=== PATIENT | female | born 1955 | race Caucasian/White ===

== ENCOUNTER 2021-06-05 08:48 | Outpatient (REF) | payer OTHER, SELFPAY ==
[2021-06-05 09:06] LABS: MANUAL DIFF FLAG NO
[2021-06-05 09:26] LABS: Basophils Percent Auto 0.2 % (0-2); Hematocrit 41.2 % (37.0-47.0); Hemoglobin 13.2 g/dl (12.0-16.0); Imm Gran Abs Auto 0.01 X10*3/uL (0.00-0.03); Imm Gran Pct Auto 0.2 % (0.0-0.4); Lymphocytes Absolute Auto 0.4 X10*3/uL (1.2-4.9); Lymphocytes Percent Auto 9.9 % (20-40); Mean Corpuscular Volume 87.3 fL (80.0-98.0); Mean Platelet Volume 9.7 fL (9.4-12.3); Monocytes Absolute Auto 0.4 X10*3/uL (0.1-1.2); Monocytes Percent Auto 9.7 % (2-11); Neutrophils Absolute Auto 3.2 x10*3/uL (2.0-8.3); Platelet Count 161 X10*3/uL (160-400); Red Blood Count 4.72 X10*6/uL (4.20-5.50); Red Cell Distribution Width 13.3 % (11.0-16.0)
[2021-06-05 09:32] LABS: Estimated Average Glucose 97 mg/dL
[2021-06-05 10:07] LABS: Alanine Aminotransferase 14 U/L (0-31); Alkaline Phosphatase 93 U/L (39-117); Anion Gap 12 (12-20); Aspartate Amino Transferase 18 U/L (5-31); Bilirubin Total 0.6 mg/dL (0.0-1.0); Blood Urea Nitrogen 21 mg/dL (9-16); Calcium 9.2 mg/dL (8.4-10.2); Carbon Dioxide 27 mmol/L (22-29); Chloride 107 mmol/L (96-108); Cholesterol 166 mg/dL; Estimated Glomerular Filt Rate > 60; Glucose Fasting 100 mg/dL (60-99); HDL Cholesterol 46 mg/dL; LDL Cholesterol Calculated 96 mg/dl; Potassium 4.4 mmol/L (3.3-5.1); Sodium 142 mmol/L (135-145); Total Protein 6.1 g/dL (6.5-8.0); Triglycerides 122 mg/dL
[2021-06-05 10:14] LABS: TSH reflex Free T4 1.26 uIU/mL (0.32-4.0)
[2021-06-05 10:31] LABS: Folate 8.4 ng/mL (> or = 4.0); Vitamin B12 < 146 pg/mL (200-900)
[2021-06-09 13:40] LABS: Vitamin D 25-OH, D2 <4 ng/mL; Vitamin D 25-OH, D3 21 ng/mL; Vitamin D 25-OH, Total 21 ng/mL (30-100)
== END 2021-06-05 08:49 | disposition home or self-care (01) ==
LOC: HO.LAB 08:48
PROVIDERS: PCP Nurse Practitioner Acute Care; Visit Provider Nurse Practitioner Acute Care
DX: I10 Essential (primary) hypertension (principal)
CPT/HCPCS: 36415; 80053; 80061; 82306; 82607; 82746; 83036; 84443; 85025

== ENCOUNTER 2021-06-24 17:16 | Emergency (ER) | payer OTHER, SELFPAY ==
[2021-06-24 17:20] VITALS: BP 159/77; PULSE 76; RESP 18; TEMP 36.1; O2SAT 97; BMI 37.3
--- NOTE | 2021-06-24 18:21 | ED.SKABFB ---
HPI - Skin/Abscess/Foreign Bdy General Chief complaint: Skin/Abscess/Foreign Body Stated complaint: rash on chest/face/back Time Seen by Provider: 06/24/21 17:39 Source: patient Mode of arrival: ambulatory History of Present Illness HPI narrative: 66-year-old female with a past medical history of hypertension, anxiety, depression, presenting to the ED complaining of pruritic rash to scalp, forehead, face, chest, back, and arms x1.5 months. Reports rash is spreading. Admits was seen at Urgent Care given p.o. steroids and topical steroids without relief. States itching is becoming out of control. Denies new exposures/lotions or detergents, taken/insect bites, fever, new medications, travel, others with similar symptoms MD complaint: rash Onset (ago): month(s) Related Data Previous Rx's Medication Instructions Recorded clonidine HCl 0.2 mg tablet 0.2 mg PO BEDTIME #90 tab 05/18/21 duloxetine 60 mg capsule,delayed 60 mg PO DAILY #90 cap 05/18/21 release ibuprofen 800 mg tablet 800 mg PO Q8H PRN #14 tab 05/18/21 lisinopril 20 1 tab PO DAILY #90 tab 05/18/21 mg-hydrochlorothiazide 12.5 mg tablet triamcinolone acetonide 0.5 % 1 appl TOPICAL BID #15 g 05/29/21 topical cream cyanocobalamin (vitamin B-12) 1,000 mcg PO DAILY #30 cap 06/05/21 1,000 mcg capsule calcitriol 0.25 mcg capsule 0.25 mcg PO DAILY #30 cap 06/09/21 cetirizine 10 mg capsule (Zyrtec) 10 mg PO DAILY #14 cap 06/24/21 clobetasol 0.05 % scalp solution 1 appl TOPICAL DAILY PRN #50 ml 06/24/21 diphenhydramine HCl 25 mg capsule 25 mg PO TID PRN #14 cap 06/24/21 (Benadryl) ibuprofen 400 mg tablet 400 mg PO Q6H 7 Days #14 tab 06/24/21 prednisone 20 mg tablet 40 mg PO DAILY 5 Days #10 tab 06/24/21 Allergies Allergy/AdvReac Type Severity Reaction Status Date / Time No Known Allergies Allergy Verified 06/24/21 17:24 Review of Systems Review of Systems: Constitutional: No Fever, No Chills ENT/Mouth: No Ear Pain, No Nasal Congestion, No sore throat, No Rhinorrhea, No Swallowing Difficulty Cardiovascular: No Chest Pain, No SOB Respiratory: No Cough, No Sputum, No Wheezing Gastrointestinal: No Nausea, No Vomiting, No Diarrhea, No Constipation, No Abdominal pain Genitourinary: No Dysuria, No Urgency, No Flank Pain Musculoskeletal: No joint pain, No Myalgias, No Joint Swelling Skin: No Skin Lesions, + rash Neuro: No Weakness, No Numbness, No Paresthesias Yes all other systems are reviewed and are negative [facility] Past Medical History Attestation statement: The following information was validated with the patient. Medical History Anxiety Hypertension Insomnia Lumbar degenerative disc disease Major depression, chronic Surgical History History of arthroscopic knee surgery History of section History of cholecystectomy History of fusion of cervical spine History of gastric bypass History of hysterectomy History of tonsillectomy Family History Family History Mother No problems noted. Father No problems noted. Brother Substance use disorder Social History Social History Housing: House Patient Tobacco Use Status: Former Tobacco user Tobacco use type: Cigarette e-Cigarette/Vaping Use: Never Used Advance Directives: No Advance Directives Information Provided: No service: No Current occupational status: unemployed and retired Cognitive needs: No Hearing needs: No Vision needs: No Physical Exam Vital Signs: Vital Signs: Last Vital Signs Temp 97 F 06/24/21 17:20 Pulse 76 06/24/21 17:20 Resp 18 06/24/21 17:20 BP 159/77 H 06/24/21 17:20 Pulse Ox 97 06/24/21 17:20 BMI result Body Mass Index 37.3 Const: General: cooperative, healthy appearing, no acute distress, well developed and alert Orientation/consciousness: patient oriented x3 Limitations: no limitations HEENT: Other: No mucous membrane involvement Head: Yes normal to inspection and Yes atraumatic Ears: hearing grossly normal bilaterally General nose exam: Normal external nose present Face and sinus: Yes normal facial exam Eyes: General: appearance normal, both eyes and all related structures EOM: EOMs intact bilaterally Neck: Neck: Yes normal visual inspection and Yes no meningeal signs Resp: Effort & Inspection: normal respiratory effort and no respiratory distress Auscultation: clear to auscultation bilaterally Cardio: Rate: regular rate Heart sounds: S1 normal heart sound present and S2 normal heart sound present Skin: Other: + erythematous inflamed patch likelike rash noted to forehead and entire scalp, with skin thickening, no scaling, no pustules or drainage. + erythematous macules noted to chest, back, and arms rash blanchable. Not warm. No evidence of cellulitis. No palm or sole involvement Rashes: rashes noted Wounds: no wounds Neuro: General: patient oriented x3, tone normal and no meningeal signs Gait exam (Neuro): Normal gait present Extrem: General: Yes normal to inspection MDM - Skin/Abscess/Foreign Bdy MDM Narrative Medical decision making narrative: 66-year-old female with a past medical history of hypertension, anxiety, depression, presenting to the ED complaining of pruritic rash to scalp, forehead, face, chest, back, and arms x1.5 months. On exam vital signs stable, NAD, physical exam as above. Concern for atopic dermatitis vs psoriasis vs ? Allergic reaction although lower concern with duration of symptoms. Symptoms not consistent with SJS or TENs Plan: Symptomatic remedies, dermatology follow-up Medical Records Attestation: I reviewed the patient's medical records. Lab Data Attestation: I reviewed the patient's lab results. Discharge Plan Discharge Clinical Impression: Atopic dermatitis Patient Disposition: Home, Self-Care Instructions: Dermatitis (ED) Additional Instructions: You need to follow-up with Dermatology Clobetasol is a topical solution for her scalp, use as prescribed Prednisone as an oral steroid this will help with itching/rash. In addition take Benadryl at night as well make you drowsy, and Zyrtec during the day If symptoms persist or worsen, you have fever, or area begins to look infected please return to the ED Prescriptions: New clobetasol 0.05 % solution 1 appl topical DAILY PRN (Reason: rash) Qty: 50 0RF diphenhydramine HCl [Benadryl] 25 mg capsule 25 mg PO TID PRN (Reason: itching) Qty: 14 0RF Zyrtec 10 mg capsule 10 mg PO DAILY Qty: 14 0RF prednisone 20 mg tablet 40 mg PO DAILY 5 Days Qty: 10 0RF ibuprofen 400 mg tablet 400 mg PO Q6H 7 Days Qty: 14 0RF No Action triamcinolone acetonide 0.5 % cream 1 appl topical BID Qty: 15 0RF cyanocobalamin (vitamin B-12) 1,000 mcg capsule 1,000 mcg PO DAILY Qty: 30 2RF calcitriol 0.25 mcg capsule 0.25 mcg PO DAILY Qty: 30 2RF clonidine HCl 0.2 mg tablet 0.2 mg PO BEDTIME Qty: 90 0RF duloxetine 60 mg capsule,delayed release(DR/EC) 60 mg PO DAILY Qty: 90 0RF lisinopril-hydrochlorothiazide 20-12.5 mg tablet 1 tab PO DAILY Qty: 90 0RF ibuprofen 800 mg tablet 800 mg PO Q8H PRN (Reason: pain) Qty: 14 0RF Referrals: Bambi Reynolds PA [Physician [facility]] - Terrance Porter MD [Physician] - Genaro Cardoso MD [Physician] - Interventions: ED Discharge Assessment Last Done: 06/24/21 18:36 Discharge Date/Time: 06/24/21 18:37
== END 2021-06-24 18:37 | disposition home or self-care (01) ==
PROVIDERS: Emergency Provider Emergency Medicine Emergency Medical Services; PCP Nurse Practitioner Acute Care
DX: L20.9 Atopic dermatitis, unspecified (principal); I10 Essential (primary) hypertension
CPT/HCPCS: 99283

== ENCOUNTER 2021-07-17 10:57 | Emergency (ER) | payer OTHER, SELFPAY ==
[2021-07-17 11:06] VITALS: BP 131/74; PULSE 72; RESP 20; TEMP 36.2; O2SAT 100; BMI 35.4
--- NOTE | 2021-07-17 16:20 | ED_ITS ---
HPI - General Adult General Chief complaint: Skin/Abscess/Foreign Body Stated complaint: Rash for 3 months/facial swelling Time Seen by Provider: 07/17/21 14:56 Source: patient Mode of arrival: ambulatory Limitations: no limitations History of Present Illness HPI narrative: 66-year-old female healthy presents to ED for 3 months of age she tingling rash on face, chest, scalp, and upper extremities. Patient has been seen in the ER twice and been on steroids, Benadryl, and clobetasol. Patient seen by primary care provider on 30 of June and has dermatology appointment on the 28 of July. Patient also has a referral to Allergy and immunology doctor in October. Patient denies ever having any fever, chest pain, shortness of breath, or joint swelling. Patient denies any new cosmetics, foods, detergents, or new clothes. Patient states no one else at home having the symptoms. Patient denies going to the wound to being bitten by ticks. Related Data Previous Rx's Medication Instructions Recorded clonidine HCl 0.2 mg tablet 0.2 mg PO BEDTIME #90 tab 05/18/21 duloxetine 60 mg capsule,delayed 60 mg PO DAILY #90 cap 05/18/21 release ibuprofen 800 mg tablet 800 mg PO Q8H PRN #14 tab 05/18/21 lisinopril 20 1 tab PO DAILY #90 tab 05/18/21 mg-hydrochlorothiazide 12.5 mg tablet triamcinolone acetonide 0.5 % 1 appl TOPICAL BID #15 g 05/29/21 topical cream cyanocobalamin (vitamin B-12) 1,000 mcg PO DAILY #30 cap 06/05/21 1,000 mcg capsule calcitriol 0.25 mcg capsule 0.25 mcg PO DAILY #30 cap 06/09/21 cetirizine 10 mg capsule (Zyrtec) 10 mg PO DAILY #14 cap 06/24/21 clobetasol 0.05 % scalp solution 1 appl TOPICAL DAILY PRN #50 ml 06/24/21 diphenhydramine HCl 25 mg capsule 25 mg PO TID PRN #14 cap 06/24/21 (Benadryl) ibuprofen 400 mg tablet 400 mg PO Q6H 7 Days #14 tab 06/24/21 prednisone 10 mg tablet 10 mg PO DAILY #63 tab 07/04/21 cetirizine 10 mg capsule 10 mg PO DAILY 10 Days #10 cap 07/17/21 hydroxyzine HCl 50 mg tablet 50 mg PO TID PRN 7 Days #21 tab 07/17/21 prednisone 20 mg tablet 40 mg PO DAILY 5 Days #10 tab 07/17/21 Allergies Allergy/AdvReac Type Severity Reaction Status Date / Time No Known Allergies Allergy Verified 06/30/21 10:35 Review of Systems Review of Systems: Itchy rash Yes all other systems are reviewed and are negative [facility] Past Medical History Medical History (Updated 07/17/21 @ 16:37 by CHI Gonzales) Anxiety Encounter to establish care Hypertension Insomnia Lumbar degenerative disc disease Major depression, chronic Surgical History History of arthroscopic knee surgery History of section History of cholecystectomy History of fusion of cervical spine History of gastric bypass History of hysterectomy History of tonsillectomy Family History Family History Mother No problems noted. Father No problems noted. Brother Substance use disorder Social History Social History Housing: House Patient Tobacco Use Status: Former Tobacco user Tobacco use type: Cigarette e-Cigarette/Vaping Use: Never Used Advance Directives: No Advance Directives Information Provided: Yes Patient : No service: No Current occupational status: unemployed and retired Cognitive needs: No Hearing needs: No Vision needs: No Physical Exam ED Vital Signs: Vital Signs - 24 hr 07/17/21 11:06 Temperature 97.1 F Pulse Rate 72 Respiratory Rate 20 Blood Pressure 131/74 Pulse Oximetry 100 BMI result Body Mass Index 35.4 Const General: cooperative, healthy appearing, comfortable, no acute distress, well developed, alert, awake and Physically active Orientation/consciousness: patient oriented x3 HENMT Other: . negative for facial swelling. Head: Yes normal to inspection, Yes No palpable skull fracture present, Yes normocephalic, Yes atraumatic and No abrasion Head images: 1. Positive for allergic reaction rash. Negative for any vesicles or peeling. Negative for any weeping. Negative for any lip swelling, tongue swelling, or swelling of uvula. 2. Positive for allergic reaction rash. Negative for any vesicles or peeling. Negative for any weeping. Negative for any lip swelling, tongue swelling, or swelling of uvula. Eyes General: appearance normal, both eyes and all related structures Neck Neck: Yes normal visual inspection, Yes full ROM, Yes no lymphadenopathy, Yes no meningeal signs, Yes trachea midline, Yes supple, No anterior neck swelling and No tender Neck images: 1. Positive for allergic reaction rash. Negative for any vesicles or peeling. Negative for any weeping. Chest Chest palpation & inspection: normal inspection of the chest and normal palpation of entire chest wall Resp Effort & Inspection: normal respiratory effort and able to speak in complete sentences Auscultation: clear to auscultation bilaterally Cardio Jugular venous distension: no JVD Heart sounds: S1 normal heart sound present and S2 normal heart sound present GI Inspection: Yes normal to inspection and No abdominal wall ecchymosis Palpation (GI): Soft to palpation, not firm, nontender and no guarding General: No CVA tenderness and Yes no CVA tenderness Back/Spine/Pelvis Back: no CVA tenderness, No CVA tenderness and No back tenderness Skin Other: Allergic burning rash. General skin exam: no rashes or lesions noted and elasticity normal Neuro General: patient oriented x3, gait normal, tone normal, no meningeal signs and CN's II-XI intact bilaterally Cranial nerves: Yes CN's II-XII intact bilaterally Extrem Other: Mild upper extremities General: Yes normal to inspection and Yes full ROM Psych Appearance: grossly normal, well kempt and not disheveled Course Course Course Narrative: Allergic reaction rash. Reevaluation(s) Reevaluation #1: No further intervention needed in the ER visit. Patient given reassurance and inform necessity to keep appointment with digital marketing assistant. Patient was informed to call digital marketing assistant to see the CT of earlier appointment. She also formed to call stencil typist and conductor sleeping car to make sure if she can come in earlier. Patient will be discharged with Atarax, Pepcid, and steroids Time: 16:31 Medical Decision Making MDM Narrative Medical decision making narrative: A topic dermatitis Discharge Plan Discharge Clinical Impression: Atopic dermatitis Patient Disposition: Home, Self-Care Instructions: Dermatitis (ED) Additional Instructions: You will be prescribed with steroids, Atarax, and Pepcid. Please call digital marketing assistant or early appointment. Also called stencil typist and conductor sleeping car for earlier appointment. Return to the ED immediately for sensation of throat closing, shortness of breath, lip swelling, chest pain, worsening rash, tongue s welling, fever, chills, or any other concerning symptoms. Prescriptions: New prednisone 20 mg tablet 40 mg PO DAILY 5 Days Qty: 10 0RF hydroxyzine HCl 50 mg tablet 50 mg PO TID PRN (Reason: itching) 7 Days Qty: 21 0RF cetirizine 10 mg capsule 10 mg PO DAILY 10 Days Qty: 10 0RF No Action triamcinolone acetonide 0.5 % cream 1 appl topical BID Qty: 15 0RF cyanocobalamin (vitamin B-12) 1,000 mcg capsule 1,000 mcg PO DAILY Qty: 30 2RF calcitriol 0.25 mcg capsule 0.25 mcg PO DAILY Qty: 30 2RF prednisone 10 mg tablet 10 mg PO DAILY Qty: 63 0RF Rx Instructions: Take 6 tablets for 3 days then, Take 5 tablets for 3 days then, Take 4 tablets for 3 days then, Take 3 tablets for 3 days then, Take 2 tablets 3 days then, Take 1 tablet 3 days and stop clobetasol 0.05 % solution 1 appl topical DAILY PRN (Reason: rash) Qty: 50 0RF diphenhydramine HCl [Benadryl] 25 mg capsule 25 mg PO TID PRN (Reason: itching) Qty: 14 0RF Zyrtec 10 mg capsule 10 mg PO DAILY Qty: 14 0RF ibuprofen 400 mg tablet 400 mg PO Q6H 7 Days Qty: 14 0RF clonidine HCl 0.2 mg tablet 0.2 mg PO BEDTIME Qty: 90 0RF duloxetine 60 mg capsule,delayed release(DR/EC) 60 mg PO DAILY Qty: 90 0RF lisinopril-hydrochlorothiazide 20-12.5 mg tablet 1 tab PO DAILY Qty: 90 0RF ibuprofen 800 mg tablet 800 mg PO Q8H PRN (Reason: pain) Qty: 14 0RF Interventions: ED Discharge Assessment Last Done: 07/17/21 17:04 Discharge Date/Time: 07/17/21 17:14 Print Language: Greenlandic
== END 2021-07-17 17:14 | disposition home or self-care (01) ==
PROVIDERS: Emergency Provider Emergency Medicine; PCP Nurse Practitioner Acute Care
DX: L20.9 Atopic dermatitis, unspecified (principal); I10 Essential (primary) hypertension
CPT/HCPCS: 99283

== ENCOUNTER 2021-08-08 10:25 | Outpatient (REF) | payer OTHER, SELFPAY ==
--- NOTE | ~2021-08-08 | MM_ITS ---
EXAMINATION: MM SCREENING DIGITAL BREAST TOMOSYNTHESIS, BILATERAL CLINICAL INFORMATION: Screening. Asymptomatic. The lifetime risk of breast cancer based on the Tyrer-Cuzick Model is 12.1%. COMPARISON: Mammography: None. TECHNIQUE: Digital breast tomosynthesis is performed in both the craniocaudal and mediolateral oblique views along with computer-aided detection (CAD). Synthesized 2D images are generated from the tomosynthesis. FINDINGS: There are scattered areas of fibroglandular density (ACR BI-RADS breast composition Category b). About the anterior aspect of the right breast there is an irregularly marginated density with some calcifications present for which spot magnification views are recommended. Within the left breast about the deep lateral aspect there is a 4 x 3 mm circumscribed density with calcification present. Spot magnification views of this location are recommended as well. MM/MM tomosynthesis screening BI IMPRESSION: Bilateral breast densities for further evaluation as described. ASSESSMENT: BI-RADS 0: Incomplete - Need Additional Imaging Evaluation RECOMMENDATION: 1. Additional views of the bilateral breasts. 2. Targeted ultrasound if warranted after review of the additional views. 3. Radiology department staff will contact the patient for additional imaging.
--- NOTE | ~2021-08-08 | MM_ITS ---
EXAMINATION: BONE DENSITOMETRY CLINICAL INDICATION: Menopause. COMPARISON: None (current study represents initial baseline exam). TECHNIQUE: Using a [employer] DXA System (software version: 13.1) manufactured by [employer]), dual-energy x-ray absorptiometry was performed of the lumbar spine and left hip. The images are of good technical quality. Summary results are attached. FINDINGS: AP SPINE L1-L4: BMD 1.192 g/cm2, Z-score 0.6, T-score 0.1, normal. LEFT FEMUR, NECK: BMD 0.742 g/cm2, Z-score -1.4, T-score -2.1, osteopenia. LEFT FEMUR, TOTAL: BMD 0.754 g/cm2, Z-score -1.6, T-score -2.0, osteopenia. IDENTIFIED RISK FACTORS: Menopause, hysterectomy, bilateral oophorectomy, family history (parent hip fracture), glucocorticoids (chronic), secondary osteoporosis. HISTORY OF FRACTURE: None listed. MEDICATIONS: Calcium, vitamin D. MM/XR DEXA axial skeleton IMPRESSION: 1. DIAGNOSIS: Osteopenia based on the lowest T-score value of -2.1 in the femoral neck applying World Health Organization criteria. 2. 10-YEAR FRACTURE RISK PREDICTION, FRAX: Major osteoporotic fracture (clinical spine, forearm, hip or shoulder) 25.7%. Hip fracture 2.4%. 3. Treatment Recommendations: NOF guidelines recommend consideration for treatment in postmenopausal women and men age 50 and older presenting with the following: -A hip or vertebral (clinical or morphometric) fracture. -T-score less than or equal to -2.5 at the femoral neck or spine after appropriate evaluation to exclude secondary causes. -Low bone mass at the hip or spine and a 10-year fracture probability by FRAX of greater than or equal to 3% for hip fracture or greater than or equal to 20% for major osteoporotic fracture based on the [place] adapted WHO algorithm. 4. Other Recommendations: All treatment decisions require clinical judgment and consideration of individual patient factors, including patient preferences, comorbidities, previous drug use, risk factors not captured in the FRAX model (e.g. frailty, falls, vitamin D deficiency, increased bone turnover, interval significant decline in bone density) and possible under or overestimation of fracture risk by FRAX. Additional medical evaluation for secondary cause of low bone mineral density may be appropriate. FUTURE SCAN RECOMMENDATION: People with diagnosed cases of osteoporosis or at high risk for fracture should have regular bone mineral density tests. For patients eligible for Medicare, routine testing is allowed once every 2 years. The testing frequency can be increased to one year for patients who have rapidly progressing disease, those who are receiving or discontinuing medical therapy to restore bone mass, or have additional risk factors.
== END 2021-08-08 10:26 | disposition home or self-care (01) ==
LOC: HO.MAMMO 10:25
PROVIDERS: PCP Nurse Practitioner Acute Care; Visit Provider Nurse Practitioner Family
DX: Z12.31 Encounter for screening mammogram for malignant neoplasm of breast (principal); Z13.820 Encounter for screening for osteoporosis; Z78.0 Asymptomatic menopausal state; M85.80 Other specified disorders of bone density and structure, unspecified site
CPT/HCPCS: 77063; 77067; 77080

== ENCOUNTER 2021-08-10 11:22 | Outpatient (REF) | payer OTHER, SELFPAY ==
[2021-08-15 07:55] LABS: SM/Ribonucleoprotein Ab <1.0 NEG AI (<1.0 NEG); Smith Protein <1.0 NEG AI (<1.0 NEG)
[2021-08-15 10:36] LABS: ANA Pattern 2 Nuclear, Speckled; ANA Titer 2 1:40 titer; Anti Nuclear Antibody Pattern Nuclear, Homogeneous; Anti Nuclear Antibody Screen POSITIVE (NEGATIVE)
[2021-08-15 12:26] LABS: Aldolase 7.2 U/L (<=8.1)
== END 2021-08-10 11:23 | disposition home or self-care (01) ==
LOC: HO.LAB 11:22
PROVIDERS: PCP Nurse Practitioner Family; Visit Provider Dermatology
DX: L30.9 Dermatitis, unspecified (principal); M33.12 Other dermatomyositis with myopathy
CPT/HCPCS: 36415; 82085; 82550; 86038; 86039; 86235

== ENCOUNTER → 2021-09-12 14:51 | Outpatient (BNVA) | payer OTHER, SELFPAY | PROVIDERS: PCP Nurse Practitioner Family; Visit Provider Internal Medicine Endocrinology, Diabetes & Metabolism | DX: M85.80 Other specified disorders of bone density and structure, unspecified site (principal) | CPT/HCPCS: 99202 ==

== ENCOUNTER 2021-09-13 13:03 | Outpatient (REF) | payer OTHER, SELFPAY ==
--- NOTE | ~2021-09-13 | MM_ITS ---
EXAMINATION: MM DIAGNOSTIC DIGITAL BREAST TOMOSYNTHESIS, BILATERAL US DIAGNOSTIC ULTRASOUND BREAST, RIGHT CLINICAL INFORMATION: Recall from screening for bilateral findings: Punctate density posterior outer left breast; calcifications and density anterior right breast. Patient notes history dermatomyositis. BRCA negative. Family history breast cancer, father approximately age 60. COMPARISON: Mammography: 09/13/2021, outside mammography 10/19/2019, 11/03/2018, 10/17/2018 ([place], [place]). TECHNIQUE: Digital breast tomosynthesis is performed. 2D images are generated from the tomosynthesis. The following views are obtained: Magnification right CC x2, magnification right ML, magnification left CC, bilateral spot CC, spot right ML. Ultrasound right breast is targeted to the retroareolar and periareolar region. Grayscale imaging and color Doppler are performed without and with harmonics. FINDINGS: There are scattered areas of fibroglandular density (ACR BI-RADS breast composition Category b). Additional views left breast show no asymmetric density or abnormal calcifications in the area for recall. Left breast may be reassessed again in one year at time of annual exam. Additional views right breast shows subtle increased stromal markings retroareolar breast just medial to midline since outside imaging. There is no focal mass or focal architectural abnormality. There are scattered subtle new amorphous calcifications in this area, some possibly vascular. There are other incidental calcifications in the central upper right breast which are clearly benign rim type. Ultrasound right breast demonstrates no focal cystic or solid mass or architectural abnormality. No focal duct ectasia. No ultrasound correlate. Results and management options are discussed with the patient. There is no history right breast trauma. Given the subtle changes right breast, family history, and personal history dermatomyositis, stereotactic sampling targeted to the amorphous calcifications retroareolar area is suggested. Patient is in agreement. MM/MM tomosynthesis added view BI IMPRESSION: Subtle increased stromal markings with scattered faint amorphous calcifications medial retroareolar right breast. ASSESSMENT: BI-RADS 4: Suspicious RECOMMENDATION: Stereotactic sampling retroareolar right breast medial to midline. This patient's information was entered into a reminder system with a target due date for their next mammogram.
== END 2021-09-13 13:04 | disposition home or self-care (01) ==
LOC: HO.MAMMO 13:03
PROVIDERS: PCP Nurse Practitioner Family; Visit Provider Nurse Practitioner Family
DX: R92.2 Inconclusive mammogram (principal)
CPT/HCPCS: 76642; 77062; 77066

== ENCOUNTER 2021-09-18 14:48 | Outpatient (REF) | payer OTHER, SELFPAY ==
[2021-09-18 16:42] LABS: Creatinine, mg/dL 95.25
[2021-09-18 16:46] LABS: Creatinine, mg/dL 95.54
[2021-09-18 17:56] LABS: Creatinine, 24Hr Urine 0.7 G/Day (1.0-2.0); Sodium 24 Hr Urine 90.3 mmol/Day (40-220); Total Volume 24 Hour Urine 700 mL
[2021-09-18 17:57] LABS: Creatinine, 24Hr Urine 0.7 G/Day (1.0-2.0); Total Volume 24 Hour Urine 700 mL
[2021-09-20 18:32] LABS: Calcium, 24 Hr Urine 113 mg/24 h; Calcium/Creatinine Ratio 176 mg/g creat (30-275); Creatinine 24Hr Urine 0.64 g/24 h (0.50-2.15)
== END 2021-09-18 14:49 | disposition home or self-care (01) ==
LOC: HO.LNP 14:48
PROVIDERS: Visit Provider Internal Medicine Endocrinology, Diabetes & Metabolism
DX: M85.80 Other specified disorders of bone density and structure, unspecified site (principal)
CPT/HCPCS: 82340; 82570; 84300

== ENCOUNTER 2021-09-20 09:34 | Outpatient (REF) | payer OTHER, SELFPAY ==
--- NOTE | ~2021-09-20 | MM_ITS ---
EXAMINATION: STEREOTACTIC TOMOSYNTHESIS-GUIDED VACUUM-ASSISTED BREAST BIOPSY, RIGHT SPECIMEN RADIOGRAPH, RIGHT POST PROCEDURE DIGITAL MAMMOGRAM, RIGHT CLINICAL INFORMATION: Subtle increased stromal markings with scattered faint amorphous calcifications. Recent diagnosis dermatomyositis. BRCA negative. Family history breast cancer, father approximately age 60. COMPARISON: Mammography 08/08/2021, 09/13/2021. TECHNIQUE/PROCEDURE: Informed consent was obtained from the patient after discussion of the benefits, risks, and alternatives to biopsy today. Patient appeared to understand. Gave opportunity for questions. Patient signed consent form. BIOPSY TABLE: [employer] Aff[employer] Prone Biopsy System. LESION: Amorphous calcifications anterior breast and subtle increased stromal markings. LOCAL ANESTHESIA: 10 mL carbonated 1% lidocaine; 10 mL 1% lidocaine with epinephrine. DERMATOTOMY: Single skin asa dermatotomy performed. NEEDLE: [employer] 9-gauge vacuum assisted core biopsy device. APPROACH: Medial lateral. TARGETING: Combination of digital breast tomosynthesis and stereotactic digital mammography used for targeting. CORES: 10. CLIP: [employer] T-shaped marker. SPECIMEN RADIOGRAPH: Specimen radiograph is taken in separate room using digital mammography. The index calcifications are in the excised cores. There are over 25 calcifications in the cores. POST PROCEDURE UNILATERAL DIGITAL MAMMOGRAM: The post biopsy mammogram is performed in separate room using separate digital mammography equipment from the biopsy procedure. CC and LM views are obtained. There are scattered areas of fibroglandular density (breast composition category: b). The clip marker is in position. The calcifications are decreased at the biopsy site. No gross hematoma. The patient tolerated the procedure well. No immediate complications. Home instructions reviewed with the patient. Final pathology results are pending. MM/MM stereotactic biopsy RT IMPRESSION: 1. Digital tomosynthesis-guided core biopsy right breast with clip placement. 2. Specimen radiograph taken and post procedure mammogram. There is satisfactory positioning of the biopsy clip. 3. Final pathology results pending. An addendum report will be issued.
[2021-09-20] MEDS: Sodium Bicarbonate 8.4% 50 MEQ/50 ML VIAL SUBCUT (11:06)
== END 2021-09-20 09:35 | disposition home or self-care (01) ==
LOC: HO.MAMMO 09:34
PROVIDERS: Radiology Diagnostic Radiology; PCP Nurse Practitioner Family; Visit Provider Surgery
DX: R92.1 Mammographic calcification found on diagnostic imaging of breast (principal)
CPT/HCPCS: 19081; 36415; 88305; 88341; 88342; 88360; 88374; 99202; A4648

== ENCOUNTER → 2021-09-25 12:57 | Outpatient (BNVA) | payer OTHER, SELFPAY | PROVIDERS: PCP Nurse Practitioner Family; Visit Provider Surgery | DX: C50.911 Malignant neoplasm of unspecified site of right female breast (principal); Z98.890 Other specified postprocedural states | CPT/HCPCS: 99212 ==

== ENCOUNTER 2021-09-28 16:33 | Outpatient (REF) | payer OTHER, SELFPAY ==
--- NOTE | ~2021-09-28 | US_ITS ---
EXAMINATION: US VENOUS ULTRASOUND WITH DOPPLER LOWER EXTREMITY, BILATERAL CLINICAL INFORMATION: History of pulmonary embolism. COMPARISON: None TECHNIQUE: Ultrasound of the deep veins is performed from the hip to the calf with compression sonography and color and pulse Doppler assessment. Spectral analysis with color-flow imaging is performed. FINDINGS: RIGHT: There is normal venous compression and respiratory variation and augmented flow. The visualized common femoral vein, superficial femoral vein, profunda femoral vein, popliteal vein, and the trifurcation region shows no evidence of deep venous thrombosis. There is no significant popliteal fossa cyst. LEFT: There is normal venous compression and respiratory variation and augmented flow. The visualized common femoral vein, superficial femoral vein, profunda femoral vein, popliteal vein, and the trifurcation region shows no evidence of deep venous thrombosis. There is no significant popliteal fossa cyst. If the patient's symptoms persist, followup ultrasound in 5 days 7 days might be of value to exclude proximal propagation from a non-visualized calf vein. US/US venous duplex LE BI IMPRESSION: No DVT demonstrated in the both lower extremity.
== END 2021-09-28 16:34 | disposition home or self-care (01) ==
LOC: HO.US 16:33
PROVIDERS: Visit Provider Internal Medicine
DX: I82.403 Acute embolism and thrombosis of unspecified deep veins of lower extremity, bilateral (principal); M33.90 Dermatopolymyositis, unspecified, organ involvement unspecified
CPT/HCPCS: 93970

== ENCOUNTER → 2021-10-04 08:08 | Outpatient (BNV) | payer MEDICARE, OTHER, MEDICAID, SELFPAY | PROVIDERS: PCP Nurse Practitioner Family; Referring Provider Surgery; Visit Provider Internal Medicine Medical Oncology | DX: C50.911 Malignant neoplasm of unspecified site of right female breast (principal) | CPT/HCPCS: 99204; 99212; 99213; 99214 ==

== ENCOUNTER 2021-10-05 11:00 | Outpatient (REF) | payer OTHER, SELFPAY ==
[2021-10-05 14:04] LABS: C Reactive Protein 0.16 mg/dL (< or = 0.50)
[2021-10-05 14:26] LABS: Vitamin D 25-OH Total 41.8 ng/mL (>30)
[2021-10-05 14:36] LABS: Erythrocyte Sedimentation Rate 7 MM/HR (0-20)
[2021-10-06 04:45] LABS: HBsAGNum1 0.16 S/CO (0.00-0.99); Hepatitis A Antibody IgM 0.13 Index (0-0.79); Hepatitis B Surface Antigen Negative (Negative); ~HepC Num1 0.05 S/CO (0.00-0.79); ~Hepatitis A Antibody IgM Nonreactive (Nonreactive); ~Hepatitis B Surface Antibody REACTIVE (Nonreactive); ~Hepatitis C Antibody Nonreactive (Nonreactive)
[2021-10-06 07:58] LABS: HBc Num2 8.29 S/CO; Hepatitis B Core Antibody Reactive (Nonreactive)
[2021-10-07 23:32] LABS: TS Negative Control Passed; TS Panel A 0; TS Panel B 0; TS Positive Control Passed; TSpotTB Negative (Negative)
[2021-10-18 09:22] LABS: EJ Autoantibodies NOT DETECTED (NOT DETECTED); MI 2 Autoantibodies NOT DETECTED (NOT DETECTED); OJ Autoantibodies NOT DETECTED (NOT DETECTED); PL 12 Autoantibodies NOT DETECTED (NOT DETECTED); PL 7 Autoantibodies NOT DETECTED (NOT DETECTED)
== END 2021-10-05 11:01 | disposition home or self-care (01) ==
LOC: HO.10HDL 11:00
PROVIDERS: Absent Provider Nurse Practitioner Family; Referring Provider Internal Medicine Endocrinology, Diabetes & Metabolism; Visit Provider Internal Medicine Rheumatology
DX: M85.80 Other specified disorders of bone density and structure, unspecified site (principal); M33.90 Dermatopolymyositis, unspecified, organ involvement unspecified; E55.9 Vitamin D deficiency, unspecified; C50.911 Malignant neoplasm of unspecified site of right female breast; Z79.899 Other long term (current) drug therapy
CPT/HCPCS: 36415; 82306; 82550; 84100; 84443; 85652; 86140; 86481; 86704; 86705; 86706; 86709; 86803; 87340; 99202

== ENCOUNTER → 2021-10-16 13:33 | Outpatient (REF) | payer OTHER, SELFPAY ==
--- NOTE | ~2021-10-16 | XR_ITS ---
EXAMINATION: XR CHEST CLINICAL INFORMATION: Dermatopolymyositis COMPARISON: None TECHNIQUE: 2 views of the chest were obtained. FINDINGS: The cardiac and mediastinal contours are normal. The lungs are clear. There is no pleural effusion or pneumothorax. There are degenerative changes of the thoracic spine. There are postsurgical changes to the lower cervical spine. XR/XR chest 2V IMPRESSION: No evidence for acute disease in the chest.
--- NOTE | 2021-10-16 13:39 | ECG_ITS ---
Test Reason : DERMATOPOLYMYOSITIS Blood Pressure : / mmHG Vent. Rate : 081 BPM Atrial Rate : 081 BPM P-R Int : 130 ms QRS Dur : 076 ms QT Int : 360 ms P-R-T Axes : 085 048 050 degrees QTc Int : 418 ms Sinus rhythm with Premature atrial complexes Low voltage QRS Borderline ECG No previous ECGs available Referred By: Panda Felix Electronically Signed By:SHEA MIR
== END ==
LOC: HO.CARD 13:33
PROVIDERS: PCP Nurse Practitioner Family; Visit Provider Internal Medicine Rheumatology
DX: M33.90 Dermatopolymyositis, unspecified, organ involvement unspecified (principal)
CPT/HCPCS: 71046; 93005

== ENCOUNTER 2021-10-17 06:45 | Day surgery (SDC) | payer OTHER, SELFPAY ==
[2021-10-12 08:42] VITALS: BMI 38.7
--- NOTE | 2021-10-16 08:23 | HO.ANESPROP2 ---
Documented by User: Tamra Amaya NP 10/16/21 08:39 HPI - Anesthesia Eval Consult details Narrative: 66yo F for Right Breast Lumpectomy/Needle Loc, [place] Node Biopsy Recent dx of dermatomyositis. Symptoms began in May with facial/scalp rash. Also some fatigue/muscle weakness. Started on high dose daily prednisone. Recently saw C Rheum. Prednisone being tapered and started on azathioprine. Pending CXR and EKG. Pt will come in 10/16/21 to have done prior to DOS. PMFSH Active Problems Active Problems: All Active Problems (Updated 10/12/21 @ 08:50 by Mignon Stroud, RN) Seborrheic dermatitis (Acute) Vitamin B12 deficiency (Acute) Vitamin D deficiency (Acute) Post-menopausal (Acute) Osteopenia (Acute) Macular degeneration (senile) of retina (Acute) group home current use of immunosuppressive drug (Acute) Low TSH level (Acute) Invasive ductal carcinoma of right breast (Acute) Dermatomyositis (Acute) Lumbar degenerative disc disease (Acute) Anxiety (Acute) Insomnia (Acute) Major depression, chronic (Acute) Hypertension (Acute) Past Medical History Medical History (Updated 10/12/21 @ 08:50 by Mignon Stroud, RN) Anxiety Breast calcification, right Breast cancer, right Dermatomyositis Encounter to establish care History of COVID-19 Hypertension Insomnia Invasive ductal carcinoma of right breast Lumbar degenerative disc disease Major depression, chronic Pain in both feet Pedal edema Family History Family History Mother No problems noted. Father Breast cancer Bone cancer Brother Substance use disorder Paternal Aunt Breast cancer Surgical History Surgical History (Updated 10/04/21 @ 12:13 by Patrick Hernández MD) History of arthroscopic knee surgery History of section History of cholecystectomy History of fusion of cervical spine History of gastric bypass History of hysterectomy History of tonsillectomy Social History Social History Housing: House Are you a primary care management assistant to a significant other at home: No Do you presently have visiting nurse or other home services: No Patient Tobacco Use Status: Former Tobacco user Quit Date: 12 yrs ago Tobacco use type: Cigarette e-Cigarette/Vaping Use: Never Used Use of substances other than those prescribed or required for medical reasons: No Have you been hit, kicked, punched, or otherwise hurt by someone within the past year? If so, by whom?: No Are you DNR?: No Advance Directives: No Advance Directives Information Provided: Yes (mailed with preop instructions) Advance Directives on File: No Recently lost weight without trying: No Nutrition Risks: No Nutritional Risk Patient : No Poor oral hygiene: No service: No Current occupational status: unemployed and retired Cognitive needs: No Hearing needs: No Vision needs: No Meds Allergies Allergy/AdvReac Type Severity Reaction Status Date / Time No Known Allergies Allergy Verified 10/11/21 15:00 Home Medications Medication Instructions Recorded Confirmed Last Taken Type ketoconazole 2 % shampoo 1 appl topical 2XW 09/28/21 10/11/21 Unknown History mupirocin calcium 2 % topical cream 1 appl topical BID 09/28/21 10/11/21 Unknown History cyanocobalamin (vitamin B-12) 1,000 mcg PO BEDTIME 10/12/21 10/12/21 Unknown History 1,000 mcg capsule duloxetine 60 mg capsule,delayed 60 mg PO BEDTIME 10/12/21 10/12/21 Unknown History release prednisone 10 mg tablet 70 mg PO QAM 10/12/21 10/12/21 Unknown History Exam Exam Date and Time: October 16, [id number] Height,Weight and Vital Signs: Height 5 ft 3 in Weight 99.337 kg Pertinent Lab Results Pertinent Lab Results: Laboratory Tests 10/04/21 10/04/21 09:20 09:20 WBC 8.4 Hgb 11.2 L Hct 35.0 L Plt Count 157 L Sodium 142 Potassium 3.3 D Chloride 105 Carbon Dioxide 28 BUN 23 H Creatinine 0.69 Assessment and Plan Assessment Anesthesia Assessment: Chart Reviewed Documented by User: Juan Tracy MD 10/17/21 11:52 [facility] Past Medical History Medical History (Updated 10/12/21 @ 08:50 by Mignon Stroud RN) Anxiety Breast calcification, right Breast cancer, right Dermatomyositis Encounter to establish care History of COVID-19 Hypertension Insomnia Invasive ductal carcinoma of right breast Lumbar degenerative disc disease Major depression, chronic Pain in both feet Pedal edema Family History Family History Mother No problems noted. Father Breast cancer Bone cancer Brother Substance use disorder Paternal Aunt Breast cancer Family history of problems with anesthesia: No Surgical History Surgical History (Updated 10/04/21 @ 12:13 by Patrick Hernández MD) History of arthroscopic knee surgery History of section History of cholecystectomy History of fusion of cervical spine History of gastric bypass History of hysterectomy History of tonsillectomy History of Problems with Anesthesia: No Social History Social History Housing: House Are you a primary care management assistant to a significant other at home: No Do you presently have visiting nurse or other home services: No Patient Tobacco Use Status: Former Tobacco user Quit Date: 12 yrs ago Tobacco use type: Cigarette e-Cigarette/Vaping Use: Never Used Use of substances other than those prescribed or required for medical reasons: No Have you been hit, kicked, punched, or otherwise hurt by someone within the past year? If so, by whom?: No Are you DNR?: No Advance Directives: No Advance Directives Information Provided: Yes (mailed with preop instructions) Advance Directives on File: No Recently lost weight without trying: No Nutrition Risks: No Nutritional Risk Patient : No Poor oral hygiene: No service: No Current occupational status: unemployed and retired Cognitive needs: No Hearing needs: No Vision needs: No Meds Allergies Allergy/AdvReac Type Severity Reaction Status Date / Time No Known Allergies Allergy Verified 10/11/21 15:00 Home Medications Medication Instructions Recorded Confirmed Last Taken Type ketoconazole 2 % shampoo 1 appl topical 2XW 09/28/21 10/11/21 Unknown History mupirocin calcium 2 % topical cream 1 appl topical BID 09/28/21 10/11/21 Unknown History cyanocobalamin (vitamin B-12) 1,000 mcg PO BEDTIME 10/12/21 10/12/21 Unknown History 1,000 mcg capsule duloxetine 60 mg capsule,delayed 60 mg PO BEDTIME 10/12/21 10/12/21 Unknown History release prednisone 10 mg tablet 70 mg PO QAM 10/12/21 10/12/21 Unknown History Exam Narrative Narrative: last took prednisone yest., 60 mg CXR OK. Airway Mallampati Class: III TM Dist: <=3cm Neck ROM: Full Loose/Missing/Broken Teeth: Yes Heart: ok Lungs: ok Assessment and Plan Assessment Anesthesia Assessment: Anesthesia Plan Discussed and Chart Reviewed Final Anesthetic Review Family History of Problems with Anesthesia: No History of Problems with Anesthesia: No NPO: Yes ASA Class: III Final Preanesthetic Review: No Changes in Pt Med Stat, Meds/Allgs Chart Reviewed, Consent Obtained/Reviewed and Anes Risks/Benef Reviewed Patient Risk: High Procedure Risk: Low Anesthetic Plan Anesthetic Plan: GA and Agree w/ Assess. and Plan Disposition: Standard PACU
[2021-10-17] VITALS (9 sets, daily range): BP systolic 100–130; BP diastolic 36–70; PULSE 67–88; RESP 16–18; TEMP 36.3–36.8; O2SAT 96–98
--- NOTE | ~2021-10-17 | MM_ITS ---
EXAMINATION: MM MAMMOGRAM GUIDED NEEDLE LOCALIZATION BREAST, RIGHT MM NEEDLE LOCALIZATION SPECIMEN FROM THE RIGHT BREAST CLINICAL INFORMATION: Invasive ductal cancer right breast. COMPARISON: Mammography 08/09/2019, 09/13/2021, stereotactic biopsy 09/20/2021 TECHNIQUE NEEDLE LOC: Proper informed consent is obtained from the patient after discussion of the procedure, potential risks and complications, and alternatives including declining the procedure today. Patient was given an opportunity for questions. The patient appeared to understand. The patient consented to the procedure and signed the consent form. GUIDANCE: Digital mammography. APPROACH: Medial Lateral. TARGET: T shaped biopsy clip marker and faint amorphous calcifications anterior medial breast. ANESTHESIA: Carbonated lidocaine 1%: 5 mL. LOCALIZATION MARKER: [place] [employer]. 7.5 cm length. The skin is prepped and local anesthesia administered. The needle is positioned and position assessed with mammography. The wire is hooked into position. [place] needle protector placed. The patient tolerated the procedure well and had no immediate complication. Following the procedure, 4% lidocaine ointment was administered to the right areola and covered with Tegaderm in anticipation of nuclear lymphoscintigraphy injection for sentinel lymph node mapping. Procedure results called to durable medical equipment technician (Ayleen) for Dr. Palacios following the procedure. TECHNIQUE SPECIMEN RADIOGRAPH: Imaging of the excised specimen is performed using digital mammography in 1 view. FINDINGS SPECIMEN RADIOGRAPH: The specimen shows the needle and hookwire are delivered intact. The biopsy clip marker and index calcifications are identified in the specimen. Results were called to Dr. Domo Palacios in the operating room at the time of imaging. MM/MM needle loc RT IMPRESSION: 1. Status post right breast needle localization with wire hooked into position. 2. Post operative specimen radiograph obtained.
--- NOTE | ~2021-10-17 | NM_ITS ---
EXAMINATION: NM LYMPH SCINTIGRAPHY CLINICAL INFORMATION: Breast cancer. COMPARISON: None TECHNIQUE: The skin nipple interface of the right breast at the 12, 3, 6, and 9 o'clock axes were injected with 4 separate 0.125 mCi doses of technetium 99m labeled Lymphoseek for a total dose of 0.5 mCi. Anterior, [place] and right lateral imaging of the chest was performed at 20 minutes. FINDINGS: There is adequate radiotracer uptake seen in the right breast. There is sentinel node activity seen in the right axilla. NM/NM sentinel node w imaging IMPRESSION: [place] node activity seen in the right axilla.
[2021-10-17] MEDS: Lidocaine HCl 1 % 20 ML VIAL 10 ML SUBCUT (09:26)
[2021-10-17] MEDS: Sodium Bicarbonate 8.4% 50 MEQ/50 ML VIAL SUBCUT (09:27)
[2021-10-17] MEDS: Lactated Ringers 1,000 ML 100 ML IVCONT (09:33)
--- NOTE | 2021-10-17 10:53 | MHC.SHP ---
Pre-Procedural Eval Section A Date of Service: 10/17/21 The patient is an INPATIENT: No Changes since office visit: No Cold of Flu in the past 2 weeks, No New Medical Problems, No Changes in Medication and No Patient answered all questions The History & Physical has been completed within 30 days and I have reviewed it.: Yes Section B Chief Complaint: malignant neoplasm of breast Allergies: Allergies Allergy/AdvReac Type Severity Reaction Status Date / Time No Known Allergies Allergy Verified 10/11/21 15:00 Plan I have reviewed the history and physical and performed a pertinent physical examination on my patient. No changes have occurred unless specified.
--- NOTE | 2021-10-17 13:09 | P.OP_ITS ---
Operative Note Operative Note Date of Service: 10/17/21 Narrative: Preop diagnosis: Invasive ductal carcinoma, right breast Postop diagnosis: Invasive ductal carcinoma right breast Procedure: Lumpectomy with needle localization, right breast, with sentinel node biopsy Surgeon: Domo Palacios MD dental chairside assistant: CHI Beckham The patient is a 66 year female recently diagnosed to have invasive ductal carcinoma of the right breast seen on stereotactic biopsy. She wanted to proceed with lumpectomy, right breast with localization and sentinel node biopsy. She was aware of the risks of this procedure. She was aware of the alternatives including mastectomy. She understood that she will require radiation to the breast with lumpectomy She was brought to the operating room. She had earlier undergone needle localization in the radiology suite. I had discussed her needle Eleazar images with the radiologist. She also had undergone nuclear scintigraphy her sentinel nodes and I had reviewed this images as well She was placed under general anesthesia via laryngeal mask airway. The right chest area and axilla were prepped and draped in the usual sterile fashion. A surgical time-out was done The localizing needle was seen enter from medial to lateral on the right breast. I infiltrated the planned line of incision for the entry site of the localizing needle. I made the incision using blade 15. This was made tangential to the needle. This carried down with electrocautery through the full-thickness of the skin and subcutaneous fat. I then used the curved Genao scissors to divide the breast tissue surrounding this localizing needle. I was periodically checking for the orientation of the needle along with its tip to make sure that we were including the entire needle itself along with wide margins of breast tissue surrounding this. I continued to dissect past this tip of the needle using the curved Genao scissors until the entire specimen was completely delivered. I marked the medial side of the specimen with long sutures, the near side with jese rt sutures and the deep aspect with a white stitch for orientation This was sent for immediate reray and immediate gross examination. I did to then apply a packing with laps within the biopsy cavity. I covered this with Tegaderm. We changed gloves and changed the entire instrument setup to do the sentinel node biopsy I proceeded to use the nuclear probe to scan the right axilla. I marked the area with a maximal counts. I infiltrated this with lidocaine 1% and made a transverse incision using blade 15. This carried down with electrocautery through the full-thickness of the skin subcutaneous fat. I then proceeded to gently dissect through the fascia of the axilla and enter the axillary fat pad. I then periodic used the gamma probe direct are blunt dissection identify sentinel nodes I was able to identify the 1st sentinel node with a count of 983. I sharply dissected this with the Metzenbaum scissors. I applied a right angle clamp at its base and guided this above the clamp. I tied the tissue below the clamp with the Dexon 3-0 tie for hemostasis This was sent as the sentinel #1 with a count of 983 I continued to scan the axilla. There were 2 other lymph nodes with elevated counts that were seen and removed. [place] node #2 had a count of 160. [place] node #3 had a count of 99. This were also removed and sent for pathologic examination There were no other elevated counts on repeated scanning of the axilla. I irrigated. Once hemostasis was ensured, I reapposed the subcutaneous layer with multiple Polysorb 3-0 interrupted sutures. Skin closure was achieved with Polysorb 4-0 subcuticular running stitch. At this point, were able to talk to the bulges to quad confirm that the biopsy clip and the wire needle along with the foot is calcifications were seen within the specimen The pathologist had also called as to state that the she has appeared to be adequate I then proceeded to re-examine the lumpectomy site. There was note of some oozing and had to cauterize some areas of the cavity achieve hemostasis. I copies irrigated and suctioned out the irrigant fluid. I observed for hemos tasis for 1 minute. Once hemostasis was ensured, I then proceeded to reapposed the deep breast tissue with Dexon 3-0 interrupted sutures. Skin closure was achieved with Dexon 4-0 subcuticular running sutures. Both incisions were infiltrated with Marcaine 0.5% for postop analgesia. Steri-Strips and dressings were applied. Thick hemostatic fluffy dressings were applied on the lumpectomy site. The procedure was then completed The patient tolerated procedure well. There were no complications noted. Initial and final counts of sponges and instruments were correct. Estimated blood loss was about 75 cc . The patient was extubated without difficulty and transferred to the recovery room with stable vital signs.
--- NOTE | 2021-10-17 13:21 | W.PM.OPN ---
Operative Note Breast [place] Node Biopsy Substrate(s) used for sentinel node biopsy in the neoadjuvant setting: Radiotracer All significantly radioactive nodes were removed, if radionuclide was used as the substrate for localization: Yes All palpably suspicious nodes were removed, if present: N/A If clips were placed in pathology-involved nodes, those nodes were identified and removed: N/A General Surg. - Synoptic Notes Breast [place] Node Biopsy Substrate(s) used for sentinel node biopsy in the neoadjuvant setting: Radiotracer All significantly radioactive nodes were removed, if radionuclide was used as the substrate for localization: Yes All palpably suspicious nodes were removed, if present: N/A If clips were placed in pathology-involved nodes, those nodes were identified and removed: N/A
== END 2021-10-17 16:07 ==
LOC: HO.SSS 06:45
PROVIDERS: PCP Nurse Practitioner Family; Visit Provider Surgery
PROC: (CPT 19301; principal; 2021-10-17 11:00)
PROC: (CPT 19301; 2021-10-17 11:00)
DX: C50.911 Malignant neoplasm of unspecified site of right female breast (principal); C77.3 Secondary and unspecified malignant neoplasm of axilla and upper limb lymph nodes; Z17.0 Estrogen receptor positive status [ER+]; Z80.3 Family history of malignant neoplasm of breast; M33.11 Other dermatomyositis with respiratory involvement; M79.10 Myalgia, unspecified site; R60.9 Edema, unspecified; I10 Essential (primary) hypertension; F33.8 Other recurrent depressive disorders; Z99.89 Dependence on other enabling machines and devices; Z79.1 Long term (current) use of non-steroidal anti-inflammatories (NSAID); Z79.899 Other long term (current) drug therapy; Z79.52 Long term (current) use of systemic steroids; Z90.710 Acquired absence of both cervix and uterus; Z90.49 Acquired absence of other specified parts of digestive tract; Z98.84 Bariatric surgery status; Z86.16 Personal history of COVID-19; Z87.891 Personal history of nicotine dependence
CPT/HCPCS: 19301; 38525; 19281; 78195; 88307; 88329; 88342; A4648; A9520; J0690; J1100; J2250; J2405; J2795; J3010

== ENCOUNTER → 2021-11-08 10:52 | Outpatient (BNVA) | payer OTHER, SELFPAY | PROVIDERS: PCP Nurse Practitioner Family; Visit Provider Internal Medicine Rheumatology | DX: M33.90 Dermatopolymyositis, unspecified, organ involvement unspecified (principal); C50.911 Malignant neoplasm of unspecified site of right female breast; M85.80 Other specified disorders of bone density and structure, unspecified site; Z79.52 Long term (current) use of systemic steroids; Z79.899 Other long term (current) drug therapy | CPT/HCPCS: 99212 ==

== ENCOUNTER 2021-11-10 08:54 | Day surgery (SDC) | payer OTHER, SELFPAY ==
--- NOTE | ~2021-11-10 | IR_ITS ---
PROCEDURE: IR INSERTION OF TUNNEL CATHETER CLINICAL INFORMATION: Breast cancer. COMPARISON: None TECHNIQUE: The procedure, risks and benefits including bleeding, infection and pneumothorax were discussed with the patient and informed consent was obtained. All elements of maximal sterile barrier technique were followed including use of cap, mask, sterile gown, sterile gloves, a sterile full body drape and hand hygiene. Also followed was skin preparation with 2% chlorhexidine for cutaneous antisepsis, and sterile ultrasound preparation with sterile gel and probe cover when applicable. The left neck and chest were prepped and draped in the usual sterile fashion. The skin and soft tissues of the left lower neck were anesthetized with 1% lidocaine plain. A small incision was made. Using ultrasound guidance and a 5-Dominican micropuncture set, left internal jugular vein access was obtained. Over an 018 wire, a 5-Dominican dilator was positioned in the left innominate vein. The skin and soft tissues of the left upper anterior chest were anesthetized with 1% lidocaine plain. A small incision was made. Using blunt dissection, a subcutaneous pocket was created. A subcutaneous tunnel from the chest to the neck incision was anesthetized with 1% lidocaine plain. Using a tunneler, a 6.6-Dominican single-lumen port catheter was tunneled from the chest to the neck incision. The catheter was attached to the port. The port was positioned in the subcutaneous pocket and secured using two 2-0 nonabsorbable sutures. An 035 guidewire was advanced through the 5-Dominican dilator into the IVC. 5-Dominican dilator was exchanged for a 7-Dominican Peel-Away sheath. Using bent wire technique, catheter length was estimated and the catheter was cut. The catheter was fed through the Peel-Away sheath. Unfortunately, the tip of the catheter went superiorly into the SVC toward right internal jugular vein. The catheter could not be directed inferiorly in the SVC toward the heart. The catheter was removed. The dilator of the Peel-Away sheath was advanced over a guidewire and the sheath was advanced as centrally as possible. Despite this, the catheter could not be directed inferiorly toward the heart inferiorly the SVC. The catheter was cut to a shorter length of 27 cm. The catheter was fed through the Peel-Away sheath. Catheter tip is in the distal left innominate vein/proximal SVC. The neck incision was closed using a 4-0 absorbable subcuticular suture. The chest incision was closed using three 3-0 absorbable interrupted sutures followed by a running 4-0 absorbable subcuticular suture. The port was accessed. The port had good blood return, flushed easily and was instilled with 5 mL heparin 100 unit per mL solution. The patient received Versed and fentanyl and Kefzol intravenously during the procedure. Conscious sedation was provided by registered nurse under my direct supervision. The patient received Versed 3.5 mg and fentanyl 175 mcg intravenously during the procedure. TOTAL SEDATION TIME: 75 min FLUOROSCOPY TIME: 5.6 minutes DAP: 3655 cGy-cm2 Real-time ultrasound guidance was used to document vein patency and for needle entry. A formal ultrasound picture was recorded. FINDINGS: There is a left internal jugular 6.6-Dominican single-lumen Dignity Port-A-Cath with the tip projecting over the proximal SVC. IR/IR cvc insert tunnel w prt/b and b gang worker IMPRESSION: Left internal jugular 6.6-Dominican single-lumen Dignity Port-A-Cath placement.
[2021-11-10 06:58] VITALS: BMI 36.6
[2021-11-10 09:31] VITALS: BP 130/61; PULSE 83; RESP 18; TEMP 36.1; O2SAT 98
[2021-11-10 10:07] LABS: MANUAL DIFF FLAG NO
[2021-11-10 10:11] LABS: Basophils Percent Auto 0.4 % (0-2); Eosinophils Percent Auto 0.6 % (0-4); Hematocrit 34.1 % (37.0-47.0); Hemoglobin 10.7 g/dl (12.0-16.0); Imm Gran Abs Auto 0.18 X10*3/uL (0.00-0.03); Imm Gran Pct Auto 2.7 % (0.0-0.4); Lymphocytes Absolute Auto 0.8 X10*3/uL (1.2-4.9); Lymphocytes Percent Auto 12.1 % (20-40); Mean Corpuscular HGB Conc 31.4 g/dl (31.0-35.0); Mean Corpuscular Hemoglobin 27.5 pg (27.0-33.0); Mean Corpuscular Volume 87.7 fL (80.0-98.0); Monocytes Absolute Auto 0.7 X10*3/uL (0.1-1.2); Monocytes Percent Auto 10.3 % (2-11); Neutrophils Percent Auto 73.9 % (45-73); Platelet Count 196 X10*3/uL (160-400); Red Blood Count 3.89 X10*6/uL (4.20-5.50); Red Cell Distribution Width 15.8 % (11.0-16.0); White Blood Count 6.8 X10*3/uL (4.8-10.8)
[2021-11-10 10:20] LABS: INTERNATIONAL NORM RATIO 0.9 (0.9-1.1); Prothrombin Time 10.4 SEC (10.0-13.1)
[2021-11-10 10:23] LABS: Partial Thromboplastin Time 25.8 SEC (26.0-36.4)
[2021-11-10] MEDS: Lidocaine HCl 2 % MPF 5 ML VIAL 10 ML SUBCUT (11:31)
--- NOTE | 2021-11-10 12:40 | HO.RADPN ---
RADIOLOGY Narrative Narrative: Left IJ 6.6 fr single lumen port placed. Tip in SVC.
[2021-11-10] MEDS: iohexoL 300 MG/ML 50 ML INFUS..BTL PR (12:41)
[2021-11-10 13:00] VITALS: BP 107/55; PULSE 81; RESP 17; TEMP 37.1; O2SAT 100
[2021-11-10 13:15] VITALS: BP 135/54; PULSE 67; RESP 17; O2SAT 99
[2021-11-10 13:30] VITALS: BP 131/50; PULSE 68; RESP 17; O2SAT 99
[2021-11-10 13:44] VITALS: BP 119/52; PULSE 65; RESP 17; O2SAT 99
[2021-11-10 14:00] VITALS: BP 121/59; PULSE 79; RESP 18; TEMP 36.3; O2SAT 97
== END 2021-11-10 14:05 | disposition home or self-care (01) ==
PROVIDERS: Radiology Diagnostic Radiology; PCP Nurse Practitioner Family; Visit Provider Radiology Diagnostic Radiology
DX: Z45.2 Encounter for adjustment and management of vascular access device (principal); C50.911 Malignant neoplasm of unspecified site of right female breast; Z80.3 Family history of malignant neoplasm of breast; M33.10 Other dermatomyositis, organ involvement unspecified; L65.9 Nonscarring hair loss, unspecified; I10 Essential (primary) hypertension; F33.8 Other recurrent depressive disorders; Z79.52 Long term (current) use of systemic steroids; Z79.899 Other long term (current) drug therapy; Z90.49 Acquired absence of other specified parts of digestive tract; Z87.891 Personal history of nicotine dependence; Z86.16 Personal history of COVID-19; C77.3 Secondary and unspecified malignant neoplasm of axilla and upper limb lymph nodes; Z17.0 Estrogen receptor positive status [ER+]
CPT/HCPCS: 36415; 36561; 85025; 85610; 85730; 99152; 99153; C1769; C1788; C1892; J0690; J1642; J2250; J3010; Q9967

== ENCOUNTER → 2021-11-15 15:57 | Outpatient (REF) | payer OTHER, SELFPAY ==
--- NOTE | 2021-11-15 16:00 | CA_ITS ---
Transthoracic Echocardiogram Patient (Last, First, Middle): Kate Almaguer, Gender: Female Date of : 1955 Age: 66 Procedure Date: 11/15/2021 Procedure Type: Transthoracic Echocardiogram Location: OP Height: 160.02 cm Weight: 98.88 kg BSA: 2.01 m2 Heart Rate: bpm BP: 116 / 66 mmHg Associate Pathologist: Referring MD: Patrick Hernández MD Shed Boss: Josias Hameed MD Symptoms: C50.911 MALIGNANT NEOPLASM OF RIGHT BREAST BASELINE PRE CHEMO ASSESSMENT Study Quality: Fair ECG Rhythm: Sinus with extra beats Conclusions: - 1. Normal LV systolic function with mild LVH with impaired relaxation filling pattern 2. Mild aortic stenosis 3. Normal RV systolic pressure 4. No gross pericardial effusion Findings Left Ventricle Normal left ventricular size and systolic function. There is mildly increased left ventricular wall thickness. The visually estimated ejection fraction is between 60-65%. Spectral Doppler is indicative of an impaired relaxation filling pattern. E/E prime ratio is between 8 and 15 consistent with indeterminate filling pressures. Peak GLS is -23.4%, within normal limits. Right Ventricle Normal right ventricular cavity size and systolic function. Atria The left atrium is likely dilated. There is lipomatous hypertrophy of the interatrial septum. There is no evidence of interatrial shunt. The right atrium is normal in size. Aortic Valve The aortic valve was not well visualized. There is mild aortic valve stenosis. The peak aortic gradient is 26 mmHg.The mean gradient is 14 mmHg. The aortic valve area is 1.74 cm2. There is no aortic valve regurgitation. Mitral Valve There is mild anterior and posterior mitral leaflet thickening. There is trace mitral valve regurgitation. There is no mitral valve stenosis. Pulmonic Valve The pulmonic valve was not well visualized. Tricuspid Valve Likely normal tricuspid valve structure and function. There is trace tricuspid valve regurgitation. The right ventricular systolic pressure is normal. The right ventricular systolic pressure is 21 mmHg. Normal right atrial pressure. There is no evidence of pulmonary hypertension. Great Vessels All visible segments of the aorta are normal in size. The pulmonary artery was not well visualized. Venous The inferior vena cava is normal in size and collapses greater than 50% with inspiration. Pericardium/Pleural There is no evidence of pericardial effusion. Prior Study Comparison No prior study available for comparison. Measurements 2D Linear Measurements IVSd: 1.25 0.6-0.9/0.6-1.0 cm LVIDd: 4.23 3.9-5.3/4.2-5.9 cm LVIDd Index: 2.10 2.4-3.2/2.2-3.1 cm/m2 LVIDs: 2.70 2.0-3.6 cm LVPWd: 1.26 0.7-1.1 cm Ao Root: 2.60 2.1-3.5 cm LA Diam: 3.70 2.7-3.8/3.0-4.0 cm LAIDs Index: 1.84 1.5-2.3 cm/m2 LV Mass: 239.71 67-162/88-224 g LV Mass Index: 119.26 43-95/49-115 g/m2 LVOT Diam: 2.00 3.0+(-)1.3 cm Mitral Valve MV Pk E: 0.91 MV PK A: 0.97 MV Decel Time: 209.00 E/A: 0.90 E'Lateral: 7.18 E'Medial: 8.16 E/E' Med: 11.10 E/E' Lat: 12.60 PHT: 61.00 MVA PHT: 3.61 Decel Gulf: 4.35 Aortic Valve AoV Pk Taras: 2.57 AoV Mn Taras: 1.74 AoV VTI: 0.53 AoV Pk Grad: 26.00 Aov Mn Grad: 14.00 SAMANTHA Cont.VTI: 1.74 LVOT LVOT Pk Taras: 1.55 LVOT Mn Taras: 0.86 LVOT VTI: 0.30 LVOT Pk Grad: 10.00 LVOT Mn Grad: 4.00 LVOT Diam: 2.00 LVOT Area: 3.14 Diastolic Function MV Pk E: 0.91 MV Pk A: 0.97 E/A: 0.90 E'Medial: 8.16 E/E' Med: 11.10 E' Laterial: 7.18 E/E' Lat: 12.60 Tricuspid Valve TR Pk Taras: 2.14 TR Pk Grad: 18.00 RA Press: 3.00 RVSP: 21.00 Great Vessels Aorta Ao Root-2D: 2.60 2.0-3.7 cm Ao Asc: 3.00 2.1-3.4 cm Pulmonary Valve PV Pk Taras: 1.33 Peak PV Grad: 7.00 Updated in Other Vendor System with Status of Final Josias Hameed MD electronically signed on 11/16/2021 8:43:31 AM with status of Final
== END ==
LOC: HO.CARD 15:57
PROVIDERS: PCP Nurse Practitioner Family; Visit Provider Internal Medicine Medical Oncology
DX: C50.911 Malignant neoplasm of unspecified site of right female breast (principal)
CPT/HCPCS: 93306; 93356

== ENCOUNTER 2021-11-23 14:54 | Inpatient (IN) | payer OTHER, SELFPAY ==
--- NOTE | ~2021-11-23 | CT_ITS ---
EXAMINATION: CT ANGIOGRAM OF THE CHEST WITH AND WITHOUT CONTRAST (CT PULMONARY ANGIOGRAM FOR PE) CLINICAL INFORMATION: Reason for exam: tachycardia, hypotension, active breast CA. COMPARISON: Chest radiograph earlier today. TECHNIQUE: Prior to contrast administration, noncontrast localization images were obtained. Subsequently, multidetector volumetric imaging was performed from the thoracic inlet to below the diaphragms following the administration of 75 mL Omnipaque 350 intravenous contrast. No contrast reaction reported. Sagittal, coronal, and MIP oblique sagittal reformatted images were obtained on the CT workstation, uploaded to PACS, and reviewed. This CT examination was performed using dose optimization techniques as appropriate, variously including the following: *Automated exposure control *Adjustment of mA and/or kV according to patient size (this includes techniques or standardized protocols for targeted exams where dose is matched to indication/reason for exam; i.e. extremities or head) *Use of iterative reconstruction technique Total exam dose-length product 453 mGy-cm FINDINGS: QUALITY OF STUDY/CONTRAST BOLUS: Satisfactory. There is marked motion artifact. PULMONARY ARTERIES: No central or segmental pulmonary emboli. THORACIC AORTA: No aneurysm or dissection. LUNG: Mild emphysematous changes are present in the lungs. No worrisome lung masses or suspicious nodules are seen. PLEURA: No pleural effusion or pneumothorax. MEDIASTINUM: The right lobe of the thyroid is enlarged and heterogeneous. Normal heart size. No pericardial effusion. No hilar or mediastinal lymphadenopathy. No evidence of septal bowing or right heart strain. CHEST WALL/AXILLA: There is skin thickening overlying the right breast with an asymmetric mass present measuring 6.0 x 2.9 x 5.2 cm. No axillary lymphadenopathy. OSSEOUS STRUCTURES: No acute or suspicious osseous abnormality. Degenerative changes are present in the spine. UPPER ABDOMEN: Spleen is enlarged measuring 13.5 cm in size. No reflux of contrast into the hepatic veins to suggest elevated right heart pressures. CT/CT angio chest PE protocol IMPRESSION: 1. No pulmonary emboli are detected. 2. Incidental note made of mild emphysematous changes. Enlarged heterogeneous right lobe of the thyroid, right-sided skin thickening and breast mass and mild splenomegaly. VTE: Negative.
--- NOTE | ~2021-11-23 | CT_ITS ---
EXAMINATION: CT ABDOMEN AND PELVIS WITHOUT CONTRAST CLINICAL INFORMATION: Abdominal pain and diarrhea. COMPARISON: None TECHNIQUE: Multidetector volumetric imaging was performed from the superior aspect of the liver through the pubic symphysis. Sagittal and coronal reformatted images were obtained on the technologist's workstation. This CT examination was performed using dose optimization techniques as appropriate, variously including the following: *Automated exposure control *Adjustment of mA and/or kV according to patient size (this includes techniques or standardized protocols for targeted exams where dose is matched to indication/reason for exam; i.e. extremities or head) *Use of iterative reconstruction technique DLP: 725 mGy-cm FINDINGS: LUNG BASES: The visualized lung bases are unremarkable. The heart size is normal. There is no pericardial effusion. There is a right anterior breast skin thickening. LIVER, GALLBLADDER, AND BILIARY TREE: The liver is normal in size, shape, and attenuation. No focal hepatic lesion or biliary ductal dilatation is present. The gallbladder is not visualized and likely removed. PANCREAS: Unremarkable. 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 The left adrenal gland is normal. KIDNEYS AND URETERS: The kidneys are normal in size, shape, and attenuation. No hydronephrosis, hydroureter, or calculi seen. No perinephric stranding. BLADDER: Unremarkable. GASTROINTESTINAL TRACT: There is mural thickening involving sigmoid and descending colon and submucosal fat deposition in the ascending and the transverse colon. No pericolic fat stranding seen. There is minimal distention of these distal sigmoid colon and the rectum with air-fluid level. There is fatty lipomatous ileocecal valve. Appendix is not seen. The small bowel loops are normal caliber. Surgical sutures are seen along the lateral aspect of the stomach likely from partial resection or gastric sleeve surgery. ABDOMINAL WALL: A small umbilical hernia containing fat. LYMPH NODES: Normal. VASCULAR: Unremarkable. PELVIC VISCERA: There is no free fluid or free air seen. No abnormal pelvic lymph nodes the uterus is surgically absent. OSSEOUS STRUCTURES: There are degenerative disc changes and vacuum disc phenomena at every disc level. No aggressive lytic or sclerotic process seen CT/CT abdomen pelvis wo IV con IMPRESSION: Diffuse mural thickening especially the sigmoid and the descending colon most suggestive of inflammatory or infectious otitis. No pericolic fat stranding or diverticula seen. There is subpleural fat deposition in the ascending and transverse colon, nonspecific finding but can be seen with inflammatory bowel disease no obstruction or free air seen. Small lacunar hernia containing fat. Likely previous cholecystectomy and hysterectomy. Fleischner guidelines were followed.
--- NOTE | ~2021-11-23 | XR_ITS ---
EXAMINATION: XR CHEST CLINICAL INFORMATION: Chest pain COMPARISON: X-ray 10/16/2021 TECHNIQUE: Frontal view of the chest was obtained. FINDINGS: Stable cardiac mediastinal silhouette. Left-sided Port-A-Cath, the catheter extending towards the SVC, but distal aspect of the catheter is obscured by overlapping bone and not well seen. Stable mild central vascular prominence. No pulmonary edema. No focal consolidation. No effusion. No pneumothorax. Postsurgical changes in the lower cervical spine. XR/XR chest 1V IMPRESSION: The distal aspect of the Port-A-Cath is not clearly visualized, and position confirmed. Repeat radiographs as clinically warranted. No acute process otherwise seen.
--- NOTE | 2021-11-23 14:20 | ECG_ITS ---
Test Reason : TACHYCARDIA Blood Pressure : / mmHG Vent. Rate : 097 BPM Atrial Rate : 097 BPM P-R Int : 130 ms QRS Dur : 072 ms QT Int : 342 ms P-R-T Axes : 044 052 033 degrees QTc Int : 434 ms Normal sinus rhythm Low voltage QRS Cannot rule out Anterior infarct , age undetermined Abnormal ECG When compared with ECG of 16-OCT-2021 13:44, Premature atrial complexes are no longer Present Referred By: Katy Bess Electronically Signed By:LITZY GILLIAM
[2021-11-23 15:05] VITALS: BP 129/61; PULSE 101; RESP 20; TEMP 37; O2SAT 97; BMI 36.7
--- NOTE | 2021-11-23 15:34 | ED.GENADULT ---
HPI - General Adult General Chief complaint: General Medical Stated complaint: elevated heart rate Time Seen by Provider: 11/23/21 15:15 Source: patient Mode of arrival: wheelchair Limitations: no limitations History of Present Illness HPI narrative: Patient comes to the emergency room via wheelchair from Dr. Hernández's office. Patient was transferred to the emergency room for an episode of tachycardia HR in the 170s and hypotension in the low 80s. Of note, the Patient started chemotherapy one week ago for right breast cancer with lymph node involvement (carboplatin/docetaxel/Herceptin/pertuzumab based chemotherapy, On prednisone taper, 50 mg now). For last 3 days, patient developed profuse diarrhea and mouth sores/candidiasis. Patient denies fever or chills. Patient went to an office visit today for lab work. When it was noted that the patient's heart rate was in the 170s and had hypotension in the low 80s, patient was given 2 L of normal saline. By the time the patient arrived in the emergency room, patient's heart rate is in the 100s, blood pressure 129/61. Patient denies any chest pain or shortness of breath. Patient mentioned that she has had multiple episodes in the past, but she has tachycardia and feeling dizzy, lasting for approximately 5 minutes. Patient attributed her symptoms to panic attacks although she has never been diagnosed with anxiety/depression. Related Data Home Medications Medication Instructions Recorded Confirmed ketoconazole 2 % shampoo 1 appl topical 2XW 09/28/21 11/23/21 cyanocobalamin (vitamin B-12) 1,000 mcg PO BEDTIME 10/12/21 11/23/21 1,000 mcg capsule duloxetine 60 mg capsule,delayed 60 mg PO BEDTIME 10/12/21 11/23/21 release lutein 40 mg capsule 40 mg PO DAILY 10/30/21 11/23/21 calcium carbonate 600 mg-vitamin 1 tab PO DAILY 10/31/21 11/23/21 D3 10 mcg (400 unit) tablet prednisone 10 mg tablet 60 mg PO QAM 11/08/21 11/23/21 alendronate 70 mg tablet 70 mg PO FR 11/23/21 11/23/21 betamethasone dipropionate 0.05 % 1 appl topical BID PRN psorias 11/23/21 11/23/21 lotion flare up cholecalciferol (vitamin D3) 25 25 mcg PO DAILY 11/23/21 11/23/21 mcg (1,000 unit) tablet Previous Rx's Medication Instructions Recorded calcitriol 0.25 mcg capsule 0.25 mcg PO DAILY #30 caps 06/09/21 diphenhydramine HCl 25 mg capsule 25 mg PO TID PRN itching #14 caps 06/24/21 (Benadryl) ibuprofen 800 mg tablet 800 mg PO Q8H PRN pain #20 tabs 08/11/21 clonidine HCl 0.2 mg tablet 0.2 mg PO BEDTIME #90 tabs 09/07/21 lisinopril 20 1 tab PO DAILY #90 tabs 09/07/21 mg-hydrochlorothiazide 12.5 mg tablet ondansetron 8 mg disintegrating 8 mg PO Q8H #50 tabs 11/14/21 tablet Magic Mouthwash 10 ml PO QID #240 mL 11/23/21 Diphen/Lido/Antacid 1:1:1 240 mL suspension Allergies Allergy/AdvReac Type Severity Reaction Status Date / Time No Known Allergies Allergy Verified 11/14/21 11:02 Review of Systems Review of Systems: Constitutional : No Weight loss, No Fever, No Chills, No Night Sweats, No Fatigue, No Malaise ENT/Mouth : No Hearing loss, No Ear Pain, No Nasal Congestion, No Sinus Pain, No Hoarseness, No sore throat, No Rhinorrhea, No Swallowing Difficulty Eyes: No Eye Pain, No Swelling, No Redness, No Foreign Body, No Discharge, No Vision Changes Cardiovascular : No Chest Pain, No SOB, No Dyspnea on Exertion, No Orthopnea, No Edema, intermittent episodes of palpitations with dizziness Respiratory : No Cough, No Sputum, No Wheezing, No Smoke Exposure, No Dyspnea Gastrointestinal : No Nausea, No Vomiting, No Diarrhea, No Constipation, No abdominal Pain, No Hematochezia, No Melena Genitourinary : no irregular bleeding, No Dysuria, No Urinary Frequency, No Hematuria, No Urinary Incontinence, No Urgency, No Flank Pain, No Urinary Flow Changes, No Hesitancy Musculoskeletal : No joint pain, No Myalgias, No Joint Swelling Skin : No Skin Lesions, No rash Neuro : No Weakness, No Numbness, No Paresthesias, No Loss of Consciousness, no headache Psych : No Anxiety/Panic, No Depression, No SI/HI/AH/VH, No Social Issues, Heme/Lymph: No Bruising, No Bleeding,No Lymphadenopathy Endocrine : No Polyuria, No Polydipsia, No Temperature Intolerance [facility] Past Medical History Medical History Anxiety Breast calcification, right Breast cancer, right Dermatomyositis Encounter to establish care History of COVID-19 Hypertension Insomnia Invasive ductal carcinoma of right breast Lumbar degenerative disc disease Major depression, chronic Pain in both feet Pedal edema Port-A-Cath in place Surgical History History of arthroscopic knee surgery History of section History of cholecystectomy History of fusion of cervical spine History of gastric bypass History of hysterectomy History of tonsillectomy Status post right breast lumpectomy Family History Family History Mother No problems noted. Father Breast cancer Bone cancer Brother Substance use disorder Paternal Aunt Breast cancer Social History Social History (Updated 11/14/21 @ 11:01 by Sally Myers [facility]) Household Members: Children Housing: House Are you a primary spiritual care coordinator to a significant other at home: No Do you presently have visiting nurse or other home services: No Patient Tobacco Use Status: Former Tobacco user Quit Date: 12 yrs ago Tobacco use type: Cigarette e-Cigarette/Vaping Use: Never Used Use of substances other than those prescribed or required for medical reasons: No Advance Directives: No Advance Directives Information Provided: Yes service: No Current occupational status: unemployed and retired Cognitive needs: Yes (cane) Hearing needs: No Vision needs: Yes (glasses) Physical Exam ED Vital Signs: Vital Signs - 24 hr 11/23/21 15:05 11/23/21 19:14 Temperature 98.6 F Pulse Rate 101 H 94 Respiratory Rate 20 16 Blood Pressure 129/61 128/67 Pulse Oximetry 97 98 Oxygen Delivery Method Room Air Room Air BMI result Body Mass Index 36.7 Const Other: Appearance: Alert. Oriented X3. No acute distress. Eyes: Pupils equal, round and reactive to light. ENT: Pharynx normal. Neck: Normal inspection. Neck supple. No lymph nodes noted. No crepitus CVS: Normal heart rate and rhythm. Pulses normal. Normal S1 and S2 Respiratory: No respiratory distress. Breath sounds normal. No Wheezing. No rales Abdomen: Soft and nontender. No rigidity. No distention. Skin: Skin warm and dry. Normal skin color. Normal skin turgor. Extremities: No lower extremity edema. No Lacerations. No Rash Neuro: Oriented X 3. No motor deficit. No sensory deficit. Moving all extremities. No slurred speech. CN 2 through 12 grossly intact Psych: calm, cooperative, normal affect Course Course Course Narrative: All Of patient's labs are pending. I discussed with the patient that depending on the D-dimer, if positive she will have to get a CT scan of the chest. Patient agrees with plan. Also, given the patient's symptoms of chest pressure, dizziness and palpitations intermittently, accompanied by hypotension and significant tachycardia, it would be in her best interest to be admitted CT scan for pulmonary embolism is negative. At 19:43, patient had an episode of SVT. Patient had palpitations, which self-resolved. Patient was started on metoprolol 25mg I discussed the patient with Dr. De La Torre, patient being admitted for dehydration, diarrhea, SVT . Medical Decision Making Lab Data Result diagrams: 11/23/21 15:45 11/23/21 15:45 Labs: Lab Results 11/23/21 11/23/21 11/23/21 Range/Units 15:45 15:45 15:45 WBC 17.8 H (4.8-10.8) X10*3/uL RBC 3.60 L (4.20-5.50) X10*6/uL Hgb 9.7 L (12.0-16.0) g/dl Hct 31.3 L (37.0-47.0) % MCV 86.9 (80.0-98.0) fL MCH 26.9 L (27.0-33.0) pg MCHC 31.0 (31.0-35.0) g/dl RDW 16.2 H (11.0-16.0) % Plt Count 147 L (160-400) X10*3/uL MPV 10.6 (9.4-12.3) fL Immature Gran % (Auto) Cancelled Neut % (Auto) Cancelled Lymph % (Auto) Cancelled [place] % (Auto) Cancelled Eos % (Auto) Cancelled Baso % (Auto) Cancelled Lymph # (Auto) Cancelled [place] # (Auto) Cancelled Eos # (Auto) Cancelled Baso # (Auto) Cancelled Abs Immat Gran (auto) Cancelled Absolute Neuts (auto) Cancelled Absolute Nucleated RBC 0.040 H (0.0-0.012) X10*3/uL Nucleated RBC % (auto) 0.2 (0.0-0.2) /100WBC Neutrophils % (Manual) 57 (45-73) % Band Neutrophils % 22 H (3-5) % Lymphocytes % (Manual) 5 L (20-40) % Monocytes % (Manual) 3 (2-11) % Metamyelocytes % 7 % Myelocytes % 6 % Abs Neuts (Manual) 14.1 H (2.0-8.3) X10*3/uL Lymphocytes # (Manual) 0.9 L (1.2-4.9) X10*3/uL Monocytes # (Manual) 0.5 (0.1-1.2) X10*3/uL Metamyelocytes # 1.2 X10*3/uL Myelocytes # 1.1 X10*/uL Nucleated RBCs 1 H (0-0) /100WBC Dohle Bodies PRESENT Platelet Estimate SLIGHTLY DECREASED (NORMAL) Plt Morphology Comment NORM RBC Morphology NOTED Polychromasia 1+ (0-2) /OIF Microcytosis 1+ (5-14) /OIF Tear Drop Cells 1+ (0-2) /OIF Ovalocytes 1+ (5-14) /OIF PT 10.5 (10.0-13.1) SEC INR 0.9 (0.9-1.1) D-Dimer High Sensitivty 355 NG/ML Sodium 138 (135-145) mmol/L Potassium 3.8 (3.3-5.1) mmol/L Chloride 104 (96-108) mmol/L Carbon Dioxide 21 L (22-29) mmol/L Anion Gap 17 (12-20) BUN 12 (9-16) mg/dL Creatinine 0.73 (0.5-1.4) mg/dL Estim Creat Clear Calc 84.8 Estimated GFR > 60 Random Glucose 191 H (60-115) mg/dL Calcium 7.8 L (8.4-10.2) mg/dL Magnesium 1.7 (1.6-2.6) mg/dL Total Bilirubin 0.4 (0.0-1.0) mg/dL Direct Bilirubin 0.2 (0.0-0.5) mg/dL AST 33 H D (5-31) U/L ALT 29 (0-31) U/L Alkaline Phosphatase 78 (39-117) U/L Troponin I High Sens (<3.5-17.0) ng/L B-Natriuretic Peptide (<100) pg/mL Total Protein 5.2 L (6.5-8.0) g/dL Albumin 3.4 L (3.5-5.0) g/dL COVID-19 (EJN) (Negative) COVID-19 Clin Com 11/23/21 11/23/21 Range/Units 15:45 15:50 WBC (4.8-10.8) X10*3/uL RBC (4.20-5.50) X10*6/uL Hgb (12.0-16.0) g/dl Hct (37.0-47.0) % MCV (80.0-98.0) fL MCH (27.0-33.0) pg MCHC (31.0-35.0) g/dl RDW (11.0-16.0) % Plt Count (160-400) X10*3/uL MPV (9.4-12.3) fL Immature Gran % (Auto) Neut % (Auto) Lymph % (Auto) [place] % (Auto) Eos % (Auto) Baso % (Auto) Lymph # (Auto) [place] # (Auto) Eos # (Auto) Baso # (Auto) Abs Immat Gran (auto) Absolute Neuts (auto) Absolute Nucleated RBC (0.0-0.012) X10*3/uL Nucleated RBC % (auto) (0.0-0.2) /100WBC Neutrophils % (Manual) (45-73) % Band Neutrophils % (3-5) % Lymphocytes % (Manual) (20-40) % Monocytes % (Manual) (2-11) % Metamyelocytes % % Myelocytes % % Abs Neuts (Manual) (2.0-8.3) X10*3/uL Lymphocytes # (Manual) (1.2-4.9) X10*3/uL Monocytes # (Manual) (0.1-1.2) X10*3/uL Metamyelocytes # X10*3/uL Myelocytes # X10*/uL Nucleated RBCs (0-0) /100WBC Dohle Bodies Platelet Estimate (NORMAL) Plt Morphology Comment RBC Morphology Polychromasia /OIF Microcytosis /OIF Tear Drop Cells /OIF Ovalocytes /OIF PT (10.0-13.1) SEC INR (0.9-1.1) D-Dimer High Sensitivty NG/ML Sodium (135-145) mmol/L Potassium (3.3-5.1) mmol/L Chloride (96-108) mmol/L Carbon Dioxide (22-29) mmol/L Anion Gap (12-20) BUN (9-16) mg/dL Creatinine (0.5-1.4) mg/dL Estim Creat Clear Calc Estimated GFR Random Glucose (60-115) mg/dL Calcium (8.4-10.2) mg/dL Magnesium (1.6-2.6) mg/dL Total Bilirubin (0.0-1.0) mg/dL Direct Bilirubin (0.0-0.5) mg/dL AST (5-31) U/L ALT (0-31) U/L Alkaline Phosphatase (39-117) U/L Troponin I High Sens 8.6 (<3.5-17.0) ng/L B-Natriuretic Peptide 14 (<100) pg/mL Total Protein (6.5-8.0) g/dL Albumin (3.5-5.0) g/dL COVID-19 (JEN) Negative (Negative) COVID-19 Clin Com See Note Discharge Plan Discharge Clinical Impression: Diarrhea, Nonsustained supraventricular tachycardia Patient Disposition: Admitted As Inpatient Prescriptions: No Action calcitriol 0.25 mcg capsule 0.25 mcg PO DAILY Qty: 30 2RF ibuprofen 800 mg tablet 800 mg PO Q8H PRN (Reason: pain) Qty: 20 0RF lisinopril-hydrochlorothiazide 20-12.5 mg tablet 1 tab PO DAILY Qty: 90 0RF clonidine HCl 0.2 mg tablet 0.2 mg PO BEDTIME Qty: 90 0RF duloxetine 60 mg capsule,delayed release(DR/EC) 60 mg PO BEDTIME cyanocobalamin (vitamin B-12) 1,000 mcg capsule 1,000 mcg PO BEDTIME prednisone 10 mg tablet 60 mg PO QAM diphenhydramine HCl [Benadryl] 25 mg capsule 25 mg PO TID PRN (Reason: itching) Qty: 14 0RF lutein 40 mg Capsule 40 mg PO DAILY Rx Instructions: administer with meals ondansetron 8 mg Tablet,Disintegrating 8 mg PO Q8H Qty: 50 6RF Magic Mouthwash Diphen/Lido/Antacid 1:1:1 240 mL Suspension 10 ml PO QID Qty: 240 3RF Rx Instructions: Lidocaine Viscous 2 % 80mL; diphenhydramine 12.5 mg/5 mL 80mL; aluminum-mag hydrox-simeth [id number]/5mL 80mL betamethasone dipropionate 0.05 % lotion 1 appl topical BID PRN (Reason: psorias flare up) Rx Instructions: 2 WEEKS ON AND ONE WEEK OFF alendronate 70 mg tablet 70 mg PO FR cholecalciferol (vitamin D3) 25 mcg (1,000 unit) Tablet 25 mcg PO DAILY ketoconazole 2 % shampoo 1 appl topical 2XW calcium carbonate-vitamin D3 600 mg-10 mcg (400 unit) tablet 1 tab PO DAILY
[2021-11-23] MEDS: 0.9 % Sodium Chloride 2,000 ML 999 ML IVCONT (15:49)
[2021-11-23 16:05] LABS: INTERNATIONAL NORM RATIO 0.9 (0.9-1.1); Prothrombin Time 10.5 SEC (10.0-13.1)
[2021-11-23 16:07] LABS: D Dimer High Sensitivity 355 NG/ML; Hematocrit 31.3 % (37.0-47.0); Hemoglobin 9.7 g/dl (12.0-16.0); Mean Corpuscular Hemoglobin 26.9 pg (27.0-33.0); Mean Corpuscular Volume 86.9 fL (80.0-98.0); Mean Platelet Volume 10.6 fL (9.4-12.3); NRBC Pct Auto 0.2 /100WBC (0.0-0.2); Platelet Count 147 X10*3/uL (160-400); Red Cell Distribution Width 16.2 % (11.0-16.0)
[2021-11-23 16:09] LABS: Alanine Aminotransferase 29 U/L (0-31); Albumin Level 3.4 g/dL (3.5-5.0); Alkaline Phosphatase 78 U/L (39-117); Anion Gap 17 (12-20); Aspartate Amino Transferase 33 U/L (5-31); Bilirubin Direct 0.2 mg/dL (0.0-0.5); Bilirubin Total 0.4 mg/dL (0.0-1.0); Blood Urea Nitrogen 12 mg/dL (9-16); Calcium 7.8 mg/dL (8.4-10.2); Carbon Dioxide 21 mmol/L (22-29); Chloride 104 mmol/L (96-108); Creatinine Clr Calc Pharmacy 84.8; Estimated Glomerular Filt Rate > 60; Glucose Random 191 mg/dL (60-115); Magnesium 1.7 mg/dL (1.6-2.6); Potassium 3.8 mmol/L (3.3-5.1); Sodium 138 mmol/L (135-145); Total Protein 5.2 g/dL (6.5-8.0); WBC ABN SCTR FOR CBC 1; White Blood Count 17.8 X10*3/uL (4.8-10.8)
[2021-11-23 16:15] LABS: B Type Natriuretic Peptide 14 pg/mL (<100); Troponin-I High Sensitivity 8.6 ng/L (<3.5-17.0)
[2021-11-23 16:15] LABS: COVID-19 Test Negative (Negative)
[2021-11-23 16:45] LABS: Band Neutrophils Percent 22 % (3-5); Lymphocytes Absolute Manual 0.9 X10*3/uL (1.2-4.9); Lymphocytes Percent Manual 5 % (20-40); Metamyelocytes Absolute 1.2 X10*3/uL; Metamyelocytes Percent 7 %; Monocytes Absolute Manual 0.5 X10*3/uL (0.1-1.2); Monocytes Percent Manual 3 % (2-11); Myelocytes Absolute 1.1 X10*/uL; Myelocytes Percent 6 %; Neutrophils Absolute Manual 14.1 X10*3/uL (2.0-8.3); Neutrophils Percent Manual 57 % (45-73); Nucleated Red Blood Cells 1 /100WBC (0-0)
[2021-11-23 16:49] LABS: RBC Morphology NOTED
[2021-11-23 16:51] LABS: Dohle Bodies PRESENT; Microcytosis 1+ (5-14) /OIF; Polychromasia 1+ (0-2) /OIF
[2021-11-23 16:52] LABS: Ovalocytes 1+ (5-14) /OIF; Tear Drop Cells 1+ (0-2) /OIF
[2021-11-23 16:53] LABS: Platelet Estimate SLIGHTLY DECREASED (NORMAL)
[2021-11-23 16:54] LABS: Platelet Morphology Comment NORM
--- NOTE | 2021-11-23 17:19 | PHA.MEDREC ---
Pharmacy Consult ? Medication Reconciliation Pharmacy has completed the medication reconciliation. Patient confirmed medications. Patient was unsure about Calcitriol, however most recent PCP note says to continue. Patient reported she was told to stop the azathioprine today. Patient reported the magic mouthwash is new and she has not started it yet. Claim history does not show duloextine, calcitriol or lisinopril/HCTZ however PCP note says to romanue. Patient report her prednisone was increase from 30 mg to 60 mg at todays appointment prior to arriving in the ED. Joanne Malone, AbbyD
[2021-11-23] MEDS: iohexoL 350 MG/ML 100 ML INFUS..BTL IV (18:32)
[2021-11-23 19:14] VITALS: BP 128/67; PULSE 94; RESP 16; O2SAT 98
[2021-11-23 20:45] VITALS: BP 120/68; PULSE 96; RESP 16; O2SAT 98
[2021-11-23] MEDS: Metoprolol Tartrate 25 MG TABLET PO (20:46)
--- NOTE | 2021-11-23 22:01 | PM.IMHP ---
History of Present Illness Date of Service: 11/23/21 Attending physician on admission: Alejandro De La Torre Chief Complaint: SVT, dehydration 66 year old female with history of dermatomyositis on prednisone taper, anxiety, insomnia, depression, 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 She states she has been having copious watery diarrhea for several days without fever, hematochezia, or melena. There is lower abdominal pain. Due to the diarrhea was advised by Dr. Hernández to go to the clinic for IV fluids. While at the clinic became hypotensive which improved with a fluids but patient became tachycardic to 170 and was transferred to the ED. While in the ED she blood pressure improved to 129/61 with HR 101. In the ED patient had episode of SVT at 1943 with associated palpitations which resolved spontaneously. Patient states she has had similar episodes of palpitations, head pressure, chest pressure that lasts for several seconds before resolving but has never had this worked up. WBC elevated at 17.8 currently on high dose prednisone taper for dermatomyositis. Renal function stable. Mild anemia H/H 9.7/31.3%. PLT 147. D-Dimer 335, subsequent cta chest negative for pulmonary emboli. Review of Systems Review of Systems: General: No fevers, malaise, unintentional weight loss Cardiovascular: +palpitations, +chest pressure. No leg edema Respiratory: No shortness of breath, wheezing, cough GI: +abdominal pain, +diarrhea. No nausea, vomiting, constipation, melena, hematochezia Neuro: No headaches, weakness, paresthesias Skin: No rashes or lesions [facility] Medical History Anxiety Breast calcification, right Breast cancer, right Dermatomyositis Encounter to establish care History of COVID-19 Hypertension Insomnia Invasive ductal carcinoma of right breast Lumbar degenerative disc disease Major depression, chronic Pain in both feet Pedal edema Port-A-Cath in place Family History Mother No problems noted. Father Breast cancer Bone cancer Brother Substance use disorder Paternal Aunt Breast cancer Surgical History History of arthroscopic knee surgery History of section History of cholecystectomy History of fusion of cervical spine History of gastric bypass History of hysterectomy History of tonsillectomy Status post right breast lumpectomy Social History Household Members: Children Housing: House Are you a primary direct care professional to a significant other at home: No Do you presently have visiting nurse or other home services: No Patient Tobacco Use Status: Former Tobacco user Quit Date: 12 yrs ago Tobacco use type: Cigarette e-Cigarette/Vaping Use: Never Used Use of substances other than those prescribed or required for medical reasons: No Advance Directives: No Advance Directives Information Provided: Yes service: No Current occupational status: unemployed and retired Cognitive needs: Yes (cane) Hearing needs: No Vision needs: Yes (glasses) Meds Allergies Allergy/AdvReac Type Severity Reaction Status Date / Time No Known Allergies Allergy Verified 11/14/21 11:02 Active Medications: Current Medications Acetaminophen (Acetaminophen 325 Mg Tablet) 650 mg PO Q6H PRN PRN Reason: Pain, Mild (Pain Scale 1-3) Enoxaparin Sodium (Enoxaparin Sodium 40 Mg/0.4 Ml Syringe) 40 mg SUBCUT Q24H CHELSIE Sodium Chloride (Ns) 1,000 mls @ 100 mls/hr IVCONT .Q10H CHELSIE Ondansetron HCl (Ondansetron Hcl 4 Mg/2 Ml Vial) 4 mg IVPUSH Q8H PRN PRN Reason: Nausea and Vomiting Pharmacy Consult (Consult Rx Perform Med Rec) 1 each MISCELLANE ONCE PRN PRN Reason: Consult order Sodium Chloride (0.9 % Sodium Chloride Flush 3 Ml Syringe) 3 ml IVFLUSH QSHIFT CHELSIE Home Medications Medication Instructions Recorded Confirmed Last Taken Type ketoconazole 2 % shampoo 1 appl topical 2XW 09/28/21 11/23/21 Unknown History cyanocobalamin (vitamin B-12) 1,000 mcg PO BEDTIME 10/12/21 11/23/21 Unknown History 1,000 mcg capsule duloxetine 60 mg capsule,delayed 60 mg PO BEDTIME 10/12/21 11/23/21 Unknown History release lutein 40 mg capsule 40 mg PO DAILY 10/30/21 11/23/21 Unknown History calcium carbonate 600 mg-vitamin 1 tab PO DAILY 10/31/21 11/23/21 Unknown History D3 10 mcg (400 unit) tablet prednisone 10 mg tablet 60 mg PO QAM 11/08/21 11/23/21 Unknown History alendronate 70 mg tablet 70 mg PO FR 11/23/21 11/23/21 Unknown History betamethasone dipropionate 0.05 % 1 appl topical BID PRN psorias 11/23/21 11/23/21 Unknown History lotion flare up cholecalciferol (vitamin D3) 25 25 mcg PO DAILY 11/23/21 11/23/21 Unknown History mcg (1,000 unit) tablet Physical Exam Vital Signs and Narrative: Vital Signs: Last Vital Signs Temp 98.6 F 11/23/21 15:05 Pulse 96 11/23/21 20:45 Resp 16 11/23/21 20:45 BP 120/68 11/23/21 20:45 Pulse Ox 98 11/23/21 20:45 O2 Del Method 11/23/21 20:45 BMI result Body Mass Index 36.7 Constitutional - Awake and Alert, No apparent distress Eyes - PERRLA, EOMI Cardiovascular - S1S2, RRR, No edema Respiratory - Normal lung expansion, Normal respiratory effort, No respiratory distress, CTA bilaterally Chest- right chest port-a-cath in place Gastrointestinal - Moderate diffuse abdominal pain with voluntary guarding, no rebound. Mild distension. +BS; Extremities - no calf tenderness bilaterally, no swelling Skin - Warm/Dry Neurological - Alert & oriented x3, CN II - XII in tact Psychological - Appropriate affect Results Labs CBC and Chem 7: 11/23/21 15:45 11/23/21 15:45 Labs: Laboratory Results - last 24 hr 11/23/21 11/23/21 11/23/21 15:45 15:45 15:45 MCV 86.9 MCH 26.9 L MCHC 31.0 RDW 16.2 H Plt Count 147 L MPV 10.6 Immature Gran % (Auto) Cancelled Neut % (Auto) Cancelled Lymph % (Auto) Cancelled [place] % (Auto) Cancelled Eos % (Auto) Cancelled Baso % (Auto) Cancelled Lymph # (Auto) Cancelled [place] # (Auto) Cancelled Eos # (Auto) Cancelled Baso # (Auto) Cancelled Abs Immat Gran (auto) Cancelled Absolute Neuts (auto) Cancelled Absolute Nucleated RBC 0.040 H Nucleated RBC % (auto) 0.2 Neutrophils % (Manual) 57 Band Neutrophils % 22 H Lymphocytes % (Manual) 5 L Monocytes % (Manual) 3 Metamyelocytes % 7 Myelocytes % 6 Abs Neuts (Manual) 14.1 H Lymphocytes # (Manual) 0.9 L Monocytes # (Manual) 0.5 Metamyelocytes # 1.2 Myelocytes # 1.1 Nucleated RBCs 1 H Dohle Bodies PRESENT Platelet Estimate SLIGHTLY DECREASED Plt Morphology Comment NORM RBC Morphology NOTED Polychromasia 1+ (0-2) Microcytosis 1+ (5-14) Tear Drop Cells 1+ (0-2) Ovalocytes 1+ (5-14) PT 10.5 INR 0.9 D-Dimer High Sensitivty 355 Anion Gap 17 Estim Creat Clear Calc 84.8 Estimated GFR > 60 Random Glucose 191 H Calcium 7.8 L Magnesium 1.7 Total Bilirubin 0.4 Direct Bilirubin 0.2 AST 33 H D ALT 29 Alkaline Phosphatase 78 B-Natriuretic Peptide Total Protein 5.2 L Albumin 3.4 L COVID-19 (JEN) COVID-19 [facility] [place] Com 11/23/21 11/23/21 15:45 15:50 MCV MCH MCHC RDW Plt Count MPV Immature Gran % (Auto) Neut % (Auto) Lymph % (Auto) [place] % (Auto) Eos % (Auto) Baso % (Auto) Lymph # (Auto) [place] # (Auto) Eos # (Auto) Baso # (Auto) Abs Immat Gran (auto) Absolute Neuts (auto) Absolute Nucleated RBC Nucleated RBC % (auto) Neutrophils % (Manual) Band Neutrophils % Lymphocytes % (Manual) Monocytes % (Manual) Metamyelocytes % Myelocytes % Abs Neuts (Manual) Lymphocytes # (Manual) Monocytes # (Manual) Metamyelocytes # Myelocytes # Nucleated RBCs Dohle Bodies Platelet Estimate Plt Morphology Comment RBC Morphology Polychromasia Microcytosis Tear Drop Cells Ovalocytes PT INR D-Dimer High Sensitivty Anion Gap Estim Creat Clear Calc Estimated GFR Random Glucose Calcium Magnesium Total Bilirubin Direct Bilirubin AST ALT Alkaline Phosphatase B-Natriuretic Peptide 14 Total Protein Albumin COVID-19 (JEN) Negative COVID-19 Clin Com See Note Imaging Radiologist's Impressions: Impressions Chest X-Ray 11/23/21 16:09 IMPRESSION: The distal aspect of the Port-A-Cath is not clearly visualized, and position confirmed. Repeat radiographs as clinically warranted. No acute process otherwise seen. Chest CTA 11/23/21 18:45 IMPRESSION: 1. No pulmonary emboli are detected. 2. Incidental note made of mild emphysematous changes. Enlarged heterogeneous right lobe of the thyroid, right-sided skin thickening and breast mass and mild splenomegaly. VTE: Negative. Assessment and Plan (1) Nonsustained supraventricular tachycardia: Status: Acute (2) Diarrhea: Status: Acute (3) Dehydration: Status: Acute Plan 66 year old female with history of dermatomyositis on prednisone taper, anxiety, insomnia, depression, 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 1-Nonsustained PSVT- stable, possibly secondary to dehydration though patient reports prior episodes -Continue telemetry -Continue metoprolol 25mg BID -Cardiology consult placed 2-Dehydration secondary to diarrhea -Continue IVF -Follow BMP 3-Acute diarrhea- infectious vs chemotherapy side effect -CDiff and stool cultures ordered -NPO for bowel rest. Advance diet as tolerated -Pt with diffuse abdominal pain, mild distention, and copious diarrhea. Ct abd/pelvis ordered -Leukocytosis most likely related to prednisone use. Patient hypotension r/t dehydration and tachycardia r/t PSVT, not severe sepsis. Afebrile. Currently hemodynamically stable. Lactic acid normal. Trend cbc 4-Oral candidiasis secondary to prolonged steroid use -Nystatin swish and swallow 3-[id number] -Continue metoprolol as above -Hold home meds 6-Depression/anxiety -Continue duloxetine. Hold clonidine 7-Dermatomyositis -Continue prednisone per rheumatology 8-DCIS right breath on chemotherapy as above -Continue plan per oncology DVT prophylaxis- lovenox Full code Quality Stroke Does the patient have a stroke diagnosis?: No VTE Prior VTE?: No VTE Risk Level:: Medical - moderate - high VTE Device Contraindication: Treatment Not Indicated VTE Drug Contraindication: N/A - Med Ordered
[2021-11-23 22:04] VITALS: BP 132/64; PULSE 85; RESP 16; O2SAT 98
[2021-11-23 23:16] LABS: CDiff Gene PCR NEGATIVE (Negative)
[2021-11-23 23:28] VITALS: BP 93/54; PULSE 81; RESP 14; TEMP 37.2; O2SAT 98
[2021-11-24] VITALS (8 sets, daily range): BP systolic 103–142; BP diastolic 49–90; PULSE 68–86; RESP 14–20; TEMP 36.3–37.1; O2SAT 97; BMI 37.5
--- NOTE | 2021-11-24 | ECG_ITS ---
Test Reason : Tachycardia Blood Pressure : / mmHG Vent. Rate : 155 BPM Atrial Rate : 000 BPM P-R Int : 000 ms QRS Dur : 068 ms QT Int : 280 ms P-R-T Axes : 000 057 187 degrees QTc Int : 449 ms Supraventricular tachycardia Low voltage QRS Nonspecific T wave abnormality Abnormal ECG When compared with ECG of 24-NOV-2021 14:45, Nonspecific T wave abnormality has replaced inverted T waves in Lateral leads Referred By: Abigail Mistry Electronically Signed By:LITZY GILLIAM
--- NOTE | 2021-11-24 | ECG_ITS ---
Test Reason : Tachycardia Blood Pressure : / mmHG Vent. Rate : 159 BPM Atrial Rate : 000 BPM P-R Int : 000 ms QRS Dur : 070 ms QT Int : 252 ms P-R-T Axes : 000 -04 197 degrees QTc Int : 409 ms Supraventricular tachycardia Low voltage QRS Nonspecific ST and T wave abnormality Abnormal ECG When compared with ECG of 23-NOV-2021 15:09, Vent. rate has increased BY 62 BPM Questionable change in QRS axis ST now depressed in Anterolateral leads Nonspecific T wave abnormality now evident in Anterolateral leads Referred By: Abigail Mistry Electronically Signed By:LITZY GILLIAM
[2021-11-24] MEDS: Nystatin Oral Susp 500,000 UNIT/5 ML ORAL.SUSP 400000 UNIT PO ×5 (00:19→20:37)
[2021-11-24] MEDS: Enoxaparin Sodium 40 MG/0.4 ML SYRINGE SUBCUT ×2 (00:20→20:38)
[2021-11-24] MEDS: 0.9 % Sodium Chloride 1,000 ML 100 ML IVCONT ×3 (00:20→17:11)
[2021-11-24] MEDS: 0.9 % Sodium Chloride Flush 3 ML SYRINGE IVFLUSH ×3 (00:28→20:42)
[2021-11-24] MEDS: cefTRIAXone sodium 1 GM in 0.9 % Sodium Chloride 50 ML IV ×2 (01:41→20:28)
[2021-11-24] MEDS: metroNIDAZOLE/NS 500 MG/100 ML PIGGYBACK 100 MG IV ×3 (01:42→17:10)
[2021-11-24 02:30] LABS: Appearance Urine Clear; Color Urine Yellow; Glucose Urine UA Negative (Negative); Leukocyte Esterase Urine Negative (Negative); Nitrite Urine Negative (Negative); PH 5.5 (5.0-9.0); Specific Gravity - Urine >= 1.030 (1.005-1.025); Urine Blood Negative (Negative); Urine Ketones Negative (Negative); Urine Protein Trace mg/dL (Neg-Trace)
[2021-11-24 07:06] LABS: Hematocrit 29.7 % (37.0-47.0); Hemoglobin 9.4 g/dl (12.0-16.0); Mean Corpuscular HGB Conc 31.6 g/dl (31.0-35.0); Mean Corpuscular Hemoglobin 27.6 pg (27.0-33.0); Mean Corpuscular Volume 87.4 fL (80.0-98.0); Mean Platelet Volume 10.4 fL (9.4-12.3); NRBC Pct Auto 0.3 /100WBC (0.0-0.2); Platelet Count 136 X10*3/uL (160-400); Red Cell Distribution Width 16.3 % (11.0-16.0)
[2021-11-24 07:09] LABS: WBC ABN SCTR FOR CBC 1
[2021-11-24 07:35] LABS: Anion Gap 15 (12-20); Blood Urea Nitrogen 9 mg/dL (9-16); Calcium 7.7 mg/dL (8.4-10.2); Carbon Dioxide 21 mmol/L (22-29); Chloride 110 mmol/L (96-108); Creatinine Clr Calc Pharmacy 95.3; Estimated Glomerular Filt Rate > 60; Glucose Random 88 mg/dL (60-115); Potassium 3.5 mmol/L (3.3-5.1); Sodium 142 mmol/L (135-145)
[2021-11-24 08:01] LABS: Band Neutrophils Percent 17 % (3-5); Lymphocytes Percent Manual 4 % (20-40); Metamyelocytes Percent 7 %; Monocytes Percent Manual 3 % (2-11); Myelocytes Percent 2 %; Neutrophils Percent Manual 64 % (45-73); Promyelocytes Percent 3 %
[2021-11-24 08:05] LABS: Microcytosis 1+ (5-14) /OIF; Platelet Estimate SLIGHTLY DECREASED (NORMAL); RBC Morphology NOTED
[2021-11-24 08:06] LABS: Hypochromasia 1+ (5-14) /OIF; Ovalocytes 1+ (5-14) /OIF; Platelet Morphology Comment NORM; Polychromasia 1+ (0-2) /OIF
[2021-11-24 08:07] LABS: Dohle Bodies PRESENT; Toxic Granulation PRESENT
[2021-11-24 08:18] LABS: Metamyelocytes Absolute 1.8 X10*3/uL; Monocytes Absolute Manual 0.8 X10*3/uL (0.1-1.2); Myelocytes Absolute 0.5 X10*/uL; Neutrophils Absolute Manual 20.3 X10*3/uL (2.0-8.3); Promyelocytes Absolute 0.8 X10*3/uL
[2021-11-24] MEDS: predniSONE 10 MG TABLET 30 MG PO ×2 (09:15→20:30)
[2021-11-24] MEDS: Cholecalciferol (Vitamin D3) 25 MCG TABLET PO (09:15)
[2021-11-24] MEDS: Metoprolol Tartrate 25 MG TABLET PO ×2 (09:15→20:30)
[2021-11-24] MEDS: Calcium + Vitamin D 250 MG TABLET 500 MG PO (09:15)
[2021-11-24] MEDS: calcitrioL 0.25 MCG CAPSULE PO (09:53)
--- NOTE | 2021-11-24 11:20 | MHC.CM.PN ---
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
--- NOTE | 2021-11-24 11:55 | P.CONCA_ITS ---
History of Present Illness History of Present Illness Date of Service: 11/24/21 Requesting physician: Bhavesh Estrada Consult reason: other (SVT) Chief complaint: PSVT, dehydration Narrative: I was consulted to see Kate in cardiology consultation today for few paroxysmal burst of nonsustained SVT. Patient was brought to the ED from oncology unit after getting chemotherapy she was noted to be dehydrated and was noted to have low blood pressure. She subsequently now being diagnosed with possible colitis. Patient last year was diagnosed with dermatomyositis and was getting immunosuppressive therapy and subsequently was diagnosed with breast cancer for which she underwent lumpectomy but was noted to have lymph node positive is currently getting chemotherapy. Patient still was getting chemotherapy and was having diarrhea and was felt to be dehydrated with hypotension. While in emergency room she has noticed to have chest pressure this correlated with short burst of SVT. She says she has had this chest pressure along with head mandel for many years but this would last less than 2 minutes and would subside on its own. She thought that this was probably related to anxiety at that point time. No workup was done. She had symptomatic SVT again yesterday. Since then and hydration she has not had any repeat episodes this morning. She is feeling well and wants to go home. Review of Systems Constitutional: Constitutional: Reports no additional constitutional complaints Eyes: Eyes: Reports no additional eye complaints Cardiovascular: Cardiovascular: Reports chest pain at rest, Denies leg edema, Denies lightheadedness, Denies Loss of Consciousness, Denies palpitations and Denies dyspnea Respiratory: Respiratory: Reports no additional respiratory complaints and Denies dyspnea Gastrointestinal: Gastrointestinal: Reports diarrhea Musculoskeletal: Musculoskeletal: Reports no additional musculoskeletal complaints Integumentary/Breasts: Skin/Breast: Reports system reviewed and no additional complaints, except as docu Neurologic: Reports system reviewed and no additional complaints, except as documented Psychiatric: Psychiatric: Reports no additional psychiatric complaints Endocrine: Endocrine: Reports no additional endocrine complaints and Denies palpitations Hematologic/Lymphatic: Hematologic/Lymphatic: Reports no additional hematologic/lymphatic complaints Allergic/Immunologic: Allergic/Immunologic: Reports no additional allergic/immunologic complaints PMFSH Past Medical History Medical History Anxiety Breast calcification, right Breast cancer, right Dermatomyositis Encounter to establish care History of COVID-19 Hypertension Insomnia Invasive ductal carcinoma of right breast Lumbar degenerative disc disease Major depression, chronic Pain in both feet Pedal edema Port-A-Cath in place Family History Family History Mother No problems noted. Father Breast cancer Bone cancer Brother Substance use disorder Paternal Aunt Breast cancer Surgical History Surgical History History of arthroscopic knee surgery History of section History of cholecystectomy History of fusion of cervical spine History of gastric bypass History of hysterectomy History of tonsillectomy Status post right breast lumpectomy Social History Social History Household Members: Children Housing: House Are you a primary before and after school daycare worker to a significant other at home: No Do you presently have visiting nurse or other home services: No Patient Tobacco Use Status: Former Tobacco user Quit Date: 12 yrs ago Tobacco use type: Cigarette e-Cigarette/Vaping Use: Never Used Use of substances other than those prescribed or required for medical reasons: No Advance Directives: No Advance Directives Information Provided: Yes service: No Current occupational status: unemployed and retired Cognitive needs: Yes (cane) Hearing needs: No Vision needs: Yes (glasses) Meds Allergies Allergy/AdvReac Type Severity Reaction Status Date / Time No Known Allergies Allergy Verified 11/14/21 11:02 Active Medications: Current Medications Acetaminophen (Acetaminophen 325 Mg Tablet) 650 mg PO Q6H PRN PRN Reason: Pain, Mild (Pain Scale 1-3) Calcitriol (Calcitriol 0.25 Mcg Capsule) 0.25 mcg PO DAILY [facility] Last Admin: 11/24/21 09:53 Dose: 0.25 mcg Calcium Carbonate/Cholecalciferol (Calcium + Vitamin D 250 Mg Tablet) 500 mg PO DAILY [facility] Last Admin: 11/24/21 09:15 Dose: 500 mg Cyanocobalamin (Cyanocobalamin (Vitamin B-12) 1,000 Mcg Tablet) 1,000 mcg PO BEDTIME [facility] Diphenhydramine HCl (Diphenhydramine Hcl 25 Mg Tablet) 25 mg PO TID PRN PRN Reason: itching Duloxetine HCl (Duloxetine Hcl 60 Mg Capsule.Dr) 60 mg PO BEDTIME [facility] Enoxaparin Sodium (Enoxaparin Sodium 40 Mg/0.4 Ml Syringe) 40 mg SUBCUT Q24H [facility] Last Admin: 11/24/21 00:20 Dose: 40 mg Sodium Chloride (Ns) 1,000 mls @ 100 mls/hr IVCONT .Q10H [facility] Last Admin: 11/24/21 09:08 Dose: 100 mls/hr Ceftriaxone Sodium 1 gm/ (Sodium Chloride) 50 mls @ 100 mls/hr IV BEDTIME [facility] Last Infusion: 11/24/21 02:11 Dose: Infused Metronidazole (Flagyl) 500 mg in 100 mls @ 100 mls/hr IV Q8H [facility] Last Infusion: 11/24/21 10:11 Dose: Infused Metoprolol Tartrate (Metoprolol Tartrate 25 Mg Tablet) 25 mg PO BID [facility]; Protocol Last Admin: 11/24/21 09:15 Dose: 25 mg Nystatin (Nystatin Oral Susp 500,000 Unit/5 Ml Oral.Susp) 400,000 unit PO QID [facility]; Protocol Last Admin: 11/24/21 09:14 Dose: 400,000 unit Ondansetron HCl (Ondansetron Hcl 4 Mg/2 Ml Vial) 4 mg IVPUSH Q8H PRN PRN Reason: Nausea and Vomiting Pharmacy Consult (Consult Rx Perform Med Rec) 1 each MISCELLANE ONCE PRN PRN Reason: Consult order Prednisone (Prednisone 10 Mg Tablet) 30 mg PO BID [facility] Last Admin: 11/24/21 09:15 Dose: 30 mg Sodium Chloride (0.9 % Sodium Chloride Flush 3 Ml Syringe) 3 ml IVFLUSH QSHIFT [facility] Last Admin: 11/24/21 07:04 Dose: Not Given Vitamin D (Cholecalciferol (Vitamin D3) 25 Mcg Tablet) 25 mcg PO DAILY [facility] Last Admin: 11/24/21 09:15 Dose: 25 mcg Home Medications Medication Instructions Recorded Confirmed Last Taken Type ketoconazole 2 % shampoo 1 appl topical 2XW 09/28/21 11/23/21 Unknown History cyanocobalamin (vitamin B-12) 1,000 mcg PO BEDTIME 10/12/21 11/23/21 Unknown History 1,000 mcg capsule duloxetine 60 mg capsule,delayed 60 mg PO BEDTIME 10/12/21 11/23/21 Unknown History release lutein 40 mg capsule 40 mg PO DAILY 10/30/21 11/23/21 Unknown History calcium carbonate 600 mg-vitamin 1 tab PO DAILY 10/31/21 11/23/21 Unknown History D3 10 mcg (400 unit) tablet prednisone 10 mg tablet 60 mg PO QAM 11/08/21 11/23/21 Unknown History alendronate 70 mg tablet 70 mg PO FR 11/23/21 11/23/21 Unknown History betamethasone dipropionate 0.05 % 1 appl topical BID PRN psorias 11/23/21 11/23/21 Unknown History lotion flare up cholecalciferol (vitamin D3) 25 25 mcg PO DAILY 11/23/21 11/23/21 Unknown History mcg (1,000 unit) tablet Physical Exam Vital Signs: Vital Signs: Last Vital Signs Temp 98.5 F 11/24/21 10:59 Pulse 72 11/24/21 10:59 Resp 14 11/24/21 10:59 BP 119/67 11/24/21 10:59 Pulse Ox 97 11/24/21 10:59 O2 Del Method 11/24/21 10:59 BMI result Body Mass Index 36.7 Const: General: cooperative, comfortable, no acute distress, alert and awake Nutritional Appearance: obese Orientation/consciousness: patient oriented x3 Limitations: no limitations HEENT: Head: Yes normocephalic and Yes atraumatic Neck: Neck: Yes trachea midline, Yes supple and Yes no JVD Resp: Effort & Inspection: normal respiratory effort Auscultation: clear to auscultation bilaterally Cardio: Jugular venous distension: no JVD Palpation: normal PMI Rate: regular rate Rhythm: regular rhythm Heart sounds: S1 normal heart sound present, S2 normal heart sound present, no click, no gallops and no murmurs GI: Inspection: Yes obesity Auscultation: normal bowel sounds Skin: General skin exam: no rashes or lesions noted Neuro: General: patient oriented x3 and no focal motor deficits Extrem: General: Yes no clubbing, cyanosis or edema Objective Labs and Meds Result diagrams: 11/24/21 06:32 11/24/21 06:32 Lab results: Laboratory Results - last 24 hr 11/23/21 11/23/21 11/23/21 15:45 15:45 15:45 WBC 17.8 H RBC 3.60 L Hgb 9.7 L Hct 31.3 L MCV 86.9 MCH 26.9 L MCHC 31.0 RDW 16.2 H Plt Count 147 L MPV 10.6 Immature Gran % (Auto) Cancelled Neut % (Auto) Cancelled Lymph % (Auto) Cancelled Ida % (Auto) Cancelled Eos % (Auto) Cancelled Baso % (Auto) Cancelled Lymph # (Auto) Cancelled Ida # (Auto) Cancelled Eos # (Auto) Cancelled Baso # (Auto) Cancelled Abs Immat Gran (auto) Cancelled Absolute Neuts (auto) Cancelled Absolute Nucleated RBC 0.040 H Nucleated RBC % (auto) 0.2 Neutrophils % (Manual) 57 Band Neutrophils % 22 H Lymphocytes % (Manual) 5 L Monocytes % (Manual) 3 Metamyelocytes % 7 Myelocytes % 6 Promyelocytes % Abs Neuts (Manual) 14.1 H Lymphocytes # (Manual) 0.9 L Monocytes # (Manual) 0.5 Metamyelocytes # 1.2 Myelocytes # 1.1 Promyelocytes # Nucleated RBCs 1 H Toxic Granulation Dohle Bodies PRESENT Platelet Estimate SLIGHTLY DECREASED Plt Morphology Comment NORM RBC Morphology NOTED Polychromasia 1+ (0-2) Hypochromasia Microcytosis 1+ (5-14) Tear Drop Cells 1+ (0-2) Ovalocytes 1+ (5-14) PT 10.5 INR 0.9 D-Dimer High Sensitivty 355 Sodium 138 Potassium 3.8 Chloride 104 Carbon Dioxide 21 L Anion Gap 17 BUN 12 Creatinine 0.73 Estim Creat Clear Calc 84.8 Estimated GFR > 60 Random Glucose 191 H Calcium 7.8 L Magnesium 1.7 Total Bilirubin 0.4 Direct Bilirubin 0.2 AST 33 H D ALT 29 Alkaline Phosphatase 78 Troponin I High Sens B-Natriuretic Peptide Total Protein 5.2 L Albumin 3.4 L Urine Color Urine Appearance Urine pH Ur Specific [place] Urine Protein Urine Glucose (UA) Urine Ketones Urine Blood Urine Nitrite Ur Leukocyte Esterase C. difficile Tox B Gene COVID-19 ([facility]) COVID-19 Clin Com 11/23/21 11/23/21 11/23/21 15:45 15:50 22:07 WBC RBC Hgb Hct MCV MCH MCHC RDW Plt Count MPV Immature Gran % (Auto) Neut % (Auto) Lymph % (Auto) Ida % (Auto) Eos % (Auto) Baso % (Auto) Lymph # (Auto) Ida # (Auto) Eos # (Auto) Baso # (Auto) Abs Immat Gran (auto) Absolute Neuts (auto) Absolute Nucleated RBC Nucleated RBC % (auto) Neutrophils % (Manual) Band Neutrophils % Lymphocytes % (Manual) Monocytes % (Manual) Metamyelocytes % Myelocytes % Promyelocytes % Abs Neuts (Manual) Lymphocytes # (Manual) Monocytes # (Manual) Metamyelocytes # Myelocytes # Promyelocytes # Nucleated RBCs Toxic Granulation Dohle Bodies Platelet Estimate Plt Morphology Comment RBC Morphology Polychromasia Hypochromasia Microcytosis Tear Drop Cells Ovalocytes PT INR D-Dimer High Sensitivty Sodium Potassium Chloride Carbon Dioxide Anion Gap BUN Creatinine Estim Creat Clear Calc Estimated GFR Random Glucose Calcium Magnesium Total Bilirubin Direct Bilirubin AST ALT Alkaline Phosphatase Troponin I High Sens 8.6 B-Natriuretic Peptide 14 Total Protein Albumin Urine Color Urine Appearance Urine pH Ur Specific [place] Urine Protein Urine Glucose (UA) Urine Ketones Urine Blood Urine Nitrite Ur Leukocyte Esterase C. difficile Tox B Gene NEGATIVE COVID-19 (JEN) Negative COVID-19 Clin Com See Note 11/24/21 11/24/21 11/24/21 02:13 06:32 06:32 WBC 25.0 H RBC 3.40 L Hgb 9.4 L Hct 29.7 L MCV 87.4 MCH 27.6 MCHC 31.6 RDW 16.3 H Plt Count 136 L MPV 10.4 Immature Gran % (Auto) Cancelled Neut % (Auto) Cancelled Lymph % (Auto) Cancelled Ida % (Auto) Cancelled Eos % (Auto) Cancelled Baso % (Auto) Cancelled Lymph # (Auto) Cancelled Ida # (Auto) Cancelled Eos # (Auto) Cancelled Baso # (Auto) Cancelled Abs Immat Gran (auto) Cancelled Absolute Neuts (auto) Cancelled Absolute Nucleated RBC 0.080 H Nucleated RBC % (auto) 0.3 H Neutrophils % (Manual) 64 Band Neutrophils % 17 H Lymphocytes % (Manual) 4 L Monocytes % (Manual) 3 Metamyelocytes % 7 Myelocytes % 2 Promyelocytes % 3 Abs Neuts (Manual) 20.3 H Lymphocytes # (Manual) 1.0 L Monocytes # (Manual) 0.8 Metamyelocytes # 1.8 Myelocytes # 0.5 Promyelocytes # 0.8 Nucleated RBCs Toxic Granulation PRESENT Dohle Bodies PRESENT Platelet Estimate SLIGHTLY DECREASED Plt Morphology Comment NORM RBC Morphology NOTED Polychromasia 1+ (0-2) Hypochromasia 1+ (5-14) Microcytosis 1+ (5-14) Tear Drop Cells Ovalocytes 1+ (5-14) PT INR D-Dimer High Sensitivty Sodium 142 Potassium 3.5 Chloride 110 H Carbon Dioxide 21 L Anion Gap 15 BUN 9 Creatinine 0.65 Estim Creat Clear Calc 95.3 Estimated GFR > 60 Random Glucose 88 Calcium 7.7 L Magnesium Total Bilirubin Direct Bilirubin AST ALT Alkaline Phosphatase Troponin I High Sens B-Natriuretic Peptide Total Protein Albumin Urine Color Yellow Urine Appearance Clear Urine pH 5.5 Ur Specific [place] >= 1.030 H Urine Protein Trace Urine Glucose (UA) Negative Urine Ketones Negative Urine Blood Negative Urine Nitrite Negative Ur Leukocyte Esterase Negative C. difficile Tox B Gene COVID-19 ([facility]) COVID-19 Clin Com Imaging Radiologist's impression: Impressions Chest X-Ray 11/23/21 16:09 IMPRESSION: The distal aspect of the Port-A-Cath is not clearly visualized, and position confirmed. Repeat radiographs as clinically warranted. No acute process otherwise seen. Chest CTA 11/23/21 18:45 IMPRESSION: 1. No pulmonary emboli are detected. 2. Incidental note made of mild emphysematous changes. Enlarged heterogeneous right lobe of the thyroid, right-sided skin thickening and breast mass and mild splenomegaly. VTE: Negative. Abdomen/Pelvis CT 11/23/21 22:31 IMPRESSION: Diffuse mural thickening especially the sigmoid and the descending colon most suggestive of inflammatory or infectious otitis. No pericolic fat stranding or diverticula seen. There is subpleural fat deposition in the ascending and transverse colon, nonspecific finding but can be seen with inflammatory bowel disease no obstruction or free air seen. Small lacunar hernia containing fat. Likely previous cholecystectomy and hysterectomy. Fleischner guidelines were followed. Assessment and Plan (1) Nonsustained supraventricular tachycardia: Status: Acute Patient with intermittent episode of chest pressure correlating with her nonsustained SVT episodes. Symptoms are somewhat not classic for SVT. She does not have any symptoms of rapid heart rate or lightheadedness. We discussed pathophysiology of SVT secondary to most likely dual AV clinton physiology. These episodes are nonsustained. However there symptomatic. Will start on Toprol-XL 50 mg daily. Will follow up with outpatient testing. Given that she has symptoms of chest pressure risk factors for obstructive coronary artery disease will perform myocardial perfusion imaging as outpatient. Will also obtain echocardiogram and event monitor as outpatient. This was discussed with her. Avoidance of stimulants such as caffeine and alcohol was discussed. Continue medical management of her colitis and dehydration with IV fluids. Will sign of the case. Thank you for allowing me to partake in her care Procedures Date of Service Date of Service: 11/24/21
--- NOTE | 2021-11-24 13:36 | PM.GICN ---
History of Present Illness Data of Consult Service Date: 11/24/21 Requesting physician: Bhavesh Estrada Primary Care Provider: THA Cast HPI Reason for consult: Diarrhea, colitis This is a 66-year-old female with past medical history of recently diagnosed right breast cancer, currently on pertuzumab and chemotherapy that was started 8 days ago, who is currently admitted for intermittent runs of SVT. Gastroenterology has been consulted for ongoing diarrhea and abnormal CT scan. History was obtained from the patient, who states that she was recently found to have invasive ductal carcinoma grade 3 and underwent a right breast lumpectomy on 10/17. She was found to have micro metastases. She sees Dr. Hernández and is on chemotherapy, her 1st round was last . Saturday night, she started developing significant diarrhea was going up to 4 to 5 times a day. Describes the diarrhea as loose and watery without any blood in it. Denies any fevers or chills but does endorse significant weakness and postural hypotension. She was prescribed imodium by her Oncologist however despite taking this her diarrhea returned in a day. She was therefore advised to come to the office for IV fluid replacement. After receiving 2 L of fluids, when her vitals were checked before discharge, she was found to be in SVT with heart rates in the 170. She was therefore sent to the emergency room. In terms of the diarrhea, she says that she has not had any fevers with it. No sick contacts. No recent outside food. 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 She recently moved in 2020. She had her 1st colonoscopy when she was 52 years old, and was told she had some polyps, but thereafter had ??Cologuard every 3 years including in 2019 which was negative. No family history of ulcerative colitis, Crohn's disease or colon cancer. Father had breast cancer. Review of Systems Review of Systems: Yes all other systems are reviewed and are negative PMFSH Past Medical History Medical History (Updated 11/24/21 @ 13:47 by Tere Alonso MD) Anxiety Breast calcification, right Breast cancer, right Colitis Dermatomyositis Encounter to establish care History of COVID-19 Hypertension Insomnia Invasive ductal carcinoma of right breast Lumbar degenerative disc disease Major depression, chronic Pain in both feet Pedal edema Port-A-Cath in place Family History Family History Mother No problems noted. Father Breast cancer Bone cancer Brother Substance use disorder Paternal Aunt Breast cancer Surgical History Surgical History History of arthroscopic knee surgery History of section History of cholecystectomy History of fusion of cervical spine History of gastric bypass History of hysterectomy History of tonsillectomy Status post right breast lumpectomy Social History Social History Household Members: Children Housing: House Are you a primary patient care assistant to a significant other at home: No Do you presently have visiting nurse or other home services: No Patient Tobacco Use Status: Former Tobacco user Quit Date: 12 yrs ago Tobacco use type: Cigarette e-Cigarette/Vaping Use: Never Used Use of substances other than those prescribed or required for medical reasons: No Advance Directives: No Advance Directives Information Provided: Yes service: No Current occupational status: unemployed and retired Cognitive needs: Yes (cane) Hearing needs: No Vision needs: Yes (glasses) Meds Allergies Allergy/AdvReac Type Severity Reaction Status Date / Time No Known Allergies Allergy Verified 11/14/21 11:02 Active Medications: Current Medications Acetaminophen (Acetaminophen 325 Mg Tablet) 650 mg PO Q6H PRN PRN Reason: Pain, Mild (Pain Scale 1-3) Calcitriol (Calcitriol 0.25 Mcg Capsule) 0.25 mcg PO DAILY [facility] Last Admin: 11/24/21 09:53 Dose: 0.25 mcg Calcium Carbonate/Cholecalciferol (Calcium + Vitamin D 250 Mg Tablet) 500 mg PO DAILY [facility] Last Admin: 11/24/21 09:15 Dose: 500 mg Cyanocobalamin (Cyanocobalamin (Vitamin B-12) 1,000 Mcg Tablet) 1,000 mcg PO BEDTIME [facility] Diphenhydramine HCl (Diphenhydramine Hcl 25 Mg Tablet) 25 mg PO TID PRN PRN Reason: itching Duloxetine HCl (Duloxetine Hcl 60 Mg Capsule.Dr) 60 mg PO BEDTIME [facility] Enoxaparin Sodium (Enoxaparin Sodium 40 Mg/0.4 Ml Syringe) 40 mg SUBCUT Q24H [facility] Last Admin: 11/24/21 00:20 Dose: 40 mg Sodium Chloride (Ns) 1,000 mls @ 100 mls/hr IVCONT .Q10H [facility] Last Admin: 11/24/21 09:08 Dose: 100 mls/hr Ceftriaxone Sodium 1 gm/ (Sodium Chloride) 50 mls @ 100 mls/hr IV BEDTIME [facility] Last Infusion: 11/24/21 02:11 Dose: Infused Metronidazole (Flagyl) 500 mg in 100 mls @ 100 mls/hr IV Q8H [facility] Last Infusion: 11/24/21 10:11 Dose: Infused Metoprolol Tartrate (Metoprolol Tartrate 25 Mg Tablet) 25 mg PO BID [facility]; Protocol Last Admin: 11/24/21 09:15 Dose: 25 mg Nystatin (Nystatin Oral Susp 500,000 Unit/5 Ml Oral.Susp) 400,000 unit PO QID [facility]; Protocol Last Admin: 11/24/21 13:13 Dose: 400,000 unit Ondansetron HCl (Ondansetron Hcl 4 Mg/2 Ml Vial) 4 mg IVPUSH Q8H PRN PRN Reason: Nausea and Vomiting Pharmacy Consult (Consult Rx Perform Med Rec) 1 each MISCELLANE ONCE PRN PRN Reason: Consult order Prednisone (Prednisone 10 Mg Tablet) 30 mg PO BID [facility] Last Admin: 11/24/21 09:15 Dose: 30 mg Sodium Chloride (0.9 % Sodium Chloride Flush 3 Ml Syringe) 3 ml IVFLUSH QSHIFT [facility] Last Admin: 11/24/21 07:04 Dose: Not Given Vitamin D (Cholecalciferol (Vitamin D3) 25 Mcg Tablet) 25 mcg PO DAILY [facility] Last Admin: 11/24/21 09:15 Dose: 25 mcg Home Medications Medication Instructions Recorded Confirmed Last Taken Type ketoconazole 2 % shampoo 1 appl topical 2XW 09/28/21 11/23/21 Unknown History cyanocobalamin (vitamin B-12) 1,000 mcg PO BEDTIME 10/12/21 11/23/21 Unknown History 1,000 mcg capsule duloxetine 60 mg capsule,delayed 60 mg PO BEDTIME 10/12/21 11/23/21 Unknown History release lutein 40 mg capsule 40 mg PO DAILY 10/30/21 11/23/21 Unknown History calcium carbonate 600 mg-vitamin 1 tab PO DAILY 10/31/21 11/23/21 Unknown History D3 10 mcg (400 unit) tablet prednisone 10 mg tablet 60 mg PO QAM 11/08/21 11/23/21 Unknown History alendronate 70 mg tablet 70 mg PO FR 11/23/21 11/23/21 Unknown History betamethasone dipropionate 0.05 % 1 appl topical BID PRN psorias 11/23/21 11/23/21 Unknown History lotion flare up cholecalciferol (vitamin D3) 25 25 mcg PO DAILY 11/23/21 11/23/21 Unknown History mcg (1,000 unit) tablet Physical Exam Vital Signs: Vital Signs: Last Vital Signs Temp 98.5 F 11/24/21 10:59 Pulse 72 11/24/21 10:59 Resp 14 11/24/21 10:59 BP 119/67 11/24/21 10:59 Pulse Ox 97 11/24/21 10:59 O2 Del Method 11/24/21 10:59 BMI result Body Mass Index 36.7 Gen appear: No acute distress, sanchez facies HEENT: no icterus, no cervical lymphadenopathy Chest: No overt resp distress CVS: S1/S2, regular Abd: soft, nontender, nondistended Psych: Stable affect, answering questions appropriately Neuro: A/Ox3 noted to move all extremities spontaneously Ext: no peripheral edema Results Labs CBC & Chem 7: 11/24/21 06:32 11/24/21 06:32 Labs: Short CBC 11/23/21 11/24/21 Range/Units 15:45 06:32 WBC 17.8 H 25.0 H (4.8-10.8) X10*3/uL Hgb 9.7 L 9.4 L (12.0-16.0) g/dl Hct 31.3 L 29.7 L (37.0-47.0) % Plt Count 147 L 136 L (160-400) X10*3/uL BMP 11/23/21 11/24/21 15:45 06:32 Sodium 138 142 Potassium 3.8 3.5 Chloride 104 110 H Carbon Dioxide 21 L 21 L BUN 12 9 Creatinine 0.73 0.65 Calcium 7.8 L 7.7 L Liver Function 11/23/21 Range/Units 15:45 Total Bilirubin 0.4 (0.0-1.0) mg/dL Direct Bilirubin 0.2 (0.0-0.5) mg/dL AST 33 H D (5-31) U/L ALT 29 (0-31) U/L Alkaline Phosphatase 78 (39-117) U/L Albumin 3.4 L (3.5-5.0) g/dL Urine 11/24/21 Range/Units 02:13 Urine Color Yellow Urine Appearance Clear Urine pH 5.5 (5.0-9.0) Ur Specific [place] >= 1.030 H (1.005-1.025) Urine Protein Trace (Neg-Trace) mg/dL Urine Glucose (UA) Negative (Negative) mg/dL Imaging CT scan - abdomen: My impression: shows wall thickening in transverse colon with some involvement of the ascending colon as well. Sigmoid and rectum within normal limits. Hard to discern if there is pericolonic fat stranding. Assessment and Plan (1) Diarrhea: Status: Acute (2) Nonsustained supraventricular tachycardia: Status: Acute (3) Invasive ductal carcinoma of right breast: Status: Acute (4) Dehydration: Status: Acute (5) Colitis: Status: Acute Plan Suspect SVT runs were likely due to dehydration from diarrhea. Differentials for her colitis include infectious, inflammatory and ischemic. Pertuzumab is well known for its side effect of watery diarrhea that can occur in 70% of the patients within days of the therapy rolanda in combination with trastuzamab. This can be temporized with antimotility agents. Colitis is rare, but has been reported. Given her immunosuppressed state, and rising white count, would strongly recommend completing an infectious workup. Would also schedule her for a colonoscopy for endoscopic evaluation +/-biopsy. C Diff has already been ruled out. GI PCR pending. Recommend: - IV resusitation - Follow up on GI panel - Can have diet as tolerated today and tomorrow - Golytely on saturday evening. Pls make her NPO after midnight for Monday 11/27. Reviewed with the hospitalist. Procedures Date of Service Date of Service: 11/24/21
[2021-11-24 14:22] LABS: Adenovirus F 40/41 Not Detected (Not Detect.); Astrovirus Not Detected (Not Detect.); Campylobacter Not Detected (Not Detect.); Cryptosporidium Not Detected (Not Detect.); Cyclospora cayetanensis Not Detected (Not Detect.); E. coli EAEC Not Detected (Not Detect.); E. coli EPEC Not Detected (Not Detect.); E. coli ETEC Not Detected (Not Detect.); E. coli STEC Not Detected (Not Detect.); Entamoeba histolytica Not Detected (Not Detect.); Giardia lamblia Not Detected (Not Detect.); Norovirus GI/GII Not Detected (Not Detect.); Plesiomonas shigelloides Not Detected (Not Detect.); Rotavirus A Not Detected (Not Detect.); Salmonella Not Detected (Not Detect.); Sapovirus Not Detected (Not Detect.); Shigella sp./EIEC Not Detected (Not Detect.); Vibrio Not Detected (Not Detect.); Vibrio Cholerae Not Detected (Not Detect.); Yersinia enterocolitica Not Detected (Not Detect.)
--- NOTE | 2021-11-24 14:28 | HO.PM.IMPN ---
Subjective Subjective Date of Service: 11/24/21 Interval History: No acute events overnight. Diarrhea persistent Review of Systems Denies chest pain Denies shortness of breath Denies fever chills Admits to diarrhea and mild nausea Physical Exam Vital Signs: Vital Signs: Last Vital Signs Temp 98.5 F 11/24/21 13:58 Pulse 81 11/24/21 13:58 Resp 16 11/24/21 13:58 BP 142/75 H 11/24/21 13:58 Pulse Ox 97 11/24/21 13:58 O2 Del Method 11/24/21 13:58 BMI result Body Mass Index 36.7 Const: Other: No acute distress Resp: Other: Clear to auscultation bilaterally no rales rhonchi wheezes Cardio: Other: No S4; positive S1-S2; no S3 murmurs rubs or gallops GI: Other: Soft nontender nondistended normoactive bowel sounds Extrem: Other: No edema bilaterally Objective Data Active Medications Acetaminophen (Acetaminophen 325 Mg Tablet) 650 mg PO Q6H PRN PRN Reason: Pain, Mild (Pain Scale 1-3) Calcitriol (Calcitriol 0.25 Mcg Capsule) 0.25 mcg PO DAILY [facility] Last Admin: 11/24/21 09:53 Dose: 0.25 mcg Documented By: CASH Calcium Carbonate/Cholecalciferol (Calcium + Vitamin D 250 Mg Tablet) 500 mg PO DAILY [facility] Last Admin: 11/24/21 09:15 Dose: 500 mg Documented By: CASH Cyanocobalamin (Cyanocobalamin (Vitamin B-12) 1,000 Mcg Tablet) 1,000 mcg PO BEDTIME [facility] Diphenhydramine HCl (Diphenhydramine Hcl 25 Mg Tablet) 25 mg PO TID PRN PRN Reason: itching Duloxetine HCl (Duloxetine Hcl 60 Mg Capsule.Dr) 60 mg PO BEDTIME [facility] Enoxaparin Sodium (Enoxaparin Sodium 40 Mg/0.4 Ml Syringe) 40 mg SUBCUT Q24H [facility] Last Admin: 11/24/21 00:20 Dose: 40 mg Documented By: YOVANI Sodium Chloride (Ns) 1,000 mls @ 100 mls/hr IVCONT .Q10H [facility] Last Admin: 11/24/21 09:08 Dose: 100 mls/hr Documented By: CASH Ceftriaxone Sodium 1 gm/ (Sodium Chloride) 50 mls @ 100 mls/hr IV BEDTIME [facility] Last Infusion: 11/24/21 02:11 Dose: 0 mls/hr Documented By: CASH Metronidazole (Flagyl) 500 mg in 100 mls @ 100 mls/hr IV Q8H [facility] Last Infusion: 11/24/21 10:11 Dose: 0 mls/hr Documented By: CASH Metoprolol Tartrate (Metoprolol Tartrate 25 Mg Tablet) 25 mg PO BID [facility]; Protocol Last Admin: 11/24/21 09:15 Dose: 25 mg Documented By: CASH Nystatin (Nystatin Oral Susp 500,000 Unit/5 Ml Oral.Susp) 400,000 unit PO QID [facility]; Protocol Last Admin: 11/24/21 13:13 Dose: 400,000 unit Documented By: CASH Ondansetron HCl (Ondansetron Hcl 4 Mg/2 Ml Vial) 4 mg IVPUSH Q8H PRN PRN Reason: Nausea and Vomiting Pharmacy Consult (Consult Rx Perform Med Rec) 1 each MISCELLANE ONCE PRN PRN Reason: Consult order Polyethylene Glycol/Electrolytes (Peg 3350/Na Sulf,Bicarb,Cl/Kcl 4,000 Ml Soln.Recon) 4,000 ml PO ONCE ONE Stop: 11/26/21 03:01 Prednisone (Prednisone 10 Mg Tablet) 30 mg PO BID [facility] Last Admin: 11/24/21 09:15 Dose: 30 mg Documented By: CASH Sodium Chloride (0.9 % Sodium Chloride Flush 3 Ml Syringe) 3 ml IVFLUSH QSHIFT [facility] Last Admin: 11/24/21 07:04 Dose: Not Given Documented By: CASH Non-Admin Reason: IV Running Vitamin D (Cholecalciferol (Vitamin D3) 25 Mcg Tablet) 25 mcg PO DAILY [facility] Last Admin: 11/24/21 09:15 Dose: 25 mcg Documented By: CASH Labs CBC & Chem 7: 11/24/21 06:32 11/24/21 06:32 Labs: Laboratory Results - last 24 hr 11/23/21 11/23/21 11/23/21 15:45 15:45 15:45 MCV 86.9 MCH 26.9 L MCHC 31.0 RDW 16.2 H Plt Count 147 L MPV 10.6 Immature Gran % (Auto) Cancelled Neut % (Auto) Cancelled Lymph % (Auto) Cancelled [place] % (Auto) Cancelled Eos % (Auto) Cancelled Baso % (Auto) Cancelled Lymph # (Auto) Cancelled [place] # (Auto) Cancelled Eos # (Auto) Cancelled Baso # (Auto) Cancelled Abs Immat Gran (auto) Cancelled Absolute Neuts (auto) Cancelled Absolute Nucleated RBC 0.040 H Nucleated RBC % (auto) 0.2 Neutrophils % (Manual) 57 Band Neutrophils % 22 H Lymphocytes % (Manual) 5 L Monocytes % (Manual) 3 Metamyelocytes % 7 Myelocytes % 6 Promyelocytes % Abs Neuts (Manual) 14.1 H Lymphocytes # (Manual) 0.9 L Monocytes # (Manual) 0.5 Metamyelocytes # 1.2 Myelocytes # 1.1 Promyelocytes # Nucleated RBCs 1 H Toxic Granulation Dohle Bodies PRESENT Platelet Estimate SLIGHTLY DECREASED Plt Morphology Comment NORM RBC Morphology NOTED Polychromasia 1+ (0-2) Hypochromasia Microcytosis 1+ (5-14) Tear Drop Cells 1+ (0-2) Ovalocytes 1+ (5-14) PT 10.5 INR 0.9 D-Dimer High Sensitivty 355 Anion Gap 17 Estim Creat Clear Calc 84.8 Estimated GFR > 60 Random Glucose 191 H Calcium 7.8 L Magnesium 1.7 Total Bilirubin 0.4 Direct Bilirubin 0.2 AST 33 H D ALT 29 Alkaline Phosphatase 78 B-Natriuretic Peptide Total Protein 5.2 L Albumin 3.4 L Urine Color Urine Appearance Urine pH Ur Specific [place] Urine Protein Urine Glucose (UA) Urine Ketones Urine Blood Urine Nitrite Ur Leukocyte Esterase Stl C. cayetanensis PCR Stool Rotavirus A PCR Stl Adenov F 40/41 PCR Stool Astrovirus (PCR) Stool Campylobacter PCR Stool Cryptosporidium PCR Stl Sh Tox Pr E STEC PCR Stool E coli O157 PCR Stl Enterotoxigenic E PCR Stool EPEC (PCR) Stool EAEC (PCR) Stl E. histolytica PCR Stool Giardia Lamblia PCR Stl P. shigelloides PCR Stool Salmonella PCR Stool Sapovirus (PCR) Stl Shigella/EIEC PCR St Y.enterocolitica PCR Stool Vibrio (PCR) Stl Vibrio cholerae PCR Stl Norovirus GI/GII PCR C. difficile Tox B Gene COVID-19 (JEN) COVID-19 Clin Com 11/23/21 11/23/21 11/23/21 15:45 15:50 22:07 MCV MCH MCHC RDW Plt Count MPV Immature Gran % (Auto) Neut % (Auto) Lymph % (Auto) [place] % (Auto) Eos % (Auto) Baso % (Auto) Lymph # (Auto) [place] # (Auto) Eos # (Auto) Baso # (Auto) Abs Immat Gran (auto) Absolute Neuts (auto) Absolute Nucleated RBC Nucleated RBC % (auto) Neutrophils % (Manual) Band Neutrophils % Lymphocytes % (Manual) Monocytes % (Manual) Metamyelocytes % Myelocytes % Promyelocytes % Abs Neuts (Manual) Lymphocytes # (Manual) Monocytes # (Manual) Metamyelocytes # Myelocytes # Promyelocytes # Nucleated RBCs Toxic Granulation Dohle Bodies Platelet Estimate Plt Morphology Comment RBC Morphology Polychromasia Hypochromasia Microcytosis Tear Drop Cells Ovalocytes PT INR D-Dimer High Sensitivty Anion Gap Estim Creat Clear Calc Estimated GFR Random Glucose Calcium Magnesium Total Bilirubin Direct Bilirubin AST ALT Alkaline Phosphatase B-Natriuretic Peptide 14 Total Protein Albumin Urine Color Urine Appearance Urine pH Ur Specific [place] Urine Protein Urine Glucose (UA) Urine Ketones Urine Blood Urine Nitrite Ur Leukocyte Esterase Stl C. cayetanensis PCR Stool Rotavirus A PCR Stl Adenov F 40/41 PCR Stool Astrovirus (PCR) Stool Campylobacter PCR Stool Cryptosporidium PCR Stl Sh Tox Pr E STEC PCR Stool E coli O157 PCR Stl Enterotoxigenic E PCR Stool EPEC (PCR) Stool EAEC (PCR) Stl E. histolytica PCR Stool Giardia Lamblia PCR Stl P. shigelloides PCR Stool Salmonella PCR Stool Sapovirus (PCR) Stl Shigella/EIEC PCR St Y.enterocolitica PCR Stool Vibrio (PCR) Stl Vibrio cholerae PCR Stl Norovirus GI/GII PCR C. difficile Tox B Gene NEGATIVE COVID-19 (JEN) Negative COVID-19 Clin Com See Note 11/23/21 11/24/21 11/24/21 22:09 02:13 06:32 MCV 87.4 MCH 27.6 MCHC 31.6 RDW 16.3 H Plt Count 136 L MPV 10.4 Immature Gran % (Auto) Cancelled Neut % (Auto) Cancelled Lymph % (Auto) Cancelled [place] % (Auto) Cancelled Eos % (Auto) Cancelled Baso % (Auto) Cancelled Lymph # (Auto) Cancelled [place] # (Auto) Cancelled Eos # (Auto) Cancelled Baso # (Auto) Cancelled Abs Immat Gran (auto) Cancelled Absolute Neuts (auto) Cancelled Absolute Nucleated RBC 0.080 H Nucleated RBC % (auto) 0.3 H Neutrophils % (Manual) 64 Band Neutrophils % 17 H Lymphocytes % (Manual) 4 L Monocytes % (Manual) 3 Metamyelocytes % 7 Myelocytes % 2 Promyelocytes % 3 Abs Neuts (Manual) 20.3 H Lymphocytes # (Manual) 1.0 L Monocytes # (Manual) 0.8 Metamyelocytes # 1.8 Myelocytes # 0.5 Promyelocytes # 0.8 Nucleated RBCs Toxic Granulation PRESENT Dohle Bodies PRESENT Platelet Estimate SLIGHTLY DECREASED Plt Morphology Comment NORM RBC Morphology NOTED Polychromasia 1+ (0-2) Hypochromasia 1+ (5-14) Microcytosis 1+ (5-14) Tear Drop Cells Ovalocytes 1+ (5-14) PT INR D-Dimer High Sensitivty Anion Gap Estim Creat Clear Calc Estimated GFR Random Glucose Calcium Magnesium Total Bilirubin Direct Bilirubin AST ALT Alkaline Phosphatase B-Natriuretic Peptide Total Protein Albumin Urine Color Yellow Urine Appearance Clear Urine pH 5.5 Ur Specific [place] >= 1.030 H Urine Protein Trace Urine Glucose (UA) Negative Urine Ketones Negative Urine Blood Negative Urine Nitrite Negative Ur Leukocyte Esterase Negative Stl C. cayetanensis PCR Not Detected Stool Rotavirus A PCR Not Detected Stl Adenov F 40/41 PCR Not Detected Stool Astrovirus (PCR) Not Detected Stool Campylobacter PCR Not Detected Stool Cryptosporidium PCR Not Detected Stl Sh Tox Pr E STEC PCR Not Detected Stool E coli O157 PCR Not applicable Stl Enterotoxigenic E PCR Not Detected Stool EPEC (PCR) Not Detected Stool EAEC (PCR) Not Detected Stl E. histolytica PCR Not Detected Stool Giardia Lamblia PCR Not Detected Stl P. shigelloides PCR Not Detected Stool Salmonella PCR Not Detected Stool Sapovirus (PCR) Not Detected Stl Shigella/EIEC PCR Not Detected St Y.enterocolitica PCR Not Detected Stool Vibrio (PCR) Not Detected Stl Vibrio cholerae PCR Not Detected Stl Norovirus GI/GII PCR Not Detected C. difficile Tox B Gene COVID-19 (JEN) COVID-19 Clin Com 11/24/21 06:32 MCV MCH MCHC RDW Plt Count MPV Immature Gran % (Auto) Neut % (Auto) Lymph % (Auto) [place] % (Auto) Eos % (Auto) Baso % (Auto) Lymph # (Auto) [place] # (Auto) Eos # (Auto) Baso # (Auto) Abs Immat Gran (auto) Absolute Neuts (auto) Absolute Nucleated RBC Nucleated RBC % (auto) Neutrophils % (Manual) Band Neutrophils % Lymphocytes % (Manual) Monocytes % (Manual) Metamyelocytes % Myelocytes % Promyelocytes % Abs Neuts (Manual) Lymphocytes # (Manual) Monocytes # (Manual) Metamyelocytes # Myelocytes # Promyelocytes # Nucleated RBCs Toxic Granulation Dohle Bodies Platelet Estimate Plt Morphology Comment RBC Morphology Polychromasia Hypochromasia Microcytosis Tear Drop Cells Ovalocytes PT INR D-Dimer High Sensitivty Anion Gap 15 Estim Creat Clear Calc 95.3 Estimated GFR > 60 Random Glucose 88 Calcium 7.7 L Magnesium Total Bilirubin Direct Bilirubin AST ALT Alkaline Phosphatase B-Natriuretic Peptide Total Protein Albumin Urine Color Urine Appearance Urine pH Ur Specific [place] Urine Protein Urine Glucose (UA) Urine Ketones Urine Blood Urine Nitrite Ur Leukocyte Esterase Stl C. cayetanensis PCR Stool Rotavirus A PCR Stl Adenov F 40/41 PCR Stool Astrovirus (PCR) Stool Campylobacter PCR Stool Cryptosporidium PCR Stl Sh Tox Pr E STEC PCR Stool E coli O157 PCR Stl Enterotoxigenic E PCR Stool EPEC (PCR) Stool EAEC (PCR) Stl E. histolytica PCR Stool Giardia Lamblia PCR Stl P. shigelloides PCR Stool Salmonella PCR Stool Sapovirus (PCR) Stl Shigella/EIEC PCR St Y.enterocolitica PCR Stool Vibrio (PCR) Stl Vibrio cholerae PCR Stl Norovirus GI/GII PCR C. 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 1.Nonsustained PSVT- stable, possibly secondary to dehydration though patient reports prior episodes -Continue telemetry -Continue metoprolol 25mg BID -outpatient workup 2.Dehydration secondary to diarrhea -Continue IVF -Follow BMP 3-Acute diarrhea- infectious vs chemotherapy side effect -CDiff negative -Advance diet as tolerated 4-Oral candidiasis secondary to prolonged steroid use -Nystatin swish and swallow [id number] -Continue metoprolol as above -Hold home meds 6-Depression/anxiety -Continue duloxetine. Hold clonidine 7-Dermatomyositis -Continue prednisone per rheumatology 8-DCIS right breath on chemotherapy as above -Continue plan per oncology DVT prophylaxis- lovenox Full code Requires ongoing hospitalization for IV volume repletion secondary to diarrhea Quality Stroke Does the patient have a stroke diagnosis?: No VTE Prior VTE?: No VTE Risk Level:: Medical - moderate - high VTE Device Contraindication: Treatment Not Indicated VTE Drug Contraindication: N/A - Med Ordered
[2021-11-24] MEDS: Metoprolol Succinate ER 50 MG TAB.ER.24H PO (14:42)
[2021-11-24] MEDS: Metoprolol Tartrate 5 MG/5 ML VIAL IVPUSH ×2 (14:54→15:34)
[2021-11-24] MEDS: DULoxetine HCl 60 MG CAPSULE.DR PO (20:30)
[2021-11-24] MEDS: Cyanocobalamin (Vitamin B-12) 1,000 MCG TABLET 1000 MCG PO (20:30)
[2021-11-25] MEDS: metroNIDAZOLE/NS 500 MG/100 ML PIGGYBACK 100 MG IV ×3 (01:30→17:49)
[2021-11-25 03:22] VITALS: BP 138/67; PULSE 69; RESP 14; TEMP 36.8; O2SAT 97
[2021-11-25] MEDS: 0.9 % Sodium Chloride 1,000 ML 100 ML IVCONT ×2 (07:12→14:45)
[2021-11-25 07:15] LABS: Hematocrit 30.7 % (37.0-47.0); Hemoglobin 9.5 g/dl (12.0-16.0); Mean Corpuscular HGB Conc 30.9 g/dl (31.0-35.0); Mean Corpuscular Hemoglobin 27.2 pg (27.0-33.0); Mean Platelet Volume 10.2 fL (9.4-12.3); NRBC Pct Auto 0.5 /100WBC (0.0-0.2); Platelet Count 136 X10*3/uL (160-400); Red Blood Count 3.49 X10*6/uL (4.20-5.50); Red Cell Distribution Width 16.7 % (11.0-16.0)
[2021-11-25 07:26] LABS: WBC ABN SCTR FOR CBC 1
[2021-11-25 07:43] VITALS: BP 140/87; PULSE 65; RESP 18; TEMP 36.5; O2SAT 96
[2021-11-25 07:47] LABS: Alanine Aminotransferase 32 U/L (0-31); Albumin Level 3.2 g/dL (3.5-5.0); Anion Gap 18 (12-20); Aspartate Amino Transferase 37 U/L (5-31); Bilirubin Total 0.3 mg/dL (0.0-1.0); Blood Urea Nitrogen 10 mg/dL (9-16); Calcium 7.3 mg/dL (8.4-10.2); Carbon Dioxide 18 mmol/L (22-29); Chloride 112 mmol/L (96-108); Creatinine Clr Calc Pharmacy 94.9; Estimated Glomerular Filt Rate > 60; Glucose Fasting 129 mg/dL (60-99); Sodium 143 mmol/L (135-145)
[2021-11-25 08:23] LABS: Band Neutrophils Percent 19 % (3-5); Lymphocytes Percent Manual 4 % (20-40); Metamyelocytes Percent 2 %; Monocytes Percent Manual 6 % (2-11); Myelocytes Percent 2 %; Neutrophils Percent Manual 65 % (45-73); Promyelocytes Percent 2 %
[2021-11-25 08:24] LABS: Polychromasia 2+ (3-5) /OIF; RBC Morphology NOTED; Tear Drop Cells 1+ (0-2) /OIF
[2021-11-25 08:25] LABS: Dohle Bodies PRESENT; Ovalocytes 1+ (5-14) /OIF; Toxic Granulation PRESENT
[2021-11-25 08:26] LABS: Microcytosis 1+ (5-14) /OIF
[2021-11-25 08:27] LABS: Platelet Estimate SLIGHTLY DECREASED (NORMAL); Platelet Morphology Comment NORMAL
[2021-11-25 08:29] LABS: Hypochromasia 1+ (5-14) /OIF
[2021-11-25 08:30] LABS: Lymphocytes Absolute Manual 1.1 X10*3/uL (1.2-4.9); Metamyelocytes Absolute 0.5 X10*3/uL; Monocytes Absolute Manual 1.6 X10*3/uL (0.1-1.2); Myelocytes Absolute 0.5 X10*/uL; Neutrophils Absolute Manual 22.6 X10*3/uL (2.0-8.3); Promyelocytes Absolute 0.5 X10*3/uL; White Blood Count 26.9 X10*3/uL (4.8-10.8)
[2021-11-25 08:41] LABS: Alkaline Phosphatase 143 U/L (39-117); Potassium 4.5 mmol/L (3.3-5.1)
[2021-11-25] MEDS: Nystatin Oral Susp 500,000 UNIT/5 ML ORAL.SUSP 400000 UNIT PO ×4 (08:57→20:36)
[2021-11-25] MEDS: Calcium + Vitamin D 250 MG TABLET 500 MG PO (08:58)
[2021-11-25] MEDS: Metoprolol Tartrate 25 MG TABLET PO ×2 (08:58→20:36)
[2021-11-25] MEDS: predniSONE 10 MG TABLET 30 MG PO ×2 (08:58→20:35)
[2021-11-25] MEDS: Metoprolol Succinate ER 50 MG TAB.ER.24H PO (08:58)
[2021-11-25] MEDS: calcitrioL 0.25 MCG CAPSULE PO (08:58)
[2021-11-25] MEDS: Cholecalciferol (Vitamin D3) 25 MCG TABLET PO (08:58)
[2021-11-25] MEDS: 0.9 % Sodium Chloride Flush 3 ML SYRINGE IVFLUSH ×3 (08:59→20:41)
--- NOTE | 2021-11-25 11:55 | HO.PM.IMPN ---
Subjective Subjective Date of Service: 11/25/21 Interval History: Still with episodic diarrhea. Minimal abdomen pain.... Hungry Review of Systems Denies chest pain Denies shortness of breath Denies fever chills Admits to diarrhea and mild nausea Physical Exam Vital Signs: Vital Signs: Last Vital Signs Temp 97.7 F 11/25/21 07:43 Pulse 65 11/25/21 07:43 Resp 18 11/25/21 07:43 BP 140/87 H 11/25/21 07:43 Pulse Ox 96 11/25/21 07:43 O2 Del Method 11/25/21 07:43 BMI result Body Mass Index 37.5 Const: Other: No acute distress Resp: Other: Clear to auscultation bilaterally no rales rhonchi wheezes Cardio: Other: No S4; positive S1-S2; no S3 murmurs rubs or gallops GI: Other: Soft nontender nondistended normoactive bowel sounds Extrem: Other: No edema bilaterally Objective Data Active Medications Acetaminophen (Acetaminophen 325 Mg Tablet) 650 mg PO Q6H PRN PRN Reason: Pain, Mild (Pain Scale 1-3) Calcitriol (Calcitriol 0.25 Mcg Capsule) 0.25 mcg PO DAILY [facility] Last Admin: 11/25/21 08:58 Dose: 0.25 mcg Documented By: MARU Calcium Carbonate/Cholecalciferol (Calcium + Vitamin D 250 Mg Tablet) 500 mg PO DAILY [facility] Last Admin: 11/25/21 08:58 Dose: 500 mg Documented By: MARU Cyanocobalamin (Cyanocobalamin (Vitamin B-12) 1,000 Mcg Tablet) 1,000 mcg PO BEDTIME [facility] Last Admin: 11/24/21 20:30 Dose: 1,000 mcg Documented By: RICHARD Diphenhydramine HCl (Diphenhydramine Hcl 25 Mg Tablet) 25 mg PO TID PRN PRN Reason: itching Duloxetine HCl (Duloxetine Hcl 60 Mg Capsule.) 60 mg PO BEDTIME [facility] Last Admin: 11/24/21 20:30 Dose: 60 mg Documented By: RICHARD Enoxaparin Sodium (Enoxaparin Sodium 40 Mg/0.4 Ml Syringe) 40 mg SUBCUT Q24H [facility] Last Admin: 11/24/21 20:38 Dose: 40 mg Documented By: RICHARD Sodium Chloride (Ns) 1,000 mls @ 100 mls/hr IVCONT .Q10H [facility] Last Admin: 11/25/21 07:12 Dose: 100 mls/hr Documented By: MARU Ceftriaxone Sodium 1 gm/ (Sodium Chloride) 50 mls @ 100 mls/hr IV BEDTIME [facility] Last Infusion: 11/24/21 21:00 Dose: 0 mls/hr Documented By: RICHARD Metronidazole (Flagyl) 500 mg in 100 mls @ 100 mls/hr IV Q8H [facility] Last Infusion: 11/25/21 09:58 Dose: 0 mls/hr Documented By: MARU Metoprolol Succinate (Metoprolol Succinate Er 50 Mg Tab.Er.24h) 50 mg PO DAILY [facility]; Protocol Last Admin: 11/25/21 08:58 Dose: 50 mg Documented By: MARU Metoprolol Tartrate (Metoprolol Tartrate 25 Mg Tablet) 25 mg PO BID [facility]; Protocol Last Admin: 11/25/21 08:58 Dose: 25 mg Documented By: MARU Nystatin (Nystatin Oral Susp 500,000 Unit/5 Ml Oral.Susp) 400,000 unit PO QID [facility]; Protocol Last Admin: 11/25/21 08:57 Dose: 400,000 unit Documented By: MARU Ondansetron HCl (Ondansetron Hcl 4 Mg/2 Ml Vial) 4 mg IVPUSH Q8H PRN PRN Reason: Nausea and Vomiting Pharmacy Consult (Consult Rx Perform Med Rec) 1 each MISCELLANE ONCE PRN PRN Reason: Consult order Polyethylene Glycol/Electrolytes (Peg 3350/Na Sulf,Bicarb,Cl/Kcl 4,000 Ml Soln.Recon) 4,000 ml PO ONCE ONE Stop: 11/26/21 03:01 Prednisone (Prednisone 10 Mg Tablet) 30 mg PO BID [facility] Last Admin: 11/25/21 08:58 Dose: 30 mg Documented By: MARU Sodium Chloride (0.9 % Sodium Chloride Flush 3 Ml Syringe) 3 ml IVFLUSH QSHIFT [facility] Last Admin: 11/25/21 08:59 Dose: 3 ml Documented By: MARU Vitamin D (Cholecalciferol (Vitamin D3) 25 Mcg Tablet) 25 mcg PO DAILY [facility] Last Admin: 11/25/21 08:58 Dose: 25 mcg Documented By: MARU Labs CBC & Chem 7: 11/25/21 06:14 11/25/21 06:14 Labs: Laboratory Results - last 24 hr 11/23/21 11/25/21 11/25/21 22:09 06:14 06:14 MCV 88.0 MCH 27.2 MCHC 30.9 L RDW 16.7 H Plt Count 136 L MPV 10.2 Immature Gran % (Auto) Cancelled Neut % (Auto) Cancelled Lymph % (Auto) Cancelled [place] % (Auto) Cancelled Eos % (Auto) Cancelled Baso % (Auto) Cancelled Lymph # (Auto) Cancelled [place] # (Auto) Cancelled Eos # (Auto) Cancelled Baso # (Auto) Cancelled Abs Immat Gran (auto) Cancelled Absolute Neuts (auto) Cancelled Absolute Nucleated RBC 0.140 H Nucleated RBC % (auto) 0.5 H Neutrophils % (Manual) 65 Band Neutrophils % 19 H Lymphocytes % (Manual) 4 L Monocytes % (Manual) 6 Metamyelocytes % 2 Myelocytes % 2 Promyelocytes % 2 Abs Neuts (Manual) 22.6 H Lymphocytes # (Manual) 1.1 L Monocytes # (Manual) 1.6 H Metamyelocytes # 0.5 Myelocytes # 0.5 Promyelocytes # 0.5 Toxic Granulation PRESENT Dohle Bodies PRESENT Platelet Estimate SLIGHTLY DECREASED Plt Morphology Comment NORMAL RBC Morphology NOTED Polychromasia 2+ (3-5) Hypochromasia 1+ (5-14) Microcytosis 1+ (5-14) Tear Drop Cells 1+ (0-2) Ovalocytes 1+ (5-14) Anion Gap 18 Estim Creat Clear Calc 94.9 Estimated GFR > 60 Fasting Glucose 129 H Calcium 7.3 L Total Bilirubin 0.3 AST 37 H ALT 32 H Alkaline Phosphatase 143 H D Total Protein 5.0 L Albumin 3.2 L Stl C. cayetanensis PCR Not Detected Stool Rotavirus A PCR Not Detected Stl Adenov F 40/41 PCR Not Detected Stool Astrovirus (PCR) Not Detected Stool Campylobacter PCR Not Detected Stool Cryptosporidium PCR Not Detected Stl Sh Tox Pr E STEC PCR Not Detected Stool E coli O157 PCR Not applicable Stl Enterotoxigenic E PCR Not Detected Stool EPEC (PCR) Not Detected Stool EAEC (PCR) Not Detected Stl E. histolytica PCR Not Detected Stool Giardia Lamblia PCR Not Detected Stl P. 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 1.Nonsustained PSVT -1 episode overnight -Continue telemetry -Continue metoprolol 25mg BID -outpatient workup 2.Dehydration secondary to diarrhea -Continue IVF -Follow BMP 3-Acute diarrhea- infectious vs chemotherapy side effect -CDiff negative -Advance diet as tolerated -colon 11/27 4-Oral candidiasis secondary to prolonged steroid use -Nystatin swish and swallow [id number] -Continue metoprolol as above -Hold home meds 6-Depression/anxiety -Continue duloxetine. Hold clonidine 7-Dermatomyositis -Continue prednisone per rheumatology 8-DCIS right breath on chemotherapy as above -Continue plan per oncology DVT prophylaxis- lovenox Full code Requires ongoing hospitalization for IV volume repletion secondary to diarrhea Quality Stroke Does the patient have a stroke diagnosis?: No VTE Prior VTE?: No VTE Risk Level:: Medical - moderate - high VTE Device Contraindication: Treatment Not Indicated VTE Drug Contraindication: N/A - Med Ordered
[2021-11-25 12:00] VITALS: BP 133/60; PULSE 73; TEMP 36.6; O2SAT 96
[2021-11-25 15:58] VITALS: BP 126/60; PULSE 78; RESP 17; TEMP 36.7; O2SAT 97
[2021-11-25 19:58] VITALS: BP 146/69; PULSE 82; RESP 18; TEMP 36.4; O2SAT 97
[2021-11-25] MEDS: ondansetron HCL 4 MG/2 ML VIAL IVPUSH (20:27)
[2021-11-25] MEDS: cefTRIAXone sodium 1 GM in 0.9 % Sodium Chloride 50 ML IV (20:31)
[2021-11-25] MEDS: Enoxaparin Sodium 40 MG/0.4 ML SYRINGE SUBCUT (20:36)
[2021-11-25] MEDS: DULoxetine HCl 60 MG CAPSULE.DR PO (20:36)
[2021-11-25] MEDS: Cyanocobalamin (Vitamin B-12) 1,000 MCG TABLET 1000 MCG PO (20:43)
[2021-11-25 23:31] VITALS: BP 134/63; PULSE 76; RESP 16; TEMP 37.1; O2SAT 96
[2021-11-26] VITALS (7 sets, daily range): BP systolic 136–164; BP diastolic 65–82; PULSE 58–91; RESP 17–20; TEMP 36.4–36.9; O2SAT 95–98
[2021-11-26] MEDS: diphenhydrAMINE HCL 25 MG TABLET PO (01:29)
[2021-11-26] MEDS: metroNIDAZOLE/NS 500 MG/100 ML PIGGYBACK 100 MG IV ×3 (02:21→17:41)
[2021-11-26 07:06] LABS: Hematocrit 29.6 % (37.0-47.0); Hemoglobin 9.2 g/dl (12.0-16.0); Mean Corpuscular HGB Conc 31.1 g/dl (31.0-35.0); Mean Corpuscular Hemoglobin 27.5 pg (27.0-33.0); Mean Corpuscular Volume 88.4 fL (80.0-98.0); Mean Platelet Volume 10.3 fL (9.4-12.3); NRBC Pct Auto 0.9 /100WBC (0.0-0.2); Platelet Count 132 X10*3/uL (160-400); Red Blood Count 3.35 X10*6/uL (4.20-5.50); Red Cell Distribution Width 17.3 % (11.0-16.0)
[2021-11-26 07:30] LABS: WBC ABN SCTR FOR CBC 1
[2021-11-26 08:03] LABS: Band Neutrophils Percent 30 % (3-5); Lymphocytes Percent Manual 2 % (20-40); Metamyelocytes Percent 2 %; Monocytes Percent Manual 6 % (2-11); Neutrophils Percent Manual 59 % (45-73); Nucleated Red Blood Cells 1 /100WBC (0-0); Promyelocytes Percent 1 %
[2021-11-26 08:07] LABS: Acanthocytes 1+ (0-2) /OIF; Macrocytosis 1+ (5-14) /OIF; Microcytosis 1+ (5-14) /OIF; Ovalocytes 1+ (5-14) /OIF; Platelet Estimate SLIGHTLY INCREASED (NORMAL); Platelet Morphology Comment NORMAL; RBC Morphology NOTED; Target Cells 1+ (5-14) /OIF
[2021-11-26 08:08] LABS: Dohle Bodies PRESENT; Polychromasia 1+ (0-2) /OIF; Tear Drop Cells 1+ (0-2) /OIF
[2021-11-26 08:09] LABS: Toxic Granulation PRESENT
[2021-11-26 08:10] LABS: Alanine Aminotransferase 31 U/L (0-31); Albumin Level 3.2 g/dL (3.5-5.0); Anion Gap 18 (12-20); Aspartate Amino Transferase 49 U/L (5-31); Bilirubin Total 0.3 mg/dL (0.0-1.0); Blood Urea Nitrogen 11 mg/dL (9-16); Calcium 7.4 mg/dL (8.4-10.2); Carbon Dioxide 17 mmol/L (22-29); Chloride 109 mmol/L (96-108); Creatinine Clr Calc Pharmacy 85.8; Estimated Glomerular Filt Rate > 60; Glucose Fasting 156 mg/dL (60-99); Lymphocytes Absolute Manual 0.5 X10*3/uL (1.2-4.9); Metamyelocytes Absolute 0.5 X10*3/uL; Monocytes Absolute Manual 1.4 X10*3/uL (0.1-1.2); Neutrophils Absolute Manual 21.1 X10*3/uL (2.0-8.3); Potassium 4.1 mmol/L (3.3-5.1); Promyelocytes Absolute 0.2 X10*3/uL; Sodium 140 mmol/L (135-145); Total Protein 5.4 g/dL (6.5-8.0); White Blood Count 23.7 X10*3/uL (4.8-10.8)
[2021-11-26 08:34] LABS: Alkaline Phosphatase 218 U/L (39-117)
[2021-11-26] MEDS: Metoprolol Succinate ER 50 MG TAB.ER.24H PO (09:11)
[2021-11-26] MEDS: calcitrioL 0.25 MCG CAPSULE PO (09:11)
[2021-11-26] MEDS: predniSONE 10 MG TABLET 30 MG PO ×2 (09:11→22:07)
[2021-11-26] MEDS: Cholecalciferol (Vitamin D3) 25 MCG TABLET PO (09:12)
[2021-11-26] MEDS: Metoprolol Tartrate 25 MG TABLET PO ×2 (09:12→22:07)
[2021-11-26] MEDS: Calcium + Vitamin D 250 MG TABLET 500 MG PO (09:13)
[2021-11-26] MEDS: 0.9 % Sodium Chloride Flush 3 ML SYRINGE IVFLUSH ×2 (09:14→16:40)
[2021-11-26] MEDS: Nystatin Oral Susp 500,000 UNIT/5 ML ORAL.SUSP 400000 UNIT PO ×4 (10:11→22:29)
--- NOTE | 2021-11-26 12:39 | PM.GIPN ---
Subjective Subjective Date of Service: 11/26/21 Interval History: White count remains up. ALANNAH better. Stool panel and C diff negative. Pt reports improvement in abd pain. Frequency of BMs better but cont to be same consistency of watery diarrhea. Was given regular diet this morning for breakfast. Critical Care Time (minutes): 0 Physical Exam Vital Signs: Vital Signs: Last Vital Signs Temp 98.1 F 11/26/21 11:36 Pulse 78 11/26/21 11:36 Resp 18 11/26/21 11:36 BP 136/65 11/26/21 11:36 Pulse Ox 98 11/26/21 11:36 O2 Del Method 11/26/21 11:36 BMI result Body Mass Index 37.5 gen appear: NAD Abd: soft, nontender, nondistended Objective Data Labs CBC & Chem 7: 11/26/21 06:25 11/26/21 06:25 Labs: Laboratory Results - last 24 hr 11/26/21 11/26/21 06:25 06:25 WBC 23.7 H RBC 3.35 L Hgb 9.2 L Hct 29.6 L MCV 88.4 MCH 27.5 MCHC 31.1 RDW 17.3 H Plt Count 132 L MPV 10.3 Immature Gran % (Auto) Cancelled Neut % (Auto) Cancelled Lymph % (Auto) Cancelled [place] % (Auto) Cancelled Eos % (Auto) Cancelled Baso % (Auto) Cancelled Lymph # (Auto) Cancelled [place] # (Auto) Cancelled Eos # (Auto) Cancelled Baso # (Auto) Cancelled Abs Immat Gran (auto) Cancelled Absolute Neuts (auto) Cancelled Absolute Nucleated RBC 0.210 H Nucleated RBC % (auto) 0.9 H Neutrophils % (Manual) 59 Band Neutrophils % 30 H Lymphocytes % (Manual) 2 L Monocytes % (Manual) 6 Metamyelocytes % 2 Promyelocytes % 1 Abs Neuts (Manual) 21.1 H Lymphocytes # (Manual) 0.5 L Monocytes # (Manual) 1.4 H Metamyelocytes # 0.5 Promyelocytes # 0.2 Nucleated RBCs 1 H Toxic Granulation PRESENT Dohle Bodies PRESENT Platelet Estimate SLIGHTLY INCREASED Plt Morphology Comment NORMAL RBC Morphology NOTED Polychromasia 1+ (0-2) Microcytosis 1+ (5-14) Macrocytosis 1+ (5-14) Target Cells 1+ (5-14) Tear Drop Cells 1+ (0-2) Ovalocytes 1+ (5-14) Acanthocytes (Spur) 1+ (0-2) Sodium 140 Potassium 4.1 Chloride 109 H Carbon Dioxide 17 L Anion Gap 18 BUN 11 Creatinine 0.73 Estim Creat Clear Calc 85.8 Estimated GFR > 60 Fasting Glucose 156 H Calcium 7.4 L Total Bilirubin 0.3 AST 49 H ALT 31 Alkaline Phosphatase 218 H D Total Protein 5.4 L Albumin 3.2 L Procedures Date of Service Date of Service: 11/26/21 Progress Note: A&P Assessment and plan (1) Diarrhea: Status: Acute (2) Colitis: Status: Acute (3) Acute kidney injury: Status: Acute (4) Immunosuppressed status: Status: Acute Plan - Clear liquids today. NPO after MN - Golytely ordered - May need optimization of IVF to catch up to fluid losses to prevent worsening of ALANNAH Time Spent With Patient Time: Total time spent is greater than 50% in coordination of care (as documented) at patient's floor/unit and/or counseling patient: Quality Stroke Does the patient have a stroke diagnosis?: No VTE Prior VTE?: No VTE Risk Level:: Medical - moderate - high VTE Device Contraindication: Treatment Not Indicated VTE Drug Contraindication: N/A - Med Ordered
--- NOTE | 2021-11-26 14:45 | HO.PM.IMPN ---
Subjective Subjective Date of Service: 11/26/21 Interval History: Tolerating diet. Abdominal pain and diarrhea improved Review of Systems Denies chest pain Denies shortness of breath Denies fever chills Admits to diarrhea and mild nausea Physical Exam Vital Signs: Vital Signs: Last Vital Signs Temp 98.1 F 11/26/21 11:36 Pulse 78 11/26/21 11:36 Resp 18 11/26/21 11:36 BP 136/65 11/26/21 11:36 Pulse Ox 98 11/26/21 11:36 O2 Del Method 11/26/21 11:36 BMI result Body Mass Index 37.5 Const: Other: No acute distress Resp: Other: Clear to auscultation bilaterally no rales rhonchi wheezes Cardio: Other: No S4; positive S1-S2; no S3 murmurs rubs or gallops GI: Other: Soft nontender nondistended normoactive bowel sounds Extrem: Other: No edema bilaterally Objective Data Active Medications Acetaminophen (Acetaminophen 325 Mg Tablet) 650 mg PO Q6H PRN PRN Reason: Pain, Mild (Pain Scale 1-3) Calcitriol (Calcitriol 0.25 Mcg Capsule) 0.25 mcg PO DAILY [facility] Last Admin: 11/26/21 09:11 Dose: 0.25 mcg Documented By: VANESSA Calcium Carbonate/Cholecalciferol (Calcium + Vitamin D 250 Mg Tablet) 500 mg PO DAILY [facility] Last Admin: 11/26/21 09:13 Dose: 500 mg Documented By: VANESSA Cyanocobalamin (Cyanocobalamin (Vitamin B-12) 1,000 Mcg Tablet) 1,000 mcg PO BEDTIME [facility] Last Admin: 11/25/21 20:43 Dose: 1,000 mcg Documented By: RICHARD Diphenhydramine HCl (Diphenhydramine Hcl 25 Mg Tablet) 25 mg PO TID PRN PRN Reason: itching Last Admin: 11/26/21 01:29 Dose: 25 mg Documented By: RICHARD Duloxetine HCl (Duloxetine Hcl 60 Mg Capsule.Dr) 60 mg PO BEDTIME [facility] Last Admin: 11/25/21 20:36 Dose: 60 mg Documented By: RICHARD Enoxaparin Sodium (Enoxaparin Sodium 40 Mg/0.4 Ml Syringe) 40 mg SUBCUT Q24H [facility] Last Admin: 11/25/21 20:36 Dose: 40 mg Documented By: RICHARD Ceftriaxone Sodium 1 gm/ (Sodium Chloride) 50 mls @ 100 mls/hr IV BEDTIME [facility] Last Infusion: 11/25/21 23:20 Dose: 0 mls/hr Documented By: RICHARD Metronidazole (Flagyl) 500 mg in 100 mls @ 100 mls/hr IV Q8H [facility] Last Infusion: 11/26/21 10:36 Dose: 0 mls/hr Documented By: VANESSA Metoprolol Succinate (Metoprolol Succinate Er 50 Mg Tab.Er.24h) 50 mg PO DAILY [facility]; Protocol Last Admin: 11/26/21 09:11 Dose: 50 mg Documented By: VANESSA Metoprolol Tartrate (Metoprolol Tartrate 25 Mg Tablet) 25 mg PO BID [facility]; Protocol Last Admin: 11/26/21 09:12 Dose: 25 mg Documented By: VANESSA Nystatin (Nystatin Oral Susp 500,000 Unit/5 Ml Oral.Susp) 400,000 unit PO QID [facility]; Protocol Last Admin: 11/26/21 13:19 Dose: 400,000 unit Documented By: VANESSA Ondansetron HCl (Ondansetron Hcl 4 Mg/2 Ml Vial) 4 mg IVPUSH Q8H PRN PRN Reason: Nausea and Vomiting Last Admin: 11/25/21 20:27 Dose: 4 mg Documented By: RICHARD Pharmacy Consult (Consult Rx Perform Med Rec) 1 each MISCELLANE ONCE PRN PRN Reason: Consult order Polyethylene Glycol/Electrolytes (Peg 3350/Na Sulf,Bicarb,Cl/Kcl 4,000 Ml Soln.Recon) 4,000 ml PO ONCE ONE Stop: 11/26/21 18:01 Prednisone (Prednisone 10 Mg Tablet) 30 mg PO BID [facility] Last Admin: 11/26/21 09:11 Dose: 30 mg Documented By: VANESSA Sodium Chloride (0.9 % Sodium Chloride Flush 3 Ml Syringe) 3 ml IVFLUSH QSHIFT [facility] Last Admin: 11/26/21 09:14 Dose: 3 ml Documented By: VANESSA Vitamin D (Cholecalciferol (Vitamin D3) 25 Mcg Tablet) 25 mcg PO DAILY [facility] Last Admin: 11/26/21 09:12 Dose: 25 mcg Documented By: VANESSA Labs CBC & Chem 7: 11/26/21 06:25 11/26/21 06:25 Labs: Laboratory Results - last 24 hr 11/26/21 11/26/21 06:25 06:25 MCV 88.4 MCH 27.5 MCHC 31.1 RDW 17.3 H Plt Count 132 L MPV 10.3 Immature Gran % (Auto) Cancelled Neut % (Auto) Cancelled Lymph % (Auto) Cancelled [place] % (Auto) Cancelled Eos % (Auto) Cancelled Baso % (Auto) Cancelled Lymph # (Auto) Cancelled [place] # (Auto) Cancelled Eos # (Auto) Cancelled Baso # (Auto) Cancelled Abs Immat Gran (auto) Cancelled Absolute Neuts (auto) Cancelled Absolute Nucleated RBC 0.210 H Nucleated RBC % (auto) 0.9 H Neutrophils % (Manual) 59 Band Neutrophils % 30 H Lymphocytes % (Manual) 2 L Monocytes % (Manual) 6 Metamyelocytes % 2 Promyelocytes % 1 Abs Neuts (Manual) 21.1 H Lymphocytes # (Manual) 0.5 L Monocytes # (Manual) 1.4 H Metamyelocytes # 0.5 Promyelocytes # 0.2 Nucleated RBCs 1 H Toxic Granulation PRESENT Dohle Bodies PRESENT Platelet Estimate SLIGHTLY INCREASED Plt Morphology Comment NORMAL RBC Morphology NOTED Polychromasia 1+ (0-2) Microcytosis 1+ (5-14) Macrocytosis 1+ (5-14) Target Cells 1+ (5-14) Tear Drop Cells 1+ (0-2) Ovalocytes 1+ (5-14) Acanthocytes (Spur) 1+ (0-2) Anion Gap 18 Estim Creat Clear Calc 85.8 Estimated GFR > 60 Fasting Glucose 156 H Calcium 7.4 L Total Bilirubin 0.3 AST 49 H ALT 31 Alkaline Phosphatase 218 H D Total Protein 5.4 L Albumin 3.2 L Assessment and Plan (1) Nonsustained supraventricular tachycardia: Status: Acute (2) Dehydration: Status: Acute (3) Colitis: Status: Acute Plan 66 year old female with history of dermatomyositis on prednisone taper, anxiety, insomnia, depression, 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 1.Nonsustained PSVT -one episode overnight -Continue telemetry -Continue metoprolol 25mg BID -outpatient workup 2.Dehydration secondary to diarrhea -Continue IVF -Follow BMP 3-Acute diarrhea- infectious vs chemotherapy side effect -CDiff negative -Advance diet as tolerated -colon 11/27 4-Oral candidiasis secondary to prolonged steroid use -Nystatin swish and swallow [id number] -Continue metoprolol as above -Hold home meds 6-Depression/anxiety -Continue duloxetine. Hold clonidine DVT prophylaxis- lovenox Full code Requires ongoing hospitalization for IV volume repletion secondary to diarrhea Quality Stroke Does the patient have a stroke diagnosis?: No VTE Prior VTE?: No VTE Risk Level:: Medical - moderate - high VTE Device Contraindication: Treatment Not Indicated VTE Drug Contraindication: N/A - Med Ordered
[2021-11-26] MEDS: PEG 3350/Na Sulf,Bicarb,Cl/KCL 4,000 ML SOLN.RECON 4000 ML PO (17:40)
[2021-11-26] MEDS: cefTRIAXone sodium 1 GM in 0.9 % Sodium Chloride 50 ML IV (22:06)
[2021-11-26] MEDS: Cyanocobalamin (Vitamin B-12) 1,000 MCG TABLET 1000 MCG PO (22:07)
[2021-11-26] MEDS: DULoxetine HCl 60 MG CAPSULE.DR PO (22:07)
[2021-11-26] MEDS: Enoxaparin Sodium 40 MG/0.4 ML SYRINGE SUBCUT (22:07)
[2021-11-27] VITALS (7 sets, daily range): BP systolic 133–160; BP diastolic 68–81; PULSE 59–67; RESP 16–20; TEMP 36.2–36.9; O2SAT 95–100
[2021-11-27] MEDS: 0.9 % Sodium Chloride Flush 3 ML SYRINGE IVFLUSH ×2 (00:03→09:46)
[2021-11-27] MEDS: metroNIDAZOLE/NS 500 MG/100 ML PIGGYBACK 100 MG IV ×2 (02:20→10:07)
[2021-11-27 06:57] LABS: Hematocrit 30.8 % (37.0-47.0); Hemoglobin 9.5 g/dl (12.0-16.0); Mean Corpuscular HGB Conc 30.8 g/dl (31.0-35.0); Mean Corpuscular Hemoglobin 27.2 pg (27.0-33.0); Mean Corpuscular Volume 88.3 fL (80.0-98.0); Mean Platelet Volume 10.2 fL (9.4-12.3); NRBC Pct Auto 0.8 /100WBC (0.0-0.2); Platelet Count 125 X10*3/uL (160-400); Red Blood Count 3.49 X10*6/uL (4.20-5.50)
[2021-11-27 07:00] LABS: WBC ABN SCTR FOR CBC 1
[2021-11-27 07:35] LABS: Band Neutrophils Percent 17 % (3-5); Lymphocytes Percent Manual 4 % (20-40); Metamyelocytes Percent 4 %; Monocytes Percent Manual 4 % (2-11); Neutrophils Percent Manual 71 % (45-73)
[2021-11-27 07:37] LABS: Hypochromasia 1+ (5-14) /OIF; Ovalocytes 1+ (5-14) /OIF; Polychromasia 1+ (0-2) /OIF; RBC Morphology NOTED; Tear Drop Cells 1+ (0-2) /OIF; Toxic Granulation PRESENT
[2021-11-27 07:38] LABS: Platelet Estimate SLIGHTLY DECREASED (NORMAL); Platelet Morphology Comment NORMAL
[2021-11-27 07:40] LABS: Dohle Bodies PRESENT; Neutrophils Absolute Manual 21.4 X10*3/uL (2.0-8.3); White Blood Count 24.3 X10*3/uL (4.8-10.8)
[2021-11-27 07:57] LABS: Alanine Aminotransferase 32 U/L (0-31); Albumin Level 3.4 g/dL (3.5-5.0); Alkaline Phosphatase 135 U/L (39-117); Anion Gap 15 (12-20); Aspartate Amino Transferase 30 U/L (5-31); Bilirubin Total 0.4 mg/dL (0.0-1.0); Blood Urea Nitrogen 10 mg/dL (9-16); Calcium 7.5 mg/dL (8.4-10.2); Carbon Dioxide 20 mmol/L (22-29); Chloride 109 mmol/L (96-108); Creatinine Clr Calc Pharmacy 92.1; Estimated Glomerular Filt Rate > 60; Glucose Fasting 138 mg/dL (60-99); Potassium 3.3 mmol/L (3.3-5.1); Sodium 141 mmol/L (135-145); Total Protein 5.2 g/dL (6.5-8.0)
[2021-11-27] MEDS: predniSONE 10 MG TABLET 30 MG PO (09:45)
[2021-11-27] MEDS: Calcium + Vitamin D 250 MG TABLET 500 MG PO (09:45)
[2021-11-27] MEDS: Nystatin Oral Susp 500,000 UNIT/5 ML ORAL.SUSP 400000 UNIT PO ×2 (09:45→14:17)
[2021-11-27] MEDS: Metoprolol Succinate ER 50 MG TAB.ER.24H PO (09:45)
[2021-11-27] MEDS: Metoprolol Tartrate 25 MG TABLET PO (09:45)
[2021-11-27] MEDS: calcitrioL 0.25 MCG CAPSULE PO (09:45)
[2021-11-27] MEDS: Cholecalciferol (Vitamin D3) 25 MCG TABLET PO (09:45)
--- NOTE | 2021-11-27 10:05 | MHC.CM.PN ---
Female 66 PSVT Dehydration. Patient continues with loose stools. NPO for scope today. Cardiac work up out patient. DP Home no services family will provide transportation.
--- NOTE | 2021-11-27 12:16 | P.DS_ITS ---
DS: Providers Provider Date of Service: 11/27/21 Date of admission: 11/23/21 21:44 Date of discharge: 11/27/21 Primary care physician: THA Cast Consults: 11/23/21 22:21 Consult to Cardiology Routine Consulting Provider: Josias Hameed Reason for consultation: nonsustained svt 11/24/21 12:33 Consult to Gastroenterology Stat Consulting Provider: Tere Alonso Reason for consultation: colitis Has provider been notified: Yes DS: Diagnosis Discharge Diagnosis (1) Nonsustained supraventricular tachycardia: Status: Inactive (2) Dehydration: Status: Resolved (3) Colitis: Status: Acute DS: Summary Hospital Course Hospital Course: 66 year old female with history of dermatomyositis on prednisone taper, anxiety, insomnia, depression, 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 She states she has been having copious watery diarrhea for several days without fever, hematochezia, or melena. There is lower abdominal pain. Due to the diarrhea was advised by Dr. Hernández to go to the clinic for IV fluids. While at the clinic became hypotensive which improved with a fluids but patient became tachycardic to 170 and was transferred to the ED. While in the ED she blood pressure improved to 129/61 with HR 101. In the ED patient had episode of SVT at 1943 with associated palpitations which resolved spontaneously. Patient states she has had similar episodes of palpitations, head pressure, chest pressure that lasts for several seconds before resolving but has never had this worked up. WBC elevated at 17.8 currently on high dose prednisone taper for dermatomyositis. Renal function stable. Mild anemia H/H 9.7/31.3%. PLT 147. D-Dimer 335, subsequent cta chest negative for pulmonary emboli. CT scan of the abdomen done for copious diarrhea; diffuse mural thickening especially the sigmoid and descending colon suggestive of inflammatory or infectious colitis. Hospital Course Patient admitted to telemetry; volume repletion with IV normal saline. Was seen in consultation by Cardiology who recommended Toprol 50 mg daily. She continued to have intermittent burst of SVT however over the last 24 hours prior to discharge she had only 1 short burst during which she was .asymptomatic. She was seen in consultation by GI and on 11/27/2021 underwent a colonoscopy. Colonoscopy inconclusive secondary to poor prep. GI recommends follow-up at next recommended interval she will be discharged to follow-up with PCP and GI as scheduled Time Spent with Patient Time attestation: Total time spent providing and/or coordinating discharge services: Discharge coordination time: Greater than 30 minutes Quality: Safe Use of Opioids Does Pt have an Active Cancer Diagnosis on the Problem List?: No Quality: Stroke Does the patient have a stroke diagnosis?: No Physical Exam Vital Signs: Vital Signs: Last Vital Signs Temp 98.5 F 11/27/21 11:00 Pulse 66 11/27/21 11:00 Resp 20 11/27/21 11:00 BP 138/81 11/27/21 11:00 Pulse Ox 97 11/27/21 11:00 O2 Del Method 11/27/21 11:00 BMI result Body Mass Index 37.5 Const: Other: No acute distress Resp: Other: Clear to auscultation bilaterally no rales rhonchi wheezes Cardio: Other: No S4; positive S1-S2; no S3 murmurs rubs or gallops GI: Other: Soft nontender nondistended normoactive bowel sounds Extrem: Other: No edema bilaterally DS: Data Data Completed and Pending Labs on day of discharge: Laboratory Results - last 24 hr 11/27/21 11/27/21 06:30 06:30 WBC 24.3 H RBC 3.49 L Hgb 9.5 L Hct 30.8 L MCV 88.3 MCH 27.2 MCHC 30.8 L RDW 18.0 H Plt Count 125 L MPV 10.2 Immature Gran % (Auto) Cancelled Neut % (Auto) Cancelled Lymph % (Auto) Cancelled [place] % (Auto) Cancelled Eos % (Auto) Cancelled Baso % (Auto) Cancelled Lymph # (Auto) Cancelled [place] # (Auto) Cancelled Eos # (Auto) Cancelled Baso # (Auto) Cancelled Abs Immat Gran (auto) Cancelled Absolute Neuts (auto) Cancelled Absolute Nucleated RBC 0.200 H Nucleated RBC % (auto) 0.8 H Neutrophils % (Manual) 71 Band Neutrophils % 17 H Lymphocytes % (Manual) 4 L Monocytes % (Manual) 4 Metamyelocytes % 4 Abs Neuts (Manual) 21.4 H Lymphocytes # (Manual) 1.0 L Monocytes # (Manual) 1.0 Metamyelocytes # 1.0 Toxic Granulation PRESENT Dohle Bodies PRESENT Platelet Estimate SLIGHTLY DECREASED Plt Morphology Comment NORMAL RBC Morphology NOTED Polychromasia 1+ (0-2) Hypochromasia 1+ (5-14) Tear Drop Cells 1+ (0-2) Ovalocytes 1+ (5-14) Sodium 141 Potassium 3.3 Chloride 109 H Carbon Dioxide 20 L Anion Gap 15 BUN 10 Creatinine 0.68 Estim Creat Clear Calc 92.1 Estimated GFR > 60 Fasting Glucose 138 H Calcium 7.5 L Total Bilirubin 0.4 AST 30 ALT 32 H Alkaline Phosphatase 135 H D Total Protein 5.2 L Albumin 3.4 L Discharge Plan Discharge Anticipated Discharge Date/Time: 01/19/22 15:42 Patient Disposition: Home, Self-Care Discharge Diagnosis: PSVT Referrals: Leslie Washington FNP [Primary Care Provider] - 1 Week Discharge Medications: New metoprolol succinate 50 mg Tablet Extended Release 24 Hr 50 mg PO DAILY Qty: 30 0RF Protocol: Hold for SBP/HR < HOLD for SBP < : 90 HOLD for HR < : 60 Continued cyanocobalamin (vitamin B-12) 1,000 mcg capsule 1,000 mcg PO BEDTIME diphenhydramine HCl [Benadryl] 25 mg capsule 25 mg PO TID PRN (Reason: itching) Qty: 14 0RF cholecalciferol (vitamin D3) 25 mcg (1,000 unit) Tablet 25 mcg PO DAILY ketoconazole 2 % shampoo 1 appl topical 2XW calcium carbonate-vitamin D3 600 mg-10 mcg (400 unit) tablet 1 tab PO DAILY No Action clonidine HCl 0.2 mg tablet 0.2 mg PO BEDTIME Qty: 90 1RF Gammagard S-D (IgA < 1 mcg/mL) 10 gram recon soln 45 g IV DAILY Qty: 1 4RF Rx Instructions: for 2 consecutive days every 30 days lisinopril 20 mg Tablet 20 mg PO DAILY azathioprine [Imuran] 50 mg Tablet 50 mg PO BID hydrochlorothiazide 12.5 mg Tablet 12.5 mg PO DAILY betamethasone dipropionate 0.05 % lotion 1 appl topical BID Rx Instructions: for 2 weeks as needed for scalp digoxin 250 mcg (0.25 mg) Tablet 0.25 mg PO DAILY Qty: 30 0RF valsartan 40 mg Tablet 20 mg PO BID Qty: 30 0RF Protocol: Hold for SBP< HOLD for SBP < : 90 furosemide [Lasix] 20 mg Tablet 20 mg PO DAILY Qty: 30 4RF potassium chloride 20 mEq tablet,ER particles/crystals 20 meq PO DAILY Qty: 2 0RF duloxetine [Cymbalta] 60 mg capsule,delayed release(DR/EC) 60 mg PO BEDTIME alendronate [Fosamax] 70 mg tablet 70 mg PO FR@0600 loperamide 2 mg Capsule 2 mg PO Q4H PRN (Reason: Diarrhea) Qty: 24 0RF hydrocortisone [Proctozone-HC] 2.5 % Cream With Perineal Applicator 1 appl VA BID Qty: 30 0RF ondansetron 8 mg tablet,disintegrating 8 mg PO Q8H PRN (Reason: Nausea) Discharge Orders: Discharge Order (Routine); Ordered 11/27/21 Ordered By: Bhavesh Estrada Diet: Advance to usual diet Activity on Discharge: As tolerated Stand Alone Forms: Patient Portal Discharge page Care Plan Goals: Add metoprolol XR 50 mg once daily to your medical regimen Health Concerns: Continue all previous medicines as before hospitalization Plan of Treatment: Follow-up with GI PCP as scheduled Assessment: See discharge summary Patient Instructions: Metoprolol (By mouth) Discharge Date/Time: 11/27/21 17:32
[2021-11-27] MEDS: Sodium Phosphate,Mono-Dibasic 133 ML ENEMA PR (12:19)
--- NOTE | 2021-11-27 12:38 | HO.ANESPROP2 ---
FORMERLY [facility] Active Problems Active Problems: All Active Problems (Updated 11/26/21 @ 21:56 by Patrick Hernández MD) Immunosuppressed status (Acute) Acute kidney injury (Acute) Dehydration (Acute) Colitis (Acute) Dehydration (Acute) Seborrheic dermatitis (Acute) Vitamin B12 deficiency (Acute) Vitamin D deficiency (Acute) Post-menopausal (Acute) Osteopenia (Acute) Macular degeneration (senile) of retina (Acute) jail current use of immunosuppressive drug (Acute) Low TSH level (Acute) Bilateral lower extremity edema (Acute) Diarrhea (Acute) Nonsustained supraventricular tachycardia (Acute) Invasive ductal carcinoma of right breast (Acute) Dermatomyositis (Acute) Lumbar degenerative disc disease (Acute) Anxiety (Acute) Insomnia (Acute) Major depression, chronic (Acute) Hypertension (Acute) Past Medical History Medical History Anxiety Breast calcification, right Breast cancer, right Colitis Dermatomyositis Encounter to establish care History of COVID-19 Hypertension Insomnia Invasive ductal carcinoma of right breast Lumbar degenerative disc disease Major depression, chronic Pain in both feet Pedal edema Port-A-Cath in place Family History Family History Mother No problems noted. Father Breast cancer Bone cancer Brother Substance use disorder Paternal Aunt Breast cancer Family history of problems with anesthesia: No Surgical History Surgical History History of arthroscopic knee surgery History of section History of cholecystectomy History of fusion of cervical spine History of gastric bypass History of hysterectomy History of tonsillectomy Status post right breast lumpectomy History of Problems with Anesthesia: No Social History Social History Household Members: Family Housing: House Are you a primary care services manager to a significant other at home: No Do you presently have visiting nurse or other home services: No Patient Tobacco Use Status: Former Tobacco user Quit Date: 12 yrs ago Tobacco use type: Cigarette e-Cigarette/Vaping Use: Never Used service: No Current occupational status: unemployed and retired Cognitive needs: Yes (cane) Hearing needs: No Vision needs: Yes (glasses) Meds Allergies Allergy/AdvReac Type Severity Reaction Status Date / Time No Known Allergies Allergy Verified 11/14/21 11:02 Active Medications: Current Medications Acetaminophen (Acetaminophen 325 Mg Tablet) 650 mg PO Q6H PRN PRN Reason: Pain, Mild (Pain Scale 1-3) Calcitriol (Calcitriol 0.25 Mcg Capsule) 0.25 mcg PO DAILY [facility] Last Admin: 11/27/21 09:45 Dose: 0.25 mcg Calcium Carbonate/Cholecalciferol (Calcium + Vitamin D 250 Mg Tablet) 500 mg PO DAILY [facility] Last Admin: 11/27/21 09:45 Dose: 500 mg Cyanocobalamin (Cyanocobalamin (Vitamin B-12) 1,000 Mcg Tablet) 1,000 mcg PO BEDTIME [facility] Last Admin: 11/26/21 22:07 Dose: 1,000 mcg Diphenhydramine HCl (Diphenhydramine Hcl 25 Mg Tablet) 25 mg PO TID PRN PRN Reason: itching Last Admin: 11/26/21 01:29 Dose: 25 mg Duloxetine HCl (Duloxetine Hcl 60 Mg Capsule.Dr) 60 mg PO BEDTIME [facility] Last Admin: 11/26/21 22:07 Dose: 60 mg Enoxaparin Sodium (Enoxaparin Sodium 40 Mg/0.4 Ml Syringe) 40 mg SUBCUT Q24H [facility] Last Admin: 11/26/21 22:07 Dose: 40 mg Ceftriaxone Sodium 1 gm/ (Sodium Chloride) 50 mls @ 100 mls/hr IV BEDTIME [facility] Last Infusion: 11/26/21 22:52 Dose: Infused Metronidazole (Flagyl) 500 mg in 100 mls @ 100 mls/hr IV Q8H [facility] Last Infusion: 11/27/21 11:13 Dose: Infused Metoprolol Succinate (Metoprolol Succinate Er 50 Mg Tab.Er.24h) 50 mg PO DAILY [facility]; Protocol Last Admin: 11/27/21 09:45 Dose: 50 mg Metoprolol Tartrate (Metoprolol Tartrate 25 Mg Tablet) 25 mg PO BID [facility]; Protocol Last Admin: 11/27/21 09:45 Dose: 25 mg Nystatin (Nystatin Oral Susp 500,000 Unit/5 Ml Oral.Susp) 400,000 unit PO QID [facility]; Protocol Last Admin: 11/27/21 09:45 Dose: 400,000 unit Ondansetron HCl (Ondansetron Hcl 4 Mg/2 Ml Vial) 4 mg IVPUSH Q8H PRN PRN Reason: Nausea and Vomiting Last Admin: 11/25/21 20:27 Dose: 4 mg Pharmacy Consult (Consult Rx Perform Med Rec) 1 each MISCELLANE ONCE PRN PRN Reason: Consult order Prednisone (Prednisone 10 Mg Tablet) 30 mg PO BID [facility] Last Admin: 11/27/21 09:45 Dose: 30 mg Sodium Chloride (0.9 % Sodium Chloride Flush 3 Ml Syringe) 3 ml IVFLUSH QSHIFT [facility] Last Admin: 11/27/21 09:46 Dose: 3 ml Vitamin D (Cholecalciferol (Vitamin D3) 25 Mcg Tablet) 25 mcg PO DAILY [facility] Last Admin: 11/27/21 09:45 Dose: 25 mcg Home Medications Medication Instructions Recorded Confirmed Last Taken Type ketoconazole 2 % shampoo 1 appl topical 2XW 09/28/21 11/23/21 Unknown History cyanocobalamin (vitamin B-12) 1,000 mcg PO BEDTIME 10/12/21 11/23/21 Unknown History 1,000 mcg capsule duloxetine 60 mg capsule,delayed 60 mg PO BEDTIME 10/12/21 11/23/21 Unknown History release lutein 40 mg capsule 40 mg PO DAILY 10/30/21 11/23/21 Unknown History calcium carbonate 600 mg-vitamin 1 tab PO DAILY 10/31/21 11/23/21 Unknown History D3 10 mcg (400 unit) tablet prednisone 10 mg tablet 60 mg PO QAM 11/08/21 11/23/21 Unknown History alendronate 70 mg tablet 70 mg PO FR 11/23/21 11/23/21 Unknown History betamethasone dipropionate 0.05 % 1 appl topical BID PRN psorias 11/23/21 11/23/21 Unknown History lotion flare up cholecalciferol (vitamin D3) 25 25 mcg PO DAILY 11/23/21 11/23/21 Unknown History mcg (1,000 unit) tablet Exam Exam Date and Time: November 27, 2021 1238 Height,Weight and Vital Signs: Height 5 ft 3 in Weight 96 kg Last Vital Signs Temp 97.6 F 11/27/21 12:35 Pulse 67 11/27/21 12:35 Resp 16 11/27/21 12:35 BP 153/75 H 11/27/21 12:35 Pulse Ox 97 11/27/21 12:35 O2 Del Method 11/27/21 12:35 Pertinent Lab Results Pertinent Lab Results: Laboratory Tests 11/23/21 11/23/21 11/23/21 15:45 15:45 15:45 WBC 17.8 H RBC 3.60 L Hgb 9.7 L Hct 31.3 L MCV 86.9 MCH 26.9 L MCHC 31.0 RDW 16.2 H Plt Count 147 L MPV 10.6 Immature Gran % (Auto) Cancelled Neut % (Auto) Cancelled Lymph % (Auto) Cancelled [place] % (Auto) Cancelled Eos % (Auto) Cancelled Baso % (Auto) Cancelled Lymph # (Auto) Cancelled [place] # (Auto) Cancelled Eos # (Auto) Cancelled Baso # (Auto) Cancelled Abs Immat Gran (auto) Cancelled Absolute Neuts (auto) Cancelled Absolute Nucleated RBC 0.040 H Nucleated RBC % (auto) 0.2 Neutrophils % (Manual) 57 Band Neutrophils % 22 H Lymphocytes % (Manual) 5 L Monocytes % (Manual) 3 Metamyelocytes % 7 Myelocytes % 6 Promyelocytes % Abs Neuts (Manual) 14.1 H Lymphocytes # (Manual) 0.9 L Monocytes # (Manual) 0.5 Metamyelocytes # 1.2 Myelocytes # 1.1 Promyelocytes # Nucleated RBCs 1 H Toxic Granulation Dohle Bodies PRESENT Platelet Estimate SLIGHTLY DECREASED Plt Morphology Comment NORM RBC Morphology NOTED Polychromasia 1+ (0-2) Hypochromasia Microcytosis 1+ (5-14) Macrocytosis Target Cells Tear Drop Cells 1+ (0-2) Ovalocytes 1+ (5-14) Acanthocytes (Spur) PT 10.5 INR 0.9 D-Dimer High Sensitivty 355 Sodium 138 Potassium 3.8 Chloride 104 Carbon Dioxide 21 L Anion Gap 17 BUN 12 Creatinine 0.73 Estim Creat Clear Calc 84.8 Estimated GFR > 60 Random Glucose 191 H Fasting Glucose Calcium 7.8 L Magnesium 1.7 Total Bilirubin 0.4 Direct Bilirubin 0.2 AST 33 H D ALT 29 Alkaline Phosphatase 78 Troponin I High Sens B-Natriuretic Peptide Total Protein 5.2 L Albumin 3.4 L Urine Color Urine Appearance Urine pH Ur Specific [place] Urine Protein Urine Glucose (UA) Urine Ketones Urine Blood Urine Nitrite Ur Leukocyte Esterase Stl C. cayetanensis PCR Stool Rotavirus A PCR Stl Adenov F 40/41 PCR Stool Astrovirus (PCR) Stool Campylobacter PCR Stool Cryptosporidium PCR Stl Sh Tox Pr E STEC PCR Stool E coli O157 PCR Stl Enterotoxigenic E PCR Stool EPEC (PCR) Stool EAEC (PCR) Stl E. histolytica PCR Stool Giardia Lamblia PCR Stl P. shigelloides PCR Stool Salmonella PCR Stool Sapovirus (PCR) Stl Shigella/EIEC PCR St Y.enterocolitica PCR Stool Vibrio (PCR) Stl Vibrio cholerae PCR Stl Norovirus GI/GII PCR C. difficile Tox B Gene COVID-19 (J[facility]) COVID-19 Clin Com 11/23/21 11/23/21 11/23/21 15:45 15:50 22:07 WBC RBC Hgb Hct MCV MCH MCHC RDW Plt Count MPV Immature Gran % (Auto) Neut % (Auto) Lymph % (Auto) [place] % (Auto) Eos % (Auto) Baso % (Auto) Lymph # (Auto) [place] # (Auto) Eos # (Auto) Baso # (Auto) Abs Immat Gran (auto) Absolute Neuts (auto) Absolute Nucleated RBC Nucleated RBC % (auto) Neutrophils % (Manual) Band Neutrophils % Lymphocytes % (Manual) Monocytes % (Manual) Metamyelocytes % Myelocytes % Promyelocytes % Abs Neuts (Manual) Lymphocytes # (Manual) Monocytes # (Manual) Metamyelocytes # Myelocytes # Promyelocytes # Nucleated RBCs Toxic Granulation Dohle Bodies Platelet Estimate Plt Morphology Comment RBC Morphology Polychromasia Hypochromasia Microcytosis Macrocytosis Target Cells Tear Drop Cells Ovalocytes Acanthocytes (Spur) PT INR D-Dimer High Sensitivty Sodium Potassium Chloride Carbon Dioxide Anion Gap BUN Creatinine Estim Creat Clear Calc Estimated GFR Random Glucose Fasting Glucose Calcium Magnesium Total Bilirubin Direct Bilirubin AST ALT Alkaline Phosphatase Troponin I High Sens 8.6 B-Natriuretic Peptide 14 Total Protein Albumin Urine Color Urine Appearance Urine pH Ur Specific [place] Urine Protein Urine Glucose (UA) Urine Ketones Urine Blood Urine Nitrite Ur Leukocyte Esterase Stl C. cayetanensis PCR Stool Rotavirus A PCR Stl Adenov F 40/41 PCR Stool Astrovirus (PCR) Stool Campylobacter PCR Stool Cryptosporidium PCR Stl Sh Tox Pr E STEC PCR Stool E coli O157 PCR Stl Enterotoxigenic E PCR Stool EPEC (PCR) Stool EAEC (PCR) Stl E. histolytica PCR Stool Giardia Lamblia PCR Stl P. shigelloides PCR Stool Salmonella PCR Stool Sapovirus (PCR) Stl Shigella/EIEC PCR St Y.enterocolitica PCR Stool Vibrio (PCR) Stl Vibrio cholerae PCR Stl Norovirus GI/GII PCR C. difficile Tox B Gene NEGATIVE COVID-19 (JEN) Negative COVID-19 Clin Com See Note 11/23/21 11/24/21 11/24/21 22:09 02:13 06:32 WBC 25.0 H RBC 3.40 L Hgb 9.4 L Hct 29.7 L MCV 87.4 MCH 27.6 MCHC 31.6 RDW 16.3 H Plt Count 136 L MPV 10.4 Immature Gran % (Auto) Cancelled Neut % (Auto) Cancelled Lymph % (Auto) Cancelled [place] % (Auto) Cancelled Eos % (Auto) Cancelled Baso % (Auto) Cancelled Lymph # (Auto) Cancelled [place] # (Auto) Cancelled Eos # (Auto) Cancelled Baso # (Auto) Cancelled Abs Immat Gran (auto) Cancelled Absolute Neuts (auto) Cancelled Absolute Nucleated RBC 0.080 H Nucleated RBC % (auto) 0.3 H Neutrophils % (Manual) 64 Band Neutrophils % 17 H Lymphocytes % (Manual) 4 L Monocytes % (Manual) 3 Metamyelocytes % 7 Myelocytes % 2 Promyelocytes % 3 Abs Neuts (Manual) 20.3 H Lymphocytes # (Manual) 1.0 L Monocytes # (Manual) 0.8 Metamyelocytes # 1.8 Myelocytes # 0.5 Promyelocytes # 0.8 Nucleated RBCs Toxic Granulation PRESENT Dohle Bodies PRESENT Platelet Estimate SLIGHTLY DECREASED Plt Morphology Comment NORM RBC Morphology NOTED Polychromasia 1+ (0-2) Hypochromasia 1+ (5-14) Microcytosis 1+ (5-14) Macrocytosis Target Cells Tear Drop Cells Ovalocytes 1+ (5-14) Acanthocytes (Spur) PT INR D-Dimer High Sensitivty Sodium Potassium Chloride Carbon Dioxide Anion Gap BUN Creatinine Estim Creat Clear Calc Estimated GFR Random Glucose Fasting Glucose Calcium Magnesium Total Bilirubin Direct Bilirubin AST ALT Alkaline Phosphatase Troponin I High Sens B-Natriuretic Peptide Total Protein Albumin Urine Color Yellow Urine Appearance Clear Urine pH 5.5 Ur Specific [place] >= 1.030 H Urine Protein Trace Urine Glucose (UA) Negative Urine Ketones Negative Urine Blood Negative Urine Nitrite Negative Ur Leukocyte Esterase Negative Stl C. cayetanensis PCR Not Detected Stool Rotavirus A PCR Not Detected Stl Adenov F 40/41 PCR Not Detected Stool Astrovirus (PCR) Not Detected Stool Campylobacter PCR Not Detected Stool Cryptosporidium PCR Not Detected Stl Sh Tox Pr E STEC PCR Not Detected Stool E coli O157 PCR Not applicable Stl Enterotoxigenic E PCR Not Detected Stool EPEC (PCR) Not Detected Stool EAEC (PCR) Not Detected Stl E. histolytica PCR Not Detected Stool Giardia Lamblia PCR Not Detected Stl P. shigelloides PCR Not Detected Stool Salmonella PCR Not Detected Stool Sapovirus (PCR) Not Detected Stl Shigella/EIEC PCR Not Detected St Y.enterocolitica PCR Not Detected Stool Vibrio (PCR) Not Detected Stl Vibrio cholerae PCR Not Detected Stl Norovirus GI/GII PCR Not Detected C. difficile Tox B Gene COVID-19 (JEN) COVID-19 Clin [facility] 11/24/21 11/25/21 11/25/21 06:32 06:14 06:14 WBC 26.9 H RBC 3.49 L Hgb 9.5 L Hct 30.7 L MCV 88.0 MCH 27.2 MCHC 30.9 L RDW 16.7 H Plt Count 136 L MPV 10.2 Immature Gran % (Auto) Cancelled Neut % (Auto) Cancelled Lymph % (Auto) Cancelled [place] % (Auto) Cancelled Eos % (Auto) Cancelled Baso % (Auto) Cancelled Lymph # (Auto) Cancelled [place] # (Auto) Cancelled Eos # (Auto) Cancelled Baso # (Auto) Cancelled Abs Immat Gran (auto) Cancelled Absolute Neuts (auto) Cancelled Absolute Nucleated RBC 0.140 H Nucleated RBC % (auto) 0.5 H Neutrophils % (Manual) 65 Band Neutrophils % 19 H Lymphocytes % (Manual) 4 L Monocytes % (Manual) 6 Metamyelocytes % 2 Myelocytes % 2 Promyelocytes % 2 Abs Neuts (Manual) 22.6 H Lymphocytes # (Manual) 1.1 L Monocytes # (Manual) 1.6 H Metamyelocytes # 0.5 Myelocytes # 0.5 Promyelocytes # 0.5 Nucleated RBCs Toxic Granulation PRESENT Dohle Bodies PRESENT Platelet Estimate SLIGHTLY DECREASED Plt Morphology Comment NORMAL RBC Morphology NOTED Polychromasia 2+ (3-5) Hypochromasia 1+ (5-14) Microcytosis 1+ (5-14) Macrocytosis Target Cells Tear Drop Cells 1+ (0-2) Ovalocytes 1+ (5-14) Acanthocytes (Spur) PT INR D-Dimer High Sensitivty Sodium 142 143 Potassium 3.5 4.5 D Chloride 110 H 112 H Carbon Dioxide 21 L 18 L Anion Gap 15 18 BUN 9 10 Creatinine 0.65 0.66 Estim Creat Clear Calc 95.3 94.9 Estimated GFR > 60 > 60 Random Glucose 88 Fasting Glucose 129 H Calcium 7.7 L 7.3 L Magnesium Total Bilirubin 0.3 Direct Bilirubin AST 37 H ALT 32 H Alkaline Phosphatase 143 H D Troponin I High Sens B-Natriuretic Peptide Total Protein 5.0 L Albumin 3.2 L Urine Color Urine Appearance Urine pH Ur Specific [place] Urine Protein Urine Glucose (UA) Urine Ketones Urine Blood Urine Nitrite Ur Leukocyte Esterase Stl C. cayetanensis PCR Stool Rotavirus A PCR Stl Adenov F 40/41 PCR Stool Astrovirus (PCR) Stool Campylobacter PCR Stool Cryptosporidium PCR Stl Sh Tox Pr E STEC PCR Stool E coli O157 PCR Stl Enterotoxigenic E PCR Stool EPEC (PCR) Stool EAEC (PCR) Stl E. histolytica PCR Stool Giardia Lamblia PCR Stl P. shigelloides PCR Stool Salmonella PCR Stool Sapovirus (PCR) Stl Shigella/EIEC PCR St Y.enterocolitica PCR Stool Vibrio (PCR) Stl Vibrio cholerae PCR Stl Norovirus GI/GII PCR C. difficile Tox B Gene COVID-19 (JEN) COVID-19 Clin Com 11/26/21 11/26/21 11/27/21 06:25 06:25 06:30 WBC 23.7 H 24.3 H RBC 3.35 L 3.49 L Hgb 9.2 L 9.5 L Hct 29.6 L 30.8 L MCV 88.4 88.3 MCH 27.5 27.2 MCHC 31.1 30.8 L RDW 17.3 H 18.0 H Plt Count 132 L 125 L MPV 10.3 10.2 Immature Gran % (Auto) Cancelled Cancelled Neut % (Auto) Cancelled Cancelled Lymph % (Auto) Cancelled Cancelled [place] % (Auto) Cancelled Cancelled Eos % (Auto) Cancelled Cancelled Baso % (Auto) Cancelled Cancelled Lymph # (Auto) Cancelled Cancelled [place] # (Auto) Cancelled Cancelled Eos # (Auto) Cancelled Cancelled Baso # (Auto) Cancelled Cancelled Abs Immat Gran (auto) Cancelled Cancelled Absolute Neuts (auto) Cancelled Cancelled Absolute Nucleated RBC 0.210 H 0.200 H Nucleated RBC % (auto) 0.9 H 0.8 H Neutrophils % (Manual) 59 71 Band Neutrophils % 30 H 17 H Lymphocytes % (Manual) 2 L 4 L Monocytes % (Manual) 6 4 Metamyelocytes % 2 4 Myelocytes % Promyelocytes % 1 Abs Neuts (Manual) 21.1 H 21.4 H Lymphocytes # (Manual) 0.5 L 1.0 L Monocytes # (Manual) 1.4 H 1.0 Metamyelocytes # 0.5 1.0 Myelocytes # Promyelocytes # 0.2 Nucleated RBCs 1 H Toxic Granulation PRESENT PRESENT Dohle Bodies PRESENT PRESENT Platelet Estimate SLIGHTLY INCREASED SLIGHTLY DECREASED Plt Morphology Comment NORMAL NORMAL RBC Morphology NOTED NOTED Polychromasia 1+ (0-2) 1+ (0-2) Hypochromasia 1+ (5-14) Microcytosis 1+ (5-14) Macrocytosis 1+ (5-14) Target Cells 1+ (5-14) Tear Drop Cells 1+ (0-2) 1+ (0-2) Ovalocytes 1+ (5-14) 1+ (5-14) Acanthocytes (Spur) 1+ (0-2) PT INR D-Dimer High Sensitivty Sodium 140 Potassium 4.1 Chloride 109 H Carbon Dioxide 17 L Anion Gap 18 BUN 11 Creatinine 0.73 Estim Creat Clear Calc 85.8 Estimated GFR > 60 Random Glucose Fasting Glucose 156 H Calcium 7.4 L Magnesium Total Bilirubin 0.3 Direct Bilirubin AST 49 H ALT 31 Alkaline Phosphatase 218 H D Troponin I High Sens B-Natriuretic Peptide Total Protein 5.4 L Albumin 3.2 L Urine Color Urine Appearance Urine pH Ur Specific [place] Urine Protein Urine Glucose (UA) Urine Ketones Urine Blood Urine Nitrite Ur Leukocyte Esterase Stl C. cayetanensis PCR Stool Rotavirus A PCR Stl Adenov F 40/ PCR Stool Astrovirus (PCR) Stool Campylobacter PCR Stool Cryptosporidium PCR Stl Sh Tox Pr E STEC PCR Stool E coli O157 PCR Stl Enterotoxigenic E PCR Stool EPEC (PCR) Stool EAEC (PCR) Stl E. histolytica PCR Stool Giardia Lamblia PCR Stl P. shigelloides PCR Stool Salmonella PCR Stool Sapovirus (PCR) Stl Shigella/EIEC PCR St Y.enterocolitica PCR Stool Vibrio (PCR) Stl Vibrio cholerae PCR Stl Norovirus GI/GII PCR C. difficile Tox B Gene COVID-19 (JEN) COVID-19 Clin Com 11/27/21 06:30 WBC RBC Hgb Hct MCV MCH MCHC RDW Plt Count MPV Immature Gran % (Auto) Neut % (Auto) Lymph % (Auto) [place] % (Auto) Eos % (Auto) Baso % (Auto) Lymph # (Auto) [place] # (Auto) Eos # (Auto) Baso # (Auto) Abs Immat Gran (auto) Absolute Neuts (auto) Absolute Nucleated RBC Nucleated RBC % (auto) Neutrophils % (Manual) Band Neutrophils % Lymphocytes % (Manual) Monocytes % (Manual) Metamyelocytes % Myelocytes % Promyelocytes % Abs Neuts (Manual) Lymphocytes # (Manual) Monocytes # (Manual) Metamyelocytes # Myelocytes # Promyelocytes # Nucleated RBCs Toxic Granulation Dohle Bodies Platelet Estimate Plt Morphology Comment RBC Morphology Polychromasia Hypochromasia Microcytosis Macrocytosis Target Cells Tear Drop Cells Ovalocytes Acanthocytes (Spur) PT INR D-Dimer High Sensitivty Sodium 141 Potassium 3.3 Chloride 109 H Carbon Dioxide 20 L Anion Gap 15 BUN 10 Creatinine 0.68 Estim Creat Clear Calc 92.1 Estimated GFR > 60 Random Glucose Fasting Glucose 138 H Calcium 7.5 L Magnesium Total Bilirubin 0.4 Direct Bilirubin AST 30 ALT 32 H Alkaline Phosphatase 135 H D Troponin I High Sens B-Natriuretic Peptide Total Protein 5.2 L Albumin 3.4 L Urine Color Urine Appearance Urine pH Ur Specific [place] Urine Protein Urine Glucose (UA) Urine Ketones Urine Blood Urine Nitrite Ur Leukocyte Esterase Stl C. cayetanensis PCR Stool Rotavirus A PCR Stl Adenov F 40/41 PCR Stool Astrovirus (PCR) Stool Campylobacter PCR Stool Cryptosporidium PCR Stl Sh Tox Pr E STEC PCR Stool E coli O157 PCR Stl Enterotoxigenic E PCR Stool EPEC (PCR) Stool EAEC (PCR) Stl E. histolytica PCR Stool Giardia Lamblia PCR Stl P. shigelloides PCR Stool Salmonella PCR Stool Sapovirus (PCR) Stl Shigella/EIEC PCR St Y.enterocolitica PCR Stool Vibrio (PCR) Stl Vibrio cholerae PCR Stl Norovirus GI/GII PCR C. difficile Tox B Gene COVID-19 (JEN) COVID-19 Clin Com Airway Mallampati Class: III TM Dist: >3cm Neck ROM: Limited Loose/Missing/Broken Teeth: No Heart: RRR Lungs: CLEAR BUT DISTANT Assessment and Plan Final Anesthetic Review Family History of Problems with Anesthesia: No History of Problems with Anesthesia: No NPO: Yes ASA Class: III Final Preanesthetic Review: Meds/Allgs Chart Reviewed, Consent Obtained/Reviewed and Anes Risks/Benef Reviewed Patient Risk: Intermediate Procedure Risk: Low Anesthetic Plan Anesthetic Plan: MAC: Disposition: Standard PACU
[2021-11-27] MEDS: Lactated Ringers 1,000 ML 50 ML IVCONT (12:44)
--- NOTE | 2021-11-27 12:47 | MHC.SHP ---
Pre-Procedural Eval Section A Date of Service: 11/27/21 The patient is an INPATIENT: Yes The History & Physical has been completed within 30 days and I have reviewed it.: Yes Section B Chief Complaint: Diarrhea - immunosuppressed status Allergies: Allergies Allergy/AdvReac Type Severity Reaction Status Date / Time No Known Allergies Allergy Verified 11/14/21 11:02 Plan Diagnosis/Plan: Unchanged I have reviewed the history and physical and performed a pertinent physical examination on my patient. No changes have occurred unless specified.
--- NOTE | 2021-11-27 13:36 | P.OP_ITS ---
Operative Note Operative Note Date of Service: 11/27/21 Narrative: Procedure: Colonoscopy Indication: Diarrhea and colitis in immunosuppressed patient Endoscopist: Tere Alonso MD Anesthesia Provider: Dr Xiomara Ozuna Anesthesia type: MAC Instrument: Olympus [id number]-H190L Consent: Indication, risks vs benefits, and alternatives were discussed with the patient who gave written informed consent to proceed. Monitoring: EKG, pulse, pulse oximetry and blood pressure were monitored throughout the procedure. Medications: Please see anesthesia flowsheet. Procedure: The patient was brought to the procedure room and placed in the left lateral decubitus position. IV medications were administered by the anesthesia provider in attendance. A digital rectal exam was performed which was abnormal due to finding of hemorrhoids. The colonoscope was then inserted through the anus and advanced through the colon to the cecum at 90 cm. Mucosa was carefully examined under high definition white light as the instrument was slowly withdrawn in a retrograde panoramic fashion. Retroflexion was performed in rectum. The procedure was not difficult. There were no immediate obvious complications. The quality of the prep was BBPS: 2+1+2 = inadequate Withdrawal time 12 minutes. Limitations: Poor prep. Findings: Mucosa: Loss of normal vacular pattern and edematous appearing mucosa was noted in descending colon. Cold forceps biospies were taken. Protruding lesions: * Large external hemorrhoids stigmata of recent bleeding. Impression: 1. Abnormal mucosa in descending colon (biopsy) 2. External hemorrhoids 3. Poor prep Recommendations: - Follow path results. - Exam was not adequate for colorectal screening. Recommend repeat CRC screening (stool or colonoscopy) at the interval determined by previous test.
== END 2021-11-27 17:32 | disposition home or self-care (01) | DRG 249 ==
LOC: HO.ED 20:24 → HO.IMC 11-24 15:44 → HO.EDOVER 11-25 14:56 → HO.IMC 11-25 14:56
PROVIDERS: Internal Medicine; Admitting Provider Physician Assistant; Emergency Provider Emergency Medicine; PCP Nurse Practitioner Family; Visit Provider Hospitalist
PROC: 0DJD8ZZ Inspection of Lower Intestinal Tract, Via Natural or Artificial Opening Endoscopic (ICD-10-PCS; CPT 45378; principal; 2021-11-27 11:30)
DX: K52.1 Toxic gastroenteritis and colitis (principal); B37.0 Candidal stomatitis; C77.9 Secondary and unspecified malignant neoplasm of lymph node, unspecified; I47.1 Supraventricular tachycardia; D84.821 Immunodeficiency due to drugs; M36.0 Dermato(poly)myositis in neoplastic disease; D05.11 Intraductal carcinoma in situ of right breast; T45.1X5A Adverse effect of antineoplastic and immunosuppressive drugs, initial encounter; T38.0X5A Adverse effect of glucocorticoids and synthetic analogues, initial encounter; F41.9 Anxiety disorder, unspecified; F32.A Depression, unspecified; K64.4 Residual hemorrhoidal skin tags; E86.0 Dehydration; Z20.822 Contact with and (suspected) exposure to COVID-19; Z79.82 Long term (current) use of aspirin; Z86.16 Personal history of COVID-19; Z98.84 Bariatric surgery status; Z87.891 Personal history of nicotine dependence; Z79.899 Other long term (current) drug therapy
CPT/HCPCS: 36415; 71045; 71275; 74176; 80048; 80053; 80076; 81003; 83735; 83880; 84484; 85007; 85025; 85027; 85379; 85610; 87493; 87507; 87635; 88305; 93005; 96360; 99219; 99285; J0696; J1642; J1650; J2405; Q0163; Q9967

== ENCOUNTER → 2021-11-29 07:40 | Outpatient (BNVA) | payer OTHER, SELFPAY | PROVIDERS: PCP Nurse Practitioner Family; Visit Provider Internal Medicine Rheumatology | DX: M33.90 Dermatopolymyositis, unspecified, organ involvement unspecified (principal); M85.80 Other specified disorders of bone density and structure, unspecified site; C50.911 Malignant neoplasm of unspecified site of right female breast; Z79.899 Other long term (current) drug therapy | CPT/HCPCS: 99212 ==

== ENCOUNTER 2021-12-06 10:26 | Outpatient (REF) | payer OTHER, SELFPAY ==
[2021-12-06 10:51] LABS: MANUAL DIFF FLAG NO
[2021-12-06 10:54] LABS: Basophils Percent Auto 0.1 % (0-2); Hematocrit 30.3 % (37.0-47.0); Hemoglobin 9.4 g/dl (12.0-16.0); Imm Gran Abs Auto 0.15 X10*3/uL (0.00-0.03); Imm Gran Pct Auto 1.7 % (0.0-0.4); Lymphocytes Absolute Auto 0.5 X10*3/uL (1.2-4.9); Lymphocytes Percent Auto 5.7 % (20-40); Mean Corpuscular Hemoglobin 28.1 pg (27.0-33.0); Mean Corpuscular Volume 90.7 fL (80.0-98.0); Mean Platelet Volume 10.3 fL (9.4-12.3); Monocytes Absolute Auto 0.4 X10*3/uL (0.1-1.2); Monocytes Percent Auto 4.5 % (2-11); Platelet Count 149 X10*3/uL (160-400); Red Blood Count 3.34 X10*6/uL (4.20-5.50); Red Cell Distribution Width 20.2 % (11.0-16.0); White Blood Count 9.1 X10*3/uL (4.8-10.8)
[2021-12-06 11:14] LABS: C Reactive Protein 0.24 mg/dL (< or = 0.50); Estimated Glomerular Filt Rate > 60
[2021-12-06 11:35] LABS: Thyroid Stimulating Hormone 0.57 uIU/mL (0.32-4.0)
== END 2021-12-06 10:27 | disposition home or self-care (01) ==
LOC: HO.LAB 10:26
PROVIDERS: PCP Nurse Practitioner Family; Visit Provider Internal Medicine Rheumatology
DX: M33.90 Dermatopolymyositis, unspecified, organ involvement unspecified (principal); R79.89 Other specified abnormal findings of blood chemistry; Z79.899 Other long term (current) drug therapy
CPT/HCPCS: 36415; 82550; 82565; 84443; 85025; 86140

== ENCOUNTER 2021-12-14 10:54 | Inpatient (IN) | payer OTHER, SELFPAY ==
[2021-12-14] VITALS (7 sets, daily range): BP systolic 107–168; BP diastolic 52–86; PULSE 75–96; RESP 14–23; TEMP 36.5–37; O2SAT 95–99; BMI 42.0
--- NOTE | ~2021-12-14 | CT_ITS ---
EXAMINATION: CT HEAD WITHOUT CONTRAST CLINICAL INFORMATION: Fall COMPARISON: None TECHNIQUE: Contiguous axial imaging was performed from the skull base to vertex without intravenous administration of contrast. This CT examination was performed using dose optimization techniques as appropriate, variously including the following: *Automated exposure control *Adjustment of mA and/or kV according to patient size (this includes techniques or standardized protocols for targeted exams where dose is matched to indication/reason for exam; i.e. extremities or head) *Use of iterative reconstruction technique DLP: 782 mGy-cm FINDINGS: There is no evidence of an extra-axial collection. There is no evidence of intra-axial or extra-axial hemorrhage. The ventricles and extra-axial CSF spaces are appropriate. Arroyo-white matter differentiation is normal. No mass, mass effect or infarct is seen. No skull fracture is seen. There is a polyp or cyst in the right maxillary sinus. Paranasal sinuses, mastoid air cells and middle ears are otherwise clear. CT/CT head/brain wo IV con IMPRESSION: No acute findings.
--- NOTE | ~2021-12-14 | CT_ITS ---
EXAMINATION: CT ABDOMEN AND PELVIS WITH CONTRAST CLINICAL INFORMATION: Lower abdominal pain. Bloody diarrhea. Rule out colitis. COMPARISON: Previous CT of the abdomen and pelvis 11/23/2021 TECHNIQUE: Multidetector volumetric images were obtained from the superior aspect of the liver through the pubic symphysis following administration 85 mL of Omnipaque 350 intravenous contrast. Sagittal and coronal reformatted images were obtained on the technologist's workstation. Oral contrast: Yes This CT examination was performed using dose optimization techniques as appropriate, variously including the following: *Automated exposure control *Adjustment of mA and/or kV according to patient size (this includes techniques or standardized protocols for targeted exams where dose is matched to indication/reason for exam; i.e. extremities or head) *Use of iterative reconstruction technique DLP: 835 mGy-cm FINDINGS: LUNG BASES: The small left pleural effusion and atelectasis or small infiltrate at the left lung base. LIVER, GALLBLADDER, AND BILIARY TREE: The liver is normal in size, shape, and attenuation. No focal hepatic lesion or biliary ductal dilatation is present. The gallbladder is seen is presumably been. PANCREAS: Fatty infiltration of the head of the pancreas. The pancreas is otherwise unremarkable. SPLEEN: Slightly enlarged measuring 14 cm in length. ADRENAL GLANDS: Stable low-attenuation 1 cm right adrenal nodule probably representing a benign adenoma. Normal left adrenal gland. KIDNEYS AND URETERS: The kidneys are normal in size, shape, and attenuation. No hydronephrosis, hydroureter, or calculi seen. No perinephric stranding. BLADDER: Unremarkable. GASTROINTESTINAL TRACT: There is wall thickening and edema of the colon suggestive of pancolitis. No bowel dilatation is seen. There are postsurgical changes from gastric bypass. The appendix is normal.. There is a small amount of ascites in the pelvis. ABDOMINAL WALL: Small umbilical hernia containing fat. Diffuse subcutaneous edema. LYMPH NODES: Normal. VASCULAR: Unremarkable. PELVIC VISCERA: Uterus is been. No adnexal mass. OSSEOUS STRUCTURES: Degenerative changes. No focal bone lesion or fracture. CT/CT abdomen pelvis w IV con IMPRESSION: Pancolitis. Small amount of ascites in the pelvis. Other stable findings from November 2021 exam. Fleischner guidelines were followed.
--- NOTE | ~2021-12-14 | CT_ITS ---
EXAMINATION: CT ANGIOGRAM OF THE CHEST WITH AND WITHOUT CONTRAST (CT PULMONARY ANGIOGRAM FOR PE) CLINICAL INFORMATION: Reason for Exam Breast CA, SOB rule out PE COMPARISON: Previous chest CTA November 2021 TECHNIQUE: Prior to contrast administration, noncontrast localization images were obtained. Subsequently, multidetector volumetric imaging was performed from the thoracic inlet to below the diaphragms following the administration of 85 mL Omnipaque 350 intravenous contrast. No contrast reaction reported Sagittal, coronal, and MIP oblique sagittal reformatted images were obtained on the CT workstation, uploaded to PACS, and reviewed. This CT examination was performed using dose optimization techniques as appropriate, variously including the following: *Automated exposure control *Adjustment of mA and/or kV according to patient size (this includes techniques or standardized protocols for targeted exams where dose is matched to indication/reason for exam; i.e. extremities or head) *Use of iterative reconstruction technique Total exam dose-length product 407 mGy-cm FINDINGS: QUALITY OF STUDY/CONTRAST BOLUS: Satisfactory. PULMONARY ARTERIES: No central or segmental pulmonary emboli. THORACIC AORTA: No aneurysm or dissection. LUNG: There is new atelectasis or small infiltrate in the left lower lobe the left anterior lateral lung base. There is subsegmental atelectasis in the inferior segment of the lingula and right lower lobe. There are several new heterogeneous peribronchial nodules seen in the left upper lobe probably related to airways disease. There is heterogeneous or metastatic attenuation of the lungs probably related to airways disease as well. PLEURA: New small left pleural effusion. MEDIASTINUM: Normal heart size. No pericardial effusion. Small mediastinal and bilateral hilar lymph nodes. No enlarged hilar or mediastinal lymphadenopathy. No evidence of septal bowing or right heart strain. There is a left jugular port with tip projecting over the proximal SVC. CHEST WALL/AXILLA: There is skin thickening over the right breast diffuse increased attenuation of the right breast tissue compared to the left.. There is a 4 x 5 cm fluid collection in the right breast likely representing postsurgical change. There is a partially visualized low-attenuation 2.5 x 3 cm question fluid collection in the right axilla questionable for postsurgical change as well. OSSEOUS STRUCTURES: No acute or suspicious osseous abnormality. Postsurgical changes to the lower cervical and upper thoracic spine. Degenerative changes of the thoracic spine. UPPER ABDOMEN: No reflux of contrast into the hepatic veins to suggest elevated right heart pressures. CT/CT angio chest PE protocol IMPRESSION: No evidence of pulmonary embolism. New small left pleural effusion. Atelectasis or small infiltrate at the left lung base. Small heterogeneous left upper lobe nodules in peribronchial distribution, question related to airways disease. Postsurgical changes to the right breast and axilla. VTE: negative
--- NOTE | 2021-12-14 11:23 | PC.NURSE ---
patient a/ox4 . pearrla . redness and swelling noted bilaterally in eyes r/t chemo treatment patient has scheduled IVG treatments in December for it . Lungs diminished , patient reports heaviness to breathing with history of asthma lungs diminished . port on left side . skin pink warm and dry . abdomen soft , edematous . rebound tenderness noted throughout lower abdomen . positive bowel sounds noted throughout . bilateral 3plus bitting edema noted in lower extremities patient reports during chemo treatment she has experienced this and its not a new finding . patient on monitor now . patient aware of plan of care .
--- NOTE | 2021-12-14 11:40 | ED_ITS ---
HPI - General Adult General Chief complaint: General Medical Stated complaint: Blood in stool/SOB Time Seen by Provider: 12/14/21 11:39 Source: patient and other (Oncology note) Mode of arrival: ambulatory Limitations: no limitations History of Present Illness HPI narrative: 66-year-old female who was referred to the emergency department from Oncology for evaluation bloody diarrhea, abdominal pain, facial swelling, throat swelling and shortness of breath. The patient states that she is been receiving chemotherapy for right-sided breast cancer. She states that she has had 2 rounds of chemotherapy with her last round on , 12/07/2021 (8 days prior to evaluation). She states that she went to the oncology department for laboratory evaluation and told her provider that she was feeling short of breath, she had 2 bloody stools today, she was having swelling of her face and difficulty swallowing. The patient told me that she has been having diarrhea 3 to 4 times a day since getting chemotherapy. She states that she had 3-4 diarrhea stools daily that are soft and liquidy, and ? dijion mustard colored . She states she may have had some slight blood in her stool 1 week prior but attributed this to your hemorrhoids. She states that at 03:00 and 06:00 hours she had 2 bloody diarrheal stools which were new for her. She states that she also developed lower abdominal pain. She points to her suprapubic and left lower quadrant when asked to localize the pain, she states the pain is a cramping like pain which is intermittent, moderate in intensity (6/10). Patient states that 1 week prior her leg gave out on her causing her to fall forward. She states she hit her head but had no loss of consciousness. She did chip her front tooth. She denies headache. Related Data Home Medications Medication Instructions Recorded Confirmed ketoconazole 2 % shampoo 1 appl topical 2XW 09/28/21 11/29/21 cyanocobalamin (vitamin B-12) 1,000 mcg PO BEDTIME 10/12/21 11/29/21 1,000 mcg capsule lutein 40 mg capsule 40 mg PO DAILY 10/30/21 11/29/21 calcium carbonate 600 mg-vitamin 1 tab PO DAILY 10/31/21 11/29/21 D3 10 mcg (400 unit) tablet prednisone 10 mg tablet 60 mg PO QAM 11/08/21 11/23/21 betamethasone dipropionate 0.05 % 1 appl topical BID PRN psorias 11/23/21 11/29/21 lotion flare up cholecalciferol (vitamin D3) 25 25 mcg PO DAILY 11/23/21 11/29/21 mcg (1,000 unit) tablet alendronate 70 mg tablet 70 mg PO QWEEK 11/29/21 11/29/21 ondansetron 8 mg disintegrating 8 mg PO Q8H PRN 11/29/21 tablet Previous Rx's Medication Instructions Recorded calcitriol 0.25 mcg capsule 0.25 mcg PO DAILY #30 caps 06/09/21 diphenhydramine HCl 25 mg capsule 25 mg PO TID PRN itching #14 caps 06/24/21 (Benadryl) ibuprofen 800 mg tablet 800 mg PO Q8H PRN pain #20 tabs 08/11/21 lisinopril 20 1 tab PO DAILY #90 tabs 09/07/21 mg-hydrochlorothiazide 12.5 mg tablet Magic Mouthwash 10 ml PO QID #240 mL 11/23/21 Diphen/Lido/Antacid 1:1:1 240 mL suspension metoprolol succinate 50 mg 50 mg PO DAILY #30 tabs 11/27/21 tablet,extended release 24 hr immune glob,gamma(IgG) 10 70 g IV DAILY #7 ea 11/29/21 [id number]-IgA 0 to 50 mcg/mL IV solution (Gammagard S-D (IgA < 1 mcg/mL)) clonidine HCl 0.2 mg tablet 0.2 mg PO BEDTIME #90 tabs 12/13/21 duloxetine 60 mg capsule,delayed 60 mg PO BEDTIME #90 caps 12/13/21 release Allergies Allergy/AdvReac Type Severity Reaction Status Date / Time No Known Allergies Allergy Verified 12/11/21 15:41 Review of Systems Review of Systems: Yes all other systems are reviewed and are negative PMFSH Past Medical History Medical History (Updated 12/14/21 @ 17:58 by Augie Rich MD) Anxiety Breast calcification, right Breast cancer, right Colitis Dermatomyositis Encounter to establish care History of COVID-19 Hypertension Insomnia Invasive ductal carcinoma of right breast Lumbar degenerative disc disease Major depression, chronic Pain in both feet Pedal edema Port-A-Cath in place Surgical History (Updated 12/14/21 @ 15:18 by Mario Grey) History of arthroscopic knee surgery History of section History of cholecystectomy History of fusion of cervical spine History of gastric bypass History of hysterectomy History of tonsillectomy Hx of colonoscopy Status post right breast lumpectomy Family History Family History Mother No problems noted. Father Breast cancer Bone cancer Brother Substance use disorder Paternal Aunt Breast cancer Social History Social History Household Members: Family Housing: House Are you a primary acute care registered nurse to a significant other at home: No Do you presently have visiting nurse or other home services: No Alcohol intake: former Patient Tobacco Use Status: Former Tobacco user Quit Date: 12 yrs ago Tobacco use type: Cigarette e-Cigarette/Vaping Use: Never Used Advance Directives: Yes Advance Directives on File: Yes Advance Directives Date on File: 11/28/21 Patient : No service: No Current occupational status: unemployed and retired Cognitive needs: Yes (cane) Hearing needs: No Vision needs: Yes (glasses) Physical Exam ED Vital Signs: Vital Signs - 24 hr 12/14/21 11:05 12/14/21 11:18 12/14/21 12:46 Temperature 98.6 F 98.3 F 98.2 F Pulse Rate 85 84 75 Respiratory Rate 16 16 14 Blood Pressure 146/76 H 146/76 H 143/80 H Pulse Oximetry 96 96 95 Oxygen Delivery Method Room Air Room Air Room Air 12/14/21 16:24 Temperature 97.7 F Pulse Rate 80 Respiratory Rate 16 Blood Pressure 121/60 Pulse Oximetry 99 Oxygen Delivery Method Room Air BMI result Body Mass Index 42.0 Const General: cooperative and no acute distress Orientation/consciousness: oriented to person and oriented to place Limitations: no limitations HENMT Head: Yes normal to inspection, Yes normocephalic and Yes atraumatic Ears: external ears normal General nose exam: Normal external nose present Face and sinus: Yes normal facial exam Mouth: Normal oral and palatal mucosa present Throat: Yes posterior oropharynx normal Eyes General: appearance normal, both eyes and all related structures Pupils: Equal, round and reactive pupils present Neck Neck: Yes normal visual inspection, Yes no lymphadenopathy, Yes trachea midline and Yes supple Chest Chest palpation & inspection: normal inspection of the chest and normal palpation of entire chest wall Resp Effort & Inspection: normal respiratory effort and able to speak in complete sentences Auscultation: clear to auscultation bilaterally Cardio Rate: regular rate Rhythm: regular rhythm Heart sounds: S1 normal heart sound present, S2 normal heart sound present and no murmurs GI Inspection: Yes obesity Palpation (GI): Soft to palpation, Tenderness to palpation present (GI) in the LLQ (Moderate) and suprapubicly (Moderate) and no guarding Auscultation: normal bowel sounds General: Yes no CVA tenderness Back/Spine/Pelvis Back: no CVA tenderness Skin General skin exam: no rashes or lesions noted Neuro General: oriented to person and oriented to place Cranial nerves: Yes CN's II-XII intact bilaterally and Yes Equal, round and reactive pupils present Cognition (Neuro): normal cognition Motor exam (neuro): 5/5 motor strength present throughout Extrem General: Yes normal to inspection Psych Appearance: grossly normal Speech and movement: Normal speech and movement present Affect: normal affect Attitude: cooperative Thought process: Normal thought process present Thought content: Normal thought content present Course Course Course Narrative: 66-year-old female with a history of right sided breast cancer currently getting chemotherapy (2nd dose given 12/07/2021-pertuzumab, trastuzumab, doxetaxel, carboplatin) who presents emergency department for evaluation of bloody stools and abdominal pain which began this morning, facial swelling throat swelling shortness of breath and fatigue. Vital signs were unremarkable. Physical examination did reveal suprapubic and left lower quadrant abdominal tenderness. Rectal exam revealed reddish stool which was sent for occult blood testing. Labs were drawn at the Oncology Department, I added lipase, C diff, GI panel. I will obtain a CT scan of the patient's head given her recent fall. I also ordered CT pulmonary angiogram PE protocol, CT abdomen pelvis with IV contrast. Patient was given normal saline x1 L and morphine 4 mg IV with Zofran 4 mg IV f or her pain. 1222: Laboratory evaluation done from the oncology department at 1028: Pancytopenia, WBC 3600, H&H 8.2 and 27, platelet count 62720(decreased compared to 11/16/2021 WBC 9.1, H&H 9.4 and 30.3, platelet count [id number])-this is most likely secondary to recent chemotherapy. CMP revealed elevated glucose 138 otherwise unremarkable. 1657: Patient is feeling better after receiving IV fluid. Stool sample was obtained, C diff and GI panel are pending. Patient had a GI panel 11/23/2021. CT scan of the head was negative. CT pulmonary angiogram of the chest revealed no PE and no significant findings to explain your request shortness of breath. CT scan of the abdomen pelvis with IV contrast was consistent with garcia colitis. I will discuss these findings with the patient's oncologist, Dr. Hernández. 175: I did discuss the patient's presentation with Dr. Hernández. After this discussion, there is a concerned that the patient's anemia may be multifactorial related to her garcia colitis/bleeding and secondary to her chemotherapy. She is also concerned that patient may have C difficile, this test is pending. Her recommendation was that the patient be admitted for 24 hours for IV hydration, to follow her H&H and determine if she needs treatment for possible C difficile colitis . Therefore I will discuss admission with the covering hospitalist. Medical Decision Making Lab Data Labs: Lab Results 12/14/21 12/14/21 Range/Units 10:28 16:29 Stool Occult Blood POSITIVE (NEGATIVE) Blood Type A Positive Antibody Screen NEGATIVE Discharge Plan Discharge Clinical Impression: Pancolitis, Diarrhea, Pancytopenia, Acute dehydration Patient Disposition: Admitted As Inpatient Prescriptions: No Action calcitriol 0.25 mcg capsule 0.25 mcg PO DAILY Qty: 30 2RF ibuprofen 800 mg tablet 800 mg PO Q8H PRN (Reason: pain) Qty: 20 0RF lisinopril-hydrochlorothiazide 20-12.5 mg tablet 1 tab PO DAILY Qty: 90 0RF Hold Instructions: Doctor's Order duloxetine 60 mg capsule,delayed release(DR/EC) 60 mg PO BEDTIME Qty: 90 1RF clonidine HCl 0.2 mg tablet 0.2 mg PO BEDTIME Qty: 90 1RF cyanocobalamin (vitamin B-12) 1,000 mcg capsule 1,000 mcg PO BEDTIME prednisone 10 mg tablet 60 mg PO QAM diphenhydramine HCl [Benadryl] 25 mg capsule 25 mg PO TID PRN (Reason: itching) Qty: 14 0RF lutein 40 mg Capsule 40 mg PO DAILY Rx Instructions: administer with meals Magic Mouthwash Diphen/Lido/Antacid 1:1:1 240 mL Suspension 10 ml PO QID Qty: 240 3RF Rx Instructions: Lidocaine Viscous 2 % 80mL; diphenhydramine 12.5 mg/5 mL 80mL; aluminum-mag hydrox-simeth [id number] 80mL betamethasone dipropionate 0.05 % lotion 1 appl topical BID PRN (Reason: psorias flare up) Rx Instructions: 2 WEEKS ON AND ONE WEEK OFF cholecalciferol (vitamin D3) 25 mcg (1,000 unit) Tablet 25 mcg PO DAILY metoprolol succinate 50 mg Tablet Extended Release 24 Hr 50 mg PO DAILY Qty: 30 0RF Protocol: Hold for SBP/HR < HOLD for SBP < : 90 HOLD for HR < : 60 alendronate 70 mg tablet 70 mg PO QWEEK ketoconazole 2 % shampoo 1 appl topical 2XW calcium carbonate-vitamin D3 600 mg-10 mcg (400 unit) tablet 1 tab PO DAILY ondansetron 8 mg tablet,disintegrating 8 mg PO Q8H PRN Gammagard S-D (IgA < 1 mcg/mL) 10 gram recon soln 70 g IV DAILY Qty: 7 4RF Rx Instructions: for 2 consecutive days every 30 days
--- NOTE | 2021-12-14 12:02 | PC.NURSE ---
Quiac stool obtained by Dr Rich, stool does appear blood tinged
[2021-12-14] MEDS: Morphine Sulfate 4 MG/ML CARTRIDGE IVPUSH (12:24)
[2021-12-14] MEDS: 0.9 % Sodium Chloride 1,000 ML 999 ML IV (12:25)
[2021-12-14] MEDS: ondansetron HCL 4 MG/2 ML VIAL IVPUSH (12:25)
[2021-12-14] MEDS: iohexoL 350 MG/ML 100 ML INFUS..BTL IV (13:47)
[2021-12-14 16:58] LABS: OBS Int Ctl Valid YES; OBS1 POSITIVE (NEGATIVE)
[2021-12-14 17:55] LABS: CDiff Gene PCR NEGATIVE (Negative)
[2021-12-14] MEDS: Lactated Ringers 1,000 ML 125 ML IVCONT (19:27)
[2021-12-14 19:42] LABS: Appearance Urine Clear; Color Urine Dark Yellow; Glucose Urine UA Negative (Negative); Leukocyte Esterase Urine Negative (Negative); Nitrite Urine Negative (Negative); PH 6.5 (5.0-9.0); Specific Gravity - Urine >= 1.030 (1.005-1.025); UMIC TRIGGER UACC YES; Urine Blood Trace (Negative); Urine Ketones Negative (Negative); Urine Protein 30 (1+) mg/dL (Neg-Trace)
--- NOTE | 2021-12-14 19:45 | PHA.MEDREC ---
MED REC COMPLETE Pharmacy Consult ? Medication Reconciliation Pharmacy has completed the medication reconciliation.
--- NOTE | 2021-12-14 19:45 | PHA.MEDREC ---
MED REC COMPLETE, NO ISSUES Pharmacy Consult ? Medication Reconciliation Pharmacy has completed the medication reconciliation.
--- NOTE | 2021-12-14 19:54 | P.HPHOSP_ITS ---
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 States has had copious diarrhea since starting chemo 4 weeks ago, but first noticed bright red blood yesterday and continued into today. Also reporting SOB for one week. Has history of asthma but states this has been controlled since quitting smoking 12 years ago. Feels like air hunger, no wheezing. Mild tachypnea 23, vitals otherwise stable without hypoxia. WBC 3.6. H/H 8.2/27.0% (baseline 9.4/30.3%). Renal function stable, electrolytes normal. UA with high SG, 1+ protein. CT abd/pelvis showing pancolitis with small amount ascites. Chest CTA negative for PE. New small left pleural effusion and atelectasis left lung base vs infiltrate. Small heterogenous RHODA nodules in peribronchial distribution, ?r/t airway disease. Head CT negative. Review of Systems Review of Systems: General: No fevers, malaise, unintentional weight loss Cardiovascular: No chest pain, palpitations, or leg edema Respiratory: +sob. No wheezing, cough GI: +abd pain, +diarrhea, +brbpr. No abdominal pain, nausea, vomiting, diarrhea, constipation, melena, hematochezia : No dysuria, hematuria, increased frequency Neuro: No headaches, weakness, paresthesias Skin: No rashes or lesions [facility] Medical History Anxiety Breast calcification, right Breast cancer, right Colitis Dermatomyositis Encounter to establish care History of COVID-19 Hypertension Insomnia Invasive ductal carcinoma of right breast Lumbar degenerative disc disease Major depression, chronic Pain in both feet Pedal edema Port-A-Cath in place Family History Mother No problems noted. Father Breast cancer Bone cancer Brother Substance use disorder Paternal Aunt Breast cancer Surgical History History of arthroscopic knee surgery History of section History of cholecystectomy History of fusion of cervical spine History of gastric bypass History of hysterectomy History of tonsillectomy Hx of colonoscopy Status post right breast lumpectomy Social History Household Members: Family Housing: House Are you a primary customer care agent to a significant other at home: No Do you presently have visiting nurse or other home services: No Alcohol intake: former Patient Tobacco Use Status: Former Tobacco user Quit Date: 12 yrs ago Tobacco use type: Cigarette e-Cigarette/Vaping Use: Never Used Advance Directives: Yes Advance Directives on File: Yes Advance Directives Date on File: 11/28/21 Patient : No service: No Current occupational status: unemployed and retired Cognitive needs: Yes (cane) Hearing needs: No Vision needs: Yes (glasses) Meds Allergies Allergy/AdvReac Type Severity Reaction Status Date / Time No Known Allergies Allergy Verified 12/11/21 15:41 Active Medications: Current Medications Acetaminophen (Acetaminophen 325 Mg Tablet) 650 mg PO Q6H PRN PRN Reason: Pain, Mild (Pain Scale 1-3) Clonidine HCl (Clonidine Hcl 0.2 Mg Tablet) 0.2 mg PO BEDTIME CHELSIE; Protocol Cyanocobalamin (Cyanocobalamin (Vitamin B-12) 1,000 Mcg Tablet) 1,000 mcg PO BEDTIME CHELSIE Diphenhydramine HCl (Diphenhydramine Hcl 25 Mg Tablet) 25 mg PO TID PRN PRN Reason: itching Duloxetine HCl (Duloxetine Hcl 60 Mg Capsule.Dr) 60 mg PO BEDTIME CHELSIE Enoxaparin Sodium (Enoxaparin Sodium 40 Mg/0.4 Ml Syringe) 40 mg SUBCUT Q24H CHELSIE Lactated Ringer's (Lr) 1,000 mls @ 125 mls/hr IVCONT .Q8H CHELSIE Last Admin: 12/14/21 19:27 Dose: 125 mls/hr Metoprolol Succinate (Metoprolol Succinate Er 50 Mg Tab.Er.24h) 50 mg PO DAILY CHELSIE; Protocol Non-Formulary Medication (Lutein) 40 mg PO DAILY [facility]SI[facility] Non-Formulary Medication (Magic Mouthwash Diphen/Lido/Antacid 1:1:1) 10 ml PO QID [facility] Non-Formulary Medication (Calcium Carbonate-Vitamin D3) 1 tab PO DAILY [facility] Ondansetron HCl (Ondansetron Hcl 4 Mg/2 Ml Vial) 4 mg IVPUSH Q8H PRN PRN Reason: Nausea and Vomiting Prednisone (Prednisone 20 Mg Tablet) 40 mg PO DAILY [facility] Sodium Chloride (0.9 % Sodium Chloride Flush 3 Ml Syringe) 3 ml IVFLUSH QSHIFT [facility] Vitamin D (Cholecalciferol (Vitamin D3) 25 Mcg Tablet) 25 mcg PO DAILY [facility] Home Medications Medication Instructions Recorded Confirmed Last Taken Type ketoconazole 2 % shampoo 1 appl topical 2XW 09/28/21 12/14/21 Unknown History cyanocobalamin (vitamin B-12) 1,000 mcg PO BEDTIME 10/12/21 12/14/21 Unknown History 1,000 mcg capsule lutein 40 mg capsule 40 mg PO DAILY 10/30/21 12/14/21 Unknown History calcium carbonate 600 mg-vitamin 1 tab PO DAILY 10/31/21 12/14/21 Unknown History D3 10 mcg (400 unit) tablet prednisone 10 mg tablet 40 mg PO DAILY 11/08/21 12/14/21 12/14/21 History betamethasone dipropionate 0.05 % 1 appl topical BID PRN psorias 11/23/21 12/14/21 Unknown History lotion flare up cholecalciferol (vitamin D3) 25 25 mcg PO DAILY 11/23/21 12/14/21 Unknown History mcg (1,000 unit) tablet alendronate 70 mg tablet 70 mg PO FR@0600 11/29/21 12/14/21 12/08/21 History ondansetron 8 mg disintegrating 8 mg PO Q8H PRN Nausea 11/29/21 12/14/21 Unknown History tablet Physical Exam Vital Signs and Narrative: Vital Signs: Last Vital Signs Temp 98.1 F 12/14/21 19:20 Pulse 96 12/14/21 19:20 Resp 23 H 12/14/21 19:20 BP 168/86 H 12/14/21 19:20 Pulse Ox 98 12/14/21 19:20 O2 Del Method 12/14/21 19:20 BMI result Body Mass Index 42.0 Constitutional - Awake and Alert, No apparent distress Eyes - PERRLA, EOMI Mouth: dry lips and tongue Cardiovascular - S1S2, RRR, 3+b/l pitting edema Respiratory - Normal lung expansion, Normal respiratory effort, No respiratory distress, CTA bilaterally Gastrointestinal - Diffuse abd ttp without guarding or rebound.ND; +BS Extremities - no calf tenderness bilaterally Skin - Warm/Dry Neurological - Alert & oriented x3, No focal deficit Psychological - Appropriate affect Results Labs Labs: Laboratory Results - last 24 hr 12/14/21 12/14/21 12/14/21 10:28 16:29 16:29 Urine Color Urine Appearance Urine pH Ur Specific [place] Urine Protein Urine Glucose (UA) Urine Ketones Urine Blood Urine Nitrite Ur Leukocyte Esterase Stool Occult Blood POSITIVE C. difficile Tox B Gene NEGATIVE Blood Type A Positive Antibody Screen NEGATIVE 12/14/21 19:33 Urine Color Dark Yellow Urine Appearance Clear Urine pH 6.5 Ur Specific [place] >= 1.030 H Urine Protein 30 (1+) H Urine Glucose (UA) Negative Urine Ketones Negative Urine Blood Trace H Urine Nitrite Negative Ur Leukocyte Esterase Negative Stool Occult Blood C. difficile Tox B Gene Blood Type Antibody Screen Imaging Radiologist's Impressions: Impressions Abdomen/Pelvis CT 12/14/21 14:04 IMPRESSION: Pancolitis. Small amount of ascites in the pelvis. Other stable findings from November 2021 exam. Fleischner guidelines were followed. Chest CTA 12/14/21 14:08 IMPRESSION: No evidence of pulmonary embolism. New small left pleural effusion. Atelectasis or small infiltrate at the left lung base. Small heterogeneous left upper lobe nodules in peribronchial distribution, question related to airways disease. Postsurgical changes to the right breast and axilla. VTE: negative Head CT 12/14/21 14:09 IMPRESSION: No acute findings. 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 1-Pancolitis r/t chemotherapy -Diarrhea ongoing 4 weeks since chemo initiated with BRBPR x 1 day -CT abd/pelvis with pancolitis -H/H decreased from baseline. Follow H/H -Renal fx and lytes normal. Mag added. Recheck BMP am -Bell diet -Immodium prn -Stool studies pending -Gastroenterology consulted -Hold fluids due to fluid overload 2-Acute dehydration secondary to diarrhea -Received NS bolus and LR in ED -Hold fluids d/t fluid overload -Follow bmp 3-Volume overload -3+ b/l pitting edema with new pleural effusion. No hx heart failure -BNP ordered. Follow BNP -40mg IV lasix once given -Daily weights -Monitor I&O 4-SOB -likely secondary to pleural effusion. See above -Hx asthma. Nebs prn 5-Oral candidiasis secondary to prolonged steroid use -Nystatin swish and swallow 8-PWA-amnhnl -Continue home meds 7-Depression/anxiety -Continue duloxetine. 8-Dermatomyositis -Continue prednisone per rheumatology 9-DCIS right breath on chemotherapy as above -Continue plan per oncology DVT prophylaxis- lovenox Full code Pt requires inpt stay at least 2 midngiths for management of pancolitis with BRBPR and new effusions requiring further evaluation and management with IV diuretic and further monitoring and specialist evaluation. Quality Stroke Does the patient have a stroke diagnosis?: No VTE Prior VTE?: No VTE Risk Level:: Medical - moderate - high VTE Device Contraindication: Treatment Not Indicated VTE Drug Contraindication: N/A - Med Ordered
[2021-12-14 20:02] LABS: Renal Epithelial Cells Urine Present; Transitional Epi Cells Urine Present
[2021-12-14 20:03] LABS: Bacteria Urine 2+ (None Seen); Hyaline Casts Urine 0-2 /LPF (0-2); WBC Urine 0-5 /HPF (0-5)
[2021-12-14] MEDS: cloNIDine HCL 0.2 MG TABLET PO (21:30)
[2021-12-14] MEDS: Enoxaparin Sodium 40 MG/0.4 ML SYRINGE SUBCUT (21:31)
[2021-12-14] MEDS: Furosemide 40 MG/4 ML VIAL IVPUSH (21:31)
[2021-12-14] MEDS: Cyanocobalamin (Vitamin B-12) 1,000 MCG TABLET 1000 MCG PO (21:31)
[2021-12-14] MEDS: DULoxetine HCl 60 MG CAPSULE.DR PO (21:31)
[2021-12-14] MEDS: 0.9 % Sodium Chloride Flush 3 ML SYRINGE IVFLUSH (23:11)
[2021-12-14 23:38] LABS: B Type Natriuretic Peptide 65 pg/mL (<100)
[2021-12-15] VITALS (9 sets, daily range): BP systolic 112–151; BP diastolic 56–90; PULSE 9–137; RESP 14–20; TEMP 36–36.6; O2SAT 95–99
[2021-12-15] MEDS: Lactated Ringers 1,000 ML 125 ML IVCONT (01:51)
[2021-12-15 06:26] LABS: COVID-19 Test Negative (Negative)
[2021-12-15] MEDS: cefTRIAXone sodium 1 GM in 0.9 % Sodium Chloride 50 ML IV (06:45)
[2021-12-15] MEDS: Lactated Ringers 1,000 ML 100 ML IVCONT ×2 (06:45→18:02)
[2021-12-15 07:01] LABS: Hematocrit 26.2 % (37.0-47.0); Mean Corpuscular HGB Conc 30.5 g/dl (31.0-35.0); Mean Corpuscular Hemoglobin 27.7 pg (27.0-33.0); Mean Corpuscular Volume 90.7 fL (80.0-98.0); Mean Platelet Volume 11.2 fL (9.4-12.3); Red Blood Count 2.89 X10*6/uL (4.20-5.50); Red Cell Distribution Width 18.8 % (11.0-16.0)
[2021-12-15 07:03] LABS: NRBC Pct Auto 1.1 /100WBC (0.0-0.2); Platelet Count 78 X10*3/uL (160-400); WBC ABN SCTR FOR CBC 1
--- NOTE | 2021-12-15 07:09 | PM.GICN ---
History of Present Illness Data of Consult Service Date: 12/15/21 Requesting physician: Abigail Mistry Primary Care Provider: THA Cast Reason for consult: chemo realted colitis, brbpr 66 YF with dermatomyositis on prednisone taper, anxiety, insomnia, asthma, depression, DCIS right breast on carboplatin/docetaxel/Herceptin/pertuzumab based chemotherapy started on 11/16 s/p lumpectomy seen at [facility] on 12/14/21 with 1 day hx of BRBPR. Pt stated she has copious diarrhea since starting chemo 4 weeks ago, but first noticed bright red blood yesterday and continued into today. Pt received 2nd cycle of chemotherapy on 12/07/2021. Also reporting SOB for one week. Has history of asthma but states this has been controlled since quitting smoking 12 years ago. Feels like air hunger, no wheezing. Mild tachypnea 23, vitals otherwise stable without hypoxia. WBC 3.6. H/H 8.2/27.0% (baseline 9.4/30.3%). Renal function stable, electrolytes normal. UA with high SG, 1+ protein. CT abd/pelvis showing pancolitis with small amount ascites. Chest CTA negative for PE. New small left pleural effusion and atelectasis left lung base vs infiltrate. Small heterogenous RHODA nodules in peribronchial distribution, ?r/t airway disease. Head CT negative. 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 She recently moved in 2020.? She had her 1st colonoscopy when she was 52 years old, and was told she had some polyps, but thereafter had ??Cologuard every 3 years including in 2019 which was negative. No family history of ulcerative colitis, Crohn's disease or colon cancer.? Father had breast cancer. 12/14/[address] SCAN SHOWED: GASTROINTESTINAL TRACT: There is wall thickening and edema of the colon suggestive of pancolitis. No bowel dilatation is seen. There are postsurgical changes from gastric bypass. The appendix is normal.. There is a small amount of ascites in the pelvis. ABDOMINAL WALL: Small umbilical hernia containing fat. Diffuse subcutaneous edema. 11/27/21 [address] PER[address] NGUYEN: Findings: Mucosa:? Loss of normal vacular pattern and edematous appearing mucosa was noted in descending colon. Cold forceps biospies were taken. Protruding lesions: Large external hemorrhoids stigmata of recent bleeding. Impression: 1. Abnormal mucosa in descending colon (biopsy) 2. External hemorrhoids 3. Poor prep Recommendations: - Follow path results. - Exam was not adequate for colorectal screening. Recommend repeat CRC screening (stool or colonoscopy) at the interval determined by previous test. BIOPSIES SHOWED: Colon, descending, biopsy:? Mildly active colitis; melanosis coli. Review of Systems Review of Systems: General: No fevers, malaise, unintentional weight loss Cardiovascular: No chest pain, palpitations, or leg edema Respiratory: +sob. No wheezing, cough GI: +abd pain, +diarrhea, +brbpr. No abdominal pain, nausea, vomiting, diarrhea, constipation, melena, hematochezia : No dysuria, hematuria, increased frequency Neuro: No headaches, weakness, paresthesias Skin: No rashes or lesions PMFSH Past Medical History Medical History Anxiety Breast calcification, right Breast cancer, right Colitis Dermatomyositis Encounter to establish care History of COVID-19 Hypertension Insomnia Invasive ductal carcinoma of right breast Lumbar degenerative disc disease Major depression, chronic Pain in both feet Pancolitis Pancytopenia Pedal edema Port-A-Cath in place Family History Family History Mother No problems noted. Father Breast cancer Bone cancer Brother Substance use disorder Paternal Aunt Breast cancer Surgical History Surgical History History of arthroscopic knee surgery History of section History of cholecystectomy History of fusion of cervical spine History of gastric bypass History of hysterectomy History of tonsillectomy Hx of colonoscopy Status post right breast lumpectomy Social History Social History Household Members: Children Housing: House Are you a primary home care rn to a significant other at home: No Do you presently have visiting nurse or other home services: No Alcohol intake: former Patient Tobacco Use Status: Former Tobacco user Quit Date: 12 yrs ago Tobacco use type: Cigarette e-Cigarette/Vaping Use: Never Used Advance Directives Date on File: 11/28/21 service: No Current occupational status: unemployed and retired Cognitive needs: Yes (cane) Hearing needs: No Vision needs: Yes (glasses) Meds Allergies Allergy/AdvReac Type Severity Reaction Status Date / Time No Known Allergies Allergy Verified 12/27/21 00:53 Active Medications: Current Medications Acetaminophen (Acetaminophen 325 Mg Tablet) 650 mg PO Q6H PRN PRN Reason: Pain, Mild (Pain Scale 1-3) Calcium Carbonate/Cholecalciferol (Calcium + Vitamin D 250 Mg Tablet) 500 mg PO DAILY [facility] Clonidine HCl (Clonidine Hcl 0.2 Mg Tablet) 0.2 mg PO BEDTIME CHELSIE; Protocol Last Admin: 12/14/21 21:30 Dose: 0.2 mg Cyanocobalamin (Cyanocobalamin (Vitamin B-12) 1,000 Mcg Tablet) 1,000 mcg PO BEDTIME CHELSIE Last Admin: 12/14/21 21:31 Dose: 1,000 mcg Diphenhydramine HCl (Diphenhydramine Hcl 25 Mg Tablet) 25 mg PO TID PRN PRN Reason: itching Duloxetine HCl (Duloxetine Hcl 60 Mg Capsule.Dr) 60 mg PO BEDTIME CHELSIE Last Admin: 12/14/21 21:31 Dose: 60 mg Enoxaparin Sodium (Enoxaparin Sodium 40 Mg/0.4 Ml Syringe) 40 mg SUBCUT Q24H CHELSIE Last Admin: 12/14/21 21:31 Dose: 40 mg Lactated Ringer's (Lr) 1,000 mls @ 125 mls/hr IVCONT .Q8H CHELSIE Last Admin: 12/15/21 01:51 Dose: 125 mls/hr Lactated Ringer's (Lr) 1,000 mls @ 100 mls/hr IVCONT .Q10H CHELSIE Last Admin: 12/15/21 06:45 Dose: 100 mls/hr Ceftriaxone Sodium 1 gm/ (Sodium Chloride) 50 mls @ 100 mls/hr IV Q24H CHELSIE Last Admin: 12/15/21 06:45 Dose: 100 mls/hr Azithromycin 500 mg/ Sodium (Chloride) 250 mls @ 125 mls/hr IV Q24H [facility] Lidocaine/Diphenhydr/Alum/Mg/Simeth (Mag&Al/Sim/Diphenhyd/Lidocaine 10 Ml Oral.Susp) 10 ml PO QID [facility] Last Admin: 12/14/21 21:32 Dose: Not Given Loperamide HCl (Loperamide Hcl 2 Mg Capsule) 2 mg PO Q4H PRN PRN Reason: Diarrhea Metoprolol Succinate (Metoprolol Succinate Er 50 Mg Tab.Er.24h) 50 mg PO DAILY [facility]; Protocol Ondansetron HCl (Ondansetron Hcl 4 Mg/2 Ml Vial) 4 mg IVPUSH Q8H PRN PRN Reason: Nausea and Vomiting Prednisone (Prednisone 20 Mg Tablet) 40 mg PO DAILY [facility] Sodium Chloride (0.9 % Sodium Chloride Flush 3 Ml Syringe) 3 ml IVFLUSH QSHIFT [facility] Last Admin: 12/14/21 23:11 Dose: 3 ml Vitamin D (Cholecalciferol (Vitamin D3) 25 Mcg Tablet) 25 mcg PO DAILY [facility] Home Medications Medication Instructions Recorded Confirmed Last Taken Type ketoconazole 2 % shampoo 1 appl topical 2XW 09/28/21 12/29/21 Unknown History cyanocobalamin (vitamin B-12) 1,000 mcg PO BEDTIME 10/12/21 12/29/21 Unknown History 1,000 mcg capsule calcium carbonate 600 mg-vitamin 1 tab PO DAILY 10/31/21 12/29/21 Unknown History D3 10 mcg (400 unit) tablet prednisone 10 mg tablet 40 mg PO DAILY 11/08/21 12/29/21 12/14/21 History cholecalciferol (vitamin D3) 25 25 mcg PO DAILY 11/23/21 12/29/21 Unknown History mcg (1,000 unit) tablet alendronate 70 mg tablet 70 mg PO FR@0600 11/29/21 12/29/21 12/08/21 History ondansetron 8 mg disintegrating 8 mg PO Q8H PRN Nausea 11/29/21 12/29/21 Unknown History tablet azathioprine 50 mg tablet 50 mg PO BID 12/29/21 12/29/21 Unknown History betamethasone dipropionate 0.05 % 1 appl topical BID 12/29/21 12/29/21 Unknown History lotion hydrochlorothiazide 12.5 mg tablet 12.5 mg PO DAILY 12/29/21 12/29/21 Unknown History lisinopril 20 mg tablet 20 mg PO DAILY 12/29/21 12/29/21 Unknown History Physical Exam Vital Signs: Vital Signs: Last Vital Signs Temp 98.1 F 12/14/21 23:13 Pulse 89 12/14/21 23:13 Resp 14 12/14/21 23:13 BP 107/52 L 12/14/21 23:13 Pulse Ox 97 12/14/21 23:13 O2 Del Method 12/14/21 23:13 BMI result Body Mass Index 42.0 Const: General: no acute distress and ill appearing Nutritional Appearance: obese Orientation/consciousness: patient oriented x3 Limitations: no limitations HEENT: Head: Yes normal to inspection Ears: hearing grossly normal bilaterally Eyes: Sclerae: sclerae normal Pupils: Equal, round and reactive pupils present Neck: Neck: Yes normal visual inspection Chest: Chest palpation & inspection: normal inspection of the chest Resp: Effort & Inspection: normal respiratory effort Auscultation: clear to auscultation bilaterally Cardio: Palpation: normal PMI Rate: regular rate Rhythm: regular rhythm Heart sounds: S1 normal heart sound present, S2 normal heart sound present and no murmurs GI: Palpation (GI): Soft to palpation, Tenderness to palpation present (GI) (Mild diffuse abdominal tenderness) and No hepatosplenomegaly present Auscultation: normal bowel sounds Rectal Exam - Female: deferred Skin: General skin exam: no rashes or lesions noted Neuro: General: patient oriented x3, gait normal and moves all extremities Cranial nerves: Yes Equal, round and reactive pupils present Psych: Appearance: grossly normal Mental Status: mental status grossly normal Results Labs CBC & Chem 7: 12/19/21 05:31 12/19/21 09:34 Labs: Short CBC 12/15/21 Range/Units 06:53 Hgb 8.0 L (12.0-16.0) g/dl Hct 26.2 L (37.0-47.0) % Plt Count 78 L (160-400) X10*3/uL Urine 12/14/21 Range/Units 19:33 Urine Color Dark Yellow Urine Appearance Clear Urine pH 6.5 (5.0-9.0) Ur Specific [place] >= 1.030 H (1.005-1.025) Urine Protein 30 (1+) H (Neg-Trace) mg/dL Urine Glucose (UA) Negative (Negative) mg/dL Assessment and Plan (1) Pancolitis: Status: Inactive (2) Diarrhea: Qualifiers: Diarrhea type: unspecified type Qualified Code(s): R19.7 - Diarrhea, unspecified Status: Acute Plan 66 YF with dermatomyositis on prednisone taper, anxiety, insomnia, asthma, depression, DCIS right breast on carboplatin/docetaxel/Herceptin/pertuzumab based chemotherapy started on 11/16 s/p lumpectomy seen at [facility] on 12/14/21 with 1 day hx of BRBPR. Pt stated she has copious diarrhea since starting chemo 4 weeks ago and complaining of bright red blood since yesterday. Abd CT scan showed pancolitis. Pancolitis may be related to chemo, infectious colitis or ischemic colitis due to dehydration from diarhea Stool studies negative for CDiff, positive for enteropathogenic E Coli. RECOMMENDATIONS: 1. Follow H & H daily 2. Hydrocortisone cream for hemorrhoids (pt had large hemorrhoids seen on recent colonoscopy) 3. Discussed with Dr Hernández - dose of chemo to be reduced with her next cycle if pt continues to have diarrhea. Procedures Date of Service Date of Service: 01/15/22
[2021-12-15 07:24] LABS: Anion Gap 13 (12-20); Blood Urea Nitrogen 9 mg/dL (9-16); Calcium 8.1 mg/dL (8.4-10.2); Carbon Dioxide 28 mmol/L (22-29); Chloride 104 mmol/L (96-108); Creatinine Clr Calc Pharmacy 101.2; Estimated Glomerular Filt Rate > 60; Glucose Random 105 mg/dL (60-115); Magnesium 1.5 mg/dL (1.6-2.6); Potassium 3.4 mmol/L (3.3-5.1); Sodium 142 mmol/L (135-145)
[2021-12-15 07:47] LABS: Atypical Lymphs Percent Manual 2 % (0-6); Band Neutrophils Percent 18 % (3-5); Lymphocytes Percent Manual 11 % (20-40); Metamyelocytes Percent 3 %; Monocytes Percent Manual 7 % (2-11); Neutrophils Percent Manual 59 % (45-73)
[2021-12-15 07:49] LABS: Dohle Bodies PRESENT; Hypochromasia 1+ (5-14) /OIF; Ovalocytes 1+ (5-14) /OIF; Platelet Estimate DECREASED (NORMAL); Platelet Morphology Comment NORMAL; RBC Morphology NOTED; Tear Drop Cells 1+ (0-2) /OIF
[2021-12-15 07:50] LABS: Atypical Lymph Absolute Manual 0.1 x10*3/uL; Lymphocytes Absolute Manual 0.8 X10*3/uL (1.2-4.9); Metamyelocytes Absolute 0.2 X10*3/uL; Monocytes Absolute Manual 0.5 X10*3/uL (0.1-1.2); Neutrophils Absolute Manual 5.5 X10*3/uL (2.0-8.3); White Blood Count 7.1 X10*3/uL (4.8-10.8)
[2021-12-15] MEDS: Calcium + Vitamin D 250 MG TABLET 500 MG PO (09:05)
[2021-12-15] MEDS: Metoprolol Succinate ER 50 MG TAB.ER.24H PO (09:05)
[2021-12-15] MEDS: predniSONE 20 MG TABLET 40 MG PO (09:05)
[2021-12-15] MEDS: Cholecalciferol (Vitamin D3) 25 MCG TABLET PO (09:05)
[2021-12-15] MEDS: Azithromycin 500 MG in 0.9 % Sodium Chloride 250 ML 125 MG IV (09:06)
[2021-12-15] MEDS: Mag&Al/Sim/Diphenhyd/Lidocaine 10 ML ORAL.SUSP PO ×4 (09:06→22:07)
[2021-12-15] MEDS: 0.9 % Sodium Chloride Flush 3 ML SYRINGE IVFLUSH ×2 (09:06→22:14)
[2021-12-15 10:19] LABS: E. coli EPEC Detected (Not Detect.)
[2021-12-15 10:20] LABS: Adenovirus F 40/41 Not Detected (Not Detect.); Astrovirus Not Detected (Not Detect.); Campylobacter Not Detected (Not Detect.); Cryptosporidium Not Detected (Not Detect.); Cyclospora cayetanensis Not Detected (Not Detect.); E. coli EAEC Not Detected (Not Detect.); E. coli ETEC Not Detected (Not Detect.); E. coli STEC Not Detected (Not Detect.); Entamoeba histolytica Not Detected (Not Detect.); Giardia lamblia Not Detected (Not Detect.); Norovirus GI/GII Not Detected (Not Detect.); Plesiomonas shigelloides Not Detected (Not Detect.); Rotavirus A Not Detected (Not Detect.); Salmonella Not Detected (Not Detect.); Shigella sp./EIEC Not Detected (Not Detect.); Vibrio Not Detected (Not Detect.); Vibrio Cholerae Not Detected (Not Detect.); Yersinia enterocolitica Not Detected (Not Detect.)
[2021-12-15 10:25] LABS: Sapovirus Not Detected (Not Detect.)
--- NOTE | 2021-12-15 11:23 | P.PNIM_ITS ---
Subjective Subjective Date of Service: 12/15/21 Interval History: Pt seen in follow up for BRBPR with pancolitis and sob with fluid overload Pt reports two episodes bloody diarrhea this morning. 6/10 lower abdominal discomfort improves following BM. Stool studies negative for CDiff, positive for enteropathic e.coli. Reports SOB has improved following lasix. Still significant ble edema. Review of Systems General: No fevers, malaise, unintentional weight loss Cardiovascular: No chest pain, palpitations, or leg edema Respiratory: No shortness of breath, wheezing, cough GI: +abdominal pain, +diarrhea, +BRBPR. No nausea, vomiting, constipation, melena : No dysuria, hematuria, incrased frequency Neuro: No headaches, weakness, paresthesias Skin: No rashes or lesions Physical Exam Vital Signs: Vital Signs: Last Vital Signs Temp 97.7 F 12/15/21 08:00 Pulse 137 H 12/15/21 08:00 Resp 20 12/15/21 08:00 BP 151/90 H 12/15/21 08:00 Pulse Ox 98 12/15/21 08:00 O2 Del Method 12/15/21 08:00 BMI result Body Mass Index 42.0 Constitutional - Awake and Alert, No apparent distress Eyes - PERRLA, EOMI Mouth-lips dry Cardiovascular - S1S2, RRR, No edema Respiratory - Normal lung expansion, Normal respiratory effort, No respiratory distress, CTA bilaterally Gastrointestinal - Mild ttp lower quadrants. ND; +BS; No rebound or guarding Extremities - no calf tenderness bilaterally, no swelling Skin - Warm/Dry. Facial swelling with dry skin and erythema most prominant around eyes Neurological - Alert & oriented x3, No focal deficit Psychological - Appropriate affect Objective Data Active Medications Acetaminophen (Acetaminophen 325 Mg Tablet) 650 mg PO Q6H PRN PRN Reason: Pain, Mild (Pain Scale 1-3) Calcium Carbonate/Cholecalciferol (Calcium + Vitamin D 250 Mg Tablet) 500 mg PO DAILY [facility] Last Admin: 12/15/21 09:05 Dose: 500 mg Documented By: SURESH Clonidine HCl (Clonidine Hcl 0.2 Mg Tablet) 0.2 mg PO BEDTIME [facility]; Protocol Last Admin: 12/14/21 21:30 Dose: 0.2 mg Documented By: LAURA Cyanocobalamin (Cyanocobalamin (Vitamin B-12) 1,000 Mcg Tablet) 1,000 mcg PO BEDTIME [facility] Last Admin: 12/14/21 21:31 Dose: 1,000 mcg Documented By: LAURA Diphenhydramine HCl (Diphenhydramine Hcl 25 Mg Tablet) 25 mg PO TID PRN PRN Reason: itching Duloxetine HCl (Duloxetine Hcl 60 Mg Capsule.Dr) 60 mg PO BEDTIME [facility] Last Admin: 12/14/21 21:31 Dose: 60 mg Documented By: LAURA Enoxaparin Sodium (Enoxaparin Sodium 40 Mg/0.4 Ml Syringe) 40 mg SUBCUT Q24H [facility] Last Admin: 12/14/21 21:31 Dose: 40 mg Documented By: LAURA Lactated Ringer's (Lr) 1,000 mls @ 125 mls/hr IVCONT .Q8H [facility] Last Admin: 12/15/21 01:51 Dose: 125 mls/hr Documented By: LAURA Lactated Ringer's (Lr) 1,000 mls @ 100 mls/hr IVCONT .Q10H [facility] Last Admin: 12/15/21 06:45 Dose: 100 mls/hr Documented By: LAURA Ceftriaxone Sodium 1 gm/ (Sodium Chloride) 50 mls @ 100 mls/hr IV Q24H [facility] Last Infusion: 12/15/21 09:17 Dose: 0 mls/hr Documented By: SURESH Azithromycin 500 mg/ Sodium (Chloride) 250 mls @ 125 mls/hr IV Q24H [facility] Last Admin: 12/15/21 09:06 Dose: 125 mls/hr Documented By: SURESH Lidocaine/Diphenhydr/Alum/Mg/Simeth (Mag&Al/Sim/Diphenhyd/Lidocaine 10 Ml Oral.Susp) 10 ml PO QID [facility] Last Admin: 12/15/21 09:06 Dose: 10 ml Documented By: SURESH Loperamide HCl (Loperamide Hcl 2 Mg Capsule) 2 mg PO Q4H PRN PRN Reason: Diarrhea Metoprolol Succinate (Metoprolol Succinate Er 50 Mg Tab.Er.24h) 50 mg PO DAILY [facility]; Protocol Last Admin: 12/15/21 09:05 Dose: 50 mg Documented By: SURESH Ondansetron HCl (Ondansetron Hcl 4 Mg/2 Ml Vial) 4 mg IVPUSH Q8H PRN PRN Reason: Nausea and Vomiting Prednisone (Prednisone 20 Mg Tablet) 40 mg PO DAILY [facility] Last Admin: 12/15/21 09:05 Dose: 40 mg Documented By: SURESH Sodium Chloride (0.9 % Sodium Chloride Flush 3 Ml Syringe) 3 ml IVFLUSH QSHIFT [facility] Last Admin: 12/15/21 09:06 Dose: 3 ml Documented By: SURESH Vitamin D (Cholecalciferol (Vitamin D3) 25 Mcg Tablet) 25 mcg PO DAILY [facility] Last Admin: 12/15/21 09:05 Dose: 25 mcg Documented By: SURESH Labs CBC & Chem 7: 12/15/21 06:53 12/15/21 06:53 Labs: Laboratory Results - last 24 hr 12/14/21 12/14/21 12/14/21 10:28 16:29 16:29 MCV MCH MCHC RDW Plt Count MPV Immature Gran % (Auto) Neut % (Auto) Lymph % (Auto) [place] % (Auto) Eos % (Auto) Baso % (Auto) Lymph # (Auto) [place] # (Auto) Eos # (Auto) Baso # (Auto) Abs Immat Gran (auto) Absolute Neuts (auto) Absolute Nucleated RBC Nucleated RBC % (auto) Neutrophils % (Manual) Band Neutrophils % Lymphocytes % (Manual) Atypical Lymphs % (Man) Monocytes % (Manual) Metamyelocytes % Abs Neuts (Manual) Lymphocytes # (Manual) Atyp Lymphs # (Manual) Monocytes # (Manual) Metamyelocytes # Dohle Bodies Platelet Estimate Plt Morphology Comment RBC Morphology Hypochromasia Tear Drop Cells Ovalocytes Anion Gap Estim Creat Clear Calc Estimated GFR Random Glucose Calcium Magnesium B-Natriuretic Peptide Urine Color Urine Appearance Urine pH Ur Specific Melvin Urine Protein Urine Glucose (UA) Urine Ketones Urine Blood Urine Nitrite Ur Leukocyte Esterase Urine RBC Urine WBC Ur Squamous Epith Cells Ur Transition Epith Cell Ur Renal Epithelial Cell Urine Bacteria Hyaline Casts Stool Occult Blood POSITIVE Stl C. cayetanensis PCR Not Detected Stool Rotavirus A PCR Not Detected Stl Adenov F 40/41 PCR Not Detected Stool Astrovirus (PCR) Not Detected Stool Campylobacter PCR Not Detected Stool Cryptosporidium PCR Not Detected Stl Sh Tox Pr E STEC PCR Not Detected Stool E coli O157 PCR Not applicable Stl Enterotoxigenic E PCR Not Detected Stool EPEC (PCR) Detected A Stool EAEC (PCR) Not Detected Stl E. histolytica PCR Not Detected Stool Giardia Lamblia PCR Not Detected Stl P. shigelloides PCR Not Detected Stool Salmonella PCR Not Detected Stool Sapovirus (PCR) Not Detected Stl Shigella/EIEC PCR Not Detected St Y.enterocolitica PCR Not Detected Stool Vibrio (PCR) Not Detected Stl Vibrio cholerae PCR Not Detected Stl Norovirus GI/GII PCR Not Detected C. difficile Tox B Gene COVID-19 (JEN) COVID-19 Clin Com Blood Type A Positive Antibody Screen NEGATIVE 12/14/21 12/14/21 12/14/21 16:29 19:33 23:10 MCV MCH MCHC RDW Plt Count MPV Immature Gran % (Auto) Neut % (Auto) Lymph % (Auto) [place] % (Auto) Eos % (Auto) Baso % (Auto) Lymph # (Auto) [place] # (Auto) Eos # (Auto) Baso # (Auto) Abs Immat Gran (auto) Absolute Neuts (auto) Absolute Nucleated RBC Nucleated RBC % (auto) Neutrophils % (Manual) Band Neutrophils % Lymphocytes % (Manual) Atypical Lymphs % (Man) Monocytes % (Manual) Metamyelocytes % Abs Neuts (Manual) Lymphocytes # (Manual) Atyp Lymphs # (Manual) Monocytes # (Manual) Metamyelocytes # Dohle Bodies Platelet Estimate Plt Morphology Comment RBC Morphology Hypochromasia Tear Drop Cells Ovalocytes Anion Gap Estim Creat Clear Calc Estimated GFR Random Glucose Calcium Magnesium B-Natriuretic Peptide 65 Urine Color Dark Yellow Urine Appearance Clear Urine pH 6.5 Ur Specific Melvin >= 1.030 H Urine Protein 30 (1+) H Urine Glucose (UA) Negative Urine Ketones Negative Urine Blood Trace H Urine Nitrite Negative Ur Leukocyte Esterase Negative Urine RBC 3-5 H Urine WBC 0-5 Ur Squamous Epith Cells 3-5 Ur Transition Epith Cell Present Ur Renal Epithelial Cell Present Urine Bacteria 2+ Hyaline Casts 0-2 Stool Occult Blood Stl C. cayetanensis PCR Stool Rotavirus A PCR Stl Adenov F 40/41 PCR Stool Astrovirus (PCR) Stool Campylobacter PCR Stool Cryptosporidium PCR Stl Sh Tox Pr E STEC PCR Stool E coli O157 PCR Stl Enterotoxigenic E PCR Stool EPEC (PCR) Stool EAEC (PCR) Stl E. histolytica PCR Stool Giardia Lamblia PCR Stl P. shigelloides PCR Stool Salmonella PCR Stool Sapovirus (PCR) Stl Shigella/EIEC PCR St Y.enterocolitica PCR Stool Vibrio (PCR) Stl Vibrio cholerae PCR Stl Norovirus GI/GII PCR C. difficile Tox B Gene NEGATIVE COVID-19 (JEN) COVID-19 Clin Com Blood Type Antibody Screen 12/15/21 12/15/21 12/15/21 06:02 06:53 06:53 MCV 90.7 MCH 27.7 MCHC 30.5 L RDW 18.8 H Plt Count 78 L MPV 11.2 Immature Gran % (Auto) Cancelled Neut % (Auto) Cancelled Lymph % (Auto) Cancelled [place] % (Auto) Cancelled Eos % (Auto) Cancelled Baso % (Auto) Cancelled Lymph # (Auto) Cancelled [place] # (Auto) Cancelled Eos # (Auto) Cancelled Baso # (Auto) Cancelled Abs Immat Gran (auto) Cancelled Absolute Neuts (auto) Cancelled Absolute Nucleated RBC 0.080 H Nucleated RBC % (auto) 1.1 H Neutrophils % (Manual) 59 Band Neutrophils % 18 H Lymphocytes % (Manual) 11 L Atypical Lymphs % (Man) 2 Monocytes % (Manual) 7 Metamyelocytes % 3 Abs Neuts (Manual) 5.5 Lymphocytes # (Manual) 0.8 L Atyp Lymphs # (Manual) 0.1 Monocytes # (Manual) 0.5 Metamyelocytes # 0.2 Dohle Bodies PRESENT Platelet Estimate DECREASED Plt Morphology Comment NORMAL RBC Morphology NOTED Hypochromasia 1+ (5-14) Tear Drop Cells 1+ (0-2) Ovalocytes 1+ (5-14) Anion Gap Estim Creat Clear Calc Estimated GFR Random Glucose Calcium Magnesium 1.5 L B-Natriuretic Peptide Urine Color Urine Appearance Urine pH Ur Specific Melvin Urine Protein Urine Glucose (UA) Urine Ketones Urine Blood Urine Nitrite Ur Leukocyte Esterase Urine RBC Urine WBC Ur Squamous Epith Cells Ur Transition Epith Cell Ur Renal Epithelial Cell Urine Bacteria Hyaline Casts Stool Occult Blood Stl C. cayetanensis PCR Stool Rotavirus A PCR Stl Adenov F 40/41 PCR Stool Astrovirus (PCR) Stool Campylobacter PCR Stool Cryptosporidium PCR Stl Sh Tox Pr E STEC PCR Stool E coli O157 PCR Stl Enterotoxigenic E PCR Stool EPEC (PCR) Stool EAEC (PCR) Stl E. histolytica PCR Stool Giardia Lamblia PCR Stl P. shigelloides PCR Stool Salmonella PCR Stool Sapovirus (PCR) Stl Shigella/EIEC PCR St Y.enterocolitica PCR Stool Vibrio (PCR) Stl Vibrio cholerae PCR Stl Norovirus GI/GII PCR C. difficile Tox B Gene COVID-19 (JEN) Negative COVID-19 Clin Com See Note Blood Type Antibody Screen 12/15/21 06:53 MCV MCH MCHC RDW Plt Count MPV Immature Gran % (Auto) Neut % (Auto) Lymph % (Auto) [place] % (Auto) Eos % (Auto) Baso % (Auto) Lymph # (Auto) [place] # (Auto) Eos # (Auto) Baso # (Auto) Abs Immat Gran (auto) Absolute Neuts (auto) Absolute Nucleated RBC Nucleated RBC % (auto) Neutrophils % (Manual) Band Neutrophils % Lymphocytes % (Manual) Atypical Lymphs % (Man) Monocytes % (Manual) Metamyelocytes % Abs Neuts (Manual) Lymphocytes # (Manual) Atyp Lymphs # (Manual) Monocytes # (Manual) Metamyelocytes # Dohle Bodies Platelet Estimate Plt Morphology Comment RBC Morphology Hypochromasia Tear Drop Cells Ovalocytes Anion Gap 13 Estim Creat Clear Calc 101.2 Estimated GFR > 60 Random Glucose 105 Calcium 8.1 L Magnesium B-Natriuretic Peptide Urine Color Urine Appearance Urine pH Ur Specific Melvin Urine Protein Urine Glucose (UA) Urine Ketones Urine Blood Urine Nitrite Ur Leukocyte Esterase Urine RBC Urine WBC Ur Squamous Epith Cells Ur Transition Epith Cell Ur Renal Epithelial Cell Urine Bacteria Hyaline Casts Stool Occult Blood Stl C. cayetanensis PCR Stool Rotavirus A PCR Stl Adenov F 40/41 PCR Stool Astrovirus (PCR) Stool Campylobacter PCR Stool Cryptosporidium PCR Stl Sh Tox Pr E STEC PCR Stool E coli O157 PCR Stl Enterotoxigenic E PCR Stool EPEC (PCR) Stool EAEC (PCR) Stl E. histolytica PCR Stool Giardia Lamblia PCR Stl P. shigelloides PCR Stool Salmonella PCR Stool Sapovirus (PCR) Stl Shigella/EIEC PCR St Y.enterocolitica PCR Stool Vibrio (PCR) Stl Vibrio cholerae PCR Stl Norovirus GI/GII PCR C. 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 1-Pancolitis r/t chemotherapy -Diarrhea ongoing 4 weeks since chemo initiated with BRBPR x 1 day -CT abd/pelvis with pancolitis -Stool studies negative for c.diff. POSITIVE for ENTEROPATHIC E.COLI. On azithromycin which should effectively treat -GI following. -Clear liquids for bowel rest -Immodium prn -Hold IVF for blood transfusion -Continue following CBC and BMP 2-Blood loss anemia -Secondary to pancolitis -Slight drop in H/H 8.0/26.2 from 8.2/27.0% yesterday. Discussed with Dr. Hernández. Will transfuse 1 unit packed RBC due to H/H drop, ongoing bleeding in pt on chemotherapy. T&S completed. Will complete informed consent with pt. Tylenol and benadryl to be given prior to infusion. -Follow CBC and BMP am 3-Acute dehydration secondary to diarrhea -Hold IVF for blood transfusion -Renal fx and lytes normal. Follow BMP 4-SOB- resolved with IV diuresis -BNP 68. No concern for HF. Plerual effusion initially seen on CXR causing SOB. Continues with 3+ pitting edema but this has been chronic with prednisone use -Concern for infiltrates. Continue azithromycin -Daily weights -Monitor I&O 5-Oral candidiasis secondary to prolonged steroid use -Nystatin swish and swallow [id number] -Continue home meds 7-Depression/anxiety -Continue duloxetine. 8-Dermatomyositis -Continue prednisone per rheumatology 9-DCIS right breath on chemotherapy as above -Continue plan per oncology DVT prophylaxis- lovenox Full code Pt requires ongoing inpatient stay for management of pancolitis with BRBPR and stool studies showing e.coli Also requires furhter monitoring for fluid reaccumulation in the lung following diuresis though no evidence of HF at this time. Quality Stroke Does the patient have a stroke diagnosis?: No VTE Prior VTE?: No VTE Risk Level:: Medical - moderate - high VTE Device Contraindication: Treatment Not Indicated VTE Drug Contraindication: N/A - Med Ordered
--- NOTE | 2021-12-15 12:57 | P.CNHO_ITS ---
Subjective - Subjective Chief complaint: Consult for: Breast cancer, on chemotherapy, colitis, pancytopenia. Consult date: 12/15/21 Requesting Physician: Fede. Primary Care Provider: THA Cast Family Provider: Padmini. Medical Summary: DIAGNOSIS: DERMATOMYOSITIS. BREAST CANCER. ON CHEMOTHERAPY. GASTROENTERITIS. HPI - Consult Narrative Reason for consult: Consult for: 1. Colitis related to chemotherapy. Breast cancer. 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 She is s/p lumpectomy. She presented to ED today for evaluation of BRBPR ongoing for 1 days. Stated has had copious diarrhea since starting chemo 4 weeks ago, but first noticed bright red blood yesterday and continued into today. Also reporting SOB for one week. Has history of asthma but states this has been controlled since quitting smoking 12 years ago. Feels like air hunger, no wheezing. Mild tachypnea 23, vitals otherwise stable without hypoxia. WBC 3.6. H/H 8.2/27.0% (baseline 9.4/30.3%). Renal function stable, electrolytes normal. UA with high SG, 1+ protein. CT abd/pelvis showing pancolitis with small amount ascites. Chest CTA negative for PE. New small left pleural effusion and atelectasis left lung base vs infiltrate. Small heterogenous RHODA nodules in peribronchial distribution, ?r/t airway disease. Head CT negative. Review of Systems Review of Systems: General: No fevers, malaise, unintentional weight loss Cardiovascular: No chest pain, palpitations, or leg edema Respiratory: +sob. No wheezing, cough GI: +abd pain, +diarrhea, +brbpr. No abdominal pain, nausea, vomiting, diarrhea, constipation, melena, hematochezia : No dysuria, hematuria, increased frequency Neuro: No headaches, weakness, paresthesias Skin: No rashes or lesions PMFSH Medical History: anxiety, insomnia, asthma, depression, Breast calcification, right Breast cancer, right Colitis Dermatomyositis Encounter to establish care History of COVID-19 Hypertension Insomnia Invasive ductal carcinoma of right breast Lumbar degenerative disc disease Major depression, chronic Pain in both feet Pedal edema Port-A-Cath in place Review of Systems - Constitutional Reports system reviewed and no additional complaints, except as documented, Reports fatigue, Reports malaise, Reports poor appetite, Reports weakness, Reports weight loss, Denies fever(s) - Eyes Reports system reviewed and no additional complaints, except as documented - ENT Reports system reviewed and no additional complaints, except as documented - Cardiovascular Reports system reviewed and no additional complaints, except as documented - Respiratory Reports no additional respiratory complaints - Gastrointestinal Reports system reviewed and no additional complaints, except as documented - Genitourinary Reports no additional female genitourinary complaints - Musculoskeletal Reports system reviewed and no additional complaints, except as documented - Integumentary/Breasts Skin/Breast: Reports no additional skin complaints - Neurologic Reports system reviewed and no additional complaints, except as documented - Psychiatric Reports system reviewed and no additional complaints, except as documented - Endocrine Reports no additional endocrine complaints - Hematologic/Lymphatic Reports system reviewed and no additional complaints, except as documented - Allergic/Immunologic Reports system reviewed and no additional complaints, except as documented Oncology Screenings - ECOG Performance Status ECOG Performance Status: 2 [facility] Medical History: Medical History (Last Reviewed 12/14/21 @ 20:03 by CHI Carnes) Anxiety Breast calcification, right Breast cancer, right Colitis Dermatomyositis Encounter to establish care History of COVID-19 Hypertension Insomnia Invasive ductal carcinoma of right breast Lumbar degenerative disc disease Major depression, chronic Pain in both feet Pedal edema Port-A-Cath in place Functional capacity: uses cane/walker Patient : No Family History: Family History (Last Reviewed 12/14/21 @ 20:03 by CHI Carnes) Mother No problems noted. Father Breast cancer Bone cancer Brother Substance use disorder Paternal Aunt Breast cancer Surgical History: Surgical History (Last Reviewed 12/14/21 @ 20:03 by CHI Carnes) History of arthroscopic knee surgery History of section History of cholecystectomy History of fusion of cervical spine History of gastric bypass History of hysterectomy History of tonsillectomy Hx of colonoscopy Status post right breast lumpectomy Social History: Social History (Last Reviewed 12/14/21 @ 20:03 by CHI Carnes) Living Situation History: Household Members: Family Housing: House Are you a primary rn palliative care to a significant other at home: No Do you presently have visiting nurse or other home services: No Tobacco History: Patient Tobacco Use Status: Former Tobacco user Tobacco use type: Cigarette Smoke Quit Date: 12 yrs ago e-Cigarette/Vaping Use: Never Used Advance Directives: Advance Directives Date on File: 11/28/21 Occupation Assessmet: service: No Current occupational status: unemployed Current occupational status: retired Home Medications and Allergies Current Medications: Current Medications Acetaminophen (Acetaminophen 325 Mg Tablet) 650 mg PO Q6H PRN PRN Reason: Pain, Mild (Pain Scale 1-3) Calcium Carbonate/Cholecalciferol (Calcium + Vitamin D 250 Mg Tablet) 500 mg PO DAILY [facility] Last Admin: 12/15/21 09:05 Dose: 500 mg Clonidine HCl (Clonidine Hcl 0.2 Mg Tablet) 0.2 mg PO BEDTIME [facility]; Protocol Last Admin: 12/14/21 21:30 Dose: 0.2 mg Cyanocobalamin (Cyanocobalamin (Vitamin B-12) 1,000 Mcg Tablet) 1,000 mcg PO BEDTIME [facility] Last Admin: 12/14/21 21:31 Dose: 1,000 mcg Diphenhydramine HCl (Diphenhydramine Hcl 25 Mg Tablet) 25 mg PO TID PRN PRN Reason: itching Duloxetine HCl (Duloxetine Hcl 60 Mg Capsule.Dr) 60 mg PO BEDTIME [facility] Last Admin: 12/14/21 21:31 Dose: 60 mg Enoxaparin Sodium (Enoxaparin Sodium 40 Mg/0.4 Ml Syringe) 40 mg SUBCUT Q24H [facility] Last Admin: 12/14/21 21:31 Dose: 40 mg Lactated Ringer's (Lr) 1,000 mls @ 125 mls/hr IVCONT .Q8H [facility] Last Admin: 12/15/21 01:51 Dose: 125 mls/hr Lactated Ringer's (Lr) 1,000 mls @ 100 mls/hr IVCONT .Q10H [facility] Last Admin: 12/15/21 06:45 Dose: 100 mls/hr Ceftriaxone Sodium 1 gm/ (Sodium Chloride) 50 mls @ 100 mls/hr IV Q24H [facility] Last Infusion: 12/15/21 09:17 Dose: Infused Azithromycin 500 mg/ Sodium (Chloride) 250 mls @ 125 mls/hr IV Q24H [facility] Last Infusion: 12/15/21 11:32 Dose: Infused Lidocaine/Diphenhydr/Alum/Mg/Simeth (Mag&Al/Sim/Diphenhyd/Lidocaine 10 Ml Oral.Susp) 10 ml PO QID [facility] Last Admin: 12/15/21 09:06 Dose: 10 ml Loperamide HCl (Loperamide Hcl 2 Mg Capsule) 2 mg PO Q4H PRN PRN Reason: Diarrhea Metoprolol Succinate (Metoprolol Succinate Er 50 Mg Tab.Er.24h) 50 mg PO DAILY [facility]; Protocol Last Admin: 12/15/21 09:05 Dose: 50 mg Ondansetron HCl (Ondansetron Hcl 4 Mg/2 Ml Vial) 4 mg IVPUSH Q8H PRN PRN Reason: Nausea and Vomiting Prednisone (Prednisone 20 Mg Tablet) 40 mg PO DAILY [facility] Last Admin: 12/15/21 09:05 Dose: 40 mg Sodium Chloride (0.9 % Sodium Chloride Flush 3 Ml Syringe) 3 ml IVFLUSH QSHIFT [facility] Last Admin: 12/15/21 09:06 Dose: 3 ml Vitamin D (Cholecalciferol (Vitamin D3) 25 Mcg Tablet) 25 mcg PO DAILY [facility] Last Admin: 12/15/21 09:05 Dose: 25 mcg Home Medications Medication Instructions Recorded Confirmed Type ketoconazole 2 % shampoo 1 appl topical 2XW 09/28/21 12/14/21 History cyanocobalamin (vitamin B-12) 1,000 mcg PO BEDTIME 10/12/21 12/14/21 History 1,000 mcg capsule lutein 40 mg capsule 40 mg PO DAILY 10/30/21 12/14/21 History calcium carbonate 600 mg-vitamin 1 tab PO DAILY 10/31/21 12/14/21 History D3 10 mcg (400 unit) tablet prednisone 10 mg tablet 40 mg PO DAILY 11/08/21 12/14/21 History betamethasone dipropionate 0.05 % 1 appl topical BID PRN psorias 11/23/21 12/14/21 History lotion flare up cholecalciferol (vitamin D3) 25 25 mcg PO DAILY 11/23/21 12/14/21 History mcg (1,000 unit) tablet alendronate 70 mg tablet 70 mg PO FR@0600 11/29/21 12/14/21 History ondansetron 8 mg disintegrating 8 mg PO Q8H PRN Nausea 11/29/21 12/14/21 History tablet Allergies Allergy/AdvReac Type Severity Reaction Status Date / Time No Known Allergies Allergy Verified 12/11/21 15:41 Physical Exam Vital signs: Vital Signs Temp 97.6 F 12/15/21 12:00 Pulse 109 H 12/15/21 12:00 Resp 18 12/15/21 12:00 BP 124/74 12/15/21 12:00 Pulse Ox 98 12/15/21 12:00 O2 Del Method 12/15/21 12:00 Intake & Output 12/14/21 12/15/21 12/15/21 18:59 06:59 18:59 Intake Total 1000 / 1800 800 / 1800 300 / 300 Balance 1000 / 1800 800 / 1800 300 / 300 Intake: Intake, IV Amount 1000 / 1800 800 / 1800 300 / 300 0.9 % Sodium Chloride 1,000 ml 1000 / 1000 @ 999 mls/hr IV .Q1H1M [facility] Rx#: [id number] Azithromycin 500 mg In 0.9 % 250 / 250 Sodium Chloride 250 ml @ 125 mls/hr IV Q24H [facility] Rx#: [id number] cefTRIAXone sodium 1 gm In 0.9 50 / 50 % Sodium Chloride 50 ml @ 100 mls/hr IV Q24H CHEL[facility] Rx#: [id number] Lactated Ringers 1,000 ml @ 125 800 / 800 mls/hr IVCONT .Q8H [facility] Rx#: [id number] Other: Number of Unmeasured Voids 3 Urine Bathroom Last Bowel Movement 12/15/21 Weight 107.726 kg Weight 107.726 kg - Constitutional Present: moderate distress - Routine HEENT Exam Head: Present: normal inspection, normocephalic ENT: Present: mucous membranes moist - Routine Neck Exam Present: supple - Routine Respiratory Exam Present: CTAB - Routine Abdominal Exam Present: soft, tenderness - Routine Extremities Exam Present: nontender - Routine Skin Exam Present: intact - Routine Neurological Exam Present: alert, oriented X3 - Detailed Neurological Exam: Coma Scale Eye Opening: Spontaneous (4) Verbal Response: Oriented (5) Motor Response: Obeys commands (6) Karina Coma Scale Total: 15 Hem/Onc Consult Result - Labs CBC & Chem 7: 12/16/21 05:43 12/16/21 05:43 Labs: Short CBC 12/15/21 Range/Units 06:53 WBC 7.1 (4.8-10.8) X10*3/uL Hgb 8.0 L (12.0-16.0) g/dl Hct 26.2 L (37.0-47.0) % Plt Count 78 L (160-400) X10*3/uL BMP 12/15/21 06:53 Sodium 142 Potassium 3.4 Chloride 104 Carbon Dioxide 28 BUN 9 Creatinine 0.66 Calcium 8.1 L Urine 12/14/21 Range/Units 19:33 Urine Color Dark Yellow Urine Appearance Clear Urine pH 6.5 (5.0-9.0) Ur Specific Powers >= 1.030 H (1.005-1.025) Urine Protein 30 (1+) H (Neg-Trace) mg/dL Urine Glucose (UA) Negative (Negative) mg/dL Assessment and Plan Patient Active problem list reviewed?: Yes (1) Pancytopenia Status: Acute Assessment and plan: This is a pleasant 66-year-old lady with recent diagnosis of right breast cancer. Mammogram from 08/08 revealed: Outside studies are now available for comparison from 10/19/2019 and dating to 07/24/2017. The right and left breast findings do not appear to have been present on prior studies and callback is still recommended, as described in the initial study. OVERALL ASSESSMENT: BI-RADS 0 - Incomplete: Needs additional Imaging. RECOMMENDATION: Additional Imaging required. Repeat mammogram from 09/13, with additional views: Subtle increased stromal markings with scattered faint amorphous calcifications medial retro areola right breast. She underwent stereotactic biopsy of the right breast abnormality on 09/20. Pathology revealed: Invasive ductal carcinoma grade 2. ER positive, WY negative, HER2 2+, fish pending. Proliferation index: 12% by Ki-67 immunostain. She has had genetic testing done twice and both times it has come back negative. She had an opinion from Dr. Webb. A lumpectomy was recommended.. She underwent a lumpectomy on 10/12, pathology revealed: Tumor size: 12 mm. Focality: Single focus. Grade: 3. Mitotic score: 2. No DCIS nor LCIS identified. Lymphovascular invasion identified. 1/3 sentinel lymph nodes positive for metastatic tumor: Micro metastases (pN1mi (sn.) Size of micro met: 1.5 mm. ER: Positive. WY: Negative. HER2 Liz 2+, fish positive. Ki-67: Low, 12%. Stage:pT1c. I went over the details of her diagnosis and possible treatment options. Since she has HER2 positive disease with micro metastatic disease to the axilla, she is a candidate for adjuvant systemic chemotherapy. I offered her CHTP. I did touch base with Dr. Felix. He agreed with the chemotherapy agents. He also feels, like Dr. Webb, that in the setting of malignancy related dermatomyositis, treatment of malignancy should help improve her symptoms. Her baseline echocardiogram was done. She had her Port-A-Cath,placed. She was started on the treatment on 11/16. She had some diarrhea earlier a coupe of weeks ago, that resolved after 4 days. She was admitted with BRBPR, most likely related to pancytopenia from chemotherapy. 1-Pancolitis, S/P chemotherapy: Diarrhea ongoing for a few weeks, since chemo initiated with BRBPR x 1 day -CT abd/pelvis revealed: Pancolitis.Small amount of ascites in the pelvis. Other stable findings from November 2021 exam. H/H declined from baseline. Hemoglobin today is down to 8. PLAN: Stool studies: Has Enteropathogenic E.Coli: started on Zithromax. Since she has had chemotherapy and has ongoing GI bleeding, would recommend a blood transfusion. Follow H/H. Renal fx and lytes normal. Mag added. Meanwhile will continue her on a [place] diet. She can take Imodium on a prn basis. Gastroenterology consulted. She did receive some IV hydration however now the fluids are decreased, due to concern for fluid overload. Will decrease her chemotherapy dose to 75% with the next cycle, to ameliorate the GI toxicity. Thank you, Cc: Dr. Felix. Leslie Washington. - Time Spent With Patient Time Spent with Patient (in minutes): 30
[2021-12-15] MEDS: diphenhydrAMINE HCL 25 MG TABLET PO (14:02)
[2021-12-15] MEDS: Acetaminophen 325 MG TABLET PO (14:02)
[2021-12-15] MEDS: diphenhydrAMINE HCL 25 MG CAPSULE PO (14:39)
--- NOTE | 2021-12-15 15:31 | MHC.CM.PN ---
Addendum entered by Kate Perez 12/15/21 15:35: [facility] WILL TRANSPORT HOME AT [place] Original Note: CM MET WITH PATIENT. LIVES IN A SINGLE FAMILY HOME WITH ALYSE,DAUGHTER AND 3 GRANDCHILDREN. USES A WALKER AND CANE AND HAS NO PRIOR SERVICES. + HCP AND COVID VAX X2 WITH PFIZER. PCP IS IKER KELLY.
[2021-12-15] MEDS: Cyanocobalamin (Vitamin B-12) 1,000 MCG TABLET 1000 MCG PO (22:07)
[2021-12-15] MEDS: DULoxetine HCl 60 MG CAPSULE.DR PO (22:07)
[2021-12-15] MEDS: Enoxaparin Sodium 40 MG/0.4 ML SYRINGE SUBCUT (22:08)
[2021-12-15] MEDS: cloNIDine HCL 0.2 MG TABLET PO (22:14)
[2021-12-16] VITALS (8 sets, daily range): BP systolic 120–156; BP diastolic 66–86; PULSE 61–99; RESP 16–19; TEMP 36–37.3; O2SAT 88–99
[2021-12-16] MEDS: Lactated Ringers 1,000 ML 100 ML IVCONT (04:09)
[2021-12-16 06:55] LABS: Hematocrit 28.6 % (37.0-47.0); Hemoglobin 8.6 g/dl (12.0-16.0); Mean Corpuscular HGB Conc 30.1 g/dl (31.0-35.0); Mean Corpuscular Hemoglobin 27.5 pg (27.0-33.0); Mean Corpuscular Volume 91.4 fL (80.0-98.0); Mean Platelet Volume 11.7 fL (9.4-12.3); Red Blood Count 3.13 X10*6/uL (4.20-5.50); Red Cell Distribution Width 19.5 % (11.0-16.0)
[2021-12-16 07:12] LABS: NRBC Pct Auto 1.1 /100WBC (0.0-0.2); Platelet Count 77 X10*3/uL (160-400); WBC ABN SCTR FOR CBC 1
[2021-12-16] MEDS: cefTRIAXone sodium 1 GM in 0.9 % Sodium Chloride 50 ML IV (07:18)
[2021-12-16 07:32] LABS: Anion Gap 15 (12-20); Blood Urea Nitrogen 12 mg/dL (9-16); Calcium 8.1 mg/dL (8.4-10.2); Carbon Dioxide 28 mmol/L (22-29); Chloride 104 mmol/L (96-108); Creatinine Clr Calc Pharmacy 107.8; Estimated Glomerular Filt Rate > 60; Glucose Random 87 mg/dL (60-115); Potassium 3.6 mmol/L (3.3-5.1); Sodium 143 mmol/L (135-145)
[2021-12-16 08:15] LABS: Band Neutrophils Percent 18 % (3-5); Lymphocytes Percent Manual 11 % (20-40); Metamyelocytes Percent 1 %; Monocytes Percent Manual 6 % (2-11); Neutrophils Percent Manual 64 % (45-73); Nucleated Red Blood Cells 2 /100WBC (0-0)
[2021-12-16 08:16] LABS: Hypochromasia 1+ (5-14) /OIF; Polychromasia 1+ (0-2) /OIF; RBC Morphology NOTED
[2021-12-16 08:18] LABS: Tear Drop Cells 1+ (0-2) /OIF
[2021-12-16 08:19] LABS: Large Platelet PRESENT; Ovalocytes 1+ (5-14) /OIF; Platelet Estimate DECREASED (NORMAL); Platelet Morphology Comment NOTED
[2021-12-16 08:20] LABS: Dohle Bodies PRESENT
[2021-12-16 08:49] LABS: Lymphocytes Absolute Manual 0.9 X10*3/uL (1.2-4.9); Metamyelocytes Absolute 0.1 X10*3/uL; Monocytes Absolute Manual 0.5 X10*3/uL (0.1-1.2); Neutrophils Absolute Manual 6.5 X10*3/uL (2.0-8.3); White Blood Count 7.9 X10*3/uL (4.8-10.8)
[2021-12-16 09:40] LABS: B Type Natriuretic Peptide 41 pg/mL (<100)
[2021-12-16] MEDS: Acetaminophen 325 MG TABLET 650 MG PO (10:21)
[2021-12-16] MEDS: Cholecalciferol (Vitamin D3) 25 MCG TABLET PO (10:22)
[2021-12-16] MEDS: Metoprolol Succinate ER 50 MG TAB.ER.24H PO (10:22)
[2021-12-16] MEDS: predniSONE 20 MG TABLET 40 MG PO (10:23)
[2021-12-16] MEDS: Calcium + Vitamin D 250 MG TABLET 500 MG PO (10:23)
[2021-12-16] MEDS: Mag&Al/Sim/Diphenhyd/Lidocaine 10 ML ORAL.SUSP PO ×4 (10:26→21:39)
[2021-12-16] MEDS: Azithromycin 500 MG in 0.9 % Sodium Chloride 250 ML 125 MG IV (10:34)
--- NOTE | 2021-12-16 12:18 | HO.PM.IMPN ---
Subjective Subjective Date of Service: 12/16/21 Interval History: Pt seen in follow up for BRBPR with pancolitis and sob with fluid overload Continues with blood diarrhea. 6/10 lower abdominal discomfort. No nausea/vomiting. Still with significant BLE. Now reporting significant SUMNER. No sob at rest. No orthopnea. No CP. Review of Systems General: No fevers, malaise, unintentional weight loss Cardiovascular: No chest pain, palpitations. +ble edema Respiratory: +sumner. No orthopnea. No wheezing, cough GI: +abdominal pain, +diarrhea, +BRBPR. No nausea, vomiting, constipation, melena : No dysuria, hematuria, increased frequency Neuro: No headaches, weakness, paresthesias Skin: No rashes or lesions Physical Exam Vital Signs: Vital Signs: Last Vital Signs Temp 99.2 F 12/16/21 11:39 Pulse 96 12/16/21 11:39 Resp 18 12/16/21 11:39 BP 120/66 12/16/21 11:39 Pulse Ox 98 12/16/21 11:39 O2 Del Method 12/16/21 11:39 BMI result Body Mass Index 42.0 Constitutional - Awake and Alert, No apparent distress Eyes - PERRLA, EOMI Mouth-lips dry Cardiovascular - S1S2, RRR, No edema Respiratory - Normal lung expansion, Normal respiratory effort, No respiratory distress, CTA bilaterally Gastrointestinal - Mild ttp lower quadrants. ND; +BS; No rebound or guarding Extremities - no calf tenderness bilaterally, no swelling Skin - Warm/Dry. Facial swelling with dry skin and erythema most prominant around eyes Neurological - Alert & oriented x3, No focal deficit Psychological - Appropriate affect Objective Data Active Medications Acetaminophen (Acetaminophen 325 Mg Tablet) 650 mg PO Q6H PRN PRN Reason: Pain, Mild (Pain Scale 1-3) Last Admin: 12/16/21 10:21 Dose: 650 mg Documented By: YOLIE Calcium Carbonate/Cholecalciferol (Calcium + Vitamin D 250 Mg Tablet) 500 mg PO DAILY [facility] Last Admin: 12/16/21 10:23 Dose: 500 mg Documented By: YOLIE Clonidine HCl (Clonidine Hcl 0.2 Mg Tablet) 0.2 mg PO BEDTIME [facility]; Protocol Last Admin: 12/15/21 22:14 Dose: 0.2 mg Documented By: MCKINLEY Cyanocobalamin (Cyanocobalamin (Vitamin B-12) 1,000 Mcg Tablet) 1,000 mcg PO BEDTIME [facility] Last Admin: 12/15/21 22:07 Dose: 1,000 mcg Documented By: MCKINLEY Diphenhydramine HCl (Diphenhydramine Hcl 25 Mg Tablet) 25 mg PO TID PRN PRN Reason: itching Last Admin: 12/15/21 14:02 Dose: 25 mg Documented By: SURESH Duloxetine HCl (Duloxetine Hcl 60 Mg Capsule.Dr) 60 mg PO BEDTIME [facility] Last Admin: 12/15/21 22:07 Dose: 60 mg Documented By: MCKINLEY Enoxaparin Sodium (Enoxaparin Sodium 40 Mg/0.4 Ml Syringe) 40 mg SUBCUT Q24H [facility] Last Admin: 12/15/21 22:08 Dose: 40 mg Documented By: MKCINLEY Hydrocortisone (Hydrocortisone 2.5 % Rectal Cr 30 Gm Tube) 1 appl OK BID [facility] Last Admin: 12/16/21 10:37 Dose: Not Given Documented By: YOLIE Non-Admin Reason: Patient Refused Ceftriaxone Sodium 1 gm/ (Sodium Chloride) 50 mls @ 100 mls/hr IV Q24H [facility] Last Infusion: 12/16/21 08:09 Dose: 0 mls/hr Documented By: YOLIE Azithromycin 500 mg/ Sodium (Chloride) 250 mls @ 125 mls/hr IV Q24H [facility] Last Admin: 12/16/21 10:34 Dose: 125 mls/hr Documented By: YOLIE Lidocaine/Diphenhydr/Alum/Mg/Simeth (Mag&Al/Sim/Diphenhyd/Lidocaine 10 Ml Oral.Susp) 10 ml PO QID [facility] Last Admin: 12/16/21 10:26 Dose: 10 ml Documented By: YOLIE Loperamide HCl (Loperamide Hcl 2 Mg Capsule) 2 mg PO Q4H PRN PRN Reason: Diarrhea Metoprolol Succinate (Metoprolol Succinate Er 50 Mg Tab.Er.24h) 50 mg PO DAILY [facility]; Protocol Last Admin: 12/16/21 10:22 Dose: 50 mg Documented By: YOLIE Ondansetron HCl (Ondansetron Hcl 4 Mg/2 Ml Vial) 4 mg IVPUSH Q8H PRN PRN Reason: Nausea and Vomiting Prednisone (Prednisone 20 Mg Tablet) 40 mg PO DAILY [facility] Last Admin: 12/16/21 10:23 Dose: 40 mg Documented By: YOLIE Sodium Chloride (0.9 % Sodium Chloride Flush 3 Ml Syringe) 3 ml IVFLUSH QSHIFT [facility] Last Admin: 12/16/21 10:57 Dose: Not Given Documented By: ROSINA Non-Admin Reason: IV Running Vitamin D (Cholecalciferol (Vitamin D3) 25 Mcg Tablet) 25 mcg PO DAILY [facility] Last Admin: 12/16/21 10:22 Dose: 25 mcg Documented By: YOLIE Labs CBC & Chem 7: 12/16/21 05:43 12/16/21 05:43 Labs: Laboratory Results - last 24 hr 12/14/21 12/16/21 12/16/21 10:28 05:43 05:43 MCV 91.4 MCH 27.5 MCHC 30.1 L RDW 19.5 H Plt Count 77 L MPV 11.7 Immature Gran % (Auto) Cancelled Neut % (Auto) Cancelled Lymph % (Auto) Cancelled Kerr % (Auto) Cancelled Eos % (Auto) Cancelled Baso % (Auto) Cancelled Lymph # (Auto) Cancelled Kerr # (Auto) Cancelled Eos # (Auto) Cancelled Baso # (Auto) Cancelled Abs Immat Gran (auto) Cancelled Absolute Neuts (auto) Cancelled Absolute Nucleated RBC 0.090 H Nucleated RBC % (auto) 1.1 H Neutrophils % (Manual) 64 Band Neutrophils % 18 H Lymphocytes % (Manual) 11 L Monocytes % (Manual) 6 Metamyelocytes % 1 Abs Neuts (Manual) 6.5 Lymphocytes # (Manual) 0.9 L Monocytes # (Manual) 0.5 Metamyelocytes # 0.1 Nucleated RBCs 2 H Dohle Bodies PRESENT Platelet Estimate DECREASED Large Platelets PRESENT Plt Morphology Comment NOTED RBC Morphology NOTED Polychromasia 1+ (0-2) Hypochromasia 1+ (5-14) Tear Drop Cells 1+ (0-2) Ovalocytes 1+ (5-14) Anion Gap 15 Estim Creat Clear Calc 107.8 Estimated GFR > 60 Random Glucose 87 Calcium 8.1 L B-Natriuretic Peptide Blood Type A Positive Antibody Screen NEGATIVE Crossmatch See Detail 12/16/21 05:43 MCV MCH MCHC RDW Plt Count MPV Immature Gran % (Auto) Neut % (Auto) Lymph % (Auto) Kerr % (Auto) Eos % (Auto) Baso % (Auto) Lymph # (Auto) Kerr # (Auto) Eos # (Auto) Baso # (Auto) Abs Immat Gran (auto) Absolute Neuts (auto) Absolute Nucleated RBC Nucleated RBC % (auto) Neutrophils % (Manual) Band Neutrophils % Lymphocytes % (Manual) Monocytes % (Manual) Metamyelocytes % Abs Neuts (Manual) Lymphocytes # (Manual) Monocytes # (Manual) Metamyelocytes # Nucleated RBCs Dohle Bodies Platelet Estimate Large Platelets Plt Morphology Comment RBC Morphology Polychromasia Hypochromasia Tear Drop Cells Ovalocytes Anion Gap Estim Creat Clear Calc Estimated GFR Random Glucose Calcium B-Natriuretic Peptide 41 Blood Type Antibody Screen Crossmatch Assessment and Plan (1) Pancolitis: Status: Acute (2) Diarrhea: Status: Acute (3) Pancytopenia: Status: Acute Plan 66 year old female with 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 1-Pancolitis r/t chemotherapy -Diarrhea ongoing 4 weeks since chemo initiated with BRBPR x 1 day -CT abd/pelvis with pancolitis -Stool studies negative for c.diff. POSITIVE for ENTEROPATHIC E.COLI. On azithromycin which should effectively treat, continue 3 days total course -GI following. -Clear liquids for bowel rest -Immodium prn -Resume LR- no evidence of fluid overload on cxr -Continue following CBC and BMP 2-Blood loss anemia -Secondary to pancolitis with BRBPR -H/H improved to 8.6/28.6% following transfusion yesterday -Continue following CBC and BMP am 3-Acute dehydration secondary to diarrhea- resolved -Hold IVF for blood transfusion -Renal fx and lytes normal. Follow BMP 4-SUMNER -oximetry 98% RA at rest, drops to 88% with ambulation -BNP 41. CXR without evidence of fluid overload as previously seen on admission. No concern for HF. -No tachycardia. No chest pain. CTA chest negative on admission -Most likely hypoventilation syndrome secondary to morbid obesity -Incentive spirometry ordered 5- LLL pneumonia -Continue ceftriaxone and azithromycin -Procalcitonin ordered. If normal dc antibiotics. 6-Oral candidiasis secondary to prolonged steroid use -Nystatin swish and swallow 7-[id number]-bruvdk -Continue home meds 8-Depression/anxiety -Continue duloxetine. 9-Dermatomyositis -Continue prednisone per rheumatology 10-DCIS right breath on chemotherapy as above -Continue plan per oncology 11-Thrombocytopenia from chemo -MOnitor closely whole on lovenox DVT prophylaxis- lovenox Full code Pt requires ongoing inpatient stay for management of pancolitis with BRBPR and stool studies showing e.coli Also requires further monitoring for fluid reaccumulation in the lung following diuresis though no evidence of HF at this time. Quality Stroke Does the patient have a stroke diagnosis?: No VTE Prior VTE?: No VTE Risk Level:: Medical - moderate - high VTE Device Contraindication: Treatment Not Indicated VTE Drug Contraindication: N/A - Med Ordered
[2021-12-16] MEDS: Loperamide HCl 2 MG CAPSULE PO (14:45)
[2021-12-16] MEDS: Lactated Ringers 1,000 ML 80 ML IVCONT (14:46)
[2021-12-16] MEDS: Enoxaparin Sodium 40 MG/0.4 ML SYRINGE SUBCUT (21:39)
[2021-12-16] MEDS: 0.9 % Sodium Chloride Flush 3 ML SYRINGE IVFLUSH (21:39)
[2021-12-16] MEDS: DULoxetine HCl 60 MG CAPSULE.DR PO (21:39)
[2021-12-16] MEDS: Cyanocobalamin (Vitamin B-12) 1,000 MCG TABLET 1000 MCG PO (21:39)
[2021-12-16] MEDS: cloNIDine HCL 0.2 MG TABLET PO (21:46)
[2021-12-17] MEDS: Lactated Ringers 1,000 ML 80 ML IVCONT ×3 (03:30→21:37)
[2021-12-17 04:00] VITALS: BP 124/64; PULSE 77; RESP 16; TEMP 36.2; O2SAT 97
[2021-12-17] MEDS: Azithromycin 500 MG in 0.9 % Sodium Chloride 250 ML 125 MG IV (06:25)
[2021-12-17 08:00] VITALS: BP 143/77; PULSE 98; RESP 19; TEMP 36.8; O2SAT 99
[2021-12-17] MEDS: Cholecalciferol (Vitamin D3) 25 MCG TABLET PO (08:21)
[2021-12-17] MEDS: Metoprolol Succinate ER 50 MG TAB.ER.24H PO (08:21)
[2021-12-17] MEDS: predniSONE 20 MG TABLET 40 MG PO (08:21)
[2021-12-17] MEDS: Mag&Al/Sim/Diphenhyd/Lidocaine 10 ML ORAL.SUSP PO ×4 (08:21→21:34)
[2021-12-17] MEDS: Calcium + Vitamin D 250 MG TABLET 500 MG PO (08:23)
[2021-12-17] MEDS: cefTRIAXone sodium 1 GM in 0.9 % Sodium Chloride 50 ML IV (08:25)
[2021-12-17] MEDS: 0.9 % Sodium Chloride Flush 3 ML SYRINGE IVFLUSH ×2 (08:35→21:41)
--- NOTE | 2021-12-17 09:37 | HO.PM.IMPN ---
Subjective Subjective Date of Service: 12/18/21 Review of Systems Follow-up pancolitis still with diarrhea sitting up in bed Physical Exam Vital Signs: Vital Signs: Last Vital Signs Temp 98.2 F 12/17/21 08:00 Pulse 98 12/17/21 08:00 Resp 19 12/17/21 08:00 BP 143/77 H 12/17/21 08:00 Pulse Ox 99 12/17/21 08:00 O2 Del Method 12/17/21 08:00 BMI result Body Mass Index 42.0 Appearing in no acute distress lung sounds are clear to auscultation heart regular rate rhythm, clear S1, S2 positive bowel sounds, abdomen is soft, nontender neuro patient is alert x3, no focal deficits Objective Data Active Medications Acetaminophen (Acetaminophen 325 Mg Tablet) 650 mg PO Q6H PRN PRN Reason: Pain, Mild (Pain Scale 1-3) Last Admin: 12/16/21 10:21 Dose: 650 mg Documented By: YOLIE Calcium Carbonate/Cholecalciferol (Calcium + Vitamin D 250 Mg Tablet) 500 mg PO DAILY [facility] Last Admin: 12/17/21 08:23 Dose: 500 mg Documented By: HAZEL Clonidine HCl (Clonidine Hcl 0.2 Mg Tablet) 0.2 mg PO BEDTIME CHELSIE; Protocol Last Admin: 12/16/21 21:46 Dose: 0.2 mg Documented By: MCKINLEY Cyanocobalamin (Cyanocobalamin (Vitamin B-12) 1,000 Mcg Tablet) 1,000 mcg PO BEDTIME CHELSIE Last Admin: 12/16/21 21:39 Dose: 1,000 mcg Documented By: MCKINLEY Diphenhydramine HCl (Diphenhydramine Hcl 25 Mg Tablet) 25 mg PO TID PRN PRN Reason: itching Last Admin: 12/15/21 14:02 Dose: 25 mg Documented By: SURESH Duloxetine HCl (Duloxetine Hcl 60 Mg Capsule.) 60 mg PO BEDTIME CHELSIE Last Admin: 12/16/21 21:39 Dose: 60 mg Documented By: MCKINLEY Enoxaparin Sodium (Enoxaparin Sodium 40 Mg/0.4 Ml Syringe) 40 mg SUBCUT Q24H CHELSIE Last Admin: 12/16/21 21:39 Dose: 40 mg Documented By: MCKINLEY Hydrocortisone (Hydrocortisone 2.5 % Rectal Cr 30 Gm Tube) 1 appl NM BID [facility] Last Admin: 12/17/21 08:35 Dose: Not Given Documented By: HAZEL Non-Admin Reason: Patient Refused Ceftriaxone Sodium 1 gm/ (Sodium Chloride) 50 mls @ 100 mls/hr IV Q24H [facility] Last Infusion: 12/17/21 09:10 Dose: 0 mls/hr Documented By: HAZEL Azithromycin 500 mg/ Sodium (Chloride) 250 mls @ 125 mls/hr IV Q24H [facility] Last Infusion: 12/17/21 08:35 Dose: 0 mls/hr Documented By: HAZEL Lactated Ringer's (Lr) 1,000 mls @ 80 mls/hr IVCONT .[id number] [facility] Last Admin: 12/17/21 03:30 Dose: 80 mls/hr Documented By: MCKINLEY Lidocaine/Diphenhydr/Alum/Mg/Simeth (Mag&Al/Sim/Diphenhyd/Lidocaine 10 Ml Oral.Susp) 10 ml PO QID [facility] Last Admin: 12/17/21 08:21 Dose: 10 ml Documented By: HAZEL Loperamide HCl (Loperamide Hcl 2 Mg Capsule) 2 mg PO Q4H PRN PRN Reason: Diarrhea Last Admin: 12/16/21 14:45 Dose: 2 mg Documented By: YOLIE Metoprolol Succinate (Metoprolol Succinate Er 50 Mg Tab.Er.24h) 50 mg PO DAILY [facility]; Protocol Last Admin: 12/17/21 08:21 Dose: 50 mg Documented By: HAZEL Ondansetron HCl (Ondansetron Hcl 4 Mg/2 Ml Vial) 4 mg IVPUSH Q8H PRN PRN Reason: Nausea and Vomiting Prednisone (Prednisone 20 Mg Tablet) 40 mg PO DAILY [facility] Last Admin: 12/17/21 08:21 Dose: 40 mg Documented By: HAZEL Sodium Chloride (0.9 % Sodium Chloride Flush 3 Ml Syringe) 3 ml IVFLUSH QSHIFT [facility] Last Admin: 12/17/21 08:35 Dose: 3 ml Documented By: HAZEL Vitamin D (Cholecalciferol (Vitamin D3) 25 Mcg Tablet) 25 mcg PO DAILY [facility] Last Admin: 12/17/21 08:21 Dose: 25 mcg Documented By: HAZEL Labs CBC & Chem 7: 12/18/21 08:14 12/16/21 05:43 Labs: Laboratory Results - last 24 hr 12/16/21 12/17/21 05:43 05:52 B-Natriuretic Peptide 41 Procalcitonin 0.10 Assessment and Plan (1) Pancolitis: Status: Acute (2) Diarrhea: Status: Acute (3) Pancytopenia: Status: Acute Plan 66 year old female with 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 Pancolitis r/t chemotherapy Ongoing diarrhea over the last 4 weeks since initiation of chemotherapy with 1 episode of bright red blood per rectum CT abdomen showing pancolitis Stool studies positive for enteropathogenic E coli. Started on azithromycin total of 3 day treatment Clear liquid diet for now Imodium as needed IV fluids Blood loss anemia Secondary to pancolitis Status post transfusion of packed red blood cells and follow CBC Dehydration. Secondary to fluid losses from diarrhea IV fluids Imodium as needed for diarrhea Left lower lobe pneumonia, community-acquired Continue Rocephin and azithromycin Supplemental oxygen as needed Oral candidiasis Likely secondary to prolonged steroid use Nystatin swish and swallow Hemorrhoids Hydrocortisone application twice daily [place] Hypertension Stable blood pressure Continue clonidine, metoprolol Mental health Continue home medications Dermatomyositis Continue steroids Thrombocytopenia Secondary to chemotherapy Follow CBC closely DVT prophylaxis with Lovenox Full code Attending Dr. Ramsey Pt requires ongoing inpatient stay for management of pancolitis with BRBPR and stool studies showing e.coli Quality Stroke Does the patient have a stroke diagnosis?: No VTE Prior VTE?: No VTE Risk Level:: Medical - moderate - high VTE Device Contraindication: Treatment Not Indicated VTE Drug Contraindication: N/A - Med Ordered
[2021-12-17 11:33] VITALS: BP 142/67; PULSE 73; RESP 18; TEMP 37.3; O2SAT 98
[2021-12-17 15:25] VITALS: BP 140/77; PULSE 70; RESP 16; TEMP 36.2; O2SAT 98
[2021-12-17 19:07] VITALS: BP 120/65; PULSE 77; RESP 17; TEMP 36.3; O2SAT 98
[2021-12-17] MEDS: Enoxaparin Sodium 40 MG/0.4 ML SYRINGE SUBCUT (21:33)
[2021-12-17] MEDS: DULoxetine HCl 60 MG CAPSULE.DR PO (21:33)
[2021-12-17] MEDS: cloNIDine HCL 0.2 MG TABLET PO (21:43)
[2021-12-17] MEDS: Cyanocobalamin (Vitamin B-12) 1,000 MCG TABLET 1000 MCG PO (21:44)
[2021-12-18] VITALS (8 sets, daily range): BP systolic 105–147; BP diastolic 56–82; PULSE 59–85; RESP 16–19; TEMP 36–37.1; O2SAT 95–99
[2021-12-18] MEDS: Calcium + Vitamin D 250 MG TABLET 500 MG PO (07:46)
[2021-12-18] MEDS: Azithromycin 500 MG in 0.9 % Sodium Chloride 250 ML 125 MG IV (07:47)
[2021-12-18] MEDS: predniSONE 20 MG TABLET 40 MG PO (07:59)
[2021-12-18] MEDS: Metoprolol Succinate ER 50 MG TAB.ER.24H PO (07:59)
[2021-12-18] MEDS: Mag&Al/Sim/Diphenhyd/Lidocaine 10 ML ORAL.SUSP PO ×4 (07:59→20:45)
[2021-12-18] MEDS: Cholecalciferol (Vitamin D3) 25 MCG TABLET PO (07:59)
[2021-12-18] MEDS: Hydrocortisone 2.5 % Rectal Cr 30 GM TUBE 1 APPL PR (08:01)
[2021-12-18] MEDS: 0.9 % Sodium Chloride Flush 3 ML SYRINGE IVFLUSH (08:02)
[2021-12-18 08:31] LABS: Hemoglobin 8.6 g/dl (12.0-16.0); Mean Corpuscular HGB Conc 30.7 g/dl (31.0-35.0); Mean Corpuscular Hemoglobin 27.9 pg (27.0-33.0); Mean Corpuscular Volume 90.9 fL (80.0-98.0); Mean Platelet Volume 10.7 fL (9.4-12.3); NRBC Pct Auto 0.2 /100WBC (0.0-0.2); Red Blood Count 3.08 X10*6/uL (4.20-5.50); Red Cell Distribution Width 20.8 % (11.0-16.0); White Blood Count 8.1 X10*3/uL (4.8-10.8)
[2021-12-18 08:43] LABS: Platelet Count 56 X10*3/uL (160-400)
--- NOTE | 2021-12-18 08:56 | HO.PM.IMPN ---
Subjective Subjective Date of Service: 12/18/21 Review of Systems Follow-up pancolitis still with diarrhea sitting up in bed Physical Exam Vital Signs: Vital Signs: Last Vital Signs Temp 97.1 F 12/18/21 08:13 Pulse 69 12/18/21 08:13 Resp 19 12/18/21 08:13 BP 115/82 12/18/21 08:08 Pulse Ox 96 12/18/21 08:13 O2 Del Method 12/18/21 08:13 BMI result Body Mass Index 42.0 Appearing in no acute distress lung sounds are clear to auscultation heart regular rate rhythm, clear S1, S2 positive bowel sounds, abdomen is soft, nontender neuro patient is alert x3, no focal deficits Objective Data Active Medications Acetaminophen (Acetaminophen 325 Mg Tablet) 650 mg PO Q6H PRN PRN Reason: Pain, Mild (Pain Scale 1-3) Last Admin: 12/16/21 10:21 Dose: 650 mg Documented By: YOLIE Calcium Carbonate/Cholecalciferol (Calcium + Vitamin D 250 Mg Tablet) 500 mg PO DAILY [facility] Last Admin: 12/18/21 07:46 Dose: 500 mg Documented By: JUAN DANIEL Clonidine HCl (Clonidine Hcl 0.2 Mg Tablet) 0.2 mg PO BEDTIME CHELSIE; Protocol Last Admin: 12/17/21 21:43 Dose: 0.2 mg Documented By: MONICA Cyanocobalamin (Cyanocobalamin (Vitamin B-12) 1,000 Mcg Tablet) 1,000 mcg PO BEDTIME CHELSIE Last Admin: 12/17/21 21:44 Dose: 1,000 mcg Documented By: MONICA Diphenhydramine HCl (Diphenhydramine Hcl 25 Mg Tablet) 25 mg PO TID PRN PRN Reason: itching Last Admin: 12/15/21 14:02 Dose: 25 mg Documented By: SURESH Duloxetine HCl (Duloxetine Hcl 60 Mg Capsule.Dr) 60 mg PO BEDTIME [facility]HELSIE Last Admin: 12/17/21 21:33 Dose: 60 mg Documented By: MONICA Enoxaparin Sodium (Enoxaparin Sodium 40 Mg/0.4 Ml Syringe) 40 mg SUBCUT Q24H [facility] Last Admin: 12/17/21 21:33 Dose: 40 mg Documented By: MONICA Hydrocortisone (Hydrocortisone 2.5 % Rectal Cr 30 Gm Tube) 1 appl PA BID [facility] Last Admin: 12/18/21 08:01 Dose: 1 appl Documented By: JUAN DANIEL Ceftriaxone Sodium 1 gm/ (Sodium Chloride) 50 mls @ 100 mls/hr IV Q24H [facility] Last Infusion: 12/17/21 09:10 Dose: 0 mls/hr Documented By: JACOB-KONGM Azithromycin 500 mg/ Sodium (Chloride) 250 mls @ 125 mls/hr IV Q24H [facility] Last Admin: 12/18/21 07:47 Dose: 125 mls/hr Documented By: JUAN DANIEL Lactated Ringer's (Lr) 1,000 mls @ 80 mls/hr IVCONT .[id number] [facility] Last Infusion: 12/18/21 08:06 Dose: 0 mls/hr Documented By: JUAN DANIEL Lidocaine/Diphenhydr/Alum/Mg/Simeth (Mag&Al/Sim/Diphenhyd/Lidocaine 10 Ml Oral.Susp) 10 ml PO QID [facility] Last Admin: 12/18/21 07:59 Dose: 10 ml Documented By: JUAN DANIEL Loperamide HCl (Loperamide Hcl 2 Mg Capsule) 2 mg PO Q4H PRN PRN Reason: Diarrhea Last Admin: 12/16/21 14:45 Dose: 2 mg Documented By: YOLIE Metoprolol Succinate (Metoprolol Succinate Er 50 Mg Tab.Er.24h) 50 mg PO DAILY [facility]; Protocol Last Admin: 12/18/21 07:59 Dose: 50 mg Documented By: JUAN DANIEL Ondansetron HCl (Ondansetron Hcl 4 Mg/2 Ml Vial) 4 mg IVPUSH Q8H PRN PRN Reason: Nausea and Vomiting Prednisone (Prednisone 20 Mg Tablet) 40 mg PO DAILY [facility] Last Admin: 12/18/21 07:59 Dose: 40 mg Documented By: JUAN DANIEL Sodium Chloride (0.9 % Sodium Chloride Flush 3 Ml Syringe) 3 ml IVFLUSH QSHIFT [facility] Last Admin: 12/18/21 08:02 Dose: 3 ml Documented By: JUAN DANIEL Vitamin D (Cholecalciferol (Vitamin D3) 25 Mcg Tablet) 25 mcg PO DAILY [facility] Last Admin: 12/18/21 07:59 Dose: 25 mcg Documented By: JUAN DANIEL Labs CBC & Chem 7: 12/18/21 08:14 12/16/21 05:43 Labs: Laboratory Results - last 24 hr 12/18/21 08:14 MCV 90.9 MCH 27.9 MCHC 30.7 L RDW 20.8 H Plt Count 56 L D MPV 10.7 Absolute Nucleated RBC 0.020 H Nucleated RBC % (auto) 0.2 Assessment and Plan (1) Pancolitis: Status: Acute (2) Diarrhea: Status: Acute (3) Pancytopenia: Status: Acute Plan 66 year old female with 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 Pancolitis r/t chemotherapy Ongoing diarrhea over the last 4 weeks since initiation of chemotherapy with 1 episode of bright red blood per rectum CT abdomen showing pancolitis Stool studies positive for enteropathogenic E coli. S/p azithromycin total of 3 day treatment Imodium as needed IV fluids stopped diet advanced to regular Blood loss anemia . No further blood per rectum Secondary to pancolitis Status post transfusion of packed red blood cells CBC stable Dehydration. Secondary to fluid losses from diarrhea. Resolved Imodium as needed for diarrhea Left lower lobe pneumonia, community-acquired Continue Rocephin and azithromycin day 3/5 Supplemental oxygen as needed Oral candidiasis Likely secondary to prolonged steroid use Nystatin swish and swallow Hemorrhoids Hydrocortisone application twice daily [place] Hypertension Stable blood pressure Continue clonidine, metoprolol Mental health Continue home medications Dermatomyositis Continue steroids Thrombocytopenia Secondary to chemotherapy Follow CBC closely Morbid obesity. BMI 42.1 Discussed importance of weight management as this may be contributing to worsening of other comorbidities DVT prophylaxis with Lovenox Full code Attending Dr. Ramsey Pt requires ongoing inpatient stay for management of pancolitis with BRBPR and stool studies showing e.coli Quality Stroke Does the patient have a stroke diagnosis?: No VTE Prior VTE?: No VTE Risk Level:: Medical - moderate - high VTE Device Contraindication: Treatment Not Indicated VTE Drug Contraindication: N/A - Med Ordered
[2021-12-18] MEDS: cefTRIAXone sodium 1 GM in 0.9 % Sodium Chloride 50 ML IV (10:04)
[2021-12-18] MEDS: cloNIDine HCL 0.2 MG TABLET PO (20:45)
[2021-12-18] MEDS: Enoxaparin Sodium 40 MG/0.4 ML SYRINGE SUBCUT (20:45)
[2021-12-18] MEDS: DULoxetine HCl 60 MG CAPSULE.DR PO (20:45)
[2021-12-18] MEDS: Cyanocobalamin (Vitamin B-12) 1,000 MCG TABLET 1000 MCG PO (20:45)
[2021-12-19] MEDS: 0.9 % Sodium Chloride Flush 3 ML SYRINGE IVFLUSH ×2 (01:59→07:59)
[2021-12-19 04:00] VITALS: BP 122/66; PULSE 66; RESP 17; TEMP 36.4; O2SAT 98
[2021-12-19] MEDS: cefTRIAXone sodium 1 GM in 0.9 % Sodium Chloride 50 ML IV (06:32)
[2021-12-19 06:51] LABS: Hematocrit 27.2 % (37.0-47.0); Hemoglobin 8.3 g/dl (12.0-16.0); Mean Corpuscular HGB Conc 30.5 g/dl (31.0-35.0); Mean Corpuscular Hemoglobin 27.9 pg (27.0-33.0); Mean Corpuscular Volume 91.6 fL (80.0-98.0); Mean Platelet Volume 11.6 fL (9.4-12.3); Red Blood Count 2.97 X10*6/uL (4.20-5.50); Red Cell Distribution Width 20.7 % (11.0-16.0); White Blood Count 7.1 X10*3/uL (4.8-10.8)
[2021-12-19 07:00] LABS: Platelet Count 47 X10*3/uL (160-400)
[2021-12-19 07:51] VITALS: BP 116/57; PULSE 75
[2021-12-19] MEDS: Azithromycin 500 MG in 0.9 % Sodium Chloride 250 ML 125 MG IV (07:53)
[2021-12-19] MEDS: Cholecalciferol (Vitamin D3) 25 MCG TABLET PO (07:58)
[2021-12-19] MEDS: Calcium + Vitamin D 250 MG TABLET 500 MG PO (07:58)
[2021-12-19] MEDS: Mag&Al/Sim/Diphenhyd/Lidocaine 10 ML ORAL.SUSP PO ×2 (07:58→12:51)
[2021-12-19] MEDS: predniSONE 20 MG TABLET 40 MG PO (07:59)
[2021-12-19] MEDS: Metoprolol Succinate ER 50 MG TAB.ER.24H PO (07:59)
[2021-12-19] MEDS: Hydrocortisone 2.5 % Rectal Cr 30 GM TUBE 1 APPL PR (07:59)
[2021-12-19 08:00] VITALS: BP 139/83; PULSE 89; RESP 18; TEMP 36.8; O2SAT 97
--- NOTE | 2021-12-19 09:08 | P.DS_ITS ---
DS: Providers Provider Date of Service: 12/19/21 Date of admission: 12/14/21 19:46 Primary care physician: THA Cast Consults: 12/14/21 19:46 Consult to Gastroenterology Routine Consulting Provider: Fady Dang Reason for consultation: chemo realted colitis, brbpr Attending physician on discharge: Omero Castillo Discharging clinician: Bhavani Hu DS: Diagnosis Discharge Diagnosis (1) Pancolitis: Status: Acute (2) Diarrhea: Status: Acute (3) Pancytopenia: Status: Acute DS: Summary Hospital Course Hospital Course: History and physical as per admitting provider 66 year old female with history of dermatomyositis on prednisone taper, anxiety, insomnia, asthma, depression, 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 States has had copious diarrhea since starting chemo 4 weeks ago, but first noticed bright red blood yesterday and continued into today. Also reporting SOB for one week. Has history of asthma but states this has been controlled since quitting smoking 12 years ago. Feels like air hunger, no wheezing. Mild tachypnea 23, vitals otherwise stable without hypoxia. WBC 3.6. H/H 8.2/27.0% (baseline 9.4/30.3%). Renal function stable, electrolytes normal. UA with high SG, 1+ protein. CT abd/pelvis showing pancolitis with small amount ascites. Chest CTA negative for PE. New small left pleural effusion and atelectasis left lung base vs infiltrate. Small heterogenous RHODA nodules in peribronchial distribution, ?r/t airway disease. Head CT negative . Pancolitis r/t chemotherapy Ongoing diarrhea over the last 4 weeks since initiation of chemotherapy with 1 episode of bright red blood per rectum, no further episodes of bleeding Stool studies positive for enteropathogenic E coli. S/p azithromycin completed 3 day treatment Imodium as needed IV fluids stopped diet advanced to regular Follow up with GI as outpatient as needed Blood loss anemia .? No further blood per rectum Secondary to pancolitis Status post transfusion of packed red blood cells CBC stable Dehydration.? Secondary to fluid losses from diarrhea. Resolved Imodium as needed for diarrhea Left lower lobe pneumonia, community-acquired Continue Rocephin and azithromycin 2 more days Oral candidiasis Likely secondary to prolonged steroid use Nystatin swish and swallow Hemorrhoids Hydrocortisone application twice daily [place] Hypertension Stable blood pressure Continue clonidine, metoprolol Mental health Continue home medications Dermatomyositis Continue steroids Thrombocytopenia Secondary to chemotherapy Morbid obesity.? BMI 42.1 Discussed importance of weight management as this may be contributing to worsening of other comorbidities Time Spent with Patient Time attestation: Total time spent providing and/or coordinating discharge services: Discharge coordination time: Greater than 30 minutes Quality: Safe Use of Opioids Does Pt have an Active Cancer Diagnosis on the Problem List?: No Quality: Stroke Does the patient have a stroke diagnosis?: No Physical Exam Vital Signs: Vital Signs: Last Vital Signs Temp 98.2 F 12/19/21 08:00 Pulse 89 12/19/21 08:00 Resp 18 12/19/21 08:00 BP 139/83 12/19/21 08:00 Pulse Ox 97 12/19/21 08:00 O2 Del Method 12/19/21 08:00 BMI result Body Mass Index 42.0 Appearing in no acute distress head is normocephalic atraumatic eyes pupils are PERRLA sclera is anicteric mouth throat mucous membranes are intact and moist neck is supple no lymphadenopathy, no JVD noted lung sounds are clear to auscultation heart regular rate rhythm, clear S1, S2 positive bowel sounds, abdomen is soft, nontender neuro patient is alert x3, no focal deficits DS: Data Data Completed and Pending Completed studies during hospitalization [Text1]: Procedures Excision of Descending Colon, Via Natural or Artificial Opening Endoscopic, Diagnostic (11/23/21) Labs on day of discharge: Laboratory Results - last 24 hr 12/19/21 05:31 WBC 7.1 RBC 2.97 L Hgb 8.3 L Hct 27.2 L MCV 91.6 MCH 27.9 MCHC 30.5 L RDW 20.7 H Plt Count 47 L MPV 11.6 Absolute Nucleated RBC 0.000 Nucleated RBC % (auto) 0.0 Discharge Plan Discharge Anticipated Discharge Date/Time: 12/19/21 09:02 Patient Disposition: Home, Self-Care Discharge Diagnosis: Pancolitis Referrals: Leslie Washington FNP [Primary Care Provider] - 1 Week Discharge Medications: New loperamide 2 mg Capsule 2 mg PO Q4H PRN (Reason: Diarrhea) Qty: 24 0RF hydrocortisone [Proctozone-HC] 2.5 % Cream With Perineal Applicator 1 appl [place] BID Qty: 30 0RF azithromycin 500 mg tablet 500 mg PO DAILY Qty: 2 0RF cefuroxime axetil 500 mg tablet 500 mg PO BID Qty: 4 0RF Continued duloxetine 60 mg capsule,delayed release(DR/EC) 60 mg PO BEDTIME Qty: 90 1RF clonidine HCl 0.2 mg tablet 0.2 mg PO BEDTIME Qty: 90 1RF cyanocobalamin (vitamin B-12) 1,000 mcg capsule 1,000 mcg PO BEDTIME prednisone 10 mg tablet 40 mg PO DAILY diphenhydramine HCl [Benadryl] 25 mg capsule 25 mg PO TID PRN (Reason: itching) Qty: 14 0RF lutein 40 mg Capsule 40 mg PO DAILY Rx Instructions: administer with meals Magic Mouthwash Diphen/Lido/Antacid 1:1:1 240 mL Suspension 10 ml PO QID Qty: 240 3RF Rx Instructions: Lidocaine Viscous 2 % 80mL; diphenhydramine 12.5 mg/5 mL 80mL; aluminum-mag hydrox-simeth [id number]/5mL 80mL betamethasone dipropionate 0.05 % lotion 1 appl topical BID PRN (Reason: psorias flare up) Rx Instructions: 2 WEEKS ON AND ONE WEEK OFF cholecalciferol (vitamin D3) 25 mcg (1,000 unit) Tablet 25 mcg PO DAILY metoprolol succinate 50 mg Tablet Extended Release 24 Hr 50 mg PO DAILY Qty: 30 0RF Protocol: Hold for SBP/HR < HOLD for SBP < : 90 HOLD for HR < : 60 alendronate 70 mg tablet 70 mg PO FR@0600 ketoconazole 2 % shampoo 1 appl topical 2XW calcium carbonate-vitamin D3 600 mg-10 mcg (400 unit) tablet 1 tab PO DAILY ondansetron 8 mg tablet,disintegrating 8 mg PO Q8H PRN (Reason: Nausea) Gammagard S-D (IgA < 1 mcg/mL) 10 gram recon soln 70 g IV DAILY Qty: 7 4RF Rx Instructions: for 2 consecutive days every 30 days Diet: Advance to usual diet Activity on Discharge: As tolerated Stand Alone Forms: Patient Portal Discharge page Care Plan Goals: complete resolution of symptoms Health Concerns: pancolitis Plan of Treatment: Follow-up with primary care provider as needed Follow-up with investigative analyst as needed May take Imodium for diarrhea Take all medications as prescribed Assessment: see discharge summary
[2021-12-19 10:07] LABS: Anion Gap 15 (12-20); Blood Urea Nitrogen 9 mg/dL (9-16); Calcium 8.1 mg/dL (8.4-10.2); Carbon Dioxide 25 mmol/L (22-29); Chloride 106 mmol/L (96-108); Creatinine Clr Calc Pharmacy 95.5; Estimated Glomerular Filt Rate > 60; Glucose Random 132 mg/dL (60-115); Magnesium 1.6 mg/dL (1.6-2.6); Potassium 3.1 mmol/L (3.3-5.1); Sodium 143 mmol/L (135-145)
[2021-12-19 11:24] VITALS: BP 142/63; PULSE 81; RESP 18; TEMP 36.1; O2SAT 97
--- NOTE | 2021-12-19 11:47 | MHC.CM.PN ---
PATIENT TO DC HOME TODAY - SELF CARE [facility] REPORTEDLY TO PROVIDE TRANSPORT CM AWAITING DC ORDER.
[2021-12-19] MEDS: Potassium Chloride ER 20 MEQ TAB.ER.PRT 40 MEQ PO (12:51)
[2021-12-19] MEDS: Heparin Sodium,Porcine Flush 50 UNITS, 0.9 % Sodium Chloride Flush 5 ML IVFLUSH (14:07)
== END 2021-12-19 14:19 | disposition home or self-care (01) | DRG 249 ==
LOC: HO.ED 17:58 → HO.EDOVER 20:02 → HO.S3 12-15 07:04
PROVIDERS: Internal Medicine; Admitting Provider Physician Assistant; Emergency Provider Emergency Medicine Emergency Medical Services; PCP Nurse Practitioner Family; Visit Provider Nurse Practitioner Acute Care
DX: K52.1 Toxic gastroenteritis and colitis (principal); D61.810 Antineoplastic chemotherapy induced pancytopenia; B37.0 Candidal stomatitis; C77.3 Secondary and unspecified malignant neoplasm of axilla and upper limb lymph nodes; J18.9 Pneumonia, unspecified organism; M36.0 Dermato(poly)myositis in neoplastic disease; B96.20 Unspecified Escherichia coli [E. coli] as the cause of diseases classified elsewhere; E86.0 Dehydration; D05.11 Intraductal carcinoma in situ of right breast; D50.0 Iron deficiency anemia secondary to blood loss (chronic); F32.A Depression, unspecified; K64.9 Unspecified hemorrhoids; D63.0 Anemia in neoplastic disease; K62.5 Hemorrhage of anus and rectum; T45.1X5A Adverse effect of antineoplastic and immunosuppressive drugs, initial encounter; E66.01 Morbid (severe) obesity due to excess calories; Z68.41 Body mass index [BMI] 40.0-44.9, adult; I10 Essential (primary) hypertension; F41.9 Anxiety disorder, unspecified; Z17.0 Estrogen receptor positive status [ER+]; T38.0X5A Adverse effect of glucocorticoids and synthetic analogues, initial encounter; Z87.891 Personal history of nicotine dependence; Z79.899 Other long term (current) drug therapy
CPT/HCPCS: 36415; 70450; 71045; 71275; 74177; 80048; 81001; 82272; 83735; 83880; 84145; 85007; 85025; 85027; 86850; 86900; 86901; 86923; 87493; 87507; 87635; 99285; J0456; J0696; J1642; J1650; J1940; J2270; J2405; P9016; Q0163; Q9967

== ENCOUNTER 2021-12-25 09:45 | Outpatient (REF) | payer OTHER, SELFPAY | END 2021-12-25 09:46 | disposition home or self-care (01) | LOC: HO.MDS 09:45 | PROVIDERS: Visit Provider Internal Medicine Rheumatology | DX: Z45.2 Encounter for adjustment and management of vascular access device (principal); M33.90 Dermatopolymyositis, unspecified, organ involvement unspecified | CPT/HCPCS: 96365; 96366; J1569 ==

== ENCOUNTER 2021-12-26 09:55 | Outpatient (REF) | payer OTHER, SELFPAY | END 2021-12-26 09:56 | disposition home or self-care (01) | LOC: HO.MDS 09:55 | PROVIDERS: PCP Nurse Practitioner Family; Visit Provider Internal Medicine Rheumatology | DX: Z45.2 Encounter for adjustment and management of vascular access device (principal); M33.13 Other dermatomyositis without myopathy | CPT/HCPCS: 96365; 96366; J1569; J1642 ==

== ENCOUNTER 2021-12-27 00:23 | Emergency (ER) | payer OTHER, SELFPAY ==
[2021-12-27 00:53] VITALS: BP 184/89; PULSE 81; RESP 20; TEMP 36.2; O2SAT 98; BMI 38.9
[2021-12-27] MEDS: Acetaminophen 325 MG TABLET 650 MG PO (01:06)
[2021-12-27 01:21] LABS: Hematocrit 26.9 % (37.0-47.0); Hemoglobin 8.1 g/dl (12.0-16.0); Mean Corpuscular HGB Conc 30.1 g/dl (31.0-35.0); Mean Corpuscular Hemoglobin 28.3 pg (27.0-33.0); Mean Corpuscular Volume 94.1 fL (80.0-98.0); Mean Platelet Volume 10.1 fL (9.4-12.3); NRBC Pct Auto 0.8 /100WBC (0.0-0.2); Platelet Count 156 X10*3/uL (160-400); Red Blood Count 2.86 X10*6/uL (4.20-5.50); Red Cell Distribution Width 23.9 % (11.0-16.0); White Blood Count 13.5 X10*3/uL (4.8-10.8)
[2021-12-27 01:39] LABS: Alanine Aminotransferase 57 U/L (0-31); Albumin Level 2.9 g/dL (3.5-5.0); Alkaline Phosphatase 177 U/L (39-117); Anion Gap 16 (12-20); Aspartate Amino Transferase 70 U/L (5-31); Bilirubin Direct 0.4 mg/dL (0.0-0.5); Bilirubin Total 0.8 mg/dL (0.0-1.0); Blood Urea Nitrogen 21 mg/dL (9-16); Carbon Dioxide 22 mmol/L (22-29); Chloride 104 mmol/L (96-108); Estimated Glomerular Filt Rate > 60; Glucose Random 123 mg/dL (60-115); Lipase 85 U/L (8-78); Potassium 3.5 mmol/L (3.3-5.1); Sodium 138 mmol/L (135-145); Total Protein 7.3 g/dL (6.5-8.0)
== END 2021-12-27 03:37 | disposition left against medical advice (07) ==
PROVIDERS: Emergency Provider Emergency Medicine
DX: R10.9 Unspecified abdominal pain (principal); R30.0 Dysuria
CPT/HCPCS: 36415; 80053; 82248; 83690; 85027; 99282; 99283

== ENCOUNTER → 2021-12-27 08:26 | Outpatient (REF) | payer OTHER, SELFPAY ==
--- NOTE | 2021-12-27 08:30 | CA_ITS ---
Transthoracic Echocardiogram Patient (Last, First, Middle): Kate Almaguer, Gender: Female Date of : 1955 Age: 66 Procedure Date: 12/27/2021 Procedure Type: Transthoracic Echocardiogram Location: OP Height: 160.02 cm Weight: 99.79 kg BSA: 2.01 m2 Heart Rate: bpm BP: 130 / 75 mmHg Railroad Repairer: TO Referring MD: Josias Hameed MD Symptoms: R07.9 - Chest pain, unspecified Study Quality: Technically Difficult/Contrast ECG Rhythm: Sinus Conclusions: - The left ventricular systolic function is normal. The calculated ejection fraction is 68% by biplane method. Findings Procedure Information Contrast agent, definity, is being given per protocol without apparent complications. Left Ventricle Normal left ventricular cavity size. There is normal left ventricular wall thickness. The left ventricular systolic function is normal. The calculated ejection fraction is 68% by biplane method. There is no evidence of regional wall motion abnormalities. E/E prime ratio is >15, consistent with elevated filling pressures. Evidence suggests grade II (moderate) diastolic dysfunction. LV peak GLS -17.4%. Venous The inferior vena cava is dilated and collapses less than 50% with inspiration. Prior Study Comparison Changes noted compared to prior study dated: 11/15/2021. Strain values lower. IVC dilated/blunted respiratory variation. Measurements 2D Linear Measurements IVSd: 1.06 0.6-0.9/0.6-1.0 cm LVIDd: 3.78 3.9-5.3/4.2-5.9 cm LVIDd Index: 1.88 2.4-3.2/2.2-3.1 cm/m2 LVIDs: 2.57 2.0-3.6 cm LVPWd: 0.94 0.7-1.1 cm LV Mass: 144.65 67-162/88-224 g LV Mass Index: 71.97 43-95/49-115 g/m2 2D Systolic Function EF 4C: 69.10 >55% EF 2C: 65.50 >55% EF BiP: 67.70 >55% Mitral Valve MV Pk E: 1.38 MV PK A: 0.59 MV Decel Time: 212.00 E/A: 2.30 E'Lateral: 7.40 E'Medial: 8.38 E/E' Med: 16.50 E/E' Lat: 18.60 PHT: 62.00 MVA PHT: 3.55 Decel [place]: 6.52 Diastolic Function MV Pk E: 1.38 MV Pk A: 0.59 E/A: 2.30 E'Medial: 8.38 E/E' Med: 16.50 E' Laterial: 7.40 E/E' Lat: 18.60 Tricuspid Valve RA Press: 15.00 Updated in Other Vendor System with Status of Final Trevor Taveras MD electronically signed on 12/28/2021 9:04:14 AM with status of Final
--- NOTE | 2021-12-27 08:30 | HM_ITS ---
Conclusion: 1. Patient was monitored for total period of 6 days and 1 hour 2. Intermittent atrial fibrillation, 72% of the time with longest episode lasting 4 days and 14 hours with maximum heart rate 133 beats per minute 3. Average heart rate is 85 beats per minute 4. Total of 22,010 PACs accounting for 3.6% of total beats accounting for frequent PACs 5. No significant pauses noted 6. No patient reported symptoms MTDD
[2021-12-27 11:14] LABS: Hematocrit 25.5 % (37.0-47.0); Hemoglobin 7.9 g/dl (12.0-16.0); Mean Corpuscular Hemoglobin 28.7 pg (27.0-33.0); Mean Corpuscular Volume 92.7 fL (80.0-98.0); Mean Platelet Volume 9.4 fL (9.4-12.3); NRBC Pct Auto 0.8 /100WBC (0.0-0.2); Platelet Count 161 X10*3/uL (160-400); Red Blood Count 2.75 X10*6/uL (4.20-5.50); Red Cell Distribution Width 24.1 % (11.0-16.0); White Blood Count 11.2 X10*3/uL (4.8-10.8)
[2021-12-27 11:26] LABS: Alanine Aminotransferase 56 U/L (0-31); Albumin Level 2.9 g/dL (3.5-5.0); Alkaline Phosphatase 163 U/L (39-117); Anion Gap 12 (12-20); Aspartate Amino Transferase 56 U/L (5-31); Bilirubin Total 0.9 mg/dL (0.0-1.0); Blood Urea Nitrogen 22 mg/dL (9-16); Calcium 8.2 mg/dL (8.4-10.2); Carbon Dioxide 25 mmol/L (22-29); Chloride 105 mmol/L (96-108); Estimated Glomerular Filt Rate > 60; Glucose Random 128 mg/dL (60-115); Potassium 3.1 mmol/L (3.3-5.1); Sodium 139 mmol/L (135-145)
[2021-12-27 11:51] LABS: Band Neutrophils Percent 6 % (3-5); Lymphocytes Absolute Manual 0.4 X10*3/uL (1.2-4.9); Lymphocytes Percent Manual 4 % (20-40); Metamyelocytes Absolute 0.3 X10*3/uL; Metamyelocytes Percent 3 %; Monocytes Absolute Manual 0.2 X10*3/uL (0.1-1.2); Monocytes Percent Manual 2 % (2-11); Neutrophils Absolute Manual 10.2 X10*3/uL (2.0-8.3); Neutrophils Percent Manual 85 % (45-73); Nucleated Red Blood Cells 2 /100WBC (0-0)
[2021-12-27 11:54] LABS: Ovalocytes 1+ (5-14) /OIF; Platelet Estimate NORMAL (NORMAL); Platelet Morphology Comment NORMAL; Polychromasia 1+ (0-2) /OIF; RBC Morphology NOTED; Tear Drop Cells 1+ (0-2) /OIF
== END ==
LOC: HO.CARD 08:26
PROVIDERS: Internal Medicine Medical Oncology; PCP Nurse Practitioner Family; Visit Provider Internal Medicine Cardiovascular Disease
DX: R07.9 Chest pain, unspecified (principal); I47.1 Supraventricular tachycardia; Z98.890 Other specified postprocedural states
CPT/HCPCS: 36415; 80053; 85007; 85027; 93246; 93308; 93356; Q9957

== ENCOUNTER 2021-12-29 14:49 | Inpatient (IN) | payer OTHER, SELFPAY ==
--- NOTE | ~2021-12-29 | XR_ITS ---
EXAMINATION: XR CHEST CLINICAL INFORMATION: 66-year-old female with shortness of breath COMPARISON: 12/29/2021 TECHNIQUE: Frontal view of the chest was obtained. FINDINGS: There is stable position of Port-A-Cath with the tip over the SVC. Patient is rotated to the right. Right lung is well expanded. There is mild increased attenuation of the left lung due to atelectasis at the left lung base. There is blunting of left costophrenic angle likely due to pleural effusion. XR/XR chest 1V IMPRESSION: No interval change
--- NOTE | ~2021-12-29 | XR_ITS ---
EXAMINATION: XR CHEST CLINICAL INFORMATION: Short of breath COMPARISON: 12/16/2021 TECHNIQUE: Frontal view of the chest was obtained. FINDINGS: CT compatible left chest wall port terminates over the midline, likely in the brachiocephalic vein. Cervical fusion hardware. The lungs are well expanded. Increased small left-sided pleural effusion with airspace opacity. No edema. No pneumothorax. The cardiomediastinal silhouette is unchanged. XR/XR chest 1V IMPRESSION: Increased small left-sided pleural effusion with airspace opacity which could represent atelectasis or pneumonia.
--- NOTE | ~2021-12-29 | US_ITS ---
EXAMINATION: US VENOUS ULTRASOUND WITH DOPPLER LOWER EXTREMITY, BILATERAL CLINICAL INFORMATION: Bilateral lower extremity edema COMPARISON: Bilateral lower extremity venous ultrasound 09/28/2021 TECHNIQUE: Ultrasound of the deep veins is performed from the hip to the calf with compression sonography and color and pulse Doppler assessment. Spectral analysis with color-flow imaging is performed. FINDINGS: Examination is somewhat limited due to large body habitus and lower extremity edema. RIGHT: There is normal venous compression and respiratory variation and augmented flow. The visualized common femoral vein, superficial femoral vein, profunda femoral vein, popliteal vein, and the trifurcation region shows no evidence of deep venous thrombosis. The right peroneal veins were not visualized. LEFT: There is normal venous compression and respiratory variation and augmented flow. The visualized common femoral vein, superficial femoral vein, profunda femoral vein, popliteal vein, and the trifurcation region shows no evidence of deep venous thrombosis. If the patient's symptoms persist, followup ultrasound in 5 days 7 days might be of value to exclude proximal propagation from a non-visualized calf vein. US/US venous duplex LE BI IMPRESSION: 1. Somewhat limited exam due to body habitus and lower extremity edema. 2. No DVT demonstrated in the bilateral lower extremities.
[2021-12-29 15:14] VITALS: BP 137/64; PULSE 92; RESP 20; TEMP 36.3; BMI 45.3
--- NOTE | 2021-12-29 15:25 | ECG_ITS ---
Test Reason : SOB Blood Pressure : / mmHG Vent. Rate : 089 BPM Atrial Rate : 096 BPM P-R Int : 000 ms QRS Dur : 068 ms QT Int : 272 ms P-R-T Axes : 000 043 121 degrees QTc Int : 330 ms Normal sinus rhythm with occasional Premature ventricular complexes Premature atrial complexes Nonspecific ST abnormality Low voltage QRS Abnormal ECG When compared with ECG of 24-NOV-2021 15:05, Normal sinus rhythm has replaced Supraventricular tachycardia ST less depressed in Lateral leads Premature ventricular complexes Premature atrial complexes are new Referred By: Supriya Siddiqi Electronically Signed By:REN SLADE MD
--- NOTE | 2021-12-29 15:26 | ED.SOB ---
HPI - SOB/Dyspnea General Chief Complaint: Dyspnea Stated Complaint: SOB, breast cancer - SOB increased today Time Seen by Provider: 12/29/21 15:24 Source: patient and EMS Mode of arrival: EMS Limitations: no limitations History of Present Illness HPI Narrative: 66 yo female with history o fDCIS right breast s/p lumpectomy on carboplatin/docetaxel/Herceptin/pertuzumab based chemotherapy started on 11/16 complicated by pancolitis, acute blood loss anemia and dehydration requiring admission to the hospital 12/14-12/19, hx dermatomyositis on chronic prednisone, asthma, depression, insomnia who presents to the ER for evaluation of worsening SOB for the last 1 week. She last got her infusion of chemo yesterday. She states last night her breathing got significantly worse. She was unable to lay flat or sleep because of difficulty breathing. She was recently started on lasix for leg swelling and weight gain. At the start of chemo 9 weeks ago she weighed 99kg and now weighs 116kg. She denies any chest pain, fever, chills, nausea, vomiting, diarrhea or abdominal pain. She had bloody diarrhea that resolved 1 week ago. MD elicited complaint: shortness of breath Pertinent past history: other (anemia) Onset (ago): week(s) (1) Timing: constant and progressively worsening Severity: severe Exacerbating factors: lying flat, exertion, inspiration and talking Relieving factors: rest and upright position Known history of: asthma Associated symptoms: orthopnea and lower extremity pain Treatment prior to arrival: none Related Data Home oxygen amount: none Home Medications Medication Instructions Recorded Confirmed ketoconazole 2 % shampoo 1 appl topical 2XW 09/28/21 12/14/21 cyanocobalamin (vitamin B-12) 1,000 mcg PO BEDTIME 10/12/21 12/14/21 1,000 mcg capsule lutein 40 mg capsule 40 mg PO DAILY 10/30/21 12/14/21 calcium carbonate 600 mg-vitamin 1 tab PO DAILY 10/31/21 12/14/21 D3 10 mcg (400 unit) tablet prednisone 10 mg tablet 40 mg PO DAILY 11/08/21 12/14/21 cholecalciferol (vitamin D3) 25 25 mcg PO DAILY 11/23/21 12/14/21 mcg (1,000 unit) tablet alendronate 70 mg tablet 70 mg PO FR@0600 11/29/21 12/14/21 ondansetron 8 mg disintegrating 8 mg PO Q8H PRN Nausea 11/29/21 12/14/21 tablet Previous Rx's Medication Instructions Recorded diphenhydramine HCl 25 mg capsule 25 mg PO TID PRN itching #14 caps 06/24/21 (Benadryl) metoprolol succinate 50 mg 50 mg PO DAILY #30 tabs 11/27/21 tablet,extended release 24 hr immune glob,gamma(IgG) 10 70 g IV DAILY #7 ea 11/29/21 [id number] 0 to 50 mcg/mL IV solution (Gammagard S-D (IgA < 1 mcg/mL)) clonidine HCl 0.2 mg tablet 0.2 mg PO BEDTIME #90 tabs 12/13/21 duloxetine 60 mg capsule,delayed 60 mg PO BEDTIME #90 caps 12/13/21 release hydrocortisone 2.5 % topical cream 1 appl TX BID #30 grams 12/19/21 with perineal applicator (Proctozone-HC) loperamide 2 mg capsule 2 mg PO Q4H PRN Diarrhea #24 caps 12/19/21 potassium chloride 20 mEq 20 meq PO DAILY #2 tabs 12/19/21 tablet,extended release(part/cryst) furosemide 20 mg tablet (Lasix) 20 mg PO DAILY #30 tabs 12/28/21 Allergies Allergy/AdvReac Type Severity Reaction Status Date / Time No Known Allergies Allergy Verified 12/27/21 00:53 Review of Systems Review of Systems: Constitutional: No Fever, No Chills ENT/Mouth: No sore throat, No Rhinorrhea, No Swallowing Difficulty Eyes: No Eye Pain, No Swelling, No Redness Cardiovascular: No Chest Pain, + SOB, + Orthopnea, + Edema Respiratory: No Cough, No Sputum, No Wheezing, No dyspnea Gastrointestinal: No Nausea, No Vomiting, No Diarrhea, No abdominal Pain, No Hematochezia, No Melena Genitourinary: No Dysuria, No Urinary Frequency, No Hematuria Musculoskeletal: No joint pain, No Myalgias Skin: No Skin Lesions, No rash Neuro: No Weakness, No Numbness, No Dizziness, No Headache Psych: + Anxiety/Panic, No Depression Heme/Lymph: No Bruising, No Lymphadenopathy Endocrine: No Polyuria, No Polydipsia [facility] Past Medical History Medical History (Updated 12/29/21 @ 17:38 by CHI Tee) Anxiety Breast calcification, right Breast cancer, right Colitis Dermatomyositis Encounter to establish care History of COVID-19 Hypertension Insomnia Invasive ductal carcinoma of right breast Lumbar degenerative disc disease Major depression, chronic Pain in both feet Pancolitis Pancytopenia Pedal edema Port-A-Cath in place Surgical History (Updated 12/15/21 @ 13:03 by Patrick Hernández MD) History of arthroscopic knee surgery History of section History of cholecystectomy History of fusion of cervical spine History of gastric bypass History of hysterectomy History of tonsillectomy Hx of colonoscopy Status post right breast lumpectomy Family History Family History Mother No problems noted. Father Breast cancer Bone cancer Brother Substance use disorder Paternal Aunt Breast cancer Social History Social History Household Members: Family Housing: House Are you a primary health care analyst to a significant other at home: No Do you presently have visiting nurse or other home services: No Alcohol intake: former Patient Tobacco Use Status: Former Tobacco user Quit Date: 12 yrs ago Tobacco use type: Cigarette e-Cigarette/Vaping Use: Never Used Advance Directives Date on File: 11/28/21 service: No Current occupational status: unemployed and retired Cognitive needs: Yes (cane) Hearing needs: No Vision needs: Yes (glasses) Physical Exam Vital Signs: Vital Signs: Last Vital Signs Temp 97.3 F 12/29/21 15:14 Pulse 84 12/29/21 16:27 Resp 22 H 12/29/21 16:32 BP 137/64 12/29/21 15:14 O2 Del Method 12/29/21 15:14 BMI result Body Mass Index 45.3 Appearance: Alert. Oriented X3. Moderate respiratory distress, dyspneic Eyes: Pupils equal, round and reactive to light. ENT: Pharynx normal. Neck: Normal inspection. Neck supple. CVS: Normal heart rate and rhythm. Pulses normal. Respiratory: Moderate respiratory distress. Breath sounds with rales to the middle lung lord, diminished at right base Abdomen: Obese, Soft and nontender. +BS x4 Skin: Skin warm and dry. Normal skin color. Normal skin turgor. No rashes. Extremities:3+ bilateral pitting lower extremity edema to the upper thighs. No warmth, erythema or calf tenderness. Neuro: Oriented X 3. No motor deficit. No sensory deficit. Course Course Course Narrative: 66-year-old female with history of invasive ductal carcinoma of the right breast on current chemotherapy, history of dermatomyositis on chronic prednisone (not on PJP ppx) who presents to the ER with worsening SOB x1 week, signficantly worse in last 24 hours. +orthopnea, +LE edema and 30lb weight gain in the last 9 weeks with chemo. CXR with volume overload. IV lasix ordered. Placed on rescue CPAP of 8 with 35% Fio2 and tolerating well, breathing much more comfortably. Doubt PE given her physical exam findings and CXR findings. Will hold off on CTA and check LE dopplers given her edema. Reevaluation(s) Reevaluation #1: No leukocytosis, no neutropenia. No fevers. Procal low. Will hold off on abx for now. K+ 3.1 - repleted both orally and IV. Kline placed with 600 cc UOP. Reevaluation #2: ECHO from last week reviewed - EF 65%, Grade II diastolic dysfunction. Comfortable on low CPAP settings. Will plan to admit for diuresis and further management. Dr. Ramsey down to admit the patient. MDM - SOB/Dyspnea Medical Records Attestation: I reviewed the patient's medical records. Lab Data Attestation: I reviewed the patient's lab results. Result diagrams: 12/29/21 16:26 12/29/21 16:26 Labs: Lab Results 12/29/21 12/29/21 12/29/21 Range/Units 16:25 16:25 16:26 WBC 7.8 (4.8-10.8) X10*3/uL RBC 3.04 L (4.20-5.50) X10*6/uL Hgb 8.7 L (12.0-16.0) g/dl Hct 28.1 L (37.0-47.0) % MCV 92.4 (80.0-98.0) fL MCH 28.6 (27.0-33.0) pg MCHC 31.0 (31.0-35.0) g/dl RDW 24.3 H (11.0-16.0) % Plt Count 174 (160-400) X10*3/uL MPV 9.5 (9.4-12.3) fL Immature Gran % (Auto) 2.3 H (0.0-0.4) % Neut % (Auto) 83.4 H (45-73) % Lymph % (Auto) 10.6 L (20-40) % [place] % (Auto) 3.6 (2-11) % Eos % (Auto) 0.0 (0-4) % Baso % (Auto) 0.1 (0-2) % Lymph # (Auto) 0.8 L (1.2-4.9) X10*3/uL [place] # (Auto) 0.3 (0.1-1.2) X10*3/uL Eos # (Auto) 0.0 (0.0-0.4) X10*3/uL Baso # (Auto) 0.0 (0.0-0.2) X10*3/uL Abs Immat Gran (auto) 0.18 H (0.00-0.03) X10*3/uL Absolute Neuts (auto) 6.5 (2.0-8.3) x10*3/uL Absolute Nucleated RBC 0.030 H (0.0-0.012) X10*3/uL Nucleated RBC % (auto) 0.4 H (0.0-0.2) /100WBC VBG pH (7.32-7.43) VBG pCO2 mmHg VBG pO2 mmHg VBG HCO3 (22-26) mmol/L VBG O2 Saturation % VBG Base Excess mmol/L Sodium (135-145) mmol/L Potassium (3.3-5.1) mmol/L Chloride (96-108) mmol/L Carbon Dioxide (22-29) mmol/L Anion Gap (12-20) BUN (9-16) mg/dL Creatinine (0.5-1.4) mg/dL Estim Creat Clear Calc Estimated GFR Random Glucose (60-115) mg/dL Calcium (8.4-10.2) mg/dL Magnesium (1.6-2.6) mg/dL Total Bilirubin (0.0-1.0) mg/dL Direct Bilirubin (0.0-0.5) mg/dL AST (5-31) U/L ALT (0-31) U/L Alkaline Phosphatase (39-117) U/L Total Creatine Kinase (26-140) U/L Troponin I High Sens (<3.5-17.0) ng/L B-Natriuretic Peptide (<100) pg/mL Total Protein (6.5-8.0) g/dL Albumin (3.5-5.0) g/dL Procalcitonin 0.10 ng/mL COVID-19 (JEN) Negative (Negative) COVID-19 Clin Com See Note Influenza Type A (LISA) (Negative) Influenza Type B (LISA) (Negative) Influenza A & B Note 12/29/21 12/29/21 12/29/21 Range/Units 16:26 16:26 16:26 WBC (4.8-10.8) X10*3/uL RBC (4.20-5.50) X10*6/uL Hgb (12.0-16.0) g/dl Hct (37.0-47.0) % MCV (80.0-98.0) fL MCH (27.0-33.0) pg MCHC (31.0-35.0) g/dl RDW (11.0-16.0) % Plt Count (160-400) X10*3/uL MPV (9.4-12.3) fL Immature Gran % (Auto) (0.0-0.4) % Neut % (Auto) (45-73) % Lymph % (Auto) (20-40) % [place] % (Auto) (2-11) % Eos % (Auto) (0-4) % Baso % (Auto) (0-2) % Lymph # (Auto) (1.2-4.9) X10*3/uL [place] # (Auto) (0.1-1.2) X10*3/uL Eos # (Auto) (0.0-0.4) X10*3/uL Baso # (Auto) (0.0-0.2) X10*3/uL Abs Immat Gran (auto) (0.00-0.03) X10*3/uL Absolute Neuts (auto) (2.0-8.3) x10*3/uL Absolute Nucleated RBC (0.0-0.012) X10*3/uL Nucleated RBC % (auto) (0.0-0.2) /100WBC VBG pH (7.32-7.43) VBG pCO2 mmHg VBG pO2 mmHg VBG HCO3 (22-26) mmol/L VBG O2 Saturation % VBG Base Excess mmol/L Sodium 144 (135-145) mmol/L Potassium 3.1 L (3.3-5.1) mmol/L Chloride 106 (96-108) mmol/L Carbon Dioxide 26 (22-29) mmol/L Anion Gap 15 (12-20) BUN 23 H (9-16) mg/dL Creatinine 0.78 (0.5-1.4) mg/dL Estim Creat Clear Calc 89.5 Estimated GFR > 60 Random Glucose 109 (60-115) mg/dL Calcium 8.1 L (8.4-10.2) mg/dL Magnesium 1.6 (1.6-2.6) mg/dL Total Bilirubin 1.2 H (0.0-1.0) mg/dL Direct Bilirubin 0.5 (0.0-0.5) mg/dL AST 51 H (5-31) U/L ALT 48 H (0-31) U/L Alkaline Phosphatase 156 H (39-117) U/L Total Creatine Kinase 36 (26-140) U/L Troponin I High Sens 25.1 H D (<3.5-17.0) ng/L B-Natriuretic Peptide 149 H (<100) pg/mL Total Protein 6.6 (6.5-8.0) g/dL Albumin 2.9 L (3.5-5.0) g/dL Procalcitonin ng/mL COVID-19 (JEN) (Negative) COVID-19 Clin Com Influenza Type A (LISA) Negative (Negative) Influenza Type B (LISA) Negative (Negative) Influenza A & B Note See Note 12/29/21 Range/Units 16:28 WBC (4.8-10.8) X10*3/uL RBC (4.20-5.50) X10*6/uL Hgb (12.0-16.0) g/dl Hct (37.0-47.0) % MCV (80.0-98.0) fL MCH (27.0-33.0) pg MCHC (31.0-35.0) g/dl RDW (11.0-16.0) % Plt Count (160-400) X10*3/uL MPV (9.4-12.3) fL Immature Gran % (Auto) (0.0-0.4) % Neut % (Auto) (45-73) % Lymph % (Auto) (20-40) % [place] % (Auto) (2-11) % Eos % (Auto) (0-4) % Baso % (Auto) (0-2) % Lymph # (Auto) (1.2-4.9) X10*3/uL [place] # (Auto) (0.1-1.2) X10*3/uL Eos # (Auto) (0.0-0.4) X10*3/uL Baso # (Auto) (0.0-0.2) X10*3/uL Abs Immat Gran (auto) (0.00-0.03) X10*3/uL Absolute Neuts (auto) (2.0-8.3) x10*3/uL Absolute Nucleated RBC (0.0-0.012) X10*3/uL Nucleated RBC % (auto) (0.0-0.2) /100WBC VBG pH 7.47 H (7.32-7.43) VBG pCO2 39 mmHg VBG pO2 65 mmHg VBG HCO3 28 H (22-26) mmol/L VBG O2 Saturation 91.0 % VBG Base Excess 4.8 mmol/L Sodium (135-145) mmol/L Potassium (3.3-5.1) mmol/L Chloride (96-108) mmol/L Carbon Dioxide (22-29) mmol/L Anion Gap (12-20) BUN (9-16) mg/dL Creatinine (0.5-1.4) mg/dL Estim Creat Clear Calc Estimated GFR Random Glucose (60-115) mg/dL Calcium (8.4-10.2) mg/dL Magnesium (1.6-2.6) mg/dL Total Bilirubin (0.0-1.0) mg/dL Direct Bilirubin (0.0-0.5) mg/dL AST (5-31) U/L ALT (0-31) U/L Alkaline Phosphatase (39-117) U/L Total Creatine Kinase (26-140) U/L Troponin I High Sens (<3.5-17.0) ng/L B-Natriuretic Peptide (<100) pg/mL Total Protein (6.5-8.0) g/dL Albumin (3.5-5.0) g/dL Procalcitonin ng/mL COVID-19 (JEN) (Negative) COVID-19 Clin Com Influenza Type A (LISA) (Negative) Influenza Type B (LISA) (Negative) Influenza A & B Note ECG Data Attestation: I personally reviewed and interpreted this ECG as follows: ECG interpretation date: 12/29/21 ECG interpretation time: 17:35 Prior ECG tracings: available for review Interpretation: normal sinus rhythm, HR 89 bpm, low voltage QRS, no ST segment elevation or depression. Critical Care Time Critical Care Time Critical Care Time: Yes Total Critical Care Time: 42 Attestation: I have personally provided critical care time exclusive of time spent on separately billable procedures. Time includes review of lab data, radiology results, discussion with consultants, and monitoring for potential decompensation. Intervention performed as documented. Discharge Plan Discharge Clinical Impression: Volume overload, Acute diastolic (congestive) heart failure Patient Disposition: Admitted As Inpatient
[2021-12-29] MEDS: Albuterol Sulfate 2.5 MG, Albuterol Sulfate (0.083%) 2.5 MG 5 MG INHALE (16:24)
[2021-12-29 16:27] VITALS: PULSE 84; RESP 22; O2SAT 100
[2021-12-29] MEDS: Furosemide 40 MG/4 ML VIAL IVPUSH ×2 (16:30→18:01)
[2021-12-29 16:32] VITALS: PULSE 89; RESP 22; O2SAT 100
[2021-12-29 16:32] LABS: MANUAL DIFF FLAG NO
--- NOTE | 2021-12-29 16:32 | PC.NURSE ---
placed on cpap tolerating well. tolerated childers placement well as well. 600ml pale yellow urine output. port accessed as well- labs sent and medicated per emar. pt given warm blankets, lights turned down and pt is resting. denied having any questions about plan of care. will continue to monitor.
[2021-12-29 16:33] LABS: VBG Base Excess 4.8 mmol/L; VBG HCO3 28 mmol/L (22-26); VBG pCO2 39 mmHg; VBG pH 7.47 (7.32-7.43); VBG pO2 65 mmHg
[2021-12-29 16:35] LABS: Basophils Percent Auto 0.1 % (0-2); Hematocrit 28.1 % (37.0-47.0); Hemoglobin 8.7 g/dl (12.0-16.0); Imm Gran Abs Auto 0.18 X10*3/uL (0.00-0.03); Imm Gran Pct Auto 2.3 % (0.0-0.4); Lymphocytes Absolute Auto 0.8 X10*3/uL (1.2-4.9); Lymphocytes Percent Auto 10.6 % (20-40); Mean Corpuscular Hemoglobin 28.6 pg (27.0-33.0); Mean Corpuscular Volume 92.4 fL (80.0-98.0); Mean Platelet Volume 9.5 fL (9.4-12.3); Monocytes Absolute Auto 0.3 X10*3/uL (0.1-1.2); Monocytes Percent Auto 3.6 % (2-11); NRBC Pct Auto 0.4 /100WBC (0.0-0.2); Neutrophils Absolute Auto 6.5 x10*3/uL (2.0-8.3); Neutrophils Percent Auto 83.4 % (45-73); Platelet Count 174 X10*3/uL (160-400); Red Blood Count 3.04 X10*6/uL (4.20-5.50); Red Cell Distribution Width 24.3 % (11.0-16.0); White Blood Count 7.8 X10*3/uL (4.8-10.8)
[2021-12-29 16:50] LABS: Influenza A Negative (Negative); Influenza B2 Negative (Negative)
[2021-12-29 16:50] LABS: COVID-19 Test Negative (Negative); IDNOW Serial# 16C4AD1C
[2021-12-29 16:55] LABS: Alanine Aminotransferase 48 U/L (0-31); Albumin Level 2.9 g/dL (3.5-5.0); Alkaline Phosphatase 156 U/L (39-117); Anion Gap 15 (12-20); Aspartate Amino Transferase 51 U/L (5-31); Bilirubin Direct 0.5 mg/dL (0.0-0.5); Bilirubin Total 1.2 mg/dL (0.0-1.0); Blood Urea Nitrogen 23 mg/dL (9-16); Calcium 8.1 mg/dL (8.4-10.2); Carbon Dioxide 26 mmol/L (22-29); Chloride 106 mmol/L (96-108); Creatinine Clr Calc Pharmacy 89.5; Estimated Glomerular Filt Rate > 60; Glucose Random 109 mg/dL (60-115); Magnesium 1.6 mg/dL (1.6-2.6); Potassium 3.1 mmol/L (3.3-5.1); Sodium 144 mmol/L (135-145); Total Protein 6.6 g/dL (6.5-8.0)
[2021-12-29 16:56] LABS: Troponin-I High Sensitivity 25.1 ng/L (<3.5-17.0)
[2021-12-29] MEDS: Albumin Human 25 % 100 ML IV (17:14)
[2021-12-29] MEDS: Potassium Chloride ER 20 MEQ TAB.ER.PRT 40 MEQ PO (17:14)
[2021-12-29 17:28] LABS: Venous Blood Gas Refer to POC result
[2021-12-29 18:02] LABS: B Type Natriuretic Peptide 149 pg/mL (<100)
--- NOTE | 2021-12-29 18:18 | P.HPHOSP_ITS ---
History of Present Illness Date of Service: 12/29/21 Chief Complaint: dyspnea, edema, weight gain 66yo F with invasive DCIS of right breast s/p lumpectomy who started carboplatin/docetaxel/trastuzumab/pertuzumab on 11/16/21 and got her 3rd cycle yesterday. Her oncologist is Dr Hernández here at [facility]. Recent admissions 11/23- 11/27/21 for SVT and colitis, again 12/24-12/19/21 for colitis. She is on IVIg and a prolonged steroid taper for dermatomyositis as prescribed by her modern languages professor, Dr Felix. She was on 90 mg of prednisone in June and is currently on 40 mg. She presents today with worsening exertional dyspnea for the past week. She complains of orthopnea and leg swelling and was just prescribed furosemide yesterday. An echocardiogram done on 12/27/21 as an outpatient demonstrated normal LVEF and grade 2 diastolic dysfunction. She notes that at the beginning of chemotherapy, she weighed 99 kg; currently, she weighs 116 kg. No chest pain. She does have a history of asthma but is not wheezing. In the ED, she was given IV furosemide and placed on CPAP of 8 cm H2O @ 35% fiO2. Currently she is breathing comfortably. Bilateral leg Dopplers are pending. BNP is 149 and high-sensitivity troponin-I 25. EKG with sinus tachycardia. She is not neutropenic. Review of Systems Review of Systems: Yes all other systems are reviewed and are negative [facility] Medical History Anxiety Breast calcification, right Breast cancer, right Colitis Dermatomyositis Encounter to establish care History of COVID-19 Hypertension Insomnia Invasive ductal carcinoma of right breast Lumbar degenerative disc disease Major depression, chronic Pain in both feet Pancolitis Pancytopenia Pedal edema Port-A-Cath in place Family History Mother No problems noted. Father Breast cancer Bone cancer Brother Substance use disorder Paternal Aunt Breast cancer Surgical History History of arthroscopic knee surgery History of section History of cholecystectomy History of fusion of cervical spine History of gastric bypass History of hysterectomy History of tonsillectomy Hx of colonoscopy Status post right breast lumpectomy Social History Household Members: Family Housing: House Are you a primary career technical education instructor to a significant other at home: No Do you presently have visiting nurse or other home services: No Alcohol intake: former Patient Tobacco Use Status: Former Tobacco user Quit Date: 12 yrs ago Tobacco use type: Cigarette e-Cigarette/Vaping Use: Never Used Advance Directives Date on File: 11/28/21 service: No Current occupational status: unemployed and retired Cognitive needs: Yes (cane) Hearing needs: No Vision needs: Yes (glasses) Meds Allergies Allergy/AdvReac Type Severity Reaction Status Date / Time No Known Allergies Allergy Verified 12/27/21 00:53 Active Medications: Current Medications Furosemide (Furosemide 40 Mg/4 Ml Vial) 40 mg IVPUSH BID@0900,1800 CHELSIE; Protocol Last Admin: 12/29/21 18:01 Dose: 40 mg Potassium Chloride (Potassium Chloride/H20) 10 meq in 100 mls @ 100 mls/hr IV Q1H CHELSIE Stop: 12/29/21 20:14 Pharmacy Consult (Consult Rx Perform Med Rec) 1 each MISCELLANE STAT STA Stop: 12/29/21 17:51 Home Medications Medication Instructions Recorded Confirmed Last Taken Type ketoconazole 2 % shampoo 1 appl topical 2XW 09/28/21 12/14/21 Unknown History cyanocobalamin (vitamin B-12) 1,000 mcg PO BEDTIME 10/12/21 12/14/21 Unknown History 1,000 mcg capsule lutein 40 mg capsule 40 mg PO DAILY 10/30/21 12/14/21 Unknown History calcium carbonate 600 mg-vitamin 1 tab PO DAILY 10/31/21 12/14/21 Unknown History D3 10 mcg (400 unit) tablet prednisone 10 mg tablet 40 mg PO DAILY 11/08/21 12/14/21 12/14/21 History cholecalciferol (vitamin D3) 25 25 mcg PO DAILY 11/23/21 12/14/21 Unknown History mcg (1,000 unit) tablet alendronate 70 mg tablet 70 mg PO FR@0600 11/29/21 12/14/21 12/08/21 History ondansetron 8 mg disintegrating 8 mg PO Q8H PRN Nausea 11/29/21 12/14/21 Unknown History tablet Physical Exam Vital Signs and Narrative: Vital Signs: Last Vital Signs Temp 97.3 F 12/29/21 15:14 Pulse 84 12/29/21 16:27 Resp 22 H 12/29/21 16:32 BP 137/64 12/29/21 15:14 O2 Del Method 12/29/21 15:14 BMI result Body Mass Index 45.3 Gen: mild respiratory distress HEENT: sclera anicteric, moist mucus membranes Neck: supple, Portacath in place R subclavian Lungs: diminished L side, mildly tachypneic Heart: regular rate and rhythm, no murmurs Abd: soft, non-tender, non-distended, obese Ext: 3+ bilateral edema Skin: warm/well-perfused Neuro: alert and oriented x3, no focal findings Psych: appropriate affect Results Labs CBC and Chem 7: 12/29/21 16:26 12/29/21 16:26 Labs: Laboratory Results - last 24 hr 12/29/21 12/29/21 12/29/21 16:25 16:25 16:26 MCV 92.4 MCH 28.6 MCHC 31.0 RDW 24.3 H Plt Count 174 MPV 9.5 Immature Gran % (Auto) 2.3 H Neut % (Auto) 83.4 H Lymph % (Auto) 10.6 L [place] % (Auto) 3.6 Eos % (Auto) 0.0 Baso % (Auto) 0.1 Lymph # (Auto) 0.8 L [place] # (Auto) 0.3 Eos # (Auto) 0.0 Baso # (Auto) 0.0 Abs Immat Gran (auto) 0.18 H Absolute Neuts (auto) 6.5 Absolute Nucleated RBC 0.030 H Nucleated RBC % (auto) 0.4 H VBG pH VBG pCO2 VBG pO2 VBG HCO3 VBG O2 Saturation VBG Base Excess Anion Gap Estim Creat Clear Calc Estimated GFR Random Glucose Calcium Magnesium Total Bilirubin Direct Bilirubin AST ALT Alkaline Phosphatase Total Creatine Kinase Troponin I High Sens B-Natriuretic Peptide Total Protein Albumin Procalcitonin 0.10 COVID-19 (JEN) Negative COVID-19 Clin Com See Note Influenza Type A (LISA) Influenza Type B (LISA) Influenza A & B Note 12/29/21 12/29/21 12/29/21 16:26 16:26 16:26 MCV MCH MCHC RDW Plt Count MPV Immature Gran % (Auto) Neut % (Auto) Lymph % (Auto) [place] % (Auto) Eos % (Auto) Baso % (Auto) Lymph # (Auto) [place] # (Auto) Eos # (Auto) Baso # (Auto) Abs Immat Gran (auto) Absolute Neuts (auto) Absolute Nucleated RBC Nucleated RBC % (auto) VBG pH VBG pCO2 VBG pO2 VBG HCO3 VBG O2 Saturation VBG Base Excess Anion Gap 15 Estim Creat Clear Calc 89.5 Estimated GFR > 60 Random Glucose 109 Calcium 8.1 L Magnesium 1.6 Total Bilirubin 1.2 H Direct Bilirubin 0.5 AST 51 H ALT 48 H Alkaline Phosphatase 156 H Total Creatine Kinase 36 Troponin I High Sens 25.1 H D B-Natriuretic Peptide 149 H Total Protein 6.6 Albumin 2.9 L Procalcitonin COVID-19 (JEN) COVID-19 Clin Com Influenza Type A (LISA) Negative Influenza Type B (LISA) Negative Influenza A & B Note See Note 12/29/21 16:28 MCV MCH MCHC RDW Plt Count MPV Immature Gran % (Auto) Neut % (Auto) Lymph % (Auto) [place] % (Auto) Eos % (Auto) Baso % (Auto) Lymph # (Auto) [place] # (Auto) Eos # (Auto) Baso # (Auto) Abs Immat Gran (auto) Absolute Neuts (auto) Absolute Nucleated RBC Nucleated RBC % (auto) VBG pH 7.47 H VBG pCO2 39 VBG pO2 65 VBG HCO3 28 H VBG O2 Saturation 91.0 VBG Base Excess 4.8 Anion Gap Estim Creat Clear Calc Estimated GFR Random Glucose Calcium Magnesium Total Bilirubin Direct Bilirubin AST ALT Alkaline Phosphatase Total Creatine Kinase Troponin I High Sens B-Natriuretic Peptide Total Protein Albumin Procalcitonin COVID-19 (JEN) COVID-19 Clin Com Influenza Type A (LISA) Influenza Type B (LISA) Influenza A & B Note Imaging Radiologist's Impressions: Impressions Chest X-Ray 12/29/21 15:45 IMPRESSION: Increased small left-sided pleural effusion with airspace opacity which could represent atelectasis or pneumonia. Assessment and Plan (1) Volume overload: Status: Acute (2) Acute diastolic (congestive) heart failure: Status: Acute Plan 66yo F with invasive DCIS of right breast s/p lumpectomy and 3 cycles of chemotherapy, dermatomyositis on prolonged steroid taper + IVIg, and asthma; recent admissions for SVT and colitis; who presents with 1 week of worsening ex ertional dyspnea and orthopnea associated with leg edema and 17 kg weight gain. Impression is of [id number] HFpEF # acute/chronic HFpEF exacerbation - admit to [facility], continue furosemide diuresis, monitor electrolytes and BNP, consult Cardiology - continue metoprolol succinate # acute hypoxic respiratory failure - diurese as above, wean to O2 via NC # hypoK - replete, recheck in AM # hx SVT - continue metoprolol succinate # dermatomyositis - continue prednisone; stress-dose hydrocortisone if develops hypotension or critical illness # B12 deficiency - continue repletion # depression - continue duloxetine, clonidine # VTE ppx: LMWH # code: full I anticipate that the patient will stay at least 2 midnights in hospital due to the above reasons. It is neither reasonable nor safe to care for them in a less acute setting. Quality Stroke Does the patient have a stroke diagnosis?: No VTE Prior VTE?: No VTE Risk Level:: Medical - moderate - high VTE Device Contraindication: N/A - Device Ordered VTE Drug Contraindication: N/A - Med Ordered
[2021-12-29] MEDS: Potassium Chloride/H20 10 MEQ/100 ML PIGGYBACK 100 MEQ IV ×2 (18:20→19:40)
--- NOTE | 2021-12-29 18:49 | PHA.MEDREC ---
Pharmacy Consult ? Medication Reconciliation Pharmacy has completed the medication reconciliation. Spoke to pt's stepdaughter Sonal who read through home medications. Did state that pt takes azathioprine 50mg BID but did not see that i nclaim history; she read the bottle dose and directions to me over the phone. Also stated pt takes lisinopril/HCTZ combo tablet also not in claim history but was confident that both of these non-history meds are current.
[2021-12-29] MEDS: Enoxaparin Sodium 40 MG/0.4 ML SYRINGE SUBCUT (19:46)
--- NOTE | 2021-12-29 19:47 | PC.NURSE ---
Pt k+ is running as order by the provider. Pt does not have any apparent of distress. Pt is on the telemetry and it shows sinus tachy. will continue to monitor.
[2021-12-29 20:28] LABS: Troponin-I High Sensitivity 33.9 ng/L (<3.5-17.0)
[2021-12-29 20:55] VITALS: BP 122/63; PULSE 100; RESP 20; TEMP 36.7; O2SAT 97
[2021-12-29] MEDS: DULoxetine HCl 60 MG CAPSULE.DR PO (21:01)
[2021-12-29] MEDS: cloNIDine HCL 0.2 MG TABLET PO (21:01)
--- NOTE | 2021-12-29 21:06 | PC.NURSE ---
Pt Cath was empty, pt night meds were administered as order. Pt has NC 2L, Pt V/S ar estable and pt has edema +4. Pt has + skin turgor, and is a/o x4. will continue to moniotr.
[2021-12-29 22:34] VITALS: PULSE 99; RESP 20
--- NOTE | 2021-12-30 | ECG_ITS ---
Test Reason : RHYTHM CHANGE Blood Pressure : / mmHG Vent. Rate : 097 BPM Atrial Rate : 000 BPM P-R Int : 000 ms QRS Dur : 064 ms QT Int : 328 ms P-R-T Axes : 000 067 076 degrees QTc Int : 416 ms Normal sinus rhythm with Premature supraventricular complexes and with occasional , and consecutive Premature ventricular complexes Low voltage QRS Nonspecific ST abnormality Abnormal ECG When compared with ECG of 29-DEC-2021 16:01, No significant changes seen Referred By: Dwight Ramsey Electronically Signed By:REN SLADE MD
[2021-12-30] MEDS: 0.9 % Sodium Chloride Flush 3 ML SYRINGE IVFLUSH ×3 (01:38→17:42)
[2021-12-30 07:55] LABS: B Type Natriuretic Peptide 107 pg/mL (<100)
[2021-12-30 08:03] LABS: Anion Gap 16 (12-20); Blood Urea Nitrogen 21 mg/dL (9-16); Calcium 8.3 mg/dL (8.4-10.2); Carbon Dioxide 31 mmol/L (22-29); Chloride 103 mmol/L (96-108); Creatinine Clr Calc Pharmacy 89.5; Estimated Glomerular Filt Rate > 60; Glucose Random 80 mg/dL (60-115); Magnesium 1.7 mg/dL (1.6-2.6); Potassium 3.6 mmol/L (3.3-5.1); Sodium 146 mmol/L (135-145)
[2021-12-30 08:12] VITALS: BP 139/67; PULSE 98; RESP 26; O2SAT 97
--- NOTE | 2021-12-30 09:07 | PC.NURSE ---
Assumed care of patient at this time.
[2021-12-30] MEDS: Metoprolol Succinate ER 50 MG TAB.ER.24H PO (09:25)
[2021-12-30] MEDS: Potassium Chloride ER 20 MEQ TAB.ER.PRT PO (09:26)
[2021-12-30] MEDS: lisinopriL 20 MG TABLET PO (09:26)
[2021-12-30] MEDS: hydroCHLOROthiazide 12.5 MG TABLET PO (09:26)
[2021-12-30] MEDS: Cholecalciferol (Vitamin D3) 25 MCG TABLET PO (09:26)
[2021-12-30] MEDS: Furosemide 40 MG/4 ML VIAL IVPUSH ×2 (09:26→17:42)
[2021-12-30] MEDS: Calcium + Vitamin D 250 MG TABLET 500 MG PO (09:26)
[2021-12-30] MEDS: azaTHIOprine 50 MG TABLET PO ×2 (09:26→22:21)
[2021-12-30] MEDS: Cyanocobalamin (Vitamin B-12) 1,000 MCG TABLET 1000 MCG PO (09:26)
--- NOTE | 2021-12-30 10:22 | HO.PM.IMPN ---
Subjective Subjective Date of Service: 12/30/21 Interval History: off CPAP and O2 breathing improved legs remain very swollen negative 4.5L thus far Review of Systems Review of Systems: Yes all other systems are reviewed and are negative Physical Exam Vital Signs: Vital Signs: Last Vital Signs Temp 98.1 F 12/29/21 20:55 Pulse 98 12/30/21 08:12 Resp 26 H 12/30/21 08:12 BP 139/67 12/30/21 08:12 Pulse Ox 97 12/30/21 08:12 O2 Del Method 12/30/21 08:12 BMI result Body Mass Index 45.3 Gen: NAD HEENT: sclera anicteric, moist mucus membranes Neck: supple, Portacath in place R subclavian Lungs: diminished L side, no respiratory distress Heart: regular rate and rhythm, no murmurs Abd: soft, non-tender, non-distended, obese Ext: 3+ bilateral pitting leg edema Skin: warm/well-perfused Neuro: alert and oriented x3, no focal findings Psych: appropriate affect Objective Data Active Medications Acetaminophen (Acetaminophen 325 Mg Tablet) 650 mg PO Q6H PRN PRN Reason: Pain, Mild (Pain Scale 1-3) Azathioprine (Azathioprine 50 Mg Tablet) 50 mg PO BID [facility] Last Admin: 12/30/21 09:26 Dose: 50 mg Documented By: JEFFERY Calcium Carbonate/Cholecalciferol (Calcium + Vitamin D 250 Mg Tablet) 500 mg PO DAILY [facility] Last Admin: 12/30/21 09:26 Dose: 500 mg Documented By: JEFFERY Clonidine HCl (Clonidine Hcl 0.2 Mg Tablet) 0.2 mg PO BEDTIME [facility]; Protocol Last Admin: 12/29/21 21:01 Dose: 0.2 mg Documented By: GABRIELA Cyanocobalamin (Cyanocobalamin (Vitamin B-12) 1,000 Mcg Tablet) 1,000 mcg PO DAILY [facility] Last Admin: 12/30/21 09:26 Dose: 1,000 mcg Documented By: JEFFERY Duloxetine HCl (Duloxetine Hcl 60 Mg Capsule.Dr) 60 mg PO BEDTIME [facility] Last Admin: 12/29/21 21:01 Dose: 60 mg Documented By: GABRIELA Enoxaparin Sodium (Enoxaparin Sodium 40 Mg/0.4 Ml Syringe) 40 mg SUBCUT Q24H [facility] Last Admin: 12/29/21 19:46 Dose: 40 mg Documented By: GABRIELA Furosemide (Furosemide 40 Mg/4 Ml Vial) 40 mg IVPUSH BID@0900,1800 [facility]; Protocol Last Admin: 12/30/21 09:26 Dose: 40 mg Documented By: JEFFERY Hydrochlorothiazide (Hydrochlorothiazide 12.5 Mg Tablet) 12.5 mg PO DAILY [facility]; Protocol Last Admin: 12/30/21 09:26 Dose: 12.5 mg Documented By: JEFFERY Lisinopril (Lisinopril 20 Mg Tablet) 20 mg PO DAILY [facility]; Protocol Last Admin: 12/30/21 09:26 Dose: 20 mg Documented By: JEFFERY Metoprolol Succinate (Metoprolol Succinate Er 50 Mg Tab.Er.24h) 50 mg PO DAILY [facility]; Protocol Last Admin: 12/30/21 09:25 Dose: 50 mg Documented By: JEFFERY Morphine Sulfate (Morphine Sulfate 4 Mg/Ml Cartridge) 4 mg IVPUSH Q4H PRN; Protocol PRN Reason: Pain, Severe (Pain Scale 7-10) Ondansetron HCl (Ondansetron Hcl 4 Mg/2 Ml Vial) 4 mg IVPUSH Q8H PRN PRN Reason: Nausea and Vomiting Oxycodone HCl (Oxycodone Hcl Immed Release 5 Mg Tablet) 5 mg PO Q6H PRN PRN Reason: Pain, Severe (Pain Scale 7-10) Potassium Chloride (Potassium Chloride Er 20 Meq Tab.Er.Prt) 20 meq PO DAILY [facility] Last Admin: 12/30/21 09:26 Dose: 20 meq Documented By: JEFFERY Sodium Chloride (0.9 % Sodium Chloride Flush 3 Ml Syringe) 3 ml IVFLUSH QSHIFT [facility] Last Admin: 12/30/21 09:27 Dose: 3 ml Documented By: JEFFERY Vitamin D (Cholecalciferol (Vitamin D3) 25 Mcg Tablet) 25 mcg PO DAILY [facility] Last Admin: 12/30/21 09:26 Dose: 25 mcg Documented By: JEFFERY Labs CBC & Chem 7: 12/29/21 16:26 12/30/21 06:35 Labs: Laboratory Results - last 24 hr 12/29/21 12/29/21 12/29/21 16:25 16:25 16:26 MCV 92.4 MCH 28.6 MCHC 31.0 RDW 24.3 H Plt Count 174 MPV 9.5 Immature Gran % (Auto) 2.3 H Neut % (Auto) 83.4 H Lymph % (Auto) 10.6 L [place] % (Auto) 3.6 Eos % (Auto) 0.0 Baso % (Auto) 0.1 Lymph # (Auto) 0.8 L [place] # (Auto) 0.3 Eos # (Auto) 0.0 Baso # (Auto) 0.0 Abs Immat Gran (auto) 0.18 H Absolute Neuts (auto) 6.5 Absolute Nucleated RBC 0.030 H Nucleated RBC % (auto) 0.4 H VBG pH VBG pCO2 VBG pO2 VBG HCO3 VBG O2 Saturation VBG Base Excess Anion Gap Estim Creat Clear Calc Estimated GFR Random Glucose Calcium Magnesium Total Bilirubin Direct Bilirubin AST ALT Alkaline Phosphatase Total Creatine Kinase Troponin I High Sens B-Natriuretic Peptide Total Protein Albumin Procalcitonin 0.10 COVID-19 (JEN) Negative COVID-19 Clin Com See Note Influenza Type A (LISA) Influenza Type B (LISA) Influenza A & B Note 12/29/21 12/29/21 12/29/21 16:26 16:26 16:26 MCV MCH MCHC RDW Plt Count MPV Immature Gran % (Auto) Neut % (Auto) Lymph % (Auto) [place] % (Auto) Eos % (Auto) Baso % (Auto) Lymph # (Auto) [place] # (Auto) Eos # (Auto) Baso # (Auto) Abs Immat Gran (auto) Absolute Neuts (auto) Absolute Nucleated RBC Nucleated RBC % (auto) VBG pH VBG pCO2 VBG pO2 VBG HCO3 VBG O2 Saturation VBG Base Excess Anion Gap 15 Estim Creat Clear Calc 89.5 Estimated GFR > 60 Random Glucose 109 Calcium 8.1 L Magnesium 1.6 Total Bilirubin 1.2 H Direct Bilirubin 0.5 AST 51 H ALT 48 H Alkaline Phosphatase 156 H Total Creatine Kinase 36 Troponin I High Sens 25.1 H D B-Natriuretic Peptide 149 H Total Protein 6.6 Albumin 2.9 L Procalcitonin COVID-19 (JEN) COVID-19 Clin Com Influenza Type A (LISA) Negative Influenza Type B (LISA) Negative Influenza A & B Note See Note 12/29/21 12/29/21 12/30/21 16:28 19:42 06:35 MCV MCH MCHC RDW Plt Count MPV Immature Gran % (Auto) Neut % (Auto) Lymph % (Auto) [place] % (Auto) Eos % (Auto) Baso % (Auto) Lymph # (Auto) [place] # (Auto) Eos # (Auto) Baso # (Auto) Abs Immat Gran (auto) Absolute Neuts (auto) Absolute Nucleated RBC Nucleated RBC % (auto) VBG pH 7.47 H VBG pCO2 39 VBG pO2 65 VBG HCO3 28 H VBG O2 Saturation 91.0 VBG Base Excess 4.8 Anion Gap 16 Estim Creat Clear Calc 89.5 Estimated GFR > 60 Random Glucose 80 Calcium 8.3 L Magnesium 1.7 Total Bilirubin Direct Bilirubin AST ALT Alkaline Phosphatase Total Creatine Kinase Troponin I High Sens 33.9 H B-Natriuretic Peptide Total Protein Albumin Procalcitonin COVID-19 (JEN) COVID-19 Clin Com Influenza Type A (LISA) Influenza Type B (LISA) Influenza A & B Note 12/30/21 06:35 MCV MCH MCHC RDW Plt Count MPV Immature Gran % (Auto) Neut % (Auto) Lymph % (Auto) [place] % (Auto) Eos % (Auto) Baso % (Auto) Lymph # (Auto) [place] # (Auto) Eos # (Auto) Baso # (Auto) Abs Immat Gran (auto) Absolute Neuts (auto) Absolute Nucleated RBC Nucleated RBC % (auto) VBG pH VBG pCO2 VBG pO2 VBG HCO3 VBG O2 Saturation VBG Base Excess Anion Gap Estim Creat Clear Calc Estimated GFR Random Glucose Calcium Magnesium Total Bilirubin Direct Bilirubin AST ALT Alkaline Phosphatase Total Creatine Kinase Troponin I High Sens B-Natriuretic Peptide 107 H Total Protein Albumin Procalcitonin COVID-19 (JEN) COVID-19 Clin Com Influenza Type A (LISA) Influenza Type B (LISA) Influenza A & B Note Assessment and Plan (1) Acute diastolic (congestive) heart failure: Status: Acute Plan d#2 66yo F with 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 Admitted for CHF exacerbation # acute/chronic HFpEF exacerbation - continue furosemide diuresis, monitor electrolytes and BNP, Cardiology following - continue metoprolol succinate + lisinopril + HCTZ # acute hypoxic respiratory failure - resolved # hypoK - repleted # hx SVT - continue metoprolol succinate # HTN - continue metoprolol succinate + lisinopril + HCTZ # dermatomyositis - continue prednisone + azathiorpine; stress-dose hydrocortisone if develops hypotension or critical illness; also on IVIg as outpt # B12 deficiency - continue repletion # depression - continue duloxetine, clonidine # VTE ppx: LMWH In my clinical judgment, the patient requires continued hospitalization for the following reasons: IV diuresis Quality Stroke Does the patient have a stroke diagnosis?: No VTE Prior VTE?: No VTE Risk Level:: Medical - moderate - high VTE Device Contraindication: N/A - Device Ordered VTE Drug Contraindication: N/A - Med Ordered
[2021-12-30] MEDS: Acetaminophen 325 MG TABLET 650 MG PO (13:10)
--- NOTE | 2021-12-30 13:28 | MHC.CM.PN ---
Female 66 DX CHF She lives with family. She uses a cane/walker prn. She is independent ADLs. PCP is Leslie Rivera. HCP is on file. She has been vaccinated 2x. DP home self care family will provide transport home.
[2021-12-30 13:42] VITALS: BP 134/73; PULSE 176; RESP 20; TEMP 37.4; O2SAT 98
--- NOTE | 2021-12-30 15:30 | PM.CNCAR ---
History of Present Illness History of Present Illness Date of Service: 12/30/21 Requesting physician: Dwight Ramsey Chief complaint: chf exac Narrative: 66-year-old female with breast cancer currently on chemotherapy presenting significant volume overload and shortness of breath. She has had gradually her breathing got worse and then yesterday there was significant worsening breathing and she came to emergency department. She has gained significant amount of weight. Volume overloaded currently. On Lasix currently. Denies chest discomfort. No palpitations. She had episode of SVT recently when she was in hospital. Telemetry showing in regular rhythm to premature atrial complexes. [facility] Past Medical History Medical History Anxiety Breast calcification, right Breast cancer, right Colitis Dermatomyositis Encounter to establish care History of COVID-19 Hypertension Insomnia Invasive ductal carcinoma of right breast Lumbar degenerative disc disease Major depression, chronic Pain in both feet Pancolitis Pancytopenia Pedal edema Port-A-Cath in place Family History Family History Mother No problems noted. Father Breast cancer Bone cancer Brother Substance use disorder Paternal Aunt Breast cancer Surgical History Surgical History History of arthroscopic knee surgery History of section History of cholecystectomy History of fusion of cervical spine History of gastric bypass History of hysterectomy History of tonsillectomy Hx of colonoscopy Status post right breast lumpectomy Social History Social History Household Members: Family Housing: House Are you a primary critical care physician to a significant other at home: No Do you presently have visiting nurse or other home services: No Alcohol intake: former Patient Tobacco Use Status: Former Tobacco user Quit Date: 12 yrs ago Tobacco use type: Cigarette e-Cigarette/Vaping Use: Never Used Advance Directives: Yes Advance Directives on File: Yes Advance Directives Date on File: 11/28/21 service: No Current occupational status: unemployed and retired Cognitive needs: Yes (cane) Hearing needs: No Vision needs: Yes (glasses) Meds Allergies Allergy/AdvReac Type Severity Reaction Status Date / Time No Known Allergies Allergy Verified 12/27/21 00:53 Active Medications: Current Medications Acetaminophen (Acetaminophen 325 Mg Tablet) 650 mg PO Q6H PRN PRN Reason: Pain, Mild (Pain Scale 1-3) Last Admin: 12/30/21 13:10 Dose: 650 mg Azathioprine (Azathioprine 50 Mg Tablet) 50 mg PO BID [facility] Last Admin: 12/30/21 09:26 Dose: 50 mg Calcium Carbonate/Cholecalciferol (Calcium + Vitamin D 250 Mg Tablet) 500 mg PO DAILY [facility] Last Admin: 12/30/21 09:26 Dose: 500 mg Clonidine HCl (Clonidine Hcl 0.2 Mg Tablet) 0.2 mg PO BEDTIME [facility]; Protocol Last Admin: 12/29/21 21:01 Dose: 0.2 mg Cyanocobalamin (Cyanocobalamin (Vitamin B-12) 1,000 Mcg Tablet) 1,000 mcg PO DAILY [facility] Last Admin: 12/30/21 09:26 Dose: 1,000 mcg Duloxetine HCl (Duloxetine Hcl 60 Mg Capsule.Dr) 60 mg PO BEDTIME [facility] Last Admin: 12/29/21 21:01 Dose: 60 mg Enoxaparin Sodium (Enoxaparin Sodium 40 Mg/0.4 Ml Syringe) 40 mg SUBCUT Q24H [facility] Last Admin: 12/29/21 19:46 Dose: 40 mg Furosemide (Furosemide 40 Mg/4 Ml Vial) 40 mg IVPUSH BID@0900,1800 [facility]; Protocol Last Admin: 12/30/21 09:26 Dose: 40 mg Hydrochlorothiazide (Hydrochlorothiazide 12.5 Mg Tablet) 12.5 mg PO DAILY [facility]; Protocol Last Admin: 12/30/21 09:26 Dose: 12.5 mg Lisinopril (Lisinopril 20 Mg Tablet) 20 mg PO DAILY [facility]; Protocol Last Admin: 12/30/21 09:26 Dose: 20 mg Metoprolol Succinate (Metoprolol Succinate Er 50 Mg Tab.Er.24h) 50 mg PO DAILY [facility]; Protocol Last Admin: 12/30/21 09:25 Dose: 50 mg Morphine Sulfate (Morphine Sulfate 4 Mg/Ml Cartridge) 4 mg IVPUSH Q4H PRN; Protocol PRN Reason: Pain, Severe (Pain Scale 7-10) Ondansetron HCl (Ondansetron Hcl 4 Mg/2 Ml Vial) 4 mg IVPUSH Q8H PRN PRN Reason: Nausea and Vomiting Oxycodone HCl (Oxycodone Hcl Immed Release 5 Mg Tablet) 5 mg PO Q6H PRN PRN Reason: Pain, Severe (Pain Scale 7-10) Potassium Chloride (Potassium Chloride Er 20 Meq Tab.Er.Prt) 20 meq PO DAILY [facility] Last Admin: 12/30/21 09:26 Dose: 20 meq Sodium Chloride (0.9 % Sodium Chloride Flush 3 Ml Syringe) 3 ml IVFLUSH QSHIFT [facility] Last Admin: 12/30/21 09:27 Dose: 3 ml Vitamin D (Cholecalciferol (Vitamin D3) 25 Mcg Tablet) 25 mcg PO DAILY [facility] Last Admin: 12/30/21 09:26 Dose: 25 mcg Home Medications Medication Instructions Recorded Confirmed Last Taken Type ketoconazole 2 % shampoo 1 appl topical 2XW 09/28/21 12/29/21 Unknown History cyanocobalamin (vitamin B-12) 1,000 mcg PO BEDTIME 10/12/21 12/29/21 Unknown History 1,000 mcg capsule calcium carbonate 600 mg-vitamin 1 tab PO DAILY 10/31/21 12/29/21 Unknown History D3 10 mcg (400 unit) tablet prednisone 10 mg tablet 40 mg PO DAILY 11/08/21 12/29/21 12/14/21 History cholecalciferol (vitamin D3) 25 25 mcg PO DAILY 11/23/21 12/29/21 Unknown History mcg (1,000 unit) tablet alendronate 70 mg tablet 70 mg PO FR@0600 11/29/21 12/29/21 12/08/21 History ondansetron 8 mg disintegrating 8 mg PO Q8H PRN Nausea 11/29/21 12/29/21 Unknown History tablet azathioprine 50 mg tablet 50 mg PO BID 12/29/21 12/29/21 Unknown History betamethasone dipropionate 0.05 % 1 appl topical BID 12/29/21 12/29/21 Unknown History lotion hydrochlorothiazide 12.5 mg tablet 12.5 mg PO DAILY 12/29/21 12/29/21 Unknown History lisinopril 20 mg tablet 20 mg PO DAILY 12/29/21 12/29/21 Unknown History Physical Exam Vital Signs: Vital Signs: Last Vital Signs Temp 99.3 F 12/30/21 13:42 Pulse 176 H 12/30/21 13:42 Resp 20 12/30/21 13:42 BP 134/73 12/30/21 13:42 Pulse Ox 98 12/30/21 13:42 O2 Del Method 12/30/21 13:42 BMI result Body Mass Index 45.3 GENERAL APPEARANCE: in no acute distress, pleasant. NECK: no carotid bruit, + jugular venous distention. SKIN: no suspicious lesions, warm and dry. HEART: no murmurs, regular rate and rhythm. LUNGS: crackles at bases. ABDOMEN: soft, nontender. EXTREMITIES: 1-2+ edema. PERIPHERAL PULSES: equal. NEUROLOGIC: No gross deficits, AAO X 3 Objective Labs and Meds Result diagrams: 12/29/21 16:26 12/30/21 06:35 Lab results: Laboratory Results - last 24 hr 12/29/21 12/29/21 12/29/21 16:25 16:25 16:26 WBC 7.8 RBC 3.04 L Hgb 8.7 L Hct 28.1 L MCV 92.4 MCH 28.6 MCHC 31.0 RDW 24.3 H Plt Count 174 MPV 9.5 Immature Gran % (Auto) 2.3 H Neut % (Auto) 83.4 H Lymph % (Auto) 10.6 L [place] % (Auto) 3.6 Eos % (Auto) 0.0 Baso % (Auto) 0.1 Lymph # (Auto) 0.8 L [place] # (Auto) 0.3 Eos # (Auto) 0.0 Baso # (Auto) 0.0 Abs Immat Gran (auto) 0.18 H Absolute Neuts (auto) 6.5 Absolute Nucleated RBC 0.030 H Nucleated RBC % (auto) 0.4 H VBG pH VBG pCO2 VBG pO2 VBG HCO3 VBG O2 Saturation VBG Base Excess Sodium Potassium Chloride Carbon Dioxide Anion Gap BUN Creatinine Estim Creat Clear Calc Estimated GFR Random Glucose Calcium Magnesium Total Bilirubin Direct Bilirubin AST ALT Alkaline Phosphatase Total Creatine Kinase Troponin I High Sens B-Natriuretic Peptide Total Protein Albumin Procalcitonin 0.10 COVID-19 (JEN) Negative COVID-19 Clin Com See Note Influenza Type A (LISA) Influenza Type B (LISA) Influenza A & B Note 12/29/21 12/29/21 12/29/21 16:26 16:26 16:26 WBC RBC Hgb Hct MCV MCH MCHC RDW Plt Count MPV Immature Gran % (Auto) Neut % (Auto) Lymph % (Auto) [place] % (Auto) Eos % (Auto) Baso % (Auto) Lymph # (Auto) [place] # (Auto) Eos # (Auto) Baso # (Auto) Abs Immat Gran (auto) Absolute Neuts (auto) Absolute Nucleated RBC Nucleated RBC % (auto) VBG pH VBG pCO2 VBG pO2 VBG HCO3 VBG O2 Saturation VBG Base Excess Sodium 144 Potassium 3.1 L Chloride 106 Carbon Dioxide 26 Anion Gap 15 BUN 23 H Creatinine 0.78 Estim Creat Clear Calc 89.5 Estimated GFR > 60 Random Glucose 109 Calcium 8.1 L Magnesium 1.6 Total Bilirubin 1.2 H Direct Bilirubin 0.5 AST 51 H ALT 48 H Alkaline Phosphatase 156 H Total Creatine Kinase 36 Troponin I High Sens 25.1 H D B-Natriuretic Peptide 149 H Total Protein 6.6 Albumin 2.9 L Procalcitonin COVID-19 (JEN) COVID-19 Clin Com Influenza Type A (LISA) Negative Influenza Type B (LISA) Negative Influenza A & B Note See Note 12/29/21 12/29/21 12/30/21 16:28 19:42 06:35 WBC RBC Hgb Hct MCV MCH MCHC RDW Plt Count MPV Immature Gran % (Auto) Neut % (Auto) Lymph % (Auto) [place] % (Auto) Eos % (Auto) Baso % (Auto) Lymph # (Auto) [place] # (Auto) Eos # (Auto) Baso # (Auto) Abs Immat Gran (auto) Absolute Neuts (auto) Absolute Nucleated RBC Nucleated RBC % (auto) VBG pH 7.47 H VBG pCO2 39 VBG pO2 65 VBG HCO3 28 H VBG O2 Saturation 91.0 VBG Base Excess 4.8 Sodium 146 H Potassium 3.6 Chloride 103 Carbon Dioxide 31 H Anion Gap 16 BUN 21 H Creatinine 0.78 Estim Creat Clear Calc 89.5 Estimated GFR > 60 Random Glucose 80 Calcium 8.3 L Magnesium 1.7 Total Bilirubin Direct Bilirubin AST ALT Alkaline Phosphatase Total Creatine Kinase Troponin I High Sens 33.9 H B-Natriuretic Peptide Total Protein Albumin Procalcitonin COVID-19 (JEN) COVID-19 Clin Com Influenza Type A (LISA) Influenza Type B (LISA) Influenza A & B Note 12/30/21 06:35 WBC RBC Hgb Hct MCV MCH MCHC RDW Plt Count MPV Immature Gran % (Auto) Neut % (Auto) Lymph % (Auto) [place] % (Auto) Eos % (Auto) Baso % (Auto) Lymph # (Auto) [place] # (Auto) Eos # (Auto) Baso # (Auto) Abs Immat Gran (auto) Absolute Neuts (auto) Absolute Nucleated RBC Nucleated RBC % (auto) VBG pH VBG pCO2 VBG pO2 VBG HCO3 VBG O2 Saturation VBG Base Excess Sodium Potassium Chloride Carbon Dioxide Anion Gap BUN Creatinine Estim Creat Clear Calc Estimated GFR Random Glucose Calcium Magnesium Total Bilirubin Direct Bilirubin AST ALT Alkaline Phosphatase Total Creatine Kinase Troponin I High Sens B-Natriuretic Peptide 107 H Total Protein Albumin Procalcitonin COVID-19 (JEN) COVID-19 Clin Com Influenza Type A (LISA) Influenza Type B (LISA) Influenza A & B Note Imaging Radiologist's impression: Impressions Chest X-Ray 12/29/21 15:45 IMPRESSION: Increased small left-sided pleural effusion with airspace opacity which could represent atelectasis or pneumonia. Venous Duplex 12/29/21 18:01 IMPRESSION: 1. Somewhat limited exam due to body habitus and lower extremity edema. 2. No DVT demonstrated in the bilateral lower extremities. Assessment and Plan (1) CHF (congestive heart failure): Status: Acute Plan Pleasant 66-year-old female who has breast cancer and doing chemotherapy presenting with significant volume overloaded and congestive heart failure. On Lasix IV. Stop the hydrochlorothiazide because of risk of significant electrolyte abnormalities. If blood pressure allows then add nitrates isosorbide 30 mg once a day. Monitor I's and O's closely. Monitor his electrolytes closely. Thank you for allowing me to participate in the care of your patient. Please feel free to contact me if you have any questions. Procedures Date of Service Date of Service: 12/30/21
[2021-12-30 15:50] LABS: Troponin-I High Sensitivity 47.8 ng/L (<3.5-17.0)
[2021-12-30 15:59] VITALS: TEMP 37.4
[2021-12-30 17:28] LABS: Appearance Urine Clear; Color Urine Yellow; Glucose Urine UA Negative (Negative); Leukocyte Esterase Urine Negative (Negative); Nitrite Urine Negative (Negative); UMIC TRIGGER UACC YES; Urine Blood Moderate (2+) (Negative); Urine Ketones Negative (Negative); Urine Protein Trace mg/dL (Neg-Trace)
[2021-12-30 17:33] LABS: Bacteria Urine 1+ (None Seen); RBC Urine >20 /HPF (0-2); WBC Urine 0-5 /HPF (0-5)
[2021-12-30] MEDS: Enoxaparin Sodium 40 MG/0.4 ML SYRINGE SUBCUT (17:42)
[2021-12-30] MEDS: Morphine Sulfate 4 MG/ML CARTRIDGE IVPUSH (18:18)
[2021-12-30 18:55] LABS: Troponin-I High Sensitivity 46.3 ng/L (<3.5-17.0)
--- NOTE | 2021-12-30 19:25 | PC.NURSE ---
Report given to oncoming RUFUS Alanis at this time.
[2021-12-30] MEDS: DULoxetine HCl 60 MG CAPSULE.DR PO (22:21)
[2021-12-30] MEDS: cloNIDine HCL 0.2 MG TABLET PO (22:21)
[2021-12-31] VITALS (8 sets, daily range): BP systolic 97–193; BP diastolic 44–78; PULSE 80–104; RESP 17–20; TEMP 36.6–37.1; O2SAT 93–98
[2021-12-31] MEDS: 0.9 % Sodium Chloride Flush 3 ML SYRINGE IVFLUSH ×4 (00:31→23:11)
[2021-12-31 09:09] LABS: Anion Gap 15 (12-20); Blood Urea Nitrogen 19 mg/dL (9-16); Carbon Dioxide 33 mmol/L (22-29); Chloride 98 mmol/L (96-108); Creatinine Clr Calc Pharmacy 99.7; Estimated Glomerular Filt Rate > 60; Glucose Random 91 mg/dL (60-115); Magnesium 1.4 mg/dL (1.6-2.6); Potassium 3.3 mmol/L (3.3-5.1); Sodium 143 mmol/L (135-145)
[2021-12-31 09:11] LABS: B Type Natriuretic Peptide 52 pg/mL (<100)
[2021-12-31] MEDS: Cholecalciferol (Vitamin D3) 25 MCG TABLET PO (09:57)
[2021-12-31] MEDS: lisinopriL 20 MG TABLET PO (09:57)
[2021-12-31] MEDS: Potassium Chloride ER 20 MEQ TAB.ER.PRT PO (09:57)
[2021-12-31] MEDS: Metoprolol Succinate ER 50 MG TAB.ER.24H PO (09:57)
[2021-12-31] MEDS: Calcium + Vitamin D 250 MG TABLET 500 MG PO (09:57)
[2021-12-31] MEDS: Cyanocobalamin (Vitamin B-12) 1,000 MCG TABLET 1000 MCG PO (09:57)
[2021-12-31] MEDS: Furosemide 40 MG/4 ML VIAL IVPUSH ×2 (09:58→18:18)
[2021-12-31] MEDS: azaTHIOprine 50 MG TABLET PO ×2 (10:00→20:31)
[2021-12-31] MEDS: Morphine Sulfate 4 MG/ML CARTRIDGE IVPUSH ×2 (10:38→20:31)
[2021-12-31] MEDS: Magnesium Sulfate/H2O 2 GM/50 ML PIGGYBACK IV (10:41)
--- NOTE | 2021-12-31 12:04 | P.PNIM_ITS ---
Subjective Subjective Date of Service: 12/31/21 Interval History: No acute issues overnight appearing responding well to diuresis. Breathing improved Review of Systems Denies chest pain Denies shortness of breath Denies nausea vomiting diarrhea Denies fever chills Physical Exam Vital Signs: Vital Signs: Last Vital Signs Temp 98.1 F 12/31/21 03:56 Pulse 90 12/31/21 03:56 Resp 17 12/31/21 03:56 BP 104/64 12/31/21 03:56 Pulse Ox 95 12/31/21 03:56 O2 Del Method 12/31/21 03:56 BMI result Body Mass Index 45.3 Const: Other: No acute issues Resp: Other: Clear but diminished with scant crackles bilateral bases Cardio: Other: No S4; positive S1-S2; no S3 murmurs rubs gallops GI: Other: Soft nontender nondistended normoactive bowel sounds Objective Data Active Medications Acetaminophen (Acetaminophen 325 Mg Tablet) 650 mg PO Q6H PRN PRN Reason: Pain, Mild (Pain Scale 1-3) Last Admin: 12/30/21 13:10 Dose: 650 mg Documented By: STEPHANIE Albuterol/Ipratropium (Albuterol/Iprat 2.5/0.5mg 3 Ml Ampul.Neb) 3 ml INHALE Q4H PRN PRN Reason: Shortness of Breath/Wheezing Azathioprine (Azathioprine 50 Mg Tablet) 50 mg PO BID [facility] Last Admin: 12/31/21 10:00 Dose: 50 mg Documented By: JEFFERY Calcium Carbonate/Cholecalciferol (Calcium + Vitamin D 250 Mg Tablet) 500 mg PO DAILY [facility] Last Admin: 12/31/21 09:57 Dose: 500 mg Documented By: JEFFERY Clonidine HCl (Clonidine Hcl 0.2 Mg Tablet) 0.2 mg PO BEDTIME [facility]; Protocol Last Admin: 12/30/21 22:21 Dose: 0.2 mg Documented By: QI Cyanocobalamin (Cyanocobalamin (Vitamin B-12) 1,000 Mcg Tablet) 1,000 mcg PO DAILY [facility] Last Admin: 12/31/21 09:57 Dose: 1,000 mcg Documented By: JEFFERY Duloxetine HCl (Duloxetine Hcl 60 Mg Capsule.Dr) 60 mg PO BEDTIME [facility] Last Admin: 12/30/21 22:21 Dose: 60 mg Documented By: QI Enoxaparin Sodium (Enoxaparin Sodium 40 Mg/0.4 Ml Syringe) 40 mg SUBCUT Q24H [facility] Last Admin: 12/30/21 17:42 Dose: 40 mg Documented By: JEFFERY Furosemide (Furosemide 40 Mg/4 Ml Vial) 40 mg IVPUSH BID@0900,1800 [facility]; Protocol Last Admin: 12/31/21 09:58 Dose: 40 mg Documented By: JEFFERY Lisinopril (Lisinopril 20 Mg Tablet) 20 mg PO DAILY [facility]; Protocol Last Admin: 12/31/21 09:57 Dose: 20 mg Documented By: JEFFERY Metoprolol Succinate (Metoprolol Succinate Er 50 Mg Tab.Er.24h) 50 mg PO DAILY [facility]; Protocol Last Admin: 12/31/21 09:57 Dose: 50 mg Documented By: JEFFERY Morphine Sulfate (Morphine Sulfate 4 Mg/Ml Cartridge) 4 mg IVPUSH Q4H PRN; Protocol PRN Reason: Pain, Severe (Pain Scale 7-10) Last Admin: 12/31/21 10:38 Dose: 4 mg Documented By: JEFFERY Ondansetron HCl (Ondansetron Hcl 4 Mg/2 Ml Vial) 4 mg IVPUSH Q8H PRN PRN Reason: Nausea and Vomiting Oxycodone HCl (Oxycodone Hcl Immed Release 5 Mg Tablet) 5 mg PO Q6H PRN PRN Reason: Pain, Severe (Pain Scale 7-10) Potassium Chloride (Potassium Chloride Er 20 Meq Tab.Er.Prt) 20 meq PO DAILY [facility] Last Admin: 12/31/21 09:57 Dose: 20 meq Documented By: JEFFERY Sodium Chloride (0.9 % Sodium Chloride Flush 3 Ml Syringe) 3 ml IVFLUSH QSHIFT [facility] Last Admin: 12/31/21 09:58 Dose: 3 ml Documented By: JEFFERY Vitamin D (Cholecalciferol (Vitamin D3) 25 Mcg Tablet) 25 mcg PO DAILY [facility] Last Admin: 12/31/21 09:57 Dose: 25 mcg Documented By: JEFFERY Labs CBC & Chem 7: 12/29/21 16:26 12/31/21 07:33 Labs: Laboratory Results - last 24 hr 10/22/22 10/22/22 10/22/22 15:18 16:38 18:24 Anion Gap Estim Creat Clear Calc Estimated GFR Random Glucose Calcium Magnesium Troponin I High Sens 47.8 H 46.3 H B-Natriuretic Peptide Urine Color Yellow Urine Appearance Clear Urine pH 6.0 Ur Specific [place] 1.010 Urine Protein Trace Urine Glucose (UA) Negative Urine Ketones Negative Urine Blood Moderate (2+) H Urine Nitrite Negative Ur Leukocyte Esterase Negative Urine RBC >20 H Urine WBC 0-5 Ur Squamous Epith Cells 6-10 Urine Bacteria 1+ Hyaline Casts 3-5 12/31/21 12/31/21 07:33 07:33 Anion Gap 15 Estim Creat Clear Calc 99.7 Estimated GFR > 60 Random Glucose 91 Calcium 8.0 L Magnesium 1.4 L* Troponin I High Sens B-Natriuretic Peptide 52 Urine Color Urine Appearance Urine pH Ur Specific [place] Urine Protein Urine Glucose (UA) Urine Ketones Urine Blood Urine Nitrite Ur Leukocyte Esterase Urine RBC Urine WBC Ur Squamous Epith Cells Urine Bacteria Hyaline Casts Assessment and Plan (1) Acute diastolic (congestive) heart failure: Status: Acute (2) Nonsustained supraventricular tachycardia: Status: Acute (3) Dermatomyositis: Status: Acute Plan 66yo F with 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 Admitted for CHF exacerbation 1.Acute/chronic HFpEF exacerbation - continue b.i.d. Lasix -continue outpatient therapies adjusting as indicated 2. History SVT - continue metoprolol succinate -adjust as clinically indicated 3. HTN - acceptable control on current therapies -adjust as indicated 4.Dermatomyositis - continue prednisone /azathiorpine; - stress-dose hydrocortisone if develops hypotension or critical illness VTE ppx: LMWH Requires continued hospitalization for the following reasons: IV diuresis Quality Stroke Does the patient have a stroke diagnosis?: No VTE Prior VTE?: No VTE Risk Level:: Medical - moderate - high VTE Device Contraindication: N/A - Device Ordered VTE Drug Contraindication: N/A - Med Ordered
--- NOTE | 2021-12-31 12:20 | P.PNCA_ITS ---
Subjective Subjective Date of Service: 12/31/21 Interval history: Patient was seen examined at bedside. She is improving. Breathing is getting better. Still volume overloaded. Physical Exam Vital Signs: Last Vital Signs Temp 98.1 F 12/31/21 03:56 Pulse 90 12/31/21 03:56 Resp 17 12/31/21 03:56 BP 104/64 12/31/21 03:56 Pulse Ox 95 12/31/21 03:56 O2 Del Method 12/31/21 03:56 BMI result Body Mass Index 45.3 GENERAL APPEARANCE: in no acute distress, pleasant. NECK: no carotid bruit, + jugular venous distention. SKIN: no suspicious lesions, warm and dry. HEART: no murmurs, regular rate and rhythm. LUNGS: Clear to auscultation. ABDOMEN: soft, nontender. EXTREMITIES: 1-2+ edema. PERIPHERAL PULSES: equal. NEUROLOGIC: No gross deficits, AAO X 3 Objective Labs and Meds Result diagrams: 12/29/21 16:26 12/31/21 07:33 Lab results: Laboratory Results - last 24 hr 12/30/21 12/30/21 12/30/21 15:18 16:38 18:24 Sodium Potassium Chloride Carbon Dioxide Anion Gap BUN Creatinine Estim Creat Clear Calc Estimated GFR Random Glucose Calcium Magnesium Troponin I High Sens 47.8 H 46.3 H B-Natriuretic Peptide Urine Color Yellow Urine Appearance Clear Urine pH 6.0 Ur Specific [place] 1.010 Urine Protein Trace Urine Glucose (UA) Negative Urine Ketones Negative Urine Blood Moderate (2+) H Urine Nitrite Negative Ur Leukocyte Esterase Negative Urine RBC >20 H Urine WBC 0-5 Ur Squamous Epith Cells 6-10 Urine Bacteria 1+ Hyaline Casts 3-5 12/31/21 12/31/21 07:33 07:33 Sodium 143 Potassium 3.3 Chloride 98 Carbon Dioxide 33 H Anion Gap 15 BUN 19 H Creatinine 0.70 Estim Creat Clear Calc 99.7 Estimated GFR > 60 Random Glucose 91 Calcium 8.0 L Magnesium 1.4 L* Troponin I High Sens B-Natriuretic Peptide 52 Urine Color Urine Appearance Urine pH Ur Specific [place] Urine Protein Urine Glucose (UA) Urine Ketones Urine Blood Urine Nitrite Ur Leukocyte Esterase Urine RBC Urine WBC Ur Squamous Epith Cells Urine Bacteria Hyaline Casts Imaging Radiologist's impression: Impressions Chest X-Ray 12/30/21 18:20 IMPRESSION: No interval change Progress Note: A&P Assessment and plan (1) CHF (congestive heart failure): Status: Acute Plan 66-year-old female presenting with acute diastolic heart failure. Still clinically volume overloaded. Continue the diuretics at the same dose. Monitor potassium magnesium and replete accordingly. She has a lot of premature atrial complexes which are due to Hypomagnesium. Etiology of her heart failure episode is currently clear unclear. This can be related to chemotherapy and steroid related volume overload. In any case she is improving with diuretics currently. There is no clear Signs or symptoms of coronary ischemia. Thank you for allowing me to participate in the care of your patient. Please feel free to contact me if you have any questions. Time Spent With Patient Time: Total time spent is greater than 50% in coordination of care (as documented) at patient's floor/unit and/or counseling patient: Progress Note: Quality Stroke Does the patient have a stroke diagnosis?: No Procedures Date of Service Date of Service: 12/31/21
--- NOTE | 2021-12-31 17:02 | PC.NURSE ---
informed of critical magnesium level. Safety and fall precautions maintained. Call koehler within reach.
[2021-12-31] MEDS: Enoxaparin Sodium 40 MG/0.4 ML SYRINGE SUBCUT (18:18)
[2021-12-31] MEDS: DULoxetine HCl 60 MG CAPSULE.DR PO (20:30)
[2021-12-31] MEDS: cloNIDine HCL 0.2 MG TABLET PO (20:30)
[2021-12-31 23:19] LABS: Anion Gap 15 (12-20); Blood Urea Nitrogen 19 mg/dL (9-16); Calcium 7.9 mg/dL (8.4-10.2); Carbon Dioxide 34 mmol/L (22-29); Chloride 95 mmol/L (96-108); Creatinine Clr Calc Pharmacy 91.9; Estimated Glomerular Filt Rate > 60; Glucose Random 121 mg/dL (60-115); Magnesium 1.6 mg/dL (1.6-2.6); Potassium 3.7 mmol/L (3.3-5.1); Sodium 140 mmol/L (135-145)
--- NOTE | 2022-01-01 01:22 | PC.NURSE ---
12/31/21 2225 pt had 3 beat v-tach notified ordered stat labs.pt asymptomatic.
[2022-01-01 03:42] VITALS: BP 93/48; PULSE 85; RESP 18; TEMP 36.4; O2SAT 93
[2022-01-01 06:24] LABS: Hematocrit 24.3 % (37.0-47.0); Hemoglobin 7.6 g/dl (12.0-16.0); Mean Corpuscular HGB Conc 31.3 g/dl (31.0-35.0); Mean Corpuscular Hemoglobin 28.7 pg (27.0-33.0); Mean Corpuscular Volume 91.7 fL (80.0-98.0); Mean Platelet Volume 10.3 fL (9.4-12.3); Platelet Count 111 X10*3/uL (160-400); Red Blood Count 2.65 X10*6/uL (4.20-5.50); Red Cell Distribution Width 22.2 % (11.0-16.0)
[2022-01-01 06:33] LABS: WBC ABN SCTR FOR CBC 1
[2022-01-01 06:42] LABS: Alanine Aminotransferase 24 U/L (0-31); Albumin Level 2.9 g/dL (3.5-5.0); Alkaline Phosphatase 99 U/L (39-117); Anion Gap 14 (12-20); Aspartate Amino Transferase 34 U/L (5-31); Bilirubin Total 1.5 mg/dL (0.0-1.0); Blood Urea Nitrogen 21 mg/dL (9-16); Carbon Dioxide 35 mmol/L (22-29); Chloride 96 mmol/L (96-108); Creatinine Clr Calc Pharmacy 91.9; Estimated Glomerular Filt Rate > 60; Glucose Fasting 102 mg/dL (60-99); Potassium 3.6 mmol/L (3.3-5.1); Sodium 141 mmol/L (135-145); Total Protein 5.7 g/dL (6.5-8.0)
[2022-01-01 06:59] LABS: Band Neutrophils Percent 7 % (3-5); Basophils Percent Manual 1 % (0-2); Lymphocytes Percent Manual 6 % (20-40); Metamyelocytes Percent 1 %; Monocytes Percent Manual 6 % (2-11); Neutrophils Percent Manual 79 % (45-73)
--- NOTE | 2022-01-01 07:00 | CA_ITS ---
Transthoracic Echocardiogram LIMITED Patient (Last, First, Middle): Kate Almaguer, Gender: Female Date of : 1955 Age: 66 Procedure Date: 01/01/2022 Procedure Type: Transthoracic Echocardiogram [place] [facility] [place]: 160.02 cm Weight: 115.67 kg BSA: 2.14 m2 Heart Rate: bpm BP: 110 / 53 mmHg Weigh Tank Operator: Referring MD: Josias Hameed MD Asparagus Cutter: Josias Hameed MD Symptoms: CHF, perform strain Study Quality: Adequate ECG Rhythm: Sinus w EXTRA BEATS Conclusions: - Normal LV systolic function and diastolic filling pattern with normal strain Findings Left Ventricle Normal left ventricular size, thickness, and systolic function. The visually estimated ejection fraction is between 60-65%. Spectral Doppler is indicative of a normal filling pattern. Tricuspid Valve Normal right atrial pressure. Venous The inferior vena cava is normal in size and collapses greater than 50% with inspiration. Measurements 2D Linear Measurements IVSd: 1.05 0.6-0.9/0.6-1.0 cm LVIDd: 3.79 3.9-5.3/4.2-5.9 cm LVIDd Index: 1.77 2.4-3.2/2.2-3.1 cm/m2 LVIDs: 2.45 2.0-3.6 cm LVPWd: 1.05 0.7-1.1 cm LV Mass: 155.89 67-162/88-224 g LV Mass Index: 72.85 43-95/49-115 g/m2 2D Systolic Function EF 4C: 62.00 >55% EF 2C: 66.00 >55% EF BiP: 64.30 >55% Mitral Valve MV Pk E: 1.25 MV PK A: 0.84 MV Decel Time: 194.00 E/A: 1.50 E'Lateral: 7.40 E'Medial: 8.49 E/E' Med: 14.70 E/E' Lat: 16.90 PHT: 57.00 MVA PHT: 3.86 Decel [place]: 6.42 Diastolic Function MV Pk E: 1.25 MV Pk A: 0.84 E/A: 1.50 E'Medial: 8.49 E/E' Med: 14.70 E' Laterial: 7.40 E/E' Lat: 16.90 Updated in Other Vendor System with Status of Final Josias Hameed MD electronically signed on 01/01/2022 4:36:40 PM with status of Final
[2022-01-01 07:01] LABS: RBC Morphology NOTED
[2022-01-01 07:02] LABS: Hypochromasia 1+ (5-14) /OIF; Microcytosis 1+ (5-14) /OIF; Ovalocytes 1+ (5-14) /OIF; Platelet Estimate DECREASED (NORMAL); Platelet Morphology Comment NORM; Polychromasia 1+ (0-2) /OIF; Tear Drop Cells 1+ (0-2) /OIF
[2022-01-01 07:10] LABS: Lymphocytes Absolute Manual 0.2 X10*3/uL (1.2-4.9); Monocytes Absolute Manual 0.2 X10*3/uL (0.1-1.2); Neutrophils Absolute Manual 3.5 X10*3/uL (2.0-8.3); White Blood Count 4.1 X10*3/uL (4.8-10.8)
[2022-01-01 08:00] VITALS: BP 110/53; PULSE 96; RESP 20; TEMP 36.7; O2SAT 97
[2022-01-01 08:45] LABS: Magnesium 1.6 mg/dL (1.6-2.6)
[2022-01-01] MEDS: azaTHIOprine 50 MG TABLET PO ×2 (09:38→20:50)
[2022-01-01] MEDS: Metoprolol Succinate ER 50 MG TAB.ER.24H PO (09:38)
[2022-01-01] MEDS: Potassium Chloride ER 20 MEQ TAB.ER.PRT PO ×2 (09:38→20:49)
[2022-01-01] MEDS: Calcium + Vitamin D 250 MG TABLET 500 MG PO (09:38)
[2022-01-01] MEDS: 0.9 % Sodium Chloride Flush 3 ML SYRINGE IVFLUSH (09:38)
[2022-01-01] MEDS: Cholecalciferol (Vitamin D3) 25 MCG TABLET PO (09:38)
[2022-01-01] MEDS: lisinopriL 20 MG TABLET PO (09:38)
[2022-01-01] MEDS: Cyanocobalamin (Vitamin B-12) 1,000 MCG TABLET 1000 MCG PO (09:38)
[2022-01-01] MEDS: Furosemide 40 MG/4 ML VIAL IVPUSH (09:39)
[2022-01-01] MEDS: Morphine Sulfate 4 MG/ML CARTRIDGE IVPUSH ×2 (09:53→21:57)
--- NOTE | 2022-01-01 11:08 | P.CDIC_ITS ---
CDI Concurrent Query Documentation Clarification: PHYSICIAN'S DOCUMENTATION REQUEST Date of Query: 01/01/22 1109 Patient Name: Kate Almaguer Admit Date: 12/29/21 Dear Doctor, A review of the medical record indicates additional documentation may be needed. Please review below and update the documentation accordingly. Clinical Indicators: Is there a diagnosis that correlates with the findings below: Risk Factors/Clinical Indicators/Treatments BMI: 45.3 HEIGHT: 5ft 3in WEIGHT: 116kg Per provider note on 12/31: 17 kg weight gain she weighed 99 kg; currently, she weighs 116 kg If possible, please provide an associated diagnosis related to the abnormal BMI, such as: l For a BMI >= 40: * Severe or Morbid Obesity * Overweight * Obesity * Due to excess calories * Drug induced * Due to other cause * With alveolar hypoventilation * Without alveolar hypoventilation Or: * BMI is not significant * Other (please specify) * Unable to determine Use of terms such as suspected, likely, concern for, or probable (associated with a specific diagnosis that is being evaluated, monitored, or treated as if it exists) are acceptable and can be coded in the inpatient setting, when documented at the time of discharge. Thank you, Eva Chinchilla MS, RN, CCRN Extension: [phone] Please use your independent medical judgment in providing your response. THIS QUERY IS PART OF THE PERMANENT MEDICAL RECORD Provider Response: Other Other Diagnosis: Morbidly obese without alveolar hypoventilation
--- NOTE | 2022-01-01 11:08 | MHC.CDI.CONC ---
CDI Concurrent Query Documentation Clarification: PHYSICIAN'S DOCUMENTATION REQUEST Date of Query: 01/01/22 1108 Patient Name: Kate Almaguer Admit Date: 12/29/21 Dear Doctor, A review of the medical record indicates additional documentation may be needed. Please review below and update the documentation accordingly. Clinical Indicators: Is there a diagnosis that correlates with the findings below: Risk Factors/Clinical Indicators/Treatments BMI: 45.3 HEIGHT: 5ft 3in WEIGHT: 116kg Per provider note on 12/31: 17 kg weight gain she weighed 99 kg; currently, she weighs 116 kg If possible, please provide an associated diagnosis related to the abnormal BMI, such as: For a BMI >= 40: Severe or Morbid Obesity Overweight Obesity Due to excess calories Drug induced Due to other cause With alveolar hypoventilation Without alveolar hypoventilation Or: BMI is not significant Other (please specify) Unable to determine Use of terms such as suspected, likely, concern for, or probable (associated with a specific diagnosis that is being evaluated, monitored, or treated as if it exists) are acceptable and can be coded in the inpatient setting, when documented at the time of discharge. Thank you, Eva Chinchilla MS, RN, CCRN Extension: [phone] Please use your independent medical judgment in providing your response. THIS QUERY IS PART OF THE PERMANENT MEDICAL RECORD Provider Response: Other Other Diagnosis: Morbidly obese without alveolar hypoventilation
--- NOTE | 2022-01-01 11:25 | PM.PNCARD ---
Subjective Subjective Date of Service: 01/01/22 Principal diagnosis: CHF Interval history: Patient has diuresed about 12 L since admission. Her shortness of breath is significantly improved. Leg edema is significantly improved. Monitor shows 3-4 beat runs of nonsustained VT. She denies any palpitation lightheadedness. Blood pressure this morning was noted to be on the lower side. Review of Systems Constitutional: Reports no additional constitutional complaints Cardiovascular: Reports no additional cardiovascular complaints Respiratory: Reports no additional respiratory complaints Gastrointestinal: Reports no additional gastrointestinal complaints Musculoskeletal: Reports no additional musculoskeletal complaints Reports system reviewed and no additional complaints, except as documented Psychiatric: Reports no additional psychiatric complaints Endocrine: Reports no additional endocrine complaints Physical Exam Vital Signs: Last Vital Signs Temp 98.1 F 01/01/22 08:00 Pulse 96 01/01/22 08:00 Resp 20 01/01/22 08:00 BP 110/53 L 01/01/22 08:00 Pulse Ox 97 01/01/22 08:00 O2 Del Method 01/01/22 08:00 BMI result Body Mass Index 45.3 Const General: cooperative, comfortable, no acute distress, alert and awake Nutritional Appearance: obese Orientation/consciousness: patient oriented x3 Neck Neck: Yes trachea midline, Yes supple and Yes no JVD Resp Effort & Inspection: normal respiratory effort Auscultation: clear to auscultation bilaterally Cardio Jugular venous distension: no JVD Rate: regular rate Rhythm: regular rhythm Heart sounds: S1 normal heart sound present, S2 normal heart sound present, no click, no gallops and no murmurs GI Auscultation: normal bowel sounds Skin General skin exam: no rashes or lesions noted Neuro General: patient oriented x3 and no focal motor deficits Extrem General: No no clubbing, cyanosis or edema Objective Labs and Meds Result diagrams: 01/01/22 06:03 01/01/22 06:03 Lab results: Laboratory Results - last 24 hr 12/31/21 01/01/22 01/01/22 22:45 06:03 06:03 WBC 4.1 L RBC 2.65 L Hgb 7.6 L Hct 24.3 L MCV 91.7 MCH 28.7 MCHC 31.3 RDW 22.2 H Plt Count 111 L D MPV 10.3 Immature Gran % (Auto) Cancelled Neut % (Auto) Cancelled Lymph % (Auto) Cancelled Barren % (Auto) Cancelled Eos % (Auto) Cancelled Baso % (Auto) Cancelled Lymph # (Auto) Cancelled Barren # (Auto) Cancelled Eos # (Auto) Cancelled Baso # (Auto) Cancelled Abs Immat Gran (auto) Cancelled Absolute Neuts (auto) Cancelled Absolute Nucleated RBC 0.000 Nucleated RBC % (auto) 0.0 Neutrophils % (Manual) 79 H Band Neutrophils % 7 H Lymphocytes % (Manual) 6 L Monocytes % (Manual) 6 Basophils % (Manual) 1 Metamyelocytes % 1 Abs Neuts (Manual) 3.5 Lymphocytes # (Manual) 0.2 L Monocytes # (Manual) 0.2 Platelet Estimate DECREASED Plt Morphology Comment NORM RBC Morphology NOTED Polychromasia 1+ (0-2) Hypochromasia 1+ (5-14) Microcytosis 1+ (5-14) Tear Drop Cells 1+ (0-2) Ovalocytes 1+ (5-14) Sodium 140 141 Potassium 3.7 3.6 Chloride 95 L 96 Carbon Dioxide 34 H 35 H Anion Gap 15 14 BUN 19 H 21 H Creatinine 0.76 0.76 Estim Creat Clear Calc 91.9 91.9 Estimated GFR > 60 > 60 Random Glucose 121 H Fasting Glucose 102 H Calcium 7.9 L 8.0 L Magnesium 1.6 1.6 Total Bilirubin 1.5 H AST 34 H ALT 24 Alkaline Phosphatase 99 D Total Protein 5.7 L Albumin 2.9 L Progress Note: A&P Assessment and plan (1) CHF (congestive heart failure): Status: Acute Assessment and Plan: New onset congestive heart failure under middle-aged woman with current therapy for breast cancer with Herceptin. Concern for systolic heart failure is high. Repeat limited echocardiogram. Her recent echocardiogram November showed normal LV systolic function. She has diuresed and probably been over diuresed at this point time with slightly low blood pressure. Further treatment based on the findings of echocardiogram. However will switch her lisinopril to valsartan and if she has significant LV systolic dysfunction with eventually switch her to Entresto therapy. Continue metoprolol therapy. Having runs of nonsustained VT. Replace magnesium as potassium with magnesium goal above 2 and potassium goal about 4. Reduce Lasix to 40 mg daily. Most likely will switch her to p.o. Lasix therapy starting tomorrow. Out of bed to chair. Incentive spirometry. Will continue to follow with you. Time Spent With Patient Time: Total time spent is greater than 50% in coordination of care (as documented) at patient's floor/unit and/or counseling patient: Progress Note: Quality Stroke Does the patient have a stroke diagnosis?: No Procedures Date of Service Date of Service: 01/01/22
[2022-01-01] MEDS: Potassium Chloride/H20 10 MEQ/100 ML PIGGYBACK 100 MEQ IV ×4 (11:28→15:53)
[2022-01-01] MEDS: Valsartan 40 MG TABLET 20 MG PO (11:28)
--- NOTE | 2022-01-01 11:34 | MHC.CM.PN ---
Per ROUNDS discussion, Patient is not yet medically cleared for dc (IV Lasix, needs ECHO); home is the goal and CM will continue to follow.
[2022-01-01 11:51] VITALS: BP 93/55; PULSE 93; RESP 16; TEMP 36.8; O2SAT 97
[2022-01-01] MEDS: Magnesium Sulfate/H2O 2 GM/50 ML PIGGYBACK IV (12:35)
--- NOTE | 2022-01-01 13:22 | P.PNIM_ITS ---
Subjective Subjective Date of Service: 01/01/22 Interval History: Feels much better this a.m.. Able to breathe freely lying completely supine in bed Review of Systems Denies chest pain Denies shortness of breath Denies nausea vomiting diarrhea Denies fever chills Physical Exam Vital Signs: Vital Signs: Last Vital Signs Temp 98.2 F 01/01/22 11:51 Pulse 93 01/01/22 11:51 Resp 16 01/01/22 11:51 BP 93/55 L 01/01/22 11:51 Pulse Ox 97 01/01/22 11:51 O2 Del Method 01/01/22 11:51 BMI result Body Mass Index 45.3 Const: Other: No acute issues Resp: Other: Clear but diminished with scant crackles bilateral bases Cardio: Other: No S4; positive S1-S2; no S3 murmurs rubs gallops GI: Other: Soft nontender nondistended normoactive bowel sounds Objective Data Active Medications Acetaminophen (Acetaminophen 325 Mg Tablet) 650 mg PO Q6H PRN PRN Reason: Pain, Mild (Pain Scale 1-3) Last Admin: 12/30/21 13:10 Dose: 650 mg Documented By: STEPHANIE Albuterol/Ipratropium (Albuterol/Iprat 2.5/0.5mg 3 Ml Ampul.Neb) 3 ml INHALE Q4H PRN PRN Reason: Shortness of Breath/Wheezing Azathioprine (Azathioprine 50 Mg Tablet) 50 mg PO BID [facility] Last Admin: 01/01/22 09:38 Dose: 50 mg Documented By: RAÚL Calcium Carbonate/Cholecalciferol (Calcium + Vitamin D 250 Mg Tablet) 500 mg PO DAILY [facility] Last Admin: 01/01/22 09:38 Dose: 500 mg Documented By: RAÚL Clonidine HCl (Clonidine Hcl 0.2 Mg Tablet) 0.2 mg PO BEDTIME [facility]; Protocol Last Admin: 12/31/21 20:30 Dose: 0.2 mg Documented By: MARIA INES Cyanocobalamin (Cyanocobalamin (Vitamin B-12) 1,000 Mcg Tablet) 1,000 mcg PO DAILY [facility] Last Admin: 01/01/22 09:38 Dose: 1,000 mcg Documented By: RAÚL Duloxetine HCl (Duloxetine Hcl 60 Mg Capsule.Dr) 60 mg PO BEDTIME [facility] Last Admin: 12/31/21 20:30 Dose: 60 mg Documented By: LEELEEJ Enoxaparin Sodium (Enoxaparin Sodium 40 Mg/0.4 Ml Syringe) 40 mg SUBCUT Q24H [facility] Last Admin: 12/31/21 18:18 Dose: 40 mg Documented By: JEFFERY Furosemide (Furosemide 40 Mg/4 Ml Vial) 40 mg IVPUSH DAILY [facility]; Protocol Potassium Chloride (Potassium Chloride/H20) 10 meq in 100 mls @ 100 mls/hr IV Q1H [facility] Stop: 01/01/22 14:44 Last Admin: 01/01/22 12:35 Dose: 100 mls/hr Documented By: RAÚL Metoprolol Succinate (Metoprolol Succinate Er 50 Mg Tab.Er.24h) 50 mg PO DAILY [facility]; Protocol Last Admin: 01/01/22 09:38 Dose: 50 mg Documented By: RAÚL Morphine Sulfate (Morphine Sulfate 4 Mg/Ml Cartridge) 4 mg IVPUSH Q4H PRN; Protocol PRN Reason: Pain, Severe (Pain Scale 7-10) Last Admin: 01/01/22 09:53 Dose: 4 mg Documented By: RAÚL Ondansetron HCl (Ondansetron Hcl 4 Mg/2 Ml Vial) 4 mg IVPUSH Q8H PRN PRN Reason: Nausea and Vomiting Oxycodone HCl (Oxycodone Hcl Immed Release 5 Mg Tablet) 5 mg PO Q6H PRN PRN Reason: Pain, Severe (Pain Scale 7-10) Potassium Chloride (Potassium Chloride Er 20 Meq Tab.Er.Prt) 20 meq PO BID [facility] Last Admin: 01/01/22 09:38 Dose: 20 meq Documented By: RAÚL Sodium Chloride (0.9 % Sodium Chloride Flush 3 Ml Syringe) 3 ml IVFLUSH QSHIFT [facility] Last Admin: 01/01/22 09:38 Dose: 3 ml Documented By: RAÚL Valsartan (Valsartan 40 Mg Tablet) 20 mg PO BID [facility]; Protocol Last Admin: 01/01/22 11:28 Dose: 20 mg Documented By: RAÚL Vitamin D (Cholecalciferol (Vitamin D3) 25 Mcg Tablet) 25 mcg PO DAILY [facility] Last Admin: 01/01/22 09:38 Dose: 25 mcg Documented By: RAÚL Labs CBC & Chem 7: 01/01/22 06:03 01/01/22 06:03 Labs: Laboratory Results - last 24 hr 12/31/21 01/01/22 01/01/22 22:45 06:03 06:03 MCV 91.7 MCH 28.7 MCHC 31.3 RDW 22.2 H Plt Count 111 L D MPV 10.3 Immature Gran % (Auto) Cancelled Neut % (Auto) Cancelled Lymph % (Auto) Cancelled [place] % (Auto) Cancelled Eos % (Auto) Cancelled Baso % (Auto) Cancelled Lymph # (Auto) Cancelled [place] # (Auto) Cancelled Eos # (Auto) Cancelled Baso # (Auto) Cancelled Abs Immat Gran (auto) Cancelled Absolute Neuts (auto) Cancelled Absolute Nucleated RBC 0.000 Nucleated RBC % (auto) 0.0 Neutrophils % (Manual) 79 H Band Neutrophils % 7 H Lymphocytes % (Manual) 6 L Monocytes % (Manual) 6 Basophils % (Manual) 1 Metamyelocytes % 1 Abs Neuts (Manual) 3.5 Lymphocytes # (Manual) 0.2 L Monocytes # (Manual) 0.2 Platelet Estimate DECREASED Plt Morphology Comment NORM RBC Morphology NOTED Polychromasia 1+ (0-2) Hypochromasia 1+ (5-14) Microcytosis 1+ (5-14) Tear Drop Cells 1+ (0-2) Ovalocytes 1+ (5-14) Anion Gap 15 14 Estim Creat Clear Calc 91.9 91.9 Estimated GFR > 60 > 60 Random Glucose 121 H Fasting Glucose 102 H Calcium 7.9 L 8.0 L Magnesium 1.6 1.6 Total Bilirubin 1.5 H AST 34 H ALT 24 Alkaline Phosphatase 99 D Total Protein 5.7 L Albumin 2.9 L Microbiology Microbiology Results: Microbiology 12/30/21 16:40 Blood Culture - Preliminary Blood - Venous No growth after 24 hours. 12/30/21 16:40 Blood Culture - Preliminary Blood - Venous No growth after 24 hours. 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 Admitted for CHF exacerbation 1.Acute/chronic HFpEF exacerbation - continue IV Lasix times 24 hours switch to oral in a.m. -continue outpatient therapies adjusting as indicated -add valsartan 20 mg b.i.d. 2. History SVT - continue metoprolol succinate -replete divalents -adjust as clinically indicated 3. HTN - acceptable control on current therapies -adjust as indicated 4.Dermatomyositis - continue prednisone /azathiorpine; - stress-dose hydrocortisone if develops hypotension or critical illness VTE ppx: LMWH Requires continued hospitalization for the following reasons: IV diuresis Quality Stroke Does the patient have a stroke diagnosis?: No VTE Prior VTE?: No VTE Risk Level:: Medical - moderate - high VTE Device Contraindication: N/A - Device Ordered VTE Drug Contraindication: N/A - Med Ordered
[2022-01-01 15:48] VITALS: BP 101/56; PULSE 77; RESP 16; TEMP 37.1; O2SAT 93
[2022-01-01 19:50] VITALS: BP 88/54; PULSE 84; RESP 16; TEMP 37.4; O2SAT 97
[2022-01-01] MEDS: Enoxaparin Sodium 40 MG/0.4 ML SYRINGE SUBCUT (20:50)
[2022-01-01] MEDS: DULoxetine HCl 60 MG CAPSULE.DR PO (20:50)
[2022-01-01] MEDS: Albumin Human 25 % 100 ML IV (20:50)
[2022-01-01] MEDS: cloNIDine HCL 0.2 MG TABLET PO (21:56)
[2022-01-01] MEDS: Acetaminophen 325 MG TABLET 650 MG PO (22:02)
[2022-01-01 23:45] VITALS: BP 93/46; PULSE 83; RESP 16; TEMP 36.6; O2SAT 96
[2022-01-02] VITALS (13 sets, daily range): BP systolic 81–121; BP diastolic 40–62; PULSE 65–95; RESP 15–20; TEMP 36.1–38.2; O2SAT 95–99
[2022-01-02] MEDS: 0.9 % Sodium Chloride Flush 3 ML SYRINGE IVFLUSH ×2 (00:44→09:02)
[2022-01-02] MEDS: Albumin Human 25 % 100 ML IV (03:37)
[2022-01-02 07:01] LABS: Alanine Aminotransferase 20 U/L (0-31); Albumin Level 3.5 g/dL (3.5-5.0); Alkaline Phosphatase 76 U/L (39-117); Anion Gap 14 (12-20); Aspartate Amino Transferase 34 U/L (5-31); Bilirubin Total 1.3 mg/dL (0.0-1.0); Blood Urea Nitrogen 22 mg/dL (9-16); Calcium 7.9 mg/dL (8.4-10.2); Carbon Dioxide 32 mmol/L (22-29); Chloride 97 mmol/L (96-108); Creatinine Clr Calc Pharmacy 68.4; Estimated Glomerular Filt Rate 55; Glucose Fasting 96 mg/dL (60-99); Magnesium 1.9 mg/dL (1.6-2.6); Sodium 139 mmol/L (135-145); Total Protein 5.8 g/dL (6.5-8.0)
[2022-01-02 07:18] LABS: Mean Corpuscular Hemoglobin 28.9 pg (27.0-33.0); Mean Corpuscular Volume 90.2 fL (80.0-98.0); Mean Platelet Volume 10.1 fL (9.4-12.3); PLT CLUMP 1; Red Blood Count 2.25 X10*6/uL (4.20-5.50); Red Cell Distribution Width 22.1 % (11.0-16.0)
[2022-01-02 07:19] LABS: WBC ABN SCTR FOR CBC 1
[2022-01-02 07:29] LABS: White Blood Count 1.3 X10*3/uL (4.8-10.8)
[2022-01-02 07:32] LABS: Hematocrit 20.3 % (37.0-47.0); Hemoglobin 6.5 g/dl (12.0-16.0)
[2022-01-02 07:52] LABS: Band Neutrophils Percent 14 % (3-5); Lymphocytes Absolute Manual 0.5 X10*3/uL (1.2-4.9); Lymphocytes Percent Manual 38 % (20-40); Metamyelocytes Percent 2 %; Monocytes Percent Manual 2 % (2-11); Neutrophils Absolute Manual 0.8 X10*3/uL (2.0-8.3); Neutrophils Percent Manual 44 % (45-73)
[2022-01-02 07:53] LABS: RBC Morphology NOTED; Tear Drop Cells 2+ (3-5) /OIF
[2022-01-02 07:54] LABS: Hypochromasia 1+ (5-14) /OIF
[2022-01-02 07:55] LABS: Ovalocytes 1+ (5-14) /OIF
[2022-01-02 07:56] LABS: Platelet Estimate DECREASED (NORMAL); Platelet Morphology Comment NORMAL
[2022-01-02 08:00] LABS: Platelet Count 84 X10*3/uL (160-400)
[2022-01-02] MEDS: azaTHIOprine 50 MG TABLET PO ×2 (09:01→22:03)
[2022-01-02] MEDS: Cyanocobalamin (Vitamin B-12) 1,000 MCG TABLET 1000 MCG PO (09:02)
[2022-01-02] MEDS: Calcium + Vitamin D 250 MG TABLET 500 MG PO (09:02)
[2022-01-02] MEDS: Cholecalciferol (Vitamin D3) 25 MCG TABLET PO (09:02)
[2022-01-02] MEDS: Potassium Chloride ER 20 MEQ TAB.ER.PRT PO ×2 (09:03→22:03)
--- NOTE | 2022-01-02 10:27 | P.PNCA_ITS ---
Subjective Subjective Date of Service: 01/02/22 Principal diagnosis: CHF Interval history: Patient developed low blood pressure with systolic blood pressure in the 80s. Also having multiple runs of atrial arrhythmias with some aberrant conduction. She has significant drop in her hemoglobin. She denies any significant chest pain or shortness of breath. Has overall still diuresed significantly with overall negative balance of 12.2 L. she denies any palpitations. Her echocardiogram yesterday shows normal LV systolic and diastolic filling pattern with normal strain. Overall cause for heart failure still unclear could be high output congestive heart failure due to anemia. Review of Systems Constitutional: Reports weakness Eyes: Reports no additional eye complaints Cardiovascular: Reports no additional cardiovascular complaints Respiratory: Reports no additional respiratory complaints Gastrointestinal: Reports no additional gastrointestinal complaints Genitourinary: Reports no additional female genitourinary complaints Musculoskeletal: Reports no additional musculoskeletal complaints Skin/Breast: Reports system reviewed and no additional complaints, except as docu Reports weakness Physical Exam Vital Signs: Last Vital Signs Temp 98.5 F 01/02/22 07:51 Pulse 87 01/02/22 07:51 Resp 20 01/02/22 07:51 BP 81/62 L 01/02/22 07:51 Pulse Ox 95 01/02/22 07:51 O2 Del Method 01/02/22 07:51 BMI result Body Mass Index 45.3 Const General: cooperative, comfortable, no acute distress, alert and awake Nutritional Appearance: obese Orientation/consciousness: patient oriented x3 Neck Neck: Yes trachea midline, Yes supple and Yes no JVD Resp Effort & Inspection: normal respiratory effort Auscultation: clear to auscultation bilaterally Cardio Jugular venous distension: no JVD Rate: regular rate Rhythm: regular rhythm Heart sounds: S1 normal heart sound present, S2 normal heart sound present, no click, no gallops and no murmurs GI Auscultation: normal bowel sounds Skin General skin exam: no rashes or lesions noted Neuro General: patient oriented x3 and no focal motor deficits Extrem General: No no clubbing, cyanosis or edema Objective Labs and Meds Result diagrams: 01/02/22 06:04 01/02/22 06:04 Lab results: Laboratory Results - last 24 hr 01/02/22 01/02/22 01/02/22 06:04 06:04 07:55 WBC 1.3 L RBC 2.25 L Hgb 6.5 L* Hct 20.3 L* MCV 90.2 MCH 28.9 MCHC 32.0 RDW 22.1 H Plt Count 84 L MPV 10.1 Immature Gran % (Auto) Cancelled Neut % (Auto) Cancelled Lymph % (Auto) Cancelled [place] % (Auto) Cancelled Eos % (Auto) Cancelled Baso % (Auto) Cancelled Lymph # (Auto) Cancelled [place] # (Auto) Cancelled Eos # (Auto) Cancelled Baso # (Auto) Cancelled Abs Immat Gran (auto) Cancelled Absolute Neuts (auto) Cancelled Absolute Nucleated RBC 0.000 Nucleated RBC % (auto) 0.0 Neutrophils % (Manual) 44 L Band Neutrophils % 14 H Lymphocytes % (Manual) 38 Monocytes % (Manual) 2 Metamyelocytes % 2 Abs Neuts (Manual) 0.8 L Lymphocytes # (Manual) 0.5 L Platelet Estimate DECREASED Plt Morphology Comment NORMAL RBC Morphology NOTED Hypochromasia 1+ (5-14) Tear Drop Cells 2+ (3-5) Ovalocytes 1+ (5-14) Sodium 139 Potassium 4.0 Chloride 97 Carbon Dioxide 32 H Anion Gap 14 BUN 22 H Creatinine 1.02 Estim Creat Clear Calc 68.4 Estimated GFR 55 Fasting Glucose 96 Calcium 7.9 L Magnesium 1.9 Total Bilirubin 1.3 H AST 34 H ALT 20 Alkaline Phosphatase 76 D Total Protein 5.8 L Albumin 3.5 D Blood Type A Positive Antibody Screen NEGATIVE Crossmatch See Detail Progress Note: A&P Assessment and plan (1) Low blood pressure: Status: Acute Assessment and Plan: Patient is low blood pressures multifactorial and probably appears to be due to probably over-diuresis also drop in her hematocrit which could be due to GI blood loss. This needs to be investigated. Agree with volume repletion with blood transfusion maybe 2 units of packed RBC and following her hematocrit closely. Hold off on diuretic regimen at this point time. Hold other antihypertensive regimen as well. (2) CHF (congestive heart failure): Status: Acute Assessment and Plan: Congestive heart failure with completely normal LV systolic function and strain. Unlikely related to chemotherapy related systolic dysfunction. Unclear as to the etiology of heart failure. Possible a predominantly right heart failure syndrome related to obesity hypoventilation/obstructive sleep apnea. Will need workup for the same. Clinically now probably volume depleted. Hold off on diuretic regimen. Continue to monitor for signs and symptoms of heart failure. Other possible etiology of heart failure could be due to high cardiac output related to significant anemia. Correct anemia as above. (3) Atrial arrhythmia: Status: Acute Assessment and Plan: Atrial arrhythmias with short burst of suggestive atrial fibrillation. This could be related to a lot of medical issues going on at this point time. Cannot use metoprolol effectively due to low blood pressure. Did load her with 0.25 mg IV push q.6 hours x3 doses. Was blood pressure is better can resume her metoprolol therapy. Will continue to monitor. Continue to correct electrolytes and maintain magnesium above 2 and potassium above 4. Will continue to follow with you Time Spent With Patient Time: Total time spent is greater than 50% in coordination of care (as documented) at patient's floor/unit and/or counseling patient: Progress Note: Quality Stroke Does the patient have a stroke diagnosis?: No Procedures Date of Service Date of Service: 01/02/22
--- NOTE | 2022-01-02 10:36 | PM.PNCARD ---
Subjective Subjective Date of Service: 01/03/22 Principal diagnosis: CHF Interval history: Blood pressure still on the softer side. Has transfusion with some improvement hematocrit. She received her blood pressure medications last night. None were given this morning. She has noticed some increased swelling in the right leg. Denies orthopnea, PND, shortness of breath. Review of Systems Review of Systems Yes all other systems are reviewed and are negative Physical Exam Vital Signs: Last Vital Signs Temp 98.5 F 01/02/22 07:51 Pulse 87 01/02/22 07:51 Resp 20 01/02/22 07:51 BP 81/62 L 01/02/22 07:51 Pulse Ox 95 01/02/22 07:51 O2 Del Method 01/02/22 07:51 BMI result Body Mass Index 45.3 Const General: cooperative, comfortable, no acute distress, alert and awake Nutritional Appearance: obese Orientation/consciousness: patient oriented x3 Neck Neck: Yes trachea midline, Yes supple and Yes no JVD Resp Effort & Inspection: normal respiratory effort Auscultation: clear to auscultation bilaterally Cardio Jugular venous distension: no JVD Rate: regular rate Rhythm: regular rhythm Heart sounds: S1 normal heart sound present, S2 normal heart sound present, no click, no gallops and no murmurs GI Auscultation: normal bowel sounds Skin General skin exam: no rashes or lesions noted Neuro General: patient oriented x3 and no focal motor deficits Extrem General: No no clubbing, cyanosis or edema Objective Labs and Meds Result diagrams: 01/03/22 06:08 01/03/22 06:08 Lab results: Laboratory Results - last 24 hr 01/02/22 01/02/22 01/02/22 06:04 06:04 07:55 WBC 1.3 L RBC 2.25 L Hgb 6.5 L* Hct 20.3 L* MCV 90.2 MCH 28.9 MCHC 32.0 RDW 22.1 H Plt Count 84 L MPV 10.1 Immature Gran % (Auto) Cancelled Neut % (Auto) Cancelled Lymph % (Auto) Cancelled [place] % (Auto) Cancelled Eos % (Auto) Cancelled Baso % (Auto) Cancelled Lymph # (Auto) Cancelled [place] # (Auto) Cancelled Eos # (Auto) Cancelled Baso # (Auto) Cancelled Abs Immat Gran (auto) Cancelled Absolute Neuts (auto) Cancelled Absolute Nucleated RBC 0.000 Nucleated RBC % (auto) 0.0 Neutrophils % (Manual) 44 L Band Neutrophils % 14 H Lymphocytes % (Manual) 38 Monocytes % (Manual) 2 Metamyelocytes % 2 Abs Neuts (Manual) 0.8 L Lymphocytes # (Manual) 0.5 L Platelet Estimate DECREASED Plt Morphology Comment NORMAL RBC Morphology NOTED Hypochromasia 1+ (5-14) Tear Drop Cells 2+ (3-5) Ovalocytes 1+ (5-14) Sodium 139 Potassium 4.0 Chloride 97 Carbon Dioxide 32 H Anion Gap 14 BUN 22 H Creatinine 1.02 Estim Creat Clear Calc 68.4 Estimated GFR 55 Fasting Glucose 96 Calcium 7.9 L Magnesium 1.9 Total Bilirubin 1.3 H AST 34 H ALT 20 Alkaline Phosphatase 76 D Total Protein 5.8 L Albumin 3.5 D Blood Type A Positive Antibody Screen NEGATIVE Crossmatch See Detail Progress Note: A&P Assessment and plan (1) CHF (congestive heart failure): Status: Acute Assessment and Plan: CHF with some evidence of mild fluid overload without any central venous congestion. Although this is difficult to assess. Etiology of CHF is not entirely clear with normal LV systolic and diastolic function. Likely right heart failure from possible obesity hypoventilation or untreated sleep apnea and/or high output congestive heart failure. Start Lasix 20 mg p.o. starting tomorrow. Heart failure management was discussed with her. She understands and agrees. (2) Low blood pressure: Status: Acute Assessment and Plan: Patient with still soft blood pressure. Hold off on medications such as metoprolol as well as valsartan at this point in time. I think she needs more transfusion and maintain hematocrit over 30. Workup for source of bleeding needs to be pursued. If she receives packed RBC transfusion give her IV Lasix 20 mg following that. (3) Atrial arrhythmia: Status: Acute Assessment and Plan: Atrial arrhythmias without any significant evidence at this point time. Recommend digoxin 0.25 mg daily to her regimen. Continue monitor full disclosure cardiac telemetry. Will continue to follow with you Time Spent With Patient Time: Total time spent is greater than 50% in coordination of care (as documented) at patient's floor/unit and/or counseling patient: Progress Note: Quality Stroke Does the patient have a stroke diagnosis?: No Procedures Date of Service Date of Service: 01/03/22
--- NOTE | 2022-01-02 13:39 | P.PNIM_ITS ---
Subjective Subjective Date of Service: 01/02/22 Interval History: Feet feels ?lousy? today. Hemoglobin 6.5. No active bleeding Review of Systems Denies chest pain Denies shortness of breath Denies nausea vomiting diarrhea Denies fever chills Physical Exam Vital Signs: Vital Signs: Last Vital Signs Temp 99.1 F 01/02/22 13:23 Pulse 95 01/02/22 13:23 Resp 16 01/02/22 13:23 BP 90/40 L 01/02/22 13:23 Pulse Ox 95 01/02/22 11:06 O2 Del Method 01/02/22 11:06 BMI result Body Mass Index 45.3 Const: Other: No acute issues Resp: Other: Clear but diminished with scant crackles bilateral bases Cardio: Other: No S4; positive S1-S2; no S3 murmurs rubs gallops GI: Other: Soft nontender nondistended normoactive bowel sounds Objective Data Active Medications Acetaminophen (Acetaminophen 325 Mg Tablet) 650 mg PO Q6H PRN PRN Reason: Pain, Mild (Pain Scale 1-3) Last Admin: 01/01/22 22:02 Dose: 650 mg Documented By: MARIA INES Albuterol/Ipratropium (Albuterol/Iprat 2.5/0.5mg 3 Ml Ampul.Neb) 3 ml INHALE Q4H PRN PRN Reason: Shortness of Breath/Wheezing Azathioprine (Azathioprine 50 Mg Tablet) 50 mg PO BID [facility] Last Admin: 01/02/22 09:01 Dose: 50 mg Documented By: RAÚL Calcium Carbonate/Cholecalciferol (Calcium + Vitamin D 250 Mg Tablet) 500 mg PO DAILY [facility] Last Admin: 01/02/22 09:02 Dose: 500 mg Documented By: RAÚL Clonidine HCl (Clonidine Hcl 0.2 Mg Tablet) 0.2 mg PO BEDTIME [facility]; Protocol Last Admin: 01/01/22 21:56 Dose: 0.2 mg Documented By: MARIA INES Cyanocobalamin (Cyanocobalamin (Vitamin B-12) 1,000 Mcg Tablet) 1,000 mcg PO DAILY [facility] Last Admin: 01/02/22 09:02 Dose: 1,000 mcg Documented By: RAÚL Duloxetine HCl (Duloxetine Hcl 60 Mg Capsule.Dr) 60 mg PO BEDTIME [facility] Last Admin: 01/01/22 20:50 Dose: 60 mg Documented By: MARIA INES Enoxaparin Sodium (Enoxaparin Sodium 40 Mg/0.4 Ml Syringe) 40 mg SUBCUT Q24H [facility] Last Admin: 01/01/22 20:50 Dose: 40 mg Documented By: MARIA INES Metoprolol Succinate (Metoprolol Succinate Er 50 Mg Tab.Er.24h) 50 mg PO DAILY [facility]; Protocol Last Admin: 01/02/22 09:10 Dose: Not Given Documented By: RAÚL Non-Admin Reason: Physician Held Med Morphine Sulfate (Morphine Sulfate 4 Mg/Ml Cartridge) 4 mg IVPUSH Q4H PRN; Protocol PRN Reason: Pain, Severe (Pain Scale 7-10) Last Admin: 01/01/22 21:57 Dose: 4 mg Documented By: MARIA INES Ondansetron HCl (Ondansetron Hcl 4 Mg/2 Ml Vial) 4 mg IVPUSH Q8H PRN PRN Reason: Nausea and Vomiting Oxycodone HCl (Oxycodone Hcl Immed Release 5 Mg Tablet) 5 mg PO Q6H PRN PRN Reason: Pain, Severe (Pain Scale 7-10) Potassium Chloride (Potassium Chloride Er 20 Meq Tab.Er.Prt) 20 meq PO BID [facility] Last Admin: 01/02/22 09:03 Dose: 20 meq Documented By: RAÚL Sodium Chloride (0.9 % Sodium Chloride Flush 3 Ml Syringe) [address] [facility] Last Admin: 01/02/22 09:02 Dose: 3 ml Documented By: RAÚL Valsartan (Valsartan 40 Mg Tablet) 20 mg PO BID [facility]; Protocol Last Admin: 01/02/22 09:10 Dose: Not Given Documented By: RAÚL Non-Admin Reason: Physician Held Med Vitamin D (Cholecalciferol (Vitamin D3) 25 Mcg Tablet) 25 mcg PO DAILY [facility] Last Admin: 01/02/22 09:02 Dose: 25 mcg Documented By: RAÚL Labs CBC & Chem 7: 01/02/22 06:04 01/02/22 06:04 Labs: Laboratory Results - last 24 hr 01/02/22 01/02/22 01/02/22 06:04 06:04 07:55 MCV 90.2 MCH 28.9 MCHC 32.0 RDW 22.1 H Plt Count 84 L MPV 10.1 Immature Gran % (Auto) Cancelled Neut % (Auto) Cancelled Lymph % (Auto) Cancelled [place] % (Auto) Cancelled Eos % (Auto) Cancelled Baso % (Auto) Cancelled Lymph # (Auto) Cancelled [place] # (Auto) Cancelled Eos # (Auto) Cancelled Baso # (Auto) Cancelled Abs Immat Gran (auto) Cancelled Absolute Neuts (auto) Cancelled Absolute Nucleated RBC 0.000 Nucleated RBC % (auto) 0.0 Neutrophils % (Manual) 44 L Band Neutrophils % 14 H Lymphocytes % (Manual) 38 Monocytes % (Manual) 2 Metamyelocytes % 2 Abs Neuts (Manual) 0.8 L Lymphocytes # (Manual) 0.5 L Platelet Estimate DECREASED Plt Morphology Comment NORMAL RBC Morphology NOTED Hypochromasia 1+ (5-14) Tear Drop Cells 2+ (3-5) Ovalocytes 1+ (5-14) Anion Gap 14 Estim Creat Clear Calc 68.4 Estimated GFR 55 Fasting Glucose 96 Calcium 7.9 L Magnesium 1.9 Total Bilirubin 1.3 H AST 34 H ALT 20 Alkaline Phosphatase 76 D Total Protein 5.8 L Albumin 3.5 D Blood Type A Positive Antibody Screen NEGATIVE Crossmatch See Detail Microbiology Microbiology Results: Microbiology 12/30/21 16:40 Blood Culture - Preliminary Blood - Venous No growth after 48 hours. 12/30/21 16:40 Blood Culture - Preliminary Blood - Venous No growth after 48 hours. 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 Admitted for CHF exacerbation 1.Acute/chronic HFpEF exacerbation - hold Lasix at this time given low blood pressures --add back valsartan 20 mg b.i.d. when appropriate 2 Anemia. (query etiology) -will consult GI as patient has had history of bloody stools -will ask patient's oncologist Dr. Hernández to review labs and offer advice 3. History SVT - continue metoprolol succinate... No room to increase with relative hypotension -replete divalents -digoxin 0.25 IV q.6 x3 doses -adjust as clinically indicated 4. HTN - acceptable control on current therapies -adjust as indicated 5..Dermatomyositis - continue prednisone /azathiorpine; - stress-dose hydrocortisone if develops hypotension or critical illness VTE ppx: LMWH Requires continued hospitalization for the following reasons: IV diuresis Quality Stroke Does the patient have a stroke diagnosis?: No VTE Prior VTE?: No VTE Risk Level:: Medical - moderate - high VTE Device Contraindication: N/A - Device Ordered VTE Drug Contraindication: N/A - Med Ordered
[2022-01-02] MEDS: Digoxin 0.5 MG/2 ML AMPUL 0.25 MG IVPUSH ×2 (14:53→22:03)
[2022-01-02] MEDS: Acetaminophen 325 MG TABLET 650 MG PO (15:39)
--- NOTE | 2022-01-02 16:51 | P.CNHO_ITS ---
Subjective - Subjective Chief complaint: Consult for: Pancytopenia. Breast cancer. Patient: known to practice within the last 3 years Consult date: 01/02/22 Requesting Physician: Natalie. Primary Care Provider: Panda Felix MD Medical Summary: DIAGNOSIS: 1. PANCYTOPENIA. 2. BREAST CANCER. 3. ON CHEMOTHERAPY. HPI - Consult Narrative Reason for consult: Consult for: 1. Pancytopenia. 2. Breast cancer. 3. On ch emotherapy. Narrative: Kate Almaguer is a pleasant 66 year old lady who presented on 12/29, with the complaints of: dyspnea, edema, weight gain. HPI: Invasive carcinoma of right breast s/p lumpectomy who started carboplatin/docetaxel/trastuzumab/pertuzumab on 11/16/21. She recieved her 3rd cycle on 12/28. Recent admissions 11/23-11/27/21 for SVT and colitis, again 12/24-12/19/21 for colitis. She is on IVIg and a prolonged steroid taper for dermatomyositis as prescribed by her refinisher, Dr Felix. She was on 90 mg of prednisone in June and is currently on 40 mg. She presented with worsening exertional dyspnea for the past week. She complai ns of orthopnea and leg swelling. She was prescribed furosemide on 12/28. An echocardiogram done on 12/27/21 as an outpatient demonstrated normal LVEF and grade 2 diastolic dysfunction. She notes that at the beginning of chemotherapy, she weighed 99 kg; currently, she weighs 116 kg. No chest pain. She does have a history of asthma but is not wheezing. In the ED, she was given IV furosemide and placed on CPAP of 8 cm H2O @ 35% fiO2. She was then breathing comfortably. Bilateral leg Dopplers; negative. BNP is 149 and high-sensitivity troponin-I 25. EKG with sinus tachycardia. She was initially not neutropenic. Review of Systems Review of Systems: AQll other systems are reviewed and are negative PMFSH Medical History : Anxiety Breast calcification, right Breast cancer, right Colitis Dermatomyositis Encounter to establish care History of COVID-19 Hypertension Insomnia Invasive ductal carcinoma of right breast Lumbar degenerative disc disease Major depression, chronic Pain in both feet Pancolitis Pancytopenia Pedal edema Port-A-Cath in place Family History; Mother No problems noted. Father Breast cancer Bone cancer Brother Substance use disorder Paternal Aunt Breast cancer Review of Systems - Constitutional Reports system reviewed and no additional complaints, except as documented, Reports fatigue, Reports fever(s), Reports lack of energy, Reports malaise, Reports poor appetite, Reports weakness, Reports weight gain - Eyes Reports system reviewed and no additional complaints, except as documented - ENT Reports system reviewed and no additional complaints, except as documented - Cardiovascular Reports system reviewed and no additional complaints, except as documented - Respiratory Reports no additional respiratory complaints - Gastrointestinal Reports system reviewed and no additional complaints, except as documented - Genitourinary Reports no additional female genitourinary complaints - Musculoskeletal Reports system reviewed and no additional complaints, except as documented - Integumentary/Breasts Skin/Breast: Reports no additional skin complaints - Neurologic Reports system reviewed and no additional complaints, except as documented, Reports weakness - Psychiatric Reports system reviewed and no additional complaints, except as documented - Endocrine Reports no additional endocrine complaints - Hematologic/Lymphatic Reports system reviewed and no additional complaints, except as documented - Allergic/Immunologic Reports system reviewed and no additional complaints, except as documented Oncology Screenings - ECOG Performance Status ECOG Performance Status: 2 [facility] Medical History: Medical History (Last Reviewed 12/29/21 @ 18:25 by Dwight Ramsey MD) Anxiety Breast calcification, right Breast cancer, right Colitis Dermatomyositis Encounter to establish care History of COVID-19 Hypertension Insomnia Invasive ductal carcinoma of right breast Lumbar degenerative disc disease Major depression, chronic Pain in both feet Pancolitis Pancytopenia Pedal edema Port-A-Cath in place Functional capacity: wheelchair bound Patient : No Family History: Family History (Last Reviewed 12/29/21 @ 18:25 by Dwight Ramsey MD) Mother No problems noted. Father Breast cancer Bone cancer Brother Substance use disorder Paternal Aunt Breast cancer Surgical History: Surgical History (Last Reviewed 12/29/21 @ 18:25 by Dwight Ramsey MD) History of arthroscopic knee surgery History of section History of cholecystectomy History of fusion of cervical spine History of gastric bypass History of hysterectomy History of tonsillectomy Hx of colonoscopy Status post right breast lumpectomy Social History: Social History (Last Reviewed 12/29/21 @ 18:25 by Dwight Ramsey MD) Living Situation History: Household Members: Children Housing: House Are you a primary certified caregiver to a significant other at home: No Do you presently have visiting nurse or other home services: No Tobacco History: Patient Tobacco Use Status: Former Tobacco user Tobacco use type: Cigarette Smoke Quit Date: 12 yrs ago e-Cigarette/Vaping Use: Never Used Advance Directives: Advance Directives Date on File: 11/28/21 Occupation Assessmet: service: No Current occupational status: unemployed Current occupational status: retired Home Medications and Allergies Current Medications: Current Medications Acetaminophen (Acetaminophen 325 Mg Tablet) 650 mg PO Q6H PRN PRN Reason: Pain, Mild (Pain Scale 1-3) Last Admin: 01/02/22 15:39 Dose: 650 mg Albuterol/Ipratropium (Albuterol/Iprat 2.5/0.5mg 3 Ml Ampul.Neb) 3 ml INHALE Q4H PRN PRN Reason: Shortness of Breath/Wheezing Azathioprine (Azathioprine 50 Mg Tablet) 50 mg PO BID [facility] Last Admin: 01/02/22 09:01 Dose: 50 mg Calcium Carbonate/Cholecalciferol (Calcium + Vitamin D 250 Mg Tablet) 500 mg PO DAILY [facility] Last Admin: 01/02/22 09:02 Dose: 500 mg Clonidine HCl (Clonidine Hcl 0.2 Mg Tablet) 0.2 mg PO BEDTIME [facility]; Protocol Last Admin: 01/01/22 21:56 Dose: 0.2 mg Cyanocobalamin (Cyanocobalamin (Vitamin B-12) 1,000 Mcg Tablet) 1,000 mcg PO DAILY [facility] Last Admin: 01/02/22 09:02 Dose: 1,000 mcg Digoxin (Digoxin 0.5 Mg/2 Ml Ampul) 0.25 mg IVPUSH Q6H [facility] Stop: 01/03/22 02:01 Last Admin: 01/02/22 14:53 Dose: 0.25 mg Duloxetine HCl (Duloxetine Hcl 60 Mg Capsule.Dr) 60 mg PO BEDTIME [facility] Last Admin: 01/01/22 20:50 Dose: 60 mg Enoxaparin Sodium (Enoxaparin Sodium 40 Mg/0.4 Ml Syringe) 40 mg SUBCUT Q24H [facility] Last Admin: 01/01/22 20:50 Dose: 40 mg Metoprolol Succinate (Metoprolol Succinate Er 50 Mg Tab.Er.24h) 50 mg PO DAILY [facility]; Protocol Last Admin: 01/02/22 09:10 Dose: Not Given Morphine Sulfate (Morphine Sulfate 4 Mg/Ml Cartridge) 4 mg IVPUSH Q4H PRN; Protocol PRN Reason: Pain, Severe (Pain Scale 7-10) Last Admin: 01/01/22 21:57 Dose: 4 mg Ondansetron HCl (Ondansetron Hcl 4 Mg/2 Ml Vial) 4 mg IVPUSH Q8H PRN PRN Reason: Nausea and Vomiting Oxycodone HCl (Oxycodone Hcl Immed Release 5 Mg Tablet) 5 mg PO Q6H PRN PRN Reason: Pain, Severe (Pain Scale 7-10) Potassium Chloride (Potassium Chloride Er 20 Meq Tab.Er.Prt) 20 meq PO BID [facility] Last Admin: 01/02/22 09:03 Dose: 20 meq Sodium Chloride (0.9 % Sodium Chloride Flush 3 Ml Syringe) 3 ml IVFLUSH QSHIFT [facility] Last Admin: 01/02/22 16:40 Dose: Not Given Valsartan (Valsartan 40 Mg Tablet) 20 mg PO BID [facility]; Protocol Last Admin: 01/02/22 09:10 Dose: Not Given Vitamin D (Cholecalciferol (Vitamin D3) 25 Mcg Tablet) 25 mcg PO DAILY [facility] Last Admin: 01/02/22 09:02 Dose: 25 mcg Home Medications Medication Instructions Recorded Confirmed Type ketoconazole 2 % shampoo 1 appl topical 2XW 09/28/21 12/29/21 History cyanocobalamin (vitamin B-12) 1,000 mcg PO BEDTIME 10/12/21 12/29/21 History 1,000 mcg capsule calcium carbonate 600 mg-vitamin 1 tab PO DAILY 10/31/21 12/29/21 History D3 10 mcg (400 unit) tablet prednisone 10 mg tablet 40 mg PO DAILY 11/08/21 12/29/21 History cholecalciferol (vitamin D3) 25 25 mcg PO DAILY 11/23/21 12/29/21 History mcg (1,000 unit) tablet alendronate 70 mg tablet 70 mg PO FR@0600 11/29/21 12/29/21 History ondansetron 8 mg disintegrating 8 mg PO Q8H PRN Nausea 11/29/21 12/29/21 History tablet azathioprine 50 mg tablet 50 mg PO BID 12/29/21 12/29/21 History betamethasone dipropionate 0.05 % 1 appl topical BID 12/29/21 12/29/21 History lotion hydrochlorothiazide 12.5 mg tablet 12.5 mg PO DAILY 12/29/21 12/29/21 History lisinopril 20 mg tablet 20 mg PO DAILY 12/29/21 12/29/21 History Allergies Allergy/AdvReac Type Severity Reaction Status Date / Time No Known Allergies Allergy Verified 12/27/21 00:53 Physical Exam Vital signs: Vital Signs Temp 98.9 F 01/02/22 15:59 Pulse 93 01/02/22 15:59 Resp 16 01/02/22 15:59 BP 118/59 L 01/02/22 15:59 Pulse Ox 95 01/02/22 15:59 O2 Del Method 01/02/22 15:59 Intake & Output 01/01/22 01/02/22 01/02/22 18:59 06:59 18:59 Intake Total 670 / 870 200 / 870 550 / 550 Output Total 700 / 700 0 / 0 Balance 670 / 170 -500 / 170 550 / 550 Urine Output (Average ml/kg/hr) 0.36 0.00 Intake: Intake, Oral Amount 220 / 220 0 / 220 200 / 200 Intake (Blood Product) Amount 350 / 350 Red Blood Cells (E0382) Unit 350 / 350 [id number] Red Blood Cells (E0382) Unit 0 / 0 [id number] Intake, IV Amount 450 / 650 200 / 650 Albumin Human 25 % 100 ml @ 100 200 / 200 mls/hr IV ONCE ONE Rx#: [id number] Magnesium Sulfate/H2O 2 gm In 50 / 50 50 ml @ 25 mls/hr IV ONCE ONE Rx#:[id number] Potassium Chloride/H20 10 meq 400 / 400 In 100 ml @ 100 mls/hr IV Q1H [facility] Rx#:[id number] Output: Output, Urine Amount 500 / 500 0 / 0 Output, Post Void Residual 200 / 200 Amount Other: Breakfast % Eaten 100% 25% Lunch % Eaten 100% 25% Number of Incontinent Voids 1 Number of Bowel Movements 2 Urine Bathroom purewick purewick Urine Color purewice Tea Last Bowel Movement 01/02/22 Stool Bedside Commode Stool Amount Moderate Stool Consistency Liquid Weight 116 kg - Constitutional Present: moderate distress - Routine HEENT Exam Head: Present: normal inspection ENT: Present: mucous membranes moist - Routine Neck Exam Present: supple - Routine Respiratory Exam Present: CTAB - Routine Abdominal Exam Present: normal bowel sounds, nontender - Routine Extremities Exam Present: pallor, nontender - Routine Skin Exam Present: intact - Routine Neurological Exam Present: alert, oriented X3, normal speech Hem/Onc Consult Result - Labs CBC & Chem 7: 01/02/22 06:04 01/02/22 06:04 Labs: Short CBC 01/02/22 Range/Units 06:04 WBC 1.3 L (4.8-10.8) X10*3/uL Hgb 6.5 L* (12.0-16.0) g/dl Hct 20.3 L* (37.0-47.0) % Plt Count 84 L (160-400) X10*3/uL BMP 01/02/22 06:04 Sodium 139 Potassium 4.0 Chloride 97 Carbon Dioxide 32 H BUN 22 H Creatinine 1.02 Calcium 7.9 L Liver Function 01/02/22 Range/Units 06:04 Total Bilirubin 1.3 H (0.0-1.0) mg/dL AST 34 H (5-31) U/L ALT 20 (0-31) U/L Alkaline Phosphatase 76 D (39-117) U/L Albumin 3.5 D (3.5-5.0) g/dL Assessment and Plan Patient Active problem list reviewed?: Yes (1) Invasive ductal carcinoma of right breast Problem details: micrometastestases in sentinel node Status: Acute Assessment and plan: 66-year-old lady with recent diagnosis of infiltrating ductal carcinoma of the right breast. This is ER positive, WI negative, HER2 Liz positive. Since she had HER2 positive disease with micro metastatic disease to the axilla, she was considered a candidate for adjuvant systemic chemotherapy. I have offered her CHTP. However she a history of recently diagnosed dermatomyositis. She has been on high-dose steroids. I did touch base with Dr. Felix. He agreed with the chemotherapy agents. He also feels, like Dr. Webb, from radiation, that in the setting of malignancy related dermatomyositis, treatment of malignancy should help improve her symptoms. Her baseline echocardiogram was:wnl. She had her Port-A-Cath,placed. She underwent chemotherapy teaching. Details of the regimen including potential side effects of nausea vomiting diarrhea, skin rash, hypersensitivity reaction, hand-foot syndrome, cardiotoxicity, nephrotoxicity, pancytopenia, risk of i nfection, need for antibiotic blood transfusions as well as growth factors were all addressed with her. She understood and was willing to proceed. She was started on the treatment on 11/16. She had cycle 3 On Dermatomyositis on prolonged steroid taper + IVIg. She was recently admitted for SVT and colitis. She now presented with 1 week of worsening exertional dyspnea and orthopnea associated with leg edema and 17 kg weight gain. The impression is of [id number] HFpEF # Acute/chronic HFpEF exacerbation PLAN: - Plan is to continue furosemide diuresis,Metoprolol Succinate. Will monitor electrolytes and BNP, consult Cardiology. # Acute hypoxic respiratory failure. wean to O2 via NC # hypoK: replete, recheck in AM # hx SVT - continue metoprolol succinate # Dermatomyositis: - continue prednisone. Stress-dose hydrocortisone if develops hypotension or critical illness. # PANCYTOPENIA: Related to chemotherapy. She is to receive 2 units of packed RBCs. She did receive Neulasta Onpro. Hopefully the white count will rebound quickly. Will cover with broad-spectrum antibiotics to cover for Gram-negative enteric bacteria in case of a fever. Will continue supportive care as you are doing. Thank you for the consult, Cc: Dr. Felix. Thank you, Cc: Dr. Palacios. Leslie dunn. - Time Spent With Patient Time Spent with Patient (in minutes): 30
[2022-01-02] MEDS: Valsartan 40 MG TABLET 20 MG PO (22:02)
[2022-01-02] MEDS: cloNIDine HCL 0.2 MG TABLET PO (22:03)
[2022-01-02] MEDS: DULoxetine HCl 60 MG CAPSULE.DR PO (22:03)
[2022-01-02] MEDS: Enoxaparin Sodium 40 MG/0.4 ML SYRINGE SUBCUT (22:04)
[2022-01-03] VITALS (10 sets, daily range): BP systolic 102–119; BP diastolic 54–60; PULSE 76–93; RESP 16–20; TEMP 36.7–38; O2SAT 96–98
[2022-01-03] MEDS: Morphine Sulfate 4 MG/ML CARTRIDGE IVPUSH (03:15)
[2022-01-03] MEDS: Digoxin 0.5 MG/2 ML AMPUL 0.25 MG IVPUSH (03:15)
[2022-01-03] MEDS: 0.9 % Sodium Chloride Flush 3 ML SYRINGE IVFLUSH ×4 (04:07→22:19)
[2022-01-03 07:01] LABS: Alanine Aminotransferase 19 U/L (0-31); Albumin Level 3.3 g/dL (3.5-5.0); Alkaline Phosphatase 73 U/L (39-117); Anion Gap 14 (12-20); Aspartate Amino Transferase 34 U/L (5-31); Bilirubin Total 0.9 mg/dL (0.0-1.0); Blood Urea Nitrogen 12 mg/dL (9-16); Calcium 7.9 mg/dL (8.4-10.2); Carbon Dioxide 28 mmol/L (22-29); Chloride 102 mmol/L (96-108); Creatinine Clr Calc Pharmacy 93.1; Estimated Glomerular Filt Rate > 60; Glucose Fasting 97 mg/dL (60-99); Potassium 4.7 mmol/L (3.3-5.1); Sodium 139 mmol/L (135-145); Total Protein 5.7 g/dL (6.5-8.0)
[2022-01-03 07:02] LABS: Mean Platelet Volume 11.3 fL (9.4-12.3); PLT CLUMP 1
[2022-01-03 07:04] LABS: Hematocrit 26.7 % (37.0-47.0); Hemoglobin 8.5 g/dl (12.0-16.0); Mean Corpuscular HGB Conc 31.8 g/dl (31.0-35.0); Mean Corpuscular Hemoglobin 29.2 pg (27.0-33.0); Mean Corpuscular Volume 91.8 fL (80.0-98.0); Red Blood Count 2.91 X10*6/uL (4.20-5.50); Red Cell Distribution Width 19.9 % (11.0-16.0)
[2022-01-03 07:10] LABS: WBC ABN SCTR FOR CBC 1
--- NOTE | 2022-01-03 07:38 | P.CDIC_ITS ---
CDI Concurrent Query Documentation Clarification: PHYSICIAN'S DOCUMENTATION REQUEST Date of Query: 01/03/22 0739 Patient Name: Kate Almaguer Admit Date: 12/29/21 Dear Doctor, A review of the medical record indicates additional documentation may be needed. Please review below and update the documentation accordingly. Clinical Indicators: Is there a diagnosis that correlates with the findings below. The patient's infectious clinical indicators include: Risk Factors/Clinical Indicators/Treatments POA/RESOLVED/TREAT/RULE OUT LABS: WBC on 01/02 - 1.3 VITALS: TEMP on 01/02 - 100.7 HR on 12/30 - HR on 12/31 RR on 12/29 RR on 12/30 BP on 01/02 - / ADMINISTERED MEDICATIONS: Vancomycin Zosyn Recognized standard criteria for this condition and other infectious definitions includes: Sepsis Systemic manifestations of infection, with 2 or more SIRS criteria which include: * Fever > 100.4?F or hypothermia < 96.8?F * Leukocytosis ? WBC > 12,000 or leukopenia, WBC < 4,000, or > 10% bands * Tachycardia- > 90 beats/minute * Tachypnea- RR > 20 breaths/minute or PaCO2 < 32mmHg Source: [employer] Manual 2013 Documentation should include the known or suspected organism, and the underlying infection, such as UTI or pneumonia Severe Sepsis Sepsis with associated acute organ dysfunction, such as renal or respiratory failure Documentation should indicate the association between the sepsis and the organ dysfunction Septic Shock Severe sepsis with associated with circulatory failure, evidenced by hypotension and hypoperfusion Based on the above information and the recognized standard for sepsis, could you please clarify in the Progress Notes if this diagnoses is still accurate and reflective of the patient's condition to ensure quality of the medical record. * Sepsis is/was present and is a clinical diagnosis based on (please include this additional support in the medical record) * After study (the condition) has been ruled out * Other (please specify) * Unable to determine Use of terms such as suspected, likely, concern for, or probable (associated with a specific diagnosis that is being evaluated, monitored, or treated as if it exists) are acceptable and can be coded in the inpatient setting, when documented at the time of discharge. Thank you, Eva Chinchilla MS, RN, CCRN Extension: [phone] Please use your independent medical judgment in providing your response. THIS QUERY IS PART OF THE PERMANENT MEDICAL RECORD Provider Response: Other Other Diagnosis: After studies and discussion with Hematology, pancytopenia secondary to chemo covered empirically pending blood cultures. Sepsis was ruled out
[2022-01-03 08:24] LABS: Atypical Lymphs Percent Manual 1 % (0-6); Band Neutrophils Percent 13 % (3-5); Lymphocytes Percent Manual 49 % (20-40); Metamyelocytes Percent 1 %; Monocytes Percent Manual 11 % (2-11); Neutrophils Percent Manual 25 % (45-73)
[2022-01-03 08:27] LABS: Dohle Bodies PRESENT; Hypochromasia 1+ (5-14) /OIF; Macrocytosis 1+ (5-14) /OIF; Microcytosis 1+ (5-14) /OIF; Ovalocytes 1+ (5-14) /OIF; RBC Morphology NOTED; Tear Drop Cells 1+ (0-2) /OIF
[2022-01-03 08:28] LABS: Platelet Estimate DECREASED (NORMAL); Platelet Morphology Comment NORMAL
[2022-01-03 08:29] LABS: Lymphocytes Absolute Manual 0.7 X10*3/uL (1.2-4.9); Monocytes Absolute Manual 0.2 X10*3/uL (0.1-1.2); Neutrophils Absolute Manual 0.6 X10*3/uL (2.0-8.3); Platelet Count 94 X10*3/uL (160-400); White Blood Count 1.5 X10*3/uL (4.8-10.8)
[2022-01-03] MEDS: Cholecalciferol (Vitamin D3) 25 MCG TABLET PO (08:43)
[2022-01-03] MEDS: Calcium + Vitamin D 250 MG TABLET 500 MG PO (08:44)
[2022-01-03] MEDS: Cyanocobalamin (Vitamin B-12) 1,000 MCG TABLET 1000 MCG PO (08:44)
[2022-01-03] MEDS: azaTHIOprine 50 MG TABLET PO ×2 (08:44→22:18)
[2022-01-03] MEDS: Potassium Chloride ER 20 MEQ TAB.ER.PRT PO ×2 (08:45→22:17)
[2022-01-03] MEDS: Piperacillin Sodium/Tazobactam 4.5 GM in 0.9 % Sodium Chloride 100 ML IV ×3 (09:00→22:16)
[2022-01-03] MEDS: Alteplase Cath Clear 2 MG VIAL INTRACATH (09:20)
--- NOTE | 2022-01-03 10:52 | PHA.PROG ---
Admission Date/Time: December 29, 2021 18:16 Indication: other Weight in k kg Adjusted body weight in Kg: [place] body weight in Kg: Obesity Dosing Indication % IBW: Serum Creatinine - Last 168 Hours 12/29/21 12/30/21 12/31/21 16:26 06:35 07:33 Creatinine 0.78 0.78 0.70 12/31/21 01/01/22 01/02/22 22:45 06:03 06:04 Creatinine 0.76 0.76 1.02 01/03/22 06:08 Creatinine 0.75 Estimated CrCl and GFR - Last 168 Hours 12/29/21 12/30/21 12/31/21 16:26 06:35 07:33 Estim Creat Clear Calc 89.5 89.5 99.7 Estimated GFR > 60 > 60 > 60 12/31/21 01/01/22 01/02/22 22:45 06:03 06:04 Estim Creat Clear Calc 91.9 91.9 68.4 Estimated GFR > 60 > 60 55 01/03/22 06:08 Estim Creat Clear Calc 93.1 Estimated GFR > 60 Vancomycin Loading Dose: 2000mg x 1 Current Vancomycin Dosing Regimen: 750mg Q12H Vancomycin Monitoring using AUC goal of 400 - 600 range with trough as surrogate marker: 431mg/L Date and Time for next Vancomycin Level to be drawn: 01/04/22 @1900 Pharmacist Comments on Vancomycin Plan: using obese model, will continue to monitor renal function and adjust accordingly Vancomycin dosing will take advantage of [employer] as a clinical decision support tool that uses Bayesian modeling to calculate individual patient's pharmacokinetic parameters and forecast the patient's drug concentration time course with the target goal AUC 24 range of 400 - 600 mg/L/hr.
--- NOTE | 2022-01-03 14:19 | P.PNIM_ITS ---
Subjective Subjective Date of Service: 01/03/22 Interval History: Slowly feeling better no acute issues overnight Review of Systems Denies chest pain Denies shortness of breath Denies nausea vomiting diarrhea Denies fever chills Physical Exam Vital Signs: Vital Signs: Last Vital Signs Temp 98.7 F 01/03/22 11:12 Pulse 76 01/03/22 11:12 Resp 18 01/03/22 11:12 BP 107/56 L 01/03/22 11:12 Pulse Ox 98 01/03/22 11:12 O2 Del Method 01/03/22 11:12 BMI result Body Mass Index 45.3 Const: Other: No acute issues Resp: Other: Clear but diminished with scant crackles bilateral bases Cardio: Other: No S4; positive S1-S2; no S3 murmurs rubs gallops GI: Other: Soft nontender nondistended normoactive bowel sounds Objective Data Active Medications Acetaminophen (Acetaminophen 325 Mg Tablet) 650 mg PO Q6H PRN PRN Reason: Pain, Mild (Pain Scale 1-3) Last Admin: 01/02/22 15:39 Dose: 650 mg Documented By: LOUISA Albuterol/Ipratropium (Albuterol/Iprat 2.5/0.5mg 3 Ml Ampul.Neb) 3 ml INHALE Q4H PRN PRN Reason: Shortness of Breath/Wheezing Azathioprine (Azathioprine 50 Mg Tablet) 50 mg PO BID [facility] Last Admin: 01/03/22 08:44 Dose: 50 mg Documented By: HITESH Calcium Carbonate/Cholecalciferol (Calcium + Vitamin D 250 Mg Tablet) 500 mg PO DAILY [facility] Last Admin: 01/03/22 08:44 Dose: 500 mg Documented By: HITESH Clonidine HCl (Clonidine Hcl 0.2 Mg Tablet) 0.2 mg PO BEDTIME [facility]; Protocol Last Admin: 01/02/22 22:03 Dose: 0.2 mg Documented By: MARIA INES Cyanocobalamin (Cyanocobalamin (Vitamin B-12) 1,000 Mcg Tablet) 1,000 mcg PO DAILY [facility] Last Admin: 01/03/22 08:44 Dose: 1,000 mcg Documented By: HITESH Duloxetine HCl (Duloxetine Hcl 60 Mg Capsule.Dr) 60 mg PO BEDTIME [facility] Last Admin: 01/02/22 22:03 Dose: 60 mg Documented By: MARIA INES Enoxaparin Sodium (Enoxaparin Sodium 40 Mg/0.4 Ml Syringe) 40 mg SUBCUT Q24H [facility] Last Admin: 01/02/22 22:04 Dose: 40 mg Documented By: MARIA INES Piperacillin Sod/Tazobactam (Sod 4.5 gm/ Sodium Chloride) 100 mls @ 200 mls/hr IV Q6H [facility] Last Admin: 01/03/22 14:09 Dose: 200 mls/hr Documented By: HITESH Vancomycin HCl 750 mg/ Sodium (Chloride) 265 mls @ 265 mls/hr IV Q12H [facility] Metoprolol Succinate (Metoprolol Succinate Er 50 Mg Tab.Er.24h) 50 mg PO DAILY [facility]; Protocol Last Admin: 01/03/22 09:29 Dose: Not Given Documented By: HITESH Non-Admin Reason: Decreased Blood Pressure Morphine Sulfate (Morphine Sulfate 4 Mg/Ml Cartridge) 4 mg IVPUSH Q4H PRN; Protocol PRN Reason: Pain, Severe (Pain Scale 7-10) Last Admin: 01/03/22 03:15 Dose: 4 mg Documented By: MARIA INES Ondansetron HCl (Ondansetron Hcl 4 Mg/2 Ml Vial) 4 mg IVPUSH Q8H PRN PRN Reason: Nausea and Vomiting Oxycodone HCl (Oxycodone Hcl Immed Release 5 Mg Tablet) 5 mg PO Q6H PRN PRN Reason: Pain, Severe (Pain Scale 7-10) Pharmacy Consult (Consult Rx Vancomycin Dosing) 1 each MISCELLANE DAILY PRN PRN Reason: Consult order Potassium Chloride (Potassium Chloride Er 20 Meq Tab.Er.Prt) 20 meq PO BID [facility] Last Admin: 01/03/22 08:45 Dose: 20 meq Documented By: HITESH Sodium Chloride (0.9 % Sodium Chloride Flush 3 Ml Syringe) 3 ml IVFLUSH QSHIFT [facility] Last Admin: 01/03/22 14:13 Dose: 3 ml Documented By: HITESH Valsartan (Valsartan 40 Mg Tablet) 20 mg PO BID [facility]; Protocol Last Admin: 01/03/22 09:29 Dose: Not Given Documented By: HITESH Non-Admin Reason: Decreased Blood Pressure Vitamin D (Cholecalciferol (Vitamin D3) 25 Mcg Tablet) 25 mcg PO DAILY [facility] Last Admin: 01/03/22 08:43 Dose: 25 mcg Documented By: HITESH Labs CBC & Chem 7: 01/03/22 06:08 01/03/22 06:08 Labs: Laboratory Results - last 24 hr 01/02/22 01/03/22 01/03/22 07:55 06:08 06:08 MCV 91.8 MCH 29.2 MCHC 31.8 RDW 19.9 H Plt Count 94 L MPV 11.3 Immature Gran % (Auto) Cancelled Neut % (Auto) Cancelled Lymph % (Auto) Cancelled [place] % (Auto) Cancelled Eos % (Auto) Cancelled Baso % (Auto) Cancelled Lymph # (Auto) Cancelled [place] # (Auto) Cancelled Eos # (Auto) Cancelled Baso # (Auto) Cancelled Abs Immat Gran (auto) Cancelled Absolute Neuts (auto) Cancelled Absolute Nucleated RBC 0.000 Nucleated RBC % (auto) 0.0 Neutrophils % (Manual) 25 L Band Neutrophils % 13 H Lymphocytes % (Manual) 49 H Atypical Lymphs % (Man) 1 Monocytes % (Manual) 11 Metamyelocytes % 1 Abs Neuts (Manual) 0.6 L Lymphocytes # (Manual) 0.7 L Monocytes # (Manual) 0.2 Dohle Bodies PRESENT Platelet Estimate DECREASED Plt Morphology Comment NORMAL RBC Morphology NOTED Hypochromasia 1+ (5-14) Microcytosis 1+ (5-14) Macrocytosis 1+ (5-14) Tear Drop Cells 1+ (0-2) Ovalocytes 1+ (5-14) Anion Gap 14 Estim Creat Clear Calc 93.1 Estimated GFR > 60 Fasting Glucose 97 Calcium 7.9 L Magnesium 2.0 Total Bilirubin 0.9 AST 34 H ALT 19 Alkaline Phosphatase 73 Total Protein 5.7 L Albumin 3.3 L Blood Type A Positive Antibody Screen NEGATIVE Crossmatch See Detail Assessment and Plan (1) Acute on chronic heart failure with preserved ejection fraction (HFpEF): Status: Acute (2) Anemia: Status: Acute Plan 66yo F with 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 Admitted for CHF exacerbation 1.Acute/chronic HFpEF exacerbation - hold Lasix at this time given low blood pressures --add back valsartan 20 mg b.i.d. when appropriate 2 Anemia. (query etiology) -as per Cardiology request will transfuse 2 additional units to maintain HCT greater than 30 -follow-up CBC 3. History SVT - continue metoprolol succinate... No room to increase with relative hypotension -replete divalents -digoxin 0.25 IV q.6 x3 doses -adjust as clinically indicated 4. HTN - acceptable control on current therapies -adjust as indicated 5..Dermatomyositis - continue prednisone /azathiorpine; - stress-dose hydrocortisone if develops hypotension or critical illness VTE ppx: LMWH Requires continued hospitalization for the following reasons: IV diuresis Quality Stroke Does the patient have a stroke diagnosis?: No VTE Prior VTE?: No VTE Risk Level:: Medical - moderate - high VTE Device Contraindication: N/A - Device Ordered VTE Drug Contraindication: N/A - Med Ordered
--- NOTE | 2022-01-03 15:45 | MHC.CM.PN ---
per rounds pt not ready for dc plan [facility] home no servcis
[2022-01-03] MEDS: Acetaminophen 325 MG TABLET 650 MG PO (18:07)
[2022-01-03] MEDS: Enoxaparin Sodium 40 MG/0.4 ML SYRINGE SUBCUT (18:07)
[2022-01-03] MEDS: vancomycin HCL 750 MG in 0.9 % Sodium Chloride 250 ML 265 MG IV (22:17)
[2022-01-03] MEDS: DULoxetine HCl 60 MG CAPSULE.DR PO (22:17)
[2022-01-03] MEDS: cloNIDine HCL 0.2 MG TABLET PO (22:18)
[2022-01-04] VITALS (9 sets, daily range): BP systolic 100–145; BP diastolic 54–74; PULSE 77–90; RESP 14–20; TEMP 35.7–37.1; O2SAT 97–98
[2022-01-04] MEDS: Piperacillin Sodium/Tazobactam 4.5 GM in 0.9 % Sodium Chloride 100 ML IV ×4 (02:23→19:05)
[2022-01-04] MEDS: Calcium + Vitamin D 250 MG TABLET 500 MG PO (08:05)
[2022-01-04] MEDS: 0.9 % Sodium Chloride Flush 3 ML SYRINGE IVFLUSH ×3 (08:05→20:39)
[2022-01-04] MEDS: Cyanocobalamin (Vitamin B-12) 1,000 MCG TABLET 1000 MCG PO (08:05)
[2022-01-04] MEDS: azaTHIOprine 50 MG TABLET PO ×2 (08:05→20:37)
[2022-01-04] MEDS: Potassium Chloride ER 20 MEQ TAB.ER.PRT PO ×2 (08:05→20:40)
[2022-01-04] MEDS: Cholecalciferol (Vitamin D3) 25 MCG TABLET PO (08:05)
[2022-01-04 08:21] LABS: Hemoglobin 11.2 g/dl (12.0-16.0); Mean Platelet Volume 11.4 fL (9.4-12.3); PLT CLUMP 1; Red Cell Distribution Width 18.6 % (11.0-16.0)
[2022-01-04 08:23] LABS: Hematocrit 34.5 % (37.0-47.0); Mean Corpuscular HGB Conc 32.5 g/dl (31.0-35.0); Mean Corpuscular Hemoglobin 28.8 pg (27.0-33.0); Mean Corpuscular Volume 88.7 fL (80.0-98.0); Red Blood Count 3.89 X10*6/uL (4.20-5.50)
[2022-01-04 08:33] LABS: NRBC Pct Auto 1.2 /100WBC (0.0-0.2); WBC ABN SCTR FOR CBC 1
[2022-01-04 08:38] LABS: Creatinine Clr Calc Pharmacy 93.1; Estimated Glomerular Filt Rate > 60; Magnesium 1.6 mg/dL (1.6-2.6)
[2022-01-04 08:46] LABS: Atypical Lymphs Percent Manual 2 % (0-6); Band Neutrophils Percent 9 % (3-5); Dohle Bodies PRESENT; Eosinophils Percent Manual 1 % (0-4); Lymphocytes Percent Manual 26 % (20-40); Metamyelocytes Percent 1 %; Monocytes Percent Manual 20 % (2-11); Neutrophils Percent Manual 40 % (45-73); Nucleated Red Blood Cells 2 /100WBC (0-0); Ovalocytes 1+ (5-14) /OIF; Polychromasia 1+ (0-2) /OIF; Promyelocytes Percent 1 %; RBC Morphology NOTED
[2022-01-04 08:47] LABS: Macrocytosis 1+ (5-14) /OIF; Microcytosis 1+ (5-14) /OIF; Platelet Estimate DECREASED (NORMAL)
[2022-01-04 08:48] LABS: Atypical Lymph Absolute Manual 0.1 x10*3/uL; Lymphocytes Absolute Manual 1.1 X10*3/uL (1.2-4.9); Monocytes Absolute Manual 0.9 X10*3/uL (0.1-1.2); Neutrophils Absolute Manual 2.1 X10*3/uL (2.0-8.3); Platelet Count 94 X10*3/uL (160-400); Platelet Morphology Comment NORM; White Blood Count 4.3 X10*3/uL (4.8-10.8)
[2022-01-04] MEDS: vancomycin HCL 750 MG in 0.9 % Sodium Chloride 250 ML 265 MG IV ×2 (09:47→20:44)
--- NOTE | 2022-01-04 09:58 | PM.PNCARD ---
Subjective Subjective Date of Service: 01/04/22 Principal diagnosis: CHF Interval history: Patient without any significant shortness of breath. Hematocrit has improved significantly after transfusion. Blood pressure is also mole stable at this point in time. Very few PACs with 1 short run of PACs last evening. She denies any palpitations chest tightness or orthopnea. Review of Systems Review of Systems Yes all other systems are reviewed and are negative Physical Exam Vital Signs: Last Vital Signs Temp 98.5 F 01/04/22 07:33 Pulse 83 01/04/22 07:33 Resp 18 01/04/22 07:33 BP 132/64 01/04/22 07:33 Pulse Ox 98 01/04/22 07:33 O2 Del Method 01/04/22 07:33 BMI result Body Mass Index 45.3 Const General: cooperative, comfortable, no acute distress, alert and awake Nutritional Appearance: obese Orientation/consciousness: patient oriented x3 Neck Neck: Yes trachea midline, Yes supple and Yes no JVD Resp Effort & Inspection: normal respiratory effort Auscultation: clear to auscultation bilaterally Cardio Jugular venous distension: no JVD Rate: regular rate Rhythm: regular rhythm Heart sounds: S1 normal heart sound present, S2 normal heart sound present, no click, no gallops and no murmurs GI Auscultation: normal bowel sounds Skin General skin exam: no rashes or lesions noted Neuro General: patient oriented x3 and no focal motor deficits Extrem General: No no clubbing, cyanosis or edema Objective Labs and Meds Result diagrams: 01/04/22 07:39 01/04/22 07:39 Lab results: Laboratory Results - last 24 hr 01/02/22 01/04/22 01/04/22 07:55 07:39 07:39 WBC 4.3 L RBC 3.89 L D Hgb 11.2 L D Hct 34.5 L D MCV 88.7 MCH 28.8 MCHC 32.5 RDW 18.6 H Plt Count 94 L MPV 11.4 Immature Gran % (Auto) Cancelled Neut % (Auto) Cancelled Lymph % (Auto) Cancelled [place] % (Auto) Cancelled Eos % (Auto) Cancelled Baso % (Auto) Cancelled Lymph # (Auto) Cancelled [place] # (Auto) Cancelled Eos # (Auto) Cancelled Baso # (Auto) Cancelled Abs Immat Gran (auto) Cancelled Absolute Neuts (auto) Cancelled Absolute Nucleated RBC 0.050 H Nucleated RBC % (auto) 1.2 H Neutrophils % (Manual) 40 L Band Neutrophils % 9 H Lymphocytes % (Manual) 26 Atypical Lymphs % (Man) 2 Monocytes % (Manual) 20 H Eosinophils % (Manual) 1 Metamyelocytes % 1 Promyelocytes % 1 Abs Neuts (Manual) 2.1 Lymphocytes # (Manual) 1.1 L Atyp Lymphs # (Manual) 0.1 Monocytes # (Manual) 0.9 Nucleated RBCs 2 H Dohle Bodies PRESENT Platelet Estimate DECREASED Plt Morphology Comment NORM RBC Morphology NOTED Polychromasia 1+ (0-2) Microcytosis 1+ (5-14) Macrocytosis 1+ (5-14) Ovalocytes 1+ (5-14) Creatinine 0.75 Estim Creat Clear Calc 93.1 Estimated GFR > 60 Magnesium 1.6 Blood Type A Positive Antibody Screen NEGATIVE Crossmatch See Detail Progress Note: A&P Assessment and plan (1) CHF (congestive heart failure): Status: Acute Assessment and Plan: CHF syndrome, clinically euvolemic at this point time. Will start her on low-dose Lasix 20 mg p.o. daily. Heart failure education to be provided. Etiology of CHF is not clear. However this does not appear to be related LV systolic and diastolic function at this point in time. Can resume a her chemotherapy if needed. Continue to watch for anemia development and could have a component of high output failure due to anemia. Also outpatient sleep study to rule out obstructive sleep apnea. Continue manage blood pressure. Can start on valsartan and metoprolol. (2) Atrial arrhythmia: Status: Acute Assessment and Plan: Atrial arrhythmias which are now more suppressed. Resume metoprolol therapy. Continue watch for blood pressure. At this point time will sign of the case. Thank you for allowing me to partake in her care Time Spent With Patient Time: Total time spent is greater than 50% in coordination of care (as documented) at patient's floor/unit and/or counseling patient: Progress Note: Quality Stroke Does the patient have a stroke diagnosis?: No Procedures Date of Service Date of Service: 01/04/22
--- NOTE | 2022-01-04 12:35 | HO.PM.IMPN ---
Subjective Subjective Date of Service: 01/04/22 Interval History: Markedly improved since yesterday. Up in chair Review of Systems Denies chest pain Denies shortness of breath Denies nausea vomiting diarrhea Denies fever chills Physical Exam Vital Signs: Vital Signs: Last Vital Signs Temp 98.7 F 01/04/22 11:17 Pulse 79 01/04/22 11:17 Resp 18 01/04/22 11:17 BP 126/58 L 01/04/22 11:17 Pulse Ox 98 01/04/22 11:17 O2 Del Method 01/04/22 11:17 BMI result Body Mass Index 45.3 Const: Other: No acute issues Resp: Other: Clear but diminished with scant crackles bilateral bases Cardio: Other: No S4; positive S1-S2; no S3 murmurs rubs gallops GI: Other: Soft nontender nondistended normoactive bowel sounds Objective Data Active Medications Acetaminophen (Acetaminophen 325 Mg Tablet) 650 mg PO Q6H PRN PRN Reason: Pain, Mild (Pain Scale 1-3) Last Admin: 01/03/22 18:07 Dose: 650 mg Documented By: HITESH Albuterol/Ipratropium (Albuterol/Iprat 2.5/0.5mg 3 Ml Ampul.Neb) 3 ml INHALE Q4H PRN PRN Reason: Shortness of Breath/Wheezing Azathioprine (Azathioprine 50 Mg Tablet) 50 mg PO BID [facility] Last Admin: 01/04/22 08:05 Dose: 50 mg Documented By: HITESH Calcium Carbonate/Cholecalciferol (Calcium + Vitamin D 250 Mg Tablet) 500 mg PO DAILY [facility] Last Admin: 01/04/22 08:05 Dose: 500 mg Documented By: HITESH Clonidine HCl (Clonidine Hcl 0.2 Mg Tablet) 0.2 mg PO BEDTIME [facility]; Protocol Last Admin: 01/03/22 22:18 Dose: 0.2 mg Documented By: TANYA Cyanocobalamin (Cyanocobalamin (Vitamin B-12) 1,000 Mcg Tablet) 1,000 mcg PO DAILY [facility] Last Admin: 01/04/22 08:05 Dose: 1,000 mcg Documented By: HITESH Duloxetine HCl (Duloxetine Hcl 60 Mg Capsule.Dr) 60 mg PO BEDTIME [facility] Last Admin: 01/03/22 22:17 Dose: 60 mg Documented By: TANYA Enoxaparin Sodium (Enoxaparin Sodium 40 Mg/0.4 Ml Syringe) 40 mg SUBCUT Q24H [facility] Last Admin: 01/03/22 18:07 Dose: 40 mg Documented By: HITESH Piperacillin Sod/Tazobactam (Sod 4.5 gm/ Sodium Chloride) 100 mls @ 200 mls/hr IV Q6H [facility] Last Infusion: 01/04/22 09:44 Dose: 0 mls/hr Documented By: HITESH Vancomycin HCl 750 mg/ Sodium (Chloride) 265 mls @ 265 mls/hr IV Q12H [facility] Last Infusion: 01/04/22 10:52 Dose: 0 mls/hr Documented By: HITESH Lidocaine/Diphenhydr/Alum/Mg/Simeth (Mag&Al/Sim/Diphenhyd/Lidocaine 10 Ml Oral.Susp) 10 ml PO Q4H PRN; Protocol PRN Reason: Cold Sores Metoprolol Succinate (Metoprolol Succinate Er 50 Mg Tab.Er.24h) 50 mg PO DAILY [facility]; Protocol Last Admin: 01/04/22 08:06 Dose: Not Given Documented By: HITESH Non-Admin Reason: per Dental Scheduler Ondansetron HCl (Ondansetron Hcl 4 Mg/2 Ml Vial) 4 mg IVPUSH Q8H PRN PRN Reason: Nausea and Vomiting Pharmacy Consult (Consult Rx Vancomycin Dosing) 1 each MISCELLANE DAILY PRN PRN Reason: Consult order Potassium Chloride (Potassium Chloride Er 20 Meq Tab.Er.Prt) 20 meq PO BID [facility] Last Admin: 01/04/22 08:05 Dose: 20 meq Documented By: HITESH Sodium Chloride (0.9 % Sodium Chloride Flush 3 Ml Syringe) 3 ml IVFLUSH QSHIFT [facility] Last Admin: 01/04/22 08:05 Dose: 3 ml Documented By: HITESH Valsartan (Valsartan 40 Mg Tablet) 20 mg PO BID [facility]; Protocol Last Admin: 01/04/22 08:06 Dose: Not Given Documented By: HITESH Non-Admin 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: 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 Vitamin D (Cholecalciferol (Vitamin D3) 25 Mcg Tablet) 25 mcg PO DAILY [facility] Last Admin: 01/04/22 08:05 Dose: 25 mcg Documented By: HITESH Labs CBC & Chem 7: 01/04/22 07:39 01/04/22 07:39 Labs: Laboratory Results - last 24 hr 01/02/22 01/04/22 01/04/22 07:55 07:39 07:39 MCV 88.7 MCH 28.8 MCHC 32.5 RDW 18.6 H Plt Count 94 L MPV 11.4 Immature Gran % (Auto) Cancelled Neut % (Auto) Cancelled Lymph % (Auto) Cancelled [place] % (Auto) Cancelled Eos % (Auto) Cancelled Baso % (Auto) Cancelled Lymph # (Auto) Cancelled [place] # (Auto) Cancelled Eos # (Auto) Cancelled Baso # (Auto) Cancelled Abs Immat Gran (auto) Cancelled Absolute Neuts (auto) Cancelled Absolute Nucleated RBC 0.050 H Nucleated RBC % (auto) 1.2 H Neutrophils % (Manual) 40 L Band Neutrophils % 9 H Lymphocytes % (Manual) 26 Atypical Lymphs % (Man) 2 Monocytes % (Manual) 20 H Eosinophils % (Manual) 1 Metamyelocytes % 1 Promyelocytes % 1 Abs Neuts (Manual) 2.1 Lymphocytes # (Manual) 1.1 L Atyp Lymphs # (Manual) 0.1 Monocytes # (Manual) 0.9 Nucleated RBCs 2 H Dohle Bodies PRESENT Platelet Estimate DECREASED Plt Morphology Comment NORM RBC Morphology NOTED Polychromasia 1+ (0-2) Microcytosis 1+ (5-14) Macrocytosis 1+ (5-14) Ovalocytes 1+ (5-14) Estim Creat Clear Calc 93.1 Estimated GFR > 60 Magnesium 1.6 Blood Type A Positive Antibody Screen NEGATIVE Crossmatch See Detail Microbiology Microbiology Results: Microbiology 01/02/22 16:53 Blood Culture - Preliminary Blood - Venous No growth after 24 hours. 01/02/22 16:54 Blood Culture - Preliminary Blood - Venous No growth after 24 hours. 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 Admitted for CHF exacerbation 1.Acute/chronic HFpEF exacerbation - lasix 20mg daily --continue valsartan 20 mg b.i.d. 2 Anemia. (post chemo) -acceptable response to blood products -follow CBC 3. History SVT - continue metoprolol succinate -replete divalents -adjust as clinically indicated 4. HTN - acceptable control on current therapies -adjust as indicated 5..Dermatomyositis - continue prednisone /azathiorpine; - stress-dose hydrocortisone if develops hypotension or critical illness VTE ppx: LMWH Requires continued hospitalization for the following reasons: IV diuresis Quality Stroke Does the patient have a stroke diagnosis?: No VTE Prior VTE?: No VTE Risk Level:: Medical - moderate - high VTE Device Contraindication: N/A - Device Ordered VTE Drug Contraindication: N/A - Med Ordered
[2022-01-04] MEDS: Acetaminophen 325 MG TABLET 650 MG PO (16:45)
[2022-01-04] MEDS: ondansetron HCL 4 MG/2 ML VIAL IVPUSH (16:45)
[2022-01-04] MEDS: Enoxaparin Sodium 40 MG/0.4 ML SYRINGE SUBCUT (19:03)
[2022-01-04 19:59] LABS: Vancomycin Trough 15.3 mcg/mL (10.0-20.0)
[2022-01-04] MEDS: Ketorolac Tromethamine 30 MG/ML VIAL IVPUSH (20:38)
[2022-01-04] MEDS: DULoxetine HCl 60 MG CAPSULE.DR PO (20:39)
[2022-01-04] MEDS: cloNIDine HCL 0.2 MG TABLET PO (20:41)
[2022-01-04 20:47] LABS: CDiff Gene PCR NEGATIVE (Negative)
--- NOTE | 2022-01-05 | ECG_ITS ---
Test Reason : pain Blood Pressure : / mmHG Vent. Rate : 091 BPM Atrial Rate : 091 BPM P-R Int : 134 ms QRS Dur : 070 ms QT Int : 332 ms P-R-T Axes : 038 073 054 degrees QTc Int : 408 ms Sinus rhythm with Premature atrial complexes with Aberrant conduction Low voltage QRS Nonspecific T wave abnormality Abnormal ECG When compared with ECG of 30-DEC-2021 14:08, Premature ventricular complexes are no longer Present Referred By: Bhavani Hu Electronically Signed By:REN SLADE MD
[2022-01-05] MEDS: Piperacillin Sodium/Tazobactam 4.5 GM in 0.9 % Sodium Chloride 100 ML IV ×3 (01:25→13:14)
[2022-01-05 03:09] VITALS: BP 139/73; PULSE 82; RESP 18; TEMP 36.8; O2SAT 97
[2022-01-05 06:47] LABS: Hematocrit 36.1 % (37.0-47.0); Hemoglobin 11.3 g/dl (12.0-16.0); Mean Corpuscular HGB Conc 31.3 g/dl (31.0-35.0); Mean Corpuscular Hemoglobin 28.9 pg (27.0-33.0); Mean Corpuscular Volume 92.3 fL (80.0-98.0); NRBC Pct Auto 0.7 /100WBC (0.0-0.2); Red Blood Count 3.91 X10*6/uL (4.20-5.50); Red Cell Distribution Width 19.9 % (11.0-16.0)
[2022-01-05 06:48] LABS: Platelet Count 99 X10*3/uL (160-400); WBC ABN SCTR FOR CBC 1
[2022-01-05 07:09] LABS: Band Neutrophils Percent 10 % (3-5); Lymphocytes Percent Manual 16 % (20-40); Metamyelocytes Percent 10 %; Monocytes Percent Manual 20 % (2-11); Myelocytes Percent 3 %; Neutrophils Percent Manual 41 % (45-73)
[2022-01-05 07:10] LABS: Macrocytosis 1+ (5-14) /OIF; Microcytosis 1+ (5-14) /OIF; Ovalocytes 1+ (5-14) /OIF; RBC Morphology NOTED
[2022-01-05 07:11] LABS: Dohle Bodies PRESENT; Hypochromasia 1+ (5-14) /OIF; Lymphocytes Absolute Manual 1.1 X10*3/uL (1.2-4.9); Metamyelocytes Absolute 0.7 X10*3/uL; Monocytes Absolute Manual 1.3 X10*3/uL (0.1-1.2); Myelocytes Absolute 0.2 X10*/uL; Neutrophils Absolute Manual 3.4 X10*3/uL (2.0-8.3); Platelet Estimate DECREASED (NORMAL); Platelet Morphology Comment NORMAL; Tear Drop Cells 1+ (0-2) /OIF; White Blood Count 6.7 X10*3/uL (4.8-10.8)
[2022-01-05 07:13] LABS: Creatinine Clr Calc Pharmacy 90.7; Estimated Glomerular Filt Rate > 60
[2022-01-05 07:46] VITALS: BP 137/68; PULSE 80; RESP 20; TEMP 37.2; O2SAT 97
[2022-01-05] MEDS: Cholecalciferol (Vitamin D3) 25 MCG TABLET PO (08:37)
[2022-01-05] MEDS: Calcium + Vitamin D 250 MG TABLET 500 MG PO (08:37)
[2022-01-05] MEDS: Furosemide 20 MG TABLET PO (08:37)
[2022-01-05] MEDS: Potassium Chloride ER 20 MEQ TAB.ER.PRT PO ×2 (08:37→21:20)
[2022-01-05] MEDS: Cyanocobalamin (Vitamin B-12) 1,000 MCG TABLET 1000 MCG PO (08:37)
[2022-01-05] MEDS: azaTHIOprine 50 MG TABLET PO ×2 (08:38→21:20)
[2022-01-05] MEDS: 0.9 % Sodium Chloride Flush 3 ML SYRINGE IVFLUSH ×3 (08:41→21:21)
[2022-01-05] MEDS: vancomycin HCL 750 MG in 0.9 % Sodium Chloride 250 ML 265 MG IV (10:13)
[2022-01-05 11:14] VITALS: BP 125/68; PULSE 80; RESP 20; TEMP 36.9; O2SAT 98
--- NOTE | 2022-01-05 11:59 | MHC.CM.PN ---
Per ROUNDS discussion, Patient is experiencing low grade fevers and is not yet medically cleared for dc. Home is the goal and CM will continue to follow.
--- NOTE | 2022-01-05 13:43 | P.PNIM_ITS ---
Subjective Subjective Date of Service: 01/05/22 Interval History: seen and examined this morning Follow-up for CHF Reporting intermittent lower abdominal pain, some loose stool after eating breathing improved, no cough Review of Systems Review of Systems: Yes all other systems are reviewed and are negative Constitutional Constitutional: Denies chills and Denies fever(s) ENT Ears, Nose, Mouth, and Throat: Denies dizziness Cardiovascular Cardiovascular: Denies chest pain, Denies palpitations and Denies dyspnea Respiratory Respiratory: Denies cough and Denies dyspnea Gastrointestinal Gastrointestinal: Reports abdominal pain, Denies diarrhea, Denies nausea and Denies vomiting Neurologic Neurologic: Denies dizziness Endocrine Endocrine: Denies palpitations Physical Exam Vital Signs: Vital Signs: Last Vital Signs Temp 98.5 F 01/05/22 11:14 Pulse 80 01/05/22 11:14 Resp 20 01/05/22 11:14 BP 125/68 01/05/22 11:14 Pulse Ox 98 01/05/22 11:14 O2 Del Method 01/05/22 11:14 BMI result Body Mass Index 45.3 Const: General: cooperative, comfortable, alert and awake Nutritional Appearance: obese Orientation/consciousness: patient oriented x3 Resp: Effort & Inspection: normal respiratory effort and able to speak in complete sentences Auscultation: clear to auscultation bilaterally Cardio: Rate: regular rate Heart sounds: S1 normal heart sound present and S2 normal heart sound present GI: Inspection: No distended Palpation (GI): Soft to palpation and nontender Neuro: General: patient oriented x3 and CN's II-XI intact bilaterally Extrem: Other: b/l 2+ lower extremity edema Objective Data Active Medications Acetaminophen (Acetaminophen 325 Mg Tablet) 650 mg PO Q6H PRN PRN Reason: Pain, Mild (Pain Scale 1-3) Last Admin: 01/04/22 16:45 Dose: 650 mg Documented By: HITESH Albuterol/Ipratropium (Albuterol/Iprat 2.5/0.5mg 3 Ml Ampul.Neb) 3 ml INHALE Q4H PRN PRN Reason: Shortness of Breath/Wheezing Azathioprine (Azathioprine 50 Mg Tablet) 50 mg PO BID [facility] Last Admin: 01/05/22 08:38 Dose: 50 mg Documented By: SHAHLA Calcium Carbonate/Cholecalciferol (Calcium + Vitamin D 250 Mg Tablet) 500 mg PO DAILY [facility] Last Admin: 01/05/22 08:37 Dose: 500 mg Documented By: SHAHLA Clonidine HCl (Clonidine Hcl 0.2 Mg Tablet) 0.2 mg PO BEDTIME [facility]; Protocol Last Admin: 01/04/22 20:41 Dose: 0.2 mg Documented By: ALBERT Cyanocobalamin (Cyanocobalamin (Vitamin B-12) 1,000 Mcg Tablet) 1,000 mcg PO DAILY [facility] Last Admin: 01/05/22 08:37 Dose: 1,000 mcg Documented By: SHAHLA Duloxetine HCl (Duloxetine Hcl 60 Mg Capsule.Dr) 60 mg PO BEDTIME [facility] Last Admin: 01/04/22 20:39 Dose: 60 mg Documented By: ALBERT Enoxaparin Sodium (Enoxaparin Sodium 40 Mg/0.4 Ml Syringe) 40 mg SUBCUT Q24H [facility] Last Admin: 01/04/22 19:03 Dose: 40 mg Documented By: HITESH Furosemide (Furosemide 20 Mg Tablet) 20 mg PO DAILY [facility]; Protocol Last Admin: 01/05/22 08:37 Dose: 20 mg Documented By: SHAHLA Piperacillin Sod/Tazobactam (Sod 4.5 gm/ Sodium Chloride) 100 mls @ 200 mls/hr IV Q6H [facility] Last Admin: 01/05/22 13:14 Dose: 200 mls/hr Documented By: SHAHLA Vancomycin HCl 750 mg/ Sodium (Chloride) 265 mls @ 265 mls/hr IV Q12H [facility] Last Infusion: 01/05/22 12:26 Dose: 0 mls/hr Documented By: SHAHLA Lidocaine/Diphenhydr/Alum/Mg/Simeth (Mag&Al/Sim/Diphenhyd/Lidocaine 10 Ml Oral.Susp) 10 ml PO Q4H PRN; Protocol PRN Reason: Cold Sores Metoprolol Succinate (Metoprolol Succinate Er 50 Mg Tab.Er.24h) 50 mg PO DAILY [facility]; Protocol Last Admin: 01/05/22 10:18 Dose: Not Given Documented By: SHAHLA Non-Admin Reason: Physician Held Med Ondansetron HCl (Ondansetron Hcl 4 Mg/2 Ml Vial) 4 mg IVPUSH Q8H PRN PRN Reason: Nausea and Vomiting Last Admin: 01/04/22 16:45 Dose: 4 mg Documented By: HITESH Pharmacy Consult (Consult Rx Vancomycin Dosing) 1 each MISCELLANE DAILY PRN PRN Reason: Consult order Potassium Chloride (Potassium Chloride Er 20 Meq Tab.Er.Prt) 20 meq PO BID [facility] Last Admin: 01/05/22 08:37 Dose: 20 meq Documented By: SHAHLA Sodium Chloride (0.9 % Sodium Chloride Flush 3 Ml Syringe) 3 ml IVFLUSH QSHIFT [facility] Last Admin: 01/05/22 08:41 Dose: 3 ml Documented By: SHAHLA Valsartan (Valsartan 40 Mg Tablet) 20 mg PO BID [facility]; Protocol Last Admin: 01/05/22 10:18 Dose: Not Given Documented By: SHAHLA Non-Admin Reason: Physician Held Med Vitamin D (Cholecalciferol (Vitamin D3) 25 Mcg Tablet) 25 mcg PO DAILY [facility] Last Admin: 01/05/22 08:37 Dose: 25 mcg Documented By: SHAHLA Labs CBC & Chem 7: 01/05/22 06:28 01/05/22 06:28 Labs: Laboratory Results - last 24 hr 01/04/22 01/04/22 01/05/22 18:59 19:40 06:28 MCV 92.3 MCH 28.9 MCHC 31.3 RDW 19.9 H Plt Count 99 L MPV 11.0 Immature Gran % (Auto) Cancelled Neut % (Auto) Cancelled Lymph % (Auto) Cancelled [place] % (Auto) Cancelled Eos % (Auto) Cancelled Baso % (Auto) Cancelled Lymph # (Auto) Cancelled [place] # (Auto) Cancelled Eos # (Auto) Cancelled Baso # (Auto) Cancelled Abs Immat Gran (auto) Cancelled Absolute Neuts (auto) Cancelled Absolute Nucleated RBC 0.050 H Nucleated RBC % (auto) 0.7 H Neutrophils % (Manual) 41 L Band Neutrophils % 10 H Lymphocytes % (Manual) 16 L Monocytes % (Manual) 20 H Metamyelocytes % 10 Myelocytes % 3 Abs Neuts (Manual) 3.4 Lymphocytes # (Manual) 1.1 L Monocytes # (Manual) 1.3 H Metamyelocytes # 0.7 Myelocytes # 0.2 Dohle Bodies PRESENT Platelet Estimate DECREASED Plt Morphology Comment NORMAL RBC Morphology NOTED Hypochromasia 1+ (5-14) Microcytosis 1+ (5-14) Macrocytosis 1+ (5-14) Tear Drop Cells 1+ (0-2) Ovalocytes 1+ (5-14) Estim Creat Clear Calc Estimated GFR Vancomycin Trough 15.3 C. difficile Tox B Gene NEGATIVE 01/05/22 06:28 MCV MCH MCHC RDW Plt Count MPV Immature Gran % (Auto) Neut % (Auto) Lymph % (Auto) [place] % (Auto) Eos % (Auto) Baso % (Auto) Lymph # (Auto) [place] # (Auto) Eos # (Auto) Baso # (Auto) Abs Immat Gran (auto) Absolute Neuts (auto) Absolute Nucleated RBC Nucleated RBC % (auto) Neutrophils % (Manual) Band Neutrophils % Lymphocytes % (Manual) Monocytes % (Manual) Metamyelocytes % Myelocytes % Abs Neuts (Manual) Lymphocytes # (Manual) Monocytes # (Manual) Metamyelocytes # Myelocytes # Dohle Bodies Platelet Estimate Plt Morphology Comment RBC Morphology Hypochromasia Microcytosis Macrocytosis Tear Drop Cells Ovalocytes Estim Creat Clear Calc 90.7 Estimated GFR > 60 Vancomycin Trough C. difficile Tox B Gene Microbiology Microbiology Results: Microbiology 01/02/22 16:53 Blood Culture - Preliminary Blood - Venous No growth after 48 hours. 01/02/22 16:54 Blood Culture - Preliminary Blood - Venous No growth after 48 hours. 12/30/21 16:40 Blood Culture - Final Blood - Venous No growth after 5 days. 12/30/21 16:40 Blood Culture - Final Blood - Venous No growth after 5 days. 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 Admitted for CHF exacerbation Acute/chronic HFpEF exacerbation etiology of CHF is not clear. possible high output CHF from anemia. ECHO with preserved EF and normal filling pattern s/p diuresis with IV lasix change to lasix 20mg Abdominal pain states intermittent and occurring after each round of chemo has been tolerating diet Anemia. (post chemo) acceptable response to blood products follow CBC possible UTI was started on broad-spectrum antibiotics with Zosyn and vancomycin given on chemotherapy and having low-grade fever chest x-ray negative, blood cultures have remained negative UA with some bacteria although probably not a good sample. UCx not obtained will change to oral Ceftin History SVT continue metoprolol succinate HTN acceptable control on current therapies Dermatomyositis continue prednisone /azathiorpine; stress-dose hydrocortisone if develops hypotension or critical illness VTE ppx: LMWH attending - dr. aponte Requires continued hospitalization for the following reasons: IV diuresis Quality Stroke Does the patient have a stroke diagnosis?: No VTE Prior VTE?: No VTE Risk Level:: Medical - moderate - high VTE Device Contraindication: N/A - Device Ordered VTE Drug Contraindication: N/A - Med Ordered
[2022-01-05] MEDS: Morphine Sulfate 2 MG/ML CARTRIDGE IVPUSH (13:53)
[2022-01-05 15:21] VITALS: BP 163/74; PULSE 91; RESP 18; TEMP 37.1; O2SAT 98
[2022-01-05] MEDS: Enoxaparin Sodium 40 MG/0.4 ML SYRINGE SUBCUT (18:40)
--- NOTE | 2022-01-05 18:50 | PM.EVENT ---
Event Note Date of Service: 01/05/22 Event Note: Call by a nurse due to self-limiting episode of SVT with premature atrial complexes with heart rate up to 170s patient during the episode felt like chest and neck pressure with no associated shortness of breath, no diaphoresis symptoms resolved without treatment Reviewed patient record it seems that patient had similar episodes in the past, including SVT, short run of V-tach At present patient awake alert Heart rate 90-100 BP stable Will obtain EKG Potassium 4.7 Magnesium 1.6 with goal magnesium above 2 Will give additional dose of metoprolol 25 mg now will discuss further management with Cardiology give magnesium 1 dose.
[2022-01-05 19:12] VITALS: BP 134/90; PULSE 99; RESP 16; TEMP 36.1; O2SAT 99
[2022-01-05] MEDS: Metoprolol Tartrate 25 MG TABLET PO (19:39)
[2022-01-05 19:50] LABS: Vancomycin Random 16.3 mcg/mL (15-20)
[2022-01-05] MEDS: Valsartan 40 MG TABLET 20 MG PO (21:19)
[2022-01-05] MEDS: DULoxetine HCl 60 MG CAPSULE.DR PO (21:20)
[2022-01-05] MEDS: cloNIDine HCL 0.2 MG TABLET PO (21:20)
[2022-01-05 23:33] VITALS: BP 119/59; PULSE 82; RESP 16; TEMP 36.5; O2SAT 98
[2022-01-06 02:59] VITALS: BP 121/71; PULSE 80; RESP 16; TEMP 36.3; O2SAT 96
[2022-01-06 07:18] VITALS: BP 148/78; PULSE 77; RESP 17; TEMP 37.1; O2SAT 97
[2022-01-06 07:33] LABS: Hematocrit 36.3 % (37.0-47.0); Hemoglobin 11.5 g/dl (12.0-16.0); Mean Corpuscular HGB Conc 31.7 g/dl (31.0-35.0); Mean Corpuscular Volume 91.4 fL (80.0-98.0); NRBC Pct Auto 0.2 /100WBC (0.0-0.2); Platelet Count 121 X10*3/uL (160-400); Red Blood Count 3.97 X10*6/uL (4.20-5.50); Red Cell Distribution Width 20.4 % (11.0-16.0)
[2022-01-06 07:48] LABS: Creatinine Clr Calc Pharmacy 107.4; Estimated Glomerular Filt Rate > 60
[2022-01-06 07:50] LABS: WBC ABN SCTR FOR CBC 1
[2022-01-06 08:00] LABS: Band Neutrophils Percent 15 % (3-5); Lymphocytes Percent Manual 11 % (20-40); Metamyelocytes Percent 1 %; Monocytes Percent Manual 10 % (2-11); Neutrophils Percent Manual 63 % (45-73)
[2022-01-06 08:05] LABS: RBC Morphology NOTED
[2022-01-06 08:06] LABS: Dohle Bodies PRESENT; Polychromasia 1+ (0-2) /OIF
[2022-01-06 08:07] LABS: Tear Drop Cells 1+ (0-2) /OIF
[2022-01-06 08:08] LABS: Platelet Estimate SLIGHTLY DECREASED (NORMAL)
[2022-01-06 08:10] LABS: Platelet Morphology Comment NORMAL
[2022-01-06 08:11] LABS: Ovalocytes 1+ (5-14) /OIF
[2022-01-06 08:20] LABS: Lymphocytes Absolute Manual 1.4 X10*3/uL (1.2-4.9); Metamyelocytes Absolute 0.1 X10*3/uL; Monocytes Absolute Manual 1.2 X10*3/uL (0.1-1.2); Neutrophils Absolute Manual 9.7 X10*3/uL (2.0-8.3); White Blood Count 12.4 X10*3/uL (4.8-10.8)
[2022-01-06] MEDS: 0.9 % Sodium Chloride Flush 3 ML SYRINGE IVFLUSH ×2 (09:18→17:42)
[2022-01-06] MEDS: Cyanocobalamin (Vitamin B-12) 1,000 MCG TABLET 1000 MCG PO (09:18)
[2022-01-06] MEDS: Calcium + Vitamin D 250 MG TABLET 500 MG PO (09:18)
[2022-01-06] MEDS: Cholecalciferol (Vitamin D3) 25 MCG TABLET PO (09:19)
[2022-01-06] MEDS: Metoprolol Succinate ER 50 MG TAB.ER.24H PO (09:19)
[2022-01-06] MEDS: Potassium Chloride ER 20 MEQ TAB.ER.PRT PO ×2 (09:19→21:46)
[2022-01-06] MEDS: Valsartan 40 MG TABLET 20 MG PO ×2 (09:19→21:46)
[2022-01-06] MEDS: Furosemide 20 MG TABLET PO (09:19)
[2022-01-06] MEDS: azaTHIOprine 50 MG TABLET PO ×2 (09:21→21:47)
--- NOTE | 2022-01-06 10:32 | P.PNIM_ITS ---
Subjective Subjective Date of Service: 01/06/22 Interval History: Follow-up for CHF Reporting intermittent lower abdominal pain, some loose stool after eating breathing improved, no cough Review of Systems Review of Systems: Yes all other systems are reviewed and are negative Constitutional Constitutional: Denies chills and Denies fever(s) ENT Ears, Nose, Mouth, and Throat: Denies dizziness Cardiovascular Cardiovascular: Denies chest pain, Denies palpitations and Denies dyspnea Respiratory Respiratory: Denies cough and Denies dyspnea Gastrointestinal Gastrointestinal: Reports abdominal pain, Denies diarrhea, Denies nausea and Denies vomiting Neurologic Neurologic: Denies dizziness Endocrine Endocrine: Denies palpitations Physical Exam 2 Vital Signs: Vital Signs: Last Vital Signs Temp 98.8 F 01/06/22 07:18 Pulse 77 01/06/22 07:18 Resp 17 01/06/22 07:18 BP 148/78 H 01/06/22 07:18 Pulse Ox 97 01/06/22 07:18 O2 Del Method 01/06/22 07:18 BMI result Body Mass Index 45.3 Appearing in no acute distress lung sounds are clear to auscultation heart regular rate rhythm, clear S1, S2 positive bowel sounds, abdomen is soft, nontender. obese neuro patient is alert x3, no focal deficits Objective Data Active Medications Acetaminophen (Acetaminophen 325 Mg Tablet) 650 mg PO Q6H PRN PRN Reason: Pain, Mild (Pain Scale 1-3) Last Admin: 01/04/22 16:45 Dose: 650 mg Documented By: HITESH Albuterol/Ipratropium (Albuterol/Iprat 2.5/0.5mg 3 Ml Ampul.Neb) 3 ml INHALE Q4H PRN PRN Reason: Shortness of Breath/Wheezing Azathioprine (Azathioprine 50 Mg Tablet) 50 mg PO BID [facility] Last Admin: 01/06/22 09:21 Dose: 50 mg Documented By: SHAHLA Calcium Carbonate/Cholecalciferol (Calcium + Vitamin D 250 Mg Tablet) 500 mg PO DAILY [facility] Last Admin: 01/06/22 09:18 Dose: 500 mg Documented By: SHAHLA Cefuroxime Axetil (Cefuroxime Axetil 500 Mg Tablet) 500 mg PO BID [facility] Last Admin: 01/06/22 09:19 Dose: 500 mg Documented By: SHAHLA Clonidine HCl (Clonidine Hcl 0.2 Mg Tablet) 0.2 mg PO BEDTIME [facility]; Protocol Last Admin: 01/05/22 21:20 Dose: 0.2 mg Documented By: CAR Cyanocobalamin (Cyanocobalamin (Vitamin B-12) 1,000 Mcg Tablet) 1,000 mcg PO DAILY [facility] Last Admin: 01/06/22 09:18 Dose: 1,000 mcg Documented By: SHAHLA Duloxetine HCl (Duloxetine Hcl 60 Mg Capsule.Dr) 60 mg PO BEDTIME [facility] Last Admin: 01/05/22 21:20 Dose: 60 mg Documented By: CAR Enoxaparin Sodium (Enoxaparin Sodium 40 Mg/0.4 Ml Syringe) 40 mg SUBCUT Q24H [facility] Last Admin: 01/05/22 18:40 Dose: 40 mg Documented By: SHAHLA Furosemide (Furosemide 20 Mg Tablet) 20 mg PO DAILY [facility]; Protocol Last Admin: 01/06/22 09:19 Dose: 20 mg Documented By: SHAHLA Lidocaine/Diphenhydr/Alum/Mg/Simeth (Mag&Al/Sim/Diphenhyd/Lidocaine 10 Ml Oral.Susp) 10 ml PO Q4H PRN; Protocol PRN Reason: Cold Sores Metoprolol Succinate (Metoprolol Succinate Er 50 Mg Tab.Er.24h) 50 mg PO DAILY [facility]; Protocol Last Admin: 01/06/22 09:19 Dose: 50 mg Documented By: SHAHLA Ondansetron HCl (Ondansetron Hcl 4 Mg/2 Ml Vial) 4 mg IVPUSH Q8H PRN PRN Reason: Nausea and Vomiting Last Admin: 01/04/22 16:45 Dose: 4 mg Documented By: HITESH Pharmacy Consult (Consult Rx Vancomycin Dosing) 1 each MISCELLANE DAILY PRN PRN Reason: Consult order Potassium Chloride (Potassium Chloride Er 20 Meq Tab.Er.Prt) 20 meq PO BID [facility] Last Admin: 01/06/22 09:19 Dose: 20 meq Documented By: SHAHLA Sodium Chloride (0.9 % Sodium Chloride Flush 3 Ml Syringe) 3 ml IVFLUSH QSHIFT [facility] Last Admin: 01/06/22 09:18 Dose: 3 ml Documented By: SHAHLA Valsartan (Valsartan 40 Mg Tablet) 20 mg PO BID [facility]; Protocol Last Admin: 01/06/22 09:19 Dose: 20 mg Documented By: SHAHLA Vitamin D (Cholecalciferol (Vitamin D3) 25 Mcg Tablet) 25 mcg PO DAILY [facility] Last Admin: 01/06/22 09:19 Dose: 25 mcg Documented By: SHAHLA Labs CBC & Chem 7: 01/06/22 06:30 01/06/22 06:30 Labs: Laboratory Results - last 24 hr 01/05/22 01/06/22 01/06/22 19:10 06:30 06:30 MCV 91.4 MCH 29.0 MCHC 31.7 RDW 20.4 H Plt Count 121 L MPV 11.0 Immature Gran % (Auto) Cancelled Neut % (Auto) Cancelled Lymph % (Auto) Cancelled [place] % (Auto) Cancelled Eos % (Auto) Cancelled Baso % (Auto) Cancelled Lymph # (Auto) Cancelled [place] # (Auto) Cancelled Eos # (Auto) Cancelled Baso # (Auto) Cancelled Abs Immat Gran (auto) Cancelled Absolute Neuts (auto) Cancelled Absolute Nucleated RBC 0.020 H Nucleated RBC % (auto) 0.2 Neutrophils % (Manual) 63 Band Neutrophils % 15 H Lymphocytes % (Manual) 11 L Monocytes % (Manual) 10 Metamyelocytes % 1 Abs Neuts (Manual) 9.7 H Lymphocytes # (Manual) 1.4 Monocytes # (Manual) 1.2 Metamyelocytes # 0.1 Dohle Bodies PRESENT Platelet Estimate SLIGHTLY DECREASED Plt Morphology Comment NORMAL RBC Morphology NOTED Polychromasia 1+ (0-2) Tear Drop Cells 1+ (0-2) Ovalocytes 1+ (5-14) Estim Creat Clear Calc 107.4 Estimated GFR > 60 Random Vancomycin 16.3 Assessment and Plan (1) Acute on chronic heart failure with preserved ejection fraction (HFpEF): Status: Acute (2) Invasive ductal carcinoma of right breast: Status: Acute Plan 66yo F with 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 Admitted for CHF exacerbation Diarrhea Secondary to chemotherapy Scheduled Imodium C diff negative Acute/chronic HFpEF exacerbation etiology of CHF is not clear. possible high output CHF from anemia. ECHO with preserved EF and normal filling pattern s/p diuresis with IV lasix change to lasix 20mg Abdominal pain states intermittent and occurring after each round of chemo has been tolerating diet Anemia. (post chemo) acceptable response to blood products follow CBC UTI Ceftin History SVT Episode last night metoprolol increased HTN acceptable control on current therapies Dermatomyositis continue prednisone /azathiorpine; stress-dose hydrocortisone if develops hypotension or critical illness Morbid obesity. BMI 45.3 Discussed the importance of weight loss as obesity may contribute to worsening of other comorbid conditions. VTE ppx: LMWH attending - Dr. Conti continue hospitalization for treatment of diarrhea Quality Stroke Does the patient have a stroke diagnosis?: No VTE Prior VTE?: No VTE Risk Level:: Medical - moderate - high VTE Device Contraindication: N/A - Device Ordered VTE Drug Contraindication: N/A - Med Ordered
[2022-01-06 11:15] VITALS: BP 127/67; PULSE 88; RESP 17; TEMP 37.2; O2SAT 99
[2022-01-06] MEDS: Loperamide HCl 2 MG CAPSULE 4 MG PO ×3 (11:27→21:47)
[2022-01-06 15:50] VITALS: BP 129/78; PULSE 85; RESP 16; TEMP 37.2; O2SAT 98
[2022-01-06] MEDS: Heparin Sodium,Porcine Flush 50 UNITS, 0.9 % Sodium Chloride Flush 5 ML IVFLUSH (17:41)
[2022-01-06] MEDS: Enoxaparin Sodium 40 MG/0.4 ML SYRINGE SUBCUT (18:36)
[2022-01-06 19:34] VITALS: BP 144/67; PULSE 92; RESP 18; TEMP 36.1; O2SAT 99
[2022-01-06] MEDS: DULoxetine HCl 60 MG CAPSULE.DR PO (21:46)
[2022-01-06] MEDS: cloNIDine HCL 0.2 MG TABLET PO (21:47)
[2022-01-06 23:52] VITALS: BP 112/52; PULSE 80; RESP 20; TEMP 36.7; O2SAT 97
[2022-01-07] MEDS: Heparin Sodium,Porcine Flush 50 UNITS, 0.9 % Sodium Chloride Flush 5 ML IVFLUSH ×3 (00:49→17:55)
[2022-01-07] MEDS: 0.9 % Sodium Chloride Flush 3 ML SYRINGE IVFLUSH ×4 (00:52→19:47)
[2022-01-07 04:00] VITALS: BP 134/61; PULSE 76; RESP 20; TEMP 36.6; O2SAT 97
[2022-01-07 07:22] LABS: Creatinine Clr Calc Pharmacy 102.7; Estimated Glomerular Filt Rate > 60
[2022-01-07 07:38] VITALS: BP 135/60; PULSE 88; RESP 17; TEMP 37.2; O2SAT 97
[2022-01-07] MEDS: Valsartan 40 MG TABLET 20 MG PO ×2 (09:05→19:46)
[2022-01-07] MEDS: azaTHIOprine 50 MG TABLET PO ×2 (09:05→19:45)
[2022-01-07] MEDS: Potassium Chloride ER 20 MEQ TAB.ER.PRT PO ×2 (09:06→19:44)
[2022-01-07] MEDS: Loperamide HCl 2 MG CAPSULE 4 MG PO ×4 (09:06→19:45)
[2022-01-07] MEDS: Furosemide 20 MG TABLET PO (09:06)
[2022-01-07] MEDS: Metoprolol Succinate ER 50 MG TAB.ER.24H PO (09:06)
[2022-01-07] MEDS: Calcium + Vitamin D 250 MG TABLET 500 MG PO (09:06)
[2022-01-07] MEDS: Cholecalciferol (Vitamin D3) 25 MCG TABLET PO (09:06)
[2022-01-07] MEDS: Cyanocobalamin (Vitamin B-12) 1,000 MCG TABLET 1000 MCG PO (09:06)
--- NOTE | 2022-01-07 09:56 | P.PNIM_ITS ---
Subjective Subjective Date of Service: 01/07/22 Interval History: Follow-up for CHF Reporting intermittent lower abdominal pain, some loose stool after eating breathing improved, no cough Review of Systems Review of Systems: Yes all other systems are reviewed and are negative Constitutional Constitutional: Denies chills and Denies fever(s) ENT Ears, Nose, Mouth, and Throat: Denies dizziness Cardiovascular Cardiovascular: Denies chest pain, Denies palpitations and Denies dyspnea Respiratory Respiratory: Denies cough and Denies dyspnea Gastrointestinal Gastrointestinal: Reports abdominal pain, Denies diarrhea, Denies nausea and Denies vomiting Neurologic Neurologic: Denies dizziness Endocrine Endocrine: Denies palpitations Physical Exam 2 Vital Signs: Vital Signs: Last Vital Signs Temp 98.9 F 01/07/22 07:38 Pulse 88 01/07/22 07:38 Resp 17 01/07/22 07:38 BP 135/60 01/07/22 07:38 Pulse Ox 97 01/07/22 07:38 O2 Del Method 01/07/22 07:38 BMI result Body Mass Index 45.3 Appearing in no acute distress lung sounds are clear to auscultation heart regular rate rhythm, clear S1, S2 positive bowel sounds, abdomen is soft, nontender neuro patient is alert x3, no focal deficits Objective Data Active Medications Acetaminophen (Acetaminophen 325 Mg Tablet) 650 mg PO Q6H PRN PRN Reason: Pain, Mild (Pain Scale 1-3) Last Admin: 01/04/22 16:45 Dose: 650 mg Documented By: HITESH Azathioprine (Azathioprine 50 Mg Tablet) 50 mg PO BID [facility] Last Admin: 01/07/22 09:05 Dose: 50 mg Documented By: SHAHLA Calcium Carbonate/Cholecalciferol (Calcium + Vitamin D 250 Mg Tablet) 500 mg PO DAILY [facility] Last Admin: 01/07/22 09:06 Dose: 500 mg Documented By: SHAHLA Cefuroxime Axetil (Cefuroxime Axetil 500 Mg Tablet) 500 mg PO BID [facility] Last Admin: 01/07/22 09:06 Dose: 500 mg Documented By: SHAHLA Clonidine HCl (Clonidine Hcl 0.2 Mg Tablet) 0.2 mg PO BEDTIME [facility]; Protocol Last Admin: 01/06/22 21:47 Dose: 0.2 mg Documented By: MARIA INES Heparin Sodium (Porcine) 50 (units/ Sodium Chloride 5 ml) 0 units IVFLUSH QSH IFT [facility] Last Admin: 01/07/22 09:07 Dose: 50 unit Documented By: SHAHLA Cyanocobalamin (Cyanocobalamin (Vitamin B-12) 1,000 Mcg Tablet) 1,000 mcg PO DAILY [facility] Last Admin: 01/07/22 09:06 Dose: 1,000 mcg Documented By: SHAHLA Duloxetine HCl (Duloxetine Hcl 60 Mg Capsule.Dr) 60 mg PO BEDTIME [facility] Last Admin: 01/06/22 21:46 Dose: 60 mg Documented By: MARIA INES Enoxaparin Sodium (Enoxaparin Sodium 40 Mg/0.4 Ml Syringe) 40 mg SUBCUT Q24H [facility] Last Admin: 01/06/22 18:36 Dose: 40 mg Documented By: SHAHLA Furosemide (Furosemide 20 Mg Tablet) 20 mg PO DAILY [facility]; Protocol Last Admin: 01/07/22 09:06 Dose: 20 mg Documented By: SHAHLA Lidocaine/Diphenhydr/Alum/Mg/Simeth (Mag&Al/Sim/Diphenhyd/Lidocaine 10 Ml Oral.Susp) 10 ml PO Q4H PRN; Protocol PRN Reason: Cold Sores Loperamide HCl (Loperamide Hcl 2 Mg Capsule) 4 mg PO TID [facility] Last Admin: 01/07/22 09:06 Dose: 4 mg Documented By: SHAHLA Metoprolol Succinate (Metoprolol Succinate Er 50 Mg Tab.Er.24h) 50 mg PO DAILY [facility]; Protocol Last Admin: 01/07/22 09:06 Dose: 50 mg Documented By: SHAHLA Ondansetron HCl (Ondansetron Hcl 4 Mg/2 Ml Vial) 4 mg IVPUSH Q8H PRN PRN Reason: Nausea and Vomiting Last Admin: 01/04/22 16:45 Dose: 4 mg Documented By: HITESH Pharmacy Consult (Consult Rx Vancomycin Dosing) 1 each MISCELLANE DAILY PRN PRN Reason: Consult order Potassium Chloride (Potassium Chloride Er 20 Meq Tab.Er.Prt) 20 meq PO BID [facility] Last Admin: 01/07/22 09:06 Dose: 20 meq Documented By: SHAHLA Sodium Chloride (0.9 % Sodium Chloride Flush 3 Ml Syringe) 3 ml IVFLUSH QSHIFT [facility] Last Admin: 01/07/22 09:07 Dose: 3 ml Documented By: SHAHLA Valsartan (Valsartan 40 Mg Tablet) 20 mg PO BID [facility]; Protocol Last Admin: 01/07/22 09:05 Dose: 20 mg Documented By: SHAHLA Vitamin D (Cholecalciferol (Vitamin D3) 25 Mcg Tablet) 25 mcg PO DAILY [facility] Last Admin: 01/07/22 09:06 Dose: 25 mcg Documented By: SHAHLA Labs CBC & Chem 7: 01/06/22 06:30 01/07/22 06:52 Labs: Laboratory Results - last 24 hr 01/07/22 06:52 Estim Creat Clear Calc 102.7 Estimated GFR > 60 Assessment and Plan (1) Acute on chronic heart failure with preserved ejection fraction (HFpEF): Status: Acute (2) Invasive ductal carcinoma of right breast: Status: Acute Plan 66yo F with 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 Admitted for CHF exacerbation Diarrhea Secondary to chemotherapy Scheduled Imodium QID C diff negative Acute/chronic HFpEF exacerbation. Resolved etiology of CHF is not clear. possible high output CHF from anemia. ECHO with preserved EF and normal filling pattern s/p diuresis with IV lasix change to lasix 20mg Abdominal pain states intermittent and occurring after each round of chemo has been tolerating diet Anemia. (post chemo) acceptable response to blood products follow CBC UTI Ceftin History SVT Episode last night metoprolol increased HTN acceptable control on current therapies Dermatomyositis continue prednisone /azathiorpine; stress-dose hydrocortisone if develops hypotension or critical illness Morbid obesity. BMI 45.3 Discussed the importance of weight loss as obesity may contribute to worsening of other comorbid conditions. VTE ppx: LMWH attending - Dr. Conti continue hospitalization for treatment of diarrhea Quality Stroke Does the patient have a stroke diagnosis?: No VTE Prior VTE?: No VTE Risk Level:: Medical - moderate - high VTE Device Contraindication: N/A - Device Ordered VTE Drug Contraindication: N/A - Med Ordered
[2022-01-07 11:54] VITALS: BP 134/70; PULSE 88; RESP 16; TEMP 37.1; O2SAT 98
[2022-01-07 16:00] VITALS: BP 138/71; PULSE 77; RESP 18; TEMP 37.2; O2SAT 96
--- NOTE | 2022-01-07 18:27 | PC.NURSE ---
at approx 1815, pt had a sustained run of what appeared to be vtach. heart rate was approx 150-160. pt has had previous runs of SVT of a much shorter duration. Pt also has occasional PACs and PVCs. pt stated they felt like it was a hot flash and gas you can't get rid of. this rn texted [facility] gilbert and dr. amaya. upon review of the current monitor readout and strips from the event, it was determined that the rhythm was most likely svt. dr amaya suggested vagal manuvers and a dose of metoprolol. labs were also ordered to check on electrolyte levels.
--- NOTE | 2022-01-07 18:38 | PM.EVENT ---
Event Note Date of Service: 01/07/22 Event Note: had another episode of SVT, broke with vagal maneuvers will give extra dose of lopressor 25mg and check electrolytes
[2022-01-07] MEDS: Metoprolol Tartrate 25 MG TABLET PO (18:45)
[2022-01-07 19:41] LABS: Anion Gap 14 (12-20); Blood Urea Nitrogen 6 mg/dL (9-16); Calcium 8.5 mg/dL (8.4-10.2); Carbon Dioxide 19 mmol/L (22-29); Chloride 108 mmol/L (96-108); Creatinine Clr Calc Pharmacy 101.2; Estimated Glomerular Filt Rate > 60; Glucose Random 108 mg/dL (60-115); Magnesium 1.5 mg/dL (1.6-2.6); Potassium 3.9 mmol/L (3.3-5.1); Sodium 137 mmol/L (135-145)
[2022-01-07] MEDS: Enoxaparin Sodium 40 MG/0.4 ML SYRINGE SUBCUT (19:43)
[2022-01-07] MEDS: DULoxetine HCl 60 MG CAPSULE.DR PO (19:44)
[2022-01-07] MEDS: cloNIDine HCL 0.2 MG TABLET PO (19:45)
[2022-01-07 19:48] VITALS: BP 160/73; PULSE 70; RESP 18; TEMP 36.9; O2SAT 96
[2022-01-07 23:23] VITALS: BP 144/70; PULSE 82; RESP 16; TEMP 36.2; O2SAT 97
[2022-01-08] MEDS: Heparin Sodium,Porcine Flush 50 UNITS, 0.9 % Sodium Chloride Flush 5 ML IVFLUSH ×3 (01:30→14:19)
[2022-01-08] MEDS: Magnesium Sulfate/H2O 2 GM/50 ML PIGGYBACK IV (02:54)
[2022-01-08] MEDS: Potassium Chloride Packet 20 MEQ PACKET 40 MEQ PO (03:00)
[2022-01-08 03:32] VITALS: BP 102/54; PULSE 74; RESP 16; TEMP 36.7; O2SAT 97
[2022-01-08 07:12] LABS: Creatinine Clr Calc Pharmacy 109.1; Estimated Glomerular Filt Rate > 60
[2022-01-08 07:54] VITALS: BP 117/62; PULSE 75; RESP 16; TEMP 37.3; O2SAT 97
[2022-01-08] MEDS: azaTHIOprine 50 MG TABLET PO (09:23)
[2022-01-08] MEDS: Valsartan 40 MG TABLET 20 MG PO (09:24)
[2022-01-08] MEDS: 0.9 % Sodium Chloride Flush 3 ML SYRINGE IVFLUSH (09:24)
[2022-01-08] MEDS: Calcium + Vitamin D 250 MG TABLET 500 MG PO (09:25)
[2022-01-08] MEDS: Cyanocobalamin (Vitamin B-12) 1,000 MCG TABLET 1000 MCG PO (09:25)
[2022-01-08] MEDS: Furosemide 20 MG TABLET PO (09:25)
[2022-01-08] MEDS: Loperamide HCl 2 MG CAPSULE 4 MG PO ×2 (09:25→13:45)
[2022-01-08] MEDS: Potassium Chloride ER 20 MEQ TAB.ER.PRT PO (09:25)
[2022-01-08] MEDS: Metoprolol Succinate ER 50 MG TAB.ER.24H PO (09:25)
[2022-01-08] MEDS: Cholecalciferol (Vitamin D3) 25 MCG TABLET PO (09:25)
[2022-01-08] MEDS: Digoxin 0.25 MG TABLET PO (09:32)
[2022-01-08 11:33] VITALS: BP 138/70; PULSE 85; RESP 18; TEMP 36.4; O2SAT 97
--- NOTE | 2022-01-08 12:44 | P.DS_ITS ---
DS: Providers Provider Date of Service: 01/08/22 Date of admission: 12/29/21 18:16 Primary care physician: Panda Felix MD Consults: 12/29/21 17:48 Consult to Cardiology Routine Consulting Provider: Robb Jean-Baptiste Reason for consultation: hfpef 01/02/22 15:43 Consult to Gastroenterology Stat Consulting Provider: Tere Alonso Reason for consultation: anemia w/Hx hematochezia Has provider been notified: No 01/02/22 15:44 Consult to Hematology / Oncology Stat Consulting Provider: Patrick Hernández Reason for consultation: Pancytopenia Has provider been notified: Yes Attending physician on discharge: Omero Castillo Discharging clinician: Bhavani Hu DS: Diagnosis Discharge Diagnosis (1) Acute on chronic heart failure with preserved ejection fraction (HFpEF): Status: Acute (2) Invasive ductal carcinoma of right breast: Status: Acute DS: Summary Hospital Course Hospital Course: 66yo F with invasive DCIS of right breast s/p lumpectomy who started carboplatin/docetaxel/trastuzumab/pertuzumab on 11/16/21 and got her 3rd cycle yesterday. Her onc[place] is Dr Hernán[place] [facility] [place] Recent admissions 11/23- 11/27/21 for SVT and colitis, again 12/24-12/19/21 for colitis.? 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 She was on 90 mg of prednisone in June and is currently on 40 mg.? She presents today with worsening exertional dyspnea for the past week.? She complains of orthopnea and leg swelling and was just prescri bed furosemide yesterday.? An echocardiogram done on 12/27/21 as an outpatient demonstrated normal LVEF and grade 2 diastolic dysfunction. She notes that at the beginning of chemotherapy, she weighed 99 kg; currently, she weighs 116 kg. ? No chest pain.? She does have a history of asthma but is not wheezing. In the ED, she was given IV furosemide and placed on CPAP of 8 cm H2O @ 35% fiO2.? Currently she is breathing comfortably.? Bilateral leg Dopplers are pending.? BNP is 149 and high-sensitivity troponin-I 25.? EKG with sinus tachycardia.? She is not neutropenic. Diarrhea Secondary to chemotherapy Scheduled Imodium QID C diff negative Acute/chronic HFpEF exacerbation. Resolved etiology of CHF is not clear. possible high output CHF from anemia.? ECHO with preserved EF and normal filling pattern s/p diuresis with IV lasix change to lasix 20mg daily Abdominal pain states intermittent and occurring after each round of chemo has been tolerating diet Anemia.? (post chemo) acceptable response to blood products UTI Ceftin completed History SVT metoprolol increased, digoxin added f/u with cardiology for possible holter monitor HTN Valsartan, lisinopril, metoprolol Dermatomyositis continue prednisone /azathiorpine Morbid obesity.? BMI 45.3 Discussed the importance of weight loss as obesity may contribute to worsening of other comorbid conditions. Time Spent with Patient Time attestation: Total time spent providing and/or coordinating discharge services: Discharge coordination time: Greater than 30 minutes Quality: Safe Use of Opioids Does Pt have an Active Cancer Diagnosis on the Problem List?: No Quality: Stroke Does the patient have a stroke diagnosis?: No Physical Exam Vital Signs: Vital Signs: Last Vital Signs Temp 97.6 F 01/08/22 11:33 Pulse 85 01/08/22 11:33 Resp 18 01/08/22 11:33 BP 138/70 01/08/22 11:33 Pulse Ox 97 01/08/22 11:33 O2 Del Method 01/08/22 11:33 BMI result Body Mass Index 45.3 Appearing in no acute distress head is normocephalic atraumatic eyes pupils are PERRLA sclera is anicteric mouth throat mucous membranes are intact and moist neck is supple no lymphadenopathy, no JVD noted lung sounds are clear to auscultation heart regular rate rhythm, clear S1, S2 positive bowel sounds, abdomen is soft, nontender neuro patient is alert x3, no focal deficits DS: Data Data Completed and Pending Completed studies during hospitalization [Text1]: Procedures Excision of Descending Colon, Via Natural or Artificial Opening Endoscopic, Diagnostic (11/23/21) Transfusion of Nonautologous Red Blood Cells into Peripheral Vein, Percutaneous Approach (12/14/21) Labs on day of discharge: Laboratory Results - last 24 hr 01/07/22 01/08/22 19:01 06:21 Sodium 137 Potassium 3.9 Chloride 108 Carbon Dioxide 19 L Anion Gap 14 BUN 6 L Creatinine 0.69 0.64 Estim Creat Clear Calc 101.2 109.1 Estimated GFR > 60 > 60 Random Glucose 108 Calcium 8.5 D Magnesium 1.5 L 2.0 Discharge Plan Discharge Anticipated Discharge Date/Time: 01/08/22 12:25 Patient Disposition: Home, Self-Care Discharge Diagnosis: Diarrhea Acute on chronic heart failure with preserved ejection fraction Anemia UTI SVT Referrals: Panda Felix MD [Primary Care Provider] - 1 Week Josias Hameed MD [Physician] - 1 Week (SVT ) Discharge Medications: New digoxin 250 mcg (0.25 mg) Tablet 0.25 mg PO DAILY Qty: 30 0RF valsartan 40 mg Tablet 20 mg PO BID Qty: 30 0RF Protocol: Hold for SBP< HOLD for SBP < : 90 Continued duloxetine 60 mg capsule,delayed release(DR/EC) 60 mg PO BEDTIME Qty: 90 1RF clonidine HCl 0.2 mg tablet 0.2 mg PO BEDTIME Qty: 90 1RF Gammagard S-D (IgA < 1 mcg/mL) 10 gram recon soln 45 g IV DAILY Qty: 1 4RF Rx Instructions: for 2 consecutive days every 30 days cyanocobalamin (vitamin B-12) 1,000 mcg capsule 1,000 mcg PO BEDTIME prednisone 10 mg tablet 40 mg PO DAILY lisinopril 20 mg Tablet 20 mg PO DAILY azathioprine 50 mg Tablet 50 mg PO BID hydrochlorothiazide 12.5 mg Tablet 12.5 mg PO DAILY betamethasone dipropionate 0.05 % lotion 1 appl topical BID Rx Instructions: for 2 weeks as needed for scalp diphenhydramine HCl [Benadryl] 25 mg capsule 25 mg PO TID PRN (Reason: itching) Qty: 14 0RF furosemide [Lasix] 20 mg Tablet 20 mg PO DAILY Qty: 30 4RF cholecalciferol (vitamin D3) 25 mcg (1,000 unit) Tablet 25 mcg PO DAILY metoprolol succinate 50 mg Tablet Extended Release 24 Hr 50 mg PO DAILY Qty: 30 0RF Protocol: Hold for SBP/HR < HOLD for SBP < : 90 HOLD for HR < : 60 alendronate 70 mg tablet 70 mg PO FR@0600 loperamide 2 mg Capsule 2 mg PO Q4H PRN (Reason: Diarrhea) Qty: 24 0RF hydrocortisone [Proctozone-HC] 2.5 % Cream With Perineal Applicator 1 appl MT BID Qty: 30 0RF potassium chloride 20 mEq tablet,ER particles/crystals 20 meq PO DAILY Qty: 2 0RF ketoconazole 2 % shampoo 1 appl topical 2XW calcium carbonate-vitamin D3 600 mg-10 mcg (400 unit) tablet 1 tab PO DAILY ondansetron 8 mg tablet,disintegrating 8 mg PO Q8H PRN (Reason: Nausea) Discharge Orders: Discharge Order (Routine); Ordered 01/08/22 Ordered By: Bhavani Hu Diet: Advance to usual diet Activity on Discharge: As tolerated Stand Alone Forms: Patient Portal Discharge page Care Plan Goals: Complete resolution of symptoms Health Concerns: Diarrhea Acute on chronic heart failure with preserved ejection fraction Anemia UTI SVT Plan of Treatment: Follow-up with primary care provider as needed Follow-up with Cardiology for possible Holter monitor placement secondary to SVT Assessment: see discharge summary
--- NOTE | 2022-01-08 12:45 | MHC.CM.PN ---
Patient has been medically cleared for dc to home today, self care.
== END 2022-01-08 15:49 | disposition home or self-care (01) | DRG 194 ==
LOC: HO.ED 17:38 → HO.EDOVER 18:22 → HO.IMC 12-31 18:23
PROVIDERS: Hospitalist; Internal Medicine; Physician Assistant; Admitting Provider Family Medicine; Emergency Provider Emergency Medicine; PCP Internal Medicine Rheumatology; Visit Provider Nurse Practitioner Acute Care
DX: I11.0 Hypertensive heart disease with heart failure (principal); J96.01 Acute respiratory failure with hypoxia; D61.810 Antineoplastic chemotherapy induced pancytopenia; M36.0 Dermato(poly)myositis in neoplastic disease; I95.9 Hypotension, unspecified; K52.1 Toxic gastroenteritis and colitis; E66.2 Morbid (severe) obesity with alveolar hypoventilation; D05.11 Intraductal carcinoma in situ of right breast; Z20.822 Contact with and (suspected) exposure to COVID-19; Z23 Encounter for immunization; D63.0 Anemia in neoplastic disease; T45.1X5A Adverse effect of antineoplastic and immunosuppressive drugs, initial encounter; Z68.42 Body mass index [BMI] 45.0-49.9, adult; N39.0 Urinary tract infection, site not specified; I47.1 Supraventricular tachycardia; E87.6 Hypokalemia; F32.A Depression, unspecified; E53.8 Deficiency of other specified B group vitamins; I50.33 Acute on chronic diastolic (congestive) heart failure; Z79.52 Long term (current) use of systemic steroids; Z87.891 Personal history of nicotine dependence; Z98.1 Arthrodesis status; Z98.84 Bariatric surgery status; Z79.899 Other long term (current) drug therapy
CPT/HCPCS: 36415; 71045; 80048; 80053; 80076; 80202; 81001; 82550; 82565; 82803; 83735; 83880; 84145; 84484; 85007; 85025; 85027; 86850; 86900; 86901; 86923; 87040; 87493; 87502; 87635; 90686; 93005; 93308; 93356; 93970; 94640; 94660; 99285; J1160; J1642; J1650; J1885; J1940; J2270; J2405; J2543; J2997; J3370; J3475; P9016; P9047; Q9957

== ENCOUNTER → 2022-01-11 08:46 | Outpatient (REF) | payer MEDICARE, MEDICAID, OTHER, SELFPAY ==
--- NOTE | ~2022-01-11 | NM_ITS ---
Myocardial perfusion study Indication: Chest pain to evaluate for myocardial ischemia Technique: The patient was brought in for a Lexiscan perfusion study on 01/11/2022. Patient performed low-level exercise and was injected 0.4 mg of Lexiscan intravenously. Within a minute of injection, 35 mCi of sestamibi was given intravenously. Images were obtained using the SPECT gamma camera interlaced with the gating device. Images were obtained in supine position. Resting perfusion study was performed on 01/12/2022. Patient was administered 35 mCi of sestamibi intravenously at rest. Images were then obtained in supine position. Images obtained with and without CT attenuation. Total DLP 128 mGy-cm. Images were processed with the software and compared side to side in short axis, horizontal long axis and vertical long axis views. Findings: The stress perfusion study showed non attenuated images show normal uptake of radiotracer in all segments of LV myocardium. There is suggestion all left-sided hypertrophy. Attenuation corrected images show mildly reduced uptake in the septum and the apex of the LV myocardium.. The gated study shows normal LV systolic function with calculated LVEF of 73%. LV cavity is normal size. The gated study shows normal systolic wall thickening and contraction of segments. Resting study shows no change in perfusion pattern compared to stress perfusion study. Gating at rest reveals normal systolic wall motion with ejection fraction at 71%. The findings are consistent with normal myocardial perfusion. NM/NM lazaro perf SPECT rest & str Impression: 1. Myocardial perfusion imaging study shows normal myocardial perfusion 2. Gated LVEF is 71% 3. Transient ischemic dilatation not present EKG is nondiagnostic for ischemia
--- NOTE | 2022-01-11 08:51 | CA_ITS ---
Acquisition Time: 2022-01-11 09:06:12 Total Exercise Time: 00:02:00 Test Indications: Abnormal ECG Medications: SEE DISCHARGE SUMMARY Protocol: LEXISCAN Max HR: 101 BPM 64% of Pred: 156 BPM Max BP: 114/060 mmHG Max Work Load: 1.0 METS Pharmacological stress test with Lexiscan injection, while sitting and kicking her legs, without anginal symptoms, with isolated PACs, atrial cuplets, isolated PVCs, with normotensive response to injection, with nondiagnostic EKG for ischemia. In recovery, she reported nausea and was treated with Aminophylline 75mg IVP to reverse Lexiscan with improvement in symptom. Nuclear images pending. Test reviewed with Dr Taveras. Note on arrival to stress lab her BP was low at 86/70, asymptomatic. She was treated with IV Normal saline 250cc over next hour with improvement in BP prior to start of test. Referred By: Josias Hameed Overread By: MATT CONNER
== END ==
LOC: HO.CARD 08:46
PROVIDERS: Visit Provider Internal Medicine Cardiovascular Disease
DX: R07.9 Chest pain, unspecified (principal); I47.1 Supraventricular tachycardia
CPT/HCPCS: 78452; 93017; A9500; J0280; J2785

== ENCOUNTER → 2022-01-22 13:56 | Outpatient (BNVA) | payer MEDICARE, MEDICAID, SELFPAY | PROVIDERS: PCP Nurse Practitioner Family; Visit Provider Internal Medicine Cardiovascular Disease | DX: I50.9 Heart failure, unspecified (principal); I49.8 Other specified cardiac arrhythmias | CPT/HCPCS: 36415; 80053; 80162; 83880; 85007; 85027; 99212 ==

== ENCOUNTER 2022-01-22 14:36 | Outpatient (REF) | payer MEDICARE, OTHER, SELFPAY ==
[2022-01-22 15:16] LABS: Mean Corpuscular Volume 91.4 fL (80.0-98.0); PLT CLUMP 1
[2022-01-22 15:18] LABS: Hematocrit 30.8 % (37.0-47.0); Hemoglobin 9.9 g/dl (12.0-16.0); Mean Corpuscular HGB Conc 32.1 g/dl (31.0-35.0); Mean Corpuscular Hemoglobin 29.4 pg (27.0-33.0); Red Blood Count 3.37 X10*6/uL (4.20-5.50); Red Cell Distribution Width 19.6 % (11.0-16.0)
[2022-01-22 15:34] LABS: White Blood Count 6.1 X10*3/uL (4.8-10.8)
[2022-01-22 15:45] LABS: Alanine Aminotransferase 26 U/L (0-31); Albumin Level 3.2 g/dL (3.5-5.0); Alkaline Phosphatase 102 U/L (39-117); Anion Gap 17 (12-20); Aspartate Amino Transferase 49 U/L (5-31); Bilirubin Total 1.2 mg/dL (0.0-1.0); Blood Urea Nitrogen 13 mg/dL (9-16); Calcium 7.5 mg/dL (8.4-10.2); Carbon Dioxide 30 mmol/L (22-29); Chloride 94 mmol/L (96-108); Estimated Glomerular Filt Rate > 60; Glucose Random 108 mg/dL (60-115); Potassium 2.6 mmol/L (3.3-5.1); Sodium 138 mmol/L (135-145); Total Protein 5.5 g/dL (6.5-8.0)
[2022-01-22 15:49] LABS: B Type Natriuretic Peptide 97 pg/mL (<100); Digoxin 0.8 ng/mL (0.8-2.0)
[2022-01-22 19:01] LABS: Band Neutrophils Percent 5 % (3-5); Lymphocytes Absolute Manual 0.6 X10*3/uL (1.2-4.9); Lymphocytes Percent Manual 10 % (20-40); Monocytes Absolute Manual 0.1 X10*3/uL (0.1-1.2); Monocytes Percent Manual 2 % (2-11); Neutrophils Absolute Manual 5.4 X10*3/uL (2.0-8.3); Neutrophils Percent Manual 83 % (45-73); RBC Morphology NOTED
[2022-01-22 19:02] LABS: Macrocytosis 1+ (5-14) /OIF; Microcytosis 1+ (5-14) /OIF; Platelet Estimate DECREASED (NORMAL); Platelet Morphology Comment NORMAL
[2022-01-22 19:03] LABS: Hypochromasia 2+ (15-30) /OIF; Tear Drop Cells 2+ (3-5) /OIF; Toxic Granulation PRESENT
[2022-01-22 19:04] LABS: Mean Platelet Volume 10.7 fL (9.4-12.3); Platelet Count 94 X10*3/uL (160-400)
== END 2022-01-22 14:37 | disposition home or self-care (01) ==
LOC: HO.LAB 14:36
PROVIDERS: Internal Medicine Medical Oncology; PCP Nurse Practitioner Family; Visit Provider Internal Medicine Cardiovascular Disease
DX: Z13.89 Encounter for screening for other disorder (principal)
CPT/HCPCS: 36415; 80053; 80162; 83880; 85007; 85025; 85027

== ENCOUNTER 2022-01-23 10:46 | Outpatient (REF) | payer MEDICARE, MEDICAID, OTHER, SELFPAY ==
[2022-01-23 12:15] LABS: Hematocrit 29.1 % (37.0-47.0); Hemoglobin 9.6 g/dl (12.0-16.0); Mean Corpuscular Hemoglobin 29.9 pg (27.0-33.0); Mean Corpuscular Volume 90.7 fL (80.0-98.0); Mean Platelet Volume 10.8 fL (9.4-12.3); Red Blood Count 3.21 X10*6/uL (4.20-5.50); Red Cell Distribution Width 19.1 % (11.0-16.0)
[2022-01-23 12:17] LABS: Platelet Count 84 X10*3/uL (160-400); White Blood Count 2.1 X10*3/uL (4.8-10.8)
[2022-01-23 12:40] LABS: Band Neutrophils Percent 14 % (3-5); Lymphocytes Absolute Manual 0.4 X10*3/uL (1.2-4.9); Lymphocytes Percent Manual 20 % (20-40); Monocytes Absolute Manual 0.2 X10*3/uL (0.1-1.2); Monocytes Percent Manual 8 % (2-11); Neutrophils Absolute Manual 1.5 X10*3/uL (2.0-8.3); Neutrophils Percent Manual 58 % (45-73); Nucleated Red Blood Cells 3 /100WBC (0-0)
[2022-01-23 12:44] LABS: Macrocytosis 1+ (5-14) /OIF; Ovalocytes 1+ (5-14) /OIF; Platelet Estimate DECREASED (NORMAL); Platelet Morphology Comment NORMAL; RBC Morphology NOTED; Tear Drop Cells 1+ (0-2) /OIF
[2022-01-23 13:31] LABS: Alanine Aminotransferase 24 U/L (0-31); Albumin Level 3.1 g/dL (3.5-5.0); Alkaline Phosphatase 92 U/L (39-117); Anion Gap 13 (12-20); Aspartate Amino Transferase 46 U/L (5-31); Bilirubin Total 1.1 mg/dL (0.0-1.0); Blood Urea Nitrogen 11 mg/dL (9-16); Calcium 7.7 mg/dL (8.4-10.2); Carbon Dioxide 32 mmol/L (22-29); Chloride 98 mmol/L (96-108); Estimated Glomerular Filt Rate > 60; Glucose Random 141 mg/dL (60-115); Magnesium 1.4 mg/dL (1.6-2.6); Potassium 2.6 mmol/L (3.3-5.1); Sodium 140 mmol/L (135-145); Total Protein 5.4 g/dL (6.5-8.0)
== END 2022-01-23 10:47 | disposition home or self-care (01) ==
LOC: HO.MDS 10:46
PROVIDERS: Internal Medicine Medical Oncology; Visit Provider Internal Medicine Rheumatology
DX: Z45.2 Encounter for adjustment and management of vascular access device (principal); M33.90 Dermatopolymyositis, unspecified, organ involvement unspecified
CPT/HCPCS: 36415; 80053; 83735; 85007; 85027; 96365; 96366; 96375; J1569; J1642; J3475

== ENCOUNTER 2022-01-24 11:08 | Outpatient (REF) | payer MEDICARE, OTHER, SELFPAY ==
[2022-01-24 12:39] LABS: Anion Gap 14 (12-20); Blood Urea Nitrogen 11 mg/dL (9-16); Calcium 7.9 mg/dL (8.4-10.2); Carbon Dioxide 30 mmol/L (22-29); Chloride 97 mmol/L (96-108); Estimated Glomerular Filt Rate > 60; Glucose Random 128 mg/dL (60-115); Potassium 2.7 mmol/L (3.3-5.1); Sodium 138 mmol/L (135-145)
== END 2022-01-24 11:09 | disposition home or self-care (01) ==
LOC: HO.MDS 11:08
PROVIDERS: Visit Provider Internal Medicine Rheumatology
DX: Z45.2 Encounter for adjustment and management of vascular access device (principal); M33.90 Dermatopolymyositis, unspecified, organ involvement unspecified
CPT/HCPCS: 36415; 80048; 82550; 96365; 96366; J1569; J1642

== ENCOUNTER → 2022-01-26 08:30 | Outpatient (REF) | payer MEDICARE, OTHER, SELFPAY ==
--- NOTE | 2022-01-26 08:32 | CA_ITS ---
Transthoracic Echocardiogram Patient (Last, First, Middle): Kate Almaguer, Gender: Female Date of : 1955 Age: 67 Procedure Date: 01/26/2022 Procedure Type: Transthoracic Echocardiogram Location: OP Height: 160.02 cm Weight: 90.72 kg BSA: 1.93 m2 Heart Rate: 80 bpm BP: 110 / 65 mmHg Dog Bather: MERLYN Referring MD: Patrick Hernández MD Range Mechanic: Josias Hameed MD Symptoms: F/U for breast cancer, assess LV function Study Quality: Adequate ECG Rhythm: Sinus with extra beats Conclusions: - Normal LV systolic function Findings Left Ventricle Normal left ventricular size, thickness, and systolic function. The visually estimated ejection fraction is between 65-70%. Peak GLS is -20.2%, within normal limits. Prior Study Comparison No significant change compared to prior study dated: 01/01/2022. Measurements 2D Linear Measurements IVSd: 0.87 0.6-0.9/0.6-1.0 cm LVIDd: 4.53 3.9-5.3/4.2-5.9 cm LVIDd Index: 2.35 2.4-3.2/2.2-3.1 cm/m2 LVIDs: 2.53 2.0-3.6 cm LVPWd: 1.05 0.7-1.1 cm LV Mass: 182.26 67-162/88-224 g LV Mass Index: 94.44 43-95/49-115 g/m2 LVOT Diam: 1.80 3.0+(-)1.3 cm 2D Systolic Function EF 4C: 72.80 >55% EF 2C: 68.90 >55% EF BiP: 71.80 >55% LVOT LVOT Pk Taras: 1.55 LVOT Mn Taras: 0.96 LVOT VTI: 0.28 LVOT Pk Grad: 10.00 LVOT Mn Grad: 4.00 LVOT Diam: 1.80 LVOT Area: 2.54 Updated in Other Vendor System with Status of Final Josias Hameed MD electronically signed on 01/27/2022 1:28:26 PM with status of Final
== END ==
LOC: HO.CARD 08:30
PROVIDERS: Visit Provider Internal Medicine Medical Oncology
DX: C50.919 Malignant neoplasm of unspecified site of unspecified female breast (principal)
CPT/HCPCS: 93308; 93356

== ENCOUNTER → 2022-01-30 10:23 | Outpatient (REF) | payer MEDICARE, OTHER, MEDICAID, SELFPAY | LOC: HO.SL 10:23 | PROVIDERS: PCP Nurse Practitioner Family; Visit Provider Internal Medicine Cardiovascular Disease | DX: E87.6 Hypokalemia (principal); R19.7 Diarrhea, unspecified; M85.80 Other specified disorders of bone density and structure, unspecified site; M33.90 Dermatopolymyositis, unspecified, organ involvement unspecified; Z79.899 Other long term (current) drug therapy | CPT/HCPCS: 99212 ==

== ENCOUNTER → 2022-01-31 10:49 | Outpatient (REF) | payer MEDICARE, OTHER, SELFPAY ==
--- NOTE | 2022-01-31 10:52 | HM_ITS ---
Conclusion: 1. Patient was monitored for total period of 2 days and 23 hours 2. Baseline was normal sinus rhythm with average heart of 83 beats per minute 3. No significant pauses noted 4. Total of 25,624 PACs accounting for 7.55% total beats account for frequent PACs 5. Frequent short runs of SVE , 3-4 beats with fastest 149 beats per minute 6. Total of 1571 PVCs accounting for 0.5% total beats account for occasional PVCs 7. No patient reported events MTDD
== END ==
LOC: HO.CARD 10:49
PROVIDERS: Visit Provider Internal Medicine Cardiovascular Disease
DX: I49.8 Other specified cardiac arrhythmias (principal)
CPT/HCPCS: 93242

== ENCOUNTER 2022-02-03 22:32 | Inpatient (IN) | payer MEDICARE, OTHER, SELFPAY ==
--- NOTE | ~2022-02-03 | CT_ITS ---
EXAMINATION: CT ABDOMEN AND PELVIS WITHOUT CONTRAST CLINICAL INFORMATION: Fever and upper abdominal pain COMPARISON: CT abdomen pelvis December 14, 2021 and CTA chest December 14, 2021 TECHNIQUE: Multidetector volumetric imaging was performed from the superior aspect of the liver through the pubic symphysis. Sagittal and coronal reformatted images were obtained on the technologist's workstation. This CT examination was performed using dose optimization techniques as appropriate, variously including the following: *Automated exposure control *Adjustment of mA and/or kV according to patient size (this includes techniques or standardized protocols for targeted exams where dose is matched to indication/reason for exam; i.e. extremities or head) *Use of iterative reconstruction technique DLP: 702 mGy-cm FINDINGS: Visualized lung bases demonstrate mild dependent atelectasis. There is asymmetric soft tissue thickening of the right breast with suspected postsurgical changes including a small fluid collection. The liver is enlarged and demonstrates diffusely decreased attenuation. The gallbladder is again not visualized and presumed to be surgically absent. There is fatty atrophy of the pancreas. The spleen remains mildly enlarged. Unremarkable left adrenal gland. Similar small adenoma of the right adrenal gland. Symmetrically sized kidneys. No renal calculi or hydronephrosis of either kidney. Surgical changes of the stomach consistent with gastric bypass again noted. Normal caliber loops of small and large bowel. Stable small fat-containing umbilical hernia. Normal caliber abdominal aorta demonstrating mild to moderate atherosclerotic disease. The bladder is decompressed and therefore not accurately evaluated, however, no gross bladder abnormality is identified. Uterus is surgically absent. No gross free pelvic fluid. No inguinal lymphadenopathy. Mild to moderate degenerative changes of the spine. CT/CT abdomen pelvis wo IV con IMPRESSION: No acute abnormality within the abdomen or pelvis. Fleischner guidelines were followed.
--- NOTE | ~2022-02-03 | XR_ITS ---
EXAMINATION: XR CHEST CLINICAL INFORMATION: Fever. COMPARISON: Chest x-ray 12/30/2021 TECHNIQUE: Frontal view of the chest was obtained. FINDINGS: The lungs are well-expanded without acute pneumonic process. Heart size and pulmonary vascularity is normal. No gross bony abnormality seen. There is a left central venous port with its tip in left brachiocephalic vein. There is mild dextroscoliosis of dorsal spine with mild spondylosis. There is a ventral plate in the lower cervical spine for fusion XR/XR chest 1V IMPRESSION: 1. No acute cardiopulmonary process seen. 2. Mild dextroscoliosis dorsal spine with spondylosis.
[2022-02-03 22:47] VITALS: BP 109/46; PULSE 100; RESP 18; TEMP 36.6; O2SAT 94; BMI 35.4
[2022-02-04] VITALS (8 sets, daily range): BP systolic 112–153; BP diastolic 37–83; PULSE 91–130; RESP 17–26; TEMP 36.8–38.5; O2SAT 94–99
[2022-02-04 00:24] LABS: PLT CLUMP 1; SCAN SMEAR FLAG 1
[2022-02-04 00:26] LABS: Hematocrit 23.8 % (37.0-47.0); Hemoglobin 7.9 g/dl (12.0-16.0); Imm Gran Abs Auto 0.07 X10*3/uL (0.00-0.03); Lymphocytes Absolute Auto 0.5 X10*3/uL (1.2-4.9); Lymphocytes Percent Auto 6.7 % (20-40); Mean Corpuscular HGB Conc 33.2 g/dl (31.0-35.0); Mean Corpuscular Hemoglobin 29.8 pg (27.0-33.0); Mean Corpuscular Volume 89.8 fL (80.0-98.0); Mean Platelet Volume 10.7 fL (9.4-12.3); Monocytes Absolute Auto 0.4 X10*3/uL (0.1-1.2); Monocytes Percent Auto 5.3 % (2-11); Neutrophils Absolute Auto 6.2 x10*3/uL (2.0-8.3); Red Blood Count 2.65 X10*6/uL (4.20-5.50); Red Cell Distribution Width 20.5 % (11.0-16.0)
[2022-02-04 00:28] LABS: MANUAL DIFF FLAG NO; Platelet Count 49 X10*3/uL (160-400); White Blood Count 7.1 X10*3/uL (4.8-10.8)
[2022-02-04 00:37] LABS: Anion Gap 13 (12-20); Blood Urea Nitrogen 16 mg/dL (9-16); Calcium 7.9 mg/dL (8.4-10.2); Carbon Dioxide 23 mmol/L (22-29); Chloride 100 mmol/L (96-108); Estimated Glomerular Filt Rate > 60; Glucose Random 111 mg/dL (60-115); Potassium 2.8 mmol/L (3.3-5.1); Sodium 133 mmol/L (135-145)
[2022-02-04 01:01] LABS: Influenza A PCR NEGATIVE (Negative); Influenza B PCR NEGATIVE (Negative); Resp Syncy Virus RNA Qual PCR NEGATIVE (Negative); SARS COV2 PCR INHOUSE NEGATIVE (Negative)
[2022-02-04] MEDS: Acetaminophen 325 MG TABLET 975 MG PO (05:51)
[2022-02-04] MEDS: 0.9 % Sodium Chloride 1,000 ML 999 ML IV ×2 (06:12→10:00)
[2022-02-04 06:36] LABS: Lactic Acid 1.6 mmol/L (0.5-2.0)
[2022-02-04 06:43] LABS: Alanine Aminotransferase 13 U/L (0-31); Albumin Level 2.8 g/dL (3.5-5.0); Alkaline Phosphatase 85 U/L (39-117); Aspartate Amino Transferase 20 U/L (5-31); Bilirubin Direct 0.4 mg/dL (0.0-0.5); Bilirubin Total 0.8 mg/dL (0.0-1.0); Total Protein 5.5 g/dL (6.5-8.0)
--- NOTE | 2022-02-04 07:00 | ED.GENADULT ---
HPI - General Adult General Chief complaint: General Medical Stated complaint: Fever Time Seen by Provider: 02/04/22 06:49 Source: patient and EMS Mode of arrival: EMS Limitations: no limitations History of Present Illness HPI narrative: 67-year-old female came in for evaluation of fever for the last 4 days, patient been having headache, generalized body ache, upper abdominal pain with a fever, no nausea, no vomiting. Patient had a history of breast cancer status post chemotherapy every 3 weeks last chemo was 3 weeks ago presented with fever for the past 4 days patient has been taking Tylenol to control her fever, patient declined any sick contact, known travel. Mild nonproductive coughing. Related Data Home Medications Medication Instructions Recorded Confirmed ketoconazole 2 % shampoo 1 appl topical 2XW 09/28/21 01/30/22 cyanocobalamin (vitamin B-12) 1,000 mcg PO BEDTIME 10/12/21 01/30/22 1,000 mcg capsule calcium carbonate 600 mg-vitamin 1 tab PO DAILY 10/31/21 01/30/22 D3 10 mcg (400 unit) tablet cholecalciferol (vitamin D3) 25 25 mcg PO DAILY 11/23/21 01/30/22 mcg (1,000 unit) tablet alendronate 70 mg tablet (Fosamax) 70 mg PO FR@0600 11/29/21 01/30/22 ondansetron 8 mg disintegrating 8 mg PO Q8H PRN Nausea 11/29/21 01/30/22 tablet duloxetine 60 mg capsule,delayed 60 mg PO BEDTIME 01/18/22 01/30/22 release (Cymbalta) Previous Rx's Medication Instructions Recorded diphenhydramine HCl 25 mg capsule 25 mg PO TID PRN itching #14 caps 06/24/21 (Benadryl) clonidine HCl 0.2 mg tablet 0.2 mg PO BEDTIME #90 tabs 12/13/21 hydrocortisone 2.5 % topical cream 1 appl [place] BID #30 grams 12/19/21 with perineal applicator (Proctozone-HC) loperamide 2 mg capsule 2 mg PO Q4H PRN Diarrhea #24 caps 12/19/21 immune glob,gamma(IgG) 10 45 g IV DAILY #1 ea 01/03/22 csbw-xwr-ylpe-IgA 0 to 50 mcg/mL IV solution (Gammagard S-D (IgA < 1 mcg/mL)) digoxin 250 mcg (0.25 mg) tablet 0.25 mg PO DAILY #30 tabs 01/08/22 valsartan 40 mg tablet 20 mg PO BID #30 tabs 01/08/22 furosemide 20 mg tablet (Lasix) 20 mg PO .3 times a week #30 tabs 01/22/22 potassium chloride 20 mEq 20 meq PO BID #60 tabs 01/24/22 tablet,extended release(part/cryst) (Klor-Con M) magnesium aspartate HCl 61 mg (615 61 mg PO DAILY #30 tabs 01/30/22 mg) tablet,delayed release (Maginex) Allergies Allergy/AdvReac Type Severity Reaction Status Date / Time No Known Allergies Allergy Verified 01/30/22 09:41 Review of Systems Review of Systems: All other systems are reviewed and are negative Constitutional: Reports as per HPI and Reports no additional constitutional complaints Eyes: Reports as per HPI and Reports no additional eye complaints Reports system reviewed and no additional complaints, except as documented Cardiovascular: Reports as per HPI and Reports no additional cardiovascular complaints Respiratory: Reports as per HPI and Reports no additional respiratory complaints Gastrointestinal: Reports as per HPI and Reports no additional gastrointestinal complaints Genitourinary: Reports no additional female genitourinary complaints Musculoskeletal: Reports no additional musculoskeletal complaints Skin/Breast: Reports system reviewed and no additional complaints, except as docu Psychiatric: Reports no additional psychiatric complaints Endocrine: Reports no additional endocrine complaints Hematologic/Lymphatic: Reports no additional hematologic/lymphatic complaints Allergic/Immunologic: Reports no additional allergic/immunologic complaints Reports system reviewed and no additional complaints, except as documented and Reports Abnormal speech present [facility] Past Medical History Medical History Acute diastolic (congestive) heart failure Acute on chronic heart failure with preserved ejection fraction (HFpEF) Anemia Anxiety Atrial arrhythmia Breast calcification, right Breast cancer, right CHF (congestive heart failure) Colitis Dermatomyositis Encounter to establish care History of COVID-19 Hypertension Insomnia Invasive ductal carcinoma of right breast Lumbar degenerative disc disease Major depression, chronic Nonsustained supraventricular tachycardia Pain in both feet Pancolitis Pancytopenia Pedal edema Port-A-Cath in place Surgical History History of arthroscopic knee surgery History of section History of cholecystectomy History of fusion of cervical spine History of gastric bypass History of hysterectomy History of tonsillectomy Hx of colonoscopy Status post right breast lumpectomy Family History Family History Mother No problems noted. Father Breast cancer Bone cancer Brother Substance use disorder Paternal Aunt Breast cancer Social History Social History Household Members: Children Housing: House Are you a primary personal carer to a significant other at home: No Do you presently have visiting nurse or other home services: No Alcohol intake: former Patient Tobacco Use Status: Former Tobacco user Quit Date: 12 yrs ago Tobacco use type: Cigarette e-Cigarette/Vaping Use: Never Used Second Hand Smoke Exposure: No Advance Directives: Yes Advance Directives on File: Yes Advance Directives Date on File: 11/28/21 service: No Current occupational status: unemployed and retired Cognitive needs: Yes (cane) Hearing needs: No Vision needs: Yes (glasses) Physical Exam ED Vital Signs: Vital Signs - 24 hr 02/03/22 22:47 02/04/22 02:07 02/04/22 04:02 Temperature 97.9 F 99.3 F 100.2 F Pulse Rate 100 91 96 Respiratory Rate 18 18 17 Blood Pressure 109/46 L 144/70 H 115/43 L Pulse Oximetry 94 94 96 Oxygen Delivery Method Room Air Room Air Room Air 02/04/22 05:45 02/04/22 07:14 02/04/22 07:26 Temperature 101.3 F H 98.2 F 98.2 F Pulse Rate 97 130 H 108 H Respiratory Rate 21 H 22 H 21 H Blood Pressure 115/43 L 118/62 112/67 Pulse Oximetry 95 97 95 Oxygen Delivery Method Room Air Room Air BMI result Body Mass Index 35.4 Vital signs have been reviewed as appeared to be correct. Blood pressure normal. Heart rate normal. Respiration rate normal. Temperature normal. Oxygen saturation normal. Appearance: Alert. Oriented X3. No acute distress. Head: Normal external exam. Normocephalic. Atraumatic. No Wheeler signs noted. No raccoon eyes noted Eyes: PERRLA. EOMI. Conjunctiva and sclera normal. Eyelids normal. ENT: TM's Normal. Pharynx normal. Uvula midline. Moist mucous membranes. No trismus noted. No drooling noted. No muffled voice noted. Neck: Normal inspection. Neck supple. FROM. No adenopathy. Thyroid Normal. No meningeal signs. No neck mass noted. CVS: Normal heart rate and rhythm. Heart sound normal. No murmurs noted. Pulses normal throughout. Respiratory: No respiratory distress. Painless inspiration. Breath sounds normal. No wheezes/rales/rhonchi noted. Chest nontender. No accessory muscle usage noted or decreased air movement noted. Abdomen: Soft and nontender. Bowel sounds normal in all 4 quadrants. No distention noted. No organomegaly noted. No visible injury noted. Back: No CVA tenderness. Full range of motion noted. Skin: Skin warm and dry. Normal skin color. Normal skin turgor. No rashes/lesions/lacerations noted. Extremities: No lower extremity edema. Extremities exhibit normal range of motion. Extremities nontender. Neuro: Oriented X 3. Cranial nerve exam: II-XII are grossly intact No motor deficit. No sensory deficit. Reflexes normal. Course Course Course Narrative: 67-year-old female with history of breast cancer on chemotherapy presented with fever of unknown source, found to have urinary tract infection patient meets criteria for SIRS will start patient on IV hydration and antibiotic. Hypokalemia will replete potassium. Abdominal pain no acute findings on the CT. Medications Administered Discontinued Medications Generic Name Dose Route Start Last Admin Trade Name Freq PRN Reason Stop Dose Admin Acetaminophen 975 mg 02/04/22 05:47 02/04/22 05:51 Acetaminophen 325 Mg Tablet PO 02/04/22 05:48 975 mg ONCE ONE Administration Sodium Chloride 1,000 mls @ 999 mls/hr 02/04/22 05:55 02/04/22 06:12 Ns IV 02/04/22 06:55 999 mls/hr .[id number] STA Administration Medical Decision Making Lab Data Lab results reviewed: Yes I reviewed the patient's lab results. Result diagrams: 02/04/22 00:17 02/04/22 00:17 Labs: Lab Results 02/04/22 02/04/22 02/04/22 Range/Units 00:17 00:17 00:17 WBC 7.1 (4.8-10.8) X10*3/uL RBC 2.65 L (4.20-5.50) X10*6/uL Hgb 7.9 L (12.0-16.0) g/dl Hct 23.8 L (37.0-47.0) % MCV 89.8 (80.0-98.0) fL MCH 29.8 (27.0-33.0) pg MCHC 33.2 (31.0-35.0) g/dl RDW 20.5 H (11.0-16.0) % Plt Count 49 L D (160-400) X10*3/uL MPV 10.7 (9.4-12.3) fL Immature Gran % (Auto) 1.0 H (0.0-0.4) % Neut % (Auto) 87.0 H (45-73) % Lymph % (Auto) 6.7 L (20-40) % [place] % (Auto) 5.3 (2-11) % Eos % (Auto) 0.0 (0-4) % Baso % (Auto) 0.0 (0-2) % Lymph # (Auto) 0.5 L (1.2-4.9) X10*3/uL [place] # (Auto) 0.4 (0.1-1.2) X10*3/uL Eos # (Auto) 0.0 (0.0-0.4) X10*3/uL Baso # (Auto) 0.0 (0.0-0.2) X10*3/uL Abs Immat Gran (auto) 0.07 H (0.00-0.03) X10*3/uL Absolute Neuts (auto) 6.2 (2.0-8.3) x10*3/uL Absolute Nucleated RBC 0.000 (0.0-0.012) X10*3/uL Nucleated RBC % (auto) 0.0 (0.0-0.2) /100WBC Sodium 133 L (135-145) mmol/L Potassium 2.8 L (3.3-5.1) mmol/L Chloride 100 (96-108) mmol/L Carbon Dioxide 23 (22-29) mmol/L Anion Gap 13 (12-20) BUN 16 (9-16) mg/dL Creatinine 0.81 (0.5-1.4) mg/dL Estim Creat Clear Calc 74.0 Estimated GFR > 60 Random Glucose 111 (60-115) mg/dL Lactic Acid (0.5-2.0) mmol/L Calcium 7.9 L (8.4-10.2) mg/dL Total Bilirubin 0.8 (0.0-1.0) mg/dL Direct Bilirubin 0.4 (0.0-0.5) mg/dL AST 20 (5-31) U/L ALT 13 (0-31) U/L Alkaline Phosphatase 85 (39-117) U/L Total Protein 5.5 L (6.5-8.0) g/dL Albumin 2.8 L (3.5-5.0) g/dL Urine Color Urine Appearance Urine pH (5.0-9.0) Ur Specific [place] (1.005-1.025) Urine Protein (Neg-Trace) mg/dL Urine Glucose (UA) (Negative) mg/dL Urine Ketones (Negative) mg/dL Urine Blood (Negative) Urine Nitrite (Negative) Ur Leukocyte Esterase (Negative) Urine RBC (0-2) /HPF Urine WBC (0-5) /HPF Ur Squamous Epith Cells (0-2) /HPF Urine Bacteria (None Seen) Hyaline Casts (0-2) /LPF Influenza Type A (PCR) NEGATIVE (Negative) Influenza Type B (PCR) NEGATIVE (Negative) RSV RNA Qual (PCR) NEGATIVE (Negative) SARS-CoV-2 RNA (RT-PCR) NEGATIVE (Negative) 02/04/22 02/04/22 Range/Units 06:14 07:20 WBC (4.8-10.8) X10*3/uL RBC (4.20-5.50) X10*6/uL Hgb (12.0-16.0) g/dl Hct (37.0-47.0) % MCV (80.0-98.0) fL MCH (27.0-33.0) pg MCHC (31.0-35.0) g/dl RDW (11.0-16.0) % Plt Count (160-400) X10*3/uL MPV (9.4-12.3) fL Immature Gran % (Auto) (0.0-0.4) % Neut % (Auto) (45-73) % Lymph % (Auto) (20-40) % [place] % (Auto) (2-11) % Eos % (Auto) (0-4) % Baso % (Auto) (0-2) % Lymph # (Auto) (1.2-4.9) X10*3/uL [place] # (Auto) (0.1-1.2) X10*3/uL Eos # (Auto) (0.0-0.4) X10*3/uL Baso # (Auto) (0.0-0.2) X10*3/uL Abs Immat Gran (auto) (0.00-0.03) X10*3/uL Absolute Neuts (auto) (2.0-8.3) x10*3/uL Absolute Nucleated RBC (0.0-0.012) X10*3/uL Nucleated RBC % (auto) (0.0-0.2) /100WBC Sodium (135-145) mmol/L Potassium (3.3-5.1) mmol/L Chloride (96-108) mmol/L Carbon Dioxide (22-29) mmol/L Anion Gap (12-20) BUN (9-16) mg/dL Creatinine (0.5-1.4) mg/dL Estim Creat Clear Calc Estimated GFR Random Glucose (60-115) mg/dL Lactic Acid 1.6 (0.5-2.0) mmol/L Calcium (8.4-10.2) mg/dL Total Bilirubin (0.0-1.0) mg/dL Direct Bilirubin (0.0-0.5) mg/dL AST (5-31) U/L ALT (0-31) U/L Alkaline Phosphatase (39-117) U/L Total Protein (6.5-8.0) g/dL Albumin (3.5-5.0) g/dL Urine Color Dark Yellow Urine Appearance Cloudy Urine pH 5.5 (5.0-9.0) Ur Specific [place] 1.020 (1.005-1.025) Urine Protein 100 (2+) H (Neg-Trace) mg/dL Urine Glucose (UA) Negative (Negative) mg/dL Urine Ketones Negative (Negative) mg/dL Urine Blood Small (1+) H (Negative) Urine Nitrite Negative (Negative) Ur Leukocyte Esterase Small (1+) H (Negative) Urine RBC 6-10 H (0-2) /HPF Urine WBC >50 H (0-5) /HPF Ur Squamous Epith Cells 6-10 (0-2) /HPF Urine Bacteria 4+ (None Seen) Hyaline Casts 0-2 (0-2) /LPF Influenza Type A (PCR) (Negative) Influenza Type B (PCR) (Negative) RSV RNA Qual (PCR) (Negative) SARS-CoV-2 RNA (RT-PCR) (Negative) Imaging Data CT scan - abdomen: Attestation: I personally reviewed and interpreted this imaging study as follows: Radiologist's impression: No acute intra-abdominal pathology. Chest x-ray: Attestation: I personally reviewed and interpreted this imaging study as follows: Radiologist's impression: No acute cardiopulmonary process seen. Discharge Plan Discharge Clinical Impression: Abdominal pain, UTI (urinary tract infection), Acute hypokalemia, SIRS (systemic inflammatory response syndrome) Patient Disposition: Admitted As Inpatient Prescriptions: No Action clonidine HCl 0.2 mg tablet 0.2 mg PO BEDTIME Qty: 90 1RF Gammagard S-D (IgA < 1 mcg/mL) 10 gram recon soln 45 g IV DAILY Qty: 1 4RF Rx Instructions: for 2 consecutive days every 30 days cyanocobalamin (vitamin B-12) 1,000 mcg capsule 1,000 mcg PO BEDTIME digoxin 250 mcg (0.25 mg) Tablet 0.25 mg PO DAILY Qty: 30 0RF valsartan 40 mg Tablet 20 mg PO BID Qty: 30 0RF Protocol: Hold for SBP< HOLD for SBP < : 90 diphenhydramine HCl [Benadryl] 25 mg capsule 25 mg PO TID PRN (Reason: itching) Qty: 14 0RF duloxetine [Cymbalta] 60 mg capsule,delayed release(DR/EC) 60 mg PO BEDTIME Maginex 61 mg (615 mg) Tablet,Delayed Release (Dr/Ec) 61 mg PO DAILY Qty: 30 0RF cholecalciferol (vitamin D3) 25 mcg (1,000 unit) Tablet 25 mcg PO DAILY alendronate [Fosamax] 70 mg tablet 70 mg PO FR@0600 loperamide 2 mg Capsule 2 mg PO Q4H PRN (Reason: Diarrhea) Qty: 24 0RF hydrocortisone [Proctozone-HC] 2.5 % Cream With Perineal Applicator 1 appl [place] BID Qty: 30 0RF ketoconazole 2 % shampoo 1 appl topical 2XW calcium carbonate-vitamin D3 600 mg-10 mcg (400 unit) tablet 1 tab PO DAILY ondansetron 8 mg tablet,disintegrating 8 mg PO Q8H PRN (Reason: Nausea) potassium chloride [Klor-Con M20] 20 mEq tablet,ER particles/crystals 20 meq PO BID Qty: 60 4RF furosemide [Lasix] 20 mg tablet 20 mg PO .3 times a week Qty: 30 4RF
--- NOTE | 2022-02-04 07:12 | PC.NURSE ---
Assisted pt to get to the restroom. Pt c/o diarrhea.
[2022-02-04 07:37] LABS: Appearance Urine Cloudy; Color Urine Dark Yellow; Glucose Urine UA Negative (Negative); Leukocyte Esterase Urine Small (1+) (Negative); Nitrite Urine Negative (Negative); PH 5.5 (5.0-9.0); UMIC TRIGGER UACC YES; Urine Blood Small (1+) (Negative); Urine Ketones Negative (Negative); Urine Protein 100 (2+) mg/dL (Neg-Trace)
--- NOTE | 2022-02-04 07:40 | PC.NURSE ---
PT ATE SMALL AMOUNT OF BREAKFAST SHE STATES HE IS GENERALLY NOT FEELING WELL. SHE IS SCHEDULED FOR A CT ABDOMEN. IV FLUIDS ARE CONTINUING TO INFUSE IN HER LEFT CHEST PORT.
[2022-02-04 07:42] LABS: Bacteria Urine 4+ (None Seen); Hyaline Casts Urine 0-2 /LPF (0-2); UACC Culture Trigger YES; WBC Urine >50 /HPF (0-5)
[2022-02-04] MEDS: Potassium Chloride Packet 20 MEQ PACKET 40 MEQ PO (10:01)
[2022-02-04] MEDS: cefTRIAXone sodium 1 GM in 0.9 % Sodium Chloride 50 ML IV (10:01)
--- NOTE | 2022-02-04 10:23 | PHA.MEDREC ---
Pharmacy Consult ? Medication Reconciliation Pharmacy has completed the medication reconciliation. Patient confirmed all medications. Joanne Malone, AbbyD
[2022-02-04] MEDS: Potassium Chloride/H20 10 MEQ/100 ML PIGGYBACK 100 MEQ IV (10:40)
--- NOTE | 2022-02-04 12:13 | PM.IMHP ---
History of Present Illness Date of Service: 02/04/22 Chief Complaint: chills 67F pmh atrial tach, hfpef, breast cancer, obesity, presented with chills. patient is on chemotherapy for breast cancer, carboplatin/docetaxel/Herceptin/pertuzumab, last dose 01/18/22, s/p ivig 01/23-, started feeling ill 3 days ptp, complaining of fevers, chills, myalgias, water diarrhea, abd discomfort. sympotmst worsening so she came to ED. in ED noted to have fever 101.3, tachycardia, ua positive, CT abd, cxr unremarkable. Review of Systems Review of Systems: Constitutional: see hpi Eyes: denies blurry vision ENT: denies sore throat CVS: denies chest pain Respiratory: Denies dyspnea GI: abdominal pain : denies dysuria MSK: denies neck pain Skin: denies rash Neuro: denies specific motor weakness Psych: denies suicidal ideation Endocrine: denies heat/cold intolerance Hematologic: denies easy bleeding Allergy: denies hives [facility] Medical History Acute diastolic (congestive) heart failure Acute on chronic heart failure with preserved ejection fraction (HFpEF) Anemia Anxiety Atrial arrhythmia Breast calcification, right Breast cancer, right CHF (congestive heart failure) Colitis Dermatomyositis Encounter to establish care History of COVID-19 Hypertension Insomnia Invasive ductal carcinoma of right breast Lumbar degenerative disc disease Major depression, chronic Nonsustained supraventricular tachycardia Pain in both feet Pancolitis Pancytopenia Pedal edema Port-A-Cath in place Family History Mother No problems noted. Father Breast cancer Bone cancer Brother Substance use disorder Paternal Aunt Breast cancer Surgical History History of arthroscopic knee surgery History of section History of cholecystectomy History of fusion of cervical spine History of gastric bypass History of hysterectomy History of tonsillectomy Hx of colonoscopy Status post right breast lumpectomy Social History Household Members: Children Housing: House Are you a primary home care assistant to a significant other at home: No Do you presently have visiting nurse or other home services: No Alcohol intake: former Patient Tobacco Use Status: Former Tobacco user Quit Date: 12 yrs ago Tobacco use type: Cigarette e-Cigarette/Vaping Use: Never Used Second Hand Smoke Exposure: No Advance Directives: Yes Advance Directives on File: Yes Advance Directives Date on File: 11/28/21 service: No Current occupational status: unemployed and retired Cognitive needs: Yes (cane) Hearing needs: No Vision needs: Yes (glasses) Meds Allergies Allergy/AdvReac Type Severity Reaction Status Date / Time No Known Allergies Allergy Verified 01/30/22 09:41 Active Medications: Current Medications Calcium Carbonate/Cholecalciferol (Calcium + Vitamin D 250 Mg Tablet) 500 mg PO DAILY [facility] Cyanocobalamin (Cyanocobalamin (Vitamin B-12) 1,000 Mcg Tablet) 1,000 mcg PO BEDTIME CHELSIE Digoxin (Digoxin 0.25 Mg Tablet) 0.25 mg PO DAILY [facility] Diphenhydramine HCl (Diphenhydramine Hcl 25 Mg Capsule) 25 mg PO TID PRN PRN Reason: itching Duloxetine HCl (Duloxetine Hcl 60 Mg Capsule.Dr) 60 mg PO BEDTIME [facility] Ceftriaxone Sodium 1 gm/ (Sodium Chloride) 50 mls @ 100 mls/hr IV Q24H CHELSIE Sodium Chloride (Ns) 1,000 mls @ 75 mls/hr IVCONT .[id number] [facility] Loperamide HCl (Loperamide Hcl 2 Mg Capsule) 2 mg PO Q4H PRN PRN Reason: Diarrhea Magnesium Oxide (Magnesium Oxide 400 Mg Tablet) 400 mg PO BIDPC [facility] Pharmacy Consult (Consult Rx Perform Med Rec) 1 each MISCELLANE ONCE PRN PRN Reason: Consult order Vitamin D (Cholecalciferol (Vitamin D3) 25 Mcg Tablet) 25 mcg PO DAILY [facility] Home Medications Medication Instructions Recorded Confirmed Last Taken Type cyanocobalamin (vitamin B-12) 1,000 mcg PO BEDTIME 10/12/21 02/04/22 02/02/22 History 1,000 mcg capsule calcium carbonate 600 mg-vitamin 1 tab PO DAILY 10/31/21 02/04/22 02/02/22 History D3 10 mcg (400 unit) tablet cholecalciferol (vitamin D3) 25 25 mcg PO DAILY 11/23/21 02/04/22 02/02/22 History mcg (1,000 unit) tablet alendronate 70 mg tablet (Fosamax) 70 mg PO FR@0600 11/29/21 02/04/22 02/02/22 History duloxetine 60 mg capsule,delayed 60 mg PO BEDTIME 01/18/22 02/04/22 02/02/22 History release (Cymbalta) furosemide 20 mg tablet (Lasix) 20 mg PO MOWEFR 02/04/22 02/04/22 02/02/22 History hydrocortisone 2.5 % topical cream 1 appl NE BID PRN Hemorrhoids 02/04/22 02/04/22 Unknown History with perineal applicator (Proctozone-HC) immune glob,gamma(IgG) 10 45 g IV QMONTH 02/04/22 02/04/22 01/27/22 History yvip-yip-kilr-IgA 0 to 50 mcg/mL IV solution (Gammagard S-D (IgA < 1 mcg/mL)) prednisone 10 mg tablet 9 tab PO QAM 02/04/22 02/04/22 02/02/22 History Physical Exam Vital Signs and Narrative: Vital Signs: Last Vital Signs Temp 98.2 F 02/04/22 07:26 Pulse 108 H 02/04/22 07:26 Resp 21 H 02/04/22 07:26 BP 112/67 02/04/22 07:26 Pulse Ox 95 02/04/22 07:26 O2 Del Method 02/04/22 07:26 BMI result Body Mass Index 35.4 General: shivering, ill appearing HEENT: atraumatic Neck: normal to visual inspection CVS: S1, S2, RRR Resp: CTA bilateral Chest: non tender GI: soft, non tender, non distended : no CVA tenderness Skin: no rashes Extremities: no edema Neuro: Oriented X3, grossly intact Psych: cooperative Results Labs CBC and Chem 7: 02/04/22 00:17 02/04/22 00:17 Labs: Laboratory Results - last 24 hr 02/04/22 02/04/22 02/04/22 00:17 00:17 00:17 MCV 89.8 MCH 29.8 MCHC 33.2 RDW 20.5 H Plt Count 49 L D MPV 10.7 Immature Gran % (Auto) 1.0 H Neut % (Auto) 87.0 H Lymph % (Auto) 6.7 L [place] % (Auto) 5.3 Eos % (Auto) 0.0 Baso % (Auto) 0.0 Lymph # (Auto) 0.5 L [place] # (Auto) 0.4 Eos # (Auto) 0.0 Baso # (Auto) 0.0 Abs Immat Gran (auto) 0.07 H Absolute Neuts (auto) 6.2 Absolute Nucleated RBC 0.000 Nucleated RBC % (auto) 0.0 Anion Gap 13 Estim Creat Clear Calc 74.0 Estimated GFR > 60 Random Glucose 111 Lactic Acid Calcium 7.9 L Total Bilirubin 0.8 Direct Bilirubin 0.4 AST 20 ALT 13 Alkaline Phosphatase 85 Total Protein 5.5 L Albumin 2.8 L Urine Color Urine Appearance Urine pH Ur Specific [place] Urine Protein Urine Glucose (UA) Urine Ketones Urine Blood Urine Nitrite Ur Leukocyte Esterase Urine RBC Urine WBC Ur Squamous Epith Cells Urine Bacteria Hyaline Casts Influenza Type A (PCR) NEGATIVE Influenza Type B (PCR) NEGATIVE RSV RNA Qual (PCR) NEGATIVE SARS-CoV-2 RNA (RT-PCR) NEGATIVE 02/04/22 02/04/22 06:14 07:20 MCV MCH MCHC RDW Plt Count MPV Immature Gran % (Auto) Neut % (Auto) Lymph % (Auto) [place] % (Auto) Eos % (Auto) Baso % (Auto) Lymph # (Auto) [place] # (Auto) Eos # (Auto) Baso # (Auto) Abs Immat Gran (auto) Absolute Neuts (auto) Absolute Nucleated RBC Nucleated RBC % (auto) Anion Gap Estim Creat Clear Calc Estimated GFR Random Glucose Lactic Acid 1.6 Calcium Total Bilirubin Direct Bilirubin AST ALT Alkaline Phosphatase Total Protein Albumin Urine Color Dark Yellow Urine Appearance Cloudy Urine pH 5.5 Ur Specific [place] 1.020 Urine Protein 100 (2+) H Urine Glucose (UA) Negative Urine Ketones Negative Urine Blood Small (1+) H Urine Nitrite Negative Ur Leukocyte Esterase Small (1+) H Urine RBC 6-10 H Urine WBC >50 H Ur Squamous Epith Cells 6-10 Urine Bacteria 4+ Hyaline Casts 0-2 Influenza Type A (PCR) Influenza Type B (PCR) RSV RNA Qual (PCR) SARS-CoV-2 RNA (RT-PCR) Imaging Radiologist's Impressions: Impressions Chest X-Ray 02/04/22 07:50 IMPRESSION: 1. No acute cardiopulmonary process seen. 2. Mild dextroscoliosis dorsal spine with spondylosis. Abdomen/Pelvis CT 02/04/22 07:57 IMPRESSION: No acute abnormality within the abdomen or pelvis. Fleischner guidelines were followed. Assessment and Plan (1) Abdominal pain: Status: Acute Plan 67F pmh atrial tach, hfpef, breast cancer, obesity, presented with chills sepsis in patient with breast cancer on chemotherapy likely uti rocephin, follow up cultures hypokalemia and hypomagnesemia replace and monitor atrial tach continue dig anxiety cymbalta hfpef hold lasix, monitor obesity weight loss dvt prophylaxis - mechancial due to thrombocytopenia full code patient with sepsis in high risk paitent due to breast cancer on chemotherapy, therefore, likely to require atleast to midnights inpatient Quality Stroke Does the patient have a stroke diagnosis?: No VTE Prior VTE?: No VTE Risk Level:: Medical - moderate - high VTE Device Contraindication: N/A - Device Ordered VTE Drug Contraindication: Treatment Not Indicated
--- NOTE | 2022-02-04 12:18 | PC.NURSE ---
PT REPORTS DIFF BREATHING, SHE WAS PLACED ON A NC @4L FOR O2 SATS OF 87%
[2022-02-04] MEDS: 0.9 % Sodium Chloride 1,000 ML 75 ML IVCONT (13:40)
--- NOTE | 2022-02-04 14:32 | PC.NURSE ---
pt with several episodes of liquid diarrhea, provider aware, stool sample to be sent to lab.
--- NOTE | 2022-02-04 15:22 | MHC.CM.PN ---
MET WITH PT AND [facility] HAD NO SERVCEIS IS COVID VAX X3 DC PLAN HOME NO SERVCEIS
[2022-02-04 15:50] LABS: CDiff Gene PCR NEGATIVE (Negative)
[2022-02-04] MEDS: Magnesium Oxide 400 MG TABLET PO (17:19)
[2022-02-04] MEDS: DULoxetine HCl 60 MG CAPSULE.DR PO (21:51)
[2022-02-04] MEDS: Cyanocobalamin (Vitamin B-12) 1,000 MCG TABLET 1000 MCG PO (21:51)
[2022-02-04] MEDS: Acetaminophen 325 MG TABLET 650 MG PO (22:27)
[2022-02-04] MEDS: cloNIDine HCL 0.2 MG TABLET PO (22:27)
[2022-02-05] VITALS (9 sets, daily range): BP systolic 107–150; BP diastolic 37–80; PULSE 90–101; RESP 18–25; TEMP 36.7–37.8; O2SAT 95
[2022-02-05] MEDS: 0.9 % Sodium Chloride Flush 3 ML SYRINGE IVFLUSH (02:14)
[2022-02-05] MEDS: 0.9 % Sodium Chloride 1,000 ML 75 ML IVCONT ×2 (02:14→15:01)
[2022-02-05 06:30] LABS: Mean Corpuscular HGB Conc 32.7 g/dl (31.0-35.0); Mean Corpuscular Hemoglobin 29.8 pg (27.0-33.0); Mean Corpuscular Volume 91.1 fL (80.0-98.0); Mean Platelet Volume 10.9 fL (9.4-12.3); Red Blood Count 2.25 X10*6/uL (4.20-5.50); Red Cell Distribution Width 20.4 % (11.0-16.0)
[2022-02-05 06:45] LABS: Hemoglobin 6.7 g/dl (12.0-16.0); Platelet Count 47 X10*3/uL (160-400)
[2022-02-05 06:46] LABS: Hematocrit 20.5 % (37.0-47.0)
--- NOTE | 2022-02-05 07:18 | PC.NURSE ---
Critical Magnesium 1.4 received. Provider aware.
[2022-02-05 07:20] LABS: Blood Urea Nitrogen 11 mg/dL (9-16); Creatinine Clr Calc Pharmacy 83.2; Estimated Glomerular Filt Rate > 60; Glucose Fasting 102 mg/dL (60-99); Magnesium 1.4 mg/dL (1.6-2.6)
[2022-02-05 07:27] LABS: Anion Gap 11 (12-20); Carbon Dioxide 21 mmol/L (22-29); Chloride 103 mmol/L (96-108); Potassium 2.7 mmol/L (3.3-5.1); Sodium 132 mmol/L (135-145)
[2022-02-05] MEDS: Magnesium Oxide 400 MG TABLET PO ×2 (07:37→16:30)
[2022-02-05] MEDS: cefTRIAXone sodium 1 GM in 0.9 % Sodium Chloride 50 ML IV (07:38)
--- NOTE | 2022-02-05 08:07 | PC.NURSE ---
Two active orders for PRBC, per Dr. Barron only transfuse one unit.
[2022-02-05] MEDS: Digoxin 0.25 MG TABLET PO (08:13)
[2022-02-05] MEDS: Calcium + Vitamin D 250 MG TABLET 500 MG PO (08:13)
[2022-02-05] MEDS: Cholecalciferol (Vitamin D3) 25 MCG TABLET PO (08:13)
--- NOTE | 2022-02-05 08:53 | PC.NURSE ---
Blood consent obtained by Dr. Barron.
--- NOTE | 2022-02-05 09:14 | HO.PM.IMPN ---
Subjective Subjective Date of Service: 02/05/22 Interval History: cc: diarrhea, weakness interval history: minimal improvement Cardiovascular Cardiovascular: Reports no additional cardiovascular complaints Respiratory Respiratory: Reports no additional respiratory complaints Physical Exam Vital Signs: Vital Signs: Last Vital Signs Temp 98.8 F 02/05/22 07:58 Pulse 91 02/05/22 07:58 Resp 24 H 02/05/22 07:58 BP 107/41 L 02/05/22 07:58 Pulse Ox 95 02/05/22 06:24 O2 Del Method 02/05/22 07:58 O2 Flow Rate 2.5 02/04/22 16:27 BMI result Body Mass Index 35.4 General: AO X 3, weak, ill appearing Resp: CTA bilateral, no accessory muscles used CVS: S1,S2,RRR GI: soft, non tender, non distended Neuro: motor grossly intact, alert Psych: appropriate affect, appropriate insight Objective Data Active Medications Acetaminophen (Acetaminophen 325 Mg Tablet) 650 mg PO Q6H PRN PRN Reason: fever Last Admin: 02/04/22 22:27 Dose: 650 mg Documented By: YOVANI Calcium Carbonate/Cholecalciferol (Calcium + Vitamin D 250 Mg Tablet) 500 mg PO DAILY [facility] Last Admin: 02/05/22 08:13 Dose: 500 mg Documented By: DIEGO Clonidine HCl (Clonidine Hcl 0.2 Mg Tablet) 0.2 mg PO BEDTIME [facility]; Protocol Last Admin: 02/04/22 22:27 Dose: 0.2 mg Documented By: YOVANI Cyanocobalamin (Cyanocobalamin (Vitamin B-12) 1,000 Mcg Tablet) 1,000 mcg PO BEDTIME [facility] Last Admin: 02/04/22 21:51 Dose: 1,000 mcg Documented By: YOVANI Digoxin (Digoxin 0.25 Mg Tablet) 0.25 mg PO DAILY [facility] Last Admin: 02/05/22 08:13 Dose: 0.25 mg Documented By: DIEGO Diphenhydramine HCl (Diphenhydramine Hcl 25 Mg Capsule) 25 mg PO TID PRN PRN Reason: itching Duloxetine HCl (Duloxetine Hcl 60 Mg Capsule.) 60 mg PO BEDTIME [facility] Last Admin: 02/04/22 21:51 Dose: 60 mg Documented By: YOVANI Ceftriaxone Sodium 1 gm/ (Sodium Chloride) 50 mls @ 100 mls/hr IV Q24H [facility] Last Infusion: 02/05/22 08:13 Dose: 0 mls/hr Documented By: DIEGO Sodium Chloride (Ns) 1,000 mls @ 75 mls/hr IVCONT .[id number] [facility] Last Admin: 02/05/22 02:14 Dose: 75 mls/hr Documented By: YOVANI Loperamide HCl (Loperamide Hcl 2 Mg Capsule) 2 mg PO Q4H PRN PRN Reason: Diarrhea Magnesium Oxide (Magnesium Oxide 400 Mg Tablet) 400 mg PO BIDPC [facility] Last Admin: 02/05/22 07:37 Dose: 400 mg Documented By: DIEGO Pharmacy Consult (Consult Rx Perform Med Rec) 1 each MISCELLANE ONCE PRN PRN Reason: Consult order Sodium Chloride (0.9 % Sodium Chloride Flush 3 Ml Syringe) 3 ml IVFLUSH QSHIFT [facility] Last Admin: 02/05/22 07:44 Dose: Not Given Documented By: DIEGO Non-Admin Reason: IV Running Vitamin D (Cholecalciferol (Vitamin D3) 25 Mcg Tablet) 25 mcg PO DAILY [facility] Last Admin: 02/05/22 08:13 Dose: 25 mcg Documented By: DIEGO Labs CBC & Chem 7: 02/05/22 06:20 02/05/22 06:20 Labs: Laboratory Results - last 24 hr 02/04/22 02/05/22 02/05/22 14:48 06:20 06:20 MCV 91.1 MCH 29.8 MCHC 32.7 RDW 20.4 H Plt Count 47 L MPV 10.9 Absolute Nucleated RBC 0.000 Nucleated RBC % (auto) 0.0 Anion Gap 11 L Estim Creat Clear Calc 83.2 Estimated GFR > 60 Fasting Glucose 102 H Calcium 7.0 L D Magnesium 1.4 L* C. difficile Tox B Gene NEGATIVE Blood Type Antibody Screen Crossmatch 02/05/22 08:04 MCV MCH MCHC RDW Plt Count MPV Absolute Nucleated RBC Nucleated RBC % (auto) Anion Gap Estim Creat Clear Calc Estimated GFR Fasting Glucose Calcium Magnesium C. difficile Tox B Gene Blood Type A Positive Antibody Screen NEGATIVE Crossmatch See Detail Microbiology Microbiology Results: Microbiology 02/04/22 06:19 Blood Culture - Preliminary Blood - Venous Gram negative kristal 02/04/22 06:14 Blood Culture - Preliminary Blood - Venous Gram negative kristal Assessment and Plan (1) Abdominal pain: Status: Acute Plan 67F pmh atrial tach, hfpef, breast cancer, obesity, presented with chills sepsis in patient with breast cancer on chemotherapy likely uti vs GI, blood growing GNR cdif negative, follow up stool pcr continue rocephin, follow up cultures pancytopneia with worsening anemia due to chemo transfusing prbc, monitor cbc hypokalemia and hypomagnesemia replace and monitor atrial tach continue dig anxiety cymbalta hfpef hold lasix, monitor obesity weight loss dvt prophylaxis - mechancial due to thrombocytopenia full code reason for continued hospitalization: awaiting defervesence Quality Stroke Does the patient have a stroke diagnosis?: No VTE Prior VTE?: No VTE Risk Level:: Medical - moderate - high VTE Device Contraindication: N/A - Device Ordered VTE Drug Contraindication: Treatment Not Indicated
--- NOTE | 2022-02-05 09:51 | PC.NURSE ---
Blood transfusion started.
--- NOTE | 2022-02-05 10:06 | PC.NURSE ---
No transfusion reaction note. PT denies any pain, SOB, CP, and chills. Will continue to observe.
[2022-02-05] MEDS: Magnesium Sulfate/H2O 2 GM/50 ML PIGGYBACK IV (10:11)
[2022-02-05] MEDS: Potassium Chloride ER 20 MEQ TAB.ER.PRT 40 MEQ PO (10:46)
--- NOTE | 2022-02-05 10:51 | PC.NURSE ---
PT reported IV insertion pain to left arm. IV removed.
[2022-02-05] MEDS: Acetaminophen 325 MG TABLET 650 MG PO (10:58)
[2022-02-05 11:23] LABS: Campylobacter Not Detected (Not Detect.); Cryptosporidium Not Detected (Not Detect.); Cyclospora cayetanensis Not Detected (Not Detect.); E. coli EAEC Not Detected (Not Detect.); E. coli EPEC Not Detected (Not Detect.); E. coli ETEC Detected (Not Detect.); E. coli STEC Not Detected (Not Detect.); Entamoeba histolytica Not Detected (Not Detect.); Giardia lamblia Not Detected (Not Detect.); Plesiomonas shigelloides Not Detected (Not Detect.); Salmonella Not Detected (Not Detect.); Shigella sp./EIEC Not Detected (Not Detect.); Vibrio Not Detected (Not Detect.); Vibrio Cholerae Not Detected (Not Detect.); Yersinia enterocolitica Not Detected (Not Detect.)
[2022-02-05 11:24] LABS: Adenovirus F 40/41 Not Detected (Not Detect.); Astrovirus Not Detected (Not Detect.); Rotavirus A Not Detected (Not Detect.); Sapovirus Not Detected (Not Detect.)
--- NOTE | 2022-02-05 11:24 | MHC.IC ---
Notified by Microbiology that patient is positive for Norovirus, placed on strict Contact precautions to include gowns & gloves, hand washing and cleaning of patient equipment with bleach.
[2022-02-05 11:25] LABS: Norovirus GI/GII Detected (Not Detect.)
--- NOTE | 2022-02-05 13:40 | PC.NURSE ---
PT 1 assist to bedside commode.
--- NOTE | 2022-02-05 16:31 | PC.NURSE ---
patient medicated per order float nurse
[2022-02-05] MEDS: DULoxetine HCl 60 MG CAPSULE.DR PO (21:12)
[2022-02-05] MEDS: cloNIDine HCL 0.2 MG TABLET PO (21:12)
[2022-02-05] MEDS: Cyanocobalamin (Vitamin B-12) 1,000 MCG TABLET 1000 MCG PO (21:12)
--- NOTE | 2022-02-05 21:41 | PC.NURSE ---
Assumed care of pt. at 1900. Pt. sleeping at that time. Pt. called nurses station as she'd had an accident . Pt. bedding and clothing changed and pt. cleaned up from a moderate runny bm. Pt. medicated with night meds and adjusted bed for comfort. Pt. asleep at 21:42.
[2022-02-06] MEDS: 0.9 % Sodium Chloride 1,000 ML 75 ML IVCONT (04:24)
--- NOTE | 2022-02-06 04:25 | PC.NURSE ---
pt had a loose stool accident, commode was set up by the bed side if she can get up in time to make it.. cream was also provided redness on her buttock, pt was able to make it to the commode she had 600 cc of liquid stool in hat
[2022-02-06 06:36] LABS: Hematocrit 22.8 % (37.0-47.0); Hemoglobin 7.5 g/dl (12.0-16.0); Mean Corpuscular HGB Conc 32.9 g/dl (31.0-35.0); Mean Corpuscular Hemoglobin 30.2 pg (27.0-33.0); Mean Corpuscular Volume 91.9 fL (80.0-98.0); Red Blood Count 2.48 X10*6/uL (4.20-5.50); White Blood Count 4.2 X10*3/uL (4.8-10.8)
[2022-02-06 06:37] LABS: Platelet Count 62 X10*3/uL (160-400)
[2022-02-06] MEDS: cefTRIAXone sodium 1 GM in 0.9 % Sodium Chloride 50 ML IV (07:12)
[2022-02-06 07:16] LABS: Anion Gap 8 (12-20); Blood Urea Nitrogen 9 mg/dL (9-16); Carbon Dioxide 23 mmol/L (22-29); Chloride 104 mmol/L (96-108); Creatinine Clr Calc Pharmacy 86.9; Estimated Glomerular Filt Rate > 60; Glucose Fasting 99 mg/dL (60-99); Potassium 2.9 mmol/L (3.3-5.1); Sodium 132 mmol/L (135-145)
[2022-02-06 07:26] VITALS: BP 163/85; PULSE 94; RESP 23; O2SAT 97
--- NOTE | 2022-02-06 07:47 | PC.NURSE ---
PT switched over to hospital bed.
[2022-02-06] MEDS: Digoxin 0.25 MG TABLET PO (09:19)
[2022-02-06] MEDS: Potassium Chloride Packet 20 MEQ PACKET 40 MEQ PO (09:20)
[2022-02-06] MEDS: Cholecalciferol (Vitamin D3) 25 MCG TABLET PO (09:20)
[2022-02-06] MEDS: Calcium + Vitamin D 250 MG TABLET 500 MG PO (09:20)
[2022-02-06] MEDS: Magnesium Oxide 400 MG TABLET PO ×2 (09:20→16:34)
--- NOTE | 2022-02-06 09:25 | PC.NURSE ---
PT resting quietly, no apparent distress. Denies pain, SOB, headache or CP. Meds given as documented.
--- NOTE | 2022-02-06 11:45 | HO.PM.IMPN ---
Subjective Subjective Date of Service: 02/06/22 Interval History: the patient was seen and evaluated this morning Laying in bed, feels better but having diarrhea culture growing klebsiella No reported other overnight events. Systemic review: No fever, chills but has generalized weakness No chest pain, palpitation No shortness of breath or coughing No abdominal pain, but having diarrhea No urinary symptoms No reported rash Physical Exam Vital Signs: Vital Signs: Last Vital Signs Temp 98.8 F 02/05/22 21:39 Pulse 94 02/06/22 07:26 Resp 23 H 02/06/22 07:26 BP 163/85 H 02/06/22 07:26 Pulse Ox 97 02/06/22 07:26 O2 Del Method 02/06/22 07:26 O2 Flow Rate 2 02/05/22 10:20 BMI result Body Mass Index 35.4 Const: Other: Constitutional : Awake, interactive, not in distress Neck : Normal inspection, Supple Cardiovascular : RRR, no JVP, no lower extremity edema Respiratory : good bilateral air entry, no crackles, wheezes or rhonchi Gastrointestinal: soft, lax, Normal bowel sounds, Non tender Skin : Warm, Dry Neurological : Alert & oriented x3, No focal deficit Objective Data Active Medications Acetaminophen (Acetaminophen 325 Mg Tablet) 650 mg PO Q6H PRN PRN Reason: fever Last Admin: 02/05/22 10:58 Dose: 650 mg Documented By: DIEGO Calcium Carbonate/Cholecalciferol (Calcium + Vitamin D 250 Mg Tablet) 500 mg PO DAILY [facility] Last Admin: 02/06/22 09:20 Dose: 500 mg Documented By: DIEGO Clonidine HCl (Clonidine Hcl 0.2 Mg Tablet) 0.2 mg PO BEDTIME [facility]; Protocol Last Admin: 02/05/22 21:12 Dose: 0.2 mg Documented By: KENDALL Cyanocobalamin (Cyanocobalamin (Vitamin B-12) 1,000 Mcg Tablet) 1,000 mcg PO BEDTIME [facility] Last Admin: 02/05/22 21:12 Dose: 1,000 mcg Documented By: KENDALL Digoxin (Digoxin 0.25 Mg Tablet) 0.25 mg PO DAILY [facility] Last Admin: 02/06/22 09:19 Dose: 0.25 mg Documented By: DIEGO Diphenhydramine HCl (Diphenhydramine Hcl 25 Mg Capsule) 25 mg PO TID PRN PRN Reason: itching Duloxetine HCl (Duloxetine Hcl 60 Mg Capsule.Dr) 60 mg PO BEDTIME [facility] Last Admin: 02/05/22 21:12 Dose: 60 mg Documented By: KENDALL Ceftriaxone Sodium 1 gm/ (Sodium Chloride) 50 mls @ 100 mls/hr IV Q24H [facility] Last Infusion: 02/06/22 07:48 Dose: 100 mls/hr Documented By: DIEGO Loperamide HCl (Loperamide Hcl 2 Mg Capsule) 2 mg PO Q4H PRN PRN Reason: Diarrhea Magnesium Oxide (Magnesium Oxide 400 Mg Tablet) 400 mg PO BIDPC [facility] Last Admin: 02/06/22 09:20 Dose: 400 mg Documented By: DIEGO Pharmacy Consult (Consult Rx Perform Med Rec) 1 each MISCELLANE ONCE PRN PRN Reason: Consult order Sodium Chloride (0.9 % Sodium Chloride Flush 3 Ml Syringe) 3 ml IVFLUSH QSHIFT [facility] Last Admin: 02/06/22 07:19 Dose: Not Given Documented By: DIEGO Non-Admin Reason: IV Running Vitamin D (Cholecalciferol (Vitamin D3) 25 Mcg Tablet) 25 mcg PO DAILY [facility] Last Admin: 02/06/22 09:20 Dose: 25 mcg Documented By: DIEGO Labs CBC & Chem 7: 02/06/22 06:20 02/06/22 06:20 Labs: Laboratory Results - last 24 hr 02/05/22 02/06/22 02/06/22 08:04 06:20 06:20 MCV 91.9 MCH 30.2 MCHC 32.9 RDW 20.0 H Plt Count 62 L D MPV 12.0 Absolute Nucleated RBC 0.000 Nucleated RBC % (auto) 0.0 Anion Gap 8 L Estim Creat Clear Calc 86.9 Estimated GFR > 60 Fasting Glucose 99 Calcium 7.0 L Crossmatch See Detail Microbiology Microbiology Results: Microbiology 02/04/22 06:19 Blood Culture - Final Blood - Venous Klebsiella pneumoniae 02/04/22 06:14 Blood Culture - Final Blood - Venous Klebsiella pneumoniae 02/04/22 Unknown Urine Culture - Final Urine clean catch - Urine delgado top Klebsiella pneumoniae Assessment and Plan (1) UTI (urinary tract infection): Status: Acute (2) Bacteremia due to Klebsiella pneumoniae: Status: Acute (3) Acute hypokalemia: Status: Acute Plan 67F pmh atrial tach, hfpef, breast cancer, obesity, presented with chills sepsis in patient with breast cancer on chemotherapy 2/2 Klebsiella Bacteremia from UTI cdif negative follow up stool pcr continue rocephin Immodium as needed for diarrhea pancytopneia with worsening anemia due to chemo improving transfusing prbc, monitor cbc hypokalemia and hypomagnesemia replace and monitor atrial tach continue dig anxiety cymbalta hfpef hold lasix, monitor obesity weight loss dvt prophylaxis - mechancial due to thrombocytopenia full code reason for continued hospitalization: Pending physical improvement and resolution of diarrhea Quality Stroke Does the patient have a stroke diagnosis?: No VTE Prior VTE?: No VTE Risk Level:: Medical - moderate - high VTE Device Contraindication: N/A - Device Ordered VTE Drug Contraindication: Treatment Not Indicated
[2022-02-06 13:21] VITALS: BMI 36.9
--- NOTE | 2022-02-06 13:35 | PC.NURSE ---
report received form ED RN, pt up to the floor at 1320. Admission assessment complete, call koehler within reach, bed alarm on, safety precautions taken.
[2022-02-06 15:04] VITALS: BP 108/52; PULSE 90; RESP 18; TEMP 36.2; O2SAT 94
[2022-02-06] MEDS: 0.9 % Sodium Chloride Flush 3 ML SYRINGE IVFLUSH (16:34)
[2022-02-06] MEDS: DULoxetine HCl 60 MG CAPSULE.DR PO (20:53)
[2022-02-06] MEDS: Cyanocobalamin (Vitamin B-12) 1,000 MCG TABLET 1000 MCG PO (20:53)
[2022-02-06] MEDS: cloNIDine HCL 0.2 MG TABLET PO (20:53)
[2022-02-07] VITALS: BP 123/58; PULSE 80; RESP 18; TEMP 37.4; O2SAT 98
[2022-02-07] MEDS: 0.9 % Sodium Chloride Flush 3 ML SYRINGE IVFLUSH ×3 (00:39→20:03)
[2022-02-07 06:20] LABS: Hemoglobin 7.6 g/dl (12.0-16.0); Mean Corpuscular Hemoglobin 30.4 pg (27.0-33.0); Mean Platelet Volume 10.9 fL (9.4-12.3); Red Cell Distribution Width 19.9 % (11.0-16.0); White Blood Count 5.2 X10*3/uL (4.8-10.8)
[2022-02-07 06:21] LABS: Platelet Count 90 X10*3/uL (160-400)
[2022-02-07 07:21] LABS: Anion Gap 9 (12-20); Blood Urea Nitrogen 7 mg/dL (9-16); Calcium 7.3 mg/dL (8.4-10.2); Carbon Dioxide 23 mmol/L (22-29); Chloride 103 mmol/L (96-108); Creatinine Clr Calc Pharmacy 94.4; Estimated Glomerular Filt Rate > 60; Glucose Random 97 mg/dL (60-115); Potassium 3.1 mmol/L (3.3-5.1); Sodium 132 mmol/L (135-145)
[2022-02-07 08:00] VITALS: BP 118/66; PULSE 92; RESP 20; TEMP 35.9; O2SAT 98
[2022-02-07] MEDS: Potassium Chloride ER 20 MEQ TAB.ER.PRT 40 MEQ PO (09:08)
[2022-02-07] MEDS: Digoxin 0.25 MG TABLET PO (09:08)
[2022-02-07] MEDS: cefTRIAXone sodium 1 GM in 0.9 % Sodium Chloride 50 ML IV (09:09)
[2022-02-07] MEDS: Cholecalciferol (Vitamin D3) 25 MCG TABLET PO (09:09)
[2022-02-07] MEDS: Calcium + Vitamin D 250 MG TABLET 500 MG PO (09:09)
[2022-02-07] MEDS: Magnesium Oxide 400 MG TABLET PO ×2 (09:09→16:54)
[2022-02-07 10:34] LABS: Magnesium 1.9 mg/dL (1.6-2.6)
[2022-02-07 11:41] VITALS: BP 118/66; PULSE 92; O2SAT 98
--- NOTE | 2022-02-07 15:23 | HO.PM.IMPN ---
Subjective Subjective Date of Service: 02/07/22 Interval History: No fever No urinary symptoms No N/V Ongoing diarrhea Feels tired Review of Systems Review of Systems: Yes all other systems are reviewed and are negative Physical Exam Vital Signs: Vital Signs: Last Vital Signs Temp 96.7 F L 02/07/22 08:00 Pulse 92 02/07/22 11:41 Resp 20 02/07/22 08:00 BP 118/66 02/07/22 11:41 Pulse Ox 98 02/07/22 11:41 O2 Del Method 02/07/22 08:00 O2 Flow Rate 2 02/05/22 10:20 BMI result Body Mass Index 36.9 Gen: in no acute distress HEENT: sclera anicteric, moist/pale mucus membranes Neck: supple Lungs: clear to auscultation bilaterally Heart: regular rate and rhythm, no murmurs Abd: soft, non-tender, non-distended Ext: no edema Skin: warm/well-perfused Neuro: alert and oriented x3, no focal findings Psych: appropriate affect Objective Data Active Medications Acetaminophen (Acetaminophen 325 Mg Tablet) 650 mg PO Q6H PRN PRN Reason: fever Last Admin: 02/05/22 10:58 Dose: 650 mg Documented By: DIEGO Calcium Carbonate/Cholecalciferol (Calcium + Vitamin D 250 Mg Tablet) 500 mg PO DAILY [facility] Last Admin: 02/07/22 09:09 Dose: 500 mg Documented By: TAL Clonidine HCl (Clonidine Hcl 0.2 Mg Tablet) 0.2 mg PO BEDTIME [facility]; Protocol Last Admin: 02/06/22 20:53 Dose: 0.2 mg Documented By: FLORY Cyanocobalamin (Cyanocobalamin (Vitamin B-12) 1,000 Mcg Tablet) 1,000 mcg PO BEDTIME [facility] Last Admin: 02/06/22 20:53 Dose: 1,000 mcg Documented By: FLORY Digoxin (Digoxin 0.25 Mg Tablet) 0.25 mg PO DAILY [facility] Last Admin: 02/07/22 09:08 Dose: 0.25 mg Documented By: TAL Diphenhydramine HCl (Diphenhydramine Hcl 25 Mg Capsule) 25 mg PO TID PRN PRN Reason: itching Duloxetine HCl (Duloxetine Hcl 60 Mg Capsule.) 60 mg PO BEDTIME [facility] Last Admin: 02/06/22 20:53 Dose: 60 mg Documented By: FLORY Ceftriaxone Sodium 1 gm/ (Sodium Chloride) 50 mls @ 100 mls/hr IV Q24H [facility] Last Infusion: 02/07/22 11:26 Dose: 100 mls/hr Documented By: TAL Loperamide HCl (Loperamide Hcl 2 Mg Capsule) 2 mg PO Q4H PRN PRN Reason: Diarrhea Magnesium Oxide (Magnesium Oxide 400 Mg Tablet) 400 mg PO BIDPC [facility] Last Admin: 02/07/22 09:09 Dose: 400 mg Documented By: TAL Pharmacy Consult (Consult Rx Perform Med Rec) 1 each MISCELLANE ONCE PRN PRN Reason: Consult order Sodium Chloride (0.9 % Sodium Chloride Flush 3 Ml Syringe) 3 ml IVFLUSH QSHIFT [facility] Last Admin: 02/07/22 09:10 Dose: Not Given Documented By: TAL Non-Admin Reason: Unable to Scan Barcode Vitamin D (Cholecalciferol (Vitamin D3) 25 Mcg Tablet) 25 mcg PO DAILY [facility] Last Admin: 02/07/22 09:09 Dose: 25 mcg Documented By: TAL Labs CBC & Chem 7: 02/07/22 06:10 02/07/22 06:10 Labs: Laboratory Results - last 24 hr 02/07/22 02/07/22 06:10 06:10 MCV 92.0 MCH 30.4 MCHC 33.0 RDW 19.9 H Plt Count 90 L D MPV 10.9 Absolute Nucleated RBC 0.000 Nucleated RBC % (auto) 0.0 Anion Gap 9 L Estim Creat Clear Calc 94.4 Estimated GFR > 60 Random Glucose 97 Calcium 7.3 L Magnesium 1.9 Assessment and Plan (1) UTI (urinary tract infection): Status: Acute (2) Bacteremia due to Klebsiella pneumoniae: Status: Acute (3) Acute hypokalemia: Status: Acute Plan hospital d#4 67yo F with atrial tachycardia, HFpEF, breast CA recently started chemotherapy, obesity presented with chills, admitted with sepsis from UTI/bacteremia # sepsis due to Klebsiella bacteremia/UTI - ceftriaxone d#4, ID consultation - GI PCR panel + for norovirus + ETEC, no Cdiff; loperamide prn diarrhea # pancytopenia - due to recent chemotherapy - transfused 2u pRBCs - monitor CBC # hypoK - replete; recheck in AM # hypoMg - repleted # atrial tachycardia - continue digoxin # anxiety - continue duloxetine # chronic HFpEF - hold furosemide # VTE ppx: SCDs due to low platelets # dispo: anticipate home with VNA In my clinical judgment, the patient requires continued inpatient hospitalization for the following reasons: IV ABX Quality Stroke Does the patient have a stroke diagnosis?: No VTE Prior VTE?: No VTE Risk Level:: Medical - moderate - high VTE Device Contraindication: N/A - Device Ordered VTE Drug Contraindication: Treatment Not Indicated
[2022-02-07 15:47] VITALS: BP 112/56; PULSE 89; RESP 17; TEMP 36.4; O2SAT 97
--- NOTE | 2022-02-07 15:58 | MHC.CM.PN ---
per rounds pt to go home with vna when dcd
[2022-02-07] MEDS: DULoxetine HCl 60 MG CAPSULE.DR PO (20:02)
[2022-02-07] MEDS: Cyanocobalamin (Vitamin B-12) 1,000 MCG TABLET 1000 MCG PO (20:02)
[2022-02-07] MEDS: cloNIDine HCL 0.2 MG TABLET PO (20:02)
[2022-02-07] MEDS: Loperamide HCl 2 MG CAPSULE PO (20:04)
--- NOTE | 2022-02-07 21:26 | W.PM.IDCN ---
History of Present Illness Data of Consult Service Date: 02/07/22 Requesting physician: Dwight Ramsey Primary Care Provider: THA Cast HPI Reason for consult: sepsis,Klebsiella pneumonia She presents with weakness and fever and chills for four days. She has Klebsiella pneumonia bacteremia and urinary same organism She has CT abdomen and pelvis unremarkable. She has had chemotherapy for breast cancer three weeks ago. Review of Systems Review of Systems: Yes all other systems are reviewed and are negative PMFSH Past Medical History Medical History Acute diastolic (congestive) heart failure Acute on chronic heart failure with preserved ejection fraction (HFpEF) Anemia Anxiety Atrial arrhythmia Breast calcification, right Breast cancer, right CHF (congestive heart failure) Colitis Dermatomyositis Encounter to establish care History of COVID-19 Hypertension Insomnia Invasive ductal carcinoma of right breast Lumbar degenerative disc disease Major depression, chronic Nonsustained supraventricular tachycardia Pain in both feet Pancolitis Pancytopenia Pedal edema Port-A-Cath in place Family History Family History Mother No problems noted. Father Breast cancer Bone cancer Brother Substance use disorder Paternal Aunt Breast cancer Family history: reviewed and not pertinent Surgical History Surgical History History of arthroscopic knee surgery History of section History of cholecystectomy History of fusion of cervical spine History of gastric bypass History of hysterectomy History of tonsillectomy Hx of colonoscopy Status post right breast lumpectomy Social History Social History Household Members: Family Housing: House Are you a primary patient care coordinator to a significant other at home: No Do you presently have visiting nurse or other home services: No Alcohol intake: former Patient Tobacco Use Status: Former Tobacco user Quit Date: 12 yrs ago Tobacco use type: Cigarette e-Cigarette/Vaping Use: Never Used Second Hand Smoke Exposure: No Advance Directives Date on File: 11/28/21 service: No Current occupational status: unemployed and retired Cognitive needs: Yes (cane) Hearing needs: No Vision needs: Yes (glasses) Meds Allergies Allergy/AdvReac Type Severity Reaction Status Date / Time No Known Allergies Allergy Verified 01/30/22 09:41 Active Medications: Current Medications Acetaminophen (Acetaminophen 325 Mg Tablet) 650 mg PO Q6H PRN PRN Reason: fever Last Admin: 02/05/22 10:58 Dose: 650 mg Calcium Carbonate/Cholecalciferol (Calcium + Vitamin D 250 Mg Tablet) 500 mg PO DAILY [facility] Last Admin: 02/07/22 09:09 Dose: 500 mg Clonidine HCl (Clonidine Hcl 0.2 Mg Tablet) 0.2 mg PO BEDTIME [facility]; Protocol Last Admin: 02/07/22 20:02 Dose: 0.2 mg Cyanocobalamin (Cyanocobalamin (Vitamin B-12) 1,000 Mcg Tablet) 1,000 mcg PO BEDTIME [facility] Last Admin: 02/07/22 20:02 Dose: 1,000 mcg Digoxin (Digoxin 0.25 Mg Tablet) 0.25 mg PO DAILY [facility] Last Admin: 02/07/22 09:08 Dose: 0.25 mg Diphenhydramine HCl (Diphenhydramine Hcl 25 Mg Capsule) 25 mg PO TID PRN PRN Reason: itching Duloxetine HCl (Duloxetine Hcl 60 Mg Capsule.Dr) 60 mg PO BEDTIME [facility] Last Admin: 02/07/22 20:02 Dose: 60 mg Ceftriaxone Sodium 1 gm/ (Sodium Chloride) 50 mls @ 100 mls/hr IV Q24H [facility] Last Infusion: 02/07/22 11:26 Dose: Infused Loperamide HCl (Loperamide Hcl 2 Mg Capsule) 2 mg PO Q4H PRN PRN Reason: Diarrhea Last Admin: 02/07/22 20:04 Dose: 2 mg Magnesium Oxide (Magnesium Oxide 400 Mg Tablet) 400 mg PO BIDPC [facility] Last Admin: 02/07/22 16:54 Dose: 400 mg Pharmacy Consult (Consult Rx Perform Med Rec) 1 each MISCELLANE ONCE PRN PRN Reason: Consult order Sodium Chloride (0.9 % Sodium Chloride Flush 3 Ml Syringe) 3 ml IVFLUSH QSHIFT [facility] Last Admin: 02/07/22 20:03 Dose: 3 ml Vitamin D (Cholecalciferol (Vitamin D3) 25 Mcg Tablet) 25 mcg PO DAILY [facility] Last Admin: 02/07/22 09:09 Dose: 25 mcg Home Medications Medication Instructions Recorded Confirmed Last Taken Type cyanocobalamin (vitamin B-12) 1,000 mcg PO BEDTIME 10/12/21 02/04/22 02/02/22 History 1,000 mcg capsule calcium carbonate 600 mg-vitamin 1 tab PO DAILY 10/31/21 02/04/22 02/02/22 History D3 10 mcg (400 unit) tablet cholecalciferol (vitamin D3) 25 25 mcg PO DAILY 11/23/21 02/04/22 02/02/22 History mcg (1,000 unit) tablet duloxetine 60 mg capsule,delayed 60 mg PO BEDTIME 01/18/22 02/04/22 02/02/22 History release (Cymbalta) furosemide 20 mg tablet (Lasix) 20 mg PO MOWEFR 02/04/22 02/04/22 02/02/22 History hydrocortisone 2.5 % topical cream 1 appl [place] BID PRN Hemorrhoids 02/04/22 02/04/22 Unknown History with perineal applicator (Proctozone-HC) immune glob,gamma(IgG) 10 45 g IV QMONTH 02/04/22 02/04/22 01/27/22 History [id number] 0 to 50 mcg/mL IV solution (Gammagard S-D (IgA < 1 mcg/mL)) prednisone 10 mg tablet 9 tab PO QAM 02/04/22 02/04/22 02/02/22 History Physical Exam Vital Signs: Vital Signs: Last Vital Signs Temp 97.5 F 02/07/22 15:47 Pulse 89 02/07/22 15:47 Resp 17 02/07/22 15:47 BP 112/56 L 02/07/22 15:47 Pulse Ox 97 02/07/22 15:47 O2 Del Method 02/07/22 15:47 O2 Flow Rate 2 02/05/22 10:20 BMI result Body Mass Index 36.9 Const: General: cooperative HEENT: Head: Yes normal to inspection Face and sinus: Yes normal facial exam Mouth: Normal oral and palatal mucosa present Teeth and gingiva: dentition normal Eyes: General: appearance normal, both eyes and all related structures Pupils: Equal, round and reactive pupils present Resp: Effort & Inspection: normal respiratory effort Cardio: Rate: regular rate Rhythm: regular rhythm GI: Palpation (GI): Soft to palpation and nontender : General: Yes no CVA tenderness Back/Spine/Pelvis: Back: no CVA tenderness Skin: General skin exam: no rashes or lesions noted Neuro: General: moves all extremities Cranial nerves: Yes Equal, round and reactive pupils present Extrem: General: Yes normal to inspection Psych: Appearance: grossly normal Results Labs CBC & Chem 7: 02/07/22 06:10 02/07/22 06:10 Labs: Short CBC 02/07/22 Range/Units 06:10 WBC 5.2 (4.8-10.8) X10*3/uL Hgb 7.6 L (12.0-16.0) g/dl Hct 23.0 L (37.0-47.0) % Plt Count 90 L D (160-400) X10*3/uL BMP 02/07/22 06:10 Sodium 132 L Potassium 3.1 L Chloride 103 Carbon Dioxide 23 BUN 7 L Creatinine 0.65 Calcium 7.3 L Microbiology Microbiology Results: Microbiology 02/04/22 06:19 Blood - Venous Blood Culture - Final Klebsiella pneumoniae 02/04/22 06:14 Blood - Venous Blood Culture - Final Klebsiella pneumoniae 02/04/22 Unknown Urine clean catch - Urine delgado top Urine Culture - Final Klebsiella pneumoniae Assessment and Plan (1) Bacteremia due to Klebsiella pneumoniae: Status: Acute This is due to urinary infection. She may have antibiotic associated colitis (2) Abdominal pain: Status: Acute Plan Would continue Ceftriaxone daily, day 4/7 likely or finish with Ceftin. Symptomatic treatment for diarrhea.
[2022-02-07 23:06] VITALS: BP 108/50; PULSE 69; RESP 17; TEMP 36.1; O2SAT 95
[2022-02-08 07:13] VITALS: BP 113/64; PULSE 80; RESP 17; TEMP 36.8; O2SAT 100
[2022-02-08 07:14] LABS: Basophils Percent Auto 0.2 % (0-2); Hematocrit 23.4 % (37.0-47.0); Hemoglobin 7.6 g/dl (12.0-16.0); Imm Gran Pct Auto 1.8 % (0.0-0.4); Lymphocytes Absolute Auto 1.1 X10*3/uL (1.2-4.9); Lymphocytes Percent Auto 19.1 % (20-40); MANUAL DIFF FLAG SCAN; Mean Corpuscular HGB Conc 32.5 g/dl (31.0-35.0); Mean Corpuscular Hemoglobin 30.2 pg (27.0-33.0); Mean Corpuscular Volume 92.9 fL (80.0-98.0); Monocytes Absolute Auto 0.4 X10*3/uL (0.1-1.2); Monocytes Percent Auto 7.5 % (2-11); Neutrophils Percent Auto 71.4 % (45-73); PLT CLUMP 1; Red Blood Count 2.52 X10*6/uL (4.20-5.50); Red Cell Distribution Width 20.5 % (11.0-16.0); SCAN SMEAR FLAG 1
[2022-02-08 07:30] LABS: Anion Gap 10 (12-20); Blood Urea Nitrogen 6 mg/dL (9-16); Calcium 7.6 mg/dL (8.4-10.2); Carbon Dioxide 23 mmol/L (22-29); Chloride 106 mmol/L (96-108); Creatinine Clr Calc Pharmacy 94.4; Estimated Glomerular Filt Rate > 60; Glucose Random 86 mg/dL (60-115); Magnesium 1.8 mg/dL (1.6-2.6); Potassium 3.2 mmol/L (3.3-5.1); Sodium 136 mmol/L (135-145)
[2022-02-08 08:22] LABS: Platelet Count 138 X10*3/uL (160-400); White Blood Count 5.6 X10*3/uL (4.8-10.8)
[2022-02-08 08:23] LABS: SLIDE REVIEW VERIFIED
[2022-02-08] MEDS: cefTRIAXone sodium 1 GM in 0.9 % Sodium Chloride 50 ML IV (09:49)
[2022-02-08] MEDS: Cholecalciferol (Vitamin D3) 25 MCG TABLET PO (09:49)
[2022-02-08] MEDS: Calcium + Vitamin D 250 MG TABLET 500 MG PO (09:49)
[2022-02-08] MEDS: Magnesium Oxide 400 MG TABLET PO ×2 (09:49→16:31)
[2022-02-08] MEDS: Digoxin 0.25 MG TABLET PO (09:49)
[2022-02-08] MEDS: 0.9 % Sodium Chloride Flush 3 ML SYRINGE IVFLUSH ×2 (09:50→21:17)
[2022-02-08 10:55] VITALS: BP 113/64; PULSE 80; O2SAT 100
[2022-02-08] MEDS: Potassium Chloride ER 20 MEQ TAB.ER.PRT 40 MEQ PO (11:53)
--- NOTE | 2022-02-08 12:10 | P.PNIM_ITS ---
Subjective Subjective Date of Service: 02/08/22 Interval History: No fever No urinary symptoms No N/V Ongoing diarrhea Feels tired Review of Systems Constitutional: see hpi Eyes: denies blurry vision ENT: denies sore throat CVS: denies chest pain Respiratory: Denies dyspnea GI: abdominal pain, diarrhea : denies dysuria MSK: denies neck pain Skin: denies rash Neuro: denies specific motor weakness Psych: denies suicidal ideation Endocrine: denies heat/cold intolerance Hematologic: denies easy bleeding Allergy: denies hives Cardiovascular Cardiovascular: Reports no additional cardiovascular complaints Respiratory Respiratory: Reports no additional respiratory complaints Gastrointestinal Gastrointestinal: Reports diarrhea Physical Exam Vital Signs: Vital Signs: Last Vital Signs Temp 98.2 F 02/08/22 07:13 Pulse 80 02/08/22 10:55 Resp 17 02/08/22 07:13 BP 113/64 02/08/22 10:55 Pulse Ox 100 02/08/22 10:55 O2 Del Method 02/08/22 07:13 O2 Flow Rate 2 02/05/22 10:20 BMI result Body Mass Index 36.9 Const: Other: Constitutional : Awake, interactive, not in distress Neck : Normal inspection, Supple Cardiovascular : RRR, no JVP, no lower extremity edema Respiratory : good bilateral air entry, no crackles, wheezes or rhonchi Gastrointestinal: soft, lax, Normal bowel sounds, Non tender Skin : Warm, Dry Neurological : Alert & oriented x3, No focal deficit Objective Data Active Medications Acetaminophen (Acetaminophen 325 Mg Tablet) 650 mg PO Q6H PRN PRN Reason: fever Last Admin: 02/05/22 10:58 Dose: 650 mg Documented By: DIEGO Calcium Carbonate/Cholecalciferol (Calcium + Vitamin D 250 Mg Tablet) 500 mg PO DAILY [facility] Last Admin: 02/08/22 09:49 Dose: 500 mg Documented By: KELLY Clonidine HCl (Clonidine Hcl 0.2 Mg Tablet) 0.2 mg PO BEDTIME [facility]; Protocol Last Admin: 02/07/22 20:02 Dose: 0.2 mg Documented By: RICHARD Cyanocobalamin (Cyanocobalamin (Vitamin B-12) 1,000 Mcg Tablet) 1,000 mcg PO BEDTIME [facility] Last Admin: 02/07/22 20:02 Dose: 1,000 mcg Documented By: RICHARD Digoxin (Digoxin 0.25 Mg Tablet) 0.25 mg PO DAILY [facility] Last Admin: 02/08/22 09:49 Dose: 0.25 mg Documented By: KELLY Diphenhydramine HCl (Diphenhydramine Hcl 25 Mg Capsule) 25 mg PO TID PRN PRN Reason: itching Duloxetine HCl (Duloxetine Hcl 60 Mg Capsule.Dr) 60 mg PO BEDTIME [facility] Last Admin: 02/07/22 20:02 Dose: 60 mg Documented By: RICHARD Ceftriaxone Sodium 1 gm/ (Sodium Chloride) 50 mls @ 100 mls/hr IV Q24H [facility] Last Infusion: 02/08/22 10:41 Dose: 0 mls/hr Documented By: KELLY Loperamide HCl (Loperamide Hcl 2 Mg Capsule) 2 mg PO Q4H PRN PRN Reason: Diarrhea Last Admin: 02/07/22 20:04 Dose: 2 mg Documented By: RICHARD Magnesium Oxide (Magnesium Oxide 400 Mg Tablet) 400 mg PO BIDPC [facility] Last Admin: 02/08/22 09:49 Dose: 400 mg Documented By: KELLY Pharmacy Consult (Consult Rx Perform Med Rec) 1 each MISCELLANE ONCE PRN PRN Reason: Consult order Sodium Chloride (0.9 % Sodium Chloride Flush 3 Ml Syringe) 3 ml IVFLUSH QSHIFT [facility] Last Admin: 02/08/22 09:50 Dose: 3 ml Documented By: KELLY Vitamin D (Cholecalciferol (Vitamin D3) 25 Mcg Tablet) 25 mcg PO DAILY [facility] Last Admin: 02/08/22 09:49 Dose: 25 mcg Documented By: KELLY Labs CBC & Chem 7: 02/08/22 06:09 02/08/22 06:09 Labs: Laboratory Results - last 24 hr 02/08/22 02/08/22 06:09 06:09 MCV 92.9 MCH 30.2 MCHC 32.5 RDW 20.5 H Plt Count 138 L D MPV Not Reportable Immature Gran % (Auto) 1.8 H Neut % (Auto) 71.4 Lymph % (Auto) 19.1 L [place] % (Auto) 7.5 Eos % (Auto) 0.0 Baso % (Auto) 0.2 Lymph # (Auto) 1.1 L [place] # (Auto) 0.4 Eos # (Auto) 0.0 Baso # (Auto) 0.0 Abs Immat Gran (auto) 0.10 H Absolute Neuts (auto) 4.0 Absolute Nucleated RBC 0.000 Nucleated RBC % (auto) 0.0 Smear Tech's Comments VERIFIED Anion Gap 10 L Estim Creat Clear Calc 94.4 Estimated GFR > 60 Random Glucose 86 Calcium 7.6 L Magnesium 1.8 Assessment and Plan (1) Bacteremia due to Klebsiella pneumoniae: Status: Acute (2) UTI (urinary tract infection): Status: Acute (3) Diarrhea: Status: Acute Plan hospital d#5 67yo F with atrial tachycardia, HFpEF, breast CA recently started chemotherapy, obesity presented with chills, admitted with sepsis from UTI/bacteremia # sepsis due to Klebsiella bacteremia/UTI - ceftriaxone d#5, ID consultation. D/c tomorrow on cefitin to complete 7 day course # Diarrhea - GI PCR panel + for norovirus + ETEC, no Cdiff; loperamide prn diarrhea - Resuscitating with IV fluids today # pancytopenia - due to recent chemotherapy - transfused 2u pRBCs - monitor CBC # hypoK - replete; recheck in AM # hypoMg - repleted # atrial tachycardia - continue digoxin # anxiety - continue duloxetine # chronic HFpEF - hold furosemide # VTE ppx: SCDs due to low platelets # dispo: anticipate home with [facility] tomorrow on cefitin In my clinical judgment, the patient requires continued inpatient hospitalization for the following reasons: IV ABX and IV fluids Quality Stroke Does the patient have a stroke diagnosis?: No VTE Prior VTE?: No VTE Risk Level:: Medical - moderate - high VTE Device Contraindication: N/A - Device Ordered VTE Drug Contraindication: Treatment Not Indicated
[2022-02-08] MEDS: 0.9 % Sodium Chloride 1,000 ML 999 ML IV (13:08)
[2022-02-08] MEDS: Potassium Chloride/H20 10 MEQ/100 ML PIGGYBACK 100 MEQ IV ×4 (13:08→18:04)
[2022-02-08 15:38] VITALS: BP 120/56; PULSE 86; RESP 16; TEMP 36.2; O2SAT 100
[2022-02-08 19:43] VITALS: BP 129/67; PULSE 83; RESP 16; TEMP 36.6; O2SAT 97
[2022-02-08] MEDS: cloNIDine HCL 0.2 MG TABLET PO (19:44)
[2022-02-08] MEDS: Cyanocobalamin (Vitamin B-12) 1,000 MCG TABLET 1000 MCG PO (19:44)
[2022-02-08] MEDS: DULoxetine HCl 60 MG CAPSULE.DR PO (19:44)
[2022-02-08 23:41] VITALS: BP 103/59; PULSE 79; RESP 20; TEMP 36.2; O2SAT 99
[2022-02-09 06:08] LABS: MANUAL DIFF FLAG NO
[2022-02-09 06:21] LABS: Basophils Percent Auto 0.2 % (0-2); Hematocrit 23.2 % (37.0-47.0); Hemoglobin 7.4 g/dl (12.0-16.0); Imm Gran Abs Auto 0.16 X10*3/uL (0.00-0.03); Imm Gran Pct Auto 3.1 % (0.0-0.4); Lymphocytes Absolute Auto 1.1 X10*3/uL (1.2-4.9); Lymphocytes Percent Auto 21.1 % (20-40); Mean Corpuscular HGB Conc 31.9 g/dl (31.0-35.0); Mean Corpuscular Hemoglobin 30.1 pg (27.0-33.0); Mean Corpuscular Volume 94.3 fL (80.0-98.0); Mean Platelet Volume 10.5 fL (9.4-12.3); Monocytes Absolute Auto 0.4 X10*3/uL (0.1-1.2); Monocytes Percent Auto 7.4 % (2-11); Neutrophils Absolute Auto 3.5 x10*3/uL (2.0-8.3); Neutrophils Percent Auto 68.2 % (45-73); Platelet Count 183 X10*3/uL (160-400); Red Blood Count 2.46 X10*6/uL (4.20-5.50); Red Cell Distribution Width 20.7 % (11.0-16.0); White Blood Count 5.1 X10*3/uL (4.8-10.8)
[2022-02-09 06:40] LABS: Anion Gap 9 (12-20); Blood Urea Nitrogen 6 mg/dL (9-16); Calcium 7.6 mg/dL (8.4-10.2); Carbon Dioxide 23 mmol/L (22-29); Chloride 106 mmol/L (96-108); Creatinine Clr Calc Pharmacy 88.8; Estimated Glomerular Filt Rate > 60; Glucose Random 89 mg/dL (60-115); Potassium 3.5 mmol/L (3.3-5.1); Sodium 134 mmol/L (135-145)
[2022-02-09 07:51] VITALS: BP 130/61; PULSE 78; RESP 17; TEMP 36.8; O2SAT 98
[2022-02-09] MEDS: Digoxin 0.25 MG TABLET PO (09:08)
[2022-02-09] MEDS: Cholecalciferol (Vitamin D3) 25 MCG TABLET PO (09:08)
[2022-02-09] MEDS: Calcium + Vitamin D 250 MG TABLET 500 MG PO (09:08)
[2022-02-09] MEDS: Magnesium Oxide 400 MG TABLET PO (09:11)
[2022-02-09] MEDS: cefTRIAXone sodium 1 GM in 0.9 % Sodium Chloride 50 ML IV (09:11)
[2022-02-09] MEDS: 0.9 % Sodium Chloride Flush 3 ML SYRINGE IVFLUSH (09:30)
--- NOTE | 2022-02-09 11:30 | P.DS_ITS ---
DS: Providers Provider Date of Service: 02/09/22 Date of admission: 02/04/22 12:12 Primary care physician: THA Cast Consults: 02/07/22 08:43 Consult to Infectious Diseases Routine Consulting Provider: Faye Smith Reason for consultation: K pna bacteremia. immunosupressed DS: Diagnosis Discharge Diagnosis (1) Bacteremia due to Klebsiella pneumoniae: Status: Acute (2) UTI (urinary tract infection): Status: Acute (3) Diarrhea: Status: Acute DS: Summary Hospital Course Hospital Course: HPI from admission H&P: 67F pmh atrial tach, hfpef, breast cancer, obesity, presented with chills. patient is on chemotherapy for breast cancer, carboplatin/docetaxel/Herceptin/pertuzumab, last dose 01/18/22, s/p ivig 01/23- , started feeling ill 3 days ptp, complaining of fevers, chills, myalgias, water diarrhea, abd discomfort. sympotmst worsening so she came to ED. in ED noted to have fever 101.3, tachycardia, ua positive, CT abd, cxr unremarkable. Hospital Course: Pt was treated with iv rocephin. Her urine and blood cx returned positive for Klebsiella pneumoniae which was sensitive to ceftriaxone. With this treatment, her sepsis resolved and the patient improved dramatically. However her hospital course was complicated by persistent profuse diarrhea. She was tested for C diff which was negative. Her stool tested positive for ETEC E. Coli + norovirus. She was treated symptomatically with loperamide. Her diarrhea has improved dramatically with only 1-2 loose bowel movements daily. She has been encouraged to drink plenty of fluids upon discharge. She may take p.r.n. loperamide. In regards to her bacteremia and urinary tract infection, infectious Disease was consulted and recommended a a course of treatment with IV ceftriaxone and transitioned to oral Ceftin. She will be discharged on 5 more days of oral cefuroxime. Her Lasix was held due to the diarrhea will be held for an additional week from the of discharge. If her diarrhea resolves before then she may resume it sooner. Final Discharge diagnosis: 1. Sepsis due to Klebsiella urinary tract infection and bacteremia 2. Klebsiella bacteremia due to Klebsiella urinary tract infection 3. Pancytopenia 4. Hypokalemia 5 hypomagnesemia 6. Atrial tachycardia 7. Anxiety 8. Chronic heart failure with Preserved ejection fraction Time Spent with Patient Time attestation: Total time spent providing and/or coordinating discharge services: Discharge coordination time: Greater than 30 minutes Quality: Safe Use of Opioids Does Pt have an Active Cancer Diagnosis on the Problem List?: No Quality: Stroke Does the patient have a stroke diagnosis?: No Physical Exam 2 Vital Signs: Vital Signs: Last Vital Signs Temp 98.2 F 02/09/22 07:51 Pulse 78 02/09/22 07:51 Resp 17 02/09/22 07:51 BP 130/61 02/09/22 07:51 Pulse Ox 98 02/09/22 07:51 O2 Del Method 02/09/22 07:51 O2 Flow Rate 2 02/05/22 10:20 BMI result Body Mass Index 36.9 General - no acute distress, appears comfortable Cardiovascular - regular rate and rhythm, S1-S2 Lungs - normal respiratory effort, clear to auscultation bilaterally, no wheezing Abdomen - soft, nontender, no rebound or guarding Extremities - no edema bilaterally Neuro - awake and alert, no focal deficits DS: Data Data Completed and Pending Completed studies during hospitalization [Text1]: Procedures Excision of Descending Colon, Via Natural or Artificial Opening Endoscopic, Diagnostic (11/23/21) Transfusion of Nonautologous Red Blood Cells into Peripheral Vein, Percutaneous Approach (12/29/21) Labs on day of discharge: Laboratory Results - last 24 hr 02/09/22 02/09/22 05:58 05:58 WBC 5.1 RBC 2.46 L Hgb 7.4 L Hct 23.2 L MCV 94.3 MCH 30.1 MCHC 31.9 RDW 20.7 H Plt Count 183 D MPV 10.5 Immature Gran % (Auto) 3.1 H Neut % (Auto) 68.2 Lymph % (Auto) 21.1 [place] % (Auto) 7.4 Eos % (Auto) 0.0 Baso % (Auto) 0.2 Lymph # (Auto) 1.1 L [place] # (Auto) 0.4 Eos # (Auto) 0.0 Baso # (Auto) 0.0 Abs Immat Gran (auto) 0.16 H Absolute Neuts (auto) 3.5 Absolute Nucleated RBC 0.000 Nucleated RBC % (auto) 0.0 Sodium 134 L Potassium 3.5 Chloride 106 Carbon Dioxide 23 Anion Gap 9 L BUN 6 L Creatinine 0.69 Estim Creat Clear Calc 88.8 Estimated GFR > 60 Random Glucose 89 Calcium 7.6 L Discharge Plan Discharge Anticipated Discharge Date/Time: 02/09/22 11:33 Patient Disposition: Home, Self-Care Discharge Diagnosis: Bacteremia Diarrhea Referrals: Leslie Washington FNP [Primary Care Provider] - 1 Week Discharge Medications: New magnesium oxide 400 mg (241.3 mg magnesium) Tablet 400 mg PO BIDPC Qty: 60 0RF cefuroxime axetil 500 mg tablet 500 mg PO Q12H Qty: 10 0RF Continued clonidine HCl 0.2 mg tablet 0.2 mg PO BEDTIME Qty: 90 1RF alendronate 70 mg tablet 70 mg PO QWEEK Qty: 4 5RF cyanocobalamin (vitamin B-12) 1,000 mcg capsule 1,000 mcg PO BEDTIME digoxin 250 mcg (0.25 mg) Tablet 0.25 mg PO DAILY Qty: 30 0RF diphenhydramine HCl [Benadryl] 25 mg capsule 25 mg PO TID PRN (Reason: itching) Qty: 14 0RF duloxetine [Cymbalta] 60 mg capsule,delayed release(DR/EC) 60 mg PO BEDTIME Maginex 61 mg (615 mg) Tablet,Delayed Release (Dr/Ec) 61 mg PO DAILY Qty: 30 0RF cholecalciferol (vitamin D3) 25 mcg (1,000 unit) Tablet 25 mcg PO DAILY loperamide 2 mg Capsule 2 mg PO Q4H PRN (Reason: Diarrhea) Qty: 24 0RF prednisone 10 mg tablet 9 tab PO QAM hydrocortisone [Proctozone-HC] 2.5 % cream with perineal applicator 1 appl MD BID PRN (Reason: Hemorrhoids) Gammagard S-D (IgA < 1 mcg/mL) 10 gram recon soln 45 g IV QMONTH Rx Instructions: for 2 consecutive days every 30 days calcium carbonate-vitamin D3 600 mg-10 mcg (400 unit) tablet 1 tab PO DAILY potassium chloride [Klor-Con M20] 20 mEq tablet,ER particles/crystals 20 meq PO BID Qty: 60 4RF Held furosemide [Lasix] 20 mg tablet 20 mg PO MOWEFR Hold Instructions: Resume on 02/15/22. Discharge Orders: Discharge Order (Routine); Ordered 02/09/22 Ordered By: Omero Castillo Diet: Advance to usual diet Activity on Discharge: As tolerated Stand Alone Forms: Patient Portal Discharge page Care Plan Goals: To stay healthy and out of the hospital. Health Concerns: UTI / Bacteremia Diarrhea Plan of Treatment: Take Ceftin 500mg twice daily for 5 more days Take imodium as needed for diarrhea drink plenty of water hold your lasix for 1 week -- if your diarrhea stop before then, you may restart it f/u with PCP in 1-2 weeks f/u with oncology Assessment: see d/c summary
--- NOTE | 2022-02-09 11:44 | MHC.CM.PN ---
pt to be dcd home with [facility]
[2022-02-09] MEDS: Heparin Sodium,Porcine Flush 50 UNITS, 0.9 % Sodium Chloride Flush 5 ML IVFLUSH (13:08)
--- NOTE | 2022-02-12 09:44 | P.F2F_ITS ---
Service Date Service Date: 02/12/22 Encounter Date of encounter: 02/09/22 Reasons for Services Signs and symptoms assessed: BP monitoring Reason for detention: medication management and medication treatment MD Overseeing Care: Leslie Washington Homebound: Leaving the home is medically contraindicated at this time without the asist of a device and/or another person due th the listed conditions above and below. Reason homebound: weakness related to hospital stay Certification: Based on the above findings, I certify that this patient is confined to the home and needs intermittent detention care, physical therapy and/or speech the rapy, or continues to need occupational therapy. The patient is under my care, and I have initiated the establishment of the plan of care. The patient will be followed by a physician who will periodically review the plan of care.
== END 2022-02-09 13:59 | disposition home or self-care (01) | DRG 871 ==
LOC: HO.ED 02-04 08:27 → HO.EDOVER 02-04 12:19 → HO.IMC 02-06 12:24
PROVIDERS: Emergency Medicine Emergency Medical Services; Family Medicine; Student in an Organized Health Care Education/Training Program; Admitting Provider Internal Medicine; Emergency Provider Emergency Medicine; PCP Nurse Practitioner Family; Visit Provider Family Medicine
DX: A41.4 Sepsis due to anaerobes (principal); D61.810 Antineoplastic chemotherapy induced pancytopenia; C77.3 Secondary and unspecified malignant neoplasm of axilla and upper limb lymph nodes; I47.1 Supraventricular tachycardia; M33.90 Dermatopolymyositis, unspecified, organ involvement unspecified; F33.9 Major depressive disorder, recurrent, unspecified; I50.32 Chronic diastolic (congestive) heart failure; C50.911 Malignant neoplasm of unspecified site of right female breast; E83.42 Hypomagnesemia; I11.0 Hypertensive heart disease with heart failure; E87.6 Hypokalemia; F41.9 Anxiety disorder, unspecified; B96.1 Klebsiella pneumoniae [K. pneumoniae] as the cause of diseases classified elsewhere; T45.1X5A Adverse effect of antineoplastic and immunosuppressive drugs, initial encounter; Z68.36 Body mass index [BMI] 36.0-36.9, adult; Z20.822 Contact with and (suspected) exposure to COVID-19; Z79.52 Long term (current) use of systemic steroids; Z86.16 Personal history of COVID-19; Z87.891 Personal history of nicotine dependence; Z79.899 Other long term (current) drug therapy
CPT/HCPCS: 0241U; 36415; 71045; 74176; 80048; 80076; 81001; 83605; 83735; 85025; 85027; 86850; 86900; 86901; 86923; 87040; 87077; 87086; 87088; 87186; 87205; 87493; 87507; 97116; 97162; 99285; J0696; J1642; J3475; P9016

== ENCOUNTER → 2022-03-01 09:18 | Outpatient (BNVA) | payer MEDICARE, MEDICAID, SELFPAY | PROVIDERS: PCP Nurse Practitioner Family; Visit Provider Surgery | DX: C50.911 Malignant neoplasm of unspecified site of right female breast (principal) | CPT/HCPCS: 99212 ==

== ENCOUNTER 2022-03-05 09:38 | Outpatient (REF) | payer MEDICARE, OTHER, SELFPAY ==
--- NOTE | ~2022-03-05 | MR_ITS ---
EXAMINATION: MR ABDOMEN WITHOUT AND WITH CONTRAST CLINICAL INFORMATION: Genetic mutation with increased pancreatic cancer risk. COMPARISON: CT abdomen/pelvis 02/04/2022. TECHNIQUE: MR abdomen was performed without and with use of 10 mL intravenous Gadavist gadolinium contrast. Postcontrast images are performed in multiphase dynamic sequences. Imaging was performed in 3 planes. FINDINGS: LUNG BASES: Partial visualization of a septated T2 bright lesion in the right breast measuring approximately 4.6 cm craniocaudally on image 13, series 1. There is an additional T2 bright lesion more inferiorly and anteriorly in the right breast measuring 4.3 cm craniocaudally on image 23, series 3. Small left-sided pleural effusion with trace amount of right-sided pleural fluid. LIVER, GALLBLADDER, AND BILIARY TREE: There is signal loss in the [id number]-[id number] dual echo images suggesting the presence of hepatic steatosis. The liver is otherwise normal in size and shape. No focal liver lesion noted. The gallbladder is not visualized, presumed to be surgically absent. There is no biliary ductal dilatation. PANCREAS: Fatty infiltration of the proximal pancreas. No measurable lesion. The main duct is of normal diameter. No peripancreatic free fluid or fat stranding. SPLEEN: The spleen measures 14.7 cm craniocaudally. No discrete focal lesion noted. ADRENAL GLANDS: A 1.3 x 1.5 cm right adrenal nodule, is unchanged compared to a baseline CT from 11/23/2021. There is signal loss in the [id number] dual echo images in this nodule, most suggestive of a lipid-rich adenoma. Normal left adrenal gland. KIDNEYS AND URETERS: The kidneys are not entirely included within the [id number]. The visualized portions are within normal limits. GASTROINTESTINAL TRACT: Postsurgical changes from prior Brittney-en-Y gastric bypass. No evidence of bowel obstruction. ABDOMINAL WALL: Mild anasarca. No significant hernia. LYMPH NODES: Prominent but subcentimeter in short axis periportal lymph nodes are nonspecific. VASCULAR: Normal diameter of the abdominal aorta. The main portal vein is patent. OSSEOUS STRUCTURES: No acute or aggressive-appearing osseous abnormalities. MR/MR abdomen wo/w con IMPRESSION: 1. Fatty infiltration of the proximal pancreas which is otherwise unremarkable. 2. Hepatic steatosis. 3. Mild splenomegaly. 4. 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 5. Small left-sided pleural effusion with trace amount of right-sided pleural fluid, new when compared to 02/04/2022. 6. Partial visualization of T2 bright lesions in the right breast, incompletely characterized in this examination, could potentially represent postoperative seromas. Recommend correlation with physical examination and, if clinically deemed appropriate, mammographic studies.
== END 2022-03-05 09:39 | disposition home or self-care (01) ==
LOC: HO.MRI 09:38
PROVIDERS: Visit Provider Internal Medicine Medical Oncology
DX: C50.911 Malignant neoplasm of unspecified site of right female breast (principal)
CPT/HCPCS: 74183; A9585

== ENCOUNTER 2022-03-23 14:14 | Outpatient (REF) | payer MEDICARE, SELFPAY ==
--- NOTE | ~2022-03-23 | MM_ITS ---
EXAMINATION: MM DIAGNOSTIC DIGITAL BREAST TOMOSYNTHESIS, RIGHT CLINICAL INFORMATION: Right breast six-month followup for calcifications. Status post lumpectomy and chemotherapy. COMPARISON: Mammography: 10/17/2021 and studies dating back to 07/24/2017. TECHNIQUE: Digital breast tomosynthesis is performed in both the craniocaudal and mediolateral oblique views along with computer-aided detection (CAD). Synthesized 2-D images are generated from the tomosynthesis. Spot magnification views in craniocaudal and 90 degree mediolateral views performed. FINDINGS: There are scattered areas of fibroglandular density (ACR BI-RADS breast composition Category b). Postsurgical change is evident involving the anterior aspect of the right breast. There are some regions of fat necrosis present. There is also a region of calcification which may represent grouped dystrophic calcifications. However, residual calcifications adjacent to the surgical bed cannot be excluded. These lie about the lateral and inferior aspects of the surgical site. Results are discussed with the patient at time of visit. Referring provider's nurse, Priti, given the above results. MM/MM tomosynthesis diagnostic RT IMPRESSION: Calcifications near the surgical bed which are difficult to tell whether they may be dystrophic or residual. Surgical consultation recommended. ASSESSMENT: BI-RADS 4: Suspicious. RECOMMENDATION: Surgical consultation. This patient's information was entered into a reminder system with a target due date for their next mammogram.
== END 2022-03-23 14:15 | disposition home or self-care (01) ==
LOC: HO.MAMMO 14:14
PROVIDERS: PCP Nurse Practitioner Family; Visit Provider Nurse Practitioner Family
DX: R92.1 Mammographic calcification found on diagnostic imaging of breast (principal)
CPT/HCPCS: 77061; 77065

== ENCOUNTER 2022-03-26 07:09 | Observation (INO) | payer MEDICARE, SELFPAY ==
[2022-03-26] VITALS (8 sets, daily range): BP systolic 122–174; BP diastolic 52–84; PULSE 73–922; RESP 13–22; TEMP 36.2–37.2; O2SAT 95–98; BMI 35.4
--- NOTE | 2022-03-26 | ECG_ITS ---
Test Reason : sob Blood Pressure : / mmHG Vent. Rate : 086 BPM Atrial Rate : 084 BPM P-R Int : 000 ms QRS Dur : 070 ms QT Int : 322 ms P-R-T Axes : 000 046 017 degrees QTc Int : 385 ms Normal sinus rhythm Low voltage QRS Borderline ECG When compared with ECG of 05-JAN-2022 18:50, Premature atrial complexes are no longer Present Referred By: Generic ED Physician Electronically Signed By:CASSIA KAUR MD
--- NOTE | ~2022-03-26 | CT_ITS ---
EXAMINATION: CT ANGIOGRAM OF THE CHEST WITH AND WITHOUT CONTRAST (CT PULMONARY ANGIOGRAM FOR PE) CLINICAL INFORMATION: Reason for Exam SOB and elevated D-dimer, history of cancer COMPARISON: CT angiography chest from 12/14/2021 TECHNIQUE: Prior to contrast administration, noncontrast localization images were obtained. Subsequently, multidetector volumetric imaging was performed from the thoracic inlet to below the diaphragms following the administration of 80 mL Omnipaque 350 intravenous contrast. No contrast reaction reported Sagittal, coronal, and MIP oblique sagittal reformatted images were obtained on the CT workstation, uploaded to PACS, and reviewed. This CT examination was performed using dose optimization techniques as appropriate, variously including the following: *Automated exposure control *Adjustment of mA and/or kV according to patient size (this includes techniques or standardized protocols for targeted exams where dose is matched to indication/reason for exam; i.e. extremities or head) *Use of iterative reconstruction technique Total exam dose-length product 378 mGy-cm FINDINGS: QUALITY OF STUDY/CONTRAST BOLUS: Satisfactory. PULMONARY ARTERIES: No central or segmental pulmonary emboli. Main pulmonary artery is not enlarged THORACIC AORTA: No aneurysm or dissection. Atherosclerotic calcifications of the aortic arch. LUNG/PLEURA: Interval development of multifocal groundglass infiltrate solid nodule involving the right upper lobe for example in the inferior portion (series 6, image 2:15) measuring up to 8 mm may reflect evolving infectious/inflammatory etiology versus metastatic disease. Additional smaller nodular densities are noted in the posterior aspect of the left upper lobe (series 6, image 205) measuring up to 4 mm. Peripheral reticular nodular opacities. Small left pleural effusion. Lingular atelectasis. Central airways are patent. No pneumothorax. MEDIASTINUM: Heart is not enlarged. No pericardial effusion. Faint coronary artery calcifications. Stable mildly prominent right paratracheal lymph node measuring up to 9 mm in short axis. Left single lumen chest port partially visualized with its distal tip terminating in the mid SVC. Visualized portions of the thyroid are unremarkable. No evidence of septal bowing or right heart strain. CHEST WALL/AXILLA: Redemonstration of fluid collection in the right breast tissue measuring 4.6 x 2.0 cm previously measuring 4.0 x 5.0 cm. Redemonstration of right axillary hypodense collection measuring 3.0 x 3.2 cm, previously measuring 2.5 x 3.0 cm OSSEOUS STRUCTURES: No acute or suspicious osseous abnormality. UPPER ABDOMEN: Patent hepatic attenuation suggesting hepatic steatosis. Postsurgical changes of the stomach. Abdominal aorta is nonaneurysmal. No reflux of contrast into the hepatic veins to suggest elevated right heart pressures. CT/CT angio chest PE protocol IMPRESSION: 1. No central or segmental pulmonary emboli. 2. Interval development of multifocal groundglass infiltrate solid nodule involving the right upper lobe for example in the inferior portion measuring up to 8 mm may reflect evolving infectious/inflammatory etiology versus metastatic disease. Additional smaller nodular densities are noted in the posterior aspect of the left upper lobe measuring up to 4 mm. Follow-up as per oncologic criteria. 3. Small left pleural effusion. 4. Redemonstration of fluid collection in the right breast tissue measuring 4.6 x 2.0 cm previously measuring 4.0 x 5.0 cm. Redemonstration of right axillary hypodense collection measuring 3.0 x 3.2 cm, previously measuring 2.5 x 3.0 cm. 5. Hepatic attenuation suggesting hepatic steatosis.
[2022-03-26 07:48] LABS: MANUAL DIFF FLAG NO
[2022-03-26 07:50] LABS: Basophils Percent Auto 0.2 % (0-2); Hematocrit 27.9 % (37.0-47.0); Hemoglobin 8.8 g/dl (12.0-16.0); Imm Gran Abs Auto 0.03 X10*3/uL (0.00-0.03); Imm Gran Pct Auto 0.5 % (0.0-0.4); Lymphocytes Absolute Auto 0.7 X10*3/uL (1.2-4.9); Lymphocytes Percent Auto 10.6 % (20-40); Mean Corpuscular HGB Conc 31.5 g/dl (31.0-35.0); Mean Corpuscular Hemoglobin 32.4 pg (27.0-33.0); Mean Corpuscular Volume 102.6 fL (80.0-98.0); Mean Platelet Volume 9.7 fL (9.4-12.3); Monocytes Absolute Auto 0.5 X10*3/uL (0.1-1.2); Monocytes Percent Auto 8.4 % (2-11); Neutrophils Percent Auto 80.3 % (45-73); Platelet Count 105 X10*3/uL (160-400); Red Blood Count 2.72 X10*6/uL (4.20-5.50); Red Cell Distribution Width 19.2 % (11.0-16.0); White Blood Count 6.2 X10*3/uL (4.8-10.8)
--- NOTE | 2022-03-26 08:00 | ED_ITS ---
HPI - SOB/Dyspnea General Chief Complaint: Dyspnea Stated Complaint: diff breathing Time Seen by Provider: 03/26/22 07:45 Source: patient Mode of arrival: ambulatory Limitations: no limitations History of Present Illness HPI Narrative: 67-year-old female history of breast cancer on chemotherapy currently presented with a sudden onset of shortness of breath started since last night patient has been coughing with no phlegm coming out. No recent travel, no prolonged immobilization, patient suffer from chronic bila teral lower extremity swelling and edema. Shortness of breath is associated with chest pain only with coughing. No history of PE or DVT, patient had a history of asthma. Related Data Home Medications Medication Instructions Recorded Confirmed cyanocobalamin (vitamin B-12) 1,000 mcg PO BEDTIME 10/12/21 03/01/22 1,000 mcg capsule calcium carbonate 600 mg-vitamin 1 tab PO DAILY 10/31/21 03/01/22 D3 10 mcg (400 unit) tablet cholecalciferol (vitamin D3) 25 25 mcg PO DAILY 11/23/21 03/01/22 mcg (1,000 unit) tablet duloxetine 60 mg capsule,delayed 60 mg PO BEDTIME 01/18/22 03/01/22 release (Cymbalta) furosemide 20 mg tablet (Lasix) 20 mg PO MOWEFR 02/04/22 03/01/22 hydrocortisone 2.5 % topical cream 1 appl NC BID PRN Hemorrhoids 02/04/22 03/01/22 with perineal applicator (Proctozone-HC) immune glob,gamma(IgG) 10 45 g IV QMONTH 02/04/22 03/01/22 [id number] 0 to 50 mcg/mL IV solution (Gammagard S-D (IgA < 1 mcg/mL)) Previous Rx's Medication Instructions Recorded clonidine HCl 0.2 mg tablet 0.2 mg PO BEDTIME #90 tabs 12/13/21 loperamide 2 mg capsule 2 mg PO Q4H PRN Diarrhea #24 caps 12/19/21 potassium chloride 20 mEq 20 meq PO BID #60 tabs 01/24/22 tablet,extended release(part/cryst) (Klor-Con M) alendronate 70 mg tablet 70 mg PO QWEEK #4 tabs 02/06/22 magnesium oxide 400 mg (241.3 mg 400 mg PO BIDPC #60 tabs 02/09/22 magnesium) tablet digoxin 250 mcg (0.25 mg) tablet 0.25 mg PO DAILY #90 tabs 02/23/22 Allergies Allergy/AdvReac Type Severity Reaction Status Date / Time No Known Allergies Allergy Verified 03/01/22 09:26 Review of Systems Review of Systems: All other systems are reviewed and are negative Constitutional: Reports as per HPI and Reports no additional constitutional complaints Eyes: Reports as per HPI and Reports no additional eye complaints Reports system reviewed and no additional complaints, except as documented Cardiovascular: Reports as per HPI and Reports no additional cardiovascular complaints Respiratory: Reports as per HPI and Reports no additional respiratory complaints Gastrointestinal: Reports as per HPI and Reports no additional gastrointestinal complaints Genitourinary: Reports no additional female genitourinary complaints Musculoskeletal: Reports no additional musculoskeletal complaints Skin/Breast: Reports system reviewed and no additional complaints, except as docu Psychiatric: Reports no additional psychiatric complaints Endocrine: Reports no additional endocrine complaints Hematologic/Lymphatic: Reports no additional hematologic/lymphatic complaints Allergic/Immunologic: Reports no additional allergic/immunologic complaints Reports system reviewed and no additional complaints, except as documented and Reports Abnormal speech present FOR[facility]LY [facility], [facility] Past Medical History Medical History Abdominal pain Acute diastolic (congestive) heart failure Acute hypokalemia Acute on chronic heart failure with preserved ejection fraction (HFpEF) Anemia Anxiety Atrial arrhythmia Bacteremia due to Klebsiella pneumoniae Breast calcification, right Breast cancer, right CHF (congestive heart failure) Colitis Dermatomyositis Diarrhea Encounter to establish care History of COVID-19 Hypertension Insomnia Invasive ductal carcinoma of right breast Lumbar degenerative disc disease Major depression, chronic Nonsustained supraventricular tachycardia Pain in both feet Pancolitis Pancytopenia Pedal edema Port-A-Cath in place SIRS (systemic inflammatory response syndrome) UTI (urinary tract infection) Surgical History History of arthroscopic knee surgery History of section History of cholecystectomy History of fusion of cervical spine History of gastric bypass History of hysterectomy History of tonsillectomy Hx of colonoscopy Status post right breast lumpectomy Family History Family History Mother No problems noted. Father Breast cancer Bone cancer Brother Substance use disorder Paternal Aunt Breast cancer Social History Social History Household Members: Family Housing: House Are you a primary intensive care unit registered nurse to a significant other at home: No Do you presently have visiting nurse or other home services: No Alcohol intake: former Patient Tobacco Use Status: Former Tobacco user Quit Date: 12 yrs ago Tobacco use type: Cigarette e-Cigarette/Vaping Use: Never Used Second Hand Smoke Exposure: No Advance Directives: Yes Advance Directives on File: Yes Advance Directives Date on File: 11/28/21 service: No Current occupational status: unemployed and retired Cognitive needs: Yes (cane) Hearing needs: No Vision needs: Yes (glasses) Physical Exam Vital Signs: Vital Signs: Last Vital Signs Temp 99 F 03/26/22 07:20 Pulse 82 03/26/22 09:10 Resp 22 H 03/26/22 09:10 BP 149/58 H 03/26/22 09:10 Pulse Ox 97 03/26/22 09:10 O2 Del Method 03/26/22 09:10 BMI result Body Mass Index 35.4 Vital signs have been reviewed as appeared to be correct. Blood pressure normal. Heart rate normal. Respiration rate normal. Temperature normal. Oxygen saturation normal. Appearance: Alert. Oriented X3. No acute distress. Head: Normal external exam. Normocephalic. Atraumatic. No Wheeler signs noted. No raccoon eyes noted Eyes: PERRLA. EOMI. Conjunctiva and sclera normal. Eyelids normal. ENT: TM's Normal. Pharynx normal. Uvula midline. Moist mucous membranes. No trismus noted. No drooling noted. No muffled voice noted. Neck: Normal inspection. Neck supple. FROM. No adenopathy. Thyroid Normal. No meningeal signs. No neck mass noted. CVS: Normal heart rate and rhythm. Heart sound normal. No murmurs noted. Pulses normal throughout. Respiratory: No respiratory distress. Painless inspiration. Breath sounds normal. Diffuse expiratory wheezing with prolonged expiration. Chest nontender. No accessory muscle usage noted or decreased air movement noted. Abdomen: Soft and nontender. Bowel sounds normal in all 4 quadrants. No d istention noted. No organomegaly noted. No visible injury noted. Back: No CVA tenderness. Full range of motion noted. Skin: Skin warm and dry. Normal skin color. Normal skin turgor. No rashes/l esions/lacerations noted. Extremities: No lower extremity edema. Extremities exhibit normal range of motion. Extremities nontender. Neuro: Oriented X 3. Cranial nerve exam: II-XII are grossly intact No motor deficit. No sensory deficit. Reflexes normal. Course Course Course Narrative: A 67-year-old female with shortness of breath and mild respiratory distress patient has an ammonia no PE, patient was satting 90% room air initially now O2 saturation is 93% with oxygen after treatment, start the patient on ceftriaxone and Zithromax will admit to monitor O2 sat. Medications Administered Discontinued Medications Generic Name Dose Route Start Last Admin Trade Name Freq PRN Reason Stop Dose Admin Albuterol Sulfate 2.5 mg 03/26/22 07:57 03/26/22 08:25 Albuterol Sulfate (0.083%) 2.5 Mg/3 Ml Vial.Neb INHALE 03/26/22 07:58 2.5 mg ONCE ONE Administration Albuterol Sulfate 2.5 mg/ 5 mg 03/26/22 07:57 03/26/22 08:25 Albuterol Sulfate 2.5 mg INHALE 03/26/22 07:58 5 mg ONCE ONE Administration Magnesium Sulfate 2 gm in 50 mls @ 25 mls/hr 03/26/22 07:57 03/26/22 08:45 Magnesium Sulfate/H2o IV 03/26/22 09:56 Infused ONCE ONE Infusion Iohexol 100 ml 03/26/22 09:04 03/26/22 09:05 Iohexol 350 Mg/Ml 100 Ml Infus..Btl IV 03/26/22 09:05 65 ml ONCE ONE Administration Ipratropium Marathon 0.5 mg 03/26/22 07:57 03/26/22 08:25 Ipratropium [place] 0.5 Mg/2.5 Ml Solution INHALE 03/26/22 07:58 0.5 mg ONCE ONE Administration Methylprednisolone Sodium Succinate 125 mg 03/26/22 07:57 03/26/22 08:16 Methylprednisolone Sod Succ 125 Mg/2 Ml Vial IVPUSH 03/26/22 07:58 125 mg ONCE ONE Administration Potassium Chloride 40 meq 03/26/22 08:18 03/26/22 08:32 Potassium Chloride Packet 20 Meq Packet PO 03/26/22 08:19 40 meq ONCE ONE Administration Medical Decision Making Differential Diagnosis Differential Diagnoses: The differential diagnosis associated with the presentation includes (Pneumonia, viral infection, pulmonary embolism, pleural effusion, pneumothorax.) Admission/Observation Consideration of admission/observation: Escalation of care including admission/observation considered Consult Healthcare Provider Management of the patient was discussed with: Hospitalist Lab Data MDM Lab Attestation statement: I reviewed the patient's lab results. 03/26/22 07:39 03/26/22 07:39 Labs: Lab Results 03/26/22 03/26/22 03/26/22 Range/Units 07:39 07:39 07:39 WBC 6.2 (4.8-10.8) X10*3/uL RBC 2.72 L (4.20-5.50) X10*6/uL Hgb 8.8 L (12.0-16.0) g/dl Hct 27.9 L (37.0-47.0) % MCV 102.6 H (80.0-98.0) fL MCH 32.4 (27.0-33.0) pg MCHC 31.5 (31.0-35.0) g/dl RDW 19.2 H (11.0-16.0) % Plt Count 105 L D (160-400) X10*3/uL MPV 9.7 (9.4-12.3) fL Immature Gran % (Auto) 0.5 H (0.0-0.4) % Neut % (Auto) 80.3 H (45-73) % Lymph % (Auto) 10.6 L (20-40) % Travis % (Auto) 8.4 (2-11) % Eos % (Auto) 0.0 (0-4) % Baso % (Auto) 0.2 (0-2) % Lymph # (Auto) 0.7 L (1.2-4.9) X10*3/uL Travis # (Auto) 0.5 (0.1-1.2) X10*3/uL Eos # (Auto) 0.0 (0.0-0.4) X10*3/uL Baso # (Auto) 0.0 (0.0-0.2) X10*3/uL Abs Immat Gran (auto) 0.03 (0.00-0.03) X10*3/uL Absolute Neuts (auto) 5.0 (2.0-8.3) x10*3/uL Absolute Nucleated RBC 0.000 (0.0-0.012) X10*3/uL Nucleated RBC % (auto) 0.0 (0.0-0.2) /100WBC D-Dimer High Sensitivty NG/ML Sodium 143 (135-145) mmol/L Potassium 3.1 L (3.3-5.1) mmol/L Chloride 105 (96-108) mmol/L Carbon Dioxide 25 (22-29) mmol/L Anion Gap 16 (12-20) BUN 9 (9-16) mg/dL Creatinine 0.74 (0.5-1.4) mg/dL Estim Creat Clear Calc 81.0 Estimated GFR > 60 Random Glucose 95 (60-115) mg/dL Calcium 8.1 L (8.4-10.2) mg/dL Total Bilirubin 0.8 (0.0-1.0) mg/dL AST 24 (5-31) U/L ALT 12 (0-31) U/L Alkaline Phosphatase 111 (39-117) U/L Troponin I High Sens (<3.5-17.0) ng/L Total Protein 5.2 L (6.5-8.0) g/dL Albumin 3.1 L (3.5-5.0) g/dL Lipase (8-78) U/L Influenza Type A (PCR) NEGATIVE (Negative) Influenza Type B (PCR) NEGATIVE (Negative) RSV RNA Qual (PCR) NEGATIVE (Negative) SARS-CoV-2 RNA (RT-PCR) NEGATIVE (Negative) 03/26/22 03/26/22 03/26/22 Range/Units 08:10 08:10 08:10 WBC (4.8-10.8) X10*3/uL RBC (4.20-5.50) X10*6/uL Hgb (12.0-16.0) g/dl Hct (37.0-47.0) % MCV (80.0-98.0) fL MCH (27.0-33.0) pg MCHC (31.0-35.0) g/dl RDW (11.0-16.0) % Plt Count (160-400) X10*3/uL MPV (9.4-12.3) fL Immature Gran % (Auto) (0.0-0.4) % Neut % (Auto) (45-73) % Lymph % (Auto) (20-40) % Travis % (Auto) (2-11) % Eos % (Auto) (0-4) % Baso % (Auto) (0-2) % Lymph # (Auto) (1.2-4.9) X10*3/uL Travis # (Auto) (0.1-1.2) X10*3/uL Eos # (Auto) (0.0-0.4) X10*3/uL Baso # (Auto) (0.0-0.2) X10*3/uL Abs Immat Gran (auto) (0.00-0.03) X10*3/uL Absolute Neuts (auto) (2.0-8.3) x10*3/uL Absolute Nucleated RBC (0.0-0.012) X10*3/uL Nucleated RBC % (auto) (0.0-0.2) /100WBC D-Dimer High Sensitivty 535 NG/ML Sodium (135-145) mmol/L Potassium (3.3-5.1) mmol/L Chloride (96-108) mmol/L Carbon Dioxide (22-29) mmol/L Anion Gap (12-20) BUN (9-16) mg/dL Creatinine (0.5-1.4) mg/dL Estim Creat Clear Calc Estimated GFR Random Glucose (60-115) mg/dL Calcium (8.4-10.2) mg/dL Total Bilirubin (0.0-1.0) mg/dL AST (5-31) U/L ALT (0-31) U/L Alkaline Phosphatase (39-117) U/L Troponin I High Sens 12.2 (<3.5-17.0) ng/L Total Protein (6.5-8.0) g/dL Albumin (3.5-5.0) g/dL Lipase 23 (8-78) U/L Influenza Type A (PCR) (Negative) Influenza Type B (PCR) (Negative) RSV RNA Qual (PCR) (Negative) SARS-CoV-2 RNA (RT-PCR) (Negative) Independent Interpretation I performed an independent interpretation of an: CT Scan (CT angiogram of the chest.1. No central or segmental pulmonary emboli. 2. Interval development of multifocal groundglass infiltrate solid nodule involving the right upper lobe for example in the inferior portion measuring up to 8 mm may reflect evolving infectious/inflammatory etiology versus meta) Radiology Impression Discussion of test interpretation with radiology: I have reviewed the radiologist's reading. Discharge Plan Discharge Clinical Impression: Pneumonia Patient Disposition: Admitted As Inpatient Prescriptions: No Action clonidine HCl 0.2 mg tablet 0.2 mg PO BEDTIME Qty: 90 1RF alendronate 70 mg tablet 70 mg PO QWEEK Qty: 4 5RF digoxin 250 mcg (0.25 mg) tablet 0.25 mg PO DAILY Qty: 90 1RF cyanocobalamin (vitamin B-12) 1,000 mcg capsule 1,000 mcg PO BEDTIME duloxetine [Cymbalta] 60 mg capsule,delayed release(DR/EC) 60 mg PO BEDTIME cholecalciferol (vitamin D3) 25 mcg (1,000 unit) Tablet 25 mcg PO DAILY loperamide 2 mg Capsule 2 mg PO Q4H PRN (Reason: Diarrhea) Qty: 24 0RF hydrocortisone [Proctozone-HC] 2.5 % cream with perineal applicator 1 appl NC BID PRN (Reason: Hemorrhoids) furosemide [Lasix] 20 mg tablet 20 mg PO MOWEFR Hold Instructions: Resume on 02/15/22. Gammagard S-D (IgA < 1 mcg/mL) 10 gram recon soln 45 g IV QMONTH Rx Instructions: for 2 consecutive days every 30 days magnesium oxide 400 mg (241.3 mg magnesium) Tablet 400 mg PO BIDPC Qty: 60 0RF calcium carbonate-vitamin D3 600 mg-10 mcg (400 unit) tablet 1 tab PO DAILY potassium chloride [Klor-Con M20] 20 mEq tablet,ER particles/crystals 20 meq PO BID Qty: 60 4RF
[2022-03-26 08:08] LABS: Alanine Aminotransferase 12 U/L (0-31); Albumin Level 3.1 g/dL (3.5-5.0); Alkaline Phosphatase 111 U/L (39-117); Anion Gap 16 (12-20); Aspartate Amino Transferase 24 U/L (5-31); Bilirubin Total 0.8 mg/dL (0.0-1.0); Blood Urea Nitrogen 9 mg/dL (9-16); Calcium 8.1 mg/dL (8.4-10.2); Carbon Dioxide 25 mmol/L (22-29); Chloride 105 mmol/L (96-108); Estimated Glomerular Filt Rate > 60; Glucose Random 95 mg/dL (60-115); Potassium 3.1 mmol/L (3.3-5.1); Sodium 143 mmol/L (135-145); Total Protein 5.2 g/dL (6.5-8.0)
[2022-03-26] MEDS: Magnesium Sulfate/H2O 2 GM/50 ML PIGGYBACK IV (08:16)
[2022-03-26] MEDS: methylPREDNISolone Sod Succ 125 MG/2 ML VIAL IVPUSH (08:16)
[2022-03-26 08:23] LABS: D Dimer High Sensitivity 535 NG/ML
[2022-03-26] MEDS: Albuterol Sulfate 2.5 MG, Albuterol Sulfate (0.083%) 2.5 MG 5 MG INHALE (08:25)
[2022-03-26] MEDS: Albuterol Sulfate (0.083%) 2.5 MG/3 ML VIAL.NEB INHALE (08:25)
[2022-03-26] MEDS: Ipratropium Bromide 0.5 MG/2.5 ML SOLUTION INHALE (08:25)
[2022-03-26] MEDS: Potassium Chloride Packet 20 MEQ PACKET 40 MEQ PO (08:32)
[2022-03-26 08:34] LABS: Influenza A PCR NEGATIVE (Negative); Influenza B PCR NEGATIVE (Negative); Resp Syncy Virus RNA Qual PCR NEGATIVE (Negative); SARS COV2 PCR INHOUSE NEGATIVE (Negative)
[2022-03-26 08:34] LABS: Lipase 23 U/L (8-78)
[2022-03-26 08:39] LABS: Troponin-I High Sensitivity 12.2 ng/L (<3.5-17.0)
--- NOTE | 2022-03-26 08:50 | PC.NURSE ---
port accessed. medicated per emar. pt getting resp treatment. aware of plan of care and denied having any questions.
[2022-03-26] MEDS: iohexoL 350 MG/ML 100 ML INFUS..BTL IV (09:05)
--- NOTE | 2022-03-26 12:29 | PHA.MEDREC ---
Pharmacy Consult ? Medication Reconciliation Pharmacy has completed the medication reconciliation. Patient is a good historian and was able to provide me with her full medication list. The doses she was unsure of I asked her based off of claim history and she was able to say what was correct. She was unable to take her doses last night, but did take last dosing yesterday (03/25/22) morning.
--- NOTE | 2022-03-26 12:53 | P.HPHOSP_ITS ---
History of Present Illness Date of Service: 03/26/22 Attending physician on admission: Omero Castillo Chief Complaint: cough, sob, pleuritic cp 67-year-old female with history HFpEF, unspecified atrial arrhythmia, anxiety/depression,, right-sided invasive ductal carcinoma the right breast with pancytopenia recently completed final cycle carboplatin/docetaxel/trastuzumab/pertuzumab on 03/06 ([facility]), hypokalelmia, dermatomyositis on IVIG, hypertension, insomnia, nonsustained SVT, bilateral lower extremity edema presented to the ED earlier this morning for evaluation of nonproductive cough, shortness of breath, chest congestion, and pleuritic chest pain that started yesterday. She is a former smoker. Denies any fevers, chills, sore throat, nasal congestion, abd pain, n/v, urinary symptoms, orthopnea, PND, wheezing, chest pressure. Has had recent Hospitalizations 01/08/22. for CHF exacebration and Klebsiella bacteremia/sepsis on 02/09/22. On arrival, patient afebrile. Intermittently tachypnea to 22. No hypoxia. WBC 6.2 (last measured 2.8). H/H 8.8, 27.9%. Reanl function baseline. K 3.1. BNP pending. DDimer 535. CTA chest negatvive for PE, showing interval development of multifocal groundglass infiltrate solid nodule in the RUL measuring up to 8mm representing infectious/inflammatory etiology vs metastatic disease. Also small left pleural effusion. There is also redemonstration of fluid collection in right breast tissue as well as right axillary hypodense collection. Treated with albuterol, IV mag, KCl, methylprednisolone 125mg. Negative for flu, covid, rsv. Review of Systems Review of Systems: General: No fevers, malaise, unintentional weight loss HEENT: No blurred vision, diplopia. No sore throat, nasal congestion, rhinorrhea, sinus pain, ear pain Cardiovascular: +pleuritic chest pain. No chest pressure, palpitations, or leg edema Respiratory: +shortness of breath, +cough. No wheezing GI: +diarrhea. No abdominal pain, nausea, vomiting, constipation, melena, hematochezia : No dysuria, hematuria, increased urinary frequency, decreased urinary output MSK: No myalgia, back pain Neuro: No headaches, weakness, paresthesias Skin: No rashes or lesions [facility] Medical History Abdominal pain Acute diastolic (congestive) heart failure Acute hypokalemia Acute on chronic heart failure with preserved ejection fraction (HFpEF) Anemia Anxiety Atrial arrhythmia Bacteremia due to Klebsiella pneumoniae Breast calcification, right Breast cancer, right CHF (congestive heart failure) Colitis Dermatomyositis Diarrhea Encounter to establish care History of COVID-19 Hypertension Insomnia Invasive ductal carcinoma of right breast Lumbar degenerative disc disease Major depression, chronic Nonsustained supraventricular tachycardia Pain in both feet Pancolitis Pancytopenia Pedal edema Port-A-Cath in place SIRS (systemic inflammatory response syndrome) UTI (urinary tract infection) Family History Mother No problems noted. Father Breast cancer Bone cancer Brother Substance use disorder Paternal Aunt Breast cancer Surgical History History of arthroscopic knee surgery History of section History of cholecystectomy History of fusion of cervical spine History of gastric bypass History of hysterectomy History of tonsillectomy Hx of colonoscopy Status post right breast lumpectomy Social History Household Members: Family Housing: House Are you a primary critical care transport nurse to a significant other at home: No Do you presently have visiting nurse or other home services: No Alcohol intake: former Patient Tobacco Use Status: Former Tobacco user Quit Date: 12 yrs ago Tobacco use type: Cigarette e-Cigarette/Vaping Use: Never Used Second Hand Smoke Exposure: No Advance Directives: Yes Advance Directives on File: Yes Advance Directives Date on File: 11/28/21 service: No Current occupational status: unemployed and retired Cognitive needs: Yes (cane) Hearing needs: No Vision needs: Yes (glasses) Meds Allergies Allergy/AdvReac Type Severity Reaction Status Date / Time No Known Allergies Allergy Verified 03/01/22 09:26 Active Medications: Current Medications Acetaminophen (Acetaminophen 325 Mg Tablet) 650 mg PO Q6H PRN PRN Reason: Pain, Mild (Pain Scale 1-3) Enoxaparin Sodium (Enoxaparin Sodium 40 Mg/0.4 Ml Syringe) 40 mg SUBCUT Q24H [facility] Cefepime HCl 2 gm/ Sodium (Chloride) 50 mls @ 100 mls/hr IV Q8H [facility] Ondansetron HCl (Ondansetron Hcl 4 Mg/2 Ml Vial) 4 mg IVPUSH Q8H PRN PRN Reason: Nausea and Vomiting Pharmacy Consult (Consult Rx Perform Med Rec) 1 each MISCELLANE ONCE PRN PRN Reason: Consult order Pharmacy Consult (Consult Rx Vancomycin Dosing) 1 each MISCELLANE DAILY PRN PRN Reason: Consult order Sodium Chloride (0.9 % Sodium Chloride Flush 3 Ml Syringe) 3 ml IVFLUSH QSHIFT [facility] Home Medications Medication Instructions Recorded Confirmed Last Taken Type cyanocobalamin (vitamin B-12) 1,000 mcg PO BEDTIME 10/12/21 03/26/22 03/24/22 History 1,000 mcg capsule calcium carbonate 600 mg-vitamin 1 tab PO DAILY 10/31/21 03/26/22 03/25/22 History D3 10 mcg (400 unit) tablet cholecalciferol (vitamin D3) 25 25 mcg PO BEDTIME 11/23/21 03/26/22 03/24/22 History mcg (1,000 unit) tablet duloxetine 60 mg capsule,delayed 60 mg PO DAILY 01/18/22 03/26/22 03/24/22 History release (Cymbalta) furosemide 20 mg tablet (Lasix) 20 mg PO DAILY 02/04/22 03/26/22 03/24/22 H istory alendronate 70 mg tablet 70 mg PO SA 03/26/22 03/26/22 03/24/22 History clonidine HCl 0.2 mg tablet 0.2 mg PO BEDTIME SLEEP 03/26/22 03/26/22 03/24/22 History magnesium oxide 400 mg (241.3 mg 400 mg PO BID 03/26/22 03/26/22 03/25/22 History magnesium) tablet Physical Exam Vital Signs and Narrative: Vital Signs: Last Vital Signs Temp 99 F 03/26/22 07:20 Pulse 82 03/26/22 09:10 Resp 22 H 03/26/22 09:10 BP 149/58 H 03/26/22 09:10 Pulse Ox 97 03/26/22 09:10 O2 Del Method 03/26/22 09:10 BMI result Body Mass Index 35.4 Constitutional - Awake and Alert, No apparent distress Eyes - PERRLA, EOMI Cardiovascular - S1S2, RRR, No edema Respiratory - Normal lung expansion, Normal respiratory effort, No respiratory distress, CTA bilaterally Gastrointestinal - NT / ND; +BS; No rebound or guarding Extremities - no calf tenderness bilaterally, no swelling Skin - Warm/Dry Neurological - Alert & oriented x3, CN II-XII in tact, 5/5 strength BUE and BLE Psychological - Appropriate affect Results Labs 03/26/22 07:39 03/26/22 07:39 Labs: Laboratory Results - last 24 hr 03/26/22 03/26/22 03/26/22 07:39 07:39 07:39 MCV 102.6 H MCH 32.4 MCHC 31.5 RDW 19.2 H Plt Count 105 L D MPV 9.7 Immature Gran % (Auto) 0.5 H Neut % (Auto) 80.3 H Lymph % (Auto) 10.6 L [place] % (Auto) 8.4 Eos % (Auto) 0.0 Baso % (Auto) 0.2 Lymph # (Auto) 0.7 L [place] # (Auto) 0.5 Eos # (Auto) 0.0 Baso # (Auto) 0.0 Abs Immat Gran (auto) 0.03 Absolute Neuts (auto) 5.0 Absolute Nucleated RBC 0.000 Nucleated RBC % (auto) 0.0 D-Dimer High Sensitivty Anion Gap 16 Estim Creat Clear Calc 81.0 Estimated GFR > 60 Random Glucose 95 Calcium 8.1 L Total Bilirubin 0.8 AST 24 ALT 12 Alkaline Phosphatase 111 Troponin I High Sens Total Protein 5.2 L Albumin 3.1 L Lipase Influenza Type A (PCR) NEGATIVE Influenza Type B (PCR) NEGATIVE RSV RNA Qual (PCR) NEGATIVE SARS-CoV-2 RNA (RT-PCR) NEGATIVE 03/26/22 03/26/22 03/26/22 08:10 08:10 08:10 MCV MCH MCHC RDW Plt Count MPV Immature Gran % (Auto) Neut % (Auto) Lymph % (Auto) [place] % (Auto) Eos % (Auto) Baso % (Auto) Lymph # (Auto) [place] # (Auto) Eos # (Auto) Baso # (Auto) Abs Immat Gran (auto) Absolute Neuts (auto) Absolute Nucleated RBC Nucleated RBC % (auto) D-Dimer High Sensitivty 535 Anion Gap Estim Creat Clear Calc Estimated GFR Random Glucose Calcium Total Bilirubin AST ALT Alkaline Phosphatase Troponin I High Sens 12.2 Total Protein Albumin Lipase 23 Influenza Type A (PCR) Influenza Type B (PCR) RSV RNA Qual (PCR) SARS-CoV-2 RNA (RT-PCR) Imaging Radiologist's Impressions: Impressions Chest CTA 03/26/22 09:06 IMPRESSION: 1. No central or segmental pulmonary emboli. 2. Interval development of multifocal groundglass infiltrate solid nodule involving the right upper lobe for example in the inferior portion measuring up to 8 mm may reflect evolving infectious/inflammatory etiology versus metastatic disease. Additional smaller nodular densities are noted in the posterior aspect of the left upper lobe measuring up to 4 mm. Follow-up as per oncologic criteria. 3. Small left pleural effusion. 4. Redemonstration of fluid collection in the right breast tissue measuring 4.6 x 2.0 cm previously measuring 4.0 x 5.0 cm. Redemonstration of right axillary hypodense collection measuring 3.0 x 3.2 cm, previously measuring 2.5 x 3.0 cm. 5. Hepatic attenuation suggesting hepatic steatosis. Assessment and Plan (1) Pneumonia: Status: Acute Plan 67-year-old female with history HFpEF, unspecified atrial arrhythmia, anxiety/depression,, right-sided invasive ductal carcinoma the right breast with pancytopenia recently completed final cycle carboplatin/docetaxel/trastuzum ab/pertuzumab on 03/06 ([facility]), hypokalelmia, dermatomyositis on IVIG, hypertension, insomnia, nonsustained SVT, bilateral lower extremity edema to be observed for RUL pneumonia. #RUL groundlass infiltrate -interval development of multifocal groundglass infiltrate solid nodule in the RUL measuring up to 8mm representing infectious/inflammatory etiology vs metastatic disease -Pt symptomatic with sob, cough, chest congestion, and pleuritic cp. Afebrile, no sepsis. Given immunocompromised state with recent admissions treated with abx, will cover for pneumonia empirically with cefepime and vanco and observe overnight -Legionella, strep pneumonia cultures pending. MRSA swab ordered -Albuterol prn, symptomatic management -Oncology consult placed -Consider pulm consult if no improvement #Right sided invasive ductal carcinoma -Completed carboplatin/docetaxel/trastuzumab/pertuzumab on 03/06 -Per pt, supposed to start maintenance therapy tomorrow -Oncology consult pending #Elevated Ddimer -CTA chest neg for PE #HFpEF -CTA chest showing small right sided pleural effusion -BNP pending #Thrombocytopenia from chemo- Plt 105 -MOnitor closely whole on lovenox #Chronic normocytic anemia- due to chemo/cancer -H/H stable #Atrial arrhythmia- rate controlled - Previously following with cardiology for PACs -Continue digoxin #Chronic diarrhea- r/t chemotherapy -loperamide prn #Hypokalemia -K 3.1 today. Repleted -Continue KCl BID -Follow BMP #Hypomagnesemia -Repleted -Continue home mag dose -Follow mag DVT prophylaxis- lovenox Full code Time Spent With Patient Time: Total time managing care of this patient today ____ minutes. Quality Stroke Does the patient have a stroke diagnosis?: No VTE Prior VTE?: No VTE Risk Level:: Medical - moderate - high VTE Device Contraindication: Treatment Not Indicated VTE Drug Contraindication: N/A - Med Ordered
[2022-03-26] MEDS: Enoxaparin Sodium 40 MG/0.4 ML SYRINGE SUBCUT (14:10)
[2022-03-26] MEDS: Digoxin 0.25 MG TABLET PO (14:10)
[2022-03-26] MEDS: cefEPime HCl 2 GM in 0.9 % Sodium Chloride 50 ML IV ×2 (14:10→20:59)
[2022-03-26] MEDS: Furosemide 20 MG TABLET PO (14:10)
[2022-03-26] MEDS: Magnesium Oxide 400 MG TABLET PO ×2 (14:10→21:11)
--- NOTE | 2022-03-26 15:49 | PHA.PROG ---
Admission Date/Time: March 26, 2022 12:00 Indication: RESP INF Weight in k.718 kg Adjusted body weight in K.7 KG [place] body weight in K.4 KG Obesity Dosing Indication % IBW: Serum Creatinine - Last 168 Hours 03/26/22 07:39 Creatinine 0.74 Estimated CrCl and GFR - Last 168 Hours 03/26/22 07:39 Estim Creat Clear Calc 81.0 Estimated GFR > 60 Vancomycin Loading Dose: 2000 MG Current Vancomycin Dosing Regimen: 750 MG Q12H Vancomycin Monitoring using AUC goal of 400 - 600 range with trough as surrogate marker: PREDICTED AUC 486 Date and Time for next Vancomycin Level to be drawn: 03/27/22 @1300 Pharmacist Comments on Vancomycin Plan: OBESE MODEL USED . TROUGH BEFORE 3RD DOSE OTHEWISE IF SCHEDULED BEFORE 4TH WOULD BE OVERNIGHT . Vancomycin dosing will take advantage of [employer] as a clinical decision support tool that uses Bayesian modeling to calculate individual patient's pharmacokinetic parameters and forecast the patient's drug concentration time course with the target goal AUC 24 range of 400 - 600 mg/L/hr.
--- NOTE | 2022-03-26 21:02 | PC.NURSE ---
This chart writer assumed care of this PT at 1900. PT denies any pain. Denies CP, SOB, or dizziness. States feeling better then this AM . Meds given as documented. VSS.
[2022-03-26] MEDS: cloNIDine HCL 0.2 MG TABLET PO (21:04)
[2022-03-26] MEDS: Cyanocobalamin (Vitamin B-12) 1,000 MCG TABLET 1000 MCG PO (21:07)
[2022-03-26] MEDS: Cholecalciferol (Vitamin D3) 25 MCG TABLET PO (21:07)
[2022-03-26] MEDS: Potassium Chloride ER 20 MEQ TAB.ER.PRT PO (21:07)
[2022-03-27] VITALS (8 sets, daily range): BP systolic 111–138; BP diastolic 53–91; PULSE 72–97; RESP 12–20; TEMP 36.5–36.9; O2SAT 95–99
[2022-03-27] MEDS: vancomycin HCL 750 MG in 0.9 % Sodium Chloride 250 ML 265 MG IV (03:01)
[2022-03-27] MEDS: cefEPime HCl 2 GM in 0.9 % Sodium Chloride 50 ML IV ×3 (05:04→21:17)
[2022-03-27 06:16] LABS: MANUAL DIFF FLAG NO
[2022-03-27 06:27] LABS: Basophils Percent Auto 0.2 % (0-2); Imm Gran Abs Auto 0.04 X10*3/uL (0.00-0.03); Imm Gran Pct Auto 0.5 % (0.0-0.4); Lymphocytes Percent Auto 11.4 % (20-40); Mean Corpuscular HGB Conc 30.8 g/dl (31.0-35.0); Mean Corpuscular Hemoglobin 32.5 pg (27.0-33.0); Mean Corpuscular Volume 105.7 fL (80.0-98.0); Mean Platelet Volume 10.1 fL (9.4-12.3); Monocytes Absolute Auto 0.8 X10*3/uL (0.1-1.2); Monocytes Percent Auto 8.8 % (2-11); Neutrophils Absolute Auto 6.8 x10*3/uL (2.0-8.3); Neutrophils Percent Auto 79.1 % (45-73); Platelet Count 124 X10*3/uL (160-400); Red Blood Count 2.46 X10*6/uL (4.20-5.50); Red Cell Distribution Width 19.3 % (11.0-16.0); White Blood Count 8.6 X10*3/uL (4.8-10.8)
[2022-03-27 06:34] LABS: Anion Gap 12 (12-20); Blood Urea Nitrogen 12 mg/dL (9-16); Calcium 8.1 mg/dL (8.4-10.2); Carbon Dioxide 26 mmol/L (22-29); Chloride 107 mmol/L (96-108); Creatinine Clr Calc Pharmacy 82.1; Estimated Glomerular Filt Rate > 60; Glucose Random 108 mg/dL (60-115); Potassium 3.6 mmol/L (3.3-5.1); Sodium 141 mmol/L (135-145)
--- NOTE | 2022-03-27 07:08 | PC.NURSE ---
report given to RUFUS Oakes pt is alert and oriented resting in bed no signs of acute distress notice
[2022-03-27] MEDS: Calcium + Vitamin D 250 MG TABLET 500 MG PO (07:59)
[2022-03-27] MEDS: DULoxetine HCl 60 MG CAPSULE.DR PO (07:59)
[2022-03-27] MEDS: Potassium Chloride ER 20 MEQ TAB.ER.PRT PO ×2 (07:59→21:17)
[2022-03-27] MEDS: 0.9 % Sodium Chloride Flush 3 ML SYRINGE IVFLUSH ×2 (08:00→21:18)
[2022-03-27] MEDS: Magnesium Oxide 400 MG TABLET PO ×2 (08:00→21:18)
[2022-03-27] MEDS: Furosemide 20 MG TABLET PO (08:00)
--- NOTE | 2022-03-27 08:04 | PC.NURSE ---
pt is a/o x 4 c/o sob, speaks in full sentences. lungs faint exp wheezing all lobes. heart sounds regular. port-a-cath patent to l chest. abd soft and non-tender. sonido lower ext 2=pitting edema. r leg slightly vik and warm to touch. pt aware of plan of care.
--- NOTE | 2022-03-27 08:20 | PC.NURSE ---
rn manny rn report given to jann ellison aware of plan of care for transfer to med surg unit.
[2022-03-27] MEDS: Albuterol Sulfate (0.083%) 2.5 MG/3 ML VIAL.NEB INHALE (08:34)
[2022-03-27] MEDS: Digoxin 0.25 MG TABLET PO (09:27)
--- NOTE | 2022-03-27 10:36 | P.PNIM_ITS ---
Subjective Subjective Date of Service: 03/27/22 Interval History: Seen in follow-up for right upper lobe ground-glass opacities Interval history: Patient reports feeling somewhat better. Still with cough, now productive. Intermittent shortness of breath improved with albuterol treatments. Remains afebrile Review of Systems Review of Systems: Yes all other systems are reviewed and are negative Physical Exam Vital Signs: Vital Signs: Last Vital Signs Temp 97.7 F 03/27/22 09:44 Pulse 86 03/27/22 09:44 Resp 18 03/27/22 09:44 BP 118/55 L 03/27/22 09:44 Pulse Ox 96 03/27/22 09:44 O2 Del Method 03/27/22 09:44 BMI result Body Mass Index 35.4 Constitutional - Awake and Alert, No apparent distress Eyes - PERRLA, EOMI Cardiovascular - S1S2, RRR, 3+ pitting edema BLE Respiratory - Normal lung expansion, Normal respiratory effort, No respiratory distress, coarse breath sounds bilaterally with expiratory wheezing Gastrointestinal - NT / ND; +BS; No rebound or guarding Extremities - no calf tenderness bilaterally, no swelling Skin - Warm/Dry Neurological - Alert & oriented x3 Psychological - Appropriate affect Objective Data Active Medications Acetaminophen (Acetaminophen 325 Mg Tablet) 650 mg PO Q6H PRN PRN Reason: Pain, Mild (Pain Scale 1-3) Albuterol Sulfate (Albuterol Sulfate (0.083%) 2.5 Mg/3 Ml Vial.Neb) 2.5 mg INHALE Q3H PRN PRN Reason: Shortness of Breath/Wheezing Last Admin: 03/27/22 08:34 Dose: 2.5 mg Documented By: AP Calcium Carbonate/Cholecalciferol (Calcium + Vitamin D 250 Mg Tablet) 500 mg PO DAILY [facility] Last Admin: 03/27/22 07:59 Dose: 500 mg Documented By: DIONNE Clonidine HCl (Clonidine Hcl 0.2 Mg Tablet) 0.2 mg PO BEDTIME [facility]; Protocol Last Admin: 03/26/22 21:04 Dose: 0.2 mg Documented By: DIEGO Cyanocobalamin (Cyanocobalamin (Vitamin B-12) 1,000 Mcg Tablet) 1,000 mcg PO BEDTIME [facility] Last Admin: 03/26/22 21:07 Dose: 1,000 mcg Documented By: HO.SERRANX Digoxin (Digoxin 0.25 Mg Tablet) 0.25 mg PO DAILY [facility] Last Admin: 03/27/22 09:27 Dose: 0.25 mg Documented By: KRYSTAL Duloxetine HCl (Duloxetine Hcl 60 Mg Capsule.Dr) 60 mg PO DAILY [facility] Last Admin: 03/27/22 07:59 Dose: 60 mg Documented By: DIONNE Enoxaparin Sodium (Enoxaparin Sodium 40 Mg/0.4 Ml Syringe) 40 mg SUBCUT Q24H [facility] Last Admin: 03/26/22 14:10 Dose: 40 mg Documented By: SUSANNASTJoe Furosemide (Furosemide 20 Mg Tablet) 20 mg PO DAILY [facility]; Protocol Last Admin: 03/27/22 08:00 Dose: 20 mg Documented By: DIONNE Cefepime HCl 2 gm/ Sodium (Chloride) 50 mls @ 100 mls/hr IV Q8H [facility] Last Infusion: 03/27/22 06:43 Dose: 0 mls/hr Documented By: N-ANICL Vancomycin HCl 750 mg/ Sodium (Chloride) 265 mls @ 265 mls/hr IV Q12H [facility] Last Infusion: 03/27/22 04:42 Dose: 0 mls/hr Documented By: N-ANICL Loperamide HCl (Loperamide Hcl 2 Mg Capsule) 2 mg PO Q4H PRN PRN Reason: Diarrhea Magnesium Oxide (Magnesium Oxide 400 Mg Tablet) 400 mg PO BID [facility] Last Admin: 03/27/22 08:00 Dose: 400 mg Documented By: DIONNE Methylprednisolone Sodium Succinate (Methylprednisolone Sod Succ 40 Mg/Ml Vial) 40 mg IVPUSH Q12H [facility] Ondansetron HCl (Ondansetron Hcl 4 Mg/2 Ml Vial) 4 mg IVPUSH Q8H PRN PRN Reason: Nausea and Vomiting Pharmacy Consult (Consult Rx Perform Med Rec) 1 each MISCELLANE ONCE PRN PRN Reason: Consult order Pharmacy Consult (Consult Rx Vancomycin Dosing) 1 each MISCELLANE DAILY PRN PRN Reason: Consult order Potassium Chloride (Potassium Chloride Er 20 Meq Tab.Er.Prt) 20 meq PO BID [facility] Last Admin: 03/27/22 07:59 Dose: 20 meq Documented By: DIONNE Sodium Chloride (0.9 % Sodium Chloride Flush 3 Ml Syringe) 3 ml IVFLUSH QSHIFT [facility] Last Admin: 03/27/22 08:00 Dose: 3 ml Documented By: DIONNE Vitamin D (Cholecalciferol (Vitamin D3) 25 Mcg Tablet) 25 mcg PO BEDTIME [facility] Last Admin: 03/26/22 21:07 Dose: 25 mcg Documented By: DIEGO Labs 03/27/22 05:49 03/27/22 05:49 Labs: Laboratory Results - last 24 hr 03/27/22 03/27/22 05:49 05:49 MCV 105.7 H MCH 32.5 MCHC 30.8 L RDW 19.3 H Plt Count 124 L MPV 10.1 Immature Gran % (Auto) 0.5 H Neut % (Auto) 79.1 H Lymph % (Auto) 11.4 L [place] % (Auto) 8.8 Eos % (Auto) 0.0 Baso % (Auto) 0.2 Lymph # (Auto) 1.0 L [place] # (Auto) 0.8 Eos # (Auto) 0.0 Baso # (Auto) 0.0 Abs Immat Gran (auto) 0.04 H Absolute Neuts (auto) 6.8 Absolute Nucleated RBC 0.000 Nucleated RBC % (auto) 0.0 Anion Gap 12 Estim Creat Clear Calc 82.1 Estimated GFR > 60 Random Glucose 108 Calcium 8.1 L Assessment and Plan (1) Pneumonia: Status: Acute Plan 67-year-old female with history HFpEF, unspecified atrial arrhythmia, anxiety/depression,, right-sided invasive ductal carcinoma the right breast with pancytopenia recently completed final cycle carbo platin/docetaxel/trastuzumab/pertuzumab on 03/06 ([facility]), hypokalelmia, dermatomyositis on IVIG, hypertension, insomnia, nonsustained SVT, bilateral lower extremity edema to be observed for RUL pneumonia. #RUL groundlass infiltrate -interval development of multifocal groundglass infiltrate solid nodule in the RUL measuring up to 8mm representing infectious/inflammatory etiology vs metastatic disease -Pt symptomatic with sob, cough, chest congestion, and pleuritic cp. Afebrile, no sepsis. Given immunocompromised state with recent admissions treated with abx -Continue cefepime and vanco -Legionella, strep pneumonia cultures pending. MRSA swab pending -add Duonebs q4h, albuterol prn -Add solumedrol 40mg BID -Oncology consult pending -Consider pulm consult if no improvement #Right sided invasive ductal carcinoma -Completed carboplatin/docetaxel/trastuzumab/pertuzumab on 03/06 -Per pt, supposed to start maintenance therapy tomorrow -Oncology consult pending #Elevated Ddimer -CTA chest neg for PE #HFpEF -CTA chest showing small right sided pleural effusion -BNP pending -3+ BLE pitting edema -Continue lasix 20mg PO. One time dose 20mg IV added -Follow BMP, strict I&O, 1.5L fluid restrictions #Thrombocytopenia from chemo- Plt 105 -MOnitor closely whole on lovenox #Chronic normocytic anemia- due to chemo/cancer -H/H stable #Atrial arrhythmia- rate controlled - Previously following with cardiology for PACs - Continue digoxin #Chronic diarrhea- r/t chemotherapy -loperamide prn #Hypokalemia- resolved -K 3.6 today -Continue KCl BID -Follow BMP #Hypomagnesemia -Repleted -Continue home mag dose -Follow mag DVT prophylaxis- lovenox Full code Pt requires inpt stay of at least two midnights for management of Time Spent With Patient Time: Total time managing care of this patient today ____ minutes. Quality Stroke Does the patient have a stroke diagnosis?: No VTE Prior VTE?: No VTE Risk Level:: Medical - moderate - high VTE Device Contraindication: Treatment Not Indicated VTE Drug Contraindication: N/A - Med Ordered
[2022-03-27 11:27] LABS: Magnesium 1.9 mg/dL (1.6-2.6)
[2022-03-27] MEDS: methylPREDNISolone Sod Succ 40 MG/ML VIAL IVPUSH ×2 (11:27→21:17)
[2022-03-27] MEDS: Enoxaparin Sodium 40 MG/0.4 ML SYRINGE SUBCUT (11:27)
[2022-03-27 12:09] LABS: MRSA Nasal PCR NEGATIVE (Negative); SA Nasal PCR NEGATIVE (Negative)
--- NOTE | 2022-03-27 13:56 | HE.PHANOTE ---
Vancomycin Dosing Patient level is 17 after 2 dose. Will decrease dose to 1500 mg Q24H. Will start 03/28 @ 0000. Next level 03/28 @ 2130. Abby MastD
--- NOTE | 2022-03-27 16:22 | P.CNHO_ITS ---
Subjective - Subjective Chief complaint: CONSULT FOR: 1. BREAST CANCER. 2. PNEUMONIA. Patient: new to practice Consult date: 03/27/22 Requesting Physician: Abigail Zaidi. Primary Care Provider: THA Cast Medical Summary: DIAGNOSIS: 1. BREAST CANCER. STATUS POST COMPLETION OF CHEMOTHERAPY . TO START MAINTENANCE THERAPY. 2. PNEUMONIA. HPI - Consult Narrative Reason for consult: consult for: 1. Pneumonia. 2. Breast cancer. Narrative: Kate Almaguer is a 67 year old lady who presented yesterday, with the chief Complaints of cough, sob, pleuritic cp. She has a history HFpEF, unspecified atrial arrhythmia, anxiety/depression, H/O right-sided invasive ductal carcinoma the right breast recently completed final cycle carboplatin/docetaxel/trastuzumab/pertuzumab on 03/06. She presented to the ED yesterday morning for evaluation of nonproductive cough, shortness of breath, chest congestion, and pleuritic chest pain. She is a former smoker. She denied any fevers, chills, sore throat, nasal congestion, abd pain, n/v, urinary symptoms, orthopnea, PND, wheezing, chest pressure. She had a recent Hospitalizations 01/08/22.for CHF exacebration and Klebsiella b acteremia/sepsis on 02/09/22. On arrival, patient afebrile. Intermittently tachypnea to 22. No hypoxia. WBC 6.2 (last measured 2.8). H/H 8.8, 27.9%. Reanl function baseline. K 3.1. BNP pending. DDimer 535. CTA chest negatvive for PE, showing interval development of multifocal groundglass infiltrate solid nodule in the RUL measuring up to 8mm representing infectious/inflammatory etiology vs metastatic disease. Also small left pleural effusion. There is also redemonstration of fluid collection in right breast tissue as well as right axillary hypodense collection. Negative for flu, covid, rsv. Associated symptoms: hypokalelmia, dermatomyositis on IVIG, hypertension, insomnia, nonsustained SVT, bilateral lower extremity edema. Treated with albuterol, IV mag, KCl, methylprednisolone 125mg. Review of Systems Review of Systems: General: No fevers, malaise, unintentional weight loss HEENT: No blurred vision, diplopia. No sore throat, nasal congestion, rhinorrhea, sinus pain, ear pain Cardiovascular: +pleuritic chest pain. No chest pressure, palpitations, or leg edema Respiratory: +shortness of breath, +cough. No wheezing GI: +diarrhea. No abdominal pain, nausea, vomiting, constipation, melena, hematochezia : No dysuria, hematuria, increased urinary frequency, decreased urinary output MSK: No myalgia, back pain Neuro: No headaches, weakness, paresthesias Skin: No rashes or lesions [facility] Medical History: Abdominal pain Acute diastolic (congestive) heart failure Acute hypokalemia Acute on chronic heart failure with preserved ejection fraction (HFpEF) Anemia Anxiety Atrial arrhythmia Bacteremia due to Klebsiella pneumoniae Breast calcification, right Breast cancer, right CHF (congestive heart failure) Colitis Dermatomyositis Diarrhea Encounter to establish care History of COVID-19 Hypertension Insomnia Invasive ductal carcinoma of right breast Lumbar degenerative disc disease Major depression, chronic. Review of Systems - Constitutional Reports system reviewed and no additional complaints, except as documented, Reports fatigue, Reports lack of energy, Reports poor appetite, Reports weight gain, Denies fever(s) - Eyes Reports system reviewed and no additional complaints, except as documented - ENT Reports system reviewed and no additional complaints, except as documented - Cardiovascular Reports system reviewed and no additional complaints, except as documented - Respiratory Reports no additional respiratory complaints, Reports chest congestion, Reports cough, Reports dyspnea - Gastrointestinal Reports system reviewed and no additional complaints, except as documented - Genitourinary Reports no additional female genitourinary complaints - Musculoskeletal Reports system reviewed and no additional complaints, except as documented - Integumentary/Breasts Skin/Breast: Reports no additional skin complaints - Neurologic Reports system reviewed and no additional complaints, except as documented - Psychiatric Reports system reviewed and no additional complaints, except as documented - Endocrine Reports no additional endocrine complaints - Hematologic/Lymphatic Reports system reviewed and no additional complaints, except as documented - Allergic/Immunologic Reports system reviewed and no additional complaints, except as documented Oncology Screenings - ECOG Performance Status ECOG Performance Status: 2 [facility] Medical History: Medical History (Last Reviewed 03/26/22 @ 13:09 by CHI Carnes) Abdominal pain Acute diastolic (congestive) heart failure Acute hypokalemia Acute on chronic heart failure with preserved ejection fraction (HFpEF) Anemia Anxiety Atrial arrhythmia Bacteremia due to Klebsiella pneumoniae Breast calcification, right Breast cancer, right CHF (congestive heart failure) Colitis Dermatomyositis Diarrhea Encounter to establish care History of COVID-19 Hypertension Insomnia Invasive ductal carcinoma of right breast Lumbar degenerative disc disease Major depression, chronic Nonsustained supraventricular tachycardia Pain in both feet Pancolitis Pancytopenia Pedal edema Port-A-Cath in place SIRS (systemic inflammatory response syndrome) UTI (urinary tract infection) Functional capacity: uses cane/walker Patient : No Family History: Family History (Last Reviewed 03/26/22 @ 13:09 by CHI Carnes) Mother No problems noted. Father Breast cancer Bone cancer Brother Substance use disorder Paternal Aunt Breast cancer Surgical History: Surgical History (Last Reviewed 03/26/22 @ 13:09 by CHI Carnes) History of arthroscopic knee surgery History of section History of cholecystectomy History of fusion of cervical spine History of gastric bypass History of hysterectomy History of tonsillectomy Hx of colonoscopy Status post right breast lumpectomy Social History: Social History (Last Reviewed 03/26/22 @ 13:09 by CHI Carnes) Living Situation History: Household Members: Significant Other Household Members: Family Household Members: Children Housing: House Are you a primary respiratory care assistant to a significant other at home: No Do you presently have visiting nurse or other home services: Yes Do you presently have visiting nurse or other home services comment: [facility] Tobacco History: Patient Tobacco Use Status: Former Tobacco user Tobacco use type: Cigarette Smoke Quit Date: 12 years ago e-Cigarette/Vaping Use: Never Used Second Hand Smoke Exposure: No Advance Directives: Advance Directives Date on File: 11/28/21 Occupation Assessmet: service: No Current occupational status: unemployed Current occupational status: retired Home Medications and Allergies Current Medications: Current Medications Acetaminophen (Acetaminophen 325 Mg Tablet) 650 mg PO Q6H PRN PRN Reason: Pain, Mild (Pain Scale 1-3) Albuterol Sulfate (Albuterol Sulfate (0.083%) 2.5 Mg/3 Ml Vial.Neb) 2.5 mg INHALE Q3H PRN PRN Reason: Shortness of Breath/Wheezing Last Admin: 03/27/22 08:34 Dose: 2.5 mg Calcium Carbonate/Cholecalciferol (Calcium + Vitamin D 250 Mg Tablet) 500 mg PO DAILY [facility] Last Admin: 03/27/22 07:59 Dose: 500 mg Clonidine HCl (Clonidine Hcl 0.2 Mg Tablet) 0.2 mg PO BEDTIME [facility]; Protocol Last Admin: 03/26/22 21:04 Dose: 0.2 mg Albuterol Sulfate 2.5 mg/ (Ipratropium [place] 0.5 mg) 0 mg INHALE RQ4H WHILE AWAKE [facility] Last Admin: 03/27/22 12:17 Dose: 1 each Cyanocobalamin (Cyanocobalamin (Vitamin B-12) 1,000 Mcg Tablet) 1,000 mcg PO BEDTIME [facility] Last Admin: 03/26/22 21:07 Dose: 1,000 mcg Digoxin (Digoxin 0.25 Mg Tablet) 0.25 mg PO DAILY [facility] Last Admin: 03/27/22 09:27 Dose: 0.25 mg Duloxetine HCl (Duloxetine Hcl 60 Mg Capsule.Dr) 60 mg PO DAILY [facility] Last Admin: 03/27/22 07:59 Dose: 60 mg Enoxaparin Sodium (Enoxaparin Sodium 40 Mg/0.4 Ml Syringe) 40 mg SUBCUT Q24H [facility] Last Admin: 03/27/22 11:27 Dose: 40 mg Furosemide (Furosemide 20 Mg Tablet) 20 mg PO DAILY [facility]; Protocol Last Admin: 03/27/22 08:00 Dose: 20 mg Cefepime HCl 2 gm/ Sodium (Chloride) 50 mls @ 100 mls/hr IV Q8H [facility] Last Infusion: 03/27/22 14:59 Dose: Infused Vancomycin HCl 1,500 mg/ (Sodium Chloride) 500 mls @ 333.333 mls/hr IV Q24H [facility] Loperamide HCl (Loperamide Hcl 2 Mg Capsule) 2 mg PO Q4H PRN PRN Reason: Diarrhea Magnesium Oxide (Magnesium Oxide 400 Mg Tablet) 400 mg PO BID [facility] Last Admin: 03/27/22 08:00 Dose: 400 mg Methylprednisolone Sodium Succinate (Methylprednisolone Sod Succ 40 Mg/Ml Vial) 40 mg IVPUSH Q12H [facility] Last Admin: 03/27/22 11:27 Dose: 40 mg Ondansetron HCl (Ondansetron Hcl 4 Mg/2 Ml Vial) 4 mg IVPUSH Q8H PRN PRN Reason: Nausea and Vomiting Pharmacy Consult (Consult Rx Perform Med Rec) 1 each MISCELLANE ONCE PRN PRN Reason: Consult order Pharmacy Consult (Consult Rx Vancomycin Dosing) 1 each MISCELLANE DAILY PRN PRN Reason: Consult order Potassium Chloride (Potassium Chloride Er 20 Meq Tab.Er.Prt) 20 meq PO BID [facility] Last Admin: 03/27/22 07:59 Dose: 20 meq Sodium Chloride (0.9 % Sodium Chloride Flush 3 Ml Syringe) 3 ml IVFLUSH QSHIFT [facility] Last Admin: 03/27/22 15:38 Dose: Not Given Vitamin D (Cholecalciferol (Vitamin D3) 25 Mcg Tablet) 25 mcg PO BEDTIME [facility] Last Admin: 03/26/22 21:07 Dose: 25 mcg Home Medications Medication Instructions Recorded Confirmed Type cyanocobalamin (vitamin B-12) 1,000 mcg PO BEDTIME 10/12/21 03/26/22 History 1,000 mcg capsule calcium carbonate 600 mg-vitamin 1 tab PO DAILY 10/31/21 03/26/22 History D3 10 mcg (400 unit) tablet cholecalciferol (vitamin D3) 25 25 mcg PO BEDTIME 11/23/21 03/26/22 History mcg (1,000 unit) tablet duloxetine 60 mg capsule,delayed 60 mg PO DAILY 01/18/22 03/26/22 History release (Cymbalta) furosemide 20 mg tablet (Lasix) 20 mg PO DAILY 02/04/22 03/26/22 History alendronate 70 mg tablet 70 mg PO SA 03/26/22 03/26/22 History clonidine HCl 0.2 mg tablet 0.2 mg PO BEDTIME SLEEP 03/26/22 03/26/22 History magnesium oxide 400 mg (241.3 mg 400 mg PO BID 03/26/22 03/26/22 History magnesium) tablet Allergies Allergy/AdvReac Type Severity Reaction Status Date / Time No Known Allergies Allergy Verified 03/01/22 09:26 Physical Exam Vital signs: Vital Signs Temp 98.3 F 03/27/22 15:13 Pulse 89 03/27/22 15:13 Resp 20 03/27/22 15:13 BP 111/53 L 03/27/22 15:13 Pulse Ox 96 03/27/22 15:13 O2 Del Method 03/27/22 15:13 Intake & Output 03/26/22 03/27/22 03/27/22 18:59 06:59 18:59 Intake Total 620 / 1285 665 / 1285 530 / 530 Balance 620 / 1285 665 / 1285 530 / 530 Intake: Intake, Oral Amount 300 / 300 480 / 480 Intake, IV Amount 620 / 985 365 / 985 50 / 50 Magnesium Sulfate/H2O 2 gm In 50 / 50 50 ml @ 25 mls/hr IV ONCE ONE Rx#:[id number] cefEPime HCl 2 gm In 0.9 % 50 / 150 100 / 150 50 / 50 Sodium Chloride 50 ml @ 100 mls /hr IV Q8H [facility] Rx#:[id number] vancomycin HCL 750 mg In 0.9 % 265 / 265 Sodium Chloride 250 ml @ 265 mls/hr IV Q12H [facility] Rx#: [id number] vancomycin/NS 2,000 mg In 520 520 / 520 ml @ 260 mls/hr IV ONCE ONE Rx# :[id number] Other: Meal Refused No NPO No Lunch % Eaten 100% Number of Unmeasured Voids 2 Urine Bathroom Weight 90.718 kg Weight 90.718 kg - Constitutional Present: moderate distress - Routine HEENT Exam Head: Present: normal inspection, normocephalic Eye: Present: normal appearance ENT: Present: mucous membranes moist - Routine Neck Exam Present: supple - Routine Respiratory Exam Present: decreased breath sounds - Routine Cardiovascular Exam Cardiovascular: Present: RRR, S1, S2 - Routine Abdominal Exam Present: soft, nontender - Routine Skin Exam Present: intact, normal turgor Hem/Onc Consult Result - Labs CBC & Chem 7: 03/27/22 05:49 03/28/22 05:18 Labs: Short CBC 03/27/22 Range/Units 05:49 WBC 8.6 (4.8-10.8) X10*3/uL Hgb 8.0 L (12.0-16.0) g/dl Hct 26.0 L (37.0-47.0) % Plt Count 124 L (160-400) X10*3/uL BMP 03/27/22 05:49 Sodium 141 Potassium 3.6 Chloride 107 Carbon Dioxide 26 BUN 12 Creatinine 0.73 Calcium 8.1 L Assessment and Plan Patient Active problem list reviewed?: Yes (1) Invasive ductal carcinoma of right breast Problem details: micrometastestases in sentinel node Status: Acute Assessment and plan: This is a pleasant 66-year-old lady with recent diagnosis of right breast cancer. She denies having felt any lump. It was picked up on a mammogram. Mammogram from 08/08 revealed: Outside studies are now available for comparison from 10/19/2019 and dating to 07/24/2017. The right and left breast findings do not appear to have been present on prior studies and callback is still recommended, as described in the initial study. OVERALL ASSESSMENT: BI-RADS 0 - Incomplete: Needs additional Imaging. RECOMMENDATION: Additional Imaging required. Repeat mammogram from 09/13, with additional views: Subtle increased stromal markings with scattered faint amorphous calcifications medial retro areola right breast. Stereotactic biopsy recommended. She underwent stereotactic biopsy of the right breast abnormality on 09/20. Pathology revealed: Invasive ductal carcinoma grade 2. ER positive, IN negative, HER2 2+, fish pending. Proliferation index: 12% by Ki-67 immunostain. She has had genetic testing done twice and both times it has come back negative. She was rather undecided initially between lumpectomy with radiation versus a simple mastectomy. In view of the concern of radiation in the setting of dermatomyositis, I offered to get an opinion from Dr. Webb. A lumpectomy was recommended. She underwent a mastectomy on 10/12, pathology revealed: Tumor size: 12 mm. Focality: Single focus. Grade: 3. Mitotic score: 2. No DCIS nor LCIS identified. Lymphovascular invasion identified. 1/3 sentinel lymph nodes positive for metastatic tumor: Micro metastases (pN1mi (sn.) Size of micro met: 1.5 mm. ER: Positive. IN: Negative. HER2 Liz 2+, fish positive. Ki-67: Low, 12%. Stage:pT1c. Since she has HER2 positive disease with micro metastatic disease to the axilla, she was deemed a candidate for adjuvant systemic chemotherapy. I offered her CHTP. I did touch base with Dr. Felix. She completed her 6th cycle on 03/06. She was scheduled to start on the targeted therapy from today. Unfortunately she ended up getting admitted to the hospital. 1. CT scan of the chest has revealed: RUL groundlass infiltrate. -interval development of multifocal groundglass infiltrate solid nodule in the RUL measuring up to 8mm representing infectious/inflammatory etiology vs metastatic disease No sepsis. -Legionella, strep pneumonia cultures pending. MRSA swab ordered. She has been covered for pneumonia empirically with cefepime and vanco, In view of immunocompromised state with recent admissions treated with abx. She had an Elevated D dimer, however fortunately, CTA chest is neg for PE. Also showing small right sided pleural effusion: Parapneumonic versus CHF. BNP is pending. 2. Right sided invasive ductal carcinoma She has completed carboplatin/docetaxel/trastuzumab/pertuzumab on 03/06. She was supposed to start maintenance therapy today. Thrombocytopenia from chemo- Plt 105 To be monitor, while on lovenox. Normocytic anemia: Related to chemotherapy, plus underlying dermatomyositis. PLAN: Continue treatment for pneumonia as you are doing. Will transfuse 1 unit of blood for hemoglobin down to 7.8. Follow platelet count carefully. Will delay immunotherapy till next week. She will be seen by surgery, for bilateral mastectomies in view of the genetic mutation leading to high risk of recurrence. Thank you for this consult, I will follow along with you, Sincerely, - Time Spent With Patient Time Spent with Patient (in minutes): 30
[2022-03-27] MEDS: Furosemide 20 MG/2 ML VIAL IVPUSH (17:03)
[2022-03-27 17:47] LABS: B Type Natriuretic Peptide 64 pg/mL (<100)
[2022-03-27] MEDS: Cholecalciferol (Vitamin D3) 25 MCG TABLET PO (21:17)
[2022-03-27] MEDS: cloNIDine HCL 0.2 MG TABLET PO (21:17)
[2022-03-27] MEDS: Cyanocobalamin (Vitamin B-12) 1,000 MCG TABLET 1000 MCG PO (21:18)
[2022-03-27] MEDS: vancomycin HCL 1,500 MG in 0.9 % Sodium Chloride 500 ML 333.33 MG IV (23:22)
[2022-03-28 03:22] VITALS: BP 122/74; PULSE 100; RESP 18; TEMP 36.6; O2SAT 97
[2022-03-28] MEDS: cefEPime HCl 2 GM in 0.9 % Sodium Chloride 50 ML IV ×2 (05:09→14:05)
[2022-03-28 06:37] LABS: Anion Gap 12 (12-20); Blood Urea Nitrogen 12 mg/dL (9-16); Calcium 8.4 mg/dL (8.4-10.2); Carbon Dioxide 28 mmol/L (22-29); Chloride 107 mmol/L (96-108); Creatinine Clr Calc Pharmacy 84.4; Estimated Glomerular Filt Rate > 60; Glucose Random 155 mg/dL (60-115); Potassium 4.7 mmol/L (3.3-5.1); Sodium 142 mmol/L (135-145)
[2022-03-28 07:27] VITALS: BP 128/68; PULSE 81; RESP 18; TEMP 36.9; O2SAT 97
[2022-03-28 07:44] VITALS: PULSE 90; RESP 20; O2SAT 97
[2022-03-28] MEDS: Furosemide 20 MG TABLET PO ×2 (07:44→10:28)
[2022-03-28] MEDS: Magnesium Oxide 400 MG TABLET PO (07:44)
[2022-03-28] MEDS: DULoxetine HCl 60 MG CAPSULE.DR PO (07:44)
[2022-03-28] MEDS: Potassium Chloride ER 20 MEQ TAB.ER.PRT PO (07:44)
[2022-03-28] MEDS: Calcium + Vitamin D 250 MG TABLET 500 MG PO (07:44)
[2022-03-28] MEDS: Digoxin 0.25 MG TABLET PO (07:44)
[2022-03-28] MEDS: 0.9 % Sodium Chloride Flush 3 ML SYRINGE IVFLUSH (07:45)
[2022-03-28] MEDS: predniSONE 20 MG TABLET 40 MG PO (10:28)
[2022-03-28] MEDS: Enoxaparin Sodium 40 MG/0.4 ML SYRINGE SUBCUT (11:05)
[2022-03-28 14:53] VITALS: PULSE 96; RESP 18; O2SAT 97
--- NOTE | 2022-03-28 15:19 | MHC.CM.PN ---
IMM 03/28/22, EMR REVIEWED, PT WITH BREAST CA AND PNA, CM MET W/PT AND S.O. AT BEDSIDE, PT REPORTS SHE LIVES WHER S.O. 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 PT VERIFIES PCP IS IKER KELLY, DANNY X2 AND PT REPORTS HER HCP IS S.OWaqas TARIQ [phone] ANTIC POSSIBLE D/C TODAY W/RESUMP OF [facility] AND S.O. FOR TRANSPORT
[2022-03-28 15:22] VITALS: BP 123/55; PULSE 95; RESP 18; TEMP 36.5; O2SAT 97
--- NOTE | 2022-03-28 15:37 | P.DS_ITS ---
DS: Providers Provider Date of Service: 03/28/22 Date of admission: 03/26/22 12:00 Date of discharge: 03/28/22 Primary care physician: THA Cast Admitting clinician: Abigail Mistry Attending physician on admission: Omero Castillo Consults: 03/26/22 13:10 Consult to Hematology / Oncology Routine Consulting Provider: Patrick Alvarez Reason for consultation: RUL nodule, ?pneumonia, breast cancer Attending physician on discharge: Omero Castillo Discharging clinician: Abigail Mistry DS: Diagnosis Discharge Diagnosis (1) Invasive ductal carcinoma of right breast: Status: Acute DS: Summary Hospital Course Hospital Course: HPI on admission 03/26/22: 67-year-old female with history HFpEF, unspecified atrial arrhythmia, anxiety/depression,, right-sided invasive ductal carcinoma the right breast with pancytopenia recently completed final cycle carboplatin/docetaxel/trastuzuma b/pertuzumab on 03/06 ([facility]), hypokalelmia, dermatomyositis on IVIG, hypertension, insomnia, nonsustained SVT, bilateral lower extremity edema presented to the ED earlier this morning for evaluation of nonproductive cough, shortness of breath, chest congestion, and pleuritic chest pain that started yesterday. She is a former smoker. Denies any fevers, chills, sore throat, nasal congestion, abd pain, n/v, urinary symptoms, orthopnea, PND, wheezing, chest pressure. Has had recent Hospitalizations 01/08/22.? for CHF exacebration and Klebsiella bacteremia/sepsis on 02/09/22. On arrival, patient afebrile. Intermittently tachypnea to 22. No hypoxia. WBC 6.2 (last measured 2.8). H/H 8.8, 27.9%. Reanl function baseline. K 3.1. BNP pending. DDimer 535. CTA chest negatvive for PE, showing interval development of multifocal groundglass infiltrate solid nodule in the RUL measuring up to 8mm representing infectious/inflammatory etiology vs metastatic disease. Also small left pleural effusion. There is also redemonstration of fluid collection in right breast tissue as well as right axillary hypodense collection. Treated with albuterol, IV mag, KCl, methylprednisolone 125mg. Negative for flu, covid, rsv. Hospital Course: Pt admitted for management of pneumonia in immunocompromised patient. Treated with braod spectrum abx- vanco and cefepime- given recent hospitalizations and immunocompromised status. CTA chest showed interval development of multifocal groundglass infiltrate solid nodule in the RUL measuring up to 8mm representing infectious/inflammatory etiology vs metastatic disease. Given symptoms, most likely pneumonia. However, oncology was consulted and agreed with proposed treatment plan. There was no sepsis or hypoxia. She was also treated with methylprednisolone, transitioned to prednisone as well as nebulizer treatments. Cultures for strep pneumo, legionella pending though low suspicion for this. MRSA swab negative. She did develop BLE edema and addl dose IV lasix admin istered with improvement. BNP baseline. There was no leukocytosis throughout admission and renal function and electrolyte levels normal. Likely related to steroid use, no exacerbation of HFpEF. She will be discharged on augmentin, doxycycline, and prednisone 40mg. Advised to follow up soon with PCP and Dr. alvarez with repeat imaging recommended to ensure resolution of RUL opacities. Status at Discharge Functional status at discharge: independent ambulation Overall status at discharge: patient is progressing back to baseline Time Spent with Patient Time attestation: Total time managing care of this patient today ____ minutes. Discharge coordination time: Greater than 30 minutes Quality: Safe Use of Opioids Does Pt have an Active Cancer Diagnosis on the Problem List?: Yes Opioid Measure Date for [facility] Report: 02/26/22 Opioid Measure Time for [facility] Report: 17:10 Quality: Stroke Does the patient have a stroke diagnosis?: No Physical Exam Vital Signs: Vital Signs: Last Vital Signs Temp 97.7 F 03/28/22 15:22 Pulse 95 03/28/22 15:22 Resp 18 03/28/22 15:22 BP 123/55 L 03/28/22 15:22 Pulse Ox 97 03/28/22 15:22 O2 Del Method 03/28/22 15:22 BMI result Body Mass Index 35.4 Constitutional - Awake and Alert, No apparent distress Eyes - PERRLA, EOMI Cardiovascular - S1S2, RRR, 2+ ble edema Respiratory - Normal lung expansion, Normal respiratory effort, No respiratory distress, CTA bilaterally Gastrointestinal - NT / ND; +BS; No rebound or guarding Extremities - no calf tenderness bilaterally, no swelling Skin - Warm/Dry Neurological - Alert & oriented x3 Psychological - Appropriate affect DS: Data Data Completed and Pending Completed studies during hospitalization [Text1]: Procedures Excision of Descending Colon, Via Natural or Artificial Opening Endoscopic, Diagnostic (11/23/21) Transfusion of Nonautologous Red Blood Cells into Peripheral Vein, Percutaneous Approach (02/04/22) Labs on day of discharge: Laboratory Results - last 24 hr 03/27/22 03/28/22 17:17 05:18 Sodium 142 Potassium 4.7 D Chloride 107 Carbon Dioxide 28 Anion Gap 12 BUN 12 Creatinine 0.71 Estim Creat Clear Calc 84.4 Estimated GFR > 60 Random Glucose 155 H Calcium 8.4 B-Natriuretic Peptide 64 Preliminary micro results at discharge 03/26/22 13:58 Blood Culture - Preliminary Blood - Venous No growth after 24 hours. 03/26/22 13:58 Blood Culture - Preliminary Blood - Venous No growth after 24 hours. Discharge Plan Discharge Anticipated Discharge Date/Time: 03/28/22 15:24 Patient Disposition: Home, Self-Care Referrals: Leslie Washington FNP [Primary Care Provider] - 1 Week Discharge Medications: New prednisone 20 mg tablet 40 mg PO DAILY Qty: 4 0RF amoxicillin-pot clavulanate 875-125 mg tablet 1 tab PO BID Qty: 9 0RF doxycycline hyclate 100 mg tablet 100 mg PO BID Qty: 9 0RF Continued digoxin 250 mcg (0.25 mg) tablet 0.25 mg PO DAILY Qty: 90 1RF cyanocobalamin (vitamin B-12) 1,000 mcg capsule 1,000 mcg PO BEDTIME magnesium oxide 400 mg (241.3 mg magnesium) tablet 400 mg PO BID alendronate 70 mg tablet 70 mg PO SA clonidine HCl 0.2 mg tablet 0.2 mg PO BEDTIME duloxetine [Cymbalta] 60 mg capsule,delayed release(DR/EC) 60 mg PO DAILY cholecalciferol (vitamin D3) 25 mcg (1,000 unit) Tablet 25 mcg PO BEDTIME loperamide 2 mg Capsule 2 mg PO Q4H PRN (Reason: Diarrhea) Qty: 24 0RF furosemide [Lasix] 20 mg tablet 20 mg PO DAILY Hold Instructions: Resume on 02/15/22. calcium carbonate-vitamin D3 600 mg-10 mcg (400 unit) tablet 1 tab PO DAILY potassium chloride [Klor-Con M20] 20 mEq tablet,ER particles/crystals 20 meq PO BID Qty: 60 4RF Discharge Orders: Discharge Order (Routine); Ordered 03/28/22 Ordered By: Abigail Mistry Diet: Regular diet Activity on Discharge: As tolerated Stand Alone Forms: Patient Portal Discharge page Care Plan Goals: Complete treatment for pneumonia with antibiotics and steroids Follow up soon with Dr. Alvarez and PCP Health Concerns: Pneumonia Invasive ductal carcinoma of the right breast Plan of Treatment: Pneumonia -you were admitted for management of a community-acquired pneumonia in the right upper lobe. CT of the chest showed several opacities in the right upper lobe most consistent with pneumonia though there was a question of metastatic disease. Given your symptoms consistent with pneumonia and evaluation by Oncology, you were treated with broad-spectrum antibiotics. -continue oral antibiotics outpatient to complete treatment of pneumonia. Take Augmentin 875 mg twice daily and doxycycline 100 mg twice daily, next dose due this evening. Be sure to take with food and a full glass of water and do not lay down for at least 1 hour after taking doxycycline. Complete course of prednisone with 40 mg every morning for the next 2 days. -follow-up with PCP and Dr. Alvarez soon as he will require follow-up imaging in about 5-6 weeks. Assessment: As above
[2022-03-30 18:48] LABS: Strep Pneumo Ag urine Not Detected (Not Detected)
[2022-04-01 23:06] LABS: Legionella Ag Urine Not Detected (Not Detected)
== END 2022-03-28 18:00 | disposition home or self-care (01) ==
LOC: HO.ED 10:35 → HO.EDOVER 12:13 → HO.S3 03-27 07:32
PROVIDERS: Admitting Provider Physician Assistant; Emergency Provider Emergency Medicine; PCP Nurse Practitioner Family; Visit Provider Physician Assistant
DX: J18.9 Pneumonia, unspecified organism (principal); C50.911 Malignant neoplasm of unspecified site of right female breast; I49.9 Cardiac arrhythmia, unspecified; R60.0 Localized edema; R05.9 Cough, unspecified; R06.02 Shortness of breath; R07.89 Other chest pain; Z87.891 Personal history of nicotine dependence; Z79.899 Other long term (current) drug therapy; Z20.828 Contact with and (suspected) exposure to other viral communicable diseases; Z20.822 Contact with and (suspected) exposure to COVID-19
CPT/HCPCS: 0241U; 36415; 71275; 80048; 80053; 80202; 83690; 83735; 83880; 84484; 85025; 85379; 87040; 87449; 87640; 87641; 87899; 93005; 94640; 96365; 96366; 96372; 96375; 96376; 99221; 99285; J0692; J1642; J1650; J1940; J2920; J2930; J3370; J3371; J3475; Q9967

== ENCOUNTER → 2022-04-05 13:56 | Outpatient (REF) | payer MEDICARE, SELFPAY | LOC: HO.SL 13:56 | PROVIDERS: Visit Provider Internal Medicine Cardiovascular Disease | DX: G47.10 Hypersomnia, unspecified (principal); R06.83 Snoring; I50.9 Heart failure, unspecified | CPT/HCPCS: 95806 ==

== ENCOUNTER 2022-04-12 08:17 | Outpatient (REF) | payer MEDICARE, SELFPAY | END 2022-04-12 08:18 | disposition home or self-care (01) | LOC: HO.MDS 08:17 | PROVIDERS: Visit Provider Internal Medicine Rheumatology | DX: Z45.2 Encounter for adjustment and management of vascular access device (principal); M33.10 Other dermatomyositis, organ involvement unspecified; N63.31 Unspecified lump in axillary tail of the right breast; C50.511 Malignant neoplasm of lower-outer quadrant of right female breast; Z92.21 Personal history of antineoplastic chemotherapy | CPT/HCPCS: 96365; 96366; 99212; J1569; J1642 ==

== ENCOUNTER 2022-04-13 08:12 | Outpatient (REF) | payer MEDICARE, SELFPAY | END 2022-04-13 08:13 | disposition home or self-care (01) | LOC: HO.MDS 08:12 | PROVIDERS: PCP Nurse Practitioner Family; Visit Provider Internal Medicine Rheumatology | DX: Z45.2 Encounter for adjustment and management of vascular access device (principal); M33.10 Other dermatomyositis, organ involvement unspecified | CPT/HCPCS: 96365; 96366; J1569; J1642 ==

== ENCOUNTER → 2022-04-16 10:55 | Outpatient (BNVA) | payer MEDICARE, SELFPAY | PROVIDERS: PCP Nurse Practitioner Family; Visit Provider Internal Medicine Rheumatology | DX: M33.90 Dermatopolymyositis, unspecified, organ involvement unspecified (principal); M85.80 Other specified disorders of bone density and structure, unspecified site; M51.36 Other intervertebral disc degeneration, lumbar region; C50.911 Malignant neoplasm of unspecified site of right female breast | CPT/HCPCS: 99212 ==

== ENCOUNTER → 2022-04-18 09:33 | Outpatient (BNVA) | payer MEDICARE, SELFPAY | PROVIDERS: PCP Nurse Practitioner Family; Visit Provider Internal Medicine Endocrinology, Diabetes & Metabolism | DX: M85.80 Other specified disorders of bone density and structure, unspecified site (principal) | CPT/HCPCS: 99212 ==

== ENCOUNTER 2022-04-24 09:52 | Outpatient (REF) | payer MEDICARE, SELFPAY ==
--- NOTE | ~2022-04-24 | MM_ITS ---
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 Probable seroma right axilla noted on CTA chest. Also history dermatomyositis. COMPARISON: CTA chest 03/26/2022, 9 12/14/2021; mammography 03/23/2022, 09/20/2021, 09/13/2021. FINDINGS: Proper informed consent is obtained from the patient after discussion of the procedure, potential risks and complications, and alternatives. Patient was given an opportunity for questions. The patient appeared to understand. The patient consented to the procedure and signed the consent form. GUIDANCE: Ultrasound-guided; aseptic technique. LESION: Targeted right axillary ultrasound demonstrates a circumscribed predominantly cystic mass right axilla measuring 4.8 x 3.1 cm, probable complicated seroma. Margins are circumscribed and there is increased through-transmission of sound. There is an internal peripheral area of intermediate echogenicity with irregular contour with the fluid/lumen and measuring 2.0 x 1.5 cm. No associated color flow. APPROACH: Lateral medial. ANESTHESIA: 15 mL carbonated 1% lidocaine. DERMATOTOMY: Single skin asa dermatotomy performed. NEEDLE: 14-gauge Achieve core biopsy device with 13.5-gauge co-axial guide needle. ASPIRATION: The 13.5 gauge guide needle was used for aspiration. Initial 10 mL pink serous fluid. An additional 9 mL hemorrhagic fluid aspirated. CORES: 4 (directed to the internal avascular solid component). Specimen sent to lab for histology. The seroma cavity is refilled with echogenic material (blood) during sampling. No additional aspiration able to be achieved. CLIP: HydroMARK; shape: open coil. POST PROCEDURE DIGITAL BREAST TOMOSYNTHESIS, RIGHT: The post biopsy mammogram is performed in separate room using separate digital breast tomosynthesis equipment from the biopsy procedure. Right MLO view is obtained. 2-D synthesized images generated from the tomography. There are scattered areas of fibroglandular density (breast composition category: b). The clip marker is in position overlying the seroma/hematoma. Overall postbiopsy size similar to the prior mammography. There is anterior right breast skin thickening and scarring as before. No acute abnormality. The patient tolerated the procedure well. No immediate complications. Home instructions reviewed with the patient. Final histology and cytology results are pending. Preliminary procedure findings called to medical communication specialist (Tamra) for Dr. Palacios on 04/24/2022. Case discussed with pathologist following sampling. MM/MM tomosynthesis diagnostic RT IMPRESSION: 1. Status post ultrasound-guided aspiration and core biopsy right axilla. 2. Clip placed: HydroMARK; shape: open coil. 3. Histology and cytology pending. An addendum report will be issued.
[2022-04-24] MEDS: Lidocaine HCl 1 % 20 ML VIAL 10 ML SUBCUT (11:54)
[2022-04-24] MEDS: Sodium Bicarbonate 8.4% 50 MEQ/50 ML VIAL SUBCUT (11:56)
== END 2022-04-24 09:53 | disposition home or self-care (01) ==
LOC: HO.MAMMO 09:52
PROVIDERS: PCP Nurse Practitioner Family; Visit Provider Surgery
DX: R59.0 Localized enlarged lymph nodes (principal)
CPT/HCPCS: 38505; 76942; 77061; 77065; 88112; 88305

== ENCOUNTER 2022-04-26 12:09 | Outpatient (REF) | payer MEDICARE, SELFPAY | END 2022-04-26 12:10 | disposition home or self-care (01) | LOC: HO.LAB 12:09 | PROVIDERS: PCP Nurse Practitioner Family; Visit Provider Internal Medicine Rheumatology | DX: Z13.89 Encounter for screening for other disorder (principal) ==

== ENCOUNTER → 2022-05-02 14:45 | Outpatient (BNVA) | payer MEDICARE, SELFPAY | PROVIDERS: PCP Nurse Practitioner Family; Visit Provider Surgery | DX: Z85.3 Personal history of malignant neoplasm of breast (principal) | CPT/HCPCS: 99212 ==

== ENCOUNTER 2022-05-10 08:18 | Outpatient (REF) | payer MEDICARE, SELFPAY | END 2022-05-10 08:19 | disposition home or self-care (01) | LOC: HO.MDS 08:18 | PROVIDERS: Visit Provider Internal Medicine Rheumatology | DX: M33.90 Dermatopolymyositis, unspecified, organ involvement unspecified (principal) | CPT/HCPCS: 96365; 96366; J1569 ==

== ENCOUNTER 2022-05-11 08:17 | Outpatient (REF) | payer MEDICARE, SELFPAY | END 2022-05-11 08:18 | disposition home or self-care (01) | LOC: HO.MDS 08:17 | PROVIDERS: Visit Provider Internal Medicine Rheumatology | DX: M33.90 Dermatopolymyositis, unspecified, organ involvement unspecified (principal) | CPT/HCPCS: 96365; 96366; J1569 ==

== ENCOUNTER → 2022-05-15 13:24 | Outpatient (BNVA) | payer MEDICARE, SELFPAY | PROVIDERS: PCP Nurse Practitioner Family; Referring Provider Nurse Practitioner Family; Visit Provider Internal Medicine Cardiovascular Disease | DX: I50.9 Heart failure, unspecified (principal); I49.8 Other specified cardiac arrhythmias | CPT/HCPCS: 99212 ==

== ENCOUNTER 2022-05-17 09:00 | Outpatient (REF) | payer MEDICARE, SELFPAY ==
[2022-05-17 10:06] LABS: Anion Gap 9 (12-20); Blood Urea Nitrogen 19 mg/dL (9-16); Calcium 8.1 mg/dL (8.4-10.2); Carbon Dioxide 26 mmol/L (22-29); Chloride 108 mmol/L (96-108); Digoxin 0.3 ng/mL (0.8-2.0); Estimated Glomerular Filt Rate > 60; Glucose Random 81 mg/dL (60-115); Magnesium 1.7 mg/dL (1.6-2.6); Potassium 3.3 mmol/L (3.3-5.1); Sodium 140 mmol/L (135-145)
[2022-05-17 10:11] LABS: B Type Natriuretic Peptide 58 pg/mL (<100)
== END 2022-05-17 09:01 | disposition home or self-care (01) ==
LOC: HO.LAB 09:00
PROVIDERS: Visit Provider Internal Medicine Cardiovascular Disease
DX: I50.30 Unspecified diastolic (congestive) heart failure (principal); I49.8 Other specified cardiac arrhythmias; C50.911 Malignant neoplasm of unspecified site of right female breast
CPT/HCPCS: 36415; 80048; 80162; 83735; 83880

== ENCOUNTER → 2022-05-21 12:44 | Outpatient (REF) | payer MEDICARE, SELFPAY ==
--- NOTE | 2022-05-21 12:46 | CA_ITS ---
Transthoracic Echocardiogram Patient (Last, First, Middle): Kate Almaguer, Gender: Female Date of : 1955 Age: 67 Procedure Date: 05/21/2022 Procedure Type: Transthoracic Echocardiogram Location: OP Height: 160.02 cm Weight: 88.45 kg BSA: 1.91 m2 Heart Rate: 71 bpm BP: 161 / 71 mmHg Senior Electrical Design Engineer: SB Referring MD: Patrick Hernández MD Symptoms: follow-up on EF on chemo/limited echo Study Quality: Adequate w contrast ECG Rhythm: Sinus Conclusions: - The left ventricular systolic function is normal. The calculated ejection fraction is 67% by biplane method. Findings Procedure Information Contrast agent, definity, is being given per protocol without apparent complications. Left Ventricle Normal left ventricular cavity size. The left ventricular systolic function is normal. The calculated ejection fraction is 67% by biplane method. There is no evidence of regional wall motion abnormalities. LV peak GLS -20.2%; repeat -18.2%.. Prior Study Comparison No significant change compared to prior study dated: 01/26/2022. Measurements 2D Linear Measurements IVSd: 1.05 0.6-0.9/0.6-1.0 cm LVIDd: 4.39 3.9-5.3/4.2-5.9 cm LVIDd Index: 2.30 2.4-3.2/2.2-3.1 cm/m2 LVIDs: 2.28 2.0-3.6 cm LVPWd: 1.00 0.7-1.1 cm LV Mass: 189.78 67-162/88-224 g LV Mass Index: 99.36 43-95/49-115 g/m2 2D Systolic Function EF 4C: 65.60 >55% EF 2C: 68.50 >55% EF BiP: 66.90 >55% Mitral Valve MV Pk E: 1.23 MV PK A: 0.99 MV Decel Time: 231.00 E/A: 1.20 E'Lateral: 6.42 E'Medial: 6.42 E/E' Med: 19.20 E/E' Lat: 19.20 PHT: 68.00 MVA PHT: 3.24 Decel Placer: 5.34 Diastolic Function MV Pk E: 1.23 MV Pk A: 0.99 E/A: 1.20 E'Medial: 6.42 E/E' Med: 19.20 E' Laterial: 6.42 E/E' Lat: 19.20 Tricuspid Valve RA Press: 15.00 Updated in Other Vendor System with Status of Final Trevor Taveras MD electronically signed on 05/21/2022 4:54:43 PM with status of Final
== END ==
LOC: HO.CARD 12:44
PROVIDERS: PCP Nurse Practitioner Family; Visit Provider Internal Medicine Medical Oncology
DX: C50.911 Malignant neoplasm of unspecified site of right female breast (principal)
CPT/HCPCS: 93308; 93356; Q9957

== ENCOUNTER 2022-05-30 10:00 | Outpatient (REF) | payer MEDICARE, SELFPAY ==
--- NOTE | ~2022-05-30 | MM_ITS ---
EXAMINATION: STEREOTACTIC TOMOSYNTHESIS-GUIDED VACUUM-ASSISTED BREAST BIOPSY, RIGHT SPECIMEN RADIOGRAPH, RIGHT POST PROCEDURE DIGITAL MAMMOGRAM, RIGHT CLINICAL INFORMATION: Right breast IDC status post lumpectomy with 1 axillary node with micrometastasis and incidental post operative axillary seroma. Dystrophic versus residual calcifications anterior central lower right breast for stereotactic sampling. COMPARISON: Multiple prior right breast imaging exams, including diagnostic right mammography 03/23/2022. TECHNIQUE/PROCEDURE: Informed consent was obtained from the patient after discussion of the benefits, risks, and alternatives to biopsy today. Patient appeared to understand. Gave opportunity for questions. Patient signed consent form. BIOPSY TABLE: SABIA Affirm Prone Biopsy System. LESION: Calcifications lower anterior central right breast, possibly dystrophic. LOCAL ANESTHESIA: 10 mL carbonated 1% lidocaine; 10 mL 2% lidocaine with epinephrine. DERMATOTOMY: Single skin asa dermatotomy performed. NEEDLE: [employer] Eviva 9-gauge vacuum assisted core biopsy device. APPROACH: Caudal Cranial. TARGETING: Combination of digital breast tomosynthesis and stereotactic digital mammography used for targeting. CORES: 5. CLIP: [employer] SecurMark Cylinder-shaped marker. SPECIMEN RADIOGRAPH: Specimen radiograph is taken in separate room using digital mammography. The index calcifications are in the excised cores. There are at least 5 calcifications in the cores of various size. POST PROCEDURE UNILATERAL DIGITAL MAMMOGRAM: The post biopsy mammogram is performed in separate room using separate digital mammography equipment from the biopsy procedure. CC and ML views are obtained. There are scattered areas of fibroglandular density (breast composition category: b). The clip marker is in position. The calcifications are markedly decreased at the biopsy site. No gross hematoma. There is diffuse smooth skin thickening right breast. The patient tolerated the procedure well. No immediate complications. Home instructions reviewed with the patient. Final pathology results are pending. MM/MM stereotactic biopsy RT IMPRESSION: 1. Digital tomosynthesis-guided core biopsy right breast with clip placement. 2. Specimen radiograph taken and post procedure mammogram. There is satisfactory positioning of the biopsy clip. 3. Final pathology results pending. An addendum report will be issued.
[2022-05-30] MEDS: Lidocaine HCl 1 % 20 ML VIAL 9 ML SUBCUT (11:12)
[2022-05-30] MEDS: Sodium Bicarbonate 8.4% 50 MEQ/50 ML VIAL SUBCUT (11:14)
== END 2022-05-30 10:01 | disposition home or self-care (01) ==
LOC: HO.MAMMO 10:00
PROVIDERS: PCP Nurse Practitioner Family; Visit Provider Surgery
DX: R92.1 Mammographic calcification found on diagnostic imaging of breast (principal); Z85.3 Personal history of malignant neoplasm of breast
CPT/HCPCS: 19081; 88305; A4648

== ENCOUNTER → 2022-06-04 11:00 | Outpatient (BNVA) | payer MEDICARE, SELFPAY | PROVIDERS: PCP Nurse Practitioner Family; Visit Provider Surgery | DX: Z85.3 Personal history of malignant neoplasm of breast (principal) | CPT/HCPCS: 99212 ==

== ENCOUNTER → 2022-06-05 11:02 | Outpatient (BNVA) | payer MEDICARE, SELFPAY | PROVIDERS: PCP Nurse Practitioner Family; Visit Provider Internal Medicine Rheumatology | DX: M33.90 Dermatopolymyositis, unspecified, organ involvement unspecified (principal); Z79.899 Other long term (current) drug therapy | CPT/HCPCS: 99212 ==

== ENCOUNTER 2022-06-07 08:14 | Outpatient (REF) | payer MEDICARE, SELFPAY | END 2022-06-07 08:15 | disposition home or self-care (01) | LOC: HO.LAB 08:14 | PROVIDERS: PCP Nurse Practitioner Family; Visit Provider Internal Medicine Rheumatology | DX: M33.90 Dermatopolymyositis, unspecified, organ involvement unspecified (principal) | CPT/HCPCS: 36415; 82550 ==

== ENCOUNTER 2022-06-12 07:32 | Outpatient (REF) | payer MEDICARE, SELFPAY | END 2022-06-12 07:33 | disposition home or self-care (01) | LOC: HO.MDS 07:32 | PROVIDERS: Visit Provider Internal Medicine Rheumatology | DX: M33.90 Dermatopolymyositis, unspecified, organ involvement unspecified (principal) | CPT/HCPCS: 96365; 96366; 96368; J1569; J1642 ==

== ENCOUNTER 2022-06-13 07:30 | Outpatient (REF) | payer MEDICARE, SELFPAY | END 2022-06-13 07:31 | disposition home or self-care (01) | LOC: HO.MDS 07:30 | PROVIDERS: Visit Provider Internal Medicine Rheumatology | DX: M33.90 Dermatopolymyositis, unspecified, organ involvement unspecified (principal) | CPT/HCPCS: 96365; 96366; 96367; J1569; J1642 ==

== ENCOUNTER → 2022-06-18 10:08 | Outpatient (BNVA) | payer MEDICARE, SELFPAY | PROVIDERS: Visit Provider Internal Medicine Rheumatology | DX: C50.911 Malignant neoplasm of unspecified site of right female breast (principal); M33.90 Dermatopolymyositis, unspecified, organ involvement unspecified; Z79.899 Other long term (current) drug therapy | CPT/HCPCS: 36415; 85025; 99212 ==

== ENCOUNTER 2022-06-18 11:24 | Outpatient (REF) | payer MEDICARE, SELFPAY ==
[2022-06-18 13:42] LABS: MANUAL DIFF FLAG NO
[2022-06-18 13:49] LABS: Basophils Percent Auto 0.3 % (0-2); Eosinophils Percent Auto 0.2 % (0-4); Hematocrit 33.7 % (37.0-47.0); Hemoglobin 11.3 g/dl (12.0-16.0); Imm Gran Abs Auto 0.02 X10*3/uL (0.00-0.03); Imm Gran Pct Auto 0.3 % (0.0-0.4); Lymphocytes Absolute Auto 0.5 X10*3/uL (1.2-4.9); Lymphocytes Percent Auto 7.2 % (20-40); Mean Corpuscular HGB Conc 33.5 g/dl (31.0-35.0); Mean Corpuscular Hemoglobin 30.5 pg (27.0-33.0); Mean Corpuscular Volume 91.1 fL (80.0-98.0); Mean Platelet Volume 10.6 fL (9.4-12.3); Monocytes Absolute Auto 0.4 X10*3/uL (0.1-1.2); Monocytes Percent Auto 5.9 % (2-11); Neutrophils Absolute Auto 5.4 x10*3/uL (2.0-8.3); Neutrophils Percent Auto 86.1 % (45-73); Platelet Count 104 X10*3/uL (160-400); White Blood Count 6.3 X10*3/uL (4.8-10.8)
== END 2022-06-18 11:25 | disposition home or self-care (01) ==
LOC: HO.10HDL 11:24
PROVIDERS: Visit Provider Internal Medicine Rheumatology
DX: Z13.89 Encounter for screening for other disorder (principal)
CPT/HCPCS: 36415; 85025

== ENCOUNTER 2022-07-04 09:09 | Day surgery (SDC) | payer MEDICARE, SELFPAY ==
--- NOTE | ~2022-07-04 | CT_ITS ---
EXAMINATION: CT CHEST WITH CONTRAST CLINICAL INFORMATION: Follow-up left pleural effusion and infiltrate. History of breast cancer. COMPARISON: Previous chest CTA March 2022. TECHNIQUE: Multidetector volumetric CT imaging of the chest was obtained after the administration of 65 mL of Omnipaque 350 intravenous contrast without immediate adverse reactions. Axial MIP volume rendering provided. Sagittal and coronal reformatted images were obtained. This CT examination was performed using dose optimization techniques as appropriate, variously including the following: *Automated exposure control *Adjustment of mA and/or kV according to patient size (this includes techniques or standardized protocols for targeted exams where dose is matched to indication/reason for exam; i.e. extremities or head) *Use of iterative reconstruction technique DLP: 148 mGy-cm FINDINGS: LUNGS: There is subsegmental atelectasis in the inferior segment of the lingula. There are scattered areas of increased peribronchial attenuation questionable for bronchiolitis. The lungs are otherwise clear. No suspicious pulmonary nodule. MEDIASTINUM: 1.4 cm right thyroid nodule. Small mediastinal and hilar lymph nodes. No enlarged lymph nodes. Normal heart size. Mild coronary artery calcification. No pericardial effusion. PLEURA: Small left pleural effusion. This is decreased from previous exam. No right pleural effusion. AXILLA: Diffuse edema and skin thickening of the right breast. Stable 1.8 x 3.4 cm lesion in the central right breast axial image 24 series 3. Interval decrease in fluid collection in the right axilla. There is a central clip and this likely represents postsurgical site. This measures 1.6 x 2.6 cm. No left chest wall mass or adenopathy. Left jugular port with tip projecting over the SVC. UPPER ABDOMEN: There may be fatty infiltration of the liver. The spleen is prominent. OSSEOUS STRUCTURES: Degenerative changes of the spine. CT/CT chest w IV con IMPRESSION: Minimal subsegmental atelectasis in the inferior segment of the lingula. Small left pleural effusion. These findings are decreased from March 2022 exam. Fleischner guidelines were followed.
--- NOTE | ~2022-07-04 | US_ITS ---
EXAMINATION: US CHEST CLINICAL INFORMATION: Left pleural effusion check. Breast cancer COMPARISON: None available. TECHNIQUE: Limited ultrasound imaging of left posterior chest was performed. FINDINGS: There is a small left pleural effusion noted. US/US chest IMPRESSION: Small left pleural effusion. It is not adequate for therapeutic drainage.
[2022-07-04 09:40] LABS: MANUAL DIFF FLAG NO
[2022-07-04 09:42] LABS: Basophils Percent Auto 0.2 % (0-2); Eosinophils Percent Auto 0.8 % (0-4); Hematocrit 36.8 % (37.0-47.0); Hemoglobin 11.8 g/dl (12.0-16.0); Imm Gran Abs Auto 0.04 X10*3/uL (0.00-0.03); Imm Gran Pct Auto 0.8 % (0.0-0.4); Lymphocytes Absolute Auto 0.5 X10*3/uL (1.2-4.9); Lymphocytes Percent Auto 9.7 % (20-40); Mean Corpuscular HGB Conc 32.1 g/dl (31.0-35.0); Mean Corpuscular Hemoglobin 30.2 pg (27.0-33.0); Mean Corpuscular Volume 94.1 fL (80.0-98.0); Monocytes Absolute Auto 0.6 X10*3/uL (0.1-1.2); Monocytes Percent Auto 11.8 % (2-11); Neutrophils Absolute Auto 3.9 x10*3/uL (2.0-8.3); Neutrophils Percent Auto 76.7 % (45-73); Red Blood Count 3.91 X10*6/uL (4.20-5.50); Red Cell Distribution Width 15.9 % (11.0-16.0); White Blood Count 5.1 X10*3/uL (4.8-10.8)
[2022-07-04 09:43] LABS: Platelet Count 92 X10*3/uL (160-400)
[2022-07-04 09:47] LABS: INTERNATIONAL NORM RATIO 0.9 (0.9-1.1); Prothrombin Time 9.7 SEC (10.0-13.1)
[2022-07-04 09:50] LABS: Partial Thromboplastin Time 26.6 SEC (26.0-36.4)
[2022-07-04 10:09] VITALS: BMI 32.8
--- NOTE | 2022-07-04 11:17 | PC.NURSE ---
Addendum entered by Vini Rodriguez 07/04/22 11:46: Patient transported to CT waiting room at this time. Verbally gave report to CT scan staff. Reiterated that patient does still have IV line in. Addendum entered by Vini Rodriguez 07/04/22 11:42: CT instructed to discharge patient from shortstay surgery and to bring patient to CT registration. Informed that patient does still have IV line in. CT staff aware Addendum entered by Vini Rodriguez 07/04/22 11:36: As per CT we are to maintain IV from PACU. Patient to be transported to CT by interchange agent. Patient will be discharged from CT scan following CT. Original Note: Patient did not have procedure done. Per Latonia HOOPER patient did not have procedure or have any medications due to no fluids needing to be drained. CT is to take patient to have CT scan at 11:45 am.
[2022-07-04] MEDS: iohexoL 350 MG/ML 100 ML INFUS..BTL IV (12:07)
== END 2022-07-04 11:45 | disposition home or self-care (01) ==
PROVIDERS: Radiology Diagnostic Radiology; PCP Nurse Practitioner Family; Visit Provider Internal Medicine Medical Oncology
DX: J90 Pleural effusion, not elsewhere classified (principal); Z53.8 Procedure and treatment not carried out for other reasons; C50.911 Malignant neoplasm of unspecified site of right female breast; Z79.899 Other long term (current) drug therapy; Z79.52 Long term (current) use of systemic steroids; I11.0 Hypertensive heart disease with heart failure; I50.33 Acute on chronic diastolic (congestive) heart failure
CPT/HCPCS: 36415; 71260; 76604; 85025; 85610; 85730

== ENCOUNTER 2022-07-04 11:53 | Outpatient (REF) | payer MEDICARE, SELFPAY | END 2022-07-04 11:54 | disposition home or self-care (01) | LOC: HO.CT 11:53 | PROVIDERS: Visit Provider Internal Medicine Medical Oncology | DX: Z13.89 Encounter for screening for other disorder (principal) ==

== ENCOUNTER 2022-07-12 07:27 | Outpatient (REF) | payer MEDICARE, SELFPAY | END 2022-07-12 07:28 | disposition home or self-care (01) | LOC: HO.MDS 07:27 | PROVIDERS: PCP Nurse Practitioner Family; Visit Provider Internal Medicine Rheumatology | DX: M33.90 Dermatopolymyositis, unspecified, organ involvement unspecified (principal) | CPT/HCPCS: 96365; 96366; J1569; J1642 ==

== ENCOUNTER 2022-07-13 07:44 | Outpatient (REF) | payer MEDICARE, SELFPAY | END 2022-07-13 07:45 | disposition home or self-care (01) | LOC: HO.MDS 07:44 | PROVIDERS: Visit Provider Internal Medicine Rheumatology | DX: M33.90 Dermatopolymyositis, unspecified, organ involvement unspecified (principal) | CPT/HCPCS: 96365; 96366; J1569; J1642 ==

== ENCOUNTER 2022-07-20 09:43 | Outpatient (REF) | payer MEDICARE, SELFPAY ==
--- NOTE | ~2022-07-20 | US_ITS ---
EXAMINATION: US VENOUS WITH DOPPLER UPPER EXTREMITY, RIGHT CLINICAL INFORMATION: Right upper extremity swelling COMPARISON: None available. TECHNIQUE: Ultrasound of the upper extremity is performed using compression sonography and color and pulse Doppler flow with assessment of augmentation of flow. There is also imaging and Doppler assessment of the jugular and subclavian veins. Spectral analysis with color-flow imaging is performed. FINDINGS: Respiratory variation, normal compression, and augmented flow are noted throughout the upper extremity including the axillary, brachial, cubital, and radial and ulnar veins. There is normal flow in the internal jugular and subclavian veins. There is no visible deep or superficial thrombophlebitis. US/US venous duplex UE RT IMPRESSION: No DVT demonstrated in the right upper extremity
== END 2022-07-20 09:44 | disposition home or self-care (01) ==
LOC: HO.US 09:43
PROVIDERS: PCP Nurse Practitioner Family; Visit Provider Internal Medicine Medical Oncology
DX: R60.0 Localized edema (principal)
CPT/HCPCS: 93971

== ENCOUNTER 2022-08-13 07:46 | Outpatient (REF) | payer MEDICARE, SELFPAY | END 2022-08-13 07:47 | disposition home or self-care (01) | LOC: HO.MDS 07:46 | PROVIDERS: Visit Provider Internal Medicine Rheumatology | DX: M33.90 Dermatopolymyositis, unspecified, organ involvement unspecified (principal) | CPT/HCPCS: 96365; 96366; J1569; J1642 ==

== ENCOUNTER 2022-08-14 07:33 | Outpatient (REF) | payer MEDICARE, SELFPAY | END 2022-08-14 07:34 | disposition home or self-care (01) | LOC: HO.MDS 07:33 | PROVIDERS: PCP Nurse Practitioner Family; Visit Provider Internal Medicine Rheumatology | DX: M33.90 Dermatopolymyositis, unspecified, organ involvement unspecified (principal) | CPT/HCPCS: 96365; 96366; J1569; J1642 ==

== ENCOUNTER → 2022-09-13 10:16 | Outpatient (BNVA) | payer MEDICARE, SELFPAY | PROVIDERS: PCP Nurse Practitioner Family; Visit Provider Internal Medicine Rheumatology | DX: M33.90 Dermatopolymyositis, unspecified, organ involvement unspecified (principal); C50.911 Malignant neoplasm of unspecified site of right female breast; M85.80 Other specified disorders of bone density and structure, unspecified site; Z79.899 Other long term (current) drug therapy | CPT/HCPCS: 99212 ==

== ENCOUNTER 2022-09-17 07:35 | Outpatient (REF) | payer MEDICARE, SELFPAY | END 2022-09-17 07:36 | disposition home or self-care (01) | LOC: HO.MDS 07:35 | PROVIDERS: Visit Provider Internal Medicine Rheumatology | DX: M33.90 Dermatopolymyositis, unspecified, organ involvement unspecified (principal) | CPT/HCPCS: 96365; 96366; J1569; J1642 ==

== ENCOUNTER 2022-09-18 07:33 | Outpatient (REF) | payer MEDICARE, SELFPAY | END 2022-09-18 07:34 | disposition home or self-care (01) | LOC: HO.MDS 07:33 | PROVIDERS: Visit Provider Internal Medicine Rheumatology | DX: M33.90 Dermatopolymyositis, unspecified, organ involvement unspecified (principal) | CPT/HCPCS: 96365; 96366; J1569; J1642 ==

== ENCOUNTER 2022-09-20 08:16 | Outpatient (REF) | payer MEDICARE, SELFPAY ==
[2022-09-20 09:08] LABS: Basophils Percent Auto 0.5 % (0-2); Eosinophils Percent Auto 1.1 % (0-4); Hematocrit 28.6 % (37.0-47.0); Hemoglobin 9.2 g/dl (12.0-16.0); Imm Gran Abs Auto 0.01 X10*3/uL (0.00-0.03); Imm Gran Pct Auto 0.5 % (0.0-0.4); Lymphocytes Absolute Auto 0.3 X10*3/uL (1.2-4.9); Lymphocytes Percent Auto 18.7 % (20-40); MANUAL DIFF FLAG SCAN; Mean Corpuscular HGB Conc 32.2 g/dl (31.0-35.0); Mean Corpuscular Volume 96.3 fL (80.0-98.0); Mean Platelet Volume 9.9 fL (9.4-12.3); Monocytes Absolute Auto 0.3 X10*3/uL (0.1-1.2); Monocytes Percent Auto 14.8 % (2-11); Neutrophils Absolute Auto 1.2 x10*3/uL (2.0-8.3); Neutrophils Percent Auto 64.4 % (45-73); Red Blood Count 2.97 X10*6/uL (4.20-5.50); Red Cell Distribution Width 16.6 % (11.0-16.0); SCAN SMEAR FLAG 1
[2022-09-20 09:09] LABS: Platelet Count 74 X10*3/uL (160-400); White Blood Count 1.8 X10*3/uL (4.8-10.8)
[2022-09-20 09:20] LABS: Alanine Aminotransferase 32 U/L (0-31); Albumin Level 2.7 g/dL (3.5-5.0); Alkaline Phosphatase 53 U/L (39-117); Anion Gap 8 (12-20); Aspartate Amino Transferase 37 U/L (5-31); Bilirubin Total 0.9 mg/dL (0.0-1.0); Blood Urea Nitrogen 16 mg/dL (9-16); C Reactive Protein 0.68 mg/dL (< or = 0.50); Calcium 8.8 mg/dL (8.4-10.2); Carbon Dioxide 26 mmol/L (22-29); Chloride 109 mmol/L (96-108); Estimated Glomerular Filt Rate > 60; Glucose Random 87 mg/dL (60-115); Potassium 3.4 mmol/L (3.3-5.1); Sodium 140 mmol/L (135-145); Total Protein 6.9 g/dL (6.5-8.0)
[2022-09-20 09:48] LABS: SLIDE REVIEW VERIFIED
[2022-09-20 09:51] LABS: Erythrocyte Sedimentation Rate 67 MM/HR (0-20)
== END 2022-09-20 08:17 | disposition home or self-care (01) ==
LOC: HO.LAB 08:16
PROVIDERS: Internal Medicine Medical Oncology; PCP Nurse Practitioner Family; Visit Provider Internal Medicine Rheumatology
DX: C50.911 Malignant neoplasm of unspecified site of right female breast (principal); M33.90 Dermatopolymyositis, unspecified, organ involvement unspecified
CPT/HCPCS: 36415; 80053; 82550; 85025; 85652; 86140

== ENCOUNTER → 2022-10-24 10:46 | Outpatient (REF) | payer MEDICARE, SELFPAY ==
--- NOTE | 2022-10-24 10:49 | CA_ITS ---
Transthoracic Echocardiogram Patient (Last, First, Middle): Kate Almaguer, Gender: Female Date of : 1955 Age: 67 Procedure Date: 10/24/2022 Procedure Type: Transthoracic Echocardiogram Location: OP Height: 160.02 cm Weight: 78.02 kg BSA: 1.81 m2 Heart Rate: bpm BP: 140 / 88 mmHg Amalgamator: TO Referring MD: Patrick Hernández MD Chief Information Security Officer: Josias Hameed MD Symptoms: To check EF on chemotherapy. Study Quality: Fair/Contrast ECG Rhythm: Sinus Conclusions: - Normal LV systolic function with LVEF of 65-70% Findings Procedure Information Contrast agent, definity, is being given per protocol without apparent complications. Left Ventricle Normal left ventricular size, thickness, and systolic function. The visually estimated ejection fraction is between 65-70%. Peak GLS is -21.0%, within normal limits. Prior Study Comparison No significant change compared to prior study dated: 05/21/2022. Measurements 2D Linear Measurements IVSd: 1.18 0.6-0.9/0.6-1.0 cm LVIDd: 4.13 3.9-5.3/4.2-5.9 cm LVIDd Index: 2.28 2.4-3.2/2.2-3.1 cm/m2 LVIDs: 2.61 2.0-3.6 cm LVPWd: 1.00 0.7-1.1 cm LV Mass: 188.03 67-162/88-224 g LV Mass Index: 103.88 43-95/49-115 g/m2 LVOT Diam: 2.00 3.0+(-)1.3 cm 2D Systolic Function EF 4C: 65.80 >55% EF 2C: 67.20 >55% EF BiP: 67.40 >55% LVOT LVOT Pk Taras: 1.41 LVOT Mn Taras: 0.80 LVOT VTI: 0.25 LVOT Pk Grad: 8.00 LVOT Mn Grad: 3.00 LVOT Diam: 2.00 LVOT Area: 3.14 Tricuspid Valve RA Press: 8.00 Updated in Other Vendor System with Status of Final Josias Hameed MD electronically signed on 10/24/2022 3:17:30 PM with status of Final
== END ==
LOC: HO.CARD 10:46
PROVIDERS: PCP Nurse Practitioner Family; Visit Provider Internal Medicine Medical Oncology
DX: C50.911 Malignant neoplasm of unspecified site of right female breast (principal)
CPT/HCPCS: 93308; 93356; Q9957

== ENCOUNTER → 2022-10-24 10:49 | Outpatient (BNV) | payer MEDICARE, SELFPAY | PROVIDERS: PCP Nurse Practitioner Family; Visit Provider Internal Medicine Cardiovascular Disease | DX: Z51.81 Encounter for therapeutic drug level monitoring (principal) | CPT/HCPCS: 93308 ==

== ENCOUNTER 2022-10-30 13:18 | Outpatient (AMB) | payer MEDICARE, SELFPAY ==
--- NOTE | 2022-10-30 13:27 | MHC.OFFVIS ---
Intake Vital Signs 10/30/22 13:30 Height 5 ft 3 in Weight 180 lb 12.465 oz BMI 32.0 Pulse 71 Pulse Source Pulse Oximeter Pulse Oximetry (%) 98 Oxygen Delivery Method Room Air Intake Visit Reasons: Pulmonary nodule Test Pilot Required: No Allergies No Known Allergies Allergy (Verified 10/30/22 13:31) HPI HPI Comments History of Present Illness Details Patient is here for a pulmonary evaluation. The patient 67 year woman with right sided breast cancer. Started carboplatin/docetaxel/Herceptin/pertuzumab based chemotherapy x 15 cycles and now onHerceptin and pertuzumab maintenance. Patient follow-up adverse effects from the chemotherapy developing chemo related dermatomyositis, then UTI. She went to [place] in March 2022 and developed a left sided pneumonia and a small to moderate pleural effusion. She had a repeat CT chest 06/2022 with a residual effusion. Too small to tap. She has been having worsening LE edema. Actually gained 16lbs while visiting in [place]. Now on lasix 40mg daily. ECHO with normal EF, but, grade 2 diastolic dysfunction. [facility] Medical History (Updated 10/30/22 @ 21:42 by Ronal Hu MD) Abdominal pain Acute diastolic (congestive) heart failure Acute hypokalemia Acute on chronic heart failure with preserved ejection fraction (HFpEF) Anemia Anxiety Atrial arrhythmia Axillary adenopathy Bacteremia due to Klebsiella pneumoniae Breast calcification, right Breast cancer, right CHF (congestive heart failure) Colitis Dermatomyositis Diarrhea Encounter to establish care History of COVID-19 History of right breast cancer Hypertension Insomnia Invasive ductal carcinoma of right breast Lumbar degenerative disc disease Major depression, chronic Nonsustained supraventricular tachycardia Pain in both feet Pancolitis Pancytopenia Pedal edema Pleural effusion Port-A-Cath in place SIRS (systemic inflammatory response syndrome) UTI (urinary tract infection) Surgical History History of arthroscopic knee surgery History of section History of cholecystectomy History of fusion of cervical spine History of gastric bypass History of hysterectomy History of tonsillectomy Hx of colonoscopy Status post right breast lumpectomy Family History Mother No problems noted. Father Breast cancer Bone cancer Brother Substance use disorder Paternal Aunt Breast cancer Social History (Reviewed 09/13/22 @ 10:27 by Stephanie Haas CCMElmo Household Members: Significant Other, Family and Children Housing: House Are you a primary housekeeper caregiver to a significant other at home: No Do you presently have visiting nurse or other home services: Yes ([facility]) Alcohol intake: former Patient Tobacco Use Status: Former Tobacco user Quit Date: 12 years ago Tobacco use type: Cigarette e-Cigarette/Vaping Use: Never Used Second Hand Smoke Exposure: No Advance Directives Date on File: 11/28/21 service: No Current occupational status: unemployed and retired Cognitive needs: Yes (cane) Hearing needs: No Vision needs: Yes (glasses) Female Reproductive History Menstrual Age of Menarche: 17 Review of Systems Const Denies chills, Denies fatigue, Denies fever(s), Denies frequent falls, Denies weakness, Denies weight gain and Denies weight loss ENT Denies dizziness Card Denies chest pain, Denies leg edema, Denies lightheadedness, Denies palpitations, Denies dyspnea, Denies dyspnea on exertion, Denies orthopnea and Denies other (loss of consciousness) Resp Denies cough, Denies dyspnea and Denies dyspnea on exertion GI Denies hematochezia and Denies change in stool character Musc Denies abnormal gait, Denies muscle weakness, Denies numbness, Denies radiating pain into limb and Denies tingling Neuro Denies abnormal gait, Denies dizziness, Denies frequent falls, Denies numbness, Denies tingling and Denies weakness Endo Denies fatigue and Denies palpitations Physical Exam Vital Signs: Last Vital Signs Pulse 71 10/30/22 13:30 Pulse Ox 98 10/30/22 13:30 Oxygen Delivery Method Room Air 10/30/22 13:30 BMI result Body Mass Index 32.0 Const General: cooperative, comfortable, no acute distress, alert and awake Nutritional Appearance: obese Limitations: ambulation with cane Neck Neck: Yes trachea midline, Yes supple and Yes no JVD Resp Effort & Inspection: normal respiratory effort Auscultation: diminished lung sounds Cardio Jugular venous distension: no JVD Palpation: normal PMI Rate: regular rate Rhythm: regular rhythm Heart sounds: S1 normal heart sound present, S2 normal heart sound present, no click, no gallops and no murmurs GI Auscultation: normal bowel sounds Neuro General: no focal motor deficits Extrem General: Yes no clubbing, cyanosis or edema Assessment & Plan Assessment & Plan (1) Pleural effusion: Code(s): J90 - Pleural effusion, not elsewhere classified (2) Acute on chronic heart failure with preserved ejection fraction (HFpEF): Code(s): I50.33 - Acute on chronic diastolic (congestive) heart failure (3) 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: Code(s): C50.919 - Malignant neoplasm of unspecified site of unspecified female breast Plan repeat CXR Increase Lasix 60mg daily x 3 days, then 40mg daily and daily weights labs in 4 weeks F/U 2 months Orders: Orders XR chest 2V Today J90 - Pleural effusion, not elsewhere classified Complete Blood Count Auto Diff 3 Weeks J90 - Pleural effusion, not elsewhere classified Basic Metabolic Panel 3 Weeks J90 - Pleural effusion, not elsewhere classified B Type Natriuretic Peptide 3 Weeks J90 - Pleural effusion, not elsewhere classified Erythrocyte Sedimentation Rate 3 Weeks J90 - Pleural effusion, not elsewhere classified Liver Panel 3 Weeks J90 - Pleural effusion, not elsewhere classified Medications: New furosemide (Lasix) 40 mg PO DAILY 30 days 30 tabs 0RF Discontinued furosemide 20 mg PO DAILY 4RF Coding Level of Care Code New Pt Level 4 (25130) Diagnoses Pleural effusion J90 Acute on chronic heart failure with preserved ejection fraction (HFpEF) I50.33 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
[2022-10-30 13:30] VITALS: PULSE 71; O2SAT 98; BMI 32.0
== END 2022-10-30 13:59 | disposition home or self-care (01) ==
PROVIDERS: PCP Nurse Practitioner Family; Visit Provider Hospitalist
DX: J90 Pleural effusion, not elsewhere classified (principal); I50.33 Acute on chronic diastolic (congestive) heart failure; C50.919 Malignant neoplasm of unspecified site of unspecified female breast
CPT/HCPCS: 99204

== ENCOUNTER → 2022-10-30 13:18 | Outpatient (BNVA) | payer MEDICARE, SELFPAY | PROVIDERS: Visit Provider Hospitalist | DX: J90 Pleural effusion, not elsewhere classified (principal); I50.33 Acute on chronic diastolic (congestive) heart failure; C50.919 Malignant neoplasm of unspecified site of unspecified female breast; Z79.899 Other long term (current) drug therapy | CPT/HCPCS: 99202 ==

== ENCOUNTER 2022-11-01 07:58 | Outpatient (REF) | payer MEDICARE, SELFPAY ==
--- NOTE | ~2022-11-01 | XR_ITS ---
EXAMINATION: XR CHEST CLINICAL INFORMATION: Follow-up pleural effusion. COMPARISON: CT chest dated 07/04/2022; chest radiograph dated 02/04/2022.. TECHNIQUE: Frontal and lateral views of the chest were obtained. FINDINGS: The heart, great vessels and mediastinum are normal. There is pulmonary vasculature congestion, without overt pulmonary edema. No infiltrate, effusion or pneumothorax is seen. There is no acute osseous abnormality. There is multi-level thoracic degenerative disc disease and spondylosis. There is a moderately severe thoracic dextroscoliosis. A left internal jugular Port-A-Cath device is seen. There is a cervicothoracic orthopedic plate, with fixator screws. XR/XR chest 2V IMPRESSION: 1. There is pulmonary vascular congestion, without overt pulmonary edema. 2. No infiltrate, effusion or pneumothorax is seen.
== END 2022-11-01 07:59 | disposition home or self-care (01) ==
LOC: HO.MDS 07:58
PROVIDERS: Absent Provider Hospitalist; PCP Nurse Practitioner Family; Visit Provider Internal Medicine Rheumatology
DX: M33.90 Dermatopolymyositis, unspecified, organ involvement unspecified (principal); J90 Pleural effusion, not elsewhere classified
CPT/HCPCS: 71046; 96365; 96366; J1569; J1642

== ENCOUNTER 2022-11-02 07:58 | Outpatient (REF) | payer MEDICARE, SELFPAY | END 2022-11-02 07:59 | disposition home or self-care (01) | LOC: HO.MDS 07:58 | PROVIDERS: Visit Provider Internal Medicine Rheumatology | DX: M33.90 Dermatopolymyositis, unspecified, organ involvement unspecified (principal) | CPT/HCPCS: 96365; 96366; 96375; J1569; J1642 ==

== ENCOUNTER 2022-11-06 14:25 | Outpatient (REF) | payer MEDICARE, SELFPAY ==
--- NOTE | ~2022-11-06 | MR_ITS ---
EXAMINATION: MR ABDOMEN WITHOUT AND WITH CONTRAST CLINICAL INFORMATION: Genetic risk of pancreatic cancer. COMPARISON: Abdominal MRI 03/05/2022. TECHNIQUE: MR abdomen was performed without and with use of 7.5 mL intravenous Gadavist gadolinium contrast. Postcontrast images are performed in multiphase dynamic sequences. Imaging was performed in 3 planes. FINDINGS: LUNG BASES: Trace left-sided pleural fluid, decreased compared to 03/05/2022. A 1.6 cm T2 bright cystic-appearing observation in the right breast (4:28) is decreased in size from approximately 4.6 cm on 03/05/2022. LIVER, GALLBLADDER, AND BILIARY TREE: There is signal loss in the [id number] dual-echo images most suggestive of hepatic steatosis. Otherwise, the liver is normal in size and shape. A subcentimeter T2 bright cyst versus slow-filling hemangioma in the left hepatic lobe (5:11) is unchanged. Cholecystectomy. No biliary ductal dilatation. PANCREAS: Fatty infiltration of the proximal pancreas. No measurable lesion. No ductal dilatation. No peripancreatic free fluid or fat stranding. SPLEEN: The spleen measures 16.7 cm craniocaudally, previously 14.7 cm. No focal lesion. ADRENAL GLANDS: A 1.5 cm right adrenal nodule is unchanged with homogeneous signal loss in the [id number]-[id number] dual-echo images most consistent with an adenoma, for which no imaging followup is recommended. Normal left adrenal gland. KIDNEYS AND URETERS: The kidneys are normal in size, shape, and enhance symmetrically. No hydronephrosis. No perinephric stranding. GASTROINTESTINAL TRACT: Postsurgical changes from Brittney-en-Y gastric bypass. No bowel obstruction. Small fat-containing umbilical hernia. ABDOMINAL WALL: No significant hernia is appreciated. LYMPH NODES: Stable prominent periportal lymph nodes. VASCULAR: Normal caliber abdominal aorta. OSSEOUS STRUCTURES: Degenerative changes of the spine. No aggressive-appearing osseous findings. MR/MR abdomen wo/w con IMPRESSION: 1. Fatty infiltration of the proximal pancreas which is otherwise unremarkable. 2. Hepatic steatosis. 3. Increased nonspecific splenomegaly.
[2022-11-06] MEDS: gadobutroL 7.5 ML VIAL IVPUSH (15:25)
== END 2022-11-06 14:26 | disposition home or self-care (01) ==
LOC: HO.MRI 14:25
PROVIDERS: PCP Nurse Practitioner Family; Visit Provider Internal Medicine Medical Oncology
DX: Z91.89 Other specified personal risk factors, not elsewhere classified (principal)
CPT/HCPCS: 74183; A9585

== ENCOUNTER 2022-11-20 10:43 | Outpatient (AMB) | payer MEDICARE, SELFPAY ==
[2022-11-20 10:45] VITALS: BP 124/82; PULSE 86; BMI 29.7
--- NOTE | 2022-11-20 10:45 | MHC.OFFVIS ---
Intake Vital Signs 11/20/22 10:45 Height 5 ft 3 in Weight 167 lb 8.821 oz BMI 29.7 BP 124/82 Blood Pressure Location Lt brachial Position Sitting Pulse 86 Intake Visit Reasons: 6 mth f/up Intake Note: 6 month follow-up after echo feeling good has been out of digoxin x 1 week Aviation Safety Inspector Required: No Allergies No Known Allergies Allergy (Verified 10/30/22 13:31) Medication List - Last Reconciled 11/20/22 by Josias Hameed MD alendronate 70 mg PO QWEEK azathioprine 50 mg PO TID calcium carbonate-vitamin D3 600 mg-10 mcg (400 unit) 1 tab PO DAILY cholecalciferol (vitamin D3) 25 mcg PO BEDTIME clonidine HCl 0.2 mg PO BEDTIME cyanocobalamin (vitamin B-12) 1,000 mcg PO BEDTIME digoxin 0.25 mg PO DAILY duloxetine (Cymbalta) 60 mg PO DAILY furosemide (Lasix) 20 mg PO DAILY furosemide (Lasix) 40 mg PO DAILY hydroxyzine HCl 25 mg PO QID PRN immun glob X-[id number]-dkcn-IgA 0-50 10 gram (Gammagard S-D (IgA < 1 mcg/mL)) 70 grams IV DAILY 2 days loperamide 2 mg PO Q4H PRN magnesium oxide 400 mg PO BID meclizine mg PO miscellaneous medical supply 1 ea miscellaneous DAILY nystatin 5 mL PO QID 10 days potassium chloride ER (Klor-Con M) 20 mEq PO BID prednisone 10 mg PO DAILY triamcinolone acetonide 0.1% 1 appl topical DAILY walker (Ultra-Light Rollator misc) As directed. Rollator walker with the seat HPI HPI Comments History of Present Illness Details Kate comes for follow-up. She has had no hospitalization related to heart failure. Denies any palpitations. She ran out of digoxin about a week ago. Recently her Lasix was increased and was told to take alternate but she is taking 20 mg Saturday to then 60 mg Saturday. She says her leg edema is improved. She denies any orthopnea, PND. No lightheadedness, syncope. [facility] Medical History Pleural effusion History of right breast cancer Axillary adenopathy Bacteremia due to Klebsiella pneumoniae SIRS (systemic inflammatory response syndrome) Acute hypokalemia UTI (urinary tract infection) Abdominal pain Anemia Atrial arrhythmia Acute on chronic heart failure with preserved ejection fraction (HFpEF) CHF (congestive heart failure) Acute diastolic (congestive) heart failure Pancytopenia Diarrhea Pancolitis Colitis Nonsustained supraventricular tachycardia Port-A-Cath in place Pain in both feet Pedal edema History of COVID-19 Invasive ductal carcinoma of right breast Breast cancer, right Dermatomyositis Breast calcification, right Encounter to establish care Lumbar degenerative disc disease Hypertension Major depression, chronic Insomnia Anxiety Surgical History Hx of colonoscopy Status post right breast lumpectomy History of arthroscopic knee surgery History of hysterectomy History of section History of cholecystectomy History of gastric bypass History of fusion of cervical spine History of tonsillectomy Family History Mother No problems noted. Father Breast cancer Bone cancer Brother Substance use disorder Paternal Aunt Breast cancer Social History Household Members: Significant Other, Family and Children Housing: House Are you a primary nanny caregiver to a significant other at home: No Do you presently have visiting nurse or other home services: Yes ([facility]NA) Alcohol intake: former Patient Tobacco Use Status: Former Tobacco user Quit Date: 12 years ago Tobacco use type: Cigarette e-Cigarette/Vaping Use: Never Used Second Hand Smoke Exposure: No Advance Directives Date on File: 11/28/21 service: No Current occupational status: unemployed and retired Cognitive needs: Yes (cane) Hearing needs: No Vision needs: Yes (glasses) Female Reproductive History Menstrual Age of Menarche: 17 Review of Systems Const Denies chills, Denies fatigue, Denies fever(s), Denies frequent falls, Denies weakness, Denies weight gain and Denies weight loss ENT Denies dizziness Card Denies chest pain, Denies leg edema, Denies lightheadedness, Denies palpitations, Denies dyspnea, Denies dyspnea on exertion, Denies orthopnea and Denies other (loss of consciousness) Resp Denies cough, Denies dyspnea and Denies dyspnea on exertion GI Denies hematochezia and Denies change in stool character Musc Denies abnormal gait, Denies muscle weakness, Denies numbness, Denies radiating pain into limb and Denies tingling Neuro Denies abnormal gait, Denies dizziness, Denies frequent falls, Denies numbness, Denies tingling and Denies weakness Endo Denies fatigue and Denies palpitations Physical Exam Vital Signs: Last Vital Signs Pulse 86 11/20/22 10:45 BP 124/82 11/20/22 10:45 BMI result Body Mass Index 29.7 Const General: cooperative, comfortable, no acute distress, alert and awake Nutritional Appearance: obese Limitations: ambulation with cane Neck Neck: Yes trachea midline, Yes supple and Yes no JVD Resp Effort & Inspection: normal respiratory effort Auscultation: clear to auscultation bilaterally Cardio Jugular venous distension: no JVD Palpation: normal PMI Rate: regular rate Rhythm: regular rhythm Heart sounds: S1 normal heart sound present, S2 normal heart sound present, no click, no gallops and no murmurs GI Auscultation: normal bowel sounds Neuro General: no focal motor deficits Extrem General: Yes no clubbing, cyanosis or edema Assessment & Plan Assessment & Plan (1) Congestive heart failure: Code(s): I50.9 - Heart failure, unspecified Qualifiers: Heart failure type: right-sided Heart failure chronicity: chronic Qualified Code(s): I50.812 - Chronic right heart failure Plan: Heart failure preserved ejection fraction with normal BMP in this elderly woman doing well on current diuretic regimen. Advised to change her diuretic to 20 mg alternating with 40 mg. Daily weight monitoring avoidance of salt loading was discussed. Monitoring for heart failure symptoms were discussed with her. Advised to call me with worsening symptoms. Follow-up in 1 year's time. (2) Atrial arrhythmia: Code(s): I49.8 - Other specified cardiac arrhythmias Plan: Atrial arrhythmias have done well with digoxin therapy. Continue the same. Importance of digoxin assay every 6 months was discussed. Maintain potassium above 4 and magnesium above 2. Advised to monitor electrolytes at least every 6 months. Will follow up in the clinic 1 year's time, sooner p.r.n.. Thank you for allowing me to partake in her care Orders: Orders Digoxin Today I48.20 - Chronic atrial fibrillation, unspecified, I49.8 - Other specified cardiac arrhythmias Medications: Changed From furosemide (Lasix) 40 mg PO DAILY 30 days 30 tabs 0RF To furosemide (Lasix) fri/sat/sun 40 mg PO DAILY Refilled digoxin 0.25 mg PO DAILY 90 tabs 3RF I49.8 - Other specified cardiac arrhythmias Coding Level of Care Code Est Pt Level 4 (54658) Diagnoses Chronic right-sided congestive heart failure I50.812 Heart failure type: right-sided Heart failure chronicity: chronic Atrial arrhythmia I49.8
== END 2022-11-20 11:02 | disposition home or self-care (01) ==
PROVIDERS: PCP Nurse Practitioner Family; Referring Provider Nurse Practitioner Family; Visit Provider Internal Medicine Cardiovascular Disease
DX: I50.812 Chronic right heart failure (principal); I49.8 Other specified cardiac arrhythmias
CPT/HCPCS: 99214

== ENCOUNTER → 2022-11-20 10:43 | Outpatient (BNVA) | payer MEDICARE, SELFPAY | PROVIDERS: PCP Nurse Practitioner Family; Referring Provider Nurse Practitioner Family; Visit Provider Internal Medicine Cardiovascular Disease | DX: I50.812 Chronic right heart failure (principal); I49.8 Other specified cardiac arrhythmias; Z79.899 Other long term (current) drug therapy | CPT/HCPCS: 99212 ==

== ENCOUNTER 2022-11-22 10:49 | Outpatient (REF) | payer MEDICARE, SELFPAY | END 2022-11-22 10:50 | disposition home or self-care (01) | LOC: HO.LAB 10:49 | PROVIDERS: PCP Nurse Practitioner Family; Visit Provider Hospitalist | DX: Z13.89 Encounter for screening for other disorder (principal) ==

== ENCOUNTER 2022-12-03 07:57 | Outpatient (REF) | payer MEDICARE, SELFPAY | END 2022-12-03 07:58 | disposition home or self-care (01) | LOC: HO.LAB 07:57 | PROVIDERS: PCP Nurse Practitioner Family; Visit Provider Internal Medicine Cardiovascular Disease | DX: Z13.89 Encounter for screening for other disorder (principal) ==

== ENCOUNTER 2022-12-03 08:03 | Outpatient (REF) | payer MEDICARE, SELFPAY | END 2022-12-03 08:04 | disposition home or self-care (01) | LOC: HO.MDS 08:03 | PROVIDERS: Visit Provider Internal Medicine Rheumatology | DX: M33.90 Dermatopolymyositis, unspecified, organ involvement unspecified (principal) | CPT/HCPCS: 96365; 96366; J1569; J1642 ==

== ENCOUNTER 2022-12-04 08:32 | Outpatient (REF) | payer MEDICARE, SELFPAY ==
[2022-12-04 09:17] LABS: Basophils Percent Auto 0.8 % (0-2); Eosinophils Percent Auto 2.3 % (0-4); Hematocrit 30.3 % (37.0-47.0); Hemoglobin 9.8 g/dl (12.0-16.0); Lymphocytes Absolute Auto 0.2 X10*3/uL (1.2-4.9); Lymphocytes Percent Auto 13.2 % (20-40); MANUAL DIFF FLAG SCAN; Mean Corpuscular HGB Conc 32.3 g/dl (31.0-35.0); Mean Corpuscular Hemoglobin 30.7 pg (27.0-33.0); Mean Platelet Volume 9.7 fL (9.4-12.3); Monocytes Absolute Auto 0.2 X10*3/uL (0.1-1.2); Monocytes Percent Auto 16.3 % (2-11); Neutrophils Absolute Auto 0.9 x10*3/uL (2.0-8.3); Neutrophils Percent Auto 67.4 % (45-73); Platelet Count 104 X10*3/uL (160-400); Red Blood Count 3.19 X10*6/uL (4.20-5.50); Red Cell Distribution Width 16.9 % (11.0-16.0); SCAN SMEAR FLAG 1
[2022-12-04 09:22] LABS: White Blood Count 1.3 X10*3/uL (4.8-10.8)
[2022-12-04 10:01] LABS: Erythrocyte Sedimentation Rate 53 MM/HR (0-20)
[2022-12-04 10:18] LABS: SLIDE REVIEW VERIFIED
== END 2022-12-04 08:33 | disposition home or self-care (01) ==
LOC: HO.MDS 08:32
PROVIDERS: Visit Provider Internal Medicine Rheumatology
DX: M33.90 Dermatopolymyositis, unspecified, organ involvement unspecified (principal); Z79.899 Other long term (current) drug therapy
CPT/HCPCS: 36415; 82550; 85025; 85652; 96365; 96366; J1569; J1642

== ENCOUNTER 2022-12-05 11:43 | Outpatient (AMB) | payer MEDICARE, SELFPAY ==
[2022-12-05 11:33] VITALS: BP 144/62; PULSE 70; O2SAT 97; BMI 31.3
--- NOTE | 2022-12-05 11:33 | A.OFFPC_ITS ---
Vital Signs 12/05/22 11:33 12/05/22 12:35 Height 5 ft 3 in Weight 176 lb 12.972 oz BMI 31.3 BP 144/62 H 130/62 Blood Pressure Location Lt brachial Lt brachial Position Sitting Sitting Pulse 70 Pulse Source Pulse Oximeter Temp Source Skin Pulse Oximetry (%) 97 Oxygen Delivery Method Room Air Intake Visit Reasons: L eye cataract surgery-12/20 Intake Note: Patient is here for a Pre-op for Cataract surgery scheduled with [facility] on L 12/20. Quality Control Scientist Required: No Allergies No Known Allergies Allergy (Verified 12/10/22 11:47) Medication List - Last Reconciled 12/05/22 by THA Cast alendronate 70 mg PO QWEEK azathioprine 50 mg PO TID calcium carbonate-vitamin D3 600 mg-10 mcg (400 unit) 1 tab PO DAILY cholecalciferol (vitamin D3) 25 mcg PO BEDTIME clonidine HCl 0.2 mg PO BEDTIME cyanocobalamin (vitamin B-12) 1,000 mcg PO BEDTIME digoxin 0.25 mg PO DAILY duloxetine (Cymbalta) 60 mg PO DAILY furosemide 40 mg PO DAILY immun glob F-uqw-gwvm-IgA 0-50 10 gram (Gammagard S-D (IgA < 1 mcg/mL)) 70 grams IV DAILY 2 days loperamide 2 mg PO Q4H PRN magnesium oxide 400 mg PO BID miscellaneous medical supply 1 ea miscellaneous DAILY potassium chloride ER (Klor-Con M) 20 mEq PO BID walker (Ultra-Light Rollator misc) As directed. Rollator walker with the seat Tobacco use date assessed: 12/05/22 Fall risk assessment: No Falls in past year Last assessed Fall Risk: 12/05/22 Dental Screening Dental Screen Date: 12/05/22 Did you have a dental visit in the last 12 months?: No Did you have a dental problem in the last 6 months where you did not have access to dental care?: No Was dental information given to patient?: Patient has dentist HPI L eye cataract surgery-12/20 HPI Details Patient is a 67-year-old female who presents today for preop clearance. Surgery/Date: Left eye cataract 12/20/22, right eye cataract 01/03/23 Surgeon: Dr. Ford Location: [facility] [place], [place] Anaesthesia: Local. Patient reports history of general anesthesia in the past that she tolerated well. Patient denies history of perioperative hypothermia or blood clotting disorders. She is not on anticoagulation. Medical history significant for vitamin B12 deficiency, vitamin-D deficiency, osteopenia, invasive ductal carcinoma right breast-currently in chemotherapy until 03/2023 - followed by Dr. Palacios and Dr. Hernández, dermatomyositis- followed by Rheumatology, lumbar degenerative disc disease, anxiety, insomnia, depression, hypertension, congestive heart failure-followed by [facility] Dr. Hameed, unsteady gait, hypertension, jail current use of immunosuppressive drug, atrial arrhythmia, persistent insomnia. Patient denies chest pain, she reports shortness of breath with activity for the past couple weeks, patient is on Lasix 40 mg daily. [facility] Medical History (Updated 12/06/22 @ 09:45 by Panda Felix MD) Pleural effusion History of right breast cancer Axillary adenopathy Bacteremia due to Klebsiella pneumoniae SIRS (systemic inflammatory response syndrome) Acute hypokalemia UTI (urinary tract infection) Abdominal pain Anemia Atrial arrhythmia Acute on chronic heart failure with preserved ejection fraction (HFpEF) CHF (congestive heart failure) Acute diastolic (congestive) heart failure Pancytopenia Diarrhea Pancolitis Colitis Nonsustained supraventricular tachycardia Port-A-Cath in place Pain in both feet Pedal edema History of COVID-19 Invasive ductal carcinoma of right breast Breast cancer, right Dermatomyositis Breast calcification, right Encounter to establish care Lumbar degenerative disc disease Hypertension Major depression, chronic Insomnia Anxiety Surgical History Hx of colonoscopy Status post right breast lumpectomy History of arthroscopic knee surgery History of hysterectomy History of section History of cholecystectomy History of gastric bypass History of fusion of cervical spine History of tonsillectomy Family History Mother No problems noted. Father Breast cancer Bone cancer Brother Substance use disorder Paternal Aunt Breast cancer Social History Household Members: Significant Other, Family and Children Housing: House Are you a primary critical care clinical nurse specialist to a significant other at home: No Do you presently have visiting nurse or other home services: Yes ([facility]) Alcohol intake: former Patient Tobacco Use Status: Former Tobacco user Quit Date: 12 years ago Tobacco use type: Cigarette e-Cigarette/Vaping Use: Never Used Second Hand Smoke Exposure: No Advance Directives Date on File: 11/28/21 service: No Current occupational status: unemployed and retired Cognitive needs: Yes (cane) Hearing needs: No Vision needs: Yes (glasses) Female Reproductive History Menstrual Age of Menarche: 17 Questionnaire PHQ-9 Over the last 2 weeks, how often have you been bothered by any of the following problems? 1. Little interest or pleasure in doing things: not at all 2. Feeling down, depressed, or hopeless: not at all 3. Trouble falling or staying asleep, or sleeping too much: several days (trouble falling asleep ) 4. Feeling tired or having little energy: several days 5. Poor appetite or overeating: not at all 6. Feeling bad about yourself - or that you are a failure or have let yourself or your family down: several days 7. Trouble concentrating on things, such as reading the newspaper or watching television: not at all 8. Moving or speaking so slowly that other people could have noticed. Or the opposite - being so fidgety or restless that you have been moving around a lot more than usual: not at all 9. Thoughts that you would be better off or of hurting yourself in some way: not at all Total score: 3 Depression Screening Interpretation: Negative 83240 - PHQ-9 Billing: Yes Source: Developed by Drs. Litzy Delarosa, Navdeep Woodward and colleagues, with an educational julissa from [employer]. Thrive Questionnaire Date Thrive assessed: 06/18/22 AUDIT C Alcohol Use Questionnaire (AUDIT-C) 1. How often do you have a drink containing alcohol?: Never 3. How often do you have six or more drinks on one occasion?: Never Total Score: 0 Score Reviewed/Action Taken: No GATO-7 AMB Questionnaire GATO-7 Date GATO - 7 assessed: 06/18/22 Source: Developed by Drs. Litzy Delarosa, Navdeep Woodward and colleagues, with an educational julissa from [employer]. Review of Systems Const Denies body aches, Denies chills, Reports fatigue, Denies fever(s) and Denies headache(s) Eyes Denies change in vision ENT Denies dizziness, Denies otalgia, Denies headache(s), Denies nasal discharge, Denies sinus pain and Denies sore throat Card Denies chest pain, Denies edema, Denies lightheadedness, Denies dyspnea and Reports dyspnea on exertion Resp Denies chest congestion, Denies cough, Denies dyspnea and Reports dyspnea on exertion GI Denies constipation, Denies diarrhea, Denies nausea and Denies vomiting Denies hematuria, Denies dysuria and Denies flank pain Musc Reports back pain, Denies myalgias, Denies arthralgias and Denies joint swelling Skin/Breast Denies lesions and Denies rash Neuro Details: Unsteady gait Denies dizziness and Denies headache(s) Endo Reports fatigue Physical exam (Primary Care) Vital Signs: Last Vital Signs Pulse 70 12/05/22 11:33 BP 130/62 12/05/22 12:35 Pulse Ox 97 12/05/22 11:33 Oxygen Delivery Method Room Air 12/05/22 11:33 BMI result Body Mass Index 31.3 Tobacco/Smoking Status: Tobacco use Status Tobacco use date assessed 12/05/22 12/05/22 11:34 Patient Tobacco Use Status Former Tobacco user 12/05/22 11:34 Tobacco use type Cigarette 12/05/22 11:34 e-Cigarette/Vaping Use Never Used 12/05/22 11:34 PHQ-9: PHQ-9 Score PHQ-9: Total score 3 12/05/22 17:22 Depression Screening Interpretation: Negative Thrive Assessment: Date of Thrive Assessment Date Thrive assessed 06/18/22 12/05/22 11:34 Const Other: Patient ambulates with a cane General: cooperative and no acute distress Orientation/consciousness: patient oriented x3 HENMT Head: Yes normocephalic and Yes atraumatic Ears: TM's normal bilaterally Face and sinus: Yes sinuses nontender Mouth: oropharynx normal and moist mucous membranes Throat: Yes posterior oropharynx normal Eyes General: appearance normal, both eyes and all related structures Pupils: Equal, round and reactive pupils present EOM: EOMs intact bilaterally Neck Neck: Yes normal visual inspection, Yes full ROM and Yes no lymphadenopathy Thyroid: Thyroid normal Resp Effort & Inspection: normal respiratory effort and able to speak in complete sentences Auscultation: clear to auscultation bilaterally, no crackles, no rales, no rhonchi and no wheezes Cardio Rate: regular rate Rhythm: regular rhythm Heart sounds: S1 normal heart sound present, S2 normal heart sound present and no murmurs GI Palpation (GI): Soft to palpation, not firm, nontender, no guarding and no hepatosplenomegaly Auscultation: normal bowel sounds General: Yes no CVA tenderness Back/Spine/Pelvis Back: no CVA tenderness Skin Other: Moderate erythematous rash noted to face Neuro General: patient oriented x3 Cranial nerves: Yes Equal, round and reactive pupils present Gait exam (Neuro): Normal gait present Extrem General: Yes full ROM and No edema Results Reviewed Results Reviewed: Laboratory Tests 12/04/22 12/04/22 12/07/22 08:59 08:59 13:19 WBC 1.3 L RBC 3.19 L Hgb 9.8 L Hct 30.3 L MCV 95.0 MCH 30.7 MCHC 32.3 RDW 16.9 H Plt Count 104 L MPV 9.7 PT 11.9 INR 1.0 Sodium 143 Potassium 3.1 L Chloride 107 Carbon Dioxide 24 Anion Gap 15 BUN 15 Creatinine 0.79 Estim Creat Clear Calc Not Reportable Estimated GFR > 60 Random Glucose Estimat Average Glucose Hemoglobin A1c % Calcium TSH 12/07/22 13:19 WBC RBC Hgb Hct MCV MCH MCHC RDW Plt Count MPV PT INR Sodium Potassium Chloride Carbon Dioxide Anion Gap BUN Creatinine Estim Creat Clear Calc Estimated GFR Random Glucose 104 Estimat Average Glucose 91 Hemoglobin A1c % 4.8 Calcium 9.5 D TSH 1.12 Assessment and Plan Assessment & Plan (1) Preoperative clearance: Code(s): Z01.818 - Encounter for other preprocedural examination Plan: METs >/= 4; RCRI Class 2 cardiovascular risk 0.9% for a low risk surgery (recent blood work 11/2022) Regarding preop clearance, the patient is at acceptable risk for proposed surgery. Reviewed with the patient that no surgery is completely free of risk and that this examination is to assist the surgeon in reviewing informed consent. Postop care including DVT prophylaxis per surgeon. Patient is cleared for surgery. Ordering Physician: Leslie [place] Date of Service: 12/07/22 Procedure(s): ECG 12 lead EKG Accession Number(s): [id number] cc: Leslie Washington HOME DESIGNER~ Test Reason : preop Blood Pressure : / mmHG Vent. Rate : 071 BPM Atrial Rate : 000 BPM P-R Int : 000 ms QRS Dur : 070 ms QT Int : 344 ms P-R-T Axes : 000 043 102 degrees QTc Int : 373 ms Poor data quality, interpretation may be adversely affected Accelerated Junctional rhythm Low voltage QRS Nonspecific ST and T wave abnormality Abnormal ECG When compared with ECG of 26-MAR-2022 07:34, Junctional rhythm has replaced Sinus rhythm Nonspecific T wave abnormality, worse in Lateral leads Referred By: Leslie [place] Electronically Signed By:LITZY GILLIAM On 12/07/22 @ 14:50 Josias Hameed Wrote To Leslie [place] Scan quality is really poor. Cannot see the P-waves properly but some in lead V1. However overall should not affect the cataract surgery On 12/07/22 @ 14:03 Leslie [place] Wrote To TACOS Hameed Good afternoon Dr. Hameed, I saw Kate 2 days ago for preop clearance for cataract surgery, she had EKG done today which shows abnormal EKG. In the office patient said she did not have any chest pain, she did report shortness of breath with activity for the past couple weeks. Cataract surgery scheduled for 12/20/2022 under Local anaesthesia. Please review EKG and if it is okay for the patient to proceed with surgery? Thank you. On 12/11/22 @ 16:38 Patrick Hernández Wrote To Patrick Hernández Cataract surgery is low risk so should be okay. On 12/11/22 @ 13:19 Leslie [place] Wrote To Patrick Hernández Good afternoon Dr. Hernández. I saw Kate 12/05/22 for preop clearance for cataract surgery under Local anaesthesia 12/20/2022. White blood cells low, anemia noted, low platelets, other blood work stable. Patient is currently in chemotherapy, I would like to run by you if patient can proceed with surgery? Thank you (2) Cataract: Code(s): H26.9 - Unspecified cataract Plan: Surgery/Date: Left eye cataract 12/20/22, right eye cataract 01/03/23 Surgeon: Dr. Ford Location: [facility], [place], [place] Anaesthesia: Local. Patient reports history of general anesthesia in the past that she tolerated well. Orders: Orders TSH reflex Free T4 12/07/22 Z01.818 - Encounter for other preprocedural examination Basic Metabolic Panel 12/07/22 Z01.818 - Encounter for other preprocedural examination Hemoglobin A1c 12/07/22 Z01.818 - Encounter for other preprocedural examination ECG 12 lead EKG 12/07/22 Z01.818 - Encounter for other preprocedural examination Prothrombin Time INR 12/07/22 Z01.818 - Encounter for other preprocedural examination Coding Level of Care Code Est Pt Level 3 (39999) Diagnoses Preoperative clearance Z01.818 Cataract H26.9
[2022-12-05 12:35] VITALS: BP 130/62
== END 2022-12-05 12:39 | disposition home or self-care (01) ==
PROVIDERS: PCP Nurse Practitioner Family; Visit Provider Nurse Practitioner Family
DX: Z01.818 Encounter for other preprocedural examination (principal); H26.9 Unspecified cataract
CPT/HCPCS: 99213

== ENCOUNTER 2022-12-07 12:59 | Outpatient (REF) | payer MEDICARE, SELFPAY ==
--- NOTE | 2022-12-07 13:09 | ECG_ITS ---
Test Reason : preop Blood Pressure : / mmHG Vent. Rate : 071 BPM Atrial Rate : 000 BPM P-R Int : 000 ms QRS Dur : 070 ms QT Int : 344 ms P-R-T Axes : 000 043 102 degrees QTc Int : 373 ms Poor data quality, interpretation may be adversely affected Accelerated Junctional rhythm Low voltage QRS Nonspecific ST and T wave abnormality Abnormal ECG When compared with ECG of 26-MAR-2022 07:34, Junctional rhythm has replaced Sinus rhythm Nonspecific T wave abnormality, worse in Lateral leads Referred By: Leslie [place] Electronically Signed By:LITZY GILLIAM
[2022-12-07 14:13] LABS: Prothrombin Time 11.9 SEC (11.1-13.3)
[2022-12-07 14:14] LABS: Estimated Average Glucose 91 mg/dL; Hemoglobin A1c % 4.8 % (<6.0)
[2022-12-07 14:33] LABS: Anion Gap 15 (12-20); Blood Urea Nitrogen 15 mg/dL (9-16); Calcium 9.5 mg/dL (8.4-10.2); Carbon Dioxide 24 mmol/L (22-29); Chloride 107 mmol/L (96-108); Estimated Glomerular Filt Rate > 60; Glucose Random 104 mg/dL (60-115); Potassium 3.1 mmol/L (3.3-5.1); Sodium 143 mmol/L (135-145)
[2022-12-07 14:49] LABS: TSH reflex Free T4 1.12 uIU/mL (0.32-4.0)
== END 2022-12-07 13:00 | disposition home or self-care (01) ==
LOC: HO.LAB 12:59
PROVIDERS: PCP Nurse Practitioner Family; Visit Provider Nurse Practitioner Family
DX: Z01.818 Encounter for other preprocedural examination (principal); I50.9 Heart failure, unspecified; J90 Pleural effusion, not elsewhere classified; M33.13 Other dermatomyositis without myopathy
CPT/HCPCS: 36415; 80048; 83036; 84443; 85610; 93005

== ENCOUNTER 2022-12-10 11:32 | Outpatient (AMB) | payer MEDICARE, SELFPAY ==
--- NOTE | 2022-12-10 11:36 | A.OFFVIS_ITS ---
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 She has tapered off the prednisone in the past 2 weeks. She remains on azathioprine 150 mg once daily and IVIG 70 g daily x2 every 30 days. She did receive the last IVIG last week and did okay but developed some nausea and diarrhea the day after. That has subsided over the weekend. She has had problems in the past with recurrent loose stools, not usually related to the IVIG. She has noted in the past week or so some return of skin rash over the knuckles. This is not itchy. The strength remains weak in the arms and legs but she is able to walk with a walker and/or cane. Prolonged standing seems to cause some back pain. She was on alendronate 70 mg weekly for her osteopenia and high dose prednisone use but has stop taking it because she is off the prednisone at this point. She tells me she has cataract surgeries planned in the next few weeks. She relates that during the summer she had difficulty with exertional dyspnea and edema thought to be related to her diastolic CHF. That has been seemingly stabilized with the regular use of furosemide. [facility] Medical History (Updated 12/06/22 @ 09:45 by Panda Felix MD) Pleural effusion History of right breast cancer Axillary adenopathy Bacteremia due to Klebsiella pneumoniae SIRS (systemic inflammatory response syndrome) Acute hypokalemia UTI (urinary tract infection) Abdominal pain Anemia Atrial arrhythmia Acute on chronic heart failure with preserved ejection fraction (HFpEF) CHF (congestive heart failure) Acute diastolic (congestive) heart failure Pancytopenia Diarrhea Pancolitis Colitis Nonsustained supraventricular tachycardia Port-A-Cath in place Pain in both feet Pedal edema History of COVID-19 Invasive ductal carcinoma of right breast Breast cancer, right Dermatomyositis Breast calcification, right Encounter to establish care Lumbar degenerative disc disease Hypertension Major depression, chronic Insomnia Anxiety Surgical History Hx of colonoscopy Status post right breast lumpectomy History of arthroscopic knee surgery History of hysterectomy History of section History of cholecystectomy History of gastric bypass History of fusion of cervical spine History of tonsillectomy Family History Mother No problems noted. Father Breast cancer Bone cancer Brother Substance use disorder Paternal Aunt Breast cancer Social History Household Members: Significant Other, Family and Children Housing: House Are you a primary lawn caretaker to a significant other at home: No Do you presently have visiting nurse or other home services: Yes ([facility]NA) Alcohol intake: former Patient Tobacco Use Status: Former Tobacco user Quit Date: 12 years ago Tobacco use type: Cigarette e-Cigarette/Vaping Use: Never Used Second Hand Smoke Exposure: No Advance Directives Date on File: 11/28/21 service: No Current occupational status: unemployed and retired Cognitive needs: Yes (cane) Hearing needs: No Vision needs: Yes (glasses) Female Reproductive History Menstrual Age of Menarche: 17 Review of Systems Const Details: Negative for appetite change, weight change, fever, chills, malaise and fatigue Eyes Details: Negative for vision change, dry eyes,headaches and dizziness ENT Details: Negative for hearing change, tinnitus, oral ulcer, nose bleeds and oral dryness. Card Details: Negative chest pain, edema and syncope Resp Details: Negative for SOB, cough and wheezing GI Details: Negative indigestion/heartburn, nausea, abdominal pain, bowel changes, diarrhea, constipation and bloody stool. Skin/Breast Details: Negative for itching, rash, hives, Raynaud's symptoms, sun sensitivity, and skin cancer Neuro Details: Negative for epilepsy, palsy, stroke, changes in speech, tingling and weakness Endo Details: Negative for polyuria and polydypsia Pacheco/Lymph Details: Negative for excessive bruising or bleeding. Physical Exam Vital Signs: Last Vital Signs Temp 99.9 F 12/10/22 11:47 Pulse 78 12/10/22 11:47 BP 144/54 H 12/10/22 11:47 Pulse Ox 99 12/10/22 11:47 Oxygen Delivery Method Room Air 12/10/22 11:47 BMI result Body Mass Index 30.0 APPEARANCE: Patient in no acute distress EYES no redness, pupils equal and reactive to light, eyelids normal EARS: External ear normal, canal clear and tympanic membrane normal. NOSE/SINUS: Airflow through both nares, no nasal discharge, no bleeding THROAT: Oral mucosa moist, no ulcerations NECK:? No thyromegaly or masses, no adenopathy, trachea midline. HEART:? Regulrar rhythm, S1-S2 heard, no murmurs, rubs or gallops. LUNG:? Clear to percussion and auscultation ABD:? Normal bowel sounds, no organomegaly, masses or tenderness. EXTREMITIES:? No edema, no calf tenderness, normal peripheral pulses. NEURO:? There is 3/5 proximal muscle weakness in the upper extremity and lower extremities. She can stand up unassisted but use of arms to stand up from a chair. SKIN:? Patchy redness around the neck, anterior chest, and upper back.? there is also some slightly scaly red patches of skin over the PIP and MCP areas in both hands, more prominent on the left. This is consistent with some Gottron's papules. She has had these before of course. JOINT EXAM:? No swollen or tender joints. Results Reviewed Results Reviewed: Laboratory Tests 07/19/22 09/20/22 12/04/22 08:35 08:54 08:59 Total Creatine Kinase 353 H 27 57 C-Reactive Protein 0.68 H Laboratory Tests 12/04/22 08:59 WBC 1.3 L Hgb 9.8 L Lymph # (Auto) 0.2 L Absolute Neuts (auto) 0.9 L ESR 53 H Assessment & Plan Assessment & Plan (1) terminal carman current use of immunosuppressive drug: Code(s): Z79.899 - Other senior living (current) drug therapy (2) Osteopenia: Comment: September 2021: Alendronate started because of need for high-dose prednisone Code(s): M85.80 - Other specified disorders of bone density and structure, unspecified site (3) Leukopenia: Code(s): D72.819 - Decreased white blood cell count, unspecified (4) Dermatomyositis: Comment: on skin biopsy 07/2021 - Dr Krishna 08/10/2021 prednisone started. azathioprine added OSIRIS 1:80, CPK 991, marked proximal muscle weakness, CLARK neg, anti-SRP negative; aldolase WNL Associated breast cancer found 11/2021: Azathioprine stopped due to chemoRx 11/2021: flare of skin rash with taper of prednisone to 30mg 12/2021: monthly IV IVIG started 02/2022: prednisone stopped Code(s): M33.90 - Dermatopolymyositis, unspecified, organ involvement unspecified Plan She is finally off the prednisone but unfortunately has developed a return of the skin rash consistent with her dermatomyositis. The patient does not seem to have increased weakness. The last CPK was normal. At this point I think we should go back on the prednisone but see if we can avoid further flare up with 20 mg every other day, she was given the 5 mg tablets. The white count is very low and, likely due to the azathioprine so will have to cut it back to just 2 tablets a day. She does not seem to have any infection currently but might have had a gastroenteritis over the weekend. Given that she is going back on the prednisone I think she should be back on the alendronate 70 mg weekly. Bone density in July of 2021 it had shown osteopenia but she has had extensive exposure to prednisone including at very high doses so I think she needs to stay on the alendronate. We will recheck things in about 6 weeks. She will get the planned IVIG infusions on the and of this month. I will see if we can check the blood count before that visit with a CBC, CRP and CPK. Orders: Orders Complete Blood Count Auto Diff Today M33.90 - Dermatopolymyositis, unspecified, organ involvement unspecified C Reactive Protein Today M33.90 - Dermatopolymyositis, unspecified, organ involvement unspecified Creatine Kinase Total Today M33.90 - Dermatopolymyositis, unspecified, organ involvement unspecified Medications: New alendronate 70 mg PO QWEEK 12 tabs 2RF M85.80 - Other specified disorders of bone density and structure, unspecified site prednisone 20 mg (4 x 5 mg) PO Q OTHER DAY 60 tabs 2RF M33.90 - Dermatopolymyositis, unspecified, organ involvement unspecified Changed From azathioprine 50 mg PO TID 90 tabs 2RF M33.90 - Dermatopolymyositis, unspecified, organ involvement unspecified To azathioprine 50 mg PO BID 60 tabs 2RF M33.90 - Dermatopolymyositis, unspecified, organ involvement unspecified Coding Level of Care Code Est Pt Level 4 (79987) Diagnoses skilled nursing current use of immunosuppressive drug Z79.899 Osteopenia M85.80 Leukopenia D72.819 Dermatomyositis M33.90
[2022-12-10 11:47] VITALS: BP 144/54; PULSE 78; TEMP 37.7; O2SAT 99
== END 2022-12-10 12:26 | disposition home or self-care (01) ==
PROVIDERS: PCP Nurse Practitioner Family; Visit Provider Internal Medicine Rheumatology
DX: Z79.899 Other long term (current) drug therapy (principal); M85.80 Other specified disorders of bone density and structure, unspecified site; D72.819 Decreased white blood cell count, unspecified; M33.90 Dermatopolymyositis, unspecified, organ involvement unspecified
CPT/HCPCS: 99214

== ENCOUNTER → 2022-12-10 11:32 | Outpatient (BNVA) | payer MEDICARE, SELFPAY | PROVIDERS: PCP Nurse Practitioner Family; Visit Provider Internal Medicine Rheumatology | DX: M33.90 Dermatopolymyositis, unspecified, organ involvement unspecified (principal); D72.819 Decreased white blood cell count, unspecified; M85.80 Other specified disorders of bone density and structure, unspecified site; Z79.899 Other long term (current) drug therapy | CPT/HCPCS: 99212 ==

== ENCOUNTER 2023-01-01 12:46 | Outpatient (AMB) | payer MEDICARE, SELFPAY ==
[2023-01-01 13:07] VITALS: PULSE 66; O2SAT 97; BMI 29.8
--- NOTE | 2023-01-01 13:07 | A.OFFVIS_ITS ---
Intake Vital Signs 01/01/23 13:07 Height 5 ft 3 in Weight 168 lb 3.403 oz BMI 29.8 Pulse 66 Pulse Source Pulse Oximeter Pulse Oximetry (%) 97 Oxygen Delivery Method Room Air Intake Visit Reasons: Pulmonary nodule Tube Drawer Required: No Allergies No Known Allergies Allergy (Verified 01/01/23 13:08) HPI HPI Comments History of Present Illness Details The patient 67 year woman with right sided breast cancer. Started carboplatin/docetaxel/Herceptin/pertuzumab based chemotherapy x 15 cycles and now onHerceptin and pertuzumab maintenance. Patient follow-up adverse effects from the chemotherapy developing chemo related dermatomyositis, then UTI. She went to [place] in March 2022 and developed a left sided pneumonia and a small to moderate pleural effusion. She had a repeat CT chest 06/2022 with a residual effusion. Too small to tap. She has been having worsening LE edema. Actually gained 16lbs while visiting in [place]. Now on lasix 40mg daily. ECHO with normal EF, but, grade 2 diastolic dysfunction. 01/01/2023 the patient is here for a [facility]. The patient now is feeling better. She lost a lot a weight partly because of the chemotherapy. Although now she is feeling better and she has having some hair grow back. She is also on the prednisone for the amount of myositis she takes that every other day. For respiratory status the patient is doing well. She does have the diuretic. The patient was able to decrease the diuresis since she is doing better. She is going to be monitoring her weights closely in addition to her lower extremity edema. She is going to follow the recommendations from Cardiology. Her last chest x-ray was done October 2022 with evidence of pulmonary vascular congestion but no pleural effusions. Will plan to repeat the x-ray in May or June when she comes back for follow-up. If the patient has any worsening symptoms prior to that she can always call us and have the x-ray done earlier. [facility] Medical History (Updated 01/01/23 @ 13:23 by Ronal Hu MD) CHF (congestive heart failure) Pleural effusion History of right breast cancer Axillary adenopathy Bacteremia due to Klebsiella pneumoniae SIRS (systemic inflammatory response syndrome) Acute hypokalemia UTI (urinary tract infection) Abdominal pain Anemia Atrial arrhythmia Acute on chronic heart failure with preserved ejection fraction (HFpEF) Acute diastolic (congestive) heart failure Pancytopenia Diarrhea Pancolitis Colitis Nonsustained supraventricular tachycardia Port-A-Cath in place Pain in both feet Pedal edema History of COVID-19 Invasive ductal carcinoma of right breast Breast cancer, right Dermatomyositis Breast calcification, right Encounter to establish care Lumbar degenerative disc disease Hypertension Major depression, chronic Insomnia Anxiety Surgical History Hx of colonoscopy Status post right breast lumpectomy History of arthroscopic knee surgery History of hysterectomy History of section History of cholecystectomy History of gastric bypass History of fusion of cervical spine History of tonsillectomy Family History Mother No problems noted. Father Breast cancer Bone cancer Brother Substance use disorder Paternal Aunt Breast cancer Social History Household Members: Significant Other, Family and Children Housing: House Are you a primary client care manager to a significant other at home: No Do you presently have visiting nurse or other home services: Yes ([facility]) Alcohol intake: former Patient Tobacco Use Status: Former Tobacco user Quit Date: 12 years ago Tobacco use type: Cigarette e-Cigarette/Vaping Use: Never Used Second Hand Smoke Exposure: No Advance Directives Date on File: 11/28/21 service: No Current occupational status: unemployed and retired Cognitive needs: Yes (cane) Hearing needs: No Vision needs: Yes (glasses) Female Reproductive History Menstrual Age of Menarche: 17 Review of Systems Const Denies chills, Denies fatigue, Denies fever(s), Denies frequent falls, Denies weakness, Denies weight gain and Denies weight loss ENT Denies dizziness Card Denies chest pain, Denies leg edema, Denies lightheadedness, Denies palpitations, Denies dyspnea, Denies dyspnea on exertion, Denies orthopnea and Denies other (loss of consciousness) Resp Denies cough, Denies dyspnea and Denies dyspnea on exertion GI Denies hematochezia and Denies change in stool character Musc Denies abnormal gait, Denies muscle weakness, Denies numbness, Denies radiating pain into limb and Denies tingling Neuro Denies abnormal gait, Denies dizziness, Denies frequent falls, Denies numbness, Denies tingling and Denies weakness Endo Denies fatigue and Denies palpitations Physical Exam Vital Signs: Last Vital Signs Pulse 66 01/01/23 13:07 Pulse Ox 97 01/01/23 13:07 Oxygen Delivery Method Room Air 01/01/23 13:07 BMI result Body Mass Index 29.8 Const General: cooperative, comfortable, no acute distress, alert and awake Nutritional Appearance: obese Limitations: ambulation with cane Neck Neck: Yes trachea midline, Yes supple and Yes no JVD Resp Effort & Inspection: normal respiratory effort Auscultation: diminished lung sounds Cardio Jugular venous distension: no JVD Palpation: normal PMI Rate: regular rate Rhythm: regular rhythm Heart sounds: S1 normal heart sound present, S2 normal heart sound present, no click, no gallops and no murmurs GI Auscultation: normal bowel sounds Neuro General: no focal motor deficits Extrem General: Yes no clubbing, cyanosis or edema Immunizations pneumoc 20-vish conj-dip cr(PF) 0.5 mL IM syringe Performing Provider: Ronal Hu MD Performing Location: [facility] Administered by: Mere Moore LPN on 01/01/23 13:20 Dose Route Admin Location Dispensed Lot Number Expiration Date [facility] Energy [employer]st 0.5 mL IM Left Deltoid 0.5 mL [id number] 01/09/24 [employer] VIS Given Date VIS Provided VIS Publication Date 01/01/23 Single Vaccine 22 Eligibility Eligibility Date Funding Source Not [facility] Eligible 01/01/23 Private Assessment & Plan Assessment & Plan (1) Pleural effusion: Code(s): J90 - Pleural effusion, not elsewhere classified (2) 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 azathioprine added OSIRIS 1:80, CPK 991, marked proximal muscle weakness, CLARK neg, anti-SRP negative; aldolase WNL Associated breast cancer found 11/2021: Azathioprine stopped due to chemoRx 11/2021: flare of skin rash with taper of prednisone to 30mg 12/2021: monthly IV IVIG started 02/2022: prednisone stopped Code(s): M33.90 - Dermatopolymyositis, unspecified, organ involvement unspecified (4) Acute on chronic heart failure with preserved ejection fraction (HFpEF): Code(s): I50.33 - Acute on chronic diastolic (congestive) heart failure Plan Diuresis as tolerated CXR F/U 4-6 months Orders: Orders XR chest 2V Today J90 - Pleural effusion, not elsewhere classified Pneumococcal 20 Immunization Today Z23 - Encounter for immunization Coding Level of Care Code Est Pt Level 4 (84748) Diagnoses Pleural effusion J90 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
== END 2023-01-01 13:22 | disposition home or self-care (01) ==
PROVIDERS: PCP Nurse Practitioner Family; Visit Provider Hospitalist
DX: J90 Pleural effusion, not elsewhere classified (principal); C50.919 Malignant neoplasm of unspecified site of unspecified female breast; M33.90 Dermatopolymyositis, unspecified, organ involvement unspecified; I50.33 Acute on chronic diastolic (congestive) heart failure
CPT/HCPCS: 99214

== ENCOUNTER → 2023-01-01 12:46 | Outpatient (BNVA) | payer MEDICARE, SELFPAY | PROVIDERS: PCP Nurse Practitioner Family; Visit Provider Hospitalist | DX: Z23 Encounter for immunization (principal); J90 Pleural effusion, not elsewhere classified; M33.90 Dermatopolymyositis, unspecified, organ involvement unspecified; C50.919 Malignant neoplasm of unspecified site of unspecified female breast; I50.33 Acute on chronic diastolic (congestive) heart failure | CPT/HCPCS: 90471; 90677; 99212 ==

== ENCOUNTER 2023-01-07 07:14 | Outpatient (REF) | payer MEDICARE, SELFPAY ==
[2023-01-07 08:46] LABS: Basophils Percent Auto 0.5 % (0-2); Eosinophils Percent Auto 1.6 % (0-4); Hemoglobin 9.1 g/dl (12.0-16.0); Lymphocytes Absolute Auto 0.1 X10*3/uL (1.2-4.9); MANUAL DIFF FLAG SCAN; Mean Corpuscular HGB Conc 32.5 g/dl (31.0-35.0); Mean Corpuscular Hemoglobin 31.1 pg (27.0-33.0); Mean Corpuscular Volume 95.6 fL (80.0-98.0); Mean Platelet Volume 9.5 fL (9.4-12.3); Monocytes Absolute Auto 0.2 X10*3/uL (0.1-1.2); Monocytes Percent Auto 10.7 % (2-11); Neutrophils Absolute Auto 1.5 x10*3/uL (2.0-8.3); Neutrophils Percent Auto 80.2 % (45-73); Red Blood Count 2.93 X10*6/uL (4.20-5.50); Red Cell Distribution Width 15.9 % (11.0-16.0); SCAN SMEAR FLAG 1
[2023-01-07 08:47] LABS: Platelet Count 83 X10*3/uL (160-400); White Blood Count 1.9 X10*3/uL (4.8-10.8)
[2023-01-07 09:05] LABS: C Reactive Protein 0.29 mg/dL (< or = 0.50)
[2023-01-07 09:18] LABS: SLIDE REVIEW VERIFIED
[2023-01-07 09:25] LABS: Erythrocyte Sedimentation Rate 22 MM/HR (0-20)
== END 2023-01-07 07:15 | disposition home or self-care (01) ==
LOC: HO.LAB 07:14
PROVIDERS: PCP Nurse Practitioner Family; Visit Provider Internal Medicine Rheumatology
DX: Z13.89 Encounter for screening for other disorder (principal)
CPT/HCPCS: 36415; 82550; 85025; 85652; 86140

== ENCOUNTER 2023-01-07 07:24 | Outpatient (REF) | payer MEDICARE, SELFPAY | END 2023-01-07 07:25 | disposition home or self-care (01) | LOC: HO.MDS 07:24 | PROVIDERS: Visit Provider Internal Medicine Rheumatology | DX: M33.90 Dermatopolymyositis, unspecified, organ involvement unspecified (principal) | CPT/HCPCS: 36415; 82550; 85025; 85652; 86140; 96365; 96366; J1569; J1642 ==

== ENCOUNTER 2023-01-08 07:35 | Outpatient (REF) | payer MEDICARE, SELFPAY | END 2023-01-08 07:36 | disposition home or self-care (01) | LOC: HO.MDS 07:35 | PROVIDERS: Visit Provider Internal Medicine Rheumatology | DX: M33.90 Dermatopolymyositis, unspecified, organ involvement unspecified (principal) | CPT/HCPCS: 96365; 96366; J1569; J1642 ==

== ENCOUNTER 2023-01-28 09:12 | Outpatient (AMB) | payer MEDICARE, SELFPAY ==
--- NOTE | 2023-01-28 09:19 | MHC.OFFVIS ---
Intake Vital Signs 01/28/23 09:29 Height 5 ft 3 in Weight 161 lb 8 oz BMI 28.6 BP 127/59 L Blood Pressure Location Lt brachial Position Sitting Pulse 64 Intake Visit Reasons: Follow Up Breast Exam Intake Note: Patient is seen in office for follow up visit, breast exam. Patient c/o: finished radiation on 07/2022 @ [facility], has not started any new medications, breast feel hard, denies any other concerns Template Checker Required: No Accompanied by: Self / Same As Patient Allergies No Known Allergies Allergy (Verified 01/28/23 09:20) Medication List - Last Reconciled 01/28/23 by Domo Palacios MD alendronate 70 mg PO QWEEK azathioprine 50 mg PO BID betamethasone dipropionate 0.05% topical calcium carbonate-vitamin D3 600 mg-10 mcg (400 unit) 1 tab PO DAILY cholecalciferol (vitamin D3) 25 mcg PO BEDTIME clonidine HCl 0.2 mg PO BEDTIME cyanocobalamin (vitamin B-12) 1,000 mcg PO BEDTIME digoxin 0.25 mg PO DAILY duloxetine (Cymbalta) 60 mg PO DAILY furosemide 40 mg PO DIRECTED 90 days immun glob N-jzq-osak-IgA 0-50 10 gram (Gammagard S-D (IgA < 1 mcg/mL)) 70 grams IV DAILY 2 days ketorolac 0.5% drps ophthalmic (eye) loperamide 2 mg PO Q4H PRN magnesium oxide 400 mg PO BID miscellaneous medical supply 1 ea miscellaneous DAILY potassium chloride ER (Klor-Con M) 20 mEq PO BID prednisone 20 mg (4 x 5 mg) PO Q OTHER DAY walker (Ultra-Light Rollator [facility] [place] [place]) As directed. Rollator walker with the seat [facility] Follow Up Breast Exam HPI Details She is here for follow-up for her right breast cancer, invasive ductal, and she had undergone lumpectomy and sentinel biopsy last October 2021. She had a T1 N1 lesion at that time. She had undergone chemotherapy with Dr. Hernández and was on THCP regimen She says she has she feels well overall. She continues to follow-up with Dr. Hernández and was just seen by her a month ago. She denies any palpable breast masses. She says she is due for mammogram next month. [facility] Medical History (Updated 01/28/23 @ 10:07 by Domo Palacios MD) History of right breast cancer CHF (congestive heart failure) Pleural effusion Axillary adenopathy Bacteremia due to Klebsiella pneumoniae SIRS (systemic inflammatory response syndrome) Acute hypokalemia UTI (urinary tract infection) Abdominal pain Anemia Atrial arrhythmia Acute on chronic heart failure with preserved ejection fraction (HFpEF) Acute diastolic (congestive) heart failure Pancytopenia Diarrhea Pancolitis Colitis Nonsustained supraventricular tachycardia Port-A-Cath in place Pain in both feet Pedal edema History of COVID-19 Invasive ductal carcinoma of right breast Breast cancer, right Dermatomyositis Breast calcification, right Encounter to establish care Lumbar degenerative disc disease Hypertension Major depression, chronic Insomnia Anxiety Surgical History Hx of colonoscopy Status post right breast lumpectomy History of arthroscopic knee surgery History of hysterectomy History of section History of cholecystectomy History of gastric bypass History of fusion of cervical spine History of tonsillectomy Family History Mother No problems noted. Father Breast cancer Bone cancer Brother Substance use disorder Paternal Aunt Breast cancer Household Members: Significant Other, Family and Children Housing: House Are you a primary critical care educator to a significant other at home: No Do you presently have visiting nurse or other home services: Yes ([facility]) Alcohol intake: former Patient Tobacco Use Status: Former Tobacco user Quit Date: 12 years ago Tobacco use type: Cigarette e-Cigarette/Vaping Use: Never Used Second Hand Smoke Exposure: No Advance Directives Date on File: 11/28/21 service: No Current occupational status: unemployed and retired Cognitive needs: Yes (cane) Hearing needs: No Vision needs: Yes (glasses) Female Reproductive History Menstrual Age of Menarche: 17 Review of Systems Const Denies chills and Denies fever(s) Card Denies chest pain, Denies dyspnea and Denies dyspnea on exertion Resp Denies cough, Denies dyspnea and Denies dyspnea on exertion GI Denies hematochezia and Denies change in bowel habits Denies hematuria Musc Reports back pain, Reports myalgias, Reports arthralgias and Denies limited range of motion Neuro Denies focal weakness and Denies convulsions Psych Denies depression and Denies mood swings Physical Exam Vital Signs: Last Vital Signs Pulse 64 01/28/23 09:29 BP 127/59 L 01/28/23 09:29 BMI result Body Mass Index 28.6 Const Other: Appears frail and walks with a cane General: comfortable and no acute distress Orientation/consciousness: patient oriented x3 Neck Neck: Yes no lymphadenopathy Chest Other: Radiation changes to the right breast, no palpable masses, no axillary lymphadenopathy Resp Effort & Inspection: normal respiratory effort Auscultation: clear to auscultation bilaterally Cardio Rate: regular rate Rhythm: regular rhythm GI Palpation (GI): Soft to palpation, not firm and nontender Neuro General: patient oriented x3 Assessment & Plan Assessment & Plan (1) History of right breast cancer: Code(s): Z85.3 - Personal history of malignant neoplasm of breast Plan: Current exam does not reveal any new masses on both the left and the right breast. There is no axillary lymphadenopathy. She does have radiation changes on the right breast . She says that she is due for her mammogram again. This will be ordered. We may likely alternate this with MRI in between her yearly mammograms to decrease posterior to radiation. I will see her in the office about 6 months. She is to continue to see Dr. Hernández as well. Orders: Orders MM tomosynthesis screen imp BI 01/28/23 Z85.3 - Personal history of malignant neoplasm of breast Coding Level of Care Code Est Pt Level 3 (32746) Diagnoses History of right breast cancer Z85.3
[2023-01-28 09:29] VITALS: BP 127/59; PULSE 64; BMI 28.6
== END 2023-01-28 10:10 | disposition home or self-care (01) ==
PROVIDERS: PCP Nurse Practitioner Family; Visit Provider Surgery
DX: Z85.3 Personal history of malignant neoplasm of breast (principal)
CPT/HCPCS: 99213

== ENCOUNTER → 2023-01-28 09:12 | Outpatient (BNVA) | payer MEDICARE, SELFPAY | PROVIDERS: PCP Nurse Practitioner Family; Visit Provider Surgery | DX: Z85.3 Personal history of malignant neoplasm of breast (principal) | CPT/HCPCS: 99212 ==

== ENCOUNTER 2023-02-04 13:30 | Outpatient (AMB) | payer MEDICARE, SELFPAY ==
[2023-02-04 13:33] VITALS: BP 110/54; PULSE 64; TEMP 2.3; TEMP 36.1; O2SAT 97; BMI 28.5
--- NOTE | 2023-02-04 13:33 | A.OFFVIS_ITS ---
Intake Vital Signs 3 02/04/23 13:33 Height 5 ft 3 in Weight 161 lb 2.526 oz BMI 28.5 BP 110/54 L Blood Pressure Location Lt brachial Position Sitting Pulse 64 Pulse Source Pulse Oximeter Temp 36.1 F L Temp Source Skin Pulse Oximetry (%) 97 Oxygen Delivery Method Room Air Intake Visit Reasons: DM Intake Note: Patient presents today to follow up on dermatomyositis. Reports scabs on head and pain on fingertip. Computer Training Specialist Required: No Accompanied by: Self / Same As Patient Allergies No Known Allergies Allergy (Verified 02/04/23 13:33) Medication List - Last Reconciled 02/04/23 by Panda Felix MD alendronate 70 mg PO QWEEK azathioprine 50 mg PO BID betamethasone dipropionate 0.05% topical calcium carbonate-vitamin D3 600 mg-10 mcg (400 unit) 1 tab PO DAILY cholecalciferol (vitamin D3) 25 mcg PO BEDTIME clonidine HCl 0.2 mg PO BEDTIME cyanocobalamin (vitamin B-12) 1,000 mcg PO BEDTIME digoxin 0.25 mg PO DAILY duloxetine (Cymbalta) 60 mg PO DAILY furosemide 40 mg PO DIRECTED 90 days immun glob I-tns-elst-IgA 0-50 10 gram (Gammagard S-D (IgA < 1 mcg/mL)) 70 grams IV DAILY 2 days ketorolac 0.5% drps ophthalmic (eye) loperamide 2 mg PO Q4H PRN magnesium oxide 400 mg PO BID miscellaneous medical supply 1 ea miscellaneous DAILY potassium chloride ER (Klor-Con M) 20 mEq PO BID prednisone 20 mg (4 x 5 mg) PO Q OTHER DAY walker (Ultra-Light Rollator [facility]) As directed. 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 She says she finished off the last round of chemotherapy back in December. She thinks she may have to go on a chronic hormonal treatment in the next few months. She is still receiving monthly IVIG, 70 g daily for 2 days each month, azathioprine 50 mg b.i.d. and prednisone 20 mg on alternate days. She had been off the prednisone but when the rash came back I put her on the alternate day regimen. She is due for the IVIG in a week or so. She does not seem to have any side effects with that regimen. She thinks the muscles are getting stronger. She had both cataracts done so now is able to drive and feels more confident walking. Unfortunately she is still bothered by skin rash. This is associated with some scaling areas over the scalp where she has some alopecia, some facial redness and scaling, and redness over the PIP and MCP regions. The fingertips are also somewhat tender when she squeezes firmly with the hands. She has no hand numbness however. She remains on alendronate 70 mg weekly, vitamin-D3 25 mg daily, and duloxetine 60 mg daily. With the regular digoxin and furosemide her ankle edema and orthopnea have improved substantially. She noted a big improvement in her vision that enabled her to do more walking and now driving her car. This has enabled her to gain some muscle strength and balance. [facility] Medical History (Updated 02/04/23 @ 17:36 by Panda Felix MD) History of right breast cancer CHF (congestive heart failure) Pleural effusion Axillary adenopathy Bacteremia due to Klebsiella pneumoniae SIRS (systemic inflammatory response syndrome) Acute hypokalemia UTI (urinary tract infection) Abdominal pain Anemia Atrial arrhythmia Acute on chronic heart failure with preserved ejection fraction (HFpEF) Acute diastolic (congestive) heart failure Pancytopenia Diarrhea Pancolitis Colitis Nonsustained supraventricular tachycardia Port-A-Cath in place Pain in both feet Pedal edema History of COVID-19 Invasive ductal carcinoma of right breast Breast cancer, right Dermatomyositis Breast calcification, right Encounter to establish care Lumbar degenerative disc disease Hypertension Major depression, chronic Insomnia Anxiety Surgical History Hx of colonoscopy Status post right breast lumpectomy History of arthroscopic knee surgery History of hysterectomy History of section History of cholecystectomy History of gastric bypass History of fusion of cervical spine History of tonsillectomy Family History Mother No problems noted. Father Breast cancer Bone cancer Brother Substance use disorder Paternal Aunt Breast cancer Household Members: Significant Other, Family and Children Housing: House Are you a primary child day care provider to a significant other at home: No Do you presently have visiting nurse or other home services: Yes ([facility]) Alcohol intake: former Patient Tobacco Use Status: Former Tobacco user Quit Date: 12 years ago Tobacco use type: Cigarette e-Cigarette/Vaping Use: Never Used Second Hand Smoke Exposure: No Advance Directives Date on File: 11/28/21 service: No Current occupational status: unemployed and retired Cognitive needs: Yes (cane) Hearing needs: No Vision needs: Yes (glasses) Female Reproductive History Menstrual Age of Menarche: 17 Review of Systems Const Details: Some weight loss with more physical activity. Negative for appetite change, fever, chills, malaise and fatigue Eyes Details: Her vision improved substantially with the cataract surgery. Negative for dry eyes,headaches and dizziness ENT Details: Negative for hearing change, tinnitus, oral ulcer, nose bleeds and oral dryness. Card Details: Negative chest pain, edema and syncope Resp Details: Occasional cough. Negative for SOB, sputum production and wheezing GI Details: Negative indigestion/heartburn, nausea, abdominal pain, bowel changes, diarrhea, constipation and bloody stool. Details: Negative for dysuria, hematuria, nocturia, decreased force/flow and genital discharge Skin/Breast Details: Rash on the face, chest, neck, and hands as noted above. Negative for hives, Raynaud's symptoms, sun sensitivity, and skin cancer Neuro Details: She thinks the muscle strength in the arms and legs is almost back to normal. Negative for epilepsy, palsy, stroke, changes in speech, tingling and weakness Psych Details: Negative for anxiety, depression and stress Endo Details: Negative for polyuria and polydypsia Pacheco/Lymph Details: Negative for excessive bruising or bleeding. Physical Exam Vital Signs: Last Vital Signs Temp 36.1 F L 02/04/23 13:33 Pulse 64 02/04/23 13:33 BP 110/54 L 02/04/23 13:33 Pulse Ox 97 02/04/23 13:33 Oxygen Delivery Method Room Air 02/04/23 13:33 BMI result Body Mass Index 28.5 APPEARANCE: Patient in no acute distress EYES no redness, pupils equal and reactive to light. The eyelids are slightly red as well. EARS: External ear normal, canal clear and tympanic membrane normal. NOSE/SINUS: Airflow through both nares, no nasal discharge, no bleeding THROAT: Oral mucosa moist, no ulcerations NECK:? No thyromegaly or masses, no adenopathy, trachea midline. HEART:? Regulrar rhythm, S1-S2 heard, no murmurs, rubs or gallops. LUNG:? Clear to percussion and auscultation ABD:? Normal bowel sounds, no organomegaly, masses or tenderness. EXTREMITIES:? No edema, no calf tenderness, normal peripheral pulses. NEURO:? There is 5/5 proximal muscle strength in the upper extremities. She may be morning 4.5/5 at the quadriceps. She can stand up unassisted but use of arms to stand up from a chair. SKIN:? Patchy redness with slight scale around the neck, anterior chest, and upper back.? There is a bit more prominent redness around the malar region, nose, and forehead. She also has some slightly scaly red patches of skin over the PIP and MCP areas in both hands, more prominent on the left. This is consistent with some Gottron's papules. She has had these before of course. Photos today: JOINT EXAM:? No swollen or tender joints. ? Results Reviewed Results Reviewed: Laboratory Tests 01/04/23 01/07/23 01/07/23 10:25 08:41 08:41 WBC 1.9 L Hgb 9.1 L ESR 22 H Creatinine 0.97 Total Creatine Kinase 52 C-Reactive Protein 0.29 Assessment & Plan Assessment & Plan (1) Long-term use of immunosuppressant medication: Code(s): Z79.60 - nursing home (current) use of unspecified immunomodulators and immunosuppressants (2) Osteopenia: Comment: September 2021: Alendronate started because of need for high-dose prednisone Code(s): M85.80 - Other specified disorders of bone density and structure, unspecified site (3) Dermatomyositis: Comment: on skin biopsy 07/2021 - Dr Krishna 08/10/2021 prednisone started. azathioprine added OSIRIS 1:80, CPK 991, marked proximal muscle weakness, CLARK neg, anti-SRP negative; aldolase WNL Associated breast cancer found 11/2021: Azathioprine stopped due to chemoRx 11/2021: flare of skin rash with taper of prednisone to 30mg 12/2021: monthly IV IVIG started 02/2022: prednisone stopped Prednisone restarted on every other day basis because of recurrence of skin rash Code(s): M33.90 - Dermatopolymyositis, unspecified, organ involvement unspecified Plan Dermatomyositis with good improvement most recently in her muscle strength. The CPK has been normal for quite some time. However the rash had come back earlier this fall. At least some of this on the face looks more like a seborrheic dermatitis picture. The findings on the skin over the PIP's are not as prominently inflamed as they had been. We will see if we can get away with just some 1% hydrocortisone cream to the face and hands with some betamethasone liquid to the scalp lesions. She was encouraged to continue with physical activity to try to regain her muscle strength. I had cut back on the azathioprine because of leukopenia so we will recheck the CBC today as well as other chemistries and inflammatory markers. She will continue with the alendronate for the osteopenia in light of her prolonged prednisone use as well as the continued alternate day prednisone that she seems to need. I think she should continue on the IVIG every month for now. If the rash would subside we could see about tapering the IVIG. Alternatively if the rash does not taper off we might consider a trial of hydroxychloroquine since there are features of the rash on the face that look similar to lupus. Orders: Orders 2 Erythrocyte Sedimentation Rate Today M33.90 - Dermatopolymyositis, unspecified, organ involvement unspecified, Z79.60 - nursing home (current) use of unspecified immunomodulators and immunosuppressants Complete Blood Count Auto Diff Today M33.90 - Dermatopolymyositis, unspecified, organ involvement unspecified, Z79.60 - nursing home (current) use of unspecified immunomodulators and immunosuppressants C Reactive Protein Today M33.90 - Dermatopolymyositis, unspecified, organ involvement unspecified, Z79.60 - nursing home (current) use of unspecified immunomodulators and immunosuppressants Creatine Kinase Total Today M33.90 - Dermatopolymyositis, unspecified, organ involvement unspecified, Z79.60 - nursing home (current) use of unspecified immunomodulators and immunosuppressants Comprehensive Met. Panel Today M33.90 - Dermatopolymyositis, unspecified, organ involvement unspecified, Z79.60 - terminal make up operator (current) use of unspecified immunomodulators and immunosuppressants Medications: New 2 hydrocortisone 1% (Anti-Itch (hydrocortisone)) to facial rash 1 appl topical DAILY 57 grams 2RF M33.90 - Dermatopolymyositis, unspecified, organ involvement unspecified Changed 2 From betamethasone dipropionate 0.05% topical M33.90 - Dermatopolymyositis, unspecified, organ involvement unspecified To betamethasone dipropionate 0.05% apply to scalp lesions 1-2 times daily; 120 mL 2RF M33.90 - Dermatopolymyositis, unspecified, organ involvement unspecified Coding Level of Care Code Est Pt Level 4 (19091) Diagnoses Long-term use of immunosuppressant medication Z79.60 Osteopenia M85.80 Dermatomyositis M33.90
== END 2023-02-04 14:12 | disposition home or self-care (01) ==
LOC: HO.RHE 13:30
PROVIDERS: PCP Nurse Practitioner Family; Visit Provider Internal Medicine Rheumatology
DX: Z79.60 Long term (current) use of unspecified immunomodulators and immunosuppressants (principal); M85.80 Other specified disorders of bone density and structure, unspecified site; M33.90 Dermatopolymyositis, unspecified, organ involvement unspecified
CPT/HCPCS: 99214

== ENCOUNTER → 2023-02-04 13:30 | Outpatient (BNVA) | payer MEDICARE, SELFPAY | PROVIDERS: PCP Nurse Practitioner Family; Visit Provider Internal Medicine Rheumatology | DX: M33.90 Dermatopolymyositis, unspecified, organ involvement unspecified (principal); M85.80 Other specified disorders of bone density and structure, unspecified site; Z79.60 Long term (current) use of unspecified immunomodulators and immunosuppressants | CPT/HCPCS: 99212 ==

== ENCOUNTER 2023-02-06 08:03 | Outpatient (REF) | payer MEDICARE, SELFPAY | END 2023-02-06 08:04 | disposition home or self-care (01) | LOC: HO.MDS 08:03 | PROVIDERS: Visit Provider Internal Medicine Rheumatology | DX: M33.90 Dermatopolymyositis, unspecified, organ involvement unspecified (principal) | CPT/HCPCS: 96365; 96366; J1569; J1642 ==

== ENCOUNTER 2023-02-07 08:02 | Outpatient (REF) | payer MEDICARE, SELFPAY ==
[2023-02-07 16:17] LABS: Hematocrit 28.7 % (37.0-47.0); Hemoglobin 9.6 g/dl (12.0-16.0); Mean Corpuscular HGB Conc 33.4 g/dl (31.0-35.0); Mean Corpuscular Hemoglobin 31.6 pg (27.0-33.0); Mean Corpuscular Volume 94.4 fL (80.0-98.0); Mean Platelet Volume 10.1 fL (9.4-12.3); Platelet Count 107 X10*3/uL (160-400); Red Blood Count 3.04 X10*6/uL (4.20-5.50); Red Cell Distribution Width 16.5 % (11.0-16.0)
[2023-02-07 16:29] LABS: Alanine Aminotransferase 23 U/L (0-31); Albumin Level 3.2 g/dL (3.5-5.0); Alkaline Phosphatase 79 U/L (39-117); Anion Gap 10 (12-20); Aspartate Amino Transferase 36 U/L (5-31); Bilirubin Total 0.5 mg/dL (0.0-1.0); Blood Urea Nitrogen 31 mg/dL (9-16); C Reactive Protein 0.19 mg/dL (< or = 0.50); Calcium 8.5 mg/dL (8.4-10.2); Carbon Dioxide 26 mmol/L (22-29); Chloride 101 mmol/L (96-108); Estimated Glomerular Filt Rate > 60; Glucose Random 130 mg/dL (60-115); Potassium 2.9 mmol/L (3.3-5.1); Sodium 134 mmol/L (135-145); Total Protein 8.6 g/dL (6.5-8.0)
[2023-02-07 16:45] LABS: White Blood Count 1.9 X10*3/uL (4.8-10.8)
[2023-02-07 17:06] LABS: Erythrocyte Sedimentation Rate 90 MM/HR (0-20)
[2023-02-07 17:11] LABS: Band Neutrophils Percent 3 % (3-5); Basophils Percent Manual 1 % (0-2); Lymphocytes Absolute Manual 0.2 X10*3/uL (1.2-4.9); Lymphocytes Percent Manual 10 % (20-40); Monocytes Absolute Manual 0.2 X10*3/uL (0.1-1.2); Monocytes Percent Manual 10 % (2-11); Neutrophils Absolute Manual 1.5 X10*3/uL (2.0-8.3); Neutrophils Percent Manual 76 % (45-73)
[2023-02-07 17:12] LABS: Platelet Estimate NORMAL (NORMAL); Platelet Morphology Comment NORMAL; RBC Morphology NORMAL
[2023-02-08 16:59] LABS: CA 27.29 19 U/mL (<38)
== END 2023-02-07 08:03 | disposition home or self-care (01) ==
LOC: HO.LAB 08:02
PROVIDERS: Internal Medicine Medical Oncology; PCP Nurse Practitioner Family; Visit Provider Internal Medicine Rheumatology
DX: Z13.89 Encounter for screening for other disorder (principal)
CPT/HCPCS: 36415; 80053; 82550; 85007; 85027; 85652; 86140; 86300

== ENCOUNTER 2023-02-07 08:07 | Outpatient (REF) | payer MEDICARE, SELFPAY | END 2023-02-07 08:08 | disposition home or self-care (01) | LOC: HO.MDS 08:07 | PROVIDERS: Visit Provider Internal Medicine Rheumatology | DX: M33.90 Dermatopolymyositis, unspecified, organ involvement unspecified (principal); C50.911 Malignant neoplasm of unspecified site of right female breast | CPT/HCPCS: 36415; 80053; 82550; 85007; 85027; 85652; 86140; 86300; 96365; 96366; J1569 ==

== ENCOUNTER 2023-02-20 11:27 | Outpatient (REF) | payer MEDICARE, SELFPAY ==
--- NOTE | ~2023-02-20 | MM_ITS ---
EXAMINATION: MM DIAGNOSTIC DIGITAL BREAST TOMOSYNTHESIS, BILATERAL CLINICAL INFORMATION: Follow-up lumpectomy for IDC right breast 2021. COMPARISON: Mammography: TECHNIQUE: Digital breast tomosynthesis is performed in both the craniocaudal and mediolateral oblique views along with computer-aided detection (CAD). Synthesized 2D images are generated from the tomosynthesis. FINDINGS: The breasts are heterogeneously dense, which may obscure small masses (ACR BI-RADS breast composition Category c). There are treatment related changes to the right breast including diffuse trabecular thickening, mild skin thickening, and dystrophic calcifications especially at the lumpectomy site. A seroma in the right axilla is no longer visualized. There is a small open coil clip within the right axilla. No evidence of recurrent mass, or new area of architectural distortion. Port seen in the left axilla. No suspicious findings identified in the left breast. MM/MM tomosynthesis diagnostic BI IMPRESSION: There are no significant changes from prior study. Similar evolving post treatment related changes right breast. No evidence of recurrent malignancy. No suspicious findings in the left breast. Recommend one-year follow-up to complete the 3 year postop protocol. ASSESSMENT: BI-RADS BI-RADS 2 - Benign Findings RECOMMENDATION: 1 year F/U Results were provided to the patient at time of visit by the technologist. This patient's information was entered into a reminder system with a target due date for their next mammogram.
== END 2023-02-20 11:28 | disposition home or self-care (01) ==
LOC: HO.MAMMO 11:27
PROVIDERS: PCP Nurse Practitioner Family; Visit Provider Surgery
DX: Z85.3 Personal history of malignant neoplasm of breast (principal)
CPT/HCPCS: 77062; 77066

== ENCOUNTER → 2023-02-20 11:30 | Outpatient (BNV) | payer MEDICARE, SELFPAY | PROVIDERS: PCP Nurse Practitioner Family; Visit Provider Radiology Diagnostic Radiology | DX: Z85.3 Personal history of malignant neoplasm of breast (principal) | CPT/HCPCS: 77062; 77066 ==

== ENCOUNTER 2023-03-06 10:01 | Outpatient (REF) | payer MEDICARE, SELFPAY | END 2023-03-06 10:02 | disposition home or self-care (01) | LOC: HO.MDS 10:01 | PROVIDERS: Visit Provider Internal Medicine Rheumatology | DX: M33.90 Dermatopolymyositis, unspecified, organ involvement unspecified (principal) | CPT/HCPCS: 96365; 96366; J1569; J1642 ==

== ENCOUNTER 2023-03-07 08:30 | Outpatient (REF) | payer MEDICARE, SELFPAY | END 2023-03-07 08:31 | disposition home or self-care (01) | LOC: HO.MDS 08:30 | PROVIDERS: Visit Provider Internal Medicine Rheumatology | DX: M33.90 Dermatopolymyositis, unspecified, organ involvement unspecified (principal) | CPT/HCPCS: 96365; 96366; J1569; J1642 ==

== ENCOUNTER 2023-03-28 13:42 | Outpatient (AMB) | payer MEDICARE, SELFPAY ==
--- NOTE | 2023-03-28 13:43 | A.OFFVIS_ITS ---
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 Felix, presents today for follow up and test results. Concerned today for a skin rash on forehead. Allergies No Known Allergies Allergy (Verified 03/28/23 13:45) HPI HPI Comments 2 History of Present Illness0 Details Ms. 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 At the 01/2023 visit she reported that she had finished off the last round of chemotherapy back in December 2022. She is now on chronic hormonal treatment. She is still receiving monthly IVIG, 70 g daily for 2 days each month, azathioprine 50 mg b.i.d. and prednisone 20 mg on alternate days due to return of rash. She does not seem to have any side effects with this regimen. She reports continuous improvement in muscle strength. She had both cataracts done so now is able to drive and feels more confident walking. Unfortunately she is still bothered by skin rash. This is associated with some scaling areas over the scalp where she has some alopecia, some facial redness and scaling, and redness over the PIP and MCP regions. The fingertips are also somewhat tender when she squeezes firmly with the hands. She has no hand numbness however. She remains on alendronate 70 mg weekly for Osteopenia, vitamin-D3 25 mg daily, and duloxetine 60 mg daily. With the regular digoxin and furosemide her ankle edema and orthopnea have improved substantially. She noted a big improvement in her vision that enabled her to do more walking and now driving her car. This has enabled her to gain some muscle strength and balance. [facility] Medical History (Updated 03/28/23 @ 14:55 by DAQUAN Hall) Nocturnal cough History of right breast cancer CHF (congestive heart failure) Pleural effusion Axillary adenopathy Bacteremia due to Klebsiella pneumoniae SIRS (systemic inflammatory response syndrome) Acute hypokalemia UTI (urinary tract infection) Abdominal pain Anemia Atrial arrhythmia Acute on chronic heart failure with preserved ejection fraction (HFpEF) Acute diastolic (congestive) heart failure Pancytopenia Diarrhea Pancolitis Colitis Nonsustained supraventricular tachycardia Port-A-Cath in place Pain in both feet Pedal edema History of COVID-19 Invasive ductal carcinoma of right breast Breast cancer, right Dermatomyositis Breast calcification, right Encounter to establish care Lumbar degenerative disc disease Hypertension Major depression, chronic Insomnia Anxiety Surgical History Hx of colonoscopy Status post right breast lumpectomy History of arthroscopic knee surgery History of hysterectomy History of section History of cholecystectomy History of gastric bypass History of fusion of cervical spine History of tonsillectomy Family History Mother No problems noted. Father Breast cancer Bone cancer Brother Substance use disorder Paternal Aunt Breast cancer Social History Household Members: Significant Other, Family and Children Housing: House Are you a primary healthcare risk control consultant to a significant other at home: No Do you presently have visiting nurse or other home services: Yes ([facility]NA) Alcohol intake: former Comment: Pedal Edema and pain- uses cane Patient Tobacco Use Status: Former Tobacco user Quit Date: 12 years ago Tobacco use type: Cigarette e-Cigarette/Vaping Use: Never Used Second Hand Smoke Exposure: No Advance Directives Date on File: 11/28/21 service: No Current occupational status: unemployed and retired Cognitive needs: Yes (cane) Hearing needs: No Vision needs: Yes (glasses) Female Reproductive History Menstrual Age of Menarche: 17 Review of Systems Const All systems reviewed & are unremarkable except as noted in HPI and below Physical Exam Vital Signs: Last Vital Signs Temp 97 F 03/28/23 13:44 Pulse 62 03/28/23 13:44 BP 110/66 03/28/23 13:44 Pulse Ox 98 03/28/23 13:44 Oxygen Delivery Method Room Air 03/28/23 13:44 BMI result Body Mass Index 26.9 APPEARANCE: Patient in no acute distress EYES no redness, The eyelids are slightly red as well. EARS: External ear normal, canal clear and tympanic membrane normal. NECK:? No thyromegaly or masses, no adenopathy, trachea midline. HEART:? Regular rhythm, S1-S2 heard, no murmurs, rubs or gallops. LUNG:?Inspiratory wheeze, cough for about 10 days EXTREMITIES:? No edema, no calf tenderness, normal peripheral pulses. NEURO:? There is 5/5 proximal muscle strength in the upper extremities. She may be morning 4.5/5 at the quadriceps. She can stand up unassisted but use of arms to stand up from a chair. SKIN:? Patchy redness with slight scale around the neck, anterior chest, and upper back.? There is a bit more prominent redness around the malar region, nose, and forehead. She also has some slightly scaly red patches of skin over the PIP and MCP areas in both hands, more prominent on the left. This is consistent with some Gottron's papules. She has had these before of course. Photos today: JOINT EXAM:? No swollen or tender joints. ? Assessment & Plan Assessment & Plan (1) Long-term use of immunosuppressant medication: Code(s): Z79.60 - security officer (current) use of unspecified immunomodulators and immunosuppressants (2) Osteopenia: Comment: September 2021: Alendronate started because of need for high-dose prednisone Code(s): M85.80 - Other specified disorders of bone density and structure, unspecified site Qualifiers: Osteopenia location: multiple sites Qualified Code(s): M85.89 - Other specified disorders of bone density and structure, multiple sites (3) Dermatomyositis: Comment: on skin biopsy 07/2021 - Dr Krishna 08/10/2021 prednisone started. azathioprine added OSIRIS 1:80, CPK 991, marked proximal muscle weakness, CLARK neg, anti-SRP negative; aldolase WNL Associated breast cancer found 11/2021: Azathioprine stopped due to chemoRx 11/2021: flare of skin rash with taper of prednisone to 30mg 12/2021: monthly IV IVIG started 02/2022: prednisone stopped Prednisone restarted on every other day basis because of recurrence of skin rash Code(s): M33.90 - Dermatopolymyositis, unspecified, organ involvement unspecified (4) Nocturnal cough: Code(s): R05.8 - Other specified cough Plan #Dermatomyositis: Miss Almaguer 68 yoF reports continuos improvement in her muscle strength. The CPK has been normal for quite some time. However the rash had come back earlier this fall. At least some of this on the face looks more like a seborrheic dermatitis picture. The findings on the skin over the PIP's are not as prominently inflamed as they had been. We will see if we can get away with just some 1% hydrocortisone cream to the face and hands with some betamethasone liquid to the scalp lesions. She was encouraged to continue with physical activity to try to regain her muscle strength. I think she should continue on the IVIG every month for now. If the rash would subside we could see about tapering the IVIG. Alternatively if the rash does not taper off we might consider a trial of hydroxychloroquine since there are features of the rash on the face that look similar to lupus. #Osteopenia: 07/2021 DEXA lowest T score -2.0. She will continue with the alendronate for the osteopenia in light of her prolonged prednisone use as well as the continued alternate day prednisone that she seems to need. #Group Home Use: She has had some Leukopenia on the Azathioprine. The dose was adjusted down for the azathioprine because of leukopenia so we will recheck the CBC other chemistries and inflammatory markers. #Cough and Congestion: She is having a cough, mainly at night and chest congestion with Rhonchi on exam. Given her history of CHF and Pleural effusion, I will order a Chest Xray to further assess. Orders: Orders 2 Aldolase 03/28/23 M33.90 - Dermatopolymyositis, unspecified, organ involvement unspecified C Reactive Protein 03/28/23 M33.90 - Dermatopolymyositis, unspecified, organ involvement unspecified Creatine Kinase Total 03/28/23 M33.90 - Dermatopolymyositis, unspecified, organ involvement unspecified Erythrocyte Sedimentation Rate 03/28/23 M33.90 - Dermatopolymyositis, unspecified, organ involvement unspecified XR chest 2V 03/28/23 M33.90 - Dermatopolymyositis, unspecified, organ involvement unspecified, R05.8 - Other specified cough Coding Level of Care Code Est Pt Level 4 (94665) Diagnoses Long-term use of immunosuppressant medication Z79.60 Osteopenia of multiple sites M85.89 Osteopenia location: multiple sites Dermatomyositis M33.90 Nocturnal cough R05.8
[2023-03-28 13:44] VITALS: BP 110/66; PULSE 62; TEMP 36.1; O2SAT 98; BMI 26.9
== END 2023-03-28 14:23 | disposition home or self-care (01) ==
PROVIDERS: PCP Nurse Practitioner Family; Visit Provider Nurse Practitioner Family
DX: Z79.60 Long term (current) use of unspecified immunomodulators and immunosuppressants (principal); M85.89 Other specified disorders of bone density and structure, multiple sites; M33.90 Dermatopolymyositis, unspecified, organ involvement unspecified; R05.8 Other specified cough
CPT/HCPCS: 99214

== ENCOUNTER → 2023-03-28 13:42 | Outpatient (BNVA) | payer MEDICARE, SELFPAY | PROVIDERS: PCP Nurse Practitioner Family; Visit Provider Nurse Practitioner Family | DX: M33.90 Dermatopolymyositis, unspecified, organ involvement unspecified (principal); M85.89 Other specified disorders of bone density and structure, multiple sites; R05.8 Other specified cough; Z79.60 Long term (current) use of unspecified immunomodulators and immunosuppressants | CPT/HCPCS: 99212 ==

== ENCOUNTER 2023-03-29 11:56 | Outpatient (REF) | payer MEDICARE, SELFPAY ==
--- NOTE | ~2023-03-29 | XR_ITS ---
EXAMINATION: XR CHEST CLINICAL INFORMATION: Dermatopolymyositis inspiratory wheeze and rhonchi not cleared by cough. COMPARISON: 11/01/2022 chest. TECHNIQUE: 2 views of the chest were obtained. FINDINGS: There is no gross pneumothorax. Heart size is normal. S-shaped thoracolumbar scoliosis with multilevel degenerative changes. Redemonstration of left internal jugular Port-A-Cath. Cervicothoracic orthopedic plate with screws partially imaged. No gross pleural effusion. Redemonstration of similar mild pulmonary vascular congestion. XR/XR chest 2V IMPRESSION: Redemonstration of similar mild pulmonary vascular congestion. No gross pleural effusion.
[2023-03-29 14:40] LABS: Erythrocyte Sedimentation Rate 19 MM/HR (0-20)
[2023-03-29 14:51] LABS: C Reactive Protein 0.24 mg/dL (< or = 0.50)
[2023-04-03 05:05] LABS: Aldolase 3.7 U/L (<=8.1)
== END 2023-03-29 11:57 | disposition home or self-care (01) ==
LOC: HO.LAB 11:56
PROVIDERS: Visit Provider Nurse Practitioner Family
DX: M33.90 Dermatopolymyositis, unspecified, organ involvement unspecified (principal); R05.8 Other specified cough
CPT/HCPCS: 36415; 71046; 82085; 82550; 85652; 86140

== ENCOUNTER 2023-04-03 07:56 | Outpatient (REF) | payer MEDICARE, SELFPAY | END 2023-04-03 07:57 | disposition home or self-care (01) | LOC: HO.MDS 07:56 | PROVIDERS: Visit Provider Internal Medicine Rheumatology | DX: M33.90 Dermatopolymyositis, unspecified, organ involvement unspecified (principal) | CPT/HCPCS: 96365; 96366; J1569; J1642 ==

== ENCOUNTER 2023-04-04 08:12 | Outpatient (REF) | payer MEDICARE, SELFPAY | END 2023-04-04 08:13 | disposition home or self-care (01) | LOC: HO.MDS 08:12 | PROVIDERS: Visit Provider Internal Medicine Rheumatology | DX: M33.90 Dermatopolymyositis, unspecified, organ involvement unspecified (principal) | CPT/HCPCS: 96365; 96366; J1569; J1642 ==

== ENCOUNTER 2023-04-04 12:47 | Outpatient (AMB) | payer MEDICARE, SELFPAY ==
--- NOTE | 2023-04-04 12:57 | MHC.PC.OV ---
Vital Signs 04/04/23 13:00 Height 5 ft 3 in Weight 153 lb 4 oz BMI 27.1 BP 110/60 Blood Pressure Location Lt brachial Position Sitting Pulse 65 Pulse Source Pulse Oximeter Pulse Oximetry (%) 98 Oxygen Delivery Method Room Air Intake Visit Reasons: f/u HTN Intake Note: Patient is here to follow up on HTN, Chest xray results Optical Effects Line Up Person Required: No Machine Printer Hose: Not Required per policy Accompanied by: Self / Same As Patient Allergies No Known Allergies Allergy (Verified 04/04/23 13:43) Medication List - Last Reconciled 04/04/23 by Gerald Vance MD alendronate 70 mg PO QWEEK betamethasone dipropionate 0.05% apply to scalp lesions 1-2 times daily; calcium carbonate-vitamin D3 600 mg-10 mcg (400 unit) 1 tab PO DAILY cholecalciferol (vitamin D3) 25 mcg PO BEDTIME clonidine HCl 0.2 mg PO BEDTIME cyanocobalamin (vitamin B-12) 1,000 mcg PO BEDTIME digoxin 0.25 mg PO DAILY duloxetine (Cymbalta) 60 mg PO DAILY furosemide 40 mg PO DIRECTED 90 days hydrocortisone 1% (Anti-Itch (hydrocortisone)) 1 appl topical DAILY hydroxyzine HCl 25 mg PO BEDTIME PRN immun glob Q-vfx-phce-IgA 0-50 10 gram (Gammagard S-D (IgA < 1 mcg/mL)) 70 grams IV DAILY 2 days magnesium oxide 400 mg PO BID miscellaneous medical supply 1 ea miscellaneous DAILY potassium chloride ER (Klor-Con M) 20 mEq PO TID prednisone 10 mg PO Q OTHER DAY tamoxifen 20 mg PO DAILY Tobacco use date assessed: 04/04/23 Fall risk assessment: 1 Fall in past year Last assessed Fall Risk: 04/04/23 Dental Screening Dental Screen Date: 04/04/23 Did you have a dental visit in the last 12 months?: Yes Did you have a dental problem in the last 6 months where you did not have access to dental care?: No Was dental information given to patient?: Patient has dentist HPI f/u HTN HPI Details 68-year-old female presents to the office to discuss her medical condition. I am assuming her care as her previous primary care provider has left the practice. Patient has history of active dermatomyositis. 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 Patient also sees an oncologist for the breast cancer. She has had right lumpectomy followed by chemotherapy for 18 months and radiation for 6 weeks. 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 Recently she was having symptoms of cough and congestion. Patient had an x-ray and blood work done and she would like to know the results. [facility] Medical History Nocturnal cough History of right breast cancer CHF (congestive heart failure) Pleural effusion Axillary adenopathy Bacteremia due to Klebsiella pneumoniae SIRS (systemic inflammatory response syndrome) Acute hypokalemia UTI (urinary tract infection) Abdominal pain Anemia Atrial arrhythmia Acute on chronic heart failure with preserved ejection fraction (HFpEF) Acute diastolic (congestive) heart failure Pancytopenia Diarrhea Pancolitis Colitis Nonsustained supraventricular tachycardia Port-A-Cath in place Pain in both feet Pedal edema History of COVID-19 Invasive ductal carcinoma of right breast Breast cancer, right Dermatomyositis Breast calcification, right Encounter to establish care Lumbar degenerative disc disease Hypertension Major depression, chronic Insomnia Anxiety Surgical History Hx of colonoscopy Status post right breast lumpectomy History of arthroscopic knee surgery History of hysterectomy History of section History of cholecystectomy History of gastric bypass History of fusion of cervical spine History of tonsillectomy Family History Mother No problems noted. Father Breast cancer Bone cancer Brother Substance use disorder Paternal Aunt Breast cancer Social History Household Members: Significant Other, Family and Children Housing: House Are you a primary care trainer to a significant other at home: No Do you presently have visiting nurse or other home services: Yes ([facility]) Alcohol intake: former Comment: Pedal Edema and pain- uses cane Patient Tobacco Use Status: Former Tobacco user Quit Date: 12 years ago Tobacco use type: Cigarette e-Cigarette/Vaping Use: Never Used Second Hand Smoke Exposure: No Advance Directives Date on File: 11/28/21 service: No Current occupational status: unemployed and retired Cognitive needs: No Hearing needs: No Vision needs: Yes (glasses) Female Reproductive History Menstrual Age of Menarche: 17 Questionnaire PHQ-9 Over the last 2 weeks, how often have you been bothered by any of the following problems? 1. Little interest or pleasure in doing things: not at all 2. Feeling down, depressed, or hopeless: not at all 3. Trouble falling or staying asleep, or sleeping too much: not at all 4. Feeling tired or having little energy: not at all 5. Poor appetite or overeating: not at all 6. Feeling bad about yourself - or that you are a failure or have let yourself or your family down: not at all 7. Trouble concentrating on things, such as reading the newspaper or watching television: not at all 8. Moving or speaking so slowly that other people could have noticed. Or the opposite - being so fidgety or restless that you have been moving around a lot more than usual: not at all 9. Thoughts that you would be better off or of hurting yourself in some way: not at all Total score: 0 Depression Screening Interpretation: Negative Depression Screening Done: Yes Source: Developed by Drs. Billy Delarosa, Keara Painter, Navdeep Vargas and colleagues, with an educational julissa from [employer]. Thrive Questionnaire Date Thrive assessed: 04/04/23 I am a: Patient What is your living situation today?: I have a steady place to live Within the past 12 months, did the food you bought not last and you didn't have the money to get more?: Never true Within the past 12 months, did you worry whether your food would run out before you got money to buy more?: Never true Do you have trouble paying for medicines?: No Do you have trouble getting transportation to medical appointments?: No Do you have trouble paying your heating and electricity bill?: No Do you have trouble taking care of your child, family member or friend?: No Do you have trouble with day-to-day activities such as bathing, preparing meals, shopping, managing finances, etc.?: No Are you currently unemployed and looking for a job?: No Are you interested in more education?: No Currently or been in a relationship where the following occur: no concerns reported THRIVE Score: 0 AUDIT C Alcohol Use Questionnaire (AUDIT-C) 1. How often do you have a drink containing alcohol?: Never Total Score: 0 GATO-7 AMB Questionnaire GATO-7 Date GATO - 7 assessed: 04/04/23 Feeling nervous, anxious, or on edge: 0 = Not at all Not being able to stop or control worryin = Not at all Worrying too much about different things: 0 = Not at all Trouble relaxin = Not at all Being so restless that it is hard to sit still: 0 = Not at all Becoming easily annoyed or irritable: 0 = Not at all Feeling afraid as if something awful might happen: 0 = Not at all Total GATO-7 score (0-4 normal; 5-9 mild; 10-14 moderate; 15-21 severe): 0 Source: Developed by Drs. Billy Delarosa, Keara Painter, Navdeep Vargas and colleagues, with an educational julissa from [employer]. Physical exam (Primary Care) Vital Signs: Last Vital Signs Pulse 65 04/04/23 13:00 BP 110/60 04/04/23 13:00 Pulse Ox 98 04/04/23 13:00 Oxygen Delivery Method Room Air 04/04/23 13:00 Care Plan Goal for BP management: Blood pressure is in range. On no medications. BMI result Body Mass Index 27.1 Tobacco/Smoking Status: Tobacco use Status Tobacco use date assessed 04/04/23 04/04/23 13:02 Patient Tobacco Use Status Former Tobacco user 04/04/23 13:02 Tobacco use type Cigarette 04/04/23 13:02 e-Cigarette/Vaping Use Never Used 04/04/23 13:02 PHQ-9: PHQ-9 Score PHQ-9: Total score 0 04/04/23 13:09 Depression Screening Interpretation: Negative Thrive Assessment: Date of Thrive Assessment Date Thrive assessed 04/04/23 04/04/23 13:02 Currently or been in a relationship where the following occur: no concerns reported Advance Care Planning discussion: Exists, not on file Forms completed: Health Care Proxy Time spent: 1-15 minutes, not on file Actual minutes spent: 5 Const General: cooperative and healthy appearing Nutritional Appearance: well nourished Orientation/consciousness: patient oriented x3 Limitations: no limitations HENMT Head: Yes normal to inspection Eyes General: appearance normal, both eyes and all related structures Neck Neck: Yes normal visual inspection Chest Chest palpation & inspection: normal palpation of entire chest wall Resp Effort & Inspection: normal respiratory effort Neuro General: patient oriented x3 Office Procedures Flu Questionnaire Does the patient have a severe egg allergy?: No Does the patient have severe life threatening allergies?: No Does the patient have a fever or illness today?: No Has the patient ever had Guillain-Lyons Syndrome?: No Has the patient ever had any past reaction to a flu shot?: No Immunizations flu vacc [id number] 6mos up(PF) 60 mcg(15 mcgx4)/0.5 mL IM syringe Performing Provider: Gerald Vance MD [facility] Administered by: TISHA Varela on 04/04/23 13:09 Dose Route Admin Location Dispensed Lot Number Expiration Date NDC Bottle [employer] Quality Control Technician 0.5 mL IM Left Deltoid 0.5 mL [id number] 09/08/23 93623-903-99 [employer] VIS Given Date VIS Provided VIS Publication Date 04/04/23 Single Vaccine 20 Eligibility Eligibility Date Funding Source Not [facility] Eligible 04/04/23 Private Assessment and Plan Assessment & Plan (1) CHF (congestive heart failure): Code(s): I50.9 - Heart failure, unspecified Plan: Chest x-ray reviewed. Increased vascular congestion markings. No changes in medication made. If cough symptoms worsen, a diuretic will be added. (2) Acute on chronic heart failure with preserved ejection fraction (HFpEF): Code(s): I50.33 - Acute on chronic diastolic (congestive) heart failure Plan: As above. 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 Continue current medications. (4) Dermatomyositis: Comment: on skin biopsy 07/2021 - Dr Krishna 08/10/2021 prednisone started. azathioprine added OSIRIS 1:80, CPK 991, marked proximal muscle weakness, CLARK neg, anti-SRP negative; aldolase WNL Associated breast cancer found 11/2021: Azathioprine stopped due to chemoRx 11/2021: flare of skin rash with taper of prednisone to 30mg 12/2021: monthly IV IVIG started 02/2022: prednisone stopped Prednisone restarted on every other day basis because of recurrence of skin rash Code(s): M33.90 - Dermatopolymyositis, unspecified, organ involvement unspecified Plan: Blood work reviewed CK levels in range. Continue current dosage of prednisone. 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
[2023-04-04 13:00] VITALS: BP 110/60; PULSE 65; O2SAT 98; BMI 27.1
== END 2023-04-04 13:35 | disposition home or self-care (01) ==
PROVIDERS: PCP Internal Medicine; Visit Provider Internal Medicine
DX: Z23 Encounter for immunization (principal); I50.33 Acute on chronic diastolic (congestive) heart failure; M33.90 Dermatopolymyositis, unspecified, organ involvement unspecified; C50.911 Malignant neoplasm of unspecified site of right female breast
CPT/HCPCS: 1124F; 90471; 90686; 99214

== ENCOUNTER 2023-05-07 08:04 | Outpatient (REF) | payer MEDICARE, SELFPAY ==
[2023-05-07] VITALS (14 sets, daily range): BP systolic 105–135; BP diastolic 34–60; PULSE 52–67; RESP 16–18; TEMP 36.9; O2SAT 97–100; BMI 25.7
[2023-05-07] MEDS: Immun Glob G(IgG)/Gly/IGA Ov50 300 ML IV ×2 (09:15→10:30)
[2023-05-07] MEDS: Immun Glob G(IgG)/Gly/IGA Ov50 100 ML IV (14:05)
== END 2023-05-07 08:05 | disposition home or self-care (01) ==
LOC: HO.MDS 08:04
PROVIDERS: Visit Provider Internal Medicine Rheumatology
DX: M33.90 Dermatopolymyositis, unspecified, organ involvement unspecified (principal)
CPT/HCPCS: 96365; 96366; J1569; J1642

== ENCOUNTER 2023-05-08 08:08 | Outpatient (REF) | payer MEDICARE, SELFPAY ==
[2023-05-08] VITALS (12 sets, daily range): BP systolic 106–134; BP diastolic 52–69; PULSE 56–87; RESP 18; TEMP 37.1; O2SAT 98–99; BMI 26.2
[2023-05-08] MEDS: Immun Glob G(IgG)/Gly/IGA Ov50 100 ML IV (08:50)
[2023-05-08] MEDS: Immun Glob G(IgG)/Gly/IGA Ov50 300 ML IV ×2 (10:10→12:14)
== END 2023-05-08 08:09 | disposition home or self-care (01) ==
LOC: HO.MDS 08:08
PROVIDERS: Visit Provider Internal Medicine Rheumatology
DX: M33.90 Dermatopolymyositis, unspecified, organ involvement unspecified (principal)
CPT/HCPCS: 96365; 96366; J1569; J1642

== ENCOUNTER 2023-06-03 15:27 | Outpatient (AMB) | payer MEDICARE, SELFPAY ==
[2023-06-03 15:35] VITALS: BP 150/70; PULSE 76; TEMP 36.8; O2SAT 100; BMI 27.3
--- NOTE | 2023-06-03 15:35 | AM.OFFWIN_ITS ---
Intake Vital Signs 06/03/23 15:35 Height 5 ft 3 in Weight 154 lb 6 oz BMI 27.3 BP 150/70 H Blood Pressure Location Lt brachial Position Sitting Pulse 76 Pulse Source Pulse Oximeter Temp 98.3 F Temp Source Oral Pulse Oximetry (%) 100 Oxygen Delivery Method Room Air Intake Visit Reasons: EP RT leg numbness Intake Note: Pt presents to the office today for right leg numbness. Pt states this started years ago and she was told it was a pinched nerve in her back but recently it has become numb from the hip down and her toes are getting numb as well. Patient Tobacco Use Status: Former Tobacco user Quit Date: 12 years ago Allergies No Known Allergies Allergy (Verified 06/03/23 15:38) HPI HPI Comments History of Present Illness Details Patient presents to the walk-in today for sick visit Complaining of right lower extremity numbness. She states this started in 2018 but was from the knee down now she reports that it is from the right hip down to the toes. She reports minimal right lower back tenderness at L4/L5/S1 She denies red flag symptoms including new loss of bowel, bladder or saddle anesthesia. She does endorse at times that she will not make it to the bathroom, she attributes this to being on Lasix and having medications for cancer that cause her to have chronic diarrhea. She has sensation but will often lose her bowel/bladder en route to the bathroom. She denies any new back injury, did have surgery for pinched nerve in the right lower back in 2005. The numbness to her leg did not start until years after the surgery Gabapentin was prescribed in the past, this did not help the numbness. She stopped taking it. [facility] Medical History Nocturnal cough History of right breast cancer CHF (congestive heart failure) Pleural effusion Axillary adenopathy Bacteremia due to Klebsiella pneumoniae SIRS (systemic inflammatory response syndrome) Acute hypokalemia UTI (urinary tract infection) Abdominal pain Anemia Atrial arrhythmia Acute on chronic heart failure with preserved ejection fraction (HFpEF) Acute diastolic (congestive) heart failure Pancytopenia Diarrhea Pancolitis Colitis Nonsustained supraventricular tachycardia Port-A-Cath in place Pain in both feet Pedal edema History of COVID-19 Invasive ductal carcinoma of right breast Breast cancer, right Dermatomyositis Breast calcification, right Encounter to establish care Lumbar degenerative disc disease Hypertension Major depression, chronic Insomnia Anxiety Surgical History Hx of colonoscopy Status post right breast lumpectomy History of arthroscopic knee surgery History of hysterectomy History of section History of cholecystectomy History of gastric bypass History of fusion of cervical spine History of tonsillectomy Family History Mother No problems noted. Father Breast cancer Bone cancer Brother Substance use disorder Paternal Aunt Breast cancer Social History Household Members: Significant Other, Family and Children Housing: House Are you a primary child adolescent care to a significant other at home: No Do you presently have visiting nurse or other home services: Yes ([facility]) Alcohol intake: former Comment: Pedal Edema and pain- uses cane Patient Tobacco Use Status: Former Tobacco user Quit Date: 12 years ago Tobacco use type: Cigarette e-Cigarette/Vaping Use: Never Used Second Hand Smoke Exposure: No Advance Directives Date on File: 11/28/21 service: No Current occupational status: unemployed and retired Cognitive needs: No Hearing needs: No Vision needs: Yes (glasses) Female Reproductive History Menstrual Age of Menarche: 17 Review of Systems Const All systems reviewed & are unremarkable except as noted in HPI and below Physical Exam Vital Signs: Last Vital Signs Temp 98.3 F 06/03/23 15:35 Pulse 76 06/03/23 15:35 BP 150/70 H 06/03/23 15:35 Pulse Ox 100 06/03/23 15:35 Oxygen Delivery Method Room Air 06/03/23 15:35 BMI result Body Mass Index 27.3 General: awake, alert, oriented. Answers questions appropriately. Fully engaged in examination. Skin: warm, dry, intact HEENT: Normocephalic. Hearing intact. Cardiac: External chest normal in appearance. Respiratory: No cough, audible wheezing or stridor. Abdomen: without gross distension. MS: No obvious swelling or deformities. Able to transition from sit to stand unassisted. Decreased light touch sensation, unable to discern 2 point discrimination to 4cm dorsal aspect right foot Minimally tender over right L4-L5-S1 vertebrae. SLR with dorsiflexion negative bilaterally Neurological: Oriented to person, place, time and situation. Thought process intact. Psychiatric: Appropriate mood and affect. Good judgment and insight. Assessment & Plan Assessment & Plan (1) Neuropathy: Comment: Right lower extremity Code(s): G62.9 - Polyneuropathy, unspecified Plan Patient presented to the walk-in today for worsening right lower extremity neuropathy No red flag symptoms Message was sent to PCP requesting repeat EMG or sooner follow-up visit for the patient Reassurance provided to the patient. History, physical exam provocative testing most consistent with worsening neuropathy in the setting of post laminectomy syndrome. Follow-up with PCP or return here for any new or worsening symptoms Red flag symptoms discussed with patient including when to seek treatment in the emergency room All questions and concerns were answered, patient agrees with the plan Coding Level of Care Code Est Pt Level 3 (53040) Diagnoses Neuropathy G62.9
== END 2023-06-03 17:00 | disposition home or self-care (01) ==
PROVIDERS: PCP Internal Medicine; Visit Provider Registered Nurse Emergency
DX: G62.9 Polyneuropathy, unspecified (principal)
CPT/HCPCS: 99213

== ENCOUNTER 2023-06-04 10:52 | Outpatient (REF) | payer MEDICARE, SELFPAY ==
[2023-06-04] VITALS (10 sets, daily range): BP systolic 117–141; BP diastolic 45–67; PULSE 61–89; RESP 16–18; TEMP 36.8; O2SAT 96
[2023-06-04] MEDS: Immun Glob G(IgG)/Gly/IGA Ov50 100 ML IV (11:25)
== END 2023-06-04 10:53 | disposition home or self-care (01) ==
LOC: HO.MDS 10:52
PROVIDERS: Visit Provider Internal Medicine Rheumatology
DX: M33.90 Dermatopolymyositis, unspecified, organ involvement unspecified (principal)
CPT/HCPCS: 96365; 96366; J1569; J1642

== ENCOUNTER 2023-06-05 07:41 | Outpatient (REF) | payer MEDICARE, SELFPAY ==
[2023-06-05] VITALS (12 sets, daily range): BP systolic 117–178; BP diastolic 41–85; PULSE 66–82; RESP 18; TEMP 37.2; O2SAT 98; BMI 27.3
[2023-06-05] MEDS: Immun Glob G(IgG)/Gly/IGA Ov50 100 ML IV (08:00)
[2023-06-05] MEDS: Immun Glob G(IgG)/Gly/IGA Ov50 300 ML IV ×2 (09:11→11:14)
== END 2023-06-05 07:42 | disposition home or self-care (01) ==
LOC: HO.MDS 07:41
PROVIDERS: Visit Provider Internal Medicine Rheumatology
DX: M33.90 Dermatopolymyositis, unspecified, organ involvement unspecified (principal)
CPT/HCPCS: 96365; 96366; J1569; J1642

== ENCOUNTER 2023-07-09 13:03 | Outpatient (AMB) | payer MEDICARE, SELFPAY ==
[2023-07-09 13:11] VITALS: BP 128/60; PULSE 64; O2SAT 94; BMI 27.1
--- NOTE | 2023-07-09 13:11 | A.OFFVIS_ITS ---
Vital Signs 07/09/23 13:11 Height 5 ft 3 in Weight 153 lb 3.54 oz BMI 27.1 BP 128/60 Blood Pressure Location Lt brachial Position Sitting Pulse 64 Pulse Source Pulse Oximeter Pulse Oximetry (%) 94 Oxygen Delivery Method Room Air Intake Visit Reasons: Pulmonary nodule Accounting Officer Required: No Allergies No Known Allergies Allergy (Verified 07/09/23 17:10) HPI Comments Details: The patient 67 year woman with right sided breast cancer. Started carboplatin/docetaxel/Herceptin/pertuzumab based chemotherapy x 15 cycles and now onHerceptin and pertuzumab maintenance. Patient follow-up adverse effects from the chemotherapy developing chemo related dermatomyositis, then UTI. She went to [place] in March 2022 and developed a left sided pneumonia and a small to moderate pleural effusion. She had a repeat CT chest 06/2022 with a residual effusion. Too small to tap. She has been having worsening LE edema. Actually gained 16lbs while visiting in [place]. Now on lasix 40mg daily. ECHO with normal EF, but, grade 2 diastolic dysfunction. 01/01/2023 the patient is here for a pulmonary follow-up visit. The patient now is feeling better. She lost a lot a weight partly because of the chemotherapy. Although now she is feeling better and she has having some hair grow back. She is also on the prednisone for the amount of myositis she takes that every other day. For respiratory status the patient is doing well. She does have the diuretic. The patient was able to decrease the diuresis since she is doing better. She is going to be monitoring her weights closely in addition to her lower extremity edema. She is going to follow the recommendations from Cardiology. Her last chest x-ray was done October 2022 with evidence of pulmonary vascular congestion but no pleural effusions. Will plan to repeat the x-ray in May or June when she comes back for follow-up. If the patient has any worsening symptoms prior to that she can always call us and have the x-ray done earlier. 07/09/2023 the patient is here for pulmonary follow-up visit. Overall she is doing very well from a respiratory status. The patient has been on the IVIG infusions in the appeared to be very affecting beneficial. She has no longer on prednisone. Her strength is coming back and now she is actually working. She continues diuresis. She is monitoring her weight. She is having right now some right flank discomfort and she is going to be seeing her primary care regarding the discomfort at this time. In the meantime the patient did have a chest x-ray which I personally reviewed from March 2023 without any evidence of any pleural effusions. She did have some minimal vascular congestion but nothing significant. Clinically the patient is doing well respiratory exam is reassuring. Will plan to follow-up in a year's time with a chest x-ray. If the patient develops any worsening symptoms prior to that she will call for an earlier assessment. [facility] Medical History Nocturnal cough History of right breast cancer CHF (congestive heart failure) Pleural effusion Axillary adenopathy Bacteremia due to Klebsiella pneumoniae SIRS (systemic inflammatory response syndrome) Acute hypokalemia UTI (urinary tract infection) Abdominal pain Anemia Atrial arrhythmia Acute on chronic heart failure with preserved ejection fraction (HFpEF) Acute diastolic (congestive) heart failure Pancytopenia Diarrhea Pancolitis Colitis Nonsustained supraventricular tachycardia Port-A-Cath in place Pain in both feet Pedal edema History of COVID-19 Invasive ductal carcinoma of right breast Breast cancer, right Dermatomyositis Breast calcification, right Encounter to establish care Lumbar degenerative disc disease Hypertension Major depression, chronic Insomnia Anxiety Surgical History Hx of colonoscopy Status post right breast lumpectomy History of arthroscopic knee surgery History of hysterectomy History of section History of cholecystectomy History of gastric bypass History of fusion of cervical spine History of tonsillectomy Family History Mother No problems noted. Father Breast cancer Bone cancer Brother Substance use disorder Paternal Aunt Breast cancer Social History Household Members: Significant Other, Family and Children Housing: House Are you a primary inpatient care manager rn to a significant other at home: No Do you presently have visiting nurse or other home services: Yes ([facility]) Alcohol intake: former Comment: Pedal Edema and pain- uses cane Patient Tobacco Use Status: Former Tobacco user Quit Date: 12 years ago Tobacco use type: Cigarette e-Cigarette/Vaping Use: Never Used Second Hand Smoke Exposure: Yes Advance Directives Date on File: 11/28/21 service: No Current occupational status: unemployed and retired Cognitive needs: No Hearing needs: No Vision needs: Yes (glasses) Female Reproductive History Menstrual Age of Menarche: 17 Review of Systems Const Denies chills, Denies fatigue, Denies fever(s), Denies frequent falls, Denies weakness, Denies weight gain and Denies weight loss ENT Denies dizziness Card Denies chest pain, Denies leg edema, Denies lightheadedness, Denies palpitations, Denies dyspnea, Denies dyspnea on exertion, Denies orthopnea and Denies other (loss of consciousness) Resp Reports cough, Denies dyspnea and Denies dyspnea on exertion GI Denies hematochezia and Denies change in stool character Musc Denies abnormal gait, Denies muscle weakness, Denies numbness, Denies radiating pain into limb and Denies tingling Neuro Denies abnormal gait, Denies dizziness, Denies frequent falls, Denies numbness, Denies tingling and Denies weakness Endo Denies fatigue and Denies palpitations Physical Exam Vital Signs: Last Vital Signs Pulse 64 07/09/23 13:11 BP 128/60 07/09/23 13:11 Pulse Ox 94 07/09/23 13:11 Oxygen Delivery Method Room Air 07/09/23 13:11 BMI result Body Mass Index 27.1 Const General: cooperative, comfortable, no acute distress, alert and awake Nutritional Appearance: obese Limitations: ambulation with cane Neck Neck: Yes trachea midline, Yes supple and Yes no JVD Resp Effort & Inspection: normal respiratory effort Auscultation: diminished lung sounds Cardio Jugular venous distension: no JVD Palpation: normal PMI Rate: regular rate Rhythm: regular rhythm Heart sounds: S1 normal heart sound present, S2 normal heart sound present, no click, no gallops and no murmurs GI Auscultation: normal bowel sounds Neuro General: no focal motor deficits Extrem General: Yes no clubbing, cyanosis or edema Results AMB Urinalysis, Automated UA Leukoctes 0 Merari/uL Last Edit by TISHA Hicks on 07/09/23 14:06 UA Nitrite Negative Last Edit by TISHA Hicks on 07/09/23 14:06 UA Urobilinogen 2 mg/dL Last Edit by TISHA Hicks on 07/09/23 14:06 UA Protein 1 mg/dL Last Edit by Bradley Padillarolando, RMA on 07/09/23 14:06 UA pH 6.0 Last Edit by Bradley Acosta, RMA on 07/09/23 14:06 UA Blood 0 Demetrius/uL Last Edit by Bradley Acosta, RMA on 07/09/23 14:06 UA Specific [place] 1.025 Last Edit by Rodtha Padillarolando, RMA on 07/09/23 14: 06 UA Ketone Negative Last Edit by Nicolajordanalouann Valerierolando, RMA on 07/09/23 14:06 UA Bilirubin 0 mg/dL Last Edit by Rodtha Acosta, RMA on 07/09/23 14:06 UA Glucose 0 mg/dL Last Edit by Bradley Acosta, RMA on 07/09/23 14:06 Assessment & Plan Assessment & Plan (1) Pleural effusion: Code(s): J90 - Pleural effusion, not elsewhere classified Category: Medical (2) 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 azathioprine added OSIRIS 1:80, CPK 991, marked proximal muscle weakness, CLARK neg, anti-SRP negative; aldolase WNL Associated breast cancer found 11/2021: Azathioprine stopped due to chemoRx 11/2021: flare of skin rash with taper of prednisone to 30mg 12/2021: monthly IV IVIG started 02/2022: prednisone stopped Prednisone restarted on every other day basis because of recurrence of skin rash Code(s): M33.90 - Dermatopolymyositis, unspecified, organ involvement unspecified Category: Medical (4) Acute on chronic heart failure with preserved ejection fraction (HFpEF): Code(s): I50.33 - Acute on chronic diastolic (congestive) heart failure Category: Medical Plan Diuresis as tolerated CXR IVIG F/U 12 months Coding Level of Care Code Est Pt Level 4 (32402) Diagnoses Pleural effusion J90 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
== END 2023-07-09 13:23 | disposition home or self-care (01) ==
PROVIDERS: PCP Nurse Practitioner Family; Visit Provider Hospitalist
DX: J90 Pleural effusion, not elsewhere classified (principal); C50.919 Malignant neoplasm of unspecified site of unspecified female breast; M33.90 Dermatopolymyositis, unspecified, organ involvement unspecified; I50.33 Acute on chronic diastolic (congestive) heart failure
CPT/HCPCS: 99214

== ENCOUNTER → 2023-07-09 13:03 | Outpatient (BNVA) | payer MEDICARE, SELFPAY | PROVIDERS: PCP Nurse Practitioner Family; Visit Provider Hospitalist | DX: M33.90 Dermatopolymyositis, unspecified, organ involvement unspecified (principal); C50.919 Malignant neoplasm of unspecified site of unspecified female breast; I50.33 Acute on chronic diastolic (congestive) heart failure; J90 Pleural effusion, not elsewhere classified | CPT/HCPCS: 99212 ==

== ENCOUNTER 2023-07-09 13:27 | Outpatient (AMB) | payer MEDICARE, SELFPAY ==
--- NOTE | 2023-07-09 13:30 | MHC.PC.OV ---
Vital Signs 07/09/23 13:32 Height 5 ft 3 in Weight 152 lb 2 oz BMI 26.9 BP 100/60 Blood Pressure Location Lt brachial Position Sitting Pulse 61 Pulse Source Pulse Oximeter Pulse Oximetry (%) 98 Oxygen Delivery Method Room Air Intake Visit Reasons: follow up Intake Note: Patient is here to follow up on Neuropathy, CHF, HTN. Complaint of right lower back pain with orange color urine in the morning. Legal Contracts Specialist Required: No Surgical Assistant: Not Required per policy Accompanied by: Self / Same As Patient Allergies No Known Allergies Allergy (Verified 07/09/23 17:10) Tobacco use date assessed: 07/09/23 Fall risk assessment: No Falls in past year Last assessed Fall Risk: 07/09/23 Dental Screening Dental Screen Date: 04/04/23 HPI follow up HPI Details 68-year-old female presents to the office to discuss her medical condition. Patient is complaining of low back pain for the past month. Does not recall any fall or injury. No burning on urination. She also has pain and numbness in the right leg for a while. Has used gabapentin in the past with minimal relief. She stopped taking gabapentin a year ago. Able to walk and do all activities of daily living. [facility] Medical History Nocturnal cough History of right breast cancer CHF (congestive heart failure) Pleural effusion Axillary adenopathy Bacteremia due to Klebsiella pneumoniae SIRS (systemic inflammatory response syndrome) Acute hypokalemia UTI (urinary tract infection) Abdominal pain Anemia Atrial arrhythmia Acute on chronic heart failure with preserved ejection fraction (HFpEF) Acute diastolic (congestive) heart failure Pancytopenia Diarrhea Pancolitis Colitis Nonsustained supraventricular tachycardia Port-A-Cath in place Pain in both feet Pedal edema History of COVID-19 Invasive ductal carcinoma of right breast Breast cancer, right Dermatomyositis Breast calcification, right Encounter to establish care Lumbar degenerative disc disease Hypertension Major depression, chronic Insomnia Anxiety Surgical History Hx of colonoscopy Status post right breast lumpectomy History of arthroscopic knee surgery History of hysterectomy History of section History of cholecystectomy History of gastric bypass History of fusion of cervical spine History of tonsillectomy Family History Mother No problems noted. Father Breast cancer Bone cancer Brother Substance use disorder Paternal Aunt Breast cancer Social History Household Members: Significant Other, Family and Children Housing: House Are you a primary anesthesiologist and critical care to a significant other at home: No Do you presently have visiting nurse or other home services: Yes ([facility]) Alcohol intake: former Comment: Pedal Edema and pain- uses cane Patient Tobacco Use Status: Former Tobacco user Quit Date: 12 years ago Tobacco use type: Cigarette e-Cigarette/Vaping Use: Never Used Second Hand Smoke Exposure: Yes Advance Directives Date on File: 11/28/21 service: No Current occupational status: unemployed and retired Cognitive needs: No Hearing needs: No Vision needs: Yes (glasses) Female Reproductive History Menstrual Age of Menarche: 17 Questionnaire Thrive Questionnaire Date Thrive assessed: 04/04/23 GATO-7 AMB Questionnaire GATO-7 Date GATO - 7 assessed: 04/04/23 Source: Developed by Drs. Billy Delarosa, Keara Painter, Navdeep Vargas and colleagues, with an educational julissa from [employer]. Physical exam (Primary Care) Vital Signs: Last Vital Signs Pulse 61 07/09/23 13:32 BP 100/60 07/09/23 13:32 Pulse Ox 98 07/09/23 13:32 Oxygen Delivery Method Room Air 07/09/23 13:32 BMI result Body Mass Index 26.9 Tobacco/Smoking Status: Tobacco use Status Tobacco use date assessed 07/09/23 07/09/23 13:40 Patient Tobacco Use Status Former Tobacco user 07/09/23 13:40 Tobacco use type Cigarette 07/09/23 13:40 e-Cigarette/Vaping Use Never Used 07/09/23 13:40 Thrive Assessment: Date of Thrive Assessment Date Thrive assessed 04/04/23 07/09/23 13:40 Const General: cooperative and healthy appearing Nutritional Appearance: well nourished Orientation/consciousness: patient oriented x3 Limitations: no limitations HENMT Head: Yes normal to inspection Eyes General: appearance normal, both eyes and all related structures Neck Neck: Yes normal visual inspection Chest Chest palpation & inspection: normal palpation of entire chest wall Resp Effort & Inspection: normal respiratory effort Neuro General: patient oriented x3 Results AMB Urinalysis, Automated UA Leukoctes 0 Merari/uL Last Edit by Bradley Acosta A on 07/09/23 14:06 UA Nitrite Negative Last Edit by Bradley Acosta A on 07/09/23 14:06 UA Urobilinogen 2 mg/dL Last Edit by Bradley Acosta, A on 07/09/23 14:06 UA Protein 1 mg/dL Last Edit by Bradley Acosta A on 07/09/23 14:06 UA pH 6.0 Last Edit by Bradley Acosta A on 07/09/23 14:06 UA Blood 0 Demetrius/uL Last Edit by Bradley Acosta [facility] on 07/09/23 14:06 UA Specific [place] 1.025 Last Edit by Bradley Acosta A on 07/09/23 14:06 UA Ketone Negative Last Edit by Bradley Acosta [facility] on 07/09/23 14:06 UA Bilirubin 0 mg/dL Last Edit by Bradley Acosta A on 07/09/23 14:06 UA Glucose 0 mg/dL Last Edit by Bradley Acosta A on 07/09/23 14:06 Assessment and Plan Assessment & Plan (1) Low back pain: Code(s): M54.50 - Low back pain, unspecified Plan: Mostly muscular in etiology. Meloxicam called in. Orders: Orders AMB Urinalysis Automated Today Z13.9 - Encounter for screening, unspecified Coding Level of Care Code Est Pt Level 3 (35927) Diagnoses Low back pain M54.50
[2023-07-09 13:32] VITALS: BP 100/60; PULSE 61; O2SAT 98; BMI 26.9
== END 2023-07-09 16:48 | disposition home or self-care (01) ==
PROVIDERS: PCP Internal Medicine; Visit Provider Internal Medicine
DX: M54.50 Low back pain, unspecified (principal); R82.998 Other abnormal findings in urine
CPT/HCPCS: 81003; 99213

== ENCOUNTER 2023-07-29 14:50 | Outpatient (AMB) | payer MEDICARE, SELFPAY ==
--- NOTE | 2023-07-29 15:01 | MHC.OFFVIS ---
Vital Signs 07/29/23 15:06 Height 5 ft 3 in Weight 154 lb BMI 27.3 BP 125/58 L Blood Pressure Location Rt brachial Position Sitting Pulse 79 Intake Visit Reasons: Breast Exam, 6 month follow up Intake Note: This patient presents for a six month follow-up breast examination. Patient c/o; reports no breast complaints at this time, pt reports she completed her chemotherapy treatments. Media Executive Required: No Accompanied by: Self / Same As Patient Allergies No Known Allergies Allergy (Verified 07/29/23 15:06) Medication List - Last Reconciled 07/29/23 by Domo Palacios MD alendronate 70 mg PO QWEEK azathioprine mg PO betamethasone dipropionate 0.05% apply to scalp lesions 1-2 times daily; calcium carbonate-vitamin D3 600 mg-10 mcg (400 unit) 1 tab PO DAILY cholecalciferol (vitamin D3) 25 mcg PO BEDTIME clonidine HCl 0.2 mg PO BEDTIME cyanocobalamin (vitamin B-12) 1,000 mcg PO BEDTIME cyclobenzaprine 10 mg PO BEDTIME digoxin 0.25 mg PO DAILY duloxetine (Cymbalta) 60 mg PO DAILY furosemide 40 mg PO DIRECTED 90 days furosemide mg PO hydrocortisone 1% (Anti-Itch (hydrocortisone)) 1 appl topical DAILY hydroxyzine HCl 25 mg PO BEDTIME PRN immun glob S-cbu-jugv-IgA 0-50 10 gram (Gammagard S-D (IgA < 1 mcg/mL)) 70 grams IV DAILY 2 days magnesium oxide 400 mg PO BID miscellaneous medical supply 1 ea miscellaneous DAILY potassium chloride ER (Klor-Con M) 20 mEq PO TID tamoxifen 20 mg PO DAILY HPI HPI Breast Exam, 6 month follow up: Details: She is here for follow-up for her right breast cancer, invasive ductal, and she had undergone lumpectomy and sentinel biopsy last October 2021. She had a T1 N1 lesion at that time. She had undergone chemotherapy with Dr. Hernández and was on THCP regimen She says she has she feels well overall. She is being followed by Dr. Hernández. She denies any palpable breast masses. Her last mammogram was in 2022 and findings were benign. 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 COUNTS INCLUDE 234 BEDS AT THE [facility] Medical History Nocturnal cough History of right breast cancer CHF (congestive heart failure) Pleural effusion Axillary adenopathy Bacteremia due to Klebsiella pneumoniae SIRS (systemic inflammatory response syndrome) Acute hypokalemia UTI (urinary tract infection) Abdominal pain Anemia Atrial arrhythmia Acute on chronic heart failure with preserved ejection fraction (HFpEF) Acute diastolic (congestive) heart failure Pancytopenia Diarrhea Pancolitis Colitis Nonsustained supraventricular tachycardia Port-A-Cath in place Pain in both feet Pedal edema History of COVID-19 Invasive ductal carcinoma of right breast Breast cancer, right Dermatomyositis Breast calcification, right Encounter to establish care Lumbar degenerative disc disease Hypertension Major depression, chronic Insomnia Anxiety Surgical History Hx of colonoscopy Status post right breast lumpectomy History of arthroscopic knee surgery History of hysterectomy History of section History of cholecystectomy History of gastric bypass History of fusion of cervical spine History of tonsillectomy Family History Mother No problems noted. Father Breast cancer Bone cancer Brother Substance use disorder Paternal Aunt Breast cancer Social History Household Members: Significant Other, Family and Children Housing: House Are you a primary career services officer to a significant other at home: No Do you presently have visiting nurse or other home services: Yes ([facility]NA) Alcohol intake: former Comment: Pedal Edema and pain- uses cane Patient Tobacco Use Status: Former Tobacco user Quit Date: 12 years ago Tobacco use type: Cigarette e-Cigarette/Vaping Use: Never Used Second Hand Smoke Exposure: Yes Advance Directives Date on File: 11/28/21 service: No Current occupational status: unemployed and retired Cognitive needs: No Hearing needs: No Vision needs: Yes (glasses) Female Reproductive History Menstrual Age of Menarche: 17 Review of Systems Const Denies chills and Denies fever(s) Card Denies chest pain, Denies dyspnea and Denies dyspnea on exertion Resp Denies cough, Denies dyspnea and Denies dyspnea on exertion GI Denies hematochezia and Denies change in bowel habits Denies hematuria Musc Denies back pain and Denies limited range of motion Neuro Denies focal weakness and Denies convulsions Psych Denies depression and Denies mood swings Physical Exam Vital Signs: Last Vital Signs Pulse 79 07/29/23 15:06 BP 125/58 L 07/29/23 15:06 BMI result Body Mass Index 27.3 Const General: comfortable and no acute distress Orientation/consciousness: patient oriented x3 Neck Neck: Yes no lymphadenopathy Chest Other: No palpable breast masses, no axillary lymph nodes; surgical scar on the right breast Resp Auscultation: clear to auscultation bilaterally Cardio Rhythm: regular rhythm GI Palpation (GI): Soft to palpation, nontender and no guarding Neuro General: patient oriented x3 Assessment & Plan Assessment & Plan (1) History of right breast cancer: Code(s): Z85.3 - Personal history of malignant neoplasm of breast Category: Medical Plan: Status post lumpectomy, sentinel biopsy for a T1 N1 invasive ductal carcinoma. She is doing very well. She is completed chemotherapy and radiation. Her last mammogram in February, was benign. She is to continue to follow-up with Dr. Hernández. She is currently on hormonal treatment as well. I reminded her to continue doing her yearly mammograms. I will see her again in the office next year. Coding Level of Care Code Est Pt Level 3 (47185) Diagnoses History of right breast cancer Z85.3
[2023-07-29 15:06] VITALS: BP 125/58; PULSE 79; BMI 27.3
== END 2023-07-29 15:28 | disposition home or self-care (01) ==
PROVIDERS: PCP Internal Medicine; Visit Provider Surgery
DX: Z85.3 Personal history of malignant neoplasm of breast (principal)
CPT/HCPCS: 99213

== ENCOUNTER → 2023-07-29 14:50 | Outpatient (BNVA) | payer MEDICARE, SELFPAY | PROVIDERS: PCP Internal Medicine; Visit Provider Surgery | DX: C50.911 Malignant neoplasm of unspecified site of right female breast (principal); Z92.21 Personal history of antineoplastic chemotherapy; Z79.810 Long term (current) use of selective estrogen receptor modulators (SERMs) | CPT/HCPCS: 99212 ==

== ENCOUNTER 2023-10-07 07:48 | Outpatient (REF) | payer MEDICARE, SELFPAY | END 2023-10-07 07:49 | disposition home or self-care (01) | LOC: HO.LAB 07:48 | PROVIDERS: Absent Provider Internal Medicine Medical Oncology; PCP Internal Medicine; Visit Provider Nurse Practitioner Family | DX: Z13.89 Encounter for screening for other disorder (principal) ==

== ENCOUNTER 2023-10-09 14:10 | Outpatient (AMB) | payer MEDICARE, SELFPAY ==
--- NOTE | 2023-10-09 14:38 | A.OFFPC_ITS ---
Vital Signs 10/09/23 14:42 Height 5 ft 3 in Weight 157 lb BMI 27.8 BP 120/62 Blood Pressure Location Lt brachial Position Sitting Pulse 67 Pulse Source Pulse Oximeter Pulse Oximetry (%) 97 Oxygen Delivery Method Room Air Intake Visit Reasons: 3mth f/u Intake Note: Patient is here to follow up on Neuropathy, CHF, HTN. Medical Assembly Required: No Social Services Manager: Not Required per policy Accompanied by: Self / Same As Patient Allergies No Known Allergies Allergy (Verified 10/18/23 15:01) Medication List - Last Reconciled 10/18/23 by Gerald Vance MD alendronate 70 mg PO QWEEK azathioprine mg PO betamethasone dipropionate 0.05% apply to scalp lesions 1-2 times daily; calcium carbonate-vitamin D3 600 mg-10 mcg (400 unit) 1 tab PO DAILY cholecalciferol (vitamin D3) 25 mcg PO BEDTIME clonidine HCl 0.2 mg PO BEDTIME cyanocobalamin (vitamin B-12) 1,000 mcg PO BEDTIME cyclobenzaprine 10 mg PO BEDTIME digoxin 0.25 mg PO DAILY duloxetine (Cymbalta) 60 mg PO DAILY furosemide 20 mg PO DAILY furosemide 20 mg PO DAILY furosemide 40 mg PO DIRECTED 90 days furosemide mg PO hydrocortisone 1% (Anti-Itch (hydrocortisone)) 1 appl topical DAILY hydroxyzine HCl 25 mg PO BEDTIME PRN immun glob S-spn-xmzc-IgA 0-50 10 gram (Gammagard S-D (IgA < 1 mcg/mL)) 70 grams IV DAILY 2 days magnesium oxide 400 mg PO BID miscellaneous medical supply 1 ea miscellaneous DAILY potassium chloride ER (Klor-Con M) 20 mEq PO TID tamoxifen 20 mg PO DAILY Tobacco use date assessed: 10/09/23 Fall risk assessment: No Falls in past year Last assessed Fall Risk: 10/09/23 Dental Screening Dental Screen Date: 04/04/23 HPI 3mth f/u HPI Details 68-year-old female presents to the offic e to discuss her chronic medical conditions. Patient is reporting symptoms of pain in the leg and difficulty getting up. She has fecal incontinence for the past 6 months. The symptoms happened 3 times a week. She uses a pad or diapers when she goes out of the house. Incontinence is due to liquid stool. Patient is seeing a freight air brake fitter and her oncologist for this condition. Depression symptoms are stable. Compliant with her medications. [facility] Medical History Nocturnal cough History of right breast cancer CHF (congestive heart failure) Pleural effusion Axillary adenopathy Bacteremia due to Klebsiella pneumoniae SIRS (systemic inflammatory response syndrome) Acute hypokalemia UTI (urinary tract infection) Abdominal pain Anemia Atrial arrhythmia Acute on chronic heart failure with preserved ejection fraction (HFpEF) Acute diastolic (congestive) heart failure Pancytopenia Diarrhea Pancolitis Colitis Nonsustained supraventricular tachycardia Port-A-Cath in place Pain in both feet Pedal edema History of COVID-19 Invasive ductal carcinoma of right breast Breast cancer, right Dermatomyositis Breast calcification, right Encounter to establish care Lumbar degenerative disc disease Hypertension Major depression, chronic Insomnia Anxiety Surgical History Hx of colonoscopy Status post right breast lumpectomy History of arthroscopic knee surgery History of hysterectomy History of section History of cholecystectomy History of gastric bypass History of fusion of cervical spine History of tonsillectomy Family History Mother No problems noted. Father Breast cancer Bone cancer Brother Substance use disorder Paternal Aunt Breast cancer Social History Household Members: Significant Other, Family and Children Housing: House Are you a primary director long term care to a significant other at home: No Do you presently have visiting nurse or other home services: Yes ([facility]) Alcohol intake: former Comment: Pedal Edema and pain- uses cane Patient Tobacco Use Status: Former Tobacco user Tobacco use type: Cigarette e-Cigarette/Vaping Use: Never Used Second Hand Smoke Exposure: Yes Advance Directives Date on File: 11/28/21 service: No Current occupational status: unemployed and retired Cognitive needs: No Hearing needs: No Vision needs: Yes (glasses) Female Reproductive History Menstrual Age of Menarche: 17 Questionnaire Thrive Questionnaire Date Thrive assessed: 04/04/23 GATO-7 AMB Questionnaire GATO-7 Date AGTO - 7 assessed: 04/04/23 Source: Developed by Drs. Billy Delarosa, Keara B.W. Navdeep Painter and colleagues, with an educational julissa from [employer]. Physical exam (Primary Care) Vital Signs: Last Vital Signs Pulse 67 10/09/23 14:42 BP 120/62 10/09/23 14:42 Pulse Ox 97 10/09/23 14:42 Oxygen Delivery Method Room Air 10/09/23 14:42 Care Plan Goal for BP management: Blood pressure is in range. Continue current medications. BMI result Body Mass Index 27.8 Tobacco/Smoking Status: Tobacco use Status Tobacco use date assessed 10/09/23 10/09/23 15:32 Patient Tobacco Use Status Former Tobacco user 10/09/23 15:32 Tobacco use type Cigarette 10/09/23 15:32 e-Cigarette/Vaping Use Never Used 10/09/23 15:32 Thrive Assessment: Date of Thrive Assessment Date Thrive assessed 04/04/23 10/09/23 15:32 Const General: cooperative and healthy appearing Nutritional Appearance: well nourished Orientation/consciousness: patient oriented x3 Limitations: no limitations HENMT Head: Yes normal to inspection Eyes General: appearance normal, both eyes and all related structures Neck Neck: Yes normal visual inspection Chest Chest palpation & inspection: normal palpation of entire chest wall Resp Effort & Inspection: normal respiratory effort Neuro General: patient oriented x3 Assessment and Plan Assessment & Plan (1) Hypertension: Code(s): I10 - Essential (primary) hypertension Plan: Blood pressure is in range. Continue medications at same dosage. (2) Major depression, chronic: Code(s): F32.9 - Major depressive disorder, single episode, unspecified Plan: Depression symptoms are stable. Continue the duloxetine. (3) Osteopenia: Comment: September 2021: Alendronate started because of need for high-dose prednisone Code(s): M85.80 - Other specified disorders of bone density and structure, unspecified site Qualifiers: Osteopenia location: multiple sites Qualified Code(s): M85.89 - Other specified disorders of bone density and structure, multiple sites Plan: Per the freight air brake fitter, alendronate has been started. (4) Invasive ductal carcinoma of right breast: Comment: micrometastestases in sentinel node; treated with lumpectomy and chemotherapy 2021 the Code(s): C50.911 - Malignant neoplasm of unspecified site of right female breast Plan: Condition being followed by the oncologist. She is going to call her to determine if the diarrhea symptoms are due to the leukopenia and the medications she is getting. (5) Dermatomyositis: Comment: on skin biopsy 07/2021 - Dr Krishna 08/10/2021 prednisone started. azathioprine added OSIRIS 1:80, CPK 991, marked proximal muscle weakness, CLARK neg, anti-SRP negative; aldolase WNL Associated breast cancer found 11/2021: Azathioprine stopped due to chemoRx 11/2021: flare of skin rash with taper of prednisone to 30mg 12/2021: monthly IV IVIG started 02/2022: prednisone stopped Prednisone restarted on every other day basis because of recurrence of skin rash Code(s): M33.90 - Dermatopolymyositis, unspecified, organ involvement unspecified Plan: Seeing freight air brake fitter for this condition. Coding Level of Care Code Est Pt Level 4 (64895) Complex EM visit Add On G2211 Diagnoses Hypertension I10 Major depression, chronic F32.9 Osteopenia of multiple sites M85.89 Osteopenia location: multiple sites Invasive ductal carcinoma of right breast C50.911 Dermatomyositis M33.90
[2023-10-09 14:42] VITALS: BP 120/62; PULSE 67; O2SAT 97; BMI 27.8
== END 2023-10-09 16:26 | disposition home or self-care (01) ==
PROVIDERS: PCP Nurse Practitioner Family; Visit Provider Internal Medicine
DX: I10 Essential (primary) hypertension (principal); F33.9 Major depressive disorder, recurrent, unspecified; M85.89 Other specified disorders of bone density and structure, multiple sites; C50.911 Malignant neoplasm of unspecified site of right female breast
CPT/HCPCS: 99214; G2211

== ENCOUNTER 2023-10-21 14:34 | Outpatient (AMB) | payer MEDICARE, SELFPAY ==
--- NOTE | 2023-10-21 14:36 | A.OFFVIS_ITS ---
Vital Signs 10/21/23 14:40 Height 5 ft 3 in Weight 157 lb 3.033 oz BMI 27.8 BP 120/60 Blood Pressure Location Lt brachial Position Sitting Pulse 74 Pulse Source Pulse Oximeter Pulse Oximetry (%) 100 Oxygen Delivery Method Room Air Intake Visit Reasons: dermatomyositis/cough Intake Note: Patient presents for dermatomyositis/cough. Allergies No Known Allergies Allergy (Verified 10/21/23 14:39) Medication List - Last Reconciled 10/21/23 by Tamiko Dior MD alendronate 70 mg PO QWEEK citalopram 40 mg (2 x 20 mg) PO DAILY clonidine HCl 0.2 mg PO BEDTIME digoxin 0.25 mg PO DAILY furosemide 20 mg PO DAILY furosemide 40 mg PO DIRECTED 90 days immun glob B-dgj-oifl-IgA 0-50 10 gram (Gammagard S-D (IgA < 1 mcg/mL)) 70 grams IV DAILY 2 days tamoxifen 20 mg PO DAILY HPI Comments Details: This is a 68-year-old female with dermatomyositis who presents for follow-up. She was last seen by Rheumatology 03/2023. She states that she has been off the prednisone for about 7 months now. She continues to take the azathioprine 50 mg daily and gets regular IVIG infusions.. She states that her muscle strength is about the same overall. Her rashes were doing better but she went to the beach recently and developed a flare-up on her face. She denies any recent infections [facility] Medical History Nocturnal cough History of right breast cancer CHF (congestive heart failure) Pleural effusion Axillary adenopathy Bacteremia due to Klebsiella pneumoniae SIRS (systemic inflammatory response syndrome) Acute hypokalemia UTI (urinary tract infection) Abdominal pain Anemia Atrial arrhythmia Acute on chronic heart failure with preserved ejection fraction (HFpEF) Acute diastolic (congestive) heart failure Pancytopenia Diarrhea Pancolitis Colitis Nonsustained supraventricular tachycardia Port-A-Cath in place Pain in both feet Pedal edema History of COVID-19 Invasive ductal carcinoma of right breast Breast cancer, right Dermatomyositis Breast calcification, right Encounter to establish care Lumbar degenerative disc disease Hypertension Major depression, chronic Insomnia Anxiety Surgical History Hx of colonoscopy Status post right breast lumpectomy History of arthroscopic knee surgery History of hysterectomy History of section History of cholecystectomy History of gastric bypass History of fusion of cervical spine History of tonsillectomy Family History Mother No problems noted. Father Breast cancer Bone cancer Brother Substance use disorder Paternal Aunt Breast cancer Social History Household Members: Significant Other, Family and Children Housing: House Are you a primary healthcare network pricing consultant to a significant other at home: No Do you presently have visiting nurse or other home services: Yes ([facility]NA) Alcohol intake: former Comment: Pedal Edema and pain- uses cane Patient Tobacco Use Status: Former Tobacco user Tobacco use type: Cigarette e-Cigarette/Vaping Use: Never Used Second Hand Smoke Exposure: Yes Advance Directives Date on File: 11/28/21 service: No Current occupational status: unemployed and retired Cognitive needs: No Hearing needs: No Vision needs: Yes (glasses) Female Reproductive History Menstrual Age of Menarche: 17 Review of Systems Musc Reports back pain, Reports muscle weakness and Reports radiating pain into limb Skin/Breast Reports new lesions and Reports rash Physical Exam Vital Signs: Last Vital Signs Pulse 74 10/21/23 14:40 BP 120/60 10/21/23 14:40 Pulse Ox 100 10/21/23 14:40 Oxygen Delivery Method Room Air 10/21/23 14:40 BMI result Body Mass Index 27.8 Const General: cooperative, healthy appearing and comfortable Nutritional Appearance: overweight Orientation/consciousness: patient oriented x3 Limitations: no limitations HEENT Head: Yes normocephalic and Yes atraumatic Mouth: moist mucous membranes Resp Other: Gets shortness of breath with walking Effort & Inspection: normal respiratory effort Cardio Rate: regular rate Rhythm: regular rhythm Skin Other: Rash on forehead, nose, of her neck Gottron's papules and rash on extensor aspect of left hand PIPs Neuro General: patient oriented x3 Extrem Other: No active synovitis. 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 azathioprine added OSIRIS 1:80, CPK 991, marked proximal muscle weakness, CLARK neg, anti-SRP negative; aldolase WNL Associated breast cancer found 11/2021: Azathioprine stopped due to chemoRx 11/2021: flare of skin rash with taper of prednisone to 30mg 12/2021: monthly IV IVIG started 02/2022: prednisone stopped. Aza restarted Code(s): M33.90 - Dermatopolymyositis, unspecified, organ involvement unspecified Category: Medical Plan: This is a 68-year-old female with active myositis who presents for follow-up. This is her 1st visit with me. She is on IVIG 70 g x2 doses monthly. She is off the prednisone. Remains on azathioprine 50 mg daily. On exam it does not look like since disease is active, she probably has left over muscle weakness. I think patient needs muscle strengthening program. Referred patient to PT Given significant pancytopenia, we will stop azathioprine and repeat CBC in 2 weeks. Advised patient that she is at risk of infection and she should wear a mask in hospital settings and crowded areas. Perhaps the IVIG has some protective effect. If patient continues to have significant pancytopenia I will refer her back to Dr. Hernández, perhaps Neupogen can be considered Continue IVIG same dose Labs in 2 weeks and before next visit in 6 weeks (2) Long-term use of immunosuppressant medication: Code(s): Z79.60 - snf (current) use of unspecified immunomodulators and immunosuppressants Category: Medical Plan: Azathioprine discontinued as mentioned above (3) Osteopenia: Comment: September 2021: Alendronate started because of need for high-dose prednisone Code(s): M85.80 - Other specified disorders of bone density and structure, unspecified site Category: Medical Qualifiers: Osteopenia location: multiple sites Qualified Code(s): M85.89 - Other specified disorders of bone density and structure, multiple sites Plan: Continue alendronate 70 mg weekly. We will consider DEXA scan next visit Plan This is patient's 1st visit with me, I spent 49 minutes reviewing patient's chart, evaluating patient, ordering diagnostic workup, counseling patient and documenting in the chart Orders: Orders Complete Blood Count Auto Diff 2 Weeks M33.90 - Dermatopolymyositis, unspecified, organ involvement unspecified Comprehensive Met. Panel 2 Weeks M33.90 - Dermatopolymyositis, unspecified, organ involvement unspecified Creatine Kinase Total 2 Weeks M33.90 - Dermatopolymyositis, unspecified, organ involvement unspecified Complete Blood Count Auto Diff 6 Weeks M33.90 - Dermatopolymyositis, unspecified, organ involvement unspecified Comprehensive Met. Panel 6 Weeks M33.90 - Dermatopolymyositis, unspecified, organ involvement unspecified Erythrocyte Sedimentation Rate 6 Weeks M33.90 - Dermatopolymyositis, unspecified, organ involvement unspecified Hepatitis A,B,C Profile 6 Weeks Z11.59 - Encounter for screening for other viral diseases T Spot TB 6 Weeks Z11.7 - Encounter for testing for latent tuberculosis infection XR lumbar spine 4V min Today M54.16 - Radiculopathy, lumbar region XR hip LT min 2V Today M54.16 - Radiculopathy, lumbar region MSA Panel 11 Myositis Spec Abs 2 Weeks C Reactive Protein 2 Weeks M33.90 - Dermatopolymyositis, unspecified, organ involvement unspecified Erythrocyte Sedimentation Rate 2 Weeks M33.90 - Dermatopolymyositis, unspecified, organ involvement unspecified C Reactive Protein 6 Weeks M33.90 - Dermatopolymyositis, unspecified, organ involvement unspecified Creatine Kinase Total 6 Weeks M33.90 - Dermatopolymyositis, unspecified, organ involvement unspecified XR hip RT min 2V Today M54.16 - Radiculopathy, lumbar region PT Evaluation and Treatment Today R29.898 - Other symptoms and signs involving the musculoskeletal system Coding Level of Care Code Est Pt Level 5 (56245) Complex EM visit Add On G2211 Diagnoses Dermatomyositis M33.90 Long-term use of immunosuppressant medication Z79.60 Osteopenia of multiple sites M85.89 Osteopenia location: multiple sites
[2023-10-21 14:40] VITALS: BP 120/60; PULSE 74; O2SAT 100; BMI 27.8
== END 2023-10-21 15:11 | disposition home or self-care (01) ==
PROVIDERS: PCP Internal Medicine; Visit Provider Student in an Organized Health Care Education/Training Program
DX: M33.90 Dermatopolymyositis, unspecified, organ involvement unspecified (principal); Z79.60 Long term (current) use of unspecified immunomodulators and immunosuppressants; M85.89 Other specified disorders of bone density and structure, multiple sites
CPT/HCPCS: 99215; G2211

== ENCOUNTER → 2023-10-21 14:34 | Outpatient (BNVA) | payer MEDICARE, SELFPAY | PROVIDERS: PCP Internal Medicine; Visit Provider Student in an Organized Health Care Education/Training Program | DX: M33.90 Dermatopolymyositis, unspecified, organ involvement unspecified (principal); M85.89 Other specified disorders of bone density and structure, multiple sites; Z79.60 Long term (current) use of unspecified immunomodulators and immunosuppressants | CPT/HCPCS: 99212 ==

== ENCOUNTER 2023-10-24 10:09 | Outpatient (REF) | payer MEDICARE, SELFPAY ==
--- NOTE | ~2023-10-24 | XR_ITS ---
EXAMINATION: XR HIP, RIGHT CLINICAL INFORMATION: Lumbar radiculopathy. COMPARISON: None available. TECHNIQUE: AP and frog-leg lateral views of the right hip. FINDINGS: No fracture. Alignment is anatomic. Hip joint space is maintained. There is trace peripheral osteophyte formation of the right acetabular roof. The right femoral head is smooth. Soft tissues are unremarkable. There are pelvic phleboliths. XR/XR hip RT min 2V IMPRESSION: There is minimal osteoarthritic change of the right hip. No fracture or dislocation is seen. Electronically signed by: Ashkan Green MD 11/20/2023 02:54 PM EDT RP
--- NOTE | ~2023-10-24 | XR_ITS ---
EXAMINATION: XR HIP, LEFT CLINICAL INFORMATION: Lumbar radiculopathy. COMPARISON: None available. TECHNIQUE: AP and frog-leg lateral views of the left hip. FINDINGS: No fracture. Alignment is anatomic. Hip joint space is maintained. The left femoral head is smooth. Soft tissues are unremarkable. There are small pelvic phleboliths. XR/XR hip LT min 2V IMPRESSION: Normal left hip. Electronically signed by: Ashkan Green MD 11/20/2023 02:52 PM EDT
--- NOTE | ~2023-10-24 | XR_ITS ---
EXAMINATION: XR LUMBOSACRAL SPINE CLINICAL INFORMATION: Lumbar radiculopathy. COMPARISON: CT chest dated 07/04/2022. TECHNIQUE: AP, bilateral and lateral views of the lumbar spine and lateral views of the lumbosacral junction. FINDINGS: There is a mild L1 anterior wedge compression fracture. The remaining vertebral body heights are normal. There is a mild to moderate lumbar rotatory levoscoliosis. There is moderate disc space narrowing at L3-4, with vacuum phenomenon. The remaining disc spaces are relatively well-maintained. No acute fracture or spondylolisthesis is seen. There is multi-level lumbar endplate and facet arthropathy. The posterior elements are intact. No spondylolysis defect is seen on the oblique views. The paravertebral soft tissues are unremarkable. XR/XR lumbar spine 4V min IMPRESSION: 1. There is a mild to moderate lumbar rotatory levoscoliosis. 2. There is moderate degenerative disc disease at L3-4, with vacuum disc phenomenon. 3. There is a stable mild L1 anterior wedge compression fracture. Electronically signed by: Ashkan Green MD 11/20/2023 03:17 PM EDT
== END 2023-10-24 10:10 | disposition home or self-care (01) ==
LOC: HO.XRAY 10:09
PROVIDERS: PCP Internal Medicine; Visit Provider Student in an Organized Health Care Education/Training Program
DX: M54.16 Radiculopathy, lumbar region (principal)
CPT/HCPCS: 72110; 73502

== ENCOUNTER 2023-11-04 13:58 | Outpatient (REF) | payer MEDICARE, SELFPAY ==
[2023-11-04 14:39] LABS: MANUAL DIFF FLAG NO
[2023-11-04 15:01] LABS: Basophils Percent Auto 0.5 % (0-2); Eosinophils Percent Auto 1.6 % (0-4); Hematocrit 31.8 % (37.0-47.0); Hemoglobin 10.3 g/dl (12.0-16.0); Imm Gran Abs Auto 0.01 X10*3/uL (0.00-0.03); Imm Gran Pct Auto 0.5 % (0.0-0.4); Lymphocytes Absolute Auto 0.4 X10*3/uL (1.2-4.9); Lymphocytes Percent Auto 19.1 % (20-40); Mean Corpuscular HGB Conc 32.4 g/dl (31.0-35.0); Mean Corpuscular Hemoglobin 28.9 pg (27.0-33.0); Mean Corpuscular Volume 89.3 fL (80.0-98.0); Mean Platelet Volume 9.6 fL (9.4-12.3); Monocytes Absolute Auto 0.3 X10*3/uL (0.1-1.2); Monocytes Percent Auto 14.2 % (2-11); Neutrophils Absolute Auto 1.2 x10*3/uL (2.0-8.3); Neutrophils Percent Auto 64.1 % (45-73); Red Blood Count 3.56 X10*6/uL (4.20-5.50); Red Cell Distribution Width 14.8 % (11.0-16.0); SCAN SMEAR FLAG 1
[2023-11-04 15:15] LABS: Platelet Count 70 X10*3/uL (160-400); White Blood Count 1.8 X10*3/uL (4.8-10.8)
[2023-11-04 15:40] LABS: Alanine Aminotransferase 12 U/L (0-31); Albumin Level 3.6 g/dL (3.5-5.0); Alkaline Phosphatase 70 U/L (39-117); Anion Gap 12 (12-20); Aspartate Amino Transferase 22 U/L (5-31); Bilirubin Total 0.5 mg/dL (0.0-1.0); Blood Urea Nitrogen 19 mg/dL (9-16); C Reactive Protein < 0.10 mg/dL (< or = 0.50); Calcium 8.8 mg/dL (8.4-10.2); Carbon Dioxide 24 mmol/L (22-29); Chloride 109 mmol/L (96-108); Estimated Glomerular Filt Rate > 60; Glucose Random 79 mg/dL (60-115); Potassium 3.8 mmol/L (3.3-5.1); Sodium 141 mmol/L (135-145); Total Protein 6.6 g/dL (6.5-8.0)
[2023-11-04 15:55] LABS: Erythrocyte Sedimentation Rate 14 MM/HR (0-20)
[2023-11-05 05:04] LABS: HBc Num1 5.13 S/CO (0.00-0.79); HBsAGNum1 0.27 S/CO (0.00-0.99); Hepatitis A Antibody IgM 0.15 Index (0-0.79); Hepatitis B Surface Antigen Negative (Negative); ~HepC Num1 0.16 S/CO (0.00-0.79); ~Hepatitis A Antibody IgM Nonreactive (Nonreactive); ~Hepatitis B Surface Antibody REACTIVE (Nonreactive); ~Hepatitis C Antibody Nonreactive (Nonreactive)
[2023-11-05 05:51] LABS: HBc Num2 5.57 S/CO; HBc Num3 5.19 S/CO; Hepatitis B Core Antibody Reactive (Nonreactive)
[2023-11-06 22:43] LABS: TS Negative Control Passed; TS Panel A 1; TS Panel B 0; TS Positive Control Passed; TSpotTB Negative (Negative)
[2023-11-14 16:04] LABS: Ej Ab <11 SI (<11); Jo-1 Ab <11 SI (<11); MDA5 Ab <11 SI (<11); Mi-2 alpha Ab <11 SI (<11); Mi-2 beta Ab <11 SI (<11); NXP-2 (MJ) Ab <11 SI (<11); Oj Ab <11 SI (<11); Pl-12 Ab <11 SI (<11); Pl-7 Ab <11 SI (<11); SRP Ab <11 SI (<11); TIF1 gamma Ab 149 SI (<11)
== END 2023-11-04 13:59 | disposition home or self-care (01) ==
LOC: HO.LAB 13:58
PROVIDERS: PCP Internal Medicine; Visit Provider Student in an Organized Health Care Education/Training Program
DX: M33.90 Dermatopolymyositis, unspecified, organ involvement unspecified (principal); Z11.59 Encounter for screening for other viral diseases; Z11.7 Encounter for testing for latent tuberculosis infection
CPT/HCPCS: 36415; 80053; 82550; 84182; 85025; 85652; 86140; 86235; 86481; 86704; 86706; 86709; 86803; 87340

== ENCOUNTER 2023-11-21 10:24 | Outpatient (REF) | payer MEDICARE, SELFPAY ==
[2023-11-21 11:42] LABS: Basophils Percent Auto 0.7 % (0-2); Hematocrit 31.3 % (37.0-47.0); Hemoglobin 10.2 g/dl (12.0-16.0); Lymphocytes Absolute Auto 0.2 X10*3/uL (1.2-4.9); Lymphocytes Percent Auto 15.6 % (20-40); MANUAL DIFF FLAG SCAN; Mean Corpuscular HGB Conc 32.6 g/dl (31.0-35.0); Mean Corpuscular Volume 88.9 fL (80.0-98.0); Mean Platelet Volume 10.1 fL (9.4-12.3); Monocytes Absolute Auto 0.2 X10*3/uL (0.1-1.2); Monocytes Percent Auto 11.9 % (2-11); Neutrophils Absolute Auto 0.9 x10*3/uL (2.0-8.3); Neutrophils Percent Auto 68.8 % (45-73); Red Blood Count 3.52 X10*6/uL (4.20-5.50); Red Cell Distribution Width 15.9 % (11.0-16.0); SCAN SMEAR FLAG 1
[2023-11-21 11:44] LABS: Platelet Count 64 X10*3/uL (160-400); White Blood Count 1.4 X10*3/uL (4.8-10.8)
[2023-11-21 12:01] LABS: SLIDE REVIEW VERIFIED
[2023-11-21 12:08] LABS: B Type Natriuretic Peptide 276 pg/mL (<100)
[2023-11-21 12:19] LABS: Digoxin 0.5 ng/mL (0.8-2.0)
[2023-11-21 12:23] LABS: Alanine Aminotransferase 14 U/L (0-31); Albumin Level 3.4 g/dL (3.5-5.0); Alkaline Phosphatase 72 U/L (39-117); Anion Gap 9 (12-20); Aspartate Amino Transferase 25 U/L (5-31); Bilirubin Total 0.6 mg/dL (0.0-1.0); Blood Urea Nitrogen 12 mg/dL (9-16); C Reactive Protein 0.11 mg/dL (< or = 0.50); Calcium 8.6 mg/dL (8.4-10.2); Carbon Dioxide 24 mmol/L (22-29); Chloride 114 mmol/L (96-108); Estimated Glomerular Filt Rate > 60; Glucose Random 131 mg/dL (60-115); Potassium 3.8 mmol/L (3.3-5.1); Sodium 143 mmol/L (135-145); Total Protein 6.6 g/dL (6.5-8.0)
[2023-11-21 12:29] LABS: Erythrocyte Sedimentation Rate 14 MM/HR (0-20)
== END 2023-11-21 10:25 | disposition home or self-care (01) ==
LOC: HO.LAB 10:24
PROVIDERS: Absent Provider Student in an Organized Health Care Education/Training Program; PCP Nurse Practitioner Family; Visit Provider Internal Medicine Cardiovascular Disease
DX: R06.02 Shortness of breath (principal); M33.90 Dermatopolymyositis, unspecified, organ involvement unspecified; I50.9 Heart failure, unspecified
CPT/HCPCS: 36415; 80053; 80162; 82550; 83880; 85025; 85652; 86140; 93005; 99212

== ENCOUNTER 2023-11-21 10:24 | Outpatient (AMB) | payer MEDICARE, SELFPAY ==
[2023-11-21 10:35] VITALS: BP 120/62; PULSE 60; BMI 27.8
--- NOTE | 2023-11-21 10:35 | MHC.OFFVIS ---
Vital Signs 11/21/23 10:35 Height 5 ft 3 in Weight 157 lb BMI 27.8 BMI Reason not done Patient refused/unable BP 120/62 Blood Pressure Location Lt brachial Position Sitting Pulse 60 Pulse Source Monitor Intake Visit Reasons: 1 yr f/up Allergies No Known Allergies Allergy (Verified 10/21/23 14:39) Medication List - Last Reconciled 11/21/23 by Josias Hameed MD alendronate 70 mg PO QWEEK betamethasone dipropionate 0.05% 1 appl topical BID citalopram 20 mg PO DAILY clonidine HCl 0.2 mg PO BEDTIME digoxin 0.25 mg PO DAILY furosemide 20 mg PO DAILY furosemide 40 mg PO DIRECTED 90 days tamoxifen 20 mg PO DAILY HPI Comments Details: Kate comes for follow-up. She says over the last week she has been having increased exertional shortness of breath with minimal exertion. She denies any lightheadedness, syncope. Denies any orthopnea, PND, leg edema, abdominal distention, weight gain. She takes Lasix at 20 mg 3 to 4 times a week and 60 mg on other days. Unsure as to the regimen is off now. No significant recent drop in her hematocrit. She is not significantly anemic. She has no prolonged palpitation irregular heartbeat. Denies any exertional chest pain. No clear wheezing noted by her. No recent viral infection. [facility] Medical History (Updated 11/21/23 @ 11:00 by Josias Hameed MD) Acute on chronic heart failure with preserved ejection fraction (HFpEF) Nocturnal cough History of right breast cancer CHF (congestive heart failure) Pleural effusion Axillary adenopathy Bacteremia due to Klebsiella pneumoniae SIRS (systemic inflammatory response syndrome) Acute hypokalemia UTI (urinary tract infection) Abdominal pain Anemia Atrial arrhythmia Acute diastolic (congestive) heart failure Pancytopenia Diarrhea Pancolitis Colitis Nonsustained supraventricular tachycardia Port-A-Cath in place Pain in both feet Pedal edema History of COVID-19 Invasive ductal carcinoma of right breast Breast cancer, right Dermatomyositis Breast calcification, right Encounter to establish care Lumbar degenerative disc disease Hypertension Major depression, chronic Insomnia Anxiety Surgical History Hx of colonoscopy Status post right breast lumpectomy History of arthroscopic knee surgery History of hysterectomy History of section History of cholecystectomy History of gastric bypass History of fusion of cervical spine History of tonsillectomy Family History Mother No problems noted. Father Breast cancer Bone cancer Brother Substance use disorder Paternal Aunt Breast cancer Social History Household Members: Significant Other, Family and Children Housing: House Are you a primary animal care taker to a significant other at home: No Do you presently have visiting nurse or other home services: Yes ([facility]) Alcohol intake: former Comment: Pedal Edema and pain- uses cane Patient Tobacco Use Status: Former Tobacco user Tobacco use type: Cigarette e-Cigarette/Vaping Use: Never Used Second Hand Smoke Exposure: Yes Advance Directives Date on File: 11/28/21 service: No Current occupational status: unemployed and retired Cognitive needs: No Hearing needs: No Vision needs: Yes (glasses) Female Reproductive History Menstrual Age of Menarche: 17 Review of Systems Const Denies weakness ENT Denies dizziness Card Denies chest pain, Denies chest pain with activity, Denies syncope, Denies rapid heart rate, Denies pedal edema, Denies edema, Denies leg edema, Denies lightheadedness, Denies palpitations, Denies dyspnea, Denies dyspnea on exertion and Denies orthopnea Resp Denies cough, Denies dyspnea and Denies dyspnea on exertion GI Denies hematochezia and Denies change in stool character Musc Denies abnormal gait, Denies muscle cramps, Denies muscle weakness, Denies numbness, Denies radiating pain into limb and Denies tingling Neuro Denies abnormal gait, Denies dizziness, Denies syncope, Denies numbness, Denies tingling and Denies weakness Endo Denies palpitations Physical Exam Vital Signs: Last Vital Signs Pulse 60 11/21/23 10:35 BP 120/62 11/21/23 10:35 BMI result Body Mass Index 27.8 Const General: cooperative, comfortable, no acute distress, alert and awake Nutritional Appearance: obese Limitations: ambulation with cane Neck Neck: Yes trachea midline, Yes supple and Yes no JVD Resp Effort & Inspection: normal respiratory effort Auscultation: clear to auscultation bilaterally Cardio Jugular venous distension: no JVD Palpation: normal PMI Rate: regular rate Rhythm: regular rhythm Heart sounds: S1 normal heart sound present, S2 normal heart sound present, no click, no gallops and no murmurs GI Auscultation: normal bowel sounds Neuro General: no focal motor deficits Extrem General: Yes no clubbing, cyanosis or edema Office Procedures EKG Details: EKG shows junctional rhythm at 60 beats per minute with low-voltage QRS [id number], Complete Assessment & Plan Assessment & Plan (1) SOB (shortness of breath) on exertion: Code(s): R06.02 - Shortness of breath Category: Medical Plan: Recent onset exertional shortness of breath without any overt signs of fluid overload or any weight gain on her part or any wheezing. EKG noted to be junctional rhythm. This could be due to loss of AV synchrony in setting of diastolic dysfunction. This could be due to digoxin toxicity. She has not had any digoxin assay since May of last year. I have advised her to stop digoxin altogether. Will obtain digoxin assay today. Will recheck EKG next week. Could have underlying sick sinus syndrome and may need a cardiac pacemaker if her heart rate and sinus rhythm is not achieved. Was discussed with her. Will obtain a Holter monitor as well as a treadmill stress test and echocardiogram in 4 weeks after stopping digoxin. Further treatment based on the findings. (2) CHF (congestive heart failure): Code(s): I50.9 - Heart failure, unspecified Category: Medical Plan: Heart failure preserved ejection fraction, clinically euvolemic and well compensated. However will obtain BNP due to her increased shortness of breath. Will redo echocardiogram in near future. I have advised her to make her regimen simple and take Lasix 40 mg every day and monitor daily weights. Additional diuretics as need be. Prescription will be provided. Continue aggressive blood pressure control, currently well optimized. Continue current therapy. Low-salt diet was discussed. Continue optimize pulmonary function. Encouraged to continue to remain active and participate in physical activity. Will follow up in the clinic in 2 months time, sooner p.r.n.. Thank you for allowing me to partake in his care Orders: Orders B Type Natriuretic Peptide Today R06.02 - Shortness of breath XR chest 2V Today R06.02 - Shortness of breath CA stress test 4 Weeks R06.02 - Shortness of breath Digoxin Today R06.02 - Shortness of breath Basic Metabolic Panel Today R06.02 - Shortness of breath CA echo transthoracic complete 4 Weeks R06.02 - Shortness of breath ECG 3 day holter monitor 4 Weeks R06.02 - Shortness of breath Medications: Changed From furosemide Take one tablet on Saturday, Saturday and Saturday 40 mg PO DIRECTED 90 days 40 tabs 3RF To furosemide Take one tablet on Saturday, Saturday and Saturday 40 mg PO DAILY 100 tabs 3RF 90 days Discontinued furosemide Discontinued Reason: Doctor's Order 20 mg PO DAILY 90 tabs 4RF digoxin Discontinued Reason: Doctor's Order 0.25 mg PO DAILY 90 tabs 3RF I49.8 - Other specified cardiac arrhythmias Coding Level of Care Code Est Pt Level 4 (78435) Diagnoses SOB (shortness of breath) on exertion R06.02 CHF (congestive heart failure) I50.9 CPT Codes EKG - CPT: 46747-[id number], Complete ([id number])
== END 2023-11-21 10:59 | disposition home or self-care (01) ==
PROVIDERS: PCP Nurse Practitioner Family; Visit Provider Internal Medicine Cardiovascular Disease
DX: R06.02 Shortness of breath (principal); I50.9 Heart failure, unspecified
CPT/HCPCS: 93010; 99214

== ENCOUNTER 2023-11-28 09:31 | Outpatient (REF) | payer MEDICARE, SELFPAY ==
--- NOTE | ~2023-11-28 | XR_ITS ---
EXAMINATION: XR CHEST CLINICAL INFORMATION: Shortness of breath. COMPARISON: March 29, 2023. TECHNIQUE: 2 views of the chest were obtained. FINDINGS: No focal infiltrate or pneumothorax is appreciated. Minimal blunting of the left costophrenic angle, unchanged. The cardiac silhouette appears upper normal in size. Mildly atherosclerotic aorta. Degenerative changes of the shoulders and spine, with mild thoracic dextrocurvature. Partially imaged lower cervical anterior fixation plate and screws. Tip of left internal jugular chest port catheter projects over the junction of the left innominate vein and superior vena cava. XR/XR chest 2V IMPRESSION: Findings as above. Electronically signed by: Luciano Bullock MD 11/28/2023 12:58 PM EDT RP
[2023-11-28 12:13] LABS: B Type Natriuretic Peptide 119 pg/mL (<100)
[2023-11-28 12:18] LABS: Anion Gap 8 (12-20); Blood Urea Nitrogen 22 mg/dL (9-16); Calcium 8.9 mg/dL (8.4-10.2); Carbon Dioxide 33 mmol/L (22-29); Chloride 105 mmol/L (96-108); Estimated Glomerular Filt Rate > 60; Glucose Random 93 mg/dL (60-115); Potassium 3.4 mmol/L (3.3-5.1); Sodium 143 mmol/L (135-145)
== END 2023-11-28 09:32 | disposition home or self-care (01) ==
LOC: HO.LAB 09:31
PROVIDERS: PCP Internal Medicine; Visit Provider Internal Medicine Cardiovascular Disease
DX: R06.02 Shortness of breath (principal); I49.8 Other specified cardiac arrhythmias
CPT/HCPCS: 36415; 71046; 80048; 83880; 93005

== ENCOUNTER 2023-11-28 09:53 | Outpatient (AMB) | payer MEDICARE, SELFPAY ==
--- NOTE | 2023-11-28 09:57 | AM.OFFVISNUR ---
Intake Visit Reasons: ekg after stopping dig Allergies No Known Allergies Allergy (Verified 10/21/23 14:39) Nursing Note pt is here for nurse visit with ekg after stopping digoxin ekg left on providers desk for review Office Procedures EKG [id number], Complete
== END 2023-11-28 10:23 | disposition home or self-care (01) ==
LOC: HO.HCS 09:53
PROVIDERS: PCP Internal Medicine; Visit Provider Internal Medicine Cardiovascular Disease
DX: Z51.81 Encounter for therapeutic drug level monitoring (principal)
CPT/HCPCS: 93010

== ENCOUNTER 2023-12-04 07:39 | Outpatient (AMB) | payer MEDICARE, SELFPAY ==
--- NOTE | 2023-12-04 07:44 | A.OFFVIS_ITS ---
Vital Signs 12/04/23 07:46 Height 5 ft 3 in Weight 158 lb 4.67 oz BMI 28.0 BP 115/58 L Blood Pressure Location Lt brachial Position Sitting Pulse 71 Pulse Source Pulse Oximeter Pulse Oximetry (%) 96 Oxygen Delivery Method Room Air Intake Visit Reasons: DM Intake Note: Patient presents for DM. Allergies No Known Allergies Allergy (Verified 12/04/23 07:47) Medication List - Last Reconciled 12/04/23 by Tamiko Dior MD alendronate 70 mg PO QWEEK betamethasone dipropionate 0.05% 1 appl topical BID PRN citalopram 20 mg PO DAILY clonidine HCl 0.2 mg PO BEDTIME furosemide 60 mg PO DAILY tamoxifen 20 mg PO DAILY HPI Comments Details: This is a 68-year-old female with dermatomyositis who presents for follow-up. She started PT. She went to 3 sessions so far. She states that her muscle weakness is about the same. She has been having itchy rashes on her scalp. Similar to how she was when initially diagnosed with dermatomyositis. She has not had any fevers or recent illnesses. She remains on IVIG 2 gram/kilogram every 4 weeks [facility] Medical History Acute on chronic heart failure with preserved ejection fraction (HFpEF) Nocturnal cough History of right breast cancer CHF (congestive heart failure) Pleural effusion Axillary adenopathy Bacteremia due to Klebsiella pneumoniae SIRS (systemic inflammatory response syndrome) Acute hypokalemia UTI (urinary tract infection) Abdominal pain Anemia Atrial arrhythmia Acute diastolic (congestive) heart failure Pancytopenia Diarrhea Pancolitis Colitis Nonsustained supraventricular tachycardia Port-A-Cath in place Pain in both feet Pedal edema History of COVID-19 Invasive ductal carcinoma of right breast Breast cancer, right Dermatomyositis Breast calcification, right Encounter to establish care Lumbar degenerative disc disease Hypertension Major depression, chronic Insomnia Anxiety Surgical History Hx of colonoscopy Status post right breast lumpectomy History of arthroscopic knee surgery History of hysterectomy History of section History of cholecystectomy History of gastric bypass History of fusion of cervical spine History of tonsillectomy Family History Mother No problems noted. Father Breast cancer Bone cancer Brother Substance use disorder Paternal Aunt Breast cancer Social History Household Members: Significant Other, Family and Children Housing: House Are you a primary medicare sales executive to a significant other at home: No Do you presently have visiting nurse or other home services: Yes ([facility]NA) Alcohol intake: former Comment: Pedal Edema and pain- uses cane Patient Tobacco Use Status: Former Tobacco user Tobacco use type: Cigarette e-Cigarette/Vaping Use: Never Used Second Hand Smoke Exposure: Yes Advance Directives Date on File: 11/28/21 service: No Current occupational status: unemployed and retired Cognitive needs: No Hearing needs: No Vision needs: Yes (glasses) Female Reproductive History Menstrual Age of Menarche: 17 Review of Systems Musc Reports muscle weakness and Reports radiating pain into limb Skin/Breast Reports new lesions and Reports rash Physical Exam Vital Signs: Last Vital Signs Pulse 71 12/04/23 07:46 BP 115/58 L 12/04/23 07:46 Pulse Ox 96 12/04/23 07:46 Oxygen Delivery Method Room Air 12/04/23 07:46 BMI result Body Mass Index 28.0 Const General: cooperative, healthy appearing and comfortable Nutritional Appearance: overweight Orientation/consciousness: patient oriented x3 Limitations: no limitations HEENT Head: Yes normocephalic and Yes atraumatic Mouth: moist mucous membranes Resp Effort & Inspection: normal respiratory effort Cardio Rate: regular rate Rhythm: regular rhythm Skin Other: Rash on right upper side of scalp Gottron's papules and rash on extensor aspect of left hand PIPs Neuro General: patient oriented x3 Extrem Other: No active synovitis. 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 azathioprine added OSIRIS 1:80, CPK 991, marked proximal muscle weakness, CLARK neg, anti-SRP negative; aldolase WNL Associated breast cancer found 11/2021: Azathioprine stopped due to chemoRx 11/2021: flare of skin rash with taper of prednisone to 30mg 12/2021: monthly IV IVIG started 02/2022: prednisone stopped. Aza restarted Code(s): M33.90 - Dermatopolymyositis, unspecified, organ involvement unspecified Category: Medical Plan: This is a 68-year-old female with active myositis who presents for follow-up. She is on IVIG 70 g x2 doses monthly. Azathioprine was discontinued last visit. On exam patient is doing well overall. No muscle weakness. CPK is normal. She is having some return of skin rashes on her scalp and neck. I think hydroxychloroquine can be added. Perhaps at 200 mg daily which may help her rashes. Patient is on tamoxifen and she was told that she may have early macular degeneration. Advised patient to reach out to her technical photographer and ask whether hydroxychloroquine can be started Continue IVIG 70 gX 2 days every 4 weeks Labs before next visit in 10 weeks (2) Long-term use of immunosuppressant medication: Code(s): Z79.60 - [facility] (current) use of unspecified immunomodulators and immunosuppressants Category: Medical Plan: Azathioprine discontinued as mentioned above (3) Osteopenia: Comment: September 2021: Alendronate started because of need for high-dose prednisone Code(s): M85.80 - Other specified disorders of bone density and structure, unspecified site Category: Medical Qualifiers: Osteopenia location: multiple sites Qualified Code(s): M85.89 - Other specified disorders of bone density and structure, multiple sites Plan: Continue alendronate 70 mg weekly. We will consider DEXA scan next visit (4) Leukopenia: Code(s): D72.819 - Decreased white blood cell count, unspecified Category: Medical Plan: Follow-up with Dr. Hernández Plan I spent 45 minutes reviewing patient's chart, evaluating patient, ordering diagnostic workup, counseling patient and documenting in the chart Coding Level of Care Code Est Pt Level 5 (14424) Diagnoses Dermatomyositis M33.90 Long-term use of immunosuppressant medication Z79.60 Osteopenia of multiple sites M85.89 Osteopenia location: multiple sites Leukopenia D72.819
[2023-12-04 07:46] VITALS: BP 115/58; PULSE 71; O2SAT 96; BMI 28.0
== END 2023-12-04 08:14 | disposition home or self-care (01) ==
PROVIDERS: PCP Internal Medicine; Visit Provider Student in an Organized Health Care Education/Training Program
DX: M33.90 Dermatopolymyositis, unspecified, organ involvement unspecified (principal); Z79.60 Long term (current) use of unspecified immunomodulators and immunosuppressants; M85.89 Other specified disorders of bone density and structure, multiple sites; D72.819 Decreased white blood cell count, unspecified
CPT/HCPCS: 99215

== ENCOUNTER → 2023-12-04 07:39 | Outpatient (BNVA) | payer MEDICARE, SELFPAY | PROVIDERS: PCP Internal Medicine; Visit Provider Student in an Organized Health Care Education/Training Program | DX: M33.90 Dermatopolymyositis, unspecified, organ involvement unspecified (principal); M85.89 Other specified disorders of bone density and structure, multiple sites; D72.819 Decreased white blood cell count, unspecified; Z79.60 Long term (current) use of unspecified immunomodulators and immunosuppressants | CPT/HCPCS: 99212 ==

== ENCOUNTER → 2023-12-12 07:58 | Outpatient (REF) | payer MEDICARE, SELFPAY ==
--- NOTE | 2023-12-12 08:01 | CA_ITS ---
Acquisition Time: 2023-12-12 08:55:45 Total Exercise Time: 00:03:14 Test Indications: CHF Medications: ALENDRONATE CITALOPRAM CLONIDINE FUROSEMIDE Protocol: LACI Max HR: 113 BPM 73% of Pred: 154 BPM Max BP: 160/058 mmHG Max Work Load: 4.7 METS Exercise stress test exercise 3 min 14 sec of Laci protocol achieving 74% MPHR, with moderate SOB, no chest discomforts. with isolated PACs and PVCs, with normotensive response to exercise, without EKG changes at achieved workload. Breathing returned to baseline with rest. Test reviewed with Dr. Jean-Baptiste Referred By: Josias Hameed Overread By: Bella Lee
--- NOTE | 2023-12-12 08:01 | CA_ITS ---
Transthoracic Echocardiogram Patient (Last, First, Middle): Kate Almaguer, Gender: Female Date of : 1955 Age: 68 Procedure Date: 12/12/2023 Procedure Type: Transthoracic Echocardiogram Location: OP Height: 160. cm Weight: 71.22 kg BSA: 1.74 m2 Heart Rate: 62 bpm BP: 115 / 55 mmHg Placement Interviewer: MERLYN Referring MD: Josias Hameed MD Electric Crane Operator: Josias Hameed MD Symptoms: R06.02 - Shortness of breath Study Quality: Fair ECG Rhythm: Arrhythmia Conclusions: - 1. Normal LV ejection fraction at 65-70% with grade 2 diastolic dysfunction 2. Mildly dilated left atrium 3. Mild aortic stenosis 4. Mild mitral regurgitation possible mild calcific mitral stenosis 5. No gross pericardial effusion Findings Left Ventricle Normal left ventricular size, thickness, and systolic function. The visually estimated ejection fraction is between 65-70%. Spectral Doppler is indicative of a pseudonormal filling pattern. E/E prime ratio is >15, consistent with elevated filling pressures. Evidence suggests grade II (moderate) diastolic dysfunction. Right Ventricle Normal right ventricular cavity size and systolic function. Atria The left atrium is mildly dilated. There is lipomatous hypertrophy of the interatrial septum. There is no evidence of interatrial shunt. The right atrium is likely dilated. Aortic Valve The aortic valve was not well visualized. There is mild calcification of the aortic valve. There is mild thickening of the aortic valve. There is mild aortic valve stenosis. The peak aortic gradient is 20 mmHg.The mean gradient is 11 mmHg. The aortic valve area is 1.53 cm2. There is no aortic valve regurgitation. Mitral Valve There is mild anterior and posterior mitral leaflet thickening. There is mild mitral annular calcification. There is mild mitral valve regurgitation. There is mild mitral valve stenosis. Pulmonic Valve The pulmonic valve is likely normal. There is trace pulmonic valve regurgitation. Tricuspid Valve Likely normal tricuspid valve structure and function. There is trace tricuspid valve regurgitation. Tricuspid regurgitation envelope is inadequate for calculation of right ventricular systolic pressure. Normal right atrial pressure. Great Vessels The aorta was not well visualized. The pulmonary artery was not well visualized. There is no dilatation of the ascending aorta measuring 2.40 cm. Venous The inferior vena cava is normal in size and collapses greater than 50% with inspiration. Pericardium/Pleural There is no evidence of pericardial effusion. Prior Study Comparison No significant change compared to prior study dated: 10/24/2022. Measurements 2D Linear Measurements IVSd: 0.77 0.6-0.9/0.6-1.0 cm LVIDd: 4.15 3.9-5.3/4.2-5.9 cm LVIDd Index: 2.39 2.4-3.2/2.2-3.1 cm/m2 LVIDs: 1.81 2.0-3.6 cm LVPWd: 0.90 0.7-1.1 cm LA Diam: 3.80 2.7-3.8/3.0-4.0 cm LAIDs Index: 2.18 1.5-2.3 cm/m2 LV Mass: 130.58 67-162/88-224 g LV Mass Index: 75.05 43-95/49-115 g/m2 LVOT Diam: 1.70 3.0+(-)1.3 cm 2D Systolic Function EF 4C: 72.20 >55% EF 2C: 71.20 >55% EF BiP: 71.30 >55% Mitral Valve MV VTI: 0.46 MV Pk Taras: 1.31 MV Mn Taras: 0.70 MV Pk Grad: 7.00 MV Mn Grad: 2.00 MV Pk E: 1.28 MV PK A: 0.64 MV Decel Time: 265.00 E/A: 2.00 E'Lateral: 7.44 E'Medial: 7.15 E/E' Med: 17.90 E/E' Lat: 17.20 PHT: 78.00 MVA PHT: 2.82 MVA Continuity: 1.84 Decel Clinton: 4.89 Aortic Valve AoV Pk Taras: 2.26 AoV Mn Taras: 1.54 AoV VTI: 0.55 AoV Pk Grad: 20.00 Aov Mn Grad: 11.00 SAMANTHA Cont.VTI: 1.53 LVOT LVOT Pk Taras: 1.63 LVOT Mn Taras: 1.10 LVOT VTI: 0.37 LVOT Pk Grad: 11.00 LVOT Mn Grad: 6.00 LVOT Diam: 1.70 LVOT Area: 2.27 Diastolic Function MV Pk E: 1.28 MV Pk A: 0.64 E/A: 2.00 E'Medial: 7.15 E/E' Med: 17.90 E' Laterial: 7.44 E/E' Lat: 17.20 Right Ventricle TAPSE (mm): 2.81 TVS' Taras: 12.80 Tricuspid Valve RA Press: 8.00 Great Vessels Aorta Sinus of Valsalva: 2.70 2.0-3.5 cm Ao Asc: 2.40 2.1-3.4 cm Pulmonary Valve PV Pk Taras: 1.09 Peak PV Grad: 5.00 Updated in Other Vendor System with Status of Final Josias Hameed MD electronically signed on 12/12/2023 1:02:35 PM with status of Final
--- NOTE | 2023-12-12 08:01 | HM_ITS ---
* Total monitoring time 3 days. * Underlying rhythm is sinus with an average rate of 68/Min. * Supraventricular ectopy noted with a burden of 3.1%. * Rare ventricular ectopy. * No significant pauses or high-grade AV blocks. * Patient marker used in association with supraventricular ectopy. * No symptoms mentioned in diary. MTDD
== END ==
LOC: HO.CARD 07:58
PROVIDERS: PCP Nurse Practitioner Family; Visit Provider Internal Medicine Cardiovascular Disease
DX: R06.02 Shortness of breath (principal)
CPT/HCPCS: 93017; 93242; 93306

== ENCOUNTER → 2023-12-12 08:01 | Outpatient (BNV) | payer MEDICARE, SELFPAY | PROVIDERS: PCP Nurse Practitioner Family; Visit Provider Internal Medicine Cardiovascular Disease | DX: I47.10 Supraventricular tachycardia, unspecified (principal) | CPT/HCPCS: 93016; 93018; 93244; 93320; 93325; 93350 ==

== ENCOUNTER 2024-01-03 14:20 | Emergency (ER) | payer MEDICARE, SELFPAY ==
--- NOTE | ~2024-01-03 | CT_ITS ---
EXAMINATION: CT ABDOMEN AND PELVIS WITH CONTRAST CLINICAL INFORMATION: Pain. Concern for small bowel obstruction. COMPARISON: Feb 04, 2022. TECHNIQUE: Multidetector volumetric images were obtained from the superior aspect of the liver through the pubic symphysis following administration 85 mL of Omnipaque 350 intravenous contrast. Sagittal and coronal reformatted images were obtained on the technologist's workstation. Oral contrast: No This CT examination was performed using dose optimization techniques as appropriate, variously including the following: *Automated exposure control *Adjustment of mA and/or kV according to patient size (this includes techniques or standardized protocols for targeted exams where dose is matched to indication/reason for exam; i.e. extremities or head) *Use of iterative reconstruction technique DLP: 528 mGy-cm FINDINGS: LUNG BASES: There is a small right pleural effusion and minimal atelectatic change at the right lung base. LIVER, GALLBLADDER, AND BILIARY TREE: The liver is irregular in contour. No focal liver lesions are seen. There is no acute intrahepatic biliary duct dilatation. There has been a prior cholecystectomy. PANCREAS: Unremarkable. SPLEEN: The spleen is enlarged measuring up to 18 cm. ADRENAL GLANDS: There is a 1.8 cm low-density right adrenal nodule. KIDNEYS AND URETERS: The kidneys are normal in size, shape, and attenuation. No hydronephrosis, hydroureter, or calculi seen. No perinephric stranding. BLADDER: Unremarkable. GASTROINTESTINAL TRACT: There is been a prior gastric bypass with small bowel dilatation at the enteric anastomosis. There is no evidence for bowel obstruction. The appendix is visualized and is within normal limits. ABDOMINAL WALL: There is a small umbilical hernia containing fat. LYMPH NODES: Normal. VASCULAR: There is atherosclerotic plaque of the abdominal aorta and proximal branches. Splenic varices are noted. PELVIC VISCERA: Unremarkable. OSSEOUS STRUCTURES: There is diffuse thoracolumbar degenerative changes with curvature to the left. CT/CT abdomen pelvis w IV con IMPRESSION: 1. No evidence for bowel obstruction. There has been a prior gastric bypass with small bowel dilatation at the enteric anastomosis. 2. There is a 1.8 cm low-density right adrenal nodule which was seen previously. 3. There is a small right pleural effusion and minimal atelectatic change at the right lung base. 4. Cirrhotic-appearing liver with splenomegaly and splenic varices. Fleischner guidelines were followed. Electronically signed by: Javier Barajas MD 01/04/2024 01:45 AM EDT RP
--- NOTE | 2024-01-03 14:25 | ED.GENADULT ---
HPI - General Adult General Chief complaint: Nausea/Vomiting/Diarrhea Stated complaint: fever-port removal Time Seen by Provider: 01/03/24 17:21 Source: patient Limitations: no limitations History of Present Illness ED Provider: Kyleigh Tejada PA-C HPI narrative: 68-year-old female with a history of dermatomyositis currently admits to IgG therapy, breast cancer on chronic immunosuppressive therapy, vertigo, chronic pancytopenia, hypertension, depression and anxiety, presents with diarrhea x1 day. Associated chills and generalized malaise. Denies preceding cough or cold symptoms no fever. Denies abdominal pain, nausea, vomiting. The patient is on been exposed to sick contacts with similar symptoms. Denies recent hospitalization, travel or use of antibiotics. Related Data Home Medications ?Medication ?Instructions ?Recorded ?Confirmed betamethasone dipropionate 0.05 % 1 appl topical BID PRN 11/28/23 lotion citalopram 20 mg tablet 20 mg PO DAILY 11/28/23 tamoxifen 20 mg tablet 20 mg PO DAILY 11/28/23 Previous Rx's ?Medication ?Instructions ?Recorded alendronate 70 mg tablet 70 mg PO QWEEK #12 tabs 08/19/23 clonidine HCl 0.2 mg tablet 0.2 mg PO BEDTIME anxiety #30 tabs 11/19/23 furosemide 40 mg tablet 40 mg PO DAILY #90 tabs 12/20/23 hydroxychloroquine 200 mg tablet See Rx Instructions PO .COMPLEX 12/20/23 #48 tabs Allergies Allergy/AdvReac Type Severity Reaction Status Date / Time No Known Allergies Allergy Verified 01/03/24 14:29 Review of Systems Review of Systems: Yes all other systems are reviewed and are negative Constitutional: Constitutional: Reports chills, Denies fatigue, Denies fever(s) and Reports malaise Cardiovascular: Cardiovascular: Denies chest pain and Denies dyspnea Respiratory: Respiratory: Denies cough and Denies dyspnea Gastrointestinal: Gastrointestinal: Denies abdominal pain, Reports diarrhea, Denies nausea and Denies vomiting Endocrine: Endocrine: Denies fatigue PMFSH Past Medical History Attestation statement: The following information was validated with the patient. Medical History Acute on chronic heart failure with preserved ejection fraction (HFpEF) Nocturnal cough History of right breast cancer CHF (congestive heart failure) Pleural effusion Axillary adenopathy Bacteremia due to Klebsiella pneumoniae SIRS (systemic inflammatory response syndrome) Acute hypokalemia UTI (urinary tract infection) Abdominal pain Anemia Atrial arrhythmia Acute diastolic (congestive) heart failure Pancytopenia Diarrhea Pancolitis Colitis Nonsustained supraventricular tachycardia Port-A-Cath in place Pain in both feet Pedal edema History of COVID-19 Invasive ductal carcinoma of right breast Breast cancer, right Dermatomyositis Breast calcification, right Encounter to establish care Lumbar degenerative disc disease Hypertension Major depression, chronic Insomnia Anxiety Surgical History Hx of colonoscopy Status post right breast lumpectomy History of arthroscopic knee surgery History of hysterectomy History of section History of cholecystectomy History of gastric bypass History of fusion of cervical spine History of tonsillectomy Family History Family History Mother No problems noted. Father Breast cancer Bone cancer Brother Substance use disorder Paternal Aunt Breast cancer Social History Social History Household Members: Significant Other, Family and Children Housing: House Are you a primary account executive healthcare to a significant other at home: No Do you presently have visiting nurse or other home services: Yes ([facility]) Alcohol intake: former Comment: Pedal Edema and pain- uses cane Patient Tobacco Use Status: Former Tobacco user Tobacco use type: Cigarette Smoked in Last 30 Days: No e-Cigarette/Vaping Use: Never Used Second Hand Smoke Exposure: Yes Use of substances other than those prescribed or required for medical reasons: No Advance Directives: Yes Advance Directives Information Provided: Yes Advance Directives on File: No Advance Directives Date on File: 11/28/21 service: No Current occupational status: unemployed and retired Cognitive needs: No Hearing needs: No Vision needs: Yes (glasses) Physical Exam ED Vital Signs: Vital Signs - 24 hr 01/03/24 14:27 01/03/24 17:35 01/03/24 20:55 Temperature 97.8 F 97.8 F 98.4 F Pulse Rate 79 73 73 Respiratory Rate 18 18 14 Blood Pressure 148/59 H 138/71 137/57 L Pulse Oximetry 98 99 97 Oxygen Delivery Method Room Air Room Air Room Air 01/03/24 22:37 01/03/24 22:54 Temperature 98.3 F 98.0 F Pulse Rate 74 79 Respiratory Rate 16 22 H Blood Pressure 151/59 H 137/53 L Pulse Oximetry 98 95 Oxygen Delivery Method Room Air Room Air BMI result Body Mass Index 27.8 Const Other: Alert, overall well appearing Orientation/consciousness: patient oriented x3 Resp Other: Non labored respirations Cardio Other: Normal peripheral perfusion GI Other: Abdomen is soft, distended, tense, no guarding Skin Other: Warm dry no rash Neuro General: patient oriented x3, no focal motor deficits and CN's II-XI intact bilaterally Psych Other: Calm cooperative Course Course Course Narrative: Patient is a 68-year-old female who presents to the emergency department for evaluation. She states that 2 days ago she had her port accessed receives IVIG infusion. Yesterday she began experiencing Tactile fever, chills, nausea, diarrhea, generalized weakness. She called the infusion center today, they were not able to see her for her appointment or to remove the port access due to her symptoms and she was advised to come to the emergency department for evaluation. Plan: Serum labs, viral serologies Received call from lab regarding critical hypokalemia 2.8, order for ECG ordered, wire charger made aware Medications Administered Discontinued Medications Generic Name Dose Route Start Last Admin Trade Name Freq PRN Reason Stop Dose Admin Diatrizoate Meglum/Diatrizoate Sod 30 ml 01/03/24 19:23 01/03/24 19:23 Diatrizoate Meglumine, Sodium 30 Ml Solution PO 01/03/24 19:24 30 ml ONCE ONE Administration Potassium Chloride 40 meq in 100 mls @ 100 mls/hr 01/03/24 17:28 01/03/24 19:15 Potassium Chloride/H20 IV 01/03/24 18:27 Infused ONCE ONE Infusion Iohexol 85 ml 01/03/24 21:35 01/03/24 21:36 Iohexol 350 Mg/Ml 100 Ml Infus..Btl IV 01/03/24 21:36 85 ml ONCE ONE Administration Ondansetron HCl 4 mg 01/03/24 17:28 01/03/24 18:03 Ondansetron Hcl 4 Mg/2 Ml Vial IVPUSH 01/03/24 17:29 4 mg ONCE ONE Administration Potassium Chloride 40 meq 01/03/24 17:28 10/25/24 18:03 Potassium Chloride Packet 20 Meq Packet PO 01/03/24 17:29 40 meq ONCE ONE Administration Medical Decision Making Medical Decision Making MDM Narrative: 68-year-old female with a history of dermatomyositis currently admits to IgG therapy, breast cancer on chronic immunosuppressive therapy, vertigo, chronic pancytopenia, hypertension, depression and anxiety, presents with diarrhea x1 day. Associated chills and generalized malaise. Denies preceding cough or cold symptoms no fever. Denies abdominal pain, nausea, vomiting. The patient is on been exposed to sick contacts with similar symptoms. Denies recent hospitalization, travel or use of antibiotics. Problem: Age, immunosuppression, pancytopenia History: Per patient I have considered the following differential diagnoses: Metastatic disease process, bowel obstruction, viral gastroenteritis, diverticulitis, C diff Plan: This could be viral gastroenteritis, such illness has been prevalent within the community. However, given objective distention of the abdomen, I am concerned for potential obstruction. Perhaps she has metastatic disease. We will obtain a CT scan. Screening labs were completed including a viral panel from triage. She also has hypokalemia, we will give 40 mEq IV and 40 mEq oral. To note, she does not have any risk factors for C diff. I have independently reviewed the following tests: Labs: Pancytopenia, potassium 2.8, no additional electrolyte abnormalities, viral panel negative CT abdomen and pelvis:CT ABDOMEN AND PELVIS WITH CONTRAST CLINICAL INFORMATION: Pain. Concern for small bowel obstruction. COMPARISON: Feb 04, 2022. TECHNIQUE: Multidetector volumetric images were obtained from the superior aspect of the liver through the pubic symphysis following administration 85 mL of Omnipaque 350 intravenous contrast. Sagittal and coronal reformatted images were obtained on the technologist's workstation. Oral contrast: No This CT examination was performed using dose optimization techniques as appropriate, variously including the following: *Automated exposure control *Adjustment of mA and/or kV according to patient size (this includes techniques or standardized protocols for targeted exams where dose is matched to indication/reason for exam; i.e. extremities or head) *Use of iterative reconstruction technique DLP: 528 mGy-cm FINDINGS: LUNG BASES: There is a small right pleural effusion and minimal atelectatic change at the right lung base. LIVER, GALLBLADDER, AND BILIARY TREE: The liver is irregular in contour. No focal liver lesions are seen. There is no acute intrahepatic biliary duct dilatation. There has been a prior cholecystectomy. PANCREAS: Unremarkable. SPLEEN: The spleen is enlarged measuring up to 18 cm. ADRENAL GLANDS: There is a 1.8 cm low-density right adrenal nodule. KIDNEYS AND URETERS: The kidneys are normal in size, shape, and attenuation. No hydronephrosis, hydroureter, or calculi seen. No perinephric stranding. BLADDER: Unremarkable. GASTROINTESTINAL TRACT: There is been a prior gastric bypass with small bowel dilatation at the enteric anastomosis. There is no evidence for bowel obstruction. The appendix is visualized and is within normal limits. ABDOMINAL WALL: There is a small umbilical hernia containing fat. LYMPH NODES: Normal. VASCULAR: There is atherosclerotic plaque of the abdominal aorta and proximal branches. Splenic varices are noted. PELVIC VISCERA: Unremarkable. OSSEOUS STRUCTURES: There is diffuse thoracolumbar degenerative changes with curvature to the left. CT/CT abdomen pelvis w IV con IMPRESSION: 1. No evidence for bowel obstruction. There has been a prior gastric bypass with small bowel dilatation at the enteric anastomosis. 2. There is a 1.8 cm low-density right adrenal nodule which was seen previously. 3. There is a small right pleural effusion and minimal atelectatic change at the right lung base. 4. Cirrhotic-appearing liver with splenomegaly and splenic varices. Fleischner guidelines were followed. Electronically signed by: Javier Barajas MD 01/04/2024 01:45 AM EDT Lab Data 01/03/24 15:26 01/03/24 15:26 Labs: Lab Results 01/03/24 01/03/24 01/03/24 Range/Units 15:22 15:26 21:26 WBC 2.7 L (4.8-10.8) X10*3/uL RBC 3.60 L (4.20-5.50) X10*6/uL Hgb 10.3 L (12.0-16.0) g/dl Hct 30.7 L (37.0-47.0) % MCV 85.3 (80.0-98.0) fL MCH 28.6 (27.0-33.0) pg MCHC 33.6 (31.0-35.0) g/dl RDW 16.0 (11.0-16.0) % Plt Count 62 L (160-400) X10*3/uL MPV 10.3 (9.4-12.3) fL Immature Gran % (Auto) 0.0 (0.0-0.4) % Neut % (Auto) 76.3 H (45-73) % Lymph % (Auto) 12.0 L (20-40) % Ross % (Auto) 10.6 (2-11) % Eos % (Auto) 0.4 (0-4) % Baso % (Auto) 0.7 (0-2) % Lymph # (Auto) 0.3 L (1.2-4.9) X10*3/uL Ross # (Auto) 0.3 (0.1-1.2) X10*3/uL Eos # (Auto) 0.0 (0.0-0.4) X10*3/uL Baso # (Auto) 0.0 (0.0-0.2) X10*3/uL Abs Immat Gran (auto) 0.00 (0.00-0.03) X10*3/uL Absolute Neuts (auto) 2.1 (2.0-8.3) x10*3/uL Absolute Nucleated RBC 0.000 (0.0-0.012) X10*3/uL Nucleated RBC % (auto) 0.0 (0.0-0.2) /100WBC Sodium 140 (135-145) mmol/L Potassium 2.8 L* (3.3-5.1) mmol/L Chloride 109 H (96-108) mmol/L Carbon Dioxide 24 (22-29) mmol/L Anion Gap 10 L (12-20) BUN 15 (9-16) mg/dL Creatinine 0.87 (0.5-1.4) mg/dL Estim Creat Clear Calc 60.1 Estimated GFR > 60 Random Glucose 133 H (60-115) mg/dL Calcium 8.4 (8.4-10.2) mg/dL Magnesium 2.0 (1.6-2.6) mg/dL Total Bilirubin 0.9 (0.0-1.0) mg/dL AST 27 (5-31) U/L ALT 11 (0-31) U/L Alkaline Phosphatase 55 (39-117) U/L Total Protein 6.9 (6.5-8.0) g/dL Albumin 3.1 L (3.5-5.0) g/dL Lipase 20 (8-78) U/L Urine Color Yellow Urine Appearance Clear Urine pH 6.5 (5.0-9.0) Ur Specific [place] <= 1.005 (1.005-1.025) Urine Protein Negative (Neg-Trace) mg/dL Urine Glucose (UA) Negative (Negative) mg/dL Urine Ketones Negative (Negative) mg/dL Urine Blood Negative (Negative) Urine Nitrite Negative (Negative) Ur Leukocyte Esterase Negative (Negative) Influenza Type A (PCR) NEGATIVE (Negative) Influenza Type B (PCR) NEGATIVE (Negative) RSV RNA Qual (PCR) NEGATIVE (Negative) SARS-CoV-2 RNA (RT-PCR) NEGATIVE (Negative) Discharge Plan Discharge Clinical Impression: Diarrhea, Pancytopenia, Cirrhosis, Splenic varices Patient Disposition: Home, Self-Care Instructions: Cirrhosis (ED), Acute Diarrhea (ED), Pancytopenia (DC) Additional Instructions: In regard to your blood counts, your white blood cells, red blood cells and platelets are all low; to note they have been chronically below normal. In regard to the diarrhea, this is likely viral, see home care instructions. You can use [id number] Imodium if need be. On the CT scan, you were incidentally found to have cirrhosis, with enlarged vasculature associated with your spleen; they are called splenic varices. Having said that, your liver function tests were normal. You need to follow up with a java developer analyst, I would call Saturday to make an appointment with your primary care so that they can place a consult for you. Prescriptions: No Action alendronate 70 mg tablet 70 mg PO QWEEK Qty: 12 2RF clonidine HCl 0.2 mg tablet 0.2 mg PO BEDTIME Qty: 30 1RF furosemide 40 mg tablet 40 mg PO DAILY Qty: 90 3RF hydroxychloroquine 200 mg tablet See Rx Instructions PO .COMPLEX Qty: 48 2RF Rx Instructions: Take 2 tabs daily x5 days a week and 1 tab daily x2 days a week betamethasone dipropionate 0.05 % lotion 1 appl topical BID PRN citalopram 20 mg tablet 20 mg PO DAILY Rx Instructions: Take 20 mg p.o. daily for 1 week. Then go to 40 mg po daily. tamoxifen 20 mg tablet 20 mg PO DAILY Print Language: Malian
[2024-01-03 14:27] VITALS: BP 148/59; PULSE 79; RESP 18; TEMP 36.6; O2SAT 98; BMI 27.8
[2024-01-03 15:32] LABS: MANUAL DIFF FLAG NO
[2024-01-03 15:52] LABS: Basophils Percent Auto 0.7 % (0-2); Eosinophils Percent Auto 0.4 % (0-4); Hematocrit 30.7 % (37.0-47.0); Hemoglobin 10.3 g/dl (12.0-16.0); Lymphocytes Absolute Auto 0.3 X10*3/uL (1.2-4.9); Mean Corpuscular HGB Conc 33.6 g/dl (31.0-35.0); Mean Corpuscular Hemoglobin 28.6 pg (27.0-33.0); Mean Corpuscular Volume 85.3 fL (80.0-98.0); Mean Platelet Volume 10.3 fL (9.4-12.3); Monocytes Absolute Auto 0.3 X10*3/uL (0.1-1.2); Monocytes Percent Auto 10.6 % (2-11); Neutrophils Absolute Auto 2.1 x10*3/uL (2.0-8.3); Neutrophils Percent Auto 76.3 % (45-73); White Blood Count 2.7 X10*3/uL (4.8-10.8)
[2024-01-03 15:55] LABS: Platelet Count 62 X10*3/uL (160-400)
--- NOTE | 2024-01-03 15:57 | ECG_ITS ---
Test Reason : HYPOKALEMIA Blood Pressure : / mmHG Vent. Rate : 066 BPM Atrial Rate : 000 BPM P-R Int : 000 ms QRS Dur : 076 ms QT Int : 434 ms P-R-T Axes : 000 049 047 degrees QTc Int : 454 ms Accelerated Junctional rhythm Low voltage QRS Nonspecific ST abnormality Abnormal ECG When compared with ECG of 07-DEC-2022 13:17, Nonspecific T wave abnormality no longer evident in Inferior leads Nonspecific T wave abnormality, improved in Anterolateral leads QT has lengthened Referred By: Dorothea Givens Electronically Signed By:Robb Jean-Baptiste
[2024-01-03 15:58] LABS: Alanine Aminotransferase 11 U/L (0-31); Albumin Level 3.1 g/dL (3.5-5.0); Alkaline Phosphatase 55 U/L (39-117); Anion Gap 10 (12-20); Aspartate Amino Transferase 27 U/L (5-31); Bilirubin Total 0.9 mg/dL (0.0-1.0); Blood Urea Nitrogen 15 mg/dL (9-16); Calcium 8.4 mg/dL (8.4-10.2); Carbon Dioxide 24 mmol/L (22-29); Chloride 109 mmol/L (96-108); Creatinine Clr Calc Pharmacy 60.1; Estimated Glomerular Filt Rate > 60; Glucose Random 133 mg/dL (60-115); Lipase 20 U/L (8-78); Potassium 2.8 mmol/L (3.3-5.1); Sodium 140 mmol/L (135-145); Total Protein 6.9 g/dL (6.5-8.0)
[2024-01-03 16:22] LABS: Influenza A PCR NEGATIVE (Negative); Influenza B PCR NEGATIVE (Negative); Resp Syncy Virus RNA Qual PCR NEGATIVE (Negative); SARS COV2 PCR INHOUSE NEGATIVE (Negative)
[2024-01-03 17:35] VITALS: BP 138/71; PULSE 73; RESP 18; TEMP 36.6; O2SAT 99
[2024-01-03] MEDS: ondansetron HCL 4 MG/2 ML VIAL IVPUSH (18:03)
[2024-01-03] MEDS: Potassium Chloride Packet 20 MEQ PACKET 40 MEQ PO (18:03)
[2024-01-03] MEDS: Potassium Chloride/H20 40 MEQ/100 ML PIGGYBACK 100 MEQ IV (18:03)
--- NOTE | 2024-01-03 18:14 | PC.NURSE ---
patient a&ox3, groundwater monitoring technician applied, vss, pt has lt chest port previously accessed- iv medications running through port per order, call koehler within reach, will continue to monitor
--- NOTE | 2024-01-03 18:49 | PC.NURSE ---
upon this nurse going to put the patients coupon and bond collection clerk on, this nurse noted the patients abdomen distended and firm, pts family member also took note of this, pt states her abdomen is not normally like this and she is not in pain at this time.
[2024-01-03] MEDS: Diatrizoate Meglumine, Sodium 30 ML SOLUTION PO (19:23)
[2024-01-03 20:55] VITALS: BP 137/57; PULSE 73; RESP 14; TEMP 36.9; O2SAT 97
[2024-01-03] MEDS: iohexoL 350 MG/ML 100 ML INFUS..BTL 85 ML IV (21:36)
[2024-01-03 21:37] LABS: Appearance Urine Clear; Color Urine Yellow; Glucose Urine UA Negative (Negative); Leukocyte Esterase Urine Negative (Negative); Nitrite Urine Negative (Negative); PH 6.5 (5.0-9.0); Specific Gravity - Urine <= 1.005 (1.005-1.025); Urine Blood Negative (Negative); Urine Ketones Negative (Negative); Urine Protein Negative (Neg-Trace)
[2024-01-03 22:37] VITALS: BP 151/59; PULSE 74; RESP 16; TEMP 36.8; O2SAT 98
--- NOTE | 2024-01-03 22:37 | PC.NURSE ---
pt became sinus tachy on monitor, reports feeling heart race/palpitations. lasted approx 30 sec-1 min. now normal sinus, denies cp/sob. Bhavani MIRELES made aware. vitals as documented.
[2024-01-03 22:54] VITALS: BP 137/53; PULSE 79; RESP 22; TEMP 36.7; O2SAT 95
[2024-01-04] MEDS: Heparin Sodium,Porcine Flush 50 UNITS, 0.9 % Sodium Chloride Flush 5 ML IVFLUSH (02:42)
[2024-01-04 03:33] VITALS: BP 137/53; PULSE 79; RESP 20; TEMP 36.7; O2SAT 95
--- NOTE | 2024-01-04 03:33 | PC.NURSE ---
heparin requested by pt to flush chest port prior to deaccessing. heparin given per mar and chest port deaccessed.
== END 2024-01-04 03:34 | disposition home or self-care (01) ==
PROVIDERS: Nurse Practitioner Family; Emergency Provider Emergency Medicine Emergency Medical Services
DX: D61.818 Other pancytopenia (principal); I86.8 Varicose veins of other specified sites; R11.2 Nausea with vomiting, unspecified; R50.9 Fever, unspecified; R53.1 Weakness; K74.60 Unspecified cirrhosis of liver; Z03.818 Encounter for observation for suspected exposure to other biological agents ruled out; Z79.899 Other long term (current) drug therapy
CPT/HCPCS: 0241U; 36415; 74177; 80053; 81003; 83690; 83735; 85025; 93005; 96365; 96375; 99285; J1642; J2405; J3480; Q9967

== ENCOUNTER → 2024-01-03 15:57 | Outpatient (BNV) | payer MEDICARE, SELFPAY | PROVIDERS: Emergency Provider Emergency Medicine Emergency Medical Services; Visit Provider Internal Medicine Cardiovascular Disease | DX: R94.31 Abnormal electrocardiogram [ECG] [EKG] (principal) | CPT/HCPCS: 93010 ==

== ENCOUNTER 2024-01-27 08:00 | Outpatient (RCR) | payer MEDICARE, SELFPAY ==
--- NOTE | 2023-11-21 13:47 | MHC.PT.EP ---
[facility] [place] [facility] [place] [facility] [place] [facility] [address] Yi Mcdowell [address] [phone] F: [phone] F: [phone] F: [phone] F: [phone] Physical Therapy Plan of Care Date of Evaluation: 11/21/23 Date of Surgery: Diagnosis: bilateral leg weakness. Assessment: Patient is a 68 year old L handed male who presents with s/s consistent with bilateral LE weakness, LE pain. 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 Patient past medical history is complex and includes cervical fusion, dermatomyositis. Current impairments include pain, posture, ROM, gait mechanics, balance, strength, activity tolerance and functional mobility. Functional limitations include decreased ability to stand, walk, transfer, negotiate stairs, dress, squat and maneuver home environment. Patient is motivated with good rehab potential. Skilled PT will address impairments and functional limitations in order to achieve goals. Frequency and Duration: The patient will be seen 2x/week for 5 weeks Short Term Goals: I with HEP - 2 weeks Sit <> stand 5x in 30 seconds - 3 weeks knee AROM 0-120 - 3 weeks Realtime Reporter Goals: sit <> stand 8x in 30 seconds - 5 weeks LE strength 4/5 grossly - 5 weeks LEFS 28/80 - 5 weeks Treatment Plan: Modalities to reduce pain, spasms and effusion. Manual therapy to restore motion and function. Therapeutic exercise to improve strength and flexibility. Neuromuscular re-education for posture and balance. Therapeutic activities to return to functional activities of daily living. Electronically signed by: Víctor Dc, PT Please sign and return to therapist. Thank you for your referral.
--- NOTE | 2024-05-29 07:54 | MHC.PT.DC ---
[facility] [place] [facility] [place] [facility] [address] Yi Mcdowell [address] [phone] F: [phone] F: [phone] F: [phone] F: [phone] Physical Therapy Discharge Report Diagnosis: bilateral leg weakness. Date of Surgery: Date of Evaluation: 11/21/23 Date of Discharge: 02/29/24 Treatments to Date: 13 Cancellations to Date: No Shows to Date: Discharge Status: Independent with HEP Patient Elected to Stop Discharge Summary: 01/27/24: pt progress still. less pain overall. pt motivated and continues to work on stairs at home but still with fairly poorly mechanics here and poor eccentric control 01/20/24: pt progressing well with skilled PT. no HH assist with L LE step up. Required with R LE step up. educated in importance of HEP for hips strength moving foward as we taper to 1x/week. 01/13/24: reduced pain with program. still requires HH assist on stairs. still with quad/hip weakness impacting functional mobility and transfers. 01/08; Pt challenged with foam balance exs. Pt unable to use resistance with SAQ due to increased crunching. 12/30/23: added TRX squats to program. no adverse reactions. cues given for reduced valgus. continue to progress as tolerated. 12/26/23: pt progressing well. improving STS mechanics. some discomfort with rocker board m/l. otherwise no adverse reactions. 12/19/23: no cues required to maintain alignment on stepper. brace fit on with compression sleeve - size G coverflex sales support consultant. no adverse reactions. 12/16/23: pt progressing well with skilled PT for strength. she does have significant RLE strength impairment likely exacerbated by extremely mechanical valgus. 12/11; Pt c/o crunching. Pt fatigued after hip exs. 12/09/23: pt progressing with stairs. discussed different braces to reduce valgus progression at length. progress as tolerated. 12/02/23: improved tolerance today after taping. assess response and progress as tolerated. 11/28/23: pt progressing well with skilled PT. no adverse reactions. SAQ painful on R with crunching . 11/25/23: pt progressed with strength. issued hEP. assess response and progress as tolerated. edu on reduce valgus given. Patient is a 68 year old L handed male who presents with s/s consistent with bilateral LE weakness, LE pain. 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 Patient past medical history is complex and includes cervical fusion, dermatomyositis. Current impairments include pain, posture, ROM, gait mechanics, balance, strength, activity tolerance and functional mobility. Functional limitations include decreased ability to stand, walk, transfer, negotiate stairs, dress, squat and maneuver home environment. Patient is motivated with good rehab potential. Skilled PT will address impairments and functional limitations in order to achieve goals. Electronically signed by: Víctor Dc, PT Please sign and return to therapist. Thank you for your referral.
== END 2024-05-29 07:56 | disposition home or self-care (01) ==
LOC: HO.PTCHIC 08:00
PROVIDERS: PCP Internal Medicine; Visit Provider Student in an Organized Health Care Education/Training Program
DX: R29.898 Other symptoms and signs involving the musculoskeletal system (principal)
CPT/HCPCS: 97110; 97112; 97140; 97163; 97530

== ENCOUNTER 2024-01-30 08:00 | Outpatient (RCR) | payer MEDICARE, SELFPAY ==
[2023-07-04] VITALS (8 sets, daily range): BP systolic 107–135; BP diastolic 47–67; PULSE 60–72; RESP 18; TEMP 36.3
[2023-07-04] MEDS: Immun Glob G(IgG)/Gly/IGA Ov50 100 ML IV (08:04)
[2023-07-04] MEDS: Immun Glob G(IgG)/Gly/IGA Ov50 300 ML IV ×2 (09:19→10:45)
[2023-07-04] MEDS: 0.9 % Sodium Chloride Flush 10 ML SYRINGE 5 ML IVFLUSH (11:47)
[2023-07-04] MEDS: Heparin Sodium,Porcine Flush 50 UNITS/5 ML SYRINGE IVFLUSH (11:47)
[2023-07-05] VITALS (10 sets, daily range): BP systolic 101–129; BP diastolic 46–66; PULSE 52–66; RESP 18; TEMP 36.8
[2023-07-05] MEDS: Immun Glob G(IgG)/Gly/IGA Ov50 100 ML IV (08:03)
[2023-07-05] MEDS: Immun Glob G(IgG)/Gly/IGA Ov50 300 ML IV ×2 (09:21→10:42)
[2023-07-05] MEDS: 0.9 % Sodium Chloride Flush 10 ML SYRINGE 5 ML IVFLUSH (11:52)
[2023-07-05] MEDS: Heparin Sodium,Porcine Flush 500 UNIT/5 ML SYRINGE IVFLUSH (12:05)
[2023-08-06] VITALS (12 sets, daily range): BP systolic 103–161; BP diastolic 48–67; PULSE 57–72; RESP 16–20; TEMP 36.4; O2SAT 98
[2023-08-06] MEDS: Immun Glob G(IgG)/Gly/IGA Ov50 100 ML IV (08:30)
[2023-08-06] MEDS: Immun Glob G(IgG)/Gly/IGA Ov50 300 ML IV ×2 (09:54→11:30)
[2023-08-06] MEDS: 0.9 % Sodium Chloride Flush 10 ML SYRINGE 5 ML IVFLUSH (12:37)
[2023-08-06] MEDS: Heparin Sodium,Porcine Flush 50 UNITS/5 ML SYRINGE IVFLUSH (12:38)
[2023-08-07] VITALS (11 sets, daily range): BP systolic 100–137; BP diastolic 45–87; PULSE 58–70; RESP 16–20; TEMP 36.5; O2SAT 100
[2023-08-07] MEDS: 0.9 % Sodium Chloride Flush 10 ML SYRINGE 5 ML IVFLUSH (08:18)
[2023-08-07] MEDS: Immun Glob G(IgG)/Gly/IGA Ov50 100 ML IV (08:19)
[2023-08-07] MEDS: Immun Glob G(IgG)/Gly/IGA Ov50 300 ML IV ×2 (09:35→11:00)
[2023-08-07] MEDS: Heparin Sodium,Porcine Flush 500 UNIT/5 ML SYRINGE IVFLUSH (12:02)
[2023-09-03] VITALS (11 sets, daily range): BP systolic 103–140; BP diastolic 48–70; PULSE 52–72; RESP 16–20; TEMP 36.4; O2SAT 100
[2023-09-03] MEDS: Immun Glob G(IgG)/Gly/IGA Ov50 100 ML IV (08:14)
[2023-09-03] MEDS: Immun Glob G(IgG)/Gly/IGA Ov50 300 ML IV ×2 (09:29→10:52)
[2023-09-03] MEDS: 0.9 % Sodium Chloride Flush 10 ML SYRINGE 5 ML IVFLUSH (11:51)
[2023-09-03] MEDS: Heparin Sodium,Porcine Flush 50 UNITS/5 ML SYRINGE IVFLUSH (11:51)
[2023-09-04] VITALS (10 sets, daily range): BP systolic 102–134; BP diastolic 48–68; PULSE 54–67; RESP 18–20; TEMP 37.1; O2SAT 99
[2023-09-04] MEDS: Immun Glob G(IgG)/Gly/IGA Ov50 100 ML IV (09:36)
[2023-09-04] MEDS: Immun Glob G(IgG)/Gly/IGA Ov50 300 ML IV ×2 (11:01→12:26)
[2023-09-04] MEDS: Heparin Sodium,Porcine Flush 500 UNIT/5 ML SYRINGE IVFLUSH (13:21)
[2023-10-07] VITALS (9 sets, daily range): BP systolic 107–124; BP diastolic 50–59; PULSE 54–69; RESP 14; TEMP 37.1; O2SAT 100
--- NOTE | 2023-10-07 08:35 | HO.INF ---
0800 am- labs drawn by kimberlee gross- without difficulties, as per protocal
[2023-10-07] MEDS: Immun Glob G(IgG)/Gly/IGA Ov50 100 ML IV (08:37)
[2023-10-07 08:44] LABS: Basophils Percent Auto 0.6 % (0-2); Eosinophils Absolute Auto 0.1 X10*3/uL (0.0-0.4); Eosinophils Percent Auto 4.3 % (0-4); Hematocrit 30.2 % (37.0-47.0); Hemoglobin 10.1 g/dl (12.0-16.0); Lymphocytes Absolute Auto 0.3 X10*3/uL (1.2-4.9); Lymphocytes Percent Auto 18.4 % (20-40); MANUAL DIFF FLAG SCAN; Mean Corpuscular HGB Conc 33.4 g/dl (31.0-35.0); Mean Corpuscular Hemoglobin 30.3 pg (27.0-33.0); Mean Corpuscular Volume 90.7 fL (80.0-98.0); Monocytes Absolute Auto 0.3 X10*3/uL (0.1-1.2); Monocytes Percent Auto 15.3 % (2-11); Neutrophils Percent Auto 61.4 % (45-73); Platelet Count 70 X10*3/uL (160-400); Red Blood Count 3.33 X10*6/uL (4.20-5.50); Red Cell Distribution Width 14.1 % (11.0-16.0); SCAN SMEAR FLAG 1; White Blood Count 1.6 X10*3/uL (4.8-10.8)
[2023-10-07 08:56] LABS: Alanine Aminotransferase 10 U/L (0-31); Albumin Level 3.3 g/dL (3.5-5.0); Alkaline Phosphatase 59 U/L (39-117); Anion Gap 12 (12-20); Aspartate Amino Transferase 19 U/L (5-31); Bilirubin Total 0.6 mg/dL (0.0-1.0); Blood Urea Nitrogen 18 mg/dL (9-16); Calcium 8.5 mg/dL (8.4-10.2); Carbon Dioxide 26 mmol/L (22-29); Chloride 108 mmol/L (96-108); Estimated Glomerular Filt Rate > 60; Glucose Random 87 mg/dL (60-115); Potassium 3.6 mmol/L (3.3-5.1); Sodium 142 mmol/L (135-145); Total Protein 5.9 g/dL (6.5-8.0)
[2023-10-07 09:19] LABS: SLIDE REVIEW VERIFIED
[2023-10-07] MEDS: Immun Glob G(IgG)/Gly/IGA Ov50 300 ML IV ×2 (09:44→11:09)
[2023-10-07] MEDS: 0.9 % Sodium Chloride Flush 10 ML SYRINGE 5 ML IVFLUSH (12:14)
[2023-10-07] MEDS: Heparin Sodium,Porcine Flush 50 UNITS/5 ML SYRINGE IVFLUSH (12:15)
[2023-10-09] VITALS (9 sets, daily range): BP systolic 110–128; BP diastolic 45–72; PULSE 53–61; RESP 14; TEMP 36.9; O2SAT 99
[2023-10-09] MEDS: Immun Glob G(IgG)/Gly/IGA Ov50 100 ML IV (08:08)
[2023-10-09] MEDS: Immun Glob G(IgG)/Gly/IGA Ov50 300 ML IV ×2 (09:20→10:45)
[2023-10-09] MEDS: 0.9 % Sodium Chloride Flush 10 ML SYRINGE 5 ML IVFLUSH (11:49)
[2023-10-09] MEDS: Heparin Sodium,Porcine Flush 500 UNIT/5 ML SYRINGE IVFLUSH (11:49)
[2023-11-06] VITALS (10 sets, daily range): BP systolic 112–131; BP diastolic 43–68; PULSE 62–70; RESP 18–20; TEMP 37.3; O2SAT 97
[2023-11-06] MEDS: GAMMAGARD IV ×2 (08:25→10:49)
[2023-11-06] MEDS: IMMUNE GLOBULIN 10% IV ×2 (08:25→10:49)
[2023-11-06] MEDS: Heparin Sodium,Porcine Flush 50 UNITS/5 ML SYRINGE IVFLUSH (11:50)
[2023-11-07] VITALS (9 sets, daily range): BP systolic 115–130; BP diastolic 52–64; PULSE 59–70; RESP 16–18; TEMP 36.1
[2023-11-07] MEDS: GAMMAGARD IV ×2 (08:04→10:25)
[2023-11-07] MEDS: IMMUNE GLOBULIN 10% IV ×2 (08:04→10:25)
[2023-11-07] MEDS: Heparin Sodium,Porcine Flush 500 UNIT/5 ML SYRINGE IVFLUSH (11:28)
[2023-12-05] VITALS (10 sets, daily range): BP systolic 102–142; BP diastolic 41–60; PULSE 61–69; RESP 14–20; TEMP 37.1; O2SAT 98
[2023-12-05] MEDS: 0.9 % Sodium Chloride Flush 10 ML SYRINGE 5 ML IVFLUSH ×2 (08:10→11:33)
[2023-12-05] MEDS: IMMUNE GLOBULIN 10% IV ×2 (08:15→10:31)
[2023-12-05] MEDS: GAMMAGARD IV ×2 (08:15→10:31)
[2023-12-05] MEDS: Heparin Sodium,Porcine Flush 50 UNITS/5 ML SYRINGE IVFLUSH (11:33)
[2023-12-06] VITALS (10 sets, daily range): BP systolic 101–129; BP diastolic 49–70; PULSE 60–68; RESP 16–20; TEMP 37.6; O2SAT 99
[2023-12-06] MEDS: Immune Globulin 10% Gammagard 200 ML IV ×3 (07:50→10:24)
[2023-12-06] MEDS: 0.9 % Sodium Chloride Flush 10 ML SYRINGE 5 ML IVFLUSH (07:50)
[2023-12-06] MEDS: Heparin Sodium,Porcine Flush 500 UNIT/5 ML SYRINGE IVFLUSH (11:09)
[2024-01-02] VITALS (9 sets, daily range): BP systolic 105–121; BP diastolic 52–62; PULSE 61–76; RESP 16–18; TEMP 37.2
[2024-01-02] MEDS: Immune Globulin 10% Gammagard 200 ML IV ×3 (08:09→10:42)
[2024-01-02] MEDS: 0.9 % Sodium Chloride Flush 10 ML SYRINGE 5 ML IVFLUSH (11:26)
[2024-01-02] MEDS: Heparin Sodium,Porcine Flush 50 UNITS/5 ML SYRINGE IVFLUSH (11:27)
[2024-01-29] VITALS (9 sets, daily range): BP systolic 98–126; BP diastolic 41–61; PULSE 57–68; RESP 16; TEMP 37; O2SAT 99
[2024-01-29] MEDS: Immune Globulin 10% Gammagard 200 ML IV ×3 (08:24→11:04)
[2024-01-29] MEDS: Heparin Sodium,Porcine Flush 50 UNITS/5 ML SYRINGE IVFLUSH (11:44)
[2024-01-30] VITALS (8 sets, daily range): BP systolic 101–144; BP diastolic 45–73; PULSE 58–74; RESP 16–18; TEMP 36.8
[2024-01-30] MEDS: Immune Globulin 10% Gammagard 200 ML IV ×3 (08:08→10:41)
[2024-01-30] MEDS: Heparin Sodium,Porcine Flush 500 UNIT/5 ML SYRINGE IVFLUSH (11:27)
== END 2024-02-17 14:04 | disposition home or self-care (01) ==
LOC: HO.INF 08:00
PROVIDERS: Internal Medicine Medical Oncology; Visit Provider Internal Medicine Rheumatology
DX: M33.90 Dermatopolymyositis, unspecified, organ involvement unspecified (principal)
CPT/HCPCS: 36415; 80053; 85025; 96365; 96366; J1569; J1642

== ENCOUNTER 2024-02-04 15:32 | Outpatient (AMB) | payer MEDICARE, SELFPAY ==
[2024-02-04 15:35] VITALS: BP 116/74; PULSE 79; O2SAT 95; BMI 29.1
--- NOTE | 2024-02-04 15:35 | A.OFFVIS_ITS ---
Vital Signs 3 02/04/24 15:35 Height 5 ft 3 in Weight 164 lb 0.383 oz BMI 29.1 BP 116/74 Blood Pressure Location Lt brachial Position Sitting Pulse 79 Pulse Source Pulse Oximeter Pulse Oximetry (%) 95 Oxygen Delivery Method Room Air Intake Visit Reasons: Rash Intake Note: Patient is here with concern of rash over a week ago, had IV/IG treatment last week, she has had blood in her underwear, very itchy all over, usually on chest or back, but this time spread all over, she never had it this bad. Allergies No Known Allergies Allergy (Verified 02/04/24 15:39) Medication List - Last Reconciled 02/04/24 by Kasandra Pinto MD alendronate 70 mg PO QWEEK citalopram 20 mg PO DAILY citalopram 20 mg PO DAILY clonidine HCl 0.2 mg PO BEDTIME furosemide 40 mg PO DAILY furosemide mg PO tamoxifen 20 mg PO DAILY vitamins A,C,T-hhyq-hkbayq 4,296 mcg-226 mg-90 mg (PreserVision AREDS) 1 cap PO BID HPI Comments Details: Patient is a 69-year-old female with heart failure with preserved ejection fraction, chronic major depression, hypertension, anxiety, and history of breast cancer currently being followed up for dermatomyositis with Dr. Dior. Here today for an urgent visit for whole-body rash. Patient with Tif 1 gamma positive antibody dermatomyositis Found to have breast cancer in 2021. Patient last seen 12/04/2023. At that time she had started PT, had gone to 3 sessions, but stating that her muscle weakness is about the same. Receiving IVIG 2 grams/kilogram every 4 weeks. Azathioprine was recently discontinued She was started on hydroxychloroquine at that visit. Last IVIG was 1 week ago Started plaquenil 2 weeks ago When compared to her dermato rash she feels this is more volatile meaning to was restricted to her chest and face but not so spread out. She feels the rash extends to her labia. Muscle weakness is not worse Of note she also reports worsening shortness of breath [facility] Medical History Acute on chronic heart failure with preserved ejection fraction (HFpEF) Nocturnal cough History of right breast cancer CHF (congestive heart failure) Pleural effusion Axillary adenopathy Bacteremia due to Klebsiella pneumoniae SIRS (systemic inflammatory response syndrome) Acute hypokalemia UTI (urinary tract infection) Abdominal pain Anemia Atrial arrhythmia Acute diastolic (congestive) heart failure Pancytopenia Diarrhea Pancolitis Colitis Nonsustained supraventricular tachycardia Port-A-Cath in place Pain in both feet Pedal edema History of COVID-19 Invasive ductal carcinoma of right breast Breast cancer, right Dermatomyositis Breast calcification, right Encounter to establish care Lumbar degenerative disc disease Hypertension Major depression, chronic Insomnia Anxiety Surgical History Hx of colonoscopy Status post right breast lumpectomy History of arthroscopic knee surgery History of hysterectomy History of section History of cholecystectomy History of gastric bypass History of fusion of cervical spine History of tonsillectomy Family History Mother No problems noted. Father Breast cancer Bone cancer Brother Substance use disorder Paternal Aunt Breast cancer Social History Household Members: Significant Other, Family and Children Housing: House Are you a primary physician assistant primary care to a significant other at home: No Do you presently have visiting nurse or other home services: Yes ([facility]) Alcohol intake: former Comment: Pedal Edema and pain- uses cane Patient Tobacco Use Status: Former Tobacco user Tobacco use type: Cigarette e-Cigarette/Vaping Use: Never Used Second Hand Smoke Exposure: Yes Advance Directives Date on File: 11/28/21 service: No Current occupational status: unemployed and retired Cognitive needs: No Hearing needs: No Vision needs: Yes (glasses) Female Reproductive History Menstrual Age of Menarche: 17 Review of Systems Const All systems reviewed & are unremarkable except as noted in HPI and below Physical Exam Vital Signs: Last Vital Signs Pulse 79 02/04/24 15:35 BP 116/74 02/04/24 15:35 Pulse Ox 95 02/04/24 15:35 Oxygen Delivery Method Room Air 02/04/24 15:35 BMI result Body Mass Index 29.1 Patient with erythematous macular rash extending across her upper chest her back all the way down to her gluteal folds. Extending from her shoulders all the way down to her wrists. Her forearm rashes are more papillary. The rash is not raised it is very pruritic. Also involving her face and hairline as well as scalp. Chest overall clear but had some decreased air entry to the right base. Results Reviewed Results Reviewed: CT Chest Abd Pelvis 01/04/24 IMPRESSION: 1. No evidence for bowel obstruction. There has been a prior gastric bypass with small bowel dilatation at the enteric anastomosis. 2. There is a 1.8 cm low-density right adrenal nodule which was seen previously. 3. There is a small right pleural effusion and minimal atelectatic change at the right lung base. 4. Cirrhotic-appearing liver with splenomegaly and splenic varices. Assessment & Plan Assessment & Plan (1) Rash: Code(s): R21 - Rash and other nonspecific skin eruption Plan: #Rash Patient with rash involving her face, upper chest, stomach, bilateral upper extremities, bilateral lower extremities, upper and lower back that is pruritic. Differentials Plaquenil related drug eruption versus flare of her underlying dermatomyositis. The latter is less likely because she just had her IVIG infusion 1 week ago and she does not have any new or worsening of her muscle weakness. She did recently start Plaquenil and this could very well be a drug eruption. Also concerning is her mentioning that she is more and more short of breath and her recent CT scan showed a right-sided. Her chest was clear on examination today though. Plan - Medrol 16 mg for 1 week then 12 mg for 1 week then 8 mg for 1 week then 4 mg for 1 week then stop - Benadryl 50 mg up to 3 times a day for itching - stop Plaquenil - keep follow up visit with Dr. Dior Plan I spent 30 minutes reviewing the record and labs, seeing the patient, discussing the treatment plan and documenting in the medical record Orders: Orders 2 Immunoglobulins,IgG IgA IgM Today L27.0 - Generalized skin eruption due to drugs and medicaments taken internally, T37.8X5A - Adverse effect of other specified systemic anti-infectives and antiparasitics, initial encounter Immunoglobulin E Today L27.0 - Generalized skin eruption due to drugs and medicaments taken internally, T37.8X5A - Adverse effect of other specified systemic anti-infectives and antiparasitics, initial encounter C Reactive Protein Today L27.0 - Generalized skin eruption due to drugs and medicaments taken internally, T37.8X5A - Adverse effect of other specified systemic anti-infectives and antiparasitics, initial encounter Creatine Kinase Total Today L27.0 - Generalized skin eruption due to drugs and medicaments taken internally, T37.8X5A - Adverse effect of other specified systemic anti-infectives and antiparasitics, initial encounter Aldolase Today L27.0 - Generalized skin eruption due to drugs and medicaments taken internally, T37.8X5A - Adverse effect of other specified systemic anti- infectives and antiparasitics, initial encounter Complete Blood Count Auto Diff Today L27.0 - Generalized skin eruption due to drugs and medicaments taken internally, T37.8X5A - Adverse effect of other specified systemic anti-infectives and antiparasitics, initial encounter Comprehensive Met. Panel Today L27.0 - Generalized skin eruption due to drugs and medicaments taken internally, T37.8X5A - Adverse effect of other specified systemic anti-infectives and antiparasitics, initial encounter Erythrocyte Sedimentation Rate Today L27.0 - Generalized skin eruption due to drugs and medicaments taken internally, T37.8X5A - Adverse effect of other specified systemic anti-infectives and antiparasitics, initial encounter Medications: New 2 diphenhydramine HCl (Benadryl Allergy) 50 mg PO TID 14 days PRN 30 tabs 0RF itching T37.8X5A - Adverse effect of other specified systemic anti-infectives and antiparasitics, initial encounter methylprednisolone (Medrol) Take 3 tablets daily for 1 week, then 2 tablets daily for 1 week then 1 tablet daily for 1 week then stop 42 tabs 0RF L27.0 - Generalized skin eruption due to drugs and medicaments taken internally, T37.8X5A - Adverse effect of other specified systemic anti-infectives and antiparasitics, initial encounter methylprednisolone (Medrol) Take 4 tablets daily for 1 week, then 3 tablets daily for 1 week then 2 tablet daily for 1 week then 1 tablet daily for 1 week then stop 4 weeks 70 tabs 0RF L27.0 - Generalized skin eruption due to drugs and medicaments taken internally, T37.8X5A - Adverse effect of other specified systemic anti-infectives and antiparasitics, initial encounter Coding Level of Care Code Est Pt Level 4 (08408) Complex EM visit Add On G2211 Diagnoses Rash R21
== END 2024-02-04 16:15 | disposition home or self-care (01) ==
PROVIDERS: Visit Provider Student in an Organized Health Care Education/Training Program
DX: R21 Rash and other nonspecific skin eruption (principal)
CPT/HCPCS: 99214; G2211

== ENCOUNTER → 2024-02-04 15:32 | Outpatient (BNVA) | payer MEDICARE, SELFPAY | PROVIDERS: Visit Provider Student in an Organized Health Care Education/Training Program | DX: L27.0 Generalized skin eruption due to drugs and medicaments taken internally (principal); T37.8X5A Adverse effect of other specified systemic anti-infectives and antiparasitics, initial encounter; Z79.899 Other long term (current) drug therapy | CPT/HCPCS: 99212 ==

== ENCOUNTER 2024-02-05 08:47 | Outpatient (REF) | payer MEDICARE, SELFPAY ==
[2024-02-05 09:36] LABS: Basophils Percent Auto 0.8 % (0-2); Eosinophils Percent Auto 0.8 % (0-4); Hemoglobin 9.4 g/dl (12.0-16.0); Imm Gran Abs Auto 0.01 X10*3/uL (0.00-0.03); Imm Gran Pct Auto 0.8 % (0.0-0.4); Lymphocytes Absolute Auto 0.3 X10*3/uL (1.2-4.9); MANUAL DIFF FLAG SCAN; Mean Corpuscular HGB Conc 31.3 g/dl (31.0-35.0); Mean Corpuscular Hemoglobin 27.4 pg (27.0-33.0); Mean Corpuscular Volume 87.5 fL (80.0-98.0); Mean Platelet Volume 10.3 fL (9.4-12.3); Monocytes Absolute Auto 0.1 X10*3/uL (0.1-1.2); Monocytes Percent Auto 8.5 % (2-11); Neutrophils Absolute Auto 0.9 x10*3/uL (2.0-8.3); Neutrophils Percent Auto 69.1 % (45-73); Red Blood Count 3.43 X10*6/uL (4.20-5.50); Red Cell Distribution Width 15.2 % (11.0-16.0); SCAN SMEAR FLAG 1
[2024-02-05 09:37] LABS: Platelet Count 68 X10*3/uL (160-400); White Blood Count 1.3 X10*3/uL (4.8-10.8)
[2024-02-05 10:03] LABS: Alanine Aminotransferase 14 U/L (0-31); Albumin Level 3.4 g/dL (3.5-5.0); Alkaline Phosphatase 65 U/L (39-117); Anion Gap 12 (12-20); Aspartate Amino Transferase 35 U/L (5-31); Bilirubin Total 0.5 mg/dL (0.0-1.0); Blood Urea Nitrogen 16 mg/dL (9-16); C Reactive Protein < 0.10 mg/dL (< or = 0.50); Calcium 8.8 mg/dL (8.4-10.2); Carbon Dioxide 26 mmol/L (22-29); Chloride 110 mmol/L (96-108); Estimated Glomerular Filt Rate > 60; Glucose Random 142 mg/dL (60-115); Potassium 3.3 mmol/L (3.3-5.1); Sodium 145 mmol/L (135-145); Total Protein 7.2 g/dL (6.5-8.0)
[2024-02-05 10:15] LABS: Erythrocyte Sedimentation Rate 30 MM/HR (0-20)
[2024-02-05 10:17] LABS: SLIDE REVIEW VERIFIED
[2024-02-07 12:23] LABS: IgA 64 mg/dL (70-320); IgG 2272 mg/dL (600-1540); IgM 67 mg/dL (50-300)
[2024-02-07 13:42] LABS: Immunoglobulin E <2 kU/L (<OR=114)
[2024-02-11 03:43] LABS: Aldolase 3.6 U/L (<=8.1)
== END 2024-02-05 08:48 | disposition home or self-care (01) ==
LOC: HO.LAB 08:47
PROVIDERS: Visit Provider Student in an Organized Health Care Education/Training Program
DX: L27.0 Generalized skin eruption due to drugs and medicaments taken internally (principal); T37.8X5A Adverse effect of other specified systemic anti-infectives and antiparasitics, initial encounter
CPT/HCPCS: 36415; 80053; 82085; 82550; 82784; 82785; 85025; 85652; 86140

== ENCOUNTER 2024-02-12 09:14 | Outpatient (AMB) | payer MEDICARE, SELFPAY ==
[2024-02-12 09:26] VITALS: BP 124/64; PULSE 70; BMI 29.0
--- NOTE | 2024-02-12 09:26 | MHC.OFFVIS ---
Vital Signs 02/12/24 09:26 Height 5 ft 3 in Weight 164 lb BMI 29.0 BP 124/64 Blood Pressure Location Lt brachial Position Sitting Pulse 70 Pulse Source Pulse Oximeter Intake Visit Reasons: DM/CM Intake Note: Patient last seen by Doctor Tamiko Dior on 12/04/23. Presents for DM follow up. Radio Electrician Required: No Accompanied by: Self / Same As Patient Allergies No Known Allergies Allergy (Verified 02/12/24 09:30) Medication List - Last Reconciled 02/12/24 by Tamiko Dior MD alendronate 70 mg PO QWEEK citalopram 20 mg PO DAILY citalopram 20 mg PO DAILY clonidine HCl 0.2 mg PO BEDTIME furosemide 40 mg PO DAILY furosemide mg PO hydroxyzine HCl 50 mg PO TID PRN methylprednisolone (Medrol) 32 mg (4 x 8 mg) PO DAILY tamoxifen 20 mg PO DAILY vitamins A,C,E-llop-ntlrng 4,296 mcg-226 mg-90 mg (PreserVision AREDS) 1 cap PO BID HPI Comments Details: This is a 69-year-old female with dermatomyositis who presents for follow-up. She was evaluated by my colleague Dr. Pinto about 8 days ago for a flare-up of diffuse rash on her face, scalp, chest, abdomen, thighs. Hydroxychloroquine had been recently started. It was discontinued. And started on Medrol taper. Today patient states that her rashes the same. It has gotten worse. She denies any changes in her muscle weakness. Denies dysphagia. [facility] Medical History Plaquenil adverse reaction in therapeutic use Acute on chronic heart failure with preserved ejection fraction (HFpEF) Nocturnal cough History of right breast cancer CHF (congestive heart failure) Pleural effusion Axillary adenopathy Bacteremia due to Klebsiella pneumoniae SIRS (systemic inflammatory response syndrome) Acute hypokalemia UTI (urinary tract infection) Abdominal pain Anemia Atrial arrhythmia Acute diastolic (congestive) heart failure Pancytopenia Diarrhea Pancolitis Colitis Nonsustained supraventricular tachycardia Port-A-Cath in place Pain in both feet Pedal edema History of COVID-19 Invasive ductal carcinoma of right breast Breast cancer, right Dermatomyositis Breast calcification, right Encounter to establish care Lumbar degenerative disc disease Hypertension Major depression, chronic Insomnia Anxiety Surgical History Hx of colonoscopy Status post right breast lumpectomy History of arthroscopic knee surgery History of hysterectomy History of section History of cholecystectomy History of gastric bypass History of fusion of cervical spine History of tonsillectomy Family History Mother No problems noted. Father Breast cancer Bone cancer Brother Substance use disorder Paternal Aunt Breast cancer Social History Household Members: Significant Other, Family and Children Housing: House Are you a primary healthcare economics manager to a significant other at home: No Do you presently have visiting nurse or other home services: Yes ([facility]NA) Alcohol intake: former Comment: Pedal Edema and pain- uses cane Patient Tobacco Use Status: Former Tobacco user Tobacco use type: Cigarette e-Cigarette/Vaping Use: Never Used Second Hand Smoke Exposure: Yes Advance Directives Date on File: 11/28/21 service: No Current occupational status: unemployed and retired Cognitive needs: No Hearing needs: No Vision needs: Yes (glasses) Female Reproductive History Menstrual Age of Menarche: 17 Review of Systems Skin/Breast Reports new lesions and Reports rash Physical Exam Vital Signs: Last Vital Signs Pulse 70 02/12/24 09:26 BP 124/64 02/12/24 09:26 BMI result Body Mass Index 29.0 Const General: cooperative, healthy appearing and comfortable Nutritional Appearance: overweight Orientation/consciousness: patient oriented x3 Limitations: no limitations HEENT Head: Yes normocephalic and Yes atraumatic Mouth: moist mucous membranes Resp Effort & Inspection: normal respiratory effort Cardio Rate: regular rate Rhythm: regular rhythm Skin Other: Her rashes are essentially the same as last visit involving her face, scalp, chest, abdomen, thighs, back. Slightly progressed on her abdomen Neuro General: patient oriented x3 Extrem Other: No active synovitis. Muscle strength 5/5 left upper extremity 5-/5 both upper extremities Neck flexion and extension strength normal Muscle strength 5/5 left hip flexors 5-/5 right hip flexors Normal bilateral hand poultry packer strength Assessment & Plan Assessment & Plan (1) Dermatomyositis: Comment: on skin biopsy 07/2021 +++TIF gamma Ab- Dr Krishna 08/10/2021 prednisone started. azathioprine added OSIRIS 1:80, CPK 991, marked proximal muscle weakness, CLARK neg, anti-SRP negative; aldolase WNL Associated breast cancer found 11/2021: Azathioprine stopped due to chemoRx 11/2021: flare of skin rash with taper of prednisone to 30mg 12/2021: monthly IV IVIG started 02/2022: prednisone stopped. Aza restarted. DC in 2023 due to pancytopenia Hydroxychloroquine started 11/2023, DC 01/2024 due to worsening rash Code(s): M33.90 - Dermatopolymyositis, unspecified, organ involvement unspecified Category: Medical Plan: This is a 68-year-old female dermatomyositis who presents for follow-up. She is having worsening active dermatomyositis rashes all over. Did not improve with hydroxychloroquine for 6 weeks. She was prescribed Medrol taper last visit by Dr. Pinto. Was not effective. She has been on Gammagard regularly for 2 years. Likely her dermatomyositis has become refractory It does not look like she has recurrence of her cancer. We have limited options. Given her cirrhotic liver, can not use methotrexate. Azathioprine was not tolerated. Discussed risks and benefits of Xeljanz. It has shown effectiveness in multiple studies. Especially for dermatomyositis skin rashes. PMID:?[id number] PMID:?[id number] [email or web address] Discussed risks and benefits of ALHAJI inhibitors including the black box warning with mildly increased risk of cardiovascular events, thromboembolic phenomenon and mildly increased risk of malignancy Patient agreed to proceed. I will start prior authorization for Xeljanz Stop Gammagard Increase Medrol to 32 mg daily for 1 month then reduce to 24 mg daily Advised patient to wear a mask when going out now that she is significantly immunosuppressed Labs before next visit in one-month (2) Long-term use of immunosuppressant medication: Code(s): Z79.60 - senior living (current) use of unspecified immunomodulators and immunosuppressants Category: Medical Plan: Discussed risks and benefits of ALHAJI inhibitors including increased risk of infection, malignancy, cardiovascular events, increased thromboembolic phenomenon I am aware of the mildly increased risk of leukopenia with ALHAJI inhibitors however we do not have multiple therapeutic options in her case. We will have to monitor her white count while on Xeljanz (3) Osteopenia: Comment: September 2021: Alendronate started because of need for high-dose prednisone Code(s): M85.80 - Other specified disorders of bone density and structure, unspecified site Category: Medical Qualifiers: Osteopenia location: multiple sites Qualified Code(s): M85.89 - Other specified disorders of bone density and structure, multiple sites Plan: Continue alendronate 70 mg weekly. DEXA scan is scheduled soon (4) Leukopenia: Code(s): D72.819 - Decreased white blood cell count, unspecified Category: Medical Plan: Follow-up with Dr. Hernández Plan I spent 45 minutes reviewing patient's chart, evaluating patient, ordering diagnostic workup, counseling patient and documenting in the chart Orders: Orders Complete Blood Count Auto Diff 1 Month M33.90 - Dermatopolymyositis, unspecified, organ involvement unspecified Comprehensive Met. Panel 1 Month M33.90 - Dermatopolymyositis, unspecified, organ involvement unspecified C Reactive Protein 1 Month M33.90 - Dermatopolymyositis, unspecified, organ involvement unspecified Creatine Kinase Total 1 Month M33.90 - Dermatopolymyositis, unspecified, organ involvement unspecified Erythrocyte Sedimentation Rate 1 Month M33.90 - Dermatopolymyositis, unspecified, organ involvement unspecified Medications: New methylprednisolone (Medrol) 32 mg (4 x 8 mg) PO DAILY 120 tabs 1RF hydroxyzine HCl 50 mg PO TID PRN 60 tabs 1RF itching Discontinued diphenhydramine HCl (Benadryl Allergy) Discontinued Reason: Doctor's Order 50 mg PO TID PRN 30 tabs 0RF itching 14 days T37.8X5A - Adverse effect of other specified systemic anti-infectives and antiparasitics, initial encounter methylprednisolone (Medrol) Discontinued Reason: Doctor's Order Take 4 tablets daily for 1 week, then 3 tablets daily for 1 week then 2 tablet daily for 1 week then 1 tablet daily for 1 week then stop 70 tabs 0RF 4 weeks L27.0 - Generalized skin eruption due to drugs and medicaments taken internally, T37.8X5A - Adverse effect of other specified systemic anti-infectives and antiparasitics, initial encounter Coding Level of Care Code Est Pt Level 5 (38980) Complex EM visit Add On G2211 Diagnoses Dermatomyositis M33.90 Long-term use of immunosuppressant medication Z79.60 Osteopenia of multiple sites M85.89 Osteopenia location: multiple sites Leukopenia D72.819
== END 2024-02-12 10:08 | disposition home or self-care (01) ==
PROVIDERS: Visit Provider Student in an Organized Health Care Education/Training Program
DX: M33.90 Dermatopolymyositis, unspecified, organ involvement unspecified (principal); Z79.60 Long term (current) use of unspecified immunomodulators and immunosuppressants; M85.89 Other specified disorders of bone density and structure, multiple sites; D72.819 Decreased white blood cell count, unspecified
CPT/HCPCS: 99215; G2211

== ENCOUNTER → 2024-02-12 09:14 | Outpatient (BNVA) | payer MEDICARE, SELFPAY | PROVIDERS: Visit Provider Student in an Organized Health Care Education/Training Program | DX: M33.90 Dermatopolymyositis, unspecified, organ involvement unspecified (principal); M85.89 Other specified disorders of bone density and structure, multiple sites; D72.819 Decreased white blood cell count, unspecified; Z79.60 Long term (current) use of unspecified immunomodulators and immunosuppressants | CPT/HCPCS: 99212 ==

== ENCOUNTER → 2024-02-24 08:58 | Outpatient (REF) | payer MEDICARE, SELFPAY ==
--- NOTE | 2024-02-24 09:04 | CA_ITS ---
Acquisition Time: 2024-02-24 09:31:11 Total Exercise Time: 00:02:00 Test Indications: CHF, SOB Medications: SEE H Protocol: LEXISCAN Max HR: 120 BPM 78% of Pred: 153 BPM Max BP: 106/052 mmHG Max Work Load: 1.6 METS Pharmacologic stress test completed with Lexiscan, while pt walked on treadmill at 1mph, with reports of headache, no chest discomfort, with frequent PACs, atrial runs of 4 beats, with normotensive response to injection. Nondiagnostic EKG for ischemia. In recovery, headache resolved. Nuclear images pending. Test reviewed with Dr. Taveras. Referred By: Josias Hameed Overread By: MATT CONNER
== END ==
LOC: HO.CARD 08:58
PROVIDERS: Visit Provider Internal Medicine Cardiovascular Disease
DX: R06.02 Shortness of breath (principal); I50.9 Heart failure, unspecified; R94.39 Abnormal result of other cardiovascular function study
CPT/HCPCS: 78452; 93017; A9500; J0280; J2785

== ENCOUNTER → 2024-02-24 09:04 | Outpatient (BNV) | payer MEDICARE, SELFPAY | PROVIDERS: Visit Provider Nurse Practitioner Family | DX: I50.9 Heart failure, unspecified (principal) | CPT/HCPCS: 78452; 93016; 93018 ==

== ENCOUNTER 2024-02-26 09:33 | Outpatient (REF) | payer MEDICARE, SELFPAY ==
[2024-02-26 10:37] LABS: MANUAL DIFF FLAG NO
[2024-02-26 10:40] LABS: Basophils Percent Auto 1.4 % (0-2); Eosinophils Absolute Auto 0.2 X10*3/uL (0.0-0.4); Eosinophils Percent Auto 9.4 % (0-4); Hematocrit 32.5 % (37.0-47.0); Hemoglobin 10.5 g/dl (12.0-16.0); Imm Gran Abs Auto 0.01 X10*3/uL (0.00-0.03); Imm Gran Pct Auto 0.5 % (0.0-0.4); Lymphocytes Absolute Auto 0.3 X10*3/uL (1.2-4.9); Lymphocytes Percent Auto 14.1 % (20-40); Mean Corpuscular HGB Conc 32.3 g/dl (31.0-35.0); Mean Corpuscular Hemoglobin 26.9 pg (27.0-33.0); Mean Corpuscular Volume 83.1 fL (80.0-98.0); Mean Platelet Volume 9.9 fL (9.4-12.3); Monocytes Absolute Auto 0.2 X10*3/uL (0.1-1.2); Monocytes Percent Auto 11.3 % (2-11); Neutrophils Absolute Auto 1.4 x10*3/uL (2.0-8.3); Neutrophils Percent Auto 63.3 % (45-73); Red Blood Count 3.91 X10*6/uL (4.20-5.50); Red Cell Distribution Width 15.5 % (11.0-16.0); SCAN SMEAR FLAG 1
[2024-02-26 10:42] LABS: Platelet Count 77 X10*3/uL (160-400); White Blood Count 2.1 X10*3/uL (4.8-10.8)
[2024-02-26 11:09] LABS: Alanine Aminotransferase 20 U/L (0-31); Albumin Level 3.2 g/dL (3.5-5.0); Alkaline Phosphatase 50 U/L (39-117); Anion Gap 7 (12-20); Aspartate Amino Transferase 44 U/L (5-31); Bilirubin Total 0.5 mg/dL (0.0-1.0); Blood Urea Nitrogen 23 mg/dL (9-16); C Reactive Protein < 0.10 mg/dL (< or = 0.50); Calcium 7.8 mg/dL (8.4-10.2); Carbon Dioxide 33 mmol/L (22-29); Chloride 105 mmol/L (96-108); Estimated Glomerular Filt Rate > 60; Glucose Random 103 mg/dL (60-115); Potassium 2.3 mmol/L (3.3-5.1); Sodium 143 mmol/L (135-145); Total Protein 5.9 g/dL (6.5-8.0)
[2024-02-26 11:21] LABS: Erythrocyte Sedimentation Rate 7 MM/HR (0-20)
== END 2024-02-26 09:34 | disposition home or self-care (01) ==
LOC: HO.10HDL 09:33
PROVIDERS: Visit Provider Student in an Organized Health Care Education/Training Program
DX: M33.90 Dermatopolymyositis, unspecified, organ involvement unspecified (principal)
CPT/HCPCS: 36415; 80053; 82550; 85025; 85652; 86140

== ENCOUNTER 2024-02-26 14:21 | Emergency (ER) | payer MEDICARE, SELFPAY ==
--- NOTE | 2024-02-26 14:24 | ECG_ITS ---
Test Reason : HYPOKALEMIA? Blood Pressure : / mmHG Vent. Rate : 075 BPM Atrial Rate : 091 BPM P-R Int : 000 ms QRS Dur : 076 ms QT Int : 406 ms P-R-T Axes : 000 043 017 degrees QTc Int : 453 ms Undetermined rhythm , possibly ?sinus Abnormal ECG When compared with ECG of 03-JAN-2024 16:07, Current undetermined rhythm precludes rhythm comparison, needs review Referred By: Generic ED Physician Electronically Signed By:SHAE MIR
[2024-02-26 14:28] VITALS: BP 129/54; PULSE 72; RESP 16; TEMP 36.9; O2SAT 100; BMI 27.5
--- NOTE | 2024-02-26 14:28 | ED.GENADULT ---
HPI - General Adult General Chief complaint: Recheck/Abnormal Lab/Rx Stated complaint: Low Potassium Time Seen by Provider: 02/26/24 14:36 Source: patient Limitations: no limitations History of Present Illness ED Provider: Kyleigh mak PA-C HPI narrative: 69-year-old female with a history of dermatomyositis currently having a flare admits treatment, presents with abnormal labs. Patient had routine screening labs drawn today, her potassium was critically low at 2.3. Patient is asymptomatic. Related Data Home Medications ?Medication ?Instructions ?Recorded ?Confirmed citalopram 20 mg tablet 20 mg PO DAILY 11/28/23 01/27/24 tamoxifen 20 mg tablet 20 mg PO DAILY 11/28/23 02/04/24 furosemide 20 mg tablet mg PO 02/04/24 02/04/24 vitamins A,C,H-ppay-vmckch 4,296 1 cap PO BID 02/04/24 02/04/24 mcg-226 mg-90 mg capsule (PreserVision AREDS) Previous Rx's ?Medication ?Instructions ?Recorded alendronate 70 mg tablet 70 mg PO QWEEK #12 tabs 08/19/23 furosemide 40 mg tablet 40 mg PO DAILY #90 tabs 12/20/23 clonidine HCl 0.2 mg tablet 0.2 mg PO BEDTIME anxiety #30 tabs 01/21/24 citalopram 20 mg tablet 20 mg PO DAILY #30 tabs 02/01/24 Xeljanz XR 11 mg tablet,extended 11 mg PO DAILY #30 tabs 02/12/24 release (tofacitinib) hydroxyzine HCl 50 mg tablet 50 mg PO TID PRN itching #60 tabs 02/12/24 methylprednisolone 8 mg tablet 32 mg (4 x 8 mg) PO DAILY #120 tabs 02/12/24 (Medrol) Allergies Allergy/AdvReac Type Severity Reaction Status Date / Time No Known Allergies Allergy Verified 02/26/24 14:30 Review of Systems Review of Systems: Yes all other systems are reviewed and are negative Constitutional: Constitutional: Denies fatigue and Denies fever(s) ENT: Denies dizziness Cardiovascular: Cardiovascular: Denies chest pain, Denies palpitations and Denies dyspnea Respiratory: Respiratory: Denies dyspnea Gastrointestinal: Gastrointestinal: Denies abdominal pain and Denies nausea Neurologic: Denies dizziness Endocrine: Endocrine: Denies fatigue and Denies palpitations [facility] Past Medical History Attestation statement: The following information was validated with the patient. Medical History Plaquenil adverse reaction in therapeutic use Acute on chronic heart failure with preserved ejection fraction (HFpEF) Nocturnal cough History of right breast cancer CHF (congestive heart failure) Pleural effusion Axillary adenopathy Bacteremia due to Klebsiella pneumoniae SIRS (systemic inflammatory response syndrome) Acute hypokalemia UTI (urinary tract infection) Abdominal pain Anemia Atrial arrhythmia Acute diastolic (congestive) heart failure Pancytopenia Diarrhea Pancolitis Colitis Nonsustained supraventricular tachycardia Port-A-Cath in place Pain in both feet Pedal edema History of COVID-19 Invasive ductal carcinoma of right breast Breast cancer, right Dermatomyositis Breast calcification, right Encounter to establish care Lumbar degenerative disc disease Hypertension Major depression, chronic Insomnia Anxiety Surgical History Hx of colonoscopy Status post right breast lumpectomy History of arthroscopic knee surgery History of hysterectomy History of section History of cholecystectomy History of gastric bypass History of fusion of cervical spine History of tonsillectomy Family History Family History Mother No problems noted. Father Breast cancer Bone cancer Brother Substance use disorder Paternal Aunt Breast cancer Social History Social History Household Members: Significant Other, Family and Children Housing: House Are you a primary human services care specialist to a significant other at home: No Do you presently have visiting nurse or other home services: Yes ([facility]) Alcohol intake: former Comment: Pedal Edema and pain- uses cane Patient Tobacco Use Status: Former Tobacco user Tobacco use type: Cigarette Smoked in Last 30 Days: No e-Cigarette/Vaping Use: Never Used Second Hand Smoke Exposure: Yes Use of substances other than those prescribed or required for medical reasons: No Advance Directives: Yes Advance Directives on File: Yes Advance Directives Date on File: 11/28/21 service: No Current occupational status: unemployed and retired Cognitive needs: No Hearing needs: No Vision needs: Yes (glasses) Physical Exam ED Vital Signs: Vital Signs - 24 hr 02/26/24 14:28 02/26/24 18:26 02/26/24 20:08 Temperature 98.4 F 98.5 F 98.2 F Pulse Rate 72 79 76 Respiratory Rate 16 18 15 Blood Pressure 129/54 L 127/66 132/57 L Pulse Oximetry 100 97 97 Oxygen Delivery Method Room Air Room Air Room Air BMI result Body Mass Index 27.5 Const Other: Alert Orientation/consciousness: patient oriented x3 Resp Other: Nonlabored respiration Cardio Other: Normal peripheral perfusion Skin Other: Patient's face chest and neck are flushed and dry, Neuro General: patient oriented x3, no focal motor deficits and CN's II-XI intact bilaterally Psych Other: Calm cooperative Course Course Course Narrative: RME, this is a rapid medical exam performed by Bunny Méndez please refer to primary provider for complete H&P- 69-year-old female with past medical history significant for dermatomyositis presents for evaluation of low potassium. She was due to see Rheumatology tomorrow and had routine labs today was found to have a low potassium. Her labs from 9:00 a.m. this morning show a potassium of 2.3. She is on Lasix 60 mg daily but no change in her dosing. The patient is seeing Rheumatology due to a flare of her dermatomyositis, she reports her skin is blistering, red and painful. Patient recently discontinued IVIG treatment and is on dexamethasone. Plan for repeat labs, EKG Reevaluation(s) Reevaluation #1: When patient was assessed from triage, a lactic acid was ordered I am not sure why, it is elevated at 2.4, I attributed to dehydration, I do not think this is consistent with sepsis, we will give a L saline and repeat. Time: 15:28 Medications Administered Discontinued Medications Generic Name Dose Route Start Last Admin Trade Name Freq PRN Reason Stop Dose Admin Potassium Chloride 10 meq in 100 mls @ 100 mls/hr 02/26/24 15:15 02/26/24 19:17 Potassium Chloride/H20 IV 02/26/24 19:14 100 mls/hr Q1H CHELSIE Administration Sodium Chloride 1,000 mls @ 999 mls/hr 02/26/24 15:30 02/26/24 20:23 Ns IV 02/26/24 16:30 Infused .Q1H1M CHELSIE Infusion Ondansetron HCl 4 mg 02/26/24 15:06 02/26/24 15:49 Ondansetron Hcl 4 Mg/2 Ml Vial IVPUSH 02/26/24 15:07 4 mg ONCE ONE Administration Potassium Chloride 40 meq 02/26/24 15:05 02/26/24 15:49 Potassium Chloride Packet 20 Meq Packet PO 02/26/24 15:06 40 meq ONCE ONE Administration Medical Decision Making Medical Decision Making [facility] Narrative: 69-year-old female with a history of dermatomyositis currently having a flare admits treatment, presents with abnormal labs. Patient had routine screening labs drawn today, her potassium was critically low at 2.3. Patient is asymptomatic. Patient is on 60 mg of daily Lasix. Problem: Use of a diuretic History: Per patient I have considered the following differential diagnoses: Arrhythmia, hypomagnesemia, failure to thrive, starvation ketosis Plan: Patient is hypokalemic secondary to Lasix, we will give 40 mEq both IV and p.o.. Adding Zofran in the event that she becomes nauseous. EKG already obtained in addition to other screening labs. I have independently reviewed the following tests: Labs: Stable chronic pancytopenia, potassium 2.3, EKG: Undetermined rhythm, rate of 75, nonspecific T-wave abnormality in inferior leads, Lab Data 02/26/24 14:39 02/26/24 14:39 Labs: Lab Results 02/26/24 02/26/24 Range/Units 14:39 16:57 WBC 2.9 L (4.8-10.8) X10*3/uL RBC 4.01 L (4.20-5.50) X10*6/uL Hgb 10.8 L (12.0-16.0) g/dl Hct 33.3 L (37.0-47.0) % MCV 83.0 (80.0-98.0) fL MCH 26.9 L (27.0-33.0) pg MCHC 32.4 (31.0-35.0) g/dl RDW 15.5 (11.0-16.0) % Plt Count 72 L (160-400) X10*3/uL MPV 9.7 (9.4-12.3) fL Immature Gran % (Auto) 0.3 (0.0-0.4) % Neut % (Auto) 70.0 (45-73) % Lymph % (Auto) 10.6 L (20-40) % [place] % (Auto) 10.2 (2-11) % Eos % (Auto) 8.2 H (0-4) % Baso % (Auto) 0.7 (0-2) % Lymph # (Auto) 0.3 L (1.2-4.9) X10*3/uL [place] # (Auto) 0.3 (0.1-1.2) X10*3/uL Eos # (Auto) 0.2 (0.0-0.4) X10*3/uL Baso # (Auto) 0.0 (0.0-0.2) X10*3/uL Abs Immat Gran (auto) 0.01 (0.00-0.03) X10*3/uL Absolute Neuts (auto) 2.1 (2.0-8.3) x10*3/uL Absolute Nucleated RBC 0.000 (0.0-0.012) X10*3/uL Nucleated RBC % (auto) 0.0 (0.0-0.2) /100WBC ESR 9 (0-20) MM/HR Sodium 140 (135-145) mmol/L Potassium 2.7 L* (3.3-5.1) mmol/L Chloride 104 (96-108) mmol/L Carbon Dioxide 29 (22-29) mmol/L Anion Gap 10 L (12-20) BUN 23 H (9-16) mg/dL Creatinine 0.91 (0.5-1.4) mg/dL Estim Creat Clear Calc 56.4 Estimated GFR > 60 Random Glucose 113 (60-115) mg/dL Lactic Acid 2.4 H* (0.5-2.0) mmol/L Lactic Acid F/U @ 2Hr 1.6 (0.5-2.0) mmol/L Calcium 7.9 L (8.4-10.2) mg/dL Phosphorus 4.1 (2.7-4.5) mg/dL Magnesium 1.9 (1.6-2.6) mg/dL Total Bilirubin 0.5 (0.0-1.0) mg/dL AST 41 H (5-31) U/L ALT 22 (0-31) U/L Alkaline Phosphatase 55 (39-117) U/L C-Reactive Protein < 0.10 (< or = 0.50) mg/dL Total Protein 6.4 L (6.5-8.0) g/dL Albumin 3.4 L (3.5-5.0) g/dL Lipase 68 (8-78) U/L Urine Color Yellow Urine Appearance Clear Urine pH 7.0 (5.0-9.0) Ur Specific [place] <= 1.005 (1.005-1.025) Urine Protein Negative (Neg-Trace) mg/dL Urine Glucose (UA) Negative (Negative) mg/dL Urine Ketones Negative (Negative) mg/dL Urine Blood Negative (Negative) Urine Nitrite Negative (Negative) Ur Leukocyte Esterase Negative (Negative) Urine RBC 0-2 (0-2) /HPF Urine WBC 0-5 (0-5) /HPF Ur Squamous Epith Cells 0-2 (0-2) /HPF Urine Bacteria None Seen (None Seen) Hyaline Casts 0-2 (0-2) /LPF Discharge Plan Discharge Clinical Impression: Hypokalemia Patient Disposition: Home, Self-Care Instructions: Hypokalemia (ED), Potassium Content of Foods List (ED) Additional Instructions: Your potassium was shown to be low, you were given IV potassium and oral potassium. I provided you with a list of potassium rich foods. Follow up with your primary care provider. Prescriptions: No Action alendronate 70 mg tablet 70 mg PO QWEEK Qty: 12 2RF furosemide 40 mg tablet 40 mg PO DAILY Qty: 90 3RF clonidine HCl 0.2 mg tablet 0.2 mg PO BEDTIME Qty: 30 1RF Xeljanz XR 11 mg tablet extended release 24 hr 11 mg PO DAILY Qty: 30 2RF citalopram 20 mg Tablet 20 mg PO DAILY Qty: 30 3RF citalopram 20 mg tablet 20 mg PO DAILY Rx Instructions: Take 20 mg p.o. daily for 1 week. Then go to 40 mg po daily. tamoxifen 20 mg tablet 20 mg PO DAILY methylprednisolone [Medrol] 8 mg tablet 32 mg PO DAILY Qty: 120 1RF hydroxyzine HCl 50 mg tablet 50 mg PO TID PRN (Reason: itching) Qty: 60 1RF furosemide 20 mg tablet PO PreserVision AREDS 4,296 mcg-226 mg-90 mg capsule 1 cap PO BID Print Language: Faroese
[2024-02-26 14:47] LABS: MANUAL DIFF FLAG NO
[2024-02-26 14:48] LABS: Basophils Percent Auto 0.7 % (0-2); Eosinophils Absolute Auto 0.2 X10*3/uL (0.0-0.4); Eosinophils Percent Auto 8.2 % (0-4); Hematocrit 33.3 % (37.0-47.0); Hemoglobin 10.8 g/dl (12.0-16.0); Imm Gran Abs Auto 0.01 X10*3/uL (0.00-0.03); Imm Gran Pct Auto 0.3 % (0.0-0.4); Lymphocytes Absolute Auto 0.3 X10*3/uL (1.2-4.9); Lymphocytes Percent Auto 10.6 % (20-40); Mean Corpuscular HGB Conc 32.4 g/dl (31.0-35.0); Mean Corpuscular Hemoglobin 26.9 pg (27.0-33.0); Mean Platelet Volume 9.7 fL (9.4-12.3); Monocytes Absolute Auto 0.3 X10*3/uL (0.1-1.2); Monocytes Percent Auto 10.2 % (2-11); Neutrophils Absolute Auto 2.1 x10*3/uL (2.0-8.3); Red Blood Count 4.01 X10*6/uL (4.20-5.50); Red Cell Distribution Width 15.5 % (11.0-16.0); White Blood Count 2.9 X10*3/uL (4.8-10.8)
[2024-02-26 14:49] LABS: Platelet Count 72 X10*3/uL (160-400)
[2024-02-26 15:27] LABS: Lactic Acid 2.4 mmol/L (0.5-2.0)
[2024-02-26 15:28] LABS: Alanine Aminotransferase 22 U/L (0-31); Albumin Level 3.4 g/dL (3.5-5.0); Alkaline Phosphatase 55 U/L (39-117); Anion Gap 10 (12-20); Aspartate Amino Transferase 41 U/L (5-31); Bilirubin Total 0.5 mg/dL (0.0-1.0); Blood Urea Nitrogen 23 mg/dL (9-16); C Reactive Protein < 0.10 mg/dL (< or = 0.50); Calcium 7.9 mg/dL (8.4-10.2); Carbon Dioxide 29 mmol/L (22-29); Chloride 104 mmol/L (96-108); Creatinine Clr Calc Pharmacy 56.4; Erythrocyte Sedimentation Rate 9 MM/HR (0-20); Estimated Glomerular Filt Rate > 60; Glucose Random 113 mg/dL (60-115); Lipase 68 U/L (8-78); Magnesium 1.9 mg/dL (1.6-2.6); Phosphorus 4.1 mg/dL (2.7-4.5); Potassium 2.7 mmol/L (3.3-5.1); Sodium 140 mmol/L (135-145); Total Protein 6.4 g/dL (6.5-8.0)
[2024-02-26] MEDS: Potassium Chloride/H20 10 MEQ/100 ML PIGGYBACK 100 MEQ IV ×4 (15:49→19:17)
[2024-02-26] MEDS: Potassium Chloride Packet 20 MEQ PACKET 40 MEQ PO (15:49)
[2024-02-26] MEDS: ondansetron HCL 4 MG/2 ML VIAL IVPUSH (15:49)
[2024-02-26] MEDS: 0.9 % Sodium Chloride 1,000 ML 999 ML IV (15:50)
[2024-02-26 16:44] LABS: Reflex Lactate? Lactic Acid Added
[2024-02-26 17:08] LABS: Appearance Urine Clear; Color Urine Yellow; Glucose Urine UA Negative (Negative); Leukocyte Esterase Urine Negative (Negative); Nitrite Urine Negative (Negative); Specific Gravity - Urine <= 1.005 (1.005-1.025); Urine Blood Negative (Negative); Urine Ketones Negative (Negative); Urine Protein Negative (Neg-Trace)
[2024-02-26 17:14] LABS: Bacteria Urine None Seen (None Seen); Hyaline Casts Urine 0-2 /LPF (0-2); RBC Urine 0-2 /HPF (0-2); Squamous Epithelial Cell Urine 0-2 /HPF (0-2); WBC Urine 0-5 /HPF (0-5)
[2024-02-26 17:19] LABS: ~Lactic Acid-LAB USE ONLY 1.6 mmol/L (0.5-2.0)
[2024-02-26 18:26] VITALS: BP 127/66; PULSE 79; RESP 18; TEMP 36.9; O2SAT 97
[2024-02-26 20:08] VITALS: BP 132/57; PULSE 76; RESP 15; TEMP 36.8; O2SAT 97
[2024-02-26] MEDS: Heparin Sodium,Porcine Flush 50 UNITS/5 ML SYRINGE IVFLUSH (20:37)
== END 2024-02-26 20:44 | disposition home or self-care (01) ==
PROVIDERS: Physician Assistant; Emergency Provider Emergency Medicine; PCP Internal Medicine
DX: E87.6 Hypokalemia (principal); R79.89 Other specified abnormal findings of blood chemistry; R94.31 Abnormal electrocardiogram [ECG] [EKG]; Z79.899 Other long term (current) drug therapy; Z87.891 Personal history of nicotine dependence
CPT/HCPCS: 36415; 80053; 81001; 83605; 83690; 83735; 84100; 85025; 85652; 86140; 93005; 96365; 96366; 96375; 99285; J1642; J2405; J3480

== ENCOUNTER → 2024-02-26 14:24 | Outpatient (BNV) | payer MEDICARE, SELFPAY | PROVIDERS: Emergency Provider Emergency Medicine; PCP Internal Medicine; Visit Provider Internal Medicine | DX: R94.31 Abnormal electrocardiogram [ECG] [EKG] (principal) | CPT/HCPCS: 93010 ==

== ENCOUNTER 2024-02-27 13:24 | Outpatient (AMB) | payer MEDICARE, SELFPAY ==
--- NOTE | 2024-02-27 13:26 | A.OFFVIS_ITS ---
Vital Signs 3 02/27/24 13:30 Height 5 ft 3 in Weight 159 lb 2.78 oz BMI 28.2 BP 142/70 H Blood Pressure Location Lt brachial Position Sitting Respiration 16 Pulse 75 Pulse Source Pulse Oximeter Pulse Oximetry (%) 99 Oxygen Delivery Method Room Air Intake Visit Reasons: DM Intake Note: Patient presents for DM. Allergies No Known Allergies Allergy (Verified 02/27/24 13:29) Medication List - Last Reconciled 02/27/24 by Tamiko Dior MD alendronate 70 mg PO QWEEK citalopram 20 mg PO DAILY citalopram 20 mg PO DAILY clobetasol 0.05% 1 appl topical BID clonidine HCl 0.2 mg PO BEDTIME furosemide 40 mg PO DAILY furosemide mg PO hydroxyzine HCl 50 mg PO TID PRN methylprednisolone (Medrol) 32 mg (4 x 8 mg) PO DAILY tacrolimus 0.1% 1 appl topical BID tamoxifen 20 mg PO DAILY vitamins A,C,E-lrgb-fxuehr 4,296 mcg-226 mg-90 mg (PreserVision AREDS) 1 cap PO BID Xeljanz XR (tofacitinib) 11 mg PO DAILY NS HPI Comments Details: This is a 69-year-old female with dermatomyositis who presents for follow-up. He is having a severe flare with diffuse rashes all over her body including her face, scalp arms, chest, back, abdomen, thighs. The rashes are burning and itching. She is starting to have some weakness especially involving her right arm and right Thigh. Denies any dysphagia. [facility] Medical History (Updated 02/27/24 @ 14:13 by Tamiko Dior MD) Plaquenil adverse reaction in therapeutic use Acute on chronic heart failure with preserved ejection fraction (HFpEF) Nocturnal cough History of right breast cancer CHF (congestive heart failure) Pleural effusion Axillary adenopathy Bacteremia due to Klebsiella pneumoniae SIRS (systemic inflammatory response syndrome) Acute hypokalemia UTI (urinary tract infection) Abdominal pain Anemia Atrial arrhythmia Acute diastolic (congestive) heart failure Pancytopenia Diarrhea Pancolitis Colitis Nonsustained supraventricular tachycardia Port-A-Cath in place Pain in both feet Pedal edema History of COVID-19 Invasive ductal carcinoma of right breast Breast cancer, right Dermatomyositis Breast calcification, right Encounter to establish care Lumbar degenerative disc disease Hypertension Major depression, chronic Insomnia Anxiety Surgical History Hx of colonoscopy Status post right breast lumpectomy History of arthroscopic knee surgery History of hysterectomy History of section History of cholecystectomy History of gastric bypass History of fusion of cervical spine History of tonsillectomy Family History Mother No problems noted. Father Breast cancer Bone cancer Brother Substance use disorder Paternal Aunt Breast cancer Social History Household Members: Significant Other, Family and Children Housing: House Are you a primary critical care rn to a significant other at home: No Do you presently have visiting nurse or other home services: Yes ([facility]NA) Alcohol intake: former Comment: Pedal Edema and pain- uses cane Patient Tobacco Use Status: Former Tobacco user Tobacco use type: Cigarette e-Cigarette/Vaping Use: Never Used Second Hand Smoke Exposure: Yes Advance Directives Date on File: 11/28/21 service: No Current occupational status: unemployed and retired Cognitive needs: No Hearing needs: No Vision needs: Yes (glasses) Female Reproductive History Menstrual Age of Menarche: 17 Review of Systems Musc Reports muscle weakness Skin/Breast Reports new lesions and Reports rash Physical Exam Vital Signs: Last Vital Signs Pulse 75 02/27/24 13:30 Resp 16 02/27/24 13:30 BP 142/70 H 02/27/24 13:30 Pulse Ox 99 02/27/24 13:30 Oxygen Delivery Method Room Air 02/27/24 13:30 BMI result Body Mass Index 28.2 Const General: cooperative, healthy appearing and comfortable Nutritional Appearance: overweight Orientation/consciousness: patient oriented x3 Limitations: no limitations HEENT Head: Yes normocephalic and Yes atraumatic Mouth: moist mucous membranes Resp Effort & Inspection: normal respiratory effort Cardio Rate: regular rate Rhythm: regular rhythm Skin Other: Diffuse rashes, see pictures on face, neck, chest, back, arms, sleep sign, on abdomen, on thighs, rashes are warm to the touch Neuro General: patient oriented x3 Extrem Other: Prominent Gottron's papules today on PIPs Muscle strength 4+ out of 5 right upper extremity and 4+ out of 5 right lower extremity 5/5 otherwise No active synovitis. 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 azathioprine added OSIRIS 1:80, CPK 991, marked proximal muscle weakness, CLARK neg, anti-SRP negative; aldolase WNL Associated breast cancer found 11/2021: Azathioprine stopped due to chemoRx 11/2021: flare of skin rash with taper of prednisone to 30mg 12/2021: monthly IV IVIG started 02/2022: prednisone stopped. Aza restarted. DC in 2023 due to pancytopenia Hydroxychloroquine started 11/2023, DC 01/2024 due to worsening rash Code(s): M33.90 - Dermatopolymyositis, unspecified, organ involvement unspecified Category: Medical Plan: This is a 69-year-old female dermatomyositis who presents for follow-up. She is having worsening active dermatomyositis rashes all over. She is starting to have muscle weakness, CPK is rising. She is currently on hydroxychloroquine. And 32 mg of Medrol. Patient has been on monthly Gammagard since 12/2021 with good results. However has been flaring over the last 1-2 months. We have limited options for treatment, as patient can not get azathioprine, methotrexate, leflunomide due to leukopenia and cirrhotic liver. She is considered refractory at this time Tofacitinib has shown significant effectiveness in cases of refractory dermatomyositis. I tried to get it authorized through her insurance but it was denied and denied again when appealed as it is off-label use. I will try to appeal it again through external appeal. Some patient may lose response to 1 IVIG a brand and regained response if IVIG brand is switched, we started prior authorization for Gamunex C. Continue with hydroxychloroquine. Patient has been on it for 2 months only. Patient has not been on it long enough for effectiveness. Increase Medrol to 48 mg daily Start clobetasol cream to treat her rashes for most of her body, use tacrolimus ointment for face and sensitive areas Hydroxyzine was not effective Given recurrent dermatomyositis there is a chance that her cancer has returned. I discussed her case with Dr. 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 We will have to monitor her white count while on Xeljanz (3) Osteopenia: Comment: September 2021: Alendronate started because of need for high-dose prednisone Code(s): M85.80 - Other specified disorders of bone density and structure, unspecified site Category: Medical Qualifiers: Osteopenia location: multiple sites Qualified Code(s): M85.89 - Other specified disorders of bone density and structure, multiple sites Plan: Continue alendronate 70 mg weekly. (4) Leukopenia: Code(s): D72.819 - Decreased white blood cell count, unspecified Category: Medical Plan: Follow-up with Dr. Hernández Plan I spent 45 minutes reviewing patient's chart, evaluating patient, ordering diagnostic workup, counseling patient and documenting in the chart Orders: Orders [address] fusion skull to thigh Today C50.911 - Malignant neoplasm of unspecified site of right female breast Medications: New 2 tacrolimus 0.1% 1 appl topical BID 60 grams 2RF M33.90 - Dermatopolymyositis, unspecified, organ involvement unspecified clobetasol 0.05% Not apply on face or sensitive areas such as your armpits, genitals or groin 1 appl topical BID 60 grams 1RF Changed 2 From methylprednisolone (Medrol) 32 mg (4 x 8 mg) PO DAILY 120 tabs 1RF To methylprednisolone (Medrol) 48 mg (6 x 8 mg) PO DAILY 180 tabs 0RF Refilled 2 hydroxychloroquine Take 2 tabs daily x5 days a week and 1 tab daily x2 days a week 48 tabs 2RF Coding Level of Care Code Est Pt Level 5 (82414) Complex EM visit Add On G2211 Diagnoses Dermatomyositis M33.90 Long-term use of immunosuppressant medication Z79.60 Osteopenia of multiple sites M85.89 Osteopenia location: multiple sites Leukopenia D72.819
[2024-02-27 13:30] VITALS: BP 142/70; PULSE 75; RESP 16; O2SAT 99; BMI 28.2
== END 2024-02-27 14:12 | disposition home or self-care (01) ==
PROVIDERS: Visit Provider Student in an Organized Health Care Education/Training Program
DX: M33.90 Dermatopolymyositis, unspecified, organ involvement unspecified (principal); Z79.60 Long term (current) use of unspecified immunomodulators and immunosuppressants; M85.89 Other specified disorders of bone density and structure, multiple sites; D72.819 Decreased white blood cell count, unspecified
CPT/HCPCS: 99215; G2211

== ENCOUNTER → 2024-02-27 13:24 | Outpatient (BNVA) | payer MEDICARE, SELFPAY | PROVIDERS: Visit Provider Student in an Organized Health Care Education/Training Program | DX: M33.90 Dermatopolymyositis, unspecified, organ involvement unspecified (principal); M85.89 Other specified disorders of bone density and structure, multiple sites; D72.819 Decreased white blood cell count, unspecified; C50.911 Malignant neoplasm of unspecified site of right female breast; Z79.60 Long term (current) use of unspecified immunomodulators and immunosuppressants | CPT/HCPCS: 99212 ==

== ENCOUNTER 2024-03-19 09:01 | Outpatient (REF) | payer MEDICARE, SELFPAY ==
--- NOTE | ~2024-03-19 | MM_ITS ---
EXAMINATION: MM DIAGNOSTIC DIGITAL BREAST TOMOSYNTHESIS, BILATERAL CLINICAL INFORMATION: History of right breast cancer in 2021 status post lumpectomy. COMPARISON: Mammography: Comparison is made with relevant prior exams. TECHNIQUE: Digital breast mammography with tomosynthesis is performed in both the craniocaudal and mediolateral oblique views along with computer-aided detection (CAD). FINDINGS: There are scattered areas of fibroglandular density (ACR BI-RADS breast composition Category b). Postoperative changes in the right breast are stable. Developing dystrophic calcifications again seen. Port in the superior posterior left breast on MLO view is again seen. There are no significant masses, abnormal calcifications, or other abnormalities. Results are provided to the patient at time of visit by the technologist. MM/MM tomosynthesis diagnostic BI IMPRESSION: There are no significant changes from prior study. ASSESSMENT: BI-RADS BI-RADS 2 - Benign Findings RECOMMENDATION: 1 year F/U This patient's information was entered into a reminder system with a target due date for their next mammogram. Electronically signed by: Tatyana Dennis DO 03/19/2024 09:36 AM EST
== END 2024-03-19 09:02 | disposition home or self-care (01) ==
LOC: HO.MAMMO 09:01
PROVIDERS: PCP Internal Medicine; Visit Provider Surgery
DX: Z08 Encounter for follow-up examination after completed treatment for malignant neoplasm (principal); Z85.3 Personal history of malignant neoplasm of breast; Z98.890 Other specified postprocedural states
CPT/HCPCS: 77062; 77066

== ENCOUNTER → 2024-03-19 09:15 | Outpatient (BNV) | payer MEDICARE, SELFPAY | PROVIDERS: PCP Internal Medicine; Visit Provider Internal Medicine | DX: R92.2 Inconclusive mammogram (principal); Z85.3 Personal history of malignant neoplasm of breast | CPT/HCPCS: 77066; G0279 ==

== ENCOUNTER 2024-03-24 11:03 | Outpatient (REF) | payer MEDICARE, SELFPAY ==
--- NOTE | ~2024-03-24 | PE_ITS ---
EXAMINATION: FLUORINE-18 FDG PET/CT SCAN CLINICAL INFORMATION: Malignant neoplasm right breast. TECHNIQUE: 60 minutes following the intravenous administration of 16.4 mCi of fluorine 18 FDG, images from the skull base to mid thigh were obtained using a combined PET/CT scanner with CT scan based attenuation correction. No intravenous contrast was administered. Transverse, coronal, sagittal, and volume reconstruction projections were obtained. The patient's blood glucose as determined by a finger stick, was 77 mg/dL immediately prior to injection. The radiotracer was injected intravenously through a left antecubital vein, without any complications. Total CT exam dose-length product 638 mGy-cm. * These CT images were obtained using dose optimization techniques as appropriate, variously including the following: Automated exposure control * Adjustment of mA and/or kV according to patient size (this includes techniques or standardized protocols for targeted exams where dose is matched to indication/reason for exam; i.e. extremities or head) * Use of iterative reconstruction technique COMPARISON: None available. FINDINGS: HEAD AND NECK: No abnormal radiotracer uptake. Visualized the brain or the neck region. On noncontrast CT there is no large intracranial hemorrhage, acute territorial infarct or significant shift of midline structures. CHEST: Ports and Devices: None Lungs: No abnormal radiotracer uptake. Pleura: No significant pleural effusion. Lymph Nodes: No tracer-avid mediastinal, hilar or internal mammary or axillary lymphadenopathy. Mediastinum: There is no significant pericardial effusion/thickening. Breasts/Chest Wall: No abnormal radiotracer uptake. On CT the right breast is enlarged with heterogeneous appearing subcutaneous soft tissues likely cellulitis or edema. There are postsurgical changes with a thick-walled 1.5 cm lesion in the right mid breast. There is diffuse anterior skin thickening. The left breast is unremarkable. ABDOMEN/PELVIS: Liver/Biliary System: No focal tracer-avid liver lesion. The gallbladder is not visualized.. Pancreas: Normal. Spleen: No abnormal radiotracer uptake. Spleen is enlarged measuring 17 cm in length.. Adrenal Glands: There is a 1.2 cm right adrenal lesion not metabolically active. The left adrenal gland is normal.. Kidneys: No hydronephrosis, hydroureter or renal calculi bilaterally. Bowel: There is no significant bowel dilatation to suggest obstruction. Lymph Nodes: No tracer avid retroperitoneal, mesenteric or pelvic and/or groin lymphadenopathy. Pelvic Organs: The urinary bladder is underdistended. MUSCULOSKELETAL: No abnormal FDG activity seen. There is mild S-shaped scoliosis of dorsolumbar spine. VASCULAR: Unremarkable. THE SITE(S) OF MOST INTENSE FDG AVIDITY AND SUV MAX: PET/PET CT fusion skull to thigh IMPRESSION: No abnormal FDG activity seen in whole-body to suspect any metastatic lymphadenopathy and metastatic osseous lesions. On CT the right breast is enlarged with a heterogeneous breast appearance likely cellulitis or edema. Thick-walled small round lesion is seen in the right breast likely site of surgery. There is mild thickening of the right breast skin is well. No abnormal FDG activity seen in either breast. Electronically signed by: Cisco Cordero MD 03/26/2024 07:32 AM EST
== END 2024-03-24 11:04 | disposition home or self-care (01) ==
LOC: HO.PET 11:03
PROVIDERS: PCP Internal Medicine; Visit Provider Student in an Organized Health Care Education/Training Program
DX: Z13.89 Encounter for screening for other disorder (principal)

== ENCOUNTER 2024-04-02 14:43 | Outpatient (AMB) | payer MEDICARE, SELFPAY ==
--- NOTE | 2024-04-02 14:46 | A.OFFVIS_ITS ---
Vital Signs 04/02/24 14:50 Height 5 ft 3 in Weight 162 lb 7.691 oz BMI 28.8 BP 140/70 H Blood Pressure Location Lt brachial Position Sitting Pulse 71 Pulse Source Pulse Oximeter Pulse Oximetry (%) 99 Oxygen Delivery Method Room Air Intake Visit Reasons: DM Intake Note: Patient presents for DM. Allergies No Known Allergies Allergy (Verified 04/02/24 14:49) Medication List - Last Reconciled 04/02/24 by Kasandra Pinto MD alendronate 70 mg PO QWEEK citalopram 20 mg PO DAILY clobetasol 0.05% 1 appl topical BID clonidine HCl 0.2 mg PO BEDTIME furosemide 40 mg PO DAILY hydroxyzine HCl 50 mg PO TID PRN methylprednisolone Take 5 tablets daily for 30 days then 4 tablets daily for 30 days then 3 tablets daily for 30 days tacrolimus 0.1% 1 appl topical BID tamoxifen 20 mg PO DAILY vitamins A,C,P-tkan-bgmdsv 4,296 mcg-226 mg-90 mg (PreserVision AREDS) 1 cap PO BID HPI Comments Details: Patient is a 69-year-old female with heart failure with preserved ejection fraction, chronic major depression, hypertension, anxiety, and history of breast cancer currently being followed up for dermatomyositis with Dr. Dior. Here today for an urgent visit for whole-body rash. Interval History: Patient last seen 02/27/2024. At that time patient noted worsening rash all over her body including her face, scalp, arms, chest, back, abdomen and thighs. The rashes were associated with burning and itching and she has also started having weakness involving her right arm and right thigh. Denied any dysphagia at that time Her exam was consistent with a flare of her dermatomyositis. PET scan done showed that cancer had not returned. Attempted to get tofacitinib approved however this was denied x2 by the insurance company. Started on high-dose steroids and restarted IVIG Today patient reports improvement in her rash. She still is having prominent muscle weakness difficulty vacuuming having to change her vacuum from hand to hand because it would get progressively weaker with use. Rheumatologic History: Patient with Tif 1 gamma positive antibody dermatomyositis Found to have breast cancer in 2021. Patient last seen 12/04/2023. At that time she had started PT, had gone to 3 sessions, but stating that her muscle weakness is about the same. Receiving IVIG 2 grams/kilogram every 4 weeks. Azathioprine was recently discontinued She was started on hydroxychloroquine at that visit on skin biopsy 07/2021 +++TIF gamma Ab- Dr Krishna 08/10/2021 prednisone started. azathioprine added OSIRIS 1:80, CPK 991, marked proximal muscle weakness, CLARK neg, anti-SRP negative; aldolase WNL Associated breast cancer found 11/2021: Azathioprine stopped due to chemoRx 11/2021: flare of skin rash with taper of prednisone to 30mg 12/2021: monthly IV IVIG started 02/2022: prednisone stopped. Aza restarted. DC in 2023 due to pancytopenia Hydroxychloroquine started 11/2023, DC 01/2024 due to worsening rash Current Rheumatology Medication(s): IVIG 2g/kg every month Medrol 24mg daily [facility] Medical History (Updated 04/02/24 @ 15:36 by Kasandra Pinto MD) Encounter for monitoring rituximab therapy Long-term current use of intravenous immunoglobulin (IVIG) Plaquenil adverse reaction in therapeutic use Acute on chronic heart failure with preserved ejection fraction (HFpEF) Nocturnal cough History of right breast cancer CHF (congestive heart failure) Pleural effusion Axillary adenopathy Bacteremia due to Klebsiella pneumoniae SIRS (systemic inflammatory response syndrome) Acute hypokalemia UTI (urinary tract infection) Abdominal pain Anemia Atrial arrhythmia Acute diastolic (congestive) heart failure Pancytopenia Diarrhea Pancolitis Colitis Nonsustained supraventricular tachycardia Port-A-Cath in place Pain in both feet Pedal edema History of COVID-19 Invasive ductal carcinoma of right breast Breast cancer, right Dermatomyositis Breast calcification, right Encounter to establish care Lumbar degenerative disc disease Hypertension Major depression, chronic Insomnia Anxiety Surgical History Hx of colonoscopy Status post right breast lumpectomy History of arthroscopic knee surgery History of hysterectomy History of section History of cholecystectomy History of gastric bypass History of fusion of cervical spine History of tonsillectomy Family History Mother No problems noted. Father Breast cancer Bone cancer Brother Substance use disorder Paternal Aunt Breast cancer Social History Household Members: Significant Other, Family and Children Housing: House Are you a primary manager home healthcare to a significant other at home: No Do you presently have visiting nurse or other home services: Yes ([facility]) Alcohol intake: former Comment: Pedal Edema and pain- uses cane Patient Tobacco Use Status: Former Tobacco user Tobacco use type: Cigarette e-Cigarette/Vaping Use: Never Used Second Hand Smoke Exposure: Yes Advance Directives Date on File: 11/28/21 service: No Current occupational status: unemployed and retired Cognitive needs: No Hearing needs: No Vision needs: Yes (glasses) Female Reproductive History Menstrual Age of Menarche: 17 Review of Systems Const Details: Review of Systems Constitutional: Denies fever, chills, weight loss ENT: Denies vision changes, eye pain or eye redness, dental caries, dry mouth GI: Denies nausea, vomiting, diarrhea, abdominal pain, change in BM Pulm: Denies SOB, SUMNER, hemoptysis, wheezing Cards: Denies chest pain, palpitations Skin: Denies Raynaud's, nail changes, photosensitivity, ESTATE CONSERVATOR: Denies headaches, weakness, paresthesias, recurrent falls MSK: as per HPI All other systems reviewed and are unremarkable except noted above Physical Exam Vital Signs: Last Vital Signs Pulse 71 04/02/24 14:50 BP 140/70 H 04/02/24 14:50 Pulse Ox 99 04/02/24 14:50 Oxygen Delivery Method Room Air 04/02/24 14:50 BMI result Body Mass Index 28.8 Vital signs reviewed Physical Examination CONSTITUITIONAL Patient alert and cooperative. Well appearing and in no apparent painful distress HEENT Conjunctiva and sclera clear. ?Pupils equal round and reactive to light. ?No lymphadenopathy. ? CHEST/RESPIRATORY SYSTEM Normal respiratory effort and able to speak in complete sentences. ?Clear to auscultation bilaterally. ?No crackles, rales, rhonchi, wheezes heard. CARDIAC SYSTEM Regular rate and rhythm. ?S1 and S2 heard no murmurs. ?Radial pulses intact bilaterally MSK Hands: ?Good director housekeeping strength bilaterally. No deformities noted. ?No synovitis noted to the MCPs, PIPs or DIPs. ?No tenderness to palpation of these joints. Wrists: ?Full range of motion at the wrists without pain. ?No tenderness to palpation or synovitis noted to the wrists. Elbows: Full range of motion without pain. No tenderness, weakness, swelling, increased warmth or erythema. Shoulders: Full range of motion without pain. No tenderness, weakness, swelling, increased warmth or erythema. Hips: Full range of motion without pain. Hip bursa: No tenderness to palpation Knees: ?Full range of motion. ?No tenderness, swelling, increased warmth or erythema.?No effusion or crepitations Ankles: Full range of motion. ?No tenderness, swelling, increased warmth or erythema.? Feet: ?Negative squeeze test. ?No tenderness to palpation or swelling of the MTPs. Tender points:?No tenderness to palpation of the bilateral trapezius, supraspinatus, greater trochanters, anterior costochondral junctions, bilateral gluteal areas, bilateral suboccipital muscle insertions SKIN Faint erythematous rash noted overlying face. Rash on back has resolved. Faint erythematous rash on upper chest area. Rash on hands and trunk have resolved. Results Reviewed Results Reviewed: Laboratory Tests 11/04/23 02/05/24 04/01/24 14:30 09:06 08:14 WBC 3.4 L RBC 3.99 L Hgb 10.4 L Hct 33.1 L Plt Count 98 L D ESR 7 Sodium 142 Potassium 3.0 L Chloride 106 Carbon Dioxide 26 BUN 18 H Creatinine 0.82 Total Bilirubin 0.5 AST 28 ALT 12 Alkaline Phosphatase 54 Total Creatine Kinase 57 C-Reactive Protein < 0.10 Total Protein 5.6 L Albumin 3.1 L IgG Total 2272 H IgA Total 64 L IgM 67 IgE <2 Myos P155/140 TIF1-g Ab 149 H Assessment & Plan Assessment & Plan (1) Dermatomyositis: Comment: on skin biopsy 07/2021 +++TIF gamma Ab- Dr Krishna 08/10/2021 prednisone started. azathioprine added OSIRIS 1:80, CPK 991, marked proximal muscle weakness, CLARK neg, anti-SRP negative; aldolase WNL Associated breast cancer found 11/2021: Azathioprine stopped due to chemoRx 11/2021: flare of skin rash with taper of prednisone to 30mg 12/2021: monthly IV IVIG started 02/2022: prednisone stopped. Aza restarted. DC in 2023 due to pancytopenia Hydroxychloroquine started 11/2023, DC 01/2024 due to worsening rash Code(s): M33.90 - Dermatopolymyositis, unspecified, organ involvement unspecified Category: Medical Plan: #Dermatomyositis Patient is a 69 year old female with skin biopsy-proven dermatomyositis. Positive TIF 1 gamma associated with breast cancer that is currently in remission after chemotherapy. Patient was doing okay on IVIG however she has now had breakthrough rash. In the past she tried azathioprine but had to stop due to pancytopenia, tried hydroxychloroquine however there was worsening rash and concern for medication reaction and so this was stopped. We have limited options for treatment, as patient can not get azathioprine, methotrexate, leflunomide, MMF due to leukopenia and cirrhotic liver. Attempted to get tofa citinib approved but this was denied by insurance. Rituximab has been shown to be beneficial in refractory cases of dermatomyositis. The RIM Trial did show some benefit for rituximab although it was overall a negative trial. Plan would be to do IVIG and rituximab. To give 1 week between IVIG and rituximab doses. Plan - Rituximab 1000mg day 1 and day 14. every 6 months - IVIG 2g/kg over 2 days - Decrease medrol: 20mg x 30 days; 16mg x 30 days until follow up - RTC 2 months - Labs prior to visit: CBC, CMP, ESR, CRP, CK, Aldolase, Immunoglobulins, Hepatitis panel (2) Long-term current use of intravenous immunoglobulin (IVIG): Code(s): Z79.899 - Other jail (current) drug therapy Category: Medical Plan: #Long-term use of IVIG Discussed with this patient the risks and benefits of IVIG use to the management of the rheumatic condition Benefits include improved disease control and maintenance of remission Risks include anaphylaxis, blood clots, transfusion related acute lung injury, hemolytic reaction, fluid overload, heart problems (3) Encounter for monitoring rituximab therapy: Code(s): Z51.81 - Encounter for therapeutic drug level monitoring; Z79.620 - exterminator helper (current) use of immunosuppressive biologic Category: Medical Plan: #Long-term Use of Rituxumab Discussed with this patient the risks and benefits of rituximab use to the management of the rheumatic condition Benefits include improved disease control and maintenance of remission Risks include hypogammaglobulinemia and increased risk of opportunistic infections, reactivation of hepatitis-B, infusion reactions Monitoring: ?Immunoglobulins, hepatitis-B serologies, CBC Plan I spent 40 minutes reviewing the record and labs, taking a history, examining the patient, discussing the treatment plan and documenting in the medical record Orders: Orders C Reactive Protein 2 Months Kasandra Pinto MD - Dermatopolymyositis, unspecified, organ involvement unspecified Hepatitis A,B,C Profile 1 Week Kasandra Pinto MD - Dermatopolymyositis, unspecified, organ involvement unspecified Complete Blood Count Auto Diff 2 Months Kasandra Pinto MD - Dermatopolymyositis, unspecified, organ involvement unspecified Comprehensive Met. Panel 2 Months Kasandra Pinto MD - Dermatopolymyositis, unspecified, organ involvement unspecified Creatine Kinase Total 2 Months Kasandra Pinto MD - Dermatopolymyositis, unspecified, organ involvement unspecified Erythrocyte Sedimentation Rate 2 Months Kasandra Pinto MD - Dermatopolymyositis, unspecified, organ involvement unspecified Immunoglobulins,IgG IgA IgM 3 Months Kasandra Pinto MD - Dermatopolymyositis, unspecified, organ involvement unspecified, Z79.899 - Other exterminator helper (current) drug therapy Potassium 1 Week Kasandra Pinto MD - Dermatopolymyositis, unspecified, organ involvement unspecified, Z79.899 - Other exterminator helper (current) drug therapy Medications: New potassium chloride ER 10 mEq PO DAILY 14 tabs 0RF Kasandra Pinto MD E87.6 - Hypokalemia rituximab (Rituxan) 1,000 mg (100 mL) IV Q14D 0RF Kasandra Pinto MD - Dermatopolymyositis, unspecified, organ involvement unspecified Changed From methylprednisolone (Medrol) 48 mg (6 x 8 mg) PO DAILY 180 tabs 0RF To methylprednisolone Take 5 tablets daily for 30 days then 4 tablets daily for 30 days then 3 tablets daily for 30 days 150 tabs 1RF Kasandra Pinto MD Refilled citalopram 20 mg PO DAILY 30 tabs 3RF Patrick Hernández MD Discontinued Xeljanz XR (tofacitinib) Discontinued Reason: Doctor's Order 11 mg PO DAILY 30 tabs 2RF NS - Dermatopolymyositis, unspecified, organ involvement unspecified hydroxychloroquine Discontinued Reason: Doctor's Order Take 2 tabs daily x5 days a week and 1 tab daily x2 days a week 48 tabs 2RF Coding Level of Care Code Est Pt Level 5 (29637) Complex EM visit Add On G2211 Diagnoses Dermatomyositis M33.90 Long-term current use of intravenous immunoglobulin (IVIG) Z79.899 Encounter for monitoring rituximab therapy Z51.81; Z79.620
[2024-04-02 14:50] VITALS: BP 140/70; PULSE 71; O2SAT 99; BMI 28.8
== END 2024-04-02 15:19 | disposition home or self-care (01) ==
PROVIDERS: PCP Internal Medicine; Visit Provider Student in an Organized Health Care Education/Training Program
DX: M33.90 Dermatopolymyositis, unspecified, organ involvement unspecified (principal); Z79.899 Other long term (current) drug therapy; Z51.81 Encounter for therapeutic drug level monitoring; Z79.620 Long term (current) use of immunosuppressive biologic
CPT/HCPCS: 99215; G2211

== ENCOUNTER → 2024-04-02 14:43 | Outpatient (BNVA) | payer MEDICARE, SELFPAY | PROVIDERS: PCP Internal Medicine; Visit Provider Student in an Organized Health Care Education/Training Program | DX: M33.90 Dermatopolymyositis, unspecified, organ involvement unspecified (principal); Z51.81 Encounter for therapeutic drug level monitoring; Z79.620 Long term (current) use of immunosuppressive biologic; Z79.899 Other long term (current) drug therapy | CPT/HCPCS: 99212 ==

== ENCOUNTER 2024-05-28 14:10 | Outpatient (AMB) | payer MEDICARE, SELFPAY ==
--- NOTE | 2024-05-28 14:13 | A.OFFVIS_ITS ---
Vital Signs 05/28/24 14:16 Weight 162 lb 14.746 oz BP 122/60 Blood Pressure Location Lt brachial Position Sitting Pulse 76 Pulse Source Pulse Oximeter Pulse Oximetry (%) 100 Oxygen Delivery Method Room Air Intake Visit Reasons: DM Intake Note: Patient last seen by Doctor Tamiko Dior on 02/24/24. Presents today for Vasculitis follow up and test results. Allergies No Known Allergies Allergy (Verified 05/28/24 14:15) Medication List - Last Reconciled 05/28/24 by Kasandra Pinto MD alendronate 70 mg PO QWEEK citalopram 20 mg PO DAILY clobetasol 0.05% 1 appl topical BID clonidine HCl 0.2 mg PO BEDTIME furosemide 40 mg PO DAILY hydroxyzine HCl 50 mg PO TID PRN methylprednisolone Three tablets for 30 days then 2 tablets for 30 days then 1 tablet for 30 days then stop potassium chloride ER 10 mEq PO DAILY rituximab (Rituxan) 1,000 mg (100 mL) IV Q14D 4 doses tacrolimus 0.1% 1 appl topical BID tamoxifen 20 mg (2 x 10 mg) PO DAILY vitamins A,C,J-xhze-uecuru 4,296 mcg-226 mg-90 mg (PreserVision AREDS) 1 cap PO BID HPI Comments Details: Patient is a 69-year-old female with heart failure with preserved ejection fraction, chronic major depression, hypertension, anxiety, breast cancer currently in remission, TIF 1 gamma refractory dermatomyositis here today for follow up Interval History: Patient last seen 04/02/24 with me. At that time her dermatomyositis flare was improving after prednisolone taper and decision was made to start rituximab as an additional therapy due to her worsening dermatomyositis rash and weakness on IVIG monotherapy. Today patient notes her rash was improved but is now having hair loss with a scaling rash affecting her entire scalp Rheumatologic History: Patient with Tif 1 gamma positive antibody dermatomyositis Found to have breast cancer in 2021. Patient last seen 12/04/2023. At that time she had started PT, had gone to 3 sessions, but stating that her muscle weakness is about the same. Receiving IVIG 2 grams/kilogram every 4 weeks. Azathioprine was recently discontinued She was started on hydroxychloroquine at that visit Skin biopsy 07/2021 +++TIF gamma Ab Dr Krishna 08/10/2021 prednisone started. azathioprine added OSIRIS 1:80, CPK 991, marked proximal muscle weakness, CLARK neg, anti-SRP negative; aldolase WNL Associated breast cancer found 11/2021: Azathioprine stopped due to chemoRx 11/2021: flare of skin rash with taper of prednisone to 30mg 12/2021: monthly IV IVIG started 02/2022: prednisone stopped. Aza restarted. DC in 2023 due to pancytopenia 11/2023: Hydroxychloroquine started - DC 01/2024 due to worsening rash 02/2024: Worsening dermatomyositis with rash and muscle weakness Repeat PET Scan without evidence of recurrent cancer 03/2024 Attempted to get tofacitinib approved but this was denied by insurance 03/2024: Rituxumab 2000mg every 6 months IV Current Rheumatology Medication(s): IVIG 2g/kg every month Rituxumab 2000mg IV every 6 months given in 1000mg divided doses Medrol 12mg daily [facility] Medical History (Updated 05/28/24 @ 16:23 by Kasandra Pinto MD) Encounter for monitoring rituximab therapy Long-term current use of intravenous immunoglobulin (IVIG) Plaquenil adverse reaction in therapeutic use Nocturnal cough Pleural effusion History of right breast cancer Axillary adenopathy Bacteremia due to Klebsiella pneumoniae SIRS (systemic inflammatory response syndrome) Acute hypokalemia UTI (urinary tract infection) Abdominal pain Anemia Atrial arrhythmia Acute on chronic heart failure with preserved ejection fraction (HFpEF) CHF (congestive heart failure) Acute diastolic (congestive) heart failure Pancytopenia Diarrhea Pancolitis Colitis Nonsustained supraventricular tachycardia Port-A-Cath in place Pain in both feet Pedal edema History of COVID-19 Invasive ductal carcinoma of right breast Breast cancer, right Dermatomyositis Breast calcification, right Encounter to establish care Lumbar degenerative disc disease Hypertension Major depression, chronic Insomnia Anxiety Surgical History Hx of colonoscopy Status post right breast lumpectomy History of arthroscopic knee surgery History of hysterectomy History of section History of cholecystectomy History of gastric bypass History of fusion of cervical spine History of tonsillectomy Family History Mother No problems noted. Father Breast cancer Bone cancer Brother Substance use disorder Paternal Aunt Breast cancer Social History (Reviewed 04/02/24 @ 14:50 by ADAM Schwartz Household Members: Significant Other, Family and Children Housing: House Are you a primary pet caretaker to a significant other at home: No Do you presently have visiting nurse or other home services: Yes ([facility]) Alcohol intake: former Comment: Pedal Edema and pain- uses cane Patient Tobacco Use Status: Former Tobacco user Tobacco use type: Cigarette e-Cigarette/Vaping Use: Never Used Second Hand Smoke Exposure: Yes Advance Directives Date on File: 11/28/21 service: No Current occupational status: unemployed and retired Cognitive needs: No Hearing needs: No Vision needs: Yes (glasses) Female Reproductive History Menstrual Age of Menarche: 17 Review of Systems Const Details: Review of Systems Constitutional: Denies fever, chills, weight loss ENT: Denies vision changes, eye pain or eye redness, dental caries, dry mouth GI: Denies nausea, vomiting, diarrhea, abdominal pain, change in BM Pulm: Denies SOB, SUMNER, hemoptysis, wheezing Cards: Denies chest pain, palpitations Skin: Denies Raynaud's, nail changes, photosensitivity FINANCIAL SERVICES SPECIALIST: Denies headaches, weakness, paresthesias, recurrent falls MSK: as per HPI All other systems reviewed and are unremarkable except noted above Physical Exam Vital signs reviewed Physical Examination CONSTITUITIONAL Patient alert and cooperative. Well appearing and in no apparent painful distress HEENT Conjunctiva and sclera clear. ?Pupils equal round and reactive to light. ?No lymphadenopathy. ? CHEST/RESPIRATORY SYSTEM Normal respiratory effort and able to speak in complete sentences. ?Clear to auscultation bilaterally. ?No crackles, rales, rhonchi, wheezes heard. CARDIAC SYSTEM Regular rate and rhythm. ?S1 and S2 heard no murmurs. ?Radial pulses intact bilaterally MSK Hands: ?Good poly packer and heat sealer strength bilaterally. No deformities noted. ?No synovitis noted to the MCPs, PIPs or DIPs. ?No tenderness to palpation of these joints. Wrists: ?Full range of motion at the wrists without pain. ?No tenderness to palpation or synovitis noted to the wrists. Elbows: Full range of motion without pain. No tenderness, weakness, swelling, increased warmth or erythema. Shoulders: Full range of motion without pain. No tenderness, weakness, swelling, increased warmth or erythema. Hips: Full range of motion without pain. Hip bursa: No tenderness to palpation Knees: ?Full range of motion. ?No tenderness, swelling, increased warmth or erythema.?No effusion or crepitations Ankles: Full range of motion. ?No tenderness, swelling, increased warmth or erythema.? Feet: ?Negative squeeze test. ?No tenderness to palpation or swelling of the MTPs. Tender points:?No tenderness to palpation of the bilateral trapezius, s upraspinatus, greater trochanters, anterior costochondral junctions, bilateral gluteal areas, bilateral suboccipital muscle insertions SKIN Faint erythematous rash noted overlying face. Rash on back has resolved. Faint erythematous rash on upper chest area. Rash on hands and trunk have improved Patient with severe flaky and waxy rash in the patient's head: PsO vs seborrheic dermatitis Right Left Neck flexion Qc Tech strength 5 5 Elbow flexion 5 5 Elbow extension 5 5 Shoulder abduction 4 4 Shoulder adduction 4 4 Hip flexion 4 4 Knee flexion 5 5 Knee extension 5 5 Ankle dorsiflexion 5 5 Ankle plantarflexion 5 5 Results Reviewed Results Reviewed: Laboratory Tests 04/29/24 05/27/24 08:23 08:08 WBC 2.0 L 2.0 L RBC 3.54 L 3.32 L Hgb 9.3 L 8.9 L Hct 29.3 L 28.0 L Plt Count 90 L 81 L ESR 17 13 Sodium 143 141 Potassium 3.0 L 3.2 L Chloride 113 H 111 H Carbon Dioxide 24 24 BUN 11 15 Creatinine 0.70 0.78 Calcium 8.2 L 8.0 L Corrected Ca 8.9 Total Bilirubin 0.6 0.4 AST 29 25 ALT 13 9 Alkaline Phosphatase 53 50 C-Reactive Protein 0.49 < 0.10 Total Protein 5.5 L 5.6 L Albumin 2.8 L 2.9 L Laboratory Tests 04/08/24 09:25 IgG Total 2093 H IgA Total 70 IgM 75 Immunology Labs 08/10/21 11/04/23 11:52 14:30 OSIRIS Screen POSITIVE A OSIRIS Titer 1:80 H OSIRIS Titer 2 1:40 H OSIRIS Pattern Nuclear, Homogeneous A OSIRIS Pattern 2 Nuclear, Speckled A Myos P155/140 TIF1-g Ab [address] Scan 03/2024 FINDINGS: HEAD AND NECK: No abnormal radiotracer uptake. Visualized the brain or the neck region. On noncontrast CT there is no large intracranial hemorrhage, acute territorial infarct or significant shift of midline structures. CHEST: Ports and Devices: None Lungs: No abnormal radiotracer uptake. Pleura: No significant pleural effusion. Lymph Nodes: No tracer-avid mediastinal, hilar or internal mammary or axillary lymphadenopathy. Mediastinum: There is no significant pericardial effusion/thickening. Breasts/Chest Wall: No abnormal radiotracer uptake. On CT the right breast is enlarged with heterogeneous appearing subcutaneous soft tissues likely cellulitis or edema. There are postsurgical changes with a thick-walled 1.5 cm lesion in the right mid breast. There is diffuse anterior skin thickening. The left breast is unremarkable. ABDOMEN/PELVIS: Liver/Biliary System: No focal tracer-avid liver lesion. The gallbladder is not visualized.. Pancreas: Normal. Spleen: No abnormal radiotracer uptake. Spleen is enlarged measuring 17 cm in length.. Adrenal Glands: There is a 1.2 cm right adrenal lesion not metabolically active. The left adrenal gland is normal.. Kidneys: No hydronephrosis, hydroureter or renal calculi bilaterally. Bowel: There is no significant bowel dilatation to suggest obstruction. Lymph Nodes: No tracer avid retroperitoneal, mesenteric or pelvic and/or groin lymphadenopathy. Pelvic Organs: The urinary bladder is underdistended. MUSCULOSKELETAL: No abnormal FDG activity seen. There is mild S-shaped scoliosis of dorsolumbar spine. VASCULAR: Unremarkable. IMPRESSION: No abnormal FDG activity seen in whole-body to suspect any metastatic lymphadenopathy and metastatic osseous lesions. On CT the right breast is enlarged with a heterogeneous breast appearance likely cellulitis or edema. Thick-walled small round lesion is seen in the right breast likely site of surgery. There is mild thickening of the right breast skin is well. No abnormal FDG activity seen in either breast. Assessment & Plan Assessment & Plan (1) Dermatomyositis: Comment: on skin biopsy 07/2021 +++TIF gamma Ab- Dr Krishna 08/10/2021 prednisone started. az athioprine added OSIRIS 1:80, CPK 991, marked proximal muscle weakness, CLARK neg, anti-SRP negative; aldolase WNL Associated breast cancer found 11/2021: Azathioprine stopped due to chemoRx 11/2021: flare of skin rash with taper of prednisone to 30mg 12/2021: monthly IV IVIG started 02/2022: prednisone stopped. Aza restarted. DC in 2023 due to pancytopenia Hydroxychloroquine started 11/2023, DC 01/2024 due to worsening rash 03/2024: Rituxumab started Code(s): M33.90 - Dermatopolymyositis, unspecified, organ involvement unspecified Category: Medical Plan: #Dermatomyositis Patient is a 69-year-old female with TIF 1 gamma antibody positive dermato myositis. Associated with breast cancer that is current in remission. Patient's dermatomyositis has been refractory with a breakthrough rash on IVIG monotherapy, currently on dual therapy with IVIG and Rituximab. Repeat PET scan negative 03/2024 for recurrence of malignancy. With this regimen there has been improvement in CK, muscle strength and rashes. However she has been having worsening have a scaly rash involving her entire head which is also associated with significant hair loss. Differentials for this include psoriasis versus seborrheic dermatitis versus dermatomyositis rash. Since all of her blood work and her labs are looking better I am leaning towards psoriasis versus report dermatitis as the underlying issue. She has an appointment with Dr. Terri Isabel from [facility]. We will continue with her regimen: IVIG and Rituxumab. Continue medrol taper Plan - Continue Monthly IVIG 2g/kg over 2 days - Continue Rituxumab 2000mg IV every 6 months divided into 2 1000mg doses 14 days apart - Decrease medrol: 12mg x 30 days then 8mg x 30 days then 4mg x 30 days then stop - Agree with Dermatology follow up for eval of scalp rash - RTC 2months - Labs before visit: CBC, CMP, ESR, CRP, CK, Aldolase, Immunoglobulins, Hepatitis panel, lymphocyte subsets (2) Hypokalemia: Code(s): E87.6 - Hypokalemia Category: Medical Plan: #Hypokalemia Patient with persistent hypokalemia likely in the setting of her Lasix use. We will start potassium supplements (3) Long-term current use of intravenous immunoglobulin (IVIG): Code(s): Z79.899 - Other penitentiary (current) drug therapy Category: Medical Plan: #Long-term use of IVIG Discussed with this patient the risks and benefits of IVIG use to the management of the rheumatic condition Benefits include improved disease control and maintenance of remission Risks include anaphylaxis, blood clots, transfusion related acute lung injury, hemolytic reaction, fluid overload, heart problems (4) Encounter for monitoring rituximab therapy: Code(s): Z51.81 - Encounter for therapeutic drug level monitoring; Z79.620 - intermediate project manager (current) use of immunosuppressive biologic Category: Medical Plan: #Long-term Use of Rituxumab Discussed with this patient the risks and benefits of rituximab use to the management of the rheumatic condition Benefits include improved disease control and maintenance of remission Risks include hypogammaglobulinemia and increased risk of opportunistic infections, reactivation of hepatitis-B, infusion reactions Monitoring: ?Immunoglobulins, hepatitis-B serologies, CBC Plan I spent 40 minutes reviewing the record and labs, taking a history, examining the patient, discussing the treatment plan, ordering diagnostic work up and documenting in the medical record Medications: Changed From methylprednisolone Take 5 tablets daily for 30 days then 4 tablets daily for 30 days then 3 tablets daily for 30 days 150 tabs 1RF M33.90 - Dermatopolymyositis, unspecified, organ involvement unspecified To methylprednisolone Three tablets for 30 days then 2 tablets for 30 days then 1 tablet for 30 days then stop 180 tabs 0RF M33.90 - Dermatopolymyositis, unspecified, organ involvement unspecified Refilled potassium chloride ER 10 mEq PO DAILY 90 tabs 1RF E87.6 - Hypokalemia Coding Level of Care Code Est Pt Level 5 (16622) Complex EM visit Add On G2211 Diagnoses Dermatomyositis M33.90 Hypokalemia E87.6 Long-term current use of intravenous immunoglobulin (IVIG) Z79.899 Encounter for monitoring rituximab therapy Z51.81; Z79.620
[2024-05-28 14:16] VITALS: BP 122/60; PULSE 76; O2SAT 100
--- OUTSIDE RECORDS SUMMARY | 2024-05-28 16:51 | XMS_ITS | CCD ---
Author Name Interface, [id number] lity Address [place] [address] [facility] Address [place] [address] Care Team Providers Care Electroplater Helper Name Role Phone Lay Sánchez Unavailable Unavailable Allergies and Adverse Reactions Reason for Visit Functional Status Medications Problems Social History
--- OUTSIDE RECORDS SUMMARY | 2024-05-28 16:51 | XMS_ITS | CCD ---
Author Name Interface, [id number] lity Address [place] [address] [facility] Address [place] [address] Care Team Providers Care Compensation Director Name Role Phone Lay Sánchez Unavailable Unavailable Allergies and Adverse Reactions Reason for Visit Functional Status Medications Problems Social History
== END 2024-05-28 15:08 | disposition home or self-care (01) ==
LOC: HO.RHE 14:10
PROVIDERS: PCP Internal Medicine; Visit Provider Student in an Organized Health Care Education/Training Program
DX: M33.90 Dermatopolymyositis, unspecified, organ involvement unspecified (principal); E87.6 Hypokalemia; Z79.899 Other long term (current) drug therapy; Z51.81 Encounter for therapeutic drug level monitoring; Z79.620 Long term (current) use of immunosuppressive biologic
CPT/HCPCS: 99215; G2211

== ENCOUNTER → 2024-05-28 14:10 | Outpatient (BNVA) | payer MEDICARE, SELFPAY | PROVIDERS: PCP Internal Medicine; Visit Provider Student in an Organized Health Care Education/Training Program | DX: M33.90 Dermatopolymyositis, unspecified, organ involvement unspecified (principal); E87.6 Hypokalemia; Z51.81 Encounter for therapeutic drug level monitoring; Z79.620 Long term (current) use of immunosuppressive biologic; Z79.899 Other long term (current) drug therapy | CPT/HCPCS: 99212 ==

== ENCOUNTER 2024-06-21 18:53 | Emergency (ER) | payer MEDICARE, SELFPAY ==
[2024-06-21] VITALS (7 sets, daily range): BP systolic 124–161; BP diastolic 61–80; PULSE 62–96; RESP 16–20; TEMP 36.6–36.7; O2SAT 96–98; BMI 31.9
--- NOTE | ~2024-06-21 | CT_ITS ---
CLINICAL HISTORY: trauma CT head without contrast Comparison: 12/14/2021 Findings: No new intra-axial mass, midline shift, hydrocephalus, or acute hemorrhage. No significant atrophy-like change or white matter disease. There is no sinus or mastoid fluid. The orbits are unremarkable. There is no acute fracture. IMPRESSION: 1. No acute intracranial findings. This document has been electronically signed by: Terrance Damon MD on 06/21/2024 20:46:28
--- NOTE | ~2024-06-21 | CT_ITS ---
CLINICAL HISTORY: trauma CT chest without contrast Comparison: None Findings: The heart size is normal. The visualized thyroid and mediastinum are unremarkable. There is right middle and lower lobe consolidation with large right pleural effusion. There is small left pleural effusion. Differential considerations would include scarring, subsegmental atelectasis, pneumonia, or hemorrhage given the history of trauma. There is markedly abnormal appearance of the right breast with skin thickening. Correlate for possible iatrogenic findings. If no history of previous breast surgery or radiation therapy, appropriate further evaluation likely beginning with diagnostic mammography, is recommended. The visualized upper abdomen is unremarkable. No acute fractures. IMPRESSION: 1. Bilateral pleural effusions with right middle and lower lobe consolidation, differential considerations noted. 2. Possible iatrogenic findings in the right breast. Correlation with clinical history and comparison with any prior exams, if available, would be of value. If not, appropriate further evaluation beginning with diagnostic mammography is recommended.. This document has been electronically signed by: Terrance Damon MD on 06/21/2024 20:54:02
--- NOTE | ~2024-06-21 | XR_ITS ---
CLINICAL HISTORY: trauma 4 view right wrist Comparison: None Findings: Bones intact. No dislocations. No significant loss of joint space, osteophyte, or erosions. No radiopaque foreign body. IMPRESSION: 1. No acute findings This document has been electronically signed by: Terrance Damon MD on 06/21/2024 20:12:52
--- NOTE | ~2024-06-21 | XR_ITS ---
CLINICAL HISTORY: trauma 5 view right knee Comparison: None Findings: No fractures or dislocations. There is severe osteoarthritis most pronounced in the lateral compartment.. No joint effusion. No radiopaque foreign body. IMPRESSION: 1. No acute findings. This document has been electronically signed by: Terrance Damon MD on 06/21/2024 20:11:32
--- NOTE | ~2024-06-21 | CT_ITS ---
CLINICAL HISTORY: trauma CT cervical spine without contrast Comparison: None Findings: Normal vertebral body alignment. There is multiple level degenerative disc, facet, and uncovertebral joint change. Anterior cervical discectomy and fusion changes noted at C5 through C7 with intact well-positioned surgical hardware. No acute fractures or dislocations. Visualized intracranial contents are unremarkable. No cervical fluid collections or masses. Lung apices are clear. IMPRESSION: No acute findings. This document has been electronically signed by: Terrance Damon MD on 06/21/2024 20:45:50
--- NOTE | 2024-06-21 19:31 | ED.GENADULT ---
HPI - General Adult General Chief complaint: Fall Stated complaint: Fall, Rib and head pain Time Seen by Provider: 06/21/24 19:23 Source: patient Limitations: no limitations History of Present Illness ED Provider: Kyleigh Kline PA-C HPI narrative: 69-year-old female with a history of dermatomyositis on IVIG therapy, neuropathy, leukopenia, hypertension, anxiety and depression who presents after fall. Patient states she tripped over her door way step, subsequently landing with her full weight on her right side. Patient did strike her head, there was no loss consciousness, she is not on a blood thinner. Patient's primary complaint is for right-sided rib pain. She also complains of right wrist and right knee pain. Related Data Home Medications ?Medication ?Instructions ?Recorded ?Confirmed vitamins A,C,O-axri-uiyxmz 4,296 1 cap PO BID 02/04/24 05/28/24 mcg-226 mg-90 mg capsule (PreserVision AREDS) Previous Rx's ?Medication ?Instructions ?Recorded furosemide 40 mg tablet 40 mg PO DAILY #90 tabs 12/20/23 hydroxyzine HCl 50 mg tablet 50 mg PO TID PRN itching #60 tabs 02/12/24 tacrolimus 0.1 % topical ointment 1 appl topical BID #60 grams 02/27/24 clobetasol 0.05 % topical ointment 1 appl topical BID #60 grams 03/05/24 citalopram 20 mg tablet 20 mg PO DAILY #30 tabs 03/26/24 rituximab 10 mg/mL 1,000 mg (100 mL) IV Q14D 4 doses 04/02/24 concentrate,intravenous (Rituxan) tamoxifen 10 mg tablet 20 mg (2 x 10 mg) PO DAILY #90 tabs 05/04/24 alendronate 70 mg tablet 70 mg PO QWEEK #12 tabs 05/06/24 clonidine HCl 0.2 mg tablet 0.2 mg PO BEDTIME anxiety #30 tabs 05/13/24 methylprednisolone 4 mg tablet 4 mg PO .COMPLEX #180 tabs 05/28/24 potassium chloride 10 mEq 10 meq PO DAILY #90 tabs 05/28/24 tablet,extended release methocarbamol 750 mg tablet 1,500 mg (2 x 750 mg) PO Q8H PRN 06/21/24 pain, moderate #20 tabs Allergies Allergy/AdvReac Type Severity Reaction Status Date / Time No Known Allergies Allergy Verified 06/21/24 19:15 [facility] Past Medical History Medical History (Updated 06/22/24 @ 00:01 by Macho Nixon) Encounter for monitoring rituximab therapy Long-term current use of intravenous immunoglobulin (IVIG) Plaquenil adverse reaction in therapeutic use Nocturnal cough Pleural effusion History of right breast cancer Axillary adenopathy Bacteremia due to Klebsiella pneumoniae SIRS (systemic inflammatory response syndrome) Acute hypokalemia UTI (urinary tract infection) Abdominal pain Anemia Atrial arrhythmia Acute on chronic heart failure with preserved ejection fraction (HFpEF) CHF (congestive heart failure) Acute diastolic (congestive) heart failure Pancytopenia Diarrhea Pancolitis Colitis Nonsustained supraventricular tachycardia Port-A-Cath in place Pain in both feet Pedal edema History of COVID-19 Invasive ductal carcinoma of right breast Breast cancer, right Dermatomyositis Breast calcification, right Encounter to establish care Lumbar degenerative disc disease Hypertension Major depression, chronic Insomnia Anxiety Surgical History Hx of colonoscopy Status post right breast lumpectomy History of arthroscopic knee surgery History of hysterectomy History of section History of cholecystectomy History of gastric bypass History of fusion of cervical spine History of tonsillectomy Family History Family History Mother No problems noted. Father Breast cancer Bone cancer Brother Substance use disorder Paternal Aunt Breast cancer Social History Social History Household Members: Significant Other, Family and Children Housing: House Are you a primary animal care service worker to a significant other at home: No Do you presently have visiting nurse or other home services: Yes ([facility]) Alcohol intake: former Comment: Pedal Edema and pain- uses cane Patient Tobacco Use Status: Former Tobacco user Tobacco use type: Cigarette e-Cigarette/Vaping Use: Never Used Second Hand Smoke Exposure: Yes Advance Directives Date on File: 11/28/21 service: No Current occupational status: unemployed and retired Cognitive needs: No Hearing needs: No Vision needs: Yes (glasses) Physical Exam ED Vital Signs: Vital Signs - 24 hr 06/21/24 19:11 06/21/24 19:39 06/21/24 20:34 Temperature 98 F Pulse Rate 63 Respiratory Rate 20 20 20 Blood Pressure 135/69 Pulse Oximetry 98 Oxygen Delivery Method Room Air 06/21/24 20:38 06/21/24 20:38 06/21/24 22:41 Temperature Pulse Rate 62 Respiratory Rate 20 20 16 Blood Pressure 161/74 H Pulse Oximetry 96 Oxygen Delivery Method Room Air 06/21/24 22:56 Temperature 98.1 F Pulse Rate 96 Respiratory Rate 16 Blood Pressure 124/61 Pulse Oximetry 96 Oxygen Delivery Method Room Air BMI result Body Mass Index 31.9 Const Other: Alert well-appearing Orientation/consciousness: patient oriented x3 Chest Other: Palpable pain over right chest wall no obvious deformity Resp Effort & Inspection: normal respiratory effort Cardio Other: Normal peripheral perfusion Skin Other: Warm dry no rash Neuro General: patient oriented x3, gait normal, no focal motor deficits and CN's II-XI intact bilaterally Extrem Other: Patient able to flex and extend the right knee, swelling noted over the right wrist, minimal flexion and extension, no snuffbox tenderness Psych Other: Cooperative Medications Administered Discontinued Medications Generic Name Dose Route Start Last Admin Trade Name Christosq PRN Reason Stop Dose Admin Methocarbamol 1,500 mg 06/21/24 23:17 06/21/24 23:39 Methocarbamol 750 Mg Tablet PO 06/21/24 23:18 1,500 mg ONCE ONE Administration Morphine Sulfate 4 mg 06/21/24 19:30 06/21/24 19:39 Morphine Sulfate 4 Mg/Ml Cartridge IVPUSH 06/21/24 19:31 4 mg ONCE ONE Administration Protocol Morphine Sulfate 4 mg 06/21/24 20:26 06/21/24 20:38 Morphine Sulfate 4 Mg/Ml Cartridge IVPUSH 06/21/24 20:27 4 mg ONCE ONE Administration Protocol Medical Decision Making Medical Decision Making MDM Narrative: 69-year-old female with a history of dermatomyositis on IVIG therapy, neuropathy, leukopenia, hypertension, anxiety and depression who presents after fall. Patient states she tripped over her door way step, subsequently landing with her full weight on her right side. Patient did strike her head, there was no loss consciousness, she is not on a blood thinner. Patient's primary complaint is for right-sided rib pain. She also complains of right wrist and right knee pain. Problem: Dermatomyositis, chronic pain, neuropathy History: Per patient I have considered the following differential diagnoses: Chest wall contusion, rib fracture, intracranial hemorrhage, cervical spine injury, fracture, dislocation, sprain Plan: We will be imaging the patient's chest, head and cervical spine. Obtaining x-rays of the wrist and knee. I have low suspicion for intracranial hemorrhage given the patient was neurologically intact, she is not altered, not actively vomiting not complaining of the headache. I have independently reviewed the following tests: Labs: Chronic pancytopenia, no electrolyte abnormalities CT brain:IMPRESSION: 1. No acute intracranial findings. CT cervical spine: IMPRESSION: No acute findings. CT chest: MPRESSION: 1. Bilateral pleural effusions with right middle and lower lobe consolidation, differential considerations noted. 2. Possible iatrogenic findings in the right breast. Correlation with clinical history and comparison with any prior exams, if available, would be of value. If not, appropriate further evaluation beginning with diagnostic mammography is recommended.. X-ray knee:indings: No fractures or dislocations. There is severe osteoarthritis most pronounced in the lateral compartment.. No joint effusion. No radiopaque foreign body. IMPRESSION: 1. No acute findings. X-ray wrist: Findings: Bones intact. No dislocations. No significant loss of joint space, osteophyte, or erosions. No radiopaque foreign body. IMPRESSION: 1. No acute findings Lab Data 06/21/24 21:08 06/21/24 21:08 Labs: Lab Results 06/21/24 Range/Units 21:08 WBC 2.5 L (4.8-10.8) X10*3/uL RBC 3.52 L (4.20-5.50) X10*6/uL Hgb 9.2 L (12.0-16.0) g/dl Hct 29.4 L (37.0-47.0) % MCV 83.5 (80.0-98.0) fL MCH 26.1 L (27.0-33.0) pg MCHC 31.3 (31.0-35.0) g/dl RDW 15.8 (11.0-16.0) % Plt Count 77 L (160-400) X10*3/uL MPV 9.9 (9.4-12.3) fL Immature Gran % (Auto) 0.4 (0.0-0.4) % Neut % (Auto) 78.3 H (45-73) % Lymph % (Auto) 8.7 L (20-40) % Edgar % (Auto) 11.0 (2-11) % Eos % (Auto) 0.8 (0-4) % Baso % (Auto) 0.8 (0-2) % Lymph # (Auto) 0.2 L (1.2-4.9) X10*3/uL Edgar # (Auto) 0.3 (0.1-1.2) X10*3/uL Eos # (Auto) 0.0 (0.0-0.4) X10*3/uL Baso # (Auto) 0.0 (0.0-0.2) X10*3/uL Abs Immat Gran (auto) 0.01 (0.00-0.03) X10*3/uL Absolute Neuts (auto) 2.0 (2.0-8.3) x10*3/uL Absolute Nucleated RBC 0.000 (0.0-0.012) X10*3/uL Nucleated RBC % (auto) 0.0 (0.0-0.2) /100WBC Sodium 141 (135-145) mmol/L Potassium 3.8 (3.3-5.1) mmol/L Chloride 110 H (96-108) mmol/L Carbon Dioxide 22 (22-29) mmol/L Anion Gap 13 (12-20) BUN 15 (9-16) mg/dL Creatinine 0.68 (0.5-1.4) mg/dL Estim Creat Clear Calc 81.2 Estimated GFR > 60 Random Glucose 97 (60-115) mg/dL Calcium 8.1 L (8.4-10.2) mg/dL Magnesium 2.0 (1.6-2.6) mg/dL Total Bilirubin 0.7 (0.0-1.0) mg/dL AST 68 H (5-31) U/L ALT 28 (0-31) U/L Alkaline Phosphatase 70 (39-117) U/L Total Protein 6.3 L (6.5-8.0) g/dL Albumin 3.5 (3.5-5.0) g/dL Discharge Plan Discharge Clinical Impression: Right wrist sprain, Chest wall contusion, Contusion of right knee Patient Disposition: Home, Self-Care Instructions: Contusion in Adults (ED), Rib Contusion (ED) Additional Instructions: CT scans of your brain, cervical spine and chest were normal. You sustained contusions. See home care instructions. The x-ray of the right wrist and right knee were also negative for fracture or dislocation. You also have a right wrist sprain. See home care instructions. Use the brace as needed for comfort and to offer stability of the joint. Use the methocarbamol, this is a muscle relaxant, as needed for body aches. To note this medication will cause drowsiness do not drive or operate machinery while taking the medication. You also need to take an anti-inflammatory such as [id number] ibuprofen 600 mg taken every 6 hours with food. Follow up with your primary care provider as needed. Prescriptions: New methocarbamol 750 mg tablet 1,500 mg PO Q8H PRN (Reason: pain, moderate) Qty: 20 0RF No Action furosemide 40 mg tablet 40 mg PO DAILY Qty: 90 3RF clobetasol 0.05 % ointment 1 appl topical BID Qty: 60 3RF Rx Instructions: Do Not apply on face or sensitive areas such as your armpits, genitals or groin alendronate 70 mg tablet 70 mg PO QWEEK Qty: 12 1RF clonidine HCl 0.2 mg tablet 0.2 mg PO BEDTIME Qty: 30 1RF tamoxifen 10 mg Tablet 20 mg PO DAILY Qty: 90 4RF tacrolimus 0.1 % ointment 1 appl topical BID Qty: 60 2RF citalopram 20 mg Tablet 20 mg PO DAILY Qty: 30 3RF Rituxan 10 mg/mL concentrate 1,000 mg IV Q14D hydroxyzine HCl 50 mg tablet 50 mg PO TID PRN (Reason: itching) Qty: 60 1RF PreserVision AREDS 4,296 mcg-226 mg-90 mg capsule 1 cap PO BID potassium chloride 10 mEq tablet extended release 10 meq PO DAILY Qty: 90 1RF methylprednisolone 4 mg tablet 4 mg PO .COMPLEX Qty: 180 0RF Rx Instructions: Three tablets for 30 days then 2 tablets for 30 days then 1 tablet for 30 days then stop Interventions: ED Discharge Assessment Last Done: 06/21/24 23:54 Discharge Date/Time: 06/21/24 23:57 Print Language: Tanzanian
[2024-06-21] MEDS: Morphine Sulfate 4 MG/ML CARTRIDGE IVPUSH ×2 (19:39→20:38)
[2024-06-21 21:12] LABS: MANUAL DIFF FLAG NO
[2024-06-21 21:13] LABS: Basophils Percent Auto 0.8 % (0-2); Eosinophils Percent Auto 0.8 % (0-4); Hematocrit 29.4 % (37.0-47.0); Hemoglobin 9.2 g/dl (12.0-16.0); Imm Gran Abs Auto 0.01 X10*3/uL (0.00-0.03); Imm Gran Pct Auto 0.4 % (0.0-0.4); Lymphocytes Absolute Auto 0.2 X10*3/uL (1.2-4.9); Lymphocytes Percent Auto 8.7 % (20-40); Mean Corpuscular HGB Conc 31.3 g/dl (31.0-35.0); Mean Corpuscular Hemoglobin 26.1 pg (27.0-33.0); Mean Corpuscular Volume 83.5 fL (80.0-98.0); Mean Platelet Volume 9.9 fL (9.4-12.3); Monocytes Absolute Auto 0.3 X10*3/uL (0.1-1.2); Neutrophils Percent Auto 78.3 % (45-73); Red Blood Count 3.52 X10*6/uL (4.20-5.50); Red Cell Distribution Width 15.8 % (11.0-16.0)
[2024-06-21 21:14] LABS: Platelet Count 77 X10*3/uL (160-400); White Blood Count 2.5 X10*3/uL (4.8-10.8)
[2024-06-21 21:27] LABS: Alanine Aminotransferase 28 U/L (0-31); Albumin Level 3.5 g/dL (3.5-5.0); Alkaline Phosphatase 70 U/L (39-117); Anion Gap 13 (12-20); Aspartate Amino Transferase 68 U/L (5-31); Bilirubin Total 0.7 mg/dL (0.0-1.0); Blood Urea Nitrogen 15 mg/dL (9-16); Calcium 8.1 mg/dL (8.4-10.2); Carbon Dioxide 22 mmol/L (22-29); Chloride 110 mmol/L (96-108); Creatinine Clr Calc Pharmacy 81.2; Estimated Glomerular Filt Rate > 60; Glucose Random 97 mg/dL (60-115); Potassium 3.8 mmol/L (3.3-5.1); Sodium 141 mmol/L (135-145); Total Protein 6.3 g/dL (6.5-8.0)
--- NOTE | 2024-06-21 23:19 | PC.NURSE ---
Pt ambulated to BR with slow steady gait, reports using cane at home.
[2024-06-21] MEDS: methocarbamoL 750 MG TABLET 1500 MG PO (23:39)
--- NOTE | 2024-06-21 23:50 | PC.NURSE ---
Took over care from RUFUS Hastings, medicated pt, wrist splint applied and IV removed.
--- NOTE | 2024-06-21 23:53 | PC.NURSE ---
reviewed discharge instructions with pt. pt verbalized understanding, on sign of distress.
== END 2024-06-21 23:57 | disposition home or self-care (01) ==
PROVIDERS: Physician Assistant Medical; Emergency Provider Emergency Medicine; PCP Internal Medicine
DX: S63.501A Unspecified sprain of right wrist, initial encounter (principal); S20.219A Contusion of unspecified front wall of thorax, initial encounter; S80.01XA Contusion of right knee, initial encounter; W01.0XXA Fall on same level from slipping, tripping and stumbling without subsequent striking against object, initial encounter; Y93.9 Activity, unspecified; Y92.9 Unspecified place or not applicable; Y99.9 Unspecified external cause status
CPT/HCPCS: 36415; 70450; 71250; 72125; 73110; 73562; 80053; 83735; 85025; 96374; 96375; 99284; J2270

== ENCOUNTER → 2024-06-21 19:30 | Outpatient (BNV) | payer MEDICARE, SELFPAY | PROVIDERS: Emergency Provider Emergency Medicine; PCP Internal Medicine; Visit Provider Specialist | DX: M17.11 Unilateral primary osteoarthritis, right knee (principal); M25.531 Pain in right wrist; S00.93XA Contusion of unspecified part of head, initial encounter; M54.2 Cervicalgia; J90 Pleural effusion, not elsewhere classified | CPT/HCPCS: 70450; 71250; 72125; 73110; 73562 ==

== ENCOUNTER 2024-07-30 14:28 | Outpatient (AMB) | payer MEDICARE, SELFPAY ==
--- OUTSIDE RECORDS SUMMARY | 2024-07-30 14:31 | XMS_ITS | CCD ---
Author Name Interface, [id number] lity Address [place] [address] Organization [facility] Address [place] [address] Care Team Providers Care Ocean Biologist Name Role Phone Lay Sánchez Unavailable Unavailable Allergies and Adverse Reactions Medication/Group Name Reaction Severity Date No known allergies Reason for Visit Functional Status Date Name Score 03/18/2013 Karnofsky performance status 90 Medications Date Name Route Dose Frequency Instructions Start Date End Date Status 03/18/19 14 Zolpidem Oral Tablet PO 1.0 TABLET( S) QHS PRN sleep 03/18/19 14 active 03/18/19 14 Cyanocobalamin Oral PO 1.0 TABLET( S) as directed 03/18/19 14 active 03/18/19 14 Duloxetine Oral Delayed Release PO 1.0 CAPSULE (S) BID 03/18/19 14 active 03/18/19 14 Miscellaneous Drug PO 1.0 TABLET( S) daily 03/18/19 14 active Problems Diagnosis Status Date of Diagnosi s Itching (finding) Active Easy bruising (finding) Active Pins and needles (finding) Active Depressive disorder (disorder) Active Hazy vision (disorder) Active Pica (disorder) Active Iron deficiency anemia (disorder) Active Sleep disorder (disorder) Active Peripheral nerve disease (disorder) Active Nocturia (finding) Active Anemia (disorder) Active Normocytic normochromic anemia (disorder) Active Numbness (finding) Active Arthritis (disorder) Active Eruption of skin (disorder) Active Insomnia (disorder) Active Fatigue (finding) Active Excessive tear production (finding) Active Social History Date Name Value Sex Female
--- NOTE | 2024-07-30 14:34 | A.OFFVIS_ITS ---
Vital Signs 07/30/24 14:41 Height 5 ft 3 in Weight 175 lb 0.752 oz BMI 31.0 BP 124/70 Blood Pressure Location Lt brachial Position Sitting Pulse 69 Pulse Source Pulse Oximeter Pulse Oximetry (%) 99 Oxygen Delivery Method Room Air Intake Visit Reasons: follow u/ req Intake Note: Patient presents for Dermatomyositis follow up. Allergies No Known Allergies Allergy (Verified 07/30/24 14:40) Medication List - Last Reconciled 07/30/24 by Kasandra Pinto MD alendronate 70 mg PO QWEEK citalopram 20 mg PO DAILY clobetasol 0.05% 1 appl topical BID clonidine HCl 0.2 mg PO BEDTIME furosemide 40 mg PO DAILY hydroxyzine HCl 50 mg PO TID PRN methocarbamol 1,500 mg (2 x 750 mg) PO Q8H PRN methylprednisolone Three tablets for 30 days then 2 tablets for 30 days then 1 tablet for 30 days then stop mycophenolate mofetil 1,000 mg (2 x 500 mg) PO BID 90 days potassium chloride ER 10 mEq PO DAILY rituximab (Rituxan) 1,000 mg (100 mL) IV Q14D 4 doses tacrolimus 0.1% 1 appl topical BID tamoxifen 20 mg (2 x 10 mg) PO DAILY vitamins A,C,V-itcz-pjxvtu 4,296 mcg-226 mg-90 mg (PreserVision AREDS) 1 cap PO BID HPI Comments Details: Patient is a 69-year-old female with heart failure with preserved ejection fraction, chronic major depression, hypertension, anxiety, breast cancer currently in remission, TIF 1 gamma refractory dermatomyositis here today for follow up Interval History: Patient last seen 05/28/2024 with me. At that time she was following up for her dermatomyositis and complaining of a severe scalp rash. She was sent to Dermatology. Dermatology saw patient her rashes consistent with severe dermatomyositis. 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 She is here today to follow up after that. Today, Patient fell in the parking lot, complaining of weakness of her right leg. Otherwise patient is stable Rheumatologic History: Patient with Tif 1 gamma positive antibody dermatomyositis Found to have breast cancer in 2021. Patient last seen 12/04/2023. At that time she had started PT, had gone to 3 sessions, but stating that her muscle weakness is about the same. Receiving IVIG 2 grams/kilogram every 4 weeks. Azathioprine was recently discontinued She was started on hydroxychloroquine at that visit Skin biopsy 07/2021 +++TIF gamma Ab Dr Krishna 08/10/2021 prednisone started. azathioprine added OSIRIS 1:80, CPK 991, marked proximal muscle weakness, CLARK neg, anti-SRP negative; aldolase WNL Associated breast cancer found 11/2021: Azathioprine stopped due to chemoRx 11/2021: flare of skin rash with taper of prednisone to 30mg 12/2021: monthly IV IVIG started 02/2022: prednisone stopped. Aza restarted. DC in 2023 due to pancytopenia 11/2023: Hydroxychloroquine started - DC 01/2024 due to worsening rash 02/2024: Worsening dermatomyositis with rash and muscle weakness Repeat PET Scan without evidence of recurrent cancer 03/2024 Attempted to get tofacitinib approved but this was denied by insurance 03/2024: Rituxumab 2000mg every 6 months IV Current Rheumatology Medication(s): IVIG 2g/kg every month Rituxumab 2000mg IV every 6 months given in 1000mg divided doses Medrol 4mg daily [facility] Medical History (Updated 07/30/24 @ 15:16 by Kasandra Pinto MD) Encounter for monitoring rituximab therapy Long-term current use of intravenous immunoglobulin (IVIG) Plaquenil adverse reaction in therapeutic use Nocturnal cough Pleural effusion History of right breast cancer Axillary adenopathy Bacteremia due to Klebsiella pneumoniae SIRS (systemic inflammatory response syndrome) Acute hypokalemia UTI (urinary tract infection) Abdominal pain Anemia Atrial arrhythmia Acute on chronic heart failure with preserved ejection fraction (HFpEF) CHF (congestive heart failure) Acute diastolic (congestive) heart failure Pancytopenia Diarrhea Pancolitis Colitis Nonsustained supraventricular tachycardia Port-A-Cath in place Pain in both feet Pedal edema History of COVID-19 Invasive ductal carcinoma of right breast Breast cancer, right Dermatomyositis Breast calcification, right Encounter to establish care Lumbar degenerative disc disease Hypertension Major depression, chronic Insomnia Anxiety Surgical History Hx of colonoscopy Status post right breast lumpectomy History of arthroscopic knee surgery History of hysterectomy History of section History of cholecystectomy History of gastric bypass History of fusion of cervical spine History of tonsillectomy Family History Mother No problems noted. Father Breast cancer Bone cancer Brother Substance use disorder Paternal Aunt Breast cancer Social History Household Members: Significant Other, Family and Children Housing: House Are you a primary landcare officer to a significant other at home: No Do you presently have visiting nurse or other home services: Yes ([facility]NA) Alcohol intake: former Comment: Pedal Edema and pain- uses cane Patient Tobacco Use Status: Former Tobacco user Tobacco use type: Cigarette e-Cigarette/Vaping Use: Never Used Second Hand Smoke Exposure: Yes Advance Directives Date on File: 11/28/21 service: No Current occupational status: unemployed and retired Cognitive needs: No Hearing needs: No Vision needs: Yes (glasses) Female Reproductive History Menstrual Age of Menarche: 17 Review of Systems Const Details: Review of Systems Constitutional: Denies fever, chills, weight loss ENT: Denies vision changes, eye pain or eye redness, dental caries, dry mouth GI: Denies nausea, vomiting, diarrhea, abdominal pain, change in BM Pulm: Denies SOB, SUMNER, hemoptysis, wheezing Cards: Denies chest pain, palpitations Skin: Denies Raynaud's, rash, nail changes, photosensitivity, RN FIRST ASSIST: Denies headaches, weakness, paresthesias, recurrent falls MSK: as per HPI All other systems reviewed and are unremarkable except noted above Physical Exam Vital Signs: Last Vital Signs Pulse 69 07/30/24 14:41 BP 124/70 07/30/24 14:41 Pulse Ox 99 07/30/24 14:41 Oxygen Delivery Method Room Air 07/30/24 14:41 BMI result Body Mass Index 31.0 Vital signs reviewed Physical Examination CONSTITUITIONAL Patient alert and cooperative. Well appearing and in no apparent painful distress HEENT Conjunctiva and sclera clear. ?Pupils equal round and reactive to light. ?No lymphadenopathy. ? CHEST/RESPIRATORY SYSTEM Normal respiratory effort and able to speak in complete sentences. ?Clear to auscultation bilaterally. ?No crackles, rales, rhonchi, wheezes heard. CARDIAC SYSTEM Regular rate and rhythm. ?S1 and S2 heard no murmurs. ?Radial pulses intact bilaterally MSK Hands: ?Good puttying and calking supervisor strength bilaterally. No deformities noted. ?No synovitis noted to the MCPs, PIPs or DIPs. ?No tenderness to palpation of these joints. Wrists: ?Full range of motion at the wrists without pain. ?No tenderness to palpation or synovitis noted to the wrists. Elbows: Full range of motion without pain. No tenderness, weakness, swelling, increased warmth or erythema. Shoulders: Full range of motion without pain. No tenderness, weakness, swelling, increased warmth or erythema. Hips: Full range of motion without pain. Hip bursa: No tenderness to palpation Knees: ?Full range of motion. ?No tenderness, swelling, increased warmth or erythema.?No effusion or crepitations Ankles: Full range of motion. ?No tenderness, swelling, increased warmth or erythema.? Feet: ?Negative squeeze test. ?No tenderness to palpation or swelling of the MTPs. Tender points:?No tenderness to palpation of the bilateral trapezius, supraspinatus, greater trochanters, anterior costochondral junctions, bilateral gluteal areas, bilateral suboccipital muscle insertions SKIN Faint erythematous rash noted overlying face. Rash on back has resolved. Faint erythematous rash on upper chest area. Rash on hands and trunk have improved Patient with severe flaky and waxy rash in the patient's head. Patient shaved her hair off Right Left Neck flexion Spine Supervisor strength 5 5 Elbow flexion 5 5 Elbow extension 5 5 Shoulder abduction 4- 4 Shoulder adduction 4- 4 Hip flexion 4- 4 Knee flexion 5 5 Knee extension 5 5 Ankle dorsiflexion 5 5 Ankle plantarflexion 5 5 Results Reviewed Results Reviewed: Laboratory Tests 06/24/24 07/16/24 07:54 10:59 WBC 2.1 L RBC 3.87 L Hgb 9.7 L Hct 31.9 L ESR 8 Sodium 143 Potassium 3.2 L Chloride 111 H Carbon Dioxide 24 BUN 22 H Creatinine 0.69 AST 29 ALT 10 Alkaline Phosphatase 64 Total Creatine Kinase 45 C-Reactive Protein < 0.10 Assessment & Plan Assessment & Plan (1) Dermatomyositis: Comment: on skin biopsy 07/2021 +++TIF gamma Ab- Dr Krishna 08/10/2021 prednisone started. azathioprine added OSIRIS 1:80, CPK 991, marked proximal muscle weakness, CLARK neg, anti-SRP negative; aldolase WNL Associated breast cancer found 11/2021: Azathioprine stopped due to chemoRx 11/2021: flare of skin rash with taper of prednisone to 30mg 12/2021: monthly IV IVIG started 02/2022: prednisone stopped. Aza restarted. DC in 2023 due to pancytopenia Hydroxychloroquine started 11/2023, DC 01/2024 due to worsening rash 03/2024: Rituxumab started Code(s): M33.90 - Dermatopolymyositis, unspecified, organ involvement unspecified Category: Medical Plan: #Dermatomyositis Patient is a 69-year-old female with TIF 1 gamma antibody positive dermatomyositis. Associated with breast cancer that is current in remission. Patient's dermatomyositis has been refractory with a breakthrough rash on IVIG monotherapy, currently on dual therapy with IVIG and Rituximab. Repeat PET scan negative 03/2024 for recurrence of malignancy. With this regimen there has been improvement in CK, muscle strength and rashes. However she has been having worsening have a scaly rash involving her entire head which is also associated with significant hair loss. Discuss the case with Dr. Isabel (dermatology) patient is having a severe dermatomyositis rash. Recommendations for treatment include CellCept, anifrolumab, tofacitinib Plan - Start MMF 1000mg bid - MRI Right thigh - Continue Monthly IVIG 2g/kg over 2 days - Continue Rituxumab 2000mg IV every 6 months divided into 2 1000mg doses 14 days apart - Medrol 4mg daily - Appreciate Dermatology follow up - RTC 2 months - Labs before visit: CBC, CMP, ESR, CRP, CK, Aldolase, Immunoglobulins, Hepatitis panel, lymphocyte subsets (2) Hypokalemia: Code(s): E87.6 - Hypokalemia Category: Medical Plan: #Hypokalemia Patient with persistent hypokalemia likely in the setting of her Lasix use. Continue K supplementation (3) Long-term current use of intravenous immunoglobulin (IVIG): Code(s): Z79.899 - Other residential (current) drug therapy Category: Medical Plan: #Long-term use of IVIG Discussed with this patient the risks and benefits of IVIG use to the management of the rheumatic condition Benefits include improved disease control and maintenance of remission Risks include anaphylaxis, blood clots, transfusion related acute lung injury, hemolytic reaction, fluid overload, heart problems (4) Encounter for monitoring rituximab therapy: Code(s): Z51.81 - Encounter for therapeutic drug level monitoring; Z79.620 - penitentiary (current) use of immunosuppressive biologic Category: Medical Plan: #Long-term Use of Rituxumab Discussed with this patient the risks and benefits of rituximab use to the management of the rheumatic condition Benefits include improved disease control and maintenance of remission Risks include hypogammaglobulinemia and increased risk of opportunistic infections, reactivation of hepatitis-B, infusion reactions Monitoring: ?Immunoglobulins, hepatitis-B serologies, CBC (5) Encounter for residential use of mycophenolate mofetil: Code(s): Z79.624 - penitentiary (current) use of inhibitors of nucleotide synthesis Plan: #Long-term Use of Mycophenolate/Mycophenolic Acid Discussed with patient the benefits and risks of mycophenolate/mycophenolic acid for the management of the rheumatic condition Benefits include improved disease control and reduction of mortality Risks include GI upset especially diarrhea, anemia, leukopenia, hepatotoxicity, lymphoproliferative malignancies, PML Mycophenolate and mycophenolic acid are teratogenic and should be avoided in patients who are desiring the Monitoring: ?CBC, LFTs, BMP Recommended holding medication during and for up to 1 week after resolution of a febrile illness Plan I spent 30 minutes reviewing the record and labs, taking a history, examining th e patient, discussing the treatment plan, ordering diagnostic work up and documenting in the medical record Orders: Orders MR femur RT wo con Today M33.90 - Dermatopolymyositis, unspecified, organ involvement unspecified Medications: New mycophenolate mofetil 1,000 mg (2 x 500 mg) PO BID 90 days 360 tabs 1RF M33.90 - Dermatopolymyositis, unspecified, organ involvement unspecified Coding Level of Care Code Est Pt Level 4 (02018) Complex EM visit Add On G2211 Diagnoses Dermatomyositis M33.90 Hypokalemia E87.6 Long-term current use of intravenous immunoglobulin (IVIG) Z79.899 Encounter for monitoring rituximab therapy Z51.81; Z79.620 Encounter for residential use of mycophenolate mofetil Z79.624
[2024-07-30 14:41] VITALS: BP 124/70; PULSE 69; O2SAT 99; BMI 31.0
== END 2024-07-30 15:23 | disposition home or self-care (01) ==
LOC: HO.RHE 14:28
PROVIDERS: PCP Internal Medicine; Visit Provider Student in an Organized Health Care Education/Training Program
DX: M33.90 Dermatopolymyositis, unspecified, organ involvement unspecified (principal); E87.6 Hypokalemia; Z79.899 Other long term (current) drug therapy; Z51.81 Encounter for therapeutic drug level monitoring; Z79.620 Long term (current) use of immunosuppressive biologic; Z79.624 Long term (current) use of inhibitors of nucleotide synthesis
CPT/HCPCS: 99214; G2211

== ENCOUNTER → 2024-07-30 14:28 | Outpatient (BNVA) | payer MEDICARE, SELFPAY | PROVIDERS: PCP Internal Medicine; Visit Provider Student in an Organized Health Care Education/Training Program | DX: M33.90 Dermatopolymyositis, unspecified, organ involvement unspecified (principal); E87.6 Hypokalemia; Z51.81 Encounter for therapeutic drug level monitoring; Z79.620 Long term (current) use of immunosuppressive biologic; Z79.624 Long term (current) use of inhibitors of nucleotide synthesis; Z79.899 Other long term (current) drug therapy | CPT/HCPCS: 99212 ==

== ENCOUNTER 2024-08-07 18:10 | Outpatient (REF) | payer MEDICARE, SELFPAY ==
--- NOTE | ~2024-08-07 | MR_ITS ---
CLINICAL HISTORY: M33.13 - Other dermatomyositis without myopathy --- Additional Notes or Special Ins tructions: patient with dermatomyositis with worsening muscle weakness bilateral MR of the left femur without contrast Comparison: None Findings: Normal marrow signal. There is edema in the musculature, particularly within the the adductor musculature. Mild amount of edema within quadriceps musculature. There is also focal edema within gluteus medius/minimus near the insertion upon the greater trochanter without bursitis. Atrophy is present and most prominent within the gluteal and hamstring musculature. There is decreased signal within the distal adductor musculature which may indicate calcification which is associated with the tendon; calcification can be seen in the setting of dermatomyositis. Calcific tendinitis is considered less likely. Extensive edema throughout the subcutaneous fat. No fluid collection. Fluid tracks superficial to the vastus lateralis muscle Small bilateral hip joint effusions. Partially visualized moderate-sized bilateral knee joint effusions. Impression: Edema within the subcutaneous and musculature consistent with the given history of dermatomyositis. This document has been electronically signed by: Janice Saldivar MD on 08/07/2024 20:47:26
--- NOTE | ~2024-08-07 | MR_ITS ---
CLINICAL HISTORY: M33.90 - Dermatopolymyositis, unspecified, organ involvement unspecified --- Additi onal Notes or Special Instructions: Patient with dermatomyositis on treatment with new weakness of th e right MR of the right femur without contrast Comparison: None Findings: Normal marrow signal. There is edema in the musculature, particularly within the quadriceps musculature and within adductor musculature. There is also focal edema within gluteus medius/minimus near the insertion upon the greater trochanter without bursitis. Atrophy is present and most prominent within the gluteal and hamstring musculature. No decreased signal to indicate calcification. Extensive edema throughout the subcutaneous fat. No fluid collection. Fluid tracks superficial to the vastus lateralis muscle Partially visualized moderate-sized bilateral knee joint effusions. Impression: Edema within the subcutaneous and musculature consistent with the given history of dermatomyositis. This document has been electronically signed by: Janice Saldivar MD on 08/07/2024 20:41:31
== END 2024-08-07 18:11 | disposition home or self-care (01) ==
LOC: HO.MRI 18:10
PROVIDERS: PCP Internal Medicine; Visit Provider Student in an Organized Health Care Education/Training Program
DX: M33.13 Other dermatomyositis without myopathy (principal); M33.90 Dermatopolymyositis, unspecified, organ involvement unspecified
CPT/HCPCS: 73718

== ENCOUNTER → 2024-08-07 18:24 | Outpatient (BNV) | payer MEDICARE, SELFPAY | PROVIDERS: PCP Internal Medicine; Visit Provider Radiology Diagnostic Radiology | DX: M33.13 Other dermatomyositis without myopathy (principal) | CPT/HCPCS: 73718 ==

== ENCOUNTER 2024-08-17 14:11 | Outpatient (AMB) | payer MEDICARE, SELFPAY ==
--- NOTE | 2024-08-17 14:15 | MHC.OFFVIS ---
Vital Signs 08/17/24 14:19 Height 5 ft 3 in Weight 163 lb 2.273 oz BMI 28.9 BP 110/58 L Blood Pressure Location Lt brachial Position Sitting Pulse 70 Intake Visit Reasons: f/up-after testing rs Intake Note: Follow-up after heart doing good Compound Worker Required: No Allergies No Known Allergies Allergy (Verified 07/30/24 14:40) Medication List - Last Reconciled 08/17/24 by Josias Hameed MD alendronate 70 mg PO QWEEK citalopram 20 mg PO DAILY clobetasol 0.05% 1 appl topical BID clonidine HCl 0.2 mg PO BEDTIME furosemide 20 mg PO DAILY furosemide 40 mg PO DAILY hydroxyzine HCl 50 mg PO TID PRN methocarbamol 1,500 mg (2 x 750 mg) PO Q8H PRN mycophenolate mofetil 1,000 mg (2 x 500 mg) PO BID 90 days potassium chloride ER 20 mEq PO DAILY tacrolimus 0.1% 1 appl topical BID tamoxifen 20 mg (2 x 10 mg) PO DAILY tofacitinib ER 11 mg PO DAILY vitamins A,C,F-dmzk-bpjsds 4,296 mcg-226 mg-90 mg (PreserVision AREDS) 1 cap PO BID HPI Comments Details: Kate comes for follow-up. She has been diagnose with dermatomyositis. She says she has been noticing increasing exertional shortness of breath. No clear orthopnea, PND. She says intermittently she notices weight gain but does not take extra diuretics. She thinks this is related to fluid overload. She is currently taking 60 mg of Lasix. She denies any prolonged palpitation irregular heartbeat. No exertional chest pain. No lightheadedness, syncope. [facility] Medical History Encounter for monitoring rituximab therapy Long-term current use of intravenous immunoglobulin (IVIG) Plaquenil adverse reaction in therapeutic use Nocturnal cough Pleural effusion History of right breast cancer Axillary adenopathy Bacteremia due to Klebsiella pneumoniae SIRS (systemic inflammatory response syndrome) Acute hypokalemia UTI (urinary tract infection) Abdominal pain Anemia Atrial arrhythmia Acute on chronic heart failure with preserved ejection fraction (HFpEF) CHF (congestive heart failure) Acute diastolic (congestive) heart failure Pancytopenia Diarrhea Pancolitis Colitis Nonsustained supraventricular tachycardia Port-A-Cath in place Pain in both feet Pedal edema History of COVID-19 Invasive ductal carcinoma of right breast Breast cancer, right Dermatomyositis Breast calcification, right Encounter to establish care Lumbar degenerative disc disease Hypertension Major depression, chronic Insomnia Anxiety Surgical History Hx of colonoscopy Status post right breast lumpectomy History of arthroscopic knee surgery History of hysterectomy History of section History of cholecystectomy History of gastric bypass History of fusion of cervical spine History of tonsillectomy Family History Mother No problems noted. Father Breast cancer Bone cancer Brother Substance use disorder Paternal Aunt Breast cancer Social History Household Members: Significant Other, Family and Children Housing: House Are you a primary auto care center manager to a significant other at home: No Do you presently have visiting nurse or other home services: Yes (VNA) Alcohol intake: former Comment: Pedal Edema and pain- uses cane Patient Tobacco Use Status: Former Tobacco user Tobacco use type: Cigarette e-Cigarette/Vaping Use: Never Used Second Hand Smoke Exposure: Yes Advance Directives Date on File: 11/28/21 service: No Current occupational status: unemployed and retired Cognitive needs: No Hearing needs: No Vision needs: Yes (glasses) Female Reproductive History Menstrual Age of Menarche: 17 Review of Systems Const Denies chills, Denies fatigue, Denies fever(s), Denies frequent falls, Denies weakness, Denies weight gain and Denies weight loss ENT Denies dizziness Card Denies chest pain, Denies leg edema, Denies lightheadedness, Denies palpitations, Denies dyspnea, Denies dyspnea on exertion, Denies orthopnea and Denies other (loss of consciousness) Resp Denies cough, Denies dyspnea and Denies dyspnea on exertion GI Denies hematochezia and Denies change in stool character Musc Denies abnormal gait, Denies muscle weakness, Denies numbness, Denies radiating pain into limb and Denies tingling Neuro Denies abnormal gait, Denies dizziness, Denies frequent falls, Denies numbness, Denies tingling and Denies weakness Endo Denies fatigue and Denies palpitations Physical Exam Vital Signs: Last Vital Signs Pulse 70 08/17/24 14:19 BP 110/58 L 08/17/24 14:19 BMI result Body Mass Index 28.9 Const General: cooperative, comfortable, no acute distress, alert and awake Nutritional Appearance: obese Limitations: ambulation with cane Neck Neck: Yes trachea midline, Yes supple and Yes no JVD Resp Effort & Inspection: normal respiratory effort Auscultation: clear to auscultation bilaterally Cardio Jugular venous distension: no JVD Palpation: normal PMI Rate: regular rate Rhythm: regular rhythm Heart sounds: S1 normal heart sound present, S2 normal heart sound present, no click, no gallops and no murmurs GI Auscultation: normal bowel sounds Neuro General: no focal motor deficits Extrem General: Yes no clubbing, cyanosis or edema Assessment & Plan Assessment & Plan (1) CHF (congestive heart failure): Code(s): I50.9 - Heart failure, unspecified Category: Medical Plan: Patient with prior history of congestive heart failure, diastolic in nature. Clinically having increased symptoms of shortness of breath. No clinical signs of fluid overload. Will check for BNP and BNP. Possibly related to anemia in the setting of diastolic dysfunction. Question underlying lung issues. Seeing pulmonary tomorrow. Will adjust diuretic dose based on blood work. If significantly no abnormalities to suggest echocardiogram to evaluate LV systolic and diastolic function to evaluate for pulmonary hypertension. These tests will be scheduled in near future. Low-salt diet was discussed additional diuretics as need be. (2) Aortic stenosis: Code(s): I35.0 - Nonrheumatic aortic (valve) stenosis Category: Medical Plan: Aortic stenosis she has mi and clinically appears to be mild. Continue monitor by echocardiogram. Will follow-up echocardiogram in near future if need be. Continue aggressive blood pressure control. Continue aggressive goal LDL less than 100 mg/dL. Will follow up in the clinic in 6 months time, sooner p.r.n.. Thank you for allowing me to partake in her care Orders: Orders Basic Metabolic Panel Today Josias Hameed MD I50.9 - Heart failure, unspecified B Type Natriuretic Peptide Today Josias Hameed MD I50.9 - Heart failure, unspecified Medications: Changed From potassium chloride ER 10 mEq PO DAILY 90 tabs 1RF E87.6 - Hypokalemia To potassium chloride ER 20 mEq PO DAILY E87.6 - Hypokalemia Kasandra Pinto MD Coding Level of Care Code Est Pt Level 4 (31993) Complex EM visit Add On G2211 Diagnoses CHF (congestive heart failure) I50.9 Aortic stenosis I35.0
[2024-08-17 14:19] VITALS: BP 110/58; PULSE 70; BMI 28.9
--- OUTSIDE RECORDS SUMMARY | 2024-08-17 16:09 | XMS_ITS | CCD ---
Author Name Interface, [id number] lity Address [place] [address] [facility] Address [place] breakthroughs. [place] [address] Care Team Providers Care Utility Person Name Role Phone Lay Sánchez Unavailable Unavailable Allergies and Adverse Reactions Reason for Visit Functional Status Medications Problems Social History
== END 2024-08-17 14:43 | disposition home or self-care (01) ==
LOC: HO.HCS 14:12
PROVIDERS: PCP Internal Medicine; Visit Provider Internal Medicine Cardiovascular Disease
DX: I50.9 Heart failure, unspecified (principal); I35.0 Nonrheumatic aortic (valve) stenosis
CPT/HCPCS: 99214; G2211

== ENCOUNTER 2024-08-17 14:11 | Outpatient (REF) | payer MEDICARE, SELFPAY ==
[2024-08-17 15:50] LABS: Anion Gap 10 (12-20); Blood Urea Nitrogen 14 mg/dL (9-16); Calcium 8.4 mg/dL (8.4-10.2); Carbon Dioxide 24 mmol/L (22-29); Chloride 110 mmol/L (96-108); Estimated Glomerular Filt Rate > 60; Glucose Random 140 mg/dL (60-115); Sodium 141 mmol/L (135-145)
[2024-08-17 15:53] LABS: B Type Natriuretic Peptide 141 pg/mL (<100)
== END 2024-08-17 14:12 | disposition home or self-care (01) ==
LOC: HO.LAB 14:11
PROVIDERS: PCP Internal Medicine; Visit Provider Internal Medicine Cardiovascular Disease
DX: I50.9 Heart failure, unspecified (principal); I35.0 Nonrheumatic aortic (valve) stenosis
CPT/HCPCS: 36415; 80048; 83880; 99212

== ENCOUNTER 2024-08-18 09:51 | Outpatient (AMB) | payer MEDICARE, SELFPAY ==
--- NOTE | 2024-08-18 09:52 | MHC.OFFVIS ---
Vital Signs 08/18/24 09:59 Height 5 ft 3 in Weight 164 lb BMI 29.0 BP 134/60 Blood Pressure Location Rt brachial Position Sitting Pulse 76 Intake Visit Reasons: breast exam Intake Note: Patient here for a annual breast exam. Hx of Rt br CA (txt: Radiation/ Chemo). Patient c/o: no concerns. Denies breast pain, redness, nipple discharge. Mammogram: 03-19-2024 [employer] Hand Required: No Accompanied by: Self / Same As Patient Allergies No Known Allergies Allergy (Verified 08/18/24 09:58) HPI HPI breast exam: Details: She is here for follow-up for her right breast cancer, invasive ductal, and she had undergone lumpectomy and sentinel biopsy last October 2021. She had a T1 N1 lesion at that time. She had undergone chemotherapy with Dr. Hernández and was on THCP regimen She says she has she feels well overall. She is being followed by Dr. Hernández. She denies any palpable breast masses. Her last mammogram was in March, and there were benign findings then. She has had worsening dermatomyositis and has actually shaving her scalp because of multiple bowel spots. [facility] Medical History Encounter for monitoring rituximab therapy Long-term current use of intravenous immunoglobulin (IVIG) Plaquenil adverse reaction in therapeutic use Nocturnal cough Pleural effusion History of right breast cancer Axillary adenopathy Bacteremia due to Klebsiella pneumoniae SIRS (systemic inflammatory response syndrome) Acute hypokalemia UTI (urinary tract infection) Abdominal pain Anemia Atrial arrhythmia Acute on chronic heart failure with preserved ejection fraction (HFpEF) CHF (congestive heart failure) Acute diastolic (congestive) heart failure Pancytopenia Diarrhea Pancolitis Colitis Nonsustained supraventricular tachycardia Port-A-Cath in place Pain in both feet Pedal edema History of COVID-19 Invasive ductal carcinoma of right breast Breast cancer, right Dermatomyositis Breast calcification, right Encounter to establish care Lumbar degenerative disc disease Hypertension Major depression, chronic Insomnia Anxiety Surgical History Hx of colonoscopy Status post right breast lumpectomy History of arthroscopic knee surgery History of hysterectomy History of section History of cholecystectomy History of gastric bypass History of fusion of cervical spine History of tonsillectomy Family History Mother No problems noted. Father Breast cancer Bone cancer Brother Substance use disorder Paternal Aunt Breast cancer Social History Household Members: Significant Other, Family and Children Housing: House Are you a primary medication care manager to a significant other at home: No Do you presently have visiting nurse or other home services: Yes ([facility]) Alcohol intake: former Comment: Pedal Edema and pain- uses cane Patient Tobacco Use Status: Former Tobacco user Tobacco use type: Cigarette e-Cigarette/Vaping Use: Never Used Second Hand Smoke Exposure: Yes Advance Directives Date on File: 11/28/21 service: No Current occupational status: unemployed and retired Cognitive needs: No Hearing needs: No Vision needs: Yes (glasses) Female Reproductive History Menstrual Age of Menarche: 17 Review of Systems Const Denies chills and Denies fever(s) Card Denies chest pain, Denies dyspnea and Denies dyspnea on exertion Resp Denies cough, Denies dyspnea and Denies dyspnea on exertion GI Denies hematochezia and Denies change in bowel habits Denies hematuria Musc Reports back pain, Reports arthralgias and Denies limited range of motion Neuro Denies focal weakness and Denies convulsions Psych Denies depression and Denies mood swings Physical Exam Vital Signs: Last Vital Signs Pulse 76 08/18/24 09:59 BP 134/60 08/18/24 09:59 BMI result Body Mass Index 29.0 Const General: comfortable and no acute distress Orientation/consciousness: patient oriented x3 Neck Neck: Yes no lymphadenopathy Chest Other: radiation changes to the right breast, with scar from her previous lumpectomy, no palpable breast masses, no axillary lymphadenopathy on both sides Resp Auscultation: clear to auscultation bilaterally Cardio Rhythm: regular rhythm GI Palpation (GI): Soft to palpation, nontender and no guarding Neuro General: patient oriented x3 Assessment & Plan Assessment & Plan (1) History of right breast cancer: Code(s): Z85.3 - Personal history of malignant neoplasm of breast Category: Medical Plan: She continues to do well after lumpectomy and sentinel node biopsy in 2021. He has completed chemotherapy and radiation Her last mammogram in March, it not show any suggestion of new lesion I reminded her to continue with her regular mammograms. She is also to continue to follow up with as well. She is on tamoxifen as she is ER receptor positive. I will see her again in the office next year. Coding Level of Care Code Est Pt Level 3 (20811) Complex EM visit Add On G2211 Diagnoses History of right breast cancer Z85.3
[2024-08-18 09:59] VITALS: BP 134/60; PULSE 76; BMI 29.0
--- OUTSIDE RECORDS SUMMARY | 2024-08-18 11:04 | XMS_ITS | CCD ---
Author Name Interface, [id number] lity Address [place] [address] [facility] Address [place] [address] Care Team Providers Care Child Protective Services Social Worker Name Role Phone Lay Sánchez Unavailable Unavailable Allergies and Adverse Reactions Reason for Visit Functional Status Medications Problems Social History
== END 2024-08-18 10:20 | disposition home or self-care (01) ==
LOC: HO.HGS 09:51
PROVIDERS: PCP Internal Medicine; Visit Provider Surgery
DX: Z85.3 Personal history of malignant neoplasm of breast (principal)
CPT/HCPCS: 99213; G2211

== ENCOUNTER → 2024-08-18 09:51 | Outpatient (BNVA) | payer MEDICARE, SELFPAY | PROVIDERS: PCP Internal Medicine; Visit Provider Surgery | DX: Z85.3 Personal history of malignant neoplasm of breast (principal) | CPT/HCPCS: 99212 ==

== ENCOUNTER 2024-08-26 08:09 | Outpatient (REF) | payer MEDICARE, SELFPAY ==
--- OUTSIDE RECORDS SUMMARY | 2024-08-26 08:24 | XMS_ITS | CCD ---
Author Name Interface, [id number] lity Address [place] [address] [facility] Address [place] [address] Care Team Providers Care Printing Equipment Mechanic Name Role Phone Lay Sánchez Unavailable Unavailable Allergies and Adverse Reactions Reason for Visit Functional Status Medications Problems Social History
[2024-08-26 09:02] LABS: Potassium 2.6 mmol/L (3.3-5.1)
[2024-08-26 09:03] LABS: Anion Gap 10 (12-20); Blood Urea Nitrogen 18 mg/dL (9-16); Calcium 8.2 mg/dL (8.4-10.2); Carbon Dioxide 27 mmol/L (22-29); Chloride 107 mmol/L (96-108); Estimated Glomerular Filt Rate 54; Glucose Random 155 mg/dL (60-115); Sodium 141 mmol/L (135-145)
[2024-08-26 09:06] LABS: B Type Natriuretic Peptide 182 pg/mL (<100)
== END 2024-08-26 08:10 | disposition home or self-care (01) ==
LOC: HO.LAB 08:09
PROVIDERS: PCP Internal Medicine; Visit Provider Internal Medicine Cardiovascular Disease
DX: I50.9 Heart failure, unspecified (principal)
CPT/HCPCS: 36415; 80048; 83880

== ENCOUNTER 2024-08-26 09:53 | Emergency (ER) | payer MEDICARE, SELFPAY ==
[2024-08-26 10:01] VITALS: BP 134/52; PULSE 55; RESP 15; TEMP 36.7; O2SAT 99; BMI 29.0
--- NOTE | 2024-08-26 10:04 | ED.GENADULT ---
HPI - General Adult General Chief complaint: Recheck/Abnormal Lab/Rx Stated complaint: low potassium Time Seen by Provider: 08/26/24 10:04 Source: patient, RN notes reviewed and old records reviewed Mode of arrival: wheelchair Limitations: no limitations History of Present Illness ED Provider: Howard HPI narrative: Patient is a 69-year-old female with history of dermatomyositis on IVIG therapy, neuropathy, leukopenia, hypertension, anxiety and depression presenting with report of hypokalemia on labs check this morning. Patient was scheduled to have IVIG therapy, however, was sent to the ED when her potassium level was received at 2.6. Patient reports that Dr. Hameed recently increased her furosemide from 60 mg per day to 40 mg b.i.d.. She denies any physical complaints or pain. Denies any chest pain, shortness of breath, palpitations, dizziness or lightheadedness, headache. States that her port was already access this morning in preparation for her infusion and would like labs and medications to be done via her port. MD complaint: hypokalemia Related Data Home Medications ?Medication ?Instructions ?Recorded ?Confirmed vitamins A,C,E-tlby-ffmktr 4,296 1 cap PO BID 02/04/24 08/17/24 mcg-226 mg-90 mg capsule (PreserVision AREDS) furosemide 20 mg tablet 20 mg PO DAILY 08/17/24 08/17/24 potassium chloride 10 mEq 20 meq PO DAILY 08/17/24 08/17/24 tablet,extended release Previous Rx's ?Medication ?Instructions ?Recorded furosemide 40 mg tablet 40 mg PO DAILY #90 tabs 12/20/23 hydroxyzine HCl 50 mg tablet 50 mg PO TID PRN itching #60 tabs 02/12/24 tacrolimus 0.1 % topical ointment 1 appl topical BID #60 grams 02/27/24 clobetasol 0.05 % topical ointment 1 appl topical BID #60 grams 03/05/24 tamoxifen 10 mg tablet 20 mg (2 x 10 mg) PO DAILY #90 tabs 05/04/24 alendronate 70 mg tablet 70 mg PO QWEEK #12 tabs 05/06/24 methocarbamol 750 mg tablet 1,500 mg (2 x 750 mg) PO Q8H PRN 06/21/24 pain, moderate #20 tabs citalopram 20 mg tablet 20 mg PO DAILY #30 tabs 07/13/24 clonidine HCl 0.2 mg tablet 0.2 mg PO BEDTIME for anxiety #90 07/14/24 tabs mycophenolate mofetil 500 mg tablet 1,000 mg (2 x 500 mg) PO BID 90 07/30/24 days #360 tabs tofacitinib 11 mg tablet,extended 11 mg PO DAILY #90 tabs 08/13/24 release 24 hr empagliflozin 10 mg tablet 10 mg PO DAILY #30 tabs 08/18/24 (Jardiance) Allergies Allergy/AdvReac Type Severity Reaction Status Date / Time No Known Allergies Allergy Verified 08/26/24 10:04 Review of Systems Review of Systems: As per HPI [facility] Past Medical History Medical History Encounter for monitoring rituximab therapy Long-term current use of intravenous immunoglobulin (IVIG) Plaquenil adverse reaction in therapeutic use Nocturnal cough Pleural effusion History of right breast cancer Axillary adenopathy Bacteremia due to Klebsiella pneumoniae SIRS (systemic inflammatory response syndrome) Acute hypokalemia UTI (urinary tract infection) Abdominal pain Anemia Atrial arrhythmia Acute on chronic heart failure with preserved ejection fraction (HFpEF) CHF (congestive heart failure) Acute diastolic (congestive) heart failure Pancytopenia Diarrhea Pancolitis Colitis Nonsustained supraventricular tachycardia Port-A-Cath in place Pain in both feet Pedal edema History of COVID-19 Invasive ductal carcinoma of right breast Breast cancer, right Dermatomyositis Breast calcification, right Encounter to establish care Lumbar degenerative disc disease Hypertension Major depression, chronic Insomnia Anxiety Surgical History Hx of colonoscopy Status post right breast lumpectomy History of arthroscopic knee surgery History of hysterectomy History of section History of cholecystectomy History of gastric bypass History of fusion of cervical spine History of tonsillectomy Family History Family History Mother No problems noted. Father Breast cancer Bone cancer Brother Substance use disorder Paternal Aunt Breast cancer Social History Social History Household Members: Significant Other, Family and Children Housing: House Are you a primary director of critical care to a significant other at home: No Do you presently have visiting nurse or other home services: Yes ([facility]) Unable to assess alcohol history related to: Unknown Alcohol intake: former Comment: Pedal Edema and pain- uses cane Patient Tobacco Use Status: Former Tobacco user Tobacco use type: Cigarette Smoked in Last 30 Days: No e-Cigarette/Vaping Use: Never Used Second Hand Smoke Exposure: Yes Use of substances other than those prescribed or required for medical reasons: No Advance Directives: Yes Advance Directives on File: Yes Advance Directives Date on File: 11/28/21 Do you have a plan to hurt others: No Plan service: No Current occupational status: unemployed and retired Cognitive needs: No Hearing needs: No Vision needs: Yes (glasses) Physical Exam ED Vital Signs: Vital Signs - 24 hr 08/26/24 10:01 08/26/24 10:07 08/26/24 11:26 Temperature 98.1 F 98.1 F 98.2 F Pulse Rate 55 55 50 Respiratory Rate 15 15 15 Blood Pressure 134/52 L 134/52 L 108/50 L Pulse Oximetry 99 99 98 Oxygen Delivery Method Room Air Room Air Room Air 08/26/24 15:11 Temperature Pulse Rate 52 Respiratory Rate 16 Blood Pressure 110/40 L Pulse Oximetry 98 Oxygen Delivery Method BMI result Body Mass Index 29.0 Vital signs have been reviewed and appear to be correct. Blood pressure normal. Heart rate normal. Respiratory rate normal. Temperature normal. Oxygen saturation normal. Const General: cooperative, healthy appearing and no acute distress Orientation/consciousness: oriented to person, oriented to place, oriented to time and patient oriented x3 Limitations: no limitations HENMT Head: Yes normocephalic and Yes atraumatic Ears: external ears normal General nose exam: Normal external nose present Face and sinus: Yes face symmetric Mouth: oropharynx normal and moist mucous membranes Throat: Yes uvula midline Eyes Pupils: Equal, round and reactive pupils present Neck Neck: Yes normal visual inspection and Yes supple Resp Effort & Inspection: normal respiratory effort and able to speak in complete sentences Auscultation: clear to auscultation bilaterally Cardio Rate: regular rate Rhythm: regular rhythm Heart sounds: S1 normal heart sound present and S2 normal heart sound present GI Palpation (GI): Soft to palpation and nontender Auscultation: normoactive bowel sounds General: Yes no CVA tenderness Back/Spine/Pelvis Back: no CVA tenderness Skin General skin exam: elasticity normal and turgor normal Neuro General: oriented to person, oriented to place, oriented to time, patient oriented x3, moves all extremities, no focal motor deficits and CN's II-XI intact bilaterally Cranial nerves: Yes Equal, round and reactive pupils present Cognition (Neuro): normal cognition Extrem General: Yes full ROM, Yes no pedal edema and Yes no calf tenderness Psych Mental Status: mental status grossly normal Affect: normal affect Thought process: Normal thought process present Medications Administered Discontinued Medications Generic Name Dose Route Start Last Admin Trade Name Freq PRN Reason Stop Dose Admin Potassium Chloride 10 meq in 100 mls @ 100 mls/hr 08/26/24 11:45 08/26/24 16:46 Potassium Chloride/H20 IV 08/26/24 15:44 Infused Q1H CHELSIE Infusion Potassium Chloride 40 meq 08/26/24 10:03 08/26/24 10:55 Potassium Chloride Er 20 Meq Tab.Er.Prt PO 08/26/24 10:04 40 meq ONCE ONE Administration Medical Decision Making Medical Decision Making [facility] Narrative: Patient is a 69-year-old female with history of dermatomyositis on IVIG therapy, neuropathy, leukopenia, hypertension, anxiety and depression presenting with report of hypokalemia on labs check this morning. On exam patient is awake, A+Ox3, VS WNL, afebrile, normal neurological exam without focal deficits, physical exam findings as above. Given reported symptoms and physical exam findings, initial differential includes but is not limited to electrolyte abnormality, cardiac arrhythmia. Labs notable for hypokelmia of 2.9, normal magnesium. CBC also notable for chronic anemia, however patient is asymptomatic will defer transfusion at this time. Plan for administration of 40 mEq of potassium, recheck BMP and likely discharge home for follow up with PCP. Repeat potassium within normal limits. Patient remains asymptomatic. Feel she is stable for discharge home. Advised patient to follow-up with PCP and Dr. Hameed. Return precautions discussed. Patient verbalized understanding of and agreement with plan. Differential Diagnosis Differential Diagnoses: The differential diagnosis associated with the presentation includes As per [facility] Admission/Observation Consideration of admission/observation: Escalation of care including admission/observation considered Patient would have been admitted to the hospital had their work up had any findings where hospital admission was appropriate and their clinical presentation warranted hospital admission. Lab Data [facility] Lab Attestation statement: I reviewed the patient's lab results. As per [facility] 08/26/24 11:03 08/26/24 17:12 Labs: Lab Results 08/26/24 08/26/24 Range/Units 11:03 17:12 WBC 1.3 L (4.8-10.8) X10*3/uL RBC 3.33 L (4.20-5.50) X10*6/uL Hgb 8.2 L (12.0-16.0) g/dl Hct 26.7 L (37.0-47.0) % MCV 80.2 (80.0-98.0) fL MCH 24.6 L (27.0-33.0) pg MCHC 30.7 L (31.0-35.0) g/dl RDW 18.6 H (11.0-16.0) % Plt Count 52 L (160-400) X10*3/uL MPV 9.4 (9.4-12.3) fL Immature Gran % (Auto) 0.0 (0.0-0.4) % Neut % (Auto) 56.8 (45-73) % Lymph % (Auto) 18.9 L (20-40) % Duval % (Auto) 20.5 H (2-11) % Eos % (Auto) 3.0 (0-4) % Baso % (Auto) 0.8 (0-2) % Lymph # (Auto) 0.3 L (1.2-4.9) X10*3/uL Duval # (Auto) 0.3 (0.1-1.2) X10*3/uL Eos # (Auto) 0.0 (0.0-0.4) X10*3/uL Baso # (Auto) 0.0 (0.0-0.2) X10*3/uL Abs Immat Gran (auto) 0.00 (0.00-0.03) X10*3/uL Absolute Neuts (auto) 0.8 L (2.0-8.3) x10*3/uL Absolute Nucleated RBC 0.000 (0.0-0.012) X10*3/uL Nucleated RBC % (auto) 0.0 (0.0-0.2) /100WBC Smear Tech's Comments VERIFIED Sodium 141 139 (135-145) mmol/L Potassium 2.9 L* 4.1 D (3.3-5.1) mmol/L Chloride 106 107 (96-108) mmol/L Carbon Dioxide 28 26 (22-29) mmol/L Anion Gap 10 L 10 L (12-20) BUN 20 H 20 H (9-16) mg/dL Creatinine 0.98 0.90 (0.5-1.4) mg/dL Estim Creat Clear Calc 53.7 58.5 Estimated GFR 57 > 60 Random Glucose 95 98 (60-115) mg/dL Calcium 8.1 L 8.3 L (8.4-10.2) mg/dL Magnesium 2.1 (1.6-2.6) mg/dL Total Bilirubin 0.6 (0.0-1.0) mg/dL AST 25 (5-31) U/L ALT 9 (0-31) U/L Alkaline Phosphatase 70 (39-117) U/L Total Protein 6.1 L (6.5-8.0) g/dL Albumin 3.3 L (3.5-5.0) g/dL External Record Review External record reviewed: Inpatient record, Office record and Outpatient record Discharge Plan Discharge Clinical Impression: Acute hypokalemia Patient Disposition: Home, Self-Care Instructions: Potassium Content of Foods List (ED), Hypokalemia (ED) Additional Instructions: You were evaluated in the emergency department today for low potassium level. We repeated your labs and your potassium level remains low. You were given potassium through your IV. We recommend that you follow-up with Dr. Hameed to discuss this as it is likely related to the increase of your furosemide. Return to the emergency department if you develop chest pain, palpitations, shortness of breath, dizziness or lightheadedness or any other new or concerning symptoms. Prescriptions: No Action furosemide 40 mg tablet 40 mg PO DAILY Qty: 90 3RF clobetasol 0.05 % ointment 1 appl topical BID Qty: 60 3RF Rx Instructions: Do Not apply on face or sensitive areas such as your armpits, genitals or groin alendronate 70 mg tablet 70 mg PO QWEEK Qty: 12 1RF citalopram 20 mg Tablet 20 mg PO DAILY Qty: 30 1RF clonidine HCl 0.2 mg tablet 0.2 mg PO BEDTIME Qty: 90 1RF tofacitinib 11 mg tablet extended release 24 hr 11 mg PO DAILY Qty: 90 1RF Jardiance 10 mg tablet 10 mg PO DAILY Qty: 30 5RF tamoxifen 10 mg Tablet 20 mg PO DAILY Qty: 90 4RF methocarbamol 750 mg tablet 1,500 mg PO Q8H PRN (Reason: pain, moderate) Qty: 20 0RF tacrolimus 0.1 % ointment 1 appl topical BID Qty: 60 2RF mycophenolate mofetil 500 mg tablet 1,000 mg PO BID 90 Days Qty: 360 1RF hydroxyzine HCl 50 mg tablet 50 mg PO TID PRN (Reason: itching) Qty: 60 1RF PreserVision AREDS 4,296 mcg-226 mg-90 mg capsule 1 cap PO BID furosemide 20 mg tablet 20 mg PO DAILY potassium chloride 10 mEq tablet extended release 20 meq PO DAILY Print Language: Sudanese
--- NOTE | 2024-08-26 10:05 | ECG_ITS ---
Test Reason : hypokalemia Blood Pressure : */* mmHG Vent. Rate : 53 BPM Atrial Rate : * BPM P-R Int : * ms QRS Dur : 82 ms QT Int : 458 ms P-R-T Axes : * 46 41 degrees QTcB Int : 429 ms Sinus bradycardia with PACs Low voltage QRS Cannot rule out Anterior infarct , age undetermined Abnormal ECG When compared with ECG of 26-Feb-2024 14:35, Previous ECG has undetermined rhythm Referred By: Funmilayo Lawrence Electronically Signed By: Robb Jean-Baptiste
[2024-08-26 10:07] VITALS: BP 134/52; PULSE 55; RESP 15; TEMP 36.7; O2SAT 99
--- NOTE | 2024-08-26 10:08 | PC.NURSE ---
69 F presents to ED from IGE infusion here at the hospital after finding out she has a low potassium. RR even and unlabored, denies SOB. Denies CP. Sinus bianca on monitor. Pt sts mastectomy to R breast. L chest port is accessed.
[2024-08-26] MEDS: Potassium Chloride ER 20 MEQ TAB.ER.PRT 40 MEQ PO (10:55)
[2024-08-26 11:11] LABS: Basophils Percent Auto 0.8 % (0-2); Hematocrit 26.7 % (37.0-47.0); Hemoglobin 8.2 g/dl (12.0-16.0); Lymphocytes Absolute Auto 0.3 X10*3/uL (1.2-4.9); Lymphocytes Percent Auto 18.9 % (20-40); MANUAL DIFF FLAG SCAN; Mean Corpuscular HGB Conc 30.7 g/dl (31.0-35.0); Mean Corpuscular Hemoglobin 24.6 pg (27.0-33.0); Mean Corpuscular Volume 80.2 fL (80.0-98.0); Mean Platelet Volume 9.4 fL (9.4-12.3); Monocytes Absolute Auto 0.3 X10*3/uL (0.1-1.2); Monocytes Percent Auto 20.5 % (2-11); Neutrophils Absolute Auto 0.8 x10*3/uL (2.0-8.3); Neutrophils Percent Auto 56.8 % (45-73); Red Blood Count 3.33 X10*6/uL (4.20-5.50); Red Cell Distribution Width 18.6 % (11.0-16.0); SCAN SMEAR FLAG 1
[2024-08-26 11:13] LABS: Platelet Count 52 X10*3/uL (160-400); White Blood Count 1.3 X10*3/uL (4.8-10.8)
[2024-08-26 11:26] VITALS: BP 108/50; PULSE 50; RESP 15; TEMP 36.8; O2SAT 98
[2024-08-26 11:42] LABS: Alanine Aminotransferase 9 U/L (0-31); Albumin Level 3.3 g/dL (3.5-5.0); Alkaline Phosphatase 70 U/L (39-117); Anion Gap 10 (12-20); Aspartate Amino Transferase 25 U/L (5-31); Bilirubin Total 0.6 mg/dL (0.0-1.0); Blood Urea Nitrogen 20 mg/dL (9-16); Calcium 8.1 mg/dL (8.4-10.2); Carbon Dioxide 28 mmol/L (22-29); Chloride 106 mmol/L (96-108); Creatinine Clr Calc Pharmacy 53.7; Estimated Glomerular Filt Rate 57; Glucose Random 95 mg/dL (60-115); Magnesium 2.1 mg/dL (1.6-2.6); Potassium 2.9 mmol/L (3.3-5.1); Sodium 141 mmol/L (135-145); Total Protein 6.1 g/dL (6.5-8.0)
[2024-08-26 11:43] LABS: SLIDE REVIEW VERIFIED
[2024-08-26] MEDS: Potassium Chloride/H20 10 MEQ/100 ML PIGGYBACK 100 MEQ IV ×4 (12:06→15:46)
[2024-08-26 15:11] VITALS: BP 110/40; PULSE 52; RESP 16; O2SAT 98
[2024-08-26 17:39] LABS: Anion Gap 10 (12-20); Blood Urea Nitrogen 20 mg/dL (9-16); Calcium 8.3 mg/dL (8.4-10.2); Carbon Dioxide 26 mmol/L (22-29); Chloride 107 mmol/L (96-108); Creatinine Clr Calc Pharmacy 58.5; Estimated Glomerular Filt Rate > 60; Glucose Random 98 mg/dL (60-115); Potassium 4.1 mmol/L (3.3-5.1); Sodium 139 mmol/L (135-145)
[2024-08-26 17:57] VITALS: BP 122/59; PULSE 51; RESP 16; O2SAT 98
[2024-08-26 18:07] VITALS: BP 122/59; PULSE 51; RESP 16; TEMP -17.7; TEMP 0; O2SAT 98
== END 2024-08-26 18:19 | disposition home or self-care (01) ==
PROVIDERS: Registered Nurse Emergency; Emergency Provider Emergency Medicine; PCP Internal Medicine
DX: E87.6 Hypokalemia (principal); I10 Essential (primary) hypertension; D72.819 Decreased white blood cell count, unspecified; Z85.3 Personal history of malignant neoplasm of breast; Z79.899 Other long term (current) drug therapy; Z95.828 Presence of other vascular implants and grafts
CPT/HCPCS: 36415; 80048; 80053; 83735; 85025; 93005; 96365; 96366; 99285; J1642; J3480

== ENCOUNTER → 2024-08-26 10:05 | Outpatient (BNV) | payer MEDICARE, SELFPAY | PROVIDERS: Emergency Provider Emergency Medicine; PCP Internal Medicine; Visit Provider Internal Medicine Cardiovascular Disease | DX: R00.1 Bradycardia, unspecified (principal); I49.1 Atrial premature depolarization | CPT/HCPCS: 93010 ==

== ENCOUNTER 2024-09-09 10:16 | Outpatient (AMB) | payer MEDICARE, SELFPAY ==
--- NOTE | 2024-09-09 10:18 | MHC.OFFVIS ---
Vital Signs 09/09/24 10:21 Height 5 ft 3 in Weight 163 lb 2.273 oz BMI 28.9 BP 116/56 L Blood Pressure Location Lt brachial Position Sitting Pulse 57 Intake Visit Reasons: Cirrhosis Intake Note: Kate presents in the office as a new patietn for cirrhosis. CC: She was seen in the ED - she has cirrhosis - sometimes when she takes medications in the AM she will get cramps and diarrhea that is explosive. She is not sure if it is the coating and does not happen ALL the time. Allergies No Known Allergies Allergy (Verified 08/26/24 10:04) HPI Comments Details: This is a 66-year-old female with past medical history of right breast cancer with OTIS gene (increased risk of panc ca), s/p chemo/immunotherapy and lumpectomy currently on tamoxifen who is coming in to establish care for new diagnosis of cirrhosis. Pt was previously seen in hospital for 2021 for what was likely ICI related diarrhea and bx proven colitis. Now referred by Dr Hernández for new dx of cirrhosis. Pt had imaging done last year that showed cirrhotic liver with CSPH. Prior to this, multiple abd MRI between 2021 and 2022 without any cirrhosis. Remote hx of moderate drinking in her teens. Otherwise no hx of heavy etOH use. Remote hx of drug use - cocaine. Hep B core Ab positive. No DM, HLD. BMI 28 but prev BMI was 38 prior to starting chemo. Does report heavy steroid use prednisone for almost 3 years for dermatomyositis. Also on tamoxifen currently. [facility] Medical History (Updated 09/09/24 @ 13:11 by Tere Alonso MD) Anemia Pancytopenia Encounter for monitoring rituximab therapy Long-term current use of intravenous immunoglobulin (IVIG) Plaquenil adverse reaction in therapeutic use Nocturnal cough Pleural effusion History of right breast cancer Axillary adenopathy Bacteremia due to Klebsiella pneumoniae SIRS (systemic inflammatory response syndrome) Acute hypokalemia UTI (urinary tract infection) Abdominal pain Atrial arrhythmia Acute on chronic heart failure with preserved ejection fraction (HFpEF) CHF (congestive heart failure) Acute diastolic (congestive) heart failure Diarrhea Pancolitis Colitis Nonsustained supraventricular tachycardia Port-A-Cath in place Pain in both feet Pedal edema History of COVID-19 Invasive ductal carcinoma of right breast Breast cancer, right Dermatomyositis Breast calcification, right Encounter to establish care Lumbar degenerative disc disease Hypertension Major depression, chronic Insomnia Anxiety Surgical History Hx of colonoscopy Status post right breast lumpectomy History of arthroscopic knee surgery History of hysterectomy History of section History of cholecystectomy History of gastric bypass History of fusion of cervical spine History of tonsillectomy Family History Mother No problems noted. Father Breast cancer Bone cancer Brother Substance use disorder Paternal Aunt Breast cancer Social History Household Members: Significant Other, Family and Children Housing: House Are you a primary animal caretaker to a significant other at home: No Do you presently have visiting nurse or other home services: Yes ([facility]) Unable to assess alcohol history related to: Unknown Alcohol intake: former Comment: Pedal Edema and pain- uses cane Patient Tobacco Use Status: Former Tobacco user Tobacco use type: Cigarette e-Cigarette/Vaping Use: Never Used Second Hand Smoke Exposure: Yes Advance Directives Date on File: 11/28/21 service: No Current occupational status: unemployed and retired Cognitive needs: No Hearing needs: No Vision needs: Yes (glasses) Female Reproductive History Menstrual Age of Menarche: 17 Review of Systems Const All systems reviewed & are unremarkable except as noted in HPI and below Physical Exam Vital Signs: Last Vital Signs Pulse 57 09/09/24 10:21 BP 116/56 L 09/09/24 10:21 BMI result Body Mass Index 28.9 patchy alopecia noted Nonicteric abd soft, nontender, nondistended No NESS Assessment & Plan Assessment & Plan (1) Cirrhosis: Code(s): K74.60 - Unspecified cirrhosis of liver Category: Medical (2) 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 Pt also has positive HB core Ab with negative HB s Ag - i.e occult HBV. However, will get updated HBV serology + AFP to r/o reactivation. She is also due for liver imaging to exclude HCC. In addition, pt also has anemia with pancytopenia. A bidirectional endoscopy is indicated. She has previously utilized cologuard for CRC screening which is not a valid test going forward in the setting of anemia. Plan: - MELD labs - Remaining labs as below - US abd - EGD/colo to be booked - Pt prefers miralax gatorade prep which has been sent. Instructions handed to pt. - Lastly, in terms of panc ca screening due to OTIS gene, pt likely not a surgical candidate so screening not indicated but will review with oncologist Follow up after scopes Orders: Orders Comprehensive Met. Panel Today Tere Alonso MD K74.60 - Unspecified cirrhosis of liver Alpha 1 Anti-trypsin Today Tere Alonso MD K74.60 - Unspecified cirrhosis of liver Alpha Fetoprotein Today Tere Alonso MD K74.60 - Unspecified cirrhosis of liver C Reactive Protein Today Tere Alonso MD K74.60 - Unspecified cirrhosis of liver Ferritin Today Tere Alonso MD K74.60 - Unspecified cirrhosis of liver Hemoglobin A1c Today Tere Alonso MD K74.60 - Unspecified cirrhosis of liver Immunoglobulin A Today Tere Alonso MD K74.60 - Unspecified cirrhosis of liver Liver Kidney Microsomal Ab Today Tere Alonso MD K74.60 - Unspecified cirrhosis of liver Mitochondrial Antibody Today Tere Alonso MD K74.60 - Unspecified cirrhosis of liver Hepatitis B Surface Antigen Today Tere Alonso MD R76.8 - Other specified abnormal immunological findings in serum Hepatitis B Viral DNA Qn Today Tere Alonso MD R76.8 - Other specified abnormal immunological findings in serum US abdomen complete Today Tere Alonso MD K74.60 - Unspecified cirrhosis of liver Ceruloplasmin Today Tere Alonso MD K74.60 - Unspecified cirrhosis of liver HIV Ab/Ag Today Tere Alonso MD K74.60 - Unspecified cirrhosis of liver IRON PROFILE Today Tere Alonso MD K74.60 - Unspecified cirrhosis of liver Transglutaminase IgA Today Tere Alonso MD K74.60 - Unspecified cirrhosis of liver TSH reflex Free T4 Today Tere Alosno MD K74.60 - Unspecified cirrhosis of liver Hepatitis B Surface Antibody Today Tere Alnoso MD R76.8 - Other specified abnormal immunological findings in serum Hepatitis BE Antigen Today Tere Alonso MD R76.8 - Other specified abnormal immunological findings in serum Hepatitis BE Antibody Today Tere Alonso MD R76.8 - Other specified abnormal immunological findings in serum Medications: New furosemide Daily. 20 mg PO CONT. 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
[2024-09-09 10:21] VITALS: BP 116/56; PULSE 57; BMI 28.9
--- OUTSIDE RECORDS SUMMARY | 2024-09-09 10:51 | XMS_ITS | CCD ---
Author Name Interface, [id number] lity Address [place] [address] Organization [facility] Address [address] [place] [address] Care Team Providers Care Golf Ball Trimmer Name Role Phone Princess PEREZ, Lay Bernal Unavaillouann ble Allergies and Adverse Reactions Medication/Group Name Reaction [...] 14 active Problems Diagnosis Status Date of Diagnosis Resolution Date Itching (finding) Active Easy bruising (finding) Active [...]
== END 2024-09-09 12:18 | disposition home or self-care (01) ==
LOC: HO.HGI 10:17
PROVIDERS: PCP Internal Medicine; Visit Provider Internal Medicine
DX: K74.60 Unspecified cirrhosis of liver (principal); C50.919 Malignant neoplasm of unspecified site of unspecified female breast; R76.8 Other specified abnormal immunological findings in serum; D64.9 Anemia, unspecified; D61.818 Other pancytopenia
CPT/HCPCS: 99214; G2211

== ENCOUNTER 2024-09-09 10:16 | Outpatient (REF) | payer MEDICARE, SELFPAY ==
[2024-09-09 12:47] LABS: Alanine Aminotransferase 9 U/L (0-31); Albumin Level 3.6 g/dL (3.5-5.0); Alkaline Phosphatase 73 U/L (39-117); Anion Gap 11 (12-20); Aspartate Amino Transferase 26 U/L (5-31); Blood Urea Nitrogen 14 mg/dL (9-16); Calcium 8.4 mg/dL (8.4-10.2); Carbon Dioxide 26 mmol/L (22-29); Chloride 108 mmol/L (96-108); Estimated Glomerular Filt Rate > 60; Potassium 4.0 mmol/L (3.3-5.1); Sodium 141 mmol/L (135-145); Total Protein 6.5 g/dL (6.5-8.0)
== END 2024-09-09 10:17 | disposition home or self-care (01) ==
LOC: HO.LAB 10:16
PROVIDERS: Absent Provider Internal Medicine Cardiovascular Disease; PCP Internal Medicine; Visit Provider Internal Medicine
DX: K74.60 Unspecified cirrhosis of liver (principal); C50.911 Malignant neoplasm of unspecified site of right female breast; D64.9 Anemia, unspecified; R76.8 Other specified abnormal immunological findings in serum; D61.818 Other pancytopenia; E87.6 Hypokalemia; Z79.52 Long term (current) use of systemic steroids; Z79.810 Long term (current) use of selective estrogen receptor modulators (SERMs)
CPT/HCPCS: 36415; 80053; 99212

== ENCOUNTER → 2024-09-23 07:59 | Outpatient (REF) | payer MEDICARE, SELFPAY ==
--- NOTE | 2024-09-23 08:01 | CA_ITS ---
Transthoracic Echocardiogram Patient (Last, First, Middle): Kate Almaguer, Gender: Female Date of : 1955 Age: 69 Procedure Date: 09/23/2024 Procedure Type: Transthoracic Echocardiogram Location: OP Height: 160.02 cm Weight: 73.94 kg BSA: 1.77 m2 Heart Rate: 48 bpm BP: 116 / 60 mmHg Sanitary Aide: LAVON Referring MD: Josias Hameed MD Symptoms: I49.8 - Other specified cardiac arrhythmias Study Quality: Adequate ECG Rhythm: Bradycardia Conclusions: - The left ventricular systolic function is normal. The calculated ejection fraction is 69% by biplane method. - Evidence suggests grade III (severe) diastolic dysfunction. - There is mild aortic valve stenosis. - Mild pulmonary hypertension is present. - The inferior vena cava is mildly dilated and collapses less than 50% with inspiration. - There is a small loculated pericardial effusion overlying the right atrium. Findings Left Ventricle Normal left ventricular cavity size. There is normal left ventricular wall thickness. The left ventricular systolic function is normal. The calculated ejection fraction is 69% by biplane method. There is no evidence of regional wall motion abnormalities. Evidence suggests grade III (severe) diastolic dysfunction. Right Ventricle Normal right ventricular cavity size and systolic function. Atria Both atria are normal in size. Aortic Valve There is mild calcification of the aortic valve. There is mild aortic valve stenosis. There is no aortic valve regurgitation. Mitral Valve There is mild anterior mitral leaflet thickening. There is trace mitral valve regurgitation. There is no mitral valve stenosis. Pulmonic Valve The pulmonic valve is likely normal. Tricuspid Valve There is mild tricuspid valve regurgitation. Mild pulmonary hypertension is present. Great Vessels The asc aorta is normal in size. Venous The inferior vena cava is mildly dilated and collapses less than 50% with inspiration. Pericardium/Pleural There is a small loculated pericardial effusion overlying the right atrium. Prior Study Comparison Changes noted compared to prior study dated: 12/12/2023. Progression of diastolic dysfunction; small pericardial effusion noted. Measurements 2D Linear Measurements IVSd: 0.79 0.6-0.9/0.6-1.0 cm LVIDd: 4.94 3.9-5.3/4.2-5.9 cm LVIDd Index: 2.79 2.4-3.2/2.2-3.1 cm/m2 LVIDs: 2.97 2.0-3.6 cm LVPWd: 0.78 0.7-1.1 cm LA Diam: 4.40 2.7-3.8/3.0-4.0 cm LAIDs Index: 2.49 1.5-2.3 cm/m2 LV Mass: 161.95 67-162/88-224 g LV Mass Index: 91.50 43-95/49-115 g/m2 LVOT Diam: 1.80 3.0+(-)1.3 cm 2D Systolic Function EF 4C: 69.30 >55% EF 2C: 68.70 >55% EF BiP: 68.70 >55% Mitral Valve MV VTI: 0.50 MV Pk Taras: 1.50 MV Mn Taras: 0.59 MV Pk Grad: 9.00 MV Mn Grad: 2.00 MV Pk E: 1.64 MV PK A: 0.39 MV Decel Time: 236.00 E/A: 4.20 E'Lateral: 7.72 E'Medial: 7.62 E/E' Med: 21.50 E/E' Lat: 21.20 PHT: 69.00 MVA PHT: 3.19 MVA Continuity: 2.[address] [facility]: 6.96 Aortic Valve AoV Pk Taras: 2.64 AoV Mn Taras: 1.69 AoV VTI: 0.65 AoV Pk Grad: 28.00 Aov Mn Grad: 14.00 SAMANTHA Cont.VTI: 1.68 LVOT LVOT Pk Taras: 1.78 LVOT Mn Taras: 1.18 LVOT VTI: 0.43 LVOT Pk Grad: 13.00 LVOT Mn Grad: 6.00 LVOT Diam: 1.80 LVOT Area: 2.54 Diastolic Function MV Pk E: 1.64 MV Pk A: 0.39 E/A: 4.20 E'Medial: 7.62 E/E' Med: 21.50 E' Laterial: 7.72 E/E' Lat: 21.20 Right Ventricle TAPSE (mm): 26.30 TVS' Taras: 14.40 Tricuspid Valve TR Pk Taras: 3.08 TR Pk Grad: 38.00 RA Press: 15.00 RVSP: 53.00 Great Vessels Aorta Sinus of Valsalva: 2.20 2.0-3.5 cm Ao Asc: 2.80 2.1-3.4 cm Updated in Other Vendor System with Status of Final Trevor Taveras MD electronically signed on 09/25/2024 10:41:24 AM with status of Final
--- OUTSIDE RECORDS SUMMARY | 2024-09-23 08:01 | XMS_ITS | CCD ---
Author Name Interface, [id number] lity Address [place] [address] Organization [facility] Address [address] [place] [address] Care Team Providers Care Selenium Plant Operator Name Role Phone Princess PEREZ, Lay Bernal [...]
== END ==
LOC: HO.CARD 07:59
PROVIDERS: PCP Internal Medicine; Visit Provider Internal Medicine Cardiovascular Disease
DX: I49.8 Other specified cardiac arrhythmias (principal); I35.0 Nonrheumatic aortic (valve) stenosis; R06.02 Shortness of breath; I50.9 Heart failure, unspecified
CPT/HCPCS: 93306

== ENCOUNTER → 2024-09-23 08:01 | Outpatient (BNV) | payer MEDICARE, SELFPAY | PROVIDERS: PCP Internal Medicine; Visit Provider Internal Medicine | DX: I27.20 Pulmonary hypertension, unspecified (principal); I31.39 Other pericardial effusion (noninflammatory); I35.0 Nonrheumatic aortic (valve) stenosis | CPT/HCPCS: 93306 ==

== ENCOUNTER 2024-10-06 12:23 | Outpatient (REF) | payer MEDICARE, SELFPAY ==
--- OUTSIDE RECORDS SUMMARY | 2024-10-06 13:14 | XMS_ITS | CCD ---
Author Name Interface, [id number] lity Address [address] [place] [address] Organization [facility] Address [address] [address] Care Team Providers Care Life Scientist Name Role Phone Princess PEREZ, Lay Bernal [...]
[2024-10-06 13:15] LABS: Hematocrit 28.8 % (37.0-47.0); Hemoglobin 8.6 g/dl (12.0-16.0); Imm Gran Abs Auto 0.00 X10*3/uL (0.00-0.03); Imm Gran Pct Auto 0.0 % (0.0-0.4); Lymphocytes Absolute Auto 0.2 X10*3/uL (1.2-4.9); MANUAL DIFF FLAG SCAN; Mean Corpuscular HGB Conc 29.9 g/dl (31.0-35.0); Mean Corpuscular Hemoglobin 24.0 pg (27.0-33.0); Mean Corpuscular Volume 80.4 fL (80.0-98.0); NRBC Abs Auto 0.000 X10*3/uL (0.0-0.012); NRBC Pct Auto 0.0 /100WBC (0.0-0.2); Red Blood Count 3.58 X10*6/uL (4.20-5.50); SCAN SMEAR FLAG 1
[2024-10-06 13:16] LABS: Platelet Count 69 X10*3/uL (160-400); White Blood Count 1.1 X10*3/uL (4.8-10.8)
[2024-10-06 13:19] LABS: Hemoglobin A1C 63.0900 umol/L; Total Hemoglobin (HGBA1C) 2319.8876 umol/L
[2024-10-06 13:46] LABS: Alanine Aminotransferase 7 U/L (0-31); Albumin Level 3.6 g/dL (3.5-5.0); Alkaline Phosphatase 73 U/L (39-117); Anion Gap 12 (12-20); Aspartate Amino Transferase 24 U/L (5-31); Blood Urea Nitrogen 16 mg/dL (9-16); Calcium 8.4 mg/dL (8.4-10.2); Carbon Dioxide 24 mmol/L (22-29); Chloride 108 mmol/L (96-108); Estimated Glomerular Filt Rate 57; Iron 35 mcg/dL (30-160); Percent Iron Saturation 10 % (15-50); Potassium 3.3 mmol/L (3.3-5.1); Sodium 141 mmol/L (135-145); Total Iron Binding Capacity 361 mcg/dL (228-428); Total Protein 7.0 g/dL (6.5-8.0); Unsaturated Iron Binding 326 ug/dL
[2024-10-06 13:57] LABS: Ferritin 26 ng/mL (10-250)
[2024-10-07 03:44] LABS: HBS Num1 736.92 mIU/mL (0-7.99); HBsAGNum1 0.35 S/CO (0.00-0.99); HIV Num 1 0.06 S/CO (0.00-0.99); Hepatitis B Surface Antigen Negative (Negative); ~Hepatitis B Surface Antibody REACTIVE (Nonreactive)
[2024-10-07 06:44] LABS: Immunoglobulin A 74 mg/dL (70-320)
[2024-10-07 13:27] LABS: Hepatitis B Viral DNA Qn - cp NOT DETECTED Log IU/mL (NOT DETECTED); Hepatitis B Viral DNA Qn-IU/mL NOT DETECTED (NOT DETECTED)
== END 2024-10-06 12:24 | disposition home or self-care (01) ==
LOC: HO.LAB 12:23
PROVIDERS: Internal Medicine; PCP Internal Medicine; Visit Provider Student in an Organized Health Care Education/Training Program
DX: M33.90 Dermatopolymyositis, unspecified, organ involvement unspecified (principal); Z79.899 Other long term (current) drug therapy; K74.60 Unspecified cirrhosis of liver; R76.8 Other specified abnormal immunological findings in serum
CPT/HCPCS: 36415; 80053; 82103; 82105; 82390; 82550; 82728; 82784; 83036; 83540; 84443; 85025; 85652; 86140; 86364; 86376; 86381; 86706; 86707; 87340; 87350; 87389; 87517

== ENCOUNTER 2024-10-08 08:05 | Outpatient (AMB) | payer MEDICARE, SELFPAY ==
--- NOTE | 2024-10-08 08:07 | A.OFFVIS_ITS ---
Vital Signs 10/08/24 08:11 Height 5 ft 3 in Weight 160 lb 0.889 oz BMI 28.3 BP 140/60 H Blood Pressure Location Lt brachial Position Sitting Pulse 73 Pulse Source Pulse Oximeter Pulse Oximetry (%) 98 Oxygen Delivery Method Room Air Intake Visit Reasons: 2 month follow up Intake Note: Patient presents for Dermatomyositis follow up. Allergies No Known Allergies Allergy (Verified 10/08/24 08:10) Medication List - Last Reconciled 10/08/24 by Kasandra Pinto MD alendronate 70 mg PO QWEEK cetirizine 20 mg PO DAILY citalopram 20 mg PO DAILY clobetasol 0.05% 1 appl topical BID clonidine HCl 0.2 mg PO BEDTIME empagliflozin (Jardiance) 10 mg PO DAILY furosemide 20 mg PO CONT. PER PROTOCOL furosemide 20 mg PO DAILY furosemide 40 mg PO DAILY hydroxychloroquine mg PO hydroxyzine HCl 50 mg PO TID PRN methocarbamol 1,500 mg (2 x 750 mg) PO Q8H PRN mycophenolate mofetil 1,000 mg (2 x 500 mg) PO BID 90 days polyethylene glycol 3350 (Miralax) 238 grams PO ONCE potassium chloride ER 40 mEq PO DAILY tacrolimus 0.1% 1 appl topical BID tamoxifen mg PO tofacitinib ER 11 mg PO DAILY vitamins A,C,N-xexy-ecxldv 4,296 mcg-226 mg-90 mg (PreserVision AREDS) 1 cap PO BID HPI Comments Details: Patient is a 69-year-old female with heart failure with preserved ejection fraction, chronic major depression, hypertension, anxiety, breast cancer currently in remission, TIF 1 gamma refractory dermatomyositis here today for follow up Interval History: Patient last seen 07/30/24 with me - On medrol, IVIG, Rituximab - Still having dermatomyositis rash - New worsening muscle weakness - Added MMF after discussion with derm Since then - Repeat MRI shows muscle edema - normal CK and Aldolase - Ritux stopped due to ineffectiveness Today, - Has hair growing back but still having active disease - Complaining of joint pain to the hands and wrists Rheumatologic History: Patient with Tif 1 gamma positive antibody dermatomyositis Found to have breast cancer in 2021. Patient last seen 12/04/2023. At that time she had started PT, had gone to 3 sessions, but stating that her muscle weakness is about the same. Receiving IVIG 2 grams/kilogram every 4 weeks. Azathioprine was recently discontinued She was started on hydroxychloroquine at that visit Skin biopsy 07/2021 +++TIF gamma Ab Dr Krishna 08/10/2021 prednisone started. azathioprine added OSIRIS 1:80, CPK 991, marked proximal muscle weakness, CLARK neg, anti-SRP negative; aldolase WNL Associated breast cancer found 11/2021: Azathioprine stopped due to chemoRx 11/2021: flare of skin rash with taper of prednisone to 30mg 12/2021: monthly IV IVIG started 02/2022: prednisone stopped. Aza restarted. DC in 2023 due to pancytopenia 11/2023: Hydroxychloroquine started - DC 01/2024 due to worsening rash 02/2024: Worsening dermatomyositis with rash and muscle weakness Repeat PET Scan without evidence of recurrent cancer 03/2024 Attempted to get tofacitinib approved but this was denied by insurance 03/2024: Rituxumab 2000mg every 6 months IV Current Rheumatology Medication(s): IVIG 2g/kg every month Rituxumab 2000mg IV every 6 months given in 1000mg divided doses (held) Medrol 4mg daily MMF 1000mg bid [facility] Medical History (Updated 09/09/24 @ 13:11 by Tere Alonso MD) Anemia Pancytopenia Encounter for monitoring rituximab therapy Long-term current use of intravenous immunoglobulin (IVIG) Plaquenil adverse reaction in therapeutic use Nocturnal cough Pleural effusion History of right breast cancer Axillary adenopathy Bacteremia due to Klebsiella pneumoniae SIRS (systemic inflammatory response syndrome) Acute hypokalemia UTI (urinary tract infection) Abdominal pain Atrial arrhythmia Acute on chronic heart failure with preserved ejection fraction (HFpEF) CHF (congestive heart failure) Acute diastolic (congestive) heart failure Diarrhea Pancolitis Colitis Nonsustained supraventricular tachycardia Port-A-Cath in place Pain in both feet Pedal edema History of COVID-19 Invasive ductal carcinoma of right breast Breast cancer, right Dermatomyositis Breast calcification, right Encounter to establish care Lumbar degenerative disc disease Hypertension Major depression, chronic Insomnia Anxiety Surgical History Hx of colonoscopy Status post right breast lumpectomy History of arthroscopic knee surgery History of hysterectomy History of section History of cholecystectomy History of gastric bypass History of fusion of cervical spine History of tonsillectomy Family History Mother No problems noted. Father Breast cancer Bone cancer Brother Substance use disorder Paternal Aunt Breast cancer Social History Household Members: Significant Other, Family and Children Housing: House Are you a primary hospice spiritual care coordinator to a significant other at home: No Do you presently have visiting nurse or other home services: Yes ([facility]) Unable to assess alcohol history related to: Unknown Alcohol intake: former Comment: Pedal Edema and pain- uses cane Patient Tobacco Use Status: Former Tobacco user Tobacco use type: Cigarette e-Cigarette/Vaping Use: Never Used Second Hand Smoke Exposure: Yes Advance Directives Date on File: 11/28/21 service: No Current occupational status: unemployed and retired Cognitive needs: No Hearing needs: No Vision needs: Yes (glasses) Female Reproductive History Menstrual Age of Menarche: 17 Review of Systems Const Details: Review of Systems Constitutional: Denies fever, chills, weight loss ENT: Denies vision changes, eye pain or eye redness, dental caries, dry mouth GI: Denies nausea, vomiting, diarrhea, abdominal pain, change in BM Pulm: Denies SOB, SUMNER, hemoptysis, wheezing Cards: Denies chest pain, palpitations Skin: +rash GEOMATICS PROFESSOR: Denies headaches, weakness, paresthesias, recurrent falls MSK: as per HPI All other systems reviewed and are unremarkable except noted above Physical Exam Exam Exam: Vital signs reviewed Physical Examination CONSTITUITIONAL Patient alert and cooperative. Well appearing and in no apparent painful distress MSK Hands * Right Hand: Able to make a fist. TTP of the MCPs * Left Hand: Able to make a fist. TTP of the MCPs. Wrists * Right Wrist: Full ROM. 70 degrees of wrist flexion, 80 degrees of wrist extension. TTP * Left Wrist: Full ROM. 70 degrees of wrist flexion, 80 degrees of wrist extension. TTP Elbows * Right Elbow: Full ROM. No swelling or TTP. No TTP of the medial and lateral epicondyles * Left Elbow: Full ROM. No swelling or TTP. No TTP of the medial and lateral epicondyles Shoulders * Right shoulder: Full ROM. No swelling noted. No TTP of the AC joint, subacromial bursa or posterior shoulder * Left shoulder: Full ROM. No swelling noted. No TTP of the AC joint, subacromial bursa or posterior shoulder Knees * Right knee: Full ROM. No swelling noted. No TTP of the knee joint lie or pes anserine bursa * Left knee: Full ROM. No swelling noted. No TTP of the knee joint lie or pes a nserine bursa. * Crepitations felt bilaterally Ankles * Right ankle: Good ankle dorsiflexion and plantar flexion. No swelling. No TTP of the ankle joint * Left ankle: Good ankle dorsiflexion and plantar flexion. No swelling. No TTP of the ankle joint Feet * Right foot: Negative squeeze test * Left foot: Negative squeeze test Tender points? * No tenderness to palpation of the bilateral trapezius, supraspinatus, anterior costochondral junctions, bilateral suboccipital muscle insertions SKIN Gouttron's papules Improved rash on her back and upper chest erythema to face Still having scaling to her scalp Vital Signs: Last Vital Signs Pulse 73 10/08/24 08:11 BP 140/60 H 10/08/24 08:11 Pulse Ox 98 10/08/24 08:11 Oxygen Delivery Method Room Air 10/08/24 08:11 BMI result Body Mass Index 28.3 Results Reviewed Results Reviewed: Laboratory Tests 10/06/24 12:48 WBC 1.1 L RBC 3.58 L Hgb 8.6 L Hct 28.8 L Plt Count 69 L ESR 18 Sodium 141 Potassium 3.3 Chloride 108 Carbon Dioxide 24 BUN 16 Creatinine 0.98 AST 24 ALT 7 Total Creatine Kinase 37 C-Reactive Protein < 0.10 MRI of Left Femur 07/2024 Findings: Normal marrow signal. There is edema in the musculature, particularly within the the adductor musculature. Mild amount of edema within quadriceps musculature. There is also focal edema within gluteus medius/minimus near the insertion upon the greater trochanter without bursitis. Atrophy is present and most prominent within the gluteal and hamstring musculature. There is decreased signal within the distal adductor musculature which may indicate calcification which is associated with the tendon; calcification can be seen in the setting of dermatomyositis. Calcific tendinitis is considered less likely. Extensive edema throughout the subcutaneous fat. No fluid collection. Fluid tracks superficial to the vastus lateralis muscle Small bilateral hip joint effusions. Partially visualized moderate-sized bilateral knee joint effusions. Impression: Edema within the subcutaneous and musculature consistent with the given history of dermatomyositis. MRI of Right Femur 07/2024 Findings: Normal marrow signal. There is edema in the musculature, particularly within the quadriceps musculature and within adductor musculature. There is also focal edema within gluteus medius/minimus near the insertion upon the greater trochanter without bursitis. Atrophy is present and most prominent within the gluteal and hamstring musculature. No decreased signal to indicate calcification. Extensive edema throughout the subcutaneous fat. No fluid collection. Fluid tracks superficial to the vastus lateralis muscle Partially visualized moderate-sized bilateral knee joint effusions. Impression: Edema within the subcutaneous and musculature consistent with the given history of dermatomyositis. PET CT 03/2024 FINDINGS: HEAD AND NECK: No abnormal radiotracer uptake. Visualized the brain or the neck region. On noncontrast CT there is no large intracranial hemorrhage, acute territorial infarct or significant shift of midline structures. CHEST: Ports and Devices: None Lungs: No abnormal radiotracer uptake. Pleura: No significant pleural effusion. Lymph Nodes: No tracer-avid mediastinal, hilar or internal mammary or axillary lymphadenopathy. Mediastinum: There is no significant pericardial effusion/thickening. Breasts/Chest Wall: No abnormal radiotracer uptake. On CT the right breast is enlarged with heterogeneous appearing subcutaneous soft tissues likely cellulitis or edema. There are postsurgical changes with a thick-walled 1.5 cm lesion in the right mid breast. There is diffuse anterior skin thickening. The left breast is unremarkable. ABDOMEN/PELVIS: Liver/Biliary System: No focal tracer-avid liver lesion. The gallbladder is not visualized.. Pancreas: Normal. Spleen: No abnormal radiotracer uptake. Spleen is enlarged measuring 17 cm in length.. Adrenal Glands: There is a 1.2 cm right adrenal lesion not metabolically active. The left adrenal gland is normal.. Kidneys: No hydronephrosis, hydroureter or renal calculi bilaterally. Bowel: There is no significant bowel dilatation to suggest obstruction. Lymph Nodes: No tracer avid retroperitoneal, mesenteric or pelvic and/or groin lymphadenopathy. Pelvic Organs: The urinary bladder is underdistended. MUSCULOSKELETAL: No abnormal FDG activity seen. There is mild S-shaped scoliosis of dorsolumbar spine. VASCULAR: Unremarkable. THE SITE(S) OF MOST INTENSE FDG AVIDITY AND SUV MAX: IMPRESSION: No abnormal FDG activity seen in whole-body to suspect any metastatic lymphadenopathy and metastatic osseous lesions. On CT the right breast is enlarged with a heterogeneous breast appearance likely cellulitis or edema. Thick-walled small round lesion is seen in the right breast likely site of surgery. There is mild thickening of the right breast skin is well. No abnormal FDG activity seen in either breast. Assessment & Plan Assessment & Plan (1) Seronegative rheumatoid arthritis: Code(s): M06.00 - Rheumatoid arthritis without rheumatoid factor, unspecified site Plan: #Seronegative RA/Inflammatory arthritis Patient is a 69 y.o. female with dermatomyositis now with complaints of joint pain in her hands and wrists with evidence of synovitis on exam today involving her MCPs and wrists Given her ongoing issues with her dermatomyositis, her pancytopenia and heart failure with preserved ejection fraction this limits her treatment options She cannot use methotrexate or leflunomide because of her current pancytopenia and she cannot use TNF inhibitors because of her heart failure The other options would be IL6 inhibition or ALHAJI inhibitors Given the mutual benefit of ALHAJI inhibitors with respect to her dermatomyositis and the inflammatory arthritis She had previously gotten denied for ALHAJI inhibitors on the basis of the dermatomyositis, now that she has developed inflammatory arthritis in addition to her myositis, we will try again to get it approved Plan - Start Tofacitinib 11mg daily - Follow up in 2 months - Labs before visit: CBC, CMP, ESR, CRP, CK, Aldolase, RF and CCP (2) Dermatomyositis: Comment: on skin biopsy 07/2021 +++TIF gamma Ab- Dr Krishna 08/10/2021 prednisone started. azathioprine added OSIRIS 1:80, CPK 991, marked proximal muscle weakness, CLARK neg, anti-SRP negative; aldolase WNL Associated breast cancer found 11/2021: Azathioprine stopped due to chemoRx 11/2021: flare of skin rash with taper of prednisone to 30mg 12/2021: monthly IV IVIG started 02/2022: prednisone stopped. Aza restarted. DC in 2023 due to pancytopenia Hydroxychloroquine started 11/2023, DC 01/2024 due to worsening rash 03/2024: Rituxumab started Code(s): M33.90 - Dermatopolymyositis, unspecified, organ involvement unspecified Category: Medical Plan: #Dermatomyositis Patient with refractory dermatomyositis Having a hard time controlling her disease Adding tofacitinib for the new inflammatory arthritis symptoms If not able to start tofacitinib will consider CYC Plan - Continue MMF until Tofacitinib is approved. Once approved, stop MMF. If Tofacitinib not approved we will switch to oral cyclophosphamide - Hold Rituximab - Continue IVIG - RTC 2 months - Labs before visit: CBC, CMP, ESR, CRP, Aldolase, CK, CD 19/CD20 (3) Hypokalemia: Code(s): E87.6 - Hypokalemia Category: Medical Plan: #Hypokalemia Patient with persistent hypokalemia likely in the setting of her Lasix use. Continue K supplementation (4) Long-term current use of intravenous immunoglobulin (IVIG): Code(s): Z79.899 - Other intermediate teacher (current) drug therapy Category: Medical Plan: #Long-term use of IVIG Discussed with this patient the risks and benefits of IVIG use to the management of the rheumatic condition Benefits include improved disease control and maintenance of remission Risks include anaphylaxis, blood clots, transfusion related acute lung injury, hemolytic reaction, fluid overload, heart problems (5) Encounter for correction use of mycophenolate mofetil: Code(s): Z79.624 - ad terminal makeup operator (current) use of inhibitors of nucleotide synthesis Plan: #Long-term Use of Mycophenolate/Mycophenolic Acid Discussed with patient the benefits and risks of mycophenolate/mycophenolic acid for the management of the rheumatic condition Benefits include improved disease control and reduction of mortality Risks include GI upset especially diarrhea, anemia, leukopenia, hepatotoxicity, lymphoproliferative malignancies, PML Mycophenolate and mycophenolic acid are teratogenic and should be avoided in patients who are desiring the Monitoring: ?CBC, LFTs, BMP Recommended holding medication during and for up to 1 week after resolution of a febrile illness Plan I spent 35 minutes reviewing the record and labs, taking a history, examining the patient, discussing the treatment plan, ordering diagnostic work up and documenting in the medical record Orders: Orders C Reactive Protein 2 Months M33.90 - Dermatopolymyositis, unspecified, organ involvement unspecified Aldolase 2 Months M33.90 - Dermatopolymyositis, unspecified, organ involvement unspecified Rheumatoid Factor Today M06.00 - Rheumatoid arthritis without rheumatoid factor, unspecified site Cyclic Citrullinated Peptide Today M06.00 - Rheumatoid arthritis without rheumatoid factor, unspecified site Complete Blood Count Auto Diff 2 Months M33.90 - Dermatopolymyositis, unspecified, organ involvement unspecified Comprehensive Met. Panel 2 Months M33.90 - Dermatopolymyositis, unspecified, organ involvement unspecified Erythrocyte Sedimentation Rate 2 Months M33.90 - Dermatopolymyositis, unspecified, organ involvement unspecified Creatine Kinase Total 2 Months M33.90 - Dermatopolymyositis, unspecified, organ involvement unspecified Medications: Refilled tofacitinib ER 11 mg PO DAILY 30 tabs 5RF M06.00 - Rheumatoid arthritis without rheumatoid factor, unspecified site Coding Level of Care Code Est Pt Level 4 (82996) Complex EM visit Add On G2211 Diagnoses Seronegative rheumatoid arthritis M06.00 Dermatomyositis M33.90 Hypokalemia E87.6 Long-term current use of intravenous immunoglobulin (IVIG) Z79.899 Encounter for intermediate teacher use of mycophenolate mofetil Z79.472
[2024-10-08 08:11] VITALS: BP 140/60; PULSE 73; O2SAT 98; BMI 28.3
--- OUTSIDE RECORDS SUMMARY | 2024-10-08 08:12 | XMS_ITS | Clinical Summary ---
Author Organization [facility] Address [address] [place] [id number] Phone Care Team Providers Care Cask Maker Name Role Phone Leslie Washington NP Primary Care Provider [phone] Allergies No known active allergies Medications DULoxetine (CYMBALTA) 60 MG capsule Take 60 mg by mouth daily. Active lisinopril (PRINIVIL,ZESTRIL ) 20 MG tablet Take 20 mg by mouth daily. Active predniSONE (DELTASONE) 10 MG tablet Take 40 mg by mouth daily with breakfast. 60 mg Active calcium carbonate (OS-TESSA) 1,250 mg (500 mg elemental) tablet Take 1 tablet by mouth 2 (two) times a day. Active cloNIDine HCL (CATAPRES) 0.2 MG tablet Take 0.2 mg by mouth nightly at bedtime. Active cholecalciferol (VITAMIN D3) 2,000 unit capsule Take 1,000 Units by mouth daily. Active cyanocobalamin, vitamin B-12, 1000 MCG tablet Take 1,000 mcg by mouth daily. Active vitamins A,C,T-mudb-pcwlsc (PRESERVISION AREDS) 14,320-226-200 wzpw-wi-qofe Cap Take 1 capsule by mouth 2 (two) times a day with meals. Active HYDROcodone-aceta minophen (NORCO) 5-325 mg per tablet Take 1 tablet by mouth every 6 (six) hours as needed for pain (specific location in comments) (pain from lumpectomy). Active AZATHIOPRINE ORAL Take by mouth daily. Active acetaminophen (TYLENOL) 325 mg tablet Take 650 mg by mouth every 6 (six) hours as needed. Active hydrOXYzine (VISTARIL) 50 MG capsule Take 50 mg by mouth 3 (three) times a day as needed for itching. Unsure if atarax Active digoxin (LANOXIN) 250 mcg (0.25 mg) tablet Take 250 mcg by mouth daily. 3 Active potassium chloride (KLOR-CON) 20 mEq packet TAKE 1 PACKET (20 MEQ) BY MOUTH DAILY FOR 3 DAYS WILL TAKE IN AFTERNOON IN ADDITION TO OTHER DOSE 3 Active azaTHIOprine (IMURAN) 50 mg tablet Take 50 mg by mouth 2 (two) times a day. 3 Active silver sulfADIAZINE (SILVADENE) 1 % creamIndications: Malignant neoplasm of lower-inner quadrant of right breast of female, estrogen receptor positive Apply topically 2 (two) times a day. 400 g 3 Active Active Problems Problem Noted Date Diagnosed Date Malignant neoplasm of lower- inner quadrant of right breast of female, estrogen receptor positive 10/26/2021 Family History Medical History Relation Comments Cancer Father Cancer Paternal Aunt Relation Status Comments Father Paternal Aunt Social History Tobacco Use Types Packs/Day Years Used Date Smoking Tobacco: Former Cigarettes 1 30 1 2009 Smokeless Tobacco: Never Alcohol Use Standard Drinks/Week Comments Not Asked 0 (1 standard drink = 0.6 oz pur e alcohol) 1-2 times a year Education Answer Date Recorded Are you interested in more education? Not on delmar e 07/05/2022 Are you concerned about learning? Not on file 07/05/2022 No 07/05/2022 No 07/05/2022 Digital Access Answer Date Recorded No 08/01/2022 No 08/01/2022 No 08/01/2022 Reliable internet access at home? Not on file 08/01/2022 Device with a working camera? Not on file Comments Unknown Sex and Gender Information Value Date Recorded Sex Assigned at Not on file Legal Sex Female 1:02 PM EDT Gender Identity Not on file Sexual Orientation Not on file Last Filed Vital Signs Vital Sign Reading Time Taken Comments Blood Pressure 156/73 08/14/2022 2:00 PM EDT Pulse 69 08/14/2022 2:00 PM EDT Temperature 36.4 C (97.5 F) 08/14/2022 2:00 PM EDT Respiratory Rate 18 08/14/2022 2:00 PM EDT Oxygen Saturation 99% 07/31/2022 1:49 PM EDT Inhaled Oxygen Concentration - - Weight 85 kg (187 lb 8 oz) 08/14/2022 2:00 PM ED T Height - - Body Mass Index - - Plan of Treatment Health Maintenance Due Date Last Done Comments ALKALINE PHOSPHATASE LEVEL 1957 Adult Td,Tdap Booster 1957 CREATININE LEVEL 1957 LIPID PANEL 1957 POTASSIUM LEVEL 1957 COVID-19 VACCINE (#1) 1962 DEPRESSION SCREENING 1969 SMOKING Hx and SMOKELESS TOBACCO SCREENING 1970 HEPATITIS C SCREENING 1975 PNEUMOCOCCAL VACCINES (50+ years) (1 of 2 - PCV) 01/17/1976 ZOSTER VACCINES (1 of 2) 01/17/1976 COLOGUARD 2002 COLONOSCOPY 2002 COLORECTAL CANCER SCREENING 2002 FIT TEST 2002 FOBT 2002 SIGMOIDOSCOPY 2002 VIRTUAL COLONOSCOPY 2002 RSV VACCINE (1 - Risk 60-74 years 1-dose series) 2017 OSTEOPOROSIS SCREENING INITIAL (ONE-TIME) 2022 MAMMOGRAM 06/19/2024 06/19/2022, 09/08, 09/13/2021, Additional history exists HEPATITIS A VACCINES Aged Out No long er eligible based on patient's age to complete this topic HIB VACCINES Aged Out No longer eligi ble based on patient's age to complete this topic MENINGOCOCCAL VACCINES (ACWY) Aged Out No longer eligible based on patient's age to complete this topic MENINGOCOCCAL VACCINES (B) Aged Out N o longer eligible based on patient's age to complete this topic Medical Devices Not on file Procedures Procedure Name Priority Date/Time Associated Diagnosis Comments MAMMOGRAPHY Routine 06/19/2022 from Last 3 Months or Most Recently Relevant to Health Maintenance Results * MAMMOGRAPHY FOR RESULT ENTRY ONLY (06/19/2022) us Historical Provider HEALTH MAINTENANCE Final Result from Last 3 Months or Most Recently Relevant to Health Maintenance Insurance HEALTH SAFETY NET PARTIAL MEDICARE [facility] [place] [phone] HEALTH SAFETY NET PARTIAL MEDICARE [facility] SUPP[facility] [place] [phone] [facility] PART[facility] MEDIC[facility] MEDIC[facility] SUPPLEMENT HEALTH SAFETY NET PARTIAL MEDICARE [employer] MEDICARE SUPPLEMENT HEALTH SAFETY NET PARTIAL MEDICARE [facility] [place]LE[place] [phone] [facility] PARTIAL MEDIC[facility] MEDIC[facility] SUPPLEMENT Care Teams Cask Maker Relationship Specialty Start Date End Date Leslie Washington NP [address] [address] PCP - General 10/05/21 Additional Source Comments The information contained in this document represents components of the legal health record. It is not the complete legal health record.[facility]
--- OUTSIDE RECORDS SUMMARY | 2024-10-08 08:12 | XMS_ITS | CCD ---
Author Name Interface, [id number] lity Address [place] [address] Organization [facility] Address [address] [address] Care Team Providers Care Respiratory Assistant Name Role Phone Princess PEREZ, Lay Bernal [...]
== END 2024-10-08 08:39 | disposition home or self-care (01) ==
LOC: HO.RHE 08:06
PROVIDERS: PCP Internal Medicine; Visit Provider Student in an Organized Health Care Education/Training Program
DX: M06.00 Rheumatoid arthritis without rheumatoid factor, unspecified site (principal); M33.90 Dermatopolymyositis, unspecified, organ involvement unspecified; E87.6 Hypokalemia; Z79.899 Other long term (current) drug therapy; Z79.624 Long term (current) use of inhibitors of nucleotide synthesis
CPT/HCPCS: 99214; G2211

== ENCOUNTER → 2024-10-08 08:05 | Outpatient (BNVA) | payer MEDICARE, SELFPAY | PROVIDERS: PCP Internal Medicine; Visit Provider Student in an Organized Health Care Education/Training Program | DX: M06.09 Rheumatoid arthritis without rheumatoid factor, multiple sites (principal); M33.90 Dermatopolymyositis, unspecified, organ involvement unspecified; E87.6 Hypokalemia; Z79.624 Long term (current) use of inhibitors of nucleotide synthesis; Z79.899 Other long term (current) drug therapy | CPT/HCPCS: 99212 ==

== ENCOUNTER 2024-10-12 08:56 | Outpatient (REF) | payer MEDICARE, SELFPAY ==
--- NOTE | ~2024-10-12 | US_ITS ---
EXAMINATION: US ABDOMEN HISTORY: K74.60 - Unspecified cirrhosis of liver TECHNIQUE: Real-time grayscale ultrasound imaging of the abdomen was performed and images were reviewed. COMPARISON: Correlation is made with an abdominal ultrasound dated 01/03/2024. FINDINGS: Liver: The right lobe of the liver measures 12.8 cm in size. The left lobe of the liver measures 10.4 cm in size. The liver demonstrates normal homogeneous echotexture. No focal mass or intrahepatic biliary ductal dilatation is identified. There is normal hepatopedal flow in the portal vein. Gallbladder and biliary tree: The gallbladder is surgically absent. The common bile duct is normal in caliber measuring 1 mm. Kidneys: The right kidney measures 8.9 cm in length. The left kidney measures 8.5 cm in length. The kidneys are unremarkable, without evidence of masses, hydronephrosis, or calculi. Pancreas: The pancreatic head, neck, and body are unremarkable. The pancreatic tail is obscured by bowel gas. Spleen: The spleen is enlarged, measuring 14.5 cm in length. Perisplenic varices are noted. Abdominal aorta and inferior vena cava: The visualized portions of the abdominal aorta and inferior vena cava are normal in caliber. There is no free fluid in the abdomen. US/US abdomen complete IMPRESSION: Splenomegaly. Electronically signed by: Billy Banerjee MD 10/12/2024 10:43 AM EDT
--- OUTSIDE RECORDS SUMMARY | 2024-10-12 09:18 | XMS_ITS | CCD ---
Author Name Interface, [id number] lity Address [place] [address] Organization [facility] Address [address] [address] Care Team Providers Care Vamp Presser Name Role Phone Princess PEREZ, Lay Bernal [...]
== END 2024-10-12 08:57 | disposition home or self-care (01) ==
LOC: HO.HMGCX 08:56
PROVIDERS: PCP Internal Medicine; Visit Provider Internal Medicine
DX: K74.60 Unspecified cirrhosis of liver (principal)
CPT/HCPCS: 76700

== ENCOUNTER → 2024-10-12 09:10 | Outpatient (BNV) | payer MEDICARE, SELFPAY | PROVIDERS: PCP Internal Medicine; Visit Provider Radiology Diagnostic Radiology | DX: R16.1 Splenomegaly, not elsewhere classified (principal) | CPT/HCPCS: 76700 ==

== ENCOUNTER 2024-11-26 10:56 | Outpatient (AMB) | payer MEDICARE, SELFPAY ==
--- NOTE | 2024-11-26 10:58 | MHC.PC.OV ---
Vital Signs 11/26/24 11:00 Weight 167 lb 6 oz BP 108/52 L Blood Pressure Location Lt brachial Position Sitting Pulse 76 Pulse Oximetry (%) 98 Oxygen Delivery Method Room Air Intake Visit Reasons: Having a hard time breathing feels like a cold Front Office Coordinator Required: No Accompanied by: Self / Same As Patient Allergies No Known Allergies Allergy (Verified 11/26/24 11:05) Tobacco use date assessed: 10/09/23 Fall risk assessment: 1 Fall in past year Last assessed Fall Risk: 11/26/24 Dental Screening Dental Screen Date: 11/26/24 Did you have a dental visit in the last 12 months?: Yes Did you have a dental problem in the last 6 months where you did not have access to dental care?: No Was dental information given to patient?: Patient has dentist HPI HPI Comments History of Present Illness Details The patient is a 69-year-old female presenting with symptoms of dyspnea and cough, and a recent positive COVID-19 test. The patient reports difficulty breathing and coughing, which have been intermittent over the past week. She took a COVID-19 test with an kit, which returned a positive result. The patient has a history of dermatomyositis, which has been managed with previous chemotherapy for breast cancer. She reports that chemotherapy was effective in controlling her dermatomyositis symptoms. The patient has been experiencing low potassium levels and anemia, which are concerning given her chronic conditions. She has been on diuretics for potential heart failure, which may contribute to her electrolyte imbalance. Knowing the patient comorbidities, new onset shortness of breath, difficulty walking short distnaces she was advised to go to ED. ED provider was called and sign out was completed. [facility] Medical History Anemia Pancytopenia Encounter for monitoring rituximab therapy Long-term current use of intravenous immunoglobulin (IVIG) Plaquenil adverse reaction in therapeutic use Nocturnal cough Pleural effusion History of right breast cancer Axillary adenopathy Bacteremia due to Klebsiella pneumoniae SIRS (systemic inflammatory response syndrome) Acute hypokalemia UTI (urinary tract infection) Abdominal pain Atrial arrhythmia Acute on chronic heart failure with preserved ejection fraction (HFpEF) CHF (congestive heart failure) Acute diastolic (congestive) heart failure Diarrhea Pancolitis Colitis Nonsustained supraventricular tachycardia Port-A-Cath in place Pain in both feet Pedal edema History of COVID-19 Invasive ductal carcinoma of right breast Breast cancer, right Dermatomyositis Breast calcification, right Encounter to establish care Lumbar degenerative disc disease Hypertension Major depression, chronic Insomnia Anxiety Surgical History Hx of colonoscopy Status post right breast lumpectomy History of arthroscopic knee surgery History of hysterectomy History of section History of cholecystectomy History of gastric bypass History of fusion of cervical spine History of tonsillectomy Family History Mother No problems noted. Father Breast cancer Bone cancer Brother Substance use disorder Paternal Aunt Breast cancer Social History Household Members: Significant Other, Family and Children Housing: House Are you a primary care center manager to a significant other at home: No Do you presently have visiting nurse or other home services: Yes ([facility]) Unable to assess alcohol history related to: Unknown Alcohol intake: former Comment: Pedal Edema and pain- uses cane Patient Tobacco Use Status: Former Tobacco user Tobacco use type: Cigarette e-Cigarette/Vaping Use: Never Used Second Hand Smoke Exposure: Yes Advance Directives Date on File: 11/28/21 service: No Current occupational status: unemployed and retired Cognitive needs: No Hearing needs: No Vision needs: Yes (glasses) Female Reproductive History Menstrual Age of Menarche: 17 Questionnaire PHQ-9 Over the last 2 weeks, how often have you been bothered by any of the following problems? 1. Little interest or pleasure in doing things: not at all 2. Feeling down, depressed, or hopeless: not at all 3. Trouble falling or staying asleep, or sleeping too much: several days 4. Feeling tired or having little energy: several days 5. Poor appetite or overeating: not at all 6. Feeling bad about yourself - or that you are a failure or have let yourself or your family down: not at all 7. Trouble concentrating on things, such as reading the newspaper or watching television: not at all 8. Moving or speaking so slowly that other people could have noticed. Or the opposite - being so fidgety or restless that you have been moving around a lot more than usual: not at all 9. Thoughts that you would be better off or of hurting yourself in some way: not at all Total score: 2 10148 - PHQ-9 Billing: Yes Source: Developed by Drs. Billy Delarosa, Navdeep Woodward and colleagues, with an educational julissa from [employer]. Thrive Questionnaire Date Thrive assessed: 04/04/23 I am a: Patient What is your living situation today?: I have a steady place to live Within the past 12 months, did the food you bought not last and you didn't have the money to get more?: Never true Within the past 12 months, did you worry whether your food would run out before you got money to buy more?: Never true Do you have trouble paying for medicines?: No Do you have trouble getting transportation to medical appointments?: No Do you have trouble paying your heating and electricity bill?: No Do you have trouble taking care of your child, family member or friend?: No Do you have trouble with day-to-day activities such as bathing, preparing meals, shopping, managing finances, etc.?: No Are you currently unemployed and looking for a job?: No Are you interested in more education?: No Please select the resources that you would like help with: None THRIVE Score: 0 AUDIT C Alcohol Use Questionnaire (AUDIT-C) 1. How often do you have a drink containing alcohol?: Never Total Score: 0 GATO-7 AMB Questionnaire GATO-7 Date GATO - 7 assessed: 04/04/23 Feeling nervous, anxious, or on edge: 0 = Not at all Not being able to stop or control worryin = Not at all Worrying too much about different things: 0 = Not at all Trouble relaxin = Not at all Being so restless that it is hard to sit still: 0 = Not at all Becoming easily annoyed or irritable: 1 = Several days Feeling afraid as if something awful might happen: 0 = Not at all Total GATO-7 score (0-4 normal; 5-9 mild; 10-14 moderate; 15-21 severe): 1 Source: Developed by Keara Woodall Kurt Kroenke and colleagues, with an educational julissa from [employer]. GATO-7 Assessment Billing GATO-7 Assessment Tool: GATO-7 Assessment 10261 Review of Systems Const Details: Positives besides what was mentioned in HPI are in BOLD Constitutional: No Weight Change, No Fever, No Chills, No Night Sweats, No Fatigue, No Malaise ENT/Mouth: No Hearing Changes, No Ear Pain, No Nasal Congestion, No Sinus Pain, No Hoarseness, No sore throat, No Rhinorrhea, No Swallowing Difficulty Eyes: No Eye Pain, No Swelling, No Redness, No Foreign Body, No Discharge, No Vision Changes Cardiovascular: No Chest Pain, No SOB, No PND, No Dyspnea on Exertion, No Orthopnea, No Claudication, No Edema, No Palpitations Respiratory: No Cough, No Sputum, No Wheezing, No Smoke Exposure, No Dyspnea Gastrointestinal: No Nausea, No Vomiting, No Diarrhea, No Constipation, No Pain, No Heartburn, No Anorexia, No Dysphagia, No Hematochezia, No Melena, No Flatulence, No Jaundice Genitourinary: No Dysmenorrhea, No DUB, No Dyspareunia, No Dysuria, No Urinary Frequency, No Hematuria, No Urinary Incontinence, No Urgency, No Flank Pain, No Urinary Flow Changes, No Hesitancy Musculoskeletal: No Arthralgias, No Myalgias, No Joint Swelling, No Joint Stiffness, No Back Pain, No Neck Pain, No Injury History Skin: No Skin Lesions, No Pruritis, No Hair Changes, No Breast/Skin Changes, No Nipple Discharge Neuro: No Weakness, No Numbness, No Paresthesias, No Loss of Consciousness, No Syncope, No Dizziness, No Headache, No Coordination Changes, No Recent Falls Psych: No Anxiety/Panic, No Depression, No Insomnia, No Personality Changes, No Delusions, No Rumination, No SI/HI/AH/VH, No Social Issues, No Memory Changes, No Violence/Abuse Hx., No Eating Concerns Heme/Lymph: No Bruising, No Bleeding, No Transfusions History, No Lymphadenopathy Endocrine: No Polyuria, No Polydipsia, No Temperature Intolerance Physical exam (Primary Care) Vital Signs: Last Vital Signs Pulse 76 11/26/24 11:00 BP 108/52 L 11/26/24 11:00 Pulse Ox 98 11/26/24 11:00 Oxygen Delivery Method Room Air 11/26/24 11:00 Tobacco/Smoking Status: Tobacco use Status Tobacco use date assessed 10/09/23 11/26/24 11:24 Patient Tobacco Use Status Former Tobacco user 11/26/24 11:24 Tobacco use type Cigarette 11/26/24 11:24 e-Cigarette/Vaping Use Never Used 11/26/24 11:24 PHQ-9: PHQ-9 Score PHQ-9: Total score 2 11/26/24 11:24 Thrive Assessment: Date of Thrive Assessment Date Thrive assessed 04/04/23 11/26/24 11:24 Const Other: Pertinent findings are in BOLD GENERAL APPEARANCE NAD, activity normal for age, well developed/ well nourished, no cyanosis, pallor, or diaphoresis. EYES lids/conjunctiva normal. EARS/NOSE/THROAT Mucous membranes moist, nares normal, lips/teeth normal uvula midline without oral pharyngeal erythema, exudate or swelling TMs normal bilaterally. No lymphangitis/lymphedema. HEAD/NECK normocephalic atraumatic, no facial trauma, neck is supple. RESPIRATORY Short of breath when talking, difficulty taking a deep breath, decreased air entry on bilateral lower lung lord. Lungs clear to auscultation without rhonchi, wheezes, rales CARDIAC Regular rate and rhythm, no edema. ABDOMINAL Soft, ND/NT. No evidence of fluid wave. No pulsatile masses on exam, rebound tenderness, Rosario sign or pain over Mcburney's point. MUSCLES/EXTREMITIES No abnormal range of motion, no swelling. SKIN Warm, pink and dry. No rashes, dermatoses, petechiae or lesions. NEUROLOGICAL Speech is clear and appropriate. Normal level of consciousness. Gait and coordination are normal. 5/5 strength in all extremities. PSYCH Normal mood and affect. Judgement/competence is appropriate Coding Level of Care Code Est Pt Level 4 (68816) Diagnoses Shortness of breath R06.02 Additional Codes GATO-7 Assessment Billing - GATO-7 Assessment Tool: GATO-7 Assessment 52669 ([id number]) PHQ-9 - 16043 - PHQ-9 Billing: Yes ([id number]) Time Spent (min) 20 Assessment & Plan Assessment & Plan (1) Shortness of breath: Code(s): R06.02 - Shortness of breath Category: Medical Plan: ED referral for further evaluation. Plan I discussed with the patient the importance of seeking immediate evaluation in the emergency department due to her respiratory symptoms and potential electrolyte imbalances. We reviewed her history of dermatomyositis and breast cancer, emphasizing the need for ongoing monitoring and dietary modifications to manage her autoimmune condition.
[2024-11-26 11:00] VITALS: BP 108/52; PULSE 76; O2SAT 98
--- OUTSIDE RECORDS SUMMARY | 2024-11-26 13:02 | XMS_ITS | Clinical Summary ---
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 Operator Helper Name Role Phone Unavailable Primary Care Provider Unavailabl e Encounters Date Type Department Care Team Description 11/03/2024 3:06 PM EDT - 11/03/2024 11:59 PM EDT Hospital Encounter [facility] PET Scan [address] [place] [address] History of right breast cancer Discharge Disposition: Home or Self Care from Last 3 Months Social History Tobacco Use Types Packs/Day Years Used Date Smoking Tobacco: Never Assessed Comments Unknown Sex and Gender Information Value Date Recorded Sex Assigned at Not on file Legal Sex Female 10:52 AM EDT Gender Identity Not on file Sexual Orientation Not on file Plan of Treatment Health Maintenance Due Date Last Done Comments Breast Cancer Screening 1955 DTaP,Tdap,and Td Vaccines (1 - Tdap) 01/17/1976 COVID-19 Vaccine (2 - Modern a risk series) 07/08/2023 06/10/2023 Zoster Vaccines (2 of 2) 08/05/2023 06/10/2023 Depression Screening 03/11/2024 Colorectal Cancer Screening: Colonoscopy 11/02/2024 Falls Risk Assessment 11/02/2024 Hepatitis C Screening 11/02/2024 Osteoporosis Screening (Bone Density Screening) 11/02/2024 Social Influencers of Health Screening 11/02/2024 Influenza Vaccine (#1) 2024 4, 12/31/2021 Pneumococcal Vaccine: 50+ Years Completed 01/01/2023 RSV Immunization Adult Patients Completed 06/10/2023 HIB Vaccines Aged Out No longer eligi ble based on patient's age to complete this topic HPV Vaccines Aged Out No longer eligi ble based on patient's age to complete this topic Hepatitis A Vaccines Aged Out No long er eligible based on patient's age to complete this topic Hepatitis B Vaccines Aged Out No long er eligible based on patient's age to complete this topic IPV Vaccines Aged Out No longer eligi ble based on patient's age to complete this topic MMR Vaccines Aged Out No longer eligi ble based on patient's age to complete this topic Meningococcal ACWY Vaccine Aged Out N o longer eligible based on patient's age to complete this topic Meningococcal B Vaccine Aged Out No l onger eligible based on patient's age to complete this topic RSV Immunization Patients Under 20 months Aged Out No longer eligible b ased on patient's age to complete this topic Varicella Vaccines Aged Out No longer eligible based on patient's age to complete this topic Procedures Procedure Name Priority Date/Time Associated Diagnosis Comments PET CT SKULL TO MID THIGH SUBSEQUENT Routine 11/03/2024 5:22 PM EDT History of right breast cancer from Last 3 Months Results * PET CT Skull to Mid Thigh Subsequent (11/03/2024 5:22 PM EDT) Anatomical Region Laterality Modality Body Radiographic Surekha ging 11/04/2024 2:27 PM EDT Impressions 11/04/2024 2:34 PM EDT Impression: No hypermetabolic tumor activity currently. Incidental findings as above. -------- FINAL REPORT -------- Dictated By: Daniel Neil Dictated Date: 11/04/2024 14:27 ET Assigned Physician: Daniel Neil Reviewed and Electronically Signed By: Daniel Neil Signed Date: 11/04/2024 14:34 ET Workstation ID: [id number] Transcribed By: Self Edit Transcribed Date: 11/04/2024 14:27 ET Narrative 11/04/2024 2:[address] Scan CLINICAL HISTORY: RIGHT BREAST CANCER . Technique: The patient received an intravenous injection of fluorine 18 fluorodeoxyglucose. After a short delay a whole body PET scan was obtained from the skull base through midthighs. Additionally a low dose, unenhanced CT scan was acquired for attenuation correction and anatomic localization. The CT portion of the examination was done strictly for attenuation correction and is not a true diagnostic CT examination. Total DLP: 679 mGy/cm Blood glucose level in mg/dl: 87 FDG dose in mCi: 10.9 Comparison: None Findings: Head and Neck: No hypermetabolic abnormality. Retention cyst in the right maxillary sinus. Calcified left thyroid nodule. Chest: No hypermetabolic abnormality. There is a moderate right pleural effusion. There is pleural-based scarring in the anterior right upper lobe which is presumably related to posttreatment changes. There is right lower lobe atelectasis. There is no hypermetabolic pulmonary nodule. This is a nondiagnostic CT to assess for smaller nodules. There is extensive asymmetric edema and skin thickening of the right breast which is presumably related to posttreatment changes with low level FDG uptake but increased uptake above baseline suggest tumor activity currently. Left chest wall port. Abdomen and Pelvis: No hypermetabolic abnormality. Brittney-en-Y gastric bypass. Splenomegaly. Cholecystectomy. Soft tissue edema and calcifications over the lower back and pelvis. 1.4 cm right adrenal nodule without FDG uptake. Musculoskeletal: No hypermetabolic abnormality. Degenerative changes throughout. Procedure Note Daniel Neil MD - 11/04/[address] Scan CLINICAL HISTORY: RIGHT BREAST CANCER . Technique: The patient received an intravenous injection of fluorine 18fluorodeoxyglucose. After a short delay a whole body PET scan wasobtained from the skull base through midthighs. Additionally a low dose,unenhanced CT scan was acquired for attenuation correction and anatomiclocalization. The CT portion of the examination was done strictly forattenuation correction and is not a true diagnostic CT examination. TotalDLP: 679 mGy/cm Blood glucose level in mg/dl: 87 FDG dose in mCi: 10.9 Comparison: None Findings: Head and Neck: No hypermetabolic abnormality. Retention cyst in the rightmaxillary sinus. Calcified left thyroid nodule. Chest: No hypermetabolic abnormality. There is a moderate right pleuraleffusion. There is pleural-based scarring in the anterior right upperlobe which is presumably related to posttreatment changes. There is rightlower lobe atelectasis. There is no hypermetabolic pulmonary nodule.This is a nondiagnostic CT to assess for smaller nodules. There isextensive asymmetric edema and skin thickening of the right breast whichis presumably related to posttreatment changes with low level FDG uptakebut increased uptake above baseline suggest tumor activity currently.Left chest wall port. Abdomen and Pelvis: No hypermetabolic abnormality. Brittney-en-Y gastricbypass. Splenomegaly. Cholecystectomy. Soft tissue edema andcalcifications over the lower back and pelvis. 1.4 cm right adrenalnodule without FDG uptake. Musculoskeletal: No hypermetabolic abnormality. Degenerative changesthroughout. IMPRESSION: Impression: No hypermetabolic tumor activity currently. Incidental findings asabove. -------- FINAL REPORT -------- Dictated By: Daniel Neil Dictated Date: 11/04/2024 14:27 ET Assigned Physician: Daniel Neil Reviewed and Electronically Signed By: Daniel Neil Signed Date: 11/04/2024 14:34 ET Workstation ID: [id number] Transcribed By: Self Edit Transcribed Date: 11/04/2024 14:27 ET Savannah Lind APN IMG NM PROCEDURES Final Re sult from Last 3 Months Insurance MEDICARE
--- OUTSIDE RECORDS SUMMARY | 2024-11-26 13:02 | XMS_ITS | Clinical Summary ---
Author Organization [facility] Address [address] [place] [id number] Phone Care Team Providers Care Massage Operator Name Role Phone Leslie Washington NP Primary Care Provider [phone] Allergies No known active allergies Medications DULoxetine [...] 1,000 mcg by mouth daily. Active vitamins A,C,U-wnei-itzfdx ([facility] AREDS) [id number] fyzi-yk-cxyn Cap Take 1 capsule by mouth 2 [...] 06/19/2024 06/19/2022, 09/08, 09/13/2021, Additional history exists INFLUENZA VACCINE (#1) 2024 HEPATITIS A VACCINES Aged Out No long [...] Most Recently Relevant to Health Maintenance [place] [address] HEALTH SAFETY NET PARTIAL MEDICARE [employer] [facility] MEDICARE SU[place] [phone] HEALTH SAFETY NET PARTIAL MEDICARE [employer]RO[employer] [facility] MEDICARE SUPPLEMENT [facility] [place] [address] [facility] SAFETY NET PARTIAL MEDICARE [employer]RO[address] [facility] MEDICARE SUPPLEMENT [facility] [place] [address] HEALTH SAFETY NET PARTIAL MEDICARE RAILROAD Member Subscriber Plan / Payer (Ef fective 2022-Present) Name:Kate Almaguer Member ID:[id number] Relation to Subscriber:Self Name:Kate Almaguer Subscriber ID:[id number] Payer ID:[id number] Group ID:Not on file Type:Medicare Address: [address] MEDICARE SUPPLEMENT HEALTH SAFETY NET PARTIAL [facility] [place] [address] HEALTH SAFETY NET PARTIAL [facility]IC[facility] MEDICARE SUPPLEMENT Care Teams Massage Operator Relationship Specialty Start Date End Date Leslie Washington NP [address] [address] PCP - General 10/05/21 Additional Source Comments The information contained in this document represents components of the legal health record. It is not the complete legal health record.[facility]
== END 2024-11-26 11:38 | disposition home or self-care (01) ==
LOC: HO.HMCH 10:56
PROVIDERS: PCP Internal Medicine; Visit Provider Internal Medicine
DX: R06.02 Shortness of breath (principal)

== ENCOUNTER → 2024-11-26 10:56 | Outpatient (BNVA) | payer MEDICARE, SELFPAY | PROVIDERS: PCP Internal Medicine; Visit Provider Internal Medicine | DX: R06.02 Shortness of breath (principal) | CPT/HCPCS: 96127; 99212 ==

== ENCOUNTER 2024-11-26 11:54 | Observation (INO) | payer MEDICARE, SELFPAY ==
[2024-11-26] VITALS (7 sets, daily range): BP systolic 148–188; BP diastolic 59–79; PULSE 57–87; RESP 16–22; TEMP 36.5–37.1; O2SAT 96–100; BMI 29.7; BMI 28.8
--- NOTE | ~2024-11-26 | XR_ITS ---
EXAMINATION: XR CHEST 2 VIEWS HISTORY: CP, SOB COMPARISON: Comparison is made with the prior examination dated 11/28/2023. FINDINGS: PA and lateral views of the chest are submitted. A left-sided port is unchanged in position. There is a moderate right pleural effusion. Underlying atelectasis or pneumonia at the right lung base is not excluded. The left lung is clear. The heart appears enlarged. There is degenerative disc disease of the spine. XR/XR chest 2V IMPRESSION: 1. Moderate right pleural effusion. Underlying atelectasis or pneumonia at the right lung base is not excluded. Follow-up is recommended. 2. New cardiomegaly. Electronically signed by: Billy Banerjee MD 11/26/2024 12:49 PM EDT
--- NOTE | 2024-11-26 12:01 | ED.SOB ---
HPI - SOB/Dyspnea General Chief Complaint: Dyspnea Stated Complaint: diff breathing Time Seen by Provider: 11/26/24 12:32 Source: patient Mode of arrival: ambulatory Limitations: no limitations History of Present Illness ED Provider: DR. Knight HPI Narrative: 69-year-old female history of HFpEF on daily Lasix oral 40 mg patient admit that she is not compliant with, unspecified atrial arrhythmia, anxiety, depression, right sided invasive ductal carcinoma of the right breast completed chemotherapy, hypokalemia, dermatomyositis on IVIG, HTN, insomnia, non sustained SVT, pancytopenia, patient presented with 1 day of shortness of breath mostly with minimal exertion, patient took a home test for COVID and was positive yesterday, + nonproductive coughing, no CP, no recent travel, no lower extremity swelling or tenderness, no fever, no chills. Related Data Home Medications ?Medication ?Instructions ?Recorded ?Confirmed vitamins A,C,X-fnbe-iksvhy 4,296 1 cap PO BID 02/04/24 10/08/24 mcg-226 mg-90 mg capsule (PreserVision AREDS) furosemide 20 mg tablet 20 mg PO DAILY 08/17/24 10/08/24 cetirizine 10 mg tablet 20 mg PO DAILY 09/09/24 10/08/24 hydroxychloroquine 200 mg tablet mg PO 09/09/24 10/08/24 potassium chloride 10 mEq 40 meq PO DAILY 09/09/24 10/08/24 tablet,extended release tamoxifen 20 mg tablet mg PO 09/09/24 10/08/24 Previous Rx's ?Medication ?Instructions ?Recorded furosemide 40 mg tablet 40 mg PO DAILY #90 tabs 12/20/23 hydroxyzine HCl 50 mg tablet 50 mg PO TID PRN itching #60 tabs 02/12/24 tacrolimus 0.1 % topical ointment 1 appl topical BID #60 grams 02/27/24 clobetasol 0.05 % topical ointment 1 appl topical BID #60 grams 03/05/24 alendronate 70 mg tablet 70 mg PO QWEEK #12 tabs 05/06/24 methocarbamol 750 mg tablet 1,500 mg (2 x 750 mg) PO Q8H PRN 06/21/24 pain, moderate #20 tabs citalopram 20 mg tablet 20 mg PO DAILY #30 tabs 07/13/24 clonidine HCl 0.2 mg tablet 0.2 mg PO BEDTIME for anxiety #90 07/14/24 tabs mycophenolate mofetil 500 mg tablet 1,000 mg (2 x 500 mg) PO BID 90 07/30/24 days #360 tabs empagliflozin 10 mg tablet 10 mg PO DAILY #30 tabs 08/18/24 (Jardiance) polyethylene glycol 3350 17 238 g PO ONCE #238 grams 09/09/24 gram/dose oral powder (Miralax) furosemide 20 mg tablet 20 mg PO CONT. PER PROTOCOL #90 09/30/24 tabs tofacitinib 11 mg tablet,extended 11 mg PO DAILY #30 tabs 10/08/24 release 24 hr Allergies Allergy/AdvReac Type Severity Reaction Status Date / Time No Known Allergies Allergy Verified 11/26/24 12:02 Review of Systems Review of Systems: All other systems are reviewed and are negative Constitutional: Reports as per HPI and Reports no additional constitutional complaints Eyes: Reports as per HPI and Reports no additional eye complaints Reports system reviewed and no additional complaints, except as documented Cardiovascular: Reports as per HPI and Reports no additional cardiovascular complaints Respiratory: Reports as per HPI and Reports no additional respiratory complaints Gastrointestinal: Reports as per HPI and Reports no additional gastrointestinal complaints Genitourinary: Reports no additional female genitourinary complaints Musculoskeletal: Reports no additional musculoskeletal complaints Skin/Breast: Reports system reviewed and no additional complaints, except as docu Psychiatric: Reports no additional psychiatric complaints Endocrine: Reports no additional endocrine complaints Hematologic/Lymphatic: Reports no additional hematologic/lymphatic complaints Allergic/Immunologic: Reports no additional allergic/immunologic complaints Reports system reviewed and no additional complaints, except as documented and Reports Abnormal speech present [facility] Past Medical History Medical History Anemia Pancytopenia Encounter for monitoring rituximab therapy Long-term current use of intravenous immunoglobulin (IVIG) Plaquenil adverse reaction in therapeutic use Nocturnal cough Pleural effusion History of right breast cancer Axillary adenopathy Bacteremia due to Klebsiella pneumoniae SIRS (systemic inflammatory response syndrome) Acute hypokalemia UTI (urinary tract infection) Abdominal pain Atrial arrhythmia Acute on chronic heart failure with preserved ejection fraction (HFpEF) CHF (congestive heart failure) Acute diastolic (congestive) heart failure Diarrhea Pancolitis Colitis Nonsustained supraventricular tachycardia Port-A-Cath in place Pain in both feet Pedal edema History of COVID-19 Invasive ductal carcinoma of right breast Breast cancer, right Dermatomyositis Breast calcification, right Encounter to establish care Lumbar degenerative disc disease Hypertension Major depression, chronic Insomnia Anxiety Surgical History Hx of colonoscopy Status post right breast lumpectomy History of arthroscopic knee surgery History of hysterectomy History of section History of cholecystectomy History of gastric bypass History of fusion of cervical spine History of tonsillectomy Family History Family History Mother No problems noted. Father Breast cancer Bone cancer Brother Substance use disorder Paternal Aunt Breast cancer Social History Social History Household Members: Significant Other, Family and Children Housing: House Are you a primary early breastfeeding care specialist to a significant other at home: No Do you presently have visiting nurse or other home services: Yes ([facility]) Unable to assess alcohol history related to: Unknown Alcohol intake: former Comment: Pedal Edema and pain- uses cane Patient Tobacco Use Status: Former Tobacco user Tobacco use type: Cigarette e-Cigarette/Vaping Use: Never Used Second Hand Smoke Exposure: Yes Advance Directives: Yes Advance Directives on File: Yes Advance Directives Date on File: 11/28/21 service: No Current occupational status: unemployed and retired Cognitive needs: No Hearing needs: No Vision needs: Yes (glasses) Physical Exam Vital Signs: Vital Signs: Last Vital Signs Temp 97.7 F 11/26/24 11:57 Pulse 67 11/26/24 14:00 Resp 18 11/26/24 14:00 BP 155/59 H 11/26/24 14:00 Pulse Ox 99 11/26/24 14:00 O2 Del Method Room Air 11/26/24 14:00 BMI result Body Mass Index 29.7 Vital signs have been reviewed and appear to be correct. Blood pressure elevated. Heart rate normal. Respiratory rate normal. Temperature normal. Oxygen saturation normal. Appearance: Alert. Oriented X3. No acute distress. Head: Normal external exam. Normocephalic. Atraumatic. No Wheeler signs noted. No raccoon eyes noted Eyes: PERRLA. EOMI. Conjunctiva and sclera normal. Eyelids normal. ENT: TM's Normal. Pharynx normal. Uvula midline. Moist mucous membranes. No trismus noted. No drooling noted. No muffled voice noted. Neck: Normal inspection. Neck supple. FROM. No adenopathy. Thyroid Normal. No meningeal signs. No neck mass noted. CVS: Normal heart rate and rhythm. Heart sound normal. No murmurs noted. Pulses normal throughout. Respiratory: No respiratory distress. Painless inspiration. Breath sounds normal. No wheezes/rales/rhonchi noted. Chest nontender. No accessory muscle usage noted or decreased air movement noted. Abdomen: Soft and nontender. Bowel sounds normal in all 4 quadrants. No distention noted. No organomegaly noted. No visible injury noted. Back: No CVA tenderness. Full range of motion noted. Skin: Skin warm and dry. Normal skin color. Normal skin turgor. No rashes/lesions/lacerations noted. Extremities: +2 bilateral lower extremity edema. Extremities exhibit normal range of motion. Extremities nontender. Neuro: Oriented X 3. Cranial nerve exam: II-XII are grossly intact No motor deficit. No sensory deficit. Reflexes normal. Course Course Course Narrative: This is an RME: Additional HPI, ROS, PE not included below will be deferred to primary provider. RME assessment and note performed by: Sylvia Kapoor PA-C This is a 19-fgml-zbm-female, with a hx of CHF, dermatomyositis on IVIG therapy, neuropathy, leukopenia, hypertension, anxiety and depression who presents to the ER with complaints of shortness of breath Plan: Labs, EKG, CXR, further ER eval needed Reevaluation(s) Reevaluation #1: + COVID-19 infection, acute CHF exacerbation, chest x-ray can not rule out pneumonia which is unlikely. Will admit for further diuresis and nitro paste. Supportive treatment for COVID-19 patient maintaining O2 sat okay. No sepsis. Time: 14:15 Medical Decision Making Differential Diagnosis Differential Diagnoses: The differential diagnosis associated with the presentation includes (Pneumonia, pneumothorax, pleural effusion, CHF, ACS, electrolyte derangement, severe anemia, hypoxia.) Admission/Observation Consideration of admission/observation: Escalation of care including admission/observation considered Consult Healthcare Provider Management of the patient was discussed with: Hospitalist (Dr. Neil) Lab Data MDM Lab Attestation statement: I reviewed the patient's lab results. 11/26/24 13:16 11/26/24 13:17 Labs: Lab Results 11/26/24 11/26/24 11/26/24 Range/Units 13:16 13:17 13:59 WBC 1.2 L (4.8-10.8) X10*3/uL RBC 3.20 L (4.20-5.50) X10*6/uL Hgb 7.8 L (12.0-16.0) g/dl Hct 25.4 L (37.0-47.0) % MCV 79.4 L (80.0-98.0) fL MCH 24.4 L (27.0-33.0) pg MCHC 30.7 L (31.0-35.0) g/dl RDW 18.2 H (11.0-16.0) % Plt Count 64 L D (160-400) X10*3/uL MPV 11.5 (9.4-12.3) fL Sodium 142 (135-145) mmol/L Potassium 3.6 (3.3-5.1) mmol/L Chloride 116 H (96-108) mmol/L Carbon Dioxide 22 (22-29) mmol/L Anion Gap 8 L (12-20) BUN 16 (9-16) mg/dL Creatinine 0.86 (0.5-1.4) mg/dL Estim Creat Clear Calc 62.0 Estimated GFR > 60 Random Glucose 87 (60-115) mg/dL Calcium 8.1 L (8.4-10.2) mg/dL Magnesium 1.9 (1.6-2.6) mg/dL Total Bilirubin 0.8 (0.0-1.0) mg/dL Direct Bilirubin 0.4 (0.0-0.5) mg/dL AST 25 (5-31) U/L ALT 7 (0-31) U/L Alkaline Phosphatase 74 (39-117) U/L Troponin I High Sens 4.7 D (<3.5-17.0) ng/L NT-Pro-B Natriuret Pep 760.8 H (<300) pg/mL Total Protein 6.9 (6.5-8.0) g/dL Albumin 3.2 L (3.5-5.0) g/dL Urine Color Dark Yellow Urine Appearance Clear Urine pH 5.5 (5.0-9.0) Ur Specific [place] 1.025 (1.005-1.025) Urine Protein 30 (1+) H (Neg-Trace) mg/dL Urine Glucose (UA) >=1000 H (Negative) mg/dL Urine Ketones Negative (Negative) mg/dL Urine Blood Trace H (Negative) Urine Nitrite Negative (Negative) Ur Leukocyte Esterase Negative (Negative) COVID-19 (JEN) Positive A (Negative) COVID-19 Clin Com See Note Influenza Type A (LISA) Negative (Negative) Influenza Type B (LISA) Negative (Negative) Influenza A & B Note See Note Independent Interpretation I performed an independent interpretation of an: Plain X-Ray (Chest:1. Moderate right pleural effusion. Underlying atelectasis or pneumonia at the right lung base is not excluded. Follow-up is recommended. 2. New cardiomegaly.) Radiology Impression Discussion of test interpretation with radiology: I have reviewed the radiologist's reading. Critical Care Time Critical Care Time Critical Care Time: Yes Total Critical Care Time: 60 Attestation: The patient was critically ill with a high probability of imminent or life-threatening deterioration. I spent greater than 30 minutes of discontinuous time evaluating the patient, delivering critical care at the bedside, discussing evaluating data with consultants. Critical care time does not include time spent performing separately billable procedures or teaching. Time spent performing critical care was 60 minutes. Discharge Plan Discharge Clinical Impression: Acute exacerbation of CHF (congestive heart failure), COVID-19 virus infection Patient Disposition: Admitted As Inpatient Print Language: Monegasque
--- NOTE | 2024-11-26 12:02 | ECG_ITS ---
Test Reason : SOB,CP Blood Pressure : */* mmHG Vent. Rate : 80 BPM Atrial Rate : * BPM P-R Int : * ms QRS Dur : 70 ms QT Int : 388 ms P-R-T Axes : * 30 14 degrees QTcB Int : 447 ms Probably sinus Low voltage QRS Nonspecific T wave abnormality Abnormal ECG When compared with ECG of 26-Aug-2024 10:26, Vent. rate has increased by 27 bpm Nonspecific T wave abnormality, worse in Inferior leads Nonspecific T wave abnormality now evident in Anterolateral leads Referred By: Sylvia Kapoor Electronically Signed By: SHAE MIR
[2024-11-26 13:26] LABS: Hematocrit 25.4 % (37.0-47.0); Hemoglobin 7.8 g/dl (12.0-16.0); Imm Gran Abs Auto 0.01 X10*3/uL (0.00-0.03); Imm Gran Pct Auto 0.8 % (0.0-0.4); Lymphocytes Absolute Auto 0.2 X10*3/uL (1.2-4.9); MANUAL DIFF FLAG SCAN; Mean Corpuscular HGB Conc 30.7 g/dl (31.0-35.0); Mean Corpuscular Hemoglobin 24.4 pg (27.0-33.0); Mean Corpuscular Volume 79.4 fL (80.0-98.0); NRBC Abs Auto 0.000 X10*3/uL (0.0-0.012); NRBC Pct Auto 0.0 /100WBC (0.0-0.2); Red Blood Count 3.20 X10*6/uL (4.20-5.50); SCAN SMEAR FLAG 1
[2024-11-26 13:31] LABS: Platelet Count 64 X10*3/uL (160-400); White Blood Count 1.2 X10*3/uL (4.8-10.8)
[2024-11-26 13:45] LABS: Alanine Aminotransferase 7 U/L (0-31); Albumin Level 3.2 g/dL (3.5-5.0); Alkaline Phosphatase 74 U/L (39-117); Anion Gap 8 (12-20); Aspartate Amino Transferase 25 U/L (5-31); Blood Urea Nitrogen 16 mg/dL (9-16); Calcium 8.1 mg/dL (8.4-10.2); Carbon Dioxide 22 mmol/L (22-29); Chloride 116 mmol/L (96-108); Creatinine Clr Calc Pharmacy 62.0; Estimated Glomerular Filt Rate > 60; Magnesium 1.9 mg/dL (1.6-2.6); Potassium 3.6 mmol/L (3.3-5.1); Sodium 142 mmol/L (135-145); Total Protein 6.9 g/dL (6.5-8.0)
[2024-11-26 13:51] LABS: NT Pro B Type Natriuretic Pept 760.8 pg/mL (<300)
[2024-11-26 13:52] LABS: Troponin-I High Sensitivity 4.7 ng/L (<3.5-17.0)
[2024-11-26 13:52] LABS: COVID-19 Test Positive (Negative); IDNOW Serial# 55D5AD1C
[2024-11-26 13:57] LABS: IDNOW Serial# 58CA691E; Influenza B2 Negative (Negative)
[2024-11-26 14:10] LABS: Appearance Urine Clear; Glucose Urine UA >=1000 mg/dL (Negative); PH 5.5 (5.0-9.0); Specific Gravity - Urine 1.025 (1.005-1.025); UMIC TRIGGER UACC YES
[2024-11-26] MEDS: Furosemide 40 MG/4 ML VIAL IVPUSH (14:27)
[2024-11-26] MEDS: Nitroglycerin 2 % Oint 1 GM Packet 0.5 INCH TRANSDERMA (14:28)
--- NOTE | 2024-11-26 15:05 | P.HPHOSP_ITS ---
History of Present Illness Date of Service: 11/26/24 Attending physician on admission: Bhavesh Estrada Chief Complaint: Shortness of breath This is a 69-year-old female who presents to the emergency department from her PCP office due to shortness of breath. Patient states for the past 4 days she has been having shortness of breath especially with ambulation. She has minimal associated cough. No fever, no chills. 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 The patient took a COVID-19 test yesterday and tested positive. She was seen by her PCP today and due to her shortness of breath she was sent to the emergency department for evaluation. In the emergency room her chest x-ray showed moderate right pleural effusion with atelectasis versus pneumonia. She was afebrile, had no hypoxia. Due to dyspnea she will be admitted overnight for observation. Review of Systems 2 Review of Systems: Yes all other systems are reviewed and are negative Constitutional: Constitutional: Denies chills and Denies fever(s) Cardiovascular: Cardiovascular: Reports dyspnea Respiratory: Respiratory: Reports dyspnea Gastrointestinal: Gastrointestinal: Denies abdominal pain [facility] Medical History Anemia Pancytopenia Encounter for monitoring rituximab therapy Long-term current use of intravenous immunoglobulin (IVIG) Plaquenil adverse reaction in therapeutic use Nocturnal cough Pleural effusion History of right breast cancer Axillary adenopathy Bacteremia due to Klebsiella pneumoniae SIRS (systemic inflammatory response syndrome) Acute hypokalemia UTI (urinary tract infection) Abdominal pain Atrial arrhythmia Acute on chronic heart failure with preserved ejection fraction (HFpEF) CHF (congestive heart failure) Acute diastolic (congestive) heart failure Diarrhea Pancolitis Colitis Nonsustained supraventricular tachycardia Port-A-Cath in place Pain in both feet Pedal edema History of COVID-19 Invasive ductal carcinoma of right breast Breast cancer, right Dermatomyositis Breast calcification, right Encounter to establish care Lumbar degenerative disc disease Hypertension Major depression, chronic Insomnia Anxiety Family History Mother No problems noted. Father Breast cancer Bone cancer Brother Substance use disorder Paternal Aunt Breast cancer Surgical History Hx of colonoscopy Status post right breast lumpectomy History of arthroscopic knee surgery History of hysterectomy History of section History of cholecystectomy History of gastric bypass History of fusion of cervical spine History of tonsillectomy Social History Household Members: Spouse and Children Housing: House Are you a primary livestock caretaker to a significant other at home: No Do you presently have visiting nurse or other home services: Yes ([facility]) Unable to assess alcohol history related to: Unknown Alcohol intake: former Comment: Pedal Edema and pain- uses cane Patient Tobacco Use Status: Former Tobacco user Tobacco use type: Cigarette Smoked in Last 30 Days: No e-Cigarette/Vaping Use: Never Used Second Hand Smoke Exposure: Yes Use of substances other than those prescribed or required for medical reasons: No Currently Displaying Signs/Symptoms of Drug Intoxication Withdrawal: No Have you been hit, kicked, punched, or otherwise hurt by someone within the past year? If so, by whom?: No Do you feel safe in your current relationship?: Yes Are you made to feel afraid or neglected: No Advance Directives: Yes Advance Directives on File: Yes Advance Directives Date on File: 11/28/21 Do you have a plan to hurt others: No Plan Recently lost weight without trying: No Patient : No : No Poor oral hygiene: No service: No Current occupational status: unemployed and retired Cognitive needs: No Hearing needs: No Vision needs: Yes (glasses) Meds Allergies Allergy/AdvReac Type Severity Reaction Status Date / Time No Known Allergies Allergy Verified 11/26/24 12:02 Home Medications ?Medication ?Instructions ?Recorded ?Confirmed ?Last Taken ?Type cetirizine 10 mg tablet 20 mg PO DAILY 09/09/2411/0911/25/24 History hydroxychloroquine 200 mg tablet 200 mg PO DAILY 09/0911/26/24 11/25/24 History tamoxifen 20 mg tablet 20 mg PO DAILY 09/09/2411/0911/25/24 History alendronate 70 mg tablet 70 mg PO TU 11/26/2411/26/ 5 11/24/24 History furosemide 40 mg tablet 40 mg PO BID@0900,1400 11/2611/26/2425 History potassium chloride 20 mEq 20 meq PO BID 11/26/2411/2611/25/24 History tablet,extended release Physical Exam 2 Vital Signs and Narrative: Vital Signs: Last Vital Signs Temp 97.7 F 11/26/24 11:57 Pulse 67 11/26/24 14:00 Resp 18 11/26/24 14:00 BP 155/59 H 11/26/24 14:27 Pulse Ox 99 11/26/24 14:00 O2 Del Method Room Air 11/26/24 14:00 BMI result Body Mass Index 29.7 Const: General: cooperative, comfortable, alert and awake Nutritional Appearance: overweight Orientation/consciousness: patient oriented x3 Resp: Other: diminished breath sounds right side; no wheeze; mild tachypnea Effort & Inspection: no use of accessory muscles Cardio: Rate: regular rate Neuro: General: patient oriented x3, moves all extremities and CN's II-XI intact bilaterally Extrem: General: No pedal edema Results Labs 11/26/24 13:16 11/26/24 13:17 Labs: Laboratory Results - last 24 hr 11/26/24 11/26/24 11/26/24 13:16 13:17 13:59 MCV 79.4 L MCH 24.4 L MCHC 30.7 L RDW 18.2 H Plt Count 64 L D MPV 11.5 Immature Gran % (Auto) 0.8 H Neut % (Auto) 67.8 Lymph % (Auto) 15.7 L [place] % (Auto) 13.2 H Eos % (Auto) 1.7 Baso % (Auto) 0.8 Lymph # (Auto) 0.2 L [place] # (Auto) 0.2 Eos # (Auto) 0.0 Baso # (Auto) 0.0 Abs Immat Gran (auto) 0.01 Absolute Neuts (auto) 0.8 L Absolute Nucleated RBC 0.000 Nucleated RBC % (auto) 0.0 Smear Tech's Comments VERIFIED Anion Gap 8 L Estim Creat Clear Calc 62.0 Estimated GFR > 60 Random Glucose 87 Calcium 8.1 L Magnesium 1.9 Total Bilirubin 0.8 Direct Bilirubin 0.4 AST 25 ALT 7 Alkaline Phosphatase 74 Troponin I High Sens 4.7 D NT-Pro-B Natriuret Pep 760.8 H Total Protein 6.9 Albumin 3.2 L Urine Color Dark Yellow Urine Appearance Clear Urine pH 5.5 Ur Specific [place] 1.025 Urine Protein 30 (1+) H Urine Glucose (UA) >=1000 H Urine Ketones Negative Urine Blood Trace H Urine Nitrite Negative Ur Leukocyte Esterase Negative Urine RBC 0-2 Urine WBC 0-5 Ur Squamous Epith Cells 6-10 Urine Bacteria 1+ Hyaline Casts 0-2 COVID-19 (JEN) Positive A COVID-19 Clin Com See Note Influenza Type A (LISA) Negative Influenza Type B (LISA) Negative Influenza A & B Note See Note Imaging Radiologist's Impressions: Impressions Chest X-Ray 11/26/24 12:40 IMPRESSION: 1. Moderate right pleural effusion. Underlying atelectasis or pneumonia at the right lung base is not excluded. Follow-up is recommended. 2. New cardiomegaly. Electronically signed by: Billy Banerjee MD 11/26/2024 12:49 PM EDT RP Assessment and Plan (1) COVID-19 virus infection: Status: Acute Plan This is a 69-year-old female with a history of breast cancer status post chemotherapy, immunotherapy, lumpectomy in remission, now on tamoxifen,HfpEF, dermatomyositis on twice monthly IVIG, liver cirrhosis with pancytopenia, asthma who presents to the emergency department with 4 day history of shortness of the breath Shortness of breath Likely due to COVID-19, possible viral pneumonia. Chest x-ray showing atelectasis versus pneumonia at the right lung base No hypoxia, not candidate for steroids Supportive care HFpEF given age pro-bnp not indicative of acute CHF appears euvolemic continue baseline lasix Last echocardiogram in September 2024 shows grade 3 diastolic dysfunction with a preserved ejection fraction and mild pulmonary hypertension Right pleural effusion No hypoxia Previous chest CT from June shows large right pleural effusion Outpatient follow-up Liver cirrhosis with chronic pancytopenia H/H/platelet level at baseline Med rec pending at the time of admission DVT prophylaxis-mechanical devices. Avoid chemoprophylaxis for thrombocytopenia Quality Stroke Does the patient have a stroke diagnosis?: No VTE Prior VTE?: No VTE Risk Level:: Medical - moderate - high VTE Device Contraindication: N/A - Device Ordered VTE Drug Contraindication: Treatment Not Indicated
--- NOTE | 2024-11-26 21:38 | PHA.MEDREC ---
Addendum entered by Reg Chung [facility] 11/26/24 22:30: Dr. Cholo Myers was made aware of the concern of the last fill dates for meds noted below. Original Note: Pharmacy Consult ? Medication Reconciliation Pharmacy has completed the medication reconciliation. Spoke to patient to confirm med list. Per patient, she takes alendronate on tuesdays, furosemide 40 mg bid @0900+@1400, hydroxychloroquine 200 mg daily, potassium 10 mEq 2 tabs bid, tamoxifen 20 mg daily and Xeljanz 11 mg daily. Patient said [facility] [place] [phone] and said that she fills Xeljanz at [facility] using Good[facility] coupon but [facility] called [facility] and [facility] ( ). [facility] also confirmed last fill dates for alendronate (02/2024 for 84 day supply), hydroxychloroquine (06/14/24 for 48 tabs), jardiance (09/15/24 for 30 day supply) which are not current. Patient said she last took her medications yesterday 11/25/24.
[2024-11-27] MEDS: 0.9 % Sodium Chloride Flush 3 ML SYRINGE IVFLUSH ×4 (01:06→21:08)
[2024-11-27 03:47] VITALS: BP 139/63; PULSE 74; RESP 20; TEMP 37.2; O2SAT 94
[2024-11-27 07:31] VITALS: BP 140/85; PULSE 80; RESP 18; TEMP 36.7; O2SAT 95
--- NOTE | 2024-11-27 09:41 | MHC.CM.PN ---
Millie 11/27/24, Pt. lives with her family, PCP confirmed: Dr. Vance, HCP is on file and confirmed: [facility]. Pt. does not use home health services, for DME, she uses a cane and a walker. She can arrange a ride home at [place]. DCP: home, self care, CM to follow for DC needs.
[2024-11-27 11:08] VITALS: BP 145/70; PULSE 73; RESP 18; TEMP 36.6; O2SAT 96
[2024-11-27] MEDS: Potassium Chloride ER 20 MEQ TAB.ER.PRT PO ×2 (12:03→21:07)
[2024-11-27 14:34] VITALS: BP 143/64
[2024-11-27 14:41] VITALS: BP 143/64; PULSE 77; RESP 18; TEMP 36.4; O2SAT 94
--- NOTE | 2024-11-27 16:26 | P.PNIM_ITS ---
Subjective Subjective Date of Service: 11/27/24 Interval History: No acute issues overnight. Breathing still remains labored Review of Systems Denies chest pain Denies shortness of breath Denies nausea vomiting diarrhea Denies fever chills Physical Exam 2 Vital Signs: Vital Signs: Last Vital Signs Temp 97.6 F 11/27/24 14:41 Pulse 77 11/27/24 14:41 Resp 18 11/27/24 14:41 BP 143/64 H 11/27/24 14:41 Pulse Ox 94 11/27/24 14:41 O2 Del Method Room Air 11/27/24 14:41 BMI result Body Mass Index 28.8 Const: Other: Awake alert able to talk in short sentences Resp: Other: Clear to auscultation bilaterally no rales rhonchi or wheezes Cardio: Other: No S4; positive S1-S2; no S3 murmurs rubs or gallops GI: Other: Soft nontender nondistended normoactive bowel sounds Extrem: Other: No edema bilaterally Objective Data Active Medications Acetaminophen (Acetaminophen 325 Mg Tablet) 650 mg PO Q6H PRN PRN Reason: Pain, Mild 1-3,fever,headache Last Admin: 11/27/24 09:29 Dose: 650 mg Documented By: MARGARET Albuterol Sulfate (Albuterol Sulfate (0.083%) 2.5 Mg/3 Ml Vial.Neb) 2.5 mg INHALE Q4H PRN PRN Reason: Shortness of Breath/Wheezing Betamethasone Dipropion Augmented (Betamethasone Dip Aug 0.05% Cr 15 Gm Tube) 1 appl TOPICAL BID CHELSIE Calcium Carbonate (Calcium Carbonate 750 Mg Tab.Chew) 750 mg PO Q4H PRN PRN Reason: Heartburn Clonidine HCl (Clonidine Hcl 0.2 Mg Tablet) 0.2 mg PO BEDTIME CHELSIE; Protocol Empagliflozin (Empagliflozin 10 Mg Tablet) 10 mg PO DAILY CHELSIE Last Admin: 11/27/24 12:03 Dose: 10 mg Documented By: MARGARET Escitalopram Oxalate (Escitalopram Oxalate 10 Mg Tablet) 10 mg PO DAILY CHELSIE Furosemide (Furosemide 40 Mg Tablet) 40 mg PO BID@0900,1400 [facility]; Protocol Last Admin: 11/27/24 14:34 Dose: 40 mg Documented By: MARGARET Guaifenesin/Dextromethorphan (Guaifenesin Dm 100/10/5 Ml 5 Ml Syrup) 5 ml PO Q6H PRN PRN Reason: Cough Hydroxychloroquine Sulfate (Hydroxychloroquine Sulfate 200 Mg Tablet) 200 mg PO DAILY [facility] Last Admin: 11/27/24 12:02 Dose: 200 mg Documented By: MARGARET Hydroxyzine HCl (Hydroxyzine Hcl 50 Mg Tablet) 50 mg PO Q6H PRN PRN Reason: Anxiety Loratadine (Loratadine 10 Mg Tablet) 20 mg PO DAILY [facility] Last Admin: 11/27/24 12:02 Dose: 20 mg Documented By: MARGARET Magnesium Hydroxide (Milk Of Magnesia 30 Ml Oral.Susp) 30 ml PO DAILY PRN PRN Reason: Constipation Melatonin (Melatonin 3 Mg Tablet) 6 mg PO BEDTIME PRN PRN Reason: Insomnia Last Admin: 11/27/24 01:05 Dose: 6 mg Documented By: CHENG Methocarbamol (Methocarbamol 750 Mg Tablet) 1,500 mg PO Q8H PRN PRN Reason: pain, moderate Mycophenolate Mofetil (Mycophenolate Mofetil 250 Mg Capsule) 1,000 mg PO BID [facility] Last Admin: 11/27/24 12:02 Dose: 1,000 mg Documented By: MARGARET Non-Formulary Medication (Tacrolimus) 1 appl TOPICAL BID [facility] Non-Formulary Medication (Tofacitinib) 11 mg PO DAILY [facility] Ondansetron HCl (Ondansetron Hcl 4 Mg/2 Ml Vial) 4 mg IVPUSH Q4H PRN PRN Reason: Nausea and Vomiting Potassium Chloride (Potassium Chloride Er 20 Meq Tab.Er.Prt) 20 meq PO BID [facility] Last Admin: 11/27/24 12:03 Dose: 20 meq Documented By: MARGARET Sodium Chloride (0.9 % Sodium Chloride Flush 3 Ml Syringe) 3 ml IVFLUSH QSHIFT [facility] Last Admin: 11/27/24 09:30 Dose: 3 ml Documented By: MARGARET Tamoxifen Citrate (Tamoxifen Citrate 10 Mg Tablet) 20 mg PO DAILY [facility] Last Admin: 11/27/24 14:33 Dose: 20 mg Documented By: MARGARET Comments: waiting for pharm to bring to unit Labs 11/26/24 13:16 11/26/24 13:17 Assessment and Plan (1) COVID-19 virus infection: Status: Acute (2) Dermatomyositis: Status: Acute Plan This is a 69-year-old female with a history of breast cancer status post chemotherapy, immunotherapy, lumpectomy in remission, now on tamoxifen,HfpEF, dermatomyositis on twice monthly IVIG, liver cirrhosis with pancytopenia, asthma who presents to the emergency department with 4 day history of shortness of the breath 1 COVID-19 infection -short of breath with minimal exertion -no indication for therapies at this time -we will need home O2 eval 2.HFpEF -stable and well compensated -continue outpatient therapies 3.Liver cirrhosis/chronic pancytopenia -at baseline Pneumatics Full code Quality Stroke Does the patient have a stroke diagnosis?: No VTE Prior VTE?: No VTE Risk Level:: Medical - moderate - high VTE Device Contraindication: N/A - Device Ordered VTE Drug Contraindication: Treatment Not Indicated
[2024-11-27 20:00] VITALS: BP 170/78; PULSE 87; RESP 18; TEMP 36.7; O2SAT 96
[2024-11-27] MEDS: Betamethasone Dip Aug 0.05% Cr 15 GM TUBE 1 APPL TOPICAL (21:07)
[2024-11-28] VITALS: BP 96/51; PULSE 68; RESP 18; TEMP 36.8; O2SAT 97
[2024-11-28 01:11] VITALS: BP 97/55; PULSE 78
[2024-11-28 03:42] VITALS: BP 96/47; PULSE 62; RESP 18; TEMP 36.8; O2SAT 95
[2024-11-28 07:25] VITALS: BP 134/62; PULSE 61; RESP 18; TEMP 37.2; O2SAT 98
[2024-11-28 07:25] LABS: Hematocrit 26.2 % (37.0-47.0); Hemoglobin 7.7 g/dl (12.0-16.0); Imm Gran Abs Auto 0.00 X10*3/uL (0.00-0.03); Imm Gran Pct Auto 0.0 % (0.0-0.4); Lymphocytes Absolute Auto 0.3 X10*3/uL (1.2-4.9); MANUAL DIFF FLAG SCAN; Mean Corpuscular HGB Conc 29.4 g/dl (31.0-35.0); Mean Corpuscular Hemoglobin 23.6 pg (27.0-33.0); Mean Corpuscular Volume 80.4 fL (80.0-98.0); NRBC Abs Auto 0.000 X10*3/uL (0.0-0.012); NRBC Pct Auto 0.0 /100WBC (0.0-0.2); Platelet Count 62 X10*3/uL (160-400); Red Blood Count 3.26 X10*6/uL (4.20-5.50); SCAN SMEAR FLAG 1; White Blood Count 1.2 X10*3/uL (4.8-10.8)
[2024-11-28 07:54] LABS: Alanine Aminotransferase 6 U/L (0-31); Albumin Level 2.9 g/dL (3.5-5.0); Alkaline Phosphatase 70 U/L (39-117); Aspartate Amino Transferase 25 U/L (5-31); Blood Urea Nitrogen 14 mg/dL (9-16); Calcium 7.9 mg/dL (8.4-10.2); Creatinine Clr Calc Pharmacy 55.8; Estimated Glomerular Filt Rate 59; Total Protein 6.3 g/dL (6.5-8.0)
[2024-11-28 08:09] LABS: Anion Gap 8 (12-20); Carbon Dioxide 27 mmol/L (22-29); Chloride 112 mmol/L (96-108); Potassium 3.5 mmol/L (3.3-5.1); Sodium 143 mmol/L (135-145)
[2024-11-28] MEDS: 0.9 % Sodium Chloride Flush 3 ML SYRINGE IVFLUSH (09:10)
[2024-11-28] MEDS: Potassium Chloride ER 20 MEQ TAB.ER.PRT PO (09:10)
[2024-11-28] MEDS: Betamethasone Dip Aug 0.05% Cr 15 GM TUBE 1 APPL TOPICAL (09:10)
[2024-11-28 11:21] VITALS: BP 130/58; PULSE 59; RESP 18; TEMP 36.9; O2SAT 98
--- NOTE | 2024-11-28 12:32 | MHC.CM.PN ---
Patient has been medically cleared for dc to home today, self care.
--- NOTE | 2024-11-28 12:33 | P.DS_ITS ---
DS: Providers Provider Date of Service: 11/28/24 Date of admission: 11/26/24 14:47 Date of discharge: 11/28/24 Primary care physician: Gerald Vance MD DS: Diagnosis Discharge Diagnosis (1) COVID-19 virus infection: Status: Acute (2) Dermatomyositis: Status: Acute DS: Summary Hospital Course Hospital Course: admission hpi Chief Complaint: Shortness of breath This is a 69-year-old female who presents to the emergency department from her PCP office due to shortness of breath. Patient states for the past 4 days she has been having shortness of breath especially with ambulation. She has minimal associated cough. No fever, no chills. 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 The patient took a COVID-19 test yesterday and tested positive. She was seen by her PCP today and due to her shortness of breath she was sent to the emergency department for evaluation. In the emergenc y room her chest x-ray showed moderate right pleural effusion with atelectasis versus pneumonia. She was afebrile, had no hypoxia. Due to dyspnea she will be admitted overnight for observation. hospital course Paatient presented with shortness of breath and found ot have covid without hypoxia. No PNA on CXR. She was observed overnight and did not required any specific treatment and presently doing well, no hypoxia and will be dischare home. She's advised to use covid precaution and use mask in puplic Time Attestation Discharge Coordination Time (in mins): 45 Quality: Safe Use of Opioids Does Pt have an Active Cancer Diagnosis on the Problem List?: No Quality: Stroke Does the patient have a stroke diagnosis?: No Physical Exam Vital Signs: Vital Signs: Last Vital Signs Temp 98.5 F 11/28/24 11:21 Pulse 59 11/28/24 11:21 Resp 18 11/28/24 11:21 BP 130/58 L 11/28/24 11:21 Pulse Ox 98 11/28/24 11:21 O2 Del Method Room Air 11/28/24 11:21 BMI result Body Mass Index 28.8 DS: Data Data Completed and Pending Completed studies during hospitalization [Text1]: Procedures Excision of Descending Colon, Via Natural or Artificial Opening Endoscopic, Diagnostic (11/23/21) Transfusion of Nonautologous Red Blood Cells into Peripheral Vein, Percutaneous Approach (02/04/22) Labs on day of discharge: Laboratory Results - last 24 hr 11/28/24 07:05 WBC 1.2 L RBC 3.26 L Hgb 7.7 L Hct 26.2 L MCV 80.4 MCH 23.6 L MCHC 29.4 L RDW 18.5 H Plt Count 62 L MPV 9.9 Immature Gran % (Auto) 0.0 Neut % (Auto) 54.3 Lymph % (Auto) 24.6 Campbell % (Auto) 16.9 H Eos % (Auto) 3.4 Baso % (Auto) 0.8 Lymph # (Auto) 0.3 L Campbell # (Auto) 0.2 Eos # (Auto) 0.0 Baso # (Auto) 0.0 Abs Immat Gran (auto) 0.00 Absolute Neuts (auto) 0.6 L Absolute Nucleated RBC 0.000 Nucleated RBC % (auto) 0.0 Smear Tech's Comments VERIFIED Sodium 143 Potassium 3.5 Chloride 112 H Carbon Dioxide 27 Anion Gap 8 L BUN 14 Creatinine 0.94 Estim Creat Clear Calc 55.8 Estimated GFR 59 Fasting Glucose 96 Calcium 7.9 L Total Bilirubin 0.8 AST 25 ALT 6 Alkaline Phosphatase 70 Total Protein 6.3 L Albumin 2.9 L Discharge Plan Discharge Anticipated Discharge Date/Time: 11/28/24 12:20 Patient Disposition: Home, Self-Care Discharge Diagnosis: covid Referrals: Gerald Vance MD [Primary Care Provider, Internal Medicine] - 1 Week Discharge Medications: Continued clobetasol 0.05 % ointment 1 appl topical BID Qty: 60 3RF Rx Instructions: Do Not apply on face or sensitive areas such as your armpits, genitals or groin citalopram 20 mg Tablet 20 mg PO DAILY Qty: 30 1RF clonidine HCl 0.2 mg tablet 0.2 mg PO BEDTIME Qty: 90 1RF Jardiance 10 mg tablet 10 mg PO DAILY Qty: 30 5RF methocarbamol 750 mg tablet 1,500 mg PO Q8H PRN (Reason: pain, moderate) Qty: 20 0RF potassium chloride 20 mEq tablet extended release 20 meq PO BID furosemide 40 mg tablet 40 mg PO BID@0900,1400 alendronate 70 mg tablet 70 mg PO TU tacrolimus 0.1 % ointment 1 appl topical BID Qty: 60 2RF cetirizine 10 mg tablet 20 mg PO DAILY hydroxychloroquine 200 mg tablet 200 mg PO DAILY tamoxifen 20 mg tablet 20 mg PO DAILY mycophenolate mofetil 500 mg tablet 1,000 mg PO BID 90 Days Qty: 360 1RF tofacitinib 11 mg tablet extended release 24 hr 11 mg PO DAILY Qty: 30 5RF Discharge Orders: Discharge Order (Routine); Ordered 11/28/24 Ordered By: Juan José Conti Diet: Advance to usual diet Activity on Discharge: As tolerated Stand Alone Forms: Patient Portal Discharge page Print Language: Nicaraguan Care Plan Goals: recovery from covid Health Concerns: covid 19 Plan of Treatment: rest and continue your usual home medication, call 911 or come to emergency if you have trouble breathing take covid precaution, use ernesto in public for at least a week Assessment: see above
[2024-11-28] MEDS: Heparin Sodium,Porcine Flush 500 UNIT/5 ML SYRINGE IVFLUSH (13:17)
== END 2024-11-28 13:50 | disposition home or self-care (01) ==
LOC: HO.ED 14:15 → HO.EDOVER 14:48 → HO.IMC 19:16
PROVIDERS: Hospitalist; Physician Assistant Medical; Admitting Provider Physician Assistant Medical; Emergency Provider Emergency Medicine; PCP Internal Medicine; Visit Provider Internal Medicine
DX: U07.1 COVID-19 (principal); M33.90 Dermatopolymyositis, unspecified, organ involvement unspecified; I11.0 Hypertensive heart disease with heart failure; I50.30 Unspecified diastolic (congestive) heart failure; K74.60 Unspecified cirrhosis of liver; D61.818 Other pancytopenia; R07.9 Chest pain, unspecified; R06.02 Shortness of breath; J90 Pleural effusion, not elsewhere classified; J45.909 Unspecified asthma, uncomplicated; Z79.899 Other long term (current) drug therapy
CPT/HCPCS: 36415; 71046; 80048; 80053; 80076; 81001; 83735; 83880; 84484; 85025; 87502; 87635; 93005; 96374; 99222; 99285; J1642; J1938

== ENCOUNTER → 2024-11-26 12:02 | Outpatient (BNV) | payer MEDICARE, SELFPAY | PROVIDERS: Admitting Provider Physician Assistant Medical; Emergency Provider Emergency Medicine; PCP Internal Medicine; Visit Provider Internal Medicine | DX: R94.31 Abnormal electrocardiogram [ECG] [EKG] (principal); R06.02 Shortness of breath; R07.9 Chest pain, unspecified | CPT/HCPCS: 93010 ==

== ENCOUNTER → 2024-11-26 12:03 | Outpatient (BNV) | payer MEDICARE, SELFPAY | PROVIDERS: Emergency Provider Emergency Medicine; PCP Internal Medicine; Visit Provider Radiology Diagnostic Radiology | DX: R06.02 Shortness of breath (principal) | CPT/HCPCS: 71046 ==

== ENCOUNTER → 2024-11-26 14:47 | Outpatient (BNV) | payer MEDICARE, SELFPAY | PROVIDERS: Admitting Provider Physician Assistant Medical; Emergency Provider Emergency Medicine; PCP Internal Medicine; Visit Provider Physician Assistant Medical | DX: U07.1 COVID-19 (principal); M33.90 Dermatopolymyositis, unspecified, organ involvement unspecified | CPT/HCPCS: 99223; 99232; 99239 ==

== ENCOUNTER 2024-12-04 07:53 | Outpatient (AMB) | payer MEDICARE, SELFPAY ==
--- OUTSIDE RECORDS SUMMARY | 2024-12-04 07:57 | XMS_ITS | Clinical Summary ---
Author Organization [facility] Address [address] [place] [address] Phone Care Team Providers Care Forest Products Teacher Name Role Phone Unavailable Primary Care Provider Unavailabl e Encounters Date Type Department Care Team Description 11/03/2024 3:06 PM EDT - 11/03/2024 11:59 PM EDT Hospital Encounter [facility] PET Scan [address] [place] [address] History of right breast cancer [...] Signed Date: 11/04/2024 14:34 ET Workstation ID: [id number] Transcribed By: Self Edit Transcribed Date: 11/04/2024 [...] Signed Date: 11/04/2024 14:34 ET Workstation ID: [id number] Transcribed By: Self Edit Transcribed Date: 11/04/2024 14:27 ET Savannah Lind APN IMG NM PROCEDURES Final Re sult from Last 3 Months Insurance MEDICARE
--- OUTSIDE RECORDS SUMMARY | 2024-12-04 07:57 | XMS_ITS | Clinical Summary ---
Author Organization [facility] Address [address] [place] [id number] Phone Care Team Providers Care Water Pumping Station Engineer Name Role Phone Leslie Washington NP Primary Care Provider [phone] Allergies No known active allergies Medications DULoxetine [...] 1,000 mcg by mouth daily. Active vitamins A,C,I-kjvr-oigrlz (PRESERVISION AREDS) 14,320-226-200 azik-cm-dwtl Cap Take 1 capsule by mouth 2 [...] Health Maintenance [place] [address] HEALTH SAFETY NET PARTIAL MEDICARE RAILROAD [facility] MEDICARE [place] [address] HEALTH SAFETY NET PARTIAL MEDICARE RAILROAD [facility] MEDICARE SUPPLEMENT [facility] [place] [address] [facility] SAFETY NET PARTIAL MEDICARE RAILROAD [facility] MEDICARE SUPPLEMENT [facility] [place] [address] HEALTH SAFETY NET PARTIAL MEDICARE RAILROAD Member Subscriber Plan / Payer (Ef fective 2022-Present) Name:Kate Almaguer Member ID:[id number] Relation to Subscriber:Self Name:Kate Almaguer Subscriber ID:[id number] Payer ID:[id number] Group ID:Not on file Type:Medicare Address: [address] MEDICARE SUPPLEMENT HEALTH SAFETY NET PARTIAL [facility] [place] [phone] HEALTH SAFETY NET PARTIAL [facility]IC[facility] SUPPLEMENT Care Teams Water Pumping Station Engineer Relationship Specialty Start Date End Date Leslie Washington NP [address] [address] PCP - General 10/05/21 Additional Source Comments The information contained in this document represents components of the legal health record. It is not the complete legal health record.[facility]
--- NOTE | 2024-12-04 08:12 | A.OFFPC_ITS ---
Vital Signs 12/04/24 08:15 Height 5 ft 3 in Weight 155 lb BMI 27.5 BP 110/62 Blood Pressure Location Lt brachial Position Sitting Pulse 49 L Pulse Source Pulse Oximeter Temp 97.5 F Temp Source Temporal Artery Scan Pulse Oximetry (%) 99 Oxygen Delivery Method Room Air Intake Visit Reasons: tcm covid 11/28 discharge Intake Note: Patient is here for hospital discharge and TCM follow up. Patient was discharged from [facility] on 11/28/24. 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 He was admitted at [facility] on 11/26 - 11/28 for an evaluation of shortness of breath and he was found to have COVID-19 without Hypoxia. No PNA on CXR. Today she is complaining of productive cough but denies SOB, Wheezing, Fevers or chills. [facility] Medical History (Updated 12/04/24 @ 08:43 by Cynthia Kothari NP) Acute on chronic heart failure with preserved ejection fraction (HFpEF) Anemia Pancytopenia Encounter for monitoring rituximab therapy Long-term current use of intravenous immunoglobulin (IVIG) Plaquenil adverse reaction in therapeutic use Nocturnal cough Pleural effusion History of right breast cancer Axillary adenopathy Bacteremia due to Klebsiella pneumoniae SIRS (systemic inflammatory response syndrome) Acute hypokalemia UTI (urinary tract infection) Abdominal pain Atrial arrhythmia CHF (congestive heart failure) Acute diastolic (congestive) heart failure Diarrhea Pancolitis Colitis Nonsustained supraventricular tachycardia Port-A-Cath in place Pain in both feet Pedal edema History of COVID-19 Invasive ductal carcinoma of right breast Breast cancer, right Dermatomyositis Breast calcification, right Encounter to establish care Lumbar degenerative disc disease Hypertension Major depression, chronic Insomnia Anxiety Surgical History Hx of colonoscopy Status post right breast lumpectomy History of arthroscopic knee surgery History of hysterectomy History of section History of cholecystectomy History of gastric bypass History of fusion of cervical spine History of tonsillectomy Family History Mother No problems noted. Father Breast cancer Bone cancer Brother Substance use disorder Paternal Aunt Breast cancer Social History Household Members: Spouse and Children Housing: House Are you a primary day care director to a significant other at home: No Do you presently have visiting nurse or other home services: Yes ([facility]) Alcohol intake: former Comment: Pedal Edema and pain- uses cane Patient Tobacco Use Status: Former Tobacco user Tobacco use type: Cigarette e-Cigarette/Vaping Use: Never Used Second Hand Smoke Exposure: Yes Advance Directives Date on File: 11/28/21 service: No Current occupational status: unemployed and retired Cognitive needs: No Hearing needs: No Vision needs: Yes (glasses) Female Reproductive History Menstrual Age of Menarche: 17 Questionnaire Thrive Questionnaire Date Thrive assessed: 11/27/24 AUDIT C Alcohol Use Questionnaire (AUDIT-C) 1. How often do you have a drink containing alcohol?: Never 3. How often do you have six or more drinks on one occasion?: Never Total Score: 0 GATO-7 AMB Questionnaire GATO-7 Date GATO - 7 assessed: 12/04/24 Feeling nervous, anxious, or on edge: 0 = Not at all Not being able to stop or control worryin = Not at all Worrying too much about different things: 0 = Not at all Trouble relaxin = Not at all Being so restless that it is hard to sit still: 0 = Not at all Becoming easily annoyed or irritable: 0 = Not at all Feeling afraid as if something awful might happen: 0 = Not at all Total GATO-7 score (0-4 normal; 5-9 mild; 10-14 moderate; 15-21 severe): 0 Source: Developed by Drs. Billy Delarosa, Keara Painter, Navdeep Vargas and colleagues, with an educational julissa from [employer]. Review of Systems Const All systems reviewed & are unremarkable except as noted in HPI and below Physical exam (Primary Care) Vital Signs: Last Vital Signs Temp 97.5 F 12/04/24 08:15 Pulse 49 L 12/04/24 08:15 BP 110/62 12/04/24 08:15 Pulse Ox 99 12/04/24 08:15 Oxygen Delivery Method Room Air 12/04/24 08:15 BMI result Body Mass Index 27.5 Tobacco/Smoking Status: Tobacco use Status Tobacco use date assessed 12/04/24 12/04/24 08:20 Patient Tobacco Use Status Former Tobacco user 12/04/24 08:13 Tobacco use type Cigarette 12/04/24 08:13 e-Cigarette/Vaping Use Never Used 12/04/24 08:13 Thrive Assessment: Date of Thrive Assessment Date Thrive assessed 11/27/24 12/04/24 08:13 Const General: no acute distress Nutritional Appearance: well nourished Orientation/consciousness: patient oriented x3 Resp Effort & Inspection: normal respiratory effort and Actively coughing Quality: actively coughing Auscultation: clear to auscultation bilaterally, no crackles, no rales, no rhonchi and no wheezes Cardio Heart sounds: S1 normal heart sound present and S2 normal heart sound present Neuro General: patient oriented x3, gait normal and moves all extremities Psych Speech and movement: Normal speech and movement present Coding Level of Care Code Est Pt Level 4 (75107) Diagnoses COVID-19 virus infection U07.1 Acute on chronic congestive heart failure, unspecified heart failure type I50.9 Heart failure type: unspecified Time Spent (min) 20 Assessment & Plan Assessment & Plan (1) COVID-19 virus infection: Code(s): U07.1 - COVID-19 Category: Medical Plan: Resolved. (2) Acute exacerbation of CHF (congestive heart failure): Code(s): I50.9 - Heart failure, unspecified Category: Medical Qualifiers: Heart failure type: unspecified Qualified Code(s): I50.9 - Heart failure, unspecified Plan: Stable. Managed by Cardiology. Medications: New benzonatate 200 mg (2 x 100 mg) PO BID 60 caps 0RF R05.9 - Cough, unspecified dextromethorphan-guaifenesin 5-100 mg/5 mL (Robitussin Cough-Chest Congestion DM) 10 mL PO Q4-8H PRN 500 mL 0RF cough R05.9 - Cough, unspecified
[2024-12-04 08:15] VITALS: BP 110/62; PULSE 49; TEMP 36.4; O2SAT 99; BMI 27.5
== END 2024-12-04 08:29 | disposition home or self-care (01) ==
LOC: HO.HMCH 07:53
PROVIDERS: PCP Internal Medicine; Visit Provider Nurse Practitioner Family
DX: U07.1 COVID-19 (principal); I50.9 Heart failure, unspecified

== ENCOUNTER → 2024-12-04 07:53 | Outpatient (BNVA) | payer MEDICARE, SELFPAY | PROVIDERS: PCP Internal Medicine; Visit Provider Nurse Practitioner Family | DX: U07.1 COVID-19 (principal); I50.9 Heart failure, unspecified | CPT/HCPCS: 96127; 99212 ==

== ENCOUNTER 2024-12-11 11:37 | Outpatient (AMB) | payer MEDICARE, OTHER, SELFPAY ==
--- NOTE | 2024-12-11 11:42 | A.OFFVIS_ITS ---
Vital Signs 12/11/24 11:45 Height 5 ft 3 in Weight 160 lb 14.999 oz BMI 28.5 BP 134/70 Blood Pressure Location Lt brachial Position Sitting Pulse 62 Pulse Source Pulse Oximeter Pulse Oximetry (%) 99 Oxygen Delivery Method Room Air Intake Visit Reasons: 2 month follow up Intake Note: Patient presents for Dermatomyositis follow up. Allergies No Known Allergies Allergy (Verified 12/11/24 11:45) Medication List - Last Reconciled 12/11/24 by Kasandra Pinto MD alendronate 70 mg PO TU benzonatate 200 mg (2 x 100 mg) PO BID cetirizine 20 mg PO DAILY citalopram 20 mg PO DAILY clobetasol 0.05% 1 appl topical BID clonidine HCl 0.2 mg PO BEDTIME dextromethorphan-guaifenesin 5-100 mg/5 mL (Robitussin Cough-Chest Congestion DM) 10 mL PO Q4-8H PRN empagliflozin (Jardiance) 10 mg PO DAILY furosemide 40 mg PO BID@0900,1400 hydroxychloroquine 200 mg PO DAILY methocarbamol 1,500 mg (2 x 750 mg) PO Q8H PRN mycophenolate mofetil 1,000 mg (2 x 500 mg) PO BID 90 days potassium chloride ER 20 mEq PO BID tacrolimus 0.1% 1 appl topical BID tamoxifen 20 mg PO DAILY tofacitinib ER 11 mg PO DAILY HPI Comments Details: Patient is a 69-year-old female with heart failure with preserved ejection fraction, chronic major depression, hypertension, anxiety, breast cancer currently in remission, TIF 1 gamma refractory dermatomyositis here today for follow up Interval History: Patient last seen 10/08/24 with me - On medrol, IVIG 2g/kg and MMF 1000mg bid - Still having dermatomyositis rash - New worsening muscle weakness - Added MMF after discussion with derm Since then - COVID infection requiring short hospital stay - normal CK and Aldolase Today, - On medrol, IVIG 2g/kg and MMF 1000mg bid - Dry cough and then in the AM will have a productive cough - Completed medrol - Joint pain and rash persists Rheumatologic History: Patient with Tif 1 gamma positive antibody dermatomyositis Found to have breast cancer in 2021. Patient last seen 12/04/2023. At that time she had started PT, had gone to 3 sessions, but stating that her muscle weakness is about the same. Receiving IVIG 2 grams/kilogram every 4 weeks. Azathioprine was recently discontinued She was started on hydroxychloroquine at that visit Skin biopsy 07/2021 interface dermatitis, +++TIF gamma Ab Dr Krishna 08/10/2021 prednisone started. azathioprine added OSIRIS 1:80, CPK 991, marked proximal muscle weakness, CLARK neg, anti-SRP negative; aldolase WNL Associated breast cancer found 11/2021: Azathioprine stopped due to chemoRx 11/2021: flare of skin rash with taper of prednisone to 30mg 12/2021: monthly IV IVIG started 02/2022: prednisone stopped. Aza restarted. DC in 2023 due to pancytopenia 11/2023: Hydroxychloroquine started - DC 01/2024 due to worsening rash 02/2024: Worsening dermatomyositis with rash and muscle weakness Repeat PET Scan without evidence of recurrent cancer 03/2024 Attempted to get tofacitinib approved but this was denied by insurance 03/2024: Rituxumab 2000mg every 6 months IV Current Rheumatology Medication(s): IVIG 2g/kg every month MMF 1000mg bid COUNTS INCLUDE 234 BEDS AT [facility] Medical History (Updated 12/11/24 @ 13:52 by Kasandra Pinto MD) Dermatomyositis Acute on chronic heart failure with preserved ejection fraction (HFpEF) Anemia Pancytopenia Long-term current use of intravenous immunoglobulin (IVIG) Plaquenil adverse reaction in therapeutic use Nocturnal cough Pleural effusion History of right breast cancer Axillary adenopathy Bacteremia due to Klebsiella pneumoniae SIRS (systemic inflammatory response syndrome) Acute hypokalemia UTI (urinary tract infection) Abdominal pain Atrial arrhythmia CHF (congestive heart failure) Acute diastolic (congestive) heart failure Diarrhea Pancolitis Colitis Nonsustained supraventricular tachycardia Port-A-Cath in place Pain in both feet Pedal edema History of COVID-19 Invasive ductal carcinoma of right breast Breast cancer, right Breast calcification, right Encounter to establish care Lumbar degenerative disc disease Hypertension Major depression, chronic Insomnia Anxiety Surgical History Hx of colonoscopy Status post right breast lumpectomy History of arthroscopic knee surgery History of hysterectomy History of section History of cholecystectomy History of gastric bypass History of fusion of cervical spine History of tonsillectomy Family History Mother No problems noted. Father Breast cancer Bone cancer Brother Substance use disorder Paternal Aunt Breast cancer Social History Household Members: Spouse and Children Housing: House Are you a primary care specialist to a significant other at home: No Do you presently have visiting nurse or other home services: Yes ([facility]) Alcohol intake: former Comment: Pedal Edema and pain- uses cane Patient Tobacco Use Status: Former Tobacco user Tobacco use type: Cigarette e-Cigarette/Vaping Use: Never Used Second Hand Smoke Exposure: Yes Advance Directives Date on File: 11/28/21 service: No Current occupational status: unemployed and retired Cognitive needs: No Hearing needs: No Vision needs: Yes (glasses) Female Reproductive History Menstrual Age of Menarche: 17 Review of Systems Const Details: Review of Systems Constitutional: Denies fever, chills, weight loss ENT: Denies vision changes, eye pain or eye redness, dental caries, dry mouth GI: Denies nausea, vomiting, diarrhea, abdominal pain, change in BM Pulm: Denies SOB, SUMNER, hemoptysis, wheezing Cards: Denies chest pain, palpitations Skin: Denies Raynaud's, nail changes, photosensitivity, 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 Well appearing and in no apparent painful distress MSK Hands * Right Hand: Able to make a fist. TTP of the MCPs * Left Hand: Able to make a fist. TTP of the MCPs. Wrists * Right Wrist: Full ROM. 70 degrees of wrist flexion, 80 degrees of wrist extension. TTP * Left Wrist: Full ROM. 70 degrees of wrist flexion, 80 degrees of wrist extension. TTP Elbows * Right Elbow: Full ROM. No swelling or TTP. No TTP of the medial and lateral epicondyles * Left Elbow: Full ROM. No swelling or TTP. No TTP of the medial and lateral epicondyles Shoulders * Right shoulder: Full ROM. No swelling noted. No TTP of the AC joint, subacromial bursa or posterior shoulder * Left shoulder: Full ROM. No swelling noted. No TTP of the AC joint, suba cromial bursa or posterior shoulder Knees * Right knee: Full ROM. No swelling noted. No TTP of the knee joint lie or pes anserine bursa * Left knee: Full ROM. No swelling noted. No TTP of the knee joint lie or pes anserine bursa. * Crepitations felt bilaterally Ankles * Right ankle: Good ankle dorsiflexion and plantar flexion. No swelling. No TTP of the ankle joint * Left ankle: Good ankle dorsiflexion and plantar flexion. No swelling. No TTP of the ankle joint Feet * Right foot: Negative squeeze test * Left foot: Negative squeeze test Tender points? * No tenderness to palpation of the bilateral trapezius, supraspinatus, anterior costochondral junctions, bilateral suboccipital muscle insertions SKIN Gouttron's papules Improved rash on her back and upper chest erythema to face Still having scaling to her scalp Right Left Neck 5 Senior Principal Architect strength 5 5 Wrist flexion 5 5 Wrist extension 5 5 Elbow extension 5 5 Elbow flexion 5 5 Shoulder abduction 4 5 Shoulder adduction 4 5 Hip flexion 5 5 Knee extension 5 5 Knee flexion 4 4 Ankle dorsiflexion 5 5 Ankle plantar flexion 5 5 Vital Signs: Last Vital Signs Pulse 62 12/11/24 11:45 BP 134/70 12/11/24 11:45 Pulse Ox 99 12/11/24 11:45 Oxygen Delivery Method Room Air 12/11/24 11:45 BMI result Body Mass Index 28.5 Results Reviewed Results Reviewed: Laboratory Tests 11/18/24 11/28/24 08:04 07:05 WBC 1.2 L RBC 3.26 L Hgb 7.7 L Hct 26.2 L Plt Count 62 L ESR 8 Sodium 143 Potassium 3.5 Chloride 112 H Carbon Dioxide 27 BUN 14 Creatinine 0.94 Calcium 7.9 L AST 25 ALT 6 Total Creatine Kinase 38 C-Reactive Protein < 0.10 Assessment & Plan Assessment & Plan (1) Lupus (systemic lupus erythematosus): Code(s): M32.9 - Systemic lupus erythematosus, unspecified Qualifiers: Systemic lupus erythematosus type: other Systemic lupus erythematosus organ involvement: unspecified Qualified Code(s): M32.8 - Other forms of systemic lupus erythematosus Plan: #Lupus Patient is a 69-year-old female with known myositis now with inflammatory arthritis type symptoms and previous rash including a malar type rash. It is possible that she may have an overlap syndrome lupus as well as myositis. Ideally would like to put her on methotrexate for her joint symptoms and the rash however given her pancytopenia methotrexate is contraindicated. Has tried and failed Plaquenil, azathioprine and other agents in the past. Given that her predominant complaint is her skin I think she would be a good candidate for anifrolumab Plan - Start Anifrolumab infusions 300mg every 4 weeks (2) Dermatomyositis: Comment: on skin biopsy 07/2021 +++TIF gamma Ab- Dr Krishna 08/10/2021 prednisone started. azathioprine added OSIRIS 1:80, CPK 991, marked proximal muscle weakness, CLARK neg, anti-SRP negative; aldolase WNL Associated breast cancer found 11/2021: Azathioprine stopped due to chemoRx 11/2021: flare of skin rash with taper of prednisone to 30mg 12/2021: monthly IV IVIG started 02/2022: prednisone stopped. Aza restarted. DC in 2023 due to pancytopenia Hydroxychloroquine started 11/2023, DC 01/2024 due to worsening rash 03/2024: Rituxumab started Code(s): M33.90 - Dermatopolymyositis, unspecified, organ involvement unspecified Category: Medical Plan: #Dermatomyositis Patient is a 69-year-old female with dermatomyositis. Current disease is characterized by significant rash. Her muscle weakness has stabilized. Discussed the case with her raiser helper and there is an element of lupus rash as well as dermatomyositis rash based on the interferon signature of both these diseases. And since she is also having inflammatory joint symptoms we discussed that anifrolumab which has been shown to be ggreat for lupus type rashes would be a good choice since we can not do methotrexate due to the pancytopenia, can not do Plaquenil due to the history of rash on Plaquenil and ineffectiveness of azathioprine Plan - Continue IVIG 2g/kg every 4 weeks - Continue MMF 1000mg bid - Close follow up every 2 months - Labs before next visit: Labs before visit: CBC, CMP, ESR, CRP, C3, C4, dsDNA, CK, Aldolase (3) Osteopenia: Comment: DEXA 07/2021: AP Spine 0.1, Left femur neck -2.1, Left femur total -2.0. FRAX 25.7/2.11 September 2021: Alendronate started because of need for high-dose prednisone Code(s): M85.80 - Other specified disorders of bone density and structure, unspecified site Category: Medical Qualifiers: Osteopenia location: multiple sites Qualified Code(s): M85.89 - Other specified disorders of bone density and structure, multiple sites Plan: #Osteopenia Patient on alendronate since 2021. We will check repeat bone density. This has been ordered by her oncologist, we will follow up (4) Pancytopenia: Code(s): D61.818 - Other pancytopenia Category: Medical Plan: #Pancytopenia Unsure of the underlying cause, this could be in the setting of her dermatomyositis versus lupus versus bone marrow suppression. Follow up with Hematology (5) Encounter for rn long term care use of mycophenolate mofetil: Code(s): Z79.624 - emt intermediate (current) use of inhibitors of nucleotide synthesis Plan: #Long-term Use of Mycophenolate/Mycophenolic Acid Discussed with patient the benefits and risks of mycophenolate/mycophenolic acid for the management of the rheumatic condition Benefits include improved disease control and reduction of mortality Risks include GI upset especially diarrhea, anemia, leukopenia, hepatotoxicity, lymphoproliferative malignancies, PML Mycophenolate and mycophenolic acid are teratogenic and should be avoided in patients who are desiring the Monitoring: CBC, LFTs, BMP Recommended holding medication during and for up to 1 week after resolution of a febrile illness (6) Long-term current use of intravenous immunoglobulin (IVIG): Code(s): Z79.899 - Other rn long term care (current) drug therapy Category: Medical Plan: #Long-term use of IVIG Discussed with this patient the risks and benefits of IVIG use to the management of the rheumatic condition Benefits include improved disease control and maintenance of remission Risks include anaphylaxis, blood clots, transfusion related acute lung injury, hemolytic reaction, fluid overload, heart problems #Long-term use Anifrolumab Discussed with patient the risks and benefits of hydroxychloroquine in managing the rheumatic condition Benefits include: - Reduced pain, reduce mortality, maintenance of remission and reduction of flares Risks include: - Increased susceptibility to serious infections particularly viral infections like herpes zoster (shingles), respiratory tract infections and infusion related reactions Plan I spent 48 minutes reviewing the record and labs, taking a history, examining the patient, discussing the treatment plan, ordering diagnostic work up, Infusion paperwork and documenting in the medical record Orders: Orders Comprehensive Met. Panel 2 Months M32.9 - Systemic lupus erythematosus, unspecified, M33.90 - Dermatopolymyositis, unspecified, organ involvement unspecified Complement C4 2 Months M32. - Systemic lupus erythematosus, unspecified, M33.90 - Dermatopolymyositis, unspecified, organ involvement unspecified Anti DNA DS Antibody 2 Months M32.9 - Systemic lupus erythematosus, unspecified, M33.90 - Dermatopolymyositis, unspecified, organ involvement unspecified Complete Blood Count Auto Diff 2 Months M32.9 - Systemic lupus erythematosus, unspecified, M33.90 - Dermatopolymyositis, unspecified, organ involvement unspecified C Reactive Protein 2 Months M32.9 - Systemic lupus erythematosus, unspecified, M33.90 - Dermatopolymyositis, unspecified, organ involvement unspecified Erythrocyte Sedimentation Rate 2 Months M32.9 - Systemic lupus erythematosus, unspecified, M33.90 - Dermatopolymyositis, unspecified, organ involvement unspecified Complement C3 2 Months M32.9 - Systemic lupus erythematosus, unspecified, M33.90 - Dermatopolymyositis, unspecified, organ involvement unspecified CK, Total+Isoenzymes, Serum 2 Months M33.90 - Dermatopolymyositis, unspecified, organ involvement unspecified Aldolase 2 Months M33.90 - Dermatopolymyositis, unspecified, organ involvement unspecified Referrals Infusion Center Notification M33.90 - Dermatopolymyositis, unspecified, organ involvement unspecified Infusion Center Notification M32.8 - Other forms of systemic lupus erythematosus Medications: Discontinued benzonatate Discontinued Reason: Patient no longer taking 200 mg (2 x 100 mg) PO BID 60 caps 0RF R05.9 - Cough, unspecified dextromethorphan-guaifenesin 5-100 mg/5 mL (Robitussin Cough-Chest Congestion DM) Discontinued Reason: Patient no longer taking 10 mL PO Q4-8H PRN 500 mL 0RF cough R05.9 - Cough, unspecified On Hold tofacitinib ER Hold Comment: Doctor's Order 11 mg PO DAILY 30 tabs 5RF M06.00 - Rheumatoid arthritis without rheumatoid factor, unspecified site Coding Level of Care Code Est Pt Level 5 (58750) Complex EM visit Add On G2211 Diagnoses Other forms of systemic lupus erythematosus, unspecified organ involvement status M32.8 Systemic lupus erythematosus type: other Systemic lupus erythematosus organ involvement: unspecified Dermatomyositis M33.90 Osteopenia of multiple sites M85.89 Osteopenia location: multiple sites Pancytopenia D61.818 Encounter for [facility] use of mycophenolate mofetil Z79.624 Long-term current use of intravenous immunoglobulin (IVIG) Z79.899
[2024-12-11 11:45] VITALS: BP 134/70; PULSE 62; O2SAT 99; BMI 28.5
--- OUTSIDE RECORDS SUMMARY | 2024-12-11 12:48 | XMS_ITS | Clinical Summary ---
Author Organization [facility] Address [address] [place] [id number] Phone Care Team Providers Care Frozen Foods Manager Name Role Phone Leslie Washington NP Primary Care Provider [phone] Allergies No known active allergies Medications DULoxetine [...] 1,000 mcg by mouth daily. Active vitamins A,C,Q-fazu-jjuypq (PRESERVISION AREDS) [id number] logg-px-ydjn Cap Take 1 capsule by mouth 2 [...] Health Maintenance [place] [address] HEALTH SAFETY NET PARTIAL MEDICARE RAILROAD [facility] MEDICARE SUPPLEMENT [facility] Address: [facility] CLAIMS DIVISION [address] [facility] [place] [address] [place] [address] HEALTH SAFETY NET PARTIAL MEDICARE RAILROAD [facility] MEDICARE SUPPLEMENT [facility] Address: [facility] CLAIMS DIVISION [address] [place] [address] [facility] [place] [address] [facility] S[facility]ETY NET PARTIAL MEDICARE RAILROAD [facility] MEDICARE SUPPLEMENT [facility] [place] [address] HEALTH SAFETY NET PARTIAL MEDICARE RAILROAD Member Subscriber Plan / Payer (Ef fective 2022-Present) Name:Kate Almaguer Member ID:[id number] Relation to Subscriber:Self Name:Kate Almaguer Subscriber ID:[id number] Payer ID:[id number] Group ID:Not on file Type:Medicare Address: [address] MEDICARE SUPPLEMENT HEALTH SAFETY NET PARTIAL MEDICARE [facility] MEDICARE SUPPLEMENT [facility] Address: [facility] CLAIMS DIVISION [address] [place] [address] [place] [address] HEALTH SAFETY NET PARTIAL MEDICARE [facility] MEDICARE SUPPLEMENT Care Teams Frozen Foods Manager Relationship Specialty Start Date End Date Leslie Washington NP [address] [address] PCP - General 10/05/21 Additional Source Comments The information contained in this document represents components of the legal health record. It is not the complete legal health record.[facility]
--- OUTSIDE RECORDS SUMMARY | 2024-12-11 12:48 | XMS_ITS | Clinical Summary ---
Author Organization [facility] Address [address] [place] [address] Phone Care Team Providers Care Logistics Officer Name Role Phone Unavailable Primary Care Provider Unavailabl e Encounters Date Type Department Care Team Description 11/03/2024 3:06 PM EDT - 11/03/2024 11:59 PM EDT Hospital Encounter [facility] PET Scan [address] [place] [address] History of right breast cancer [...] Signed Date: 11/04/2024 14:34 ET Workstation ID: [id number] Transcribed By: Self Edit Transcribed Date: 11/04/2024 [...] Signed Date: 11/04/2024 14:34 ET Workstation ID: [id number] Transcribed By: Self Edit Transcribed Date: 11/04/2024 14:27 ET Savannah Lind APN IMG NM PROCEDURES Final Re sult from Last 3 Months Insurance MEDICARE
== END 2024-12-11 12:30 | disposition home or self-care (01) ==
LOC: HO.RHES 11:38
PROVIDERS: PCP Internal Medicine; Visit Provider Student in an Organized Health Care Education/Training Program
DX: M32.8 Other forms of systemic lupus erythematosus (principal); M33.90 Dermatopolymyositis, unspecified, organ involvement unspecified; D61.818 Other pancytopenia; M85.89 Other specified disorders of bone density and structure, multiple sites; Z79.624 Long term (current) use of inhibitors of nucleotide synthesis; Z79.899 Other long term (current) drug therapy
CPT/HCPCS: 99215; G2211

== ENCOUNTER → 2024-12-11 11:37 | Outpatient (BNVA) | payer MEDICARE, SELFPAY | PROVIDERS: PCP Internal Medicine; Visit Provider Student in an Organized Health Care Education/Training Program | DX: M32.8 Other forms of systemic lupus erythematosus (principal); M33.90 Dermatopolymyositis, unspecified, organ involvement unspecified; M85.89 Other specified disorders of bone density and structure, multiple sites; D61.818 Other pancytopenia; Z79.624 Long term (current) use of inhibitors of nucleotide synthesis; Z79.899 Other long term (current) drug therapy | CPT/HCPCS: 99212 ==

== ENCOUNTER 2024-12-16 10:28 | Emergency (ER) | payer MEDICARE, SELFPAY ==
[2024-12-16 10:42] VITALS: BP 103/38; PULSE 48; RESP 16; TEMP 37; O2SAT 98; BMI 29.3
--- NOTE | 2024-12-16 11:10 | ED.RECABL ---
HPI - Recheck/Abnormal Lab/Rx General Chief Complaint: Recheck/Abnormal Lab/Rx Stated Complaint: abnormal labs Time Seen by Provider: 12/16/24 11:08 Source: patient Mode of arrival: ambulatory Limitations: no limitations History of Present Illness ED Provider: Dr. Augie Rich HPI narrative: 69-year-old female with a history of dermatomyositis treated with IVIG, HFpEF, hypokalemia, pancytopenia, depression, right breast CA (11/16/2021-treated with chemotherapy and lumpectomy) who presents emergency department for evaluation of low potassium. The patient was at the infusion center getting her IV IG and her potassium was noted to be 2.7. She was referred to the emergency department for further treatment. She states that this has a common occurrence for her and believes that it may be related to her furosemide treatment. She states she usually gets IV potassium and oral potassium until her potassium as above 3. She states that she has generalized weakness but this has not new otherwise she is asymptomatic. Patient's left chest Port-A-Cath was accessed by the infusion center. The patient is also to get an effusion tomorrow and the patient is requesting that her Port-A-Cath be treated with heparin flush at the end of her treatment course today what is the dose of heparin flush for a Port-A-Cath. Related Data Home Medications ?Medication ?Instructions ?Recorded ?Confirmed cetirizine 10 mg tablet 20 mg PO DAILY 09/09/24 12/11/24 tamoxifen 20 mg tablet 20 mg PO DAILY 09/09/24 12/11/24 alendronate 70 mg tablet 70 mg PO TU 11/26/24 12/11/24 furosemide 40 mg tablet 40 mg PO BID@0900,1400 11/26/24 12/11/24 potassium chloride 20 mEq 20 meq PO BID 11/26/24 12/11/24 tablet,extended release Previous Rx's ?Medication ?Instructions ?Recorded tacrolimus 0.1 % topical ointment 1 appl topical BID #60 grams 02/27/24 clobetasol 0.05 % topical ointment 1 appl topical BID #60 grams 03/05/24 methocarbamol 750 mg tablet 1,500 mg (2 x 750 mg) PO Q8H PRN 06/21/24 pain, moderate #20 tabs citalopram 20 mg tablet 20 mg PO DAILY #30 tabs 07/13/24 clonidine HCl 0.2 mg tablet 0.2 mg PO BEDTIME for anxiety #90 07/14/24 tabs mycophenolate mofetil 500 mg tablet 1,000 mg (2 x 500 mg) PO BID 90 07/30/24 days #360 tabs empagliflozin 10 mg tablet 10 mg PO DAILY #30 tabs 08/18/24 (Jardiance) tofacitinib 11 mg tablet,extended 11 mg PO DAILY #30 tabs 10/08/24 release 24 hr Held on 12/11/24. Instructions: Doctor's Order Allergies Allergy/AdvReac Type Severity Reaction Status Date / Time No Known Allergies Allergy Verified 12/16/24 10:43 Review of Systems Review of Systems: Yes all other systems are reviewed and are negative [facility] Past Medical History Medical History (Updated 12/16/24 @ 15:47 by Augie Rich MD) Dermatomyositis Acute on chronic heart failure with preserved ejection fraction (HFpEF) Anemia Pancytopenia Long-term current use of intravenous immunoglobulin (IVIG) Plaquenil adverse reaction in therapeutic use Nocturnal cough Pleural effusion History of right breast cancer Axillary adenopathy Bacteremia due to Klebsiella pneumoniae SIRS (systemic inflammatory response syndrome) Acute hypokalemia UTI (urinary tract infection) Abdominal pain Atrial arrhythmia CHF (congestive heart failure) Acute diastolic (congestive) heart failure Diarrhea Pancolitis Colitis Nonsustained supraventricular tachycardia Port-A-Cath in place Pain in both feet Pedal edema History of COVID-19 Invasive ductal carcinoma of right breast Breast cancer, right Breast calcification, right Encounter to establish care Lumbar degenerative disc disease Hypertension Major depression, chronic Insomnia Anxiety Surgical History Hx of colonoscopy Status post right breast lumpectomy History of arthroscopic knee surgery History of hysterectomy History of section History of cholecystectomy History of gastric bypass History of fusion of cervical spine History of tonsillectomy Family History Family History Mother No problems noted. Father Breast cancer Bone cancer Brother Substance use disorder Paternal Aunt Breast cancer Social History Social History Household Members: Spouse and Children Housing: House Are you a primary group care worker to a significant other at home: No Do you presently have visiting nurse or other home services: Yes ([facility]NA) Alcohol intake: former Comment: Pedal Edema and pain- uses cane Patient Tobacco Use Status: Former Tobacco user Tobacco use type: Cigarette e-Cigarette/Vaping Use: Never Used Second Hand Smoke Exposure: Yes Advance Directives: Yes Advance Directives on File: Yes Advance Directives Date on File: 11/28/21 service: No Current occupational status: unemployed and retired Cognitive needs: No Hearing needs: No Vision needs: Yes (glasses) Physical Exam Vital Signs: Vital Signs: Last Vital Signs Temp 98.6 F 12/16/24 10:42 Pulse 51 12/16/24 14:08 Resp 14 12/16/24 14:08 BP 125/38 L 12/16/24 14:08 Pulse Ox 100 12/16/24 14:08 O2 Del Method Room Air 12/16/24 14:08 BMI result Body Mass Index 29.3 Exam: General: Awake, alert in no distress Head: Normocephalic, atraumatic EENT: PERRL, sclera and conjunctiva are normal, mouth with no erythema or exudates Neck: Supple, no adenopathy Lung: breath sounds symmetric, no wheezing, no rales and no rhonchi Chest: symmetric movement, nontender, left chest Port-A-Cath accessed Heart: regular rate and rhythm, normal S1, S2 no murmurs or rubs Abdomen: soft, non-tender, nondistended, normal bowel sounds Back: no vertebral tenderness, no CVAT Extremities: no deformities, moves all extremities symmetrically, no edema Neuro: Awake, alert, oriented, normal speech, cranial nerves 2-12 intact, moves all extremities symmetrically Psych: Pleasant, cooperative Medications Administered Discontinued Medications Generic Name Dose Route Start Last Admin Trade Name Freq PRN Reason Stop Dose Admin Heparin Sodium (Porcine) 500 unit 12/16/24 11:49 12/16/24 14:43 Heparin Sodium,Porcine Flush 500 Unit/5 Ml Syringe IVFLUSH 12/16/24 11:50 500 unit ONCE ONE Administration Potassium Chloride 20 meq in 100 mls @ 100 mls/hr 12/16/24 12:00 12/16/24 14:32 Potassium Chloride/H20 IV 12/16/24 13:59 Infused Q1H CHELSIE Infusion Potassium Chloride 40 meq 12/16/24 11:45 12/16/24 13:16 Potassium Chloride Packet 20 Meq Packet PO 12/16/24 12:46 40 meq Q1H CHELSIE Administration Medical Decision Making Medical Decision Making [facility] Narrative: 69-year-old female with a history of dermatomyositis treated with IVIG, HFpEF, hypokalemia, pancytopenia, depression, right breast CA (11/16/2021-treated with chemotherapy and lumpectomy) who presents emergency department for evaluation of low potassium. The patient was at the infusion center getting her IV IG and her potassium was noted to be 2.7. She was referred to the emergency department for further treatment. She states that this has a common occurrence for her and believes that it may be related to her furosemide treatment. She states she usually gets IV potassium and oral potassium until her potassium as above 3. She states that she has generalized weakness but this has not new otherwise she is asymptomatic. Patient's left chest Port-A-Cath was accessed by the infusion center. The patient is also to get an effusion tomorrow and the patient is requesting that her Port-A-Cath be treated with heparin flush at the end of her treatment course today what is the dose of heparin flush for a Port-A-Cath. Vital signs were normal. Physical exam was unremarkable. Differential diagnosis: ?Includes but is not limited to diuretic induced hypokalemia, idiopathic hypokalemia Course: 11:49 I ordered potassium chloride 20 mEq IV Q 1 hour x2 and potassium chloride 40 mEq orally Q 1 hour x2. Plan will be to repeat her potassium after she completes this regimen. 15:44 Patient's repeat potassium after the above treatment was 4.8. The patient's Port-A-Cath was flushed with heparin flush 500 units x1. Patient was discharged home with the Port-A-Cath in place. Differential Diagnosis Differential Diagnoses: The differential diagnosis associated with the presentation includes (See above) Admission/Observation Consideration of admission/observation: Escalation of care including admission/observation considered (Yes) Lab Data 12/16/24 14:46 Labs: Lab Results 12/16/24 Range/Units 14:46 Potassium 4.8 D (3.3-5.1) mmol/L Discharge Plan Discharge Clinical Impression: Acute hypokalemia Patient Disposition: Home, Self-Care Additional Instructions: You were treated today with potassium chloride 20 mEq IV x2 and potassium chloride 40 mEq orally x2. Your starting potassium was 2.7 in your repeat potassium was 4.8. Your Port-A-Cath was flushed with heparin flush 500 units. Continue taking medications as prescribed by your providers. Follow-up with your doctor in 2 days. Please return to the emergency department if your symptoms get worse or if you develop any symptoms that are concerning to you. Prescriptions: No Action clobetasol 0.05 % ointment 1 appl topical BID Qty: 60 3RF Rx Instructions: Do Not apply on face or sensitive areas such as your armpits, genitals or groin citalopram 20 mg Tablet 20 mg PO DAILY Qty: 30 1RF clonidine HCl 0.2 mg tablet 0.2 mg PO BEDTIME Qty: 90 1RF Jardiance 10 mg tablet 10 mg PO DAILY Qty: 30 5RF methocarbamol 750 mg tablet 1,500 mg PO Q8H PRN (Reason: pain, moderate) Qty: 20 0RF potassium chloride 20 mEq tablet extended release 20 meq PO BID furosemide 40 mg tablet 40 mg PO BID@0900,1400 alendronate 70 mg tablet 70 mg PO TU tacrolimus 0.1 % ointment 1 appl topical BID Qty: 60 2RF cetirizine 10 mg tablet 20 mg PO DAILY tamoxifen 20 mg tablet 20 mg PO DAILY mycophenolate mofetil 500 mg tablet 1,000 mg PO BID 90 Days Qty: 360 1RF tofacitinib 11 mg tablet extended release 24 hr 11 mg PO DAILY Qty: 30 5RF Print Language: Yemeni
[2024-12-16] MEDS: Potassium Chloride Packet 20 MEQ PACKET 40 MEQ PO ×2 (11:49→13:16)
[2024-12-16] MEDS: Potassium Chloride/H20 20 MEQ/100 ML PIGGYBACK 100 MEQ IV ×2 (12:01→13:16)
[2024-12-16 14:08] VITALS: BP 125/38; PULSE 51; RESP 14; O2SAT 100
[2024-12-16] MEDS: Heparin Sodium,Porcine Flush 500 UNIT/5 ML SYRINGE IVFLUSH (14:43)
[2024-12-16 15:09] LABS: Potassium 4.8 mmol/L (3.3-5.1)
[2024-12-16 15:57] VITALS: BP 102/41; PULSE 50; RESP 19; O2SAT 98
[2024-12-16 16:32] VITALS: BP 102/41; PULSE 50; RESP 19; TEMP 36.6; O2SAT 98
== END 2024-12-16 16:32 | disposition home or self-care (01) ==
PROVIDERS: Emergency Provider Emergency Medicine Emergency Medical Services; PCP Internal Medicine
DX: E87.6 Hypokalemia (principal); M33.13 Other dermatomyositis without myopathy
CPT/HCPCS: 36415; 84132; 96365; 96366; 99283; 99284; J1642; J3480

== ENCOUNTER 2024-12-17 08:11 | Outpatient (REF) | payer MEDICARE, SELFPAY ==
[2024-12-17 09:00] LABS: Alanine Aminotransferase < 6 U/L (0-31); Albumin Level 3.0 g/dL (3.5-5.0); Alkaline Phosphatase 62 U/L (39-117); Anion Gap 7 (12-20); Aspartate Amino Transferase 20 U/L (5-31); Blood Urea Nitrogen 17 mg/dL (9-16); Calcium 7.9 mg/dL (8.4-10.2); Carbon Dioxide 24 mmol/L (22-29); Chloride 114 mmol/L (96-108); Estimated Glomerular Filt Rate > 60; Potassium 3.4 mmol/L (3.3-5.1); Sodium 142 mmol/L (135-145); Total Protein 5.8 g/dL (6.5-8.0)
== END 2024-12-17 08:12 | disposition home or self-care (01) ==
LOC: HO.LAB 08:11
PROVIDERS: PCP Internal Medicine; Visit Provider Student in an Organized Health Care Education/Training Program
DX: M32.9 Systemic lupus erythematosus, unspecified (principal); Z01.84 Encounter for antibody response examination
CPT/HCPCS: 36415; 80053; 86160; 86225

== ENCOUNTER 2024-12-22 10:16 | Outpatient (AMB) | payer MEDICARE, OTHER, SELFPAY ==
[2024-12-22 10:22] VITALS: BP 138/56; PULSE 59; O2SAT 100; BMI 28.9
--- NOTE | 2024-12-22 10:22 | A.OFFVIS_ITS ---
Vital Signs 12/22/24 10:22 Height 5 ft 3 in Weight 163 lb 2.273 oz BMI 28.9 BP 138/56 L Blood Pressure Location Lt brachial Position Sitting Pulse 59 Pulse Source Pulse Oximeter Pulse Oximetry (%) 100 Oxygen Delivery Method Room Air Intake Visit Reasons: pulmonary nodule Make Up Operator Helper Required: No Accompanied by: Self / Same As Patient Allergies No Known Allergies Allergy (Verified 12/22/24 10:25) HPI Comments Details: The patient 69 year woman with right sided breast cancer. Started carboplatin/docetaxel/Herceptin/pertuzumab based chemotherapy x 15 cycles and now onHerceptin and pertuzumab maintenance. Patient follow-up adverse effects from the chemotherapy developing chemo related dermatomyositis, then UTI. She went to [place] in March 2022 and developed a left sided pneumonia and a small to moderate pleural effusion. She had a repeat CT chest 06/2022 with a residual effusion. Too small to tap. She has been having worsening LE edema. Actually gained 16lbs while visiting in [place]. Now on lasix 40mg daily. ECHO with normal EF, but, grade 2 diastolic dysfunction. 01/01/2023 the patient is here for a pulmonary follow-up visit. The patient now is feeling better. She lost a lot a weight partly because of the chemotherapy. Although now she is feeling better and she has having some hair grow back. She is also on the prednisone for the amount of myositis she takes that every other day. For respiratory status the patient is doing well. She does have the diuretic. The patient was able to decrease the diuresis since she is doing better. She is going to be monitoring her weights closely in addition to her lower extremity edema. She is going to follow the recommendations from Cardiology. Her last chest x-ray was done October 2022 with evidence of pulmonary vascular congestion but no pleural effusions. Will plan to repeat the x-ray in May or June when she comes back for follow-up. If the patient has any worsening symptoms prior to that she can always call us and have the x-ray done earlier. 07/09/2023 the patient is here for pulmonary follow-up visit. Overall she is doing very well from a respiratory status. The patient has been on the IVIG infusions in the appeared to be very affecting beneficial. She has no longer on prednisone. Her strength is coming back and now she is actually working. She continues diuresis. She is monitoring her weight. She is having right now some right flank discomfort and she is going to be seeing her primary care regarding the discomfort at this time. In the meantime the patient did have a chest x-ray which I personally reviewed from March 2023 without any evidence of any pleural effusions. She did have some minimal vascular congestion but nothing significant. Clinically the patient is doing well respiratory exam is reassuring. Will plan to follow-up in a year's time with a chest x-ray. If the patient develops any worsening symptoms prior to that she will call for an earlier assessment. 12/22/2024 the patient is here for a pulmonary follow-up visit. She does complain of significant dyspnea on exertion. Moderate severity. Even with minimal activity. She is working closely with Rheumatology regarding her connective tissue disease. She is trying to get a new medication. From a volume status she is doing a lot better. Her echo does demonstrate significant diastolic dysfunction. But she is responding well to her diuretics. She had an x-ray done in November 2024 which I personally reviewed demonstrating a moderate degree pleural effusion on the right side. This is causing significant shortness of breath. We did go for brief walking oximetry the patient did not desaturate although she was visibly dyspneic with a dyspnea score of 7/10. The patient is agreeable to undergo an ultrasound-guided thoracentesis at this time for both diagnostic and therapeutic reasons. She does have a history of breast cancer and she is currently on tamoxifen. She also has a nebulizer and she was started on hypertonic saline for mucus clearance. Will start him Wixela so she can try that for now and also request pulmonary function studies. [facility] Medical History (Updated 12/17/24 @ 00:00 by Background Tiffani) Dermatomyositis Acute on chronic heart failure with preserved ejection fraction (HFpEF) Anemia Pancytopenia Long-term current use of intravenous immunoglobulin (IVIG) Plaquenil adverse reaction in therapeutic use Nocturnal cough Pleural effusion History of right breast cancer Axillary adenopathy Bacteremia due to Klebsiella pneumoniae SIRS (systemic inflammatory response syndrome) Acute hypokalemia UTI (urinary tract infection) Abdominal pain Atrial arrhythmia CHF (congestive heart failure) Acute diastolic (congestive) heart failure Diarrhea Pancolitis Colitis Nonsustained supraventricular tachycardia Port-A-Cath in place Pain in both feet Pedal edema History of COVID-19 Invasive ductal carcinoma of right breast Breast cancer, right Breast calcification, right Encounter to establish care Lumbar degenerative disc disease Hypertension Major depression, chronic Insomnia Anxiety Surgical History Hx of colonoscopy Status post right breast lumpectomy History of arthroscopic knee surgery History of hysterectomy History of section History of cholecystectomy History of gastric bypass History of fusion of cervical spine History of tonsillectomy Family History Mother No problems noted. Father Breast cancer Bone cancer Brother Substance use disorder Paternal Aunt Breast cancer Social History Household Members: Spouse and Children Housing: House Are you a primary client care representative to a significant other at home: No Do you presently have visiting nurse or other home services: Yes ([facility]NA) Alcohol intake: former Comment: Pedal Edema and pain- uses cane Patient Tobacco Use Status: Former Tobacco user Tobacco use type: Cigarette e-Cigarette/Vaping Use: Never Used Second Hand Smoke Exposure: Yes Advance Directives Date on File: 11/28/21 service: No Current occupational status: unemployed and retired Cognitive needs: No Hearing needs: No Vision needs: Yes (glasses) Female Reproductive History Menstrual Age of Menarche: 17 Review of Systems Const Denies chills, Denies fatigue, Denies fever(s) and Denies frequent falls ENT Denies dizziness Card Reports leg edema, Reports dyspnea and Reports dyspnea on exertion Resp Reports cough, Reports dyspnea, Reports dyspnea on exertion and Denies wheezing GI Denies hematochezia and Denies change in stool character Musc Denies abnormal gait, Reports arthralgias, Reports joint swelling and Denies radiating pain into limb Skin/Breast Reports lesions Neuro Denies abnormal gait, Denies dizziness and Denies frequent falls Endo Denies fatigue Aller/Immun Denies wheezing Physical Exam Vital Signs: Last Vital Signs Pulse 59 12/22/24 10:22 BP 138/56 L 12/22/24 10:22 Pulse Ox 100 12/22/24 10:22 Oxygen Delivery Method Room Air 12/22/24 10:22 BMI result Body Mass Index 28.9 Const General: comfortable, no acute distress and alert HEENT Head: Yes normocephalic Neck Neck: Yes trachea midline, Yes supple and Yes no JVD Chest Chest palpation & inspection: normal inspection of the chest Resp Effort & Inspection: normal respiratory effort Auscultation: diminished lung sounds Percussion: dullness Mid: right and Lower: right Cardio Jugular venous distension: no JVD Palpation: normal PMI Rate: regular rate Rhythm: regular rhythm Heart sounds: S1 normal heart sound present, S2 normal heart sound present, no click, no gallops and no murmurs GI Auscultation: normal bowel sounds Neuro General: no focal motor deficits Extrem General: Yes no clubbing, cyanosis or edema Assessment & Plan Assessment & Plan (1) Pleural effusion: Code(s): J90 - Pleural effusion, not elsewhere classified Category: Medical (2) 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 azathioprine added OSIRIS 1:80, CPK 991, marked proximal muscle weakness, CLARK neg, anti-SRP negative; aldolase WNL Associated breast cancer found 11/2021: Azathioprine stopped due to chemoRx 11/2021: flare of skin rash with taper of prednisone to 30mg 12/2021: monthly IV IVIG started 02/2022: prednisone stopped. Aza restarted. DC in 2023 due to pancytopenia Hydroxychloroquine started 11/2023, DC 01/2024 due to worsening rash 03/2024: Rituxumab started Code(s): M33.90 - Dermatopolymyositis, unspecified, organ involvement unspecified Category: Medical (4) Acute on chronic heart failure with preserved ejection fraction (HFpEF): Code(s): I50.33 - Acute on chronic diastolic (congestive) heart failure Category: Medical Plan Diuresis as tolerated US right sided thoracentesis, labs are in repeat CXR after thoracentesis start Wixela BID continue hypertonic saline nebs Consider bronchoscopy if lung does not expand PFTs F/U 2 months Orders: Orders pH Pleural Fluid Today J90 - Pleural effusion, not elsewhere classified Other Ref Test - Misc Today J90 - Pleural effusion, not elsewhere classified LDH Pleural Fluid Today J90 - Pleural effusion, not elsewhere classified Routine Culture w Gram Stain Today J90 - Pleural effusion, not elsewhere classified PFT pulmonary function test Today J90 - Pleural effusion, not elsewhere classified US drain thoracentesis w image Today J90 - Pleural effusion, not elsewhere classified Cell Count w Diff Pleural Fld Today J90 - Pleural effusion, not elsewhere classified Medications: New fluticasone propion-salmeterol 250-50 mcg/dose (Wixela Inhub) 1 inh inhalation Q12H 60 ea 11RF 30 days Coding Level of Care Code Est Pt Level 5 (17937) Diagnoses Pleural effusion J90 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
--- OUTSIDE RECORDS SUMMARY | 2024-12-22 12:03 | XMS_ITS | Clinical Summary ---
Author Organization [facility] Address [address] [place] [id number] Phone Care Team Providers Care Recycling Collections Driver Name Role Phone Leslie Washington NP Primary Care Provider [phone] Allergies No known active allergies Medications DULoxetine [...] 1,000 mcg by mouth daily. Active vitamins A,C,J-dufq-kxifxd (PRESERVISION AREDS) 14,320-226-200 pcxx-gi-pgds Cap Take 1 capsule by mouth 2 [...] COLONOSCOPY 2002 RSV VACCINE (1 - Risk 50-74 years 1-dose series) 2007 OSTEOPOROSIS SCREENING INITIAL (ONE-TIME) 2022 MAMMOGRAM 06/19/2024 [...] Maintenance Insurance HEALTH SAFETY NET PARTIAL MEDIC[facility] MEDICARE [place] [address] HEALTH SAFETY NET PARTIAL MEDICARE [employer]RO[employer] Member Subscriber Plan / Payer (Ef fective 2022-) Name:Kate Almaguer Member ID:[id number] Relation to Subscriber:Self Name:Kate Almaguer Subscriber ID:[id number] Payer ID:[id number] Group ID:Not on file Type:Medicare Address: [place] [id number] [facility] MEDICARE SUPPLEMENT [facility] PARTIAL MEDICARE RAILROAD [facility] MEDICARE SUPPLEMENT [facility] [place] [address] [facility] SAFETY NET PARTIAL MEDICARE [facility] Member Subscriber Plan / Payer (Ef fective 2022-Present) Name:Kate Almaguer Member ID:[id number] Relation to Subscriber:Self Name:Kate Almaguer Subscriber ID:[id number] Payer ID:[id number] Group ID:Not on file Type:Medicare Address: [address] MEDICARE SUPPLEMENT HEALTH SAFETY NET PARTIAL MEDICARE [facility] MEDICARE SUPPLEMENT [facility] [place] [address] HEALTH SAFETY NET PARTIAL MEDICARE [facility] MEDICARE SUPPLEMENT Care Teams Recycling Collections Driver Relationship Specialty Start Date End Date Leslie Washington NP [address] [facility] [address] [place] [address] PCP - General 10/05/21 Additional Source Comments The information contained in this document represents components of the legal health record. It is not the complete legal health record.[facility]
--- OUTSIDE RECORDS SUMMARY | 2024-12-22 12:03 | XMS_ITS | Clinical Summary ---
Author Organization [facility] Address [address] [place] [address] Phone Care Team Providers Care Network Services Project Manager Name Role Phone Unavailable Primary Care Provider Unavailabl e Encounters Date Type Department Care Team Description 11/03/2024 3:06 PM EDT - 11/03/2024 11:59 PM EDT Hospital Encounter [facility] PET Scan [address] [place] [address] History of right breast cancer [...] Last Done Comments Breast Cancer Screening 1955 Colorectal Cancer Screening: Colonoscopy 1955 DTaP,Tdap,and Td Vaccines (1 - Tdap) 01/17/1976 COVID-19 Vaccine (2 - Modern a risk series) 07/08/2023 06/10/2023 Zoster Vaccines (2 of 2) 08/05/2023 06/10/2023 Depression Screening 03/11/2024 Falls Risk Assessment 11/02/2024 Hepatitis C Screening [...] Signed Date: 11/04/2024 14:34 ET Workstation ID: [id number] Transcribed By: Self Edit Transcribed Date: 11/04/2024 [...] Signed Date: 11/04/2024 14:34 ET Workstation ID: [id number] Transcribed By: Self Edit Transcribed Date: 11/04/2024 14:27 ET Savannah Lind APN IMG NM PROCEDURES Final Re sult from Last 3 Months Insurance MEDICARE
== END 2024-12-22 10:55 | disposition home or self-care (01) ==
LOC: HO.HPS 10:17
PROVIDERS: PCP Internal Medicine; Visit Provider Hospitalist
DX: J90 Pleural effusion, not elsewhere classified (principal); C50.919 Malignant neoplasm of unspecified site of unspecified female breast; M33.90 Dermatopolymyositis, unspecified, organ involvement unspecified; I50.33 Acute on chronic diastolic (congestive) heart failure
CPT/HCPCS: 99215

== ENCOUNTER 2024-12-22 11:18 | Outpatient (REF) | payer MEDICARE, SELFPAY ==
--- NOTE | 2024-12-22 12:08 | PFT_ITS ---
Flows: FEV1: 51 % of predicted at 1.11 L FVC: 64 % of predicted at 1.79 L FEV1/FVC: 62 % Bronchodilator response: Present Volumes: Total lung capacity: 68 % of predicted at 3.28 L Residual volume: 88 % of predicted at 1.61 L Slow vital capacity: 56 % of predicted at 1.67 L Expiratory reserve volume: 30 % of predicted at 0.21 L Diffusion capacity: Moderately decreased, adjusts to being mildly decreased after correction for alveolar ventilation. Impression: Combined moderate obstructive and restrictive ventilatory defects with positive bronchodilator response. Decreased expiratory reserve volume suggests extrathoracic restriction likely secondary to abdominal obesity. Decreased diffusion capacity suggests emphysema. MTDD
[2024-12-22 12:10] VITALS: PULSE 50; O2SAT 100
--- OUTSIDE RECORDS SUMMARY | 2024-12-22 13:43 | XMS_ITS | CCD ---
Author Name Interface, [id number] lity Address [place] [address] Organization [facility] Address [place] [address] Care Team Providers Care Activities Concierge Name Role Phone Princess PEREZ, Lay Bernal Unavaillouann ble Allergies and Adverse Reactions Medication/Group Name Reaction Severity Date No known allergies Reason for Visit Functional Status Date Name/Question Score/Answer 03/18/2013 Karnofsky performance status 90 Medications Date Name Route Dose Frequency Instructions Start Date End Date Status Fill Status Indication 08/12 Zolpidem Oral Tablet PO 1.0 TABLE T(S) QHS PRN sleep 2013 active 08/12 Miscellane ous Drug PO 1.0 TABLE T(S) daily 2013 active 08/12 Cyanocobal humphries Oral PO 1.0 TABLE T(S) as directed 2013 active 08/12 Duloxetine Oral Delayed Release PO 1.0 CAPSU LE(S) BID 2013 active Problems Diagnosis Status Date of Diagnosis [...] (finding) Active Social History Date Name Value 08/12/2020 Sex Female
== END 2024-12-22 11:19 | disposition home or self-care (01) ==
LOC: HO.RESP 11:18
PROVIDERS: PCP Internal Medicine; Visit Provider Hospitalist
DX: J90 Pleural effusion, not elsewhere classified (principal); Z87.891 Personal history of nicotine dependence
CPT/HCPCS: 94060; 94640; 94727; 94729; 99212

== ENCOUNTER 2024-12-25 11:30 | Day surgery (SDC) | payer MEDICARE, SELFPAY ==
--- OUTSIDE RECORDS SUMMARY | 2024-12-23 15:42 | XMS_ITS | Clinical Summary ---
Author Organization [facility] Address [address] [place] [address] Phone Care Team Providers Care Handbag Stitcher Name Role Phone Leslie Washington NP Primary Care Provider [phone] Allergies No known active allergies Medications DULoxetine [...] 1,000 mcg by mouth daily. Active vitamins A,C,P-jvoo-mzhbpa (PRESERVISION AREDS) 14,320-226-200 ezib-mx-rjrh Cap Take 1 capsule by mouth 2 [...] Maintenance Insurance HEALTH SAFETY NET PARTIAL MEDICARE [facility] [place] [address] HEALTH SAFETY NET PARTIAL MEDICARE RAILROAD Member Subscriber Plan / Payer (Ef fective 2022-) Name:Kate Almaguer Member ID:[id number] Relation to Subscriber:Self Name:Kate Almaguer Subscriber ID:[id number] Payer ID:[id number] Group ID:Not on file Type:Medicare Address: [place] [id number] [facility] MEDICARE SUPPLEMENT [facility] PARTIAL MEDICARE RAILROAD [facility] MEDICARE SUPPLEMENT [facility] [place] [address] [facility] SAFETY NET PARTIAL MEDICARE [facility] Member Subscriber Plan / Payer (Ef fective 2022-Present) Name:Kate Almaguer Member ID:[id number] Relation to Subscriber:Self Name:Kate Almaguer Subscriber ID:[id number] Payer ID:[id number] Group ID:Not on file Type:Medicare Address: [address] MEDICARE SUPPLEMENT HEALTH SAFETY NET PARTIAL MEDICARE [facility] MEDICARE SUPPLEMENT [facility] [place] [address] HEALTH SAFETY NET PARTIAL MEDICARE [facility] MEDICARE SUPPLEMENT Care Teams Handbag Stitcher Relationship Specialty Start Date End Date Leslie Washington NP [address] [facility] [address] [place] [address] PCP - General 10/05/21 Additional Source Comments The information contained in this document represents components of the legal health record. It is not the complete legal health record.[facility]
--- OUTSIDE RECORDS SUMMARY | 2024-12-23 15:42 | XMS_ITS | Clinical Summary ---
Author Organization [facility] Address [address] [place] [address] Phone Care Team Providers Care Fitness Attendant Name Role Phone Unavailable Primary Care Provider Unavailabl e Encounters Date Type Department Care Team Description 11/03/2024 3:06 PM EDT - 11/03/2024 11:59 PM EDT Hospital Encounter PET Scan [address] [place] [address] History of right breast cancer [...] Signed Date: 11/04/2024 14:34 ET Workstation ID: [id number] Transcribed By: Self Edit Transcribed Date: 11/04/2024 [...] Signed Date: 11/04/2024 14:34 ET Workstation ID: [id number] Transcribed By: Self Edit Transcribed Date: 11/04/2024 14:27 ET Savannah Lind APN IMG NM PROCEDURES Final Re sult from Last 3 [place] [phone]
--- OUTSIDE RECORDS SUMMARY | 2024-12-23 15:42 | XMS_ITS | CCD ---
Author Name Interface, [id number] lity Address [place] [address] Organization [facility] Address [address] [place] [address] Care Team Providers Care Loom Fixer Supervisor Name Role Phone Princess PEREZ, Lay Bernal [...]
[2024-12-25] VITALS (8 sets, daily range): BP systolic 109–147; BP diastolic 40–54; PULSE 51–68; RESP 14–18; TEMP 36.8–37.2; O2SAT 97–99; BMI 28.9
--- NOTE | ~2024-12-25 | XR_ITS ---
EXAMINATION: XR CHEST 1 VIEW HISTORY: s/p thoracentesis COMPARISON: Comparison is made with the prior examination dated 11/26/2024. FINDINGS: A single AP portable view of the chest performed at 1:54 PM is submitted. The lungs are expanded and clear. There is no pleural effusion, pneumothorax, or pulmonary vascular congestion. The heart is normal in size. The bones are intact. A portion of the fusion plate is seen in the lower cervical spine. XR/XR chest 1V IMPRESSION: No pneumothorax after ultrasound-guided right thoracentesis. Electronically signed by: Billy Banerjee MD 12/25/2024 01:59 PM EDT
--- NOTE | ~2024-12-25 | US_ITS ---
EXAMINATION: ULTRASOUND-GUIDED THORACENTESIS CLINICAL INFORMATION: PROCEDURE: Ultrasound-guided right thoracentesis History: Right pleural effusion Specimen: A sample of pleural fluid was sent for analysis Access: 5 [place] Yueh catheter Medications: 5 mL 1% lidocaine TECHNIQUE/FINDINGS Appropriate preprocedural clinical history and imaging studies were reviewed. The patient was brought to the department and placed in the seated position. Ultrasound images of the right thorax were obtained to localize a large pleural effusion. Permanent ultrasound images were saved. Risks and benefits and possible complications were discussed with the patient and consent form was signed. An area of the patient's right back was prepped and draped in usual sterile fashion. 10 mL of 1% lidocaine was used to obtain local anesthesia of the skin and deeper tissues. A standard small bore needle was introduced to sample pleural fluid and demonstrate a safe access route. A 4 [place] Yueh catheter was then used to access the pleural cavity. 950 ml of dark yellow fluid was removed passively. The catheter was then removed. A dressing was applied. A postprocedure chest x-ray will be performed and will be dictated separately. There were no immediate complications. The procedure was performed by Hank Carson NP and supervised by Ryland Murphy M.D. Electronically signed by: Ryland Murphy MD 12/29/2024 10:40 AM EDT Workstation: [id number]
[2024-12-25] MEDS: Lidocaine HCl 1 % MPF 5 ML VIAL SUBCUT (15:28)
[2024-12-25 15:40] LABS: WBC Pleural Fluid 0.178 X10*3/uL
[2024-12-25 15:41] LABS: BF Shift QC OK YES; Other Cells Plerual Fl 6 %
[2024-12-25 15:42] LABS: MN% 93.2 %; Man Diluent Bkgrd OK YES; PMN% 6.8 %
[2024-12-25 15:44] LABS: Lymphocytes Pleural Fluid 88 %
[2024-12-25 15:45] LABS: Neutrophils Pleural Fluid 6 %
== END 2024-12-25 14:45 | disposition home or self-care (01) ==
PROVIDERS: PCP Internal Medicine; Visit Provider Hospitalist
DX: J90 Pleural effusion, not elsewhere classified (principal); R06.02 Shortness of breath; C50.911 Malignant neoplasm of unspecified site of right female breast; T45.1X5A Adverse effect of antineoplastic and immunosuppressive drugs, initial encounter; M36.0 Dermato(poly)myositis in neoplastic disease; R60.0 Localized edema; D64.9 Anemia, unspecified; M35.9 Systemic involvement of connective tissue, unspecified; D61.818 Other pancytopenia; I11.0 Hypertensive heart disease with heart failure; I50.33 Acute on chronic diastolic (congestive) heart failure; F33.8 Other recurrent depressive disorders; Z79.810 Long term (current) use of selective estrogen receptor modulators (SERMs); Z79.620 Long term (current) use of immunosuppressive biologic; Z92.21 Personal history of antineoplastic chemotherapy; F41.9 Anxiety disorder, unspecified; Z98.84 Bariatric surgery status; Z98.1 Arthrodesis status; Z90.49 Acquired absence of other specified parts of digestive tract; Z98.890 Other specified postprocedural states; Z87.891 Personal history of nicotine dependence; Z56.0 Unemployment, unspecified
CPT/HCPCS: 32555; 71045; 83615; 83986; 87070; 87073; 87205; 88112; 88305; 89051; J2003

== ENCOUNTER → 2024-12-25 13:48 | Outpatient (BNV) | payer MEDICARE, SELFPAY | PROVIDERS: PCP Internal Medicine; Visit Provider Radiology Diagnostic Radiology | DX: J90 Pleural effusion, not elsewhere classified (principal) | CPT/HCPCS: 32555 ==

== ENCOUNTER 2025-01-07 14:09 | Outpatient (AMB) | payer MEDICARE, SELFPAY ==
--- NOTE | 2025-01-07 14:12 | MHC.PC.OV ---
Vital Signs 01/07/25 14:14 Height 5 ft 3 in Weight 166 lb 4 oz BMI 29.4 BP 116/60 Blood Pressure Location Lt brachial Position Sitting Pulse 62 Pulse Source Pulse Oximeter Temp 97.1 F Temp Source Temporal Artery Scan Pulse Oximetry (%) 98 Oxygen Delivery Method Room Air Intake Visit Reasons: follow up Intake Note: Patient is here to follow up on HTN, Neuropathy, CHF. Value Stream Manager Required: No Telegraphic Typewriter Repairer: Not Required per policy Accompanied by: Self / Same As Patient Allergies No Known Allergies Allergy (Verified 01/07/25 14:14) Tobacco use date assessed: 01/07/25 Fall risk assessment: No Falls in past year Last assessed Fall Risk: 01/07/25 Dental Screening Dental Screen Date: 11/26/24 [facility] Medical History (Updated 12/17/24 @ 00:00 by Macho Nixon) Dermatomyositis Acute on chronic heart failure with preserved ejection fraction (HFpEF) Anemia Pancytopenia Long-term current use of intravenous immunoglobulin (IVIG) Plaquenil adverse reaction in therapeutic use Nocturnal cough Pleural effusion History of right breast cancer Axillary adenopathy Bacteremia due to Klebsiella pneumoniae SIRS (systemic inflammatory response syndrome) Acute hypokalemia UTI (urinary tract infection) Abdominal pain Atrial arrhythmia CHF (congestive heart failure) Acute diastolic (congestive) heart failure Diarrhea Pancolitis Colitis Nonsustained supraventricular tachycardia Port-A-Cath in place Pain in both feet Pedal edema History of COVID-19 Invasive ductal carcinoma of right breast Breast cancer, right Breast calcification, right Encounter to establish care Lumbar degenerative disc disease Hypertension Major depression, chronic Insomnia Anxiety Surgical History Hx of colonoscopy Status post right breast lumpectomy History of arthroscopic knee surgery History of hysterectomy History of section History of cholecystectomy History of gastric bypass History of fusion of cervical spine History of tonsillectomy Family History Mother No problems noted. Father Breast cancer Bone cancer Brother Substance use disorder Paternal Aunt Breast cancer Social History Household Members: Spouse and Children Housing: House Are you a primary point of care specialist to a significant other at home: No Do you presently have visiting nurse or other home services: Yes ([facility]) Alcohol intake: former Comment: Pedal Edema and pain- uses cane Patient Tobacco Use Status: Former Tobacco user Tobacco use type: Cigarette e-Cigarette/Vaping Use: Never Used Second Hand Smoke Exposure: Yes Advance Directives Date on File: 11/28/21 service: No Current occupational status: unemployed and retired Cognitive needs: No Hearing needs: No Vision needs: Yes (glasses) Female Reproductive History Menstrual Age of Menarche: 17 Questionnaire PHQ-9 Over the last 2 weeks, how often have you been bothered by any of the following problems? 1. Little interest or pleasure in doing things: not at all 2. Feeling down, depressed, or hopeless: not at all 3. Trouble falling or staying asleep, or sleeping too much: several days 4. Feeling tired or having little energy: several days 5. Poor appetite or overeating: not at all 6. Feeling bad about yourself - or that you are a failure or have let yourself or your family down: not at all 7. Trouble concentrating on things, such as reading the newspaper or watching television: not at all 8. Moving or speaking so slowly that other people could have noticed. Or the opposite - being so fidgety or restless that you have been moving around a lot more than usual: not at all 9. Thoughts that you would be better off or of hurting yourself in some way: not at all Total score: 2 Depression Screening Interpretation: Positive Depression Screening Done: Yes Source: Developed by Drs. Billy Delarosa, Keara Painter, Navdeep Vargas and colleagues, with an educational julissa from [employer]. Thrive Questionnaire Date Thrive assessed: 01/07/25 I am a: Patient What is your living situation today?: I have a steady place to live Within the past 12 months, did the food you bought not last and you didn't have the money to get more?: Never true Within the past 12 months, did you worry whether your food would run out before you got money to buy more?: Never true Do you have trouble paying for medicines?: No Do you have trouble getting transportation to medical appointments?: No Do you have trouble paying your heating and electricity bill?: No Do you have trouble taking care of your child, family member or friend?: No Do you have trouble with day-to-day activities such as bathing, preparing meals, shopping, managing finances, etc.?: No Are you currently unemployed and looking for a job?: No Are you interested in more education?: No THRIVE Score: 0 GATO-7 AMB Questionnaire GATO-7 Date GATO - 7 assessed: 12/04/24 Source: Developed by Drs. Billy Delarosa, Keara Painter, Navdeep Vargas and colleagues, with an educational julissa from [employer]. Physical exam (Primary Care) Vital Signs: Last Vital Signs Temp 97.1 F 01/07/25 14:14 Pulse 62 01/07/25 14:14 BP 116/60 01/07/25 14:14 Pulse Ox 98 01/07/25 14:14 Oxygen Delivery Method Room Air 01/07/25 14:14 BMI result Body Mass Index 29.4 Tobacco/Smoking Status: Tobacco use Status Tobacco use date assessed 01/07/25 01/07/25 14:17 Patient Tobacco Use Status Former Tobacco user 01/07/25 14:17 Tobacco use type Cigarette 01/07/25 14:17 e-Cigarette/Vaping Use Never Used 01/07/25 14:17 PHQ-9: PHQ-9 Score PHQ-9: Total score 2 01/07/25 14:17 Depression Screening Interpretation: Positive Thrive Assessment: Date of Thrive Assessment Date Thrive assessed 01/07/25 01/07/25 14:17 Coding Level of Care Code Est Pt Level 4 (22419) Complex EM visit Add On G2211 Diagnoses Hypertension I10 Assessment & Plan Assessment & Plan (1) Hypertension: Code(s): I10 - Essential (primary) hypertension Category: Medical Plan: History of Present Illness - The patient is a 69-year-old female presenting for ongoing management of dermatomyositis and associated conditions. - Dermatomyositis: Regular visits to a specialist in [place] for management. - Anemia and Hypokalemia: Persistent issues with low blood counts and potassium levels, under specialist care. - Muscle pain: Reports discomfort under the knee, likely muscle-related. - Hair and eyelash loss: Notable loss of hair and eyelashes, with persistent chin whiskers. - Treatment: Undergoing IVIG treatments, with prior use of rituximab. - Medications: Includes citalopram, clonidine, Jardiance, tamoxifen, and tofacitinib. - Preventative care: Awaiting flu and shingles vaccinations post-rituximab. Social History - Transportation: The patient is able to drive independently. Review of Systems - Musculoskeletal: Reports muscle pain under the knee. - Dermatological: Reports hair and eyelash loss. - Hematological: Reports anemia and hypokalemia. Physical Exam General: Cooperative and healthy appearing Nutritional Appearance: Well nourished Orientation/consciousness: Patient oriented x3 Limitations: No limitations Head: Normal to inspection General: Appearance normal, both eyes and all related structures Neck: Normal visual inspection Chest: Normal palpation of entire chest wall Respiratory: Patient reports seeing Dr. Hu for pulmonology. ormal respiratory effort Neurology: Patient oriented x3, reports crunching under the knee, possibly muscle-related, and is painful. Results - Labs: Anemia and hypokalemia noted in blood work. Plan - Continue regular IVIG treatments as scheduled. - Monitor blood work for anemia and hypokalemia during IVIG sessions. - Follow up with infection prevention specialist in [place] for dermatomyositis management. - Maintain current medication regimen including citalopram, clonidine, Jardiance, tamoxifen, and tofacitinib. - Plan for flu and shingles vaccinations post-rituximab treatment. Discussion Notes During the visit, we discussed the ongoing management of dermatomyositis, including the continuation of IVIG treatments and monitoring of blood work for anemia and hypokalemia. The patient is advised to follow up with her infection prevention specialist in [place] and maintain her current medication regimen. We also discussed the timing of flu and shingles vaccinations following rituximab treatment. Patient Instructions - Continue IVIG treatments as scheduled. - Monitor blood work during IVIG sessions. - Follow up with your advanced research programs director in [place]. - Keep taking your medications as prescribed. - Plan to get flu and shingles vaccines after rituximab treatment.
[2025-01-07 14:14] VITALS: BP 116/60; PULSE 62; TEMP 36.2; O2SAT 98; BMI 29.4
--- OUTSIDE RECORDS SUMMARY | 2025-01-07 17:14 | XMS_ITS | Clinical Summary ---
Author Organization [facility] Address [address] [place] [address] Phone Care Team Providers Care Application Assistant Name Role Phone Leslie Washington NP Primary Care Provider [phone] Allergies No known active allergies Medications DULoxetine [...] 1,000 mcg by mouth daily. Active vitamins A,C,S-hicv-rforxy (PRESERVISION AREDS) 14,320-226-200 bype-lj-zvio Cap Take 1 capsule by mouth 2 [...] HEALTH SAFETY NET PARTIAL MEDICARE [facility] [place] [place] [address] HEALTH SAFETY NET PARTIAL MEDICARE RAILROAD Member Subscriber Plan / Payer (Ef fective 2022-) Name:Kate Almaguer Member ID:[id number] Relation to Subscriber:Self Name:Kate Almaguer Subscriber ID:[id number] Payer ID:[id number] Group ID:Not on file Type:Medicare Address: [place] [id number] [facility] MEDICARE SUPPLEMENT [facility] PARTIAL MEDICARE [facility]RO[facility] MEDICARE SUPPLEMENT [facility] [place] [address] [facility] SAFETY NET PARTIAL MEDICARE [facility] Member Subscriber Plan / Payer (Ef fective 2022-Present) Name:Kate Almaguer Member ID:[id number] Relation to Subscriber:Self Name:Kate lAmaguer Subscriber ID:[id number] Payer ID:[id number] Group ID:Not on file Type:Medicare Address: [address] MEDICARE SUPPLEMENT HEALTH SAFETY NET PARTIAL MEDICARE [facility] SUPPLEMENT [facility] [place] [address] HEALTH SAFETY NET PARTIAL MEDICARE [facility] MEDICARE SUPPLEMENT [facility] [place] [address] Care Teams Application Assistant Relationship Specialty Start Date End Date Leslie Washington NP [address] [place] [address] [place] [address] PCP - General 10/05/21 Additional Source Comments The information contained in this document represents components of the legal health record. It is not the complete legal health record.[facility]
--- OUTSIDE RECORDS SUMMARY | 2025-01-07 17:14 | XMS_ITS | Clinical Summary ---
Author Organization [facility] Address [address] [place] [address] Phone Care Team Providers Care Massage Operator Name Role Phone Unavailable Primary Care Provider Unavailabl e Encounters Date Type Department Care Team Description 11/03/2024 3:06 PM EDT - 11/03/2024 11:59 PM EDT Hospital Encounter [facility] PET Scan [address] [place] [address] History of right breast cancer [...] Signed Date: 11/04/2024 14:34 ET Workstation ID: [id number] Transcribed By: Self Edit Transcribed Date: 11/04/2024 [...] Signed Date: 11/04/2024 14:34 ET Workstation ID: [id number] Transcribed By: Self Edit Transcribed Date: 11/04/2024 14:27 ET Savannah Lind APN IMG NM PROCEDURES Final Re sult from Last 3 Months Insurance MEDICARE
== END 2025-01-07 14:39 | disposition home or self-care (01) ==
LOC: HO.HMCH 14:10
PROVIDERS: PCP Internal Medicine; Visit Provider Internal Medicine
DX: I10 Essential (primary) hypertension (principal)

== ENCOUNTER → 2025-01-07 14:09 | Outpatient (BNVA) | payer MEDICARE, SELFPAY | PROVIDERS: PCP Internal Medicine; Visit Provider Internal Medicine | DX: I10 Essential (primary) hypertension (principal); Z87.891 Personal history of nicotine dependence | CPT/HCPCS: 99212 ==

== ENCOUNTER 2025-01-15 11:38 | Inpatient (IN) | payer MEDICARE, SELFPAY ==
--- NOTE | ~2025-01-15 | XR_ITS ---
EXAMINATION: XR CHEST CLINICAL INFORMATION: s/p thoracentesis COMPARISON: None available. TECHNIQUE: 2 views of the chest were obtained. FINDINGS: Anterior plate and screws fuse C6-T1, unchanged. Left-sided port is again identified entering the left subclavian vein and terminating in the superior cavoatrial junction. There is no pneumothorax. Right pleural effusion has decreased in size and there is improved aeration of the right lung with vague groundglass density in the middle third lung zone. There is also vague density in the left mid third lung zone. XR/XR chest 2V IMPRESSION: Decreased right pleural effusion without pneumothorax. Vague densities in the bilateral middle third lung zones could represent atelectasis, pneumonia, or edema. Electronically signed by: Dennis Borja MD 01/18/2025 10:52 AM [facility]
--- NOTE | ~2025-01-15 | XR_ITS ---
EXAMINATION: XR CHEST CLINICAL INFORMATION: SOB COMPARISON: 12/25/2024, 11/26/2024. TECHNIQUE: AP view of the chest was obtained. FINDINGS: There is a left-sided chest port in place with the tip extending into the superior SVC. There is mild prominence of the cardiac silhouette. Mediastinal and hilar contours appear grossly normal. There is aortic mural calcification. Lungs demonstrate increased hazy interstitial markings bilaterally, with subtle Mariela B lines in the peripheral lung bases, findings suggestive of interstitial edema. There is a small layering right pleural effusion with underlying right basilar opacity. This may represent atelectasis versus pneumonia. There is linear atelectasis in the right perihilar region. There is no pneumothorax. No focal osseous or soft tissue abnormality. There are degenerative changes in the bilateral shoulder joints and spine. There is a lower cervical fusion device in place. XR/XR chest 1V IMPRESSION: 1. Chest port in good position. 2. Mild interstitial pulmonary edema. Small right pleural effusion. 3. Right basilar airspace opacity, either representing atelectasis, alveolar edema, or possibly pneumonia in the appropriate clinical setting. Electronically signed by: Nnamdi Lee MD 01/15/2025 12:01 PM [facility] [place]
--- NOTE | ~2025-01-15 | US_ITS ---
EXAMINATION: ULTRASOUND-GUIDED THORACENTESIS CLINICAL INFORMATION: Right pleural effusion. COMPARISON: None available. TECHNIQUE: Following explaining ultrasound-guided right thoracentesis procedure, benefits and risk, a written consent was obtained. Patient was placed upright sitting on a ultrasound stretcher and preliminary ultrasound imaging was performed to right posterior chest. An optimal site was selected along the right lateral infraclavicular] lying along the intercostal space and markers placed. Marked site was cleaned and draped in usual sterile manner. 1% lidocaine was administered puncture site. Through a small skin incision FINDINGS: Preliminary ultrasound imaging there is large amount of right pleural effusion seen. Approximately 1 L of cloudy rosalba color fluid was drained from the chest. Part of the fluid was sent to lab as per physician's orders. Post procedure chest X inspiration expiration was obtained portably. US/US thoracentesis IMPRESSION: Successful ultrasound-guided right thoracentesis performed with approximately 1 L of clear yellowish fluid was drained from fluid. The fluid was sent to lab as well. Electronically signed by: Cisco Cordero MD 01/18/2025 02:24 PM [facility]
--- NOTE | ~2025-01-15 | CT_ITS ---
EXAMINATION: CT ANGIOGRAM CHEST CLINICAL INFORMATION: Shortness of breath TECHNIQUE: Multiple axial images were obtained through the chest after the administration of 60 mL of Omnipaque 350 intravenous contrast. Extensive vascular post-processing including two-dimensional and three-dimensional reformatted images were created and reviewed on an independent workstation. This CT examination was performed using dose optimization techniques as appropriate, variously including the following: *Automated exposure control *Adjustment of mA and/or kV according to patient size (this includes techniques or standardized protocols for targeted exams where dose is matched to indication/reason for exam; i.e. extremities or head) *Use of iterative reconstruction technique Comparison June 21, 2024 FINDINGS: QUALITY OF STUDY/CONTRAST BOLUS: Suboptimal with incomplete opacification of tertiary branches. PULMONARY ARTERIES: No filling defects or pulmonary THORACIC AORTA: Moderate atherosclerotic calcifications are present. The aneurysm. There is no dissection. LUNGS AND PLEURA: There is a moderate right pleural effusion and compressive atelectasis in the right lower lobe and right middle lobe, increased from the prior. In the anterior right upper lobe, there is a 1.1 x 2.2 cm focal low attenuating area contacting pleura with spiculated margins is unchanged. There is a small left pleural effusion and minimal compressive atelectasis, increased from the prior. Pulmonary vessels are mildly prominent. MEDIASTINUM: Unremarkable CORONARY ARTERY CALCIFICATION: None CHEST WALL/AXILLA: No axillary or internal mammary lymphadenopathy. There are postsurgical changes in the right breast with skin thickening and retraction of the surface similar to the prior. UPPER ABDOMEN: The spleen measures 14.7 cm. BONES: Multilevel degenerative changes with disc space narrowing and osteophytes is again noted. CT/CT angio chest PE protocol IMPRESSION: There is spiculated lesion in the anterior right upper lobe measuring 1.1 x 2.2 cm contacting pleura that could represent neoplasm. Consider PET/CT or consultation for biopsy. Moderate right and small left pleural effusions have increased since the prior examination and there is associated compressive atelectasis. There is pulmonary vascular congestion. Splenomegaly. There are no filling defects to suggest pulmonary embolus. Fleischner guidelines were followed. Electronically signed by: Dennis Borja MD 01/15/2025 05:35 PM [facility]
--- NOTE | 2025-01-15 11:40 | ED_ITS ---
HPI - SOB/Dyspnea General Chief Complaint: Dyspnea Stated Complaint: sob, diff breathing Time Seen by Provider: 01/15/25 12:35 Related Data Home Medications ?Medication ?Instructions ?Recorded ?Confirmed cetirizine 10 mg tablet 20 mg PO DAILY 09/09/2406/02 tamoxifen 20 mg tablet 20 mg PO DAILY 09/09/2406/02 potassium chloride 20 mEq 20 meq PO BID 11/26/2412/11 tablet,extended release empagliflozin 10 mg tablet 10 mg PO DAILY 01/15/25 (Jardiance) fluticasone furoate 200 1 ea inhalation DAILY mcg-vilanterol 25 mcg/dose inhalation powder (Breo Ellipta) hydroxyzine HCl 25 mg tablet 25 mg PO BEDTIME 01/15/25 01/15/25 Previous Rx's ?Medication ?Instructions ?Recorded tacrolimus 0.1 % topical ointment 1 appl topical BID # 60 grams 02/27/24 clobetasol 0.05 % topical ointment 1 appl topical BID #60 grams 03/05/24 citalopram 20 mg tablet 20 mg PO DAILY #30 tabs 08/02 tofacitinib 11 mg tablet,extended 11 mg PO DAILY #30 t abs 10/08/24 release 24 hr Held on 12/11/24. Instructions: Doctor's Order fluticasone 250 mcg-salmeterol 50 1 inh inhalation Q12 H 30 days #60 12/22/24 mcg/dose blistr powdr for ea inhalation (Wixela Inhub) furosemide 40 mg tablet 40 mg PO BID #180 tabs 12/22 clonidine HCl 0.2 mg tablet 0.2 mg PO BEDTIME for anxi ety #90 01/07/25 tabs Allergies Allergy/AdvReac Type Severity Reaction Status Date / Time No Known Allergies Allergy Verified 01/15/25 11:43 [facility] Past Medical History Medical History (Updated 01/15/25 @ 18:18 by Brandy Puente MD) Dermatomyositis Acute on chronic heart failure with preserved ejection fraction (HFpEF) Anemia Pancytopenia Long-term current use of intravenous immunoglobulin (IVIG) Plaquenil adverse reaction in therapeutic use Nocturnal cough Pleural effusion History of right breast cancer Axillary adenopathy Bacteremia due to Klebsiella pneumoniae SIRS (systemic inflammatory response syndrome) Acute hypokalemia UTI (urinary tract infection) Abdominal pain Atrial arrhythmia CHF (congestive heart failure) Acute diastolic (congestive) heart failure Diarrhea Pancolitis Colitis Nonsustained supraventricular tachycardia Port-A-Cath in place Pain in both feet Pedal edema History of COVID-19 Invasive ductal carcinoma of right breast Breast cancer, right Breast calcification, right Encounter to establish care Lumbar degenerative disc disease Hypertension Major depression, chronic Insomnia Anxiety Surgical History Hx of colonoscopy Status post right breast lumpectomy History of arthroscopic knee surgery History of hysterectomy History of section History of cholecystectomy History of gastric bypass History of fusion of cervical spine History of tonsillectomy Family History Family History Mother No problems noted. Father Breast cancer Bone cancer Brother Substance use disorder Paternal Aunt Breast cancer Social History Social History Household Members: Spouse and Children Housing: House Are you a primary home health care social worker to a significant other at home: No Do you presently have visiting nurse or other home services: Yes ([facility]) Alcohol intake: former Comment: Pedal Edema and pain- uses cane Patient Tobacco Use Status: Former Tobacco user Tobacco use type: Cigarette Smoked in Last 30 Days: No e-Cigarette/Vaping Use: Never Used Second Hand Smoke Exposure: Yes Use of substances other than those prescribed or required for medical reasons: No Advance Directives: Yes Advance Directives on File: Yes Advance Directives Date on File: 11/28/21 service: No Current occupational status: unemployed and retired Cognitive needs: No Hearing needs: No Vision needs: Yes (glasses) Physical Exam 2 Vital Signs: Vital Signs: Last Vital Signs Temp 98.2 F 01/15/25 12:12 Pulse 63 01/15/25 15:23 Resp 12 01/15/25 15:23 BP 141/70 H 01/15/25 15:23 Pulse Ox 96 01/15/25 15:23 O2 Del Method Room Air 01/15/25 15:23 O2 Flow Rate 88 01/15/25 18:09 BMI result Body Mass Index 29.4 Course Course Course Narrative: This is an RME: Additional HPI, ROS, PE not included below will be deferred to primary provider. RME assessment and note performed by: Sylvia Kapoor PA-C 69-year-old female with a history of dermatomyositis treated with IVIG (last had yesterday and day prior), HFpEF, hypokalemia, pancytopenia, depression, right breast CA (11/16/2021-treated with chemotherapy and lumpectomy) who presents emergency department with concerns of shortness of breath. BP elevated at 202/81, RR 25, O2 98% on RA, lungs diminished at lower lung bases. Pt to be brought back [facility] for further eval. Plan: Labs, EKG, CXR, further ER eval needed Medications Administered Discontinued Medications Generic Name Dose Route Start Last Admin Trade Name Freq PRN Reason Stop Dose Admin Iohexol 100 ml 01/15/25 16:53 01/15/25 16:53 Iohexol 350 Mg/Ml 100 Ml Infus..Btl IV 01/15/25 16:54 65 ml ONCE ONE Administration Medical Decision Making Medical Decision Making [facility] Narrative: 69 years old with a history of breast cancer history of diastolic heart failure presented today with having increasing shortness of breath with exertion. Visibly short of breath on ambulation. Lungs are clear. I did a CT angio of the chest. There was no evidence for PE but there was a mass noted in the right upper lobe near the pleura. Question etiology. In addition patient's hemoglobin is 7.2 today this is lower than baseline with a low MCV. We did a rectal exam was brown stool. Sent it off for guaiac. Patient's BNP is in the 700 range consistent with having diastolic heart failure. This is about the same as baseline. Will admit for further evaluation due to the shortness of breath patient's O2 sat dropped down to the 80s on ambulation. Differential Diagnosis Differential Diagnoses: The differential diagnosis associated with the presentation includes PE, pneumonia, congestive heart failure Admission/Observation Consideration of admission/observation: Escalation of care including admission/observation considered Consult Healthcare Provider Management of the patient was discussed with: Hospitalist Lab Data [facility] Lab Attestation statement: I reviewed the patient's lab results. 01/15/25 12:35 01/15/25 12:35 Labs: Lab Results 01/15/25 01/15/25 01/15/25 Range/Units 12:35 12:39 18:23 WBC 1.0 L (4.8-10.8) X10*3/uL RBC 3.22 L (4.20-5.50) X10*6/uL Hgb 7.2 L (12.0-16.0) g/dl Hct 25.8 L (37.0-47.0) % MCV 80.1 (80.0-98.0) fL MCH 22.4 L (27.0-33.0) pg MCHC 27.9 L (31.0-35.0) g/dl RDW 16.7 H (11.0-16.0) % Plt Count 51 L (160-400) X10*3/uL MPV 9.9 (9.4-12.3) fL Immature Gran % (Auto) 0.0 (0.0-0.4) % Neut % (Auto) 60.0 (45-73) % Lymph % (Auto) 20.0 (20-40) % [facility] % (Auto) 18.9 H (2-11) % Eos % (Auto) 0.0 (0-4) % Baso % (Auto) 1.1 (0-2) % Lymph # (Auto) 0.2 L (1.2-4.9) X10*3/uL [facility] # (Auto) 0.2 (0.1-1.2) X10*3/uL Eos # (Auto) 0.0 (0.0-0.4) X10*3/uL Baso # (Auto) 0.0 (0.0-0.2) X10*3/uL Abs Immat Gran (auto) 0.00 (0.00-0.03) X10*3/uL Absolute Neuts (auto) 0.6 L (2.0-8.3) x10*3/uL Absolute Nucleated RBC 0.000 (0.0-0.012) X10*3/uL Nucleated RBC % (auto) 0.0 (0.0-0.2) /100WBC Smear Tech's Comments VERIFIED VBG pH 7.39 (7.32-7.43) VBG pCO2 37 mmHg VBG pO2 62 mmHg VBG HCO3 23 (22-26) mmol/L VBG O2 Saturation TNP VBG Base Excess -1.6 mmol/L Sodium 139 (135-145) mmol/L Potassium 3.8 (3.3-5.1) mmol/L Chloride 116 H (96-108) mmol/L Carbon Dioxide 19 L (22-29) mmol/L Anion Gap 8 L (12-20) BUN 16 (9-16) mg/dL Creatinine 0.74 (0.5-1.4) mg/dL Estim Creat Clear Calc 71.7 Estimated GFR > 60 Random Glucose 180 H (60-115) mg/dL Calcium 7.8 L (8.4-10.2) mg/dL Magnesium 1.9 (1.6-2.6) mg/dL Total Bilirubin 0.8 (0.0-1.0) mg/dL Direct Bilirubin 0.3 (0.0-0.5) mg/dL AST 24 (5-31) U/L ALT 9 (0-31) U/L Alkaline Phosphatase 66 (39-117) U/L Troponin I High Sens 4.5 (<3.5-17.0) ng/L NT-Pro-B Natriuret Pep 743.6 H (<300) pg/mL Total Protein 7.2 (6.5-8.0) g/dL Albumin 2.8 L (3.5-5.0) g/dL Stool Occult Blood NEGATIVE (NEGATIVE) Influenza Type A (PCR) NEGATIVE (Negative) Influenza Type B (PCR) NEGATIVE (Negative) RSV RNA Qual (PCR) NEGATIVE (Negative) SARS-CoV-2 RNA (RT-PCR) NEGATIVE (Negative) Blood Type A Positive Antibody Screen NEGATIVE Independent Interpretation I performed an independent interpretation of an: EKG (Sinus heart rate is 70 ID QRS QTC normal no acute ST segment elevation) and CT Scan (CTA showed no large PE there is question something in the right upper lobe of the lung) Radiology Impression Discussion of test interpretation with radiology: I have reviewed the radiologist's reading. External Record Review External record reviewed: Inpatient record and Office record Chronic Conditions History of breast cancer history of diastolic heart failure. Social Determinants Patient?s care significantly limited by Social Determinants of Health including: Problems related to primary support group Discharge Plan Discharge Clinical Impression: Congestive heart failure, Anemia Patient Disposition: Admitted As Inpatient
[2025-01-15 11:41] VITALS: BP 202/81; PULSE 91; RESP 28; TEMP 37.2; O2SAT 94; BMI 29.4
--- NOTE | 2025-01-15 11:45 | ECG_ITS ---
Test Reason : DYSPNEA Blood Pressure : */* mmHG Vent. Rate : 68 BPM Atrial Rate : * BPM P-R Int : * ms QRS Dur : 68 ms QT Int : 396 ms P-R-T Axes : * 33 20 degrees QTcB Int : 421 ms Accelerated Junctional rhythm Low voltage QRS Cannot rule out Anterior infarct , age undetermined Abnormal ECG When compared with ECG of 26-Nov-2024 12:08, Nonspecific T wave abnormality no longer evident in Lateral leads Referred By: Sylvia Kapoor Electronically Signed By: Robb Jean-Baptiste
[2025-01-15 12:12] VITALS: BP 129/55; PULSE 64; RESP 19; TEMP 36.8; O2SAT 98
[2025-01-15 12:42] LABS: Hematocrit 25.8 % (37.0-47.0); Hemoglobin 7.2 g/dl (12.0-16.0); Imm Gran Abs Auto 0.00 X10*3/uL (0.00-0.03); Imm Gran Pct Auto 0.0 % (0.0-0.4); Lymphocytes Absolute Auto 0.2 X10*3/uL (1.2-4.9); MANUAL DIFF FLAG SCAN; Mean Corpuscular HGB Conc 27.9 g/dl (31.0-35.0); Mean Corpuscular Hemoglobin 22.4 pg (27.0-33.0); Mean Corpuscular Volume 80.1 fL (80.0-98.0); NRBC Abs Auto 0.000 X10*3/uL (0.0-0.012); NRBC Pct Auto 0.0 /100WBC (0.0-0.2); Red Blood Count 3.22 X10*6/uL (4.20-5.50); SCAN SMEAR FLAG 1
--- NOTE | 2025-01-15 12:42 | PC.NURSE ---
Patient has a Power Port placed in left chest accessed at 1235pm 01/15/25 by this RN. Labs drawn and sent.
[2025-01-15 12:43] LABS: Platelet Count 51 X10*3/uL (160-400); Venous Blood Gas Refer to POC result; White Blood Count 1.0 X10*3/uL (4.8-10.8)
[2025-01-15 12:44] LABS: VBG HCO3 23 mmol/L (22-26)
[2025-01-15 12:55] LABS: Alanine Aminotransferase 9 U/L (0-31); Albumin Level 2.8 g/dL (3.5-5.0); Alkaline Phosphatase 66 U/L (39-117); Anion Gap 8 (12-20); Aspartate Amino Transferase 24 U/L (5-31); Blood Urea Nitrogen 16 mg/dL (9-16); Calcium 7.8 mg/dL (8.4-10.2); Carbon Dioxide 19 mmol/L (22-29); Chloride 116 mmol/L (96-108); Creatinine Clr Calc Pharmacy 71.7; Estimated Glomerular Filt Rate > 60; Magnesium 1.9 mg/dL (1.6-2.6); Potassium 3.8 mmol/L (3.3-5.1); Sodium 139 mmol/L (135-145); Total Protein 7.2 g/dL (6.5-8.0)
[2025-01-15 13:02] LABS: Troponin-I High Sensitivity 4.5 ng/L (<3.5-17.0)
[2025-01-15 13:19] LABS: Resp Syncy Virus RNA Qual PCR NEGATIVE (Negative); SARS COV2 PCR INHOUSE NEGATIVE (Negative)
--- OUTSIDE RECORDS SUMMARY | 2025-01-15 14:16 | XMS_ITS | Clinical Summary ---
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 Active vitamins A,C,S-bddk-ojcvgs ([employer] AREDS) 14,320-226-200 whur-bk-mbdw Cap Take 1 capsule by mouth 2 [...] HEALTH SAFETY NET PARTIAL MEDICARE [facility] [place]IC[place] [address] HEALTH SAFETY NET PARTIAL MEDICARE RAILROAD Member Subscriber Plan / Payer (Ef fective 2022-) Name:Kate Almaguer Member ID:[id number] Relation to Subscriber:Self Name:Kate Almaguer Subscriber ID:[id number] Payer ID:[id number] Group ID:Not on file Type:Medicare Address: [place] [phone] [facility] MEDICARE SUPPLEMENT [facility] PARTIAL MEDICARE RAILROAD [facility] MEDICARE SUPPLEMENT [facility] [place] [address] [facility] SAFETY NET PARTIAL MEDICARE [facility] Member Subscriber Plan / Payer (Ef fective 2022-Present) Name:Kate Almaguer Member ID:[id number] Relation to Subscriber:Self Name:Kate Almaguer Subscriber ID:[id number] Payer ID:[id number] Group ID:Not on file Type:Medicare Address: [address] MEDICARE SUPPLEMENT HEALTH SAFETY NET PARTIAL MEDICARE [facility] MEDICARE SUPPLEMENT [facility] [place] [phone] HEALTH SAFETY NET PARTIAL MEDICARE [facility] MEDICARE SUPPLEMENT [facility] [place] [address] Care Teams Team Assembly Line Machine Operator Relationship Specialty Start Date End Date Leslie Washington NP [address] [place] [address] [place] [id number] PCP - General 10/05/21 Additional Source Comments The information contained in this document represents components of the legal health record. It is not the complete legal health record.[facility]
[2025-01-15 15:23] VITALS: BP 141/70; PULSE 63; RESP 12; O2SAT 96
[2025-01-15 16:28] LABS: NT Pro B Type Natriuretic Pept 743.6 pg/mL (<300)
[2025-01-15] MEDS: iohexoL 350 MG/ML 100 ML INFUS..BTL IV (16:53)
--- NOTE | 2025-01-15 18:09 | PC.NURSE ---
88% on RA with ambulation visibly SOB , able to recover on 95% on RA when sitting on edge of bed
[2025-01-15 18:53] LABS: OBS Int Ctl Valid YES; OBS1 NEGATIVE (NEGATIVE)
--- NOTE | 2025-01-15 19:21 | PC.NURSE ---
this rn assumed care of pt, pt a&ox4, respirations even and unlabored. pt resting in stretcher, offers no complaints at this time. awaiting admit orders
--- NOTE | 2025-01-15 19:52 | PHA.MEDREC ---
Addendum entered by Marisa Izaguirre RPh 01/15/25 20:14: Reviewed by [facility]. Original Note: Pharmacy Consult ? Medication Reconciliation Pharmacy has completed the medication reconciliation. Patient had a list of her medications on her phone. Patient states she is no longer taking Hydroxyzine 25 mg, Tacrolimus oint, and Xeljanz 11 mg. Patient last had her medications 01/12/25 due to her not feeling well after getting her IVIG.
[2025-01-15 20:20] VITALS: BP 169/66; PULSE 82; RESP 25; TEMP 37.1; O2SAT 97
[2025-01-15 21:10] VITALS: BP 163/67
[2025-01-15] MEDS: Furosemide 40 MG/4 ML VIAL IVPUSH (21:10)
[2025-01-15] MEDS: Betamethasone Dip Aug 0.05% Cr 15 GM TUBE 1 APPL TOPICAL (21:11)
[2025-01-15 21:23] LABS: Hematocrit 27.3 % (37.0-47.0); Hemoglobin 7.7 g/dl (12.0-16.0); Imm Gran Abs Auto 0.00 X10*3/uL (0.00-0.03); Imm Gran Pct Auto 0.0 % (0.0-0.4); Lymphocytes Absolute Auto 0.2 X10*3/uL (1.2-4.9); MANUAL DIFF FLAG SCAN; Mean Corpuscular HGB Conc 28.2 g/dl (31.0-35.0); Mean Corpuscular Hemoglobin 22.3 pg (27.0-33.0); Mean Corpuscular Volume 79.1 fL (80.0-98.0); NRBC Abs Auto 0.000 X10*3/uL (0.0-0.012); NRBC Pct Auto 0.0 /100WBC (0.0-0.2); Red Blood Count 3.45 X10*6/uL (4.20-5.50); SCAN SMEAR FLAG 1
[2025-01-15 21:33] LABS: Platelet Count 62 X10*3/uL (160-400)
[2025-01-15 21:39] LABS: White Blood Count 1.0 X10*3/uL (4.8-10.8)
--- NOTE | 2025-01-15 21:42 | PC.NURSE ---
pt medicated per mar, tolerated well. pt placed on hospital bed for comfort and neutrophilic precautions placed as pt WBC critical is 0.96
[2025-01-15 21:44] VITALS: BP 136/79; PULSE 78; RESP 15; TEMP 36.7; O2SAT 98
[2025-01-15 21:48] LABS: Anion Gap 11 (12-20); Blood Urea Nitrogen 16 mg/dL (9-16); Calcium 8.2 mg/dL (8.4-10.2); Carbon Dioxide 21 mmol/L (22-29); Chloride 112 mmol/L (96-108); Creatinine Clr Calc Pharmacy 71.7; Estimated Glomerular Filt Rate > 60; Potassium 3.8 mmol/L (3.3-5.1); Sodium 140 mmol/L (135-145)
[2025-01-15 22:03] LABS: Procalcitonin 0.03 ng/mL
--- NOTE | 2025-01-15 23:35 | PM.IMHP ---
History of Present Illness Date of Service: 01/15/25 Attending physician on admission: Alejandro De La Torre Chief Complaint: SOB with exertion The patient is a 69-year-old female with a past medical history significant for HFrEF with grade 3 diastolic dysfunction, history of breast cancer treated with chemotherapy and radiation in 2021 and 2022, anxiety, depression, hypertension and pancytopenia, who presented to the ED due to shortness of breath with exertion for the past week with a orthopnea. She becomes hypoxic with ambulation. 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 The patient reports she last received IVIG 2-3 days ago but has been on this for many years. She has a a dry cough intermittently. No fever, chills, nausea, vomiting. No sick contacts or recent travel. Review of Systems Constitutional: Constitutional: Denies body ache(s), Denies chills, Reports fatigue, Denies fever(s) and Denies headache(s) Eyes: Eyes: Denies change in vision ENT: Denies headache(s), Denies nasal congestion and Denies throat swelling Cardiovascular: Cardiovascular: Denies chest pain, Denies rapid heart rate, Denies leg edema, Denies lightheadedness and Reports dyspnea Respiratory: Respiratory: Denies chest congestion, Reports cough, Reports dyspnea and Denies wheezing Gastrointestinal: Gastrointestinal: Denies abdominal pain and Denies nausea Genitourinary: Genitourinary: Denies difficulty voiding, Denies dysuria and Denies urinary urgency Musculoskeletal: Musculoskeletal: Denies myalgias Integumentary/Breasts: Skin/Breast: Denies rash Neurologic: Denies confusion and Denies headache(s) Psychiatric: Psychiatric: Denies confusion Endocrine: Endocrine: Reports fatigue Hematologic/Lymphatic: Hematologic/Lymphatic: Denies easy bleeding Allergic/Immunologic: Allergic/Immunologic: Denies throat swelling and Denies wheezing REPLACED BY [facility] Medical History (Updated 01/15/25 @ 23:46 by Bianca Matta PA-C) SIRS (systemic inflammatory response syndrome) Dermatomyositis Acute on chronic heart failure with preserved ejection fraction (HFpEF) Anemia Pancytopenia Long-term current use of intravenous immunoglobulin (IVIG) Plaquenil adverse reaction in therapeutic use Nocturnal cough Pleural effusion History of right breast cancer Axillary adenopathy Bacteremia due to Klebsiella pneumoniae Acute hypokalemia UTI (urinary tract infection) Abdominal pain Atrial arrhythmia CHF (congestive heart failure) Acute diastolic (congestive) heart failure Diarrhea Pancolitis Colitis Nonsustained supraventricular tachycardia Port-A-Cath in place Pain in both feet Pedal edema History of COVID-19 Invasive ductal carcinoma of right breast Breast cancer, right Breast calcification, right Encounter to establish care Lumbar degenerative disc disease Hypertension Major depression, chronic Insomnia Anxiety Functional capacity: independent ambulation Family History Mother No problems noted. Father Breast cancer Bone cancer Brother Substance use disorder Paternal Aunt Breast cancer Surgical History Hx of colonoscopy Status post right breast lumpectomy History of arthroscopic knee surgery History of hysterectomy History of section History of cholecystectomy History of gastric bypass History of fusion of cervical spine History of tonsillectomy Social History Household Members: Spouse and Children Housing: House Are you a primary career development director to a significant other at home: No Do you presently have visiting nurse or other home services: Yes ([facility]) Alcohol intake: former Comment: Pedal Edema and pain- uses cane Patient Tobacco Use Status: Former Tobacco user Tobacco use type: Cigarette Smoked in Last 30 Days: No e-Cigarette/Vaping Use: Never Used Second Hand Smoke Exposure: Yes Use of substances other than those prescribed or required for medical reasons: No Advance Directives: Yes Advance Directives on File: Yes Advance Directives Date on File: 11/28/21 service: No Current occupational status: unemployed and retired Cognitive needs: No Hearing needs: No Vision needs: Yes (glasses) Narrative: No smoking, alcohol or drug use Meds Allergies Allergy/AdvReac Type Severity Reaction Status Date / Time No Known Allergies Allergy Verified 01/15/25 11:43 Active Medications: Current Medications Albuterol/Ipratropium (Albuterol/Iprat 2.5/0.5mg 3 Ml Ampul.Neb) 3 ml INHALE Q4H PRN PRN Reason: Shortness of Breath/Wheezing Benzonatate (Benzonatate 100 Mg Capsule) 100 mg PO TID PRN PRN Reason: Cough Betamethasone Dipropion Augmented (Betamethasone Dip Aug 0.05% Cr 15 Gm Tube) 1 appl TOPICAL BID [facility] Last Admin: 01/15/25 21:11 Dose: 1 appl Calcium Carbonate (Calcium Carbonate 750 Mg Tab.Chew) 750 mg PO Q4H PRN PRN Reason: Heartburn Empagliflozin (Empagliflozin 10 Mg Tablet) 10 mg PO DAILY [facility] Escitalopram Oxalate (Escitalopram Oxalate 10 Mg Tablet) 10 mg PO DAILY [facility] Fluticasone/Vilanterol (Fluticasone/Vilanterol 200/25 Blst.W.Dev) 1 puff INHALE RDAILY [facility] Furosemide (Furosemide 40 Mg Tablet) 40 mg PO BIDWM CHELSIE; Protocol Loratadine (Loratadine 10 Mg Tablet) 10 mg PO DAILY [facility] Magnesium Hydroxide (Milk Of Magnesia 30 Ml Oral.Susp) 30 ml PO DAILY PRN PRN Reason: Constipation Melatonin (Melatonin 3 Mg Tablet) 6 mg PO BEDTIME PRN PRN Reason: Insomnia Ondansetron HCl (Ondansetron Hcl 4 Mg/2 Ml Vial) 4 mg IVPUSH Q8H PRN PRN Reason: Nausea and Vomiting Oxycodone HCl (Oxycodone Hcl Immed Release 5 Mg Tablet) 5 mg PO Q6H PRN PRN Reason: Pain, Severe (Pain Scale 7-10) Sodium Chloride (0.9 % Sodium Chloride Flush 3 Ml Syringe) 3 ml IVFLUSH QSHIFT [facility] Tamoxifen Citrate (Tamoxifen Citrate 10 Mg Tablet) 20 mg PO DAILY [facility] Home Medications ?Medication ?Instructions ?Recorded ?Confirmed ?Last Taken ?Type cetirizine 10 mg tablet 20 mg PO DAILY 09/09/24 01/15/25 01/12/25 History tamoxifen 20 mg tablet 20 mg PO DAILY 09/09/24 01/15/25 01/12/25 History potassium chloride 20 mEq 20 meq PO BID 11/26/24 01/15/25 01/12/25 History tablet,extended release empagliflozin 10 mg tablet 10 mg PO DAILY 01/15/25 01/15/25 01/12/25 History (Jardiance) fluticasone furoate 200 1 ea inhalation DAILY 01/15/25 01/15/25 01/12/25 History mcg-vilanterol 25 mcg/dose inhalation powder (Breo Ellipta) Physical Exam Vital Signs and Narrative: Vital Signs: Last Vital Signs Temp 98.1 F 01/15/25 21:44 Pulse 78 01/15/25 21:44 Resp 15 01/15/25 21:44 BP 136/79 01/15/25 21:44 Pulse Ox 98 01/15/25 21:44 O2 Del Method Room Air 01/15/25 21:44 O2 Flow Rate 88 01/15/25 18:09 BMI result Body Mass Index 29.4 General: AOx3, no acute distress Resp: diminished throughout, no wheezing CVS: S1, S2, RRR GI: +BS, NT, no distention Skin: Warm, dry Neuro: Cranial nerves II-XII grossly intact bilaterally. Motor grossly intact bilaterally Extremities: No pitting edema Psych: Appropriate affect Const: General: No confusion Orientation/consciousness: No confusion Neuro: General: No confusion Results Labs 01/15/25 21:11 01/15/25 21:11 Labs: Laboratory Results - last 24 hr 01/15/25 01/15/25 01/15/25 12:35 12:39 18:23 MCV 80.1 MCH 22.4 L MCHC 27.9 L RDW 16.7 H Plt Count 51 L MPV 9.9 Immature Gran % (Auto) 0.0 Neut % (Auto) 60.0 Lymph % (Auto) 20.0 [place] % (Auto) 18.9 H Eos % (Auto) 0.0 Baso % (Auto) 1.1 Lymph # (Auto) 0.2 L [place] # (Auto) 0.2 Eos # (Auto) 0.0 Baso # (Auto) 0.0 Abs Immat Gran (auto) 0.00 Absolute Neuts (auto) 0.6 L Absolute Nucleated RBC 0.000 Nucleated RBC % (auto) 0.0 Smear Tech's Comments VERIFIED VBG pH 7.39 VBG pCO2 37 VBG pO2 62 VBG HCO3 23 VBG O2 Saturation TNP VBG Base Excess -1.6 Anion Gap 8 L Estim Creat Clear Calc 71.7 Estimated GFR > 60 Random Glucose 180 H Lactic Acid Calcium 7.8 L Magnesium 1.9 Total Bilirubin 0.8 Direct Bilirubin 0.3 AST 24 ALT 9 Alkaline Phosphatase 66 Troponin I High Sens 4.5 NT-Pro-B Natriuret Pep 743.6 H Total Protein 7.2 Albumin 2.8 L Procalcitonin Stool Occult Blood NEGATIVE Influenza Type A (PCR) NEGATIVE Influenza Type B (PCR) NEGATIVE RSV RNA Qual (PCR) NEGATIVE SARS-CoV-2 RNA (RT-PCR) NEGATIVE Blood Type A Positive Antibody Screen NEGATIVE 01/15/25 21:11 MCV 79.1 L MCH 22.3 L MCHC 28.2 L RDW 16.7 H Plt Count 62 L MPV 10.6 Immature Gran % (Auto) 0.0 Neut % (Auto) 57.3 Lymph % (Auto) 24.0 [place] % (Auto) 16.7 H Eos % (Auto) 1.0 Baso % (Auto) 1.0 Lymph # (Auto) 0.2 L [place] # (Auto) 0.2 Eos # (Auto) 0.0 Baso # (Auto) 0.0 Abs Immat Gran (auto) 0.00 Absolute Neuts (auto) 0.6 L Absolute Nucleated RBC 0.000 Nucleated RBC % (auto) 0.0 Smear Tech's Comments VERIFIED VBG pH VBG pCO2 VBG pO2 VBG HCO3 VBG O2 Saturation VBG Base Excess Anion Gap 11 L Estim Creat Clear Calc 71.7 Estimated GFR > 60 Random Glucose 138 H Lactic Acid 1.1 Calcium 8.2 L Magnesium Total Bilirubin Direct Bilirubin AST ALT Alkaline Phosphatase Troponin I High Sens NT-Pro-B Natriuret Pep Total Protein Albumin Procalcitonin 0.03 Stool Occult Blood Influenza Type A (PCR) Influenza Type B (PCR) RSV RNA Qual (PCR) SARS-CoV-2 RNA (RT-PCR) Blood Type Antibody Screen Imaging Radiologist's Impressions: Impressions Chest X-Ray 01/15/25 11:51 IMPRESSION: 1. Chest port in good position. 2. Mild interstitial pulmonary edema. Small right pleural effusion. 3. Right basilar airspace opacity, either representing atelectasis, alveolar edema, or possibly pneumonia in the appropriate clinical setting. Electronically signed by: Nnamdi Lee MD 01/15/2025 12:01 PM [facility] Chest CTA 01/15/25 16:44 IMPRESSION: There is spiculated lesion in the anterior right upper lobe measuring 1.1 x 2.2 cm contacting pleura that could represent neoplasm. Consider PET/CT or consultation for biopsy. Moderate right and small left pleural effusions have increased since the prior examination and there is associated compressive atelectasis. There is pulmonary vascular congestion. Splenomegaly. There are no filling defects to suggest pulmonary embolus. Fleischner guidelines were followed. Electronically signed by: Dennis Borja MD 01/15/2025 05:35 PM [facility] Assessment and Plan (1) Acute respiratory failure with hypoxia: Status: Acute (2) SIRS (systemic inflammatory response syndrome): Status: Acute (3) Acute on chronic heart failure with preserved ejection fraction (HFpEF): Status: Acute (4) Pleural effusion: Status: Acute (5) Lesion of lung: Status: Acute (6) Chronic anemia: Status: Acute Plan The patient is a 69-year-old female with a past medical history significant for HFrEF with grade 3 diastolic dysfunction, history of breast cancer treated with chemotherapy and radiation in 2021 and 2022, anxiety, depression, hypertension and pancytopenia, who presented to the ED due to shortness of breath with exertion for the past week with a orthopnea. Acute hypoxic respiratory failure, SIRS, acute CHF exacerbation with pleural effusion and new lung lesion - titrate O2 PRN - singular episode of tachycardia, chronic leukopenia, not likely sepsis, no infection identified - lasix 40mg IV x1 then continue 40mg PO BID - oncology consult for new lung lesion - follow CBC and BMP chronic pancytopenia - H+H stable, just above transfusion threshold, no acitve bleeding sources - monitor CBC - check iron, B12, folate, OBSx1 hx breast cancer - followed by Dr Hernández - tamoxifen anxiety/depression - citalopram, clonidine HTN - no home meds, takes clonidine for anxiety mild COPD, no acute exacerbation - duonebs PRN full code VTE prophy: SCDs due to thrombocytopenia Pt with acute hypoxic respiratory failure, sirs, acute CHF exacerbation with pleural effusion and new lung lesion, requiring admission for at least 2 midnights stay for diuresis, further evaluation and monitoring. Quality Stroke Does the patient have a stroke diagnosis?: No VTE Prior VTE?: No VTE Risk Level:: Medical - moderate - high VTE Device Contraindication: N/A - Device Ordered VTE Drug Contraindication: Treatment Not Indicated
[2025-01-15] MEDS: oxyCODONE HCl Immed Release 5 MG TABLET PO (23:47)
[2025-01-16] VITALS (8 sets, daily range): BP systolic 96–156; BP diastolic 52–72; PULSE 54–83; RESP 16–20; TEMP 36.9–37.7; O2SAT 93–98; BMI 30.5
[2025-01-16] MEDS: 0.9 % Sodium Chloride Flush 3 ML SYRINGE IVFLUSH ×2 (01:02→15:32)
[2025-01-16 06:27] LABS: Hematocrit 26.4 % (37.0-47.0); Hemoglobin 7.6 g/dl (12.0-16.0); Imm Gran Abs Auto 0.00 X10*3/uL (0.00-0.03); Imm Gran Pct Auto 0.0 % (0.0-0.4); Lymphocytes Absolute Auto 0.2 X10*3/uL (1.2-4.9); MANUAL DIFF FLAG SCAN; Mean Corpuscular HGB Conc 28.8 g/dl (31.0-35.0); Mean Corpuscular Hemoglobin 22.4 pg (27.0-33.0); Mean Corpuscular Volume 77.6 fL (80.0-98.0); NRBC Abs Auto 0.000 X10*3/uL (0.0-0.012); NRBC Pct Auto 0.0 /100WBC (0.0-0.2); Red Blood Count 3.40 X10*6/uL (4.20-5.50); SCAN SMEAR FLAG 1; White Blood Count 1.2 X10*3/uL (4.8-10.8)
[2025-01-16 06:28] LABS: Platelet Count 59 X10*3/uL (160-400)
[2025-01-16 06:43] LABS: Anion Gap 10 (12-20); Blood Urea Nitrogen 16 mg/dL (9-16); Calcium 8.3 mg/dL (8.4-10.2); Carbon Dioxide 24 mmol/L (22-29); Chloride 109 mmol/L (96-108); Creatinine Clr Calc Pharmacy 64.9; Estimated Glomerular Filt Rate > 60; Iron 53 mcg/dL (30-160); Magnesium 1.8 mg/dL (1.6-2.6); Percent Iron Saturation 16 % (15-50); Potassium 3.7 mmol/L (3.3-5.1); Sodium 139 mmol/L (135-145); Total Iron Binding Capacity 326 mcg/dL (228-428); Unsaturated Iron Binding 273 ug/dL
[2025-01-16 07:18] LABS: Folate 10.2 ng/mL (> or = 4.0); Vitamin B12 344 pg/mL (200-900)
[2025-01-16] MEDS: Betamethasone Dip Aug 0.05% Cr 15 GM TUBE 1 APPL TOPICAL ×2 (09:50→21:09)
--- NOTE | 2025-01-16 10:25 | MHC.CM.PN ---
IMM 01/16/25, Pt lives with her family, PCP confirmed: Dr. Vance. HCP is on file and confirmed: Andrzej. Pt. does not use home health services, for DME, sometimes uses a cane. Family to transport her home at [place], DCP: home, self care, CM to follow for DC needs.
--- NOTE | 2025-01-16 11:19 | PC.NURSE ---
pt ambulated to the bathroom O2 sat 92-93% RA. Pt noted to SOB with ambulation but reports she feels better than yesterday.
[2025-01-16] MEDS: Fluticasone/Vilanterol 200/25 BLST.W.DEV 1 PUFF INHALE (11:20)
--- NOTE | 2025-01-16 11:45 | HO.PM.IMPN ---
Subjective Subjective Date of Service: 01/16/25 Review of Systems Follow up sob feels better, but sob with activity Physical Exam Exam: Exam: Appearing in no acute distress lung sounds are clear to auscultation heart regular rate rhythm, clear S1, S2 positive bowel sounds, abdomen is soft, nontender neuro patient is alert x3, no focal deficits Vital Signs: Vital Signs: Last Vital Signs Temp 99.1 F 01/16/25 08:00 Pulse 81 01/16/25 11:21 Resp 16 01/16/25 11:21 BP 136/62 01/16/25 08:00 Pulse Ox 95 01/16/25 08:00 O2 Del Method Room Air 01/16/25 08:00 O2 Flow Rate 88 01/15/25 18:09 BMI result Body Mass Index 30.5 Objective Data Active Medications Acetaminophen (Acetaminophen 325 Mg Tablet) 975 mg PO Q6H PRN PRN Reason: Pain, Mild 1-3,fever,headache Last Admin: 01/16/25 07:07 Dose: 975 mg Documented By: LUIS ANTONIO Albuterol/Ipratropium (Albuterol/Iprat 2.5/0.5mg 3 Ml Ampul.Neb) 3 ml INHALE Q4H PRN PRN Reason: Shortness of Breath/Wheezing Benzonatate (Benzonatate 100 Mg Capsule) 100 mg PO TID PRN PRN Reason: Cough Betamethasone Dipropion Augmented (Betamethasone Dip Aug 0.05% Cr 15 Gm Tube) 1 appl TOPICAL BID [facility] Last Admin: 01/16/25 09:50 Dose: 1 appl Documented By: CHARLEE Calcium Carbonate (Calcium Carbonate 750 Mg Tab.Chew) 750 mg PO Q4H PRN PRN Reason: Heartburn Empagliflozin (Empagliflozin 10 Mg Tablet) 10 mg PO DAILY [facility] Last Admin: 01/16/25 07:59 Dose: 10 mg Documented By: CHARLEE Escitalopram Oxalate (Escitalopram Oxalate 10 Mg Tablet) 10 mg PO DAILY [facility] Last Admin: 01/16/25 09:50 Dose: 10 mg Documented By: CHARLEE Fluticasone/Vilanterol (Fluticasone/Vilanterol 200/25 Blst.W.Dev) 1 puff INHALE RDAILY [facility] Last Admin: 01/16/25 11:20 Dose: 1 puff Documented By: OSMAN Furosemide (Furosemide 40 Mg Tablet) 40 mg PO BIDWM [facility]; Protocol Last Admin: 01/16/25 07:59 Dose: 40 mg Documented By: CHARLEE Loratadine (Loratadine 10 Mg Tablet) 10 mg PO DAILY [facility] Last Admin: 01/16/25 07:59 Dose: 10 mg Documented By: CHARLEE Magnesium Hydroxide (Milk Of Magnesia 30 Ml Oral.Susp) 30 ml PO DAILY PRN PRN Reason: Constipation Melatonin (Melatonin 3 Mg Tablet) 6 mg PO BEDTIME PRN PRN Reason: Insomnia Ondansetron HCl (Ondansetron Hcl 4 Mg/2 Ml Vial) 4 mg IVPUSH Q8H PRN PRN Reason: Nausea and Vomiting Last Admin: 01/15/25 23:47 Dose: 4 mg Documented By: ROBER Oxycodone HCl (Oxycodone Hcl Immed Release 5 Mg Tablet) 5 mg PO Q6H PRN PRN Reason: Pain, Severe (Pain Scale 7-10) Last Admin: 01/15/25 23:47 Dose: 5 mg Documented By: ROBER Sodium Chloride (0.9 % Sodium Chloride Flush 3 Ml Syringe) 3 ml IVFLUSH QSHIFT [facility] Last Admin: 01/16/25 08:02 Dose: Not Given Documented By: CHARLEE Non-Admin Reason: Patient Refused Tamoxifen Citrate (Tamoxifen Citrate 10 Mg Tablet) 20 mg PO DAILY [facility] Last Admin: 01/16/25 08:00 Dose: 20 mg Documented By: CHARLEE Labs 01/16/25 05:50 01/16/25 05:50 Labs: Laboratory Results - last 24 hr 01/15/25 01/15/25 01/15/25 12:35 12:39 18:23 MCV 80.1 MCH 22.4 L MCHC 27.9 L RDW 16.7 H Plt Count 51 L MPV 9.9 Immature Gran % (Auto) 0.0 Neut % (Auto) 60.0 Lymph % (Auto) 20.0 Mineral % (Auto) 18.9 H Eos % (Auto) 0.0 Baso % (Auto) 1.1 Lymph # (Auto) 0.2 L Mineral # (Auto) 0.2 Eos # (Auto) 0.0 Baso # (Auto) 0.0 Abs Immat Gran (auto) 0.00 Absolute Neuts (auto) 0.6 L Absolute Nucleated RBC 0.000 Nucleated RBC % (auto) 0.0 Smear Tech's Comments VERIFIED VBG pH 7.39 VBG pCO2 37 VBG pO2 62 VBG HCO3 23 VBG O2 Saturation TNP VBG Base Excess -1.6 Anion Gap 8 L Estim Creat Clear Calc 71.7 Estimated GFR > 60 Random Glucose 180 H Lactic Acid Calcium 7.8 L Magnesium 1.9 Iron TIBC % Saturation Unsat Iron Binding Total Bilirubin 0.8 Direct Bilirubin 0.3 AST 24 ALT 9 Alkaline Phosphatase 66 Troponin I High Sens 4.5 NT-Pro-B Natriuret Pep 743.6 H Total Protein 7.2 Albumin 2.8 L Vitamin B12 Folate Procalcitonin Stool Occult Blood NEGATIVE Influenza Type A (PCR) NEGATIVE Influenza Type B (PCR) NEGATIVE RSV RNA Qual (PCR) NEGATIVE SARS-CoV-2 RNA (RT-PCR) NEGATIVE Blood Type A Positive Antibody Screen NEGATIVE 01/15/25 01/16/25 21:11 05:50 MCV 79.1 L 77.6 L MCH 22.3 L 22.4 L MCHC 28.2 L 28.8 L RDW 16.7 H 16.7 H Plt Count 62 L 59 L MPV 10.6 10.2 Immature Gran % (Auto) 0.0 0.0 Neut % (Auto) 57.3 69.2 Lymph % (Auto) 24.0 18.3 L Mineral % (Auto) 16.7 H 11.7 H Eos % (Auto) 1.0 0.0 Baso % (Auto) 1.0 0.8 Lymph # (Auto) 0.2 L 0.2 L Mineral # (Auto) 0.2 0.1 Eos # (Auto) 0.0 0.0 Baso # (Auto) 0.0 0.0 Abs Immat Gran (auto) 0.00 0.00 Absolute Neuts (auto) 0.6 L 0.8 L Absolute Nucleated RBC 0.000 0.000 Nucleated RBC % (auto) 0.0 0.0 Smear Tech's Comments VERIFIED VERIFIED VBG pH VBG pCO2 VBG pO2 VBG HCO3 VBG O2 Saturation VBG Base Excess Anion Gap 11 L 10 L Estim Creat Clear Calc 71.7 64.9 Estimated GFR > 60 > 60 Random Glucose 138 H 124 H Lactic Acid 1.1 Calcium 8.2 L 8.3 L Magnesium 1.8 Iron 53 TIBC 326 % Saturation 16 Unsat Iron Binding 273 Total Bilirubin Direct Bilirubin AST ALT Alkaline Phosphatase Troponin I High Sens NT-Pro-B Natriuret Pep Total Protein Albumin Vitamin B12 344 Folate 10.2 Procalcitonin 0.03 Stool Occult Blood Influenza Type A (PCR) Influenza Type B (PCR) RSV RNA Qual (PCR) SARS-CoV-2 RNA (RT-PCR) Blood Type Antibody Screen Assessment and Plan (1) Hypertension: Status: Acute Plan 69-year-old female with a past medical history significant for HFrEF with grade 3 diastolic dysfunction, history of breast cancer treated with chemotherapy and radiation in 2021 and 2022, anxiety, depression, hypertension and pancytopenia, who presented to the ED due to shortness of breath with exertion for the past week with a orthopnea. Acute hypoxic respiratory failure secondary to pleural effusion, new lung lesion Chest CT showing spiculated lesion in the anterior right upper lobe with moderate right and small left pleural effusion lasix 40mg IV x1 then continue 40mg PO BID oncology consult for new lung lesion Discussed with pulmonology, plan for thoracentesis on Saturday, send fluid for cytology Continue supplemental oxygen as needed to keep oxygen saturation greater than 90% chronic pancytopenia H+H stable, just above transfusion threshold, no active bleeding sources monitor CBC hx breast cancer followed by Dr Hernández tamoxifen anxiety/depression citalopram, clonidine HTN no home meds, takes clonidine for anxiety mild COPD, no acute exacerbation duonebs PRN full code VTE prophy: SCDs due to thrombocytopenia Pt with acute hypoxic respiratory failure, sirs, acute CHF exacerbation with pleural effusion and new lung lesion, requiring admission for at least 2 midnights stay for diuresis, further evaluation and monitoring. Quality Stroke Does the patient have a stroke diagnosis?: No VTE Prior VTE?: No VTE Risk Level:: Medical - moderate - high VTE Device Contraindication: N/A - Device Ordered VTE Drug Contraindication: Treatment Not Indicated
--- NOTE | 2025-01-16 14:26 | PM.HEMONCCN ---
Subjective - Subjective Chief complaint: Consult for: New lung mass. Patient: known to practice within the last 3 years Consult date: 01/16/25 Requesting Physician: Bhavani Hu. Primary Care Provider: Gerald Vance MD Family Provider: Gerald Vance MD. Medical Summary: DIAGNOSIS: 1. LUNG MASS. 2. H/O BREAST CANCER. [place] Operator Utilized?: No - Cymro Speaking HPI - Consult Narrative Reason for consult: Consult for: New lung mass. Narrative: Kate Almaguer is a 70 year old pleasant lady with a history of breast cancer. She was treated with chemotherapy and radiation in 2021 and 2022. Past medical history significant for HFrEF with grade 3 diastolic dysfunction, , anxiety, depression, hypertension and pancytopenia, who presented to the ED due to shortness of breath with exertion for the past week with a orthopnea. She becomes hypoxic with ambulation. 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 The patient reports she last received IVIG 2-3 days ago but has been on this for many years. She has a a dry cough intermittently. No fever, chills, nausea, vomiting. No sick contacts or recent travel. Medical History:) SIRS (systemic inflammatory response syndrome) Dermatomyositis Acute on chronic heart failure with preserved ejection fraction (HFpEF) Anemia Pancytopenia Long-term current use of intravenous immunoglobulin (IVIG) Plaquenil adverse reaction in therapeutic use Nocturnal cough Pleural effusion History of right breast cancer Axillary adenopathy Bacteremia due to Klebsiella pneumoniae Acute hypokalemia UTI (urinary tract infection) Abdominal pain Atrial arrhythmia CHF (congestive heart failure) Acute diastolic (congestive) heart failure Diarrhea Pancolitis Colitis Nonsustained supraventricular tachycardia Port-A-Cath in place Pain in both feet Pedal edema History of COVID-19 Invasive ductal carcinoma of right breast Breast cancer, right Breast calcification, right Encounter to establish care Lumbar degenerative disc disease Hypertension Major depression, chronic Insomnia Anxiety Functional capacity: independent ambulation Family History: Mother No problems noted. Father Breast cancer Bone cancer. Surgical History:) Hx of colonoscopy Status post right breast lumpectomy History of arthroscopic knee surgery History of hysterectomy History of section History of cholecystectomy History of gastric bypass History of fusion of cervical spine History of tonsillectomy Social History:) Household Members: Spouse and Children Housing: House Are you a primary healthcare advisory services manager to a significant other at home: No Do you presently have visiting nurse or other home services: Yes ([facility]) Alcohol intake: former Comment: Pedal Edema and pain- uses cane Patient Tobacco Use Status: Former Tobacco user Tobacco use type: Cigarette Smoked in Last 30 Days: No e-Cigarette/Vaping Use: Never Used Review of Systems - Constitutional Reports no additional constitutional complaints, Reports fatigue, Reports weakness, Reports weight loss - Eyes Reports no additional eye complaints - ENT Reports no additional ear, nose, mouth, and throat complaints - Cardiovascular Reports no additional cardiovascular complaints - Respiratory Reports no additional respiratory complaints - Gastrointestinal Reports no additional gastrointestinal complaints - Genitourinary Reports no additional female genitourinary complaints - Musculoskeletal Reports no additional musculoskeletal complaints - Integumentary/Breasts Skin/Breast: Reports no additional skin complaints - Neurologic Denies confusion, Denies headache(s) - Psychiatric Reports no additional psychiatric complaints - Endocrine Reports no additional endocrine complaints - Hematologic/Lymphatic Reports no additional hematologic/lymphatic complaints - Allergic/Immunologic Reports no additional allergic/immunologic complaints Oncology Screenings - ECOG Performance Status [facility] Performance Status: [facility] Medical History: Medical History (Last Updated 01/15/25 @ 23:46 by Bianca Matta PA-C) Abdominal pain Acute diastolic (congestive) heart failure Acute hypokalemia Acute on chronic heart failure with preserved ejection fraction (HFpEF) Anemia Anxiety Atrial arrhythmia Axillary adenopathy Bacteremia due to Klebsiella pneumoniae Breast calcification, right Breast cancer, right CHF (congestive heart failure) Colitis Dermatomyositis Diarrhea Encounter to establish care History of COVID-19 History of right breast cancer Hypertension Insomnia Invasive ductal carcinoma of right breast Long-term current use of intravenous immunoglobulin (IVIG) Lumbar degenerative disc disease Major depression, chronic Nocturnal cough Nonsustained supraventricular tachycardia Pain in both feet Pancolitis Pancytopenia Pedal edema Plaquenil adverse reaction in therapeutic use Pleural effusion Port-A-Cath in place SIRS (systemic inflammatory response syndrome) UTI (urinary tract infection) Functional capacity: independent ambulation Patient : No Family History: Family History (Last Reviewed 01/07/25 @ 14:12 by TISHA Hicks) Mother No problems noted. Father Breast cancer Bone cancer Brother Substance use disorder Paternal Aunt Breast cancer Surgical History: Surgical History (Last Reviewed 01/07/25 @ 14:12 by TISHA Hicks) History of arthroscopic knee surgery History of section History of cholecystectomy History of fusion of cervical spine History of gastric bypass History of hysterectomy History of tonsillectomy Hx of colonoscopy Status post right breast lumpectomy Social History: Social History (Last Reviewed 01/07/25 @ 14:12 by TISHA Hicks) Living Situation History: Household Members: Children Household Members Other:: boyfriend and grandchildren Housing: House Are you a primary healthcare advisory services manager to a significant other at home: No Do you presently have visiting nurse or other home services: No Alcohol History Details: 1. How often do you have a drink containing alcohol?: a. Never 3. How often do you have six or more drinks on one occasion?: a. Never AUDIT-C Alcohol total score: 0 Currently Displaying Signs/Symptoms of Alcohol Withdrawal: No Tobacco History: Patient Tobacco Use Status: Former Tobacco user Tobacco use type: Cigarette Smoked in Last 30 Days: No e-Cigarette/Vaping Use: Former Use Patient Interested in Nicotine Replacement: No Second Hand Smoke Exposure: No Substance Use History: Use of substances other than those prescribed or required for medical reasons: No Currently Displaying Signs/Symptoms of Drug Intoxication Withdrawal: No Domestic Abuse History: Have you been hit, kicked, punched, or otherwise hurt by someone within the past year? If so, by whom?: No Do you feel safe in your current relationship?: Yes Is there a partner from a previous relationship who is making you feel unsafe now?: No Are you made to feel afraid or neglected: No Advance Directives: Advance Directives: Yes Advance Directives on File: Yes Advance Directives Date on File: 11/28/21 Homicidal Assessment: Do you have a plan to hurt others: No Plan Nutrition Assessment: Recently lost weight without trying: No Eating poorly because of decreased appetite: No Nutrition Risks: No Nutritional Risk Patient : No : No Poor oral hygiene: No Occupation Assessmet: service: No Current occupational status: unemployed Current occupational status: retired Home Medications and Allergies Current Medications: Current Medications Acetaminophen (Acetaminophen 325 Mg Tablet) 975 mg PO Q6H PRN PRN Reason: Pain, Mild 1-3,fever,headache Last Admin: 01/16/25 07:07 Dose: 975 mg Albuterol/Ipratropium (Albuterol/Iprat 2.5/0.5mg 3 Ml Ampul.Neb) 3 ml INHALE Q4H PRN PRN Reason: Shortness of Breath/Wheezing Benzonatate (Benzonatate 100 Mg Capsule) 100 mg PO TID PRN PRN Reason: Cough Betamethasone Dipropion Augmented (Betamethasone Dip Aug 0.05% Cr 15 Gm Tube) 1 appl TOPICAL BID [facility] Last Admin: 01/16/25 09:50 Dose: 1 appl Calcium Carbonate (Calcium Carbonate 750 Mg Tab.Chew) 750 mg PO Q4H PRN PRN Reason: Heartburn Empagliflozin (Empagliflozin 10 Mg Tablet) 10 mg PO DAILY [facility] On Hold: 01/16/25 11:49 Last Admin: 01/16/25 07:59 Dose: 10 mg Escitalopram Oxalate (Escitalopram Oxalate 10 Mg Tablet) 10 mg PO DAILY [facility] Last Admin: 01/16/25 09:50 Dose: 10 mg Fluticasone/Vilanterol (Fluticasone/Vilanterol 200/25 Blst.W.Dev) 1 puff INHALE RDAILY [facility] Last Admin: 01/16/25 11:20 Dose: 1 puff Furosemide (Furosemide 40 Mg Tablet) 40 mg PO BIDWM [facility]; Protocol Last Admin: 01/16/25 07:59 Dose: 40 mg Loratadine (Loratadine 10 Mg Tablet) 10 mg PO DAILY [facility] Last Admin: 01/16/25 07:59 Dose: 10 mg Magnesium Hydroxide (Milk Of Magnesia 30 Ml Oral.Susp) 30 ml PO DAILY PRN PRN Reason: Constipation Melatonin (Melatonin 3 Mg Tablet) 6 mg PO BEDTIME PRN PRN Reason: Insomnia Ondansetron HCl (Ondansetron Hcl 4 Mg/2 Ml Vial) 4 mg IVPUSH Q8H PRN PRN Reason: Nausea and Vomiting Last Admin: 01/15/25 23:47 Dose: 4 mg Oxycodone HCl (Oxycodone Hcl Immed Release 5 Mg Tablet) 5 mg PO Q6H PRN PRN Reason: Pain, Severe (Pain Scale 7-10) Last Admin: 01/15/25 23:47 Dose: 5 mg Sodium Chloride (0.9 % Sodium Chloride Flush 3 Ml Syringe) 3 ml IVFLUSH QSHIFT [facility] Last Admin: 01/16/25 08:02 Dose: Not Given Tamoxifen Citrate (Tamoxifen Citrate 10 Mg Tablet) 20 mg PO DAILY [facility] Last Admin: 01/16/25 08:00 Dose: 20 mg Home Medications ?Medication ?Instructions ?Recorded ?Confirmed ?Type cetirizine 10 mg tablet 20 mg PO DAILY 09/09/24 01/15/25 History tamoxifen 20 mg tablet 20 mg PO DAILY 09/09/24 01/15/25 History potassium chloride 20 mEq 20 meq PO BID 11/26/24 01/15/25 History tablet,extended release empagliflozin 10 mg tablet 10 mg PO DAILY 01/15/25 01/15/25 History (Jardiance) fluticasone furoate 200 1 ea inhalation DAILY 01/15/25 01/15/25 History mcg-vilanterol 25 mcg/dose inhalation powder (Breo Ellipta) Allergies Allergy/AdvReac Type Severity Reaction Status Date / Time No Known Allergies Allergy Verified 01/15/25 11:43 Physical Exam Vital signs: Vital Signs Temp 98.9 F 01/16/25 11:48 Pulse 67 01/16/25 11:48 Resp 18 01/16/25 11:48 BP 147/71 H 01/16/25 11:48 Pulse Ox 94 01/16/25 11:48 O2 Del Method Room Air 01/16/25 11:48 O2 Flow Rate 88 01/15/25 18:09 Intake & Output 01/15/25 01/16/25 01/16/25 18:59 06:59 18:59 Output Total 1100 / 1100 Balance -1100 / -1100 Urine Output (Average ml/kg/hr) 1.17 Output: Output, Urine Amount 1100 / 1100 Other: Urine purewick Urine Color Yellow Last Bowel Movement 01/16/25 Weight 75.296 kg 78.2 kg Weight 78.2 kg Hem/Onc Consult Result - Labs CBC & Chem 7: 01/16/25 05:50 01/16/25 05:50 Labs: Short CBC 01/15/25 01/16/25 Range/Units 21:11 05:50 WBC 1.0 L 1.2 L (4.8-10.8) X10*3/uL Hgb 7.7 L 7.6 L (12.0-16.0) g/dl Hct 27.3 L 26.4 L (37.0-47.0) % Plt Count 62 L 59 L (160-400) X10*3/uL BMP 01/15/25 01/16/25 21:11 05:50 Sodium 140 139 Potassium 3.8 3.7 Chloride 112 H 109 H Carbon Dioxide 21 L 24 BUN 16 16 Creatinine 0.74 0.82 Calcium 8.2 L 8.3 L Assessment and Plan Patient Active problem list reviewed?: Yes (1) Mass of lung Status: Acute Assessment and plan: 70-year-old lady, with previous history of breast cancer status post chemo and radiation. She is being treated for dermatomyositis by Rheumatology. Has been on prednisone, azathioprine, Plaquenil. She has been maintained on IVIG. Dr. Elias, mortgage loan officer from [place] is trying to arrange for Valdemar, (inhibits the classical pathway of complement.). 01/15 CTA of the chest revealed: There is spiculated lesion in the anterior right upper lobe measuring 1.1 x 2.2 cm contacting pleura that could represent neoplasm. Consider PET/CT or consultation for biopsy. Moderate right and small left pleural effusions have increased since the prior examination and there is associated compressive atelectasis. There is pulmonary vascular congestion. Splenomegaly. There are no filling defects to suggest pulmonary embolus. DIFFERENTIAL DIAGNOSIS: 1. POST COVID: Despite being rare, solitary pulmonary nodules with irregular margins are 1 of the many faces of COVID-19 infection. 2. GRANULOMATOUS LUNG DISEASE. 3. SARCOIDOSIS. 4. MALIGNANCY. She had actually undergone thoracentesis on 12/25 by interventional Radiology. This revealed: No evidence of malignancy. PLAN: She is being treated with supportive care. Will need further workup as an outpatient, including PET scan and a lung biopsy. For now, continue to titrate O2. Had an episode of tachycardia. On diuretic with lasix 40mg IV x1 then continue 40mg PO BID. Would consult Pulmonary. She sees Dr. Hu as an outpatient. follow CBC and BMP. She has had chronic pancytopenia. Most likely related to the chemo immunotherapy for her dermatomyositis. Her hemoglobin is stable, for now. If drops to less than 8, she would require transfusion. Would monitor CBC, for now. Workup for other causes of anemia in progress. Iron studies: 53/326/16. B12 344, Folate 10.2. Thank you for the consult, Will follow. CC: Dr. Fiore - Time Spent With Patient Time Spent with Patient (in minutes): 30
--- NOTE | 2025-01-16 14:51 | PC.NURSE ---
Pt o2 sats dropped to 88-89% while laying flat sleeping pt placed on supplemental 2L while sleeping.
[2025-01-17] VITALS (14 sets, daily range): BP systolic 98–151; BP diastolic 55–67; PULSE 57–84; RESP 16–20; TEMP 36.4–37.9; O2SAT 95–98
[2025-01-17] MEDS: Fluticasone/Vilanterol 200/25 BLST.W.DEV 1 PUFF INHALE (07:42)
[2025-01-17 07:53] LABS: Hematocrit 26.3 % (37.0-47.0); Hemoglobin 7.4 g/dl (12.0-16.0); Imm Gran Abs Auto 0.00 X10*3/uL (0.00-0.03); Imm Gran Pct Auto 0.0 % (0.0-0.4); Lymphocytes Absolute Auto 0.3 X10*3/uL (1.2-4.9); MANUAL DIFF FLAG SCAN; Mean Corpuscular HGB Conc 28.1 g/dl (31.0-35.0); Mean Corpuscular Hemoglobin 22.1 pg (27.0-33.0); Mean Corpuscular Volume 78.5 fL (80.0-98.0); NRBC Abs Auto 0.000 X10*3/uL (0.0-0.012); NRBC Pct Auto 0.0 /100WBC (0.0-0.2); Red Blood Count 3.35 X10*6/uL (4.20-5.50); SCAN SMEAR FLAG 1
[2025-01-17 07:55] LABS: Platelet Count 65 X10*3/uL (160-400)
[2025-01-17 08:08] LABS: Anion Gap 10 (12-20); Blood Urea Nitrogen 16 mg/dL (9-16); Calcium 8.1 mg/dL (8.4-10.2); Carbon Dioxide 26 mmol/L (22-29); Chloride 110 mmol/L (96-108); Creatinine Clr Calc Pharmacy 55.5; Estimated Glomerular Filt Rate 58; Potassium 3.4 mmol/L (3.3-5.1); Sodium 143 mmol/L (135-145)
[2025-01-17] MEDS: Betamethasone Dip Aug 0.05% Cr 15 GM TUBE 1 APPL TOPICAL ×2 (08:10→22:22)
[2025-01-17 08:14] LABS: Anion Gap 9 (12-20); Blood Urea Nitrogen 16 mg/dL (9-16); Calcium 8.1 mg/dL (8.4-10.2); Carbon Dioxide 27 mmol/L (22-29); Chloride 110 mmol/L (96-108); Creatinine Clr Calc Pharmacy 54.9; Estimated Glomerular Filt Rate 57; Magnesium 1.8 mg/dL (1.6-2.6); Potassium 3.4 mmol/L (3.3-5.1); Sodium 143 mmol/L (135-145)
[2025-01-17 08:17] LABS: NT Pro B Type Natriuretic Pept 1370.1 pg/mL (<300)
[2025-01-17 08:27] LABS: White Blood Count 0.9 X10*3/uL (4.8-10.8)
--- NOTE | 2025-01-17 10:42 | HO.PM.IMPN ---
Subjective Subjective Date of Service: 01/17/25 Review of Systems Follow up sob feels better, but sob with activity Physical Exam Vital Signs: Vital Signs: Last Vital Signs Temp 97.5 F 01/17/25 10:07 Pulse 57 01/17/25 10:07 Resp 18 01/17/25 10:07 BP 129/61 01/17/25 10:07 Pulse Ox 98 01/17/25 02:51 O2 Del Method Nasal Cannula 01/17/25 02:51 O2 Flow Rate 1 01/17/25 02:51 BMI result Body Mass Index 30.5 Objective Data Active Medications Acetaminophen (Acetaminophen 325 Mg Tablet) 975 mg PO Q6H PRN PRN Reason: Pain, Mild 1-3,fever,headache Last Admin: 01/16/25 21:01 Dose: 975 mg Documented By: LUIS ANTONIO Albuterol/Ipratropium (Albuterol/Iprat 2.5/0.5mg 3 Ml Ampul.Neb) 3 ml INHALE Q4H PRN PRN Reason: Shortness of Breath/Wheezing Benzonatate (Benzonatate 100 Mg Capsule) 100 mg PO TID PRN PRN Reason: Cough Betamethasone Dipropion Augmented (Betamethasone Dip Aug 0.05% Cr 15 Gm Tube) 1 appl TOPICAL BID [facility] Last Admin: 01/17/25 08:10 Dose: 1 appl Documented By: CHARLEE Calcium Carbonate (Calcium Carbonate 750 Mg Tab.Chew) 750 mg PO Q4H PRN PRN Reason: Heartburn Clonidine HCl (Clonidine Hcl 0.2 Mg Tablet) 0.2 mg PO BEDTIME [facility]; Protocol Last Admin: 01/16/25 21:09 Dose: Not Given Documented By: LUIS ANTONIO Non-Admin Reason: meds interval too close Empagliflozin (Empagliflozin 10 Mg Tablet) 10 mg PO DAILY [facility] On Hold: 01/16/25 11:49 Last Admin: 01/16/25 07:59 Dose: 10 mg Documented By: CHARLEE Escitalopram Oxalate (Escitalopram Oxalate 10 Mg Tablet) 10 mg PO DAILY [facility] Last Admin: 01/17/25 08:01 Dose: 10 mg Documented By: CHARLEE Fluticasone/Vilanterol (Fluticasone/Vilanterol 200/25 Blst.W.Dev) 1 puff INHALE RDAILY [facility] Last Admin: 01/17/25 07:42 Dose: 1 puff Documented By: CRUZITO Furosemide (Furosemide 40 Mg Tablet) 40 mg PO BIDWM [facility]; Protocol Last Admin: 01/17/25 08:01 Dose: 40 mg Documented By: CHARLEE Loratadine (Loratadine 10 Mg Tablet) 10 mg PO DAILY [facility] Last Admin: 01/17/25 08:01 Dose: 10 mg Documented By: CHARLEE Magnesium Hydroxide (Milk Of Magnesia 30 Ml Oral.Susp) 30 ml PO DAILY PRN PRN Reason: Constipation Melatonin (Melatonin 3 Mg Tablet) 6 mg PO BEDTIME PRN PRN Reason: Insomnia Ondansetron HCl (Ondansetron Hcl 4 Mg/2 Ml Vial) 4 mg IVPUSH Q8H PRN PRN Reason: Nausea and Vomiting Last Admin: 01/15/25 23:47 Dose: 4 mg Documented By: ROBER Oxycodone HCl (Oxycodone Hcl Immed Release 5 Mg Tablet) 5 mg PO Q6H PRN PRN Reason: Pain, Severe (Pain Scale 7-10) Last Admin: 01/15/25 23:47 Dose: 5 mg Documented By: ROBER Sodium Chloride (0.9 % Sodium Chloride Flush 3 Ml Syringe) 3 ml IVFLUSH QSHIFT [facility] Last Admin: 01/17/25 08:09 Dose: Not Given Documented By: CHARLEE Non-Admin Reason: Patient Refused Tamoxifen Citrate (Tamoxifen Citrate 10 Mg Tablet) 20 mg PO DAILY [facility] Last Admin: 01/17/25 08:01 Dose: 20 mg Documented By: CHARLEE Labs 01/17/25 07:11 01/17/25 07:11 Labs: Laboratory Results - last 24 hr 01/15/25 01/17/25 01/17/25 18:23 07:11 07:11 MCV 78.5 L MCH 22.1 L MCHC 28.1 L RDW 16.7 H Plt Count 65 L MPV 11.2 Immature Gran % (Auto) 0.0 Neut % (Auto) 49.5 Lymph % (Auto) 32.2 [place] % (Auto) 16.1 H Eos % (Auto) 1.1 Baso % (Auto) 1.1 Lymph # (Auto) 0.3 L [place] # (Auto) 0.1 Eos # (Auto) 0.0 Baso # (Auto) 0.0 Abs Immat Gran (auto) 0.00 Absolute Neuts (auto) 0.4 L Absolute Nucleated RBC 0.000 Nucleated RBC % (auto) 0.0 Smear Tech's Comments VERIFIED Anion Gap 9 L 10 L Estim Creat Clear Calc 54.9 Estimated GFR Random Glucose Calcium Magnesium NT-Pro-B Natriuret Pep Blood Type A Positive Antibody Screen NEGATIVE Crossmatch See Detail 01/17/25 01/17/25 01/17/25 07:11 07:11 07:11 MCV MCH MCHC RDW Plt Count MPV Immature Gran % (Auto) Neut % (Auto) Lymph % (Auto) [place] % (Auto) Eos % (Auto) Baso % (Auto) Lymph # (Auto) [place] # (Auto) Eos # (Auto) Baso # (Auto) Abs Immat Gran (auto) Absolute Neuts (auto) Absolute Nucleated RBC Nucleated RBC % (auto) Smear Tech's Comments Anion Gap Estim Creat Clear Calc 55.5 Estimated GFR 57 58 Random Glucose 90 90 Calcium 8.1 L Magnesium NT-Pro-B Natriuret Pep Blood Type Antibody Screen Crossmatch 01/17/25 07:11 MCV MCH MCHC RDW Plt Count MPV Immature Gran % (Auto) Neut % (Auto) Lymph % (Auto) [place] % (Auto) Eos % (Auto) Baso % (Auto) Lymph # (Auto) [place] # (Auto) Eos # (Auto) Baso # (Auto) Abs Immat Gran (auto) Absolute Neuts (auto) Absolute Nucleated RBC Nucleated RBC % (auto) Smear Tech's Comments Anion Gap Estim Creat Clear Calc Estimated GFR Random Glucose Calcium 8.1 L Magnesium 1.8 NT-Pro-B Natriuret Pep 1370.1 H Blood Type Antibody Screen Crossmatch Microbiology Microbiology Results: Microbiology 01/15/25 21:11 Blood Culture - Preliminary Blood - Venous No growth after 24 hours. 01/15/25 21:11 Blood Culture - Preliminary Blood - Venous No growth after 24 hours. Assessment and Plan (1) Hypertension: Status: Acute Plan 69-year-old female with a past medical history significant for HFrEF with grade 3 diastolic dysfunction, history of breast cancer treated with chemotherapy and radiation in 2021 and 2022, anxiety, depression, hypertension and pancytopenia, who presented to the ED due to shortness of breath with exertion for the past week with a orthopnea. Acute hypoxic respiratory failure secondary to pleural effusion, new lung lesion Chest CT showing spiculated lesion in the anterior right upper lobe with moderate right and small left pleural effusion lasix 40mg IV x1 then continue 40mg PO BID oncology consult for new lung lesion Discussed with pulmonology, plan for thoracentesis on Saturday, send fluid for cytology Continue supplemental oxygen as needed to keep oxygen saturation greater than 90% chronic pancytopenia H+H stable, just above transfusion threshold, no active bleeding sources monitor CBC hx breast cancer followed by Dr Hernández tamoxifen anxiety/depression citalopram, clonidine HTN no home meds, takes clonidine for anxiety mild COPD, no acute exacerbation duonebs PRN full code VTE prophy: SCDs due to thrombocytopenia Pt with acute hypoxic respiratory failure, sirs, acute CHF exacerbation with pleural effusion and new lung lesion, requiring admission for at least 2 midnights stay for diuresis, further evaluation and monitoring. Quality Stroke Does the patient have a stroke diagnosis?: No VTE Prior VTE?: No VTE Risk Level:: Medical - moderate - high VTE Device Contraindication: N/A - Device Ordered VTE Drug Contraindication: Treatment Not Indicated
--- NOTE | 2025-01-17 10:44 | P.CONPL_ITS ---
History of Present Illness History of Present Illness Consult date: 01/17/25 Chief complaint: Pulmonary nodule Narrative: 70-year-old lady with underlying dermatomyositis on IVIG/Rituxan, combined systolic and diastolic dysfunction, breast cancer status post chemo and radiation in 2022 admitted on 01/15/2025 with progressive dyspnea and treated with diuresis. Her CT angio chest was negative pulmonary emboli, but showed slowly increasing right-sided pulmonary effusion and right upper lobe pulmonary nodule that was stable from her prior CT chest in June of 2024. Review of Systems 2 Constitutional: Constitutional: Denies daytime sleepiness, Denies excessive sweating, Denies fatigue, Denies fever(s), Denies lethargy, Denies malaise, Denies night sweats, Denies snoring and Denies weight loss Eyes: Eyes: Denies blurry vision and Denies itchy eyes ENT: Denies nasal congestion, Denies post nasal drip, Denies sinus pain, Denies sinus pressure and Denies other ( Thrush) Cardiovascular: Cardiovascular: Denies chest pain, Reports pedal edema, Denies dyspnea, Reports dyspnea on exertion, Denies orthopnea and Denies paroxysmal nocturnal dyspnea Respiratory: Respiratory: Denies cough, Denies hemoptysis, Denies excessive phlegm production, Denies dyspnea, Reports dyspnea on exertion, Denies snoring and Denies wheezing Gastrointestinal: Gastrointestinal: Denies abdominal pain and Denies heartburn Musculoskeletal: Musculoskeletal: Denies myalgias, Denies arthralgias and Denies joint swelling Integumentary/Breasts: Skin/Breast: Denies rash Neurologic: Denies memory loss and Denies seizure-like activity Psychiatric: Psychiatric: Denies abnormal sleep pattern, Denies anxiety and Denies memory loss Endocrine: Endocrine: Denies excessive sweating, Denies fatigue and Denies heat intolerance Hematologic/Lymphatic: Hematologic/Lymphatic: Denies easy bruising Allergic/Immunologic: Allergic/Immunologic: Denies itchy eyes, Denies seasonal rhinorrhea and Denies wheezing PMFSH Past Medical History Medical History (Updated 01/16/25 @ 14:29 by Patrick Hernández MD) SIRS (systemic inflammatory response syndrome) Dermatomyositis Acute on chronic heart failure with preserved ejection fraction (HFpEF) Anemia Pancytopenia Long-term current use of intravenous immunoglobulin (IVIG) Plaquenil adverse reaction in therapeutic use Nocturnal cough Pleural effusion History of right breast cancer Axillary adenopathy Bacteremia due to Klebsiella pneumoniae Acute hypokalemia UTI (urinary tract infection) Abdominal pain Atrial arrhythmia CHF (congestive heart failure) Acute diastolic (congestive) heart failure Diarrhea Pancolitis Colitis Nonsustained supraventricular tachycardia Port-A-Cath in place Pain in both feet Pedal edema History of COVID-19 Invasive ductal carcinoma of right breast Breast cancer, right Breast calcification, right Encounter to establish care Lumbar degenerative disc disease Hypertension Major depression, chronic Insomnia Anxiety Family History Family History Mother No problems noted. Father Breast cancer Bone cancer Brother Substance use disorder Paternal Aunt Breast cancer Surgical History Surgical History Hx of colonoscopy Status post right breast lumpectomy History of arthroscopic knee surgery History of hysterectomy History of section History of cholecystectomy History of gastric bypass History of fusion of cervical spine History of tonsillectomy Social History Social History Household Members: Children Household Members Other:: boyfriend and grandchildren Housing: House Are you a primary childcare worker to a significant other at home: No Do you presently have visiting nurse or other home services: No Alcohol intake: former Comment: Pedal Edema and pain- uses cane Patient Tobacco Use Status: Former Tobacco user Tobacco use type: Cigarette Smoked in Last 30 Days: No e-Cigarette/Vaping Use: Former Use Patient Interested in Nicotine Replacement: No Second Hand Smoke Exposure: No Use of substances other than those prescribed or required for medical reasons: No Currently Displaying Signs/Symptoms of Drug Intoxication Withdrawal: No Have you been hit, kicked, punched, or otherwise hurt by someone within the past year? If so, by whom?: No Do you feel safe in your current relationship?: Yes Is there a partner from a previous relationship who is making you feel unsafe now?: No Are you made to feel afraid or neglected: No Advance Directives: Yes Advance Directives on File: Yes Advance Directives Date on File: 11/28/21 Do you have a plan to hurt others: No Plan Recently lost weight without trying: No Eating poorly because of decreased appetite: No Nutrition Risks: No Nutritional Risk Patient : No : No Poor oral hygiene: No service: No Current occupational status: unemployed and retired Cognitive needs: No Hearing needs: No Vision needs: Yes (glasses) Meds Allergies Allergy/AdvReac Type Severity Reaction Status Date / Time No Known Allergies Allergy Verified 01/15/25 11:43 Active Medications: Current Medications Acetaminophen (Acetaminophen 325 Mg Tablet) 975 mg PO Q6H PRN PRN Reason: Pain, Mild 1-3,fever,headache Last Admin: 01/16/25 21:01 Dose: 975 mg Albuterol/Ipratropium (Albuterol/Iprat 2.5/0.5mg 3 Ml Ampul.Neb) 3 ml INHALE Q4H PRN PRN Reason: Shortness of Breath/Wheezing Benzonatate (Benzonatate 100 Mg Capsule) 100 mg PO TID PRN PRN Reason: Cough Betamethasone Dipropion Augmented (Betamethasone Dip Aug 0.05% Cr 15 Gm Tube) 1 appl TOPICAL BID [facility] Last Admin: 01/17/25 08:10 Dose: 1 appl Calcium Carbonate (Calcium Carbonate 750 Mg Tab.Chew) 750 mg PO Q4H PRN PRN Reason: Heartburn Clonidine HCl (Clonidine Hcl 0.2 Mg Tablet) 0.2 mg PO BEDTIME [facility]; Protocol Last Admin: 01/16/25 21:09 Dose: Not Given Empagliflozin (Empagliflozin 10 Mg Tablet) 10 mg PO DAILY [facility] On Hold: 01/16/25 11:49 Last Admin: 01/16/25 07:59 Dose: 10 mg Escitalopram Oxalate (Escitalopram Oxalate 10 Mg Tablet) 10 mg PO DAILY [facility] Last Admin: 01/17/25 08:01 Dose: 10 mg Fluticasone/Vilanterol (Fluticasone/Vilanterol 200/25 Blst.W.Dev) 1 puff INHALE RDAILY [facility] Last Admin: 01/17/25 07:42 Dose: 1 puff Furosemide (Furosemide 40 Mg Tablet) 40 mg PO BIDWM [facility]; Protocol Last Admin: 01/17/25 08:01 Dose: 40 mg Loratadine (Loratadine 10 Mg Tablet) 10 mg PO DAILY [facility] Last Admin: 01/17/25 08:01 Dose: 10 mg Magnesium Hydroxide (Milk Of Magnesia 30 Ml Oral.Susp) 30 ml PO DAILY PRN PRN Reason: Constipation Melatonin (Melatonin 3 Mg Tablet) 6 mg PO BEDTIME PRN PRN Reason: Insomnia Ondansetron HCl (Ondansetron Hcl 4 Mg/2 Ml Vial) 4 mg IVPUSH Q8H PRN PRN Reason: Nausea and Vomiting Last Admin: 01/15/25 23:47 Dose: 4 mg Oxycodone HCl (Oxycodone Hcl Immed Release 5 Mg Tablet) 5 mg PO Q6H PRN PRN Reason: Pain, Severe (Pain Scale 7-10) Last Admin: 01/15/25 23:47 Dose: 5 mg Sodium Chloride (0.9 % Sodium Chloride Flush 3 Ml Syringe) [address] [facility] Last Admin: 01/17/25 08:09 Dose: Not Given Tamoxifen Citrate (Tamoxifen Citrate 10 Mg Tablet) 20 mg PO DAILY [facility] Last Admin: 01/17/25 08:01 Dose: 20 mg Home Medications ?Medication ?Instructions ?Recorded ?Confirmed ?Last Taken ?Type cetirizine 10 mg tablet 20 mg PO DAILY 09/09/2410/0201/12/25 History tamoxifen 20 mg tablet 20 mg PO DAILY 09/09/2410/0201/12/25 History potassium chloride 20 mEq 20 meq PO BID 11/26/2401/1501/12/25 History tablet,extended release empagliflozin 10 mg tablet 10 mg PO DAILY 01/15/2510/0201/12/25 History (Jardiance) fluticasone furoate 200 1 ea inhalation DAILY 01/15/25 01/12/25 History mcg-vilanterol 25 mcg/dose inhalation powder (Breo Ellipta) Physical Exam 2 Vital Signs: Vital Signs: Last Vital Signs Temp 97.5 F 01/17/25 10:07 Pulse 57 01/17/25 10:07 Resp 18 01/17/25 10:07 BP 129/61 01/17/25 10:07 Pulse Ox 98 01/17/25 02:51 O2 Del Method Nasal Cannula 01/17/25 02:51 O2 Flow Rate 1 01/17/25 02:51 BMI result Body Mass Index 30.5 Const: General: no acute distress and alert Nutritional Appearance: not obese Orientation/consciousness: Other orientation findings ( oriented) HEENT: Head: Yes atraumatic Eyes: General: appearance normal, both eyes and all related structures S clerae: sclerae normal EOM: EOMs intact bilaterally Neck: Neck: Yes supple Lymphatic: no lymphadenopathy noted Resp: Effort & Inspection: normal respiratory effort and no use of accessory muscles Auscultation: clear to auscultation bilaterally Cardio: Rate: regular rate Rhythm: regular rhythm Heart sounds: no gallops, no murmurs and no rubs Skin: General skin exam: other ( warm) Extrem: General: No clubbing, No cyanosis and Yes edema (Trace bilateral) Results Laboratory Findings 01/17/25 07:11 01/17/25 07:11 Abnormal lab findings: Abnormal Labs 01/15/25 01/15/25 01/15/25 12:35 18:23 21:11 WBC 1.0 L 1.0 L RBC 3.22 L 3.45 L Hgb 7.2 L 7.7 L Hct 25.8 L 27.3 L MCV 79.1 L MCH 22.4 L 22.3 L MCHC 27.9 L 28.2 L RDW 16.7 H 16.7 H Plt Count 51 L 62 L Lymph % (Auto) [place] % (Auto) 18.9 H 16.7 H Lymph # (Auto) 0.2 L 0.2 L Absolute Neuts (auto) 0.6 L 0.6 L Chloride 116 H 112 H Carbon Dioxide 19 L 21 L Anion Gap 8 L 11 L Random Glucose 180 H 138 H Calcium 7.8 L 8.2 L NT-Pro-B Natriuret Pep 743.6 H Albumin 2.8 L Crossmatch See Detail 01/16/25 01/17/25 01/17/25 05:50 07:11 07:11 WBC 1.2 L 0.9 L* RBC 3.40 L 3.35 L Hgb 7.6 L 7.4 L Hct 26.4 L 26.3 L MCV 77.6 L 78.5 L MCH 22.4 L 22.1 L MCHC 28.8 L 28.1 L RDW 16.7 H 16.7 H Plt Count 59 L 65 L Lymph % (Auto) 18.3 L [place] % (Auto) 11.7 H 16.1 H Lymph # (Auto) 0.2 L 0.3 L Absolute Neuts (auto) 0.8 L 0.4 L Chloride 109 H 110 H 110 H Carbon Dioxide Anion Gap 10 L 9 L Random Glucose 124 H Calcium 8.3 L NT-Pro-B Natriuret Pep Albumin Crossmatch 01/17/25 01/17/25 07:11 07:11 WBC RBC Hgb Hct MCV MCH MCHC RDW Plt Count Lymph % (Auto) [place] % (Auto) Lymph # (Auto) Absolute Neuts (auto) Chloride Carbon Dioxide Anion Gap 10 L Random Glucose Calcium 8.1 L 8.1 L NT-Pro-B Natriuret Pep 1370.1 H Albumin Crossmatch Microbiology: Microbiology 01/15/25 21:11 Blood - Venous Blood Culture - Preliminary No growth after 24 hours. 01/15/25 21:11 Blood - Venous Blood Culture - Preliminary No growth after 24 hours. Assessment and Plan (1) Pleural effusion: Status: Acute (2) Lesion of lung: Status: Acute Plan Impression: 70-year-old lady admitted with worsening dyspnea with noted increasing right lower lobe effusion and stable right upper lobe pulmonary nodule on background of prior breast cancer and dermatomyositis. Now with improved respiratory status. Recommendations: Agree with diagnostic thoracentesis of the right-sided increasing pleural effusion. Consider albumin supplementation. Right upper lobe pulmonary lesion appears to be stable with the last 6 months, and thus less likely to be malignant. Though would require further imaging follow-up on outpatient basis. Procedures Date of Service Date of Service: 01/17/25
--- NOTE | 2025-01-17 10:45 | P.PNIM_ITS ---
Subjective Subjective Date of Service: 01/17/25 Review of Systems Follow up sob feels better, but sob with activity HH low, tx Physical Exam 2 Exam: Exam: Appearing in no acute distress lung sounds are clear to auscultation heart regular rate rhythm, clear S1, S2 positive bowel sounds, abdomen is soft, nontender neuro patient is alert x3, no focal deficits Vital Signs: Vital Signs: Last Vital Signs Temp 97.5 F 01/17/25 10:07 Pulse 57 01/17/25 10:07 Resp 18 01/17/25 10:07 BP 129/61 01/17/25 10:07 Pulse Ox 98 01/17/25 02:51 O2 Del Method Nasal Cannula 01/17/25 02:51 O2 Flow Rate 1 01/17/25 02:51 BMI result Body Mass Index 30.5 Objective Data Active Medications Acetaminophen (Acetaminophen 325 Mg Tablet) 975 mg PO Q6H PRN PRN Reason: Pain, Mild 1-3,fever,headache Last Admin: 01/16/25 21:01 Dose: 975 mg Documented By: LUIS ANTONIO Albuterol/Ipratropium (Albuterol/Iprat 2.5/0.5mg 3 Ml Ampul.Neb) 3 ml INHALE Q4H PRN PRN Reason: Shortness of Breath/Wheezing Benzonatate (Benzonatate 100 Mg Capsule) 100 mg PO TID PRN PRN Reason: Cough Betamethasone Dipropion Augmented (Betamethasone Dip Aug 0.05% Cr 15 Gm Tube) 1 appl TOPICAL BID [facility] Last Admin: 01/17/25 08:10 Dose: 1 appl Documented By: CHARLEE Calcium Carbonate (Calcium Carbonate 750 Mg Tab.Chew) 750 mg PO Q4H PRN PRN Reason: Heartburn Clonidine HCl (Clonidine Hcl 0.2 Mg Tablet) 0.2 mg PO BEDTIME [facility]; Protocol Last Admin: 01/16/25 21:09 Dose: Not Given Documented By: LUIS ANTONIO Non-Admin Reason: meds interval too close Empagliflozin (Empagliflozin 10 Mg Tablet) 10 mg PO DAILY [facility] On Hold: 01/16/25 11:49 Last Admin: 01/16/25 07:59 Dose: 10 mg Documented By: CHARLEE Escitalopram Oxalate (Escitalopram Oxalate 10 Mg Tablet) 10 mg PO DAILY [facility] Last Admin: 01/17/25 08:01 Dose: 10 mg Documented By: CHARLEE Fluticasone/Vilanterol (Fluticasone/Vilanterol 200/25 Blst.W.Dev) 1 puff INHALE RDAILY [facility] Last Admin: 01/17/25 07:42 Dose: 1 puff Documented By: CRUZITO Furosemide (Furosemide 40 Mg Tablet) 40 mg PO BIDWM [facility]; Protocol Last Admin: 01/17/25 08:01 Dose: 40 mg Documented By: HCARLEE Loratadine (Loratadine 10 Mg Tablet) 10 mg PO DAILY [facility] Last Admin: 01/17/25 08:01 Dose: 10 mg Documented By: CHARLEE Magnesium Hydroxide (Milk Of Magnesia 30 Ml Oral.Susp) 30 ml PO DAILY PRN PRN Reason: Constipation Melatonin (Melatonin 3 Mg Tablet) 6 mg PO BEDTIME PRN PRN Reason: Insomnia Ondansetron HCl (Ondansetron Hcl 4 Mg/2 Ml Vial) 4 mg IVPUSH Q8H PRN PRN Reason: Nausea and Vomiting Last Admin: 01/15/25 23:47 Dose: 4 mg Documented By: ROBER Oxycodone HCl (Oxycodone Hcl Immed Release 5 Mg Tablet) 5 mg PO Q6H PRN PRN Reason: Pain, Severe (Pain Scale 7-10) Last Admin: 01/15/25 23:47 Dose: 5 mg Documented By: ROBER Sodium Chloride (0.9 % Sodium Chloride Flush 3 Ml Syringe) 3 ml IVFLUSH QSHIFT [facility] Last Admin: 01/17/25 08:09 Dose: Not Given Documented By: CHARLEE Non-Admin Reason: Patient Refused Tamoxifen Citrate (Tamoxifen Citrate 10 Mg Tablet) 20 mg PO DAILY [facility] Last Admin: 01/17/25 08:01 Dose: 20 mg Documented By: CHARLEE Labs 01/17/25 07:11 01/17/25 07:11 Labs: Laboratory Results - last 24 hr 01/15/25 01/17/25 01/17/25 18:23 07:11 07:11 MCV 78.5 L MCH 22.1 L MCHC 28.1 L RDW 16.7 H Plt Count 65 L MPV 11.2 Immature Gran % (Auto) 0.0 Neut % (Auto) 49.5 Lymph % (Auto) 32.2 [place] % (Auto) 16.1 H Eos % (Auto) 1.1 Baso % (Auto) 1.1 Lymph # (Auto) 0.3 L [place] # (Auto) 0.1 Eos # (Auto) 0.0 Baso # (Auto) 0.0 Abs Immat Gran (auto) 0.00 Absolute Neuts (auto) 0.4 L Absolute Nucleated RBC 0.000 Nucleated RBC % (auto) 0.0 Smear Tech's Comments VERIFIED Anion Gap 9 L 10 L Estim Creat Clear Calc 54.9 Estimated GFR Random Glucose Calcium Magnesium NT-Pro-B Natriuret Pep Blood Type A Positive Antibody Screen NEGATIVE Crossmatch See Detail 01/17/25 01/17/25 01/17/25 07:11 07:11 07:11 MCV MCH MCHC RDW Plt Count MPV Immature Gran % (Auto) Neut % (Auto) Lymph % (Auto) [place] % (Auto) Eos % (Auto) Baso % (Auto) Lymph # (Auto) [place] # (Auto) Eos # (Auto) Baso # (Auto) Abs Immat Gran (auto) Absolute Neuts (auto) Absolute Nucleated RBC Nucleated RBC % (auto) Smear Tech's Comments Anion Gap Estim Creat Clear Calc 55.5 Estimated GFR 57 58 Random Glucose 90 90 Calcium 8.1 L Magnesium NT-Pro-B Natriuret Pep Blood Type Antibody Screen Crossmatch 01/17/25 07:11 MCV MCH MCHC RDW Plt Count MPV Immature Gran % (Auto) Neut % (Auto) Lymph % (Auto) [place] % (Auto) Eos % (Auto) Baso % (Auto) Lymph # (Auto) [place] # (Auto) Eos # (Auto) Baso # (Auto) Abs Immat Gran (auto) Absolute Neuts (auto) Absolute Nucleated RBC Nucleated RBC % (auto) Smear Tech's Comments Anion Gap Estim Creat Clear Calc Estimated GFR Random Glucose Calcium 8.1 L Magnesium 1.8 NT-Pro-B Natriuret Pep 1370.1 H Blood Type Antibody Screen Crossmatch Microbiology Microbiology Results: Microbiology 01/15/25 21:11 Blood Culture - Preliminary Blood - Venous No growth after 24 hours. 01/15/25 21:11 Blood Culture - Preliminary Blood - Venous No growth after 24 hours. Assessment and Plan (1) Hypertension: Status: Acute Plan 69-year-old female with a past medical history significant for HFrEF with grade 3 diastolic dysfunction, history of breast cancer treated with chemotherapy and radiation in 2021 and 2022, anxiety, depression, hypertension and pancytopenia, who presented to the ED due to shortness of breath with exertion for the past week with a orthopnea. Acute hypoxic respiratory failure secondary to pleural effusion, new lung lesion Chest CT showing spiculated lesion in the anterior right upper lobe with moderate right and small left pleural effusion lasix 40mg IV x1 then continue 40mg PO BID oncology consult for new lung lesion following Discussed with pulmonology, plan for thoracentesis on Saturday, send fluid for cytology Continue supplemental oxygen as needed to keep oxygen saturation greater than 90% Chronic pancytopenia low HH tx 2 units PRBC today hx breast cancer followed by Dr Hernández tamoxifen anxiety/depression citalopram, clonidine HTN no home meds, takes clonidine for anxiety mild COPD, no acute exacerbation duonebs PRN full code VTE prophy: SCDs due to thrombocytopenia Pt with acute hypoxic respiratory failure, sirs, acute CHF exacerbation with pleural effusion and new lung lesion, requiring admission for at least 2 midnights stay for diuresis, further evaluation and monitoring. Quality Stroke Does the patient have a stroke diagnosis?: No VTE Prior VTE?: No VTE Risk Level:: Medical - moderate - high VTE Device Contraindication: N/A - Device Ordered VTE Drug Contraindication: Treatment Not Indicated
[2025-01-18] VITALS (7 sets, daily range): BP systolic 100–130; BP diastolic 49–61; PULSE 54–64; RESP 16–18; TEMP 36.7–37.1; O2SAT 94–98
[2025-01-18] MEDS: Fluticasone/Vilanterol 200/25 BLST.W.DEV 1 PUFF INHALE (07:35)
[2025-01-18 07:38] LABS: Anion Gap 8 (12-20); Blood Urea Nitrogen 16 mg/dL (9-16); Calcium 8.0 mg/dL (8.4-10.2); Carbon Dioxide 27 mmol/L (22-29); Chloride 109 mmol/L (96-108); Creatinine Clr Calc Pharmacy 64.9; Estimated Glomerular Filt Rate > 60; Magnesium 1.8 mg/dL (1.6-2.6); Potassium 3.2 mmol/L (3.3-5.1); Sodium 141 mmol/L (135-145)
[2025-01-18 07:46] LABS: Hematocrit 29.6 % (37.0-47.0); Hemoglobin 8.7 g/dl (12.0-16.0); Imm Gran Abs Auto 0.00 X10*3/uL (0.00-0.03); Imm Gran Pct Auto 0.0 % (0.0-0.4); Lymphocytes Absolute Auto 0.4 X10*3/uL (1.2-4.9); MANUAL DIFF FLAG SCAN; Mean Corpuscular HGB Conc 29.4 g/dl (31.0-35.0); Mean Corpuscular Hemoglobin 22.9 pg (27.0-33.0); Mean Corpuscular Volume 77.9 fL (80.0-98.0); NRBC Abs Auto 0.000 X10*3/uL (0.0-0.012); NRBC Pct Auto 0.0 /100WBC (0.0-0.2); Red Blood Count 3.80 X10*6/uL (4.20-5.50); SCAN SMEAR FLAG 1
[2025-01-18 08:23] LABS: Platelet Count 68 X10*3/uL (160-400); White Blood Count 2.0 X10*3/uL (4.8-10.8)
[2025-01-18] MEDS: Potassium Chloride ER 20 MEQ TAB.ER.PRT 40 MEQ PO (08:30)
[2025-01-18] MEDS: Betamethasone Dip Aug 0.05% Cr 15 GM TUBE 1 APPL TOPICAL (08:33)
--- NOTE | 2025-01-18 09:33 | PC.NURSE ---
Pt had approx 1 liter thora. fluids removed; tolerated well; vss; CXR 2 V to follow per Dr Cordero
[2025-01-18] MEDS: Lidocaine HCl 1 % MPF 5 ML VIAL SUBCUT (09:39)
--- NOTE | 2025-01-18 11:11 | PM.DS ---
DS: Providers Provider Date of Service: 01/18/25 Date of admission: 01/15/25 18:27 Date of discharge: 01/18/25 Primary care physician: Gerald Vance MD Consults: 01/15/25 20:36 Consult to Hematology / Oncology Routine Consulting Provider: [facility] [place] Reason for consultation: lung mass on CT, pleural effusions Has provider been notified: No 01/16/25 10:58 Consult to Pulmonology Routine Consulting Provider: [facility] [place] [facility] Reason for consultation: spiculated lesion RUL 01/18/25 07:37 Consult to Hematology / Oncology Routine Consulting Provider: [facility] [place]/Hematology Reason for consultation: neutropenia DS: Diagnosis Discharge Diagnosis (1) Hypertension: Status: Acute (2) Pleural effusion: Status: Acute (3) Lesion of lung: Status: Acute DS: Summary Hospital Course Hospital Course: History and physical as per admitting provider. The patient is a 69-year-old female with a past medical history significant for HFrEF with grade 3 diastolic dysfunction, history of breast cancer treated with chemotherapy and radiation in 2021 and 2022, anxiety, depression, hypertension and pancytopenia, who presented to the ED due to shortness of breath with exertion for the past week with a orthopnea. She becomes hypoxic with ambulation. 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 The patient reports she last received IVIG 2-3 days ago but has been on this for many years. She has a a dry cough intermittently. No fever, chills, nausea, vomiting. No sick contacts or recent travel. Acute hypoxic respiratory failure secondary to pleural effusion, possible new lung lesion Chest CT showing spiculated lesion in the anterior right upper lobe with moderate right and small left pleural effusion lasix 40mg IV x1 then continue 40mg PO BID Discussed with pulmonology, status post thoracentesis 1 liter removed, sent for cytology, patient to follow up with primary care provider for results Chronic pancytopenia low HH tx 2 units PRBC as Hematology recommended transfusing with hemoglobin less than 7 UTI. sent home with 5 days of ceftin hx breast cancer followed by Dr Hernández On tamoxifen anxiety/depression Continue citalopram, clonidine HTN no home meds, takes clonidine for anxiety mild COPD, no acute exacerbation duonebs PRN Time Attestation Discharge Coordination Time (in mins): 42 Quality: Safe Use of Opioids Does Pt have an Active Cancer Diagnosis on the Problem List?: No Quality: Stroke Does the patient have a stroke diagnosis?: No Physical Exam Exam: Exam: Appearing in no acute distress head is normocephalic atraumatic eyes pupils are PERRLA sclera is anicteric mouth throat mucous membranes are intact and moist neck is supple no lymphadenopathy, no JVD noted lung sounds are clear to auscultation heart regular rate rhythm, clear S1, S2 positive bowel sounds, abdomen is soft, nontender neuro patient is alert x3, no focal deficits Vital Signs: Vital Signs: Last Vital Signs Temp 98.6 F 01/18/25 07:00 Pulse 59 01/18/25 09:35 Resp 17 01/18/25 09:35 BP 112/56 L 01/18/25 09:35 Pulse Ox 98 01/18/25 09:35 O2 Del Method Room Air 01/18/25 09:35 O2 Flow Rate 1 01/17/25 02:51 BMI result Body Mass Index 30.5 DS: Data Data Completed and Pending Completed studies during hospitalization [Text1]: Procedures Excision of Descending Colon, Via Natural or Artificial Opening Endoscopic, Diagnostic (11/23/21) Transfusion of Nonautologous Red Blood Cells into Peripheral Vein, Percutaneous Approach (02/04/22) Pending studies at discharge: Pending at discharge 01/16/25 11:48 Cytology [PTH] Routine Labs on day of discharge: Laboratory Results - last 24 hr 01/15/25 01/18/25 18:23 06:51 WBC 2.0 L RBC 3.80 L Hgb 8.7 L Hct 29.6 L MCV 77.9 L MCH 22.9 L MCHC 29.4 L RDW 16.5 H Plt Count 68 L MPV 10.8 Immature Gran % (Auto) 0.0 Neut % (Auto) 64.0 Lymph % (Auto) 21.5 [place] % (Auto) 13.5 H Eos % (Auto) 0.5 Baso % (Auto) 0.5 Lymph # (Auto) 0.4 L [place] # (Auto) 0.3 Eos # (Auto) 0.0 Baso # (Auto) 0.0 Abs Immat Gran (auto) 0.00 Absolute Neuts (auto) 1.3 L Absolute Nucleated RBC 0.000 Nucleated RBC % (auto) 0.0 Smear Tech's Comments VERIFIED Sodium 141 Potassium 3.2 L Chloride 109 H Carbon Dioxide 27 Anion Gap 8 L BUN 16 Creatinine 0.82 Estim Creat Clear Calc 64.9 Estimated GFR > 60 Random Glucose 84 Calcium 8.0 L Magnesium 1.8 Blood Type A Positive Antibody Screen NEGATIVE Crossmatch See Detail Preliminary micro results at discharge 01/15/25 21:11 Blood Culture - Preliminary Blood - Venous No growth after 48 hours. 01/15/25 21:11 Blood Culture - Preliminary Blood - Venous No growth after 48 hours. Discharge Plan Discharge Anticipated Discharge Date/Time: 01/18/25 11:02 Patient Disposition: Home, Self-Care Discharge Diagnosis: Acute hypoxic respiratory failure Pleural effusion Possible lung lesion UTI Referrals: Gerald Vance MD [Primary Care Provider, Internal Medicine] - 1 Week Discharge Medications: New cefuroxime axetil 500 mg tablet 500 mg PO Q12H Qty: 10 0RF Continued clobetasol 0.05 % ointment 1 appl topical BID Qty: 60 3RF Rx Instructions: Do Not apply on face or sensitive areas such as your armpits, genitals or groin citalopram 20 mg Tablet 20 mg PO DAILY Qty: 30 1RF furosemide 40 mg tablet 40 mg PO BID Qty: 180 3RF clonidine HCl 0.2 mg tablet 0.2 mg PO BEDTIME Qty: 90 1RF potassium chloride 20 mEq tablet extended release 20 meq PO BID Jardiance 10 mg tablet 10 mg PO DAILY fluticasone furoate-vilanterol [Breo Ellipta] 200-25 mcg/dose blister with device 1 ea INHALATION DAILY cetirizine 10 mg tablet 20 mg PO DAILY tamoxifen 20 mg tablet 20 mg PO DAILY Discharge Orders: Discharge Order (Routine); Ordered 01/18/25 Ordered By: Bhavani Hu Diet: Advance to usual diet Activity on Discharge: As tolerated Stand Alone Forms: Patient Portal Discharge page Print Language: [place] Citizen Care Plan Goals: Follow up thoracentesis results with your Primary care provider. Health Concerns: Acute hypoxic respiratory failure Pleural effusion Possible lung lesion UTI Plan of Treatment: Follow up with primary care provider as needed Take all medications as prescribed Assessment: See discharge summary Patient Instructions: Thoracentesis (DC)
--- NOTE | 2025-01-18 13:28 | P.PNHO-ONC_ITS ---
Medical Summary - Medical Summary Date of Service: 01/18/25 Chief complaint: FOLLOW-UP FOR:1. LUNG MASS. 2. H/O BREAST CANCER. Primary Care Provider: Gerald Vance MD Medical Summary: DIAGNOSIS: 1. LUNG MASS. 2. H/O BREAST CANCER. [employer] Teacher Utilized?: No - Vietnamese Speaking Interval History Interval history: Kate Almaguer is a 70 year old pleasant lady with a history of breast cancer. She presented with shortness of breath. CTA of the chest revealed: There is spiculated lesion in the anterior right upper lobe measuring 1.1 x 2.2 cm contacting pleura that could represent neoplasm. Consider PET/CT or consultation for biopsy. Moderate right and small left pleural effusions have increased since the prior examination and there is associated compressive atelectasis. There is pulmonary vascular congestion. Splenomegaly. There are no filling defects to suggest pulmonary embolus. She underwent a thoracentesis this morning. She tells me she is feeling better. Breathing has improved and so has her energy level. PRESENTING HISTORY: She presented to the ED due to shortness of breath with exertion for the past week with a orthopnea. She becomes hypoxic with ambulation. 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 The patient reports she last received IVIG 2-3 days ago but has been on this for many years. She has a a dry cough intermittently. No fever, chills, nausea, vomiting. No sick contacts or recent travel. Medical History: Past medical history significant for HFrEF with grade 3 diastolic dysfunction, anxiety, depression, hypertension and pancytopenia. SIRS (systemic inflammatory response syndrome) Dermatomyositis Acute on chronic heart failure with preserved ejection fraction (HFpEF) Anemia Pancytopenia Long-term current use of intravenous immunoglobulin (IVIG) Plaquenil adverse reaction in therapeutic use Nocturnal cough Pleural effusion History of right breast cancer: She was treated with chemotherapy and radiation in 2021 and 2022. Axillary adenopathy Bacteremia due to Klebsiella pneumoniae Acute hypokalemia UTI (urinary tract infection) Abdominal pain Atrial arrhythmia CHF (congestive heart failure) Acute diastolic (congestive) heart failure Diarrhea Pancolitis Colitis Nonsustained supraventricular tachycardia Port-A-Cath in place Pain in both feet Pedal edema History of COVID-19 Invasive ductal carcinoma of right breast Breast cancer, right Breast calcification, right Encounter to establish care Lumbar degenerative disc disease Hypertension Major depression, chronic Insomnia Anxiety Functional capacity: independent ambulation Family History: Mother No problems noted. Father Breast cancer Bone cancer. Surgical History:) Hx of colonoscopy Status post right breast lumpectomy History of arthroscopic knee surgery History of hysterectomy History of section History of cholecystectomy History of gastric bypass History of fusion of cervical spine History of tonsillectomy Social History:) Household Members: Spouse and Children Housing: House Are you a primary restorative care technician to a significant other at home: No Do you presently have visiting nurse or other home services: Yes ([facility]) Alcohol intake: former Comment: Pedal Edema and pain- uses cane Patient Tobacco Use Status: Former Tobacco user Tobacco use type: Cigarette Smoked in Last 30 Days: No e-Cigarette/Vaping Use: Never Used Review of Systems - Constitutional Reports no additional constitutional complaints, Denies lack of energy, Denies malaise, Reports weight loss - Eyes Reports no additional eye complaints - ENT Reports no additional ear, nose, mouth, and throat complaints - Cardiovascular Reports no additional cardiovascular complaints, Denies shortness of breath - Respiratory Reports no additional respiratory complaints - Gastrointestinal Reports no additional gastrointestinal complaints - Genitourinary Reports no additional female genitourinary complaints - Musculoskeletal Reports no additional musculoskeletal complaints - Integumentary/Breasts Skin/Breast: Reports no additional skin complaints - Neurologic Denies confusion, Denies headache(s), Denies memory loss, Denies seizure-like activity, Reports weakness - Psychiatric Reports no additional psychiatric complaints - Endocrine Reports no additional endocrine complaints - Hematologic/Lymphatic Reports no additional hematologic/lymphatic complaints - Allergic/Immunologic Reports no additional allergic/immunologic complaints [facility] Medical History: Medical History (Last Updated 01/15/25 @ 23:46 by Bianca Matta PA-C) Abdominal pain Acute diastolic (congestive) heart failure Acute hypokalemia Acute on chronic heart failure with preserved ejection fraction (HFpEF) Anemia Anxiety Atrial arrhythmia Axillary adenopathy Bacteremia due to Klebsiella pneumoniae Breast calcification, right Breast cancer, right CHF (congestive heart failure) Colitis Dermatomyositis Diarrhea Encounter to establish care History of COVID-19 History of right breast cancer Hypertension Insomnia Invasive ductal carcinoma of right breast Long-term current use of intravenous immunoglobulin (IVIG) Lumbar degenerative disc disease Major depression, chronic Nocturnal cough Nonsustained supraventricular tachycardia Pain in both feet Pancolitis Pancytopenia Pedal edema Plaquenil adverse reaction in therapeutic use Pleural effusion Port-A-Cath in place SIRS (systemic inflammatory response syndrome) UTI (urinary tract infection) Functional capacity: independent ambulation Family History: Family History (Last Reviewed 01/07/25 @ 14:12 by TISHA Hicks) Mother No problems noted. Father Breast cancer Bone cancer Brother Substance use disorder Paternal Aunt Breast cancer Surgical History: Surgical History (Last Reviewed 01/07/25 @ 14:12 by TISHA Hicks) History of arthroscopic knee surgery History of section History of cholecystectomy History of fusion of cervical spine History of gastric bypass History of hysterectomy History of tonsillectomy Hx of colonoscopy Status post right breast lumpectomy Social History: Social History (Last Reviewed 01/07/25 @ 14:12 by TISHA Hicks) Living Situation History: Household Members: Children Household Members Other:: boyfriend and grandchildren Housing: House Are you a primary restorative care technician to a significant other at home: No Do you presently have visiting nurse or other home services: No Alcohol History Details: 1. How often do you have a drink containing alcohol?: a. Never 3. How often do you have six or more drinks on one occasion?: a. Never AUDIT-C Alcohol total score: 0 Currently Displaying Signs/Symptoms of Alcohol Withdrawal: No Tobacco History: Patient Tobacco Use Status: Former Tobacco user Tobacco use type: Cigarette Smoked in Last 30 Days: No e-Cigarette/Vaping Use: Former Use Patient Interested in Nicotine Replacement: No Second Hand Smoke Exposure: No Substance Use History: Use of substances other than those prescribed or required for medical reasons : No Currently Displaying Signs/Symptoms of Drug Intoxication Withdrawal: No Domestic Abuse History: Have you been hit, kicked, punched, or otherwise hurt by someone within the past year? If so, by whom?: No Do you feel safe in your current relationship?: Yes Is there a partner from a previous relationship who is making you feel unsafe now?: No Are you made to feel afraid or neglected: No Advance Directives: Advance Directives: Yes Advance Directives on File: Yes Advance Directives Date on File: 11/28/21 Homicidal Assessment: Do you have a plan to hurt others: No Plan Nutrition Assessment: Recently lost weight without trying: No Eating poorly because of decreased appetite: No Nutrition Risks: No Nutritional Risk Patient : No : No Poor oral hygiene: No Occupation Assessmet: service: No Current occupational status: unemployed Current occupational status: retired Second hand tobacco smoke exposure: No Oncology Screenings - ECOG Performance Status ECOG Performance Status: 1 Home Medications and Allergies Current Medications: Current Medications Acetaminophen (Acetaminophen 325 Mg Tablet) 975 mg PO Q6H PRN PRN Reason: Pain, Mild 1-3,fever,headache Last Admin: 01/16/25 21:01 Dose: 975 mg Albuterol/Ipratropium (Albuterol/Iprat 2.5/0.5mg 3 Ml Ampul.Neb) 3 ml INHALE Q4H PRN PRN Reason: Shortness of Breath/Wheezing Benzonatate (Benzonatate 100 Mg Capsule) 100 mg PO TID PRN PRN Reason: Cough Betamethasone Dipropion Augmented (Betamethasone Dip Aug 0.05% Cr 15 Gm Tube) 1 appl TOPICAL BID [facility] Last Admin: 01/18/25 08:33 Dose: 1 appl Calcium Carbonate (Calcium Carbonate 750 Mg Tab.Chew) 750 mg PO Q4H PRN PRN Reason: Heartburn Clonidine HCl (Clonidine Hcl 0.2 Mg Tablet) 0.2 mg PO BEDTIME [facility]; Protocol Last Admin: 01/17/25 22:22 Dose: 0.2 mg Empagliflozin (Empagliflozin 10 Mg Tablet) 10 mg PO DAILY [facility] On Hold: 01/16/25 11:49 Last Admin: 01/16/25 07:59 Dose: 10 mg Escitalopram Oxalate (Escitalopram Oxalate 10 Mg Tablet) 10 mg PO DAILY [facility] Last Admin: 01/18/25 08:31 Dose: 10 mg Fluticasone/Vilanterol (Fluticasone/Vilanterol 200/25 Blst.W.Dev) 1 puff INHALE RDAILY [facility] Last Admin: 01/18/25 07:35 Dose: 1 puff Furosemide (Furosemide 40 Mg Tablet) 40 mg PO BIDWM [facility]; Protocol Last Admin: 01/18/25 08:31 Dose: 40 mg Loratadine (Loratadine 10 Mg Tablet) 10 mg PO DAILY [facility] Last Admin: 01/18/25 08:31 Dose: 10 mg Magnesium Hydroxide (Milk Of Magnesia 30 Ml Oral.Susp) 30 ml PO DAILY PRN PRN Reason: Constipation Melatonin (Melatonin 3 Mg Tablet) 6 mg PO BEDTIME PRN PRN Reason: Insomnia Ondansetron HCl (Ondansetron Hcl 4 Mg/2 Ml Vial) 4 mg IVPUSH Q8H PRN PRN Reason: Nausea and Vomiting Last Admin: 01/15/25 23:47 Dose: 4 mg Oxycodone HCl (Oxycodone Hcl Immed Release 5 Mg Tablet) 5 mg PO Q6H PRN PRN Reason: Pain, Severe (Pain Scale 7-10) Last Admin: 01/15/25 23:47 Dose: 5 mg Sodium Chloride (0.9 % Sodium Chloride Flush 3 Ml Syringe) 3 ml IVFLUSH [facility] Last Admin: 01/18/25 08:31 Dose: Not Given Tamoxifen Citrate (Tamoxifen Citrate 10 Mg Tablet) 20 mg PO DAILY [facility] Last Admin: 01/18/25 08:31 Dose: 20 mg Home Medications ?Medication ?Instructions ?Recorded ?Confirmed ?Type cetirizine 10 mg tablet 20 mg PO DAILY 09/09/24 01/15/25 History tamoxifen 20 mg tablet 20 mg PO DAILY 09/09/24 01/15/25 History potassium chloride 20 mEq 20 meq PO BID 11/26/24 01/15/25 History tablet,extended release empagliflozin 10 mg tablet 10 mg PO DAILY 01/15/25 01/15/25 History (Jardiance) fluticasone furoate 200 1 ea inhalation DAILY 01/15/25 01/15/25 History mcg-vilanterol 25 mcg/dose inhalation powder (Breo Ellipta) Allergies Allergy/AdvReac Type Severity Reaction Status Date / Time No Known Allergies Allergy Verified 01/15/25 11:43 Exam Vital signs: Vital Signs Temp 98.8 F 01/18/25 11:00 Pulse 64 01/18/25 11:00 Resp 18 01/18/25 11:00 BP 130/61 01/18/25 11:00 Pulse Ox 96 01/18/25 11:00 O2 Del Method Room Air 01/18/25 11:00 O2 Flow Rate 1 01/17/25 02:51 Intake & Output 01/17/25 01/18/25 01/18/25 18:59 06:59 18:59 Intake Total 1700 / 2100 400 / 2100 Output Total 900 / 2610 1710 / 2610 Balance 800 / -510 -1310 / -510 Urine Output (Average ml/kg/hr) 0.96 1.82 Intake: Intake, Oral Amount 1000 / 1400 400 / 1400 Intake (Blood Product) Amount 700 / 700 Red Blood Cells (E0336) Unit 350 / 350 [id number] Red Blood Cells (E0336) Unit 350 / 350 [id number] Output: Output, Urine Amount 900 / 2610 1710 / 2610 Other: Urine Bathroom Bathroom Urine Color Yellow Yellow Weight 78.2 kg BMI result Body Mass Index 30.5 - Constitutional Present: no acute distress - Routine HEENT Exam Head: Present: normal inspection Eye: Present: normal appearance ENT: Present: mucous membranes moist - Routine Neck Exam Present: full ROM - Routine Respiratory Exam Present: CTAB - Routine Cardiovascular Exam Cardiovascular: Present: RRR, S1, S2 - Routine Abdominal Exam Present: soft, nontender - Routine Rectal Exam Patient deferred: digital exam - Routine Extremities Exam Present: nontender - Routine Back/Spine/Pelvis Exam Back/Spine: Present: full ROM - Routine Skin Exam Present: intact - Routine Neurological Exam Present: alert, oriented X3 - Routine Psychiatric Exam Present: normal affect Data - Labs CBC & Chem 7: 01/18/25 06:51 01/18/25 06:51 Labs: Laboratory Last Values WBC 2.0 X10*3/uL (4.8-10.8) L 01/18/25 06:51 RBC 3.80 X10*6/uL (4.20-5.50) L 01/18/25 06:51 Hgb 8.7 g/dl (12.0-16.0) L 01/18/25 06:51 Hct 29.6 % (37.0-47.0) L 01/18/25 06:51 MCV 77.9 fL (80.0-98.0) L 01/18/25 06:51 MCH 22.9 pg (27.0-33.0) L 01/18/25 06:51 MCHC 29.4 g/dl (31.0-35.0) L 01/18/25 06:51 RDW 16.5 % (11.0-16.0) H 01/18/25 06:51 Plt Count 68 X10*3/uL (160-400) L 01/18/25 06:51 MPV 10.8 fL (9.4-12.3) 01/18/25 06:51 Immature Gran % (Auto) 0.0 % (0.0-0.4) 01/18/25 06:51 Neut % (Auto) 64.0 % (45-73) 01/18/25 06:51 Lymph % (Auto) 21.5 % (20-40) 01/18/25 06:51 Smith % (Auto) 13.5 % (2-11) H 01/18/25 06:51 Eos % (Auto) 0.5 % (0-4) 01/18/25 06:51 Baso % (Auto) 0.5 % (0-2) 01/18/25 06:51 Lymph # (Auto) 0.4 X10*3/uL (1.2-4.9) L 01/18/25 06:51 Smith # (Auto) 0.3 X10*3/uL (0.1-1.2) 01/18/25 06:51 Eos # (Auto) 0.0 X10*3/uL (0.0-0.4) 01/18/25 06:51 Baso # (Auto) 0.0 X10*3/uL (0.0-0.2) 01/18/25 06:51 Abs Immat Gran (auto) 0.00 X10*3/uL (0.00-0.03) 01/18/25 06:51 Absolute Neuts (auto) 1.3 x10*3/uL (2.0-8.3) L 01/18/25 06:51 Absolute Nucleated RBC 0.000 X10*3/uL (0.0-0.012) 01/18/25 06:51 Nucleated RBC % (auto) 0.0 /100WBC (0.0-0.2) 01/18/25 06:51 Smear Tech's Comments VERIFIED 01/18/25 06:51 VBG pH 7.39 (7.32-7.43) 01/15/25 12:39 VBG pCO2 37 mmHg 01/15/25 12:39 VBG pO2 62 mmHg 01/15/25 12:39 VBG HCO3 23 mmol/L (22-26) 01/15/25 12:39 VBG O2 Saturation TNP 01/15/25 12:39 VBG Base Excess -1.6 mmol/L 01/15/25 12:39 Sodium 141 mmol/L (135-145) 01/18/25 06:51 Potassium 3.2 mmol/L (3.3-5.1) L 01/18/25 06:51 Chloride 109 mmol/L (96-108) H 01/18/25 06:51 Carbon Dioxide 27 mmol/L (22-29) 01/18/25 06:51 Anion Gap 8 (12-20) L 01/18/25 06:51 BUN 16 mg/dL (9-16) 01/18/25 06:51 Creatinine 0.82 mg/dL (0.5-1.4) 01/18/25 06:51 Estim Creat Clear Calc 64.9 01/18/25 06:51 Estimated GFR > 60 01/18/25 06:51 Random Glucose 84 mg/dL (60-115) 01/18/25 06:51 Lactic Acid 1.1 mmol/L (0.5-2.0) 01/15/25 21:11 Calcium 8.0 mg/dL (8.4-10.2) L 01/18/25 06:51 Magnesium 1.8 mg/dL (1.6-2.6) 01/18/25 06:51 Iron 53 mcg/dL (30-160) 01/16/25 05:50 TIBC 326 mcg/dL (228-428) 01/16/25 05:50 % Saturation 16 % (15-50) 01/16/25 05:50 Unsat Iron Binding 273 ug/dL 01/16/25 05:50 Total Bilirubin 0.8 mg/dL (0.0-1.0) 01/15/25 12:35 Direct Bilirubin 0.3 mg/dL (0.0-0.5) 01/15/25 12:35 AST 24 U/L (5-31) 01/15/25 12:35 ALT 9 U/L (0-31) 01/15/25 12:35 Alkaline Phosphatase 66 U/L (39-117) 01/15/25 12:35 Troponin I High Sens 4.5 ng/L (<3.5-17.0) 01/15/25 12:35 NT-Pro-B Natriuret Pep 1370.1 pg/mL (<300) H 01/17/25 07:11 Total Protein 7.2 g/dL (6.5-8.0) 01/15/25 12:35 Albumin 2.8 g/dL (3.5-5.0) L 01/15/25 12:35 Vitamin B12 344 pg/mL (200-900) 01/16/25 05:50 Folate 10.2 ng/mL (> or = 4.0) 01/16/25 05:50 Procalcitonin 0.03 ng/mL 01/15/25 21:11 Stool Occult Blood NEGATIVE (NEGATIVE) 01/15/25 18:23 Influenza Type A (PCR) NEGATIVE (Negative) 01/15/25 12:35 Influenza Type B (PCR) NEGATIVE (Negative) 01/15/25 12:35 RSV RNA Qual (PCR) NEGATIVE (Negative) 01/15/25 12:35 SARS-CoV-2 RNA (RT-PCR) NEGATIVE (Negative) 01/15/25 12:35 Blood Type A Positive 01/15/25 18:23 Antibody Screen NEGATIVE 01/15/25 18:23 Crossmatch See Detail 01/15/25 18:23 - Imaging Radiologist's impression: ITS Impressions Chest X-Ray 01/15/25 11:51 IMPRESSION: 1. Chest port in good position. 2. Mild interstitial pulmonary edema. Small right pleural effusion. 3. Right basilar airspace opacity, either representing atelectasis, alveolar edema, or possibly pneumonia in the appropriate clinical setting. Electronically signed by: Nnamdi Lee MD 01/15/2025 12:01 PM EST RP Chest CTA 01/15/25 16:44 IMPRESSION: There is spiculated lesion in the anterior right upper lobe measuring 1.1 x 2.2 cm contacting pleura that could represent neoplasm. Consider PET/CT or consultation for biopsy. Moderate right and small left pleural effusions have increased since the prior examination and there is associated compressive atelectasis. There is pulmonary vascular congestion. Splenomegaly. There are no filling defects to suggest pulmonary embolus. Fleischner guidelines were followed. Electronically signed by: Dennis Borja MD 01/15/2025 05:35 PM EST RP Chest X-Ray 01/18/25 09:40 IMPRESSION: Decreased right pleural effusion without pneumothorax. Vague densities in the bilateral middle third lung zones could represent atelectasis, pneumonia, or edema. Electronically signed by: Dennis Borja MD 01/18/2025 10:52 AM EST Assessment and Plan Patient Active problem list reviewed?: Yes (1) Mass of lung Status: Acute Assessment and plan: 70-year-old lady, with previous history of breast cancer status post chemo and radiation. She is being treated for dermatomyositis by Rheumatology. Has been on prednisone, azathioprine, Plaquenil. She has been maintained on IVIG. Dr. Elias, supervisor throwing department from [employer] is trying to arrange for Valdemar, (inhibits the classical pathway of complement.). 01/15 CTA of the chest revealed: There is spiculated lesion in the anterior right upper lobe measuring 1.1 x 2.2 cm contacting pleura that could represent neoplasm. Consider PET/CT or consultation for biopsy. Moderate right and small left pleural effusions have increased since the prior examination and there is associated compressive atelectasis. There is pulmonary vascular congestion. Splenomegaly. There are no filling defects to suggest pulmonary embolus. DIFFERENTIAL DIAGNOSIS: 1. POST COVID: Despite being rare, solitary pulmonary nodules with irregular margins are 1 of the many faces of COVID-19 infection. 2. GRANULOMATOUS LUNG DISEASE. 3. SARCOIDOSIS. 4. MALIGNANCY. She had actually undergone thoracentesis on 12/25 by interventional Radiology. This revealed: No evidence of malignancy. She underwent a thoracentesis again today. Her breathing has improved since then. PLAN: She will be going home later today. Will follow-up on the pleural fluid as an outpatient. We then decide about further course of action. Regarding consideration of PET scan versus a lung biopsy. She will see Dr. Hu as an outpatient. She has had chronic pancytopenia. CBC from today: WBC 2, HGB 8.7, HCT 29.6, PLT 68. Most likely related to the chemo immunotherapy for her dermatomyositis. She receive 2 units of blood. Her blood count has improved. Workup for other causes of anemia in progress. Iron studies: 53/326/16. B12 344, Folate 10.2. Thank you for the consult, Will follow. CC: Dr. Fiore - Time Spent With Patient Time Spent with Patient (in minutes): 25
--- NOTE | 2025-01-18 14:36 | MHC.CM.PN ---
Patient has been medically cleared for dc to home today, self care.Last IMM was addressed on 01/16/2025.
[2025-01-18 15:02] LABS: Appearance Urine Cloudy; Glucose Urine UA 100 mg/dL (Negative); PH 6.0 (5.0-9.0); Specific Gravity - Urine 1.010 (1.005-1.025); UMIC TRIGGER UACC YES
[2025-01-18 15:08] LABS: UACC Culture Trigger YES
[2025-01-18] MEDS: Heparin Sodium,Porcine Flush 50 UNITS/5 ML SYRINGE IVFLUSH (15:53)
[2025-01-19 23:39] LABS: Strep Pneumo Ag urine Not Detected (Not Detected)
== END 2025-01-18 16:04 | disposition home or self-care (01) | DRG 186 ==
LOC: HO.ED 18:18 → HO.EDOVER 18:41 → HO.IMC 23:14
PROVIDERS: Physician Assistant; Physician Assistant Medical; Radiology Diagnostic Radiology; Admitting Provider Internal Medicine; Emergency Provider Emergency Medicine Emergency Medical Services; PCP Internal Medicine; Visit Provider Nurse Practitioner Acute Care
PROC: 0W993ZZ Drainage of Right Pleural Cavity, Percutaneous Approach (ICD-10-PCS; principal; 2025-01-18 09:00)
DX: J90 Pleural effusion, not elsewhere classified (principal); D61.811 Other drug-induced pancytopenia; J96.01 Acute respiratory failure with hypoxia; M33.13 Other dermatomyositis without myopathy; N39.0 Urinary tract infection, site not specified; I11.0 Hypertensive heart disease with heart failure; F41.9 Anxiety disorder, unspecified; F32.A Depression, unspecified; C50.911 Malignant neoplasm of unspecified site of right female breast; J44.9 Chronic obstructive pulmonary disease, unspecified; R91.1 Solitary pulmonary nodule; Z98.84 Bariatric surgery status; Z20.822 Contact with and (suspected) exposure to COVID-19; T45.1X5A Adverse effect of antineoplastic and immunosuppressive drugs, initial encounter; Z87.891 Personal history of nicotine dependence; Z79.810 Long term (current) use of selective estrogen receptor modulators (SERMs); Z79.899 Other long term (current) drug therapy
CPT/HCPCS: 32555; 36415; 71045; 71046; 71275; 80048; 80076; 81001; 81003; 82272; 82607; 82746; 82803; 83540; 83605; 83735; 83880; 84145; 84484; 85025; 86850; 86900; 86901; 86923; 87040; 87070; 87073; 87086; 87088; 87186; 87205; 87449; 87637; 87899; 88112; 88305; 93005; 94640; 99285; J1642; J1938; J2003; J2405; P9016; Q9967

== ENCOUNTER → 2025-01-15 11:45 | Outpatient (BNV) | payer MEDICARE, SELFPAY | PROVIDERS: Admitting Provider Internal Medicine; Emergency Provider Emergency Medicine Emergency Medical Services; PCP Internal Medicine; Visit Provider Internal Medicine Cardiovascular Disease | DX: R94.31 Abnormal electrocardiogram [ECG] [EKG] (principal); R06.00 Dyspnea, unspecified | CPT/HCPCS: 93010 ==

== ENCOUNTER → 2025-01-15 11:45 | Outpatient (BNV) | payer MEDICARE, SELFPAY | PROVIDERS: Emergency Provider Emergency Medicine Emergency Medical Services; PCP Internal Medicine; Visit Provider Radiology Diagnostic Radiology | DX: J81.0 Acute pulmonary edema (principal); J90 Pleural effusion, not elsewhere classified; J98.11 Atelectasis; R16.1 Splenomegaly, not elsewhere classified; R91.8 Other nonspecific abnormal finding of lung field | CPT/HCPCS: 71045 ==

== ENCOUNTER 2025-01-15 18:27 | Outpatient (BNV) | payer MEDICARE, SELFPAY | END 2025-01-18 09:31 | PROVIDERS: Admitting Provider Internal Medicine; Emergency Provider Emergency Medicine Emergency Medical Services; PCP Internal Medicine; Visit Provider Radiology Diagnostic Radiology | DX: J90 Pleural effusion, not elsewhere classified (principal) | CPT/HCPCS: 32555 ==

== ENCOUNTER → 2025-01-15 18:27 | Outpatient (BNV) | payer MEDICARE, SELFPAY | PROVIDERS: Admitting Provider Internal Medicine; Emergency Provider Emergency Medicine Emergency Medical Services; PCP Internal Medicine; Visit Provider Internal Medicine Pulmonary Disease | DX: J90 Pleural effusion, not elsewhere classified (principal); R91.1 Solitary pulmonary nodule | CPT/HCPCS: 99222 ==

== ENCOUNTER → 2025-01-15 18:27 | Outpatient (BNV) | payer MEDICARE, SELFPAY | PROVIDERS: Admitting Provider Internal Medicine; Emergency Provider Emergency Medicine Emergency Medical Services; PCP Internal Medicine; Visit Provider Internal Medicine Medical Oncology | DX: R91.8 Other nonspecific abnormal finding of lung field (principal); Z85.3 Personal history of malignant neoplasm of breast; J90 Pleural effusion, not elsewhere classified | CPT/HCPCS: 99222 ==

== ENCOUNTER → 2025-01-15 18:27 | Outpatient (BNV) | payer MEDICARE, SELFPAY | PROVIDERS: Admitting Provider Internal Medicine; Emergency Provider Emergency Medicine Emergency Medical Services; PCP Internal Medicine; Visit Provider Nurse Practitioner Acute Care | DX: J96.01 Acute respiratory failure with hypoxia (principal); R65.10 Systemic inflammatory response syndrome (SIRS) of non-infectious origin without acute organ dysfunction; I50.33 Acute on chronic diastolic (congestive) heart failure; J90 Pleural effusion, not elsewhere classified; R91.1 Solitary pulmonary nodule; D64.9 Anemia, unspecified; I10 Essential (primary) hypertension | CPT/HCPCS: 99223; 99232 ==

== ENCOUNTER 2025-01-19 10:29 | Outpatient (REF) | payer MEDICARE, SELFPAY ==
--- NOTE | ~2025-01-19 | MM_ITS ---
EXAMINATION: DXA BONE DENSITY AXIAL HISTORY: Osteoporosis TECHNIQUE: [employer] Dual energy absorptiometry (DEXA) of the lumbar spine, total left hip, and femoral neck was performed. COMPARISON: Comparison is made with the prior examination dated July 2021. FINDINGS: The bone mineral density of the lumbar spine is 1.116 g/cm2, corresponding to a T-score of -0.5, and a Z-score of 0.8. This is indicative of normal bone mineral density. This represents a BMD change of -6.4% compared to the prior exam. This is statistically significant. The bone mineral density of the left total hip is 0.681 g/cm2, corresponding to a T-score of -2.6, and a Z-score of -1.4. This is indicative of osteoporosis. This represents a BMD change of -9.7% compared to the prior exam. This is statistically significant. The bone mineral density of the left femoral neck is 0.678 g/cm2, corresponding to a T-score of -2.6, and a Z-score of -1.2. This is indicative of osteoporosis. This represents a BMD change of -8.6% compared to the prior exam. This is statistically significant. FRACTURE RISK: The FRAX index suggests a ten year probability of major osteoporotic fracture of 36.2%, and of hip fracture 10.3%. MM/XR DEXA axial skeleton IMPRESSION: Based on bone mineral density, and according to World Health Organization (WHO) criteria, the diagnosis is consistent with osteoporosis based on lowest T score of -2.6 in the left total hip and femoral neck. Bone mineral density is decreased compared to July 2021 exam and fracture risk is high. Pharmacological treatment if not already prescribed should be considered. A follow-up bone density test is recommended in one year to monitor response to therapy. Statistically, 68% of repeat scans fall within 1 SD (+/- 0.010 g/cm2 for AP spine L1-L4) and 1 SD (+/- 0.012 g/cm2 for femur total) FRAX is a trademark of the [employer]'s [employer] Metabolic Bone Disease, a World Health Organization (WHO) Collaborating Center. Electronically signed by: Xiomara Grimes MD 01/19/2025 11:42 AM EST
--- OUTSIDE RECORDS SUMMARY | 2025-01-19 12:07 | XMS_ITS | Clinical Summary ---
Author Organization [facility] Address [address] [place] [address] Phone Care Team Providers Care Advanced Quality Engineer Name Role Phone Unavailable Primary Care Provider Unavailabl e Encounters Date Type Department Care Team Description 11/03/2024 3:06 PM EDT - 11/03/2024 11:59 PM EDT Hospital Encounter [facility] PET Scan [address] [place] [address] History of right breast cancer [...] Signed Date: 11/04/2024 14:34 ET Workstation ID: [id number] Transcribed By: Self Edit Transcribed Date: 11/04/2024 [...] Signed Date: 11/04/2024 14:34 ET Workstation ID: [id number] Transcribed By: Self Edit Transcribed Date: 11/04/2024 14:27 ET Savannah Lind APN IMG NM PROCEDURES Final Re sult from Last 3 Months Insurance MEDICARE
--- OUTSIDE RECORDS SUMMARY | 2025-01-19 12:07 | XMS_ITS | Clinical Summary ---
Author Organization [facility] Address [address] [place] [id number] Phone Care Team Providers Care Director Of Purchasing Name Role Phone Leslie Washington NP Primary Care Provider Allergies No known active allergies Medications DULoxetine [...] 1,000 mcg by mouth daily. Active vitamins A,C,W-fiev-mjphmp (PRESERVISION AREDS) [id number] Cap Take 1 capsule by mouth 2 [...] patient's age to complete this topic IPV VACCINES Aged Out No longer eligi ble [...] Health Maintenance [place] [phone] HEALTH SAFETY NET PARTIAL MEDICARE [facility] MEDICARE [place] [phone] HEALTH SAFETY NET PARTIAL MEDICARE [facility] MEDICARE SUPPLEMENT [facility] [place] [phone] [facility] NET PARTIAL MEDICARE [facility] MEDICARE SUPPLEMENT [facility] PARTIAL MEDICARE [facility] [place] [phone] HEALTH SAFETY NET PARTIAL MEDICARE [facility] [place] [phone] HEALTH SAFETY NET PARTIAL MEDICARE [facility] MEDICARE SUPPLEMENT Care Teams Director Of Purchasing Relationship Specialty Start Date End Date Leslie Washington NP [address] [place] [address] [place] [address] PCP - General 10/05/21 Additional Source Comments The information contained in this document represents components of the legal health record. It is not the complete legal health record.[facility]
== END 2025-01-19 10:30 | disposition home or self-care (01) ==
LOC: HO.MAMMO 10:29
PROVIDERS: PCP Internal Medicine; Visit Provider Nurse Practitioner Family
DX: M81.0 Age-related osteoporosis without current pathological fracture (principal)
CPT/HCPCS: 77080

== ENCOUNTER → 2025-01-19 10:30 | Outpatient (BNV) | payer MEDICARE, SELFPAY | PROVIDERS: PCP Internal Medicine; Visit Provider Radiology Diagnostic Radiology | DX: E28.39 Other primary ovarian failure (principal) | CPT/HCPCS: 77080 ==

== ENCOUNTER 2025-02-03 11:08 | Outpatient (AMB) | payer MEDICARE, SELFPAY ==
--- NOTE | 2025-02-03 11:10 | A.OFFVIS_ITS ---
Vital Signs 02/03/25 11:23 Height 5 ft 3 in Weight 160 lb 11.472 oz BMI 28.5 BP 132/74 Blood Pressure Location Lt brachial Position Sitting Pulse 53 Pulse Source Pulse Oximeter Pulse Oximetry (%) 98 Oxygen Delivery Method Room Air Intake Visit Reasons: follow up/ per md Intake Note: Patient presents for Dermatomyositis and ER follow up. Allergies No Known Allergies Allergy (Verified 02/03/25 11:18) Medication List - Last Reconciled 02/03/25 by Kasandra Pinto MD cetirizine 20 mg PO DAILY citalopram 20 mg PO DAILY clobetasol 0.05% 1 appl topical BID clonidine HCl 0.2 mg PO BEDTIME empagliflozin (Jardiance) 10 mg PO DAILY fluticasone furoate-vilanterol 200-25 mcg/dose (Breo Ellipta) 1 ea inhalation DAILY furosemide 40 mg PO BID mycophenolate mofetil 1,000 mg (2 x 500 mg) PO BID 90 days potassium chloride ER 20 mEq PO BID tamoxifen 20 mg PO DAILY HPI Comments Details: Patient is a 70-year-old female with heart failure with preserved ejection fraction, chronic major depression, hypertension, anxiety, breast cancer currently in remission, TIF 1 gamma refractory dermatomyositis here today for follow up Interval History: Patient last seen 12/11/24 with me - On IVIG 2g/kg, and MMF 1000mg bid - Dry cough and then in the AM will have a productive cough - Completed medrol - Joint pain and rash persists - Started on Anifrolumab 300mg every 4 weeks Since then had hospital admission (01/15 - 01/18) for hypertensive emergency complicated by acute on chronic heart failure While admitted had CT scan of the chest showing spiculated lesion of the right lung concerning for neoplasm Followed up with Oncology and Pulmonology Currently - On IVIG 2g/kg, and MMF 1000mg bid - Has not started anifrolumab as yet - Breathing improved but still having SOB - Dermatomyositis rash persists and is worsening over her hands and upper body - Scalp also involved Rheumatologic History: Patient with Tif 1 gamma positive antibody dermatomyositis Found to have breast cancer in 2021. Patient last seen 12/04/2023. At that time she had started PT, had gone to 3 sessions, but stating that her muscle weakness is about the same. Receiving IVIG 2 grams/kilogram every 4 weeks. Azathioprine was recently discontinued She was started on hydroxychloroquine at that visit Skin biopsy 07/2021 interface dermatitis, +++TIF gamma Ab Dr Krishna 08/10/2021 prednisone started. azathioprine added OSIRIS 1:80, CPK 991, marked proximal muscle weakness, CLARK neg, anti-SRP negative; aldolase WNL Associated breast cancer found 11/2021: Azathioprine stopped due to chemoRx 11/2021: flare of skin rash with taper of prednisone to 30mg 12/2021: monthly IV IVIG started 02/2022: prednisone stopped. Aza restarted. DC in 2023 due to pancytopenia 11/2023: Hydroxychloroquine started - DC 01/2024 due to worsening rash 02/2024: Worsening dermatomyositis with rash and muscle weakness Repeat PET Scan without evidence of recurrent cancer 03/2024 Attempted to get tofacitinib approved but this was denied by insurance 03/2024: Rituxumab 2000mg every 6 months IV Current Rheumatology Medication(s): IVIG 2g/kg every month MMF 1000mg bid Anifrolumab 300mg IV every 4 weeks (has not started) [facility] Medical History (Updated 02/03/25 @ 12:46 by Kasandra Pinto MD) Osteoporosis Chronic anemia Anemia Congestive heart failure SIRS (systemic inflammatory response syndrome) Dermatomyositis Acute on chronic heart failure with preserved ejection fraction (HFpEF) Anemia Pancytopenia Long-term current use of intravenous immunoglobulin (IVIG) Plaquenil adverse reaction in therapeutic use Nocturnal cough Pleural effusion History of right breast cancer Axillary adenopathy Bacteremia due to Klebsiella pneumoniae Acute hypokalemia UTI (urinary tract infection) Abdominal pain Atrial arrhythmia CHF (congestive heart failure) Acute diastolic (congestive) heart failure Diarrhea Pancolitis Colitis Nonsustained supraventricular tachycardia Port-A-Cath in place Pain in both feet Pedal edema History of COVID-19 Invasive ductal carcinoma of right breast Breast cancer, right Breast calcification, right Encounter to establish care Lumbar degenerative disc disease Hypertension Major depression, chronic Insomnia Anxiety Surgical History Hx of colonoscopy Status post right breast lumpectomy History of arthroscopic knee surgery History of hysterectomy History of section History of cholecystectomy History of gastric bypass History of fusion of cervical spine History of tonsillectomy Family History Mother No problems noted. Father Breast cancer Bone cancer Brother Substance use disorder Paternal Aunt Breast cancer Social History Household Members: Children Household Members Other:: boyfriend and grandchildren Housing: House Are you a primary healthcare customer service to a significant other at home: No Do you presently have visiting nurse or other home services: No Alcohol intake: former Comment: Pedal Edema and pain- uses cane Patient Tobacco Use Status: Former Tobacco user Tobacco use type: Cigarette e-Cigarette/Vaping Use: Former Use Second Hand Smoke Exposure: No Advance Directives Date on File: 11/28/21 service: No Current occupational status: unemployed and retired Cognitive needs: No Hearing needs: No Vision needs: Yes (glasses) Female Reproductive History Menstrual Age of Menarche: 17 Review of Systems Narrative as above Physical Exam Exam Exam: Vital signs reviewed Physical Examination CONSTITUITIONAL Patient alert and cooperative. Well appearing and in no apparent painful distress MSK Hands * Right Hand: Able to make a fist. * Left Hand: Able to make a fist. Wrists * Right Wrist: Full ROM. 70 degrees of wrist flexion, 80 degrees of wrist extension. * Left Wrist: Full ROM. 70 degrees of wrist flexion, 80 degrees of wrist extension. Elbows * Right Elbow: Full ROM. No swelling or TTP. No TTP of the medial and lateral epicondyles * Left Elbow: Full ROM. No swelling or TTP. No TTP of the medial and lateral epicondyles Shoulders * Right shoulder: Full ROM. No swelling noted. No TTP of the AC joint, subacromial bursa or posterior shoulder * Left shoulder: Full ROM. No swelling noted. No TTP of the AC joint, subacromial bursa or posterior shoulder Knees * Right knee: Full ROM. No swelling noted. No TTP of the knee joint lie or pes anserine bursa * Left knee: Full ROM. No swelling noted. No TTP of the knee joint lie or pes anserine bursa. * Crepitations felt bilaterally Ankles * Right ankle: Good ankle dorsiflexion and plantar flexion. No swelling. No TTP of the ankle joint * Left ankle: Good ankle dorsiflexion and plantar flexion. No swelling. No TTP of the ankle joint Feet * Right foot: Negative squeeze test * Left foot: Negative squeeze test Tender points? * No tenderness to palpation of the bilateral trapezius, supraspinatus, anterior costochondral junctions, bilateral suboccipital muscle insertions SKIN Gouttron's papules (worsening) Rash on her back and upper chest worsening erythema to face Still having scaling to her scalp Right Left Neck 5 [employer] strength 5 5 Wrist flexion 5 5 Wrist extension 5 5 Elbow extension 5 5 Elbow flexion 5 5 Shoulder abduction 4 5 Shoulder adduction 4 5 Hip flexion 5 5 Knee extension 5 5 Knee flexion 4 4 Ankle dorsiflexion 5 5 Ankle plantar flexion 5 5 Vital Signs: Last Vital Signs Pulse 53 02/03/25 11:23 BP 132/74 02/03/25 11:23 Pulse Ox 98 02/03/25 11:23 Oxygen Delivery Method Room Air 02/03/25 11:23 BMI result Body Mass Index 28.5 Results Reviewed Results Reviewed: Laboratory Tests 02/02/25 09:22 WBC 1.4 L RBC 3.96 L Hgb 9.7 L Plt Count 66 L Sodium 142 Potassium 3.2 L Chloride 110 H Carbon Dioxide 26 BUN 16 Creatinine 0.85 AST 27 ALT 9 CTA Lung 01/2025 FINDINGS: QUALITY OF STUDY/CONTRAST BOLUS: Suboptimal with incomplete opacification of tertiary branches. PULMONARY ARTERIES: No filling defects or pulmonary THORACIC AORTA: Moderate atherosclerotic calcifications are present. The aneurysm. There is no dissection. LUNGS AND PLEURA: There is a moderate right pleural effusion and compressive atelectasis in the right lower lobe and right middle lobe, increased from the prior. In the anterior right upper lobe, there is a 1.1 x 2.2 cm focal low attenuating area contacting pleura with spiculated margins is unchanged. There is a small left pleural effusion and minimal compressive atelectasis, increased from the prior. Pulmonary vessels are mildly prominent. MEDIASTINUM: Unremarkable CORONARY ARTERY CALCIFICATION: None CHEST WALL/AXILLA: No axillary or internal mammary lymphadenopathy. There are postsurgical changes in the right breast with skin thickening and retraction of the surface similar to the prior. UPPER ABDOMEN: The spleen measures 14.7 cm. BONES: Multilevel degenerative changes with disc space narrowing and osteophytes is again noted. IMPRESSION: There is spiculated lesion in the anterior right upper lobe measuring 1.1 x 2.2 cm contacting pleura that could represent neoplasm. Consider PET/CT or consultation for biopsy. Moderate right and small left pleural effusions have increased since the prior examination and there is associated compressive atelectasis. There is pulmonary vascular congestion. Splenomegaly. There are no filling defects to suggest pulmonary embolus. Fleischner guidelines were followed. Assessment & Plan Assessment & Plan (1) Lesion of lung: Code(s): R91.1 - Solitary pulmonary nodule Category: Medical Plan: #Lesion of lung Patient is a 70-year-old female with TIF 1 gamma positive dermatomyositis, history of breast cancer status post chemotherapy currently in remission now with new spiculated right lung lesion concerning for neoplasm. Location not amenable to biopsy. We need to repeat the PET scan Plan - Urgent PET Scan (2) Dermatomyositis: Comment: on skin biopsy 07/2021 +++TIF gamma Ab- Dr Krishna 08/10/2021 prednisone started. azathioprine added OSIRIS 1:80, CPK 991, marked proximal muscle weakness, CLARK neg, anti-SRP negative; aldolase WNL Associated breast cancer found 11/2021: Azathioprine stopped due to chemoRx 11/2021: flare of skin rash with taper of prednisone to 30mg 12/2021: monthly IV IVIG started 02/2022: prednisone stopped. Aza restarted. DC in 2023 due to pancytopenia Hydroxychloroquine started 11/2023, DC 01/2024 due to worsening rash 03/2024: Rituxumab started stopped 07/2024: MMF, IVIG and Anifrolumab Code(s): M33.90 - Dermatopolymyositis, unspecified, organ involvement unspecified Category: Medical Plan: #Dermatomyositis Patient is a 70-year-old female with dermatomyositis. Current disease is characterized by significant rash. Her muscle weakness has stabilized. Course complicated by recent hospital admission for hypertensive emergency with elevated BP, and acute on chronic heart failure During the admission she was found to have spiculated lesion of the anterior right upper lobe, concerning for neoplasm Given the refractory dermatomyositis in a patient that is TIF1 gamma positive, we need to repeat the PET CT scan to rule out cancer Seen by pulm and oncology, lesion is not easily accessible Plan - Continue IVIG 2g/kg every 4 weeks - Continue MMF 1000mg bid - Anifrolumab 300mg IV every 4 weeks (2 weeks after IVIG) - Urgent PET Scan - Close follow up every 2 months - Labs before next visit: Labs before visit: CBC, CMP, ESR, CRP, C3, C4, dsDNA, CK, Aldolase (3) Osteoporosis: Comment: DEXA 07/2021: AP Spine 0.1, Left femur neck -2.1, Left femur total -2.0. FRAX 25.7/2.4 DEXA 01/2025: AP Spine -0.5, Left femur neck -2.6, Left femur total -2.13 September 2021: Alendronate started because of need for high-dose prednisone Code(s): M81.0 - Age-related osteoporosis without current pathological fracture Category: Medical Qualifiers: Osteoporosis type: age-related Presence of current pathological fracture: without current pathological fracture Qualified Code(s): M81.0 - Age- related osteoporosis without current pathological fracture Plan: #Osteoporosis Patient with repeat bone density showing new osteoporosis. Currently on alendronate however this does not seem to have been effective since her bone density has worsened by 6 to 10% when compared to her bone density done in 2021. Will get the PET Scan before changing medication Plan - Change alendronate once results of the PET scan has resulted - Will discuss with patient at next visit Prolia vs IV Reclast (4) Lupus (systemic lupus erythematosus): Code(s): M32.9 - Systemic lupus erythematosus, unspecified Qualifiers: Systemic lupus erythematosus type: unspecified Systemic lupus erythematosus organ involvement: unspecified Qualified Code(s): M32.9 - Systemic lupus erythematosus, unspecified Plan: #Lupus Patient is a 70-year-old female with known myositis now with inflammatory arthritis type symptoms and previous rash including a malar type rash. It is possible that she may have an overlap syndrome lupus as well as myositis. Ideally would like to put her on methotrexate for her joint symptoms and the rash however given her pancytopenia methotrexate is contraindicated. Has tried and failed Plaquenil, azathioprine and other agents in the past. Given that her predominant complaint is her skin I think she would be a good candidate for anifrolumab Plan - Anifrolumab infusions 300mg every 4 weeks (5) Pancytopenia: Code(s): D61.818 - Other pancytopenia Category: Medical Plan: #Pancytopenia Unsure of the underlying cause, this could be in the setting of her dermatomyositis versus lupus versus bone marrow suppression. Follow up with Hematology (6) Encounter for prison use of mycophenolate mofetil: Code(s): Z79.624 - care home (current) use of inhibitors of nucleotide synthesis Plan: #Long-term Use of Mycophenolate/Mycophenolic Acid Discussed with patient the benefits and risks of mycophenolate/mycophenolic acid for the management of the rheumatic condition Benefits include improved disease control and reduction of mortality Risks include GI upset especially diarrhea, anemia, leukopenia, hepatotoxicity, lymphoproliferative malignancies, PML Mycophenolate and mycophenolic acid are teratogenic and should be avoided in patients who are desiring the Monitoring: CBC, LFTs, BMP Recommended holding medication during and for up to 1 week after resolution of a febrile illness (7) Long-term current use of intravenous immunoglobulin (IVIG): Code(s): Z79.899 - 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 Category: Medical Plan: #Long-term use of IVIG Discussed with this patient the risks and benefits of IVIG use to the management of the rheumatic condition Benefits include improved disease control and maintenance of remission Risks include anaphylaxis, blood clots, transfusion related acute lung injury, hemolytic reaction, fluid overload, heart problems #Long-term use Anifrolumab Discussed with patient the risks and benefits of hydroxychloroquine in managing the rheumatic condition Benefits include: - Reduced pain, reduce mortality, maintenance of remission and reduction of flares Risks include: - Increased susceptibility to serious infections particularly viral infections like herpes zoster (shingles), respiratory tract infections and infusion related reactions Plan I spent 40 minutes reviewing the record (hospital admission, pulm and onc notes) and labs, taking a history, examining the patient, discussing the treatment plan, ordering diagnostic work up, PA for urgent PET Scan and documenting in the medical record Orders: Orders PET CT fusion skull to thigh Today R91.1 - Solitary pulmonary nodule, R91.8 - Other nonspecific abnormal finding of lung field Medications: New mycophenolate mofetil 1,000 mg (2 x 500 mg) PO BID 360 tabs 1RF 90 days M33.90 - Dermatopolymyositis, unspecified, organ involvement unspecified Coding Level of Care Code Est Pt Level 5 (79267) Complex visit Add On G2211 Diagnoses Lesion of lung R91.1 Dermatomyositis M33.90 Age-related osteoporosis without current pathological fracture M81.0 Osteoporosis type: age-related Presence of current pathological fracture: without current pathological fracture Systemic lupus erythematosus, unspecified SLE type, unspecified organ involvement status M32.9 Systemic lupus erythematosus type: unspecified Systemic lupus erythematosus organ involvement: unspecified Pancytopenia D61.818 Encounter for prison use of mycophenolate mofetil Z79.624 Long-term current use of intravenous immunoglobulin (IVIG) Z79.899
[2025-02-03 11:23] VITALS: BP 132/74; PULSE 53; O2SAT 98; BMI 28.5
--- OUTSIDE RECORDS SUMMARY | 2025-02-03 13:53 | XMS_ITS | Clinical Summary ---
Author Organization [facility] Address [address] [place] [id number] Phone Care Team Providers Care Solution Developer Name Role Phone Leslie Washington NP Primary Care Provider [phone] Allergies No known active allergies Medications DULoxetine [...] 1,000 mcg by mouth daily. Active vitamins A,C,H-fidm-goktjm (PRESERVISION AREDS) 14,320-226-200 atkg-jd-fhbg Cap Take 1 capsule by mouth 2 [...] Maintenance Insurance HEALTH SAFETY NET PARTIAL MEDICARE [facility] MEDICARE SUPPLEMENT [facility] Address: [facility] CLAIMS DIVISION [address] [facility] [place] [address] [place] [address] HEALTH SAFETY NET PARTIAL MEDICARE RAILROAD Member Subscriber Plan / Payer (Ef fective 2022-) Name:Kate Almaguer Member ID:[id number] Relation to Subscriber:Self Name:Kate Almaguer Subscriber ID:[id number] Payer ID:[id number] Group ID:Not on file Type:Medicare Address: [place] [id number] [facility] MEDICARE SUPPLEMENT [facility] Address: [facility] CLAIMS DIVISION [address] [place] [address] [facility] PARTIAL MEDICARE RA[employer]ROAD [facility] MEDICARE SUPPLEMENT [facility] [place] [address] [facility] SAFETY NET PARTIAL MED[facility]ARE [facility] Member Subscriber Plan / Payer (Ef fective 2022-Present) Name:Kate Almaguer Member ID:[id number] Relation to Subscriber:Self Name:Kate Almaguer Subscriber ID:[id number] Payer ID:[id number] Group ID:Not on file Type:Medicare Address: [address] MEDICARE SUPPLEMENT HEALTH SAFETY NET PARTIAL MEDICARE [facility]IC[facility] SUPPLEMENT [facility] [place] [address] HEALTH SAFETY NET PARTIAL MEDICARE [facility] MEDICARE SUPPLEMENT [facility] [place] [address] Care Teams Solution Developer Relationship Specialty Start Date End Date Leslie Washington NP [address] [place] [address] [place] [address] PCP - General 10/05/21 Additional Source Comments The information contained in this document represents components of the legal health record. It is not the complete legal health record.[facility]
--- OUTSIDE RECORDS SUMMARY | 2025-02-03 13:54 | XMS_ITS | Clinical Summary ---
Author Organization [facility] Address [address] [place] [address] Phone Care Team Providers Care Embossing Clerk Name Role Phone Unavailable Primary Care Provider Unavailabl e Encounters Date Type Department Care Team Description 11/03/2024 3:06 PM EDT - 11/03/2024 11:59 PM EDT Hospital Encounter [facility] PET Scan [address] [place] [address] History of right breast cancer [...] Signed Date: 11/04/2024 14:34 ET Workstation ID: [id number] Transcribed By: Self Edit Transcribed Date: 11/04/2024 [...] Signed Date: 11/04/2024 14:34 ET Workstation ID: [id number] Transcribed By: Self Edit Transcribed Date: 11/04/2024 14:27 ET Savannah Lind APN IMG NM PROCEDURES Final Re sult from Last 3 Months Insurance MEDICARE
== END 2025-02-03 12:33 | disposition home or self-care (01) ==
LOC: HO.RHES 11:08
PROVIDERS: PCP Internal Medicine; Visit Provider Student in an Organized Health Care Education/Training Program
DX: R91.1 Solitary pulmonary nodule (principal); M33.90 Dermatopolymyositis, unspecified, organ involvement unspecified; M81.0 Age-related osteoporosis without current pathological fracture; M32.9 Systemic lupus erythematosus, unspecified; D61.818 Other pancytopenia; Z79.624 Long term (current) use of inhibitors of nucleotide synthesis; Z79.899 Other long term (current) drug therapy
CPT/HCPCS: 99215; G2211

== ENCOUNTER → 2025-02-03 11:08 | Outpatient (BNVA) | payer MEDICARE, SELFPAY | PROVIDERS: PCP Internal Medicine; Visit Provider Student in an Organized Health Care Education/Training Program | DX: R91.1 Solitary pulmonary nodule (principal); M33.90 Dermatopolymyositis, unspecified, organ involvement unspecified; M81.0 Age-related osteoporosis without current pathological fracture; M32.9 Systemic lupus erythematosus, unspecified; D61.818 Other pancytopenia; Z79.624 Long term (current) use of inhibitors of nucleotide synthesis; Z79.899 Other long term (current) drug therapy | CPT/HCPCS: 99212 ==

== ENCOUNTER 2025-02-11 13:58 | Outpatient (AMB) | payer MEDICARE, OTHER, SELFPAY ==
[2025-02-11 14:03] VITALS: BP 148/68; PULSE 56; O2SAT 99; BMI 28.7
--- NOTE | 2025-02-11 14:03 | MHC.OFFVIS ---
Vital Signs 02/11/25 14:03 Height 5 ft 3 in Weight 162 lb 0.636 oz BMI 28.7 BP 148/68 H Blood Pressure Location Lt brachial Position Sitting Pulse 56 Pulse Source Pulse Oximeter Pulse Oximetry (%) 99 Oxygen Delivery Method Room Air Intake Visit Reasons: Pulmonary Nodule Accompanied by: Self / Same As Patient Allergies No Known Allergies Allergy (Verified 02/11/25 14:05) HPI Comments Details: The patient 70 year woman with right sided breast cancer. Started carboplatin/docetaxel/Herceptin/pertuzumab based chemotherapy x 15 cycles and now onHerceptin and pertuzumab maintenance. Patient follow-up adverse effects from the chemotherapy developing chemo related dermatomyositis, then UTI. She went to [place] in March 2022 and developed a left sided pneumonia and a small to moderate pleural effusion. She had a repeat CT chest 06/2022 with a residual effusion. Too small to tap. She has been having worsening LE edema. Actually gained 16lbs while visiting in [place]. Now on lasix 40mg daily. ECHO with normal EF, but, grade 2 diastolic dysfunction. 01/01/2023 the patient is here for a pulmonary follow-up visit. The patient now is feeling better. She lost a lot a weight partly because of the chemotherapy. Although now she is feeling better and she has having some hair grow back. She is also on the prednisone for the amount of myositis she takes that every other day. For respiratory status the patient is doing well. She does have the diuretic. The patient was able to decrease the diuresis since she is doing better. She is going to be monitoring her weights closely in addition to her lower extremity edema. She is going to follow the recommendations from Cardiology. Her last chest x-ray was done October 2022 with evidence of pulmonary vascular congestion but no pleural effusions. Will plan to repeat the x-ray in May or June when she comes back for follow-up. If the patient has any worsening symptoms prior to that she can always call us and have the x-ray done earlier. 07/09/2023 the patient is here for pulmonary follow-up visit. Overall she is doing very well from a respiratory status. The patient has been on the IVIG infusions in the appeared to be very affecting beneficial. She has no longer on prednisone. Her strength is coming back and now she is actually working. She continues diuresis. She is monitoring her weight. She is having right now some right flank discomfort and she is going to be seeing her primary care regarding the discomfort at this time. In the meantime the patient did have a chest x-ray which I personally reviewed from March 2023 without any evidence of any pleural effusions. She did have some minimal vascular congestion but nothing significant. Clinically the patient is doing well respiratory exam is reassuring. Will plan to follow-up in a year's time with a chest x-ray. If the patient develops any worsening symptoms prior to that she will call for an earlier assessment. 12/22/2024 the patient is here for a pulmonary follow-up visit. She does complain of significant dyspnea on exertion. Moderate severity. Even with minimal activity. She is working closely with Rheumatology regarding her connective tissue disease. She is trying to get a new medication. From a volume status she is doing a lot better. Her echo does demonstrate significant diastolic dysfunction. But she is responding well to her diuretics. She had an x-ray done in November 2024 which I personally reviewed demonstrating a moderate degree pleural effusion on the right side. This is causing significant shortness of breath. We did go for brief walking oximetry the patient did not desaturate although she was visibly dyspneic with a dyspnea score of 7/10. The patient is agreeable to undergo an ultrasound-guided thoracentesis at this time for both diagnostic and therapeutic reasons. She does have a history of breast cancer and she is currently on tamoxifen. She also has a nebulizer and she was started on hypertonic saline for mucus clearance. Will start him Wixela so she can try that for now and also request pulmonary function studies. 02/11/2025 the patient is here for pulmonary follow-up visit. She was in the hospital she did undergo a thoracentesis again. The drain more than a L out. At that time she had much her symptoms with significant shortness of breath and significantly elevated blood pressures. The fluid was negative for any malignant cells. This is the 2nd time she has had and a short period of time. She is wondering why the fluid is coming back so fast. It appears that the lung expanded well post thoracentesis x-ray appears to show expansion of the lung pretty much fully. Will go ahead and refer her to thoracic surgery for video-assisted thoracoscopy with pleural biopsy and also for potential pleurodesis. The patient also will have a PET scan at [facility] soon because of some nodular densities in her history of breast cancer. For now she will continue with the current respiratory regimen. The patient will call or have an x-ray if her symptoms worsen otherwise will have her to try to see thoracic surgery at [facility] as soon as possible. [facility] Medical History (Updated 02/11/25 @ 14:32 by Ronal Hu MD) Pleural effusion Osteoporosis Chronic anemia Anemia Congestive heart failure SIRS (systemic inflammatory response syndrome) Dermatomyositis Acute on chronic heart failure with preserved ejection fraction (HFpEF) Anemia Pancytopenia Long-term current use of intravenous immunoglobulin (IVIG) Plaquenil adverse reaction in therapeutic use Nocturnal cough History of right breast cancer Axillary adenopathy Bacteremia due to Klebsiella pneumoniae Acute hypokalemia UTI (urinary tract infection) Abdominal pain Atrial arrhythmia CHF (congestive heart failure) Acute diastolic (congestive) heart failure Diarrhea Pancolitis Colitis Nonsustained supraventricular tachycardia Port-A-Cath in place Pain in both feet Pedal edema History of COVID-19 Invasive ductal carcinoma of right breast Breast cancer, right Breast calcification, right Encounter to establish care Lumbar degenerative disc disease Hypertension Major depression, chronic Insomnia Anxiety Surgical History Hx of colonoscopy Status post right breast lumpectomy History of arthroscopic knee surgery History of hysterectomy History of section History of cholecystectomy History of gastric bypass History of fusion of cervical spine History of tonsillectomy Family History Mother No problems noted. Father Breast cancer Bone cancer Brother Substance use disorder Paternal Aunt Breast cancer Social History Household Members: Children Household Members Other:: boyfriend and grandchildren Housing: House Are you a primary respiratory care instructor to a significant other at home: No Do you presently have visiting nurse or other home services: No Alcohol intake: former Comment: Pedal Edema and pain- uses cane Patient Tobacco Use Status: Former Tobacco user Tobacco use type: Cigarette e-Cigarette/Vaping Use: Former Use Second Hand Smoke Exposure: No Advance Directives Date on File: 11/28/21 service: No Current occupational status: unemployed and retired Cognitive needs: No Hearing needs: No Vision needs: Yes (glasses) Female Reproductive History Menstrual Age of Menarche: 17 Review of Systems Const Denies chills, Denies fatigue, Denies fever(s) and Denies frequent falls ENT Denies dizziness Card Reports leg edema, Reports dyspnea and Reports dyspnea on exertion Resp Reports cough, Reports dyspnea, Reports dyspnea on exertion and Denies wheezing GI Denies hematochezia and Denies change in stool character Musc Denies abnormal gait, Reports arthralgias, Reports joint swelling and Denies radiating pain into limb Skin/Breast Reports lesions Neuro Denies abnormal gait, Denies dizziness and Denies frequent falls Endo Denies fatigue Aller/Immun Denies wheezing Physical Exam Vital Signs: Last Vital Signs Pulse 56 02/11/25 14:03 BP 148/68 H 02/11/25 14:03 Pulse Ox 99 02/11/25 14:03 Oxygen Delivery Method Room Air 02/11/25 14:03 BMI result Body Mass Index 28.7 Const General: comfortable, no acute distress and alert HEENT Head: Yes normocephalic Neck Neck: Yes trachea midline, Yes supple and Yes no JVD Chest Chest palpation & inspection: normal inspection of the chest Resp Effort & Inspection: normal respiratory effort Auscultation: diminished lung sounds Percussion: dullness Mid: right and Lower: right Cardio Jugular venous distension: no JVD Palpation: normal PMI Rate: regular rate Rhythm: regular rhythm Heart sounds: S1 normal heart sound present, S2 normal heart sound present, no click, no gallops and no murmurs GI Auscultation: normal bowel sounds Neuro General: no focal motor deficits Extrem General: Yes no clubbing, cyanosis or edema Assessment & Plan Assessment & Plan (1) Pleural effusion: Code(s): J90 - Pleural effusion, not elsewhere classified Category: Medical (2) 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: Code(s): C50.919 - Malignant neoplasm of unspecified site of unspecified female breast Category: Medical (3) Dermatomyositis: Code(s): M33.90 - Dermatopolymyositis, unspecified, organ involvement unspecified Category: Medical (4) Acute on chronic heart failure with preserved ejection fraction (HFpEF): Code(s): I50.33 - Acute on chronic diastolic (congestive) heart failure Category: Medical Plan Diuresis as tolerated Referral to Thoracic surgery for VATS, pleural biopsies and pleurodesis repeat CXR after thoracentesis Wixela BID continue hypertonic saline nebs Awaiting PET F/U 2 months Orders: Orders XR chest 2V Today J90 - Pleural effusion, not elsewhere classified Referrals Thoracic/General Surgery Referral J90 - Pleural effusion, not elsewhere classified Coding Level of Care Code Est Pt Level 5 (63002) Diagnoses Pleural effusion J90 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
== END 2025-02-11 14:38 | disposition home or self-care (01) ==
LOC: HO.HPS 13:59
PROVIDERS: PCP Internal Medicine; Visit Provider Hospitalist
DX: J90 Pleural effusion, not elsewhere classified (principal); C50.919 Malignant neoplasm of unspecified site of unspecified female breast; M33.90 Dermatopolymyositis, unspecified, organ involvement unspecified; I50.33 Acute on chronic diastolic (congestive) heart failure
CPT/HCPCS: 99215

== ENCOUNTER → 2025-02-11 13:58 | Outpatient (BNVA) | payer MEDICARE, SELFPAY | PROVIDERS: PCP Internal Medicine; Visit Provider Hospitalist | DX: J90 Pleural effusion, not elsewhere classified (principal); I50.33 Acute on chronic diastolic (congestive) heart failure; C50.911 Malignant neoplasm of unspecified site of right female breast; M33.90 Dermatopolymyositis, unspecified, organ involvement unspecified | CPT/HCPCS: 99212 ==

== ENCOUNTER 2025-02-15 12:23 | Outpatient (AMB) | payer MEDICARE, OTHER, SELFPAY ==
[2025-02-15 12:32] VITALS: BP 122/68; PULSE 51; BMI 28.5
--- NOTE | 2025-02-15 12:32 | MHC.OFFVIS ---
Vital Signs 02/15/25 12:32 Height 5 ft 3 in Weight 160 lb 14.999 oz BMI 28.5 BP 122/68 Blood Pressure Location Lt brachial Position Sitting Pulse 51 Intake Visit Reasons: 6 mth f/up/ Preop clear colonoscopy Intake Note: 6 month follow-up and also pre-op colonoscopy feeling good Allergies No Known Allergies Allergy (Verified 02/17/25 17:13) HPI Comments Details: Kate comes for follow-up for heart failure management. Multiple medical issues including ongoing chemotherapy for her cancer. She has somewhat dejected by her overall medical issues. Currently taking her increase diuretic regimen at 40 mg of furosemide twice a day because of increased leg swelling and heart failure syndrome while in [place]. She is taking her inhaler therapy for COPD/asthma/bronchitis. Blood pressures been generally well controlled. She is doing well. She has lost some weight. She is walking around and having NYHA class 2 symptoms. No overt signs of fluid overload or leg edema or abdominal distension. No chest pain syndrome. [facility] Medical History Pleural effusion Osteoporosis Chronic anemia Anemia Congestive heart failure SIRS (systemic inflammatory response syndrome) Dermatomyositis Acute on chronic heart failure with preserved ejection fraction (HFpEF) Anemia Pancytopenia Long-term current use of intravenous immunoglobulin (IVIG) Plaquenil adverse reaction in therapeutic use Nocturnal cough History of right breast cancer Axillary adenopathy Bacteremia due to Klebsiella pneumoniae Acute hypokalemia UTI (urinary tract infection) Abdominal pain Atrial arrhythmia CHF (congestive heart failure) Acute diastolic (congestive) heart failure Diarrhea Pancolitis Colitis Nonsustained supraventricular tachycardia Port-A-Cath in place Pain in both feet Pedal edema History of COVID-19 Invasive ductal carcinoma of right breast Breast cancer, right Breast calcification, right Encounter to establish care Lumbar degenerative disc disease Hypertension Major depression, chronic Insomnia Anxiety Surgical History Hx of colonoscopy Status post right breast lumpectomy History of arthroscopic knee surgery History of hysterectomy History of section History of cholecystectomy History of gastric bypass History of fusion of cervical spine History of tonsillectomy Family History Mother No problems noted. Father Breast cancer Bone cancer Brother Substance use disorder Paternal Aunt Breast cancer Social History Household Members: Children Household Members Other:: boyfriend and grandchildren Housing: House Are you a primary direct care professional to a significant other at home: No Do you presently have visiting nurse or other home services: No Alcohol intake: former Comment: Pedal Edema and pain- uses cane Patient Tobacco Use Status: Former Tobacco user Tobacco use type: Cigarette Smoked in Last 30 Days: No e-Cigarette/Vaping Use: Former Use Second Hand Smoke Exposure: No Use of substances other than those prescribed or required for medical reasons: No Advance Directives: Yes Advance Directives on File: Yes Advance Directives Date on File: 11/28/21 Do you have a plan to hurt others: No Plan service: No Current occupational status: unemployed and retired Cognitive needs: No Hearing needs: No Vision needs: Yes (glasses) Female Reproductive History Menstrual Age of Menarche: 17 Review of Systems Const Denies chills, Denies fatigue, Denies fever(s), Denies frequent falls, Denies weakness, Denies weight gain and Denies weight loss ENT Denies dizziness Card Denies chest pain, Denies leg edema, Denies lightheadedness, Denies palpitations, Denies dyspnea, Denies dyspnea on exertion, Denies orthopnea and Denies other (loss of consciousness) Resp Denies cough, Denies dyspnea and Denies dyspnea on exertion GI Denies hematochezia and Denies change in stool character Musc Denies abnormal gait, Denies muscle weakness, Denies numbness, Denies radiating pain into limb and Denies tingling Neuro Denies abnormal gait, Denies dizziness, Denies frequent falls, Denies numbness, Denies tingling and Denies weakness Endo Denies fatigue and Denies palpitations Physical Exam Vital Signs: Last Vital Signs Pulse 51 02/15/25 12:32 BP 122/68 02/15/25 12:32 BMI result Body Mass Index 28.5 Const General: cooperative, comfortable, no acute distress, alert and awake Nutritional Appearance: obese Limitations: ambulation with cane Neck Neck: Yes trachea midline, Yes supple and Yes no JVD Resp Effort & Inspection: normal respiratory effort Auscultation: clear to auscultation bilaterally Cardio Jugular venous distension: no JVD Palpation: normal PMI Rate: regular rate Rhythm: regular rhythm Heart sounds: S1 normal heart sound present, S2 normal heart sound present, no click, no gallops and no murmurs GI Auscultation: normal bowel sounds Neuro General: no focal motor deficits Extrem General: Yes no clubbing, cyanosis or edema Assessment & Plan Assessment & Plan (1) CHF (congestive heart failure): Code(s): I50.9 - Heart failure, unspecified Category: Medical Plan: Heart failure preserved ejection fraction, clinically today appears to be euvolemic and well compensated. Currently on high dose Lasix therapy. Management of heart failure was discussed. Increase diuretic therapy as need be with weight based management. Continue Jardiance therapy. Continue to optimize pulmonary function. Encouraged to maintain activity level as tolerated. Daily weight monitoring avoidance salt loading was discussed. She understands this well. Continue aggressive blood pressure control. Continue electrolyte replacement with potassium with maintaining potassium level above 4. (2) Aortic stenosis: Code(s): I35.0 - Nonrheumatic aortic (valve) stenosis Category: Medical Plan: Aortic stenosis which is mild. No interventions required per se for the same. Continue monitor clinically. Risk factor modification with aggressive management of lipids with LDL less than 100 mg/dL and blood pressure at less than 130/84. Follow-up echocardiogram on annual basis. Will follow up in the clinic in 6 months time, sooner PRN. Thank you for allowing me to partake in her care Coding Level of Care Code Est Pt Level 4 (04121) Diagnoses CHF (congestive heart failure) I50.9 Aortic stenosis I35.0
--- OUTSIDE RECORDS SUMMARY | 2025-02-15 20:27 | XMS_ITS | Clinical Summary ---
Author Organization [facility] Address [address] [place] [address] Phone Care Team Providers Care Freight Team Associate Name Role Phone Leslie Washington NP Primary Care Provider [phone] Allergies No known active allergies Medications DULoxetine [...] 1,000 mcg by mouth daily. Active vitamins A,C,Q-beki-qhnqew (PRESERVISION AREDS) 14,320-226-200 fqoi-ut-xdge Cap Take 1 capsule by mouth 2 [...] Maintenance Insurance HEALTH SAFETY NET PARTIAL MEDIC[facility] [place] [address] HEALTH SAFETY NET PARTIAL MEDICARE [employer] Member Subscriber Plan / Payer (Ef fective 2022-) Name:Kate Almaguer Member ID:[id number] Relation to Subscriber:Self Name:Kate Almaguer Subscriber ID:[id number] Payer ID:[id number] Group ID:Not on file Type:Medicare Address: [place] [id number] [facility] MEDICARE SUPPLEMENT [facility] PARTIAL MEDICARE [employer]RO[employer] [facility] MEDICARE SUPPLEMENT [facility] [place] [address] [facility] SAFETY NET PARTIAL MEDICARE [facility] Member Subscriber Plan / Payer (Ef fective 2022-Present) Name:Kate Almaguer Member ID:[id number] Relation to Subscriber:Self Name:Kate Almaguer Subscriber ID:[id number] Payer ID:[id number] Group ID:Not on file Type:Medicare Address: [address] MEDICARE SUPPLEMENT HEALTH SAFETY NET PARTIAL MEDICARE [facility] MEDICARE SUPPLEMENT [facility] [place] [address] HEALTH SAFETY NET PARTIAL MEDICARE [place] [facility] MEDICARE SUPPLEMENT [facility] [place] [address] Care Teams Freight Team Associate Relationship Specialty Start Date End Date Leslie Washington NP [address] [place] [address] [place] [address] PCP - General 10/05/21 Additional Source Comments The information contained in this document represents components of the legal health record. It is not the complete legal health record.[facility]
== END 2025-02-15 12:51 | disposition home or self-care (01) ==
LOC: HO.HCS 12:24
PROVIDERS: PCP Internal Medicine; Visit Provider Internal Medicine Cardiovascular Disease
DX: I50.9 Heart failure, unspecified (principal); I35.0 Nonrheumatic aortic (valve) stenosis
CPT/HCPCS: 99214

== ENCOUNTER → 2025-02-15 12:23 | Outpatient (BNVA) | payer MEDICARE, SELFPAY | PROVIDERS: PCP Internal Medicine; Visit Provider Internal Medicine Cardiovascular Disease | DX: I35.0 Nonrheumatic aortic (valve) stenosis (principal); I50.9 Heart failure, unspecified | CPT/HCPCS: 99212 ==

== ENCOUNTER 2025-02-17 17:03 | Emergency (ER) | payer MEDICARE, SELFPAY ==
--- OUTSIDE RECORDS SUMMARY | 2025-02-10 15:37 | XMS_ITS | Encounter Summary ---
Author Organization [facility] Address [address] [place] [address] Care Team Providers Care Chemist Enzymes Name Role Phone Unavailable Primary Care Provider Unavailabl e Reason for Referral * Imaging (Routine) - Closed Specialty Diagnoses / Procedures Referred By Tristen wells Referred To Contact Radiology Diagnoses Other nonspecific abnormal finding of lung field Solitary pulmonary nodule Procedures PET CT Skull to Mid Thigh Initial Kasandra Pinto MD [address] [place] [address] Phone: tel: fax: [facility] Referral ID Status Reason Start Date Expiration Date Visits Re quested Visits Authorized [id number] Closed 02/10/2025 02/10/2026 1 1 Reason for Visit * Imaging (Routine) - Closed Specialty Diagnoses / Procedures Referred By Tristen wells Referred To Contact Radiology Diagnoses Other nonspecific abnormal finding of lung field Solitary pulmonary nodule Procedures PET CT Skull to Mid Thigh Initial Kasandra Pinto MD [address] [place] [address] Phone: tel: fax: [facility] Referral ID Status Reason Start Date Expiration Date Visits Re quested Visits Authorized [id number] Closed 02/10/2025 02/10/2026 1 1 Encounter Details Date Type Department Care Team (Latest Contact Info) Description 02/10/2025 3:37 PM EST Hospital Encounter [facility] PET Scan [address] [place] [address] Other nonspecific abnormal finding of lung field; Solitary pulmonary nodule Social History Tobacco Use Types Packs/Day Years Used Date Smoking Tobacco: Never Assessed Comments Unknown Sex and Gender Information Value Date Recorded Sex Assigned at Not on file Legal Sex Female 10:52 AM EDT Gender Identity Not on file Sexual Orientation Not on file documented as of this encounter Plan of Treatment Upcoming Encounters Date Type Department Care Team (Late st Contact Info) Description 02/26/2025 8:30 AM EST Office Visit Pulmonology - [address] [place] [address] Elle Bernal MD [address] [place] [phone] documented as of this encounter Procedures Procedure Name Priority Date/Time Associated Diagnosis Comments PET CT SKULL TO MID THIGH INITIAL Routine 02/10/2025 5:59 PM EST Other nonspecific abnormal finding of lung field Solitary pulmonary nodule documented in this encounter Results * PET CT Skull to Mid Thigh Initial (02/10/2025 5:59 PM EST) Anatomical Region Laterality Modality Body Radiographic Surekha ging 02/17/2025 4:18 PM EST Impressions 02/17/2025 4:48 PM EST No abnormal metabolic activity within the anterior right upper lobe peripheral parenchymal attenuation, similar to the prior study. No pattern of activity to suggest metastatic disease. Findings consistent with dermatomyositis. -------- FINAL REPORT -------- Dictated By: Beverley Diaz Dictated Date: 02/17/2025 16:18 ET Assigned Physician: Beverley Diaz Reviewed and Electronically Signed By: Beverley Diaz Signed Date: 02/17/2025 16:48 ET Workstation ID: [id number] Transcribed By: Self Edit Transcribed Date: 02/17/2025 16:18 ET Narrative 02/17/2025 4:48 PM EST INDICATION: Breast carcinoma, pulmonary nodule, dermatomyositis, subsequent treatment strategy Prior relevant studies: Multiple prior PET scans most recent from November 03, 2024 Radiopharmaceutical: 11.4 mCi of F-18 FDG IV. Blood glucose: 103 mg/dl. PROCEDURE: Routine body FDG PET-CT imaging was performed from the skull base to the mid thighs and reconstructed in axial, coronal, and sagittal planes at the computer workstation with fused data from both the PET imaging study and attenuation correction CT. The CT portion of the examination was done strictly for attenuation correction and is not a true diagnostic CT examination. CTDI: 12.93 mGy FINDINGS: HEAD AND NECK: No abnormal FDG activity. THORAX: No abnormal FDG activity associated with peripheral opacity anteriorly within the right upper lobe with SUV max of 1.4. No FDG avid thoracic nodes. Resolved small left pleural effusion with residual moderate right pleural effusion. ABDOMEN/PELVIS: FDG activity along the distal stomach is new from the prior study and likely represents a physiological activity or possibly related to gastritis with SUV max of 7.1. Status post gastric bypass procedure. No FDG avid lymphadenopathy in the abdomen or pelvis. MUSCULOSKELETAL: Mild increased FDG activity noted along skin thickening within the right breast with SUV max up to 2.3 and a lesser degree inferiorly within the left breast. No significant muscular, joint or periarticular activity. Soft tissue infiltrative changes noted within the abdomen especially inferiorly and along the lower back with calcifications with minimal activity activity consistent with provided history of dermatomyositis. Persistent mild focal FDG activity along the upper aspect of the left semimembranosus muscle with SUV max of 2.3 likely related to prior injury with partial fatty atrophy of the muscle inferior to this level. Procedure Note Beverley Diaz MD - 02/17/2025 INDICATION: Breast carcinoma, pulmonary nodule, dermatomyositis,subsequent treatment strategy Prior relevant studies: Multiple prior PET scans most recent from 2024 Radiopharmaceutical: 11.4 mCi of F-18 FDG IV. Blood glucose: 103 mg/dl. PROCEDURE: Routine body FDG PET-CT imaging was performed from the skullbase to the mid thighs and reconstructed in axial, coronal, and sagittalplanes at the computer workstation with fused data from both the PETimaging study and attenuation correction CT. The CT portion of theexamination was done strictly for attenuation correction and is not a truediagnostic CT examination. CTDI: 12.93 mGy FINDINGS: HEAD AND NECK: No abnormal FDG activity. THORAX: No abnormal FDG activity associated with peripheral opacityanteriorly within the right upper lobe with SUV max of 1.4. No FDG avid thoracic nodes. Resolved small left pleural effusion with residual moderate right pleuraleffusion. ABDOMEN/PELVIS: FDG activity along the distal stomach is new from theprior study and likely represents a physiological activity or possiblyrelated to gastritis with SUV max of 7.1. Status post gastric bypassprocedure. No FDG avid lymphadenopathy in the abdomen or pelvis. MUSCULOSKELETAL: Mild increased FDG activity noted along skin thickeningwithin the right breast with SUV max up to 2.3 and a lesser degreeinferiorly within the left breast. No significant muscular, joint or periarticular activity. Soft tissue infiltrative changes noted within the abdomen especiallyinferiorly and along the lower back with calcifications with minimalactivity activity consistent with provided history of dermatomyositis. Persistent mild focal FDG activity along the upper aspect of the leftsemimembranosus muscle with SUV max of 2.3 likely related to prior injurywith partial fatty atrophy of the muscle inferior to this level. IMPRESSION: No abnormal metabolic activity within the anterior right upper lobeperipheral parenchymal attenuation, similar to the prior study. No pattern of activity to suggest metastatic disease. Findings consistent with dermatomyositis. -------- FINAL REPORT -------- Dictated By: Beverley Diaz Dictated Date: 02/17/2025 16:18 ET Assigned Physician: Beverley Diaz Reviewed and Electronically Signed By: Beverley Diaz Signed Date: 02/17/2025 16:48 ET Workstation ID: [id number] Transcribed By: Self Edit Transcribed Date: 02/17/2025 16:18 ET Kasandra Pinto MD [facility] PROCEDURES Final Result documented in this encounter Visit Diagnoses Diagnosis Other nonspecific abnormal finding of lung field Solitary pulmonary nodule documented in this encounter Administered Medications Inactive Administered Medications - up to 3 most recent administrations Medication Order MAR Action Action Date Dose Rate Site F-18 FDG pet diag radio-isotope injection 11.4 millicurie 11.4 millicurie, intravenous, Once in imaging, Starting on Sat02/10/25 at 1615, For 1 dose Given 02/10/2025 4:09 PM EST 11.4 millicuries Right Antecubital documented in this encounter Orders Medications Ordered That All ht Not Have Been Administered Count Last Ordered Date First Ordered Date F-18 FDG pet diag radio-isot ope injection 11.4 millicurie 1 02/10/2025 documented in this encounter
--- NOTE | ~2025-02-17 | CT_ITS ---
CLINICAL HISTORY: head injury, fall, pain CT Head without contrast Comparison: CT/SR - CT HEAD/BRAIN WO IV CON - 06/21/24 19:57 EDT Findings: No large vessel territory infarct. No acute intracranial hemorrhage. No mass effect, midline shift, or herniation. The pituitary gland and sella are unremarkable. The cerebellar tonsils are appropriately positioned. Orbits: The lenses have been replaced. Paranasal sinuses: Mucous retention cyst in the right maxillary sinus. The mastoid air cells are well aerated. Left parietal soft tissue hematoma measuring up to 9 mm in thickness. No underlying acute displaced calvarial fracture. Impression: New subcutaneous hematoma measuring 9 mm in thickness of the left parietal scalp . No underlying acute displaced calvarial fracture. This document has been electronically signed by: Clarissa Molina MD on 02/17/2025 20:08:41
[2025-02-17 17:03] VITALS: BP 171/80; PULSE 78; O2SAT 100
[2025-02-17 17:10] VITALS: BP 146/55; PULSE 64; RESP 16; TEMP 36.6; O2SAT 98; BMI 31.4
[2025-02-17 17:14] VITALS: BP 146/55; PULSE 64; RESP 16; TEMP 36.6; O2SAT 98
--- NOTE | 2025-02-17 17:18 | PC.NURSE ---
PAtient RYANA from home Patient was making cookies at home when she stood up from her chair and fell hitting the left side of her head Denies LOC, dizziness, thinners, SOB, vision changes. Eyes PERRLA Patient in soft collar by EMS VSS and up to date Lac to left side of head covered by bandage Patient awaiting CT scans Plan of care on going
--- NOTE | 2025-02-17 17:49 | ED.GENADULT ---
HPI - General Adult General Chief complaint: Fall Stated complaint: Fall, + HS & Bruise to head with swelling Time Seen by Provider: 02/17/25 17:49 History of Present Illness ED Provider: Denise HARMAN narrative: The patient is a 70-year-old female who was in her kitchen making cookies. She was sitting down trying to fix the machine. She then stood up an after she stood up she lost her balance and fell and struck her head on the tile floor. She had some bleeding from her scalp. An ambulance was called and she was brought to the hospital. The patient says that she has a history of dermatomyositis and that sometimes she can feel unsteady. She suspects that she stood up too fast and simply lost her balance and fell over. Other than the injury to her head she does not think she sustained any other injuries. She has no neck pain. She has no chest pain. She had no abdominal pain. She has no new pains in her arms or her legs. She says that she has chronic pains in her right leg but she does not feel that she has any new injuries in her right leg. She is not on anticoagulation. Related Data Home Medications ?Medication ?Instructions ?Recorded ?Confirmed cetirizine 10 mg tablet 20 mg PO DAILY 09/09/24 02/03/25 tamoxifen 20 mg tablet 20 mg PO DAILY 09/09/24 02/03/25 potassium chloride 20 mEq 20 meq PO BID 11/26/24 02/03/25 tablet,extended release empagliflozin 10 mg tablet 10 mg PO DAILY 01/15/25 02/03/25 (Jardiance) fluticasone furoate 200 1 ea inhalation DAILY 01/15/25 02/03/25 mcg-vilanterol 25 mcg/dose inhalation powder (Breo Ellipta) Previous Rx's ?Medication ?Instructions ?Recorded clobetasol 0.05 % topical ointment 1 appl topical BID #60 grams 03/05/24 citalopram 20 mg tablet 20 mg PO DAILY #30 tabs 07/13/24 furosemide 40 mg tablet 40 mg PO BID #180 tabs 12/22/24 clonidine HCl 0.2 mg tablet 0.2 mg PO BEDTIME for anxiety #90 01/07/25 tabs mycophenolate mofetil 500 mg tablet 1,000 mg (2 x 500 mg) PO BID 90 02/03/25 days #360 tabs Allergies Allergy/AdvReac Type Severity Reaction Status Date / Time No Known Allergies Allergy Verified 02/17/25 17:13 Review of Systems Review of Systems: Yes all other systems are reviewed and are negative [facility] Past Medical History Medical History (Updated 02/18/25 @ 00:00 by Macho Nixon) Pleural effusion Osteoporosis Chronic anemia Anemia Congestive heart failure SIRS (systemic inflammatory response syndrome) Dermatomyositis Acute on chronic heart failure with preserved ejection fraction (HFpEF) Anemia Pancytopenia Long-term current use of intravenous immunoglobulin (IVIG) Plaquenil adverse reaction in therapeutic use Nocturnal cough History of right breast cancer Axillary adenopathy Bacteremia due to Klebsiella pneumoniae Acute hypokalemia UTI (urinary tract infection) Abdominal pain Atrial arrhythmia CHF (congestive heart failure) Acute diastolic (congestive) heart failure Diarrhea Pancolitis Colitis Nonsustained supraventricular tachycardia Port-A-Cath in place Pain in both feet Pedal edema History of COVID-19 Invasive ductal carcinoma of right breast Breast cancer, right Breast calcification, right Encounter to establish care Lumbar degenerative disc disease Hypertension Major depression, chronic Insomnia Anxiety Surgical History Hx of colonoscopy Status post right breast lumpectomy History of arthroscopic knee surgery History of hysterectomy History of section History of cholecystectomy History of gastric bypass History of fusion of cervical spine History of tonsillectomy Family History Family History Mother No problems noted. Father Breast cancer Bone cancer Brother Substance use disorder Paternal Aunt Breast cancer Social History Social History Household Members: Children Household Members Other:: boyfriend and grandchildren Housing: House Are you a primary manager home healthcare to a significant other at home: No Do you presently have visiting nurse or other home services: No Alcohol intake: former Comment: Pedal Edema and pain- uses cane Patient Tobacco Use Status: Former Tobacco user Tobacco use type: Cigarette Smoked in Last 30 Days: No e-Cigarette/Vaping Use: Former Use Second Hand Smoke Exposure: No Use of substances other than those prescribed or required for medical reasons: No Advance Directives: Yes Advance Directives on File: Yes Advance Directives Date on File: 11/28/21 Do you have a plan to hurt others: No Plan service: No Current occupational status: unemployed and retired Cognitive needs: No Hearing needs: No Vision needs: Yes (glasses) Physical Exam ED Vital Signs: Vital Signs - 24 hr 02/17/25 17:10 02/17/25 17:14 02/17/25 17:14 Temperature 97.8 F 97.8 F 97.8 F Pulse Rate 64 64 64 Respiratory Rate 16 16 16 Blood Pressure 146/55 H 146/55 H 146/55 H Pulse Oximetry 98 98 98 Oxygen Delivery Method Room Air Room Air 02/17/25 19:19 02/17/25 20:07 02/17/25 21:14 Temperature 98.1 F 97.7 F Pulse Rate 71 60 63 Respiratory Rate 16 16 16 Blood Pressure 128/53 L 132/55 L 135/63 Pulse Oximetry 100 98 97 Oxygen Delivery Method Room Air Room Air Room Air BMI result Body Mass Index 31.4 Const Other: The patient is a 70-year-old woman who was awake and alert with a normal mental status. She has some obvious soft tissue swelling to the left temporoparietal scalp. Otherwise the patient does not appear obviously injured. HENMT Other: Face is symmetrical. Mucous membranes moist. No raccoon eyes. No hernandez sign. There is a large left scalp hematoma. there may be some very small abrasions but there was no active bleeding or laceration. Eyes Other: Pupils are round equal, conjunctivae are clear, extraocular movements intact Neck Other: No posterior C-spine tenderness. No pain with range of motion of the neck. The C-spine is clinically clear. Resp Effort & Inspection: normal respiratory effort Auscultation: clear to auscultation bilaterally Cardio Rate: regular rate Rhythm: regular rhythm Heart sounds: S1 normal heart sound present and S2 normal heart sound present GI Other: Abdomen is soft and nontender Skin Other: there is a large soft tissue hematoma to the left temporoparietal scalp. No full-thickness injury. No suturable laceration. No active bleeding. The skin is otherwise dry and unremarkable. Neuro General: tone normal, moves all extremities, no focal motor deficits and CN's II-XI intact bilaterally Extrem Other: No deformities to the extremities. The patient is able to move her extremities. she seems to have some difficulty moving her right leg but she says this is chronic. Medications Administered Discontinued Medications Generic Name Dose Route Start Last Admin Trade Name Tra PRN Reason Stop Dose Admin Acetaminophen 975 mg 02/17/25 18:57 02/17/25 19:17 Acetaminophen 325 Mg Tablet PO 02/17/25 18:58 975 mg ONCE ONE Administration Medical Decision Making Medical Decision Making [facility] Narrative: The patient is a 70-year-old female who sustained a mechanical fall in her kitchen after she stood up From sitting and lost her balance. she sustained a head injury but she denies any other injuries. Her C-spine is clinically clear. She has some chronic pains in her right leg but she does not feel she has any new pain or injury to the right leg. A noncontrast CT scan of the head shows a scalp hematoma but no other findings. The patient was reassured that she seems to have a scalp hematoma but no more dangerous injuries. She seems appropriate for discharge. Acetaminophen as needed for pain. Discharge Plan Discharge Clinical Impression: Fall, Head injury, Contusion of scalp Patient Disposition: Home, Self-Care Instructions: Scalp Contusion in Adults (ED) Additional Instructions: Your CAT scan shows the large a scalp contusion that you have but there is no internal injury or skull fracture. Please use ice on your swollen scalp. Rest and take it easy for the next couple of days. Please follow up with your regular doctor if you have any concerning ongoing symptoms. Return to the emergency room if acutely worse. Prescriptions: No Action clobetasol 0.05 % ointment 1 appl topical BID Qty: 60 3RF Rx Instructions: Do Not apply on face or sensitive areas such as your armpits, genitals or groin citalopram 20 mg Tablet 20 mg PO DAILY Qty: 30 1RF furosemide 40 mg tablet 40 mg PO BID Qty: 180 3RF clonidine HCl 0.2 mg tablet 0.2 mg PO BEDTIME Qty: 90 1RF potassium chloride 20 mEq tablet extended release 20 meq PO BID Jardiance 10 mg tablet 10 mg PO DAILY fluticasone furoate-vilanterol [Breo Ellipta] 200-25 mcg/dose blister with device 1 ea INHALATION DAILY cetirizine 10 mg tablet 20 mg PO DAILY tamoxifen 20 mg tablet 20 mg PO DAILY mycophenolate mofetil 500 mg tablet 1,000 mg PO BID 90 Days Qty: 360 1RF Referrals: Gerald Vance MD [Physician, Internal Medicine] Interventions: ED Discharge Assessment Last Done: 02/17/25 21:14 Discharge Date/Time: 02/17/25 21:15 Print Language: Italian
[2025-02-17 19:19] VITALS: BP 128/53; PULSE 71; RESP 16; O2SAT 100
[2025-02-17 20:07] VITALS: BP 132/55; PULSE 60; RESP 16; TEMP 36.7; O2SAT 98
[2025-02-17 21:14] VITALS: BP 135/63; PULSE 63; RESP 16; TEMP 36.5; O2SAT 97
--- OUTSIDE RECORDS SUMMARY | 2025-02-18 00:55 | XMS_ITS | Clinical Summary ---
Author Organization [facility] Address [address] [place] [address] Phone Care Team Providers Care Driver Guide Name Role Phone Gerald Vance MD Primary Care Provider [phone] Encounters Date Type Department Care Team Description 02/10/2025 3:37 PM EST Hospital Encounter [facility] PET Scan [address] [place] [address] Other nonspecific abnormal finding of lung field; Solitary pulmonary nodule from Last 3 Months Social History Tobacco Use Types Packs/Day Years Used Date Smoking Tobacco: Never Assessed Comments Unknown Sex and Gender Information Value Date Recorded Sex Assigned at Not on file Legal Sex Female 10:52 AM EDT Gender Identity Not on file Sexual Orientation Not on file Plan of Treatment Upcoming Encounters Date Type Department Care Team (Late st Contact Info) Description 02/26/2025 8:30 AM EST Office Visit Pulmonology - [place] [address] [facility] [address] [place] [phone] Elle Bernal MD [address] [place] [phone] Health Maintenance Due Date Last Done Comments Breast Cancer Screening 1955 Colorectal Cancer Screening: Colonoscopy 1955 DTaP,Tdap,and Td Vaccines (1 - Tdap) 01/17/1976 Depression Screening 03/11/2024 Falls Risk Assessment 11/02/2024 Hepatitis C Screening 11/02/2024 Osteoporosis Screening (Bone Density Screening) 11/02/2024 Social Influencers of Health Screening 11/02/2024 COVID-19 Vaccine (3 - Mixed Product risk series) 01/15/2025 12/18/2024, 06/10/2023 Pneumococcal Vaccine: 50+ Years Completed 01/01/2023 RSV Immunization Adult Patients Completed 06/10/2023 Influenza Vaccine Completed 12/03/2024, 04/04/2023, 12/31/2021 Zoster Vaccines Completed 12/18/2024, 06/10/2023 HIB Vaccines Aged Out No longer [...] finding of lung field Solitary pulmonary nodule from Last 3 Months Results * PET [...] Signed Date: 02/17/2025 16:48 ET Workstation ID: [id number] Transcribed By: Self Edit Transcribed Date: 02/17/2025 [...] Signed Date: 02/17/2025 16:48 ET Workstation ID: [id number] Transcribed By: Self Edit Transcribed Date: 02/17/2025 16:18 ET Kasandra Pinto MD [facility] [place] PROCEDURES Final Result from Last 3 Months Insurance MEDICARE Care Teams Driver Guide Relationship Specialty Start Date End Date Gerald Vance MD [facility] [address] [place] [address] [address] [place] [address] PCP - General Internal Medicine 02/17/25
--- OUTSIDE RECORDS SUMMARY | 2025-02-18 00:55 | XMS_ITS | Clinical Summary ---
Author Organization [facility] Address [address] [place] [address] Phone Care Team Providers Care Clothing Pattern Preparer Name Role Phone Leslie Washington NP Primary Care Provider [phone] Allergies No known active allergies Medications DULoxetine [...] 1,000 mcg by mouth daily. Active vitamins A,C,X-juff-dkxxlo (PRESERVISION AREDS) 14,320-226-200 pkpv-ml-vvmp Cap Take 1 capsule by mouth 2 [...] Maintenance Insurance HEALTH SAFETY NET PARTIAL MEDIC[facility] SUPPLEMENT [facility] Address: [facility] [address] [facility] [place] [address] [place] [address] HEALTH SAFETY NET PARTIAL MEDICARE [employer]ILROAD Member Subscriber Plan / Payer (Ef fective 2022-) Name:Kate Almaguer Member ID:[id number] Relation to Subscriber:Self Name:Kate Almaguer Subscriber ID:[id number] Payer ID:[id number] Group ID:Not on file Type:Medicare Address: [place] [id number] [facility] MEDICARE SUPPLEMENT [facility] Address: [facility] [address] [place] [address] FORMERLY [facility] PARTIAL MEDICARE [employer] [facility] MEDICARE SUPPLEMENT [facility] [place] [address] [facility] SAFETY NET PARTIAL MEDICARE [facility] Member Subscriber Plan / Payer (Ef fective 2022-Present) Name:Kate Almaguer Member ID:[id number] Relation to Subscriber:Self Name:Kate Almaguer Subscriber ID:[id number] Payer ID:[id number] Group ID:Not on file Type:Medicare Address: [address] MEDICARE SUPPLEMENT HEALTH SAFETY NET PARTIAL MEDICARE [facility]IC[facility] SUPPLEMENT [facility] [place] [address] HEALTH SAFETY NET PARTIAL MEDICARE [place] [facility] MEDICARE SUPPLEMENT [facility] [place] [address] Care Teams Clothing Pattern Preparer Relationship Specialty Start Date End Date Leslie Washington NP [address] [place] [address] [place] [address] PCP - General 10/05/21 Additional Source Comments The information contained in this document represents components of the legal health record. It is not the complete legal health record.[facility]
--- OUTSIDE RECORDS SUMMARY | 2025-02-18 00:55 | XMS_ITS | CCD ---
Author Name Interface, [id number] lity Address [place] [address] Organization [facility] Address [place] breakthrough[place] [address] Care Team Providers Care Chip Tester Name Role Phone Princess PEREZ, Lay Bernal Unavaillounan ble Allergies and Adverse Reactions Medication/Group Name [...]
== END 2025-02-17 21:15 | disposition home or self-care (01) ==
PROVIDERS: Emergency Provider Emergency Medicine
DX: S00.03XA Contusion of scalp, initial encounter (principal); S09.90XA Unspecified injury of head, initial encounter; W18.39XA Other fall on same level, initial encounter; Y93.G3 Activity, cooking and baking; Y92.010 Kitchen of single-family (private) house as the place of occurrence of the external cause; Y99.8 Other external cause status
CPT/HCPCS: 70450; 99284